=== PATIENT | female | born 1945 | race African-American/Black ===

== ENCOUNTER 2016-03-24 16:07 | Emergency (ER) | payer MEDICARE, BC ==
[~2016-03-24 16:07] MED LIST: /METO5TA PO; /QUIN20TA OR; ALTE2VL IV; AMLO10TA2 PO; AMLO5TAB OR; ASPI81TA83; ASPI81TA83 OR; ASPI81TA85 PO; AVEL1TAB PO; BACITAB3 PO; BYSTOLIC OR; CALC12502 OR; CALC1TAB30 PO; CALC600T10 PO; CALCI50TA PO; CARV12.5 OR; CARV12.5 PO; CARV25TA OR; CARV6.25 PO; CO Q-10 OR; CO Q1CAP PO; COENZYME Q 10; COLA100C2 OR; CORE12.5; CORE12.5 PO; DARV100T; DEMA20TA; DOCU100C PO; EPOG4000 IV; FLUC10TA PO; FOLI1TAB; FOLI1TAB OR; HAIR1CHW PO; HAIR1TAB5 PO; HEPA1010VL INJ; HUMA100I5 SC; HUMULIN 70/30; HYDR-4266 PO; HYDR25TA PO; INSUHUMDS SC; INSULIN 70/30 SC; INSULIN 70/30 SUBQ; INSULIN ASPART SC; IRON325T3 PO; ISOS30TA4 PO; LOSA100T36 PO; MAG400TA PO; METOPROLOL TARTRATE; MICO7CR PV; MIRA255PW PO; MULTIVIT; MULTIVIT OR; NATU400T PO; NEPH1CAP4 PO; OMEP20CA3 PO; OS-CAL; PERCOCET PO; POTA20TA PO; PRAV80TA2 PO; PRAVASTATIN OR; PRIL20CA; PRIL20CA OR; PROC IJ; ROZE8TAB9 PO; SENO8.6T9 PO; SPIR25TA2 OR; TRAM50TA2 PO; TRAMADOL; TYLE325T5 PO; VITA-130 PO; VITA10002 PO; VITA500C24 PO; VITA500T; VITA500T OR; VITA500T88 PO; VITMTA PO; ZOCO10TA; [UNRECOGNIZED DRUG - CODE]; [UNRECOGNIZED DRUG - CODE] OR; calcitrol PO; insulin aspart SC; novolog 70/30 SC
[2016-03-24 17:30] LABS: BASO % 0.2 % (0.0-1.0); EOS # 0.2 K/mm3 (0.0-0.50); EOS % 2.3 % (0.0-3.0); LARGE UNSTAINED CELL # 0.1 K/mm3 (0.0-0.4); LARGE UNSTAINED CELL % 1.9 % (0.0-4.0); LYMPH # 0.9 K/mm3 (1.5-4.5); LYMPH % 12.6 % (24.0-44.0); MEAN CORPUSCULAR HEMOGLOBIN 27.2 pg (27.0-33.0); MEAN CORPUSCULAR HGB CONC 30.1 g/dl (32.0-36.5); MEAN CORPUSCULAR VOLUME 90.3 fl (80.0-96.0); MONO # 0.3 K/mm3 (0.0-0.8); NEUTROPHILS # 5.5 K/mm3 (1.8-7.7); PLATELET COUNT, AUTOMATED 108 k/mm3 (150-450); RED CELL DISTRIBUTION WIDTH 18.2 % (11.5-14.5)
[2016-03-24 17:39] LABS: INR 0.9
[2016-03-24 17:56] LABS: ALBUMIN 3.5 GM/DL (3.2-5.2); ALBUMIN/GLOBULIN RATIO 0.92 (1.00-1.93); ALKALINE PHOSPHATASE 88 U/L (45-117); ALT/SGPT 21 U/L (12-78); AMYLASE 192 U/L (25-115); ANION GAP 8 MEQ/L (8-16); AST/SGOT 17 U/L (15-37); BILIRUBIN,DIRECT < 0.1 MG/DL (0.0-0.2); BILIRUBIN,TOTAL 0.2 MG/DL (0.2-1.0); BLOOD UREA NITROGEN 36 MG/DL (7-18); CALCIUM LEVEL 9.1 MG/DL (8.8-10.2); CARBON DIOXIDE LEVEL 32 MEQ/L (21-32); CHLORIDE LEVEL 99 MEQ/L (98-107); CREATININE FOR GFR 7.48 MG/DL (0.55-1.02); GLOMERULAR FILTRATION RATE 6.9 (>39); GLUCOSE, FASTING 193 MG/DL (83-110); POTASSIUM SERUM 4.8 MEQ/L (3.5-5.1); SODIUM LEVEL 139 MEQ/L (136-145); TOTAL PROTEIN 7.3 GM/DL (6.4-8.2)
--- NOTE | 2016-03-24 19:44 | EDDOCDS ---
Physician Documentation [facility] Name: Bree Acosta Age: 71 yrs Sex: Female : 1945 Arrival Date: 03/24/2016 Time: 16:07 Bed Family 1 Private MD: Ravindra Beth Disposition: 03/24/16 18:19 Discharged to Home/Self Care. Impression: Gastrointestinal hemorrhage, unspecified - rectal bleeding. - Condition is Stable. - Discharge Instructions: Gastrointestinal Bleeding, Gastrointestinal Bleeding, [id number]. - Medication Reconciliation, Local Pharmacy Hours form. - Follow up: Emergency Department; When: Tomorrow; Reason: Recheck today's complaints. - Problem is new. - Symptoms have improved. Historical: - Allergies: Crestor (muscle pain); Lipitor (muscle pain); Zocor (muscle pain); Lisinopril (itch); - Home Meds: 1. pravastatin 80 mg oral tab 1 tab nightly (Last dose: 03/23/2016) 2. Novolin 70/30 InnoLet 100 unit/mL (70-30) Sub-Q inpn 6 unit based on FSBS BID (Last dose: 03/24/2016 06:00) 3. calcium 600 mg nightly (Last dose: 03/23/2016) 4. Vitamin C 500 mg Oral tab nightly (Last dose: 03/23/2016) 5. multivitamin Oral cap 1 tablet nightly (Last dose: 03/23/2016) 6. aspirin 81 mg Oral tab 1 tab nightly (Last dose: 03/23/2016) 7. carvedilol 6.25 mg oral tab 1 tab 2 times per day (Last dose: 03/24/2016 09:00) 8. cyclobenzaprine 5 mg Oral tab 1 tab 3 times per day as needed (Last dose: Unknown) 9. tramadol 50 mg Oral tab 2 tabs every 6 hours (Last dose: 03/22/2016) 10. Protonix 40 mg Oral TbEC 1 tab nightly (Last dose: 03/23/2016) - PMHx: CAD; CHF; Diabetes - IDDM: controlled; Hypertension; Renal failure, on hemodialysis; [place]; Hiatal Hernia; gastric ulcer; - PSHx: CABG (June 2009); Hysterectomy; Dialysis Graft Construction, Arm; - Social history: Smoking status: Patient states former smoker of tobacco. No barriers to communication noted, The patient speaks fluent Latvian. - Family history: Not pertinent. - : The pt / caregiver states he / she is not on anticoagulants. Home medication list is obtained from the patient. - Exposure Risk Screening:: None identified. Vital Signs: 03/24 16:08 BP 165 / 83; Pulse 86; Resp 18; Temp 99.2(O); Pulse Ox 96% on R/A; Weight 68.49 kg / elp 150.99 lbs; Height 5 ft. 5 in. (165.10 cm); Pain 8/10; 17:22 BP 193 / 95 (auto/); jo3 17:22 Pulse Ox 99% ; jo3 17:52 BP 180 / 83 (auto/); jo3 17:52 Pulse Ox 97% ; jo3 18:07 BP 192 / 88 (auto/); jo3 18:07 Pulse 70 MON; jo3 18:22 BP 186 / 86 (auto/); jo3 18:22 Pulse 88 MON; jo3 18:37 Pulse 92 MON; jo3 18:37 BP 156 / 88 (auto/); Resp 16; Temp 98.9(O); Pulse Ox 97% on R/A; jo3 16:08 Body Mass Index 25.13 (68.49 kg, 165.10 cm) elp MDM: 16:16 Orthostatic VS ordered. sd1 16:16 Undress patient appropriately for examination ordered. sd1 16:16 Head Of Training And Development/Pulse Ox/q 30 min VS ordered. sd1 16:17 NOTHING BY MOUTH+DIET ordered. EDMS 16:18 PT/INR Ordered. EDMS 16:18 Amylase Ordered. EDMS 16:18 Basic Metabolic Profile Ordered. EDMS 16:18 CBC with Diff Ordered. EDMS 16:18 Lipase Ordered. EDMS 16:18 Liver Profile Ordered. EDMS 16:19 Type & Screen Ordered. EDMS 16:56 Misc. Nursing Order ordered. sd1 17:46 CBC with Diff Reviewed. sd1 17:46 PT/INR Reviewed. sd1 18:11 Amylase Reviewed. sd1 18:11 Basic Metabolic Profile Reviewed. sd1 18:11 Lipase Reviewed. sd1 18:11 Liver Profile Reviewed. sd1 18:11 Type & Screen Reviewed. sd1 18:12 Fluid Challenge ordered. sd1 18:39 Type & Screen Reviewed. sd1 19:11 Financial registration complete. ks16 19:13 [facility] Payment Agreement was scanned into [employer] and attached to record. [email or web address] Signatures: Dispatcher [employer] Juana Cerna MD MD sd1 Nolvia Ochoa RN RN Alexandra ReedRN RN prashant3 Natalee Chacon, Reg Reg ks16 The chart was reviewed and I authenticate all verbal orders and agree with the evaluation and treatment provided.Attachments: 19:13 [facility] Payment Agreement ks16 MTDD
--- NOTE | 2016-03-24 19:44 | EDDOCDS ---
Nurse's Notes [facility] Name: Bree Acosta Age: 71 yrs Sex: Female : 1945 Arrival Date: 03/24/2016 Time: 16:07 Bed Family 1 Private MD: Ravindra Beth Diagnosis: Gastrointestinal hemorrhage, unspecified-rectal bleeding Presentation: 03/24 16:14 Presenting complaint: Patient states: abdominal pain since yesterday, bloody stool with kpj clots x 1 this morning. Adult Sepsis Screening: The patient does not have new or worsening altered mentation. Patient's respiratory rate is less than 22. Systolic blood pressure is greater than 100. Patient has a qSOFA score of 0- Negative Sepsis Screen. Suicide/Homicide risk assessment- the patient denies having any suicidal and/or homicidal ideations and does not present with any other emotional, behavioral or mental health complaints. Status: Patient is not a surgical services manager or dependent. Transition of care: patient was received from a primary care office; [facility]. 16:14 Acuity: SHEBA Level 3 [facility] 16:14 Method Of Arrival: Walkin/Carried/Asstd [facility] Triage Assessment: 16:26 General: Appears in no apparent distress, Behavior is appropriate for age, pleasant. j Pain: Location: left upper quadrant and left lower quadrant Pain currently is 8 out of 10 on a pain scale. Neurological: Level of Consciousness is awake, alert, Oriented to person, place, time. Respiratory: Airway is patent Respiratory effort is even, unlabored. GI: Reports bloody stools lower abdominal pain, upper abdominal pain, nausea, Pain is 8 out of 10 on a pain scale. Derm: Skin is pink, warm & dry. Historical: - Allergies: Crestor (muscle pain); Lipitor (muscle pain); Zocor (muscle pain); Lisinopril (itch); - Home Meds: 1. pravastatin 80 mg oral tab 1 tab nightly (Last dose: 03/23/2016) 2. Novolin 70/30 InnoLet 100 unit/mL (70-30) Sub-Q inpn 6 unit based on FSBS BID (Last dose: 03/24/2016 06:00) 3. calcium 600 mg nightly (Last dose: 03/23/2016) 4. Vitamin C 500 mg Oral tab nightly (Last dose: 03/23/2016) 5. multivitamin Oral cap 1 tablet nightly (Last dose: 03/23/2016) 6. aspirin 81 mg Oral tab 1 tab nightly (Last dose: 03/23/2016) 7. carvedilol 6.25 mg oral tab 1 tab 2 times per day (Last dose: 03/24/2016 09:00) 8. cyclobenzaprine 5 mg Oral tab 1 tab 3 times per day as needed (Last dose: Unknown) 9. tramadol 50 mg Oral tab 2 tabs every 6 hours (Last dose: 03/22/2016) 10. Protonix 40 mg Oral TbEC 1 tab nightly (Last dose: 03/23/2016) - PMHx: CAD; CHF; Diabetes - IDDM: controlled; Hypertension; Renal failure, on hemodialysis; [place]; Hiatal Hernia; gastric ulcer; - PSHx: CABG (June 2009); Hysterectomy; Dialysis Graft Construction, Arm; - Social history: Smoking status: Patient states former smoker of tobacco. No barriers to communication noted, The patient speaks fluent Zambian. - Family history: Not pertinent. - : The pt / caregiver states he / she is not on anticoagulants. Home medication list is obtained from the patient. - Exposure Risk Screening:: None identified. Screenin:10 Fall risk: No risks identified. Assistance ADL's: requires no assistance with jo3 activities of daily living. Abuse/DV Screen: The patient / caregiver reports he/she is: not in a situation that causes fear, pain or injury. Nutritional screening: No deficits noted. Advance Directives: There is no active DNR order. home support is adequate. 19:39 Screening information is obtained from the patient. jo3 Assessment: 17:15 General: Appears in no apparent distress, comfortable, Behavior is appropriate for age, jo3 cooperative, pleasant. Neurological: Level of Consciousness is awake, alert, Oriented to person, place, time. Cardiovascular: Rhythm is sinus rhythm. Cardiovascular: dialysis fistula to left upper extremity. Respiratory: No deficits noted. Airway is patent Respiratory effort is even, unlabored. GI: Abdomen is non- distended Bowel sounds present X 4 quads. Abd is soft X 4 quads Abd is non tender X 4 quads Reports nausea, diffuse abdominal discomfort. and bloody stools x1 this morning. Derm: Skin is intact, Skin is dry, Skin is normal, Skin temperature is warm. 18:15 Reassessment: Patient appears in no apparent distress at this time. No significant jo3 changes noted at this time. Awaiting results for disposition. Aware of plan of care . 18:40 General: Appears in no apparent distress, comfortable, Behavior is appropriate for age, jo3 cooperative, pleasant. Neurological: Level of Consciousness is awake, alert, Oriented to person, place, time. Respiratory: No deficits noted. Airway is patent Respiratory effort is even, unlabored. Vital Signs: 16:08 BP 165 / 83; Pulse 86; Resp 18; Temp 99.2(O); Pulse Ox 96% on R/A; Weight 68.49 kg; elp Height 5 ft. 5 in. (165.10 cm); Pain 8/10; 17:22 BP 193 / 95 (auto/); jo3 17:22 Pulse Ox 99% ; jo3 17:52 BP 180 / 83 (auto/); jo3 17:52 Pulse Ox 97% ; jo3 18:07 BP 192 / 88 (auto/); jo3 18:07 Pulse 70 MON; jo3 18:22 BP 186 / 86 (auto/); jo3 18:22 Pulse 88 MON; jo3 18:37 Pulse 92 MON; jo3 18:37 BP 156 / 88 (auto/); Resp 16; Temp 98.9(O); Pulse Ox 97% on R/A; jo3 16:08 Body Mass Index 25.13 (68.49 kg, 165.10 cm) [facility] Vitals: 16:08 Log In Time: March 24, 2016 at 16:05. [facility] ED Course: 16:08 Patient visited by Amanda Pitts PCA. elp 16:08 Ravindra Beth is Private Physician. elp 16:08 Patient moved to Waiting elp 16:10 Patient visited by Amanda Pitts PCA. elp 16:10 Patient moved to Pre RCE elp 16:15 Triage Initiated [facility] 16:28 Patient moved to 6 [facility] 16:34 Juana Urias MD is Attending Physician. sd1 16:55 Patient visited by Juana Urias MD. sd1 17:15 Inserted saline lock: 20 gauge in right antecubital area. Labs drawn. (by ED staff). jo3 Sent per order to lab. 17:24 Patient visited by Arti Teran PCA. ct3 17:24 Accompanied by Family Member, Patient has correct armband on for positive ct3 identification. Placed in gown. Bed in low position. Call light in reach. Side rails up X2. monitoring manager on. Pulse ox on. NIBP on. 17:57 Patient visited by Alexandra Fiore RN. jo3 18:10 The patient / caregiver is instructed regarding the plan of care and ED course. jo3 18:13 Assisted Provider with Rectal exam. lf1 18:37 Discontinued IV lock intact, bleeding controlled, pressure dressing applied, No jo3 redness/swelling at site. 19:13 [facility] Payment Agreement was scanned into [employer] and attached to record. ks16 19:27 Patient moved to Family 1 ml3 Order Results: Lab Order: Type & Screen; [facility]' 03/24/16 17:18 Test: BLOOD TYPE; Value: O POS; Status: F Test: AB SCREEN (INDIRECT FABRIZIO)GEL; Value: NEGATIVE; Status: F Lab Order: PT/INR; [facility]' 03/24/16 17:18 Test: PROTHROMBIN TIME; Value: 12.3; Range: 12.3-14.5; Units: SECONDS; Status: F Test: INR; Value: 0.90; Status: F Test Note: ; THERAPUTIC HUMAN INR VALUES INDICATIONS NORMAL RANGES PROPHYLAXIS/TREATMENT OF: VENOUS THROMBOSIS 2.0-3.0 PULMONARY EMBOLISM 2.0-3.0 PREVENTION OF SYSTEMIC EMBOLISM FROM: TISSUE HEART VALVES 2.0-3.0 ACUTE MYOCARDIAL INFARCTION 2.0-3.0 VALVULAR HEART DISEASE 2.0-3.0 ATRIAL FIBRILLATION 2.0-3.0 MECHANICAL VALVES(HIGH RISK) 2.5-3.5 RECURRENT MYOCARDIAL INFARCTION 2.5-3.5 Lab Order: Amylase; SPEC' 03/24/16 17:18 Test: AMYLASE; Value: 192; Range: 25-115; Abnormal: Above high normal; Units: U/L; Status: F Lab Order: Basic Metabolic Profile; [facility]' 03/24/16 17:18 Test: GLUCOSE, FASTING; Value: 193; Range: 83-110; Abnormal: Above high normal; Units: MG/DL; Status: F Test: BLOOD UREA NITROGEN; Value: 36; Range: 7-18; Abnormal: Above high normal; Units: MG/DL; Status: F Test: CREATININE FOR GFR; Value: 7.48; Range: 0.55-1.02; Abnormal: Above high normal; Units: MG/DL; Status: F Test: GLOMERULAR FILTRATION RATE; Value: 6.9; Range: >39; Abnormal: Below low normal; Status: F Test: SODIUM LEVEL; Value: 139; Range: 136-145; Units: MEQ/L; Status: F Test: POTASSIUM SERUM; Value: 4.8; Range: 3.5-5.1; Units: MEQ/L; Status: F Test: CHLORIDE LEVEL; Value: 99; Range: 98-107; Units: MEQ/L; Status: F Test: CARBON DIOXIDE LEVEL; Value: 32; Range: 21-32; Units: MEQ/L; Status: F Test: ANION GAP; Value: 8; Range: 8-16; Units: MEQ/L; Status: F Test: CALCIUM LEVEL; Value: 9.1; Range: 8.8-10.2; Units: MG/DL; Status: F Test Note: ; Units are mL/min/1.73 m2 Chronic Kidney Disease Staging per NKF: Stage I & II GFR >=60 Normal to Mildly Decreased Stage III GFR 30-59 Moderately Decreased Stage IV GFR 15-29 Severely Decreased Stage V GFR <15 Very Little GFR Left ESRD GFR <15 on TECHNICAL TRAINING MANAGER Lab Order: CBC with Diff; SPEC'M 03/24/16 17:18 Test: WHITE BLOOD COUNT; Value: 7.0; Range: 4.0-10.0; Units: K/mm3; Status: F Test: RED BLOOD COUNT; Value: 4.31; Range: 4.00-5.40; Units: M/mm3; Status: F Test: HEMOGLOBIN; Value: 11.7; Range: 12.0-16.0; Abnormal: Below low normal; Units: g/dl; Status: F Test: HEMATOCRIT; Value: 38.9; Range: 36.0-47.0; Units: %; Status: F Test: MEAN CORPUSCULAR VOLUME; Value: 90.3; Range: 80.0-96.0; Units: fl; Status: F Test: MEAN CORPUSCULAR HEMOGLOBIN; Value: 27.2; Range: 27.0-33.0; Units: pg; Status: F Test: MEAN CORPUSCULAR HGB CONC; Value: 30.1; Range: 32.0-36.5; Abnormal: Below low normal; Units: g/dl; Status: F Test: RED CELL DISTRIBUTION WIDTH; Value: 18.2; Range: 11.5-14.5; Abnormal: Above high normal; Units: %; Status: F Test: PLATELET COUNT, AUTOMATED; Value: 108; Range: 150-450; Abnormal: Below low normal; Units: k/mm3; Status: F Test: NEUTROPHILS %; Value: 79.0; Range: 36.0-66.0; Abnormal: Above high normal; Units: %; Status: F Test: LYMPH %; Value: 12.6; Range: 24.0-44.0; Abnormal: Below low normal; Units: %; Status: F Test: MONO %; Value: 4.0; Range: 0.0-5.0; Units: %; Status: F Test: EOS %; Value: 2.3; Range: 0.0-3.0; Units: %; Status: F Test: BASO %; Value: 0.2; Range: 0.0-1.0; Units: %; Status: F Test: LARGE UNSTAINED CELL %; Value: 1.9; Range: 0.0-4.0; Units: %; Status: F Test: NEUTROPHILS #; Value: 5.5; Range: 1.8-7.7; Units: K/mm3; Status: F Test: LYMPH #; Value: 0.9; Range: 1.5-4.5; Abnormal: Below low normal; Units: K/mm3; Status: F Test: MONO #; Value: 0.3; Range: 0.0-0.8; Units: K/mm3; Status: F Test: EOS #; Value: 0.2; Range: 0.0-0.50; Units: K/mm3; Status: F Test: BASO #; Value: 0.0; Range: 0.0-0.2; Units: K/mm3; Status: F Test: LARGE UNSTAINED CELL #; Value: 0.1; Range: 0.0-0.4; Units: K/mm3; Status: F Lab Order: Lipase; SPEC'M 03/24/16 17:18 Test: LIPASE; Value: 875; Range: 73-393; Abnormal: Above high normal; Units: U/L; Status: F Lab Order: Liver Profile; SPEC'M 03/24/16 17:18 Test: AST/SGOT; Value: 17; Range: 15-37; Units: U/L; Status: F Test: ALT/SGPT; Value: 21; Range: 12-78; Units: U/L; Status: F Test: ALKALINE PHOSPHATASE; Value: 88; Range: 45-117; Units: U/L; Status: F Test: BILIRUBIN,TOTAL; Value: 0.2; Range: 0.2-1.0; Units: MG/DL; Status: F Test: BILIRUBIN,DIRECT; Value: < 0.1; Range: 0.0-0.2; Units: MG/DL; Status: F Test: TOTAL PROTEIN; Value: 7.3; Range: 6.4-8.2; Units: GM/DL; Status: F Test: ALBUMIN; Value: 3.5; Range: 3.2-5.2; Units: GM/DL; Status: F Test: ALBUMIN/GLOBULIN RATIO; Value: 0.92; Range: 1.00-1.93; Abnormal: Below low normal; Status: F Outcome: 18:19 Discharge ordered by Provider. sd1 18:40 Discharge Assessment: Patient awake, alert and oriented x 3. No cognitive and/or jo3 functional deficits noted. Patient verbalized understanding of disposition instructions. patient administered narcotics - no. The following High Risk Discharge criteria are identified: None. Discharged to home ambulatory, with family. Condition: stable. Discharge instructions given to patient, Instructed on discharge instructions, follow up and referral plans. Demonstrated understanding of instructions, Pt was receptive of discharge instructions/ teaching. No special radiology studies were completed. Property sent home with patient. 19:43 Patient left the ED. jo3 Signatures: Juana Urias MD MD sd1 Nolvia Ochoa, RN RN [facility] Francie Jones, Golf Range Attendant Unit ml3 Alexandra FioreRN RN jo3 Darby Wagner RN RN 1 Arti Teran, GASTROENTEROLOGY PHYSICIAN GASTROENTEROLOGY PHYSICIAN ct3 Amanda Pitts, GASTROENTEROLOGY PHYSICIAN GASTROENTEROLOGY PHYSICIAN elp Natalee Chacon, Reg Reg ks16 Corrections: (The following items were deleted from the chart) 16:16 16:14 Transition of care: patient was not received from another setting of care. kpj kpj MTDD
--- NOTE | 2016-03-26 20:44 | EDDOCDS ---
Physician Documentation [facility] Name: Bree Acosta Age: 71 yrs Sex: Female : 1945 Arrival Date: 03/24/2016 Time: 16:07 Bed Family 1 Private MD: Ravindra Beth Disposition: 03/24/16 18:19 Discharged to Home/Self Care. Impression: Gastrointestinal hemorrhage, unspecified - rectal bleeding. - Condition is Stable. - Discharge Instructions: Gastrointestinal Bleeding, Gastrointestinal Bleeding, [id number]. - Medication Reconciliation, Local Pharmacy Hours form. - Follow up: Emergency Department; When: Tomorrow; Reason: Recheck today's complaints. - Problem is new. - Symptoms have improved. Historical: - Allergies: Crestor (muscle pain); Lipitor (muscle pain); Zocor (muscle pain); Lisinopril (itch); - Home Meds: 1. pravastatin 80 mg oral tab 1 tab nightly (Last dose: 03/23/2016) 2. Novolin 70/30 InnoLet 100 unit/mL (70-30) Sub-Q inpn 6 unit based on FSBS BID (Last dose: 03/24/2016 06:00) 3. calcium 600 mg nightly (Last dose: 03/23/2016) 4. Vitamin C 500 mg Oral tab nightly (Last dose: 03/23/2016) 5. multivitamin Oral cap 1 tablet nightly (Last dose: 03/23/2016) 6. aspirin 81 mg Oral tab 1 tab nightly (Last dose: 03/23/2016) 7. carvedilol 6.25 mg oral tab 1 tab 2 times per day (Last dose: 03/24/2016 09:00) 8. cyclobenzaprine 5 mg Oral tab 1 tab 3 times per day as needed (Last dose: Unknown) 9. tramadol 50 mg Oral tab 2 tabs every 6 hours (Last dose: 03/22/2016) 10. Protonix 40 mg Oral TbEC 1 tab nightly (Last dose: 03/23/2016) - PMHx: CAD; CHF; Diabetes - IDDM: controlled; Hypertension; Renal failure, on hemodialysis; [place]; Hiatal Hernia; gastric ulcer; - PSHx: CABG (June 2009); Hysterectomy; Dialysis Graft Construction, Arm; - Social history: Smoking status: Patient states former smoker of tobacco. No barriers to communication noted, The patient speaks fluent Bangladeshi. - Family history: Not pertinent. - : The pt / caregiver states he / she is not on anticoagulants. Home medication list is obtained from the patient. - Exposure Risk Screening:: None identified. Vital Signs: 03/24 16:08 BP 165 / 83; Pulse 86; Resp 18; Temp 99.2(O); Pulse Ox 96% on R/A; Weight 68.49 kg / elp 150.99 lbs; Height 5 ft. 5 in. (165.10 cm); Pain 8/10; 17:22 BP 193 / 95 (auto/); jo3 17:22 Pulse Ox 99% ; jo3 17:52 BP 180 / 83 (auto/); jo3 17:52 Pulse Ox 97% ; jo3 18:07 BP 192 / 88 (auto/); jo3 18:07 Pulse 70 MON; jo3 18:22 BP 186 / 86 (auto/); jo3 18:22 Pulse 88 MON; jo3 18:37 Pulse 92 MON; jo3 18:37 BP 156 / 88 (auto/); Resp 16; Temp 98.9(O); Pulse Ox 97% on R/A; jo3 16:08 Body Mass Index 25.13 (68.49 kg, 165.10 cm) elp MDM: 16:16 Orthostatic VS ordered. sd1 16:16 Undress patient appropriately for examination ordered. sd1 16:16 Sand Polisher/Pulse Ox/q 30 min VS ordered. sd1 16:17 NOTHING BY MOUTH+DIET ordered. EDMS 16:18 PT/INR Ordered. EDMS 16:18 Amylase Ordered. EDMS 16:18 Basic Metabolic Profile Ordered. EDMS 16:18 CBC with Diff Ordered. EDMS 16:18 Lipase Ordered. EDMS 16:18 Liver Profile Ordered. EDMS 16:19 Type & Screen Ordered. EDMS 16:56 Misc. Nursing Order ordered. sd1 17:46 CBC with Diff Reviewed. sd1 17:46 PT/INR Reviewed. sd1 18:11 Amylase Reviewed. sd1 18:11 Basic Metabolic Profile Reviewed. sd1 18:11 Lipase Reviewed. sd1 18:11 Liver Profile Reviewed. sd1 18:11 Type & Screen Reviewed. sd1 18:12 Fluid Challenge ordered. sd1 18:39 Type & Screen Reviewed. sd1 19:11 Financial registration complete. ks 19:13 REPLACED BY [facility] Payment Agreement was scanned into [employer] and attached to record. 03/25 08:56 T-Sheet-- Draft Copy was scanned into [employer] and attached to record. gb Signatures: Dispatcher [employer] EDJuana Austin MD MD sd1 Nolvia Ochoa RN RN Noa Rodriguez, Reg Reg gb Alexandra Fiore RN RN jo3 Natalee Chacon, Reg Reg ks16 The chart was reviewed and I authenticate all verbal orders and agree with the evaluation and treatment provided.Attachments: 03/24 19:13 REPLACED BY [facility] Payment Agreement 03/25 08:56 T-Sheet-- Draft Copy gb Chart Complete MTDD
--- NOTE | 2016-03-26 20:44 | EDDOCDS ---
Nurse's Notes [facility] Name: Bree Acosta Age: 71 yrs Sex: Female : 1945 Arrival Date: 03/24/2016 Time: 16:07 Bed Family 1 Private MD: Ravindra Beth Diagnosis: Gastrointestinal hemorrhage, unspecified-rectal bleeding Presentation: 03/24 16:14 Presenting complaint: Patient states: abdominal pain since yesterday, bloody stool with kpj clots x 1 this morning. Adult Sepsis Screening: The patient does not have new or worsening altered mentation. Patient's respiratory rate is less than 22. Systolic blood pressure is greater than 100. Patient has a qSOFA score of 0- Negative Sepsis Screen. Suicide/Homicide risk assessment- the patient denies having any suicidal and/or homicidal ideations and does not present with any other emotional, behavioral or mental health complaints. 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 Transition of care: patient was received from a primary care office; [facility]. 16:14 Acuity: SHEBA Level 3 [facility] 16:14 Method Of Arrival: Walkin/Carried/Asstd [facility] Triage Assessment: 16:26 General: Appears in no apparent distress, Behavior is appropriate for age, pleasant. j Pain: Location: left upper quadrant and left lower quadrant Pain currently is 8 out of 10 on a pain scale. Neurological: Level of Consciousness is awake, alert, Oriented to person, place, time. Respiratory: Airway is patent Respiratory effort is even, unlabored. GI: Reports bloody stools lower abdominal pain, upper abdominal pain, nausea, Pain is 8 out of 10 on a pain scale. Derm: Skin is pink, warm & dry. Historical: - Allergies: Crestor (muscle pain); Lipitor (muscle pain); Zocor (muscle pain); Lisinopril (itch); - Home Meds: 1. pravastatin 80 mg oral tab 1 tab nightly (Last dose: 03/23/2016) 2. Novolin 70/30 InnoLet 100 unit/mL (70-30) Sub-Q inpn 6 unit based on FSBS BID (Last dose: 03/24/2016 06:00) 3. calcium 600 mg nightly (Last dose: 03/23/2016) 4. Vitamin C 500 mg Oral tab nightly (Last dose: 03/23/2016) 5. multivitamin Oral cap 1 tablet nightly (Last dose: 03/23/2016) 6. aspirin 81 mg Oral tab 1 tab nightly (Last dose: 03/23/2016) 7. carvedilol 6.25 mg oral tab 1 tab 2 times per day (Last dose: 03/24/2016 09:00) 8. cyclobenzaprine 5 mg Oral tab 1 tab 3 times per day as needed (Last dose: Unknown) 9. tramadol 50 mg Oral tab 2 tabs every 6 hours (Last dose: 03/22/2016) 10. Protonix 40 mg Oral TbEC 1 tab nightly (Last dose: 03/23/2016) - PMHx: CAD; CHF; Diabetes - IDDM: controlled; Hypertension; Renal failure, on hemodialysis; [place]; Hiatal Hernia; gastric ulcer; - PSHx: CABG (June 2009); Hysterectomy; Dialysis Graft Construction, Arm; - Social history: Smoking status: Patient states former smoker of tobacco. No barriers to communication noted, The patient speaks fluent Montserratian. - Family history: Not pertinent. - : The pt / caregiver states he / she is not on anticoagulants. Home medication list is obtained from the patient. - Exposure Risk Screening:: None identified. Screenin:10 Fall risk: No risks identified. Assistance ADL's: requires no assistance with jo3 activities of daily living. Abuse/DV Screen: The patient / caregiver reports he/she is: not in a situation that causes fear, pain or injury. Nutritional screening: No deficits noted. Advance Directives: There is no active DNR order. home support is adequate. 19:39 Screening information is obtained from the patient. jo3 Assessment: 17:15 General: Appears in no apparent distress, comfortable, Behavior is appropriate for age, jo3 cooperative, pleasant. Neurological: Level of Consciousness is awake, alert, Oriented to person, place, time. Cardiovascular: Rhythm is sinus rhythm. Cardiovascular: dialysis fistula to left upper extremity. Respiratory: No deficits noted. Airway is patent Respiratory effort is even, unlabored. GI: Abdomen is non- distended Bowel sounds present X 4 quads. Abd is soft X 4 quads Abd is non tender X 4 quads Reports nausea, diffuse abdominal discomfort. and bloody stools x1 this morning. Derm: Skin is intact, Skin is dry, Skin is normal, Skin temperature is warm. 18:15 Reassessment: Patient appears in no apparent distress at this time. No significant jo3 changes noted at this time. Awaiting results for disposition. Aware of plan of care . 18:40 General: Appears in no apparent distress, comfortable, Behavior is appropriate for age, jo3 cooperative, pleasant. Neurological: Level of Consciousness is awake, alert, Oriented to person, place, time. Respiratory: No deficits noted. Airway is patent Respiratory effort is even, unlabored. Vital Signs: 16:08 BP 165 / 83; Pulse 86; Resp 18; Temp 99.2(O); Pulse Ox 96% on R/A; Weight 68.49 kg; elp Height 5 ft. 5 in. (165.10 cm); Pain 8/10; 17:22 BP 193 / 95 (auto/); jo3 17:22 Pulse Ox 99% ; jo3 17:52 BP 180 / 83 (auto/); jo3 17:52 Pulse Ox 97% ; jo3 18:07 BP 192 / 88 (auto/); jo3 18:07 Pulse 70 MON; jo3 18:22 BP 186 / 86 (auto/); jo3 18:22 Pulse 88 MON; jo3 18:37 Pulse 92 MON; jo3 18:37 BP 156 / 88 (auto/); Resp 16; Temp 98.9(O); Pulse Ox 97% on R/A; jo3 16:08 Body Mass Index 25.13 (68.49 kg, 165.10 cm) [facility] Vitals: 16:08 Log In Time: March 24, 2016 at 16:05. [facility] ED Course: 16:08 Patient visited by Amanda Pitts PCA. elp 16:08 Ravindra Beth is Private Physician. elp 16:08 Patient moved to Waiting elp 16:10 Patient visited by Amanda Pitts PCA. elp 16:10 Patient moved to Pre RCE elp 16:15 Triage Initiated [facility] 16:28 Patient moved to 6 [facility] 16:34 Juana Urias MD is Attending Physician. sd1 16:55 Patient visited by Juana Urias MD. sd1 17:15 Inserted saline lock: 20 gauge in right antecubital area. Labs drawn. (by ED staff). jo3 Sent per order to lab. 17:24 Patient visited by Arti Teran PCA. ct3 17:24 Accompanied by Family Member, Patient has correct armband on for positive ct3 identification. Placed in gown. Bed in low position. Call light in reach. Side rails up X2. clinical research monitor on. Pulse ox on. NIBP on. 17:57 Patient visited by Alexandra Fiore RN. jo3 18:10 The patient / caregiver is instructed regarding the plan of care and ED course. jo3 18:13 Assisted Provider with Rectal exam. lf1 18:37 Discontinued IV lock intact, bleeding controlled, pressure dressing applied, No jo3 redness/swelling at site. 19:13 [facility] [place] Agreement was scanned into [employer] and attached to record. ks16 19:27 Patient moved to Family 1 ml3 03/25 08:56 T-Sheet-- Draft Copy was scanned into [employer] and attached to record. gb Order Results: Lab Order: Type & Screen; [facility]' 03/24/16 17:18 Test: BLOOD TYPE; Value: O POS; Status: F Test: AB SCREEN (INDIRECT FABRIZIO)GEL; Value: NEGATIVE; Status: F Lab Order: PT/INR; [facility]' 03/24/16 17:18 Test: PROTHROMBIN TIME; Value: 12.3; Range: 12.3-14.5; Units: SECONDS; Status: F Test: INR; Value: 0.90; Status: F Test Note: ; THERAPUTIC HUMAN INR VALUES INDICATIONS NORMAL RANGES PROPHYLAXIS/TREATMENT OF: VENOUS THROMBOSIS 2.0-3.0 PULMONARY EMBOLISM 2.0-3.0 PREVENTION OF SYSTEMIC EMBOLISM FROM: TISSUE HEART VALVES 2.0-3.0 ACUTE MYOCARDIAL INFARCTION 2.0-3.0 VALVULAR HEART DISEASE 2.0-3.0 ATRIAL FIBRILLATION 2.0-3.0 MECHANICAL VALVES(HIGH RISK) 2.5-3.5 RECURRENT MYOCARDIAL INFARCTION 2.5-3.5 Lab Order: Amylase; SPEC' 03/24/16 17:18 Test: AMYLASE; Value: 192; Range: 25-115; Abnormal: Above high normal; Units: U/L; Status: F Lab Order: Basic Metabolic Profile; SPEC' 03/24/16 17:18 Test: GLUCOSE, FASTING; Value: 193; Range: 83-110; Abnormal: Above high normal; Units: MG/DL; Status: F Test: BLOOD UREA NITROGEN; Value: 36; Range: 7-18; Abnormal: Above high normal; Units: MG/DL; Status: F Test: CREATININE FOR GFR; Value: 7.48; Range: 0.55-1.02; Abnormal: Above high normal; Units: MG/DL; Status: F Test: GLOMERULAR FILTRATION RATE; Value: 6.9; Range: >39; Abnormal: Below low normal; Status: F Test: SODIUM LEVEL; Value: 139; Range: 136-145; Units: MEQ/L; Status: F Test: POTASSIUM SERUM; Value: 4.8; Range: 3.5-5.1; Units: MEQ/L; Status: F Test: CHLORIDE LEVEL; Value: 99; Range: 98-107; Units: MEQ/L; Status: F Test: CARBON DIOXIDE LEVEL; Value: 32; Range: 21-32; Units: MEQ/L; Status: F Test: ANION GAP; Value: 8; Range: 8-16; Units: MEQ/L; Status: F Test: CALCIUM LEVEL; Value: 9.1; Range: 8.8-10.2; Units: MG/DL; Status: F Test Note: ; Units are mL/min/1.73 m2 Chronic Kidney Disease Staging per NKF: Stage I & II GFR >=60 Normal to Mildly Decreased Stage III GFR 30-59 Moderately Decreased Stage IV GFR 15-29 Severely Decreased Stage V GFR <15 Very Little GFR Left ESRD GFR <15 on TUBE COVERER Lab Order: CBC with Diff; SPEC'M 03/24/16 17:18 Test: WHITE BLOOD COUNT; Value: 7.0; Range: 4.0-10.0; Units: K/mm3; Status: F Test: RED BLOOD COUNT; Value: 4.31; Range: 4.00-5.40; Units: M/mm3; Status: F Test: HEMOGLOBIN; Value: 11.7; Range: 12.0-16.0; Abnormal: Below low normal; Units: g/dl; Status: F Test: HEMATOCRIT; Value: 38.9; Range: 36.0-47.0; Units: %; Status: F Test: MEAN CORPUSCULAR VOLUME; Value: 90.3; Range: 80.0-96.0; Units: fl; Status: F Test: MEAN CORPUSCULAR HEMOGLOBIN; Value: 27.2; Range: 27.0-33.0; Units: pg; Status: F Test: MEAN CORPUSCULAR HGB CONC; Value: 30.1; Range: 32.0-36.5; Abnormal: Below low normal; Units: g/dl; Status: F Test: RED CELL DISTRIBUTION WIDTH; Value: 18.2; Range: 11.5-14.5; Abnormal: Above high normal; Units: %; Status: F Test: PLATELET COUNT, AUTOMATED; Value: 108; Range: 150-450; Abnormal: Below low normal; Units: k/mm3; Status: F Test: NEUTROPHILS %; Value: 79.0; Range: 36.0-66.0; Abnormal: Above high normal; Units: %; Status: F Test: LYMPH %; Value: 12.6; Range: 24.0-44.0; Abnormal: Below low normal; Units: %; Status: F Test: MONO %; Value: 4.0; Range: 0.0-5.0; Units: %; Status: F Test: EOS %; Value: 2.3; Range: 0.0-3.0; Units: %; Status: F Test: BASO %; Value: 0.2; Range: 0.0-1.0; Units: %; Status: F Test: LARGE UNSTAINED CELL %; Value: 1.9; Range: 0.0-4.0; Units: %; Status: F Test: NEUTROPHILS #; Value: 5.5; Range: 1.8-7.7; Units: K/mm3; Status: F Test: LYMPH #; Value: 0.9; Range: 1.5-4.5; Abnormal: Below low normal; Units: K/mm3; Status: F Test: MONO #; Value: 0.3; Range: 0.0-0.8; Units: K/mm3; Status: F Test: EOS #; Value: 0.2; Range: 0.0-0.50; Units: K/mm3; Status: F Test: BASO #; Value: 0.0; Range: 0.0-0.2; Units: K/mm3; Status: F Test: LARGE UNSTAINED CELL #; Value: 0.1; Range: 0.0-0.4; Units: K/mm3; Status: F Lab Order: Lipase; SPEC'M 03/24/16 17:18 Test: LIPASE; Value: 875; Range: 73-393; Abnormal: Above high normal; Units: U/L; Status: F Lab Order: Liver Profile; SPEC'M 03/24/16 17:18 Test: AST/SGOT; Value: 17; Range: 15-37; Units: U/L; Status: F Test: ALT/SGPT; Value: 21; Range: 12-78; Units: U/L; Status: F Test: ALKALINE PHOSPHATASE; Value: 88; Range: 45-117; Units: U/L; Status: F Test: BILIRUBIN,TOTAL; Value: 0.2; Range: 0.2-1.0; Units: MG/DL; Status: F Test: BILIRUBIN,DIRECT; Value: < 0.1; Range: 0.0-0.2; Units: MG/DL; Status: F Test: TOTAL PROTEIN; Value: 7.3; Range: 6.4-8.2; Units: GM/DL; Status: F Test: ALBUMIN; Value: 3.5; Range: 3.2-5.2; Units: GM/DL; Status: F Test: ALBUMIN/GLOBULIN RATIO; Value: 0.92; Range: 1.00-1.93; Abnormal: Below low normal; Status: F Outcome: 03/24 18:19 Discharge ordered by Provider. sd1 18:40 Discharge Assessment: Patient awake, alert and oriented x 3. No cognitive and/or jo3 functional deficits noted. Patient verbalized understanding of disposition instructions. patient administered narcotics - no. The following High Risk Discharge criteria are identified: None. Discharged to home ambulatory, with family. Condition: stable. Discharge instructions given to patient, Instructed on discharge instructions, follow up and referral plans. Demonstrated understanding of instructions, Pt was receptive of discharge instructions/ teaching. No special radiology studies were completed. Property sent home with patient. 19:43 Patient left the ED. jo3 Signatures: Juana Urias MD MD sd1 Nolvia Ochoa RN RN Noa Rodriguez, Reg Reg gb Francie Jones, Meat Sales And Storage Manager Unit ml3 Alexandra Fiore,RN RN jo3 Darby WagnerRN RN lf1 Arti Teran, SENIOR ADMINISTRATIVE SERVICES OFFICER SENIOR ADMINISTRATIVE SERVICES OFFICER ct3 Amanda Pitts, SENIOR ADMINISTRATIVE SERVICES OFFICER SENIOR ADMINISTRATIVE SERVICES OFFICER elp Natalee Chacon, Reg Reg ks16 Corrections: (The following items were deleted from the chart) 16:16 16:14 Transition of care: patient was not received from another setting of care. kpj kpj Chart Complete MTDD
--- NOTE | 2016-03-26 20:44 | EDDOCDS ---
Physician Documentation [facility] Name: Bree Acosta Age: 71 yrs Sex: Female : 1945 Arrival Date: 03/24/2016 Time: 16:07 Bed Family 1 Private MD: Ravindra Beth Disposition: 03/24/16 18:19 Discharged to Home/Self Care. Impression: Gastrointestinal hemorrhage, unspecified - rectal bleeding. - Condition is Stable. - Discharge Instructions: Gastrointestinal Bleeding, Gastrointestinal Bleeding, [id number]. - Medication Reconciliation, Local Pharmacy Hours form. - Follow up: Emergency Department; When: Tomorrow; Reason: Recheck today's complaints. - Problem is new. - Symptoms have improved. Historical: - Allergies: Crestor (muscle pain); Lipitor (muscle pain); Zocor (muscle pain); Lisinopril (itch); - Home Meds: 1. pravastatin 80 mg oral tab 1 tab nightly (Last dose: 03/23/2016) 2. Novolin 70/30 InnoLet 100 unit/mL (70-30) Sub-Q inpn 6 unit based on FSBS BID (Last dose: 03/24/2016 06:00) 3. calcium 600 mg nightly (Last dose: 03/23/2016) 4. Vitamin C 500 mg Oral tab nightly (Last dose: 03/23/2016) 5. multivitamin Oral cap 1 tablet nightly (Last dose: 03/23/2016) 6. aspirin 81 mg Oral tab 1 tab nightly (Last dose: 03/23/2016) 7. carvedilol 6.25 mg oral tab 1 tab 2 times per day (Last dose: 03/24/2016 09:00) 8. cyclobenzaprine 5 mg Oral tab 1 tab 3 times per day as needed (Last dose: Unknown) 9. tramadol 50 mg Oral tab 2 tabs every 6 hours (Last dose: 03/22/2016) 10. Protonix 40 mg Oral TbEC 1 tab nightly (Last dose: 03/23/2016) - PMHx: CAD; CHF; Diabetes - IDDM: controlled; Hypertension; Renal failure, on hemodialysis; [place]; Hiatal Hernia; gastric ulcer; - PSHx: CABG (June 2009); Hysterectomy; Dialysis Graft Construction, Arm; - Social history: Smoking status: Patient states former smoker of tobacco. No barriers to communication noted, The patient speaks fluent Albanian. - Family history: Not pertinent. - : The pt / caregiver states he / she is not on anticoagulants. Home medication list is obtained from the patient. - Exposure Risk Screening:: None identified. Vital Signs: 03/24 16:08 BP 165 / 83; Pulse 86; Resp 18; Temp 99.2(O); Pulse Ox 96% on R/A; Weight 68.49 kg / elp 150.99 lbs; Height 5 ft. 5 in. (165.10 cm); Pain 8/10; 17:22 BP 193 / 95 (auto/); jo3 17:22 Pulse Ox 99% ; jo3 17:52 BP 180 / 83 (auto/); jo3 17:52 Pulse Ox 97% ; jo3 18:07 BP 192 / 88 (auto/); jo3 18:07 Pulse 70 MON; jo3 18:22 BP 186 / 86 (auto/); jo3 18:22 Pulse 88 MON; jo3 18:37 Pulse 92 MON; jo3 18:37 BP 156 / 88 (auto/); Resp 16; Temp 98.9(O); Pulse Ox 97% on R/A; jo3 16:08 Body Mass Index 25.13 (68.49 kg, 165.10 cm) elp MDM: 16:16 Orthostatic VS ordered. sd1 16:16 Undress patient appropriately for examination ordered. sd1 16:16 Piston Maker/Pulse Ox/q 30 min VS ordered. sd1 16:17 NOTHING BY MOUTH+DIET ordered. EDMS 16:18 PT/INR Ordered. EDMS 16:18 Amylase Ordered. EDMS 16:18 Basic Metabolic Profile Ordered. EDMS 16:18 CBC with Diff Ordered. EDMS 16:18 Lipase Ordered. EDMS 16:18 Liver Profile Ordered. EDMS 16:19 Type & Screen Ordered. EDMS 16:56 Misc. Nursing Order ordered. sd1 17:46 CBC with Diff Reviewed. sd1 17:46 PT/INR Reviewed. sd1 18:11 Amylase Reviewed. sd1 18:11 Basic Metabolic Profile Reviewed. sd1 18:11 Lipase Reviewed. sd1 18:11 Liver Profile Reviewed. sd1 18:11 Type & Screen Reviewed. sd1 18:12 Fluid Challenge ordered. sd1 18:39 Type & Screen Reviewed. sd1 19:11 Financial registration complete. ks 19:13 [facility] Payment Agreement was scanned into [employer] and attached to record. 03/25 08:56 T-Sheet-- Draft Copy was scanned into [employer] and attached to record. gb Signatures: Dispatcher [employer] EDJuana Austin MD MD sd1 Nolvia Ochoa RN RN Noa Rodriguez, Reg Reg gb Alexandra Fiore RN RN jo3 Natalee Chacon, Reg Reg ks16 The chart was reviewed and I authenticate all verbal orders and agree with the evaluation and treatment provided.Attachments: 03/24 19:13 [facility] Payment Agreement 03/25 08:56 T-Sheet-- Draft Copy gb Chart Complete MTDD
== END 2016-03-24 19:43 | disposition home or self-care (01) ==
LOC: M ED 16:07
DX: K62.5 Hemorrhage of anus and rectum (principal); I10 Essential (primary) hypertension; E11.29 Type 2 diabetes mellitus with other diabetic kidney complication; I25.10 Atherosclerotic heart disease of native coronary artery without angina pectoris; I50.9 Heart failure, unspecified; I25.2 Old myocardial infarction; N19 Unspecified kidney failure; Z99.2 Dependence on renal dialysis; Z87.19 Personal history of other diseases of the digestive system; K44.9 Diaphragmatic hernia without obstruction or gangrene; Z79.899 Other long term (current) drug therapy; Z79.82 Long term (current) use of aspirin; Z79.4 Long term (current) use of insulin; Z88.8 Allergy status to other drugs, medicaments and biological substances; Z95.1 Presence of aortocoronary bypass graft

== ENCOUNTER 2016-05-12 12:14 | Inpatient (IN) | payer MEDICARE, BC ==
[~2016-05-12] VITALS: Ht 165.1 cm; Wt 67.6 kg
[2016-05-12 13:30] LABS: BASO % 0.4 % (0.0-1.0); EOS # 0.1 K/mm3 (0.0-0.50); EOS % 2.1 % (0.0-3.0); LARGE UNSTAINED CELL # 0.1 K/mm3 (0.0-0.4); LARGE UNSTAINED CELL % 1.3 % (0.0-4.0); LYMPH # 0.8 K/mm3 (1.5-4.5); MEAN CORPUSCULAR HEMOGLOBIN 27.9 pg (27.0-33.0); MEAN CORPUSCULAR HGB CONC 28.8 g/dl (32.0-36.5); MEAN CORPUSCULAR VOLUME 96.9 fl (80.0-96.0); MONO # 0.2 K/mm3 (0.0-0.8); MONO % 4.3 % (0.0-5.0); NEUTROPHILS # 4.3 K/mm3 (1.8-7.7); PLATELET COUNT, AUTOMATED 152 k/mm3 (150-450); RED CELL DISTRIBUTION WIDTH 17.5 % (11.5-14.5); WHITE BLOOD COUNT 5.4 K/mm3 (4.0-10.0)
[2016-05-12 13:31] LABS: CALCIUM LEVEL 8.4 MG/DL (8.8-10.2); CREATININE FOR GFR 8.63 MG/DL (0.55-1.02); GLOMERULAR FILTRATION RATE 5.9 (>39); PHOSPHORUS LEVEL 3.8 MG/DL (2.5-4.9); POTASSIUM SERUM 5.1 MEQ/L (3.5-5.1)
--- NOTE | 2016-05-12 14:23 | REP ---
PORTABLE CHEST X-RAY: Single view. HISTORY: Dyspnea and cough. Comparison study is from January 09, 2016. FINDINGS: Moderate cardiomegaly is observed. The patient status post prior sternotomy. There is a metallic stent along the course of the brachiocephalic vein again noted. There is pleural opacity in the bases bilaterally consistent with bilateral pleural effusions. This is more prominent on the left than the right. Pulmonary vasculature is cephalized and congested. IMPRESSION: CHF pattern suspected bilateral effusions. Cardiomegaly and pulmonary vascular congestion. Signed by Quirino Moreno MD 05/12/2016 05:38 P
--- NOTE | 2016-05-12 14:28 | HPEPDOC ---
Medical History and Physical Date of Admission 05/12/16 History and Physical ATTENDING: Dr. Hernández PCP: [employer] Artist: Dr Daniel Rn Intensive Care Unit: Dr Goldman CC: SOB HPI: Ms Acosta is a 71 y.o female with past medical hx CAD s /p 6x bypass in 2009, DM2, HTN, ESRD, hemodialysis pt and combined S & D CHF w / EF 35%, who presents today for SOB that began today, w/ non productive cough. Pt states she missed dialysis yesterday related to bad weather. Pt admits since she didnt feel well today, she came to the ED. She denied chest pain or palpitations, wheeze, pre-syncope , denied fever, chills, night sweats, n/v or change in weight,abdominal pain, her appetitive has been good. Pt denies dysuria or hematuria but admits to chronically being constipated denies blood in stool. Denied blurry vision, h/a. Last admission to [facility] 01/08/16 [facility] for acute dyspnea secondary to fluid overload from end stage renal disease. In the ED her BP is elevated at 195/97, BNP is elevated to 3020. Dr Daniel has been contacted and is planning for HD today. The Hospitalist Service has been contacted to assist with medical management. PMHx: CAD s/p 6x bypass surgery HTN ESRD dialysis pt m.w.f DM2 D&S CHF w/ EF 35% PSHX: CABG x 6 2009 hysterectomy 71's SOCHX: Resides in: [facility] Marital Status: Kids: 6, twins 1 from SIDS and 1 related to sarcoidosis. 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 remarkable PE: GEN: 71yoF, appears stated age. Well-nourished, well developed. No acute distress. Alert and oriented x 3. Pleasant, interactive. HEENT: Normocephalic, atraumatic. Pupils are equal, round, and reactive to light. Extraocular movements are intact. No nystagmus appreciated. Sclera are nonicteric. Conjunctiva without injection. Nose midline. Nasal turbinates without bogginess. EACs both patent BL. TMs both visualized and collins with good cone of light, no bulging or erythema. No facial asymmetry. Moist mucous membranes. Dentition fair. Pharynx pink and moist, no cobblestoning. Neck supple , trachea midline. No lymphadenopathy or thyromegaly appreciated. CHEST: Regular rate and rhythm, +S1, +S2 LUNGS: Rales at bases bilaterally. No wheezes, or rhonchi. Breathing appears symmetric and easy. Patient is speaking in full sentences. No accessory muscle use. ABD: Round, soft, non-tender, non-distended. +Bowel sounds throughout. No rebound or guarding. No costovertebral angle tenderness. EXT: Pulses 2+ bilaterally dorsalis pedis and radial. No lower extremity edema appreciated. SKIN: [place], dry, warm. Capillary refill <2sec. No rashes. NEURO: Alert and oriented x 3. Cranial nerves III-XII are intact. No focal deficits appreciated. CXR: pending EKG: SR, occas ectopic complex, possible AWMI, possible IWMI, 79 bpm. A&P: Ms Acosta is a 71 y.o female with past medical hx CAD s/p 6x bypass in 2009, DM2, HTN, ESRD, hemodialysis pt and combined S & D CHF w/ EF 35%, who presents today for SOB that began today, w/ non productive cough. The patient will be admitted to M/S for observation to Dr. Hernández's service. ESRD/HD. Dr Daniel aware. Pt going for HD today. CAD/CABG. Coreg. HTN. Losartan. HLD. Statin. IDDM. CC diet. Humalog/SSI GERD. PPI. DVT prophylaxis. The patient Full code. Vital Signs 195/97 80 99.0 20 99% 2LNC Laboratory Data Labs 24H Laboratory Tests 2 05/12/16 12:57: Anion Gap 9, B-Type Natriuretic Peptide 3020H, White Blood Count 5.4, Red Blood Count 3.85L, Hemoglobin 10.7L, Hematocrit 37.3, Mean Corpuscular Volume 96.9H, Mean Corpuscular Hemoglobin 27.9, Mean Corpuscular Hemoglobin Concent 28.8L, Red Cell Distribution Width 17.5H, Platelet Count 152, Neutrophils (%) (Auto) 79.0H, Lymphocytes (%) (Auto) 13.0L, Monocytes (%) (Auto) 4.3, Eosinophils (%) ( Auto) 2.1, Basophils (%) (Auto) 0.4, Neutrophils # (Auto) 4.3, Lymphocytes # ( Auto) 0.8L, Monocytes # (Auto) 0.2, Eosinophils # (Auto) 0.1, Basophils # (Auto ) 0.0, Blood Urea Nitrogen 44H, Creatinine 8.63H, Sodium Level 143, Potassium Level 5.1, Chloride Level 104, Carbon Dioxide Level 30, Calcium Level 8.4L, Glomerular Filtration Rate 5.9L, Large Unclassified Cells # 0.1, Large Unclassified Cells % 1.3, Magnesium Level 2.0, Phosphorus Level 3.8 CBC/BMP Laboratory Tests 05/12/16 12:57 Calcium Level 8.4 L, Red Blood Count 3.85 L, Mean Corpuscular Volume 96.9 H, Mean Corpuscular Hemoglobin 27.9, Mean Corpuscular Hemoglobin Concent 28.8 L, Red Cell Distribution Width 17.5 H, Neutrophils (%) (Auto) 79.0 H, Lymphocytes ( %) (Auto) 13.0 L, Monocytes (%) (Auto) 4.3, Eosinophils (%) (Auto) 2.1, Basophils (%) (Auto) 0.4, Neutrophils # (Auto) 4.3, Lymphocytes # (Auto) 0.8 L, Monocytes # (Auto) 0.2, Eosinophils # (Auto) 0.1, Basophils # (Auto) 0.0 Home Medications Scheduled (Co Q-10) 100 Mg Cap 100 MG PO QHS (Calcium 500+D 500-200 mg-Unit) 1 Tab Tab 1 TAB PO QHS (Hair Skin and Nails Formu) 1 Tab Tab 1 TAB PO QHS Ascorbic Acid (Vitamin C) 500 Mg Tab 500 MG PO QHS Aspirin (Aspir-81) 81 Mg Tab 81 MG PO QHS Carvedilol (Coreg) 12.5 Mg Tab 12.5 MG PO BID Cyanocobalamin (Vitamin B-12) 1,000 Mcg Tab 1,000 MCG PO QHS Insulin Human Lispro (Humalog) 1 Units/0.01 Ml Inj 6 UNITS SC DAILY BEFORE BREAKFAST Insulin Human Lispro (Humalog) 1 Units/0.01 Ml Inj 12 UNITS SC QPM DINNER Losartan Potassium (Losartan Potassium) 100 Mg Tab 100 MG PO QHS Multivitamins *[facility] STOCKED* (Thera M Plus *[facility] STOCKED*) 1 Tab Tab 1 TAB PO QHS Omeprazole (Omeprazole) 40 Mg Cap 40 MG PO BID Pravastatin Sodium (Pravastatin Sodium) 80 Mg Tab 80 MG PO QHS Sucralfate (Carafate) 1 Gm Tab 1 GM PO DAILY Scheduled PRN Cyclobenzaprine HCl (Cyclobenzaprine HCl) 5 Mg Tab 5 MG PO PRN PRN PRN MUSCLE SPASMS Tramadol HCl (Tramadol HCl) 50 Mg Tab 100 MG PO PRN PRN PRN PAIN Allergies Coded Allergies: Atorvastatin (Verified Allergy, Unknown, 05/12/16) Mini Lemus May 12, 2016 14:28
[2016-05-12] MEDS ORDERED: HAIR1TAB5 PO (14:40)
[2016-05-12] MEDS ORDERED: ASPI81TA85 PO (14:41)
[2016-05-12] MEDS ORDERED: CARA1TAB2 PO (14:42)
[2016-05-12] MEDS ORDERED: CYCL5TA PO (14:42)
[2016-05-12] MEDS ORDERED: OMEP40CA2 PO (14:42)
[2016-05-12] MEDS ORDERED: TRAM50TA2 PO (14:42)
[2016-05-12] MEDS ORDERED: DEXTROSE 50% 50 ML SYRINGE IV PRN (15:00)
[2016-05-12] MEDS ORDERED: GLUCAGON FOR INJ 1 MG VIAL (J1610) SC PRN (15:00)
[2016-05-12] MEDS ORDERED: GLUCOSE 4 GM CHEW TABLET PO PRN (15:00)
[2016-05-12] MEDS: HumaLOG INSULIN (NovoLOG) PER UNIT SC SCH ×3 (17:30→21:00)
[2016-05-12 22:00] VITALS: BP 160/63
[2016-05-12] MEDS: CYANOCOBALAMIN 500 MCG TAB PO SCH (22:25)
[2016-05-12] MEDS: LOSARTAN 50 MG TAB PO SCH (22:26)
[2016-05-12] MEDS: MULTIVITAMINS/MINERALS THERAP 1 TAB PO SCH (22:26)
[2016-05-12] MEDS: OMEPRAZOLE 20 MG CAP PO SCH (22:27)
[2016-05-12] MEDS: diphenhydrAMINE 25 MG CAP PO SCH (22:27)
[2016-05-12] MEDS: ASPIRIN 81 MG ENTERIC TAB PO SCH (22:28)
[2016-05-12] MEDS: CARVedilol 12.5 MG TAB PO SCH (22:28)
[2016-05-12] MEDS: PRAVASTATIN 20 MG TAB PO SCH (22:30)
[2016-05-13] MEDS ORDERED: traMADol 50 MG TAB PO ONE (02:00)
[2016-05-13 06:00] VITALS: BP 169/75
[2016-05-13] MEDS: HumaLOG INSULIN (NovoLOG) PER UNIT SC SCH ×6 (07:30→20:58)
[2016-05-13] MEDS: OMEPRAZOLE 20 MG CAP PO SCH ×2 (07:49→20:55)
[2016-05-13] MEDS: CARVedilol 12.5 MG TAB PO SCH ×2 (07:50→20:55)
--- NOTE | 2016-05-13 08:45 | ECGEPIP ---
Stationary ECG Study [facility] - ED Test Date: 2016-05-12 Pat Name: RONNIE BRAN Department: Room: - Gender: F Watch Mechanic: CHRISTY : 1945 Requested By: Juana Urias Order Number: [id number] Reading MD: Juana Urias Measurements Intervals [place] Rate: 79 P: 37 UT: 140 QRS: -3 QRSD: 90 T: 98 QT: 403 QTc: 463 Interpretive Statements SINUS RHYTHM WITH OCCASIONAL ECTOPIC PREMATURE COMPLEXES POSSIBLE ANTERIOR MYOCARDIAL INFARCTION, OF INDETERMINATE AGE POSSIBLE INFERIOR MYOCARDIAL INFARCTION, PROBABLY OLD SIMILAR 01/07/16 Electronically Signed On 05-13-2016 8:45:10 EDT by Juana Urias
[2016-05-13 11:05] LABS: MEAN CORPUSCULAR HEMOGLOBIN 28.5 pg (27.0-33.0); MEAN CORPUSCULAR HGB CONC 29.9 g/dl (32.0-36.5); MEAN CORPUSCULAR VOLUME 95.5 fl (80.0-96.0); RED CELL DISTRIBUTION WIDTH 17.6 % (11.5-14.5); WHITE BLOOD COUNT 5.1 K/mm3 (4.0-10.0)
[2016-05-13 11:22] LABS: CALCIUM LEVEL 8.2 MG/DL (8.8-10.2); CREATININE FOR GFR 6.75 MG/DL (0.55-1.02); GLOMERULAR FILTRATION RATE 7.8 (>39); PHOSPHORUS LEVEL 3.5 MG/DL (2.5-4.9); POTASSIUM SERUM 4.9 MEQ/L (3.5-5.1)
[2016-05-13] MEDS ORDERED: LIDOCAINE 1% SDV 5 ML VIAL SQ ONE (12:00)
[2016-05-13] MEDS ORDERED: HEPARIN 1,000 UNITS/ML 10ML VIAL (FOR RADIOLOGY& DIALYSIS ONLY) IV ONE (12:00)
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
[2016-05-13 16:00] VITALS: BP 154/70
[2016-05-13] MEDS: MULTIVITAMINS/MINERALS THERAP 1 TAB PO SCH (20:54)
[2016-05-13] MEDS: ASPIRIN 81 MG ENTERIC TAB PO SCH (20:54)
[2016-05-13] MEDS: CYANOCOBALAMIN 500 MCG TAB PO SCH (20:55)
[2016-05-13] MEDS: diphenhydrAMINE 25 MG CAP PO SCH (20:55)
[2016-05-13] MEDS: LOSARTAN 50 MG TAB PO SCH (20:56)
[2016-05-13] MEDS: PRAVASTATIN 20 MG TAB PO SCH (20:56)
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
[2016-05-13 22:00] VITALS: BP 146/78
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
[2016-05-14 06:00] VITALS: BP 182/88
[2016-05-14] MEDS: CARVedilol 12.5 MG TAB PO SCH ×2 (06:42→21:04)
[2016-05-14] MEDS: OMEPRAZOLE 20 MG CAP PO SCH ×2 (06:43→21:04)
[2016-05-14 06:54] LABS: MEAN CORPUSCULAR HEMOGLOBIN 28.2 pg (27.0-33.0); MEAN CORPUSCULAR HGB CONC 29.7 g/dl (32.0-36.5); RED CELL DISTRIBUTION WIDTH 17.3 % (11.5-14.5); WHITE BLOOD COUNT 4.8 K/mm3 (4.0-10.0)
[2016-05-14 07:23] LABS: CALCIUM LEVEL 8.6 MG/DL (8.8-10.2); CREATININE FOR GFR 5.62 MG/DL (0.55-1.02); GLOMERULAR FILTRATION RATE 9.6 (>39); PHOSPHORUS LEVEL 3.1 MG/DL (2.5-4.9); POTASSIUM SERUM 4.1 MEQ/L (3.5-5.1)
[2016-05-14] MEDS: HumaLOG INSULIN (NovoLOG) PER UNIT SC SCH ×6 (07:30→21:00)
[2016-05-14] MEDS: amLODIPine 5 MG TAB PO SCH (10:57)
[2016-05-14] MEDS ORDERED: LIDOCAINE 1% SDV 5 ML VIAL SC ONE (11:30)
[2016-05-14] MEDS ORDERED: HEPARIN 1,000 UNITS/ML 10ML VIAL (FOR RADIOLOGY& DIALYSIS ONLY) IV ONE (11:30)
[2016-05-14 14:00] VITALS: BP 120/70
[2016-05-14 17:30] VITALS: BP 162/65
[2016-05-14] MEDS: MULTIVITAMINS/MINERALS THERAP 1 TAB PO SCH (21:04)
[2016-05-14] MEDS: diphenhydrAMINE 25 MG CAP PO SCH (21:04)
[2016-05-14] MEDS: ASPIRIN 81 MG ENTERIC TAB PO SCH (21:05)
[2016-05-14] MEDS: CYANOCOBALAMIN 500 MCG TAB PO SCH (21:05)
[2016-05-14] MEDS: PRAVASTATIN 20 MG TAB PO SCH (21:05)
[2016-05-14] MEDS: LOSARTAN 50 MG TAB PO SCH (21:06)
[2016-05-14] MEDS ORDERED: traMADol 50 MG TAB PO PRN (21:30)
[2016-05-14 22:00] VITALS: BP 139/63
[2016-05-15 06:00] VITALS: BP 164/72
[2016-05-15 06:38] LABS: ALBUMIN 3.2 GM/DL (3.2-5.2); CALCIUM LEVEL 8.3 MG/DL (8.8-10.2); CREATININE FOR GFR 7.22 MG/DL (0.55-1.02); GLOMERULAR FILTRATION RATE 7.2 (>39); PHOSPHORUS LEVEL 3.4 MG/DL (2.5-4.9); POTASSIUM SERUM 4.3 MEQ/L (3.5-5.1)
[2016-05-15 06:40] LABS: MEAN CORPUSCULAR HEMOGLOBIN 27.9 pg (27.0-33.0); MEAN CORPUSCULAR HGB CONC 29.3 g/dl (32.0-36.5); MEAN CORPUSCULAR VOLUME 95.1 fl (80.0-96.0); RED CELL DISTRIBUTION WIDTH 17.3 % (11.5-14.5); WHITE BLOOD COUNT 5.4 K/mm3 (4.0-10.0)
[2016-05-15 08:10] VITALS: BP 163/75
[2016-05-15] MEDS: amLODIPine 5 MG TAB PO SCH (08:10)
[2016-05-15] MEDS: CARVedilol 12.5 MG TAB PO SCH (08:11)
[2016-05-15] MEDS: HumaLOG INSULIN (NovoLOG) PER UNIT SC SCH ×3 (08:12→12:21)
[2016-05-15] MEDS: OMEPRAZOLE 20 MG CAP PO SCH (08:41)
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
--- NOTE | 2016-05-15 16:04 | IPN ---
DATE: 05/14/2016 SUBJECTIVE: Patient was seen and examined at the bedside today in the morning. She was dialyzed yesterday, she tolerated the hemodialysis and ultrafiltration well. She is sitting comfortably, not requiring oxygen, however she continues to complain of facial swelling and eye swelling as well. REVIEW OF SYSTEMS: Patient denies any fevers, chills, rigors, headache, nausea, vomiting, chest pain. She does report mild shortness of breath on walking around. She reports weakness and she reports facial edema and eye swelling and watering of the eyes. Rest of review of systems is negative. OBJECTIVE: VITAL SIGNS: Temperature 97 degrees Fahrenheit, blood pressure 182/88, pulse 72, respiratory rate 18, saturating at 94% on room air. INTAKE/OUTPUT: Urine output recorded is 400 mL yesterday, no urine output is recorded today. Patient got hemodialysis done yesterday, ultrafiltration was 2.5 liters. Weight in the bed scale is 67.8 kg today. PHYSICAL EXAMINATION: GENERAL: Patient is awake, alert, oriented times three, sitting in the bed, no apparent distress. HEAD and NECK EXAM: Extraocular muscles intact. Pupils equally round and reactive to light. Patient has periorbital puffiness and she has a puffy face as well. Mucous membranes are moist. Neck is supple, there is no jugular venous distention (JVD). CARDIOVASCULAR: S1, S2, regular rate. No murmur, rub, and gallop. RESPIRATORY: Mildly decreased breath sounds at the bases and inspiratory crackles at the bases. ABDOMEN: Soft, positive bowel sounds, nontender. No ascites. No organomegaly. EXTREMITIES: No clubbing or cyanosis. Pulses are 2+. No edema at the bilateral lower extremities. 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 Power is 5/5 in all extremities. SKIN: No rashes or ulcers. PSYCHIATRIC: Normal mood and affect. LABORATORY REVIEW: CBC showed WBC 4.8, hemoglobin 11.1, platelets 123. BMP showed sodium 141, potassium 4.1, chloride 103, bicarbonate 28, BUN 33, creatinine 5.6, calcium 8.6, albumin 3. CURRENT MEDICATIONS: Patient's medications were all reviewed by me. Significant change in the medications today is addition of amlodipine 5 mg by mouth daily because of her persistently elevated blood pressures. There is no other change in the medications today. ASSESSMENT: 71-year-old female with past medical history of end-stage renal disease on hemodialysis, admitted at this time because of shortness of breath and fluid overload after missing hemodialysis secondary to bad weather. PLAN: 1. Shortness of breath and fluid overload. Patient's shortness of breath is significantly improved as compared with yesterday. She was dialyzed [id number] for 2 days and total ultrafiltration with two sessions of hemodialysis is almost 5 liters. However, patient still has periorbital puffiness and facial edema which is usually what we clinically find in her when she is fluid overloaded, patient usually does not get lower extremity edema. I will do another session of ultrafiltration for 2 hours and try to do an ultrafiltration of 1.5 to 2 liters as tolerated by her blood pressure. 2. Uncontrolled hypertension. It was secondary to fluid overload, but patient's blood pressures are still in 180s. Patient was started on amlodipine 5 mg by mouth daily and she will get ultrafiltration and fluid removal will help with blood pressures as well. 3. End-stage renal disease on hemodialysis. Patient's regular hemodialysis days are Monday, Monday, Monday. Patient was dialyzed yesterday. Patient will only get ultrafiltration today. Next hemodialysis session will be on 05/16/2016. 4. Anemia in end-stage renal disease. Patient's hemoglobin is 11.1, which is adequate at this time. No need of Aranesp at this time. 5. Chronic systolic congestive heart failure and coronary artery disease. Volume status is being optimized with hemodialysis. Continue current dose of Coreg 12.5 mg by mouth twice a day and losartan 100 mg by mouth nightly. Patient was seen and examined this morning during work rounds and she was evaluated again during hemodialysis and ultrafiltration. She was tolerating the ultrafiltration well.
--- NOTE | 2016-05-16 04:06 | IPN ---
DATE: 05/15/2016 SUBJECTIVE: The patient was seen and examined at the bedside today in the morning. She got ultrafiltration done again yesterday and she tolerated the procedure well. Last 24 hour events were noted. The patient was hypoglycemic overnight. Her glucose level is better. The patient is feeling better now. REVIEW OF SYSTEMS: The patient denies any fevers, chills, rigors, headache, nausea, vomiting, chest pain, shortness of breath. The patient reported that she was nauseated when she had hypoglycemia, but symptoms are better now. She denies any pain in abdomen, constipation or diarrhea. The rest of the review of systems is negative. OBJECTIVE: VITAL SIGNS: Temperature is 98.9 degrees Fahrenheit, blood pressure is 164/72, pulse is 77, respiratory rate of 18, saturating 98% on room air. Intake and output: There is no urine output recorded. Ultrafiltration done yesterday was 1.5 liters. Weight on bed scale done today is 67.6 kg. PHYSICAL EXAMINATION: GENERAL: The patient is awake, alert, oriented times three, sitting in the bed in apparent distress. HEAD AND NECK EXAM: Extraocular muscles intact. Pupils equally round and reactive to light. Periorbital puffiness and edema is improved. Mucous membranes are moist. Neck is supple. Trachea is midline. No jugular venous distension (JVD). CARDIOVASCULAR: S1, S2. Regular rate. No murmur, rub and gallop. RESPIRATORY: Chest is clear to auscultation bilaterally. Bilateral equal air entry. No rales or rhonchi. ABDOMEN: Soft. Positive bowel sounds. Nontender. No ascites. No organomegaly. EXTREMITIES: No clubbing or cyanosis. No edema of the bilateral lower extremities. CENTRAL NERVOUS SYSTEM: No focal neurological deficit. Power is 5/5 in all extremities. PSYCHIATRIC: Normal mood and affect. SKIN: No rashes or ulcers. LABORATORY REVIEW: Complete blood count (CBC) showed a white blood count (WBC) of 5.5, hemoglobin is 11, platelets of 126. Basic metabolic panel (BMP) showed sodium 139, potassium 4.3, chloride 100, bicarbonate 28, BUN 46, creatine 7.2, calcium is 8.3. CURRENT MEDICATIONS: The patient's medications were all reviewed by me. There are no new medications today except the amlodipine that was started yesterday. ASSESSMENT: 71-year-old female with past medical history of end-stage renal disease on hemodialysis admitted this time because of fluid overload and shortness of breath after missing hemodialysis secondary to bad weather. PLAN: 1. Shortness of breath and fluid overload. The patient's swallowing status is well optimized. She was dialyzed back to back for three days. She is back to her dry weight. No urgent need of hemodialysis today. 2. Accelerated hypertension. The patient's blood pressures are within acceptable range now. There are in the 160s at this time. Amlodipine was just started yesterday. I would not escalate the antihypertensive regimen at this time. If needed as outpatient, we shall increase the amlodipine if she persistently remains hypertensive. 3. End-stage renal disease on hemodialysis. The patient's regular days are Monday, Monday, Monday. She will be dialyzed tomorrow as an outpatient according to her regular schedule. 4. Diabetes mellitus type 2. The patient was hypoglycemic overnight. However, the blood glucose level is 152 at this time. Continue the home dose of insulin sliding scale. 5. Anemia and end-stage renal disease. Hemoglobin is 11 at this time. The rest of the anemia management is as per outpatient anemia protocol. 6. Discharge planning. It is okay to discharge the patient from nephrology standpoint. Plan of care was discussed with the hospitalist team.
--- NOTE | 2016-05-16 06:41 | DSES ---
DATE OF ADMISSION: 05/12/2016 DATE OF DISCHARGE: 05/15/2016 SPECIALISTS INVOLVED IN CARE: 1. Dr. Daniel. 2. Dr. Kiran. No complications during her stay. PROCEDURES PERFORMED DURING STAY: Hemodialysis. DISCHARGE DIAGNOSES: 1. Fluid overload believed to be due to missing dialysis in the setting of poor weather. 2. Coronary artery disease status post bypass grafting. 3. Hypertension. 4. Hyperlipidemia. 5. Insulin-dependent diabetes. 6. Anemia of chronic disease. SUMMARY OF PRESENTATION: This is a 71-year-old who presented with elevated blood pressure, shortness of breath and fluid overload related to weather had three days of dialysis. Today, she is feeling well. She did have an episode of hyperglycemia, perhaps because we were controlling her diet, but is feeling better at this point and would like to go home. No complaints of pain, chest pain, shortness of breath. Temperature 98.9, pulse 77, respiratory rate 18, blood pressure 164/72, 98% in room air . Weight is 67.6 kg. She is awake, appropriately interactive, pleasantly conversant. Breathing is symmetrical and rested. Heart is distant sounding, normal S1, S2. Abdomen soft, hypoactive bowel sounds, nontender. White cell count 5.4, hemoglobin 11, platelets of 126. BUN 46, creatinine 7.22. DISCHARGE INSTRUCTIONS: Include the following 1. Followup with Dr. Daniel for dialysis tomorrow. 2. Diet and activity as tolerated. MEDICATIONS INCLUDE THE FOLLOWING: - vitamin C supplement - aspirin 81 mg by mouth daily - vitamin D and calcium supplement - Coreg 12.5 mg by mouth twice daily - Coenzyme Q12 supplement - vitamin B12 supplement - Flexeril 5 mg by mouth as needed for muscle spasm - home insulin as previously dosed - losartan 100 mg by mouth daily at bedtime - multivitamin tablet daily - omeprazole 40 mg twice daily - pravastatin 80 mg by mouth daily at bedtime - sucralfate one gram by mouth daily - tramadol 100 mg by mouth as needed for pain
== END 2016-05-15 14:14 | disposition home or self-care (01) | DRG 291 ==
LOC: M ED 13:17 → M ED INP 14:13 → OBSVTOIN 15:50 → M MS5PR 18:56 → M MSPAV 05-14 17:30
PROVIDERS: ADMIT Internal Medicine; ATTEND Internal Medicine
PROC: 5A1D60Z (ICD-10-PCS; principal; 2016-05-12)
DX: I13.2 Hypertensive heart and chronic kidney disease with heart failure and with stage 5 chronic kidney disease, or end stage renal disease (principal); N18.6 End stage renal disease; I50.43 Acute on chronic combined systolic (congestive) and diastolic (congestive) heart failure; N25.81 Secondary hyperparathyroidism of renal origin; I25.10 Atherosclerotic heart disease of native coronary artery without angina pectoris; E11.65 Type 2 diabetes mellitus with hyperglycemia; D63.8 Anemia in other chronic diseases classified elsewhere; Z95.1 Presence of aortocoronary bypass graft; Z99.2 Dependence on renal dialysis; Z90.710 Acquired absence of both cervix and uterus; Z87.891 Personal history of nicotine dependence; Z79.82 Long term (current) use of aspirin; Z79.4 Long term (current) use of insulin; Z79.899 Other long term (current) drug therapy; Z88.8 Allergy status to other drugs, medicaments and biological substances; Z91.15 Patient's noncompliance with renal dialysis

== ENCOUNTER 2016-06-13 22:24 | Emergency (ER) | payer MEDICARE, BC ==
[~2016-06-13] VITALS: Ht 165.1 cm; Wt 68.0 kg
[~2016-06-13 22:24] MED LIST changes: +CARA1TAB2 PO; +CYCL5TA PO; +OMEP40CA2 PO
[2016-06-13] MEDS ORDERED: LABETALOL HCL 100 MG/20 ML VIAL IV STA (23:01)
[2016-06-13 23:21] VITALS: BP 205/98
[2016-06-13 23:45] LABS: INR 0.98
[2016-06-14 01:00] VITALS: BP 178/82
== END 2016-06-14 01:04 | disposition home or self-care (01) ==
LOC: M ED 23:48
DX: T82.598A Other mechanical complication of other cardiac and vascular devices and implants, initial encounter (principal); X58.XXXA Exposure to other specified factors, initial encounter; Y92.89 Other specified places as the place of occurrence of the external cause; Y93.89 Activity, other specified; Y99.8 Other external cause status; I12.9 Hypertensive chronic kidney disease with stage 1 through stage 4 chronic kidney disease, or unspecified chronic kidney disease; N18.9 Chronic kidney disease, unspecified; Z99.2 Dependence on renal dialysis; Z79.4 Long term (current) use of insulin; Z79.899 Other long term (current) drug therapy

== ENCOUNTER 2016-06-18 21:34 | Emergency (ER) | payer MEDICARE, BC ==
[~2016-06-18] VITALS: Ht 165.1 cm; Wt 68.0 kg
[2016-06-18] MEDS ORDERED: NS 1,000 ML IV SCH (22:55)
[2016-06-18] MEDS ORDERED: NITROGLYCERIN 0.4 MG SUBL TABLET SL PRN (23:00)
[2016-06-18] MEDS ORDERED: ASPIRIN 81 MG CHEW TABLET PO ONE (23:00)
[2016-06-18 23:06] LABS: ADD MORPHOLOGY? YES; BASO % 0.6 % (0.0-1.0); EOS # 0.2 K/mm3 (0.0-0.50); EOS % 4.4 % (0.0-3.0); LARGE UNSTAINED CELL # 0.1 K/mm3 (0.0-0.4); LYMPH # 0.9 K/mm3 (1.5-4.5); MEAN CORPUSCULAR HGB CONC 28.7 g/dl (32.0-36.5); MEAN CORPUSCULAR VOLUME 94.1 fl (80.0-96.0); MONO # 0.3 K/mm3 (0.0-0.8); NEUTROPHILS # 3.2 K/mm3 (1.8-7.7); NEUTROPHILS % 69.1 % (36.0-66.0); PLATELET COUNT, AUTOMATED 115 k/mm3 (150-450); RED CELL DISTRIBUTION WIDTH 16.2 % (11.5-14.5); WHITE BLOOD COUNT 4.6 K/mm3 (4.0-10.0)
[2016-06-18 23:07] LABS: INR 0.99
[2016-06-18 23:10] VITALS: BP 193/83
[2016-06-18 23:17] LABS: ALBUMIN 3.5 GM/DL (3.2-5.2); ALBUMIN/GLOBULIN RATIO 1.06 (1.00-1.93); ALKALINE PHOSPHATASE 81 U/L (45-117); ALT/SGPT 13 U/L (12-78); ANION GAP 5 MEQ/L (8-16); AST/SGOT 12 U/L (15-37); BILIRUBIN,DIRECT < 0.1 MG/DL (0.0-0.2); BILIRUBIN,TOTAL 0.2 MG/DL (0.2-1.0); BLOOD UREA NITROGEN 39 MG/DL (7-18); CALCIUM LEVEL 8.2 MG/DL (8.8-10.2); CARBON DIOXIDE LEVEL 33 MEQ/L (21-32); CHLORIDE LEVEL 103 MEQ/L (98-107); GLOMERULAR FILTRATION RATE 5.9 (>39); GLUCOSE, FASTING 202 MG/DL (83-110); POTASSIUM SERUM 4.7 MEQ/L (3.5-5.1); SODIUM LEVEL 141 MEQ/L (136-145); TOTAL PROTEIN 6.8 GM/DL (6.4-8.2)
[2016-06-18 23:44] LABS: ANISOCYTOSIS 1+; HYPOCHROMASIA 1+
[2016-06-19 02:49] VITALS: BP 189/88
--- NOTE | 2016-06-19 07:28 | ECGEPIP ---
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
--- NOTE | 2016-06-19 07:29 | ECGEPIP ---
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
--- NOTE | 2016-06-19 08:44 | REP ---
PA and lateral chest: Comparisons are the PA and lateral chest of 01/09/2016 and portable chest of 05/12/2016. There is chronic cardiomegaly and sternotomy wires, unchanged. There is an endovascular stent in the superior mediastinum in the innominate vein, unchanged from the prior studies. There is increased radiodensity inferiorly in the lung limon bilaterally obscuring the hemidiaphragms suggesting lower lobe infiltrates or pleural effusions, or combination. There is chronic interstitial coarsening compatible with chronic lung disease. Impression: Bibasilar infiltrates/effusions. Chronic interstitial coarsening. Chronic cardiomegaly and sternotomy wires. Endovascular stent in the innominate vein. Signed by Bebeto Hoffman MD 06/19/2016 08:36 A
--- NOTE | 2016-06-19 18:31 | ED PDOC ---
Post-Departure Follow-Up dr giles and dr freed faxed formal report of cxr for fu malg Lenny Carrillo MD Jun 19, 2016 18:31
== END 2016-06-19 03:02 | disposition home or self-care (01) ==
LOC: M ED 22:21
DX: R07.9 Chest pain, unspecified (principal); R06.02 Shortness of breath; R94.31 Abnormal electrocardiogram [ECG] [EKG]; I12.9 Hypertensive chronic kidney disease with stage 1 through stage 4 chronic kidney disease, or unspecified chronic kidney disease; E11.22 Type 2 diabetes mellitus with diabetic chronic kidney disease; E78.5 Hyperlipidemia, unspecified; N18.9 Chronic kidney disease, unspecified; Z95.1 Presence of aortocoronary bypass graft; Z87.891 Personal history of nicotine dependence; Z82.49 Family history of ischemic heart disease and other diseases of the circulatory system; Z88.8 Allergy status to other drugs, medicaments and biological substances; Z79.899 Other long term (current) drug therapy; Z79.4 Long term (current) use of insulin; Z79.82 Long term (current) use of aspirin

== ENCOUNTER 2016-11-24 11:49 | Emergency (ER) | payer MEDICARE, BC ==
[~2016-11-24] VITALS: Ht 165.1 cm; Wt 69.5 kg
[~2016-11-24 11:49] MED LIST changes: -AVEL1TAB PO; +AVEL1TAB3 PO; +BACITAB PO; -BACITAB3 PO; -CALC600T10 PO; +CALC600T31 PO; -CARA1TAB2 PO; +CARA1TAB6 PO; +CO Q100C PO; -CO Q1CAP PO; -CYCL5TA PO; +CYCL5TAB PO; +HYDR-3910 PO; -HYDR-4266 PO; +ROZE8TAB16 PO; -ROZE8TAB9 PO; -VITA-130 PO; +VITA500T PO
[2016-11-24 13:17] LABS: BASO % 0.6 % (0.0-1.0); EOS # 0.1 10^3/uL (0.0-0.50); EOS % 2.2 % (0.0-3.0); IMMATURE GRANULOCYTE % 0.4 % (0-0); LYMPH # 0.8 10^3/uL (1.5-4.5); MEAN CORPUSCULAR HEMOGLOBIN 28.6 pg (27.0-33.0); MEAN CORPUSCULAR HGB CONC 29.8 g/dl (32.0-36.5); MEAN CORPUSCULAR VOLUME 96.1 fl (80.0-96.0); MONO # 0.5 10^3/uL (0.0-0.8); MONO % 9.5 % (0.0-5.0); NEUTROPHILS # 3.5 10^3/uL (1.8-7.7); NEUTROPHILS % 70.3 % (36.0-66.0); PLATELET COUNT, AUTOMATED 143 10^3/uL (150-450); RED CELL DISTRIBUTION WIDTH 16.9 % (11.5-14.5); WHITE BLOOD COUNT 4.9 10^3/uL (4.0-10.0)
--- NOTE | 2016-11-24 13:23 | REP ---
CHEST, TWO VIEWS: Two views of the chest are performed and compared to multiple prior exams dating back to 03/09/2015. There is mild cardiomegaly. There is a stable calcified granuloma in the right upper lobe. Bibasilar fibroatelectatic change is also stable. There is some tortuosity of the thoracic aorta. The mediastinal silhouette is unchanged. Multiple sternal wires and mediastinal clips are present. IMPRESSION: Stable chronic fibroatelectatic changes in the lung bases without evidence of acute pulmonary disease. Signed by Bebeto Tripp MD 11/24/2016 07:53 P
[2016-11-24 13:58] LABS: ALBUMIN 3.1 GM/DL (3.2-5.2); ALBUMIN/GLOBULIN RATIO 0.82 (1.00-1.93); ALKALINE PHOSPHATASE 75 U/L (45-117); ALT/SGPT 20 U/L (12-78); ANION GAP 7 MEQ/L (8-16); AST/SGOT 31 U/L (15-37); BILIRUBIN,DIRECT < 0.1 MG/DL (0.0-0.2); BILIRUBIN,TOTAL 0.4 MG/DL (0.2-1.0); BLOOD UREA NITROGEN 34 MG/DL (7-18); CALCIUM LEVEL 8.5 MG/DL (8.8-10.2); CARBON DIOXIDE LEVEL 32 MEQ/L (21-32); CHLORIDE LEVEL 100 MEQ/L (98-107); CREATININE FOR GFR 7.54 MG/DL (0.55-1.02); GLOMERULAR FILTRATION RATE 6.9 (>39); GLUCOSE, FASTING 229 MG/DL (83-110); SODIUM LEVEL 139 MEQ/L (136-145); TOTAL PROTEIN 6.9 GM/DL (6.4-8.2)
[2016-11-24 14:05] LABS: POTASSIUM SERUM 6.2 MEQ/L (3.5-5.1)
--- NOTE | 2016-11-24 17:17 | REP ---
CT ABDOMEN AND PELVIS WITHOUT CONTRAST: CT abdomen and pelvis performed without oral or IV contrast. Sagittal and coronal reconstruction images are performed. Comparison made with prior study of 05/07/2015. Visualized lung bases demonstrate heavy fibrotic changes which are stable with a round calcification in the right lung base and a stable nodule in the left lung base. The liver, spleen, adrenals, pancreas and kidneys are grossly unremarkable. No renal or ureteral calculus is seen. There is no hydroureteronephrosis. There are moderate atherosclerotic calcifications of the abdominal aorta without aneurysm. There is no adenopathy. There is no free air or free fluid. No bowel wall thickening is seen. There is a left ovarian cyst which has remained stable since prior CT examination measuring 2.6 cm in diameter. There is no other evidence of pelvic mass. Urinary bladder is mildly distended and grossly unremarkable. There is a small left inguinal hernia containing fat. IMPRESSION: Stable chronic lung changes. Old left ovarian cyst is stable, 2.6 cm in diameter. Left inguinal hernia contains fat and is also unchanged since prior study. No acute findings. No renal or ureteral calculus and no hydroureteronephrosis. Signed by Bebeto Tripp MD 11/24/2016 07:55 P
[2016-11-24] MEDS ORDERED: SOD POLYSTYRENE SULFONATE SUSP 15 GM/60 ML UD PO ONE (18:00)
[2016-11-24 18:28] VITALS: BP 160/72
--- NOTE | 2016-11-24 20:57 | ECGEPIP ---
Stationary ECG Study [facility] - ED Test Date: 2016-11-24 Pat Name: RONNIE BRAN Department: Room: - Gender: F Geriatric Psychiatrist: bina : 1945 Requested By: KWESI SALGADO Order Number: [id number] Reading MD: Juana Urias Measurements Intervals [place] Rate: 75 P: 22 PA: 147 QRS: -19 QRSD: 89 T: 96 QT: 435 QTc: 486 Interpretive Statements SINUS RHYTHM POSSIBLE ANTERIOR MYOCARDIAL INFARCTION, OF INDETERMINATE AGE INFERIOR MYOCARDIAL INFARCTION, OF INDETERMINATE AGE, CLINICAL CORRELATION SIMILAR 06/19/16 Electronically Signed On 11-24-2016 20:57:01 EDT by Juana Urias
--- NOTE | 2016-11-26 08:52 | ED PDOC ---
Post-Departure Follow-Up dr ledbetter faxed formal report of ct abd/p for fu Lenny Warren MD Nov 26, 2016 08:52
== END 2016-11-24 18:42 | disposition home or self-care (01) ==
LOC: M ED 11:49
DX: R10.9 Unspecified abdominal pain (principal); E87.5 Hyperkalemia; I50.9 Heart failure, unspecified; E11.9 Type 2 diabetes mellitus without complications; I11.0 Hypertensive heart disease with heart failure; N18.9 Chronic kidney disease, unspecified; E78.5 Hyperlipidemia, unspecified; Z79.4 Long term (current) use of insulin; Z79.899 Other long term (current) drug therapy; Z79.82 Long term (current) use of aspirin; Z88.8 Allergy status to other drugs, medicaments and biological substances; I25.2 Old myocardial infarction; Z95.1 Presence of aortocoronary bypass graft; Z87.09 Personal history of other diseases of the respiratory system; Z87.891 Personal history of nicotine dependence

== ENCOUNTER → 2017-04-11 | Outpatient (CLI) | payer MEDICARE, BC ==
[2017-04-11 20:14] LABS: CHOLESTEROL LEVEL 148 MG/DL (<200); CHOLESTEROL RISK RATIO 3.523 (<5); HDL CHOLESTEROL 42 MG/DL (>40); LDL CHOLESTEROL 57.6 MG/DL (<100); NON-HDL-C 106 MG/DL; TRIGLYCERIDES LEVEL 242 MG/DL (<150)
== END ==
LOC: M SMT 14:54
DX: E78.2 Mixed hyperlipidemia (principal); I25.10 Atherosclerotic heart disease of native coronary artery without angina pectoris
CPT/HCPCS: 84443

== ENCOUNTER → 2017-04-11 | Outpatient (CLI) | payer MEDICARE, BC ==
[2017-04-11 20:20] LABS: TROPONIN I 0.03 NG/ML (< 0.10)
== END ==
LOC: M SMT 14:48
DX: I25.10 Atherosclerotic heart disease of native coronary artery without angina pectoris (principal)

== ENCOUNTER → 2017-04-18 | Outpatient (CLI) | payer MEDICARE, BC ==
[~2017-04-18] MED LIST changes: -/METO5TA PO; -/QUIN20TA OR; -ALTE2VL IV; -AMLO10TA2 PO; -AMLO5TAB OR; -ASPI81TA83; -ASPI81TA83 OR; -ASPI81TA85 PO; -AVEL1TAB3 PO; -BACITAB PO; -BYSTOLIC OR; -CALC12502 OR; -CALC1TAB30 PO; -CALC600T31 PO; -CALCI50TA PO; -CARA1TAB6 PO; -CARV12.5 OR; -CARV12.5 PO; -CARV25TA OR; -CARV6.25 PO; -CO Q-10 OR; -CO Q100C PO; -COENZYME Q 10; -COLA100C2 OR; -CORE12.5; -CORE12.5 PO; -CYCL5TAB PO; -DARV100T; -DEMA20TA; -DOCU100C PO; -EPOG4000 IV; -FLUC10TA PO; -FOLI1TAB; -FOLI1TAB OR; +GASTROGRAFIN SOLUTION 30ML (Q9963) As Ordered; -HAIR1CHW PO; -HAIR1TAB5 PO; -HEPA1010VL INJ; -HUMA100I5 SC; -HUMULIN 70/30; -HYDR-3910 PO; -HYDR25TA PO; -INSUHUMDS SC; -INSULIN 70/30 SC; -INSULIN 70/30 SUBQ; -INSULIN ASPART SC; -IRON325T3 PO; -ISOS30TA4 PO; +ISOVUE-370 76% 100ML VIAL (Q9967) As Ordered; -LOSA100T36 PO; -MAG400TA PO; -METOPROLOL TARTRATE; -MICO7CR PV; -MIRA255PW PO; -MULTIVIT; -MULTIVIT OR; -NATU400T PO; -NEPH1CAP4 PO; -OMEP20CA3 PO; -OMEP40CA2 PO; -OS-CAL; -PERCOCET PO; -POTA20TA PO; -PRAV80TA2 PO; -PRAVASTATIN OR; -PRIL20CA; -PRIL20CA OR; -PROC IJ; -ROZE8TAB16 PO; -SENO8.6T9 PO; -SPIR25TA2 OR; -TRAM50TA2 PO; -TRAMADOL; -TYLE325T5 PO; -VITA10002 PO; -VITA500C24 PO; -VITA500T; -VITA500T OR; -VITA500T PO; -VITA500T88 PO; -VITMTA PO; -ZOCO10TA; -[UNRECOGNIZED DRUG - CODE]; -[UNRECOGNIZED DRUG - CODE] OR; -calcitrol PO; -insulin aspart SC; -novolog 70/30 SC
== END ==
LOC: M RAD 11:06
DX: J94.9 Pleural condition, unspecified (principal); M51.35 Other intervertebral disc degeneration, thoracolumbar region; Z90.710 Acquired absence of both cervix and uterus; R11.10 Vomiting, unspecified; R10.11 Right upper quadrant pain; N83.201 Unspecified ovarian cyst, right side
CPT/HCPCS: Q9963

== ENCOUNTER 2017-06-09 12:00 | Inpatient (IN) | payer MEDICARE, BC ==
[2017-06-08] MEDS: HumaLOG INSULIN (NovoLOG) PER UNIT SC (21:00)
[2017-06-09] MEDS: HumaLOG INSULIN (NovoLOG) PER UNIT SC ×4 (07:30→21:00)
[2017-06-09] MEDS: CLOPIDOGREL 75 MG TAB PO (09:00)
[2017-06-09] MEDS: HEPARIN SOD (PORCINE) 5000 UNITS/ML VIAL SC ×2 (09:00→21:52)
[2017-06-09] MEDS: LACTIC ACID 12% LOTION 225 GM BTL TOP (09:00)
[2017-06-09] MEDS: ASPIRIN 81 MG CHEW TABLET PO (09:00)
[~2017-06-09 12:00] MED LIST changes: +DEXTROSE 50% 50 ML SYRINGE IV; -GASTROGRAFIN SOLUTION 30ML (Q9963) As Ordered; +GLUCAGON FOR INJ 1 MG VIAL (J1610) SC; +GLUCOSE 4 GM CHEW TABLET PO; -ISOVUE-370 76% 100ML VIAL (Q9967) As Ordered
[2017-06-09] MEDS: ACETAMINOPHEN TAB 650MG DOSE (2X325MG) PO (16:54)
[2017-06-09] MEDS: LANTHANUM CARBONATE 500 MG CHEW TABLET PO (18:00)
[2017-06-09] MEDS ORDERED: (RENVELA) SEVELAMER **CARBONate** 800 MG TAB PO (18:00)
[2017-06-09] MEDS: PERCOCET 5MG/325MG TAB PO (19:49)
[2017-06-09 20:03] LABS: BEDSIDE GLUCOSE 225 MG/DL (83-110)
[2017-06-09] MEDS: PRAVASTATIN 20 MG TAB PO (21:52)
[2017-06-09] MEDS: SENOKOT S TAB PO (21:52)
[2017-06-09] MEDS: CARVedilol 6.25 MG TAB PO (21:53)
[2017-06-09] MEDS: RAMELTEON 8 MG TAB (ROZEREM) PO (23:41)
[2017-06-10 06:53] LABS: BEDSIDE GLUCOSE 136 MG/DL (83-110)
[2017-06-10 07:05] LABS: BASO % 0.7 % (0.0-1.0); EOS # 0.1 10^3/uL (0.0-0.50); EOS % 3.2 % (0.0-3.0); HEMATOCRIT 33.7 % (36.0-47.0); HEMOGLOBIN 9.9 g/dl (12.0-15.5); IMMATURE GRANULOCYTE % 0.2 % (0-3.0); LYMPH % 24.7 % (24.0-44.0); MEAN CORPUSCULAR HEMOGLOBIN 26.6 pg (27.0-33.0); MEAN CORPUSCULAR HGB CONC 29.4 g/dl (32.0-36.5); MEAN CORPUSCULAR VOLUME 90.6 fl (80.0-96.0); MONO # 0.5 10^3/uL (0.0-0.8); NEUTROPHILS # 2.4 10^3/uL (1.8-7.7); NEUTROPHILS % 59.2 % (36.0-66.0); PLATELET COUNT, AUTOMATED 115 10^3/uL (150-450); RED BLOOD COUNT 3.72 10^6/uL (4.00-5.40); RED CELL DISTRIBUTION WIDTH 17.1 % (11.5-14.5); WHITE BLOOD COUNT 4.1 10^3/uL (4.0-10.0)
[2017-06-10 07:25] LABS: ALBUMIN 3.1 GM/DL (3.2-5.2); ALBUMIN/GLOBULIN RATIO 0.89 (1.00-1.93); ALKALINE PHOSPHATASE 70 U/L (45-117); ALT/SGPT 16 U/L (12-78); ANION GAP 6 MEQ/L (8-16); AST/SGOT 16 U/L (7-37); BILIRUBIN,TOTAL 0.2 MG/DL (0.2-1.0); BLOOD UREA NITROGEN 28 MG/DL (7-18); CALCIUM LEVEL 8.6 MG/DL (8.8-10.2); CARBON DIOXIDE LEVEL 31 MEQ/L (21-32); CHLORIDE LEVEL 101 MEQ/L (98-107); CREATININE FOR GFR 7.11 MG/DL (0.55-1.30); GLOMERULAR FILTRATION RATE 7.3 (>39); GLUCOSE, FASTING 134 MG/DL (70-100); POTASSIUM SERUM 4.4 MEQ/L (3.5-5.1); SODIUM LEVEL 138 MEQ/L (136-145); TOTAL PROTEIN 6.6 GM/DL (6.4-8.2)
[2017-06-10] MEDS: LANTHANUM CARBONATE 500 MG CHEW TABLET PO ×3 (08:00→18:36)
[2017-06-10] MEDS: HumaLOG INSULIN (NovoLOG) PER UNIT SC ×4 (08:09→21:00)
[2017-06-10] MEDS: HEPARIN SOD (PORCINE) 5000 UNITS/ML VIAL SC ×2 (09:35→21:01)
[2017-06-10] MEDS: **hydrALAZINE HCL** 25 MG TAB PO ×2 (09:36→21:00)
[2017-06-10] MEDS: CLOPIDOGREL 75 MG TAB PO (09:36)
[2017-06-10] MEDS: CARVedilol 6.25 MG TAB PO ×2 (09:36→21:01)
[2017-06-10] MEDS: LEVEMIR (INSULIN DETEMIR) 1 UNITS/0.01ML SC (09:36)
[2017-06-10] MEDS: ASPIRIN 81 MG CHEW TABLET PO (09:36)
[2017-06-10] MEDS: SENOKOT S TAB PO ×2 (09:36→21:00)
[2017-06-10] MEDS: LACTIC ACID 12% LOTION 225 GM BTL TOP (09:37)
[2017-06-10 11:29] LABS: BEDSIDE GLUCOSE 172 MG/DL (83-110)
[2017-06-10 16:35] LABS: BEDSIDE GLUCOSE 130 MG/DL (83-110)
[2017-06-10 20:16] LABS: BEDSIDE GLUCOSE 250 MG/DL (83-110)
[2017-06-10] MEDS: RAMELTEON 8 MG TAB (ROZEREM) PO (21:00)
[2017-06-10] MEDS: PERCOCET 5MG/325MG TAB PO (21:01)
[2017-06-10] MEDS: PRAVASTATIN 20 MG TAB PO (21:01)
[2017-06-11] MEDS: ONDANSETRON 4 MG TAB (S0181) PO (00:52)
[2017-06-11 06:53] LABS: BEDSIDE GLUCOSE 134 MG/DL (83-110)
[2017-06-11] MEDS: LANTHANUM CARBONATE 500 MG CHEW TABLET PO ×3 (07:04→19:16)
[2017-06-11] MEDS: PERCOCET 5MG/325MG TAB PO ×2 (07:04→22:09)
[2017-06-11] MEDS: HumaLOG INSULIN (NovoLOG) PER UNIT SC ×4 (08:11→20:26)
[2017-06-11] MEDS: HEPARIN SOD (PORCINE) 5000 UNITS/ML VIAL SC ×2 (08:11→20:24)
[2017-06-11] MEDS: ASPIRIN 81 MG CHEW TABLET PO (08:12)
[2017-06-11] MEDS: CARVedilol 6.25 MG TAB PO ×2 (08:13→20:23)
[2017-06-11] MEDS: SENOKOT S TAB PO ×2 (08:13→20:23)
[2017-06-11] MEDS: LEVEMIR (INSULIN DETEMIR) 1 UNITS/0.01ML SC (08:13)
[2017-06-11] MEDS: CLOPIDOGREL 75 MG TAB PO (08:13)
[2017-06-11] MEDS: LACTIC ACID 12% LOTION 225 GM BTL TOP (08:15)
[2017-06-11] MEDS: **hydrALAZINE HCL** 25 MG TAB PO ×2 (08:15→20:23)
[2017-06-11 11:45] LABS: BEDSIDE GLUCOSE 147 MG/DL (83-110)
[2017-06-11 17:15] LABS: BEDSIDE GLUCOSE 112 MG/DL (83-110)
[2017-06-11] MEDS: RAMELTEON 8 MG TAB (ROZEREM) PO (20:23)
[2017-06-11] MEDS: PRAVASTATIN 20 MG TAB PO (20:23)
[2017-06-11 20:25] LABS: BEDSIDE GLUCOSE 107 MG/DL (83-110)
[2017-06-12] MEDS: PERCOCET 5MG/325MG TAB PO ×2 (06:27→21:58)
[2017-06-12 06:31] LABS: BEDSIDE GLUCOSE 125 MG/DL (83-110)
[2017-06-12] MEDS ORDERED: DARBEPOETIN 100 MCG/0.5 ML *DIALYSIS* SYRINGE (J0882) IV (08:00)
[2017-06-12] MEDS: LANTHANUM CARBONATE 500 MG CHEW TABLET PO ×4 (08:00→19:03)
[2017-06-12] MEDS: HEPARIN SOD (PORCINE) 5000 UNITS/ML VIAL SC ×2 (08:19→21:03)
[2017-06-12] MEDS: LEVEMIR (INSULIN DETEMIR) 1 UNITS/0.01ML SC (08:19)
[2017-06-12] MEDS: ASPIRIN 81 MG CHEW TABLET PO (08:20)
[2017-06-12] MEDS: CLOPIDOGREL 75 MG TAB PO (08:20)
[2017-06-12] MEDS: HumaLOG INSULIN (NovoLOG) PER UNIT SC ×4 (08:20→21:59)
[2017-06-12] MEDS: SENOKOT S TAB PO ×2 (08:20→21:02)
[2017-06-12] MEDS: CARVedilol 6.25 MG TAB PO ×2 (08:20→21:01)
[2017-06-12] MEDS: LACTIC ACID 12% LOTION 225 GM BTL TOP (08:22)
[2017-06-12] MEDS: HEPARIN 1,000 UNITS/ML 10ML VIAL (FOR RADIOLOGY& DIALYSIS ONLY) IV (10:15)
[2017-06-12] MEDS: MIRALAX *UNIT DOSE* 17GM PACKET PO (10:48)
[2017-06-12] MEDS: BISACODYL 5 MG TAB PO (10:48)
[2017-06-12] MEDS: SIMETHICONE 80 MG CHEW TAB PO (10:48)
[2017-06-12 11:51] LABS: BEDSIDE GLUCOSE 114 MG/DL (83-110)
[2017-06-12] MEDS ORDERED: MIRALAX *UNIT DOSE* 17GM PACKET PO (13:00)
[2017-06-12] MEDS: LACTULOSE 20 GM/30 ML SYRUP UD PO ×2 (14:13→21:03)
[2017-06-12] MEDS: PANTOPRAZOLE 20 MG TAB PO (14:13)
[2017-06-12 19:06] LABS: BEDSIDE GLUCOSE 133 MG/DL (83-110)
[2017-06-12] MEDS: PRAVASTATIN 20 MG TAB PO (21:02)
[2017-06-12] MEDS: RAMELTEON 8 MG TAB (ROZEREM) PO (21:02)
[2017-06-12 22:04] LABS: BEDSIDE GLUCOSE 241 MG/DL (83-110)
[2017-06-13] MEDS: PERCOCET 5MG/325MG TAB PO ×2 (05:07→22:06)
[2017-06-13 07:22] LABS: BEDSIDE GLUCOSE 152 MG/DL (83-110)
[2017-06-13] MEDS: **hydrALAZINE** 50 MG TAB PO ×2 (09:00→22:05)
[2017-06-13] MEDS: LACTIC ACID 12% LOTION 225 GM BTL TOP (09:00)
[2017-06-13] MEDS: LEVEMIR (INSULIN DETEMIR) 1 UNITS/0.01ML SC (09:00)
[2017-06-13] MEDS: HumaLOG INSULIN (NovoLOG) PER UNIT SC ×4 (09:06→20:08)
[2017-06-13] MEDS: SIMETHICONE 80 MG CHEW TAB PO (09:07)
[2017-06-13] MEDS: LANTHANUM CARBONATE 500 MG CHEW TABLET PO ×3 (09:07→18:39)
[2017-06-13] MEDS: ASPIRIN 81 MG CHEW TABLET PO (09:07)
[2017-06-13] MEDS: BISACODYL 5 MG TAB PO (09:07)
[2017-06-13] MEDS: PANTOPRAZOLE 20 MG TAB PO (09:07)
[2017-06-13] MEDS: MIRALAX *UNIT DOSE* 17GM PACKET PO (09:07)
[2017-06-13] MEDS: CLOPIDOGREL 75 MG TAB PO (09:07)
[2017-06-13] MEDS: CARVedilol 6.25 MG TAB PO ×2 (09:08→22:06)
[2017-06-13] MEDS: SENOKOT S TAB PO ×2 (09:08→22:05)
[2017-06-13] MEDS: LACTULOSE 20 GM/30 ML SYRUP UD PO ×2 (09:09→22:04)
[2017-06-13] MEDS: HEPARIN SOD (PORCINE) 5000 UNITS/ML VIAL SC (09:09)
[2017-06-13 11:34] LABS: BEDSIDE GLUCOSE 209 MG/DL (83-110)
[2017-06-13 16:46] LABS: BEDSIDE GLUCOSE 110 MG/DL (83-110)
[2017-06-13 20:18] LABS: BEDSIDE GLUCOSE 118 MG/DL (83-110)
[2017-06-13] MEDS: RAMELTEON 8 MG TAB (ROZEREM) PO (22:05)
[2017-06-13] MEDS: PRAVASTATIN 20 MG TAB PO (22:05)
[2017-06-14] MEDS: PERCOCET 5MG/325MG TAB PO (03:58)
[2017-06-14 06:08] LABS: BEDSIDE GLUCOSE 152 MG/DL (83-110)
[2017-06-14] MEDS: LANTHANUM CARBONATE 500 MG CHEW TABLET PO ×3 (08:43→18:04)
[2017-06-14] MEDS: BISACODYL 5 MG TAB PO (08:43)
[2017-06-14] MEDS: SIMETHICONE 80 MG CHEW TAB PO (08:43)
[2017-06-14] MEDS: ASPIRIN 81 MG CHEW TABLET PO (08:43)
[2017-06-14] MEDS: SENOKOT S TAB PO ×2 (08:43→20:55)
[2017-06-14] MEDS: PANTOPRAZOLE 20 MG TAB PO (08:43)
[2017-06-14] MEDS: CLOPIDOGREL 75 MG TAB PO (08:43)
[2017-06-14] MEDS: CARVedilol 6.25 MG TAB PO ×2 (08:44→20:55)
[2017-06-14] MEDS: MIRALAX *UNIT DOSE* 17GM PACKET PO (08:44)
[2017-06-14] MEDS: LEVEMIR (INSULIN DETEMIR) 1 UNITS/0.01ML SC (08:45)
[2017-06-14] MEDS: HumaLOG INSULIN (NovoLOG) PER UNIT SC ×4 (08:45→20:26)
[2017-06-14] MEDS: LACTULOSE 20 GM/30 ML SYRUP UD PO ×2 (08:45→20:54)
[2017-06-14] MEDS: LACTIC ACID 12% LOTION 225 GM BTL TOP (08:46)
[2017-06-14] MEDS: ONDANSETRON 4 MG TAB (S0181) PO (09:20)
[2017-06-14] MEDS ORDERED: FLEET ENEMA PR (09:30)
[2017-06-14] MEDS: FLEET ENEMA PR (09:30)
[2017-06-14] MEDS: HEPARIN 1,000 UNITS/ML 10ML VIAL (FOR RADIOLOGY& DIALYSIS ONLY) IV (10:30)
[2017-06-14] MEDS: LIDOCAINE 1% SDV 5 ML VIAL SQ (10:30)
[2017-06-14 11:36] LABS: BEDSIDE GLUCOSE 116 MG/DL (83-110)
[2017-06-14 14:44] LABS: HEMATOCRIT 32.5 % (36.0-47.0); HEMOGLOBIN 9.7 g/dl (12.0-15.5); MEAN CORPUSCULAR HEMOGLOBIN 26.9 pg (27.0-33.0); MEAN CORPUSCULAR HGB CONC 29.8 g/dl (32.0-36.5); PLATELET COUNT, AUTOMATED 148 10^3/uL (150-450); RED BLOOD COUNT 3.61 10^6/uL (4.00-5.40); RED CELL DISTRIBUTION WIDTH 17.2 % (11.5-14.5); WHITE BLOOD COUNT 5.1 10^3/uL (4.0-10.0)
[2017-06-14 14:58] LABS: ALBUMIN 3.3 GM/DL (3.2-5.2); ANION GAP 9 MEQ/L (8-16); BLOOD UREA NITROGEN 53 MG/DL (7-18); CALCIUM LEVEL 8.7 MG/DL (8.8-10.2); CARBON DIOXIDE LEVEL 27 MEQ/L (21-32); CHLORIDE LEVEL 102 MEQ/L (98-107); GLOMERULAR FILTRATION RATE 4.9 (>39); GLUCOSE, FASTING 95 MG/DL (70-100); PHOSPHORUS LEVEL 4.1 MG/DL (2.5-4.9); SODIUM LEVEL 138 MEQ/L (136-145)
[2017-06-14 15:11] LABS: POTASSIUM SERUM 5.7 MEQ/L (3.5-5.1)
[2017-06-14 18:10] LABS: BEDSIDE GLUCOSE 119 MG/DL (83-110)
[2017-06-14 20:32] LABS: BEDSIDE GLUCOSE 245 MG/DL (83-110)
[2017-06-14] MEDS: RAMELTEON 8 MG TAB (ROZEREM) PO (20:55)
[2017-06-14] MEDS: PRAVASTATIN 20 MG TAB PO (20:55)
[2017-06-14] MEDS: HEPARIN SOD (PORCINE) 5000 UNITS/ML VIAL SQ (20:55)
[2017-06-15 06:46] LABS: BEDSIDE GLUCOSE 155 MG/DL (83-110)
[2017-06-15] MEDS ORDERED: BISACODYL 5 MG TAB PO (09:00)
[2017-06-15] MEDS: LACTULOSE 20 GM/30 ML SYRUP UD PO ×2 (09:30→09:33)
[2017-06-15] MEDS: ASPIRIN 81 MG CHEW TABLET PO (09:31)
[2017-06-15] MEDS: HumaLOG INSULIN (NovoLOG) PER UNIT SC ×4 (09:31→21:00)
[2017-06-15] MEDS: LANTHANUM CARBONATE 500 MG CHEW TABLET PO ×3 (09:31→18:45)
[2017-06-15] MEDS: CLOPIDOGREL 75 MG TAB PO (09:31)
[2017-06-15] MEDS: CARVedilol 6.25 MG TAB PO ×2 (09:32→21:43)
[2017-06-15] MEDS: SIMETHICONE 80 MG CHEW TAB PO (09:32)
[2017-06-15] MEDS: **hydrALAZINE** 50 MG TAB PO ×2 (09:32→21:43)
[2017-06-15] MEDS: LEVEMIR (INSULIN DETEMIR) 1 UNITS/0.01ML SC (09:33)
[2017-06-15] MEDS: PANTOPRAZOLE 20 MG TAB PO (09:33)
[2017-06-15] MEDS: HEPARIN SOD (PORCINE) 5000 UNITS/ML VIAL SQ ×2 (09:33→21:43)
[2017-06-15] MEDS: BISACODYL 5 MG TAB PO (09:34)
[2017-06-15] MEDS: MIRALAX *UNIT DOSE* 17GM PACKET PO (09:34)
[2017-06-15] MEDS: SENOKOT S TAB PO (09:34)
[2017-06-15] MEDS: LACTIC ACID 12% LOTION 225 GM BTL TOP (09:36)
[2017-06-15] MEDS: LOPERAMIDE 2 MG CAP PO (11:44)
[2017-06-15 11:50] LABS: BEDSIDE GLUCOSE 194 MG/DL (83-110)
[2017-06-15] MEDS: PINK BISMUTH SUSP 524MG/30ML ORAL SYRINGE PO (13:03)
[2017-06-15 16:34] LABS: BEDSIDE GLUCOSE 122 MG/DL (83-110)
[2017-06-15 20:54] LABS: BEDSIDE GLUCOSE 163 MG/DL (83-110)
[2017-06-15] MEDS: PRAVASTATIN 20 MG TAB PO (21:42)
[2017-06-15] MEDS: RAMELTEON 8 MG TAB (ROZEREM) PO (21:43)
[2017-06-15] MEDS: PERCOCET 5MG/325MG TAB PO (23:32)
[2017-06-16 06:48] LABS: BEDSIDE GLUCOSE 121 MG/DL (83-110)
[2017-06-16] MEDS: LANTHANUM CARBONATE 500 MG CHEW TABLET PO ×3 (08:00→18:11)
[2017-06-16] MEDS: CARVedilol 6.25 MG TAB PO ×2 (08:50→21:11)
[2017-06-16] MEDS: PANTOPRAZOLE 20 MG TAB PO (08:50)
[2017-06-16] MEDS: ASPIRIN 81 MG CHEW TABLET PO (08:50)
[2017-06-16] MEDS: CLOPIDOGREL 75 MG TAB PO (08:50)
[2017-06-16] MEDS: SIMETHICONE 80 MG CHEW TAB PO (08:50)
[2017-06-16] MEDS: HEPARIN SOD (PORCINE) 5000 UNITS/ML VIAL SQ ×2 (08:50→21:09)
[2017-06-16] MEDS: LEVEMIR (INSULIN DETEMIR) 1 UNITS/0.01ML SC (08:51)
[2017-06-16] MEDS: HumaLOG INSULIN (NovoLOG) PER UNIT SC ×4 (08:51→21:00)
[2017-06-16] MEDS: LACTIC ACID 12% LOTION 225 GM BTL TOP (08:54)
[2017-06-16] MEDS: LIDOCAINE 1% SDV 5 ML VIAL SQ (10:45)
[2017-06-16] MEDS: HEPARIN 1,000 UNITS/ML 10ML VIAL (FOR RADIOLOGY& DIALYSIS ONLY) IV (10:45)
[2017-06-16 11:40] LABS: BEDSIDE GLUCOSE 156 MG/DL (83-110)
[2017-06-16 16:45] LABS: BEDSIDE GLUCOSE 84 MG/DL (83-110)
[2017-06-16] MEDS: PRAVASTATIN 20 MG TAB PO (21:09)
[2017-06-16] MEDS: RAMELTEON 8 MG TAB (ROZEREM) PO (21:10)
[2017-06-16 21:11] LABS: BEDSIDE GLUCOSE 237 MG/DL (83-110)
[2017-06-16] MEDS: PERCOCET 5MG/325MG TAB PO (21:14)
[2017-06-17 06:50] LABS: BEDSIDE GLUCOSE 142 MG/DL (83-110)
[2017-06-17] MEDS: LANTHANUM CARBONATE 500 MG CHEW TABLET PO ×2 (07:37→11:55)
[2017-06-17] MEDS: ASPIRIN 81 MG CHEW TABLET PO (08:19)
[2017-06-17] MEDS: HEPARIN SOD (PORCINE) 5000 UNITS/ML VIAL SQ (08:19)
[2017-06-17] MEDS: HumaLOG INSULIN (NovoLOG) PER UNIT SC ×2 (08:19→11:56)
[2017-06-17] MEDS: SIMETHICONE 80 MG CHEW TAB PO (08:20)
[2017-06-17] MEDS: LEVEMIR (INSULIN DETEMIR) 1 UNITS/0.01ML SC (08:20)
[2017-06-17] MEDS: **hydrALAZINE** 50 MG TAB PO (08:20)
[2017-06-17] MEDS: CARVedilol 6.25 MG TAB PO (08:20)
[2017-06-17] MEDS: CLOPIDOGREL 75 MG TAB PO (08:20)
[2017-06-17] MEDS: PANTOPRAZOLE 20 MG TAB PO (08:20)
[2017-06-17] MEDS: LACTIC ACID 12% LOTION 225 GM BTL TOP (08:22)
[2017-06-17 11:53] LABS: BEDSIDE GLUCOSE 169 MG/DL (83-110)
== END 2017-06-17 13:15 | disposition home or self-care (01) | DRG 56 ==
LOC: M PM&R 12:00
PROVIDERS: Physical Medicine & Rehabilitation
PROC: 5A1D70Z Performance of Urinary Filtration, Intermittent, Less than 6 Hours Per Day (ICD-10-PCS; principal; 2017-06-09)
DX: I69.332 Monoplegia of upper limb following cerebral infarction affecting left dominant side (principal); N18.6 End stage renal disease; I13.2 Hypertensive heart and chronic kidney disease with heart failure and with stage 5 chronic kidney disease, or end stage renal disease; I50.32 Chronic diastolic (congestive) heart failure; N25.81 Secondary hyperparathyroidism of renal origin; I69.328 Other speech and language deficits following cerebral infarction; E11.22 Type 2 diabetes mellitus with diabetic chronic kidney disease; I69.391 Dysphagia following cerebral infarction; I69.392 Facial weakness following cerebral infarction; I25.10 Atherosclerotic heart disease of native coronary artery without angina pectoris; R14.0 Abdominal distension (gaseous); D63.1 Anemia in chronic kidney disease; K59.00 Constipation, unspecified; M79.89 Other specified soft tissue disorders; E11.65 Type 2 diabetes mellitus with hyperglycemia; R19.7 Diarrhea, unspecified; R11.0 Nausea; E78.00 Pure hypercholesterolemia, unspecified; E11.42 Type 2 diabetes mellitus with diabetic polyneuropathy; Z99.2 Dependence on renal dialysis; Z79.82 Long term (current) use of aspirin; Z79.4 Long term (current) use of insulin; Z79.899 Other long term (current) drug therapy; Z95.1 Presence of aortocoronary bypass graft

== ENCOUNTER 2017-06-20 14:02 | Outpatient (RCR) | payer MEDICARE, BC | END 2017-06-26 | LOC: M PT 14:02 | DX: Z51.89 Encounter for other specified aftercare (principal); I63.9 Cerebral infarction, unspecified; G81.91 Hemiplegia, unspecified affecting right dominant side | CPT/HCPCS: 97162 ==

== ENCOUNTER → 2017-06-22 | Outpatient (CLI) | payer MEDICARE, BC ==
[~2017-06-22] MED LIST changes: -DEXTROSE 50% 50 ML SYRINGE IV; -GLUCAGON FOR INJ 1 MG VIAL (J1610) SC; -GLUCOSE 4 GM CHEW TABLET PO; +ISOVUE-300 61% 50ML VIAL (Q9967) As Ordered; +MIDAZOLAM INJ 2 MG/2 ML VIAL (J2250) As Ordered; +fentaNYL 100 MCG/2 ML INJECTION (J3010) As Ordered
== END | disposition home or self-care (01) ==
LOC: M IRPRO 07:54
DX: T82.858A Stenosis of other vascular prosthetic devices, implants and grafts, initial encounter (principal); I87.1 Compression of vein; N18.6 End stage renal disease; Z99.2 Dependence on renal dialysis
CPT/HCPCS: 36902

== ENCOUNTER 2018-02-21 14:37 | Inpatient (IN) | payer MEDICARE, BC ==
[~2018-02-21] VITALS: Ht 165.1 cm; Wt 72.3 kg
[~2018-02-21 14:37] MED LIST changes: +/METO5TA PO; +/QUIN20TA OR; +ALTE2VL IV; +AMLO10TA4 PO; +AMLO5TAB OR; +AMMO12CR4 TOP; +ASPI81TA83; +ASPI81TA83 OR; +ASPI81TA85 PO; +AVEL1TAB3 PO; +BACITAB PO; +BYSTOLIC OR; +CALC12502 OR; +CALC1TAB30 PO; +CALC600T31 PO; +CALCI50TA PO; +CARA1TAB6 PO; +CARV12.5 OR; +CARV12.5 PO; +CARV25TA OR; +CARV6.25 PO; +CHIL81CH2 PO; +CLOP75TA2 PO; +CO Q-10 OR; +CO Q100C PO; +COENZYME Q 10; +COLA100C2 OR; +CORE12.5; +CORE12.5 PO; +CYCL5TAB PO; +DARV100T; +DEMA20TA; +DOCU100C PO; +EPOG4000 IV; +FLUC10TA PO; +FOLI1TAB; +FOLI1TAB OR; +HAIR1CHW PO; +HAIR1TAB5 PO; +HEPA1010VL INJ; +HUMA100I5 SC; +HUMULIN 70/30; +HYDR-3910 PO; +HYDR25TA PO; +HYDR50TA PO; +INSUHUMDS SC; +INSULANT SC; +INSULIN 70/30 SC; +INSULIN 70/30 SUBQ; +INSULIN ASPART SC; +IRON325T3 PO; +ISOS30TA4 PO; -ISOVUE-300 61% 50ML VIAL (Q9967) As Ordered; +LANT500C PO; +LOSA-4 PO; +MAG400TA PO; +METOPROLOL TARTRATE; +MICO7CR PV; -MIDAZOLAM INJ 2 MG/2 ML VIAL (J2250) As Ordered; +MIRA255PW PO; +MIRA3350 PO; +MULTIVIT; +MULTIVIT OR; +NATU400T PO; +NEPH1CAP4 PO; +OMEP20CA3 PO; +OMEP40CA2 PO; +OS-CAL; +OXYC1TAB23 PO; +PANT20TA2 PO; +PERCOCET PO; +POTA20TA PO; +PRAV80TA2 PO; +PRAVASTATIN OR; +PRIL20CA; +PRIL20CA OR; +PROC IJ; +RENV2TAB PO; +ROZE8TAB16 PO; +SENN8.6C PO; +SENO8.6T9 PO; +SIME80TA PO; +SPIR25TA2 OR; +TRAM50TA2 PO; +TRAMADOL; +TYLE325T5 PO; +VITA10002 PO; +VITA500C24 PO; +VITA500T; +VITA500T OR; +VITA500T PO; +VITA500T88 PO; +VITMTA PO; +ZOCO10TA; +[UNRECOGNIZED DRUG - CODE]; +[UNRECOGNIZED DRUG - CODE] OR; +calcitrol PO; -fentaNYL 100 MCG/2 ML INJECTION (J3010) As Ordered; +insulin aspart SC; +novolog 70/30 SC
[2018-02-21] MEDS ORDERED: HYDR-3713 PO (15:33)
[2018-02-21] MEDS ORDERED: CYCL5TAB PO (15:33)
[2018-02-21] MEDS ORDERED: VITA500C24 PO (15:33)
[2018-02-21] MEDS ORDERED: COLA100C5 PO (15:33)
[2018-02-21] MEDS ORDERED: CO Q10CA PO (15:33)
[2018-02-21] MEDS ORDERED: AMLO5TAB4 PO (15:33)
[2018-02-21] MEDS ORDERED: MORPHINE 4 MG/ML 1ML VIAL/SYRINGE (J2270) IV ONE (17:15)
[2018-02-21 17:35] LABS: BASO % 0.4 % (0.0-1.0); EOS # 0.2 10^3/uL (0.0-0.50); EOS % 2.7 % (0.0-3.0); HEMATOCRIT 27.8 % (36.0-47.0); HEMOGLOBIN 8.4 g/dl (12.0-15.5); LYMPH # 0.9 10^3/uL (1.5-4.5); LYMPH % 12.8 % (24.0-44.0); MEAN CORPUSCULAR HEMOGLOBIN 27.2 pg (27.0-33.0); MEAN CORPUSCULAR HGB CONC 30.2 g/dl (32.0-36.5); MONO # 0.6 10^3/uL (0.0-0.8); MONO % 8.5 % (0.0-5.0); NEUTROPHILS # 5.3 10^3/uL (1.8-7.7); PLATELET COUNT, AUTOMATED 223 10^3/uL (150-450); RED BLOOD COUNT 3.09 10^6/uL (4.00-5.40)
[2018-02-21 17:49] LABS: PROTHROMBIN TIME 13.3 SECONDS (12.1-14.4)
[2018-02-21 17:50] LABS: PARTIAL THROMBOPLASTIN TIME 29.7 SECONDS (25.4-37.6)
[2018-02-21 17:58] LABS: ERYTHROCYTE SEDIMENTATION RATE > 140 mm/hr (0-30)
[2018-02-21 18:16] LABS: ALBUMIN 2.9 GM/DL (3.2-5.2); ALT/SGPT 14 U/L (12-78); BILIRUBIN,DIRECT < 0.1 MG/DL (0.0-0.2); BILIRUBIN,TOTAL 0.4 MG/DL (0.2-1.0); BLOOD UREA NITROGEN 64 MG/DL (7-18); C REACTIVE PROTEIN QUANTITATIV 2.08 MG/DL (0.00-0.30); CALCIUM LEVEL 8.8 MG/DL (8.8-10.2); CARBON DIOXIDE LEVEL 27 MEQ/L (21-32); CHLORIDE LEVEL 100 MEQ/L (98-107); GLOMERULAR FILTRATION RATE 4.2 (>39); GLUCOSE, FASTING 148 MG/DL (70-100); SODIUM LEVEL 136 MEQ/L (136-145); TOTAL PROTEIN 6.5 GM/DL (6.4-8.2)
[2018-02-21] MEDS ORDERED: VITMTA PO (18:46)
[2018-02-21] MEDS ORDERED: ROZE8TAB16 PO (18:46)
[2018-02-21] MEDS ORDERED: ASPE16CR TOP (18:46)
[2018-02-21] MEDS ORDERED: MIRA3350 PO (18:46)
[2018-02-21] MEDS ORDERED: ASPI1TAB15 PO (18:51)
[2018-02-21] MEDS ORDERED: CARV6.25 PO (18:51)
[2018-02-21] MEDS ORDERED: PLAV1TAB2 PO (18:51)
[2018-02-21] MEDS ORDERED: HUMA100I3 SC (18:51)
[2018-02-21] MEDS ORDERED: INSULANT SC (18:51)
[2018-02-21] MEDS ORDERED: COEN100C2 PO (18:51)
[2018-02-21] MEDS ORDERED: HYDR-3911 PO (18:53)
[2018-02-21] MEDS ORDERED: SOD POLYSTYRENE SULFONATE SUSP 15 GM/60 ML UD PO ONE (19:00)
[2018-02-21] MEDS ORDERED: hydrALAZINE INJ 20 MG/ML VIAL IV ONE (20:30)
[2018-02-21] MEDS ORDERED: MIRALAX *UNIT DOSE* 17GM PACKET PO PRN (20:45)
[2018-02-21] MEDS ORDERED: DOCUSATE SODIUM 100 MG CAP PO PRN (20:45)
[2018-02-21] MEDS ORDERED: CYCLOBENZAPRINE 5MG TABLET PO PRN (20:45)
[2018-02-21] MEDS: CARVedilol 6.25 MG TAB PO SCH (21:49)
[2018-02-21] MEDS: PRAVASTATIN 20 MG TAB PO SCH (21:49)
[2018-02-21 23:00] VITALS: BP 150/60
[2018-02-21] MEDS: NORCO, ANEXSIA 5/325MG TABLET (HYDROcodone/ACETAMINOPHEN) PO PRN (23:14)
[2018-02-22] MEDS: NORCO, ANEXSIA 5/325MG TABLET (HYDROcodone/ACETAMINOPHEN) PO PRN ×2 (03:19→21:28)
[2018-02-22 06:00] VITALS: BP 136/79
[2018-02-22 06:23] LABS: BASO % 0.2 % (0.0-1.0); EOS # 0.2 10^3/uL (0.0-0.50); EOS % 2.9 % (0.0-3.0); HEMATOCRIT 23.1 % (36.0-47.0); HEMOGLOBIN 7.2 g/dl (12.0-15.5); LYMPH # 0.8 10^3/uL (1.5-4.5); LYMPH % 13.6 % (24.0-44.0); MEAN CORPUSCULAR HEMOGLOBIN 27.8 pg (27.0-33.0); MEAN CORPUSCULAR HGB CONC 31.2 g/dl (32.0-36.5); MEAN CORPUSCULAR VOLUME 89.2 fl (80.0-96.0); MONO # 0.5 10^3/uL (0.0-0.8); MONO % 8.1 % (0.0-5.0); NEUTROPHILS # 4.4 10^3/uL (1.8-7.7); NEUTROPHILS % 74.9 % (36.0-66.0); PLATELET COUNT, AUTOMATED 207 10^3/uL (150-450); RED BLOOD COUNT 2.59 10^6/uL (4.00-5.40); WHITE BLOOD COUNT 5.9 10^3/uL (4.0-10.0)
[2018-02-22 06:58] LABS: CALCIUM LEVEL 8.3 MG/DL (8.8-10.2); CREATININE FOR GFR 12.4 MG/DL (0.55-1.30); GLOMERULAR FILTRATION RATE 3.8 (>39); POTASSIUM SERUM 4.7 MEQ/L (3.5-5.1)
[2018-02-22] MEDS: ASCORBIC ACID 500 MG TAB PO SCH (07:38)
[2018-02-22] MEDS: MULTIVITAMINS/MINERALS THERAP 1 TAB PO SCH (07:38)
[2018-02-22] MEDS: ASPIRIN 81 MG ENTERIC TAB PO SCH (07:38)
[2018-02-22] MEDS: CARVedilol 6.25 MG TAB PO SCH ×2 (07:38→21:29)
[2018-02-22] MEDS: CLOPIDOGREL 75 MG TAB PO SCH (07:39)
[2018-02-22] MEDS: CO-ENZYME Q10 50 MG CAP PO SCH (07:49)
[2018-02-22] MEDS: LEVEMIR (INSULIN DETEMIR) 1 UNITS/0.01ML SC SCH (07:49)
--- NOTE | 2018-02-22 07:49 | HPE ---
DATE OF ADMISSION: 02/21/2018 73-year-old female with a past medical history of hypertension, diabetes, chronic systolic heart failure, end-stage renal disease on hemodialysis Monday, Monday and Monday and coronary artery disease status post bypass surgery. Presents to the emergency room with difficulty in ambulation and low back pain. She just was discharged from [facility] after having a lumbar laminectomy. Her last dialysis was on Monday. She denies any chest pain or shortness of breath, and she has no evidence of uremic symptoms. Upon speaking with Dr. Kiran, he recommended the patient stay in house to receive hemodialysis first thing in the morning. So she will be admitted for this reason. PAST MEDICAL HISTORY: Hypertension. Diabetes. Chronic systolic heart failure. End-stage renal disease on hemodialysis Monday, Monday and Monday. Coronary artery disease status post bypass. Secondary hyperparathyroidism. Hyperlipidemia. Diabetic neuropathy. PAST SURGICAL HISTORY: Arteriovenous fistula placement in the left arm. ALLERGIES: ATORVASTATIN. FAMILY HISTORY: Negative for coronary disease. SOCIAL HISTORY: Patient denies alcohol or illicit drugs. MEDICATIONS: She takes at home are as follows: - acetaminophen/hydrocodone one tablet orally every 4 hours as needed - amlodipine 5 mg orally daily - ascorbic acid 500 mg orally daily - aspirin 81 mg orally daily - Coreg 6.25 mg orally daily - Plavix 75 mg orally daily - cyclobenzaprine 5 mg orally daily as needed - Colace 100 mg orally daily as needed - hydralazine 50 mg orally four times a day, Monday, Monday, and Monday, twice daily. - insulin glargine 13 units subcu daily - Lispro sliding scale - multivitamin one tablet orally daily - pravastatin 80 mg orally at bedtime - ramelteon 80 mg orally at bedtime as needed REVIEW OF SYSTEMS: Negative for all major systems except for what was mentioned in the history of present illness (HPI). VITALS: Blood pressure 172/81, heart rate 104 regular, respiratory rate 18, temperature 98.6, oxygen saturation 90% in room air. HEAD: Atraumatic, normocephalic. NECK: Supple without jugular venous distention (JVD). LUNGS: Clear to auscultation. HEART: S1, S2 audible. No murmurs appreciated. ABDOMEN: Soft. Positive bowel sounds. EXTREMITIES: +1 pedal edema bilaterally. Skin intact. Positive thrill in her left arm fistula. NEUROLOGIC: Patient awake, alert times three. LABS: WBC 7, hemoglobin 8.4, hematocrit 27.8, platelets 223,000. Sodium 136, potassium 6.0, chloride 100, CO2 27, anion gap 9, BUN 64, creatinine 11.6, lactic acid 1, fasting glucose 148. 12-lead EKG showed no peak T-waves. IMPRESSION: 1. End-stage renal disease. 2. Debility. PLAN: Patient is to be admitted to medical/surgical floor. We will have the patient get her hemodialysis in the morning. I will continue all of her preadmission medications. I will have physical therapy see her in the morning as well. Patient, at this time, has no uremic symptoms and is mildly overloaded, however, blood pressure is controlled with IV hydralazine. Will continue that as needed. Will continue her care in the medical/surgical floor.
[2018-02-22] MEDS: LACTIC ACID 12% LOTION 225 GM BTL TOP SCH (07:50)
--- NOTE | 2018-02-22 08:58 | IPNPDOC ---
Text Note Date of Service The patient was seen on 02/22/18. NOTE CC; Difficulty walking, back pain, missed dialysis on Monday Subjective: Patient was examined at bedside, she complained of lower extremity pain, and difficulty ambulating. She stated that her back pain was radiating from her lower back to bilateral feet. Patient is status post laminectomy performed at [place] by Dr. Giovani Forbes. Patient has a past medical histo ry of end-stage renal disease, with chronic dialysis on Monday, Monday and Monday. Patient missed dialysis on Monday. She was admitted for dialysis, nephrology consulted. She was tachycardic over night PE GENERAL APPEARANCE:Laying in bed, Complaining of bilateral leg pain SKIN: Warm, well perfused. Healing surgical scar on her lumbar, LUNGS: Clear to auscultation bilaterally. HEART: Normal S1, S2. No murmurs, no rubs, no gallops ABDOMEN: Soft. No masses. Bowel sounds are present. EXTREMITIES: Moves all extremities equally. No gross deformities. 3/5 strength in bilateral lower extremity PULSES: 2+ upper and lower extremity . NEURO: Sensation intact, Assessment A 73-year-old -[place] female with past medical history of hypertension, diabetes, chronic systolic and diastolic heart failure, end-stage renal disease on hemodialysis Monday, Monday, Monday, CAD, status post bypass, hypertension, hyperlipidemia, and diabetic neuropathy, presenting with difficulty ambulation following laminectomy earlier this week at [facility]. Patient also missed dialysis on Monday. End-stage renal disease --Dialysis scheduled for this morning --Nephrology consulted Hyperkalemia --Kayexalate --Pending dialysis today Tachycardia 2/2 to end stated renal disease, 2/2 anemia --Dialysis today -- 2 units of blood transfusion ordered --She denies any cardiac symptoms --Will continue to monitor Anemia, secondary to renal disease, perhaps secondary to recent surgery. --2 units of blood transfusion ordered --Will monitor H&H Difficulty ambulation, 2/2 to back pain, 2/2 to recent surgery --Physical therapy on board Diabetes --13 units of Levemir daily --Carbohydrate consistent diet --Sliding scale insulin Hypertension --Continue home meds Hyperlipidemia --Continue home meds CAD --Continue home meds VS,Fishbone, I+O VS, Fishbone, I+O Laboratory Tests 02/21/18 17:27 Red Blood Count 3.09 L, Mean Corpuscular Volume 90.0, Mean Corpuscular Hemoglobin 27.2, Mean Corpuscular Hemoglobin Concent 30.2 L, Red Cell Distribution Width 16.3 H, Neutrophils (%) (Auto) 75.0 H, Lymphocytes (%) (Auto) 12.8 L, Monocytes (%) (Auto) 8.5 H, Eosinophils (%) (Auto) 2.7, Basophils (%) (Auto) 0.4, Neutrophils # (Auto) 5.3, Lymphocytes # (Auto) 0.9 L, Monocytes # (Auto) 0.6, Eosinophils # (Auto) 0.2, Basophils # (Auto) 0.0 02/22/18 06:00 Red Blood Count 2.59 L, Mean Corpuscular Volume 89.2, Mean Corpuscular Hem oglobin 27.8, Mean Corpuscular Hemoglobin Concent 31.2 L, Red Cell Distribution Width 16.4 H, Neutrophils (%) (Auto) 74.9 H, Lymphocytes (%) (Auto) 13.6 L, Monocytes (%) (Auto) 8.1 H, Eosinophils (%) (Auto) 2.9, Basophils (%) (Auto) 0.2, Neutrophils # (Auto) 4.4, Lymphocytes # (Auto) 0.8 L, Monocytes # (Auto) 0.5, Eosinophils # (Auto) 0.2, Basophils # (Auto) 0.0, Calcium Level 8.3 L Vital Signs Date Time Temp Pulse Resp B/P (MAP) Pulse Ox O2 Delivery O2 Flow Rate FiO2 02/22/18 07:38 116 136/79 02/22/18 06:00 98.1 17 93 Room Air I&O- Last 24 Hours up to 6 AM 02/22/18 06:00 Intake Total 0 ml Output Total 0 ml Balance 0 ml GME ATTESTATION GME ATTESTATION My faculty preceptor for this patient encounter was physically present during the encounter and was fully available. All aspects of the patient interview, examination, medical decision making process, and medical care plan development were reviewed and approved by the faculty preceptor. The faculty preceptor is aware and concurs with the plan as stated in the body of this note and will attest to such by his/her cosignature. SHELL RAYMOND DO Feb 22, 2018 08:58
[2018-02-22] MEDS ORDERED: DEXTROSE 50% 50 ML SYRINGE IV PRN (09:00)
[2018-02-22] MEDS ORDERED: GLUCAGON FOR INJ 1 MG VIAL (J1610) SC PRN (09:00)
[2018-02-22] MEDS ORDERED: **hydrALAZINE** 50 MG TAB PO SCH (09:00)
[2018-02-22] MEDS ORDERED: amLODIPine 5 MG TAB PO SCH (09:00)
[2018-02-22] MEDS ORDERED: GLUCOSE 4 GM CHEW TABLET PO PRN (09:00)
[2018-02-22] MEDS ORDERED: DARBEPOETIN 100 MCG/0.5 ML *DIALYSIS* SYRINGE (J0882) IV SCH (09:15)
[2018-02-22 09:38] LABS: PERCENT SATURATION 13.7 % (13.2-45.0)
--- NOTE | 2018-02-22 13:10 | ECGEPIP ---
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
--- NOTE | 2018-02-22 13:44 | CR ---
DATE OF CONSULTATION: 02/22/2018 REQUESTING PHYSICIAN: Dr. Dion Ariza. REASON FOR CONSULTATION: Management of end-stage renal disease and arrangement of hemodialysis. CHIEF COMPLAINT: Patient presented to the emergency room yesterday because of weakness, inability to walk and missing hemodialysis. HISTORY OF PRESENT ILLNESS: Bree Acosta is a 73-year-old female with a past medical history of end-stage renal disease on hemodialysis every Monday, Monday, Monday. History of combined systolic and diastolic congestive heart failure, hypertension, recent history of cerebrovascular accident (CVA) and multiple other comorbidities. She had chronic back pain and she was recently admitted at [facility] for L3-4 lumbar laminectomy for chronic back pain and spinal stenosis. When she was admitted over there, postop course was complicated by metabolic encephalopathy and possible pneumonia. I looked at the labs. She was anemic over there as well and she required two units of packed red blood cells (PRBC) transfusion. However, patient was sent home and she reports that ever since she came home, she was feeling very weak. She was unable to walk. She had back pain. She missed her hemodialysis session yesterday. She presented to the emergency room yesterday. She was hyperkalemic with a potassium of 6. Patient was also found to be anemic with a hemoglobin of 8.4. She was admitted under the hospitalist service yesterday. Nephrology service was called for further help in the management of this patient's end-stage renal disease and arrangement of hemodialysis. I saw and evaluated the patient this morning during hemodialysis procedure. She was tolerating the hemodialysis procedure well. Her hemoglobin has further dropped to 7.2. She is getting PRBC transfusion with hemodialysis as well. PAST MEDICAL HISTORY: End-stage renal disease on hemodialysis every Monday, Monday, Monday. Chronic combined systolic and diastolic congestive heart failure with a left ventricle ejection fraction of around 35%. Hypertension. Diabetes mellitus type 2. Coronary artery disease status post coronary artery bypass graft (CABG). Hyperlipidemia. Cerebrovascular accident (CVA) with residual slurred speech. Diabetic neuropathy. Spinal stenosis and chronic back pain. PAST SURGICAL HISTORY: Status post left upper arm arteriovenous fistula creation. Status post coronary artery bypass grafting. Status post lumbar spinal laminectomy at L2, L3, L4 at [facility] a few days ago. ALLERGIES: Patient is allergic to ATORVASTATIN. FAMILY HISTORY: No significant family history of end-stage renal disease requiring hemodialysis. SOCIAL HISTORY: Patient lives at home. She denies any illicit drug abuse or alcohol abuse. She denies smoking. REVIEW OF SYSTEMS: CONSTITUTIONAL: Patient reports feeling weak and tired. EYES: She denies any blurry vision, double vision. ENT: She denies any dysphagia or odynophagia or ear discharge. CARDIOVASCULAR: She reports history of congestive heart failure but she denies any chest pain. RESPIRATORY: She reports mild shortness of breath. GASTROINTESTINAL: She denies any nausea, vomiting. GENITOURINARY: She reports oliguria but she denies any hematuria or dysuria. MUSCULOSKELETAL: She reports weakness of bilateral lower extremities and pain in the bilateral lower extremities that starts from back and radiates to the lower extremities. CENTRAL NERVOUS SYSTEM: She reports history of CVA with slurred speech. PSYCH: She denies any depression or anxiety. HEMATOLOGICAL/ONCOLOGIC: She denies any easy bleeding or bruising. She denies any melena but she does report anemia after surgery and requiring two units of PRBC transfusion at [facility] a few days ago. ENDOCRINE: She reports history of diabetes and secondary hyperparathyroidism. All other review of systems is negative. PHYSICAL EXAMINATION: GENERAL: Patient is awake, alert, oriented times three laying in bed getting hemodialysis done. VITAL SIGNS: Temperature 98.1 degrees Fahrenheit, blood pressure 136/79, pulse 116, respiratory rate 17 saturating 93% in room air. HEAD/NECK EXAM: Extraocular muscles intact. Facial puffiness, especially periorbital puffiness was noted. Mucous membranes are moist. Neck is supple. There is no jugular venous distention (JVD). CARDIOVASCULAR: S1, S2, tachycardia. No edema of the bilateral lower extremities. RESPIRATORY: Decreased breath sounds at the bases, otherwise, no active rales or rhonchi. ABDOMEN: Soft, positive bowel sounds. Mild tenderness in the abdomen, especially in the back on deep palpation. No organomegaly was noted. GENITOURINARY: Bladder was nonpalpable. No hernia noted. MUSCULOSKELETAL: No clubbing or stenosis. Pulses are 2+. She is able to move the lower extremities but she complains of pain in the lower back. STRAWHAT SIZER: Patient has dysarthria, otherwise she moves bilateral upper extremities. PSYCH: Normal mood and affect. LAB REVIEW: CBC showed WBC 5.9, hemoglobin 7.2, platelets 207, INR 1, BMP showed sodium 137, potassium 4.7, chloride 101, bicarbonate 25, BUN 74, creatinine 12.4, glucose 163. Iron 29, TIBC 211, transferrin saturation 13.7%, ferritin 1328, albumin 2.9. CURRENT INPATIENT MEDICATIONS: Patient's medication are all reviewed by me. She is taking [place] as needed every 4 hours. She was on amlodipine, which I have stopped now. Vitamin C 500 mg by mouth daily, aspirin 81 mg by mouth daily, which is on hold now. Plavix 75 mg by mouth daily, which has been held. Coreg 6.25 mg by mouth twice a day. CoQ10 100 mg daily. Flexeril 5 mg by mouth daily, as needed for muscle spasm. I started her on Aranesp 200 mcg IV with hemodialysis. She is on Colace 100 mg by mouth daily as needed for constipation. She is also on hydralazine 50 mg by mouth on nondialysis days. However, I have changed her regimen to 20 mg by mouth every 8 hours. She is on insulin 13 units insulin, Levemir 13 units subcu daily and insulin sliding scale. Morphine as needed, multivitamin one tablet daily, Protonix I have started her on 40 mg IV daily. Pravastatin 80 mg daily, ramelteon 8 mg by mouth nightly as needed sleep. She was given a dose of Kayexalate last night because of hyperkalemia. ASSESSMENT: 73-year-old female with history of end-stage renal disease on hemodialysis every Monday, Monday, Monday, chronic mild systolic and diastolic congestive heart failure admitted this time with weakness and inability to walk, hypokalemia, missed hemodialysis and worsening anemia. PLAN: 1. End-stage renal disease on hemodialysis: Patient missed her hemodialysis yesterday. She is being dialyzed today. I will try to remove at least 2.5 liters of fluid and she is being dialyzed with a 2K dialysis. 2. Hyperkalemia: It is secondary to missed dialysis. He will be given a dose of Kayexalate 30 gram by mouth overnight. Potassium level is nicely improved to 4.7. She is being dialyzed with a 2K bath. Potassium level is further expected to go. 3. Chronic combined systolic and diastolic congestive heart failure: Volume status is decompensated because of missed hemodialysis. Her left ventricular ejection fraction is about 35% on previous echo. She is not a candidate for amlodipine. Continue current dose of carvedilol. I have increased her hydralazine to 20 mg every 8 hours. If needed, she will started on a low dose of isosorbide. 4. Worsening anemia and end-stage renal disease: Patient is going to get 2 units of PRBC transfusion. I am going to hold her aspirin and Plavix. She has been started on Protonix 40 mg IV daily. Her iron level transferrin saturation is low. I am also giving her Venofer with hemodialysis. Patient will get a dose of Aranesp 200 mg IV with hemodialysis. 5. Diabetes mellitus type 2, insulin dependent: Continue current dose of insulin Levemir along with sliding scale. Glucose levels are within acceptable range. 6. Recent cerebrovascular accident (CVA) with dysarthria: Aspirin and Plavix is on hold because of worsening anemia. Continue pravastatin 18 mg by mouth daily. 7. Low back pain, inability to walk, weakness and recent surgery for spinal stenosis. Patient is going to get physical therapy. Continue current dose of pain medications. She is also on Flexeril for muscle spasms. The rest of the management is as per primary team. Thank you for involving me in the care of this patient. I shall be happy to follow the patient along with you tomorrow morning. JESSICAD
[2018-02-22 14:00] VITALS: BP 165/75
[2018-02-22] MEDS: PANTOPRAZOLE 40MG INJ (PROTONIX) (C9113) IV SCH (14:16)
[2018-02-22] MEDS: **hydrALAZINE** 10 MG TAB PO SCH ×2 (14:17→21:28)
[2018-02-22] MEDS: HumaLOG INSULIN (NovoLOG) PER UNIT SC SCH ×3 (14:18→21:00)
[2018-02-22] MEDS: PRAVASTATIN 20 MG TAB PO SCH (21:28)
[2018-02-22 22:00] VITALS: BP 162/72
[2018-02-23] MEDS: NORCO, ANEXSIA 5/325MG TABLET (HYDROcodone/ACETAMINOPHEN) PO PRN ×3 (01:53→22:21)
[2018-02-23] MEDS: **hydrALAZINE** 10 MG TAB PO SCH ×4 (05:52→22:20)
[2018-02-23 06:00] VITALS: BP 168/82
[2018-02-23 08:04] LABS: HEMATOCRIT 33.9 % (36.0-47.0); MEAN CORPUSCULAR HEMOGLOBIN 27.9 pg (27.0-33.0); MEAN CORPUSCULAR HGB CONC 31.6 g/dl (32.0-36.5); MEAN CORPUSCULAR VOLUME 88.5 fl (80.0-96.0); PLATELET COUNT, AUTOMATED 220 10^3/uL (150-450); RED BLOOD COUNT 3.83 10^6/uL (4.00-5.40); WHITE BLOOD COUNT 6.4 10^3/uL (4.0-10.0)
[2018-02-23 08:07] LABS: HEMOGLOBIN 10.7 g/dl (12.0-15.5)
[2018-02-23 08:29] LABS: CALCIUM LEVEL 8.4 MG/DL (8.8-10.2); CREATININE FOR GFR 8.12 MG/DL (0.55-1.30); GLOMERULAR FILTRATION RATE 6.3 (>39); POTASSIUM SERUM 4.1 MEQ/L (3.5-5.1)
[2018-02-23] MEDS: HumaLOG INSULIN (NovoLOG) PER UNIT SC SCH ×4 (08:29→21:00)
[2018-02-23] MEDS: MULTIVITAMINS/MINERALS THERAP 1 TAB PO SCH (08:31)
[2018-02-23] MEDS: LEVEMIR (INSULIN DETEMIR) 1 UNITS/0.01ML SC SCH (08:31)
[2018-02-23] MEDS: CARVedilol 6.25 MG TAB PO SCH ×2 (08:31→21:14)
[2018-02-23] MEDS: CO-ENZYME Q10 50 MG CAP PO SCH (08:37)
[2018-02-23] MEDS: LACTIC ACID 12% LOTION 225 GM BTL TOP SCH (08:46)
[2018-02-23] MEDS: PANTOPRAZOLE 40MG INJ (PROTONIX) (C9113) IV SCH (09:00)
[2018-02-23] MEDS: ASCORBIC ACID 500 MG TAB PO SCH (09:00)
--- NOTE | 2018-02-23 10:40 | IPNPDOC ---
Text Note Date of Service The patient was seen on 02/23/18. NOTE CC: Difficulty walking, back pain, missed dialysis on Monday Subjective:Patient is status post L3-4 lumbar laminectomy for chronic back pain and spinal stenosis performed at [place] by Dr. Giovani Forbes. Patient has a past medical history of end-stage renal disease, with chronic dialysis on Monday, Monday and Monday. Patient missed dialysis on Monday. She was admitted for dialysis, nephrology consulted. Patient was examined at bedside. She complained of leg pain, and acute back pain. She denied any chest pain, denied any nausea, denies any vomiting. Patient is status post dialysis from yesterday,. PE GENERAL APPEARANCE:Laying in bed, Complaining of bilateral leg pain SKIN: Warm, well perfused. Healing surgical scar on her lumbar, LUNGS: Clear to auscultation bilaterally. HEART: Normal S1, S2. No murmurs, no rubs, no gallops ABDOMEN: Soft. No masses. Bowel sounds are present. EXTREMITIES: Moves all extremities equally. No gross deformities. 3/5 strength in bilateral lower extremity PULSES: 2+ upper and lower extremity . NEURO: Sensation intact, Assessment A 73-year-old -Malian female with past medical history of hypertension, diabetes, chronic systolic and diastolic heart failure, end-stage renal disease on hemodialysis Monday, Monday, Monday, CAD, status post bypass, hypertension, hyperlipidemia, and diabetic neuropathy, presenting with difficulty ambulation following laminectomy earlier this week at [facility]. P atient also missed dialysis on Monday. End-stage renal disease --Nephrology consulted --s/p dialysis Chronic mild systolic and diastolic congestive heart failure --Left ventricular ejection fraction of 35 on prior echo. --Hold amlodipine --Continue carvedilol --Stared on isosorbide 30 mg BID Hyperkalemia -- Resolved with Dialysis Anemia, secondary to renal disease, perhaps secondary to recent surgery. --status post 2 units of blood effusion. Currently stable hemoglobin hemo-crit -- Will continue to monitor Difficulty ambulation, 2/2 to back pain, 2/2 to recent surgery --Physical therapy on board --Continue pain management Diabetes --13 units of Levemir daily --Carbohydrate consistent diet --Sliding scale insulin Hypertension --Hydralazine 20 mg every 8 hours Hyperlipidemia --Continue home meds CAD --Continue home meds VS,Fishbone, I+O VS, Fishbone, I+O Laboratory Tests 02/23/18 07:48 Red Blood Count 3.83 L, Mean Corpuscular Volume 88.5, Mean Corpuscular Hemoglobin 27.9, Mean Corpuscular Hemoglobin Concent 31.6 L, Red Cell Distribution Width 16.0 H, Calcium Level 8.4 L Vital Signs Date Time Temp Pulse Resp B/P (MAP) Pulse Ox O2 Delivery O2 Flow Rate FiO2 02/23/18 08:31 91 168/82 02/23/18 06:00 97.6 17 100 Room Air I&O- Last 24 Hours up to 6 AM 02/23/18 05:59 Intake Total 840 ml Output Total 2500 ml Balance -1660 ml GME ATTESTATION GME ATTESTATION My faculty preceptor for this patient encounter was physically present during the encounter and was fully available. All aspects of the patient interview, examination, medical decision making process, and medical care plan development were reviewed and approved by the faculty preceptor. The faculty preceptor is aware and concurs with the plan as stated in the body of this note and will attest to such by his/her cosignature. SHELL RAYMOND DO Feb 23, 2018 10:39
[2018-02-23] MEDS: PANTOPRAZOLE 40MG TAB (PROTONIX) PO SCH (11:38)
[2018-02-23] MEDS: ISOSORBIDE MONONITRATE 10MG TABLET PO SCH ×2 (11:39→17:57)
[2018-02-23] MEDS ORDERED: HEPARIN 1,000 UNITS/ML 10ML VIAL (FOR RADIOLOGY& DIALYSIS ONLY) IV ONE (13:30)
[2018-02-23 16:20] VITALS: BP 174/80
[2018-02-23] MEDS: PRAVASTATIN 20 MG TAB PO SCH (21:14)
[2018-02-23 22:00] VITALS: BP 144/78
[2018-02-23] MEDS: RAMELTEON 8 MG TAB (ROZEREM) PO PRN (22:20)
[2018-02-24 06:00] VITALS: BP 146/74
[2018-02-24] MEDS: **hydrALAZINE** 10 MG TAB PO SCH ×3 (06:04→20:59)
[2018-02-24] MEDS: NORCO, ANEXSIA 5/325MG TABLET (HYDROcodone/ACETAMINOPHEN) PO PRN ×3 (06:05→20:57)
[2018-02-24 06:12] LABS: HEMATOCRIT 34.5 % (36.0-47.0); HEMOGLOBIN 10.8 g/dl (12.0-15.5); MEAN CORPUSCULAR HEMOGLOBIN 28.3 pg (27.0-33.0); MEAN CORPUSCULAR HGB CONC 31.3 g/dl (32.0-36.5); MEAN CORPUSCULAR VOLUME 90.3 fl (80.0-96.0); PLATELET COUNT, AUTOMATED 238 10^3/uL (150-450); RED BLOOD COUNT 3.82 10^6/uL (4.00-5.40); WHITE BLOOD COUNT 6.6 10^3/uL (4.0-10.0)
[2018-02-24 06:34] LABS: CREATININE FOR GFR 6.6 MG/DL (0.55-1.30); POTASSIUM SERUM 4.3 MEQ/L (3.5-5.1)
[2018-02-24] MEDS ORDERED: IRON SUCROSE 100MG 5ML VIAL (J1756 PER 1MG) IV SCH (08:00)
[2018-02-24] MEDS: LEVEMIR (INSULIN DETEMIR) 1 UNITS/0.01ML SC SCH (08:27)
[2018-02-24] MEDS: HumaLOG INSULIN (NovoLOG) PER UNIT SC SCH ×4 (08:27→20:30)
[2018-02-24] MEDS: CARVedilol 6.25 MG TAB PO SCH ×2 (08:28→20:56)
[2018-02-24] MEDS: ASCORBIC ACID 500 MG TAB PO SCH (08:28)
[2018-02-24] MEDS: MULTIVITAMINS/MINERALS THERAP 1 TAB PO SCH (08:28)
[2018-02-24] MEDS: PANTOPRAZOLE 40MG TAB (PROTONIX) PO SCH (08:28)
[2018-02-24] MEDS: CO-ENZYME Q10 50 MG CAP PO SCH (08:28)
[2018-02-24] MEDS: ISOSORBIDE MONONITRATE 10MG TABLET PO SCH ×2 (08:29→18:35)
[2018-02-24] MEDS: LACTIC ACID 12% LOTION 225 GM BTL TOP SCH (09:00)
--- NOTE | 2018-02-24 09:14 | IPNPDOC ---
Text Note Date of Service The patient was seen on 02/24/18. NOTE CC: Difficulty walking, back pain, missed dialysis on Monday Subjective:Patient is status post L3-4 lumbar laminectomy for chronic back pain and spinal stenosis performed at [place] by Dr. Giovani Forbes. Patient has a past medical history of end-stage renal disease, with chronic dialysis on Monday, Monday and Monday. Patient missed dialysis on Monday. She was admitted for dialysis, nephrology consulted. Patient was examined at bedside. She complained of on going leg pain. She would like to be out of bed and be able to ambulate PE GENERAL APPEARANCE:Laying in bed, no acute distress SKIN: Warm, Healing surgical scar on her lumbar, no fever LUNGS: Clear to auscultation bilaterally. HEART: Normal S1, S2. No murmurs, no rubs, no gallops ABDOMEN: Soft. No masses. Bowel sounds are present. EXTREMITIES: Moves all extremities equally. No gross deformities. Able to extend bilateral knees, able to lift leg with minimal resistance PULSES: 2+ upper and lower extremity . Assessment A 73-year-old -Greenland[place] female with past medical history of hypertension, diabetes, chronic systolic and diastolic heart failure, end-stage renal disease on hemodialysis Monday, Monday, Monday, CAD, status post bypass, hypertension, hyperlipidemia, and diabetic neuropathy, presenting with difficulty ambulation following laminectomy earlier this week at [facility]. Patient also missed dialysis on Monday. End-stage renal disease --Nephrology consulted --s/p dialysis, resume regular dialysis Chronic mild systolic and diastolic congestive heart failure --Left ventricular ejection fraction of 35 on prior echo. --Hold amlodipine --Continue carvedilol --Stared on isosorbide 30 mg BID Hyperkalemia -- Resolved with Dialysis Anemia, secondary to renal disease, perhaps secondary to recent surgery. --status post 2 units of blood effusion. Currently stable hemoglobin and hemo- crit Difficulty ambulation, 2/2 to back pain, 2/2 to recent surgery --Physical therapy on board, they will evaluate the patient on monday the 02/26/18 --Continue pain management --Out of bed with assistance order has been placed. Diabetes --13 units of Levemir daily --Carbohydrate consistent diet --Sliding scale insulin Hypertension --Hydralazine 20 mg every 8 hours Hyperlipidemia --Continue home meds CAD --Continue home meds VS,Fishbone, I+O VS, Fishbone, I+O Laboratory Tests 02/24/18 05:52 Red Blood Count 3.82 L, Mean Corpuscular Volume 90.3, Mean Corpuscular Hemoglobin 28.3, Mean Corpuscular Hemoglobin Concent 31.3 L, Red Cell Distribution Width 16.4 H, Calcium Level 9.0 Vital Signs Date Time Temp Pulse Resp B/P (MAP) Pulse Ox O2 Delivery O2 Flow Rate FiO2 02/24/18 08:29 156/74 02/24/18 08:28 88 02/24/18 06:35 18 Room Air 02/24/18 06:00 97.8 99 I&O- Last 24 Hours up to 6 AM 02/24/18 06:00 Intake Total 880 ml Output Total 2000 ml Balance -1120 ml GME ATTESTATION GME ATTESTATION My faculty preceptor for this patient encounter was physically present during the encounter and was fully available. All aspects of the patient interview, examination, medical decision making process, and medical care plan development were reviewed and approved by the faculty preceptor. The faculty preceptor is aware and concurs with the plan as stated in the body of this note and will attest to such by his/her cosignature. SHELL RAYMOND DO Feb 24, 2018 09:14
[2018-02-24 13:21] VITALS: BP 158/71
--- NOTE | 2018-02-24 13:21 | IPN ---
DATE OF SERVICE: 02/23/2018 SUBJECTIVE: The patient was seen and examined at the bedside today morning. She was dialyzed yesterday. She tolerated the hemodialysis procedure well. She is still complaining of back pain and leg weakness. She does report that she did walk with the help of a walker with physical therapy, but she is still unable to go home because of severe pain in the back. Today is patient's regular day of dialysis and she agrees to have another session of hemodialysis today. OBJECTIVE: Vital signs: Temperature is 97.6 degrees Fahrenheit. Blood pressure is 168/82, pulse is 91, respiratory rate of 17, saturating 100% on room air. Intake and output: Urine output is not recorded. Ultrafiltration with hemodialysis was 2.5 liters yesterday. Weight in the bed scale is 73 kg. PHYSICAL EXAMINATION: GENERAL: The patient is awake, alert, oriented times three. Laying in bed. No apparent distress. HEAD AND NECK EXAM: Extraocular muscles intact. Pupils are equal, round and reactive to light. Periorbital puffiness was noted. Mucous membranes are moist. Neck is supple. There is no jugular venous distention (JVD). CARDIOVASCULAR: S1, S2. Regular rate. No edema of the bilateral lower extremities. RESPIRATORY: Chest is clear to auscultation bilaterally. Bilateral equal air entry. No rales or rhonchi. ABDOMEN: Soft. Positive bowel sounds. Nontender. No organomegaly. MUSCULOSKELETAL: No clubbing or cyanosis. Pulses are 2+. She has lower back pain. 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 Moves bilateral upper extremities. LAB REVIEW: CBC showed a WBC 6.4, hemoglobin 10.7, platelets at 220. BMP showed a sodium of 137, potassium 4.1, chloride 100, bicarbonate 28, BUN 39, creatinine is 8.1, calcium is 8.4. MICROBIOLOGY: Blood cultures are negative so far. CURRENT INPATIENT MEDICATIONS: The patient's medications were all reviewed by me. There is no change in the medications today as compared with yesterday. Her aspirin and Plavix is also on hold. ASSESSMENT AND PLAN: 1. End-stage renal disease on hemodialysis. Patient's regular dialysis days are Monday, Monday, and Monday. She was dialyzed yesterday because she missed her dialysis. She agreed to go get another session of dialysis to put her back on her Monday, Monday, Monday schedule. I would try to remove 2 more liters of fluid as tolerated by her blood pressure. 2. Chronic combined systolic and diastolic congestive heart failure. Volume status is still decompensated. She has a history of low ejection fraction of around 35%. I will remove more fluid today. Blood pressure was still high. She continues to be on Coreg and hydralazine. I have added isosorbide mononitrate 30 mg by mouth twice a day. 3. Anemia secondary to end stage renal disease. Patient got two units of packed red blood cells (PRBC) transfusion yesterday. She recently had surgery done as well. Aspirin and Plavix is on hold. Hemoglobin is optimal at this point. She is also going to get Venofer times five doses during hemodialysis. 4. Recent CVA with dysarthria. Aspirin and Plavix is on hold because of severe anemia when she came in. I would resume her antiplatelets tomorrow. 5. Hypertension with end-stage renal disease and hypertensive heart disease. Blood pressures are still elevated as mentioned above. She continues to be on Coreg and hydralazine. She was also started on isosorbide. If blood pressure remains elevated then hydralazine dose will be increased tomorrow morning.
[2018-02-24 14:00] VITALS: BP 165/74
[2018-02-24] MEDS: PRAVASTATIN 20 MG TAB PO SCH (20:55)
[2018-02-24] MEDS: RAMELTEON 8 MG TAB (ROZEREM) PO PRN (20:55)
[2018-02-24 22:00] VITALS: BP 161/72
[2018-02-25] MEDS: **hydrALAZINE HCL** 25 MG TAB PO SCH ×3 (05:44→22:06)
[2018-02-25 05:52] LABS: HEMATOCRIT 33.5 % (36.0-47.0); HEMOGLOBIN 10.4 g/dl (12.0-15.5); MEAN CORPUSCULAR HEMOGLOBIN 27.7 pg (27.0-33.0); MEAN CORPUSCULAR VOLUME 89.3 fl (80.0-96.0); PLATELET COUNT, AUTOMATED 249 10^3/uL (150-450); RED BLOOD COUNT 3.75 10^6/uL (4.00-5.40); WHITE BLOOD COUNT 8.3 10^3/uL (4.0-10.0)
[2018-02-25 06:00] VITALS: BP 173/84
[2018-02-25 06:28] LABS: CALCIUM LEVEL 8.7 MG/DL (8.8-10.2); CREATININE FOR GFR 9.09 MG/DL (0.55-1.30); GLOMERULAR FILTRATION RATE 5.5 (>39); POTASSIUM SERUM 4.4 MEQ/L (3.5-5.1)
[2018-02-25] MEDS: PANTOPRAZOLE 40MG TAB (PROTONIX) PO SCH (06:47)
[2018-02-25] MEDS: ASCORBIC ACID 500 MG TAB PO SCH (06:47)
[2018-02-25] MEDS: MULTIVITAMINS/MINERALS THERAP 1 TAB PO SCH (06:47)
[2018-02-25] MEDS: CO-ENZYME Q10 50 MG CAP PO SCH (06:48)
[2018-02-25] MEDS: ISOSORBIDE MONONITRATE 10MG TABLET PO SCH ×2 (06:48→16:18)
[2018-02-25] MEDS: CARVedilol 6.25 MG TAB PO SCH ×2 (06:49→20:05)
[2018-02-25] MEDS: NORCO, ANEXSIA 5/325MG TABLET (HYDROcodone/ACETAMINOPHEN) PO PRN ×3 (06:50→20:06)
[2018-02-25] MEDS: HumaLOG INSULIN (NovoLOG) PER UNIT SC SCH ×4 (07:30→20:05)
[2018-02-25] MEDS: LACTIC ACID 12% LOTION 225 GM BTL TOP SCH (08:02)
[2018-02-25] MEDS: LEVEMIR (INSULIN DETEMIR) 1 UNITS/0.01ML SC SCH (08:06)
--- NOTE | 2018-02-25 10:29 | IPNPDOC ---
Subjective Date Seen The patient was seen on 02/25/18. Subjective Chief Complaint/HPI Patient seen and examined at the bedside. Denies any acute complaints at this time. She reports that she is eager to work with physical therapy and get stronger. Objective Physical Examination General Exam: Positive: Alert, Cooperative, No Acute Distress ENT Exam: Positive: Atraumatic, Mucous membr. moist/pink Chest Exam: Positive: Clear to auscultation, Normal air movement Heart Exam: Positive: Rate Normal, Normal S1, Normal S2 Abdomen Exam: Positive: Soft; Negative: Tenderness Extremity Exam: Negative: Tenderness, Swelling Neuro Exam: Positive: Strength at 5/5 X4 ext, Normal Tone, Sensation Intact Psych Exam: Positive: Oriented x 3 Assessment /Plan Plan/VTE VTE Prophylaxis Ordered?: Yes Plan Difficulty ambulation, Debility 2/2 Recent Laminectomy Physical therapy on board Continue pain management as ordered PFS on board for likely need of Home w/ Services vs Rehab on discharge End-stage renal disease on HD Dialysis as per Nephro Chronic systolic and diastolic congestive heart failure Left ventricular ejection fraction of 35 on prior echo. Cont meds as ordered Volume optimization as per Nephro/HD Anemia, secondary to renal disease s/p 2 units of blood transfusion Hgb stable following transfusion Diabetes Cont Regimen as ordered Hypertension Cont regimen as ordered Hyperlipidemia Cont statin DVT Prophylaxis SCDs/TEDs Dispo--pending PT clearance vs possible placement for Rehab VS, I&O, 24H, Fishbone Vital Signs/I&O Vital Signs Date Time Temp Pulse Resp B/P (MAP) Pulse Ox O2 Delivery O2 Flow Rate FiO2 02/25/18 07:40 18 Room Air 02/25/18 06:49 84 173/78 02/25/18 06:00 98.8 100 I&O- Last 24 Hours up to 6 AM 02/25/18 06:00 Intake Total 1588 ml Output Total 0 ml Balance 1588 ml Laboratory Data 24H LABS Laboratory Tests 2 02/24/18 11:23: Bedside Glucose (Misc Panel) 154H 02/24/18 16:36: Bedside Glucose (Misc Panel) 83 02/24/18 19:40: Bedside Glucose (Misc Panel) 91 02/25/18 05:39: Nucleated Red Blood Cells % (auto) 0.0, Anion Gap 8, Glomerular Filtration Rate 5.5L, Blood Urea Nitrogen 39H, Creatinine 9.09*H, Sodium Level 134L, Potassium Level 4.4, Chloride Level 98, Carbon Dioxide Level 28, Calcium Level 8.7L CBC/BMP Laboratory Tests 02/25/18 05:39 Red Blood Count 3.75 L, Mean Corpuscular Volume 89.3, Mean Corpuscular Hemoglobin 27.7, Mean Corpuscular Hemoglobin Concent 31.0 L, Red Cell Distribution Width 16.5 H, Calcium Level 8.7 L Microbiology Microbiology 02/21/18 Blood Culture - Preliminary, Resulted No Growth after 72 hours. All specime... 02/21/18 Blood Culture - Preliminary, Resulted No Growth after 72 hours. All specime... SHERYL COOPER MD Feb 25, 2018 10:29
--- NOTE | 2018-02-25 12:11 | IPN ---
DATE: 02/24/2018 SUBJECTIVE: The patient was seen and examined at the bedside today morning. She is afebrile. Hemodynamically stable. She was dialyzed yesterday and 2 liters of fluid was removed. She denies any active complaints apart from weakness and inability to walk and back pain and lower extremity pain. OBJECTIVE: Vital signs: Temperature is 97.8 degrees Fahrenheit. Blood pressure is 165/74, pulse is 80, respiratory rate of 20, saturating 95% on room air. Intake and output: Urine output is not recorded. Ultrafiltration with hemodialysis was 2 liters. Weight in the bed scale was 73 kg yesterday. PHYSICAL EXAMINATION: GENERAL: The patient is awake, alert, oriented times three. Laying in bed. No apparent distress. HEAD AND NECK EXAM: Periorbital puffiness is improving. Mucous membranes are moist. Neck is supple. There is no jugular venous distention (JVD). CARDIOVASCULAR: S1, S2. Regular rate. No edema of the bilateral lower extremities. RESPIRATORY: Chest is clear to auscultation bilaterally. Bilateral equal air entry. No rales or rhonchi. ABDOMEN: Soft. Positive bowel sounds. Nontender. No organomegaly. MUSCULOSKELETAL: No clubbing or cyanosis. Pulses are 2+. Back pain and lower extremity pain was noted on movement. 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 LAB REVIEW: CBC showed a WBC 6.6, hemoglobin 10.8, platelets at 238. BMP showed a sodium of 138, potassium 4.3, chloride 99, bicarbonate 30, BUN 26, creatinine is 6.6, calcium is 9. MICROBIOLOGY: Blood cultures are negative so far. CURRENT INPATIENT MEDICATIONS: The patient's medications were all reviewed by me. There is no change in the medications today as compared with yesterday. ASSESSMENT AND PLAN: 1. End-stage renal disease on hemodialysis. Patient's regular dialysis days are Monday, Monday, and Monday. She was dialyzed yesterday. She will get her next hemodialysis session tomorrow because of the holiday schedule. 2. Chronic combined systolic and diastolic congestive heart failure. Volume status is better optimized now with back to back hemodialysis for 2 days. She will get more ultrafiltration done tomorrow. Continue current dose of Coreg, hydralazine and isosorbide. 3. Anemia secondary to end stage renal disease. Hemoglobin is optimized. Aspirin and Plavix are on hold. She got 2 units of packed red blood cell transfusion. The patient also got Aranesp and Venofer with hemodialysis. 4. Recent CVA with dysarthria. I am going to restart the aspirin tomorrow morning. Plavix will be restarted if her hemoglobin stays stable. 5. Hypertension with end-stage renal disease and hypertensive heart disease. Blood pressures are still elevated. Continue current dose of Coreg and Isosorbide. I am increasing the hydralazine dose to 25 mg every 8 hours.
[2018-02-25] MEDS ORDERED: HEPARIN 1,000 UNITS/ML 10ML VIAL (FOR RADIOLOGY& DIALYSIS ONLY) IV ONE (12:30)
[2018-02-25 13:03] VITALS: BP 158/73
[2018-02-25 14:00] VITALS: BP 143/67
[2018-02-25] MEDS: PRAVASTATIN 20 MG TAB PO SCH (20:05)
[2018-02-25 22:00] VITALS: BP 147/70
[2018-02-25] MEDS: RAMELTEON 8 MG TAB (ROZEREM) PO PRN (22:06)
[2018-02-26 05:58] LABS: HEMATOCRIT 34.7 % (36.0-47.0); HEMOGLOBIN 10.6 g/dl (12.0-15.5); MEAN CORPUSCULAR HGB CONC 30.5 g/dl (32.0-36.5); MEAN CORPUSCULAR VOLUME 91.8 fl (80.0-96.0); PLATELET COUNT, AUTOMATED 250 10^3/uL (150-450); RED BLOOD COUNT 3.78 10^6/uL (4.00-5.40); WHITE BLOOD COUNT 6.8 10^3/uL (4.0-10.0)
[2018-02-26 06:00] VITALS: BP 142/78
[2018-02-26] MEDS: **hydrALAZINE HCL** 25 MG TAB PO SCH ×2 (06:00→14:00)
[2018-02-26 06:24] LABS: CALCIUM LEVEL 8.9 MG/DL (8.8-10.2); CREATININE FOR GFR 7.07 MG/DL (0.55-1.30); GLOMERULAR FILTRATION RATE 7.4 (>39); POTASSIUM SERUM 4.1 MEQ/L (3.5-5.1)
[2018-02-26] MEDS: HumaLOG INSULIN (NovoLOG) PER UNIT SC SCH ×2 (07:30→12:33)
[2018-02-26] MEDS: MULTIVITAMINS/MINERALS THERAP 1 TAB PO SCH (08:39)
[2018-02-26] MEDS: PANTOPRAZOLE 40MG TAB (PROTONIX) PO SCH (08:39)
[2018-02-26] MEDS: ASCORBIC ACID 500 MG TAB PO SCH (08:40)
[2018-02-26] MEDS: ASPIRIN 81 MG ENTERIC TAB PO SCH (08:40)
[2018-02-26] MEDS: CARVedilol 6.25 MG TAB PO SCH (08:41)
[2018-02-26] MEDS: CO-ENZYME Q10 50 MG CAP PO SCH (08:41)
[2018-02-26] MEDS: CLOPIDOGREL 75 MG TAB PO SCH (08:42)
[2018-02-26] MEDS: LEVEMIR (INSULIN DETEMIR) 1 UNITS/0.01ML SC SCH (08:42)
[2018-02-26] MEDS: LACTIC ACID 12% LOTION 225 GM BTL TOP SCH (08:43)
[2018-02-26] MEDS: ISOSORBIDE MONONITRATE 10MG TABLET PO SCH (09:01)
[2018-02-26] MEDS: NORCO, ANEXSIA 5/325MG TABLET (HYDROcodone/ACETAMINOPHEN) PO PRN ×2 (09:11→14:01)
[2018-02-26 14:00] VITALS: BP_SYST 101; BP_SYST 130; BP_DIAS 68; BP_DIAS 80
--- NOTE | 2018-02-26 14:02 | DS.PDOC ---
Discharge Summary General Date of Admission Feb 22, 2018 at 13:28 Date of Discharge 02/26/18 Specialist/Consultants Involve Dr. Kiran, and Dr. Daniel of Nephrology Discharge Summary PROCEDURES PERFORMED DURING STAY: None. ADMITTING/DISCHARGE DIAGNOSES: Difficulty ambulation, Debility 2/2 Recent Lumbar Laminectomy End Stage renal disease on hemodialysis Chronic systolic and diastolic congestive heart failure Anemia of chronic disease Diabetes Hypertension Dyslipidemia COMPLICATIONS/CHIEF COMPLAINT: Debility,Esrd Needing Dialysis. HISTORY OF PRESENT ILLNESS: . 73-year-old female with past medical history of end-stage renal disease on hemodialysis, systolic and diastolic congestive heart failure, hypertension, diabetes, CAD, dyslipidemia, CVA, spinal stenosis with recent lumbar laminectomy presented to the ER with a chief complaint of increased debility since her bridgett mbar surgery. The patient stated that she missed her dialysis session because she had difficulty getting around. She denied any focal or acute complaints of numbness/tingling in the genital area, fecal/urinary incontinence, or any other signs of cauda equina. The patient denied any acute complaints of fevers, chills, chest pain, palpitations, abdominal pain, or any nausea/vomiting/diarrhea. During hospitalization, nephrology was consulted and dialyzed the patient. As for the patient's functional status, she did relatively well with physical therapy and did not display any acute neurological issues. At this time, physical therapy has recommended that the patient would benefit from acute reha bilitation. The patient will be discharged to acute rehabilitation unit for further functional optimization. I've advised the patient follow-up with primary care physician within 7 days, and with nephrology as indicated for dialysis. Lastly, the patient has been advised to return to the ER for any acute emergencies. DISCHARGE MEDICATIONS: Please see below. ALLERGIES: Please see below. PHYSICAL EXAMINATION ON DISCHARGE: VITAL SIGNS: Please see below. General Exam: Positive: Alert, Cooperative, No Acute Distress ENT Exam: Positive: Atraumatic, Mucous membr. moist/pink Chest Exam: Positive: Clear to auscultation, Normal air movement Heart Exam: Positive: Rate Normal, Normal S1, Normal S2 Abdomen Exam: Positive: Soft; Negative: Tenderness Extremity Exam: Negative: Tenderness, Swelling Neuro Exam: Positive: Strength at 5/5 X4 ext, Normal Tone, Sensation Intact Psych Exam: Positive: Oriented x 3 LABORATORY DATA: Please see below. PROGNOSIS: Fair ACTIVITY: As tolerated. DIET: Renal diet DISCHARGE PLAN: DISPOSITION: . ARU DISCHARGE INSTRUCTIONS: The patient will be discharged to acute rehabilitation unit for further functional optimization. I've advised the patient follow-up with primary care physician within 7 days, and with nephrology as indicated for dialysis. Lastly, the patient has been advised to return to the ER for any acute emergencies. DISCHARGE CONDITION: Stable. TIME SPENT ON DISCHARGE: Greater than 30 minutes. Vital Signs/I&Os Vital Signs Date Time Temp Pulse Resp B/P (MAP) Pulse Ox O2 Delivery O2 Flow Rate FiO2 02/26/18 09:45 18 Room Air 02/26/18 09:01 142/72 02/26/18 08:41 77 02/26/18 06:00 98.2 100 I&O- Last 24 Hours up to 6 AM 02/26/18 06:00 Intake Total 900 ml Output Total 2000 ml Balance -1100 ml Laboratory Data Labs 24H Laboratory Tests 2 02/25/18 18:21: Bedside Glucose (Misc Panel) 133H 02/25/18 20:01: Bedside Glucose (Misc Panel) 153H 02/26/18 05:39: Nucleated Red Blood Cells % (auto) 0.0, Anion Gap 8, Glomerular Filtration Rate 7.4L, Blood Urea Nitrogen 24H, Creatinine 7.07H, Sodium Level 135L, Potassium Level 4.1, Chloride Level 98, Carbon Dioxide Level 29, Calcium Level 8.9 02/26/18 11:49: Bedside Glucose (Misc Panel) 146H CBC/BMP Laboratory Tests 02/26/18 05:39 Red Blood Count 3.78 L, Mean Corpuscular Volume 91.8, Mean Corpuscular Hemoglobin 28.0, Mean Corpuscular Hemoglobin Concent 30.5 L, Red Cell Distribution Width 16.7 H, Calcium Level 8.9 FSBS Laboratory Tests Test 02/25/18 18:21 02/25/18 20:01 02/26/18 11:49 Range/Units Bedside Glucose (Misc Panel) 133 153 146 83-110 MG/DL Microbiology Microbiology 02/21/18 Blood Culture - Preliminary, Resulted No Growth after 72 hours. All specime... 02/21/18 Blood Culture - Preliminary, Resulted No Growth after 72 hours. All specime... Discharge Medications Scheduled Amlodipine Besylate (Amlodipine Besylate) 5 Mg Tab, 5 MG PO DAILY, (Reported) Ammonium Lactate (Ammonium Lactate) 12 % Cre, 1 DOSE TOP DAILY, (Reported) APPLY TO TRUNK AND EXTREMITIES Ascorbic Acid (Vitamin C) 500 Mg Cap, 500 MG PO DAILY, (Reported) Aspirin (Aspirin) 81 Mg Tab, 81 MG PO DAILY, (Reported) Carvedilol (Carvedilol) 6.25 Mg Tab, 6.25 MG PO BID, (Reported) Clopidogrel Bisulfate (Plavix) 75 Mg Tab, 75 MG PO DAILY, (Reported) Coenzyme Q10 (Coenzyme Q10) 100 Mg Cap, 100 MG PO DAILY, (Reported) Hydralazine HCl (Hydralazine HCl) 50 Mg Tab, 50 MG PO 4XWK, (Reported) MONDAY, MONDAY, MONDAY, MONDAY - BID (799, 1999) Insulin Glargine (Lantus) 1 Units/0.01 Ml Susp, 13 UNITS SC DAILY, (Reported) Insulin Human Lispro (Humalog) 100 Unit/Ml Inj, 1 DOSE SC AC, (Reported) PER SLIDING SCALE Lanthanum Carbonate (Lanthanum Carbonate) 500 Mg Chw, 500 MG PO WM, (Reported) Multivitamins *[facility] STOCK[facility]* (Thera M Plus *[facility]OCK[facility]*) 1 Tab Tab, 1 TAB PO DAILY, (Reported) Pravastatin Sodium (Pravastatin Sodium) 80 Mg Tab, 80 MG PO QHS, (Reported) Scheduled PRN (Aspercreme W/Lidocaine) 4 % Cre, 1 DOSE TOP TID PRN for PAIN, (Reported) APPLY TO BACK NEEDED Acetaminophen/Hydrocodone (Hydrocodone/Acetaminophen 5-325 mg) 1 Tab Tab, 1 TAB PO Q4H PRN for PAIN, (Reported) Cyclobenzaprine HCl (Cyclobenzaprine HCl) 5 Mg Tab, 5 MG PO DAILY PRN for MUSCLE SPASMS, (Reported) Docusate Sodium (Colace) 100 Mg Cap, 100 MG PO DAILY PRN for CONSTIPATION, (Reported) Polyethylene Glycol (Miralax) 1 Pow Pow, 17 GM PO DAILY PRN for CONSTIPATION, (Reported) Ramelteon (Rozerem) 8 Mg Tab, 8 MG PO QHS PRN for SLEEP, (Reported) Allergies Coded Allergies: Atorvastatin (Verified Allergy, Unknown, 06/06/17) ITCHING, LEG CRAMPS SHERYL COOPER MD Feb 26, 2018 14:02
--- NOTE | 2018-02-26 14:30 | IPN ---
DATE: 02/25/2018 SUBJECTIVE: The patient was seen and examined at the bedside today in the morning during hemodialysis procedure. She is tolerating the hemodialysis procedure well. She denies any active complaints apart from back pain and inability to walk without assistance. OBJECTIVE: VITAL SIGNS: Temperature is 98.2 degrees Fahrenheit, blood pressure 143/67, pulse is 82, respiratory rate of 18, saturating 96% on room air. INTAKE/OUTPUT: Urine output is not recorded. Weight on the bed scale is 73.2 kg. PHYSICAL EXAMINATION: GENERAL: The patient is awake, alert, oriented times three, laying in bed, in no apparent distress. HEAD AND NECK EXAM: Extraocular muscles intact. Pupils equally round and reactive to light. Mucous membranes are moist. Neck is supple. There is no jugular venous distention (JVD). CARDIOVASCULAR: S1, S2, regular rate. No edema of the bilateral lower extremities. RESPIRATORY: Chest is clear to auscultation bilaterally. Bilateral equal air entry. No rales or rhonchi. ABDOMEN: Abdomen is soft. Positive bowel sounds. Nontender. No organomegaly. MUSCULOSKELETAL: No clubbing or cyanosis. Pulses are 2+. CENTRAL NERVOUS SYSTEM: She has dysarthria from a previous CVA, otherwise moves upper extremities. She can move lower extremities as well but she reports pain in the back because of movements. LAB REVIEW: CBC showed a WBC of 8.3, hemoglobin 10.4, platelets are 249. BMP showed sodium 134, potassium 4.4, chloride 98, bicarbonate 28, BUN 39, creatinine is 9, calcium is 8.7. CURRENT INPATIENT MEDICATIONS: The patient's medications were all reviewed by me. Aspirin and Plavix continue to be on hold. Hydralazine dose was increased to 25 mg every 8 hours. No other change in the medications today as compared with yesterday. ASSESSMENT AND PLAN: 1. End-stage renal disease, on hemodialysis. Patient's regular dialysis days are Monday, Monday, Monday. She is being dialyzed today because of holiday schedule. Ultrafiltration goal will be two liters as tolerated by her blood pressure. 2. Chronic combined systolic and diastolic congestive heart failure. Volume status was decompensated when she arrived; she got back to back two days of dialysis. Ultrafiltration goal, as mentioned above, is two liters. Continue current dose of Coreg, hydralazine and isosorbide. 3. Hypertension with end-stage renal disease and hypertensive heart disease. Her blood pressures are still elevated. In addition to Coreg and isosorbide, I increased her hydralazine dose to 25 mg every 8 hours. Blood pressure is significantly better now. 4. Anemia secondary to end-stage renal disease. Hemoglobin is better optimized. She got two units of packed red blood cells (PRBC) transfusion. She is getting Venofer and Aranesp as well. I am going to restart her aspirin now. 5. Recent CVA and dysarthria. The patient recently got the surgery done as well. Aspirin and Plavix were on hold because of anemia. I am restarting the aspirin. Plavix continues to be on hold at this point.
== END 2018-02-26 14:47 | DRG 947 ==
LOC: M ED 14:37 → M ED INP 20:41 → M MSPAV 22:50 → OBSVTOIN 02-22 13:28
PROVIDERS: ADMIT Internal Medicine; ATTEND Internal Medicine
PROC: 30233N1 Transfusion of Nonautologous Red Blood Cells into Peripheral Vein, Percutaneous Approach (ICD-10-PCS; principal; 2018-02-22)
DX: G89.18 Other acute postprocedural pain (principal); N18.6 End stage renal disease; I13.2 Hypertensive heart and chronic kidney disease with heart failure and with stage 5 chronic kidney disease, or end stage renal disease; I50.42 Chronic combined systolic (congestive) and diastolic (congestive) heart failure; N25.81 Secondary hyperparathyroidism of renal origin; E11.22 Type 2 diabetes mellitus with diabetic chronic kidney disease; D63.1 Anemia in chronic kidney disease; R53.81 Other malaise; I25.10 Atherosclerotic heart disease of native coronary artery without angina pectoris; E87.5 Hyperkalemia; I69.322 Dysarthria following cerebral infarction; E11.40 Type 2 diabetes mellitus with diabetic neuropathy, unspecified; E78.5 Hyperlipidemia, unspecified; Z79.82 Long term (current) use of aspirin; Z99.2 Dependence on renal dialysis; Z79.02 Long term (current) use of antithrombotics/antiplatelets; Z79.899 Other long term (current) drug therapy; Z79.4 Long term (current) use of insulin; Z95.1 Presence of aortocoronary bypass graft

== ENCOUNTER 2018-05-11 05:31 | Inpatient (IN) | payer MEDICARE, BC ==
[~2018-05-11] VITALS: Ht 160 cm; Wt 60.1 kg
[~2018-05-11 05:31] MED LIST changes: -AMLO10TA4 PO; +AMLO10TA5 PO; +AMLO5TAB6 PO; +ASPE16CR TOP; +ASPI1TAB15 PO; +ASPI81TAEC PO; +CO Q10CA PO; +CO-E50CA PO; +COEN100C2 PO; +COLA100C5 PO; +DULO30CA PO; +FLOM0.4C39 PO; +HUMA100I3 SC; +HYDR-3713 PO; +HYDR-3911 PO; +ISOS10TAB PO; -LOSA-4 PO; +LOSA100T50 PO; +NORCOTAB PO; +PANT40TA3 PO; +PLAV1TAB2 PO; +PRAV1TAB39 PO; +SENN18TA PO
[2018-05-11] MEDS ORDERED: RENV2TAB PO (05:45)
[2018-05-11 06:41] LABS: BASO % 0.4 % (0.0-1.0); EOS # 0.1 10^3/uL (0.0-0.50); EOS % 2.3 % (0.0-3.0); HEMATOCRIT 31.8 % (36.0-47.0); HEMOGLOBIN 9.2 g/dl (12.0-15.5); LYMPH # 0.8 10^3/uL (1.5-4.5); LYMPH % 14.2 % (24.0-44.0); MEAN CORPUSCULAR HEMOGLOBIN 27.1 pg (27.0-33.0); MEAN CORPUSCULAR HGB CONC 28.9 g/dl (32.0-36.5); MEAN CORPUSCULAR VOLUME 93.5 fl (80.0-96.0); MONO # 0.4 10^3/uL (0.0-0.8); MONO % 7.9 % (0.0-5.0); NEUTROPHILS # 4.2 10^3/uL (1.8-7.7); NEUTROPHILS % 74.8 % (36.0-66.0); PLATELET COUNT, AUTOMATED 168 10^3/uL (150-450); WHITE BLOOD COUNT 5.6 10^3/uL (4.0-10.0)
[2018-05-11 07:07] LABS: INFLUENZA A AMPLIFICATION NEGATIVE (NEGATIVE); INFLUENZA B AMPLIFICATION NEGATIVE (NEGATIVE)
[2018-05-11 07:08] LABS: MB/CK RELATIVE INDEX 1.43 (< OR =4); TROPONIN I 0.03 NG/ML (< 0.10)
--- NOTE | 2018-05-11 08:22 | REP ---
CHEST PA AND LATERAL: 05/11/2018. Comparison: 11/24/2016, 06/18/2016, 01/09/2016. Clinical history: Dyspnea and cough. Findings: Sternotomy wires and clips from prior CABG noted. There is a vascular stent overlying the upper mediastinum in the expected course of the left brachiocephalic vein. Cardiomegaly with left atrial and ventricular enlargement. Bilateral effusions and basilar infiltrates with vascular congestion. Findings suggest pulmonary edema. Superimposed pneumonitis difficult to exclude. Bones unchanged. Impression: 1. Cardiomegaly with vascular redistribution, bilateral effusions and basilar consolidation, left greater than right. This suggests pulmonary edema but superimposed pneumonitis difficult to exclude. Clinical correlation. Electronically Signed by Marlon Marie MD 05/11/2018 06:21 P
[2018-05-11 08:40] LABS: ALBUMIN 3.3 GM/DL (3.2-5.2); ALT/SGPT 18 U/L (12-78); BILIRUBIN,DIRECT < 0.1 MG/DL (0.0-0.2); BILIRUBIN,TOTAL 0.3 MG/DL (0.2-1.0); BLOOD UREA NITROGEN 38 MG/DL (7-18); CALCIUM LEVEL 8.7 MG/DL (8.8-10.2); CARBON DIOXIDE LEVEL 31 MEQ/L (21-32); CHLORIDE LEVEL 101 MEQ/L (98-107); CREATININE FOR GFR 7.65 MG/DL (0.55-1.30); GLOMERULAR FILTRATION RATE 6.7 (>39); GLUCOSE, FASTING 171 MG/DL (70-100); NT-PRO BNP 15993 PG/ML (<125); POTASSIUM SERUM 4.8 MEQ/L (3.5-5.1); SODIUM LEVEL 138 MEQ/L (136-145)
[2018-05-11] MEDS ORDERED: NORC1TAB4 PO (10:38)
[2018-05-11] MEDS ORDERED: ASPI81CH32 PO (10:38)
[2018-05-11] MEDS ORDERED: CO Q100C10 PO (10:39)
[2018-05-11] MEDS ORDERED: CLOP75TA2 PO (10:39)
[2018-05-11] MEDS ORDERED: CARV6.25 PO (10:39)
[2018-05-11] MEDS ORDERED: CYCL5TAB PO (10:43)
[2018-05-11] MEDS ORDERED: ISOS1TAB12 PO (10:43)
[2018-05-11] MEDS ORDERED: HYDR-3910 PO (10:49)
[2018-05-11] MEDS ORDERED: NOVO70VL SC (10:49)
[2018-05-11] MEDS ORDERED: INSULADS INJ (10:49)
[2018-05-11] MEDS ORDERED: TRAM50TA2 PO (10:49)
[2018-05-11] MEDS ORDERED: DEXTROSE 50% 50 ML SYRINGE IV PRN (11:45)
[2018-05-11] MEDS ORDERED: GLUCAGON FOR INJ 1 MG VIAL (J1610) SC PRN (11:45)
[2018-05-11] MEDS ORDERED: traMADol 50 MG TAB PO PRN (11:45)
[2018-05-11] MEDS ORDERED: GLUCOSE 4 GM CHEW TABLET PO PRN (11:45)
[2018-05-11] MEDS ORDERED: ONDANSETRON 4MG/2ML VIAL (J2405) IV PRN (11:45)
[2018-05-11] MEDS ORDERED: MIRALAX *UNIT DOSE* 17GM PACKET PO PRN (11:45)
[2018-05-11] MEDS: SENOKOT S TAB PO SCH ×2 (12:03→20:46)
[2018-05-11] MEDS: CARVedilol 6.25 MG TAB PO SCH ×2 (12:04→20:46)
[2018-05-11 16:45] VITALS: BP 172/70
[2018-05-11] MEDS: ISOSORBIDE MONONITRATE 10MG TABLET PO SCH (17:49)
[2018-05-11 20:00] VITALS: BP 168/76
--- NOTE | 2018-05-11 20:31 | ECGEPIP ---
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
[2018-05-11] MEDS: MULTIVITAMINS/MINERALS THERAP 1 TAB PO SCH (20:45)
[2018-05-11] MEDS: ASCORBIC ACID 500 MG TAB PO SCH (20:46)
[2018-05-11] MEDS: CLOPIDOGREL 75 MG TAB PO SCH (20:46)
[2018-05-11] MEDS: HEPARIN SOD (PORCINE) 5000 UNITS/ML VIAL SC SCH (20:48)
[2018-05-11] MEDS: NovoLOG MIX 70/30 PER UNIT SC SCH (21:23)
--- NOTE | 2018-05-11 21:42 | CR ---
DATE OF CONSULTATION: 05/11/2018 REQUESTING PHYSICIAN: Dr. Danielle Chou CONSULTING PHYSICIAN: Dr. Kiran REASON FOR CONSULTATION: Management of end-stage renal disease and hemodialysis. CHIEF COMPLAINT: Progressive shortness of breath. HISTORY OF PRESENT ILLNESS: Bree Acosta is a 73-year-old female with past medical history of end-stage renal disease, on hemodialysis every Monday, Monday, Monday, history of combined systolic and diastolic congestive heart failure, multiple other comorbidities as mentioned below. She is well known to nephrology service for multiple previous hospitalizations and outpatient hemodialysis. She was dialyzed on Monday, but she was not feeling well. She reported that she was feeling progressive shortness of breath, weakness, lethargy. Despite dialysis she did not feel good on last Monday, so she presented to the emergency room. She was found to have elevated blood pressures. Systolic blood pressures were close to 200. She also got the imaging done, and chest x-ray showed pulmonary edema with bilateral pleural effusions. Patient was admitted to the hospitalist service today. Nephrology service was called for further help in the management of end-stage renal disease and volume management with hemodialysis. I saw and evaluated the patient today evening during hemodialysis. Urgent hemodialysis had already been arranged. She was getting the hemodialysis done, and she reported that she was feeling better. She denies any fevers or chills. She denies cough or phlegm. PAST MEDICAL HISTORY: 1. End-stage renal disease, on hemodialysis every Monday, Monday, Monday. 2. Combined systolic and diastolic congestive heart failure. Left ventricular ejection fraction around 35%. 3. Hypertension. 4. Cerebrovascular accident (CVA) with residual slurred speech. 5. Diabetes mellitus, type 2. 6. Coronary artery disease, status post coronary artery bypass grafting. 7. Hyperlipidemia. 8. Diabetic neuropathy. 9. Chronic back pain. 10. Spinal stenosis. PAST SURGICAL HISTORY: 1. Status post a left upper arm arteriovenous (AV) fistula creation. 2. Status post coronary artery bypass grafting. 3. Status post lumbar spinal laminectomy at [facility] in January 2018. ALLERGIES: Patient is allergic to PRAVASTATIN and ATORVASTATIN. FAMILY HISTORY: No significant family history of end-stage renal disease requiring hemodialysis. SOCIAL HISTORY: Patient lives at home. She denies any smoking, illicit drug abuse, or alcohol abuse. REVIEW OF SYSTEMS: CONSTITUTIONAL: Patient reports feeling weak and tired. EYES: She denies any blurry vision, double vision. ENT: She denies any dysphagia or odynophagia. She does report facial swelling. CARDIOVASCULAR: She denies any chest pain or palpitations. She does report shortness of breath, which is typical of her heart failure. RESPIRATORY: She does report progressive shortness of breath. GASTROINTESTINAL: She denies any nausea or vomiting. GENITOURINARY: She denies any dysuria or hematuria. MUSCULOSKELETAL: She reports muscle weakness; otherwise, she denies any muscle aches and pains. CENTRAL NERVOUS SYSTEM: She denies any seizures. PSYCHIATRIC: She denies any depression or anxiety. SKIN: She denies any rashes or ulcers. HEMATOLOGIC/ONCOLOGIC: She denies any easy bleeding or bruising. ENDOCRINE: She reports history of diabetes, secondary hyperparathyroidism. All other history of review of systems is negative. PHYSICAL EXAMINATION: GENERAL: Patient is awake, alert, oriented times three, lying in bed getting dialysis done. VITAL SIGNS: Temperature is 96.6 degrees Fahrenheit, blood pressure 172/70, pulse 77, respiratory rate of 18, saturating 100% on 2 liters. Her highest blood pressure before dialysis was 211/98. HEAD AND NECK: Extraocular muscles intact. Pupils equally round and reactive to light. There is mild facial edema noted. Neck is supple. Mildly elevated jugular venous distention (JVD). CARDIOVASCULAR: S1, S2, regular rate. No edema of the bilateral lower extremities. RESPIRATORY: Decreased breath sounds at the bases. Decreased vocal resonance bilaterally at the bases. ABDOMEN: Soft. Positive bowel sounds. Nontender. No organomegaly. MUSCULOSKELETAL: No clubbing or cyanosis. Pulses are 2+. CENTRAL NERVOUS SYSTEM: No focal neurological deficit. Power is 5/5 bilateral upper extremities. LABORATORY REVIEW: CBC showed a WBC 5.6, hemoglobin 9.2, platelets are 168. BMP showed sodium 138, potassium 4.8, chloride 101, bicarbonate 31, BUN 38, creatinine is 7.6. ProBNP is 15,9993. TSH is 4.05. Microbiology: There are no cultures available. IMAGING: A chest x-ray was done, which showed cardiomegaly with redistribution. Bilateral effusions and bibasilar consolidation. Left is greater than right. HOME MEDICATIONS: Include: - [place] as needed - vitamin C 500 mg by mouth daily - aspirin 81 mg daily - Coreg 6.25 mg by mouth twice a day - Plavix 75 mg daily - CoQ10 at 100 mg by mouth at bedtime - Flexeril 5 mg as needed - Colace 100 mg daily - hydralazine 25 mg by mouth twice a day - insulin Lantus 10 units daily - insulin myocardial infarction 70/30, 6 units at night - isosorbide mononitrate 10 mg by mouth twice a day - multivitamins - MiraLax 17 grams by mouth daily as needed - Renvela 1600 mg by mouth three times a day - tramadol as needed ASSESSMENT: A 73-year-old female with end-stage renal disease, on hemodialysis Monday, Monday, Monday, history of cerebrovascular accident (CVA), history of combined systolic and diastolic congestive heart failure, admitted at this time with shortness of breath secondary to fluid overload and bilateral pleural effusions. PLAN: 1. Acute hypoxemia secondary to fluid overload. Patient is in heart failure. She is clearly overloaded. I would try to remove at least 3 liters of fluid during dialysis today. If needed, patient will get another session of ultrafiltration tomorrow morning as well. 2. Acute decompensated combined systolic and diastolic congestion heart failure. Continue home dose of hydralazine, isosorbide, and carvedilol. As mentioned above, volume status is being optimized with dialysis. No need of diuretics at this time. 3. Hypertensive urgency. It is secondary to fluid overload. Volume management would also help improve the blood pressure. Continue home dose of Coreg, hydralazine, and isosorbide. 4.ESRD on HD: Pt being dialyzed according to her regular schedule today 5. Chronic kidney disease, mineral bone disease. Restart home dose of Renvela with meals. 6. Anemia and end-stage renal disease. Patient's hemoglobin is 9.2, which is suboptimal. She will be given a dose of Aranesp with next hemodialysis session. I would avoid giving Aranesp at this time because of elevated blood pressures. 7. Coronary artery disease, status post CABG. Continue current dose of aspirin and Plavix. Patient is allergic to statins. 8. Chronic back pain. Patient is currently on [place] as needed for back pain. Thank you for involving me in the care of this patient. I shall be happy to follow the patient along with you tomorrow morning. MTDD
[2018-05-11 23:59] VITALS: BP 170/64
[2018-05-12] MEDS: CYCLOBENZAPRINE 5MG TABLET PO PRN ×2 (01:14→20:38)
[2018-05-12] MEDS: NORCO, ANEXSIA 5/325MG TABLET (HYDROcodone/ACETAMINOPHEN) PO PRN ×3 (01:18→20:36)
[2018-05-12 04:00] VITALS: BP 173/77
[2018-05-12 05:58] LABS: BASO % 0.9 % (0.0-1.0); EOS # 0.1 10^3/uL (0.0-0.50); EOS % 2.6 % (0.0-3.0); HEMATOCRIT 31.2 % (36.0-47.0); HEMOGLOBIN 9.1 g/dl (12.0-15.5); MEAN CORPUSCULAR HEMOGLOBIN 26.8 pg (27.0-33.0); MEAN CORPUSCULAR HGB CONC 29.2 g/dl (32.0-36.5); MONO # 0.4 10^3/uL (0.0-0.8); MONO % 9.6 % (0.0-5.0); NEUTROPHILS % 65.5 % (36.0-66.0); PLATELET COUNT, AUTOMATED 137 10^3/uL (150-450); RED BLOOD COUNT 3.39 10^6/uL (4.00-5.40); WHITE BLOOD COUNT 4.6 10^3/uL (4.0-10.0)
[2018-05-12 06:20] LABS: CALCIUM LEVEL 8.4 MG/DL (8.8-10.2); CREATININE FOR GFR 6.07 MG/DL (0.55-1.30); GLOMERULAR FILTRATION RATE 8.8 (>39)
[2018-05-12 08:00] VITALS: BP 168/56
[2018-05-12] MEDS: HEPARIN SOD (PORCINE) 5000 UNITS/ML VIAL SC SCH ×2 (08:39→20:38)
[2018-05-12] MEDS: (RENVELA) SEVELAMER **CARBONate** 800 MG TAB PO SCH ×3 (08:39→18:49)
[2018-05-12] MEDS: LEVEMIR (INSULIN DETEMIR) 1 UNITS/0.01ML SC SCH (08:39)
[2018-05-12] MEDS: SENOKOT S TAB PO SCH ×2 (08:40→20:37)
[2018-05-12] MEDS: CARVedilol 6.25 MG TAB PO SCH ×2 (08:40→20:37)
[2018-05-12] MEDS: **hydrALAZINE HCL** 25 MG TAB PO SCH ×2 (08:40→20:35)
[2018-05-12] MEDS: ISOSORBIDE MONONITRATE 10MG TABLET PO SCH ×2 (09:11→15:00)
[2018-05-12 12:00] VITALS: BP 158/68
--- NOTE | 2018-05-12 16:52 | HPEPDOC ---
General Date of Admission May 11, 2018 at 11:32 Attending Physician: ERIKA LAWSON MD Chief Complaint The patient is a 73-year-old female admitted with a reason for visit of Esrd,Fluid Overload. Source: Patient, Old records Exam Limitations: No limitations History of Present Illness 73-year-old female with past medical history of end-stage renal disease on hemodialysis, systolic and diastolic congestive heart failure, hypertension, diabetes, CAD, dyslipidemia, 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 She was dialyzed on Monday, but she was not feeling well. She reported that she was feeling progressive shortness of breath, weakness, lethargy. Despite dialysis she did not feel good on last Monday, so she presented to the emergency room. She was found to have elevated blood pressures. Systolic blood pressures were close to 200. She also got the imaging done, and chest x-ray showed pulmonary edema with bilateral pleural effusions. All night she has been unable to lie down and has been sitting up. She was due for HD today at 11 am but she was having so much difficulty that she came to the ED at around 5 am to be evaluated. She was found to have fluid overload and chf exacerbation possibly flash pulmonary edema and admitted to the hospitalist service. Nephrology was called for setting up urgent HD. Home Medications Scheduled (Aspirin 81 Low Dose) 81 Mg Chw, 81 MG PO DAILY, (Reported) (Co Q 10) 100 Mg Cap, 100 MG PO QHS, (Reported) Ascorbic Acid (Vitamin C) 500 Mg Cap, 500 MG PO QHS, (Reported) Carvedilol (Carvedilol) 6.25 Mg Tab, 6.25 MG PO BID, (Reported) Clopidogrel Bisulfate (Clopidogrel) 75 Mg Tab, 75 MG PO QHS, (Reported) Hydralazine HCl (Hydralazine HCl) 25 Mg Tab, 25 MG PO BID, (Reported) Insulin Aspart Protamine/Aspar (Novolog Mix 70/30 (70-30) 100 Unit/ml) 1 Units/0.01 Ml Susp, 6 UNITS SC QPM, (Reported) PT TAKES PER SLIDING SCALE Insulin Glargine (Lantus) 100 Unit/Ml Inj, 10 UNIT INJ DAILY, (Reported) Isosorbide Mononitrate (Isosorbide Mononitrate) 10 Mg Tab, 10 MG PO BID, (Reported) Multivitamins *[facility] STOCKED* (Thera M Plus *[facility] STOCKED*) 1 Tab Tab, 1 TAB PO DAILY, (Reported) Sevelamer Carbonate (Renvela) 800 Mg Tab, 1,600 MG PO TID, (Reported) Scheduled PRN Acetaminophen/Hydrocodone (C[place]ar 5-325 mg) 1 Tab Tab, 1 TAB PO Q4H PRN for PAIN, (Reported) Cyclobenzaprine HCl (Cyclobenzaprine HCl) 5 Mg Tab, 5 MG PO Q6H PRN for MUSCLE SPASMS, (Reported) Docusate Sodium (Colace) 100 Mg Cap, 100 MG PO DAILY PRN for CONSTIPATION, (Reported) Polyethylene Glycol (Miralax) 1 Pow Pow, 17 GM PO DAILY PRN for CONSTIPATION, (Reported) Tramadol HCl (Tramadol HCl) 50 Mg Tab, 100 MG PO Q6H PRN for PAIN, (Reported) Allergies Coded Allergies: Pravastatin (Unverified Allergy, Unknown, 05/11/18) Rosuvastatin (Unverified Allergy, Unknown, 05/11/18) Statins (Unverified Allergy, Unknown, 05/11/18) Atorvastatin (Verified Adverse Reaction, Intermediate, ITCHING, LEG CRAMPS, 05/11/18) Past Medical History Medical History End-stage renal disease on hemodialysis every Monday, Monday, Monday. Chronic combined systolic and diastolic congestive heart failure with a left ventricle ejection fraction of around 35%. Hypertension. Diabetes mellitus type 2. Coronary artery disease status post coronary artery bypass graft (CABG). Hyperlipidemia. Cerebrovascular accident (CVA) with residual slurred speech. Diabetic neuropathy. Spinal stenosis and chronic back pain s/p surgery Surgical History Status post left upper arm arteriovenous fistula creation. Status post coronary artery bypass grafting. Status post lumbar spinal laminectomy at L2, L3, L4 at [facility] in Jan 2018 Review of Systems Constitutional: Denies: Chills, Fever, Night Sweats Skin: Denies: Rash, Lesions, Breakdown Pulmonary: Reports: Dyspnea Cardiovascular: Reports: Orthopnea; Denies: Chest Pain, Palpitations, Paroxysmal Noc. Dyspnea, Edema Gastrointestinal: Denies: Nausea, Vomiting, Abdominal Pain, Diarrhea Hematologic: Denies: Bruising, Bleeding Excessively Musculoskeletal: Reports: Back Pain Physical Examination General Exam: Positive: Alert, Cooperative, No Acute Distress Eye Exam: Positive: PERRLA, Conjunctiva & lids normal, EOMI, Other Eye Symptoms (periorbital swelling); Negative: Sclera icteric Neck Exam: Positive: Supple; Negative: JVD, thyromegaly Chest Exam: Positive: Rales (bilateral bases) Heart Exam: Positive: Rate Normal, Regular Rhythm, Normal S1, Normal S2; Negative: Murmurs, Rubs Telemetry: Positive: No significant arrhythmia Abdomen Exam: Positive: Normal bowel sounds, Soft; Negative: Tenderness, Hepatospenomegaly Extremity Exam: Positive: Normal pulses; Negative: Clubbing, Cyanosis, Edema Skin Exam: Positive: Nl turgor and temperature; Negative: Breakdown, Lesion Psych Exam: Positive: Mental status NL Vital Signs Vital Signs Date Time Temp Pulse Resp B/P (MAP) Pulse Ox O2 Delivery O2 Flow Rate FiO2 05/12/18 04:00 2.0 05/12/18 04:00 97.8 70 16 173/77 (109) 96 05/11/18 12:06 Nasal Cannula Laboratory Data Labs 24H Laboratory Tests 2 05/11/18 07:51: Total Creatine Kinase 98, Creatine Kinase MB 1.0, Creatine Kinase MB Relative Index 1.43, Troponin I 0.03 05/11/18 17:54: Bedside Glucose (Misc Panel) 114H 05/11/18 20:25: Bedside Glucose (Misc Panel) 214H 05/12/18 05:44: Immature Granulocyte % (Auto) 0.4, White Blood Count 4.6, Red Blood Count 3.39L, Hemoglobin 9.1L, Hematocrit 31.2L, Mean Corpuscular Volume 92.0, Mean Corpuscular Hemoglobin 26.8L, Mean Corpuscular Hemoglobin Concent 29.2L, Red Cell Distribution Width 17.5H, Platelet Count 137L, Neutrophils (%) (Auto) 65.5, Lymphocytes (%) (Auto) 21.0L, Monocytes (%) (Auto) 9.6H, Eosinophils (%) (Auto) 2.6, Basophils (%) (Auto) 0.9, Neutrophils # (Auto) 3.0, Lymphocytes # (Auto) 1.0L, Monocytes # (Auto) 0.4, Eosinophils # (Auto) 0.1, Basophils # (Auto) 0.0, Nucleated Red Blood Cells % (auto) 0.0, Anion Gap 6L, Glomerular Filtration Rate 8.8L, Blood Urea Nitrogen 25H, Creatinine 6.07H, Sodium Level 140, Potassium Level 4.0, Chloride Level 101, Carbon Dioxide Level 33H, Calcium Level 8.4L CBC/BMP Laboratory Tests 05/12/18 05:44 Red Blood Count 3.39 L, Mean Corpuscular Volume 92.0, Mean Corpuscular Hemoglobin 26.8 L, Mean Corpuscular Hemoglobin Concent 29.2 L, Red Cell Distribution Width 17.5 H, Neutrophils (%) (Auto) 65.5, Lymphocytes (%) (Auto) 21.0 L, Monocytes (%) (Auto) 9.6 H, Eosinophils (%) (Auto) 2.6, Basophils (%) (Auto) 0.9, Neutrophils # (Auto) 3.0, Lymphocytes # (Auto) 1.0 L, Monocytes # (Auto) 0.4, Eosinophils # (Auto) 0.1, Basophils # (Auto) 0.0, Calcium Level 8.4 L Assessment/Plan 73-year-old female with past medical history of end-stage renal disease on hemodialysis, systolic and diastolic congestive heart failure, hypertension, diabetes, CAD, dyslipidemia, 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 In the ED she was found to fluid overload with have pulmonary edema and bilateral pleural effusion and admitted to the hospitalist service for acute decompensated CHF. Acute hypoxemia secondary to fluid overload due to CHF exacerbation Acute decompensated combined systolic and diastolic congestion heart failure. volume status is being optimized with dialysis. No need of diuretics at this time. Hypertensive urgency due to fluid overload and CHF exacerbation Continue home dose of Coreg, hydralazine, and isosorbide. ESRD on HD for 3 years urgent HD arranged. management as per nephrology Anemia and end-stage renal disease. aranesp and iron as per nephrology Coronary artery disease, status post CABG. Continue current dose of aspirin, Plavix, imdur Patient is allergic to statins. Diabetes levemir and aspart/protamine Bilateral Bronchiectasis with b/l calcified granulomas noted since 2013 and stable. Chronic back pain with history of lumber laminectomy Patient is currently on [place] and tramadol will continue. DVT prophylaxis ordered. Plan / VTE VTE Prophylaxis Ordered?: Yes ERIKA LAWSON MD May 12, 2018 06:58
[2018-05-12 20:00] VITALS: BP 154/78
--- NOTE | 2018-05-12 20:16 | IPNPDOC ---
Subjective Date Seen The patient was seen on 05/12/18. Subjective Chief Complaint/HPI SOB Events since last encounter Complains of chest pain on the left infraaxillary area. SOB is better but still requiring oxygen. Objective Physical Examination General Exam: Positive: Alert, Cooperative, No Acute Distress Eye Exam: Positive: PERRLA, Conjunctiva & lids normal, EOMI, Other Eye Symptoms ENT Exam: Positive: Atraumatic, Mucous membr. moist/pink, Pharynx Normal Neck Exam: Positive: Supple Chest Exam: Positive: Rales (at both bases) Heart Exam: Positive: Rate Normal, Regular Rhythm, Normal S1, Normal S2 Telemetry: Positive: No significant arrhythmia Abdomen Exam: Positive: Normal bowel sounds, Soft Extremity Exam: Positive: Normal pulses Skin Exam: Positive: Nl turgor and temperature Psych Exam: Positive: Mental status NL Assessment /Plan Assessment 73-year-old female with past medical history of end-stage renal disease on hemodialysis, systolic and diastolic congestive heart failure, hypertension, diabetes, CAD, dyslipidemia, 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 In the ED she was found to fluid overload with have pulmonary edema and bilateral pleural effusion and admitted to the hospitalist service for acute decompensated CHF. Acute hypoxemia secondary to fluid overload due to CHF exacerbation Acute decompensated combined systolic and diastolic congestion heart failure. volume status is being optimized with dialysis. No need of diuretics at this time. Hypertensive urgency due to fluid overload and CHF exacerbation Continue home dose of Coreg, hydralazine, and isosorbide. ESRD on HD for 3 years urgent HD arranged. management as per nephrology Anemia and end-stage renal disease. aranesp and iron as per nephrology Coronary artery disease, status post CABG. Continue current dose of aspirin, Plavix, imdur Patient is allergic to statins. Diabetes levemir and aspart/protamine Bilateral Bronchiectasis with b/l calcified granulomas with mediastinal lymphadenopathy noted since [address] chest Chronic back pain with history of lumber laminectomy Patient is currently on [place] and tramadol will continue. DVT prophylaxis ordered. Plan/VTE VTE Prophylaxis Ordered?: Yes VS, I&O, 24H, Fishbone Vital Signs/I&O Vital Signs Date Time Temp Pulse Resp B/P (MAP) Pulse Ox O2 Delivery O2 Flow Rate FiO2 05/12/18 16:00 2.0 05/12/18 15:00 158/68 05/12/18 12:28 97.3 80 18 100 05/11/18 12:06 Nasal Cannula I&O- Last 24 Hours up to 6 AM 05/12/18 06:00 Intake Total 0 ml Output Total 2500 ml Balance -2500 ml Laboratory Data 24H LABS Laboratory Tests 2 05/11/18 20:25: Bedside Glucose (Misc Panel) 214H 05/12/18 05:44: Immature Granulocyte % (Auto) 0.4, White Blood Count 4.6, Red Blood Count 3.39L, Hemoglobin 9.1L, Hematocrit 31.2L, Mean Corpuscular Volume 92.0, Mean Corpusc ular Hemoglobin 26.8L, Mean Corpuscular Hemoglobin Concent 29.2L, Red Cell Distribution Width 17.5H, Platelet Count 137L, Neutrophils (%) (Auto) 65.5, Lymphocytes (%) (Auto) 21.0L, Monocytes (%) (Auto) 9.6H, Eosinophils (%) (Auto) 2.6, Basophils (%) (Auto) 0.9, Neutrophils # (Auto) 3.0, Lymphocytes # (Auto) 1.0L, Monocytes # (Auto) 0.4, Eosinophils # (Auto) 0.1, Basophils # (Auto) 0.0, Nucleated Red Blood Cells % (auto) 0.0, Anion Gap 6L, Glomerular Filtration Rate 8.8L, Blood Urea Nitrogen 25H, Creatinine 6.07H, Sodium Level 140, Potassium Level 4.0, Chloride Level 101, Carbon Dioxide Level 33H, Calcium Level 8.4L 05/12/18 17:51: Bedside Glucose (Misc Panel) 134H CBC/BMP Laboratory Tests 05/12/18 05:44 Red Blood Count 3.39 L, Mean Corpuscular Volume 92.0, Mean Corpuscular Hemoglobin 26.8 L, Mean Corpuscular Hemoglobin Concent 29.2 L, Red Cell Di stribution Width 17.5 H, Neutrophils (%) (Auto) 65.5, Lymphocytes (%) (Auto) 21.0 L, Monocytes (%) (Auto) 9.6 H, Eosinophils (%) (Auto) 2.6, Basophils (%) (Auto) 0.9, Neutrophils # (Auto) 3.0, Lymphocytes # (Auto) 1.0 L, Monocytes # (Auto) 0.4, Eosinophils # (Auto) 0.1, Basophils # (Auto) 0.0, Calcium Level 8.4 L ERIKA LAWSON MD May 12, 2018 20:16
[2018-05-12] MEDS: ASCORBIC ACID 500 MG TAB PO SCH (20:32)
[2018-05-12] MEDS: MULTIVITAMINS/MINERALS THERAP 1 TAB PO SCH (20:32)
[2018-05-12] MEDS: CLOPIDOGREL 75 MG TAB PO SCH (20:36)
[2018-05-12] MEDS: NovoLOG MIX 70/30 PER UNIT SC SCH (20:39)
[2018-05-12] MEDS ORDERED: DARBEPOETIN 100 MCG/0.5 ML *DIALYSIS* SYRINGE (J0882) IV SCH (22:15)
[2018-05-13 00:10] VITALS: BP 158/78
[2018-05-13] MEDS: NORCO, ANEXSIA 5/325MG TABLET (HYDROcodone/ACETAMINOPHEN) PO PRN ×3 (00:32→23:08)
[2018-05-13 00:39] VITALS: BP 158/78
[2018-05-13 05:58] LABS: BASO % 0.6 % (0.0-1.0); EOS # 0.2 10^3/uL (0.0-0.50); EOS % 3.3 % (0.0-3.0); HEMATOCRIT 33.3 % (36.0-47.0); HEMOGLOBIN 9.8 g/dl (12.0-15.5); LYMPH # 1.3 10^3/uL (1.5-4.5); LYMPH % 25.2 % (24.0-44.0); MEAN CORPUSCULAR HEMOGLOBIN 27.3 pg (27.0-33.0); MEAN CORPUSCULAR HGB CONC 29.4 g/dl (32.0-36.5); MEAN CORPUSCULAR VOLUME 92.8 fl (80.0-96.0); MONO # 0.6 10^3/uL (0.0-0.8); MONO % 12.2 % (0.0-5.0); NEUTROPHILS % 58.3 % (36.0-66.0); PLATELET COUNT, AUTOMATED 137 10^3/uL (150-450); RED BLOOD COUNT 3.59 10^6/uL (4.00-5.40); WHITE BLOOD COUNT 5.2 10^3/uL (4.0-10.0)
[2018-05-13 06:00] VITALS: BP 142/68
[2018-05-13 06:25] LABS: CALCIUM LEVEL 8.4 MG/DL (8.8-10.2); CREATININE FOR GFR 8.14 MG/DL (0.55-1.30); GLOMERULAR FILTRATION RATE 6.3 (>39); POTASSIUM SERUM 4.4 MEQ/L (3.5-5.1)
--- NOTE | 2018-05-13 08:29 | REP ---
CT of the chest without IV contrast: Comparison is 12/08/2015. There are bilateral small pleural effusions. Left pleural effusion is larger. Bilateral pleural effusion similar in size are present on the comparison study. There are bilateral lower lobe infiltrates. There are bilateral lower lobe infiltrates on the comparison study, similar in size. There is a 9 mm left lower lobe lung nodule on image 59, not significantly changed from the comparison study. There are three pleural-based lung nodules in the left upper lobe on image 31 measuring 4 mm, 7 mm and 9 mm cyst, not present previously. There is a 5 ml pleural-based lung nodule in the lingula on image 45, not present previously. There are calcified granulomas, unchanged. There are enlarged mediastinal paratracheal nodes, unchanged. The thoracic aorta is unremarkable. There is an endovascular stent in the innominate vein, unchanged. Cardiac size is enlarged. This is unchanged. There is no pericardial effusion. The upper abdomen are confluent mass like densities in the lori hepatis, nonspecific, bowel loops versus adenopathy. The The visualized portions of the adrenals are unremarkable. Impression: Bilateral pleural effusions and bilateral lobe infiltrates, unchanged. Lung nodules as described. Enlarged mediastinal paratracheal nodes, unchanged. Artifactual bowel loops in the lori hepatis versus c confluent masses/adenopathy. Electronically Signed by Bebeto Hoffman MD 05/13/2018 08:20 A
[2018-05-13] MEDS: HEPARIN SOD (PORCINE) 5000 UNITS/ML VIAL SC SCH ×2 (09:00→20:56)
[2018-05-13] MEDS: LEVEMIR (INSULIN DETEMIR) 1 UNITS/0.01ML SC SCH (09:00)
[2018-05-13] MEDS: SENOKOT S TAB PO SCH ×2 (09:09→20:55)
[2018-05-13] MEDS: ISOSORBIDE MONONITRATE 10MG TABLET PO SCH ×2 (09:10→15:20)
[2018-05-13] MEDS: CARVedilol 6.25 MG TAB PO SCH ×2 (09:10→20:58)
[2018-05-13] MEDS: **hydrALAZINE HCL** 25 MG TAB PO SCH ×2 (09:11→20:58)
[2018-05-13] MEDS: (RENVELA) SEVELAMER **CARBONate** 800 MG TAB PO SCH ×3 (09:11→17:19)
--- NOTE | 2018-05-13 13:59 | IPN ---
DATE OF SERVICE: 05/12/2018 SUBJECTIVE: The patient was seen and examined at the bedside today morning. The patient is afebrile, hemodynamically stable. She reports that her shortness of breath is significantly better today as compared with yesterday. She was dialyzed yesterday. Ultrafiltration was 2.5 liters. Further ultrafiltration was stopped because she started cramping. The patient still reports left-sided chest discomfort and is wondering if she would need another left-sided thoracentesis. OBJECTIVE: Vital signs: Temperature is 97.3 degrees Fahrenheit, blood pressure 158/68, pulse is 80, respiratory rate of 18, saturating 100% on 2 liters nasal cannula. Intake and output: Ultrafiltration with hemodialysis was 2.5 liters yesterday. Weight in the bed scale is 66.3 kg. PHYSICAL EXAMINATION: General: The patient is awake, alert, oriented times three, lying in bed, no apparent distress. Head and neck examination: Pupils equally round and reactive to light. Facial edema is getting better. Neck is supple. Mildly elevated jugular venous distention (JVD). Cardiovascular: S1, S2, regular rate. No edema of the bilateral lower extremities. Respiratory: Decreased breath sounds at the bases. Decreased vocal resonance on the bases. Left is worse than right. Abdomen: Is soft. Positive bowel sounds. Nontender. No organomegaly. Musculoskeletal: No clubbing or cyanosis. Pulses are 2+. Central nervous system ([employer] ADMINISTRATOR): No focal deficit. Power is 5/5 in all extremities. LABORATORY REVIEW: Complete blood count (CBC) showed WBC is 4.6, hemoglobin 9.1, platelets are 137. Basic metabolic profile (BMP) showed sodium 140, potassium is 4, chloride 101, bicarbonate 33, BUN 25, creatinine is 6. CURRENT INPATIENT MEDICATIONS: The patient's medications were all reviewed by me. There is no change in the medications today as compared with yesterday. ASSESSMENT AND PLAN: 1. End-stage renal disease, on hemodialysis. The patient was dialyzed according to her regular schedule yesterday. However, because of fluid overload, she will get another session of ultrafiltration. I will try to remove 2 more liters of fluid as tolerated by her blood pressure. 2. Acute decompensated combines systolic and diastolic congestive heart failure. The patient got 2.5 liters of fluid removed yesterday. As mentioned above, the patient will get 2 more liters of fluid removed today. Continue home dose of Coreg, isosorbide, and hydralazine. 3. Hypertension with end-stage renal disease. Elevated blood pressures were secondary to fluid overload. Blood pressure is improving after hemodialysis session. Continue the home dose of hydralazine, Coreg, and isosorbide. 4. Anemia in end-stage renal disease. The patient has been started on Aranesp with hemodialysis. The rest of the anemia management will be done as outpatient. 5. Bilateral pleural effusions. Left pleural effusion is worse than right. I will try to do another ultrafiltration (UF) and see if her effusion gets better. If it does not improve, then she might need a pleural tap.
[2018-05-13 14:00] VITALS: BP 130/78
--- NOTE | 2018-05-13 15:03 | IPNPDOC ---
Subjective Date Seen The patient was seen on 05/13/18. Subjective Chief Complaint/HPI SOB Events since last encounter Pateint had HD on monday and UF on monday. her breathing clinically is back to baseline. SHe does have some mild chronic cough and is still using oxygen. Does not want to go home today. Medically she is cleared to go home and keep her HD outpatient nirmal tomorrow. Dr Kiran has also explained that they have removed as much fluid as possible at this time. She is ok to go back to her outpatient HD schedule. Patient is adamant about not leaving today as she wont be able to call her transportation for her HD tomorrow morning. Apparently their offices are closed over the week end. Will try to discharge her tomorrow morning directly to her HD unit if she refuses to go today. will give her 24 hour discharge notice. Objective Physical Examination General Exam: Positive: Alert, Cooperative, No Acute Distress Eye Exam: Positive: PERRLA, Conjunctiva & lids normal, EOMI, Other Eye Symptoms ENT Exam: Positive: Atraumatic, Mucous membr. moist/pink, Pharynx Normal Neck Exam: Positive: Supple Chest Exam: Positive: Rales (at both bases) Heart Exam: Positive: Rate Normal, Regular Rhythm, Normal S1, Normal S2 Telemetry: Positive: No significant arrhythmia Abdomen Exam: Positive: Normal bowel sounds, Soft Extremity Exam: Positive: Normal pulses Skin Exam: Positive: Nl turgor and temperature Psych Exam: Positive: Mental status NL Assessment /Plan Assessment 73-year-old female with past medical history of end-stage renal disease on hemodialysis, systolic and diastolic congestive heart failure, hypertension, diabetes, CAD, dyslipidemia, 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 In the ED she was found to fluid overload with have pulmonary edema and bilateral pleural effusion and admitted to the hospitalist service for acute decompensated CHF. Acute hypoxemia secondary to fluid overload due to CHF exacerbation Acute decompensated combined systolic and diastolic congestion heart failure. volume status is being optimized with dialysis. No need of diuretics at this time. Hypertensive urgency due to fluid overload and CHF exacerbation Continue home dose of Coreg, hydralazine, and isosorbide. ESRD on HD for 3 years Due to diabetes and hypertension urgent HD arranged. management as per nephrology Anemia and end-stage renal disease. aranesp and iron as per nephrology Coronary artery disease, status post CABG. Continue current dose of aspirin, Plavix, imdur Patient is allergic to statins. Diabetes levemir and aspart/protamine Bilateral Bronchiectasis with b/l calcified granulomas with mediastinal lymphadenopathy and chronic fibrosis and infiltrates of the lower lobes left > right stable since 2015. No signs of acute pneumonia present. prior vasculitis and collagen vascular disease work up has been negative in 2006 noted since 2013 would suggest referral to pulmonary as an outpatient. May have Chronic back pain with history of lumber laminectomy in jan 2018 Patient is currently on [place] and tramadol will continue. DVT prophylaxis ordered. Plan/VTE VTE Prophylaxis Ordered?: Yes VS, I&O, 24H, Fishbone Vital Signs/I&O Vital Signs Date Time Temp Pulse Resp B/P (MAP) Pulse Ox O2 Delivery O2 Flow Rate FiO2 05/13/18 14:00 97.9 79 19 130/78 (95) 98 05/12/18 20:00 1.0 05/11/18 12:06 Nasal Cannula I&O- Last 24 Hours up to 6 AM 05/13/18 06:00 Intake Total 600 ml Output Total 2000 ml Balance -1400 ml Laboratory Data 24H LABS Laboratory Tests 2 05/12/18 17:51: Bedside Glucose (Misc Panel) 134H 05/12/18 20:29: Bedside Glucose (Misc Panel) 124H 05/13/18 05:25: Immature Granulocyte % (Auto) 0.4, White Blood Count 5.2, Red Blood Count 3.59L, Hemoglobin 9.8L, Hematocrit 33.3L, Mean Corpuscular Volume 92.8, Mean Corpuscular Hemoglobin 27.3, Mean Corpuscular Hemoglobin Concent 29.4L, Red Cell Distribution Width 17.2H, Platelet Count 137L, Neutrophils (%) (Auto) 58.3, Lymphocytes (%) (Auto) 25.2, Monocytes (%) (Auto) 12.2H, Eosinophils (%) (Auto) 3.3H, Basophils (%) (Auto) 0.6, Neutrophils # (Auto) 3.0, Lymphocytes # (Auto) 1.3L, Monocytes # (Auto) 0.6, Eosinophils # (Auto) 0.2, Basophils # (Auto) 0.0, Nucleated Red Blood Cells % (auto) 0.0, Anion Gap 6L, Glomerular Filtration Rate 6.3L, Blood Urea Nitrogen 42#H, Creatinine 8.14*H, Sodium Level 136, Potassium Level 4.4, Chloride Level 98, Carbon Dioxide Level 32, Calcium Level 8.4L 05/13/18 11:47: Bedside Glucose (Misc Panel) 189H CBC/BMP Laboratory Tests 05/13/18 05:25 Red Blood Count 3.59 L, Mean Corpuscular Volume 92.8, Mean Corpuscular He moglobin 27.3, Mean Corpuscular Hemoglobin Concent 29.4 L, Red Cell Distribution Width 17.2 H, Neutrophils (%) (Auto) 58.3, Lymphocytes (%) (Auto) 25.2, Monocytes (%) (Auto) 12.2 H, Eosinophils (%) (Auto) 3.3 H, Basophils (%) (Auto) 0.6, Neutrophils # (Auto) 3.0, Lymphocytes # (Auto) 1.3 L, Monocytes # (Auto) 0.6, Eosinophils # (Auto) 0.2, Basophils # (Auto) 0.0, Calcium Level 8.4 L ERIKA LAWSON MD May 13, 2018 15:03
--- NOTE | 2018-05-13 17:49 | IPN ---
DATE: 05/13/2018 SUBJECTIVE: Patient was seen and examined at the bedside today morning. She reports that she is feeling much better today as compared with yesterday. She got another session of ultrafiltration today, 2 liters of fluid was removed. OBJECTIVE: VITAL SIGNS: Temperature 97.9 degrees Fahrenheit, blood pressure 130/78, pulse 79, respiratory rate 19, saturating 98% on room air. Intake and output: Urine output is not recorded, ultrafiltration done yesterday had 2 liters of fluid removed. Weight in the bed scale is 60.1 kg. PHYSICAL EXAMINATION: GENERAL: Patient is awake, alert, oriented times three, sitting up in the bed, no apparent distress. HEAD and NECK EXAM: Extraocular muscles intact. Pupils equally round and reactive to light. Mucous membranes are moist. Neck is supple, there is no jugular venous distention (JVD). CARDIOVASCULAR: S1, S2, regular rate. No edema of bilateral lower extremities. RESPIRATORY: Decreased breath sounds at the bases with mild crepitations at the bases bilaterally. ABDOMEN: Soft, positive bowel sounds, nontender. No organomegaly. MUSCULOSKELETAL: No clubbing or cyanosis. Pulses are 2+. CENTRAL NERVOUS SYSTEM ([employer] OFFICER): No focal deficit. Power is 5/5 in all extremities. LABORATORY REVIEW: CBC showed WBC 5.2, hemoglobin 9.8, platelets 137. BMP showed sodium 136, potassium 4.4, chloride 98, bicarbonate 32, BUN 42, creatinine 8.1, calcium 8.4. IMAGING: A CT of the chest was done yesterday which showed bilateral pleural effusions and lower lobe infiltrates which were small effusions, left effusion was slightly larger than right. CURRENT INPATIENT MEDICATIONS: Patient's medications were all reviewed by me. There is no change in the medications today as compared with yesterday. ASSESSMENT AND PLAN: 1. End-stage renal disease on hemodialysis. Patient's regular dialysis days are Monday, Monday, Monday. She will be dialyzed tomorrow as outpatient according to her regular schedule. 2. Acute decompensated combined systolic and diastolic congestive heart failure. Volume status is better. She got [id number] total fluid removal of 4.5 kg in 2 days. Her dry weight will be set according to her outpatient weight after dialysis. 3. Bilateral pleural effusions. Pleural effusions are better. Left pleural effusion is slightly greater than right, however it does not need to be tapped at this point. 4. Hypertension with end-stage renal disease. Her blood pressure is significantly better. Continue home dose of anti-hypertensive medications. 5. Disposition. It is okay to discharge the patient from a nephrology standpoint. She will be followed up as outpatient.
[2018-05-13] MEDS: CLOPIDOGREL 75 MG TAB PO SCH (20:55)
[2018-05-13] MEDS: MULTIVITAMINS/MINERALS THERAP 1 TAB PO SCH (20:55)
[2018-05-13] MEDS: ASCORBIC ACID 500 MG TAB PO SCH (20:55)
[2018-05-13] MEDS: NovoLOG MIX 70/30 PER UNIT SC SCH (20:56)
[2018-05-13 22:00] VITALS: BP 139/60
[2018-05-13] MEDS: CYCLOBENZAPRINE 5MG TABLET PO PRN (23:07)
[2018-05-14 06:00] VITALS: BP 150/62
[2018-05-14 06:28] LABS: BASO # 0.1 10^3/uL (0.0-0.2); BASO % 0.9 % (0.0-1.0); EOS # 0.2 10^3/uL (0.0-0.50); EOS % 2.7 % (0.0-3.0); HEMATOCRIT 32.3 % (36.0-47.0); HEMOGLOBIN 9.7 g/dl (12.0-15.5); LYMPH # 1.2 10^3/uL (1.5-4.5); LYMPH % 21.7 % (24.0-44.0); MEAN CORPUSCULAR HEMOGLOBIN 27.3 pg (27.0-33.0); MONO # 0.6 10^3/uL (0.0-0.8); MONO % 11.2 % (0.0-5.0); NEUTROPHILS # 3.6 10^3/uL (1.8-7.7); NEUTROPHILS % 63.1 % (36.0-66.0); PLATELET COUNT, AUTOMATED 128 10^3/uL (150-450); RED BLOOD COUNT 3.55 10^6/uL (4.00-5.40); WHITE BLOOD COUNT 5.6 10^3/uL (4.0-10.0)
[2018-05-14 06:52] LABS: CALCIUM LEVEL 8.4 MG/DL (8.8-10.2); CREATININE FOR GFR 9.89 MG/DL (0.55-1.30); POTASSIUM SERUM 4.4 MEQ/L (3.5-5.1)
[2018-05-14 08:00] VITALS: BP 150/60
[2018-05-14] MEDS: (RENVELA) SEVELAMER **CARBONate** 800 MG TAB PO SCH (08:00)
[2018-05-14] MEDS: ISOSORBIDE MONONITRATE 10MG TABLET PO SCH (08:00)
[2018-05-14] MEDS: **hydrALAZINE HCL** 25 MG TAB PO SCH (08:28)
[2018-05-14] MEDS: CARVedilol 6.25 MG TAB PO SCH (08:28)
[2018-05-14] MEDS: HEPARIN SOD (PORCINE) 5000 UNITS/ML VIAL SC SCH (08:28)
[2018-05-14] MEDS: SENOKOT S TAB PO SCH (08:28)
[2018-05-14] MEDS: LEVEMIR (INSULIN DETEMIR) 1 UNITS/0.01ML SC SCH (09:00)
--- NOTE | 2018-05-14 11:16 | NOCOX ---
DATE OF PROCEDURE: 05/12/2018 Nocturnal oximetry was performed on room air. A total of 6 hours and 49 minutes of data was reviewed. Mean oxygen saturation for the study was 98% with a minimum recorded value of about 87%. The reports lists 54% that was clearly artifact. She spent 1.3% of the night with saturations less than or equal to 89% with the longest continuous time being 1 minute and 26 seconds. In reviewing the SpO2 wave form, there were 1-2% fluctuations that may be suggestive of sleep disordered breathing. IMPRESSION: 1. Acceptable room air nocturnal saturation. 2. 1-2% fluctuation in the SpO2 wave form that may suggest sleep disorder breathing. Clinical correlation will be necessary.
== END 2018-05-14 10:10 | disposition home or self-care (01) | DRG 291 ==
LOC: M ED 05:31 → M ED INP 11:32 → M PCU 16:42 → M MSPAV 05-13 00:06
PROVIDERS: ADMIT Internal Medicine Nephrology; ATTEND Internal Medicine Nephrology
PROC: 5A1D70Z Performance of Urinary Filtration, Intermittent, Less than 6 Hours Per Day (ICD-10-PCS; principal; 2018-05-11)
DX: I13.2 Hypertensive heart and chronic kidney disease with heart failure and with stage 5 chronic kidney disease, or end stage renal disease (principal); N18.6 End stage renal disease; I50.43 Acute on chronic combined systolic (congestive) and diastolic (congestive) heart failure; I69.351 Hemiplegia and hemiparesis following cerebral infarction affecting right dominant side; E11.22 Type 2 diabetes mellitus with diabetic chronic kidney disease; I25.10 Atherosclerotic heart disease of native coronary artery without angina pectoris; E78.5 Hyperlipidemia, unspecified; R09.02 Hypoxemia; I69.328 Other speech and language deficits following cerebral infarction; I16.0 Hypertensive urgency; E11.40 Type 2 diabetes mellitus with diabetic neuropathy, unspecified; D63.1 Anemia in chronic kidney disease; M48.061 Spinal stenosis, lumbar region without neurogenic claudication; J47.9 Bronchiectasis, uncomplicated; Z99.2 Dependence on renal dialysis; Z79.4 Long term (current) use of insulin; Z79.899 Other long term (current) drug therapy; Z88.8 Allergy status to other drugs, medicaments and biological substances; Z95.1 Presence of aortocoronary bypass graft; Z79.82 Long term (current) use of aspirin; Z79.02 Long term (current) use of antithrombotics/antiplatelets

== ENCOUNTER → 2018-05-31 | Outpatient (CLI) | payer MEDICARE, BC ==
[~2018-05-31] MED LIST changes: -/METO5TA PO; -/QUIN20TA OR; +ACCU1TAB2 OR; +AMLO-151 PO; -AMMO12CR4 TOP; +AMMO12CR7 TOP; +ASPI-286 PO; +ASPI81CH33 PO; +ATAC1TAB; +ATAC1TAB OR; +BUPIVACAINE HCL 0.5% 10 ML VIAL As Ordered ONE; -CHIL81CH2 PO; +CO Q100C10 PO; -DULO30CA PO; +DULO30CA9 PO; +HYDR-3715 PO; +HYDRO50TAB PO; +INSULADS INJ; +ISOS1TAB12 PO; +ISOVUE-300 61% 100ML VIAL (Q9967) As Ordered ONE; +LIDOCAINE 2% MDV 20 ML VIAL As Ordered ONE; +METO1TAB88 PO; +MIDAZOLAM INJ 2 MG/2 ML VIAL (J2250) As Ordered ONE; -MIRA255PW PO; +NORC1TAB7 PO; -NORCOTAB PO; +NOVO70VL SC; +POLY1POW4 PO; +PRAV80TA2; +SEVE800T3 PO; -[UNRECOGNIZED DRUG - CODE]; -[UNRECOGNIZED DRUG - CODE] OR; +fentaNYL 100 MCG/2 ML INJECTION (J3010) As Ordered ONE
--- NOTE | 2018-07-04 07:50 | REPIR ---
DATE OF PROCEDURE: 05/31/2018 PREOPERATIVE DIAGNOSIS: Dysfunctional left brachiocephalic arteriovenous fistula. POSTOPERATIVE DIAGNOSIS: Dysfunctional left brachiocephalic arteriovenous fistula. PROCEDURE: Left brachiocephalic arteriovenous fistulogram, left cephalic vein angioplasty with 8 x 200 mm balloon. SURGEON: Dr. Vy Dillard. ANESTHESIA: Local with sedation with 2 mg Versed, 100 mcg of fentanyl and 2 mL of 2% lidocaine mixed with 0.5% Marcaine. FLUORO TIME: 1.0 minute. CONTRAST: 3 mL. SEDATION TIME: From 10:57 a.m. to 11:18 a.m. for a total of 21 minutes. COMPLICATIONS: None. DRAINS: None. SPECIMEN: None. IMPLANTS: None. INDICATION: The patient is a 73-year-old female with left brachiocephalic arteriovenous fistula which is dysfunctional with pulsatility and excessive bleeding on decannulation. The patient will undergo a fistulogram, possible angioplasty stent and/or atherectomy. Risks, benefits, alternative options were discussed with the patient. DESCRIPTION OF PROCEDURE: The patient was taken to the angiography suite, placed supine on the angiography room table and the left upper extremity was prepped and draped in a standard surgical fashion. The arteriovenous fistula cannulated and a sheath eventually placed after which a fistulogram was performed showing stenosis in the cephalic vein. The cephalic vein with angioplasty with a 8 x 200 balloon. A retrograde brachial artery angiogram was performed showing no intervention required. A completion fistulogram was performed showing resolution of the stenosis after angioplasty with the 8 x 200 balloon. There was a good thrill palpable in the fistula. Catheters and wires were removed. The sheath was removed and #2-0 Prolene suture placed at the puncture site for hemostasis. Dressings were then applied. The patient tolerated the procedure well. All instrument, sponge and needle counts were correct at the end the case. There were no complications. Dr. Dillard was present for directed the entire case. The patient was transferred to the holding area and subsequent discharged in stable condition.
== END | disposition home or self-care (01) ==
LOC: M IRPRO 09:04
PROVIDERS: ATTEND Surgery Vascular Surgery
DX: T82.858A Stenosis of other vascular prosthetic devices, implants and grafts, initial encounter (principal)
CPT/HCPCS: 36215; 36902; 75710; C1725; C1769; C1894; J2250; J3010; Q9967

== ENCOUNTER → 2018-06-07 | Outpatient (CLI) | payer MEDICARE, BC ==
--- NOTE | 2018-07-04 08:04 | REPIR ---
DATE OF PROCEDURE: 06/07/2018 ATTENDING SURGEON: Dr. Vy Dillard INSTRUCTIONAL DESIGN TECHNOLOGIST: Niraj Ricardo and Sharifa De La Cruz PREOPERATIVE DIAGNOSES: 1. Left upper extremity swelling. 2. Dysfunctional left brachiocephalic arteriovenous fistula. 3. End-stage renal disease. POSTOPERATIVE DIAGNOSES: 1. Left upper extremity swelling. 2. Dysfunctional left brachiocephalic arteriovenous fistula. 3. End-stage renal disease. PROCEDURE: Left brachiocephalic arteriovenous fistulogram. Left cephalic vein angioplasty with 10 x 8 balloon. Left subclavian vein angioplasty with 10 x 8 balloon. Left innominate vein angioplasty with 10 x 8 balloon. INDICATION: The patient is a 73-year-old female who underwent angioplasty of her cephalic vein and her fistula, but has now developed swelling consistent with central venous obstruction. The patient will undergo a fistulogram with possible angioplasty, stent and/or atherectomy. Risks, benefits and alternative treatment options have been discussed with the patient. ANESTHESIA: Local with sedation with 1 mg Versed, 50 mcg of fentanyl and 2 mL of 2% lidocaine mixed with 0.5% Marcaine. SEDATION TIME: Was from 8:08 a.m. to 8:29 a.m. for a total of 21 minutes. FLUORO TIME: 1.4 minutes. CONTRAST: 11 mL of ISOVUE 300. HEPARIN: None. COMPLICATIONS: None. DRAINS: None. SPECIMENS: None. IMPLANTS: None. PROCEDURE: The patient was taken to the angiography suite, placed supine on the angiography room table and then prepped and draped in a standard surgical fashion. The fistula was cannulated and a fistulogram was performed showing stenosis essentially. The cephalic vein, subclavian vein, innominate vein were angioplastied with a 10 x 8 balloon and a completion fistulogram showed resolution of the stenosis with good flow through the fistula and into the central venous system. Catheters and wires were removed. The sheath was removed and a #2-0 Prolene suture was placed at the puncture site for hemostasis. Dressings were then applied. The patient tolerated procedure well. All instrument, sponge, and needle counts were correct at the end of case. There were no complications. Dr. Dillard was present for and directed the entire case. The patient was transferred to the holding area and subsequently discharged in stable condition. The fistula is stable for use for hemodialysis access.
== END | disposition home or self-care (01) ==
LOC: M IRPRO 06:47
PROVIDERS: ATTEND Surgery Vascular Surgery
DX: T82.858A Stenosis of other vascular prosthetic devices, implants and grafts, initial encounter (principal); N18.6 End stage renal disease
CPT/HCPCS: 36902; 36907; C1725; C1769; C1894; J2250; J3010; Q9967

== ENCOUNTER 2018-07-03 11:54 | Emergency (ER) | payer MEDICARE, BC ==
[~2018-07-03] VITALS: Ht 165.1 cm; Wt 66.5 kg
[~2018-07-03 11:54] MED LIST changes: -BUPIVACAINE HCL 0.5% 10 ML VIAL As Ordered ONE; -ISOVUE-300 61% 100ML VIAL (Q9967) As Ordered ONE; -LIDOCAINE 2% MDV 20 ML VIAL As Ordered ONE; -MIDAZOLAM INJ 2 MG/2 ML VIAL (J2250) As Ordered ONE; -SEVE800T3 PO; -fentaNYL 100 MCG/2 ML INJECTION (J3010) As Ordered ONE
[2018-07-03] MEDS ORDERED: SEVE800T3 PO (13:21)
[2018-07-03] MEDS ORDERED: NS 1,000 ML IV SCH (13:26)
[2018-07-03 14:10] LABS: BASO % 0.6 % (0.0-1.0); EOS # 0.1 10^3/uL (0.0-0.50); EOS % 1.9 % (0.0-3.0); HEMATOCRIT 42.3 % (36.0-47.0); HEMOGLOBIN 12.2 g/dl (12.0-15.5); LYMPH % 19.8 % (24.0-44.0); MEAN CORPUSCULAR HEMOGLOBIN 27.2 pg (27.0-33.0); MEAN CORPUSCULAR HGB CONC 28.8 g/dl (32.0-36.5); MEAN CORPUSCULAR VOLUME 94.2 fl (80.0-96.0); MONO # 0.4 10^3/uL (0.0-0.8); MONO % 9.2 % (0.0-5.0); NEUTROPHILS # 3.3 10^3/uL (1.8-7.7); NEUTROPHILS % 68.1 % (36.0-66.0); PLATELET COUNT, AUTOMATED 113 10^3/uL (150-450); RED BLOOD COUNT 4.49 10^6/uL (4.00-5.40); WHITE BLOOD COUNT 4.8 10^3/uL (4.0-10.0)
[2018-07-03] MEDS ORDERED: ISOVUE-370 76% 100ML VIAL (Q9967) As Ordered ONE (14:17)
[2018-07-03 14:42] LABS: ACETAMINOPHEN LEVEL < 2.0 UG/ML (10.0-30.0); ALBUMIN 3.8 GM/DL (3.2-5.2); ALT/SGPT 19 U/L (12-78); BILIRUBIN,DIRECT < 0.1 MG/DL (0.0-0.2); BILIRUBIN,TOTAL 0.3 MG/DL (0.2-1.0); BLOOD UREA NITROGEN 43 MG/DL (7-18); CALCIUM LEVEL 9.1 MG/DL (8.8-10.2); CARBON DIOXIDE LEVEL 32 MEQ/L (21-32); CHLORIDE LEVEL 101 MEQ/L (98-107); CPK CREATINE PHOSPHOKINASE 93 U/L (26-192); CREATININE FOR GFR 7.86 MG/DL (0.55-1.30); GLOMERULAR FILTRATION RATE 6.5 (>39); GLUCOSE, FASTING 178 MG/DL (70-100); MB/CK RELATIVE INDEX 2.47 (< OR =4); POTASSIUM SERUM 5.4 MEQ/L (3.5-5.1); SALICYLATE LEVEL < 1.7 MG/DL (5.0-30.0); SODIUM LEVEL 139 MEQ/L (136-145); TOTAL PROTEIN 7.1 GM/DL (6.4-8.2); TROPONIN I 0.04 NG/ML (< 0.10)
--- NOTE | 2018-07-03 14:47 | REP ---
TWO-VIEW CHEST: Two views of the chest are performed and compared to multiple prior studies dating back to 11/24/2016. There is chronic bibasilar fibroatelectasis which appears stable. There is mild cardiomegaly. There is no definite superimposed acute infiltrate. There is a calcified granuloma seen in the right upper lobe, which is stable. Mediastinal silhouette is unchanged. Multiple sternal wires and mediastinal clips are present. There are degenerative changes of the spine. IMPRESSION: Stable chronic changes. No definite superimposed acute process. Electronically Signed by Bebeto Tripp MD 07/04/2018 03:28 P
--- NOTE | 2018-07-03 15:17 | REP ---
CT lumbar spine with IV contrast: History: Rule out abscess. Comparison CT imaging is sn abdomen study from April 18, 2017. CT contrast dose: 100 ml of intravenous Isovue 370. CT findings: In the interval since the April 18, [address], the patient has undergone extensive laminectomy L3. L4 and partial laminectomy at L2 and at L5 . There is fairly extensive granulation tissue and fibrosis in the involved dorsal extra spinal soft tissues. I do not see an extra spinal or an epidural abscess. Advanced degenerative disc disease with vacuum phenomenon persists at L3-4 and L4-5. Posterior osteophytic ridging is seen at these two levels as before. No malalignment is seen. Axial images show evidence of central canal stenosis at L4-5 with removal of the left portion of the lamina. At L3-4, a more extensive laminectomy is visible. There is diffuse disc bulging. At L2-3, laminectomy is performed. No paravertebral abscess is seen. No bony destructive or erosive changes seen. There are reactive marrow sclerotic changes and subcortical cystic changes, but these are unchanged from the preoperative study at L3-4 and to a lesser extent L4-5. Impression: Extensive laminectomy L2 through L5. There is no evidence of paraspinal or intraspinal abscess. There is some persistent central canal stenosis evident at L4-5. Degenerative disc disease is seen most prominently at L3-4 and L4-5 unchanged from April 18, 2017. Electronically Signed by Quirino Moreno MD 07/03/2018 10:31 P
[2018-07-03 15:42] VITALS: BP 198/93
--- NOTE | 2018-07-03 19:43 | ECGEPIP ---
Stationary ECG Study [facility] - ED Test Date: 2018-07-03 Pat Name: RONNIE BRAN Department: Room: - Gender: F Cra Officer: ct : 1945 Requested By: NADINE SALGADO Order Number: [id number] Reading MD: Gallito Hernández Measurements Intervals [place] Rate: 85 P: 61 MS: 177 QRS: 1 QRSD: 89 T: 107 QT: 389 QTc: 465 Interpretive Statements SINUS RHYTHM POSSIBLE LEFT ATRIAL ENLARGEMENT POSSIBLE ANTERIOR MYOCARDIAL INFARCTION, OF INDETERMINATE AGE Nonspecific ST-T wave abnormalities Borderline QTc interval Similar to tracing done 05-11-18 but with shorter QTc interval Electronically Signed On 07-03-2018 19:43:09 EDT by Gallito Hernández
== END 2018-07-03 15:55 | disposition home or self-care (01) ==
LOC: M ED 11:54
DX: M54.9 Dorsalgia, unspecified (principal); E11.9 Type 2 diabetes mellitus without complications; I10 Essential (primary) hypertension; I51.9 Heart disease, unspecified; M51.36 Other intervertebral disc degeneration, lumbar region; Z79.82 Long term (current) use of aspirin; Z79.4 Long term (current) use of insulin; Z79.899 Other long term (current) drug therapy; Z88.8 Allergy status to other drugs, medicaments and biological substances
CPT/HCPCS: 36415; 71046; 72132; 80048; 80076; 82550; 82553; 84443; 84484; 85025; 93005; 93041; 94760; 99285; G0480; Q9967

== ENCOUNTER 2018-07-10 07:32 | Day surgery (SDC) | payer MEDICARE, BC ==
[~2018-07-10] VITALS: Ht 165.1 cm; Wt 65.3 kg
[~2018-07-10 07:32] MED LIST changes: +NS 1,000 ML IV ONE; +SEVE800T3 PO
[2018-07-10] MEDS ORDERED: LIDOCAINE 2% INJ 100 MG/5 ML SDV (FOR ANES.) As Ordered ONE (09:19)
[2018-07-10] MEDS ORDERED: PROPOFOL 200 MG/20 ML VIAL As Ordered ONE ×3 (09:19→09:56)
--- NOTE | 2018-07-10 09:42 | ROOR ---
Patient Name: Bree Acosta Procedure Date: 07/10/2018 9:24 AM Date of : 1945 Age: 73 Room: [facility] Gender: Female Note Status: Finalized Procedure: Upper Endoscopy + Biopsies Indications: Epigastric abdominal pain, Epigastric abdominal distress, Exclusion of peptic ulcer Providers: Ravindra Brady MD Referring MD: Ravindra LANCE MD Requesting Provider: Medicines: Monitored Anesthesia Care Complications: No immediate complications. Procedure: Pre-Anesthesia Assessment: - The heart rate, respiratory rate, oxygen saturations, blood pressure, adequacy of pulmonary ventilation, and response to care were monitored throughout the procedure. The Endoscope was introduced through the mouth, and advanced to the second part of duodenum. The upper GI endoscopy was accomplished without difficulty. The patient tolerated the procedure well. Findings: The Z-line was regular and was found 40 cm from the incisors. Localized mild inflammation characterized by congestion (edema), erosions, erythema and aphthous ulcerations was found in the gastric antrum. Biopsies were taken with a cold forceps for Helicobacter pylori testing. The exam of the duodenum was otherwise normal. Impression: - Z-line regular, 40 cm from the incisors. - Mucosal changes suspicious for gastritis. Biopsied. - The examination was otherwise normal. Recommendation: - Patient has a contact number available for emergencies. The signs and symptoms of potential delayed complications were discussed with the patient. Return to normal activities tomorrow. Written discharge instructions were provided to the patient. - Resume previous diet. - Discharge patient to home. - Continue present medications. - Await pathology results. - Telephone GI clinic for pathology results in 1 week. - Return to referring physician. - Check Portal Online for Path Results.([email or web address]) - The findings and recommendations were discussed with the patient's family. Ravindra Brady MD Ravindra Brady MD 07/10/2018 9:42:01 AM Electronically signed by Ravindra Brady MD Number of Addenda: 0 Note Initiated On: 07/10/2018 9:24 AM Estimated Blood Loss: Estimated blood loss: none.
--- NOTE | 2018-07-10 10:07 | ROOR ---
Patient Name: Bree Acosta Procedure Date: 07/10/2018 9:25 AM Date of : 1945 Age: 73 Room: [facility] Gender: Female Note Status: Finalized Procedure: Total Colonoscopy to Cecum + Cold Snare Polypectomy + Hemoclips Indications: Abnormal CT of the GI tract Providers: Ravindra Brady MD Referring MD: Ravindra ALNCE MD Requesting Provider: Medicines: Monitored Anesthesia Care Complications: No immediate complications. Procedure: Pre-Anesthesia Assessment: - The heart rate, respiratory rate, oxygen saturations, blood pressure, adequacy of pulmonary ventilation, and response to care were monitored throughout the procedure. The Colonoscope was introduced through the anus and advanced to the cecum, identified by appendiceal orifice and ileocecal valve. The colonoscopy was performed without difficulty. The patient tolerated the procedure well. The quality of the bowel preparation was excellent. Findings: The perianal and digital rectal examinations were normal. Non-bleeding internal hemorrhoids were found during retroflexion. The hemorrhoids were small and Grade I (internal hemorrhoids that do not prolapse). Multiple small and large-mouthed diverticula were found in the recto-sigmoid colon, sigmoid colon and descending colon. A large polyp was found in the cecum. The polyp was semi-pedunculated. The polyp was removed with a cold snare. Resection and retrieval were complete. To prevent bleeding after the polypectomy, one hemostatic clip was successfully placed (MR conditional). There was no bleeding at the end of the procedure. The exam was otherwise without abnormality on direct and retroflexion views. Impression: - Non-bleeding internal hemorrhoids. - Diverticulosis in the recto-sigmoid colon, in the sigmoid colon and in the descending colon. - One large polyp in the cecum, removed with a cold snare. Resected and retrieved. Clip (MR conditional) was placed. - The examination was otherwise normal on direct and retroflexion views. - The exam was otherwise normal to the cecum. Recommendation: - Patient has a contact number available for emergencies. The signs and symptoms of potential delayed complications were discussed with the patient. Return to normal activities tomorrow. Written discharge instructions were provided to the patient. - Resume previous diet. - Discharge patient to home. - Resume Plavix (clopidogrel) at prior dose today. - Await pathology results. - Telephone GI clinic for pathology results in 1 week. - Repeat colonoscopy for symptoms only. - The findings and recommendations were discussed with the patient's family. Ravindra Brady MD Ravindra Brady MD 07/10/2018 10:07:25 AM Electronically signed by Ravindra Brady MD Number of Addenda: 0 Note Initiated On: 07/10/2018 9:25 AM Estimated Blood Loss: Estimated blood loss: none.
[2018-07-10 10:25] VITALS: BP 194/92
== END 2018-07-10 10:39 | disposition home or self-care (01) ==
LOC: M OPP 07:32
PROVIDERS: ATTEND Internal Medicine Gastroenterology
DX: K64.0 First degree hemorrhoids (principal); D12.0 Benign neoplasm of cecum; K57.30 Diverticulosis of large intestine without perforation or abscess without bleeding; R93.3 Abnormal findings on diagnostic imaging of other parts of digestive tract; K31.89 Other diseases of stomach and duodenum; R10.13 Epigastric pain; Z87.891 Personal history of nicotine dependence; Z79.891 Long term (current) use of opiate analgesic; Z79.899 Other long term (current) drug therapy

== ENCOUNTER 2018-07-20 14:17 | Inpatient (IN) | payer MEDICARE, BC ==
[~2018-07-20] VITALS: Ht 165.1 cm; Wt 65.7 kg
[~2018-07-20 14:17] MED LIST changes: -NS 1,000 ML IV ONE; -PRAV80TA2
[2018-07-20] MEDS ORDERED: MORPHINE 2 MG/ML 1ML SYRINGE (J2270) IV PRN (14:45)
[2018-07-20] MEDS ORDERED: ONDANSETRON 4MG/2ML VIAL (J2405) IV ONE (14:45)
[2018-07-20] MEDS ORDERED: ISOVUE-370 76% 100ML VIAL (Q9967) As Ordered ONE (15:15)
[2018-07-20 16:28] LABS: BASO % 0.4 % (0.0-1.0); EOS # 0.1 10^3/uL (0.0-0.50); EOS % 1.8 % (0.0-3.0); HEMOGLOBIN 12.3 g/dl (12.0-15.5); LYMPH # 0.9 10^3/uL (1.5-4.5); LYMPH % 16.6 % (24.0-44.0); MEAN CORPUSCULAR HEMOGLOBIN 27.6 pg (27.0-33.0); MEAN CORPUSCULAR VOLUME 92.1 fl (80.0-96.0); MONO # 0.6 10^3/uL (0.0-0.8); MONO % 11.3 % (0.0-5.0); NEUTROPHILS # 3.8 10^3/uL (1.8-7.7); NEUTROPHILS % 69.5 % (36.0-66.0); PLATELET COUNT, AUTOMATED 118 10^3/uL (150-450); RED BLOOD COUNT 4.45 10^6/uL (4.00-5.40); WHITE BLOOD COUNT 5.5 10^3/uL (4.0-10.0)
--- NOTE | 2018-07-20 18:21 | REP ---
Clinical: Acute headache. Comparison: 06/06/2017 . Findings: Age-related atrophy and microvascular ischemic changes are appreciated. The ventricles and sulci are symmetric. Tripp-white differentiation is maintained. There is no evidence for acute intracranial hemorrhage, mass/mass effect, pathology or infarction. No extra-axial fluid collection. Calvarium is intact. Paranasal sinuses and mastoid air cells are clear. Impression: Age related atrophy and microvascular ischemic changes. No acute intracranial hemorrhage, infarction, or mass/mass effect. Electronically Signed by Joni Dumont MD 07/20/2018 06:12 P
--- NOTE | 2018-07-20 18:24 | REP ---
Clinical: Shortness of breath. Technique: Axial contrast enhanced images from the thoracic inlet to the upper abdomen with multiplanar re-formations using pulmonary embolus technique. 100 ml Isovue 370 intravenous contrast material administered without complication. Findings: Satisfactory enhancement of the pulmonary vasculature is achieved and no filling defects are identified to suggest pulmonary embolus. Moderate left and small right pleural effusions are appreciated along with prominent pulmonary vasculature, cephalization, and lower lobe opacities. Associated cardiomegaly is appreciated and findings likely represent elements of CHF/pulmonary edema. No pericardial effusion. Thoracic aorta demonstrates atherosclerotic changes without aneurysm or dissection. No obvious adenopathy. Musculoskeletal structures demonstrate degenerative changes and prior sternotomy. Impression: 1. No evidence for pulmonary embolus. 2. Findings described above most compatible with pulmonary edema. Differential diagnosis may include multifocal pneumonia with effusions. Electronically Signed by Joni Dumont MD 07/20/2018 06:15 P
--- NOTE | 2018-07-20 18:27 | REP ---
Clinical: Abdominal pain. Technique: Axial contrast enhanced images from the lung bases to the pubic symphysis using 100 ml Isovue 370 intravenous contrast material with coronal and sagittal re-formations. Findings: Lung bases demonstrate cardiomegaly with moderate left pleural effusion and bibasilar infiltrates suggesting pulmonary vascular congestion/edema with underlying chronic bronchiectasis and mild fibrosis. Liver, spleen, pancreas, gallbladder, and bilateral adrenal glands are normal. These demonstrate symmetric atrophy. The enteric system demonstrates moderate fluid-filled loops of small large bowel raising the possibility of mild enterocolitis. No obstruction. Pelvis demonstrates normal bladder and evidence for prior hysterectomy. No ascites. No free air. No adenopathy. Atherosclerotic changes to the aorta and vasculature noted without aneurysm. Musculoskeletal structures demonstrate osteopenia and degenerative changes. Impression: 1. Findings at the lung bases suggest pulmonary edema. 2. Fluid-filled loops of small large bowel raise the possibility of acute enterocolitis and should be correlated clinically. 3. No further acute abdominopelvic pathology appreciated. Electronically Signed by Joni Dumont MD 07/20/2018 06:19 P
[2018-07-20 19:20] LABS: INR 0.94; PROTHROMBIN TIME 12.7 SECONDS (12.1-14.4)
[2018-07-20 19:21] LABS: PARTIAL THROMBOPLASTIN TIME 38.8 SECONDS (25.4-37.6)
[2018-07-20 19:54] LABS: ALBUMIN 3.4 GM/DL (3.2-5.2); ALT/SGPT 35 U/L (12-78); AMYLASE 166 U/L (25-115); BILIRUBIN,DIRECT < 0.1 MG/DL (0.0-0.2); BILIRUBIN,TOTAL 0.3 MG/DL (0.2-1.0); BLOOD UREA NITROGEN 32 MG/DL (7-18); CALCIUM LEVEL 8.4 MG/DL (8.8-10.2); CARBON DIOXIDE LEVEL 30 MEQ/L (21-32); CHLORIDE LEVEL 99 MEQ/L (98-107); CPK CREATINE PHOSPHOKINASE 113 U/L (26-192); CREATININE FOR GFR 6.12 MG/DL (0.55-1.30); GLOMERULAR FILTRATION RATE 8.7 (>39); GLUCOSE, FASTING 137 MG/DL (70-100); LIPASE 522 U/L (73-393); MB/CK RELATIVE INDEX 2.39 (< OR =4); POTASSIUM SERUM 3.9 MEQ/L (3.5-5.1); SODIUM LEVEL 137 MEQ/L (136-145); TOTAL PROTEIN 7.1 GM/DL (6.4-8.2); TROPONIN I 0.05 NG/ML (< 0.10)
[2018-07-20] MEDS ORDERED: LIDO2.5C15 TOP (19:56)
[2018-07-20] MEDS ORDERED: BENGGEL2 TOP (19:56)
[2018-07-20] MEDS ORDERED: ASPI-164 PO (19:58)
[2018-07-20] MEDS ORDERED: **hydrALAZINE** 50 MG TAB PO ONE (20:30)
[2018-07-20] MEDS ORDERED: ONDANSETRON 4MG/2ML VIAL (J2405) IV PRN (20:30)
--- NOTE | 2018-07-20 20:59 | ECGEPIP ---
[facility] - ED Test Date: 2018-07-20 Pat Name: RONNIE BRAN Department: Room: - Gender: Female [employer]: : 1945 Requested By: LIO Mcclellan Order Number: [id number] Reading MD: Juana Urias Measurements Intervals [place] Rate: 87 P: 44 PA: 152 QRS: QRSD: 98 T: 107 QT: 385 QTc: 465 Interpretive Statements SINUS RHYTHM POSSIBLE LEFT ATRIAL ENLARGEMENT POSSIBLE ANTERIOR MYOCARDIAL INFARCTION, OF INDETERMINATE AGE INFERIOR MYOCARDIAL INFARCTION, PROBABLY OLD SIMILAR 07/03/18 Electronically Signed on 07-20-2018 20:59:27 EDT by Juana Urias
[2018-07-20] MEDS: HEPARIN SOD (PORCINE) 5000 UNITS/ML VIAL SC SCH (21:00)
[2018-07-20] MEDS ORDERED: CARVedilol 6.25 MG TAB PO SCH (21:00)
--- NOTE | 2018-07-20 21:08 | HPEPDOC ---
General Date of Admission 07/20/18 Date of Service: July 20, 2018 Chief Complaint The patient is a 73-year-old female admitted with a reason for visit of Blood Pressure Issue. 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 She first started having upper abdominal pain in the middle of the night which woke her up from sleep . She thought she had some indigestion took some peptobismol and went back to sleep. This morning at around 7:45 am she again started having abdominal pain which was crampy located in the periumbilical area then spread all over the abdomen along with nausea then started having diarrhea which was liquid black in color. She had diarrhea innumerable times in the morning then went for her HD where she continued to have abdominal pain and nausea and then had diarrhea so had to be taken off the machine after about 90 mons into treatment. She was instructed by the nurses in the HD unit to come to the ED for evaluation. In the ED she continues to have diarrhea 3 times continues to have abdominal pain and nausea. SHe also complains of headache and feeling weak. CT abdomen showed. Fluid-filled loops of small large bowel raise the possibility of acute enterocolitis. Home Medications Scheduled Aspirin (Aspirin EC) 81 Mg Tablet.dr, 81 MG PO QHS, (Reported) Carvedilol (Carvedilol) 6.25 Mg Tab, 6.25 MG PO QHS, (Reported) Clopidogrel Bisulfate (Clopidogrel) 75 Mg Tab, 75 MG PO QHS, (Reported) Hydralazine HCl (Hydralazine HCl) 25 Mg Tab, 25 MG PO QHS, (Reported) Multivitamins (Thera M Plus Tablet) 1 Tab Tab, 1 TAB PO QHS, (Reported) Pravastatin Sodium (Pravastatin Sodium) 80 Mg Tablet, 80 MG PO QHS, (Reported) Sevelamer Carbonate (Sevelamer Carbonate) 800 Mg Tablet, 1,600 MG PO BID, (Reported) Ubidecarenone/Vit E Acet (Co Q-10 100 mg Softgel) 100 Mg Cap, 100 MG PO QHS, (Reported) Scheduled PRN Cyclobenzaprine HCl (Cyclobenzaprine HCl) 5 Mg Tab, 5 MG PO Q6H PRN for MUSCLE SPASMS, (Reported) Docusate Sodium (Colace) 100 Mg Cap, 100 MG PO DAILY PRN for CONSTIPATION, (Reported) Insulin Glargine (Lantus) 100 Unit/Ml Inj, 10 UNIT INJ QHS PRN for HIGH BLOOD SUGAR, (Reported) Lidocaine/Prilocaine (Lidocaine-Prilocaine Cream) 2.5%/2.5% Cream..g., 1 DOSE TOP DAILY PRN for PAIN, (Reported) APPLIES TO [place] Menthol (Bengay) 5% Gel..gram., 1 APLCT TOP QHS PRN for PAIN, (Reported) Tramadol HCl (Tramadol HCl) 50 Mg Tab, 100 MG PO Q6H PRN for PAIN, (Reported) Allergies Coded Allergies: [id number] Reductase Inhibitor (Verified Allergy, Unknown, PAIN, 07/20/18) PT SAYS SHE CAN TAKE PRAVASTATIN Past Medical History Medical History Combined systolic and diastolic heart failure Ischemic cardiomyopathy Hypertension ESRD on HD Anemia of Chronic disease CAD s/p CABG Bilateral Bronchiectasis with b/l calcified granulomas with mediastinal lymphadenopathy and chronic fibrosis and infiltrates of the lower lobes left > right stable since 2013 Diabetes Chronic back pain Dyslipidemia H/o CVA with residual right hemiparesis and slurred speech Spinal stenosis with lumber laminectomy Sleep disordered breathing in nocturnal pulse oximetry Surgical History Status post left upper arm arteriovenous fistula creation. Status post coronary artery bypass grafting. Status post lumbar spinal laminectomy at L2, L3, L4 at [facility] in Jan 2018 Family History Mother: CHF Father: heart disease Siblings: None Children: 4 Alive, well, 1 due to SIDs, 1 due to sarcoidosis Social History * Smoker: Denies Alcohol: Denies Drugs: denies A-FIB/CHADSVASC A-FIB History Current/History of A-Fib/PAF?: No Review of Systems Constitutional: Reports: Weakness; Denies: Chills, Fever, Night Sweats Eyes: Denies: Pain, Vision change ENT: Reports: Head Aches; Denies: Ear Pain, Dysphagia Skin: Denies: Rash, Lesions, Breakdown Pulmonary: Denies: Dyspnea, Cough Cardiovascular: Reports: Lt Headedness; Denies: Chest Pain, Palpitations, Orthopnea, Paroxysmal Noc. Dyspnea Gastrointestinal: Reports: Nausea, Abdominal Pain, Diarrhea Hematologic: Denies: Bruising, Bleeding Excessively Musculoskeletal: Denies: Neck Pain, Back Pain, Joint Pain Psych: Reports: Mood Normal; Denies: Depression, Memory Issues Physical Examination General Exam: Positive: Alert, Cooperative, Mild Distress Eye Exam: Positive: PERRLA, Conjunctiva & lids normal, EOMI; Negative: Sclera icteric ENT Exam: Positive: Atraumatic, Mucous membr. moist/pink, Pharynx Normal Neck Exam: Positive: Supple; Negative: JVD, thyromegaly Chest Exam: Positive: Clear to auscultation, Normal air movement Heart Exam: Positive: Rate Normal, Regular Rhythm, Normal S1, Normal S2; Negative: Murmurs, Rubs Telemetry: Positive: No significant arrhythmia Abdomen Exam: Positive: BS Hyperactive, Soft, Tenderness (mostly in the center) Extremity Exam: Positive: Normal pulses; Negative: Clubbing, Cyanosis, Edema Skin Exam: Positive: Nl turgor and temperature; Negative: Breakdown, Lesion Vital Signs Vital Signs Date Time Temp Pulse Resp B/P (MAP) Pulse Ox O2 Delivery O2 Flow Rate FiO2 07/20/18 18:59 20 175/77 (109) 07/20/18 18:49 84 07/20/18 18:48 96 07/20/18 14:27 Room Air 07/20/18 14:18 97.8 Laboratory Data Labs 24H Laboratory Tests 2 07/20/18 16:17: Immature Granulocyte % (Auto) 0.4, White Blood Count 5.5, Red Blood Count 4.45, Hemoglobin 12.3, Hematocrit 41.0, Mean Corpuscular Volume 92.1, Mean Corpuscular Hemoglobin 27.6, Mean Corpuscular Hemoglobin Concent 30.0L, Red Cell Distribution Width 18.2H, Platelet Count 118L, Neutrophils (%) (Auto) 69.5H, Lymphocytes (%) (Auto) 16.6L, Monocytes (%) (Auto) 11.3H, Eosinophils (%) (Auto) 1.8, Basophils (%) (Auto) 0.4, Neutrophils # (Auto) 3.8, Lymphocytes # (Auto) 0.9L, Monocytes # (Auto) 0.6, Eosinophils # (Auto) 0.1, Basophils # (Auto) 0.0, Nucleated Red Blood Cells % (auto) 0.0 07/20/18 18:45: Prothrombin Time 12.7, Prothromb Time International Ratio 0.94, Activated Partial Thromboplast Time 38.8H CBC/BMP Laboratory Tests 07/20/18 16:17 Red Blood Count 4.45, Mean Corpuscular Volume 92.1, Mean Corpuscular Hemoglobin 27.6, Mean Corpuscular Hemoglobin Concent 30.0 L, Red Cell Distribution Width 18.2 H, Neutrophils (%) (Auto) 69.5 H, Lymphocytes (%) (Auto) 16.6 L, Monocytes (%) (Auto) 11.3 H, Eosinophils (%) (Auto) 1.8, Basophils (%) (Auto) 0.4, Neutrophils # (Auto) 3.8, Lymphocytes # (Auto) 0.9 L, Monocytes # (Auto) 0.6, Eosinophils # (Auto) 0.1, Basophils # (Auto) 0.0 Microbiology Microbiology 07/20/18 Blood Culture, Received Pending 07/20/18 Blood Culture, Received Pending Assessment/Plan 73-year-old female with past medical history of end-stage renal disease on hemodialysis Mon, Mon, Monday, systolic and diastolic congestive heart failure, hypertension, diabetes, CAD, dyslipidemia, 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 She first started having upper abdominal pain in the middle of the night which woke her up from sleep . She thought she had some indigestion took some peptobismol and went back to sleep. This morning at around 7:45 am she again started having abdominal pain which was crampy located in the periumbilical area then spread all over the abdomen along with nausea then started having diarrhea which was liquid black in color. She had diarrhea innumerable times in the morning then went for her HD where she continued to have abdominal pain and nausea and then had diarrhea so had to be taken off the machine after about 90 mons into treatment. She was instructed by the nurses in the HD unit to come to the ED for evaluation. In the ED she continues to have diarrhea 3 times continues to have abdominal pain and nausea. SHe also complains of headache and feeling weak. CT abdomen showed. Fluid-filled loops of small large bowel raise the possibility of acute enterocolitis. Enterocolitis most probably viral will give gentle hydration. GI panel zofran and pantoprazole Gastritis as seen in EGD 2 weeks ago will give pantoprazole and sucralfate. ESRD Nephrology contacted will dialyze tomorrow. Systolic and diastolic CHF clinically looks compensated. CT angio of chest with signs of mild fluid overload which may be chronic could not finish HD today. will have HD tomorrow. Now loosing fluid due to diarrhea. Hypertension with hypertensive urgency Bp now uncontrolled due to abdominal pain will continue home meds except coreg will give 1 extra dose of hydralazine tonight aong with clonidine and labetalol Diabetes sugars well controlled and patient does not have much appetite. She says wont be having dinner will hold insulin CAD continue ASA, Plavix, betablocker and statin. DVT prophylaxis ordered. Plan / VTE VTE Prophylaxis Ordered?: Yes ERIKA LAWSON MD July 20, 2018 19:34
[2018-07-20] MEDS ORDERED: cloNIDine 0.1 MG TAB PO ONE (22:00)
[2018-07-20] MEDS ORDERED: LABETALOL 100 MG TAB PO ONE (22:00)
[2018-07-20] MEDS: SUCRALFATE 1 GM TAB PO SCH (22:05)
[2018-07-20] MEDS: ASPIRIN 81 MG ENTERIC TAB PO SCH (22:05)
[2018-07-20] MEDS: CLOPIDOGREL 75 MG TAB PO SCH (22:06)
[2018-07-20 23:08] VITALS: BP 160/77
[2018-07-20] MEDS: PANTOPRAZOLE 40MG INJ (PROTONIX) (C9113) IV SCH (23:36)
[2018-07-20] MEDS: PRAVASTATIN 20 MG TAB PO SCH (23:36)
[2018-07-20] MEDS: MORPHINE 4 MG/ML 1ML VIAL/SYRINGE (J2270) IV PRN (23:46)
[2018-07-21 06:00] VITALS: BP 157/77
[2018-07-21] MEDS: PANTOPRAZOLE 40MG INJ (PROTONIX) (C9113) IV SCH (06:04)
[2018-07-21] MEDS: HEPARIN SOD (PORCINE) 5000 UNITS/ML VIAL SC SCH ×2 (06:05→21:00)
[2018-07-21] MEDS: SUCRALFATE 1 GM TAB PO SCH ×2 (06:05→21:43)
[2018-07-21 06:33] LABS: BASO % 0.8 % (0.0-1.0); EOS # 0.1 10^3/uL (0.0-0.50); EOS % 1.9 % (0.0-3.0); HEMATOCRIT 37.7 % (36.0-47.0); HEMOGLOBIN 11.1 g/dl (12.0-15.5); LYMPH # 1.1 10^3/uL (1.5-4.5); LYMPH % 20.9 % (24.0-44.0); MEAN CORPUSCULAR HGB CONC 29.4 g/dl (32.0-36.5); MEAN CORPUSCULAR VOLUME 91.7 fl (80.0-96.0); MONO # 0.4 10^3/uL (0.0-0.8); MONO % 8.6 % (0.0-5.0); NEUTROPHILS # 3.5 10^3/uL (1.8-7.7); NEUTROPHILS % 67.6 % (36.0-66.0); PLATELET COUNT, AUTOMATED 125 10^3/uL (150-450); RED BLOOD COUNT 4.11 10^6/uL (4.00-5.40); WHITE BLOOD COUNT 5.1 10^3/uL (4.0-10.0)
[2018-07-21 06:57] LABS: CALCIUM LEVEL 8.4 MG/DL (8.8-10.2); CREATININE FOR GFR 7.14 MG/DL (0.55-1.30); GLOMERULAR FILTRATION RATE 7.3 (>39); POTASSIUM SERUM 3.4 MEQ/L (3.5-5.1)
[2018-07-21] MEDS: HumaLOG INSULIN (NovoLOG) PER UNIT SC SCH ×4 (07:01→21:00)
[2018-07-21] MEDS: MORPHINE 4 MG/ML 1ML VIAL/SYRINGE (J2270) IV PRN (09:41)
--- NOTE | 2018-07-21 09:59 | IPNPDOC ---
Date Seen The patient was seen on 07/21/18. Progress Note SUBJECTIVE: 73-year-old female with past medical history of end-stage renal disease on hemodialysis Mon, Mon, Monday, systolic and diastolic congestive heart failure, hypertension, diabetes, CAD, dyslipidemia, CVA with residual right paresis , spinal stenosis with lumbar laminectomy in jan 2018 presents with sudden onset for abdominal pain with N/V/abdominal pain and diarrhea symptoms resolved since last night no events overnight OBJECTIVE PHYSICAL EXAMINATION: VITAL SIGNS: Please see below. GENERAL: AA Ox3, comfortable HEENT: atraumatic CARDIOVASCULAR: S1 S2 regular no murmur RESPIRATORY: clear no rales no wheezing ABDOMINAL: soft BS +, non tender EXTREMITIES: no edema NEUROLOGICAL: non focal PSYCHOLOGICAL: no acute psychosis 1. Acute abdominal pain CT showed possible Enterocolitis, likely viral GI panel negative her symptoms resolving and will continue to monitor 2. Gastritis, as seen in EGD 2 weeks ago will give pantoprazole and sucralfate. 3. ESRD, Nephrology contacted will dialyze tomorrow. 4. Systolic and diastolic CHF, ccompensated. 5. Hypertension, with hypertensive urgency, Her BP up to >200 yesterday now better control 6. DM T2, will continue insulin 7. CAD, continue ASA, Plavix, BB and statin 8. Plans to discharge home tomorrow if her symptoms resolves VS, I&O, 24H, Fishbone Vital Signs/I&O Vital Signs Date Time Temp Pulse Resp B/P (MAP) Pulse Ox O2 Delivery O2 Flow Rate FiO2 07/21/18 09:41 18 07/21/18 06:00 97.8 74 157/77 (103) 99 2.0 07/20/18 22:54 Room Air I&O- Last 24 Hours up to 6 AM 07/21/18 06:00 Intake Total 0 ml Output Total 0 ml Balance 0 ml Laboratory Data 24H LABS Laboratory Tests 2 07/20/18 16:17: Immature Granulocyte % (Auto) 0.4, White Blood Count 5.5, Red Blood Count 4.45, Hemoglobin 12.3, Hematocrit 41.0, Mean Corpuscular Volume 92.1, Mean Corpuscular Hemoglobin 27.6, Mean Corpuscular Hemoglobin Concent 30.0L, Red Cell Distribution Width 18.2H, Platelet Count 118L, Neutrophils (%) (Auto) 69.5H, Lymphocytes (%) (Auto) 16.6L, Monocytes (%) (Auto) 11.3H, Eosinophils (%) (Auto) 1.8, Basophils (%) (Auto) 0.4, Neutrophils # (Auto) 3.8, Lymphocytes # (Auto) 0.9L, Monocytes # (Auto) 0.6, Eosinophils # (Auto) 0.1, Basophils # (Auto) 0.0, Nucleated Red Blood Cells % (auto) 0.0 07/20/18 18:45: Prothrombin Time 12.7, Prothromb Time International Ratio 0.94, Activated Par tial Thromboplast Time 38.8H, Anion Gap 8, Glomerular Filtration Rate 8.7L, Lactic Acid Level 0.8, Calcium Level 8.4L, Aspartate Amino Transf (AST/SGOT) 34, Alanine Aminotransferase (ALT/SGPT) 35, Alkaline Phosphatase 103, Total Bilirubin 0.3, Direct Bilirubin < 0.1, Total Creatine Kinase 113, Creatine Kinase MB 3.0, Creatine Kinase MB Relative Index 2.39, Troponin I 0.05, Total Protein 7.1, Albumin 3.4, Albumin/Globulin Ratio 0.92L, Amylase Level 166H, Lipase 522H 07/21/18 05:48: Immature Granulocyte % (Auto) 0.2, White Blood Count 5.1, Red Blood Count 4.11, Hemoglobin 11.1L, Hematocrit 37.7, Mean Corpuscular Volume 91.7, Mean Corpuscular Hemoglobin 27.0, Mean Corpuscular Hemoglobin Concent 29.4L, Red Cell Distribution Width 18.3H, Platelet Count 125L, Neutrophils (%) (Auto) 67.6H, Lymphocytes (%) (Auto) 20.9L, Monocytes (%) (Auto) 8.6H, Eosinophils (%) (Auto) 1.9, Basophils (%) (Auto) 0.8, Neutrophils # (Auto) 3.5, Lymphocytes # (Auto) 1.1L, Monocytes # (Auto) 0.4, Eosinophils # (Auto) 0.1, Basophils # (Auto) 0.0, Nucleated Red Blood Cells % (auto) 0.0, Anion Gap 8, Glomerular Filtration Rate 7.3L, Calcium Level 8.4L, Blood Urea Nitrogen 35H, Creatinine 7.14H, Sodium Level 137, Potassium Level 3.4L, Chloride Level 97L, Carbon Dioxide Level 32 CBC/BMP Laboratory Tests 07/20/18 16:17 Red Blood Count 4.45, Mean Corpuscular Volume 92.1, Mean Corpuscular Hemoglobin 27.6, Mean Corpuscular Hemoglobin Concent 30.0 L, Red Cell Distribution Width 18.2 H, Neutrophils (%) (Auto) 69.5 H, Lymphocytes (%) (Auto) 16.6 L, Monocytes (%) (Auto) 11.3 H, Eosinophils (%) (Auto) 1.8, Basophils (%) (Auto) 0.4, Neutrophils # (Auto) 3.8, Lymphocytes # (Auto) 0.9 L, Monocytes # (Auto) 0.6, Eosinophils # (Auto) 0.1, Basophils # (Auto) 0.0 07/20/18 18:45 07/21/18 05:48 Red Blood Count 4.11, Mean Corpuscular Volume 91.7, Mean Corpuscular Hemoglobin 27.0, Mean Corpuscular Hemoglobin Concent 29.4 L, Red Cell Distribution Width 18 .3 H, Neutrophils (%) (Auto) 67.6 H, Lymphocytes (%) (Auto) 20.9 L, Monocytes (%) (Auto) 8.6 H, Eosinophils (%) (Auto) 1.9, Basophils (%) (Auto) 0.8, Neutrophils # (Auto) 3.5, Lymphocytes # (Auto) 1.1 L, Monocytes # (Auto) 0.4, Eosinophils # (Auto) 0.1, Basophils # (Auto) 0.0, Calcium Level 8.4 L Microbiology Microbiology 07/20/18 Blood Culture, Received Pending 07/20/18 Blood Culture, Received Pending 07/20/18 Gastrointestinal Tract Panel (PCR) - Final, Complete FORREST MUNGUIA MD July 21, 2018 09:59
[2018-07-21] MEDS ORDERED: traMADol 50 MG TAB PO PRN (10:00)
--- NOTE | 2018-07-21 13:44 | CR.PDOC ---
General Date of Consultation: July 21, 2018 Referring Provider: ERIKA LAWSON MD Primary Care Physician None Attending Physician: LIDIA KIRAN MD Consultation NEPHROLOGY CONSULT: REASON FOR CONSULTATION/CHIEF COMPLAINT: ESRD. HISTORY OF PRESENT ILLNESS: 73 yo F, well known to Nephrology service, with PMH significant for ESRD on HD on MWF schedule, and other PMH listed below, presented to [facility] ED after being sent there by the outpatient dialysis center on 07/20/18, after receiving about 90 minutes of dialysis due to developing abdominal pain, nausea, and diarrhea. She had to be taken off of dialysis, and sent to the ED by nurses. In the ED, still continued to have diarrhea, abdominal pain, nausea. She also c/o feeling weak and having a headache. About 1 night ago, she started having upper abdominal pain that arose her from sleep. Took some peptobismol thinking she was having indigestion. Later in the morning of 07/20, she began having cramping abdominal pain in periumbilical region which radiated to whole abdomen, began having nausea, and watery black colored diarrhea. Had multiple episodes of diarrhea in the morning of 07/20. Went to dialysis, and as mentioned above, was sent to the ED for the above symptoms. Today, she reports that her diarrhea stopped on its own at around 10:30 PM last night. She also had BPs >200 systolic yesterday and had Hypertensive Urgency that has now resolved. Reports she is coughing up phlegm. Denies any other acute complaints. Denies fevers, chills, chest pain, SOB, nausea, vomiting, abdominal pain today, diarrhea today. Nephrology service was consulted for hemodialysis management of patient's ESRD. ALLERGIES: Statin medications HOME MEDICATIONS: Aspirin 81 mg PO QHS Carvedilol 6.25 mg PO QHS Clopidogrel Bisulfate 75 mg PO QHS Cyclobenzaprine HCl 5 mg PO q6h PRN muscle spasms Docusate sodium 100 mg PO daily PRN constipation Hydralazine HCl 25 mg PO QHS Insulin Glargine 100 Unit/Ml Inj 10 units Inj QHS PRN high blood sugar Lidocaine/Prilocaine 2.5%/2.5% Cream 1 Dose topically daily PRN pain; applies to port area Menthol 5% Gel 1 Applications TOP QHS PRN pain Multivitamins 1 Tab PO QHS Pravastatin Sodium 80 mg PO QHS Sevelamer Carbonate 1600 mg PO BID Tramadol HCl 100 mg PO Q6H PRN pain Ubidecarenone/Vitamin E Acet 100 mg PO QHS PAST MEDICAL HISTORY: ESRD on HD MWF schedule Combined Systolic & Diastolic CHF, LVEF ~35%. HTN CVA with residual slurred speech. Type 2 DM CAD s/p CABG HLD Diabetic Neuropathy Chronic Back Pain Spinal Stenosis PAST SURGICAL HISTORY: S/p LUE AV Fistula Creation S/p CABG S/p Lumbar spinal laminectomy at [facility] in January 2018. FAMILY HISTORY: No significant family hx of ESRD requiring HD. SOCIAL HISTORY: Lives at home. Denies smoking. No illicit drug use. Denies EtOH abuse. REVIEW OF SYSTEMS: CONSTITUTIONAL: Denies fevers, chills, night sweats. HEENT: Denies headache. Admits to a cough productive of phlegm. CARDIOVASCULAR: Denies chest pain, palpitations. RESPIRATORY: Denies SOB. MUSCULOSKELETAL: Denies muscle aches. GENITOURINARY: Denies dysuria, hematuria. GASTROINTESTINAL: Denies any abdominal pain today. Denies nausea, vomiting, diarrhea today. SKIN: Denies skin rashes/lesions. NEUROLOGICAL: Denies headache, dizziness. PSYCHIATRIC: Denies anxious/depressed mood. ENDOCRINE: Denies fatigue, heat/cold intolerance. HEMATOLOGIC/LYMPHATIC: Denies easy bruising/bleeding anywhere. Denies any new lumps or bumps she has noticed. ALLERGIC/IMMUNOLOGIC: Denies any allergies. Denies runny, nose, sore throat. PHYSICAL EXAMINATION: VITAL SIGNS: T 97.8 P 74 RR 18 BP 157/77 Pulse Ox 99% on 2 liters via NC GENERAL APPEARANCE: AAO x 3, elderly female sitting on bed, speaking full sentences, in NAD. Cooperative and pleasant. HEENT: NCAT, mild facial edema noted. RESPIRATORY: Clear to auscultation bilaterally. CARDIOVASCULAR: Normal S1S2, RRR, no murmurs. ABDOMEN: Soft, normoactive bowel sounds, nontender, nondistended. EXTREMITIES: no clubbing, cyanosis, or edema of bilateral lower extremities. (+ )RUE AV fistula present. NEUROLOGICAL: No focal neurologic deficits appreciated on inspection. Appro priately mentating. PSYCHIATRIC: Normal mood and affect. No signs of depression/anxiety. LABORATORY DATA: CBC: WBC 5.1, Hgb 11.1, MCV 91.7, RDW 18.3, Platelets 125. Coagulation Factors: PT 12.7, INR 0.94, and APPT 38.8. BMP: Na 137, K 3.4, Cl 97, CO2 32, Anion Gap 8, BUN 35, Cr 7.14, GFR 7.3, glu cose 79, Ca 8.4. Amylase: 166 Lipase: 522 Albumin: 3.4 MICROBIOLOGY: Blood cx x 2 pending. GI Panel: (-) IMAGING: CT Head w/o contrast: Age related atrophy and microvascular ischemic changes. No acute intracranial hemorrhage, infarction, or mass/mass effect. CT Abdomen/Pelvis with IV Contrast: Findings at lung bases suggesting pulmonary edema. Fluid-filled loops of small large bowel with possible acute enterocolitis and should be correlated clinically. No further acute abdominopelvic pathology appreciated. CT Angio Chest: No evidence for PE. Findings most compatible with pulmonary edema. DDx may include multifocal pneumonia with effusions. ASSESSMENT/PLAN: -ESRD on HD MWF schedule: Patient going for dialysis today with aim for 2000 mL to be removed. Only received about 90 minutes of dialysis at outpatient center yesterday and did not complete tx. In addition, due to contrast load yesterday for imaging studies, needs dialysis today. Will see how she tolerates this. -CKD, mineral bone disease: usually on renvela. Will adjust regimen as necessary. 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 In the past, has been on aranesp with HD. Will adjust regimen as necessary. Due to recent HTN, would likely hold aranesp for now. -Acute abdominal pain: Resolving and symptoms resolving. Possibly viral enterocolitis, gastritis, etc. Continue supportive care as per primary team. Monitor for complete resolution of symptoms. Was begun on sucralfate and PPI by primary team for gastritis. -Systolic and Diastolic CHF: Compensated. Patient not showing signs of severe f luid overload as of yet. -HTN with Hypertensive Urgency: Likely secondary to fluid overload and not being able to be fully dialyzed yesterday. Will optimize volume management. Status- post labetolol, clonidine, hydralazine, and coreg doses yesterday. Continue hydralazine 25 mg QHS at this point and continue to monitor BP. Unclear as to why coreg was discontinued as patient usually receives this at home. Will plan to adjust regimen as necessary. -Type 2 IDDM: Serum glucose 79 this AM and FS of 106. Continue ISS. Management as per primary team. -CAD s/p CABG: Continue aspirin, plavix, and pravastatin. Unsure why allergy to statins is listed. Thank Your for this Nephrology Consult and involving us in the care of this patient. We will be happy to follow the patient along with you while she is here. Vital Signs/I&O Vital Signs Date Time Temp Pulse Resp B/P (MAP) Pulse Ox O2 Delivery O2 Flow Rate FiO2 07/21/18 09:56 16 07/21/18 06:00 97.8 74 157/77 (103) 99 2.0 07/20/18 22:54 Room Air I&O- Last 24 Hours up to 6 AM 07/21/18 06:00 Intake Total 0 ml Output Total 0 ml Balance 0 ml Laboratory Data Labs 24H Laboratory Tests 2 07/20/18 16:17: Immature Granulocyte % (Auto) 0.4, White Blood Count 5.5, Red Blood Count 4.45, Hemoglobin 12.3, Hematocrit 41.0, Mean Corpuscular Volume 92.1, Mean Corpuscular Hemoglobin 27.6, Mean Corpuscular Hemoglobin Concent 30.0L, Red Cell Distribution Width 18.2H, Platelet Count 118L, Neutrophils (%) (Auto) 69.5H, Lymphocytes (%) (Auto) 16.6L, Monocytes (%) (Auto) 11.3H, Eosinophils (%) (Auto) 1.8, Basophils (%) (Auto) 0.4, Neutrophils # (Auto) 3.8, Lymphocytes # (Auto) 0.9L, Monocytes # (Auto) 0.6, Eosinophils # (Auto) 0.1, Basophils # (Auto) 0.0, Nucleated Red Blood Cells % (auto) 0.0 07/20/18 18:45: Prothrombin Time 12.7, Prothromb Time International Ratio 0.94, Activated Partial Thromboplast Time 38.8H, Anion Gap 8, Glomerular Filtration Rate 8.7L, Lactic Acid Level 0.8, Calcium Level 8.4L, Aspartate Amino Transf (AST/SGOT) 34, Alanine Aminotransferase (ALT/SGPT) 35, Alkaline Phosphatase 103, Total Bilirubin 0.3, Direct Bilirubin < 0.1, Total Creatine Kinase 113, Creatine Kinase MB 3.0, Creatine Kinase MB Relative Index 2.39, Troponin I 0.05, Total Protein 7.1, Albumin 3.4, Albumin/Globulin Ratio 0.92L, Amylase Level 166H, Lipase 522H 07/21/18 05:48: Immature Granulocyte % (Auto) 0.2, White Blood Count 5.1, Red Blood Count 4.11, Hemoglobin 11.1L, Hematocrit 37.7, Mean Corpuscular Volume 91.7, Mean Corpuscular Hemoglobin 27.0, Mean Corpuscular Hemoglobin Concent 29.4L, Red Cell Distribution Width 18.3H, Platelet Count 125L, Neutrophils (%) (Auto) 67.6H, Lymphocytes (%) (Auto) 20.9L, Monocytes (%) (Auto) 8.6H, Eosinophils (%) (Auto) 1.9, Basophils (%) (Auto) 0.8, Neutrophils # (Auto) 3.5, Lymphocytes # (Auto) 1.1L, Monocytes # (Auto) 0.4, Eosinophils # (Auto) 0.1, Basophils # (Auto) 0.0, Nucleated Red Blood Cells % (auto) 0.0, Anion Gap 8, Glomerular Filtration Rate 7.3L, Calcium Level 8.4L, Blood Urea Nitrogen 35H, Creatinine 7.14H, Sodium Level 137, Potassium Level 3.4L, Chloride Level 97L, Carbon Dioxide Level 32 CBC/BMP Laboratory Tests 07/20/18 16:17 Red Blood Count 4.45, Mean Corpuscular Volume 92.1, Mean Corpuscular Hemoglobin 27.6, Mean Corpuscular Hemoglobin Concent 30.0 L, Red Cell Distribution Width 18.2 H, Neutrophils (%) (Auto) 69.5 H, Lymphocytes (%) (Auto) 16.6 L, Monocytes (%) (Auto) 11.3 H, Eosinophils (%) (Auto) 1.8, Basophils (%) (Auto) 0.4, Neutrophils # (Auto) 3.8, Lymphocytes # (Auto) 0.9 L, Monocytes # (Auto) 0.6, Eosinophils # (Auto) 0.1, Basophils # (Auto) 0.0 07/20/18 18:45 07/21/18 05:48 Red Blood Count 4.11, Mean Corpuscular Volume 91.7, Mean Corpuscular Hemoglobin 27.0, Mean Corpuscular Hemoglobin Concent 29.4 L, Red Cell Distribution Width 18.3 H, Neutrophils (%) (Auto) 67.6 H, Lymphocytes (%) (Auto) 20.9 L, Monocytes (%) (Auto) 8.6 H, Eosinophils (%) (Auto) 1.9, Basophils (%) (Auto) 0.8, Neutrophils # (Auto) 3.5, Lymphocytes # (Auto) 1.1 L, Monocytes # (Auto) 0.4, Eosinophils # (Auto) 0.1, Basophils # (Auto) 0.0, Calcium Level 8.4 L Microbiology Microbiology 07/20/18 Blood Culture, Received Pending 07/20/18 Blood Culture, Received Pending 07/20/18 Gastrointestinal Tract Panel (PCR) - Final, Complete Allergies Coded Allergies: [id number] Reductase Inhibitor (Verified Allergy, Unknown, PAIN, 07/20/18) PT SAYS SHE CAN TAKE PRAVASTATIN Home Medications Scheduled Aspirin (Aspirin EC) 81 Mg Tablet.dr, 81 MG PO QHS, (Reported) Carvedilol (Carvedilol) 6.25 Mg Tab, 6.25 MG PO QHS, (Reported) Clopidogrel Bisulfate (Clopidogrel) 75 Mg Tab, 75 MG PO QHS, (Reported) Hydralazine HCl (Hydralazine HCl) 25 Mg Tab, 25 MG PO QHS, (Reported) Multivitamins (Thera M Plus Tablet) 1 Tab Tab, 1 TAB PO QHS, (Reported) Pravastatin Sodium (Pravastatin Sodium) 80 Mg Tablet, 80 MG PO QHS, (Reported) Sevelamer Carbonate (Sevelamer Carbonate) 800 Mg Tablet, 1,600 MG PO BID, (R eported) Ubidecarenone/Vit E Acet (Co Q-10 100 mg Softgel) 100 Mg Cap, 100 MG PO QHS, (Reported) Scheduled PRN Cyclobenzaprine HCl (Cyclobenzaprine HCl) 5 Mg Tab, 5 MG PO Q6H PRN for MUSCLE SPASMS, (Reported) Docusate Sodium (Colace) 100 Mg Cap, 100 MG PO DAILY PRN for CONSTIPATION, (Reported) Insulin Glargine (Lantus) 100 Unit/Ml Inj, 10 UNIT INJ QHS PRN for HIGH BLOOD SUGAR, (Reported) Lidocaine/Prilocaine (Lidocaine-Prilocaine Cream) 2.5%/2.5% Cream..g., 1 DOSE TOP DAILY PRN for PAIN, (Reported) APPLIES TO PORT AREA Menthol (Bengay) 5% Gel..gram., 1 APLCT TOP QHS PRN for PAIN, (Reported) Tramadol HCl (Tramadol HCl) 50 Mg Tab, 100 MG PO Q6H PRN for PAIN, (Reported) GME ATTESTATION GME ATTESTATION My faculty preceptor for this patient encounter was Dr. Lidia Kiran, and was physically present during the encounter and was fully available. All aspects of the patient interview, examination, medical decision making process, and medical care plan development were reviewed and approved by the faculty precepto r. The faculty preceptor is aware and concurs with the plan as stated in the body of this note and will attest to such by his/her cosignature. ATTENDING NOTE Pt was seen and examined with the resident. A: ESRD on HD Accelerated HTN Acute on Chronic Combined systolic and Diastolic CHF Acute gastroenteritis Chronic non compliance with medications P: HD today with UF goal ~2L Restart home medication with twice a day dose of Coreg,Hydralazine and Isosorbide SHERYL RODRIGUEZ DO July 21, 2018 11:53 LIDIA KIRAN MD July 24, 2018 12:26
[2018-07-21] MEDS ORDERED: **hydrALAZINE HCL** 25 MG TAB PO SCH (21:00)
[2018-07-21] MEDS: MULTIVITAMINS/MINERALS THERAP 1 TAB PO SCH (21:42)
[2018-07-21] MEDS: PRAVASTATIN 20 MG TAB PO SCH (21:42)
[2018-07-21] MEDS: CLOPIDOGREL 75 MG TAB PO SCH (21:42)
[2018-07-21] MEDS: ASPIRIN 81 MG ENTERIC TAB PO SCH (21:43)
[2018-07-21] MEDS: CYCLOBENZAPRINE 5MG TABLET PO PRN (21:46)
[2018-07-21 22:00] VITALS: BP 139/88
[2018-07-22 06:00] VITALS: BP 145/65
[2018-07-22 06:41] LABS: BASO % 0.6 % (0.0-1.0); EOS # 0.1 10^3/uL (0.0-0.50); EOS % 1.7 % (0.0-3.0); HEMATOCRIT 35.2 % (36.0-47.0); HEMOGLOBIN 10.2 g/dl (12.0-15.5); LYMPH # 0.8 10^3/uL (1.5-4.5); MEAN CORPUSCULAR HEMOGLOBIN 26.6 pg (27.0-33.0); MEAN CORPUSCULAR VOLUME 91.7 fl (80.0-96.0); MONO # 0.7 10^3/uL (0.0-0.8); MONO % 9.4 % (0.0-5.0); NEUTROPHILS # 5.4 10^3/uL (1.8-7.7); PLATELET COUNT, AUTOMATED 124 10^3/uL (150-450); RED BLOOD COUNT 3.84 10^6/uL (4.00-5.40)
[2018-07-22 07:04] LABS: CALCIUM LEVEL 8.3 MG/DL (8.8-10.2); CREATININE FOR GFR 6.07 MG/DL (0.55-1.30); GLOMERULAR FILTRATION RATE 8.8 (>39); POTASSIUM SERUM 3.8 MEQ/L (3.5-5.1)
[2018-07-22] MEDS: SUCRALFATE 1 GM TAB PO SCH ×2 (08:03→20:30)
[2018-07-22] MEDS: PANTOPRAZOLE 40MG TAB (PROTONIX) PO SCH (08:03)
[2018-07-22] MEDS: HEPARIN SOD (PORCINE) 5000 UNITS/ML VIAL SC SCH ×2 (08:04→20:31)
[2018-07-22] MEDS: HumaLOG INSULIN (NovoLOG) PER UNIT SC SCH ×4 (08:04→21:00)
[2018-07-22] MEDS ORDERED: oxyCODONE 5MG TAB PO PRN (08:15)
--- NOTE | 2018-07-22 10:21 | REP ---
Clinical: Right upper quadrant pain. Technique: Real time collins scale ultrasound examination using curved array transducer. Findings: Liver is minimally enlarged measuring 19 cm craniocaudal length with mild fatty infiltration suggested. No focal hepatic lesion identified. The pancreas is normal in appearance and echogenicity. The gallbladder is without gallstones, wall thickening, or pericholecystic fluid and no biliary ductal dilatation is appreciated. Very subtle adenomyomatosis at the gallbladder fundus cannot be excluded. The right kidney appears mildly atrophic and measures 7.2 x 4.3 x 3.6 cm without hydronephrosis. No ascites. Impression: 1. Very subtle hepatomegaly and mild fatty infiltration to the liver. 2. Questionable early adenomyomatosis of the gallbladder which is likely insignificant. Electronically Signed by Joni Dumont MD 07/22/2018 10:12 A
--- NOTE | 2018-07-22 11:10 | IPNPDOC ---
Date Seen The patient was seen on 07/22/18. Progress Note SUBJECTIVE: 73-year-old female with past medical history of end-stage renal disease on hemodialysis Mon, Mon, Monday, systolic and diastolic congestive heart failure, hypertension, diabetes, CAD, dyslipidemia, CVA with residual right paresis , spinal stenosis with lumbar laminectomy in jan 2018 presents with sudden onset for abdominal pain with N/V/abdominal pain and diarrhea no diarrhea still c/o intermittent RUQ pain which is chronic per her no events overnight OBJECTIVE PHYSICAL EXAMINATION: VITAL SIGNS: Please see below. GENERAL: AA Ox3, comfortable HEENT: atraumatic CARDIOVASCULAR: S1 S2 regular no murmur RESPIRATORY: clear no rales no wheezing ABDOMINAL: soft BS +, +tenderness in RUQ but no rebound EXTREMITIES: no edema NEUROLOGICAL: non focal PSYCHOLOGICAL: no acute psychosis 1. Acute abdominal pain/RUQ pain CT showed possible Enterocolitis, likely viral GI panel negative Negative gallbladder doppler 2. Gastritis, as seen in EGD 2 weeks ago will continue pantoprazole and sucralfate. 3. Mildly elevated lipase/pancreatitis will treat supportively 4. ESRD, Nephrology consulted for HD 5. Systolic and diastolic CHF, compensated. 6. Hypertension, with hypertensive urgency Now control well 7. DM T2, will continue insulin 8. CAD, continue ASA, Plavix, BB and statin 9. Still has RUQ pain with negative gallbladder doppler Plans to discharge home tomorrow VS, I&O, 24H, Fishbone Vital Signs/I&O Vital Signs Date Time Temp Pulse Resp B/P (MAP) Pulse Ox O2 Delivery O2 Flow Rate FiO2 07/22/18 06:00 97.6 83 17 145/65 (91) 98 07/21/18 06:00 2.0 07/20/18 22:54 Room Air I&O- Last 24 Hours up to 6 AM0 07/22/18 06:00 Intake Total 680 ml Output Total 2000 ml Balance -1320 ml Laboratory Data 24H LABS Laboratory Tests 2 07/21/18 11:52: Bedside Glucose (Misc Panel) 106 07/21/18 17:08: Bedside Glucose (Misc Panel) 86 07/21/18 20:33: Bedside Glucose (Misc Panel) 231H 07/22/18 05:53: Immature Granulocyte % (Auto) 0.3, White Blood Count 7.0, Red Blood Count 3.84L, Hemoglobin 10.2L, Hematocrit 35.2L, Mean Corpuscular Volume 91.7, Mean Corpuscular Hemoglobin 26.6L, Mean Corpuscular Hemoglobin Concent 29.0L, Red Cell Distribution Width 18.5H, Platelet Count 124L, Neutrophils (%) (Auto) 77.0H, Lymphocytes (%) (Auto) 11.0L, Monocytes (%) (Auto) 9.4H, Eosinophils (%) (Auto) 1.7, Basophils (%) (Auto) 0.6, Neutrophils # (Auto) 5.4, Lymphocytes # (Auto) 0.8L, Monocytes # (Auto) 0.7, Eosinophils # (Auto) 0.1, Basophils # (Auto) 0.0, Nucleated Red Blood Cells % (auto) 0.0, Anion Gap 7L, Glomerular Filtration Rate 8.8L, Blood Urea Nitrogen 26H, Creatinine 6.07H, Sodium Level 139, Potassium Level 3.8, Chloride Level 101, Carbon Dioxide Level 31, Calcium Level 8.3L CBC/BMP Laboratory Tests 07/22/18 05:53 Red Blood Count 3.84 L, Mean Corpuscular Volume 91.7, Mean Corpuscular Hemoglobin 26.6 L, Mean Corpuscular Hemoglobin Concent 29.0 L, Red Cell Distribution Width 18.5 H, Neutrophils (%) (Auto) 77.0 H, Lymphocytes (%) (Auto) 11.0 L, Monocytes (%) (Auto) 9.4 H, Eosinophils (%) (Auto) 1.7, Basophils (%) (Auto) 0.6, Neutrophils # (Auto) 5.4, Lymphocytes # (Auto) 0.8 L, Monocytes # (Auto) 0.7, Eosinophils # (Auto) 0.1, Basophils # (Auto) 0.0, Calcium Level 8.3 L Microbiology Microbiology 07/20/18 Blood Culture - Preliminary, Resulted No growth after 24 hours . All specim... 07/20/18 Blood Culture - Preliminary, Resulted No growth after 24 hours . All specim... 07/20/18 Gastrointestinal Tract Panel (PCR) - Final, Complete FORREST MUNGUIA MD July 22, 2018 11:10
[2018-07-22 14:00] VITALS: BP 167/78
[2018-07-22] MEDS ORDERED: DARBEPOETIN 100 MCG/0.5 ML *DIALYSIS* SYRINGE (J0882) IV SCH (18:00)
[2018-07-22] MEDS: ISOSORBIDE MONONITRATE 10MG TABLET PO SCH (18:38)
[2018-07-22] MEDS: PRAVASTATIN 20 MG TAB PO SCH (20:27)
[2018-07-22] MEDS: ASPIRIN 81 MG ENTERIC TAB PO SCH (20:29)
[2018-07-22] MEDS: CARVedilol 6.25 MG TAB PO SCH (20:29)
[2018-07-22] MEDS: MULTIVITAMINS/MINERALS THERAP 1 TAB PO SCH (20:30)
[2018-07-22] MEDS: **hydrALAZINE HCL** 25 MG TAB PO SCH (20:30)
[2018-07-22] MEDS: CLOPIDOGREL 75 MG TAB PO SCH (20:30)
[2018-07-22 22:00] VITALS: BP 170/88
[2018-07-22] MEDS: CYCLOBENZAPRINE 5MG TABLET PO PRN (23:44)
--- NOTE | 2018-07-23 01:12 | IPN ---
DATE: 07/22/2018 SUBJECTIVE: The patient was seen and examined at the bedside today morning. She is afebrile, hemodynamically stable. She was dialyzed yesterday. She tolerated the hemodialysis procedure well. Two liters of fluid was removed. The patient reports that her abdominal pain is improving now. She got an ultrasound of the gallbladder done today morning to rule out acute cholecystitis. OBJECTIVE: VITAL SIGNS: Temperature is 97.6 degrees Fahrenheit, blood pressure 145/65, pulse is 83, respiratory rate of 17, saturating 98% on room air. INTAKE AND OUTPUT. There is no urine output recorded. Ultrafiltration with hemodialysis was 2 liters. Weight in the bed scale is 66.5 kg. PHYSICAL EXAMINATION: GENERAL: The patient is awake, alert, oriented x3, laying in bed in no apparent distress. HEAD AND NECK EXAM: Extraocular muscles are intact. Pupils equally round and reactive to light. Mucous membranes are moist. Neck is supple. There is no jugular venous distention (JVD). CARDIOVASCULAR SYSTEM: S1, S2 regular rate. No edema of the bilateral lower extremities. RESPIRATORY: Chest is clear to auscultation bilaterally. Bilateral equal air entry. No rales or rhonchi. ABDOMEN: Soft. Positive bowel sounds. Nontender. No organomegaly. MUSCULOSKELETAL: No clubbing or cyanosis. Pulses are 2+. CENTRAL NERVOUS SYSTEM (HISTOLOGICAL ILLUSTRATOR): No focal deficit. Power is 5/5 in all extremities. AV access: Right upper extremity arteriovenous (AV) fistula with positive thrill and bruit. LABORATORY REVIEW: Complete blood count (CBC) showed white blood cell of 7, hemoglobin 10.2, platelets are 124. Basic metabolic panel (BMP) showed sodium 139, potassium 3.8, chloride 101, bicarbonate 31, BUN 26, creatinine is 6, calcium 8.3. MICROBIOLOGY: Gastrointestinal (GI) panel and blood cultures are negative. IMAGING STUDIES: Ultrasound of the gallbladder did not show any acute cholecystitis today. CURRENT INPATIENT MEDICATIONS: The patient's medications were all reviewed by me. - tramadol was stopped. No other change in the medications today as compared with yesterday. ASSESSMENT/PLAN: 1. End-stage renal disease on hemodialysis. The patient was dialyzed yesterday because of intravenous (IV) contrast and incomplete dialysis on her regular schedule on Monday. She is optimized at this point. Next hemodialysis will be done tomorrow morning according to her regular schedule. 2. Anemia in end-stage renal disease. Hemoglobin is 10.2 which is optimal. The patient will be given a dose of Aranesp with hemodialysis tomorrow morning. 3. Hypertension with hypertensive heart disease in end-stage renal disease. Patient's blood pressure is not optimized. Her home medications are on hold. I am going to restart the patient on carvedilol and she also needs to be on hydralazine. Once a day hydralazine dose is not appropriate. I am going to adjust her medications. 4. Chronic combined systolic and diastolic congestive heart failure. Her volume status has been optimized with dialysis. I am going to restart carvedilol, adjust her dose of hydralazine and if she can tolerate I will start her on low dose of angiotensin receptor shante. 5. A recent cerebrovascular accident (CVA). Continue current dose of aspirin and Plavix. Continue home dose of pravastatin 80 mg at bedtime.
[2018-07-23 06:00] VITALS: BP 160/74
[2018-07-23] MEDS: HEPARIN SOD (PORCINE) 5000 UNITS/ML VIAL SC SCH (06:24)
[2018-07-23] MEDS: PANTOPRAZOLE 40MG TAB (PROTONIX) PO SCH (06:31)
[2018-07-23] MEDS: SUCRALFATE 1 GM TAB PO SCH (06:31)
[2018-07-23] MEDS: ISOSORBIDE MONONITRATE 10MG TABLET PO SCH (06:34)
[2018-07-23] MEDS: HumaLOG INSULIN (NovoLOG) PER UNIT SC SCH ×2 (07:47→11:15)
[2018-07-23 07:48] VITALS: BP 166/78
[2018-07-23] MEDS: CARVedilol 6.25 MG TAB PO SCH (07:48)
[2018-07-23] MEDS: **hydrALAZINE HCL** 25 MG TAB PO SCH (07:49)
[2018-07-23 07:53] LABS: BASO % 0.4 % (0.0-1.0); EOS # 0.1 10^3/uL (0.0-0.50); EOS % 1.8 % (0.0-3.0); HEMATOCRIT 35.9 % (36.0-47.0); HEMOGLOBIN 10.6 g/dl (12.0-15.5); LYMPH # 0.9 10^3/uL (1.5-4.5); LYMPH % 11.8 % (24.0-44.0); MEAN CORPUSCULAR HEMOGLOBIN 27.3 pg (27.0-33.0); MEAN CORPUSCULAR HGB CONC 29.5 g/dl (32.0-36.5); MEAN CORPUSCULAR VOLUME 92.5 fl (80.0-96.0); MONO # 0.7 10^3/uL (0.0-0.8); MONO % 8.9 % (0.0-5.0); NEUTROPHILS # 5.6 10^3/uL (1.8-7.7); NEUTROPHILS % 76.7 % (36.0-66.0); PLATELET COUNT, AUTOMATED 106 10^3/uL (150-450); RED BLOOD COUNT 3.88 10^6/uL (4.00-5.40); WHITE BLOOD COUNT 7.3 10^3/uL (4.0-10.0)
[2018-07-23 08:20] LABS: CALCIUM LEVEL 8.7 MG/DL (8.8-10.2); CREATININE FOR GFR 8.43 MG/DL (0.55-1.30); POTASSIUM SERUM 4.4 MEQ/L (3.5-5.1)
--- NOTE | 2018-07-23 11:01 | DS.PDOC ---
Discharge Summary General Date of Admission July 20, 2018 at 20:28 Date of Discharge July 23, 2018 Primary Care Physician: GERA JOHN MD @ Attending Physician: FORREST MUNGUIA MD Specialist/Consultants Involve: GERA JOHN MD @ Discharge Summary PROCEDURES PERFORMED DURING STAY: [None]. ADMITTING DIAGNOSES: 1. Acute gastroenteritis DISCHARGE DIAGNOSES: 1. gastroenteritis 2. Hypertensive emergency 3. ESRD on HD 4. DM T2 COMPLICATIONS/CHIEF COMPLAINT: Gastroenteritis And Colitis Viral. 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 She first started having upper abdominal pain in the middle of the night which woke her up from sleep . She thought she had some indigestion took some peptobismol and went back to sleep. This morning at around 7:45 am she again started having abdominal pain which was crampy located in the periumbilical area then spread all over the abdomen along with nausea th en started having diarrhea which was liquid black in color. She had diarrhea innumerable times in the morning then went for her HD where she continued to have abdominal pain and nausea and then had diarrhea so had to be taken off the machine after about 90 mons into treatment. She was instructed by the nurses in the HD unit to come to the ED for evaluation. In the ED she continues to have diarrhea 3 times continues to have abdominal pain and nausea. SHe also complains of headache and feeling weak. CT abdomen showed. Fluid-filled loops of small large bowel raise the possibility of acute enterocolitis. HOSPITAL COURSE: After admission, she was treated supportively including bowel rest, IVF, and pain control. She was consulted with senior paralegal and underwent for HD; her nausea vomiting and diarrhea resolved quickly. due to persistent RUQ pain and she had gallbladder US which did not show any evidence of cholecystitis. Now she is medically stable and will go home and she is scheduled for HD at 4:40 PM today for HD after discharging from hospital. DISCHARGE MEDICATIONS: Please see below. ALLERGIES: Please see below. PHYSICAL EXAMINATION ON DISCHARGE: VITAL SIGNS: Please see below. GENERAL: AA Ox3, comfortable HEENT: Atraumatic NECK: non JVD CARDIOVASCULAR EXAMINATION: s1s2 regular no murmur RESPIRATORY EXAMINATION: clear, no rales no wheezing ABDOMINAL EXAMINATION: soft BS positive, mild tenderness in RUQ, no rebound EXTREMITIES: no edema SKIN: no rash NEUROLOGICAL EXAMINATION: non focal PSYCHIATRIC EXAMINATION: normal mood LABORATORY DATA: Please see below. IMAGING: abdominal CT and gallbladder US PROGNOSIS: fair ACTIVITY: [As tolerated]. DIET: regular diet DISPOSITION: home ITEMS TO FOLLOWUP ON ON OUTPATIENT: 1. PCP in 1-2 weeks DISCHARGE CONDITION: [Stable]. TIME SPENT ON DISCHARGE: Greater than 35 minutes. Vital Signs/I&Os Vital Signs Date Time Temp Pulse Resp B/P (MAP) Pulse Ox O2 Delivery O2 Flow Rate FiO2 07/23/18 07:48 81 166/78 07/23/18 06:00 99.3 18 97 07/21/18 06:00 2.0 07/20/18 22:54 Room Air I&O- Last 24 Hours up to 6 AM 07/23/18 06:00 Intake Total 580 ml Output Total 2 ml Balance 578 ml Laboratory Data Labs 24H Laboratory Tests 2 07/22/18 11:43: Bedside Glucose (Misc Panel) 139H 07/22/18 17:09: Bedside Glucose (Misc Panel) 184H 07/22/18 20:58: Bedside Glucose (Misc Panel) 153H 07/23/18 06:34: Bedside Glucose (Misc Panel) 139H 07/23/18 07:30: Immature Granulocyte % (Auto) 0.4, White Blood Count 7.3, Red Blood Count 3.88L, Hemoglobin 10.6L, Hematocrit 35.9L, Mean Corpuscular Volume 92.5, Mean Corpuscular Hemoglobin 27.3, Mean Corpuscular Hemoglobin Concent 29.5L, Red Cell Distribution Width 18.7H, Platelet Count 106L, Neutrophils (%) (Auto) 76.7H, Lymphocytes (%) (Auto) 11.8L, Monocytes (%) (Auto) 8.9H, Eosinophils (%) (Auto) 1.8, Basophils (%) (Auto) 0.4, Neutrophils # (Auto) 5.6, Lymphocytes # (Auto) 0.9L, Monocytes # (Auto) 0.7, Eosinophils # (Auto) 0.1, Basophils # (Auto) 0.0, Nucleated Red Blood Cells % (auto) 0.0, Anion Gap 9, Glomerular Filtration Rate 6.0L, Blood Urea Nitrogen 41#H, Creatinine 8.43*H, Sodium Level 138, Potassium Level 4.4, Chloride Level 101, Carbon Dioxide Level 28, Calcium Level 8.7L CBC/BMP Laboratory Tests 07/23/18 07:30 Red Blood Count 3.88 L, Mean Corpuscular Volume 92.5, Mean Corpuscular Hemoglobin 27.3, Mean Corpuscular Hemoglobin Concent 29.5 L, Red Cell Distribution Width 18.7 H, Neutrophils (%) (Auto) 76.7 H, Lymphocytes (%) (Auto) 11.8 L, Monocytes (%) (Auto) 8.9 H, Eosinophils (%) (Auto) 1.8, Basophils (%) (Auto) 0.4, Neutrophils # (Auto) 5.6, Lymphocytes # (Auto) 0.9 L, Monocytes # (Auto) 0.7, Eosinophils # (Auto) 0.1, Basophils # (Auto) 0.0, Calcium Level 8.7 L FSBS Laboratory Tests Test 07/22/18 11:43 07/22/18 17:09 07/22/18 20:58 07/23/18 06:34 Range/Units Bedside Glucose (Misc Panel) 139 184 153 139 83-110 MG/DL Microbiology Microbiology 07/20/18 Blood Culture - Preliminary, Resulted No Growth after 48 hours. All Specime... 07/20/18 Blood Culture - Preliminary, Resulted No Growth after 48 hours. All Specime... 07/20/18 Gastrointestinal Tract Panel (PCR) - Final, Complete Discharge Medications Scheduled Aspirin (Aspirin EC) 81 Mg Tablet.dr, 81 MG PO QHS, (Reported) Carvedilol (Carvedilol) 6.25 Mg Tab, 6.25 MG PO QHS, (Reported) Clopidogrel Bisulfate (Clopidogrel) 75 Mg Tab, 75 MG PO QHS, (Reported) Hydralazine HCl (Hydralazine HCl) 25 Mg Tab, 25 MG PO QHS, (Reported) Multivitamins (Thera M Plus Tablet) 1 Tab Tab, 1 TAB PO QHS, (Reported) Pravastatin Sodium (Pravastatin Sodium) 80 Mg Tablet, 80 MG PO QHS, (Reported) Sevelamer Carbonate (Sevelamer Carbonate) 800 Mg Tablet, 1,600 MG PO BID, (Reported) Ubidecarenone/Vit E Acet (Co Q-10 100 mg Softgel) 100 Mg Cap, 100 MG PO QHS, (Reported) Scheduled PRN Cyclobenzaprine HCl (Cyclobenzaprine HCl) 5 Mg Tab, 5 MG PO Q6H PRN for MUSCLE SPASMS, (Reported) Docusate Sodium (Colace) 100 Mg Cap, 100 MG PO DAILY PRN for CONSTIPATION, (Reported) Insulin Glargine (Lantus) 100 Unit/Ml Inj, 10 UNIT INJ QHS PRN for HIGH BLOOD SUGAR, (Reported) Lidocaine/Prilocaine (Lidocaine-Prilocaine Cream) 2.5%/2.5% Cream..g., 1 DOSE TOP DAILY PRN for PAIN, (Reported) APPLIES TO PORT AREA Menthol (Bengay) 5% Gel..gram., 1 APLCT TOP QHS PRN for PAIN, (Reported) Tramadol HCl (Tramadol HCl) 50 Mg Tab, 100 MG PO Q6H PRN for PAIN, (Reported) Allergies Coded Allergies: Kbrgela-Xmu-Vln Reductase Inhibitor (Verified Allergy, Unknown, PAIN, 07/20/18) PT SAYS SHE CAN TAKE PRAVASTATIN FORREST MUNGUIA MD July 23, 2018 11:01
--- NOTE | 2018-07-23 16:36 | IPN ---
DATE: 07/23/2018 SUBJECTIVE: The patient was seen and examined at the bedside today morning. She is afebrile, hemodynamically stable. She reports her abdominal pain has improved today. She tolerated her breakfast today morning and today is the patient's regular day of dialysis. OBJECTIVE: VITAL SIGNS: Temperature is 99.3 degrees Fahrenheit, blood pressure 166/78, pulse is 81, respiratory of 18, saturating 97% on room air. INTAKE AND OUTPUT: The urine output recorded is 25 mL only. Weight in the bed scale is 65.7 kg. PHYSICAL EXAMINATION: GENERAL: The patient is awake, alert and oriented times three, laying in bed, in no apparent distress. HEAD AND NECK: Extraocular muscles intact. Pupils equally round and reactive to light. Mucous membranes are moist. Neck is supple. There is no jugular venous distention (JVD). CARDIOVASCULAR: S1, S2, regular rate. No edema of the bilateral lower extremities. RESPIRATORY: Chest is clear to auscultation bilaterally. Bilateral equal air entry. No rales or rhonchi. ABDOMEN: Soft. Positive bowel sounds. Nontender. No organomegaly. MUSCULOSKELETAL: No clubbing or cyanosis. Pulses are 2+. CENTRAL NERVOUS SYSTEM: No focal deficit. Power is 5/5 in all extremities. ARTERIOVENOUS ACCESS (AV): Right upper extremity AV fistula with thrill and bruit. LABORATORY REVIEW: CBC showed a WBC 7.3, hemoglobin 10.6, platelets are 106. BMP showed sodium 138, potassium 4.4, chloride 101, bicarbonate 28, BUN 41, creatinine is 8.4, calcium 8.7. IMAGING STUDIES: Gallbladder ultrasound was done yesterday which showed hepatomegaly and fatty infiltration of liver. No other acute pathology. CURRENT INPATIENT MEDICATIONS: The patient's medications were all reviewed by me. Her Coreg dose was changed to 6.25 mg by mouth twice a day. She was also started on hydralazine 25 mg by mouth twice a day and isosorbide 10 mg by mouth twice a day yesterday. ASSESSMENT AND PLAN: 1. End-stage renal disease, on hemodialysis. Today is the patient's regular day of dialysis. She is being discharged today. She will be dialyzed as outpatient today in the afternoon. I have talked to the dialysis center. She has dialysis spot at 4:40 p.m. 2. Hypertension with hypertensive heart disease and end-stage renal disease. The patient is noncompliant with the antihypertensive medications. She presented with blood pressures in 200s. I have adjusted her medications again, Coreg 6.25 mg by mouth twice a day, hydralazine 25 mg twice a day and isosorbide 10 mg by mouth twice a day. She needs to continue these medications on discharge. 3. Chronic combined systolic and diastolic congestive heart failure. The patient is noncompliant with fluid restriction and medications. Her volume status is optimal. Further optimization will be done with dialysis as outpatient. DISPOSITION: It is okay to discharge the patient from nephrology standpoint.
== END 2018-07-23 15:31 | disposition home or self-care (01) | DRG 391 ==
LOC: M ED 14:17 → M ED INP 20:28 → M MSPAV 23:08
PROVIDERS: ADMIT Internal Medicine Nephrology; ATTEND Hospitalist
PROC: 5A1D70Z Performance of Urinary Filtration, Intermittent, Less than 6 Hours Per Day (ICD-10-PCS; principal; 2018-07-21)
DX: A08.4 Viral intestinal infection, unspecified (principal); N18.6 End stage renal disease; I50.42 Chronic combined systolic (congestive) and diastolic (congestive) heart failure; I13.2 Hypertensive heart and chronic kidney disease with heart failure and with stage 5 chronic kidney disease, or end stage renal disease; I69.351 Hemiplegia and hemiparesis following cerebral infarction affecting right dominant side; E11.22 Type 2 diabetes mellitus with diabetic chronic kidney disease; I25.10 Atherosclerotic heart disease of native coronary artery without angina pectoris; E78.5 Hyperlipidemia, unspecified; I25.5 Ischemic cardiomyopathy; I69.328 Other speech and language deficits following cerebral infarction; Z66 Do not resuscitate; Z79.82 Long term (current) use of aspirin; Z79.899 Other long term (current) drug therapy; Z88.8 Allergy status to other drugs, medicaments and biological substances; Z99.2 Dependence on renal dialysis; Z95.1 Presence of aortocoronary bypass graft; I16.0 Hypertensive urgency; D63.1 Anemia in chronic kidney disease

== ENCOUNTER 2018-08-18 09:25 | Emergency (ER) | payer MEDICARE, BC ==
[~2018-08-18] VITALS: Ht 165.1 cm; Wt 65.3 kg
[~2018-08-18 09:25] MED LIST changes: +ASPI-164 PO; +BENGGEL2 TOP; +LIDO2.5C15 TOP
[2018-08-18 11:11] LABS: BASO % 0.5 % (0.0-1.0); EOS # 0.2 10^3/uL (0.0-0.50); EOS % 2.7 % (0.0-3.0); HEMATOCRIT 37.6 % (36.0-47.0); HEMOGLOBIN 11.1 g/dl (12.0-15.5); LYMPH # 0.9 10^3/uL (1.5-4.5); LYMPH % 16.9 % (24.0-44.0); MEAN CORPUSCULAR HEMOGLOBIN 27.3 pg (27.0-33.0); MEAN CORPUSCULAR HGB CONC 29.5 g/dl (32.0-36.5); MEAN CORPUSCULAR VOLUME 92.4 fl (80.0-96.0); MONO # 0.6 10^3/uL (0.0-0.8); MONO % 10.6 % (0.0-5.0); NEUTROPHILS # 3.8 10^3/uL (1.8-7.7); NEUTROPHILS % 68.9 % (36.0-66.0); PLATELET COUNT, AUTOMATED 155 10^3/uL (150-450); RED BLOOD COUNT 4.07 10^6/uL (4.00-5.40); WHITE BLOOD COUNT 5.5 10^3/uL (4.0-10.0)
[2018-08-18 12:38] VITALS: BP 140/78
== END 2018-08-18 12:40 | disposition home or self-care (01) ==
LOC: M ED 09:25
DX: T82.838A Hemorrhage due to vascular prosthetic devices, implants and grafts, initial encounter (principal); X58.XXXA Exposure to other specified factors, initial encounter; Y92.89 Other specified places as the place of occurrence of the external cause; N18.6 End stage renal disease; Z99.2 Dependence on renal dialysis

== ENCOUNTER → 2018-09-04 | Outpatient (CLI) | payer MEDICARE, BC ==
[~2018-09-04] MED LIST changes: +BUPIVACAINE HCL 0.5% 10 ML VIAL As Ordered ONE; +CYAN100049 PO; +ISOVUE-300 61% 50ML VIAL (Q9967) As Ordered ONE; +LIDOCAINE 2% MDV 20 ML VIAL As Ordered ONE; +MIDAZOLAM INJ 2 MG/2 ML VIAL (J2250) As Ordered ONE; +OMEP-221 PO; +OMEP20CA4 PO; +PROL60SO SC; +diphenhydrAMINE INJ 50MG/ML VIAL (J1200) As Ordered ONE; +fentaNYL 100 MCG/2 ML INJECTION (J3010) As Ordered ONE
[2018-09-04 14:46] VITALS: BP 168/77
--- NOTE | 2018-09-05 21:50 | REPIR ---
DATE OF PROCEDURE: 09/04/2018 ATTENDING SURGEON: Dr. Vy Dillard FOOT CUTTER: Mahogany Hardy and Sharifa De La Cruz PREPROCEDURE DIAGNOSES: End stage renal disease, dysfunctional left brachiocephalic arteriovenous fistula. POSTPROCEDURE DIAGNOSIS: End stage renal disease, dysfunctional left brachiocephalic arteriovenous fistula. PROCEDURE: Left brachiocephalic arteriovenous fistulogram, retrograde left brachial artery angiogram, left basilic vein angioplasty with 8 x 200 and 10 x 80 balloon, left axillary vein angioplasty with 8 x 200 and 10 x 80 balloon. INDICATION: The patient is a 73-year-old female with end stage renal disease who dialyzes through a left arm basilic vein transposition arteriovenous fistula. The patient has had difficulty with bleeding and pulsatility within the fistula. The patient will undergo a fistulogram with a possible angioplasty, stent and/or atherectomy. Risks, benefits and alternative treatment options were discussed with the patient. ANESTHESIA: Local with sedation. FLUORO TIME: 3.5 minutes. CONTRAST: 4 mL HEPARIN: None. COMPLICATIONS: None. DRAINS: None. SPECIMENS: None. IMPLANTS: None. PROCEDURE: The patient was taken to the angiography suite, placed supine on the angiography room table, and then prepped and draped in a standard surgical fashion. The left basilic vein transposition arteriovenous fistula was cannulated. Fistulogram showed multiple areas of stenosis that were angioplastied with the 8 x 200 and 10 x 80 balloon. A completion fistulogram showed resolution of the stenosis with excellent flow through the fistula. Sheath was removed and a 2-0 Prolene suture was placed at the puncture site for hemostasis. Dressings were then applied. The patient tolerated the procedure well. All instrument, sponge and needle counts were correct at the end of the case. There were no complications. Dr. Dillard was present for and directed the entire case. The patient was transferred to the holding area and subsequently discharged in stable condition.
== END ==
LOC: M IRPRO 11:56
PROVIDERS: ATTEND Surgery Vascular Surgery
DX: N18.6 End stage renal disease (principal); I13.2 Hypertensive heart and chronic kidney disease with heart failure and with stage 5 chronic kidney disease, or end stage renal disease; E11.22 Type 2 diabetes mellitus with diabetic chronic kidney disease; I50.32 Chronic diastolic (congestive) heart failure; I25.10 Atherosclerotic heart disease of native coronary artery without angina pectoris; E78.5 Hyperlipidemia, unspecified; M48.00 Spinal stenosis, site unspecified; D64.9 Anemia, unspecified; Z86.73 Personal history of transient ischemic attack (TIA), and cerebral infarction without residual deficits
CPT/HCPCS: 36902; C1725; C1769; C1894; J2250; J3010; Q9967

== ENCOUNTER 2018-09-09 12:29 | Inpatient (IN) | payer MEDICARE, BC ==
[~2018-09-09] VITALS: Ht 165.1 cm; Wt 66.8 kg
[~2018-09-09 12:29] MED LIST changes: -BUPIVACAINE HCL 0.5% 10 ML VIAL As Ordered ONE; -ISOVUE-300 61% 50ML VIAL (Q9967) As Ordered ONE; -LIDOCAINE 2% MDV 20 ML VIAL As Ordered ONE; -MIDAZOLAM INJ 2 MG/2 ML VIAL (J2250) As Ordered ONE; -OMEP-221 PO; -PROL60SO SC; -diphenhydrAMINE INJ 50MG/ML VIAL (J1200) As Ordered ONE; -fentaNYL 100 MCG/2 ML INJECTION (J3010) As Ordered ONE
[2018-09-09 13:04] LABS: BASO % 0.4 % (0.0-1.0); EOS # 0.1 10^3/uL (0.0-0.50); EOS % 2.2 % (0.0-3.0); HEMATOCRIT 38.9 % (36.0-47.0); HEMOGLOBIN 11.4 g/dl (12.0-15.5); LYMPH # 0.7 10^3/uL (1.5-4.5); LYMPH % 15.5 % (24.0-44.0); MEAN CORPUSCULAR HEMOGLOBIN 27.6 pg (27.0-33.0); MEAN CORPUSCULAR HGB CONC 29.3 g/dl (32.0-36.5); MEAN CORPUSCULAR VOLUME 94.2 fl (80.0-96.0); MONO # 0.4 10^3/uL (0.0-0.8); MONO % 9.7 % (0.0-5.0); NEUTROPHILS # 3.3 10^3/uL (1.8-7.7); NEUTROPHILS % 71.8 % (36.0-66.0); PLATELET COUNT, AUTOMATED 103 10^3/uL (150-450); RED BLOOD COUNT 4.13 10^6/uL (4.00-5.40); WHITE BLOOD COUNT 4.5 10^3/uL (4.0-10.0)
--- NOTE | 2018-09-09 13:07 | REP ---
Portable chest x-ray: Single view. History: Chest pain. Comparison chest x-ray is from July 03, 2018. Comparison chest CT study July 20, 2018. Findings: The patient is status post median sternotomy. There is a vascular stent in the brachiocephalic vein. Moderate cardiac enlargement is observed. There is slight blunting of the lateral pleural angles. Increased markings are seen in the lung bases bilaterally which may be atelectasis and/or infiltrate. Vascular congestion is seen. There is some fissural thickening in the minor fissure. There is a granulomatous nodule in the right perihilar region. Impression: Cardiomegaly with vascular congestion and slight blunting of the pleural angles. Increased lung markings in the bases may be subsegmental atelectasis and/or bibasilar infiltrate. Prior sternotomy. Brachiocephalic vein stent. Electronically Signed by Quirino Moreno MD 09/09/2018 02:36 P
[2018-09-09 13:40] LABS: ALBUMIN 3.8 GM/DL (3.2-5.2); ALT/SGPT 22 U/L (12-78); BILIRUBIN,DIRECT < 0.1 MG/DL (0.0-0.2); BILIRUBIN,TOTAL 0.3 MG/DL (0.2-1.0); BLOOD UREA NITROGEN 47 MG/DL (7-18); CALCIUM LEVEL 8.7 MG/DL (8.8-10.2); CARBON DIOXIDE LEVEL 28 MEQ/L (21-32); CHLORIDE LEVEL 100 MEQ/L (98-107); CK-MB VALUE MASS 3.5 NG/ML (<3.6); CPK CREATINE PHOSPHOKINASE 140 U/L (26-192); CREATININE FOR GFR 8.77 MG/DL (0.55-1.30); GLOMERULAR FILTRATION RATE 5.7 (>39); GLUCOSE, FASTING 155 MG/DL (70-100); LIPASE 937 U/L (73-393); POTASSIUM SERUM 5.5 MEQ/L (3.5-5.1); SODIUM LEVEL 139 MEQ/L (136-145); TOTAL PROTEIN 7.8 GM/DL (6.4-8.2); TROPONIN I 0.03 NG/ML (< 0.10)
[2018-09-09 13:57] LABS: AMYLASE 220 U/L (25-115)
[2018-09-09] MEDS ORDERED: OMEP-221 PO (15:02)
[2018-09-09] MEDS ORDERED: PROL60SO SC (15:02)
[2018-09-09] MEDS ORDERED: GLUCAGON FOR INJ 1 MG VIAL (J1610) SC PRN (16:15)
[2018-09-09] MEDS ORDERED: DOCUSATE SODIUM 100 MG CAP PO PRN (16:15)
[2018-09-09] MEDS ORDERED: DEXTROSE 50% 50 ML SYRINGE IV PRN (16:15)
[2018-09-09] MEDS ORDERED: GLUCOSE 4 GM CHEW TABLET PO PRN (16:15)
[2018-09-09] MEDS: **hydrALAZINE HCL** 25 MG TAB PO SCH (16:32)
[2018-09-09 17:26] VITALS: BP 188/83
[2018-09-09] MEDS ORDERED: KETOROLAC 30 MG/ML VIAL (J1885) IV ONE (18:15)
[2018-09-09] MEDS: HumaLOG INSULIN (NovoLOG) PER UNIT SC SCH ×2 (18:25→20:46)
[2018-09-09] MEDS: (RENVELA) SEVELAMER **CARBONate** 800 MG TAB PO SCH (18:25)
--- NOTE | 2018-09-09 18:26 | HPEPDOC ---
General Date of Admission Sep 09, 2018 at 16:05 Date of Service: Sep 09, 2018 Chief Complaint The patient is a 73-year-old female admitted with a reason for visit of Hypertensive Urgency Rt Upper Limb Pain. 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 The pain is sharp in nature located over the right shoulder blade, tip, the right side of neck and right shoulder. It radiated down the outer side of the arm. It is constant and certain positions of the arm make it worse. It was 8/10 in severity when she came t the hospital then improved a little. Work up in [facility] ED also showed that her lipase was elevated so there was concern for acute pancreatitis so the patient was admitted for evaluation of acute pancreatitis. Home Medications Scheduled Aspirin (Aspirin EC) 81 Mg Tablet.dr, 81 MG PO QHS, (Reported) Carvedilol (Carvedilol) 12.5 Mg Tablet, 12.5 MG PO BID Denosumab Injection (Prolia) 60 Mg/1 Ml Syringe, 60 MG SC EVERY SIX MONTHS, (Reported) HAD INJECTION IN JULY Hydralazine HCl (Hydralazine HCl) 50 Mg Tablet, 50 MG PO Q8H Insulin Glargine (Lantus) 100 Unit/Ml Inj, 1 DOSE INJ QHS, (Reported) USUALLY AROUND 10 UNITS - ADJUSTS BASED ON SUGAR Multivitamins (Thera M Plus Tablet) 1 Tab Tab, 1 TAB PO QHS, (Reported) Pravastatin Sodium (Pravastatin Sodium) 80 Mg Tablet, 80 MG PO QHS, (Reported) Sevelamer Carbonate (Sevelamer Carbonate) 800 Mg Tablet, 1,600 MG PO BIDWM, (Reported) Ubidecarenone/Vit E Acet (Co Q-10 100 mg Softgel) 100 Mg Cap, 100 MG PO QHS, (Reported) Scheduled PRN Cyclobenzaprine HCl (Cyclobenzaprine HCl) 5 Mg Tab, 5 MG PO Q6H PRN for MUSCLE SPASMS, (Reported) Docusate Sodium (Colace) 100 Mg Cap, 100 MG PO DAILY PRN for CONSTIPATION, (Reported) Lidocaine/Prilocaine (Lidocaine-Prilocaine Cream) 2.5%/2.5% Cream..g., 1 DOSE TOP DAILY PRN for PAIN, (Reported) APPLIES TO PORT AREA Menthol (Bengay) 5% Gel..gram., 1 APLCT TOP QHS PRN for PAIN, (Reported) Omeprazole (Omeprazole) 40 Mg Capsule.dr, 40 MG PO DAILY PRN for HEARTBURN, (Reported) Tramadol HCl (Tramadol HCl) 50 Mg Tab, 100 MG PO Q6H PRN for PAIN, (Reported) PT STATES SHE TOOK 100MG AT 03:00 AND 06:00 ON 09/09/18 Allergies Coded Allergies: Gcliply-Xin-Mjg Reductase Inhibitor (Verified Allergy, Unknown, PAIN, 07/20/18) PT SAYS SHE CAN TAKE PRAVASTATIN Past Medical History Medical History Combined systolic and diastolic heart failure Ischemic cardiomyopathy Hypertension ESRD on HD since Feb 2015 Anemia of Chronic disease CAD s/p CABG Bilateral Bronchiectasis with b/l calcified granulomas with mediastinal lymphadenopathy and chronic fibrosis and infiltrates of the lower lobes left > right stable since 2013 Diabetes Chronic back pain Dyslipidemia H/o CVA with residual right hemiparesis and slurred speech Spinal stenosis with lumber laminectomy Sleep disordered breathing in nocturnal pulse oximetry Surgical History Status post left upper arm arteriovenous fistula creation. Status post coronary artery bypass grafting. Status post lumbar spinal laminectomy at L2, L3, L4 at [facility] in Jan 2018 Fistulogram and dilatations of the AVF. Family History Mother: CHF Father: heart disease Siblings: None Children: 4 Alive, well, 1 due to SIDs, 1 due to sarcoidosis Social History * Smoker: Denies Alcohol: Denies Drugs: denies A-FIB/CHADSVASC A-FIB History Current/History of A-Fib/PAF?: No Review of Systems Constitutional: Denies: Chills, Fever, Night Sweats Eyes: Denies: Pain, Vision change ENT: Denies: Head Aches, Ear Pain, Dysphagia Skin: Denies: Rash, Lesions, Breakdown Pulmonary: Denies: Dyspnea, Cough Cardiovascular: Reports: Chest Pain (at the right back) Gastrointestinal: Reports: Nausea; Denies: Vomiting, Abdominal Pain, Diarrhea Hematologic: Denies: Bruising, Bleeding Excessively Musculoskeletal: Reports: Neck Pain, Shoulder Pain, Arm Pain Psych: Reports: Mood Normal; Denies: Depression, Memory Issues Physical Examination General Exam: Positive: Alert, Cooperative, No Acute Distress Eye Exam: Positive: PERRLA, Conjunctiva & lids normal, EOMI; Negative: Sclera icteric ENT Exam: Positive: Atraumatic, Mucous membr. moist/pink, Pharynx Normal Neck Exam: Positive: Supple; Negative: JVD, thyromegaly Chest Exam: Positive: Rales (and crackcles at the bases right > left), Dim inished (at the bases) Heart Exam: Positive: Rate Normal, Regular Rhythm, Normal S1, Normal S2; Negative: Tachycardic, Bradycardic, Irregular Rhythm, Gallops, Murmurs, Rubs Telemetry: Positive: No significant arrhythmia Abdomen Exam: Positive: Normal bowel sounds, Soft; Negative: Tenderness, Hepatospenomegaly Extremity Exam: Positive: Other (AVF on the left upper extremity. Has a spot on the upper part of the AVF with a scab on it which tends to get dislodged and bleed ); Negative: Clubbing, Cyanosis, Edema Skin Exam: Positive: Nl turgor and temperature; Negative: Breakdown, Lesion Psych Exam: Positive: Mental status NL, Memory Intact, Oriented x 3 Vital Signs Vital Signs Date Time Temp Pulse Resp B/P (MAP) Pulse Ox O2 Delivery O2 Flow Rate FiO2 09/09/18 17:00 86 164/91 (115) 98 Room Air 09/09/18 14:16 18 09/09/18 12:29 96.5 Laboratory Data Labs 24H Laboratory Tests 2 09/09/18 12:32: Immature Granulocyte % (Auto) 0.4, White Blood Count 4.5, Red Blood Count 4.13, Hemoglobin 11.4L, Hematocrit 38.9, Mean Corpuscular Volume 94.2, Mean Corpuscular Hemoglobin 27.6, Mean Corpuscular Hemoglobin Concent 29.3L, Red Cell Distribution Width 18.6H, Platelet Count 103L, Neutrophils (%) (Auto) 71.8H, Lymphocytes (%) (Auto) 15.5L, Monocytes (%) (Auto) 9.7H, Eosinophils (%) (Auto) 2.2, Basophils (%) (Auto) 0.4, Neutrophils # (Auto) 3.3, Lymphocytes # (Auto) 0.7L, Monocytes # (Auto) 0.4, Eosinophils # (Auto) 0.1, Basophils # (Auto) 0.0, Nucleated Red Blood Cells % (auto) 0.0, Anion Gap 11, Glomerular Filtration Rate 5.7L, Calcium Level 8.7L, Aspartate Amino Transf (AST/SGOT) 25, Alanine Aminotransferase (ALT/SGPT) 22, Alkaline Phosphatase 89, Total Bilirubin 0.3, Direct Bilirubin < 0.1, Total Creatine Kinase 140, Creatine Kinase MB 3.5, Creatine Kinase MB Relative Index 2.50, Troponin I 0.03, Total Protein 7.8, Albumin 3.8, Albumin/Globulin Ratio 0.95L, Amylase Level 220H, Lipase 937H CBC/BMP Laboratory Tests 09/09/18 12:32 Red Blood Count 4.13, Mean Corpuscular Volume 94.2, Mean Corpuscular Hemoglobin 27.6, Mean Corpuscular Hemoglobin Concent 29.3 L, Red Cell Distribution Width 18.6 H, Neutrophils (%) (Auto) 71.8 H, Lymphocytes (%) (Auto) 15.5 L, Monocytes (%) (Auto) 9.7 H, Eosinophils (%) (Auto) 2.2, Basophils (%) (Auto) 0.4, Neutrophils # (Auto) 3.3, Lymphocytes # (Auto) 0.7 L, Monocytes # (Auto) 0.4, Eosinophils # (Auto) 0.1, Basophils # (Auto) 0.0 Assessment/Plan 73-year-old female with past medical history of end-stage renal disease on hemodialysis Mon, Mon, Monday, systolic and diastolic congestive heart failure, hypertension, diabetes, CAD, dyslipidemia, 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 Work up in the ED showed that the pateint has elevated lipase and some epigastric tenderness so the pateint was admitted for concern for acute pancreatitis and work up for her right uppr back pain and right arm pain. Right shoulder blade pain and right arm pain possibly musculoskeletal vs radiculopathy CT angio of the chest in June did not show any thoracic aortic aneurysm will get CT cervical spine Elevated lipase Patient does not have any abdominal complaints except for some intermittent nausea. No abdominal pain, has good appetite CT abdomen and pelvis did not show any pancreatic inflammation I think this is due to her renal failure. She radha not have pancreatitis. ESRD with hyperphosphatemia continue [facility] contacted will dialyze tomorrow. Systolic and diastolic CHF due to ischemic cardiomyopathy clinically looks compensated. will continue to monitor. Hypertension with hypertensive urgency Bp now uncontrolled . It seems her Bp is uncontrolled at home too. It may be aggravated now due to pain. will increase hydralazine to tid and coreg to bid. Diabetes sugars well controlled will continue levemir and lispr as per sliding scale. CAD s/p CABG continue ASA, Plavix, betablocker and statin. Bilateral Bronchiectasis with b/l calcified granulomas with mediastinal lymphadenopathy and chronic fibrosis and infiltrates of the lower lobes left > right stable since 2013 No hypoxia. Hyperlipiemia continue statin Anemia of Chronic disease hh at goal management as per nephrology Chronic back pain Spinal stenosis with h/o lumber laminectomy H/o CVA with residual right hemiparesis and slurred speech Sleep disordered breathing in nocturnal pulse oximetry Plan / VTE VTE Prophylaxis Ordered?: Yes ERIKA LAWSON MD Sep 09, 2018 18:26
[2018-09-09 19:00] VITALS: BP 196/91
--- NOTE | 2018-09-09 19:29 | REPVR ---
EXAM: CT Cervical Spine Without Contrast EXAM DATE/TIME: 09/09/2018 6:20 PM CLINICAL HISTORY: 73 years old, female; Pain; Other: Back; Additional info: Back pain with radiculopathy to the right arm TECHNIQUE: Imaging protocol: Axial computed tomography images of the cervical spine without contrast. Coronal and sagittal reformatted images were created and reviewed. Radiation optimization: All CT scans at this facility use at least one of these dose optimization techniques: automated exposure control; mA and/or kV adjustment per patient size (includes targeted exams where dose is matched to clinical indication); or iterative reconstruction. COMPARISON: US Duplex,carotid (complete) 06/06/2017 8:09 PM FINDINGS: No traumatic segmental malalignment of cervical spine or craniocervical junction. Vertebral body height is maintained at all levels. No acute fracture. No destructive or blastic cervical spine osseous lesion. Disc height is decreased at C5-6 and to a lesser extent C6-7 with marginal endplate osteophytes and uncovertebral osteophytes. Mild osseous spinal canal narrowing C5-6 and C6-7 and mild osseous neural foraminal stenosis at these levels secondary to uncovertebral arthropathy.. Prevertebral soft tissues demonstrate no asymmetry. No concerning abnormality of the imaged lung apices. IMPRESSION: No acute fracture or traumatic subluxation of the cervical spine. Mild spinal canal and osseous foraminal stenosis C5-6 and C6-7 secondary to degenerative changes outlined above. Consider MRI if clinically warranted, since CT is not considered diagnostic for evaluating radiculopathy outside of acute trauma Electronically signed by: Alvin Logan On 09/09/2018 19:28:40 PM
--- NOTE | 2018-09-09 19:32 | REPVR ---
EXAM: CT Thoracic Spine Without Contrast EXAM DATE/TIME: 09/09/2018 6:20 PM CLINICAL HISTORY: 73 years old, female; Pain; Other: Back; Additional info: Back pain with radiculopathy to the right arm TECHNIQUE: Imaging protocol: Axial computed tomography images of the thoracic spine without intravenous contrast. Coronal and sagittal reformatted images were created and reviewed. Radiation optimization: All CT scans at this facility use at least one of these dose optimization techniques: automated exposure control; mA and/or kV adjustment per patient size (includes targeted exams where dose is matched to clinical indication); or iterative reconstruction. COMPARISON: No relevant prior studies available. FINDINGS: No segmental malalignment of the vertebral bodies. Vertebral body height is maintained. No fracture or destructive process. Multi-level, age-related thoracic degenerative disc disease is present. No osseous spinal canal narrowing or osseous neural foraminal compromise No paraspinous soft tissue mass or focal soft tissue edema. Bilateral dependent pleural effusions are present with adjacent atelectasis and cardiac enlargement. IMPRESSION: No fracture or other acute abnormality involving the thoracic spine. Multilevel mild degenerative disc disease without osseous spinal canal narrowing Electronically signed by: Alvin Logan On 09/09/2018 19:32:01 PM
[2018-09-09 20:00] VITALS: BP 195/86
[2018-09-09] MEDS: PRAVASTATIN 20 MG TAB PO SCH (20:45)
[2018-09-09] MEDS: CARVedilol 6.25 MG TAB PO SCH (20:45)
[2018-09-09] MEDS: ASPIRIN 81 MG ENTERIC TAB PO SCH (20:45)
[2018-09-09] MEDS: LEVEMIR (INSULIN DETEMIR) 1 UNITS/0.01ML SC SCH (20:46)
[2018-09-09 21:00] VITALS: BP 181/86
[2018-09-09 22:00] VITALS: BP 166/72
[2018-09-09] MEDS: RAMELTEON 8 MG TAB (ROZEREM) PO PRN (22:37)
[2018-09-09 23:00] VITALS: BP 158/68
[2018-09-10] VITALS (11 sets, daily range): BP systolic 141–189; BP diastolic 65–88
[2018-09-10] MEDS: **hydrALAZINE HCL** 25 MG TAB PO SCH ×3 (00:18→15:26)
[2018-09-10 05:08] LABS: BASO % 0.4 % (0.0-1.0); EOS # 0.2 10^3/uL (0.0-0.50); EOS % 3.4 % (0.0-3.0); HEMOGLOBIN 11.1 g/dl (12.0-15.5); LYMPH # 1.4 10^3/uL (1.5-4.5); LYMPH % 26.8 % (24.0-44.0); MEAN CORPUSCULAR HEMOGLOBIN 27.5 pg (27.0-33.0); MEAN CORPUSCULAR HGB CONC 29.2 g/dl (32.0-36.5); MEAN CORPUSCULAR VOLUME 94.1 fl (80.0-96.0); MONO # 0.5 10^3/uL (0.0-0.8); MONO % 9.5 % (0.0-5.0); NEUTROPHILS # 3.1 10^3/uL (1.8-7.7); NEUTROPHILS % 59.5 % (36.0-66.0); PLATELET COUNT, AUTOMATED 138 10^3/uL (150-450); RED BLOOD COUNT 4.04 10^6/uL (4.00-5.40); WHITE BLOOD COUNT 5.3 10^3/uL (4.0-10.0)
[2018-09-10 05:45] LABS: CALCIUM LEVEL 8.4 MG/DL (8.8-10.2); CREATININE FOR GFR 9.62 MG/DL (0.55-1.30); GLOMERULAR FILTRATION RATE 5.2 (>39); POTASSIUM SERUM 4.7 MEQ/L (3.5-5.1)
[2018-09-10] MEDS: HumaLOG INSULIN (NovoLOG) PER UNIT SC SCH ×4 (06:54→20:58)
[2018-09-10] MEDS: (RENVELA) SEVELAMER **CARBONate** 800 MG TAB PO SCH ×3 (06:55→18:21)
[2018-09-10] MEDS: CARVedilol 6.25 MG TAB PO SCH (06:55)
[2018-09-10] MEDS: OMEPRAZOLE 20 MG CAP PO SCH (06:56)
--- NOTE | 2018-09-10 07:59 | REP ---
CT CHEST WITHOUT CONTRAST: HISTORY: Shortness of breath. Comparison chest CT study July 20, 2018. The patient gives history of CVA and end-stage renal failure on dialysis. CT FINDINGS: There are multiple pulmonary nodules some of which are calcified granulomas and some of which are noncalcified. They are unchanged from the May 12, 2018 prior study. There are scattered advanced pulmonary fibrotic areas in the lower lobes bilaterally and in the right middle lobe. There is some bronchiectasis in the right middle lobe associated with this fibrosis. These findings are unchanged as well. There is a small left pleural effusion which was present previously and appears to be unchanged. An even smaller right pleural effusion is again noted. The heart is quite enlarged, no pericardial effusion. Advanced vascular calcification is observed. No new pulmonary infiltrate. The visualized upper abdominal structures are unremarkable. IMPRESSION: Small bilateral pleural effusions again noted left greater than right unchanged from the May 11, 2018 and July 20, 2018 prior studies. Scattered stable pulmonary nodules bilaterally. Vascular calcification prior sternotomy. Scattered areas of pulmonary fibrosis at the bases again noted. Electronically Signed by Quirino Moreno MD 09/10/2018 08:37 A
--- NOTE | 2018-09-10 08:00 | REP ---
CT abdomen and pelvis without IV or oral contrast: History: Abdomen pain. Comparison CT abdomen study July 20, 2018. Findings: Liver and spleen are normal in size and homogeneous in texture. No abnormalities noted in the gallbladder. No pancreatic mass or cyst is seen. Atrophic kidneys are seen without evidence of hydronephrosis or mass. No retroperitoneal mass or adenopathy is observed. There is moderate formed stool in the proximal and distal colon. Scattered right colonic diverticulosis is seen. No CT evidence of diverticulitis. No obstructive gastrointestinal lesion is seen. Extensive vascular calcification is noted. There are advanced degenerative disc changes at L3-4 and L4-5. The patient is status post laminectomy in the lumbar spine. No abdominal wall defect is seen. Impression: Moderate colonic stool. Scattered diverticulosis changes. No acute abdominal abnormality. Bilateral renal atrophy. Electronically Signed by Quirino Moreno MD 09/10/2018 08:37 A
--- NOTE | 2018-09-10 09:00 | IPNPDOC ---
Date Seen The patient was seen on 09/10/18. Progress Note SUBJECTIVE: Ms. Acosta, a 73-year-old female, was seen today at hemodialysis. She states that she is having nausea and a severe headache that she rated at a 8/10 and states that the pain is behind her eyes and also at the back of her head. She requested a pain pill. She states that the pain and nausea started approximately 1 hour previous while she was at dialysis. She states that she is having mild epigastric pain that is associated with the nausea. She states that she is still having some pain over the right shoulder blade, right neck and right upper extremity which is slightly improved from yesterday. She denies chest pain, shortness of breath, vomiting, change in bowel habits, fever, and chills. OBJECTIVE PHYSICAL EXAMINATION: VITAL SIGNS: Please see below. GENERAL: Patient is seen at hemodialysis laying in bed, mildly uncomfortable due to headache, AAOx3, speaking in full sentences, no acute distress HEENT: NC, AT, moist mucous membranes CARDIOVASCULAR: Regular rate and rhythm, Normal S1S2, no murmurs, rubs or gallops RESPIRATORY: Mild rales b/l at lung bases right > left, breath sounds diminished at lung bases ABDOMINAL: Normal bowel sounds in all quadrants, no tenderness to palpation, no rebound, rigidity or guarding, no masses or hepatosplenomegaly appreciated EXTREMITIES: AVF of left upper extremity, no clubbing, edema, or cyanosis PSYCHOLOGICAL: Appropriate affect LABORATORY DATA, IMAGING STUDIES, MICROBIOLOGY: Please see below. IMAGING: -Chest x-ray 09/09: Cardiomegaly with vascular congestion and slight blunting of the pleural angles. Increased lung markings in the bases may be subsegmental atelectasis and/or bibasilar infiltrate. Prior sternotomy. Brachiocephalic vein stent. -Chest CT 09/09: Small bilateral pleural effusions again noted left greater than right unchanged from the May 11, 2018 and July 20, 2018 prior studies. Scattered stable pulmonary nodules bilaterally. Vascular calcification prior sternotomy. Scattered areas of pulmonary fibrosis at the bases again noted. -Abdomen/Pelvis CT 09/09: Moderate colonic stool. Scattered diverticulosis changes. No acute abdominal abnormality. Bilateral renal atrophy. -Thoracic Spine CT 09/09: No fracture or other acute abnormality involving the thoracic spine. Multilevel mild degenerative disc disease without osseous spinal canal narrowing -Cervical Spine CT 09/09: No acute fracture or traumatic subluxation of the cervical spine. Mild spinal canal and osseous foraminal stenosis C5-6 and C6-7 secondary to degenerative changes outlined above. 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 Patient was found to have elevated lipase and epigastric tenderness and patient was admitted for concern for acute pancreatitis and workup of back and right shoulder pain. . PROBLEMS: 1. Right shoulder blade pain and right arm pain -possibly musculoskeletal vs radiculopathy -CT angio of the chest in June did not show any thoracic aortic aneurysm -Thoracic and Cervical CT results above -Cervical spine MRI and right shoulder MRI pending -Will work with PT and evaluate for shoulder strength 2. Headache and nausea -Pain control with Acetaminophen and Tramadol -Reglan for nausea -Unlikely to be infectious, afebrile, WBC count normal, no chills -Will monitor pain 3. Elevated lipase -Patient does not have any abdominal complaints except for some intermittent nausea and mild epigastric pain -CT abdomen and pelvis did not show any pancreatic inflammation -Likely secondary to renal failure 4. ESRD with hyperphosphatemia -Continue sevelemer -Nephrology contacted, hemodialysis today 5. Systolic and diastolic CHF -Due to ischemic cardiomyopathy -Clinically looks compensated. -Will continue to monitor. 6. Hypertension with hypertensive urgency -Blood pressure improved with HD, c/w blood pressure monitoring and adjust medications as needed -Increased hydralazine to tid and coreg to bid. 7. Diabetes -Well controlled -Will continue levemir and lispr as per sliding scale. 8. CAD s/p CABG -continue ASA, Plavix, beta shante and statin. 9. Bilateral Bronchiectasis with b/l calcified granulomas with mediastinal lymphadenopathy and chronic fibrosis and infiltrates of the lower lobes left > right stable since 2013 -No hypoxia, stable 10. Hyperlipiemia -Continue statin 11. Anemia of Chronic disease -hh at goal -management as per nephrology 12. Chronic back pain -Spinal stenosis with h/o lumber laminectomy 13. H/o CVA with residual right hemiparesis and slurred speech 14. Sleep disordered breathing in nocturnal pulse oximetry DISPOSITION: Patient had hemodialysis today and blood pressure is improved. Will c/w increased frequency of blood pressure medications and monitor. Patient endorses headache and nausea, c/w pain control and anti-emetic. MRI of cervical spine and right shoulder pending. Work with PT to evaluate shoulder strength. Attending Note I have personally seen and evaluated the patient this am. I agree with the finding and the plan of care as documented above with the following addendum/ amendment Patient continues to complain of intermittent right shoulder and right arm pain will get a MRI of the cervical spine and the shoulder. VS, I&O, 24H, Fishbone Vital Signs/I&O Vital Signs Date Time Temp Pulse Resp B/P (MAP) Pulse Ox O2 Delivery O2 Flow Rate FiO2 09/10/18 06:55 73 169/76 09/10/18 04:00 97.5 18 100 09/10/18 03:00 2.0 09/09/18 17:00 Room Air I&O- Last 24 Hours up to 6 AM 09/10/18 05:59 Intake Total 360 ml Balance 360 ml Laboratory Data 24H LABS Laboratory Tests 2 09/09/18 12:32: Immature Granulocyte % (Auto) 0.4, White Blood Count 4.5, Red Blood Count 4.13, Hemoglobin 11.4L, Hematocrit 38.9, Mean Corpuscular Volume 94.2, Mean Corpuscular Hemoglobin 27.6, Mean Corpuscular Hemoglobin Concent 29.3L, Red Cell Distribution Width 18.6H, Platelet Count 103L, Neutrophils (%) (Auto) 71.8H, Lymphocytes (%) (Auto) 15.5L, Monocytes (%) (Auto) 9.7H, Eosinophils (%) (Auto) 2.2, Basophils (%) (Auto) 0.4, Neutrophils # (Auto) 3.3, Lymphocytes # (Auto) 0.7L, Monocytes # (Auto) 0.4, Eosinophils # (Auto) 0.1, Basophils # (Auto) 0.0, Nucleated Red Blood Cells % (auto) 0.0, Anion Gap 11, Glomerular Filtration Rate 5.7L, Calcium Level 8.7L, Aspartate Amino Transf (AST/SGOT) 25, Alanine Aminotransferase (ALT/SGPT) 22, Alkaline Phosphatase 89, Total Bilirubin 0.3, Direct Bilirubin < 0.1, Total Creatine Kinase 140, Creatine Kinase MB 3.5, Creatine Kinase MB Relative Index 2.50, Troponin I 0.03, Total Protein 7.8, Albumin 3.8, Albumin/Globulin Ratio 0.95L, Amylase Level 220H, Lipase 937H 09/09/18 18:21: Bedside Glucose (Misc Panel) 144H 09/09/18 20:42: Bedside Glucose (Misc Panel) 165H 09/10/18 04:27: Immature Granulocyte % (Auto) 0.4, White Blood Count 5.3, Red Blood Count 4.04, Hemoglobin 11.1L, Hematocrit 38.0, Mean Corpuscular Volume 94.1, Mean Corpuscular Hemoglobin 27.5, Mean Corpuscular Hemoglobin Concent 29.2L, Red Cell Distribution Width 18.6H, Platelet Count 138L, Neutrophils (%) (Auto) 59.5, Lymphocytes (%) (Auto) 26.8, Monocytes (%) (Auto) 9.5H, Eosinophils (%) (Auto) 3.4H, Basophils (%) (Auto) 0.4, Neutrophils # (Auto) 3.1, Lymphocytes # (Auto) 1.4L, Monocytes # (Auto) 0.5, Eosinophils # (Auto) 0.2, Basophils # (Auto) 0.0, Nucleated Red Blood Cells % (auto) 0.0, Anion Gap 8, Glomerular Filtration Rate 5.2L, Calcium Level 8.4L, Blood Urea Nitrogen 63H, Creatinine 9.62*H, Sodium Le arik 137, Potassium Level 4.7, Chloride Level 100, Carbon Dioxide Level 29 09/10/18 06:49: Bedside Glucose (Misc Panel) 73L CBC/BMP Laboratory Tests 09/09/18 12:32 Red Blood Count 4.13, Mean Corpuscular Volume 94.2, Mean Corpuscular Hemoglobin 27.6, Mean Corpuscular Hemoglobin Concent 29.3 L, Red Cell Distribution Width 18.6 H, Neutrophils (%) (Auto) 71.8 H, Lymphocytes (%) (Auto) 15.5 L, Monocytes (%) (Auto) 9.7 H, Eosinophils (%) (Auto) 2.2, Basophils (%) (Auto) 0.4, Neutrophils # (Auto) 3.3, Lymphocytes # (Auto) 0.7 L, Monocytes # (Auto) 0.4, Eosinophils # (Auto) 0.1, Basophils # (Auto) 0.0 09/10/18 04:27 Red Blood Count 4.04, Mean Corpuscular Volume 94.1, Mean Corpuscular Hemoglobin 27.5, Mean Corpuscular Hemoglobin Concent 29.2 L, Red Cell Distribution Width 18.6 H, Neutrophils (%) (Auto) 59.5, Lymphocytes (%) (Auto) 26.8, Monocytes (%) (Auto) 9.5 H, Eosinophils (%) (Auto) 3.4 H, Basophils (%) (Auto) 0.4, Neutrophils # (Auto) 3.1, Lymphocytes # (Auto) 1.4 L, Monocytes # (Auto) 0.5, Eosinophils # (Auto) 0.2, Basophils # (Auto) 0.0, Calcium Level 8.4 L MARYANNE WARREN OMS-3 Sep 10, 2018 09:00 ERIKA LAWSON MD Sep 10, 2018 14:21
[2018-09-10] MEDS: SENOKOT S TAB PO SCH (10:31)
[2018-09-10] MEDS ORDERED: HEPARIN 1,000 UNITS/ML 10ML VIAL (FOR RADIOLOGY& DIALYSIS ONLY) IV ONE (12:15)
[2018-09-10] MEDS ORDERED: LIDOCAINE 1% SDV 5 ML VIAL SQ ONE (12:15)
[2018-09-10] MEDS ORDERED: ACETAMINOPHEN TAB 650MG DOSE (2X325MG) PO PRN (14:00)
[2018-09-10] MEDS ORDERED: METOCLOPRAMIDE INJ 10MG/2ML VIAL (J2765) IV ONE (14:00)
[2018-09-10] MEDS ORDERED: traMADol 50 MG TAB PO PRN (16:45)
[2018-09-10] MEDS ORDERED: METOCLOPRAMIDE INJ 10MG/2ML VIAL (J2765) IV PRN (17:30)
[2018-09-10] MEDS ORDERED: EXCEDRIN MIGRAINE TABLET PO PRN (17:30)
[2018-09-10] MEDS ORDERED: CARVedilol 3.125 MG TAB PO ONE (19:00)
--- NOTE | 2018-09-10 20:27 | ECGEPIP ---
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
[2018-09-10] MEDS: PRAVASTATIN 20 MG TAB PO SCH (20:57)
[2018-09-10] MEDS: ASPIRIN 81 MG ENTERIC TAB PO SCH (20:57)
[2018-09-10] MEDS: LEVEMIR (INSULIN DETEMIR) 1 UNITS/0.01ML SC SCH (20:58)
[2018-09-10] MEDS: RAMELTEON 8 MG TAB (ROZEREM) PO PRN (20:58)
--- NOTE | 2018-09-10 21:32 | CR ---
DATE OF CONSULTATION: 09/10/2018 REASON FOR CONSULTATION: End-stage renal disease on hemodialysis. CONSULTING PHYSICIAN: Dr. Carlton Daniel. HISTORY OF PRESENT ILLNESS: Mrs. Acosta is a 73-year-old female with a past medical history of end-stage renal disease on hemodialysis Monday, Monday and Monday, history of systolic and diastolic congestive heart failure, hypertension, diabetes, coronary artery disease, dyslipidemia, and a history of cerebrovascular accident with a right-sided hemiparesis. The patient was seen in the [facility] emergency department for a complaint of right upper back pain that radiated to the shoulder blades. At that time, the patient was found to have an elevated lipase and had subsequently received imaging, which did not demonstrate any significant findings. The patient was admitted with suspicion of pancreatitis although this has been found to be unlikely, due to patient's tolerating diet and not having any imaging or symptoms suggestive of pancreatitis. Today, the patient was seen and examined at bedside in hemodialysis. Patient states that she continues to have right shoulder pain which she rated as a 6-7/10. She states that it does radiate down her arm a little bit; however, it has improved since she has been here. She denies any abdominal pain. She states that she is tolerating a diet well. Patient states that she has been compliant with hemodialysis as an outpatient. Nephrology has been consulted for management of her hemodialysis while hospitalized ALLERGIES: Patient states she has an allergy to some STATINS, although she can take pravastatin. PAST MEDICAL HISTORY: 1. Combined systolic and diastolic congestive heart failure. 2. Hypertension. 3. End-stage renal disease on hemodialysis since February 2015. 4. Anemia of chronic disease. 5. Coronary artery disease status post coronary artery bypass graft (CABG). 6. Bilateral bronchiectasis with bilateral calcified granulomas and mediastinal lymphadenopathy. 7. Diabetes mellitus type 2. 8. Chronic back pain. 9. Dyslipidemia. 10. History of cerebrovascular accident with right-sided hemiparesis and slurred speech. 11. Status post lumbar laminectomy. 12. Ischemic cardiomyopathy. SURGICAL HISTORY: 1. Left upper arm atriovenous fistula. 2. Coronary artery bypass grafting. 3. Status post lumbar spinal laminectomy at L2, L3 and L4 at [facility] in January 2018. 4. Fistulagram with dilation of the arteriovenous fistula (AVF). FAMILY HISTORY: Mother is of congestive heart failure. Father is of heart disease as well. Patient has siblings. She has four children who are alive and well. SOCIAL HISTORY: Patient denies smoking. She denies alcohol use. She denies any illicit or intravenous (IV) drug use. INPATIENT MEDICATIONS: - acetaminophen 650 mg every 6 hours as needed for pain or fever - omeprazole 40 mg by mouth daily - Senokot-S two tablets by mouth daily - ramelteon 8 mg by mouth nightly as needed - pravastatin 80 mg by mouth nightly - carvedilol 6.25 mg by mouth twice a day - aspirin 81 mg by mouth nightly - insulin Detemir 10 units nightly - Renvela 1600 mg Monday, Monday - Colace 100 mg by mouth daily as needed - hydralazine 25 mg by mouth every 8 hours REVIEW OF SYSTEMS: CONSTITUTIONAL: Patient denies chills, fevers, night sweats, weight loss or weight gain. HEENT: Patient denies any headaches, vision changes, difficulty swallowing. SKIN: Patient denies any rash or lesions. PULMONARY: Patient denies any cough or shortness of breath. CARDIOVASCULAR: Patient reports chest pain, although chest pain is located on the right. GASTROINTESTINAL: Patient denies nausea, vomiting, diarrhea or constipation. HEMATOLOGIC: Patient denies any easy bruising or bleeding. MUSCULOSKELETAL: Patient reports neck pain, back pain, should pain located on the right radiating down the right side of her arm. PSYCHIATRIC: Patient denies any depression or anxiety. PHYSICAL EXAMINATION: VITAL SIGNS: Temperature is 97.8, pulse is 76, respiratory rate 19, blood pressure 150/78, pulse oximetry is 98% on room air. GENERAL EXAM: Patient is awake, alert and oriented. She is lying in bed in the hemodialysis room receiving dialysis. She appears not to be in distress. HEENT: Eyes are nonicteric. Trachea is midline. Mucous membranes are pink and moist. CARDIOVASCULAR: Regular rate and rhythm. Normal S1, S2. No clicks, rubs or murmurs. PULMONARY: Clear vesicular breath sounds bilaterally with mild crackles at the bases. ABDOMEN: Soft, nondistended, nontender to palpation. All four quadrants normal bowel sounds. EXTREMITIES: Patient has an arteriovenous fistula in the left upper extremity. No edema in bilateral lower extremities. PSYCHIATRIC: Mood and affect appear appropriate. LABORATORY DATA: White blood cell 5.3, hemoglobin 11.1, hematocrit 38, platelet count 138. Chemistry: Sodium 137, potassium 4.7, chloride 100, CO2 29, BUN 63, creatinine 9.62, fasting glucose 90, calcium 8.4. ASSESSMENT AND PLAN: 1. End-stage renal disease on hemodialysis Monday, Monday, Monday. Patient currently receives hemodialysis Monday, Monday, Monday. Will continue with her current dialysis schedule. She is receiving dialysis today. Patient has a history of hyperphosphatemia. Will continue her on sevelamer. 2. Elevated lipase. Patient presented with elevated lipase, which was originally thought to be pancreatitis. CT imaging did not demonstrate any pancreatic edema or signs suggestive of pancreatitis. Patient currently has an appetite and denies any abdominal pain. Her elevated lipase is likely secondary to end-stage renal disease. 3. Hypertensive urgency. Patient's blood pressure is currently under control. She is currently on hydralazine and Coreg. Recommend continuation. 4. Anemia. Patient has anemia likely secondary to her end-stage renal disease. Currently stable. Will continue to monitor. MTDD
[2018-09-10] MEDS: **hydrALAZINE** 50 MG TAB PO SCH (23:50)
--- NOTE | 2018-09-11 00:20 | REP ---
MRI CERVICAL SPINE WITHOUT CONTRAST: HISTORY: Right shoulder pain and paresthesias. Neck pain. Comparison CT study of the cervical spine is from 09/09/2018. TECHNIQUE: Sagittal and axial T1- and T2-weighted scans are acquired in the usual fashion with and without fat saturation. Sequences include spin echo, turbo spin echo, and STIR imaging sequences. MRI FINDINGS: There is straightening of the normal cervical lordosis. STIR images show no evidence to suggest ligament disruption or occult fracture. There is a cyst in the superior half of the T1 vertebral body posteriorly with well-defined margins 9 mm in diameter. This is associated with degenerative disc disease at the C7-T1 disc level. This is visualized on CT as well. There is a vacuum phenomenon in the C7-T1 disc. There are reactive marrow changes on either side of the C5-6 disc space as well. There is diffuse degenerative spondylosis. Craniocervical junction is unremarkable. Axial and sagittal images taken at the C2-3 disc level show left-sided uncovertebral spurring at C2-3 producing neural foraminal encroachment. At C3-4, there is also mild left-sided uncovertebral spurring. No focal disc protrusion is seen. At C4-5, there is mild facet hypertrophy bilaterally. There is a left posterior focal disc protrusion effacing the ventral subarachnoid space and subtly flattening the ventral margin of the cord. Diffuse bulging of the remainder of the disc margin is seen. There is mild central canal stenosis at the C4-5 level due to this as well as some ligamentum flavum hypertrophy. The midline AP dimension of the thecal sac at C4-5 is 7.5 mm. No abnormal cord signal is appreciated. There is mild bilateral uncovertebral spurring. At C5-6, there is diffuse posterior disc bulging and osteophytic ridging. Moderate bilateral uncovertebral spurring is present. There is bilateral neural foraminal encroachment. There is minimal central canal stenosis at C5-6. AP dimension of the thecal sac at this level in the midline is 8.1 mm. At C6-7, there is mild diffuse disc bulging. Mild bilateral uncovertebral spurring is seen. At the C7-T1 level, there is a 2 mm anterolisthesis and diffuse disc bulging is seen. No central canal stenosis is seen. IMPRESSION: Degenerative disc disease at each level from C4-5 through C7-T1. Multilevel uncovertebral spurring and neural foraminal narrowing. Mild central canal stenosis at C4-5 and C5-6. Electronically Signed by Quirino Moreno MD 09/11/2018 07:46 A
[2018-09-11 04:00] VITALS: BP 158/72
[2018-09-11 05:21] LABS: BASO % 0.5 % (0.0-1.0); EOS # 0.1 10^3/uL (0.0-0.50); EOS % 1.9 % (0.0-3.0); HEMATOCRIT 33.6 % (36.0-47.0); HEMOGLOBIN 10.1 g/dl (12.0-15.5); LYMPH % 15.7 % (24.0-44.0); MEAN CORPUSCULAR HEMOGLOBIN 26.9 pg (27.0-33.0); MEAN CORPUSCULAR HGB CONC 30.1 g/dl (32.0-36.5); MEAN CORPUSCULAR VOLUME 89.4 fl (80.0-96.0); MONO # 0.6 10^3/uL (0.0-0.8); NEUTROPHILS # 4.6 10^3/uL (1.8-7.7); NEUTROPHILS % 71.4 % (36.0-66.0); PLATELET COUNT, AUTOMATED 117 10^3/uL (150-450); RED BLOOD COUNT 3.76 10^6/uL (4.00-5.40); WHITE BLOOD COUNT 6.4 10^3/uL (4.0-10.0)
[2018-09-11 05:45] LABS: CALCIUM LEVEL 7.6 MG/DL (8.8-10.2); CREATININE FOR GFR 7.22 MG/DL (0.55-1.30); GLOMERULAR FILTRATION RATE 7.2 (>39); POTASSIUM SERUM 4.6 MEQ/L (3.5-5.1)
[2018-09-11] MEDS: HumaLOG INSULIN (NovoLOG) PER UNIT SC SCH (07:24)
[2018-09-11] MEDS: **hydrALAZINE** 50 MG TAB PO SCH (07:25)
[2018-09-11] MEDS: (RENVELA) SEVELAMER **CARBONate** 800 MG TAB PO SCH (07:25)
[2018-09-11 07:30] VITALS: BP 153/72
[2018-09-11] MEDS: SENOKOT S TAB PO SCH (08:40)
[2018-09-11] MEDS: OMEPRAZOLE 20 MG CAP PO SCH (08:40)
[2018-09-11 08:41] VITALS: BP 139/70
[2018-09-11] MEDS ORDERED: CARVedilol 12.5 MG TAB PO SCH (09:00)
[2018-09-11] MEDS ORDERED: CARVedilol 3.125 MG TAB PO SCH (09:00)
[2018-09-11] MEDS ORDERED: CARV12.5 PO (10:02)
[2018-09-11] MEDS ORDERED: HYDR50TA PO (10:26)
--- NOTE | 2018-09-11 12:35 | IPN ---
DATE: 09/11/2018 SUBJECTIVE: The patient was seen and examined today. She currently has no new complaints. The plan is for her to be discharged home with outpatient dialysis tomorrow. The patient has no new complaints and states that she is feeling well. She states that her right sided pain is still present; however, more tolerable. PHYSICAL EXAMINATION: VITAL SIGNS: Temperature is 98.6, pulse is 72, respiratory rate 18, blood pressure 150/72, pulse oximetry is 94% on room air. GENERAL EXAM: Patient is awake, alert and oriented. She is currently ambulating with a walker around the intensive care unit (ICU). She is conversive and does not appear to be in any acute distress. She has her friend with her. HEENT: Eyes are nonicteric. Trachea is midline. Mucous membranes are pink and moist. CARDIOVASCULAR: Regular rate and rhythm. Normal S1, S2. No clicks, rubs or murmurs. The patient has a left sided fistula. PULMONARY: Clear vesicular breath sounds bilaterally with mild crackles at the bases. No wheezes or rhonchi. ABDOMEN: Soft, nondistended, nontender to palpation in all four quadrants. Normal bowel sounds. EXTREMITIES: Patient has an arteriovenous fistula in the left upper extremity. No edema in bilateral lower extremities. PSYCHIATRIC: Mood and affect appear appropriate. LABORATORY DATA: White blood cell 6.4, hemoglobin 10.1, hematocrit 32.6, platelet count 117. Chemistry: Sodium 138, potassium 4.6, chloride 102, carbon dioxide 32, BUN 42, creatinine 7.2, fasting glucose 116, calcium 7.6. ASSESSMENT AND PLAN: 1. End-stage renal disease on hemodialysis Monday, Monday, Monday. Patient currently receives hemodialysis Monday, Monday, Monday. She received dialysis yesterday. The plan is for discharge today with outpatient followup in the dialysis center tomorrow. Patient has a history of hyperphosphatemia. She is continued on sevelamer on discharge. 2. Elevated lipase. Patient had an elevated lipase, which was originally thought to be pancreatitis by primary team. The patient's elevated lipase is felt to be related to end-stage renal disease. 3. Hypertensive urgency. Patient's blood pressure is currently under control. She will continue her outpatient antihypertensive. 4. Anemia. Patient has anemia likely secondary to her end-stage renal disease. She is stable. [facility]
--- NOTE | 2018-09-11 18:17 | DS.PDOC ---
Discharge Summary General Date of Admission Sep 09, 2018 at 16:05 Date of Discharge 09/11/18 Attending Physician: ERIKA LAWSON MD Specialist/Consultants Involve: CAROLINA JOHN DO Discharge Summary PROCEDURES PERFORMED DURING STAY: HD ADMITTING DIAGNOSES: 1. Hypertensive urgency 2. Right shoulder pain DISCHARGE DIAGNOSES: 1. Hypertensive urgency 2. Right shoulder pain-musculoskeletal and radiculopathic 3. Elevated Lipase-likely 2/2 ESRD Systolic and diastolic CHF Hypertension Diabetes Dyslipidemia CVA with residual right paresis and starts patient Spinal stenosis lumbar laminectomy 01/2018 Ischemic cardiomyopathy ESRD on HD since Feb 2015, MWF Anemia of Chronic disease CAD s/p CABG Bilateral Bronchiectasis with b/l calcified granulomas with mediastinal lymphadenopathy and chronic fibrosis and infiltrates of the lower lobes left > right stable since 2013 Chronic back pain H/o CVA with residual right hemiparesis and slurred speech Spinal stenosis with lumber laminectomy Sleep disordered breathing in nocturnal pulse oximetry COMPLICATIONS/CHIEF COMPLAINT: Hypertensive Urgency Rt Upper Limb Pain. HISTORY OF PRESENT ILLNESS: 73-year-old female presented to ER for right upper shoulder pain radiating to the back into the shoulder plates sister for the past 4 days. She described as sharp and radiating down the arm as well. Pain was constant, 8 out of 10 severity. Of note her lipase was elevated in 900s on admission, but no signs of pancreatitis on imaging and pt had no abd pain or discomfort. HOSPITAL COURSE: Pt was admitted, imaging did not reveal any thoracic aortic aneurysm. MRI of the C-spine revealed degenerative changes. Of note, her lipase was found to be elevated, however patient was asymptomatic and there are no signs of pancreatic inflammation on CT of abdomen. This was deemed 2/2 her renal failure. For her ESRD, nephrology continue dialysis inpatient. Of note patient was hypertensive on admission with sbp ~190, however asymptomatic. Blood pressure improved after dialysis and adjusting home meds and getting her right shoulder pain under control. She was scheduled for an MRI of the right shoulder as well, however she refused, stating "I can't be in there that long". She felt much improved and was requesting to leave. She is medically stable. Stable throughout her stay without complications. No fevers or chills or elevated white count. She was discharged home with instructions to follow-up outpatient with her regular doctors and return to ER for an emergency. MED CHANGES: On discharge, her carvedilol was increased to 12.5 MG twice a day, and hydralazine was increased to 50 g by mouth every 8 hours previously was on carvedilol 6.25 MG by mouth daily at bedtime and hydralazine 25 mg by mouth daily at bedtime. DISCHARGE MEDICATIONS: Please see below. ALLERGIES: Please see below. PHYSICAL EXAMINATION ON DISCHARGE: VITAL SIGNS: Please see below. GENERAL: NAD, A&Ox3 HEENT: nc, at, EOMI NECK: supple, no JVD CARDIOVASCULAR EXAMINATION: RRR, normal S1 S2 RESPIRATORY EXAMINATION: CTAB, no w/r/r ABDOMINAL EXAMINATION: soft, nt/nd, normoactive bowel sounds EXTREMITIES: 2+ pulses b/l, no cyanosis or edema. AVF left arm SKIN: no visible rash or lesions, warm, dry NEUROLOGICAL EXAMINATION: no focal deficits, able to move all extremities LABORATORY DATA: Please see below. IMAGING: * 09/09/2018 CXR: Cardiomegaly with vascular congestion and slight blunting of the pleural angles. Increased lung markings in the bases may be subsegmental atelectasis and/or bibasilar infiltrate. Prior sternotomy. Brachiocephalic vein stent. * 09/09/[address]: Small bilateral pleural effusions again noted left greater than right unchanged from the May 11, 2018 and July 20, 2018 prior studies. Scattered stable pulmonary nodules bilaterally. Vascular calcifica tion prior sternotomy. Scattered areas of pulmonary fibrosis at the bases again noted. * 09/09/2018 CT abdomen and pelvis: Moderate colonic stool. Scattered diverticulosis changes. No acute abdominal abnormality. Bilateral renal atrophy. * 09/09/2018 CT thoracic spine: No fracture or other acute abnormality involving the thoracic spine. Multilevel mild degenerative disc disease without osseous spinal canal narrowing * 09/09/2018 CT cervical spine: No acute fracture or traumatic subluxation of th e cervical spine. Mild spinal canal and osseous foraminal stenosis C5-6 and C6-7 secondary to degenerative changes outlined above. Consider MRI if clinically warranted, since CT is not considered diagnostic for evaluating radiculopathy outside of acute trauma * 09/10/2018 MRI C-spine: Degenerative disc disease at each level from C4-5 through C7-T1. Multilevel uncovertebral spurring and neural foraminal narrowing. Mild central canal stenosis at C4-5 and C5-6. PROGNOSIS: good ACTIVITY: As tolerated. DIET: consistent carb, 2g sodium DISPOSITION: home DISCHARGE INSTRUCTIONS: 1. Follow-up with PCP within a week 2. Return to ER for emergency 3. Continue regular HD DISCHARGE CONDITION: Stable. TIME SPENT ON DISCHARGE: 35 minutes. Vital Signs/I&Os Vital Signs Date Time Temp Pulse Resp B/P (MAP) Pulse Ox O2 Delivery O2 Flow Rate FiO2 09/11/18 08:41 84 139/70 09/11/18 07:30 98.6 18 94 09/11/18 04:00 2.0 09/09/18 17:00 Room Air I&O- Last 24 Hours up to 6 AM 09/11/18 06:00 Intake Total 1120 ml Output Total 2000 ml Balance -880 ml Laboratory Data Labs 24H Laboratory Tests 2 09/10/18 18:14: Bedside Glucose (Misc Panel) 135H 09/10/18 20:53: Bedside Glucose (Misc Panel) 167H 09/11/18 05:06: Immature Granulocyte % (Auto) 0.5, White Blood Count 6.4, Red Blood Count 3.76L, Hemoglobin 10.1L, Hematocrit 33.6L, Mean Corpuscular Volume 89.4, Mean Corpuscular Hemoglobin 26.9L, Mean Corpuscular Hemoglobin Concent 30.1L, Red Cell Distribution Width 18.4H, Platelet Count 117L, Neutrophils (%) (Auto) 71.4H, Lymphocytes (%) (Auto) 15.7L, Monocytes (%) (Auto) 10.0H, Eosinophils (%) (Auto) 1.9, Basophils (%) (Auto) 0.5, Neutrophils # (Auto) 4.6, Lymphocytes # (Auto) 1.0L, Monocytes # (Auto) 0.6, Eosinophils # (Auto) 0.1, Basophils # (Auto) 0.0, Nucleated Red Blood Cells % (auto) 0.0, Anion Gap 4L, Glomerular Filtration Rate 7.2L, Blood Urea Nitrogen 42H, Creatinine 7.22H, Sodium Level 138, Potassium Level 4.6, Chloride Level 102, Carbon Dioxide Level 32, Calcium Level 7.6L 09/11/18 07:19: Bedside Glucose (Misc Panel) 75L CBC/BMP Laboratory Tests 09/11/18 05:06 Red Blood Count 3.76 L, Mean Corpuscular Volume 89.4, Mean Corpuscular Hemoglobin 26.9 L, Mean Corpuscular Hemoglobin Concent 30.1 L, Red Cell Distribution Width 18.4 H, Neutrophils (%) (Auto) 71.4 H, Lymphocytes (%) (Auto) 15.7 L, Monocytes (%) (Auto) 10.0 H, Eosinophils (%) (Auto) 1.9, Basophils (%) (Auto) 0.5, Neutrophils # (Auto) 4.6, Lymphocytes # (Auto) 1.0 L, Monocytes # (Auto) 0.6, Eosinophils # (Auto) 0.1, Basophils # (Auto) 0.0, Calcium Level 7.6 L FSBS Laboratory Tests Test 09/10/18 18:14 09/10/18 20:53 09/11/18 07:19 Range/Units Bedside Glucose (Misc Panel) 135 167 75 83-110 MG/DL Discharge Medications Scheduled Aspirin (Aspirin EC) 81 Mg Tablet.dr, 81 MG PO QHS, (Reported) Carvedilol (Carvedilol) 12.5 Mg Tablet, 12.5 MG PO BID Denosumab Injection (Prolia) 60 Mg/1 Ml Syringe, 60 MG SC EVERY SIX MONTHS, (Reported) HAD INJECTION IN JULY Hydralazine HCl (Hydralazine HCl) 50 Mg Tablet, 50 MG PO Q8H Insulin Glargine (Lantus) 100 Unit/Ml Inj, 1 DOSE INJ QHS, (Reported) USUALLY AROUND 10 UNITS - ADJUSTS BASED ON SUGAR Multivitamins (Thera M Plus Tablet) 1 Tab Tab, 1 TAB PO QHS, (Reported) Pravastatin Sodium (Pravastatin Sodium) 80 Mg Tablet, 80 MG PO QHS, (Reported) Sevelamer Carbonate (Sevelamer Carbonate) 800 Mg Tablet, 1,600 MG PO BIDWM, (Reported) Ubidecarenone/Vit E Acet (Co Q-10 100 mg Softgel) 100 Mg Cap, 100 MG PO QHS, (Reported) Scheduled PRN Cyclobenzaprine HCl (Cyclobenzaprine HCl) 5 Mg Tab, 5 MG PO Q6H PRN for MUSCLE SPASMS, (Reported) Docusate Sodium (Colace) 100 Mg Cap, 100 MG PO DAILY PRN for CONSTIPATION, (Reported) Lidocaine/Prilocaine (Lidocaine-Prilocaine Cream) 2.5%/2.5% Cream..g., 1 DOSE TOP DAILY PRN for PAIN, (Reported) APPLIES TO [place] Menthol (Bengay) 5% Gel..gram., 1 APLCT TOP QHS PRN for PAIN, (Reported) Omeprazole (Omeprazole) 40 Mg Capsule.dr, 40 MG PO DAILY PRN for HEARTBURN, (Reported) Tramadol HCl (Tramadol HCl) 50 Mg Tab, 100 MG PO Q6H PRN for PAIN, (Reported) PT STATES SHE TOOK 100MG AT 03:00 AND 06:00 ON 09/09/18 Allergies Coded Allergies: [id number] Reductase Inhibitor (Verified Allergy, Unknown, PAIN, ) PT SAYS SHE CAN TAKE PRAVASTATIN GME ATTESTATION GME ATTESTATION My faculty preceptor for this patient encounter was physically present during the encounter and was fully available. All aspects of the patient interview, examination, medical decision making process, and medical care plan development were reviewed and approved by the faculty preceptor. The faculty preceptor is aware and concurs with the plan as stated in the body of this note and will attest to such by his/her cosignature. ATTENDING NOTE I saw and examined the patient. I agree with the finding and the plan of care as documented in the resident's note. I spent 35 mins in counselling the patient and coordinating the discharge. KIM IZAGUIRRE DO Sep 11, 2018 18:17 ERIKA LAWSON MD Sep 11, 2018 19:51
== END 2018-09-11 11:55 | disposition home or self-care (01) | DRG 73 ==
LOC: M ED 12:29 → M ED INP 16:05 → M ICU 17:19
PROVIDERS: ADMIT Internal Medicine Nephrology; ATTEND Internal Medicine Nephrology
PROC: 5A1D70Z Performance of Urinary Filtration, Intermittent, Less than 6 Hours Per Day (ICD-10-PCS; principal; 2018-09-10)
DX: M54.12 Radiculopathy, cervical region (principal); N18.6 End stage renal disease; I50.42 Chronic combined systolic (congestive) and diastolic (congestive) heart failure; I69.351 Hemiplegia and hemiparesis following cerebral infarction affecting right dominant side; I13.2 Hypertensive heart and chronic kidney disease with heart failure and with stage 5 chronic kidney disease, or end stage renal disease; M48.02 Spinal stenosis, cervical region; E11.22 Type 2 diabetes mellitus with diabetic chronic kidney disease; I25.10 Atherosclerotic heart disease of native coronary artery without angina pectoris; E78.5 Hyperlipidemia, unspecified; E83.39 Other disorders of phosphorus metabolism; M25.511 Pain in right shoulder; I69.328 Other speech and language deficits following cerebral infarction; I16.0 Hypertensive urgency; I25.5 Ischemic cardiomyopathy; D63.1 Anemia in chronic kidney disease; J84.10 Pulmonary fibrosis, unspecified; J47.9 Bronchiectasis, uncomplicated; M48.061 Spinal stenosis, lumbar region without neurogenic claudication; G47.9 Sleep disorder, unspecified; Z95.1 Presence of aortocoronary bypass graft; Z99.2 Dependence on renal dialysis; Z79.82 Long term (current) use of aspirin; Z79.4 Long term (current) use of insulin; Z79.899 Other long term (current) drug therapy; Z88.8 Allergy status to other drugs, medicaments and biological substances

== ENCOUNTER → 2018-11-08 | Outpatient (CLI) | payer MEDICARE, BC ==
[~2018-11-08] MED LIST changes: +BUPIVACAINE HCL 0.5% 10 ML VIAL As Ordered ONE; +HYDR1TAB33 PO; -HYDRO50TAB PO; +ISOVUE-300 61% 50ML VIAL (Q9967) As Ordered ONE; +LIDOCAINE 2% MDV 20 ML VIAL As Ordered ONE; +MIDAZOLAM INJ 2 MG/2 ML VIAL (J2250) As Ordered ONE; +OMEP-221 PO; +PROL60SO SC; +diphenhydrAMINE INJ 50MG/ML VIAL (J1200) As Ordered ONE; +fentaNYL 100 MCG/2 ML INJECTION (J3010) As Ordered ONE
[2018-11-08 14:15] VITALS: BP 192/89
--- NOTE | 2018-11-14 14:16 | ROOPDOC ---
[facility] Report Of Operation Report of Operation DATE OF PROCEDURE: 11/08/2018 PREOPERATIVE DIAGNOSIS: End-stage renal disease. Dysfunctional left basilic vein transposition autogenous arteriovenous fistula. Pain with cannulation, previous requirement for angioplasty due to recurrent stenosis. POSTOPERATIVE DIAGNOSIS: End-stage renal disease. Dysfunctional left basilic vein transposition autogenous arteriovenous fistula. With cannulation, previous requirement for angioplasty due to recurrent stenosis. PROCEDURE: Left basilic vein transposition arteriovenous fistulogram. Retrograde left brachial artery angiogram. Left basilic vein angioplasty with 10 mm x 80 mm balloon. Left axillary vein angioplasty with 10 mm x 80 mm balloon. SURGEON: Dr. Vy Dillard M.D. PHYSICAL METALLURGIST: Niraj Do INDICATION: Patient is a 73-year-old female with end-stage renal disease who dialyzes through a left basilic vein transposition arteriovenous fistula. Patient has had previous angioplasty of the basilic vein and axillary vein junction due to recurrent stenosis. Patient now presents with complaints of pain during cannulation especially in the upper arm. Patient will undergo a left basilic vein transposition arteriovenous fistulogram with possible angioplasty, stent and/or atherectomy. Procedure was described and explained to the patient in detail including drawing of pictures demonstrating the pertinent anatomy and description of the procedure. Risks, benefits and alternative treatment options were discussed with the patient. Benefits included but were not limited to improved functioning of the arteriovenous fistula and maintained patency. Alternative treatment options included but were not limited to no intervention. Risks included but were not limited to infection, bleeding, loss of arteriovenous access, steal syndrome, possible need for open surgical interve ntion, anesthetic complications, allergic reaction or complication from the prepping and draping materials, allergic reaction or complication from the contrast, pain, scarring of the skin, hematoma formation, bruising, possible need for transfusion of blood products, cerebrovascular accident, myocardial infarction, pulmonary embolus, deep venous thrombosis, loss of limb, loss of li fe, poor results and poor outcome. Risks of not performing the procedure included but were not limited to need to use the tunneled central venous catheter for hemodialysis and inability to use the fistula with possible loss of the fistula. Patient's questions were answered. Patient voices understanding of these risks, benefits and alternative treatment options. Patient voices acceptance of these risks associated with the procedure and consents to proceed with a fistulogram with possible angioplasty, atherectomy and/or stenting. There were no promises or guarantees made to the patient regarding the results and/or outcome of the procedure. ANESTHESIA: Local with sedation with 2 mg of Versed, 100 g of fentanyl and 2 mL of 2% lidocaine mixed with 0.5% Marcaine. SEDATION TIME: 12:19 PM to 12:46 PM for a total of 27 minutes. The sedation was administered by myself through the access in the arteriovenous fistula. The cardiopulmonary monitoring during sedation was performed by the registered nurse in the room who was attending the case. Administration of sedation and cardiopulmonary monitoring were performed under my direct supervision and direction. I was present for and directed the entire case. There were no sedation related complications. Patient was stable post sedation and returned to pre-sedation status. ESTIMATED BLOOD LOSS: 10 mL. IV FLUIDS: 120 mL. FLUORO TIME: 1.6 minutes CONTRAST: 4 mL. of Isovue 300 HEPARIN: None PROTAMINE: None COMPLICATIONS: None DRAINS: None. SPECIMENS: None. IMPLANTS: None PROCEDURE: Patient was taken to the angiography suite, placed supine on the angiography room table and then prepped and draped in a standard surgical fashion. A procedural time-out was conducted by myself and the team members involved in the procedure confirming the correct patient, procedure and laterality. The left basilic vein transposition arteriovenous fistula was then cannulated with a micro-puncture needle after anesthetizing the overlying skin and subcutaneous tissue with 2% lidocaine mixed with 0.5% Marcaine. A micropuncture wire was advanced through the micropuncture needle which was up- sized to a micropuncture sheath. A fistulogram was performed showing an approximate 80% stenosis at the junction of the basilic vein and axillary vein. A Alves wire was advanced through the micropuncture sheath, through the fistula and into the central venous system. The micropuncture sheath was removed and exchanged for a 6 Greek sheath over the Alves wire. The basilic vein was then underwent angioplasty with a 10 mm x 80 mm balloon. The axillary vein was then underwent angioplasty with a 10 mm x 80 mm balloon. A completion fistulogram was then performed showing resolution of the stenosis and improved size and flow through the fistula outflow tract. The retrograde brachial artery angiogram was performed during inflation of the balloon within the cephalic vein. This showed the remainder of the basilic vein to be widely patent to the arteriovenous anastomosis. There was no stenosis at the arteriovenous anastomosis. The sheath was removed and a 2-0 Prolene pursestring suture was placed at the puncture site for hemostasis. Dressings were then applied. Patient tolerated the procedure well. All instrument, sponge and needle counts were correct at the end of the case. There were no complications. Dr. Dillard was present for and directed the entire case. Patient was transferred to the recovery area and subsequently discharged home once the 2-0 Prolene pursestring suture was removed and good hemostasis noted. The findings and results of the procedure were discussed with the patient in detail in the postprocedure holding area with all of his questions being answered. RADIOLOGIC SUPERVISION AND INTERPRETATION: The fistulogram showed the basilic vein and axillary vein junction to have a 80 percent stenosis. The basilic vein and axillary vein underwent angioplasty with a 10 mm x 80 mm balloon with prolonged inflation time. The completion fistulogram showed resolution of the stenosis with excellent flow through the basilic vein and axillary vein. The retrograde brachial artery angiogram showed the remainder of the basilic vein from the puncture site to the anastomosis to be widely patent with no stenosis in the arteriovenous anastomosis and good flow proximal and distal to the arterial venous anastomosis within the brachial artery.. CONCLUSION:The fistula was pulsatile prior to the intervention had a strongly palpable thrill at the completion of the intervention. PLAN: Patient will require repeat fistulogram in 3-4 months pending functioning of the fistula. Paul Dillard MD Nov 09, 2018 07:30
== END ==
LOC: M IRPRO 11:05
PROVIDERS: ATTEND Surgery Vascular Surgery
DX: T82.898A Other specified complication of vascular prosthetic devices, implants and grafts, initial encounter (principal); N18.6 End stage renal disease; I13.2 Hypertensive heart and chronic kidney disease with heart failure and with stage 5 chronic kidney disease, or end stage renal disease; E11.22 Type 2 diabetes mellitus with diabetic chronic kidney disease; D63.1 Anemia in chronic kidney disease; I50.9 Heart failure, unspecified; I25.10 Atherosclerotic heart disease of native coronary artery without angina pectoris; M48.00 Spinal stenosis, site unspecified; E78.5 Hyperlipidemia, unspecified; Z86.73 Personal history of transient ischemic attack (TIA), and cerebral infarction without residual deficits
CPT/HCPCS: 36902; C1725; C1769; C1894; J2250; J3010; Q9967

== ENCOUNTER → 2018-11-16 | Outpatient (CLI) | payer MEDICARE, BC ==
[~2018-11-16] MED LIST changes: -BUPIVACAINE HCL 0.5% 10 ML VIAL As Ordered ONE; -ISOVUE-300 61% 50ML VIAL (Q9967) As Ordered ONE; -LIDOCAINE 2% MDV 20 ML VIAL As Ordered ONE; -MIDAZOLAM INJ 2 MG/2 ML VIAL (J2250) As Ordered ONE; -diphenhydrAMINE INJ 50MG/ML VIAL (J1200) As Ordered ONE; -fentaNYL 100 MCG/2 ML INJECTION (J3010) As Ordered ONE
--- NOTE | 2018-11-16 12:09 | REP ---
CHEST, TWO VIEWS: Two views of the chest is performed and compared to prior studies dating back to 07/03/2018. There is cardiomegaly again noted unchanged. Pulmonary venous hypertension is again noted. The mediastinal silhouette is unchanged. Multiple sternal wires and mediastinal clips are present. A stent overlies the aortic arch. Right upper lobe nodule is stable. Bibasilar fibrosis appear stable. No definite superimposed acute infiltrate is seen, however, subtle acute basilar infiltrate could easily be obscured by the extensive fibrosis. There are mild degenerative changes of the spine. IMPRESSION: Cardiomegaly with venous hypertension and chronic fibrosis. No definite superimposed acute abnormality. Electronically Signed by Bebeto Tripp MD 11/16/2018 06:45 P
== END ==
LOC: M SMT 10:58
PROVIDERS: ATTEND Nurse Practitioner Family
DX: I51.7 Cardiomegaly (principal); I87.309 Chronic venous hypertension (idiopathic) without complications of unspecified lower extremity

== ENCOUNTER → 2019-02-21 | Outpatient (CLI) | payer MEDICARE, BC ==
[~2019-02-21] MED LIST changes: +GABA-1171 PO; -INSULADS INJ; +INSULADS SC; +ISOVUE-300 61% 50ML VIAL (Q9967) As Ordered ONE; +LIDOCAINE 1% MDV 20ML VIAL As Ordered ONE; +MIDAZOLAM INJ 2 MG/2 ML VIAL (J2250) As Ordered ONE; +OMEP-172 PO; -OMEP20CA4 PO; -OMEP40CA2 PO; +OMEP40CA97 PO; +PATIENT COMMENTS; +fentaNYL 100 MCG/2 ML INJECTION (J3010) As Ordered ONE
--- NOTE | 2019-02-21 14:02 | ROOPDOC ---
[facility] Report Of Operation Report of Operation DATE OF PROCEDURE: 02/21/19 PREPROCEDURE DIAGNOSES: End-stage renal disease with poorly functioning left upper extremity brachial basilic AV fistula and left hand swelling. POSTPROCEDURE DIAGNOSES: Same. PROCEDURE: 1. Ultrasound-guided access left basilic vein fistula 2. Left upper extremity fistulogram and central venogram 3. Angioplasty left basilic vein and axillary vein with 9 x 80 [place] balloon and 8 x 20 cutting balloon 4. Angioplasty innominate vein with existing stent with 9 x 80 [place] balloon 5. Completion venogram SURGEON: Sakina Capone MD ANESTHESIA: Local anesthesia 3 mL lidocaine. Moderate intravenous conscious sedation was administered by Dr. Capone. The patient was independently monitored by a registered nurse assigned to the Department of radiology using automated blood pressure, EKG, and pulse oximetry. The detailed sedation record is permanently started in the hospital information system. The following is the brief sedation record: Start time 13:07, stop time 13:45, Versed 1 mg IV, fentanyl 50 g IV. INDICATION FOR PROCEDURE: Ms. Acosta is a very pleasant 74-year-old patient with end-stage renal disease currently dialyzing with the left upper extremity transposed brachial basilic AV fistula. Her fistula has become increasingly pulsatile, her hand has become more and more swollen, and she is having longer bleeding times with dialysis. Risks benefits and alternatives to a left upper extremity fistulogram and potential intervention were explained to the patient and she is agreeable to proceed. Informed consent was obtained. INTERPRETATION: 1. There is widely patent inflow through the AV anastomosis and of the basilic vein which is mildly aneurysmal but overall looks great with no flow limitations. There is a stenosis at the junction between the basilic vein and the axillary vein, proximally 75%. 2. The central veins including the axillary vein and subclavian vein proximally are widely patent. The innominate vein has existing stent and there is approximately 70-80% stenosis within the stent. 3. After angioplasty of the basilic vein and axillary vein with a 9 x 80 [place] balloon, there was still residual stenosis. However, after angioplasty with an 8 x 20 cutting balloon along the length of the area of stenosis for multiple inflations, there was widely patent flow. 4. After angioplasty of the innominate stent with a 9 x 80 [place] balloon, there was widely patent flow to the central system. REPORT OF OPERATION: The patient was brought to the angiographic suite in stable condition. Her left upper extremity was prepped and draped in a sterile fashion. A timeout was performed. Local anesthesia was administered to the skin and subcutaneous tissue over the basilic vein near the AV anastomosis and a microneedle was used to access the vein under ultrasound guidance. A wire was passed through this access and the needle was removed and a micro-sheath was placed. Glidewire was advanced through the sheath into the central system under fluoroscopic guidance. It took a moment to navigate the wire through the stenosis at the proximal basilic vein axillary vein junction, but we were able to navigated all the way back to the central system. We then exchanged sheath f or 6 Haitian sheath and flushed the sheath with saline. A fistulogram and central venogram were performed. Please see interpretation above. We then introduced a 9 x 80 [place] balloon and angioplastied for 2 three-minute inflations across the distal axillary vein proximal basilic vein. There was still residual stenosis, but before exchanging the balloon for cutting balloon, we then angioplastied again with a 9 x 80 [place] balloon across the innominate vein stent for three- minute inflations. Following this, there is widely patent inflow through the central system. We then exchanged the sheath over the wire for a 7 Haitian sheath and flushed the sheath with saline. We exchanged the wire through glide cath for IV 18 wire and introduced an 8 x 20 cutting balloon to the proximal basilic vein distal axillary vein and did several inflations across the area. Our initial inflation had a significant waist, but following that initial inflation, we did not know to waist on the balloon inflations after that. Completion venogram showed widely patent inflow through the area with less than 10% residual stenosis and no flow limitation. The pulsatility in the fistula was resolved and there was an excellent thrill. We removed the balloon and the wire carefully. Local anesthesia was administered around the sheath and a Prolene suture was placed in a [id number] pattern around the sheath and the sheath was removed. The suture was secured with Steri-Strips pressure was held for 5 minutes for good hemostasis and sterile dressings were applied. The patient tolerated the procedure and the sedation well and was returned to recovery in stable condition. ESTIMATED BLOOD LOSS: Approximately 3 mL. COMPLICATIONS: None. PLAN: Okay to use fistula for dialysis. Patient to return to clinic in 1-2 months to check fistula patency, or sooner if recurrent symptoms of stenosis are noted. SAKINA CAPONE MD Feb 21, 2019 14:02
[2019-02-21 16:15] VITALS: BP 144/96
== END ==
LOC: M IRPRO 12:10
PROVIDERS: ATTEND Surgery Vascular Surgery
DX: T82.898A Other specified complication of vascular prosthetic devices, implants and grafts, initial encounter (principal); N18.6 End stage renal disease; R22.32 Localized swelling, mass and lump, left upper limb; X58.XXXA Exposure to other specified factors, initial encounter; Y93.9 Activity, unspecified; Y92.9 Unspecified place or not applicable; Y99.9 Unspecified external cause status
CPT/HCPCS: 36902; 99152; 99153; C1725; C1769; C1887; C1894; J2250; J3010; Q9967

== ENCOUNTER 2019-02-22 15:21 | Inpatient (IN) | payer MEDICARE, BC ==
[~2019-02-22] VITALS: Ht 165.1 cm; Wt 64.6 kg
[~2019-02-22 15:21] MED LIST changes: -GABA-1171 PO; -ISOVUE-300 61% 50ML VIAL (Q9967) As Ordered ONE; -LIDOCAINE 1% MDV 20ML VIAL As Ordered ONE; -MIDAZOLAM INJ 2 MG/2 ML VIAL (J2250) As Ordered ONE; -PATIENT COMMENTS; -fentaNYL 100 MCG/2 ML INJECTION (J3010) As Ordered ONE
--- NOTE | 2019-02-22 18:52 | REP ---
Clinical: Cough and dyspnea. Comparison: 11/16/2018. Findings: Cardiomegaly with diffuse bilateral infiltrates and pleural effusions consistent with cardiomegaly and CHF/pulmonary edema. Prior sternotomy, CABG, and vascular stent at the left brachiocephalic vein. Impression: Cardiomegaly with CHF and pulmonary edema. Electronically Signed by Joni Dumont MD 02/22/2019 06:44 P
[2019-02-22 19:30] LABS: BASO % 0.4 % (0.0-1.0); EOS % 0.4 % (0.0-3.0); HEMATOCRIT 34.2 % (36.0-47.0); HEMOGLOBIN 10.1 g/dl (12.0-15.5); LYMPH # 0.6 10^3/uL (1.5-5.0); LYMPH % 9.1 % (24.0-44.0); MEAN CORPUSCULAR HEMOGLOBIN 26.1 pg (27.0-33.0); MEAN CORPUSCULAR HGB CONC 29.5 g/dl (32.0-36.5); MEAN CORPUSCULAR VOLUME 88.4 fl (80.0-96.0); MONO # 0.5 10^3/uL (0.0-0.8); MONO % 7.3 % (0.0-5.0); NEUTROPHILS # 5.8 10^3/uL (1.5-8.5); NEUTROPHILS % 82.4 % (36.0-66.0); PLATELET COUNT, AUTOMATED 108 10^3/uL (150-450); RED BLOOD COUNT 3.87 10^6/uL (4.00-5.40)
[2019-02-22 19:44] LABS: INR 1.31
[2019-02-22 20:16] LABS: ALBUMIN 3.2 GM/DL (3.2-5.2); BILIRUBIN,DIRECT 0.1 MG/DL (0.0-0.2); BILIRUBIN,TOTAL 0.4 MG/DL (0.2-1.0); CALCIUM LEVEL 8.9 MG/DL (8.8-10.2); CREATININE FOR GFR 8.17 MG/DL (0.55-1.30); GLOMERULAR FILTRATION RATE 6.2 (>39); MB/CK RELATIVE INDEX 1.23 (< OR =4); THYROID STIMULATING HORMONE 2.96 uIU/ML (0.358-3.740); THYROXINE (T4) 9.3 UG/DL (4.5-12.0); TOTAL PROTEIN 7.2 GM/DL (6.4-8.2); TROPONIN I 0.05 NG/ML (< 0.10)
[2019-02-22] MEDS ORDERED: IPRATROPIUM 0.5MG/ALBUTEROL 2.5MG INH SOL UD 3ML (DUONEB)(J7620) NEB ONE (21:00)
[2019-02-22 21:45] LABS: INFLUENZA A AMPLIFICATION NEGATIVE (NEGATIVE); INFLUENZA B AMPLIFICATION NEGATIVE (NEGATIVE)
[2019-02-22] MEDS ORDERED: CARV12.5 PO (22:55)
[2019-02-22] MEDS ORDERED: HYDR-3910 PO (22:55)
[2019-02-22] MEDS ORDERED: GABA-1171 PO (22:55)
[2019-02-22] MEDS ORDERED: PATIENT COMMENTS (23:00)
[2019-02-23] MEDS ORDERED: DEXTROSE 50% 50 ML SYRINGE IV PRN (00:15)
[2019-02-23] MEDS ORDERED: GLUCAGON FOR INJ 1 MG VIAL (J1610) SC PRN (00:15)
[2019-02-23] MEDS ORDERED: GLUCOSE 4 GM CHEW TABLET PO PRN (00:15)
[2019-02-23] MEDS ORDERED: EMLA CREAM 5GM (LIDOCAINE/PRILOCAINE) TOP PRN (00:15)
[2019-02-23 01:00] VITALS: BP 139/64
--- NOTE | 2019-02-23 01:22 | HPEPDOC ---
[facility] Medical History & Physical Date of Admission Feb 23, 2019 Date of Service: Feb 23, 2019 Attending Physician: OFE KEANE MD History and Physical CHIEF COMPLAINT: cough & CP HISTORY OF PRESENT ILLNESS: 74-year-old female with past medical history of end- stage renal disease on hemodialysis, hypertension, hyperlipidemia, diabetes, coronary artery disease and CABG, presents from dialysis center for shortness of breath, cough and pleuritic chest pain. Patient has been having these symptoms for the past few days, worsening so she decided to come to the hospital after her dialysis session. She reports that her symptoms started with a cough productive of clear sputum, followed by pleuritic chest pain caused by coughing. She denies any other associated symptoms, denies fever, lower extremity edema, nausea, vomiting, abdominal pain or diarrhea. 10 point review of system is negative except for above PAST MEDICAL HISTORY: 1. End-stage renal disease on hemodialysis. 2. Hypertension. 3. Hyperlipidemia. 4. Diabetes mellitus. 5. Coronary artery disease PAST SURGICAL HISTORY: 1. CABG. 2. Hysterectomy. SOCIAL HISTORY: Smokes one pack per day for 14 years, quit 26 years ago. Denies alcohol use. Denies drug use FAMILY HISTORY: No family history of cancer or heart disease ALLERGIES: Please see below. HOME MEDICATIONS: Please see below. PHYSICAL EXAMINATION: VITAL SIGNS: Please see below. GENERAL: No distress HEENT: Normocephalic, atraumatic, moist mucous membranes NECK: Supple CARDIOVASCULAR EXAMINATION: S1, S2, no murmurs RESPIRATORY EXAMINATION: Scattered rhonchi, diminished in the bases, no wheezing ABDOMINAL EXAMINATION: Soft, nontender, nondistended, positive bowel sounds EXTREMITIES: Left upper extremity AV fistula SKIN: No rash NEUROLOGICAL EXAMINATION: Alert and oriented 3, no focal deficits PSYCHIATRIC EXAMINATION: Calm and cooperative LABORATORY DATA: See below. IMAGING: Chest x-ray with significant vascular congestion and bilateral pleural effusions MICROBIOLOGY: Please see below. ASSESSMENT: 74-year-old female with past medical history of end-stage renal disease on hemodialysis, diabetes, hypertension, hyperlipidemia and coronary artery disease status post CABG, presents with cough and pleuritic chest pain. PLAN: 1. Fluid overload versus lower respiratory tract infection. Symptoms concerning for bacterial versus viral lower respiratory tract infection, chest x-ray showing pulmonary edema and bilateral pleural effusions. Patient reports compliance with hemodialysis, underwent hemanalysis earlier today, consult nephrology in the morning for further dialysis. Given patient's cough, fever in the ED and hemodialysis status will cover empirically with vancomycin and Merrem, pro-calcitonin and blood cultures pending. Respiratory viral panel ordered 2. Diabetes mellitus. Decrease Levemir to 10 units at bedtime, sliding sale insulin before meals and at bedtime. Will adjust insulin as needed based on patient's requirements. 3. Hypertension. Continue hydralazine and beta shante 4. Coronary artery disease. Status post CABG, stable, continue optimal medical management (aspirin, statin and beta shante) 5. End-stage renal disease. On hemodialysis Monday, was in Monday, consult nephrology in the morning for further hemodialysis, followed by Dr. Daniel. Continue Renvela with meals 6. Hyperlipidemia. Continue statin DVT prophylaxis: Heparin subcutaneous. GI prophylaxis: Not needed Vital Signs Vital Signs Date Time Temp Pulse Resp B/P (MAP) Pulse Ox O2 Delivery O2 Flow Rate FiO2 02/23/19 00:30 95 93 02/23/19 00:16 99.6 158/72 (100) 02/22/19 22:51 Room Air 02/22/19 15:55 17 Laboratory Data Labs 24H Laboratory Tests 2 02/22/19 19:18: Immature Granulocyte % (Auto) 0.4, Neutrophils (%) (Auto) 82.4H, Lymphocytes (%) (Auto) 9.1L, Monocytes (%) (Auto) 7.3H, Eosinophils (%) (Auto) 0.4, Basophils (%) (Auto) 0.4, Neutrophils # (Auto) 5.8, Lymphocytes # (Auto) 0.6L, Monocytes # (Auto) 0.5, Eosinophils # (Auto) 0.0, Basophils # (Auto) 0.0, Nucleated Red Blood Cells % (auto) 0.0, Prothrombin Time 16.0H, Prothromb Time International Ratio 1.31, Anion Gap 12, Glomerular Filtration Rate 6.2L, Lactic Acid Level 1.6, Calcium Level 8.9, Total Bilirubin 0.4, Direct Bilirubin 0.1, Aspartate Amino Transf (AST/SGOT) 53H, Alanine Aminotransferase (ALT/SGPT) 43, Alkaline Phosphatase 93, Total Creatine Kinase 162, Creatine Kinase MB 2.0, Creatine Kinase MB Relative Index 1.23, Troponin I 0.05, Total Protein 7.2, Albumin 3.2, Albumin/Globulin Ratio 0.80L, Thyroid Stimulating Hormone (TSH) 2.960, Thyroxine (T4) 9.3 02/22/19 21:09: Influenza Type A (RT-PCR) NEGATIVE, Influenza Type B (RT-PCR) NEGATIVE CBC/BMP Laboratory Tests 02/22/19 19:18 Microbiology Microbiology 02/22/19 Blood Culture, Received Pending 02/22/19 Blood Culture, Received Pending Home Medications Scheduled Aspirin (Aspirin EC) 81 Mg Tablet.dr, 81 MG PO QHS Carvedilol (Carvedilol) 12.5 Mg Tablet, 12.5 MG PO BID Denosumab Injection (Prolia) 60 Mg/1 Ml Syringe, 60 MG SC EVERY SIX MONTHS HAD INJECTION IN JULY Gabapentin (Gabapentin) 100 Mg Capsule, 100 MG PO BID Hydralazine HCl (Hydralazine HCl) 25 Mg Tablet, 25 MG PO Q8H Insulin Glargine (Lantus) 100 Unit/Ml Inj, 16 UNITS SC DAILY Multivitamins (Thera M Plus Tablet) 1 Tab Tab, 1 TAB PO QHS Pravastatin Sodium (Pravastatin Sodium) 80 Mg Tablet, 80 MG PO QHS Sevelamer Carbonate (Sevelamer Carbonate) 800 Mg Tablet, 1,600 MG PO BIDWM Tramadol HCl (Tramadol HCl) 50 Mg Tab, 100 MG PO TID Ubidecarenone/Vit E Acet (Co Q-10 100 mg Softgel) 100 Mg Cap, 100 MG PO QHS Scheduled PRN Docusate Sodium (Colace) 100 Mg Cap, 100 MG PO DAILY PRN for CONSTIPATION Lidocaine/Prilocaine (Lidocaine-Prilocaine Cream) 2.5%/2.5% Cream..g., 1 DOSE TOP DAILY PRN for PAIN APPLIES TO PORT AREA Menthol (Bengay) 5% Gel..gram., 1 APLCT TOP QHS PRN for PAIN Miscellaneous Medications [Patient Comments] PATIENT STATES SHE WAS UNCOMFORTABLE AND DIDN'T KNOW WHAT MEDICATIONS SHE TAKES OR WHAT SHE HAD TAKEN TODAY. Allergies Coded Allergies: [id number]-[id number] Reductase Inhibitor (Verified Allergy, Unknown, PAIN, 07/20/18) PT SAYS SHE CAN TAKE PRAVASTATIN A-FIB/CHADSVASC A-FIB History Current/History of A-Fib/PAF?: No OFE KEANE MD Feb 23, 2019 01:22
[2019-02-23] MEDS: HumaLOG INSULIN (NovoLOG) PER UNIT SC SCH ×5 (01:59→21:00)
[2019-02-23] MEDS ORDERED: VANCOMYCIN HCL 1,000 MG, VIAL MATE ADAPTER 1 EACH in D5W 250 ML IV ONE (02:00)
[2019-02-23] MEDS: MEROPENEM INJ 500 MG in IV 1 EA IV SCH (02:24)
[2019-02-23] MEDS: **hydrALAZINE HCL** 25 MG TAB PO SCH ×3 (05:22→21:12)
[2019-02-23] MEDS: HEPARIN SOD (PORCINE) 5000 UNITS/ML VIAL SC SCH ×2 (05:22→17:01)
[2019-02-23 06:00] VITALS: BP 160/70
[2019-02-23 06:21] LABS: HEMATOCRIT 32.3 % (36.0-47.0); HEMOGLOBIN 9.6 g/dl (12.0-15.5); MEAN CORPUSCULAR HEMOGLOBIN 26.6 pg (27.0-33.0); MEAN CORPUSCULAR HGB CONC 29.7 g/dl (32.0-36.5); MEAN CORPUSCULAR VOLUME 89.5 fl (80.0-96.0); PLATELET COUNT, AUTOMATED 104 10^3/uL (150-450); RED BLOOD COUNT 3.61 10^6/uL (4.00-5.40)
--- NOTE | 2019-02-23 06:32 | PHACANCOPD ---
PHARMACY VANCOMYCIN DOSING Pt Demographics Demographics Patient Age:74 , Weight:66.500 , Gender: female Adjusted Body Weight Date: 02/23/19, Adjusted Body Weight: Kg Events Past 24 Hours Events Past 24 Hours: YES: Dialysis Vancomycin Vancomycin indication: SEPSIS/PNEUMONIA Vancomycin Target Ranges: 15-20 mcg/ml Vancomycin Load Y/N: Yes Load Dose Date Time Vancomycin Load Dose: 1GM Date: 02/23 Time: 0300 Vancomycin Dose Date: 02/23/19. Current Vancomycin Dose: Intermittent Dosing?: Yes Labs Micro Microbiology 02/23/19 Respiratory Virus Panel (PCR) ([facility]) - Final, Complete 02/22/19 Blood Culture, Received Pending 02/22/19 Blood Culture, Received Pending Creatinine Clearance Date:02/23/19. Creatinine Clearance: [6.4. Assessment and Plan Maintaining Current Dose?: Yes Reason for dose change: No Dose Change Pharmacist Note Pharmacist Note Date: 02/23/19. Pharmacist note:74 YOF,ESRD 66", 66.5KG ,SCR=8.17, CRCL=6.4.Admitted after becoming ill after dialysis. on Meropenem 500mg Q24H, and Vancomycin per protocol. Vanco 1 gm in ED 02/23@0300 w/random scheduled for 02/24 AM.then will dose per HD protocol [facility] Feb 23, 2019 06:32
[2019-02-23 06:44] LABS: BILIRUBIN,TOTAL 0.7 MG/DL (0.2-1.0); CALCIUM LEVEL 8.8 MG/DL (8.8-10.2); CREATININE FOR GFR 9.43 MG/DL (0.55-1.30); GLOMERULAR FILTRATION RATE 5.3 (>39); MAGNESIUM LEVEL 2.5 MG/DL (1.8-2.4); POTASSIUM SERUM 4.9 MEQ/L (3.5-5.1); TOTAL PROTEIN 7.2 GM/DL (6.4-8.2)
[2019-02-23] MEDS: (RENVELA) SEVELAMER **CARBONate** 800 MG TAB PO SCH ×2 (07:56→17:00)
[2019-02-23] MEDS: CARVedilol 12.5 MG TAB PO SCH ×2 (07:57→21:12)
[2019-02-23] MEDS: GABAPENTIN 100 MG CAP PO SCH ×2 (07:57→21:10)
[2019-02-23] MEDS: traMADol 50 MG TAB PO SCH ×3 (07:58→21:00)
--- NOTE | 2019-02-23 12:30 | IPNPDOC ---
Date Seen The patient was seen on 02/23/19. Progress Note SUBJECTIVE: Patient is seen and examined at the bedside this morning. She reports she does not feel very well at all. She is having trouble breathing and is feeling achy all over. She reports that she herself had to ask to end dialysis early yesterday because she was not able to tolerate the total 3 L fluid removal.. She reports she has been feeling well recently, but this acutely worsened when she went to dialysis yesterday. She has no sick contacts at home, although possibly her may have brought a virus home from work. She reports a lot of pain with coughing and production of clear sputum. OBJECTIVE PHYSICAL EXAMINATION: VITAL SIGNS: Please see below. GENERAL APPEARANCE: Laying in bed, appears stated age, no acute distress, calm, cooperative HEENT: EOMI, PERRLA, neck is supple with no thyromegaly or lymphadenopathy RESPIRATORY: Fine crackles are appreciated in the bases bilaterally, otherwise no other adventitious breath sounds are appreciated CARDIOVASCULAR: no JVD, RRR,no murmurs/rubs/gallops ABDOMEN: Soft, nontender to palpation in all four quadrants, no masses/o rganomegaly EXTREMITIES: Left upper extremity AV fistula is intact, no other clubbing, cyanosis or edema NEUROLOGICAL: No obvious focal deficits PSYCHIATRIC: normal mood/affect Skin: No rashes or ulcers. LN: No significant cervical or inguinal lymphadenopathy LABORATORY DATA, IMAGING STUDIES, MICROBIOLOGY: Please see below. Echocardiogram: none DVT prophylaxis ordered?: [facility] ASSESSMENT AND PLAN: This is a 74-year-old female with end-stage renal disease on dialysis Monday, Monday, Monday, who presented from dialysis with shortness of breath and cough, found to have diffuse bilateral infiltrates and pleural effusions concerning for pulmonary edema from fluid overload. Per Nephrology, she will undergo additional dialysis today and tomorrow for further fluid removal. PROBLEMS: 1. Shortness of breath, cough likely 2/2 fluid overload vs respiratory infection: -Plan for HD today and tomorrow for fluid removal. Patient does appear hypervolemic on exam. -CXR demonstrates -Nephrology, Dr. Connor Daniel, consulted. Appreciate recommendations. -RVP negative -Blood cultures, Procalcitonin pending -Vancomycin and Meropenem for empiric antibiotic coverage -Jessica PRN 2. ESRD: -HD and fluid removal as tolerated. Will look for Nephrology recommendations. -Continue Renvela 3. DM2: -Levemir 10U SC QHS + SSI with hypoglycemic protocol 4. HTN: -Continue home Coreg, Hydralazine 5. CAD: -Continue ASA, Pravastatin, Beta shante 6. Chronic pain: -Continue Tramadol DVT ppx: SQH DISPOSITION: pending improvement in respiratory status VS, I&O, 24H, Fishbone Vital Signs/I&O Vital Signs Date Time Temp Pulse Resp B/P (MAP) Pulse Ox O2 Delivery O2 Flow Rate FiO2 02/23/19 09:00 1.0 02/23/19 07:58 18 02/23/19 07:57 88 141/63 02/23/19 06:00 98.9 100 Nasal Cannula Laboratory Data 24H LABS Laboratory Tests 2 02/22/19 19:18: Immature Granulocyte % (Auto) 0.4, Neutrophils (%) (Auto) 82.4H, Lymphocytes (%) (Auto) 9.1L, Monocytes (%) (Auto) 7.3H, Eosinophils (%) (Auto) 0.4, Basophils (%) (Auto) 0.4, Neutrophils # (Auto) 5.8, Lymphocytes # (Auto) 0.6L, Monocytes # (Auto) 0.5, Eosinophils # (Auto) 0.0, Basophils # (Auto) 0.0, Nucleated Red Bl ood Cells % (auto) 0.0, Prothrombin Time 16.0H, Prothromb Time International Ratio 1.31, Anion Gap 12, Glomerular Filtration Rate 6.2L, Lactic Acid Level 1.6, Calcium Level 8.9, Total Bilirubin 0.4, Direct Bilirubin 0.1, Aspartate Amino Transf (AST/SGOT) 53H, Alanine Aminotransferase (ALT/SGPT) 43, Alkaline Phosphatase 93, Total Creatine Kinase 162, Creatine Kinase MB 2.0, Creatine Kinase MB Relative Index 1.23, Troponin I 0.05, Total Protein 7.2, Albumin 3.2, Albumin/Globulin Ratio 0.80L, Thyroid Stimulating Hormone (TSH) 2.960, Thyroxine (T4) 9.3 02/22/19 21:09: Influenza Type A (RT-PCR) NEGATIVE, Influenza Type B (RT-PCR) NEGATIVE 02/23/19 01:58: Bedside Glucose (Misc Panel) 183H 02/23/19 02:23: Methicillin-Resist S.aureus DNA PCR NOT DETECTED 02/23/19 05:37: Nucleated Red Blood Cells % (auto) 0.0, Anion Gap 9, Glomerular Filtration Rate 5.3L, Calcium Level 8.8, Magnesium Level 2.5H, Total Bilirubin 0.7#, Aspartate Amino Transf (AST/SGOT) 59H, Alanine Aminotransferase (ALT/SGPT) 47, Alkaline Phosphatase 93, Total Protein 7.2, Albumin 3.0L, Albumin/Globulin Ratio 0.71L CBC/BMP Laboratory Tests 02/22/19 19:18 02/23/19 05:37 Microbiology Microbiology 02/23/19 Respiratory Virus Panel (PCR) ([facility]) - Final, Complete 02/22/19 Blood Culture, Received Pending 02/22/19 Blood Culture, Received Pending GME ATTESTATION GME ATTESTATION My faculty preceptor for this patient encounter was physically present during the encounter and was fully available. All aspects of the patient interview, examination, medical decision making process, and medical care plan development were reviewed and approved by the faculty preceptor. The faculty preceptor is aware and concurs with the plan as stated in the body of this note and will attest to such by his/her cosignature. ATTENDING NOTE I have personally evaluated and examined the patient. Discussed with resident/ student regarding plan of care and agree with the above assessment and plan. ERNESTO VIGIL MD Feb 23, 2019 12:30 EDMOND FRANCISCO MD Feb 23, 2019 13:58
[2019-02-23 14:00] VITALS: BP 141/64
--- NOTE | 2019-02-23 14:39 | REP ---
Clinical: Shortness of breath. Technique: Axial noncontrast images from the thoracic inlet to the upper abdomen with coronal and sagittal re-formations. Comparison: 09/09/2018. Findings: Cardiomegaly is appreciated with small to moderate pleural effusions (left greater than right) and scattered infiltrates along with moderate left lower lobe atelectasis. Findings are consistent with CHF/pulmonary edema. Few scattered bilateral calcified and noncalcified nodular densities are again noted and likely represent sequelae of prior granulomas disease. Atherosclerotic changes to the thoracic aorta and coronary arteries noted along with evidence for prior CABG/coronary stenting and brachiocephalic vein stent. Impression: Findings compatible with CHF/pulmonary edema. Stable pulmonary nodules. Electronically Signed by Joni Dumont MD 02/23/2019 02:31 P
[2019-02-23] MEDS: **VANCO AFTER HD** MISC XX SCH (16:00)
[2019-02-23] MEDS ORDERED: DARBEPOETIN 100 MCG/0.5 ML *DIALYSIS* SYRINGE (J0882) IV SCH (16:30)
--- NOTE | 2019-02-23 17:44 | CR ---
DATE OF CONSULTATION: 02/23/2019 REQUESTING PHYSICIAN: Dr. Miller. CONSULTING PHYSICIAN: Dr. Daniel. REASON FOR CONSULTATION: Management of end-stage renal disease on hemodialysis. CHIEF COMPLAINT: Generalized malaise and shortness of breath. HISTORY OF PRESENT ILLNESS: Bree Acosta is well known to me. She is a 74-year-old female with a past medical history of end-stage renal disease on hemodialysis on a Monday, Monday, Monday schedule, history of systolic and diastolic congestive heart failure, hypertension, type 2 diabetes mellitus, coronary artery disease, dyslipidemia, and history of cerebrovascular accident with right-sided hemiparesis, and other comorbid conditions mentioned below. In the outpatient hemodialysis unit, patient has recently been complaining of increasing the shortness of breath with exertion and orthopnea. She has had chest x-ray as an outpatient that showed pleural effusions, but patient has been resistant to increased fluid removal with hemodialysis and, at times, cuts her treatments short and leaves early. She was seen in the outpatient hemodialysis unit on Monday and was complaining of increasing dyspnea on exertion along with generalized malaise and weakness, and the patient was advised to come to the emergency room at the completion of her treatment. She terminated her treatment early and arrived to the emergency room (ER). Chest x-ray in the emergency room showed pulmonary edema and pleural effusions. Patient has also been complaining of cough with clear sputum. PAST MEDICAL HISTORY: 1. End-stage renal disease on hemodialysis since February 2015. 2. Combined systolic and diastolic congestive heart failure. 3. Hypertension. 4. Anemia of chronic kidney disease. 5. Coronary artery disease status post coronary artery bypass graft (CABG). 6. Bilateral bronchiectasis with bilateral calcified granulomas and mediastinal lymphadenopathy. 7. Diabetes mellitus type 2. 8. Chronic back pain. 9. Dyslipidemia. 10. History of cerebrovascular accident with right-sided hemiparesis and status post lumbar laminectomy. 11. Ischemic cardiomyopathy. 12. Anemia of chronic renal failure. 13. Secondary hyperparathyroidism of renal origin. SURGICAL HISTORY: 1. Left upper arm arteriovenous (AV) fistula. 2. Coronary artery bypass graft (CABG) status post lumbar spinal laminectomy at L2, L3 and L4 in January 2019.. 3. Fistulogram. FAMILY HISTORY: Mother of congestive heart failure. Father is of heart disease as well. SOCIAL HISTORY: She denies smoking, alcohol or drug use. REVIEW OF SYSTEMS: CONSTITUTIONAL: She reports generalized malaise, weakness and chills and subjective fevers. EYES: She denies visual changes or tearing. ENT: She denies difficulty swallowing or rhinorrhea. SKIN: She denies any new rashes or lesions. PULMONARY: She reports dyspnea on exertion and shortness of breath and orthopnea. CARDIAC: She has a history of congestive heart failure. She denies chest pain or palpitations. GASTROINTESTINAL: She denies nausea, vomiting, diarrhea. HEMATOLOGIC: She reports history of anemia of chronic kidney disease. She denies long-term anticoagulant use. MUSCULOSKELETAL: She denies any new arthralgias. She reports generalized fatigue and chronic back pain. PSYCHIATRIC: She denies depression or anxiety. ENDOCRINE: She has a history of insulin dependent diabetes and secondary hyperparathyroidism. NEUROLOGIC: She denies seizure or syncope. HOME MEDICATIONS: Reviewed and include: - aspirin 81 mg by mouth daily - Carvedilol 12.5 mg by mouth twice a day - Prolia every 6 months - Colace 100 mg by mouth daily as needed - gabapentin 100 mg by mouth twice a day - hydralazine 25 mg by mouth every 8 hours - Lantus insulin - multivitamin - pravastatin 80 mg by mouth at bedtime - Renvela 1600 mg with meals - tramadol 100 mg by mouth three times a day - CoQ10 ALLERGIES: STATINS. Temperature 98.9, pulse 83, respiratory rate 18, blood pressure 160/70, saturating 110% on room air. Intake is not fully recorded. Dialysis today removed 3 liters. GENERAL: Patient was seen in the hemodialysis unit receiving her treatment. Elderly female, comfortable, in no acute distress. Extraocular muscles are intact. Tongue is moist. Neck is supple. Jugular veins are mildly elevated. CARDIAC: Heart sounds are regular. S1-S2. There is no edema in the legs. LUNGS: Bibasilar diminished breath sounds. Occasional rhonchus. No wheeze. ABDOMEN: Soft and nontender. There are bowel sounds. EXTREMITIES: Show left upper extremity fistula, which is patent and in use. The legs have no clubbing, cyanosis or edema. NEUROLOGIC: She is oriented x3. No focal deficit. Interactive and conversational. PSYCHIATRIC: Appropriate mood and effect. SKIN: Normal temperature and turgor. LABORATORY DATA: White count 6.0, hemoglobin 9.6. Sodium 137, potassium 4.9, bicarbonate 30, magnesium 2.5. Chest x-ray shows congestive heart failure (CHF) pattern and pleural effusion, pulmonary edema. INPATIENT MEDICATIONS: Reviewed by myself: - meropenem 500 mg IV daily - vancomycin renally dosed - aspirin 81 mg by mouth at bedtime - Carvedilol 12.5 mg by mouth twice a day - gabapentin 100 mg by mouth twice a day - heparin 5000 units subcutaneous every 12 hours - hydralazine 25 mg by mouth every 8 hours - insulin - pravastatin 80 mg by mouth at bedtime - Renvela 1600 mg by mouth with meals - tramadol 100 mg by mouth three times a day. ASSESSMENT AND PLAN: 1. End-stage renal disease on hemodialysis. The patient is fluid overloaded. She has had a complaint of dyspnea on exertion in the outpatient setting and has had lung imaging as an outpatient that did show pleural effusions. However, she had been previously refusing further aggressive fluid removal with hemodialysis in the outpatient setting. She was dialyzed on Monday. She cut her treatment short. She was dialyzed again today with 3 kg of fluid removed and I would dialyze her again on Monday for further fluid removal and optimization of her volume status, and I am putting her on a 1200 mL fluid restriction. Her electrolytes are acceptable. Her fistula is in good use. 2. Combined systolic and diastolic congestive heart failure. The patient is volume overloaded. CT chest shows moderate pleural effusions and pulmonary edema. I am not sure if any of her effusions are loculated. She is also having generalized malaise. Fluid status is regulated via hemodialysis. Patient will be dialyzed 3 days in a row, Monday, Monday and Monday, with goal fluid removal of each treatment about 3 liters. Continue oral fluid restriction. In terms of her congestive heart failure, she is also on beta shante, aspirin and statin. 3. Anemia of chronic kidney disease. Hemoglobin is slightly suboptimal but stable at 9.6. Will start Aranesp with dialysis. 4. Hypertension. Blood pressures are systolic 140-160, and should improve with further aggressive dialysis and fluid removal. I am not making any changes to her home regimen. Thank you for involving me in the care of Ms. Acosta. I will be happy to follow her along with you.
[2019-02-23] MEDS ORDERED: VANCOMYCIN HCL 750 MG, VIAL MATE ADAPTER 1 EACH in D5W 250 ML IV SCH (18:00)
[2019-02-23] MEDS: MULTIVITAMINS/MINERALS THERAP 1 TAB PO SCH (21:10)
[2019-02-23] MEDS: ASPIRIN 81 MG ENTERIC TAB PO SCH (21:10)
[2019-02-23] MEDS: LEVEMIR (INSULIN DETEMIR) 1 UNITS/0.01ML SC SCH (21:17)
[2019-02-23] MEDS: PRAVASTATIN 20 MG TAB PO SCH (21:21)
[2019-02-23 22:00] VITALS: BP 140/63
[2019-02-24] MEDS: MEROPENEM INJ 500 MG in IV 1 EA IV SCH (01:47)
[2019-02-24] MEDS: **hydrALAZINE HCL** 25 MG TAB PO SCH ×3 (05:59→21:03)
[2019-02-24] MEDS: HEPARIN SOD (PORCINE) 5000 UNITS/ML VIAL SC SCH ×2 (05:59→17:03)
[2019-02-24 06:00] VITALS: BP 132/64
[2019-02-24 06:39] LABS: VANCOMYCIN RANDOM 17.5 UG/ML
[2019-02-24] MEDS: CARVedilol 12.5 MG TAB PO SCH ×2 (06:52→21:01)
[2019-02-24] MEDS: GABAPENTIN 100 MG CAP PO SCH ×2 (06:52→21:01)
[2019-02-24] MEDS: HumaLOG INSULIN (NovoLOG) PER UNIT SC SCH ×4 (07:11→21:00)
[2019-02-24] MEDS: (RENVELA) SEVELAMER **CARBONate** 800 MG TAB PO SCH ×2 (07:17→17:02)
[2019-02-24] MEDS: traMADol 50 MG TAB PO SCH ×3 (07:17→21:02)
[2019-02-24 08:54] LABS: HEMATOCRIT 33.5 % (36.0-47.0); HEMOGLOBIN 9.7 g/dl (12.0-15.5); MEAN CORPUSCULAR HEMOGLOBIN 26.5 pg (27.0-33.0); MEAN CORPUSCULAR VOLUME 91.5 fl (80.0-96.0); PLATELET COUNT, AUTOMATED 131 10^3/uL (150-450); RED BLOOD COUNT 3.66 10^6/uL (4.00-5.40); WHITE BLOOD COUNT 6.7 10^3/uL (4.0-10.0)
[2019-02-24 08:57] LABS: ALBUMIN 2.7 GM/DL (3.2-5.2); BILIRUBIN,TOTAL 0.4 MG/DL (0.2-1.0); CALCIUM LEVEL 8.6 MG/DL (8.8-10.2); CREATININE FOR GFR 6.65 MG/DL (0.55-1.30); GLOMERULAR FILTRATION RATE 7.9 (>39); POTASSIUM SERUM 4.5 MEQ/L (3.5-5.1); TOTAL PROTEIN 6.2 GM/DL (6.4-8.2)
--- NOTE | 2019-02-24 10:50 | IPNPDOC ---
Date Seen The patient was seen on 02/24/19. Progress Note SUBJECTIVE: Patient states that she still feels terrible but have improved from yesterday. She is getting dialysis again today with plans for further fluid removal. 5 beats of V tach x2 reported overnight. No chest pain or significant SOB this morning. OBJECTIVE PHYSICAL EXAMINATION: VITAL SIGNS: Please see below. General: Alert, generalized weakness Eyes: Normal sclera, EOMI HENT: Atraumatic Cardiovascular: Normal rate Pulmonary: Nonlabored breathing, no wheezing noted GI: Soft, nontender Skin: Warm and dry Neuro: CN grossly intact. No focal deficits. Strengths equal b/l. Psych: oriented x 3 LABORATORY DATA, IMAGING STUDIES, MICROBIOLOGY: Please see below. DVT prophylaxis ordered?: HSQ ASSESSMENT AND PLAN: 1. SOB - fluid overload noted on imaging with pleural effusion and likely 2/2 respiratory infection. - Reportedly has not been completing all her HD sessions and refuse aggressive fluid removal. - Nephrology following, has been getting HD 2 days in a row since admission. - Patient reports feeling better. - duonebs PRN. On empiric vanc and silvia. - Blood cultures negative to date. Will de-escalate Abx in the next 24 hours if continue to be negative and afebrile. 2. ESRD - c/w HD per nephro recommendations. - 1200 cc fluid restriction. 3. DM - c/w levemir with ISS ACHS. 4. HTN - c/w Coreg and hydralazine 5. CAD s/p CABG - c/w ASA, statin, BB. 6. hx CVA - R. sided hemiparesis. - c/w ASA and statin. 7. Combine systolic and diastolic HF - EF 35-40% with grade 1 diastolic dysfunction. - volume overloaded and removing fluid through HD. - c/w home meds. Dispo: home once clinically improves VS, I&O, 24H, Fishbone Vital Signs/I&O Vital Signs Date Time Temp Pulse Resp B/P (MAP) Pulse Ox O2 Delivery O2 Flow Rate FiO2 02/24/19 07:40 2.0 02/24/19 06:52 75 132/64 02/24/19 06:00 97.3 18 100 Room Air I&O- Last 24 Hours up to 6 AM 02/24/19 05:59 Intake Total 1030 ml Output Total 3000 ml Balance -1970 ml Laboratory Data 24H LABS Laboratory Tests 2 02/23/19 14:28: Bedside Glucose (Misc Panel) 50L 02/23/19 15:34: Bedside Glucose (Misc Panel) 95 02/23/19 16:38: Bedside Glucose (Misc Panel) 234H 02/23/19 19:54: Bedside Glucose (Misc Panel) 154H 02/24/19 05:53: Nucleated Red Blood Cells % (auto) 0.0 02/24/19 05:55: Anion Gap 10, Glomerular Filtration Rate 7.9L, Calcium Level 8.6L, Total Bilirubin 0.4, Aspartate Amino Transf (AST/SGOT) 42H, Alanine Aminotransferase (ALT/SGPT) 53, Alkaline Phosphatase 84, Total Protein 6.2L, Albumin 2.7L, Albumin/Globulin Ratio 0.77L, Random Vancomycin Level 17.5 02/24/19 07:10: Bedside Glucose (Misc Panel) 69L CBC/BMP Laboratory Tests 02/24/19 05:53 02/24/19 05:55 Microbiology Microbiology 02/23/19 Respiratory Virus Panel (PCR) ([facility]) - Final, Complete 02/22/19 Blood Culture - Preliminary, Resulted No growth after 24 hours . All specim... 02/22/19 Blood Culture - Preliminary, Resulted No growth after 24 hours . All specim... EDMOND FRANCISCO MD Feb 24, 2019 10:50
[2019-02-24] MEDS ORDERED: LIDOCAINE 1% SDV 5 ML VIAL SQ ONE (11:30)
[2019-02-24] MEDS ORDERED: HEPARIN 1,000 UNITS/ML 10ML VIAL (FOR RADIOLOGY& DIALYSIS ONLY) IV ONE (11:30)
[2019-02-24 14:00] VITALS: BP 114/49
[2019-02-24] MEDS: **VANCO AFTER HD** MISC XX SCH (14:26)
--- NOTE | 2019-02-24 15:15 | ECGEPIP ---
[facility] - ED Test Date: 2019-02-22 Pat Name: RONNIE BRAN Department: Room: [place] [address] Gender: Female Measurement Supervisor: : [id number] Requested By: LIO Mcclellan Order Number: [id number] Reading MD: Arden Ly Measurements Intervals [place] Rate: 90 P: 75 TX: 161 QRS: 8 QRSD: 114 T: 102 QT: 366 QTc: 450 Interpretive Statements SINUS RHYTHM POSSIBLE LEFT ATRIAL ENLARGEMENT POSSIBLE ANTERIOR MYOCARDIAL INFARCTION, OF INDETERMINATE AGE PRIOR INFERIOR INFARCT NSTTW ABNORMALITIES SIMILAR TO 09/09/18 Electronically Signed on 02-24-2019 15:14:43 EST by Arden Ly
--- NOTE | 2019-02-24 17:25 | IPN ---
DATE: SUBJECTIVE: Patient was seen and examined at the bedside today morning during hemodialysis procedure. She is tolerating the hemodialysis procedure well. She reports that swelling and shortness of breath is getting better. She was dialyzed yesterday as well and she tolerated 3 liters of fluid removal. She denies any fevers and chills. OBJECTIVE: VITAL SIGNS: Temperature is 98.8 degrees Fahrenheit, blood pressure 114/49, pulse is 85, respiratory rate of 16, saturating 99% on nasal cannula at 2 liters. INTAKE AND OUTPUT: Urine output is zero. Ultrafiltration with hemodialysis yesterday was 3 liters. Weight in the bed scale was 66.5 kg yesterday. PHYSICAL EXAMINATION: GENERAL: Patient is awake, alert, oriented x3, laying in bed getting hemodialysis done. HEAD AND NECK EXAM: Patient has mild facial puffiness. Pupils are equally round and reactive to light. Neck is supple. There is moderately elevated jugular venous distention (JVD). CARDIOVASCULAR: S1, S2. Regular rate. No edema of the bilateral lower extremities. RESPIRATORY: Chest is clear to auscultation bilaterally on the upper lung zones and there is that there are mild crepitations on deep inspiration at the bases. ABDOMEN: Soft. Positive bowel sounds. Nontender. No organomegaly. MUSCULOSKELETAL: No clubbing or cyanosis. Pulses are 2+. CENTRAL NERVOUS SYSTEM (MASTER TECHNICIAN): No focal deficit. Power is 5/5 in all extremities. LABORATORY REVIEW: Complete blood count (CBC) showed a WBC of 6.7 and hemoglobin 9.7, platelets 131. Basic metabolic panel (BMP) showed sodium 139, potassium 4.5, chloride 100, bicarbonate 29, BUN 29, creatinine is 6.6, calcium 8.6. Albumin is 2.7. IMAGING: CT chest was done yesterday. It showed congestive heart failure (CHF) and pulmonary edema and stable pulmonary nodules. CURRENT INPATIENT MEDICATIONS: Patient's medications were all reviewed by me. Vancomycin has been stopped now. She continues to be on intravenous (IV) meropenem. No other change in the medications today as compared with yesterday. ASSESSMENT AND PLAN: 1. End-stage renal disease. Patient is getting dialysis today according to her regular dialysis days, Monday, Monday, Monday. Because of the holidays, she is getting the dialysis done today. Volume status is improving. 2. Acute decompensated combined systolic and diastolic congestive heart failure. Patient has low ejection fraction on the previous echocardiograms. She was fluid overloaded. She got 3 liters fluid yesterday. Another 2.5 liters of fluid will be removed today, as the patient is noncompliant with fluid restriction and medications at home. 3. Hypertension with hypertensive heart disease in end-stage renal disease. Continue current dose of Coreg and hydralazine. The patient was on isosorbide in the past as well, but she is not taking it any more. 4. Anemia in end-stage renal disease. Hemoglobin level is stable and improving. Continue current dose of Aranesp. Rest of the anemia management will be done as outpatient. 5. Chronic kidney disease/mineral bone disease. Continue current dose of Renvela 1600 mg by mouth with meals. 6. Diabetes mellitus type 2 insulin dependent. Continue current dose of insulin Levemir 10 units subcutaneous daily.
[2019-02-24] MEDS: LEVEMIR (INSULIN DETEMIR) 1 UNITS/0.01ML SC SCH (21:00)
[2019-02-24] MEDS: PRAVASTATIN 20 MG TAB PO SCH (21:01)
[2019-02-24] MEDS: ASPIRIN 81 MG ENTERIC TAB PO SCH (21:02)
[2019-02-24] MEDS: MULTIVITAMINS/MINERALS THERAP 1 TAB PO SCH (21:03)
[2019-02-24 22:00] VITALS: BP 116/50
[2019-02-25] MEDS: MEROPENEM INJ 500 MG in IV 1 EA IV SCH (01:05)
[2019-02-25] MEDS: HEPARIN SOD (PORCINE) 5000 UNITS/ML VIAL SC SCH ×3 (05:59→17:28)
[2019-02-25] MEDS: **hydrALAZINE HCL** 25 MG TAB PO SCH ×3 (05:59→21:08)
[2019-02-25 06:00] VITALS: BP 119/65
[2019-02-25 06:19] LABS: HEMATOCRIT 38.3 % (36.0-47.0); HEMOGLOBIN 10.9 g/dl (12.0-15.5); MEAN CORPUSCULAR HEMOGLOBIN 26.3 pg (27.0-33.0); MEAN CORPUSCULAR HGB CONC 28.5 g/dl (32.0-36.5); MEAN CORPUSCULAR VOLUME 92.3 fl (80.0-96.0); PLATELET COUNT, AUTOMATED 164 10^3/uL (150-450); RED BLOOD COUNT 4.15 10^6/uL (4.00-5.40); WHITE BLOOD COUNT 7.3 10^3/uL (4.0-10.0)
[2019-02-25 06:47] LABS: ALBUMIN 2.7 GM/DL (3.2-5.2); BILIRUBIN,TOTAL 0.9 MG/DL (0.2-1.0); CALCIUM LEVEL 9.2 MG/DL (8.8-10.2); CREATININE FOR GFR 5.83 MG/DL (0.55-1.30); GLOMERULAR FILTRATION RATE 9.2 (>39); POTASSIUM SERUM 4.4 MEQ/L (3.5-5.1); TOTAL PROTEIN 7.2 GM/DL (6.4-8.2)
[2019-02-25] MEDS: traMADol 50 MG TAB PO SCH ×4 (09:00→21:08)
[2019-02-25] MEDS: GABAPENTIN 100 MG CAP PO SCH ×2 (09:50→21:07)
[2019-02-25] MEDS: (RENVELA) SEVELAMER **CARBONate** 800 MG TAB PO SCH ×2 (09:50→17:28)
[2019-02-25] MEDS: HumaLOG INSULIN (NovoLOG) PER UNIT SC SCH ×4 (09:51→20:32)
[2019-02-25] MEDS: CARVedilol 12.5 MG TAB PO SCH ×2 (09:53→21:09)
--- NOTE | 2019-02-25 11:15 | IPNPDOC ---
Date Seen The patient was seen on 02/25/19. Progress Note SUBJECTIVE: Patient is seen and examined at the bedside this morning. . She is feeling much better this morning after straight days of hemodialysis with fluid removal of almost 6 L. She is breathing better and feeling well overall. I discussed the need to continue her ultrafiltration hemodialysis schedule as per her normal (Monday, Monday, Monday) today, but she refuses as she just had dialysis for the past 2 days. She did not have any fevers overnight, although she is on 2 L of oxygen. No other issues or changes overnight. OBJECTIVE PHYSICAL EXAMINATION: VITAL SIGNS: Please see below. GENERAL APPEARANCE: Laying in bed, appears stated age, no acute distress, calm, cooperative HEENT: EOMI, PERRLA, neck is supple with no thyromegaly or lymphadenopathy RESPIRATORY: very fine crackles are appreciated in the bases bilaterally, otherwise no other adventitious breath sounds are appreciated CARDIOVASCULAR: no JVD, RRR,no murmurs/rubs/gallops ABDOMEN: Soft, nontender to palpation in all four quadrants, no masses/organomegaly EXTREMITIES: Left upper extremity AV fistula is intact, no other clubbing, cyanosis or edema NEUROLOGICAL: No obvious focal deficits PSYCHIATRIC: normal mood/affect Skin: No rashes or ulcers. LN: No significant cervical or inguinal lymphadenopathy LABORATORY DATA, IMAGING STUDIES, MICROBIOLOGY: Please see below. Echocardiogram: none DVT prophylaxis ordered?: [facility] ASSESSMENT AND PLAN: This is a 74-year-old female with end-stage renal disease on dialysis Monday, Monday, Monday, who presented from dialysis with shortness of breath and cough, found to have diffuse bilateral infiltrates and pleural effusions concerning for pulmonary edema from fluid overload. Per Nephrology, she will undergo additional dialysis today and tomorrow for further fluid removal. PROBLEMS: 1. Shortness of breath, cough likely 2/2 fluid overload vs respiratory infect ion: -Patient refuses HD today per her regular schedule given that she was diuresed for fluid removal twice over the weekend. She will likely get HD tomorrow. -Lung sounds are much improved from admission -Nephrology, Dr. Kiran, consulted. Appreciate recommendations. -RVP negative -Blood cultures negative thus far, Procalcitonin found to be 4.77 on admission -s/p Vancomycin and Meropenem for empiric antibiotic coverage; will transition to oral Azithromycin today for 4 days -Jessica PRN 2. ESRD: -HD and fluid removal as tolerated. Will look for Nephrology recommendations. -Continue Renvela 3. DM2: -Levemir 10U SC QHS + SSI with hypoglycemic protocol 4. HTN: -Continue home Coreg, Hydralazine 5. CAD: -Continue ASA, Pravastatin, Beta shante 6. Chronic pain: -Continue Tramadol DVT ppx: SQH DISPOSITION: plan for HD tomorrow followed by d/c home GME ATTESTATION My faculty preceptor for this patient encounter was physically present during the encounter and was fully available. All aspects of the patient interview, examination, medical decision making process, and medical care plan development were reviewed and approved by the faculty preceptor. The faculty preceptor is aware and concurs with the plan as stated in the body of this note and will attest to such by his/her cosignature. ATTENDING NOTE I have personally evaluated and examined the patient. Discussed with resident/student regarding plan of care and agree with the above assessment and plan. VS, I&O, 24H, Fishbone Vital Signs/I&O Vital Signs Date Time Temp Pulse Resp B/P (MAP) Pulse Ox O2 Delivery O2 Flow Rate FiO2 02/25/19 09:53 82 121/61 02/25/19 06:00 98.9 17 100 Nasal Cannula 2.0 I&O- Last 24 Hours up to 6 AM 02/25/19 06:00 Intake Total 420 ml Output Total 2300 ml Balance -1880 ml Laboratory Data 24H LABS Laboratory Tests 2 02/24/19 12:41: Bedside Glucose (Misc Panel) 120H 02/24/19 16:39: Bedside Glucose (Misc Panel) 278H 02/24/19 20:46: Bedside Glucose (Misc Panel) 114H 02/25/19 05:56: Nucleated Red Blood Cells % (auto) 0.0, Anion Gap 8, Glomerular Filtration Rate 9.2L, Calcium Level 9.2, Total Bilirubin 0.9#, Aspartate Amino Transf (AST/SGOT) 61H, Alanine Aminotransferase (ALT/SGPT) 72, Alkaline Phosphatase 79, Total Protein 7.2, Albumin 2.7L, Albumin/Globulin Ratio 0.60L CBC/BMP Laboratory Tests 02/25/19 05:56 Microbiology Microbiology 02/23/19 Respiratory Virus Panel (PCR) ([facility]) - Final, Complete 02/22/19 Blood Culture - Preliminary, Resulted No Growth after 48 hours. All Specime... 02/22/19 Blood Culture - Preliminary, Resulted No Growth after 48 hours. All Specime... ERNESTO VIGIL MD Feb 25, 2019 11:15 EDMOND FRANCISCO MD Feb 25, 2019 12:07
[2019-02-25] MEDS: AZITHROMYCIN 250 MG TAB PO SCH (11:18)
[2019-02-25] MEDS ORDERED: ACETAMINOPHEN TAB 650MG DOSE (2X325MG) PO PRN (11:45)
[2019-02-25] MEDS ORDERED: SENOKOT S TAB PO PRN (11:45)
--- NOTE | 2019-02-25 11:57 | IPN ---
DATE OF SERVICE: 02/25/2019 SUBJECTIVE: The patient was seen and examined at the bedside today morning. She is afebrile, hemodynamically stable. She was dialyzed yesterday. She tolerated the hemodialysis procedure well. 2.3 liters of fluid was removed and she reports that at the end of dialysis she had some abdominal cramps. Shortness of breath is improving now. OBJECTIVE: Vital signs: Temperature is 98.9 degree Fahrenheit, blood pressure 119/65, pulse is 84, respiratory rate of 17, saturating 100% on nasal cannula at 2 liters. Intake and output ultrafiltration with hemodialysis is 2.3 liters. Weight in the bed scale is not available. PHYSICAL EXAMINATION: General: The patient is awake, alert, oriented times three, laying in bed in no apparent distress. Head and neck exam: Extraocular muscles intact. Pupils equally round and reactive to light. Mucous membranes are moist. Neck is supple. There is no jugular venous distention (JVD). Cardiovascular: S1, S2, regular rate. No edema of the bilateral lower extremities. Respiratory: Mildly decreased breath sounds at the bases with mild respiratory crackles at the bases. Abdomen: Soft, positive bowel sounds. Nontender. No organomegaly. Musculoskeletal: No clubbing or cyanosis. Pulses are 2+. CARDING SUPERVISOR: No focal deficit. Power is 5/5 in all extremities. LAB REVIEW: CBC showed a WBC of 7.3, hemoglobin 10.9, platelets of 164. BMP showed sodium 135, potassium 4.4, chloride 97, bicarb 30, BUN 29, creatinine 5.8, calcium 9.2, albumin is 2.7. CURRENT INPATIENT MEDICATIONS: The patient's medications were all reviewed by me. There is no change in the medications today as compared with yesterday. IV vancomycin and meropenem have been stopped. ASSESSMENT AND PLAN: 1. End-stage renal disease. The patient's regular dialysis days are Monday, Monday, Monday. Because of the holidays, the patient was dialyzed yesterday. Next hemodialysis will be done tomorrow morning. 2. Acute decompensated combined systolic and diastolic congestive heart failure. The patient's volume status is significantly better. She will get another dialysis tomorrow with some fluid removal. Her shortness of breath is significantly better. 3. Hypertension with hypertensive heart disease and end-stage renal disease. Continue current dose of Coreg and hydralazine. 4. Anemia in end-stage renal disease, hemoglobin level is optimal. Rest of the anemia management will be done as outpatient. 5. Disposition. The patient will be dialyzed tomorrow morning again and hopefully she should be able to be discharged after dialysis tomorrow if she is feeling better.
[2019-02-25 14:00] VITALS: BP 118/48
[2019-02-25] MEDS: **VANCO AFTER HD** MISC XX SCH (17:27)
[2019-02-25] MEDS: DOCUSATE SODIUM 100 MG CAP PO PRN (17:28)
[2019-02-25 17:41] VITALS: BP 122/59
[2019-02-25 21:03] VITALS: BP 119/58
[2019-02-25] MEDS: MULTIVITAMINS/MINERALS THERAP 1 TAB PO SCH (21:07)
[2019-02-25] MEDS: ASPIRIN 81 MG ENTERIC TAB PO SCH (21:08)
[2019-02-25] MEDS: LEVEMIR (INSULIN DETEMIR) 1 UNITS/0.01ML SC SCH (21:09)
[2019-02-25] MEDS: PRAVASTATIN 20 MG TAB PO SCH (21:09)
[2019-02-26 06:00] VITALS: BP 118/59
[2019-02-26] MEDS: HEPARIN SOD (PORCINE) 5000 UNITS/ML VIAL SC SCH ×3 (06:00→18:00)
[2019-02-26] MEDS: **hydrALAZINE HCL** 25 MG TAB PO SCH ×3 (06:33→22:00)
[2019-02-26] MEDS: CARVedilol 12.5 MG TAB PO SCH ×2 (06:33→21:34)
[2019-02-26] MEDS: AZITHROMYCIN 250 MG TAB PO SCH (06:34)
[2019-02-26] MEDS: traMADol 50 MG TAB PO SCH ×3 (06:34→21:00)
[2019-02-26] MEDS: (RENVELA) SEVELAMER **CARBONate** 800 MG TAB PO SCH ×2 (06:35→18:00)
[2019-02-26 06:37] LABS: HEMATOCRIT 37.4 % (36.0-47.0); HEMOGLOBIN 10.9 g/dl (12.0-15.5); MEAN CORPUSCULAR HEMOGLOBIN 26.7 pg (27.0-33.0); MEAN CORPUSCULAR HGB CONC 29.1 g/dl (32.0-36.5); MEAN CORPUSCULAR VOLUME 91.7 fl (80.0-96.0); PLATELET COUNT, AUTOMATED 223 10^3/uL (150-450); RED BLOOD COUNT 4.08 10^6/uL (4.00-5.40); WHITE BLOOD COUNT 7.1 10^3/uL (4.0-10.0)
[2019-02-26 07:04] LABS: ALBUMIN 2.7 GM/DL (3.2-5.2); BILIRUBIN,TOTAL 0.3 MG/DL (0.2-1.0); CALCIUM LEVEL 9.3 MG/DL (8.8-10.2); CREATININE FOR GFR 8.12 MG/DL (0.55-1.30); GLOMERULAR FILTRATION RATE 6.3 (>39); POTASSIUM SERUM 5.1 MEQ/L (3.5-5.1); TOTAL PROTEIN 7.2 GM/DL (6.4-8.2)
[2019-02-26] MEDS: HumaLOG INSULIN (NovoLOG) PER UNIT SC SCH ×4 (07:30→21:35)
[2019-02-26] MEDS: GABAPENTIN 100 MG CAP PO SCH ×2 (09:00→21:35)
[2019-02-26] MEDS ORDERED: LIDOCAINE 1% SDV 5 ML VIAL SQ ONE (12:00)
[2019-02-26] MEDS ORDERED: HEPARIN 1,000 UNITS/ML 10ML VIAL (FOR RADIOLOGY& DIALYSIS ONLY) IV ONE (12:00)
--- NOTE | 2019-02-26 12:43 | IPNPDOC ---
Date Seen The patient was seen on 02/26/19. Progress Note SUBJECTIVE: Patient is seen and examined sitting at her sink in her bathroom. Yesterday, she reported to nursing that she was feeling lethargic and sleepy. also noted that she was not herself and was very tired throughout the day. She refused HD yesterday as per her usual schedule because she had gotten it 2 days in a row over the weekend. She no longer complains of the shortness of breath she had when she was admitted. Today. She reports she feels "shaky, tired, and unstable on [her] feet." When asked if she is ready for discharge home, she states "how could you send me home in this state?" OBJECTIVE PHYSICAL EXAMINATION: VITAL SIGNS: Please see below. GENERAL APPEARANCE: Laying in bed, appears stated age, no acute distress, calm, cooperative HEENT: EOMI, PERRLA, neck is supple with no thyromegaly or lymphadenopathy RESPIRATORY: very fine crackles are appreciated in the bases bilaterally, otherwise no other adventitious breath sounds are appreciated CARDIOVASCULAR: no JVD, RRR,no murmurs/rubs/gallops ABDOMEN: Soft, nontender to palpation in all four quadrants, no mas ses/organomegaly EXTREMITIES: Left upper extremity AV fistula is intact, no other clubbing, cyanosis or edema NEUROLOGICAL: No obvious focal deficits PSYCHIATRIC: normal mood/affect Skin: No rashes or ulcers. LN: No significant cervical or inguinal lymphadenopathy LABORATORY DATA, IMAGING STUDIES, MICROBIOLOGY: Please see below. Echocardiogram: none DVT prophylaxis ordered?: [facility] ASSESSMENT AND PLAN: This is a 74-year-old female with end-stage renal disease on dialysis Monday, Monday, Monday, who presented from dialysis with shortness of breath and cough, found to have diffuse bilateral infiltrates and pleural effusions concerning for pulmonary edema from fluid overload. PROBLEMS: 1. Shortness of breath, cough likely 2/2 fluid overload vs respiratory infection: -Patient will get HD today -Lung sounds are much improved from admission -Nephrology, Dr. Kiran, consulted. Appreciate recommendations. -RVP negative -Blood cultures negative thus far, Procalcitonin found to be 4.77 on admission -s/p Vancomycin and Meropenem, Azithromycin day 2 of 4 today -DuoNebs PRN 2. ESRD: -HD and fluid removal as tolerated. Will look for Nephrology recommendations. -Continue Renvela 3. DM2: -Levemir 10U SC QHS + SSI with hypoglycemic protocol 4. HTN: -Continue home Coreg, Hydralazine 5. CAD: -Continue ASA, Pravastatin, Beta shante 6. Chronic pain: -Continue Tramadol DVT ppx: SQH DISPOSITION: - plan for HD today, she will work with with PT if she fails to progress adequately she will be transitioned to [facility] - she has been advised today of the possibility VS, I&O, 24H, Fishbone Vital Signs/I&O Vital Signs Date Time Temp Pulse Resp B/P (MAP) Pulse Ox O2 Delivery O2 Flow Rate FiO2 02/26/19 06:34 18 02/26/19 06:33 118/59 02/26/19 06:33 72 02/26/19 06:00 97.7 93 Room Air 02/25/19 20:30 2.0 I&O- Last 24 Hours up to 6 AM 02/26/19 06:00 Intake Total 580 ml Balance 580 ml Laboratory Data 24H LABS Laboratory Tests 2 02/25/19 17:13: Bedside Glucose (Misc Panel) 130H 02/25/19 20:25: Bedside Glucose (Misc Panel) 157H 02/26/19 06:19: Nucleated Red Blood Cells % (auto) 0.0, Anion Gap 8, Glomerular Filtration Rate 6.3L, Calcium Level 9.3, Total Bilirubin 0.3#, Aspartate Amino Transf (AST/SGOT) 76H, Alanine Aminotransferase (ALT/SGPT) 102H, Alkaline Phosphatase 78, Total Protein 7.2, Albumin 2.7L, Albumin/Globulin Ratio 0.60L CBC/BMP Laboratory Tests 02/26/19 06:19 Microbiology Microbiology 02/23/19 Respiratory Virus Panel (PCR) ([facility]) - Final, Complete 02/22/19 Blood Culture - Preliminary, Resulted No Growth after 72 hours. All specime... 02/22/19 Blood Culture - Preliminary, Resulted No Growth after 72 hours. All specime... GME ATTESTATION GME ATTESTATION My faculty preceptor for this patient encounter was physically present during the encounter and was fully available. All aspects of the patient interview, ex amination, medical decision making process, and medical care plan development were reviewed and approved by the faculty preceptor. The faculty preceptor is aware and concurs with the plan as stated in the body of this note and will attest to such by his/her cosignature. ATTENDING NOTE I, Mya Sultana, have independently examined this patient and performed my own p hysical exam, as well as reviewed the documentation and edited where necessary. I have discussed in detail with the resident / student the findings and plan of treatment as documented by the resident / student and edited their note. I agree with their findings and treatment plan and have edited their documentation. I will continue to follow the patient during this hospital stay. ERNESTO VIGIL MD Feb 26, 2019 12:43 MYA SULTANA MD Feb 26, 2019 15:21
[2019-02-26 16:00] VITALS: BP 117/57
[2019-02-26 21:30] VITALS: BP 93/65
[2019-02-26] MEDS: MULTIVITAMINS/MINERALS THERAP 1 TAB PO SCH (21:34)
[2019-02-26] MEDS: ASPIRIN 81 MG ENTERIC TAB PO SCH (21:34)
[2019-02-26] MEDS: DOCUSATE SODIUM 100 MG CAP PO PRN (21:34)
[2019-02-26] MEDS: PRAVASTATIN 20 MG TAB PO SCH (21:35)
[2019-02-26] MEDS: LEVEMIR (INSULIN DETEMIR) 1 UNITS/0.01ML SC SCH (21:35)
[2019-02-26 22:00] VITALS: BP 93/65
[2019-02-27] MEDS: **hydrALAZINE HCL** 25 MG TAB PO SCH ×3 (05:53→22:00)
[2019-02-27 06:00] VITALS: BP 120/58
[2019-02-27] MEDS: HEPARIN SOD (PORCINE) 5000 UNITS/ML VIAL SC SCH ×2 (06:00→17:49)
[2019-02-27] MEDS: HumaLOG INSULIN (NovoLOG) PER UNIT SC SCH ×4 (07:30→21:00)
[2019-02-27] MEDS: (RENVELA) SEVELAMER **CARBONate** 800 MG TAB PO SCH ×2 (08:00→17:46)
[2019-02-27 08:44] LABS: HEMATOCRIT 40.1 % (36.0-47.0); HEMOGLOBIN 11.2 g/dl (12.0-15.5); MEAN CORPUSCULAR HEMOGLOBIN 25.9 pg (27.0-33.0); MEAN CORPUSCULAR HGB CONC 27.9 g/dl (32.0-36.5); MEAN CORPUSCULAR VOLUME 92.8 fl (80.0-96.0); PLATELET COUNT, AUTOMATED 197 10^3/uL (150-450); RED BLOOD COUNT 4.32 10^6/uL (4.00-5.40); WHITE BLOOD COUNT 6.9 10^3/uL (4.0-10.0)
[2019-02-27] MEDS: traMADol 50 MG TAB PO SCH ×3 (09:00→21:00)
[2019-02-27] MEDS: GABAPENTIN 100 MG CAP PO SCH ×2 (09:00→22:07)
[2019-02-27] MEDS: CARVedilol 12.5 MG TAB PO SCH ×2 (09:00→22:09)
[2019-02-27 09:06] LABS: ALBUMIN 2.9 GM/DL (3.2-5.2); BILIRUBIN,TOTAL 0.3 MG/DL (0.2-1.0); CREATININE FOR GFR 6.56 MG/DL (0.55-1.30); POTASSIUM SERUM 4.5 MEQ/L (3.5-5.1); TOTAL PROTEIN 6.9 GM/DL (6.4-8.2)
--- NOTE | 2019-02-27 10:43 | IPNPDOC ---
Date Seen The patient was seen on 02/27/19. Progress Note SUBJECTIVE: Patient is seen and examined at the bedside this morning. She appears to be doing much better than yesterday. Her is also at the bedside. She reports that she has no desires to go home today. She is agreeable to work with physical therapy. She did have some episodes of hypertension yesterday evening and her BP med was held. She is feeling less lethargic today. OBJECTIVE PHYSICAL EXAMINATION: VITAL SIGNS: Please see below. GENERAL APPEARANCE: Laying in bed, appears stated age, no acute distress, calm, cooperative HEENT: EOMI, PERRLA, neck is supple with no thyromegaly or lymphadenopathy RESPIRATORY: very fine crackles are appreciated in the bases bilaterally, otherw ise no other adventitious breath sounds are appreciated CARDIOVASCULAR: no JVD, RRR,no murmurs/rubs/gallops ABDOMEN: Soft, nontender to palpation in all four quadrants, no masses/organomegaly EXTREMITIES: Left upper extremity AV fistula is intact, no other clubbing, cyanosis or edema NEUROLOGICAL: No obvious focal deficits PSYCHIATRIC: normal mood/affect Skin: No rashes or ulcers. LN: No significant cervical or inguinal lymphadenopathy LABORATORY DATA, IMAGING STUDIES, MICROBIOLOGY: Please see below. Echocardiogram: none DVT prophylaxis ordered?: [facility] ASSESSMENT AND PLAN: This is a 74-year-old female with end-stage renal disease on dialysis Monday, Monday, Monday, who presented from dialysis with shortness of breath and cough, found to have diffuse bilateral infiltrates and pleural effusions concerning for pulmonary edema from fluid overload. PROBLEMS: 1. Shortness of breath, cough likely 2/2 fluid overload vs respiratory infection: -Next HD tomorrow -Lung sounds are much improved from admission -Nephrology, Dr. Kiran, consulted. Appreciate recommendations. -RVP negative -Blood cultures negative thus far, Procalcitonin found to be 4.77 on admission -s/p Vancomycin and Meropenem, Azithromycin day 3 of 4 today -DuoNebs PRN 2. ESRD: -HD and fluid removal as tolerated. Will look for Nephrology recommendations. -Continue Renvela 3. DM2: -Levemir 10U SC QHS + SSI with hypoglycemic protocol 4. HTN: -Continue home Coreg, Hydralazine 5. CAD: -Continue ASA, Pravastatin, Beta shante 6. Chronic pain: -Continue Tramadol 7. Bowel regimen: -Patient has not had BM and complains of constipation. Docusate/senna ordered. DVT ppx: SQH DISPOSITION: - Will work with PT today. Possible dc after PT clearance; ancipitate tomorrow. VS, I&O, 24H, Fishbone Vital Signs/I&O Vital Signs Date Time Temp Pulse Resp B/P (MAP) Pulse Ox O2 Delivery O2 Flow Rate FiO2 02/27/19 06:00 97.3 69 20 120/58 (78) 100 Room Air 02/25/19 20:30 2.0 I&O- Last 24 Hours up to 6 AM 02/27/19 06:00 Intake Total 600 ml Output Total 1500 ml Balance -900 ml Laboratory Data 24H LABS Laboratory Tests 2 02/26/19 17:01: Bedside Glucose (Misc Panel) 190H 02/26/19 20:24: Bedside Glucose (Misc Panel) 335H 02/27/19 08:19: Nucleated Red Blood Cells % (auto) 0.3H, Anion Gap 10, Glomerular Filtration Rate 8.0L, Calcium Level 9.0, Total Bilirubin 0.3, Aspartate Amino Transf (AST/SGOT) 57H, Alanine Aminotransferase (ALT/SGPT) 102H, Alkaline Phosphatase 85, Total Protein 6.9, Albumin 2.9L, Albumin/Globulin Ratio 0.73L CBC/BMP Laboratory Tests 02/27/19 08:19 Microbiology Microbiology 02/23/19 Respiratory Virus Panel (PCR) ([facility]) - Final, Complete 02/22/19 Blood Culture - Preliminary, Resulted No Growth after 72 hours. All specime... 02/22/19 Blood Culture - Preliminary, Resulted No Growth after 72 hours. All specime... GME ATTESTATION GME ATTESTATION My faculty preceptor for this patient encounter was physically present during the encounter and was fully available. All aspects of the patient interview, examination, medical decision making process, and medical care plan development were reviewed and approved by the faculty preceptor. The faculty preceptor is aware and concurs with the plan as stated in the body of this note and will attest to such by his/her cosignature. ATTENDING NOTE I, Mya Sultana, have independently examined this patient and performed my own physical exam, as well as reviewed the documentation and edited where necessary. I have discussed in detail with the resident / student the findings and plan of treatment as documented by the resident / student and edited their note. I agree with their findings and treatment plan and have edited their documentation. I will continue to follow the patient during this hospital stay. ERNESTO VIGIL MD Feb 27, 2019 10:43 MYA SULTANA MD Feb 27, 2019 14:16
[2019-02-27] MEDS: AZITHROMYCIN 250 MG TAB PO SCH (11:08)
[2019-02-27] MEDS: SENOKOT S TAB PO SCH ×2 (11:09→22:07)
[2019-02-27] MEDS: MIRALAX *UNIT DOSE* 17GM PACKET PO SCH (11:09)
[2019-02-27 14:00] VITALS: BP 115/53
[2019-02-27 14:54] VITALS: BP 116/54
--- NOTE | 2019-02-27 18:53 | IPN ---
DATE: 02/26/2019 SUBJECTIVE: The patient was seen and examined at the bedside today morning during hemodialysis procedure. She is tolerating the hemodialysis procedure well. She reports that she still having some cough, and she reports weakness, and she needs to work more with the physical therapy. The patient reports that she is not ready to go home as of yet. OBJECTIVE: Vital signs: Temperature is 97.7 degrees Fahrenheit, blood pressure 118/59, pulse is 72, respiratory of 60, saturating 93% on room air. Intake and output: There is no urine output recorded. Weight in the bed scale is 65.1 kg. PHYSICAL EXAMINATION: GENERAL: The patient is awake, alert, oriented times three, lying in bed in no apparent distress. HEAD AND NECK: Extraocular muscles intact. Pupils equally round and reactive to light. Mucous membranes are moist. Neck is supple. There is mildly elevated jugular venous distention (JVD). CARDIOVASCULAR: S1, S2, regular rate. No edema of the bilateral lower extremities. RESPIRATORY: Decreased breath sounds at the bases with inspiratory crackles at the bases on deep inspiration. ABDOMEN: Soft. Positive bowel sounds. Nontender. No organomegaly. MUSCULOSKELETAL: No clubbing or cyanosis. Pulses are 2+. CENTRAL NERVOUS SYSTEM: No focal deficit. Power is 5/5 in all extremities. LABORATORY REVIEW: CBC showed WBC 7.1, hemoglobin 10.9, platelets are 123. BMP showed sodium 134, potassium 5.1, chloride 97, bicarbonate 29, BUN 38, creatinine is 8.1, calcium is 9.3. Albumin is 2.7. CURRENT INPATIENT MEDICATIONS: The patient's medications were all reviewed by me. There is no change in the medications today as compared with yesterday. She continues to be on azithromycin by mouth. ASSESSMENT: 1. End-stage renal disease. The patient's regular dialysis days are Monday, Monday, Monday; however, because of the holiday tomorrow, Monday, patients are being dialyzed today. 2. Acute decompensated combined systolic and diastolic congestive heart failure. Patient got [id number] to dialysis and fluid removal on admission. She will also get further fluid removal, at least 2.5-3 liters, as tolerated by her blood pressure 3. Hypertension with hypertensive heart disease and end-stage renal disease. Continue current dose of Coreg and hydralazine. Fluid status is optimized with dialysis. 4. Persistent cough. The patient is on azithromycin at this time. I believe the cough is secondary to pulmonary edema and congestive heart failure. 5. Anemia and end-stage renal disease. Hemoglobin level is optimized at this time with hemoglobin of 10.9. Continue Aranesp 100 mcg with dialysis. 6. Diabetes mellitus, type 2, insulin dependent. Continue current dose of insulin Levemir 10 units subcutaneous at bedtime.
--- NOTE | 2019-02-27 18:57 | IPN ---
DATE: 02/27/2019 SUBJECTIVE: The patient was seen and examined at the bedside today morning. She is afebrile, hemodynamically stable. She was dialyzed yesterday because of her low blood pressures. Only 1.5 liters of fluid was removed. She reports that cough and shortness of breath are getting better. She otherwise reports weakness and she was unable to do physical therapy today. OBJECTIVE: Vital signs: Temperature is 97 degrees Fahrenheit, blood pressure 116/54, pulse is 78, respiratory of 18, saturating 94% on room air. Intake and output: There is no urine output recorded. Weight in the bed is 64.6 kg. PHYSICAL EXAMINATION: GENERAL: The patient is awake, alert, oriented times three, lying in bed in no apparent distress. HEAD AND NECK: Extraocular muscles intact. Pupils equally round and reactive to light. Mucous membranes are moist. Neck is supple. There is no jugular venous distention (JVD). CARDIOVASCULAR: S1, S2, regular rate. No edema of the bilateral lower extremities. RESPIRATORY: Chest is clear to auscultation bilaterally. Bilateral equal air entry. No rales or rhonchi. ABDOMEN: Soft. Positive bowel sounds. Nontender. No organomegaly. MUSCULOSKELETAL: No clubbing or cyanosis. Pulses are 2+. CENTRAL NERVOUS SYSTEM: No focal deficit. Power is 5/5 in all extremities. LABORATORY REVIEW: CBC showed WBC 6.9, hemoglobin 11.2, platelets of 197. BMP showed sodium 139, potassium 4.5, chloride 101, bicarbonate 28, BUN 36, creatinine is 6.5. Albumin is 2.9. CURRENT INPATIENT MEDICATIONS: The patient's medications were all reviewed by me. She continues to be on azithromycin. Last dose will be 03/02/2019. No other change in the medications today as compared with yesterday. ASSESSMENT AND PLAN: 1. End-stage renal disease. The patient was dialyzed yesterday. She tolerated only 1.5 liter of fluid removal. Next hemodialysis will be according to her Monday, Monday, Monday on Monday. 2. Acute decompensated combined systolic and diastolic congestive heart failure. The patient's volume status is significantly better. Continue the fluid restriction at 1200 mL for 24 hours. 3. Hypertension with hypertensive heart disease and end-stage renal disease. Continue Coreg and hydralazine with holding parameters. 4. Cough and shortness of breath. The patient is empirically being given azithromycin by the primary team. Cough is improving with improvement in the volume status.
[2019-02-27] MEDS ORDERED: LEVEMIR (INSULIN DETEMIR) 1 UNITS/0.01ML SC SCH (21:00)
[2019-02-27 22:00] VITALS: BP 114/46
[2019-02-27] MEDS: PRAVASTATIN 20 MG TAB PO SCH (22:07)
[2019-02-27] MEDS: MULTIVITAMINS/MINERALS THERAP 1 TAB PO SCH (22:08)
[2019-02-27] MEDS: ASPIRIN 81 MG ENTERIC TAB PO SCH (22:09)
[2019-02-28] MEDS: HEPARIN SOD (PORCINE) 5000 UNITS/ML VIAL SC SCH ×2 (05:57→17:35)
[2019-02-28] MEDS: **hydrALAZINE HCL** 25 MG TAB PO SCH ×2 (05:57→15:02)
[2019-02-28 06:00] VITALS: BP 139/64
[2019-02-28] MEDS: HumaLOG INSULIN (NovoLOG) PER UNIT SC SCH ×4 (07:30→17:30)
[2019-02-28] MEDS: (RENVELA) SEVELAMER **CARBONate** 800 MG TAB PO SCH ×2 (08:40→17:35)
[2019-02-28] MEDS: AZITHROMYCIN 250 MG TAB PO SCH (08:40)
[2019-02-28] MEDS: GABAPENTIN 100 MG CAP PO SCH (08:41)
[2019-02-28] MEDS: traMADol 50 MG TAB PO SCH (08:41)
[2019-02-28] MEDS: CARVedilol 12.5 MG TAB PO SCH (08:41)
[2019-02-28] MEDS: MIRALAX *UNIT DOSE* 17GM PACKET PO SCH (08:41)
[2019-02-28] MEDS: SENOKOT S TAB PO SCH (08:41)
--- NOTE | 2019-02-28 10:45 | IPNPDOC ---
Date Seen The patient was seen on 02/28/19. Progress Note SUBJECTIVE: Patient is seen and examined at the bedside this morning. She is getting ready to work with PT. She reports she feels somewhat better today but still has the "shaking" and "unsteadiness" she felt when she first came in this admission. She will have dialysis today. She is not having any shortness of breath, lightheadedness or dizziness. She is eating and drinking well with no nausea/vomiting or diarrhea. OBJECTIVE PHYSICAL EXAMINATION: VITAL SIGNS: Please see below. GENERAL APPEARANCE: Laying in bed, appears stated age, no acute distress, calm, cooperative HEENT: EOMI, PERRLA, neck is supple with no thyromegaly or lymphadenopathy RESPIRATORY: very fine crackles are appreciated in the bases bilaterally, otherwise no other adventitious breath sounds are appreciated CARDIOVASCULAR: no JVD, RRR,no murmurs/rubs/gallops ABDOMEN: Soft, nontender to palpation in all four quadrants, no masses/organomegaly EXTREMITIES: Left upper extremity AV fistula is intact, no other clubbing, cyanosis or edema NEUROLOGICAL: No obvious focal deficits PSYCHIATRIC: normal mood/affect Skin: No rashes or ulcers. LN: No significant cervical or inguinal lymphadenopathy LABORATORY DATA, IMAGING STUDIES, MICROBIOLOGY: Please see below. Echocardiogram: none DVT prophylaxis ordered?: [facility] ASSESSMENT AND PLAN: This is a 74-year-old female with end-stage renal disease on dialysis Monday, Monday, Monday, who presented from dialysis with shortness of breath and cough, found to have diffuse bilateral infiltrates and pleural effusions concerning for pulmonary edema from fluid overload. She is s/p almost 7L fluid removed via HD. PROBLEMS: 1. Shortness of breath, cough likely 2/2 fluid overload vs respiratory infection: -Next HD today -Lung sounds are much improved from admission -Nephrology, Dr. Kiran, consulted. Appreciate recommendations. -RVP negative -Blood cultures negative thus far, Procalcitonin found to be 4.77 on admission -s/p Vancomycin and Meropenem, Azithromycin day 4 of 4 today -DuoNebs PRN 2. ESRD: -HD and fluid removal as tolerated. Will look for Nephrology recommendations. -Continue Renvela 3. DM2: -Levemir switched to 5U BID, SSI and Hypoglycemic protocol in place 4. HTN: -Continue home Coreg -Hold parameters added for Hydralazine 5. CAD: -Continue ASA, Pravastatin, Beta shante 6. Chronic pain: -Continue Tramadol 7. Bowel regimen: -Patient has not had BM and complains of constipation. Docusate/senna ordered. DVT ppx: SQH DISPOSITION: - patient is not passing PT evaluation at this time. Will make ALC status and pursue rehabilitation if necessary. VS, I&O, 24H, Fishbone Vital Signs/I&O Vital Signs Date Time Temp Pulse Resp B/P (MAP) Pulse Ox O2 Delivery O2 Flow Rate FiO2 02/28/19 08:41 18 02/28/19 08:41 73 139/64 02/28/19 06:00 96.6 95 Room Air 02/25/19 20:30 2.0 I&O- Last 24 Hours up to 6 AM 02/28/19 06:00 Intake Total 540 ml Output Total 0 ml Balance 540 ml Laboratory Data 24H LABS Laboratory Tests 2 02/27/19 11:44: Bedside Glucose (Misc Panel) 305H 02/27/19 16:51: Bedside Glucose (Misc Panel) 172H 02/27/19 20:52: Bedside Glucose (Misc Panel) 190H 02/28/19 05:25: Bedside Glucose (Misc Panel) 66L 02/28/19 06:03: Bedside Glucose (Misc Panel) 120H Microbiology Microbiology 02/23/19 Respiratory Virus Panel (PCR) ([facility]) - Final, Complete 02/22/19 Blood Culture - Final, Complete NO GROWTH AFTER 5 DAYS 02/22/19 Blood Culture - Final, Complete NO GROWTH AFTER 5 DAYS GME ATTESTATION GME ATTESTATION My faculty preceptor for this patient encounter was physically present during the encounter and was fully available. All aspects of the patient interview, ex amination, medical decision making process, and medical care plan development were reviewed and approved by the faculty preceptor. The faculty preceptor is aware and concurs with the plan as stated in the body of this note and will attest to such by his/her cosignature. ATTENDING NOTE I, Mya Sultana, have independently examined this patient and performed my own physical exam, as well as reviewed the documentation and edited where necessary. I have discussed in detail with the resident / student the findings and plan of treatment as documented by the resident / student and edited their note. I agree with their findings and treatment plan and have edited their documentation. I will continue to follow the patient during this hospital stay. ERNESTO VIGIL MD Feb 28, 2019 10:45 MYA SULTANA MD Feb 28, 2019 18:39
--- NOTE | 2019-02-28 11:31 | IPN ---
DATE: 02/28/2019 SUBJECTIVE: The patient was seen and examined the bedside this morning. She reports that she is feeling weak and she reports tremors of the extremities at rest. She otherwise denies any shortness of breath or cough. She is afebrile and hemodynamically stable. OBJECTIVE: VITAL SIGNS: Temperature is 96.6 degrees Fahrenheit, blood pressure 139/664, pulse is 73, respiratory of 18, saturating 95% on room air. Intake and output: There is no urine output recorded. Weight on the bed scale is 64.6 kg. PHYSICAL EXAMINATION GENERAL: The patient is awake, alert, oriented times three, laying in bed in no apparent distress. HEAD AND NECK EXAM: The patient has mild periorbital puffiness. Neck is supple. There is no jugular venous distention (JVD). CARDIOVASCULAR: S1, S2, regular rate. No edema of the bilateral lower extremities. RESPIRATORY: Chest is clear to auscultation bilaterally. Bilateral equal air entry. No rales or rhonchi. ABDOMEN: Soft, positive bowel sounds, nontender. MUSCULOSKELETAL: No clubbing or cyanosis. Pulses are 2+. 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 Power is 5/5 in all extremities. AV access seen in the left upper arm AV fistula with positive thrill and bruit. LAB Review: The patient only had labs done yesterday. There are no new labs done this morning. CURRENT INPATIENT MEDICATIONS: The patient's medications were all reviewed by myself. Insulin Levemir dose has been changed to 5 units subcu twice a day. She is getting tramadol 100 mg by mouth three times a day. I am going to decreased the dose to 100 mg twice a day which is the maximum dose in renal failure. ASSESSMENT/PLAN: 1. End-stage renal disease on hemodialysis: The patient's regular dialysis days are Monday, Monday, Monday. She is not going to have dialysis done today. Next dialysis will be done tomorrow morning as per her regular schedule. 2. Chronic combined systolic and diastolic congestive heart failure. Volume status is optimal. Continue the fluid restriction. Weight is stable. 3. Hypertension with hypertensive heart disease and end-stage renal disease. Continue current dose of Coreg and hydralazine. 4. Tremors of the extremities: The patient is on very high dose of tramadol I have decreased the tramadol dose to 100 mg by mouth twice a day.
[2019-02-28 11:37] LABS: BASO # 0.1 10^3/uL (0.0-0.2); BASO % 0.7 % (0.0-1.0); EOS # 0.1 10^3/uL (0.0-0.5); EOS % 1.9 % (0.0-3.0); HEMATOCRIT 36.7 % (36.0-47.0); HEMOGLOBIN 10.4 g/dl (12.0-15.5); LYMPH # 0.9 10^3/uL (1.5-5.0); LYMPH % 12.5 % (24.0-44.0); MEAN CORPUSCULAR HEMOGLOBIN 26.1 pg (27.0-33.0); MEAN CORPUSCULAR HGB CONC 28.3 g/dl (32.0-36.5); MONO # 0.6 10^3/uL (0.0-0.8); MONO % 9.2 % (0.0-5.0); NEUTROPHILS # 5.2 10^3/uL (1.5-8.5); NEUTROPHILS % 74.7 % (36.0-66.0); PLATELET COUNT, AUTOMATED 221 10^3/uL (150-450); RED BLOOD COUNT 3.99 10^6/uL (4.00-5.40)
[2019-02-28 12:12] LABS: CALCIUM LEVEL 8.4 MG/DL (8.8-10.2); CREATININE FOR GFR 8.88 MG/DL (0.55-1.30); GLOMERULAR FILTRATION RATE 5.6 (>39); POTASSIUM SERUM 4.6 MEQ/L (3.5-5.1)
[2019-02-28] MEDS ORDERED: INSUDET SC (12:49)
[2019-02-28] MEDS ORDERED: TRAM50TA2 PO (12:49)
[2019-02-28] MEDS ORDERED: LIDOCAINE 1% SDV 5 ML VIAL SQ ONE (13:15)
[2019-02-28] MEDS ORDERED: HEPARIN 1,000 UNITS/ML 10ML VIAL (FOR RADIOLOGY& DIALYSIS ONLY) IV ONE (13:15)
[2019-02-28 14:00] VITALS: BP 122/60
[2019-02-28 15:02] VITALS: BP 135/60
[2019-02-28] MEDS ORDERED: LEVEMIR (INSULIN DETEMIR) 1 UNITS/0.01ML SC SCH (21:00)
[2019-02-28] MEDS ORDERED: traMADol 50 MG TAB PO SCH (21:00)
--- NOTE | 2019-03-01 13:24 | DS.PDOC ---
Discharge Summary General Date of Admission Feb 22, 2019 at 23:54 Date of Discharge 02/28/2019 Attending Physician: AMBROSIO SULTANA MD Specialist/Consultants Involve: LIDIA BUCHANAN MD Discharge Summary PROCEDURES PERFORMED DURING STAY: [None]. ADMITTING DIAGNOSES: 1. Fluid overload 2/2 HD noncompliance 2. End-stage renal disease on HD Monday, Monday, Monday DISCHARGE DIAGNOSES: 1. Acute exacerbation of combined systolic and diastolic congestive heart failure 2. Fluid overload secondary to noncompliance with HD COMPLICATIONS/CHIEF COMPLAINT: Cough,Dm2,Esrd,Essential Hypertension,Hx Of [place]. HISTORY OF PRESENT ILLNESS: 74-year-old female with past medical history of end- stage renal disease on hemodialysis, hypertension, hyperlipidemia, diabetes, coronary artery disease and CABG, presents from dialysis center for shortness of breath, cough and pleuritic chest pain. Patient has been having these symptoms for the past few days, worsening so she decided to come to the hospital after her dialysis session. She reports that her symptoms started with a cough productive of clear sputum, followed by pleuritic chest pain caused by coughing. She denies any other associated symptoms, denies fever, lower extremity edema, nausea, vomiting, abdominal pain or diarrhea. HOSPITAL COURSE: Patient was admitted with presumed diagnosis of acute exacerbation of congestive heart failure versus lower respiratory tract infection. She was found to have chest x-ray showing pulmonary edema and bilateral pleural effusions.. She was treated empirically for pneumonia with vancomycin and Merrem. She underwent 2 days of HD fluid removal and about 6-7L fluid was removed with symptomatic improvement of her shortness of breath. Her pro-calcitonin was found to be or 0.7 on admission and antibiotic treatment was the escalated to oral azithromycin as her white blood cell count decreased and she remained vitally stable. The patient reported feeling shaky, uneasy and unstable on her feet, so she underwent physical therapy evaluation, who reported that she was not safe for discharge and needed more therapy. She was accepted into the acute rehabilitation unit for improvement in stability. DISCHARGE MEDICATIONS: Please see below. ALLERGIES: Please see below. PHYSICAL EXAMINATION ON DISCHARGE: VITAL SIGNS: Please see below. GENERAL APPEARANCE: Laying in bed, appears stated age, no acute distress, calm, cooperative HEENT: EOMI, PERRLA, neck is supple with no thyromegaly or lymphadenopathy RESPIRATORY: very fine crackles are appreciated in the bases bilaterally, otherwise no other adventitious breath sounds are appreciated CARDIOVASCULAR: no JVD, RRR,no murmurs/rubs/gallops ABDOMEN: Soft, nontender to palpation in all four quadrants, no masses/organomegaly EXTREMITIES: Left upper extremity AV fistula is intact, no other clubbing, cyanosis or edema NEUROLOGICAL: No obvious focal deficits PSYCHIATRIC: normal mood/affect Skin: No rashes or ulcers. LN: No significant cervical or inguinal lymphadenopathy LABORATORY DATA: Please see below. IMAGING: CXR (02/22/19): Findings: Cardiomegaly with diffuse bilateral infiltrates and pleural effusions consistent with cardiomegaly and CHF/pulmonary edema. Prior sternotomy, CABG, and vascular stent at the left brachiocephalic vein. Impression: Cardiomegaly with CHF and pulmonary edema. CT CHEST (02/23/19): Findings: Cardiomegaly is appreciated with small to moderate pleural effusions (left greater than right) and scattered infiltrates along with moderate left lower lobe atelectasis. Findings are consistent with CHF/pulmonary edema. Few scattered bilateral calcified and noncalcified nodular densities are again noted and likely represent sequelae of prior granulomas disease. Atherosclerotic changes to the thoracic aorta and coronary arteries noted along with evidence for prior CABG/coronary stenting and brachiocephalic vein stent. Impression: Findings compatible with CHF/pulmonary edema. Stable pulmonary nodules. PROGNOSIS: Fair ACTIVITY: [As tolerated]. DIET: Renal diet DISCHARGE PLAN: Acute rehabilitation unit DISPOSITION: 62 D/T Rehab Facility. DISCHARGE INSTRUCTIONS: 1. Follow up with nephrology and continue hemodialysis as prescribed ITEMS TO FOLLOWUP ON ON OUTPATIENT: 1. None DISCHARGE CONDITION: [Stable]. TIME SPENT ON DISCHARGE: Greater than 30 minutes. Vital Signs/I&Os Vital Signs Date Time Temp Pulse Resp B/P (MAP) Pulse Ox O2 Delivery O2 Flow Rate FiO2 02/28/19 15:02 135/60 02/28/19 14:00 97.3 70 20 99 Room Air 02/25/19 20:30 2.0 I&O- Last 24 Hours up to 6 AM 03/01/19 05:59 Intake Total 660 ml Output Total 0 ml Balance 660 ml Laboratory Data Labs 24H Laboratory Tests 2 02/28/19 17:10: Bedside Glucose (Misc Panel) 89 02/28/19 20:55: Bedside Glucose (Misc Panel) 196H FSBS Laboratory Tests Test 02/28/19 17:10 02/28/19 20:55 Range/Units Bedside Glucose (Misc Panel) 89 196 83-110 MG/DL Microbiology Microbiology 02/23/19 Respiratory Virus Panel (PCR) ([facility]) - Final, Complete 02/22/19 Blood Culture - Final, Complete NO GROWTH AFTER 5 DAYS 02/22/19 Blood Culture - Final, Complete NO GROWTH AFTER 5 DAYS Discharge Medications Scheduled Aspirin (Aspirin EC) 81 Mg Tablet.dr, 81 MG PO QHS, (Reported) Carvedilol (Carvedilol) 12.5 Mg Tablet, 12.5 MG PO BID, (Reported) Denosumab Injection (Prolia) 60 Mg/1 Ml Syringe, 60 MG SC EVERY SIX MONTHS, (Reported) HAD INJECTION IN JULY Gabapentin (Gabapentin) 100 Mg Capsule, 100 MG PO BID, (Reported) Hydralazine HCl (Hydralazine HCl) 25 Mg Tablet, 25 MG PO Q8H, (Reported) Insulin Detemir (Levemir) 100 Unit/1 Ml Vial, 5 UNITS SC BID Multivitamins (Thera M Plus Tablet) 1 Tab Tab, 1 TAB PO QHS, (Reported) Pravastatin Sodium (Pravastatin Sodium) 80 Mg Tablet, 80 MG PO QHS, (Reported) Sevelamer Carbonate (Sevelamer Carbonate) 800 Mg Tablet, 1,600 MG PO BIDWM, (Reported) Tramadol HCl (Tramadol HCl) 50 Mg Tablet, 100 MG PO BID Ubidecarenone/Vit E Acet (Co Q-10 100 mg Softgel) 100 Mg Cap, 100 MG PO QHS, (Reported) Scheduled PRN Docusate Sodium (Colace) 100 Mg Cap, 100 MG PO DAILY PRN for CONSTIPATION, (Reported) Lidocaine/Prilocaine (Lidocaine-Prilocaine Cream) 2.5%/2.5% Cream..g., 1 DOSE TOP DAILY PRN for PAIN, (Reported) APPLIES TO PORT AREA Menthol (Bengay) 5% Gel..gram., 1 APLCT TOP QHS PRN for PAIN, (Reported) Allergies Coded Allergies: Inomxws-Khj-Tqb Reductase Inhibitor (Verified Allergy, Unknown, PAIN, 07/20/18) PT SAYS SHE CAN TAKE PRAVASTATIN GME ATTESTATION GME ATTESTATION My faculty preceptor for this patient encounter was physically present during the encounter and was fully available. All aspects of the patient interview, examination, medical decision making process, and medical care plan development were reviewed and approved by the faculty preceptor. The faculty preceptor is aware and concurs with the plan as stated in the body of this note and will attest to such by his/her cosignature. ERNESTO VIGIL MD Mar 01, 2019 11:55
== END 2019-02-28 18:20 | DRG 291 ==
LOC: M ED 15:21 → M ED INP 23:54 → M MSPAV 02-23 00:51
PROVIDERS: ADMIT Internal Medicine; ATTEND Internal Medicine
PROC: 5A1D70Z Performance of Urinary Filtration, Intermittent, Less than 6 Hours Per Day (ICD-10-PCS; principal; 2019-02-23)
DX: I13.2 Hypertensive heart and chronic kidney disease with heart failure and with stage 5 chronic kidney disease, or end stage renal disease (principal); I50.43 Acute on chronic combined systolic (congestive) and diastolic (congestive) heart failure; N18.6 End stage renal disease; J18.9 Pneumonia, unspecified organism; N25.81 Secondary hyperparathyroidism of renal origin; I69.351 Hemiplegia and hemiparesis following cerebral infarction affecting right dominant side; I25.5 Ischemic cardiomyopathy; E11.22 Type 2 diabetes mellitus with diabetic chronic kidney disease; E78.5 Hyperlipidemia, unspecified; E87.70 Fluid overload, unspecified; K59.00 Constipation, unspecified; R25.1 Tremor, unspecified; I25.10 Atherosclerotic heart disease of native coronary artery without angina pectoris; G89.29 Other chronic pain; D63.1 Anemia in chronic kidney disease; Z99.2 Dependence on renal dialysis; Z95.1 Presence of aortocoronary bypass graft; Z87.891 Personal history of nicotine dependence; Z79.82 Long term (current) use of aspirin; Z79.4 Long term (current) use of insulin; Z79.891 Long term (current) use of opiate analgesic; Z79.899 Other long term (current) drug therapy; Z91.15 Patient's noncompliance with renal dialysis; Z88.8 Allergy status to other drugs, medicaments and biological substances

== ENCOUNTER 2019-02-28 16:06 | Inpatient (IN) | payer MEDICARE, BC ==
[~2019-02-28] VITALS: Ht 165.1 cm; Wt 73.7 kg
[~2019-02-28 16:06] MED LIST changes: +GABA-1171 PO; +INSUDET SC; -OMEP-172 PO; +OMEP1CAP73 PO; +PATIENT COMMENTS
[2019-02-28] MEDS ORDERED: DEXTROSE 50% 50 ML SYRINGE IV PRN (16:45)
[2019-02-28] MEDS ORDERED: MOM 30ML SUSPENSION UDC PO PRN (16:45)
[2019-02-28] MEDS ORDERED: ACETAMINOPHEN TAB 650MG DOSE (2X325MG) PO PRN (16:45)
[2019-02-28] MEDS ORDERED: GLUCAGON FOR INJ 1 MG VIAL (J1610) SC PRN (16:45)
[2019-02-28] MEDS ORDERED: GLUCOSE 4 GM CHEW TABLET PO PRN (16:45)
[2019-02-28] MEDS ORDERED: HumaLOG INSULIN (NovoLOG) PER UNIT SC SCH (17:30)
[2019-02-28 18:30] VITALS: BP 133/78
[2019-02-28 20:00] VITALS: BP 162/71
[2019-02-28] MEDS: HumaLOG INSULIN (NovoLOG) PER UNIT SC SCH (21:00)
[2019-02-28] MEDS: HEPARIN SOD (PORCINE) 5000 UNITS/ML VIAL SC SCH (21:00)
[2019-02-28] MEDS ORDERED: GABAPENTIN 100 MG CAP PO SCH (21:00)
[2019-02-28] MEDS: ASPIRIN 81 MG ENTERIC TAB PO SCH (21:08)
[2019-02-28] MEDS: PRAVASTATIN 20 MG TAB PO SCH (21:08)
[2019-02-28] MEDS: MULTIVITAMINS/MINERALS THERAP 1 TAB PO SCH (21:08)
[2019-02-28] MEDS: LEVEMIR (INSULIN DETEMIR) 1 UNITS/0.01ML SC SCH (21:08)
[2019-02-28] MEDS: GABAPENTIN 100 MG CAP PO SCH (21:08)
[2019-02-28] MEDS: CARVedilol 12.5 MG TAB PO SCH (21:09)
[2019-02-28] MEDS: traMADol 50 MG TAB PO SCH (21:09)
[2019-02-28] MEDS: SENOKOT S TAB PO SCH (21:10)
[2019-02-28] MEDS: **hydrALAZINE HCL** 25 MG TAB PO SCH (21:10)
[2019-03-01] MEDS: **hydrALAZINE HCL** 25 MG TAB PO SCH ×3 (05:56→21:13)
[2019-03-01 06:00] VITALS: BP 162/74
[2019-03-01 06:54] LABS: BASO # 0.1 10^3/uL (0.0-0.2); BASO % 0.6 % (0.0-1.0); EOS # 0.2 10^3/uL (0.0-0.5); EOS % 2.6 % (0.0-3.0); HEMATOCRIT 33.3 % (36.0-47.0); HEMOGLOBIN 9.7 g/dl (12.0-15.5); LYMPH # 1.3 10^3/uL (1.5-5.0); LYMPH % 15.6 % (24.0-44.0); MEAN CORPUSCULAR HEMOGLOBIN 26.3 pg (27.0-33.0); MEAN CORPUSCULAR HGB CONC 29.1 g/dl (32.0-36.5); MEAN CORPUSCULAR VOLUME 90.2 fl (80.0-96.0); MONO # 0.8 10^3/uL (0.0-0.8); NEUTROPHILS % 70.9 % (36.0-66.0); PLATELET COUNT, AUTOMATED 223 10^3/uL (150-450); RED BLOOD COUNT 3.69 10^6/uL (4.00-5.40); WHITE BLOOD COUNT 8.4 10^3/uL (4.0-10.0)
[2019-03-01] MEDS: HumaLOG INSULIN (NovoLOG) PER UNIT SC SCH ×4 (07:30→21:00)
[2019-03-01 07:33] LABS: ALBUMIN 2.6 GM/DL (3.2-5.2); BILIRUBIN,TOTAL 0.4 MG/DL (0.2-1.0); CALCIUM LEVEL 8.9 MG/DL (8.8-10.2); CREATININE FOR GFR 10.2 MG/DL (0.55-1.30); GLOMERULAR FILTRATION RATE 4.8 (>39); POTASSIUM SERUM 4.9 MEQ/L (3.5-5.1); TOTAL PROTEIN 6.6 GM/DL (6.4-8.2)
[2019-03-01] MEDS: LEVEMIR (INSULIN DETEMIR) 1 UNITS/0.01ML SC SCH ×2 (08:42→21:12)
[2019-03-01] MEDS: HEPARIN SOD (PORCINE) 5000 UNITS/ML VIAL SC SCH ×2 (09:24→21:00)
[2019-03-01] MEDS: SENOKOT S TAB PO SCH ×2 (09:25→21:13)
[2019-03-01] MEDS: PANTOPRAZOLE 40MG TAB (PROTONIX) PO SCH (09:26)
[2019-03-01] MEDS: (RENVELA) SEVELAMER **CARBONate** 800 MG TAB PO SCH ×2 (09:26→17:10)
[2019-03-01] MEDS: CARVedilol 12.5 MG TAB PO SCH ×2 (09:26→21:13)
[2019-03-01] MEDS: traMADol 50 MG TAB PO SCH ×2 (09:26→21:00)
--- NOTE | 2019-03-01 11:21 | IPN ---
DATE: 03/01/2019 SUBJECTIVE: The patient was seen and examined at the bedside this morning. She was transferred to rehab unit yesterday because of inability to work with physical therapy. Today is the patient's regular day of dialysis. Apart from weakness, she does not complain of any chest pain, shortness of breath or cough. OBJECTIVE: Vital signs: Temperature is 98 degrees Fahrenheit, blood pressure 162/74, pulse 74, respiratory of 20, saturating 98% on room air. Intake and output. There is no urine output recorded today. Weight on the bed scale is 70.2. PHYSICAL EXAMINATION: General: The patient is awake, alert, oriented times three, laying in bed in no apparent distress. Head and neck exam: Extraocular muscles intact. Pupils equally round and reactive to light. The patient has some periorbital puffiness. Neck is supple. There is no jugular venous distention (JVD). Cardiovascular: S1, S2 regular rate. No edema of the bilateral lower extremities. Respiratory: Chest is clear to auscultation bilaterally. Bilateral equal air entry. No rales or rhonchi. Abdomen: Soft, positive bowel sounds. Nontender. No organomegaly. Musculoskeletal: No clubbing or cyanosis. Pulses are 2+. 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 Power is 5/5 in all extremities. LABORATORY REVIEW: CBC showed WBC 8.4, hemoglobin 9.7, platelets of 223. BMP showed sodium 136, potassium 4.9, chloride 99, bicarbonate 26, BUN 74, creatinine is 10.2. CURRENT INPATIENT MEDICATIONS: The patient's medications were all reviewed by myself and there is no change in the medications today as compared with yesterday. ASSESSMENT/PLAN: 1. End-stage renal disease. The patient's regular days of dialysis on Monday, Monday, Monday. Today is her regular day of dialysis. I will try to remove at least 2 liters of fluid during dialysis today in the afternoon. 2. Chronic combined systolic and diastolic congestive heart failure. The patient's volume is being optimized with dialysis. Continue fluid restriction at 1200 mL a day. 3. Hypertension with end-stage renal disease and hypertensive heart disease. Continue current dose of Coreg and hydralazine. 4. Anemia in end-stage renal disease. I am going to restart the patient on Aranesp with dialysis. 5. Chronic kidney disease and mineral bone disease. Continue current dose of Renvela with meals.
[2019-03-01] MEDS ORDERED: DARBEPOETIN 100 MCG/0.5 ML *DIALYSIS* SYRINGE (J0882) IV SCH (12:00)
[2019-03-01] MEDS ORDERED: LIDOCAINE 1% SDV 5 ML VIAL SQ ONE (12:00)
[2019-03-01] MEDS ORDERED: HEPARIN 1,000 UNITS/ML 10ML VIAL (FOR RADIOLOGY& DIALYSIS ONLY) IV ONE (12:00)
--- NOTE | 2019-03-01 13:32 | HPEPDOC ---
Regulatory Administrator Note DATE OF ADMISSION: 02-28-19 DATE OF SERVICE: 03-01-19 TIME OF ADMISSION: Please refer to physician's admission order. SOURCE OF ADMISSION INFORMATION: [facility] record and patient CHIEF COMPLAINT: CHF with PNA in setting of ESRD HISTORY OF PRESENT ILLNESS: 74F pmh ESRD on HD, HTN, HLD, DM, CAD s/p CABG with systolic-diastolic CHF, hx of CVA with right sided weakness, spinal stenosis s/p lumbar laminectomy, anemia of chronic disease, who presented to [facility] ED on 02-23-19 complaining of shortness of breath, cough, and chest pain. CT chest showed, small to moderate pleural effusions (left greater than right) and scattered infiltrates along with mo derate left lower lobe atelectasis She was started on empiric antibiotics for concern for pneumonia and evaluated by renal for her fluid overloaded status. She was placed on a 1200cc fluid restriction and continued on dialysis. She was evaluated by therapy and required assistance with mobility and ADLs and deemed medically appropriate for discharge to ARU 02-28-19. REVIEW OF SYSTEMS: The following is a completed review of systems and has been reviewed. Review of systems otherwise unremarkable. PAIN: Patient self reports no pain EYES: No recent vision changes EARS, NOSE, & THROAT: No throat pain, or dysphagia, or rhinorrhea CARDIOVASCULAR: Denies chest pain or palpitations PULMONARY: Denies shortness of breath GASTROINTESTINAL: +constipation GENITOURINARY:denies dysuria MUSCULOSKELETAL: bilat LE weakness NEUROLOGICAL: +bilat LE tremor, residual right sided weakness HEMATOLOGICAL: anemia SKIN: denies rash PSYCHIATRIC: Unremarkable All other review of systems found to be negative. PAST MEDICAL HISTORY: as per HPI PAST SURGICAL HISTORY: Hysterectomy, CABG ALLERGIES: Please see below. MEDICATIONS: Please see below. FAMILY HISTORY: cardiac SOCIAL HISTORY: Ex-smoker, no etoh or illicit drugs DIET: low sodium, consistent carb, 1200cc fluid restrict PHYSICAL EXAMINATION: VITAL SIGNS: Please see below. GENERAL: Pleasant and cooperative. No acute distress. HEENT: PERRL. Extraocular movements intact. Clear conjunctiva CARDIOVASCULAR: Regular rate and rhythm. No murmurs, rubs, or gallops LUNGS: Clear to auscultation bilaterally. No wheezes. No rhonchi ABDOMEN: Soft, nontender, nondistended. Positive bowel sounds. Normal active bowel sounds NEUROLOGICAL: Alert and oriented times three. Cranial nerves II through XII grossly intact. Sensation grossly intact. +right pronator drift EXTREMITIES: 5-\5 strength bilateral upper extremities with mild right pronator drift 4\5 strength right lower extremity. 4/5 strength in left lower extremity. SKIN: +fistula LABORATORY DATA: Please see below. IMAGING:Imaging documentation personally reviewed by record FUNCTIONAL STATUS: Premorbid: Modified Independent with all activities of daily life as well as mobility with RW On Admission: Contact guard assistance for bathing, upper body dressing, bed chair and wheel chair transfers, toilet transfers, ambulation. GOALS: Modified Independent for bathing, upper body dressing, bed chair and wheelchair transfers, toilet transfers, ambulation community distances, fall recovery, medical optimization ASSESSMENT:74-year-old F with past medical history of ESRD with CHF who presents status post CHF exacerbation with PNA PLAN: 1. Rehab- PT/OT strengthen, stretch, maintain ROM all 4 limbs, fall recovery, advance gait and ADL 2. Neuro: hx of stroke with mild residual right sided weakness, hx of spinal stenosis s/p laminectomy in 2018 with persistent LE weakness -c/u ASA and statin for secondary stroke prevention 3. Cardiac: hx of diastolic and systolic CHF s/p recent exacerbation, c/u fluid restrict 1200cc, daily weights, and dialysis- medicine consulted to assist in management -HTN- c/u hydralazine -HLD- c/u statin -CAD- c/u ASA and Coreg 4. resp: s/p course of antibiotics for presumed pneumonia, encourage incentive spirometry, monitor for infection -[place] 5. Renal: ESRD on HD , renal consulted -[facility] 6. Endo: hx of DM c/u levemir and ISS, adjust prn 7. Pain: gabapentin renally dosed at 100mg daily, c/u tramadol at lower dose 50mg BID to avoid daytime somnolence 8. DVT ppx: heparni and teds 9. GI ppx: protonix 10. Dispo: TBD POST ADMISSION PHYSICIAN EVALUATION: Medical and functional status: Description of medical status, medical assessment: As above. Rehabilitation diagnosis and current and prior cold morbid medical conditions as above. Risk of complications and plans to mitigate them as above. Description of functional status current status is as above. Prior status as above. Status compared to preadmission: There are no clinically significant differences between the patient's current status and the information described on the preadmission screening document. Treatment plan anticipated: Treatment plan is as described above. Required disciplines including physical therapy, occupational therapy, others as noted above. Intensity of services: 3 hours a day, 6 days a week. Special considerations: There are no specific special or safety considerations that would likely preclude immediate implementation of an intensive rehabilitation program or subsequently influence the plan of care. ATTESTATION: Considering all the information above, it is my best judgment that this patient requires intensive rehabilitation therapy as described above and an inpatient hospital environment due to the complexity of nursing, medical, and rehabilitation needs required by the patient. Furthermore, this patient can reasonably be expected to participate in an benefit from an inpatient rehabilitation stay with an interdisciplinary team approach to the delivery of rehabilitation care under the direction and supervision of rehabilitation physician. PROGNOSIS: good ESTIMATED LENGTH OF STAY:10-14 days. PROJECTED DISCHARGE DESTINATION: Home with family support and any durable medical equipment required to increase functional safety and mobility. TIME SPENT COUNSELING AND COORDINATING INITIAL CARE: Greater than 70 minutes. Vital Signs Vital Sign - Last 24 Hours 02/28/19 02/28/19 02/28/19 02/28/19 18:30 20:00 20:00 21:09 Temp 97.8 96.6 96.6 Pulse 70 82 82 82 Resp 20 20 20 B/P (MAP) 133/78 (96) 162/71 (101) 162/71 (101) 162/71 Pulse Ox 97 93 93 O2 Delivery Room Air Room Air Room Air 02/28/19 03/01/19 03/01/19 03/01/19 21:09 05:56 06:00 09:26 Temp 98.0 Pulse 74 74 Resp 20 20 B/P (MAP) 162/74 162/74 (103) 162/74 Pulse Ox 98 O2 Delivery Room Air 03/01/19 09:26 Resp 16 Laboratory Data CBC/BMP Laboratory Tests 03/01/19 06:33 Labs 24H Laboratory Tests 2 03/01/19 06:33: Immature Granulocyte % (Auto) 1.3, Neutrophils (%) (Auto) 70.9H, Lymphocytes (%) (Auto) 15.6L, Monocytes (%) (Auto) 9.0H, Eosinophils (%) (Auto) 2.6, Basophils (%) (Auto) 0.6, Neutrophils # (Auto) 6.0, Lymphocytes # (Auto) 1.3L, Monocytes # (Auto) 0.8, Eosinophils # (Auto) 0.2, Basophils # (Auto) 0.1, Nucleated Red Blood Cells % (auto) 0.0, Anion Gap 11, Glomerular Filtration Rate 4.8L, Calcium Level 8.9, Total Bilirubin 0.4, Aspartate Amino Transf (AST/SGOT) 24, Alanine Aminotransferase (ALT/SGPT) 46, Alkaline Phosphatase 73, Total Protein 6.6, Albumin 2.6L, Albumin/Globulin Ratio 0.65L 03/01/19 11:30: Bedside Glucose (Misc Panel) 123H FSBS Laboratory Tests Test 03/01/19 11:30 Range/Units Bedside Glucose (Misc Panel) 123 83-110 MG/DL Home Medications Scheduled Aspirin (Aspirin EC) 81 Mg Tablet.dr, 81 MG PO QHS, (Reported) Carvedilol (Carvedilol) 12.5 Mg Tablet, 12.5 MG PO BID, (Reported) Denosumab Injection (Prolia) 60 Mg/1 Ml Syringe, 60 MG SC EVERY SIX MONTHS, (Reported) HAD INJECTION IN JULY Gabapentin (Gabapentin) 100 Mg Capsule, 100 MG PO BID, (Reported) Hydralazine HCl (Hydralazine HCl) 25 Mg Tablet, 25 MG PO Q8H, (Reported) Insulin Detemir (Levemir) 100 Unit/1 Ml Vial, 5 UNITS SC BID Multivitamins (Thera M Plus Tablet) 1 Tab Tab, 1 TAB PO QHS, (Reported) Pravastatin Sodium (Pravastatin Sodium) 80 Mg Tablet, 80 MG PO QHS, (Reported) Sevelamer Carbonate (Sevelamer Carbonate) 800 Mg Tablet, 1,600 MG PO BIDWM, (Reported) Tramadol HCl (Tramadol HCl) 50 Mg Tablet, 100 MG PO BID Ubidecarenone/Vit E Acet (Co Q-10 100 mg Softgel) 100 Mg Cap, 100 MG PO QHS, (Reported) Scheduled PRN Docusate Sodium (Colace) 100 Mg Cap, 100 MG PO DAILY PRN for CONSTIPATION, (Reported) Lidocaine/Prilocaine (Lidocaine-Prilocaine Cream) 2.5%/2.5% Cream..g., 1 DOSE TOP DAILY PRN for PAIN, (Reported) APPLIES TO [place] Menthol (Bengay) 5% Gel..gram., 1 APLCT TOP QHS PRN for PAIN, (Reported) Allergies Coded Allergies: Shyrrdz-Byx-Lgk Reductase Inhibitor (Verified Allergy, Unknown, PAIN, 07/20/18) PT SAYS SHE CAN TAKE PRAVASTATIN A-FIB/CHADSVASC A-FIB History Current/History of A-Fib/PAF?: No GURMEET SOLORZANO MD Mar 01, 2019 13:32
--- NOTE | 2019-03-01 16:13 | IPNPDOC ---
Text Note Date of Service The patient was seen on 03/01/19. NOTE Subjective: Patient was seen and examined while at HD. Patient reports that she's experiencing some abdominal discomfort. She denies any nausea, vomiting, chest pain, shortness of breath or palpitations. She denies any diarrhea, but notes some constipation. Objective: Vitals (See below) General: Lying in bed, no acute distress, comfortable, AAOx3 HEENT: NC, AT CVS: RRR, +S1S2 Lungs: Fair air entry b/l, -w/r/r Abdomen: Soft, ND, NT Extremities: - Edema, - Calf tenderness Assessment and plan: 74-year-old female with end-stage renal disease on dialysis Monday, Monday, Monday, who presented from dialysis with shortness of breath and cough, found to have diffuse bilateral infiltrates and pleural effusions concerning for pulmonary edema from fluid overload. She is s/p almost 7L fluid removed via HD. Deconditioning - c/w PT and OT at the direction of ARU s/p Shortness of breath & cough - likely 2/2 fluid overload, less likely 2/2 respiratory infection - Has received hemodialysis and resolution of her fluid overload - s/p Broad spectrum antibiotics (Vancomycin, Zosyn) and Azithromycin ESRD on HD - Received HD (MWF) - Nephrology on consult IDDM2 - c/w ISS and Levemir HTN - c/w Carvedilol, Hydralazine CAD - c/w ASA, Pravastatin, Beta shante Neuropathy - c/w Gabapentin at an adjusted dose Chronic pain - c/w Tramadol PRN Constipation - c/w bowel regimen as ordered GI prophylaxis - c/w Protonix DVT prophylaxis - c/w Heparin Disposition: - c/w PT and OT at the direction of ARU VS,Fishbone, I+O VS, Fishbone, I+O Laboratory Tests 03/01/19 06:33 Vital Signs Date Time Temp Pulse Resp B/P (MAP) Pulse Ox O2 Delivery O2 Flow Rate FiO2 03/01/19 09:26 16 03/01/19 09:26 74 162/74 03/01/19 06:00 98.0 98 Room Air I&O- Last 24 Hours up to 6 AM 03/01/19 06:00 Intake Total 450 ml Output Total 251 ml Balance 199 ml AMBROSIO SULTANA MD Mar 01, 2019 16:13
[2019-03-01 17:37] VITALS: BP 171/70
[2019-03-01] MEDS: IPRATROPIUM 0.5MG/ALBUTEROL 2.5MG INH SOL UD 3ML (DUONEB)(J7620) NEB SCH ×2 (17:37→20:00)
[2019-03-01 20:00] VITALS: BP 153/70
[2019-03-01] MEDS: ASPIRIN 81 MG ENTERIC TAB PO SCH (21:13)
[2019-03-01] MEDS: GABAPENTIN 100 MG CAP PO SCH (21:13)
[2019-03-01] MEDS: MULTIVITAMINS/MINERALS THERAP 1 TAB PO SCH (21:13)
[2019-03-01] MEDS: PRAVASTATIN 20 MG TAB PO SCH (21:13)
[2019-03-02 06:00] VITALS: BP 166/72
[2019-03-02] MEDS: **hydrALAZINE HCL** 25 MG TAB PO SCH ×3 (06:18→21:49)
[2019-03-02] MEDS: IPRATROPIUM 0.5MG/ALBUTEROL 2.5MG INH SOL UD 3ML (DUONEB)(J7620) NEB SCH ×3 (08:00→20:00)
[2019-03-02] MEDS: HumaLOG INSULIN (NovoLOG) PER UNIT SC SCH ×4 (08:38→20:39)
[2019-03-02] MEDS: LEVEMIR (INSULIN DETEMIR) 1 UNITS/0.01ML SC SCH ×2 (08:39→20:54)
[2019-03-02] MEDS: traMADol 50 MG TAB PO SCH ×2 (08:39→20:56)
[2019-03-02] MEDS: HEPARIN SOD (PORCINE) 5000 UNITS/ML VIAL SC SCH ×2 (08:39→20:54)
[2019-03-02] MEDS: SENOKOT S TAB PO SCH ×2 (08:40→20:55)
[2019-03-02] MEDS: PANTOPRAZOLE 40MG TAB (PROTONIX) PO SCH (08:40)
[2019-03-02] MEDS: CARVedilol 12.5 MG TAB PO SCH ×2 (08:41→20:56)
[2019-03-02] MEDS: (RENVELA) SEVELAMER **CARBONate** 800 MG TAB PO SCH ×2 (08:41→17:43)
[2019-03-02 14:00] VITALS: BP 144/69
[2019-03-02] MEDS: PRAVASTATIN 20 MG TAB PO SCH (20:55)
[2019-03-02] MEDS: ASPIRIN 81 MG ENTERIC TAB PO SCH (20:55)
[2019-03-02] MEDS: GABAPENTIN 100 MG CAP PO SCH (20:56)
[2019-03-02] MEDS: MULTIVITAMINS/MINERALS THERAP 1 TAB PO SCH (20:56)
[2019-03-03] MEDS: **hydrALAZINE HCL** 25 MG TAB PO SCH ×3 (05:49→21:24)
[2019-03-03 06:00] VITALS: BP 169/78
[2019-03-03] MEDS: LEVEMIR (INSULIN DETEMIR) 1 UNITS/0.01ML SC SCH ×2 (07:47→21:24)
[2019-03-03] MEDS: HumaLOG INSULIN (NovoLOG) PER UNIT SC SCH ×4 (07:48→21:00)
[2019-03-03] MEDS: HEPARIN SOD (PORCINE) 5000 UNITS/ML VIAL SC SCH ×2 (07:51→21:00)
[2019-03-03] MEDS: (RENVELA) SEVELAMER **CARBONate** 800 MG TAB PO SCH ×2 (07:51→17:14)
[2019-03-03] MEDS: traMADol 50 MG TAB PO SCH ×2 (07:52→21:00)
[2019-03-03] MEDS: CARVedilol 12.5 MG TAB PO SCH ×2 (07:52→21:22)
[2019-03-03] MEDS: PANTOPRAZOLE 40MG TAB (PROTONIX) PO SCH ×2 (07:52→07:55)
[2019-03-03] MEDS: SENOKOT S TAB PO SCH ×2 (07:52→21:00)
[2019-03-03] MEDS: IPRATROPIUM 0.5MG/ALBUTEROL 2.5MG INH SOL UD 3ML (DUONEB)(J7620) NEB SCH ×3 (08:00→20:14)
[2019-03-03 14:00] VITALS: BP 161/72
[2019-03-03 20:00] VITALS: BP 175/80
[2019-03-03] MEDS: ASPIRIN 81 MG ENTERIC TAB PO SCH (21:22)
[2019-03-03] MEDS: GABAPENTIN 100 MG CAP PO SCH (21:22)
[2019-03-03] MEDS: MULTIVITAMINS/MINERALS THERAP 1 TAB PO SCH (21:22)
[2019-03-03] MEDS: PRAVASTATIN 20 MG TAB PO SCH (21:23)
[2019-03-04] MEDS: **hydrALAZINE HCL** 25 MG TAB PO SCH ×3 (05:54→21:42)
[2019-03-04 05:59] VITALS: BP 174/80
[2019-03-04] MEDS: IPRATROPIUM 0.5MG/ALBUTEROL 2.5MG INH SOL UD 3ML (DUONEB)(J7620) NEB SCH ×3 (08:00→20:00)
[2019-03-04] MEDS: HumaLOG INSULIN (NovoLOG) PER UNIT SC SCH ×4 (08:57→21:00)
[2019-03-04] MEDS: PANTOPRAZOLE 40MG TAB (PROTONIX) PO SCH (08:58)
[2019-03-04] MEDS: LEVEMIR (INSULIN DETEMIR) 1 UNITS/0.01ML SC SCH ×2 (08:58→21:38)
[2019-03-04] MEDS: HEPARIN SOD (PORCINE) 5000 UNITS/ML VIAL SC SCH ×2 (08:58→21:40)
[2019-03-04] MEDS: (RENVELA) SEVELAMER **CARBONate** 800 MG TAB PO SCH ×2 (08:58→17:36)
[2019-03-04] MEDS: SENOKOT S TAB PO SCH ×2 (08:58→21:41)
[2019-03-04] MEDS: CARVedilol 12.5 MG TAB PO SCH ×2 (08:59→21:42)
[2019-03-04] MEDS: traMADol 50 MG TAB PO SCH ×2 (08:59→21:00)
[2019-03-04 09:10] LABS: HEMATOCRIT 36.2 % (36.0-47.0); HEMOGLOBIN 10.4 g/dl (12.0-15.5); MEAN CORPUSCULAR HEMOGLOBIN 26.5 pg (27.0-33.0); MEAN CORPUSCULAR HGB CONC 28.7 g/dl (32.0-36.5); MEAN CORPUSCULAR VOLUME 92.1 fl (80.0-96.0); PLATELET COUNT, AUTOMATED 217 10^3/uL (150-450); RED BLOOD COUNT 3.93 10^6/uL (4.00-5.40); WHITE BLOOD COUNT 7.1 10^3/uL (4.0-10.0)
[2019-03-04 10:04] LABS: GLOMERULAR FILTRATION RATE 4.9 (>39); POTASSIUM SERUM 5.1 MEQ/L (3.5-5.1)
--- NOTE | 2019-03-04 12:39 | IPNPDOC ---
Text Note Date of Service The patient was seen on 03/04/19. NOTE Subjective: Patient was seen and examined while using her wheel chair in the hallway. . She denies any nausea, vomiting, chest pain, shortness breath, palpitations, constipation or diarrhea. Was that she has been working with physical therapy; and has been progressing well. Objective: Vitals (See below) General: Lying in bed, no acute distress, comfortable, AAOx3 HEENT: NC, AT CVS: +S1S2 Lungs: Fair air entry b/l, auscultation is free of rhonchi, rales or wheezing Abdomen: Soft, remains nondistended without tenderness Extremities: No evidence of edema, - Calf tenderness Assessment and plan: 74-year-old female with end-stage renal disease on dialysis Monday, Monday, Monday, who presented from dialysis with shortness of breath and cough, found to have diffuse bilateral infiltrates and pleural effusions concerning for pulmonary edema from fluid overload. Deconditioning - c/w PT and OT at the direction of ARU; has been progressing s/p Shortness of breath & cough - likely 2/2 fluid overload, less likely 2/2 respiratory infection - Has received hemodialysis and resolution of her fluid overload - s/p Broad spectrum antibiotics (Vancomycin, Zosyn) and Azithromycin ESRD on HD - Received HD ([facility]) - Nephrology on consult IDDM2 - c/w ISS and Levemir HTN - c/w Carvedilol, Hydralazine CAD - c/w ASA, Pravastatin, Beta shante Neuropathy - c/w Gabapentin at an adjusted dose Chronic pain - c/w Tramadol PRN Constipation - c/w bowel regimen as ordered GI prophylaxis - c/w Protonix DVT prophylaxis - c/w Heparin Disposition: - c/w PT and OT at the direction of ARU VS,Fishbone, I+O VS, Fishbone, I+O Laboratory Tests 03/04/19 08:51 Vital Signs Date Time Temp Pulse Resp B/P (MAP) Pulse Ox O2 Delivery O2 Flow Rate FiO2 03/04/19 08:59 18 Room Air 03/04/19 08:59 82 174/80 03/04/19 05:59 96.9 94 I&O- Last 24 Hours up to 6 AM 03/04/19 05:59 Intake Total 1350 ml Balance 1350 ml AMBROSIO SULTANA MD Mar 04, 2019 12:39
[2019-03-04] MEDS: ANALGESIC BALM CRM 120 GM TOP SCH ×2 (16:00→21:38)
--- NOTE | 2019-03-04 16:00 | IPNPDOC ---
PM&R Progress Note DATE OF SERVICE: Mar 04, 2019 Clinical Services Specialist Progress Note Subjective: Patient reporting she feels her legs are getting stronger, but that her shoulders are sore and her legs. REVIEW OF SYSTEMS: The following is a completed review of systems and has been reviewed. Review of systems otherwise unremarkable. PAIN: Patient self reports no pain EYES: No recent vision changes EARS, NOSE, & THROAT: No throat pain, or dysphagia, or rhinorrhea CARDIOVASCULAR: Denies chest pain or palpitations PULMONARY: Denies shortness of breath GASTROINTESTINAL: +constipation GENITOURINARY:denies dysuria MUSCULOSKELETAL: bilat LE weakness NEUROLOGICAL: +bilat LE tremor, residual right sided weakness HEMATOLOGICAL: anemia SKIN: denies rash PSYCHIATRIC: Unremarkable All other review of systems found to be negative. PHYSICAL EXAMINATION: VITAL SIGNS: Please see below. GENERAL: Pleasant and cooperative. No acute distress. HEENT: PERRL. Extraocular movements intact. Clear conjunctiva CARDIOVASCULAR: Regular rate and rhythm. No murmurs, rubs, or gallops LUNGS: Clear to auscultation bilaterally. No wheezes. No rhonchi ABDOMEN: Soft, nontender, nondistended. Positive bowel sounds. Normal active bowel sounds NEUROLOGICAL: Alert and oriented times three. Cranial nerves II through XII grossly intact. Sensation grossly intact. +right pronator drift EXTREMITIES: 5-\5 strength bilateral upper extremities with mild right pronator drift 4\5 strength right lower extremity. 4/5 strength in left lower extremity. SKIN: +fistula ASSESSMENT:74-year-old F with past medical history of ESRD with CHF who presents status post CHF exacerbation with PNA PLAN: 1. Rehab- PT/OT strengthen, stretch, maintain ROM all 4 limbs, fall recovery, advance gait and ADL-ambulating with RW 2. Neuro: hx of stroke with mild residual right sided weakness, hx of spinal stenosis s/p laminectomy in 2018 with persistent LE weakness -c/u ASA and statin for secondary stroke prevention 3. Cardiac: hx of diastolic and systolic CHF s/p recent exacerbation, c/u fluid restrict 1200cc, daily weights, and dialysis- medicine consulted to assist in management -HTN- c/u hydralazine -HLD- c/u statin -CAD- c/u ASA and Coreg 4. resp: s/p course of antibiotics for presumed pneumonia, encourage incentive spirometry, monitor for infection -Duonebs 5. Renal: ESRD on HD --, renal consulted -[facility] 6. Endo: hx of DM c/u levemir and ISS, adjust prn 7. Pain: gabapentin renally dosed at 100mg daily, c/u tramadol at lower dose 50mg BID to avoid daytime somnolence -will trial menthol salicylate rub for bilat shoulders and legs 8. DVT ppx: heparin and teds 9. GI ppx: protonix 10. Dispo: TBD Allergies Coded Allergies: Rzypdyo-Mik-Ewc Reductase Inhibitor (Verified Allergy, Unknown, PAIN, 07/20/18) PT SAYS SHE CAN TAKE PRAVASTATIN Vital Signs Vital Signs Date Time Temp Pulse Resp B/P (MAP) Pulse Ox O2 Delivery O2 Flow Rate FiO2 03/04/19 08:59 18 Room Air 03/04/19 08:59 82 174/80 03/04/19 05:59 96.9 94 Laboratory Data CBC/BMP Laboratory Tests 03/04/19 08:51 Labs 24H Laboratory Tests 2 03/03/19 16:35: Bedside Glucose (Misc Panel) 201H 03/03/19 19:42: Bedside Glucose (Misc Panel) 222H 03/04/19 08:37: Bedside Glucose (Misc Panel) 154H 03/04/19 08:51: Nucleated Red Blood Cells % (auto) 0.3H, Anion Gap 12, Glomerular Filtration Rate 4.9L, Calcium Level 9.0 03/04/19 11:59: Bedside Glucose (Misc Panel) 144H Current Medications Current Medications Current Medications Medications (Trade) Dose Ordered Sig/Jessica Route PRN Reason Start Time Stop Time Status Last Admin Dose Admin Acetaminophen (Tylenol Tab) 650 mg Q4HP PRN PO MILD PAIN (PS 1-4) 02/28/19 16:45 Albuterol/ Ipratropium (Duoneb (Ipr 0.5mg/Alb 2.5mg)) 3 ml RTID NEB 03/01/19 14:00 Aspirin (Ecotrin) 81 mg QHS PO 02/28/19 21:00 03/03/19 21:22 Carvedilol (COReg) 12.5 mg BID PO 02/28/19 21:00 03/04/19 08:59 Darbepoetin Issac (Aranesp (Dialysis Use)) 100 mcg HD IV 03/01/19 12:00 Dextrose (Dextrose 50%) 25 ml ASDIRECTED PRN IV SEE LABEL COMMENTS 02/28/19 16:45 Gabapentin (Neurontin) 100 mg BID PO 02/28/19 21:00 02/28/19 20:15 DC Gabapentin (Neurontin) 100 mg QHS PO 02/28/19 21:00 03/03/19 21:22 Glucagon (Glucagon) 1 mg ASDIRECTED PRN SC SEE LABEL COMMENTS 02/28/19 16:45 Glucose (Glucose) 16 GM ASDIRECTED PRN PO SEE LABEL COMMENTS 02/28/19 16:45 Heparin Sodium (Porcine) (Heparin) 5,000 units Q12H SC 02/28/19 21:00 03/04/19 08:58 Hydralazine HCl (Apresoline) 25 mg Q8H PO 02/28/19 22:00 03/04/19 05:54 Insulin Detemir (Levemir Insulin) 5 units BID SC 02/28/19 21:00 03/04/19 08:58 Insulin Human Lispro (HumaLOG INSULIN) SEE PROTOCOL TABLE AC SC 02/28/19 17:30 02/28/19 19:48 DC Insulin Human Lispro (HumaLOG INSULIN) SEE PROTOCOL TABLE AC SC 03/01/19 07:30 03/04/19 12:23 Insulin Human Lispro (HumaLOG INSULIN) SEE PROTOCOL TABLE QHS SC 02/28/19 21:00 Magnesium Hydroxide (Milk Of Magnesia) 30 ml DAILYPRN PRN PO CONSTIPATION 02/28/19 16:45 Multivitamins (Theragram-M) 1 tab QHS PO 02/28/19 21:00 03/03/19 21:22 Pantoprazole Sodium (Protonix) 40 mg DAILY PO 03/01/19 09:00 03/04/19 08:58 Pravastatin Sodium (Pravachol) 80 mg QHS PO 02/28/19 21:00 03/03/19 21:23 Senna/Docusate Sodium (Senokot S) 2 tab BID PO 02/28/19 21:00 03/04/19 08:58 Sevelamer Carbonate (Renvela) 1,600 mg BIDWM PO 03/01/19 08:00 03/04/19 08:58 Tramadol HCl (Ultram) 50 mg BID PO 02/28/19 21:00 03/04/19 08:59 GURMEET SOLORZANO MD Mar 04, 2019 16:00
[2019-03-04 17:23] VITALS: BP 164/78
[2019-03-04 20:00] VITALS: BP 175/80
[2019-03-04] MEDS: GABAPENTIN 100 MG CAP PO SCH (21:41)
[2019-03-04] MEDS: ASPIRIN 81 MG ENTERIC TAB PO SCH (21:41)
[2019-03-04] MEDS: PRAVASTATIN 20 MG TAB PO SCH (21:42)
[2019-03-04] MEDS: MULTIVITAMINS/MINERALS THERAP 1 TAB PO SCH (21:42)
[2019-03-05] MEDS: **hydrALAZINE HCL** 25 MG TAB PO SCH ×3 (05:53→20:24)
[2019-03-05 06:00] VITALS: BP 146/66
[2019-03-05] MEDS: IPRATROPIUM 0.5MG/ALBUTEROL 2.5MG INH SOL UD 3ML (DUONEB)(J7620) NEB SCH ×3 (08:00→20:00)
[2019-03-05] MEDS: ANALGESIC BALM CRM 120 GM TOP SCH ×3 (09:00→20:25)
[2019-03-05] MEDS: SENOKOT S TAB PO SCH ×2 (09:14→20:24)
[2019-03-05] MEDS: HEPARIN SOD (PORCINE) 5000 UNITS/ML VIAL SC SCH ×2 (09:14→20:22)
[2019-03-05] MEDS: PANTOPRAZOLE 40MG TAB (PROTONIX) PO SCH (09:14)
[2019-03-05] MEDS: CARVedilol 12.5 MG TAB PO SCH ×2 (09:15→20:24)
[2019-03-05] MEDS: (RENVELA) SEVELAMER **CARBONate** 800 MG TAB PO SCH ×2 (09:15→17:16)
[2019-03-05] MEDS: traMADol 50 MG TAB PO SCH ×2 (09:16→20:23)
[2019-03-05] MEDS: HumaLOG INSULIN (NovoLOG) PER UNIT SC SCH ×4 (09:17→20:25)
[2019-03-05] MEDS: LEVEMIR (INSULIN DETEMIR) 1 UNITS/0.01ML SC SCH ×2 (09:17→20:22)
[2019-03-05] MEDS: amLODIPine 5 MG TAB PO SCH ×2 (09:18→20:23)
--- NOTE | 2019-03-05 09:22 | IPNPDOC ---
PM&R Progress Note DATE OF SERVICE: Mar 05, 2019 Furniture Fabricator Progress Note Subjective: Patient reporting the muscle rub helps a little and that she feel stronger overall. REVIEW OF SYSTEMS: The following is a completed review of systems and has been reviewed. Review of systems otherwise unremarkable. PAIN: Patient self reports no pain EYES: No recent vision changes EARS, NOSE, & THROAT: No throat pain, or dysphagia, or rhinorrhea CARDIOVASCULAR: Denies chest pain or palpitations PULMONARY: Denies shortness of breath GASTROINTESTINAL: +constipation GENITOURINARY:denies dysuria MUSCULOSKELETAL: bilat LE weakness NEUROLOGICAL: +bilat LE tremor, residual right sided weakness HEMATOLOGICAL: anemia SKIN: denies rash PSYCHIATRIC: Unremarkable All other review of systems found to be negative. PHYSICAL EXAMINATION: VITAL SIGNS: Please see below. GENERAL: Pleasant and cooperative. No acute distress. HEENT: PERRL. Extraocular movements intact. Clear conjunctiva CARDIOVASCULAR: Regular rate and rhythm. No murmurs, rubs, or gallops LUNGS: Clear to auscultation bilaterally. No wheezes. No rhonchi ABDOMEN: Soft, nontender, nondistended. Positive bowel sounds. Normal active bowel sounds NEUROLOGICAL: Alert and oriented times three. Cranial nerves II through XII grossly intact. Sensation grossly intact. +right pronator drift EXTREMITIES: 5-\5 strength bilateral upper extremities with mild right pronator drift 4\5 strength right lower extremity. 4/5 strength in left lower extremity. SKIN: +fistula ASSESSMENT:74-year-old F with past medical history of ESRD with CHF who presents status post CHF exacerbation with PNA PLAN: 1. Rehab- PT/OT strengthen, stretch, maintain ROM all 4 limbs, fall recovery, advance gait and ADL-ambulating with RW 2. Neuro: hx of stroke with mild residual right sided weakness, hx of spinal stenosis s/p laminectomy in 2018 with persistent LE weakness -c/u ASA and statin for secondary stroke prevention 3. Cardiac: hx of diastolic and systolic CHF s/p recent exacerbation, c/u fluid restrict 1200cc, daily weights, and dialysis- medicine consulted to assist in management -HTN- c/u hydralazine -HLD- c/u statin -CAD- c/u ASA and Coreg 4. resp: s/p course of antibiotics for presumed pneumonia, encourage incentive spirometry, monitor for infection -[place] 5. Renal: ESRD on HD M-W-F, renal consulted -[facility] 6. Endo: hx of DM c/u levemir and ISS, adjust prn 7. Pain: gabapentin renally dosed at 100mg daily, c/u tramadol at lower dose 50mg BID to avoid daytime somnolence -c/u menthol salicylate rub for bilat shoulders and legs 8. DVT ppx: heparin and teds 9. GI ppx: protonix 10. Dispo: TBD Allergies Coded Allergies: Wjqfdli-Baa-Mel Reductase Inhibitor (Verified Allergy, Unknown, PAIN, 07/20/18) PT SAYS SHE CAN TAKE PRAVASTATIN Vital Signs Vital Signs Date Time Temp Pulse Resp B/P (MAP) Pulse Ox O2 Delivery O2 Flow Rate FiO2 03/05/19 09:18 74 146/66 03/05/19 09:16 20 Room Air 03/05/19 06:00 96.7 98 Laboratory Data Labs 24H Laboratory Tests 2 03/04/19 11:59: Bedside Glucose (Misc Panel) 144H 03/04/19 17:17: Bedside Glucose (Misc Panel) 84 03/04/19 20:15: Bedside Glucose (Misc Panel) 186H 03/05/19 07:32: Bedside Glucose (Misc Panel) 137H Current Medications Current Medications Current Medications Medications (Trade) Dose Ordered Sig/Jessica Route PRN Reason Start Time Stop Time Status Last Admin Dose Admin Acetaminophen (Tylenol Tab) 650 mg Q4HP PRN PO MILD PAIN (PS 1-4) 02/28/19 16:45 Albuterol/ Ipratropium (Duoneb (Ipr 0.5mg/Alb 2.5mg)) 3 ml RTID NEB 03/01/19 14:00 Amlodipine Besylate (Norvasc) 5 mg BID PO 03/05/19 09:00 03/05/19 09:18 Aspirin (Ecotrin) 81 mg QHS PO 02/28/19 21:00 03/04/19 21:41 Carvedilol (COReg) 12.5 mg BID PO 02/28/19 21:00 03/05/19 09:15 Darbepoetin Issac (Aranesp (Dialysis Use)) 100 mcg HD IV 03/01/19 12:00 Dextrose (Dextrose 50%) 25 ml ASDIRECTED PRN IV SEE LABEL COMMENTS 02/28/19 16:45 Gabapentin (Neurontin) 100 mg BID PO 02/28/19 21:00 02/28/19 20:15 DC Gabapentin (Neurontin) 100 mg QHS PO 02/28/19 21:00 03/04/19 21:41 Glucagon (Glucagon) 1 mg ASDIRECTED PRN SC SEE LABEL COMMENTS 02/28/19 16:45 Glucose (Glucose) 16 GM ASDIRECTED PRN PO SEE LABEL COMMENTS 02/28/19 16:45 Heparin Sodium (Porcine) (Heparin) 5,000 units Q12H SC 02/28/19 21:00 03/05/19 09:14 Hydralazine HCl (Apresoline) 25 mg Q8H PO 02/28/19 22:00 03/05/19 05:53 Insulin Detemir (Levemir Insulin) 5 units BID SC 02/28/19 21:00 03/05/19 09:17 Insulin Human Lispro (HumaLOG INSULIN) SEE PROTOCOL TABLE AC SC 02/28/19 17:30 02/28/19 19:48 DC Insulin Human Lispro (HumaLOG INSULIN) SEE PROTOCOL TABLE AC SC 03/01/19 07:30 03/05/19 09:17 Insulin Human Lispro (HumaLOG INSULIN) SEE PROTOCOL TABLE QHS SC 02/28/19 21:00 Magnesium Hydroxide (Milk Of Magnesia) 30 ml DAILYPRN PRN PO CONSTIPATION 02/28/19 16:45 Menthol/Methyl Salicylate (Bengay Cream) apply to bilateral shou... TID TOP 03/04/19 16:00 03/04/19 21:38 Multivitamins (Theragram-M) 1 tab QHS PO 02/28/19 21:00 03/04/19 21:42 Pantoprazole Sodium (Protonix) 40 mg DAILY PO 03/01/19 09:00 03/05/19 09:14 Pravastatin Sodium (Pravachol) 80 mg QHS PO 02/28/19 21:00 03/04/19 21:42 Senna/Docusate Sodium (Senokot S) 2 tab BID PO 02/28/19 21:00 03/05/19 09:14 Sevelamer Carbonate (Renvela) 1,600 mg BIDWM PO 03/01/19 08:00 03/05/19 09:15 Tramadol HCl (Ultram) 50 mg BID PO 02/28/19 21:00 03/05/19 09:16 GURMEET SOLORZANO MD Mar 05, 2019 09:22
--- NOTE | 2019-03-05 13:47 | IPN ---
DATE: 03/04/2019 Bree is seen and examined this morning at the bedside in the rehabilitation unit and later in the evening as well. She denies any shortness of breath or dyspnea with exertion. She is dialyzed this evening with 2 liters of fluid removed. Vital Signs: Temperature 96.7, pulse 74, respiratory rate 18, blood pressure 164/78, saturating 96% in room air. Intake yesterday was 1350, dialysis today removed 2 liters. Weight on the bed scale today was 73 kg. General: Patient is seen lying in bed awake, alert, oriented, comfortable in no distress. Extraocular muscles are intact. Pupils are round and reactive to light. Heart sounds are regular. S1, S2. No edema in the legs. No facial puffiness. Lungs are clear to auscultation. No crackles, rales or rhonchus. Abdomen is soft and nontender. There are bowel sounds. Neurologic: She is oriented times three. No focal deficit. Interactive and conversational. Extremities: Negative for clubbing or cyanosis or edema. The left upper extremity fistula is patent with thrill and bruit. Skin: Normal temperature and turgor. LABS: White count hemoglobin 10.4. Sodium 133, potassium 5.1, calcium 9.0. INPATIENT MEDICATIONS: Reviewed by myself and no changes compared to yesterday. PROBLEMS: 1. End-stage renal disease on hemodialysis on Monday, Monday and Monday schedule. Patient is dialyzed today with 2 liters of fluid removed, which she tolerated well. We will continue to keep a close eye on her volume status given recent admission for decompensated heart failure. She is compliant with fluid restriction. 2. Chronic combined systolic and diastolic congestive heart failure. Management of her volume status is principally by dialysis. Continue fluid restriction and we removed 2 liters of fluid with dialysis today. 3. Hypertension with hypertensive heart disease: She is on carvedilol and hydralazine. Her blood pressures have been elevated today. If there is no improvement with fluid removal then her antihypertensives will be adjusted tomorrow. 4. Anemia on end-stage renal disease: Hemoglobin is 10.4, which is optimal. Continue current dose of Aranesp. 5. Renal osteodystrophy: Continue Renvela.
[2019-03-05 14:00] VITALS: BP 142/65
--- NOTE | 2019-03-05 14:55 | IPN ---
DATE: 03/05/2019 Patient was seen and examined at the bedside. Chart has been reviewed. She complains of some shortness of breath when she ambulates, especially after working with physical therapy about 10-15 feet. Denies any paroxysmal nocturnal dyspnea (PND) orthopnea. Patient has had blood pressure of 180 for systolic but denies any chest pain, pressure, tightness, dizziness, lightheadedness. No headaches or changes in vision. Temperature 96.7, pulse 74, respiratory rate 18, blood pressure 146/66 to 184/78, 98% in room air. Generally, patient is awake, alert, oriented to person, place and time answering questions appropriately. No conversational dyspnea. Able to speak in full sentences. No jugular venous distention (JVD), thyromegaly or cervical lymphadenopathy. Lungs are clear to auscultation. No wheezing rales or rhonchi. Air entry is equal bilaterally. AP diameter is normal. Heart: S1, S2. Normal sinus rhythm. Abdomen is obese, soft, nontender, nondistended. Positive bowel sounds times four quadrants. No abdominal bruits. No hepatosplenomegaly. No rebound or guarding. Extremities: Trace edema bilateral lower extremities. LABORATORY DATA: 03/04/2019: White count 7.1, hemoglobin 10, hematocrit 36, platelet count 217. Sodium 132, potassium 5.1, chloride 96, bicarbonate 25, BUN 71, creatinine, glucose 216. IMAGING STUDIES: 02/23/[address]: Congestive heart failure (CHF), pulmonary edema, stable pulmonary nodules. ASSESSMENT/PLAN: This is a 74-year-old female with a history of end-stage renal disease on maintenance hemodialysis on Monday, Monday and Monday, chronic systolic and diastolic heart failure, hypertensive heart disease, anemia due to end-stage renal disease, chronic kidney disease, mineral bone disease, admitted due to shortness of breath and cough. Found to have congestive heart failure exacerbation on admission. The patient was initially diuresed with resolution of fluid overload and respiratory distress. She was initially treated with broad-spectrum antibiotics, vancomycin, Zosyn and erythromycin for presumed pneumonia, which she completed. No diarrhea during hospital stay. Patient is currently in acute rehabilitation for physical therapy services. Active issues are as follows: 1. End-stage renal disease on maintenance dialysis Monday, Monday, Monday managed by nephrology on consult. 2. Deconditioning: Currently in acute rehabilitation managed by Dr. Marita James. 3. Type 2 diabetes: On Levemir insulin 5 units twice a day, sliding scale, consistent carbohydrate diet. 4. Hypertension on Coreg: Appears to be in control with episodes of systolic pressure of 180 on hydralazine 25 every 8 hours. 5. Dyslipidemia: On Pravachol 80 nightly. 6. Chronic neuropathy on Neurontin nightly. Deep venous thrombosis (DVT) prophylaxis on heparin subcu 5000 units every 12 hours. MTDD
[2019-03-05 20:00] VITALS: BP 184/86
[2019-03-05] MEDS: MULTIVITAMINS/MINERALS THERAP 1 TAB PO SCH (20:22)
[2019-03-05] MEDS: ASPIRIN 81 MG ENTERIC TAB PO SCH (20:23)
[2019-03-05] MEDS: PRAVASTATIN 20 MG TAB PO SCH (20:25)
[2019-03-05] MEDS: GABAPENTIN 100 MG CAP PO SCH (20:25)
[2019-03-06] MEDS: **hydrALAZINE HCL** 25 MG TAB PO SCH ×3 (05:15→21:48)
[2019-03-06 06:00] VITALS: BP 152/66
[2019-03-06 06:48] LABS: HEMATOCRIT 32.3 % (36.0-47.0); HEMOGLOBIN 9.6 g/dl (12.0-15.5); MEAN CORPUSCULAR HEMOGLOBIN 26.9 pg (27.0-33.0); MEAN CORPUSCULAR HGB CONC 29.7 g/dl (32.0-36.5); MEAN CORPUSCULAR VOLUME 90.5 fl (80.0-96.0); PLATELET COUNT, AUTOMATED 206 10^3/uL (150-450); RED BLOOD COUNT 3.57 10^6/uL (4.00-5.40); WHITE BLOOD COUNT 5.9 10^3/uL (4.0-10.0)
[2019-03-06 07:15] LABS: CALCIUM LEVEL 8.6 MG/DL (8.8-10.2); CREATININE FOR GFR 7.54 MG/DL (0.55-1.30); GLOMERULAR FILTRATION RATE 6.8 (>39); POTASSIUM SERUM 5.1 MEQ/L (3.5-5.1)
[2019-03-06] MEDS: IPRATROPIUM 0.5MG/ALBUTEROL 2.5MG INH SOL UD 3ML (DUONEB)(J7620) NEB SCH ×3 (08:00→20:00)
[2019-03-06] MEDS: HumaLOG INSULIN (NovoLOG) PER UNIT SC SCH ×4 (08:28→20:42)
[2019-03-06] MEDS: SENOKOT S TAB PO SCH ×2 (08:28→20:34)
[2019-03-06] MEDS: PANTOPRAZOLE 40MG TAB (PROTONIX) PO SCH (08:28)
[2019-03-06] MEDS: LEVEMIR (INSULIN DETEMIR) 1 UNITS/0.01ML SC SCH ×2 (08:28→20:39)
[2019-03-06] MEDS: (RENVELA) SEVELAMER **CARBONate** 800 MG TAB PO SCH ×2 (08:28→20:38)
[2019-03-06] MEDS: CARVedilol 12.5 MG TAB PO SCH ×2 (08:29→20:37)
[2019-03-06] MEDS: amLODIPine 5 MG TAB PO SCH (08:29)
[2019-03-06] MEDS: traMADol 50 MG TAB PO SCH (08:30)
[2019-03-06] MEDS: HEPARIN SOD (PORCINE) 5000 UNITS/ML VIAL SC SCH ×2 (08:30→20:42)
[2019-03-06] MEDS: ANALGESIC BALM CRM 120 GM TOP SCH ×3 (08:30→20:43)
[2019-03-06] MEDS ORDERED: HEPARIN 1,000 UNITS/ML 10ML VIAL (FOR RADIOLOGY& DIALYSIS ONLY) IV ONE ×2 (11:00→11:15)
[2019-03-06] MEDS ORDERED: LIDOCAINE 1% SDV 5 ML VIAL SQ ONE (11:00)
--- NOTE | 2019-03-06 12:21 | IPNPDOC ---
PM&R Progress Note DATE OF SERVICE: Mar 06, 2019 Rn Prior Authorization Progress Note Subjective: Patient reporting she does not want to continue taking tramadol for her pain and is open to an alternative medication. REVIEW OF SYSTEMS: The following is a completed review of systems and has been reviewed. Review of systems otherwise unremarkable. PAIN: Patient self reports no pain EYES: No recent vision changes EARS, NOSE, & THROAT: No throat pain, or dysphagia, or rhinorrhea CARDIOVASCULAR: Denies chest pain or palpitations PULMONARY: Denies shortness of breath GASTROINTESTINAL: +constipation GENITOURINARY:denies dysuria MUSCULOSKELETAL: bilat LE weakness NEUROLOGICAL: +bilat LE tremor, residual right sided weakness HEMATOLOGICAL: anemia SKIN: denies rash PSYCHIATRIC: Unremarkable All other review of systems found to be negative. PHYSICAL EXAMINATION: VITAL SIGNS: Please see below. GENERAL: Pleasant and cooperative. No acute distress. HEENT: PERRL. Extraocular movements intact. Clear conjunctiva CARDIOVASCULAR: Regular rate and rhythm. No murmurs, rubs, or gallops LUNGS: Clear to auscultation bilaterally. No wheezes. No rhonchi ABDOMEN: Soft, nontender, nondistended. Positive bowel sounds. Normal active bowel sounds NEUROLOGICAL: Alert and oriented times three. Cranial nerves II through XII grossly intact. Sensation grossly intact. +right pronator drift EXTREMITIES: 5-\5 strength bilateral upper extremities with mild right pronator drift 4\5 strength right lower extremity. 4/5 strength in left lower extremity. SKIN: +fistula ASSESSMENT:74-year-old F with past medical history of ESRD with CHF who presents status post CHF exacerbation with PNA PLAN: 1. Rehab- PT/OT strengthen, stretch, maintain ROM all 4 limbs, fall recovery, advance gait and ADL-ambulating with RW 2. Neuro: hx of stroke with mild residual right sided weakness, hx of spinal stenosis s/p laminectomy in 2018 with persistent LE weakness -c/u ASA and statin for secondary stroke prevention 3. Cardiac: hx of diastolic and systolic CHF s/p recent exacerbation, c/u fluid restrict 1200cc, daily weights, and dialysis- medicine consulted to assist in management -HTN- c/u hydralazine -HLD- c/u statin -CAD- c/u ASA and Coreg 4. resp: s/p course of antibiotics for presumed pneumonia, encourage incentive spirometry, monitor for infection -Duonebs 5. Renal: ESRD on HD -W-, renal consulted -[facility] 6. Endo: hx of DM c/u levemir and ISS, adjust prn 7. Pain: gabapentin renally dosed at 100mg daily, will start Effexor 37.5 BID for pain -c/u menthol salicylate rub for bilat shoulders and legs 8. DVT ppx: heparin and teds 9. GI ppx: protonix 10. Dispo: 03-12-19 to home Allergies Coded Allergies: Svjbhiv-Ayi-Wft Reductase Inhibitor (Verified Allergy, Unknown, PAIN, 07/20/18) PT SAYS SHE CAN TAKE PRAVASTATIN Vital Signs Vital Signs Date Time Temp Pulse Resp B/P (MAP) Pulse Ox O2 Delivery O2 Flow Rate FiO2 03/06/19 08:30 18 Room Air 03/06/19 08:29 78 152/66 03/06/19 06:00 99.6 100 Laboratory Data CBC/BMP Laboratory Tests 03/06/19 06:32 Labs 24H Laboratory Tests 2 03/05/19 16:26: Bedside Glucose (Misc Panel) 149H 03/05/19 19:46: Bedside Glucose (Misc Panel) 146H 03/06/19 05:58: Bedside Glucose (Misc Panel) 135H 03/06/19 06:32: Nucleated Red Blood Cells % (auto) 0.0, Anion Gap 10, Glomerular Filtration Rate 6.8L, Calcium Level 8.6L 03/06/19 12:06: Bedside Glucose (Misc Panel) 132H Current Medications Current Medications Current Medications Medications (Trade) Dose Ordered Sig/Jessica Route PRN Reason Start Time Stop Time Status Last Admin Dose Admin Acetaminophen (Tylenol Tab) 650 mg Q4HP PRN PO MILD PAIN (PS 1-4) 02/28/19 16:45 Albuterol/ Ipratropium (Duoneb (Ipr 0.5mg/Alb 2.5mg)) 3 ml RTID NEB 03/01/19 14:00 Amlodipine Besylate (Norvasc) 5 mg BID PO 03/05/19 09:00 03/06/19 08:29 Aspirin (Ecotrin) 81 mg QHS PO 02/28/19 21:00 03/05/19 20:23 Carvedilol (COReg) 12.5 mg BID PO 02/28/19 21:00 03/06/19 08:29 Darbepoetin Issac (Aranesp (Dialysis Use)) 100 mcg HD IV 03/01/19 12:00 Dextrose (Dextrose 50%) 25 ml ASDIRECTED PRN IV SEE LABEL COMMENTS 02/28/19 16:45 Gabapentin (Neurontin) 100 mg BID PO 02/28/19 21:00 02/28/19 20:15 DC Gabapentin (Neurontin) 100 mg QHS PO 02/28/19 21:00 03/05/19 20:25 Glucagon (Glucagon) 1 mg ASDIRECTED PRN SC SEE LABEL COMMENTS 02/28/19 16:45 Glucose (Glucose) 16 GM ASDIRECTED PRN PO SEE LABEL COMMENTS 02/28/19 16:45 Heparin Sodium (Porcine) (Heparin) 5,000 units Q12H SC 02/28/19 21:00 03/06/19 08:30 Hydralazine HCl (Apresoline) 25 mg Q8H PO 02/28/19 22:00 03/06/19 05:15 Insulin Detemir (Levemir Insulin) 5 units BID SC 02/28/19 21:00 03/06/19 08:28 Insulin Human Lispro (HumaLOG INSULIN) SEE PROTOCOL TABLE AC SC 02/28/19 17:30 02/28/19 19:48 DC Insulin Human Lispro (HumaLOG INSULIN) SEE PROTOCOL TABLE AC SC 03/01/19 07:30 03/06/19 08:28 Insulin Human Lispro (HumaLOG INSULIN) SEE PROTOCOL TABLE QHS SC 02/28/19 21:00 Magnesium Hydroxide (Milk Of Magnesia) 30 ml DAILYPRN PRN PO CONSTIPATION 02/28/19 16:45 Menthol/Methyl Salicylate (Bengay Cream) apply to bilateral shou... TID TOP 03/04/19 16:00 03/04/19 21:38 Multivitamins (Theragram-M) 1 tab QHS PO 02/28/19 21:00 03/05/19 20:22 Pantoprazole Sodium (Protonix) 40 mg DAILY PO 03/01/19 09:00 03/06/19 08:28 Pravastatin Sodium (Pravachol) 80 mg QHS PO 02/28/19 21:00 03/05/19 20:25 Senna/Docusate Sodium (Senokot S) 2 tab BID PO 02/28/19 21:00 03/06/19 08:28 Sevelamer Carbonate (Renvela) 1,600 mg BIDWM PO 03/01/19 08:00 03/06/19 08:28 Tramadol HCl (Ultram) 50 mg BID PO 02/28/19 21:00 03/06/19 08:30 GURMEET SOLORZANO MD Mar 06, 2019 12:21
[2019-03-06 14:00] VITALS: BP 163/78
--- NOTE | 2019-03-06 14:04 | IPN ---
DATE OF SERVICE: 03/06/2019 Bree is seen and examined this afternoon in the hemodialysis unit receiving her maintenance treatment. She offers no complaints. Blood sugars remain well controlled. She denies dyspnea with exertion. She was started on amlodipine recently. Temperature 99.6, pulse 78, respiratory rate 18, blood pressure 152/66, saturating 100% on room air. Intake yesterday was 1 liter. Goal dialysis removal today will be 2 liters. Weight in the bed scale today is 73.7 kg. General: The patient is seen in the hemodialysis unit receiving her treatment awake, alert, oriented, comfortable, in no acute distress, smiling. Extraocular muscles are intact. Pupils are round and reactive to light. Clear conjunctiva. Heart sounds are regular. S1, S2. No edema in the legs nor dependent area. Lungs were clear to auscultation bilaterally. No crackle, rale or rhonchus. Abdomen is soft and nontender. There are bowel sounds. Extremities: Show fistula in the left upper arm, which is presently in use. Lower extremities are negative for clubbing, cyanosis or edema. Neurologic: She is oriented times three. No focal deficit. Interactive and conversational. Skin: Normal temperature and turgor. LABS: White count 5.9, hemoglobin 9.6, platelet 206. Sodium 131, potassium 5.1. INPATIENT MEDICATIONS: Reviewed by myself. Noted that her amlodipine was switched to 10 mg at bedtime. Remainder OF medications are unchanged as compared to yesterday. PROBLEMS: 1. End-stage renal disease. On hemodialysis on Monday, Monday, Monday schedule. She is dialyzed today with goal fluid removal of 2 liters. Her electrolytes and volume status are acceptable. She was started on amlodipine on this admission and we will keep a close eye on blood pressure during the hemodialysis treatment to make sure there is no persistent hypotension of hemodialysis with fluid removal. Continue current fluid restriction. 2. Chronic combined systolic and diastolic congestive heart failure. Volume status is regulated via hemodialysis. She is reasonably compensated. Continue fluid restriction, and we remove 2 liters of fluid with each treatment. 3. Hypertension with hypertensive heart disease. Her blood pressures were elevated. She was on Carvedilol and hydralazine. I see amlodipine 10 mg has been added at bedtime. Her blood pressure control has improved. We will just need to keep an eye and make sure that she does not have any worsening hypotension of hemodialysis. 4. Anemia of end-stage renal disease. Hemoglobin is less than 10. She is continued on Aranesp. 5. Renal osteodystrophy. Continue Renvela.
[2019-03-06] MEDS: GABAPENTIN 100 MG CAP PO SCH (20:33)
[2019-03-06] MEDS: MULTIVITAMINS/MINERALS THERAP 1 TAB PO SCH (20:34)
[2019-03-06] MEDS: ASPIRIN 81 MG ENTERIC TAB PO SCH (20:37)
[2019-03-06] MEDS: VENLAFAXINE 37.5 MG TAB PO SCH (20:38)
[2019-03-06] MEDS: PRAVASTATIN 20 MG TAB PO SCH (20:39)
[2019-03-06 20:40] VITALS: BP 182/78
[2019-03-06] MEDS ORDERED: amLODIPine 10 MG TAB PO SCH (21:00)
[2019-03-06 21:49] VITALS: BP_SYST 170; BP_DIAS 70; BP_DIAS 78
[2019-03-06 23:00] VITALS: BP 158/80
[2019-03-07] MEDS: traZODone 25MG PER 1/2 TABLET PO PRN (01:37)
[2019-03-07] MEDS: **hydrALAZINE HCL** 25 MG TAB PO SCH ×3 (05:50→20:24)
[2019-03-07 06:00] VITALS: BP 123/60
[2019-03-07] MEDS: IPRATROPIUM 0.5MG/ALBUTEROL 2.5MG INH SOL UD 3ML (DUONEB)(J7620) NEB SCH ×3 (08:00→18:27)
[2019-03-07] MEDS: PANTOPRAZOLE 40MG TAB (PROTONIX) PO SCH (08:38)
[2019-03-07] MEDS: SENOKOT S TAB PO SCH ×2 (08:39→20:24)
[2019-03-07] MEDS: LEVEMIR (INSULIN DETEMIR) 1 UNITS/0.01ML SC SCH ×2 (08:39→20:23)
[2019-03-07] MEDS: (RENVELA) SEVELAMER **CARBONate** 800 MG TAB PO SCH ×2 (08:39→17:35)
[2019-03-07] MEDS: CARVedilol 12.5 MG TAB PO SCH ×2 (08:39→20:25)
[2019-03-07] MEDS: HumaLOG INSULIN (NovoLOG) PER UNIT SC SCH ×4 (08:40→20:26)
[2019-03-07] MEDS: VENLAFAXINE 37.5 MG TAB PO SCH ×2 (08:40→20:25)
[2019-03-07] MEDS: HEPARIN SOD (PORCINE) 5000 UNITS/ML VIAL SC SCH ×2 (08:45→20:23)
[2019-03-07] MEDS: ANALGESIC BALM CRM 120 GM TOP SCH ×3 (08:45→20:26)
[2019-03-07 14:00] VITALS: BP 148/70
--- NOTE | 2019-03-07 16:28 | IPNPDOC ---
PM&R Progress Note DATE OF SERVICE: Mar 07, 2019 [employer] Progress Note Subjective: Patient reporting she didn't even notice having any pain today since starting Effexor and is pleased to be feeling better. REVIEW OF SYSTEMS: The following is a completed review of systems and has been reviewed. Review of systems otherwise unremarkable. PAIN: Patient self reports no pain EYES: No recent vision changes EARS, NOSE, & THROAT: No throat pain, or dysphagia, or rhinorrhea CARDIOVASCULAR: Denies chest pain or palpitations PULMONARY: Denies shortness of breath GASTROINTESTINAL: +constipation GENITOURINARY:denies dysuria MUSCULOSKELETAL: bilat LE weakness NEUROLOGICAL: +bilat LE tremor, residual right sided weakness HEMATOLOGICAL: anemia SKIN: denies rash PSYCHIATRIC: Unremarkable All other review of systems found to be negative. PHYSICAL EXAMINATION: VITAL SIGNS: Please see below. GENERAL: Pleasant and cooperative. No acute distress. HEENT: PERRL. Extraocular movements intact. Clear conjunctiva CARDIOVASCULAR: Regular rate and rhythm. No murmurs, rubs, or gallops LUNGS: Clear to auscultation bilaterally. No wheezes. No rhonchi ABDOMEN: Soft, nontender, nondistended. Positive bowel sounds. Normal active anai wel sounds NEUROLOGICAL: Alert and oriented times three. Cranial nerves II through XII grossly intact. Sensation grossly intact. +right pronator drift EXTREMITIES: 5-\5 strength bilateral upper extremities with mild right pronator drift 4\5 strength right lower extremity. 4/5 strength in left lower extremity. SKIN: +fistula ASSESSMENT:74-year-old F with past medical history of ESRD with CHF who presents status post CHF exacerbation with PNA PLAN: 1. Rehab- PT/OT strengthen, stretch, maintain ROM all 4 limbs, fall recovery, advance gait and ADL-ambulating with RW 2. Neuro: hx of stroke with mild residual right sided weakness, hx of spinal stenosis s/p laminectomy in 2018 with persistent LE weakness -c/u ASA and statin for secondary stroke prevention 3. Cardiac: hx of diastolic and systolic CHF s/p recent exacerbation, c/u fluid restrict 1200cc, daily weights, and dialysis- medicine consulted to assist in management -HTN- c/u hydralazine -HLD- c/u statin -CAD- c/u ASA and Coreg 4. resp: s/p course of antibiotics for presumed pneumonia, encourage incentive spirometry, monitor for infection -[place] 5. Renal: ESRD on HD -W-, renal consulted -[facility] 6. Endo: hx of DM c/u levemir and ISS, adjust prn 7. Pain: gabapentin renally dosed at 100mg daily,c/u Effexor 37.5 BID for pain -c/u menthol salicylate rub for bilat shoulders and legs 8. DVT ppx: heparin and teds 9. GI ppx: protonix 10. Dispo: 03-12-19 to home Allergies Coded Allergies: [id number]-Omi Reductase Inhibitor (Verified Allergy, Unknown, PAIN, 07/20/18) PT SAYS SHE CAN TAKE PRAVASTATIN Vital Signs Vital Signs Date Time Temp Pulse Resp B/P (MAP) Pulse Ox O2 Delivery O2 Flow Rate FiO2 03/07/19 14:54 148/70 03/07/19 14:00 98.5 81 18 99 Room Air 03/07/19 06:00 1.0 Laboratory Data Labs 24H Laboratory Tests 2 03/06/19 20:27: Bedside Glucose (Misc Panel) 91 03/07/19 07:45: Bedside Glucose (Misc Panel) 201H 03/07/19 12:10: Bedside Glucose (Misc Panel) 90 Current Medications Current Medications Current Medications Medications (Trade) Dose Ordered Sig/Jessica Route PRN Reason Start Time Stop Time Status Last Admin Dose Admin Acetaminophen (Tylenol Tab) 650 mg Q4HP PRN PO MILD PAIN (PS 1-4) 02/28/19 16:45 Albuterol/ Ipratropium (Duoneb (Ipr 0.5mg/Alb 2.5mg)) 3 ml RTID NEB 03/01/19 14:00 Amlodipine Besylate (Norvasc) 5 mg BID PO 03/05/19 09:00 03/06/19 12:30 DC 03/06/19 08:29 Amlodipine Besylate (Norvasc) 5 mg QHS PO 03/07/19 21:00 Amlodipine Besylate (Norvasc) 10 mg QHS PO 03/06/19 21:00 03/07/19 09:52 DC 03/06/19 20:37 Aspirin (Ecotrin) 81 mg QHS PO 02/28/19 21:00 03/06/19 20:37 Carvedilol (COReg) 12.5 mg BID PO 02/28/19 21:00 03/07/19 08:39 Darbepoetin Issac (Aranesp (Dialysis Use)) 100 mcg HD IV 03/01/19 12:00 Dextrose (Dextrose 50%) 25 ml ASDIRECTED PRN IV SEE LABEL COMMENTS 02/28/19 16:45 Gabapentin (Neurontin) 100 mg BID PO 02/28/19 21:00 02/28/19 20:15 DC Gabapentin (Neurontin) 100 mg QHS PO 02/28/19 21:00 03/06/19 20:33 Glucagon (Glucagon) 1 mg ASDIRECTED PRN SC SEE LABEL COMMENTS 02/28/19 16:45 Glucose (Glucose) 16 GM ASDIRECTED PRN PO SEE LABEL COMMENTS 02/28/19 16:45 Heparin Sodium (Porcine) (Heparin) 5,000 units Q12H SC 02/28/19 21:00 03/06/19 08:30 Hydralazine HCl (Apresoline) 25 mg Q8H PO 02/28/19 22:00 03/07/19 14:54 Insulin Detemir (Levemir Insulin) 5 units BID SC 02/28/19 21:00 03/07/19 08:39 Insulin Human Lispro (HumaLOG INSULIN) SEE PROTOCOL TABLE AC SC 02/28/19 17:30 02/28/19 19:48 DC Insulin Human Lispro (HumaLOG INSULIN) SEE PROTOCOL TABLE AC SC 03/01/19 07:30 03/07/19 08:40 Insulin Human Lispro (HumaLOG INSULIN) SEE PROTOCOL TABLE QHS SC 02/28/19 21:00 Magnesium Hydroxide (Milk Of Magnesia) 30 ml DAILYPRN PRN PO CONSTIPATION 02/28/19 16:45 Menthol/Methyl Salicylate (Bengay Cream) apply to bilateral shou... TID TOP 03/04/19 16:00 03/07/19 14:57 Multivitamins (Theragram-M) 1 tab QHS PO 02/28/19 21:00 03/06/19 20:34 Pantoprazole Sodium (Protonix) 40 mg DAILY PO 03/01/19 09:00 03/07/19 08:38 Pravastatin Sodium (Pravachol) 80 mg QHS PO 02/28/19 21:00 03/06/19 20:39 Senna/Docusate Sodium (Senokot S) 2 tab BID PO 02/28/19 21:00 03/07/19 08:39 Sevelamer Carbonate (Renvela) 1,600 mg BIDWM PO 03/01/19 08:00 03/07/19 08:39 Tramadol HCl (Ultram) 50 mg BID PO 02/28/19 21:00 03/06/19 17:23 DC 03/06/19 08:30 Trazodone HCl (Desyrel) 25 mg QHSP PRN PO INSOMNIA 03/06/19 17:30 03/07/19 01:37 Venlafaxine HCl (Effexor) 37.5 mg BID PO 03/06/19 21:00 03/07/19 08:40 GURMEET SOLORZANO MD Mar 07, 2019 16:28
[2019-03-07 20:00] VITALS: BP 171/74
[2019-03-07] MEDS: GABAPENTIN 100 MG CAP PO SCH (20:24)
[2019-03-07] MEDS: amLODIPine 5 MG TAB PO SCH (20:24)
[2019-03-07] MEDS: ASPIRIN 81 MG ENTERIC TAB PO SCH (20:24)
[2019-03-07] MEDS: MULTIVITAMINS/MINERALS THERAP 1 TAB PO SCH (20:25)
[2019-03-07] MEDS: PRAVASTATIN 20 MG TAB PO SCH (20:25)
[2019-03-08 05:57] VITALS: BP 156/70
[2019-03-08] MEDS: **hydrALAZINE HCL** 25 MG TAB PO SCH ×3 (06:17→20:30)
[2019-03-08 06:48] LABS: HEMATOCRIT 33.3 % (36.0-47.0); HEMOGLOBIN 9.4 g/dl (12.0-15.5); MEAN CORPUSCULAR HGB CONC 28.2 g/dl (32.0-36.5); MEAN CORPUSCULAR VOLUME 92.2 fl (80.0-96.0); PLATELET COUNT, AUTOMATED 197 10^3/uL (150-450); RED BLOOD COUNT 3.61 10^6/uL (4.00-5.40); WHITE BLOOD COUNT 5.5 10^3/uL (4.0-10.0)
[2019-03-08 07:18] LABS: CALCIUM LEVEL 8.5 MG/DL (8.8-10.2); CREATININE FOR GFR 7.46 MG/DL (0.55-1.30); GLOMERULAR FILTRATION RATE 6.9 (>39); POTASSIUM SERUM 5.4 MEQ/L (3.5-5.1)
[2019-03-08] MEDS: IPRATROPIUM 0.5MG/ALBUTEROL 2.5MG INH SOL UD 3ML (DUONEB)(J7620) NEB SCH ×3 (07:19→18:15)
[2019-03-08] MEDS: HEPARIN SOD (PORCINE) 5000 UNITS/ML VIAL SC SCH ×2 (09:00→20:28)
[2019-03-08] MEDS: (RENVELA) SEVELAMER **CARBONate** 800 MG TAB PO SCH ×2 (09:24→18:26)
[2019-03-08] MEDS: PANTOPRAZOLE 40MG TAB (PROTONIX) PO SCH (09:24)
[2019-03-08] MEDS: VENLAFAXINE 37.5 MG TAB PO SCH (09:24)
[2019-03-08] MEDS: SENOKOT S TAB PO SCH ×2 (09:24→20:29)
[2019-03-08] MEDS: HumaLOG INSULIN (NovoLOG) PER UNIT SC SCH ×4 (09:26→20:31)
[2019-03-08] MEDS: ANALGESIC BALM CRM 120 GM TOP SCH ×3 (09:27→20:31)
[2019-03-08] MEDS: LEVEMIR (INSULIN DETEMIR) 1 UNITS/0.01ML SC SCH ×2 (09:27→20:29)
[2019-03-08] MEDS: CARVedilol 12.5 MG TAB PO SCH ×2 (09:28→20:29)
[2019-03-08] MEDS ORDERED: PATIROMER SORBITEX CALCIUM 8.4 GM POWDER PACKET (VELTASSA) PO ONE (11:00)
[2019-03-08 14:00] VITALS: BP 157/71
[2019-03-08] MEDS ORDERED: HEPARIN 1,000 UNITS/ML 10ML VIAL (FOR RADIOLOGY& DIALYSIS ONLY) IV ONE (14:30)
[2019-03-08] MEDS ORDERED: LIDOCAINE 1% SDV 5 ML VIAL SQ ONE (14:30)
--- NOTE | 2019-03-08 16:19 | IPNPDOC ---
PM&R Progress Note DATE OF SERVICE: Mar 08, 2019 [employer] Progress Note Subjective: Patient reporting she feels well overall and is ready to go home next week. REVIEW OF SYSTEMS: The following is a completed review of systems and has been reviewed. Review of systems otherwise unremarkable. PAIN: Patient self reports no pain EYES: No recent vision changes EARS, NOSE, & THROAT: No throat pain, or dysphagia, or rhinorrhea CARDIOVASCULAR: Denies chest pain or palpitations PULMONARY: Denies shortness of breath GASTROINTESTINAL: +constipation GENITOURINARY:denies dysuria MUSCULOSKELETAL: bilat LE weakness NEUROLOGICAL: +bilat LE tremor, residual right sided weakness HEMATOLOGICAL: anemia SKIN: denies rash PSYCHIATRIC: Unremarkable All other review of systems found to be negative. PHYSICAL EXAMINATION: VITAL SIGNS: Please see below. GENERAL: Pleasant and cooperative. No acute distress. HEENT: PERRL. Extraocular movements intact. Clear conjunctiva CARDIOVASCULAR: Regular rate and rhythm. No murmurs, rubs, or gallops LUNGS: Clear to auscultation bilaterally. No wheezes. No rhonchi ABDOMEN: Soft, nontender, nondistended. Positive bowel sounds. Normal active bowel sounds NEUROLOGICAL: Alert and oriented times three. Cranial nerves II through XII grossly intact. Sensation grossly intact. +right pronator drift EXTREMITIES: 5-\5 strength bilateral upper extremities with mild right pronator drift 4\5 strength right lower extremity. 4/5 strength in left lower extremity. SKIN: +fistula ASSESSMENT:74-year-old F with past medical history of ESRD with CHF who presents status post CHF exacerbation with PNA PLAN: 1. Rehab- PT/OT strengthen, stretch, maintain ROM all 4 limbs, fall recovery, advance gait and ADL-ambulating with RW 2. Neuro: hx of stroke with mild residual right sided weakness, hx of spinal stenosis s/p laminectomy in 2018 with persistent LE weakness -c/u ASA and statin for secondary stroke prevention 3. Cardiac: hx of diastolic and systolic CHF s/p recent exacerbation, c/u fluid restrict 1200cc, daily weights, and dialysis- medicine consulted to assist in management -HTN- c/u hydralazine -HLD- c/u statin -CAD- c/u ASA and Coreg 4. resp: s/p course of antibiotics for presumed pneumonia, encourage incentive spirometry, monitor for infection -[place] 5. Renal: [facility] HD [facility] 6. Endo: hx of DM c/u levemir and ISS, adjust prn 7. Pain: gabapentin renally dosed at 100mg daily, c/u Effexor -c/u menthol salicylate rub for bilat shoulders and legs 8. DVT ppx: heparin and teds 9. GI ppx: protonix 10. Dispo: 03-12-19 to home Allergies Coded Allergies: Vzlklae-Ivg-Kbb Reductase Inhibitor (Verified Allergy, Unknown, PAIN, 07/20) PT SAYS SHE CAN TAKE PRAVASTATIN Vital Signs Vital Signs Date Time Temp Pulse Resp B/P (MAP) Pulse Ox O2 Delivery O2 Flow Rate FiO2 03/08/19 14:00 97.1 75 20 157/71 (99) 99 Room Air 03/07/19 06:00 1.0 Laboratory Data CBC/BMP Laboratory Tests 03/08/19 06:33 Labs 24H Laboratory Tests 2 03/07/19 16:47: Bedside Glucose (Misc Panel) 221H 03/07/19 20:07: Bedside Glucose (Misc Panel) 189H 03/08/19 06:23: Bedside Glucose (Misc Panel) 123H 03/08/19 06:33: Nucleated Red Blood Cells % (auto) 0.0, Anion Gap 8, Glomerular Filtration Rate 6.9L, Calcium Level 8.5L 03/08/19 11:27: Bedside Glucose (Misc Panel) 159H Current Medications Current Medications Current Medications Medications (Trade) Dose Ordered Sig/Jessica Route PRN Reason Start Time Stop Time Status Last Admin Dose Admin Acetaminophen (Tylenol Tab) 650 mg Q4HP PRN PO MILD PAIN (PS 1-4) 02/28/19 16:45 Albuterol/ Ipratropium (Duoneb (Ipr 0.5mg/Alb 2.5mg)) 3 ml RTID NEB 03/01/19 14:00 Amlodipine Besylate (Norvasc) 5 mg BID PO 03/05/19 09:00 03/06/19 12:30 DC 03/06/19 08:29 Amlodipine Besylate (Norvasc) 5 mg QHS PO 03/07/19 21:00 03/07/19 20:24 Amlodipine Besylate (Norvasc) 10 mg QHS PO 03/06/19 21:00 03/07/19 09:52 DC 03/06/19 20:37 Aspirin (Ecotrin) 81 mg QHS PO 02/28/19 21:00 03/07/19 20:24 Carvedilol (COReg) 12.5 mg BID PO 02/28/19 21:00 03/08/19 09:28 Darbepoetin Issac (Aranesp (Dialysis Use)) 100 mcg HD IV 03/01/19 12:00 Dextrose (Dextrose 50%) 25 ml ASDIRECTED PRN IV SEE LABEL COMMENTS 02/28/19 16:45 Gabapentin (Neurontin) 100 mg BID PO 02/28/19 21:00 02/28/19 20:15 DC Gabapentin (Neurontin) 100 mg QHS PO 02/28/19 21:00 03/07/19 20:24 Glucagon (Glucagon) 1 mg ASDIRECTED PRN SC SEE LABEL COMMENTS 02/28/19 16:45 Glucose (Glucose) 16 GM ASDIRECTED PRN PO SEE LABEL COMMENTS 02/28/19 16:45 Heparin Sodium (Porcine) (Heparin) 5,000 units Q12H SC 02/28/19 21:00 03/07/19 20:23 Hydralazine HCl (Apresoline) 25 mg Q8H PO 02/28/19 22:00 03/08/19 13:57 Insulin Detemir (Levemir Insulin) 5 units BID SC 02/28/19 21:00 03/08/19 09:27 Insulin Human Lispro (HumaLOG INSULIN) SEE PROTOCOL TABLE AC SC 02/28/19 17:30 02/28/19 19:48 DC Insulin Human Lispro (HumaLOG INSULIN) SEE PROTOCOL TABLE AC SC 03/01/19 07:30 03/08/19 12:02 Insulin Human Lispro (HumaLOG INSULIN) SEE PROTOCOL TABLE QHS SC 02/28/19 21:00 Magnesium Hydroxide (Milk Of Magnesia) 30 ml DAILYPRN PRN PO CONSTIPATION 02/28/19 16:45 Menthol/Methyl Salicylate (Bengay Cream) apply to bilateral shou... TID TOP 03/04/19 16:00 03/08/19 09:27 Multivitamins (Theragram-M) 1 tab QHS PO 02/28/19 21:00 03/07/19 20:25 Pantoprazole Sodium (Protonix) 40 mg DAILY PO 03/01/19 09:00 03/08/19 09:24 Pravastatin Sodium (Pravachol) 80 mg QHS PO 02/28/19 21:00 03/07/19 20:25 Senna/Docusate Sodium (Senokot S) 2 tab BID PO 02/28/19 21:00 03/08/19 09:24 Sevelamer Carbonate (Renvela) 1,600 mg BIDWM PO 03/01/19 08:00 03/08/19 09:24 Tramadol HCl (Ultram) 50 mg BID PO 02/28/19 21:00 03/06/19 17:23 DC 03/06/19 08:30 Trazodone HCl (Desyrel) 25 mg QHSP PRN PO INSOMNIA 03/06/19 17:30 03/07/19 01:37 Venlafaxine HCl (Effexor) 18.75 mg TID PO 03/10/19 14:00 Venlafaxine HCl (Effexor) 37.5 mg BID PO 03/06/19 21:00 03/08/19 15:08 DC 03/08/19 09:24 GURMEET SOLORZANO MD Mar 08, 2019 16:19
--- NOTE | 2019-03-08 18:01 | IPN ---
DATE: 03/08/2019 The patient complains of insomnia, requesting medication in the evening, currently on trazodone 25 at bedtime for insomnia as well as pain in bilateral elbows and legs on Bengay, doing well with physical therapy despite hypertension. Denies any headaches, changes in vision, chest pain, pressure or tightness, shortness of breath, or dyspnea on exertion. VITAL SIGNS: Temperature 97.9, pulse 79, respiratory rate 18, blood pressure 127/90, 100% on room air. Awake, alert and oriented, answering questions appropriately. No jugular venous distention (JVD). No thyromegaly. Moist mucous membranes. Lungs are diminished but clear to auscultation. No wheezing or rales. HEART: S1, S2. No murmurs, rubs or gallops. ABDOMEN: Soft, nontender, nondistended. EXTREMITIES: No cyanosis or clubbing. LABORATORY DATA: White count 5.5, hemoglobin 9.4, hematocrit 33, platelet count 197. Sodium 135, potassium 5.4, chloride 98, bicarbonate 29, BUN 41, creatinine 0.46, glucose 119. ASSESSMENT AND PLAN: This is a 74-year-old -[place] female with end- stage renal disease on maintenance dialysis Monday, Monday and Monday, congestive heart failure (CHF), chronic systolic and diastolic failure, hypertensive heart disease, anemia due to renal disease, admitted for shortness of breath and cough, treated for CHF exacerbation, was diuresed with resolution of fluid overload and respiratory distress. She also underwent treatment for possible pneumonia with vancomycin, Zosyn, erythromycin. No diarrhea during the hospital stay. She has been subsequently discharged to acute rehabilitation, awaiting clearance for discharge home. CURRENT ISSUES: 1. Insomnia. Currently on trazodone as needed. 2. Musculoskeletal pain, on as-needed Tylenol. 3. Deconditioning. Managed by physical medicine and rehabilitation, Dr. James. 4. Type 2 diabetes, on Levemir insulin, sliding scale, consistent-carbohydrate diet. Appears to be controlled. 5. Hypertension, on Coreg, hydralazine, Norvasc. 6. Dyslipidemia, on Pravachol. 7. Chronic neuropathy, on Neurontin. 8. Deep vein thrombosis (DVT) prophylaxis with heparin. MTDD
--- NOTE | 2019-03-08 19:29 | IPN ---
DATE: 03/08/2019 SUBJECTIVE: Bree is seen and examined this evening in the hemodialysis unit receiving her treatment. She reports rehabilitation is going well and she offers no complaints. Denies dyspnea on exertion. VITAL SIGNS: Temperature 97.1, pulse 75, respiratory rate 20, blood pressure 157/71, saturating 99% on room air. Intake yesterday was 745, dialysis today removed two liters. Weight in the bed scale today was 72.9 kg. GENERAL: The patient is seen awake, alert, oriented, interactive, conversational, receiving her maintenance treatment. LABORATORY DATA: Sodium 135, potassium 5.2, glucose 119, hemoglobin 9.4. INPATIENT MEDICATIONS: Reviewed by myself. Noted that the venlafaxine dose was adjusted and amlodipine 5 mg by mouth at bedtime was started. Remainder of medications are unchanged as compared to prior. PROBLEMS: 1. End-stage renal disease, on hemodialysis on Monday, Monday, Monday schedule. The patient is dialyzed today. There is mild hyperkalemia that will improve with dialysis. Her volume status is acceptable. We are removing two liters of fluid today. She continues on fluid restriction. 2. Chronic combined systolic and diastolic congestive heart failure. Volume status is regulated via hemodialysis. She is reasonably compensated. Removing 2 liters of fluid today with treatment and continue her oral fluid restriction. 4. Hypertension with hypertensive heart disease. She is on hydralazine and Carvedilol and I see that her amlodipine was reduced to 5 mg by mouth at bedtime. There has not been any significant hypotension of hemodialysis. 5. Anemia of end-stage renal disease. Hemoglobin is suboptimal at 9.4 and she continues on Aranesp.
[2019-03-08 20:00] VITALS: BP 132/70
[2019-03-08] MEDS: amLODIPine 5 MG TAB PO SCH (20:29)
[2019-03-08] MEDS: GABAPENTIN 100 MG CAP PO SCH (20:29)
[2019-03-08] MEDS: MULTIVITAMINS/MINERALS THERAP 1 TAB PO SCH (20:29)
[2019-03-08] MEDS: PRAVASTATIN 20 MG TAB PO SCH (20:29)
[2019-03-08] MEDS: ASPIRIN 81 MG ENTERIC TAB PO SCH (20:30)
[2019-03-08] MEDS: traZODone 25MG PER 1/2 TABLET PO PRN (20:37)
[2019-03-09] MEDS: **hydrALAZINE HCL** 25 MG TAB PO SCH ×3 (05:54→21:00)
[2019-03-09 06:00] VITALS: BP 170/76
[2019-03-09] MEDS: HumaLOG INSULIN (NovoLOG) PER UNIT SC SCH ×4 (07:24→20:48)
[2019-03-09] MEDS: IPRATROPIUM 0.5MG/ALBUTEROL 2.5MG INH SOL UD 3ML (DUONEB)(J7620) NEB SCH ×3 (07:27→20:00)
[2019-03-09] MEDS: LEVEMIR (INSULIN DETEMIR) 1 UNITS/0.01ML SC SCH ×2 (08:19→20:49)
[2019-03-09] MEDS: CARVedilol 12.5 MG TAB PO SCH ×2 (08:19→20:46)
[2019-03-09] MEDS: SENOKOT S TAB PO SCH ×2 (08:19→20:46)
[2019-03-09] MEDS: PANTOPRAZOLE 40MG TAB (PROTONIX) PO SCH (08:19)
[2019-03-09] MEDS: (RENVELA) SEVELAMER **CARBONate** 800 MG TAB PO SCH ×2 (08:19→16:53)
[2019-03-09] MEDS: HEPARIN SOD (PORCINE) 5000 UNITS/ML VIAL SC SCH ×3 (08:19→20:53)
[2019-03-09] MEDS: ANALGESIC BALM CRM 120 GM TOP SCH ×3 (08:20→20:50)
[2019-03-09 08:59] LABS: CALCIUM LEVEL 8.4 MG/DL (8.8-10.2); CREATININE FOR GFR 5.24 MG/DL (0.55-1.30); GLOMERULAR FILTRATION RATE 10.4 (>39); POTASSIUM SERUM 5.1 MEQ/L (3.5-5.1)
[2019-03-09 14:00] VITALS: BP 153/69
--- NOTE | 2019-03-09 19:10 | IPN ---
DATE: 03/09/2019 Ms. Acosta is seen this morning on her bedside. She is feeling better and reports that her dyspnea has improved. She denies any nausea or vomiting. She is getting acute rehab due to generalized weakness and deconditioning. PHYSICAL EXAMINATION: Temperature 97.8 degrees Fahrenheit, heart at 80 per minute and respiratory rate 18 per minute. Blood pressure 170/76 mmHg and oxygen saturation 96% on room air. Head is atraumatic. Neck is supple and jugular venous distension (JVD) not abnormally elevated. There is no oral thrush or ulcers. Heart sounds are regular and lungs with diminished breath sounds at bases. Abdomen: Soft and nontender. Bowel sounds are normal. Extremities: Without any cyanosis or clubbing. Left arm AV fistula is patent. Neurologically, she is awake, alert and oriented x3. Today's labs show sodium level 136, potassium 5.1, BUN 28 and creatinine 5.24. Calcium level 8.4. PROBLEMS: 1. End-stage renal disease. The patient has been dialyzed frequently and her last dialysis was yesterday. Next dialysis will be scheduled for Monday. 2. Hyperkalemia. She did have mild hyperkalemia yesterday and still her potassium is borderline today. We will recheck her electrolytes and consider to treat with SPS if needed. Will be dialyzed on Monday with low potassium bath. No urgent intervention is indicated. 3. Congestive heart failure/pleural effusions and hypervolemia. Her volume status has improved significantly with frequent dialysis. No urgent indication for dialysis today and will try to remove about 2.5 liters of fluid with next dialysis on Monday. 4. Anemia. Her anemia has been stable and does not need urgent intervention. 5. Type 2 diabetes. Her diabetes is also reasonably well-controlled and she will continue with current management.
[2019-03-09 20:05] VITALS: BP 166/76
[2019-03-09] MEDS: traZODone 25MG PER 1/2 TABLET PO PRN (20:44)
[2019-03-09] MEDS: PRAVASTATIN 20 MG TAB PO SCH (20:46)
[2019-03-09] MEDS: ASPIRIN 81 MG ENTERIC TAB PO SCH (20:46)
[2019-03-09] MEDS: MULTIVITAMINS/MINERALS THERAP 1 TAB PO SCH (20:47)
[2019-03-09] MEDS: amLODIPine 5 MG TAB PO SCH (20:47)
[2019-03-09] MEDS: GABAPENTIN 100 MG CAP PO SCH (20:48)
[2019-03-09 20:56] VITALS: BP 158/88
[2019-03-10] MEDS: **hydrALAZINE HCL** 25 MG TAB PO SCH ×3 (05:05→20:50)
[2019-03-10 06:44] LABS: HEMATOCRIT 34.5 % (36.0-47.0); MEAN CORPUSCULAR HEMOGLOBIN 26.5 pg (27.0-33.0); MEAN CORPUSCULAR VOLUME 91.5 fl (80.0-96.0); PLATELET COUNT, AUTOMATED 206 10^3/uL (150-450); RED BLOOD COUNT 3.77 10^6/uL (4.00-5.40); WHITE BLOOD COUNT 6.2 10^3/uL (4.0-10.0)
[2019-03-10 07:06] LABS: CALCIUM LEVEL 8.5 MG/DL (8.8-10.2); CREATININE FOR GFR 6.98 MG/DL (0.55-1.30); GLOMERULAR FILTRATION RATE 7.4 (>39); POTASSIUM SERUM 5.1 MEQ/L (3.5-5.1)
[2019-03-10] MEDS: IPRATROPIUM 0.5MG/ALBUTEROL 2.5MG INH SOL UD 3ML (DUONEB)(J7620) NEB SCH ×3 (07:25→20:00)
[2019-03-10] MEDS: HumaLOG INSULIN (NovoLOG) PER UNIT SC SCH ×4 (07:30→20:53)
[2019-03-10] MEDS: (RENVELA) SEVELAMER **CARBONate** 800 MG TAB PO SCH ×2 (08:50→17:23)
[2019-03-10] MEDS: PANTOPRAZOLE 40MG TAB (PROTONIX) PO SCH (08:50)
[2019-03-10] MEDS: LEVEMIR (INSULIN DETEMIR) 1 UNITS/0.01ML SC SCH ×2 (08:50→20:53)
[2019-03-10] MEDS: HEPARIN SOD (PORCINE) 5000 UNITS/ML VIAL SC SCH ×2 (08:51→20:49)
[2019-03-10] MEDS: CARVedilol 12.5 MG TAB PO SCH ×2 (08:51→20:52)
[2019-03-10] MEDS: ANALGESIC BALM CRM 120 GM TOP SCH ×3 (08:52→20:53)
[2019-03-10] MEDS: SENOKOT S TAB PO SCH ×2 (08:52→20:51)
[2019-03-10 14:00] VITALS: BP 155/82
[2019-03-10] MEDS: VENLAFAXINE 37.5 MG TAB PO SCH ×3 (14:32→20:51)
[2019-03-10 20:15] VITALS: BP 170/87
[2019-03-10] MEDS: MULTIVITAMINS/MINERALS THERAP 1 TAB PO SCH (20:49)
[2019-03-10] MEDS: ASPIRIN 81 MG ENTERIC TAB PO SCH (20:50)
[2019-03-10] MEDS: amLODIPine 5 MG TAB PO SCH (20:51)
[2019-03-10] MEDS: GABAPENTIN 100 MG CAP PO SCH (20:52)
[2019-03-10] MEDS: PRAVASTATIN 20 MG TAB PO SCH (20:52)
[2019-03-10] MEDS: traZODone 25MG PER 1/2 TABLET PO PRN (20:52)
[2019-03-11] MEDS: **hydrALAZINE HCL** 25 MG TAB PO SCH ×3 (05:34→21:23)
[2019-03-11 05:36] VITALS: BP 150/50
[2019-03-11] MEDS: HumaLOG INSULIN (NovoLOG) PER UNIT SC SCH ×4 (07:30→21:00)
[2019-03-11] MEDS: SENOKOT S TAB PO SCH ×2 (07:48→21:00)
[2019-03-11] MEDS: (RENVELA) SEVELAMER **CARBONate** 800 MG TAB PO SCH ×2 (07:48→17:24)
[2019-03-11] MEDS: VENLAFAXINE 37.5 MG TAB PO SCH ×3 (07:49→21:22)
[2019-03-11] MEDS: CARVedilol 12.5 MG TAB PO SCH ×2 (07:49→21:23)
[2019-03-11] MEDS: PANTOPRAZOLE 40MG TAB (PROTONIX) PO SCH (07:49)
[2019-03-11] MEDS: HEPARIN SOD (PORCINE) 5000 UNITS/ML VIAL SC SCH ×2 (07:50→21:00)
[2019-03-11] MEDS: LEVEMIR (INSULIN DETEMIR) 1 UNITS/0.01ML SC SCH ×2 (07:51→21:24)
[2019-03-11] MEDS: ANALGESIC BALM CRM 120 GM TOP SCH ×3 (07:52→21:28)
[2019-03-11] MEDS: IPRATROPIUM 0.5MG/ALBUTEROL 2.5MG INH SOL UD 3ML (DUONEB)(J7620) NEB SCH ×3 (08:00→20:00)
[2019-03-11] MEDS ORDERED: CARV12.5 PO (10:04)
[2019-03-11] MEDS ORDERED: AMLO5TAB6 PO (10:04)
[2019-03-11] MEDS ORDERED: GABA-1171 PO (10:04)
[2019-03-11] MEDS ORDERED: INSUDET SC (10:04)
[2019-03-11] MEDS ORDERED: ASPI-164 PO (10:04)
[2019-03-11] MEDS ORDERED: HYDR-3910 PO (10:04)
[2019-03-11] MEDS ORDERED: PRAV80TA2 PO (10:04)
[2019-03-11] MEDS ORDERED: VENL37TA PO (10:04)
[2019-03-11] MEDS ORDERED: HEPARIN 1,000 UNITS/ML 10ML VIAL (FOR RADIOLOGY& DIALYSIS ONLY) IV ONE ×2 (10:30)
[2019-03-11] MEDS ORDERED: LIDOCAINE 1% SDV 5 ML VIAL SQ ONE (10:30)
--- NOTE | 2019-03-11 11:34 | IPNPDOC ---
PM&R Progress Note DATE OF SERVICE: Mar 11, 2019 Backup Administrator Progress Note Subjective: Patient reporting she is feeling better and has been doing well with her room privileges. REVIEW OF SYSTEMS: The following is a completed review of systems and has been reviewed. Review of systems otherwise unremarkable. PAIN: Patient self reports no pain EYES: No recent vision changes EARS, NOSE, & THROAT: No throat pain, or dysphagia, or rhinorrhea CARDIOVASCULAR: Denies chest pain or palpitations PULMONARY: Denies shortness of breath GASTROINTESTINAL: +constipation (improving) GENITOURINARY:denies dysuria MUSCULOSKELETAL: bilat LE weakness NEUROLOGICAL: +bilat LE tremor, residual right sided weakness HEMATOLOGICAL: anemia SKIN: denies rash PSYCHIATRIC: Unremarkable All other review of systems found to be negative. PHYSICAL EXAMINATION: VITAL SIGNS: Please see below. GENERAL: Pleasant and cooperative. No acute distress. HEENT: PERRL. Extraocular movements intact. Clear conjunctiva CARDIOVASCULAR: Regular rate and rhythm. No murmurs, rubs, or gallops LUNGS: Clear to auscultation bilaterally. No wheezes. No rhonchi ABDOMEN: Soft, nontender, nondistended. Positive bowel sounds. Normal active bowel sounds NEUROLOGICAL: Alert and oriented times three. Cranial nerves II through XII grossly intact. Sensation grossly intact. +right pronator drift EXTREMITIES: 5-\5 strength bilateral upper extremities with mild right pronator drift 4\5 strength right lower extremity. 4/5 strength in left lower extremity. SKIN: +fistula ASSESSMENT:74-year-old F with past medical history of ESRD with CHF who presents status post CHF exacerbation with PNA PLAN: 1. Rehab- PT/OT strengthen, stretch, maintain ROM all 4 limbs, fall recovery, advance gait and ADL-ambulating with RW 2. Neuro: hx of stroke with mild residual right sided weakness, hx of spinal stenosis s/p laminectomy in 2018 with persistent LE weakness -c/u ASA and statin for secondary stroke prevention 3. Cardiac: hx of diastolic and systolic CHF s/p recent exacerbation, c/u fluid restrict 1200cc, daily weights, and dialysis- medicine consulted to assist in management -HTN- c/u hydralazine -HLD- c/u statin -CAD- c/u ASA and Coreg 4. resp: s/p course of antibiotics for presumed pneumonia, encourage incentive spirometry, monitor for infection -[place] 5. Renal: [facility] HD , [facility] 6. Endo: hx of DM c/u levemir and ISS, adjust prn 7. Pain: gabapentin renally dosed at 100mg daily, c/u Effexor -c/u menthol salicylate rub for bilat shoulders and legs 8. DVT ppx: heparin and teds 9. GI ppx: protonix 10. Dispo: 03-12-19 to home, progressing towards goals Allergies Coded Allergies: Ggpmjvn-Cva-Qat Reductase Inhibitor (Verified Allergy, Unknown, PAIN, 07/20/18) PT SAYS SHE CAN TAKE PRAVASTATIN Vital Signs Vital Signs Date Time Temp Pulse Resp B/P (MAP) Pulse Ox O2 Delivery O2 Flow Rate FiO2 03/11/19 05:36 98.2 78 16 150/50 (83) 98 Room Air 03/07/19 06:00 1.0 Laboratory Data Labs 24H Laboratory Tests 2 03/10/19 11:43: Bedside Glucose (Misc Panel) 117H 03/10/19 16:45: Bedside Glucose (Misc Panel) 140H 03/10/19 20:12: Bedside Glucose (Misc Panel) 163H 03/11/19 05:24: Bedside Glucose (Misc Panel) 98 Current Medications Current Medications Current Medications Medications (Trade) Dose Ordered Sig/Jessica Route PRN Reason Start Time Stop Time Status Last Admin Dose Admin Acetaminophen (Tylenol Tab) 650 mg Q4HP PRN PO MILD PAIN (PS 1-4) 02/28/19 16:45 Albuterol/ Ipratropium (Duoneb (Ipr 0.5mg/Alb 2.5mg)) 3 ml RTID NEB 03/01/19 14:00 Amlodipine Besylate (Norvasc) 5 mg BID PO 03/05/19 09:00 03/06/19 12:30 DC 03/06/19 08:29 Amlodipine Besylate (Norvasc) 5 mg QHS PO 03/07/19 21:00 03/10/19 20:51 Amlodipine Besylate (Norvasc) 10 mg QHS PO 03/06/19 21:00 03/07/19 09:52 DC 03/06/19 20:37 Aspirin (Ecotrin) 81 mg QHS PO 02/28/19 21:00 03/10/19 20:50 Carvedilol (COReg) 12.5 mg BID PO 02/28/19 21:00 03/11/19 07:49 Darbepoetin Issac (Aranesp (Dialysis Use)) 100 mcg HD IV 03/01/19 12:00 Dextrose (Dextrose 50%) 25 ml ASDIRECTED PRN IV SEE LABEL COMMENTS 02/28/19 16:45 Gabapentin (Neurontin) 100 mg BID PO 02/28/19 21:00 02/28/19 20:15 DC Gabapentin (Neurontin) 100 mg QHS PO 02/28/19 21:00 03/10/19 20:52 Glucagon (Glucagon) 1 mg ASDIRECTED PRN SC SEE LABEL COMMENTS 02/28/19 16:45 Glucose (Glucose) 16 GM ASDIRECTED PRN PO SEE LABEL COMMENTS 02/28/19 16:45 Heparin Sodium (Porcine) (Heparin) 5,000 units Q12H SC 02/28/19 21:00 03/11/19 07:50 Hydralazine HCl (Apresoline) 25 mg Q8H PO 02/28/19 22:00 03/11/19 05:34 Insulin Detemir (Levemir Insulin) 5 units BID SC 02/28/19 21:00 03/10/19 20:53 Insulin Human Lispro (HumaLOG INSULIN) SEE PROTOCOL TABLE AC SC 02/28/19 17:30 02/28/19 19:48 DC Insulin Human Lispro (HumaLOG INSULIN) SEE PROTOCOL TABLE AC SC 03/01/19 07:30 03/10/19 17:22 Insulin Human Lispro (HumaLOG INSULIN) SEE PROTOCOL TABLE QHS SC 02/28/19 21:00 Magnesium Hydroxide (Milk Of Magnesia) 30 ml DAILYPRN PRN PO CONSTIPATION 02/28/19 16:45 Menthol/Methyl Salicylate (Bengay Cream) apply to bilateral shou... TID TOP 03/04/19 16:00 03/11/19 07:52 Multivitamins (Theragram-M) 1 tab QHS PO 02/28/19 21:00 03/10/19 20:49 Pantoprazole Sodium (Protonix) 40 mg DAILY PO 03/01/19 09:00 03/11/19 07:49 Pravastatin Sodium (Pravachol) 80 mg QHS PO 02/28/19 21:00 03/10/19 20:52 Senna/Docusate Sodium (Senokot S) 2 tab BID PO 02/28/19 21:00 03/11/19 07:48 Sevelamer Carbonate (Renvela) 1,600 mg BIDWM PO 03/01/19 08:00 03/11/19 07:48 Tramadol HCl (Ultram) 50 mg BID PO 02/28/19 21:00 03/06/19 17:23 DC 03/06/19 08:30 Trazodone HCl (Desyrel) 25 mg QHSP PRN PO INSOMNIA 03/06/19 17:30 03/10/19 20:52 Venlafaxine HCl (Effexor) 18.75 mg TID PO 03/10/19 14:00 03/11/19 07:49 Venlafaxine HCl (Effexor) 37.5 mg BID PO 03/06/19 21:00 03/08/19 15:08 DC 03/08/19 09:24 GURMEET SOLORZANO MD Mar 11, 2019 11:34
[2019-03-11 17:16] VITALS: BP 174/81
--- NOTE | 2019-03-11 19:48 | IPN ---
DATE: 03/11/2019 Mrs. Acosta is seen this morning on her bedside. She reports not feeling well today and woke up about 03:00 a.m. with abdominal pain and nausea. She denies any vomiting or diarrhea. She has no fever or chills. She denies any dyspnea or chest pain. PHYSICAL EXAMINATION: Temperature 98.2 degrees Fahrenheit, heart rate 78 per minute and respiratory rate 16 per minute. Blood pressure 150/50 mmHg and oxygen saturation 98% on room air. Head is atraumatic. Neck is supple and jugular venous distention (JVD) is not abnormally elevated. Heart sounds are regular. Lungs sound clear to auscultation. Abdomen is soft and nontender and bowel sounds are normal. No palpable organomegaly. Extremities have no cyanosis or clubbing. Left arm arteriovenous (AV) fistula is patent. Neurologically, she is awake, alert and without a focal deficit. LABORATORY DATA: Her laboratories from 03/10/2019 are reviewed. WBC count was 6.2, hemoglobin 10.0, hematocrit 34.5. Sodium was 138, potassium 5.1, BUN 36 and creatinine 6.98. This morning, her blood sugar was 98. PROBLEMS: 1. End-stage renal disease. The patient is regularly dialyzed on Monday, Monday and Monday schedule. She is scheduled for dialysis this afternoon. 2. Congestive heart failure. Volume status has been reasonably well-compensated. We will try to remove about three liters of fluid with dialysis today as tolerated. 3. Hyperkalemia. Her potassium level was borderline yesterday and she will be dialyzed with 2.0 mEq potassium bath. 4. Abdominal pain and nausea. Etiology remains uncertain. Her abdomen feels benign on clinical examination. I feel that she should be treated symptomatically for nausea and see how she does. 5. Hypertension. Blood pressure seems very well-controlled on current antihypertensive medications and no changes are being made.
[2019-03-11 20:00] VITALS: BP 174/87
[2019-03-11] MEDS: PRAVASTATIN 20 MG TAB PO SCH (21:21)
[2019-03-11] MEDS: traZODone 25MG PER 1/2 TABLET PO PRN (21:21)
[2019-03-11] MEDS: MULTIVITAMINS/MINERALS THERAP 1 TAB PO SCH (21:23)
[2019-03-11] MEDS: GABAPENTIN 100 MG CAP PO SCH (21:23)
[2019-03-11] MEDS: ASPIRIN 81 MG ENTERIC TAB PO SCH (21:23)
[2019-03-11] MEDS: amLODIPine 5 MG TAB PO SCH (21:23)
[2019-03-12 06:00] VITALS: BP 144/68
[2019-03-12] MEDS: **hydrALAZINE HCL** 25 MG TAB PO SCH (06:06)
[2019-03-12] MEDS: HumaLOG INSULIN (NovoLOG) PER UNIT SC SCH (07:30)
[2019-03-12] MEDS: IPRATROPIUM 0.5MG/ALBUTEROL 2.5MG INH SOL UD 3ML (DUONEB)(J7620) NEB SCH (08:00)
[2019-03-12] MEDS: HEPARIN SOD (PORCINE) 5000 UNITS/ML VIAL SC SCH (08:21)
[2019-03-12] MEDS: SENOKOT S TAB PO SCH (08:21)
[2019-03-12 08:22] VITALS: BP 144/88
[2019-03-12] MEDS: CARVedilol 12.5 MG TAB PO SCH (08:22)
[2019-03-12] MEDS: (RENVELA) SEVELAMER **CARBONate** 800 MG TAB PO SCH (08:22)
[2019-03-12] MEDS: PANTOPRAZOLE 40MG TAB (PROTONIX) PO SCH (08:22)
[2019-03-12] MEDS: VENLAFAXINE 37.5 MG TAB PO SCH (08:23)
[2019-03-12] MEDS: LEVEMIR (INSULIN DETEMIR) 1 UNITS/0.01ML SC SCH (08:23)
[2019-03-12] MEDS: ANALGESIC BALM CRM 120 GM TOP SCH (08:27)
--- NOTE | 2019-03-12 15:29 | PMRDS ---
DATE OF ADMISSION: 02/28/2019 DATE OF DISCHARGE: 03/12/2019 CHIEF COMPLAINT/DISCHARGE DIAGNOSIS: Congestive heart failure (CHF) with pneumonia in setting of end-stage renal disease and spinal stenosis. HISTORY OF PRESENT ILLNESS: 74-year-old female with past medical history of end-stage renal disease, hypertension, hyperlipidemia, diabetes, CAD status post coronary artery bypass graft (CABG) with systolic-diastolic CHF, history of CVA with right-sided weakness, spinal stenosis status post lumbar laminectomy, anemia of chronic disease who presented to the emergency department (ED) on 02/23/2019 complaining of shortness of breath, cough and chest pain. CT chest showed "small to moderate pleural effusions left greater than right and scattered infiltrates along with moderate left lower lobe atelectasis." She was started on empiric antibiotics for concern for pneumonia and evaluated by renal for her fluid overloaded status. She was placed on a 1200 mL fluid restriction and continued on dialysis. She was evaluated by therapy and required assistance in mobility and activities of daily living (ADL) and deemed medically appropriate for discharge to acute rehabilitation unit (ARU) on 02/28/2019. PAST MEDICAL HISTORY: As per history of present illness (HPI). HOSPITAL COURSE: The patient was admitted and enrolled in a comprehensive physical therapy (PT)/occupational therapy (OT) program. She received 24-hour nursing supervision and weekly team meetings were held to discuss her progress. During her hospital course, the patient's tramadol was tapered and eventually discontinued and her gabapentin dosing was changed to 100 mg once a day. She was started on Effexor with adequate pain relief. She finished a course of antibiotics for presumed pneumonia and had no respiratory concerns during hospital course. She participated well in therapy, made progressive gains and was deemed medically and functionally stable to return home. DISCHARGE MEDICATIONS: As per instructions. FUNCTIONAL HISTORY: On discharge, the patient was modified independent for functional transfers and ambulation able to ambulate 233 feet with a rolling walker, and in occupational therapy she was modified independent for toileting, grooming, eating and dressing. Thank you for this referral.
== END 2019-03-12 11:55 | disposition home health service (06) | DRG 291 ==
LOC: M PM&R 18:20
PROVIDERS: ADMIT Physical Medicine & Rehabilitation; ATTEND Physical Medicine & Rehabilitation
PROC: 5A1D70Z Performance of Urinary Filtration, Intermittent, Less than 6 Hours Per Day (ICD-10-PCS; principal; 2019-03-01)
DX: I13.2 Hypertensive heart and chronic kidney disease with heart failure and with stage 5 chronic kidney disease, or end stage renal disease (principal); N18.6 End stage renal disease; I50.42 Chronic combined systolic (congestive) and diastolic (congestive) heart failure; I69.351 Hemiplegia and hemiparesis following cerebral infarction affecting right dominant side; E78.5 Hyperlipidemia, unspecified; E11.22 Type 2 diabetes mellitus with diabetic chronic kidney disease; I25.10 Atherosclerotic heart disease of native coronary artery without angina pectoris; G89.29 Other chronic pain; M48.061 Spinal stenosis, lumbar region without neurogenic claudication; R26.89 Other abnormalities of gait and mobility; E11.40 Type 2 diabetes mellitus with diabetic neuropathy, unspecified; G47.00 Insomnia, unspecified; D63.1 Anemia in chronic kidney disease; E87.5 Hyperkalemia; K59.00 Constipation, unspecified; R25.1 Tremor, unspecified; Z99.2 Dependence on renal dialysis; Z95.1 Presence of aortocoronary bypass graft; Z87.891 Personal history of nicotine dependence; Z79.82 Long term (current) use of aspirin; Z79.891 Long term (current) use of opiate analgesic; Z79.899 Other long term (current) drug therapy; Z88.8 Allergy status to other drugs, medicaments and biological substances

== ENCOUNTER → 2019-05-21 | Outpatient (CLI) | payer MEDICARE, BC ==
[~2019-05-21] MED LIST changes: -AMLO-151 PO; +AMLO-180 PO; +ISOVUE-300 61% 50ML VIAL (Q9967) As Ordered ONE; +LIDOCAINE 1% MDV 20ML VIAL As Ordered ONE; +MIDAZOLAM INJ 2 MG/2 ML VIAL (J2250) As Ordered ONE; +VENL37TA PO; +fentaNYL 100 MCG/2 ML INJECTION (J3010) As Ordered ONE
--- NOTE | 2019-05-21 11:48 | ROOPDOC ---
[facility] Report Of Operation Report of Operation DATE OF PROCEDURE: 05/21/19 PREPROCEDURE DIAGNOSES: End-stage renal disease poorly functioning left upper extremity AV access POSTPROCEDURE DIAGNOSES: Same PROCEDURE: 1. Ultrasound-guided access left upper extremity brachial basilic AV access status post transposition 2. Left upper extremity fistulogram and central venogram 3. Angioplasty subclavian vein and innominate stent with 9 x 80 Flintstone balloon 4. Angioplasty proximal basilic vein and axillary vein with 9 x 80 Flintstone balloon 5. Completion venogram SURGEON: Sakina Capone MD ANESTHESIA: Local anesthesia with 2 mL lidocaine. Moderate intravenous conscious sedation was administered by Dr. Capone. The patient was independently monitored by registered nurse assigned in the department of radiology using automated blood pressure, EKG, and pulse oximetry. The detailed sedation record is permanently stored in the hospital information system. The following is a brief sedation record: Start time 11:15, stop time 11:43, Versed 0.5 mg IV, fentanyl 25 g IV. CONTRAST: 25 mL Isovue-300 INDICATION FOR PROCEDURE: This is a very pleasant 74-year-old patient with poorly functioning left upper extremity brachial basilic AV fistula. At her last fistulogram in January, she had a bit of stenosis at the proximal aspect of the basilic vein transposition, as well as stenosis in the subclavian and innominate stent. Risks benefits and alternatives to a fistulogram potential intervention were explained to the patient she is agreeable to proceed. Informed consent was obtained. INTERPRETATION: 1. The patient has widely patent inflow through the fistula and the vein is somewhat irregular through the upper arm but widely patent. There is an 85% stenosis where the transposed basilic vein returns to its normal anatomic position and leads into the axillary vein, and also a 60% stenosis in the subclavian vein at the thoracic outlet, and a 40% stenosis within the innominate stent. 2. After angioplasty of the basilic vein in the distal axillary vein, there is widely patent flow with less than 30% residual stenosis. This stenosis appears to be more anatomical then actual vein stenosis. No extravasation postangioplasty. 3. After angioplasty of the subclavian vein and innominate stent, there is widely patent inflow through the central system with less than 20% residual stenosis. No extravasation noted post angioplasty. REPORT OF OPERATION: The patient was brought to the angiographic suite in stable condition and her left upper extremity was prepped and draped in sterile fashion. A timeout was performed. Local anesthesia was administered to the skin and subcutaneous tissue over the basilic vein near the AV anastomosis. Ultrasound was used to examine the inflow to the fistula which is widely patent. We accessed the basilic vein near the AV anastomosis under ultrasound guidance and a wire was passed through this access under fluoroscopic guidance. A 4 Divehi sheath was placed over the wire and flushed with saline. A fistulogram and central venogram were performed. Please see interpretation above. A Glidewire was advanced under fluoroscopic guidance into the central system. A 9 x 80 Flintstone balloon was used to angioplasty across the proximal basilic vein into the axillary vein for three-minute inflations. Following this, there is marked improvement in flow. We then used the same balloon and advanced it across the subclavian vein for three-minute inflations, and across the innominate stent for three-minute inflations. Following this there is widely patent inflow through the proximal vessels and examined significant improvement in thrill in the fistula. The pulsatility had resolved. We still noted a little bit of stenosis where the basilic vein rejoined its normal anatomic route status post transposition, and a second angioplasty for 3 minutes with a 9 x 80 balloon was performed. Following this, there was less than 30% residual stenosis and no extravasation. There was an excellent thrill and the patient had an easily palpable radial pulse and good perfusion to the hand. Additional local anesthesia was administered around sheath and a Prolene suture was placed in a [id number] pattern in the sheath was removed. Pressure was held for 5 minutes for good hemostasis and sterile dressings were applied. The patient was taken to recovery in stable condition. She tolerated the procedure and the sedation well. ESTIMATED BLOOD LOSS: Approximately 2 mL. COMPLICATIONS: None. PLAN: We will see the patient back on an as-needed basis for additional intervention if she develops new symptoms of proximal stenosis, with increased pulsatility and poor flows. It is okay to use the fistula for dialysis, and it is okay to resume home medications and diet. We appreciate the opportunity to participate in the care of this patient. SAKINA CAPONE MD May 21, 2019 11:48
[2019-05-21 12:30] VITALS: BP 188/94
== END ==
LOC: M IRPRO 09:43
PROVIDERS: ATTEND Surgery Vascular Surgery
DX: T82.590A Other mechanical complication of surgically created arteriovenous fistula, initial encounter (principal); N18.6 End stage renal disease; E78.00 Pure hypercholesterolemia, unspecified; E11.22 Type 2 diabetes mellitus with diabetic chronic kidney disease; I12.0 Hypertensive chronic kidney disease with stage 5 chronic kidney disease or end stage renal disease; E03.9 Hypothyroidism, unspecified; X58.XXXA Exposure to other specified factors, initial encounter; Z79.82 Long term (current) use of aspirin; Z79.899 Other long term (current) drug therapy; Z88.8 Allergy status to other drugs, medicaments and biological substances; Z99.2 Dependence on renal dialysis
CPT/HCPCS: 36902; 36907; 99152; 99153; C1725; C1769; C1894; J1644; J2250; J3010; Q9967

== ENCOUNTER → 2019-05-28 | Outpatient (CLI) | payer MEDICARE, BC ==
[~2019-05-28] MED LIST changes: -ISOVUE-300 61% 50ML VIAL (Q9967) As Ordered ONE; +LABE100T36 PO; +LANTINJ4 SQ; -LIDOCAINE 1% MDV 20ML VIAL As Ordered ONE; -MIDAZOLAM INJ 2 MG/2 ML VIAL (J2250) As Ordered ONE; +PEG1POW PO; +VITA-243 PO; -VITA500T PO; -fentaNYL 100 MCG/2 ML INJECTION (J3010) As Ordered ONE
--- NOTE | 2019-05-28 14:24 | REP ---
CHEST, TWO VIEWS: Two views of the chest are performed and compared to multiple prior exams dating back to 07/03/2018. There is cardiomegaly again noted. Diffuse increased interstitial markings and pulmonary venous hypertension are unchanged. Bibasilar alveolar opacities are unchanged. Mediastinal silhouette is unchanged. Sternal views and mediastinal clips are again noted. There is a stent overlying the superior mediastinum unchanged. IMPRESSION: Cardiomegaly and chronic interstitial and alveolar opacities unchanged dating back to 07/03/2018. Electronically Signed by Bebeto Tripp MD 05/28/2019 06:20 P
== END ==
LOC: M LRY 13:21
PROVIDERS: ATTEND Nurse Practitioner Family
DX: R09.89 Other specified symptoms and signs involving the circulatory and respiratory systems (principal); R73.01 Impaired fasting glucose; E78.00 Pure hypercholesterolemia, unspecified
CPT/HCPCS: 71046; 80053; 80061; 83036; 85025; G0463

== ENCOUNTER → 2019-05-28 | Outpatient (REF) | payer MEDICARE, BC ==
[2019-05-28 16:21] LABS: BASO % 0.6 % (0.0-1.0); EOS # 0.1 10^3/uL (0.0-0.5); EOS % 3.4 % (0.0-3.0); HEMATOCRIT 37.9 % (36.0-47.0); HEMOGLOBIN 10.9 g/dl (12.0-15.5); LYMPH # 0.9 10^3/uL (1.5-5.0); LYMPH % 26.6 % (24.0-44.0); MEAN CORPUSCULAR HEMOGLOBIN 25.8 pg (27.0-33.0); MEAN CORPUSCULAR HGB CONC 28.8 g/dl (32.0-36.5); MEAN CORPUSCULAR VOLUME 89.8 fl (80.0-96.0); MONO # 0.4 10^3/uL (0.0-0.8); MONO % 12.6 % (0.0-5.0); NEUTROPHILS % 56.5 % (36.0-66.0); PLATELET COUNT, AUTOMATED 138 10^3/uL (150-450); RED BLOOD COUNT 4.22 10^6/uL (4.00-5.40); WHITE BLOOD COUNT 3.5 10^3/uL (4.0-10.0)
[2019-05-28 16:25] LABS: ALBUMIN 3.6 GM/DL (3.2-5.2); BILIRUBIN,DIRECT 0.1 MG/DL (0.0-0.2); BILIRUBIN,TOTAL 0.5 MG/DL (0.2-1.0); TOTAL PROTEIN 7.4 GM/DL (6.4-8.2)
[2019-05-28 16:26] LABS: ALBUMIN 3.6 GM/DL (3.2-5.2); BILIRUBIN,TOTAL 0.5 MG/DL (0.2-1.0); CALCIUM LEVEL 8.9 MG/DL (8.8-10.2); CHOLESTEROL RISK RATIO 5.675 (<5); CREATININE FOR GFR 7.76 MG/DL (0.55-1.30); GLOMERULAR FILTRATION RATE 6.6 (>39); POTASSIUM SERUM 3.7 MEQ/L (3.5-5.1); TOTAL PROTEIN 7.2 GM/DL (6.4-8.2)
[2019-05-28 17:43] LABS: HEMOGLOBIN A1c 8.9 %
== END ==
LOC: M SFHCLERA 13:17
PROVIDERS: ATTEND Nurse Practitioner Family
DX: E11.9 Type 2 diabetes mellitus without complications (principal); R09.89 Other specified symptoms and signs involving the circulatory and respiratory systems; E78.5 Hyperlipidemia, unspecified
CPT/HCPCS: 80053; 80061; 80076; 83036; 85025; G0463

== ENCOUNTER 2019-06-29 11:35 | Emergency (ER) | payer MEDICARE, BC ==
[~2019-06-29] VITALS: Ht 165.1 cm; Wt 69.0 kg
[~2019-06-29 11:35] MED LIST changes: -LABE100T36 PO; -LANTINJ4 SQ; -PEG1POW PO
[2019-06-29 12:25] LABS: BASO % 0.9 % (0.0-1.0); EOS # 0.1 10^3/uL (0.0-0.5); HEMATOCRIT 42.8 % (36.0-47.0); HEMOGLOBIN 12.3 g/dl (12.0-15.5); LYMPH # 0.7 10^3/uL (1.5-5.0); LYMPH % 16.3 % (24.0-44.0); MEAN CORPUSCULAR HEMOGLOBIN 25.9 pg (27.0-33.0); MEAN CORPUSCULAR HGB CONC 28.7 g/dl (32.0-36.5); MEAN CORPUSCULAR VOLUME 90.1 fl (80.0-96.0); MONO # 0.4 10^3/uL (0.0-0.8); MONO % 9.8 % (0.0-5.0); NEUTROPHILS # 3.1 10^3/uL (1.5-8.5); NEUTROPHILS % 70.3 % (36.0-66.0); PLATELET COUNT, AUTOMATED 122 10^3/uL (150-450); RED BLOOD COUNT 4.75 10^6/uL (4.00-5.40); WHITE BLOOD COUNT 4.5 10^3/uL (4.0-10.0)
[2019-06-29 12:35] LABS: INR 1.04; PARTIAL THROMBOPLASTIN TIME 28.6 SECONDS (25.0-38.4); PROTHROMBIN TIME 13.3 SECONDS (11.8-14.0)
--- NOTE | 2019-06-29 12:46 | REP ---
Clinical: Dizziness. Comparison: 07/20/2018 . Findings: Age-related atrophy and microvascular ischemic changes are appreciated. The ventricles and sulci are symmetric. Tripp-white differentiation is maintained. There is no evidence for acute intracranial hemorrhage, mass/mass effect, pathology or infarction. No extra-axial fluid collection. Calvarium is intact. Paranasal sinuses and mastoid air cells are clear. Impression: Age related atrophy and microvascular ischemic changes. No acute intracranial hemorrhage, infarction, or mass/mass effect. Electronically Signed by Joni Dumont MD 06/29/2019 12:36 P
--- NOTE | 2019-06-29 12:52 | REP ---
Clinical: Right lower quadrant pain. Technique: Axial noncontrast images from the lung bases to the pubic symphysis with coronal and sagittal re-formations. Findings: Lung bases demonstrate chronic emphysematous disease with scattered fibrosis and scarring as well as bibasilar atelectasis (left greater than right) and moderate left pleural effusion. Cardiomegaly. Liver, spleen, pancreas, gallbladder, bilateral adrenal glands are normal. The kidneys demonstrate chronic atrophic change without acute perinephric stranding, hydronephrosis or nephroureterolithiasis. The enteric system demonstrates diffuse diverticulosis without acute diverticulitis and no evidence for bowel obstruction or obvious acute inflammatory process. Normal terminal ileum and appendix are identified in the right lower quadrant. Pelvis demonstrates normal bladder and evidence for prior hysterectomy. No pelvic fluid or ascites. No free air. No adenopathy. Atherosclerotic changes to the aorta without aneurysm. Musculoskeletal structures demonstrate osteopenia and degenerative changes. Impression: 1. Bibasilar atelectasis (left greater than right) and moderate left pleural effusion. 2. No obvious acute abdominopelvic pathology appreciated. 3. Diverticulosis. 4. Chronic changes to the bilateral kidneys without perinephric stranding nephrolithiasis or hydronephrosis. Electronically Signed by Joni Dumont MD 06/29/2019 12:44 P
--- NOTE | 2019-06-29 12:53 | REP ---
Clinical: Chest pain. Comparison: 05/28/2019. Findings: Mediastinum and cardiac silhouette are stable with evidence of prior sternotomy, CABG, and vascular stent noted. Diffuse reticulonodular interstitial infiltrates along with bibasilar opacities/atelectasis and pleural effusion(s) are suggested. Underlying chronic interstitial changes including emphysematous disease and scattered calcified granuloma similar to prior examination. Impression: Cardiomegaly and chronic interstitial changes. Superimposed bibasilar atelectasis and pleural effusion. Electronically Signed by Joni Dumont MD 06/29/2019 12:46 P
[2019-06-29 12:54] LABS: ALBUMIN 3.4 GM/DL (3.2-5.2); ALT/SGPT 15 U/L (12-78); BILIRUBIN,DIRECT < 0.1 MG/DL (0.0-0.2); BILIRUBIN,TOTAL 0.4 MG/DL (0.2-1.0); CK-MB VALUE MASS 2.2 NG/ML (<3.6); CPK CREATINE PHOSPHOKINASE 104 U/L (26-192); LIPASE 286 U/L (73-393); MB/CK RELATIVE INDEX 2.12 (< OR =4); NT-PRO BNP 16808 PG/ML (<125); TOTAL PROTEIN 7.2 GM/DL (6.4-8.2); TROPONIN I 0.02 NG/ML (< 0.10)
[2019-06-29] MEDS ORDERED: LANTINJ4 SQ (13:15)
[2019-06-29] MEDS ORDERED: LABETALOL 100MG/20ML VIAL IV STA ×2 (14:13→15:24)
[2019-06-29] MEDS ORDERED: ACETAMINOPHEN TAB 650MG DOSE (2X325MG) PO ONE (14:15)
[2019-06-29 15:27] VITALS: BP 190/90
[2019-06-29] MEDS ORDERED: LABE100T36 PO (16:39)
[2019-06-29 16:58] VITALS: BP 169/70
--- NOTE | 2019-06-29 19:32 | ECGEPIP ---
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
[2019-06-29] MEDS ORDERED: TRAM50TA2 PO (22:57)
[2019-06-30] MEDS ORDERED: PRAV80TA2 PO (01:22)
[2019-06-30] MEDS ORDERED: LIDO2.5C15 TOP (01:22)
[2019-06-30] MEDS ORDERED: HYDR-3910 PO (01:22)
[2019-06-30] MEDS ORDERED: AMLO5TAB6 PO (01:22)
[2019-06-30] MEDS ORDERED: GABA-1171 PO (01:22)
[2019-06-30] MEDS ORDERED: ASPI81CH33 PO (01:22)
[2019-06-30] MEDS ORDERED: LABE100T36 PO (01:22)
== END 2019-06-29 16:59 | disposition home or self-care (01) ==
LOC: M ED 11:35
DX: R07.9 Chest pain, unspecified (principal); R94.31 Abnormal electrocardiogram [ECG] [EKG]; I51.7 Cardiomegaly; J98.11 Atelectasis; R10.9 Unspecified abdominal pain; J90 Pleural effusion, not elsewhere classified; R51 Headache; K57.30 Diverticulosis of large intestine without perforation or abscess without bleeding; E11.9 Type 2 diabetes mellitus without complications; K21.9 Gastro-esophageal reflux disease without esophagitis; N18.6 End stage renal disease; Z79.899 Other long term (current) drug therapy

== ENCOUNTER 2019-06-29 22:40 | Inpatient (IN) | payer MEDICARE, BC ==
[~2019-06-29] VITALS: Ht 165.1 cm; Wt 71.8 kg
[2019-06-29] MEDS: HumaLOG INSULIN (NovoLOG) PER UNIT SC SCH (03:16)
[~2019-06-29 22:40] MED LIST changes: +LABE100T36 PO; +LANTINJ4 SQ; +amLODIPine 10 MG TAB PO SCH; +amLODIPine 5 MG TAB PO SCH
[2019-06-29] MEDS ORDERED: TRAM50TA2 PO (22:57)
[2019-06-29] MEDS ORDERED: LABETALOL 100 MG TAB PO ONE (23:30)
[2019-06-30] VITALS (8 sets, daily range): BP systolic 160–180; BP diastolic 66–94
[2019-06-30] MEDS ORDERED: LABETALOL 100MG/20ML VIAL IV STA (00:58)
--- NOTE | 2019-06-30 01:09 | IPNPDOC ---
Text Note Date of Service The patient was seen on 06/30/19. NOTE Time of service 115AM is a 74 yr old w a hx of Chronic HTN, ESRD, DM A1C 8.9%, CAD/CABG and Dyslipidemia who initially presented to the hospital yesterday evening bc her SBP was in the 200s; at the time she denied having any symptoms. was consulted; he recommended that she discontinue her Coreg and start taking Labetalol 100mg BID. After being given IV labetalol and being sent home with a script for PO labetalol, she returned w c/o of severe sharp frontal headache and dizziness. She denies missing dialysis, chest pain, weakness, back pain, falling or dropping any objects. Her physical exam is unremarkable except for mild conjunctival injection. She will be admitted for management of HTN Urgency. 1. HTN Urgency Her main symptoms are CUENCA and dizziness. CT showed microvascular ischemic changes. The EKG showed NRS w a rate of 76, ST elevation in III & V2 w ST segment depression in V4 to V6 along w LVH. Plan: telemetry / f/u serial Trops EKGs / resume amlodipine, hydralazine and labetalol / will give one dose of PO lasix tonight / if she continues to have a CUENCA and feel dizzy the day time team may consider ordering MRI of the brain / will ask the day time team to call to discuss the optimal regimen prior to dc /acetaminophen for CUENCA 2. ESRD TTS - Nephro consult if she is not discharged tomorrow 3. IDDM - insulin w hypoglycemia protocol / f/u accuchecks 4. Coronary artery disease/CABG - ASA Rest per 's H&P VS,Fishbone, I+O VS, [place], I+O Vital Signs Date Time Temp Pulse Resp B/P (MAP) Pulse Ox O2 Delivery O2 Flow Rate FiO2 06/30/19 00:44 194/90 (124) 06/30/19 00:08 86 18 98 Room Air 06/29/19 22:41 97.5 DAXA GANN MD June 30, 2019 01:09
[2019-06-30] MEDS ORDERED: AMLO5TAB6 PO (01:22)
[2019-06-30] MEDS ORDERED: PRAV80TA2 PO (01:22)
[2019-06-30] MEDS ORDERED: LABE100T36 PO (01:22)
[2019-06-30] MEDS ORDERED: LIDO2.5C15 TOP (01:22)
[2019-06-30] MEDS ORDERED: GABA-1171 PO (01:22)
[2019-06-30] MEDS ORDERED: ASPI81CH33 PO (01:22)
[2019-06-30] MEDS ORDERED: HYDR-3910 PO (01:22)
[2019-06-30] MEDS ORDERED: GLUCOSE 4GM CHEW TABLET PO PRN (01:30)
[2019-06-30] MEDS ORDERED: traMADol 50 MG TAB PO PRN (01:30)
[2019-06-30] MEDS ORDERED: GLUCAGON INJ 1MG VIAL SC PRN (01:30)
[2019-06-30] MEDS ORDERED: DEXTROSE 50% 50 ML SYRINGE IV PRN (01:30)
[2019-06-30] MEDS ORDERED: LABETALOL 100MG/20ML VIAL IV SCH (01:30)
[2019-06-30] MEDS ORDERED: DOCUSATE SODIUM 100 MG CAP PO PRN (01:30)
[2019-06-30 01:57] LABS: BASO % 0.6 % (0.0-1.0); EOS # 0.1 10^3/uL (0.0-0.5); EOS % 2.3 % (0.0-3.0); HEMATOCRIT 39.9 % (36.0-47.0); HEMOGLOBIN 11.5 g/dl (12.0-15.5); LYMPH # 1.1 10^3/uL (1.5-5.0); LYMPH % 21.4 % (24.0-44.0); MEAN CORPUSCULAR HEMOGLOBIN 25.8 pg (27.0-33.0); MEAN CORPUSCULAR HGB CONC 28.8 g/dl (32.0-36.5); MEAN CORPUSCULAR VOLUME 89.5 fl (80.0-96.0); MONO # 0.5 10^3/uL (0.0-0.8); MONO % 9.4 % (0.0-5.0); NEUTROPHILS # 3.4 10^3/uL (1.5-8.5); NEUTROPHILS % 65.9 % (36.0-66.0); PLATELET COUNT, AUTOMATED 142 10^3/uL (150-450); RED BLOOD COUNT 4.46 10^6/uL (4.00-5.40); WHITE BLOOD COUNT 5.1 10^3/uL (4.0-10.0)
[2019-06-30 02:19] LABS: ERYTHROCYTE SEDIMENTATION RATE 28 mm/hr (0-30)
[2019-06-30 02:29] LABS: ALBUMIN 3.3 GM/DL (3.2-5.2); ALT/SGPT 12 U/L (12-78); BILIRUBIN,TOTAL 0.3 MG/DL (0.2-1.0); BLOOD UREA NITROGEN 41 MG/DL (7-18); C REACTIVE PROTEIN QUANTITATIV < 0.30 MG/DL (0.00-0.30); CALCIUM LEVEL 8.7 MG/DL (8.8-10.2); CARBON DIOXIDE LEVEL 32 MEQ/L (21-32); CHLORIDE LEVEL 100 MEQ/L (98-107); CK-MB VALUE MASS 3.2 NG/ML (<3.6); CPK CREATINE PHOSPHOKINASE 84 U/L (26-192); CREATININE FOR GFR 7.37 MG/DL (0.55-1.30); GLUCOSE, FASTING 73 MG/DL (70-100); MAGNESIUM LEVEL 2.2 MG/DL (1.8-2.4); MB/CK RELATIVE INDEX 3.81 (< OR =4); SODIUM LEVEL 138 MEQ/L (136-145); TOTAL PROTEIN 6.6 GM/DL (6.4-8.2); TROPONIN I 0.04 NG/ML (< 0.10)
--- NOTE | 2019-06-30 03:06 | HPEPDOC ---
General Date of Admission June 30, 2019 at 01:08 Date of Service: June 30, 2019 Attending Physician: DAXA GANN MD Chief Complaint The patient is a 74-year-old female admitted with a reason for visit of Hypertensive Urgency. History of Present Illness HPI: This is a 74-year-old female with extensive past medical history as noted below, including hypertension, presenting for frontal headache and generalized weakness. She initially had presented yesterday 06/28 for the same complaint, found to be hypertensive 200s/100s improved with total of 30 MG IV labetalol. On discharge from the ER, she was instructed to stop taking her Carvedilol and inst ead start on po labetalol 100 mg every 12 hours, continue amlodipine and hydralazine, and follow-up with Dr. Goldman in office. She picked up her meds yesterday evening, but did not take them, and within hours of arriving home, she began re-experiencing her headache and weakness and found home BP to be 202/78, urging her to return to the ER. She will now be admitted for continued hypertensive urgency. She has no other complaints and denies all other symptoms, including chest pain, shortness of breath, edema, lightheadedness, palpitations. She denies any new exposures or any other changes in meds. In the ER on this admission, her BP again is 190s/90s. She received 100 mg by mouth labetalol and 20 mg IV labetalol and will be admitted for further BP management. 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 Smoked 1 PPD for 14 years Denies alcohol or illicit substances Lives at home with ROS: Constitutional: Denies fever, chills, night sweats, weight loss HEENT: Denies dysphagia, auditory or visual disturbances, tinnitus. Admits to frontal headache Skin: Denies any rashes or lesions Pulmonary: Denies dyspnea, cough, wheezing Cardiac: Denies chest pain, palpitations, orthopnea, PND, edema, lightheadedness GI: Denies nausea, vomiting, abdominal pain, diarrhea, constipation, melena, hematochezia MSK: Denies new pains or weakness Neurologic: Denies new numbness/tingling. 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 Healed CABG scar. No edema Respiratory: Mild bibasilar crackles, otherwise clear, good air exchange Abdomen: soft, NT, ND, normoactive bowel sounds Extremity: 2+ radial and dorsalis pedis pulses, no edema or calf tenderness. AVF left arm Skin: warm, dry, no visible rash Msk: strength intact throughout, normal tone Neuro: normal speech, no focal deficits or facial droop Psych: Normal mood and affect LABORATORY DATA, MICROBIOLOGY: Please see below. ASSESSMENT AND PLAN: This is a 74-year-old female with extensive PMH with uncontrolled hypertension now presenting for hypertensive urgency with complaint of headache without any other deficits or complaints. Headache likely 2/2 Hypertensive urgency BP 190s/90s on admission. S/P 100 MG by mouth labetalol & 20 MG IV labetalol in ER with minimal improvement Goal to gradually reduce BP, MAP decrease of 25-30% on the next several hours Resume home BP meds per new regimen from 06/28: po labetalol, hydralazine, am lodipine Will increase amlodipine dose from 5 MG to 10 MG Monitor on telemetry and trend cardiac markers Neuro checks in place For the remainder of her chronic medical conditions, they are stable and patients home meds are resumed with hold parameters where applicable. Consult nephrology if patient ist still in hospital by Monday due to her regular hemodialysis schedule Monday. DVT prophylaxis: heparin sc CODE STATUS: Discussed in depth with patient on admission. Requesting DNR/DNI. If unable to make decisions, she would like her to. DISPOSITION: admit to hospital on tele for bp control. Consult Nephro for continued HD MWF. Home Medications Scheduled Amlodipine Besylate (Amlodipine Besylate) 5 Mg Tablet, 5 MG PO QHS, (Reported) Aspirin (Aspirin) 81 Mg Tab.chew, 81 MG PO QHS, (Reported) Denosumab Injection (Prolia) 60 Mg/1 Ml Syringe, 60 MG SC EVERY SIX MONTHS, (Reported) HAD INJECTION IN JANUARY DUE IN JULY Hydralazine HCl (Hydralazine HCl) 25 Mg Tablet, 25 MG PO TID, (Reported) HOLD IF SYSTOLIC PRESSURE IS <110 Insulin Glargine,Hum.rec.anlog (Lantus Solostar) 100 Unit/1 Ml Insuln.pen, 19 UNITS SQ BID, (Reported) Labetalol HCl (Labetalol HCl) 100 Mg Tablet, 100 MG PO BID, (Reported) Lidocaine/Prilocaine (Lidocaine-Prilocaine Cream) 2.5%/2.5% Cream..g., 1 DOSE TOP 3XW, (Reported) APPLY 1 HOUR BEFORE DIALYSIS Pravastatin Sodium (Pravastatin Sodium) 80 Mg Tablet, 80 MG PO QHS, (Reported) Sevelamer Carbonate (Sevelamer Carbonate) 800 Mg Tablet, 1,600 MG PO BIDWM, (Reported) Scheduled PRN Gabapentin (Gabapentin) 100 Mg Capsule, 100 MG PO QHS PRN for PAIN, (Reported) Tramadol HCl (Tramadol HCl) 50 Mg Tablet, 100 MG PO BID PRN for PAIN, (Reported) Allergies Coded Allergies: Ohpipfv-Vds-Oat Reductase Inhibitor (Verified Allergy, Unknown, PAIN, 07/20/18) PT SAYS SHE CAN TAKE PRAVASTATIN A-FIB/CHADSVASC A-FIB History Current/History of A-Fib/PAF?: No Vital Signs Vital Signs Date Time Temp Pulse Resp B/P (MAP) Pulse Ox O2 Delivery O2 Flow Rate FiO2 06/30/19 00:58 194/90 06/30/19 00:08 86 18 98 Room Air 06/29/19 22:41 97.5 Laboratory Data Labs 24H Laboratory Tests 2 06/30/19 01:49: Immature Granulocyte % (Auto) 0.4, Neutrophils (%) (Auto) 65.9, Lymphocytes (%) (Auto) 21.4L, Monocytes (%) (Auto) 9.4H, Eosinophils (%) (Auto) 2.3, Basophils (%) (Auto) 0.6, Neutrophils # (Auto) 3.4, Lymphocytes # (Auto) 1.1L, Monocytes # (Auto) 0.5, Eosinophils # (Auto) 0.1, Basophils # (Auto) 0.0, Nucleated Red Blood Cells % (auto) 0.0, Erythrocyte Sedimentation Rate 28, Anion Gap 6L, Glomerular Filtration Rate 7.0L, Lactic Acid Level 0.8, Calcium Level 8.7L, Phosphorus Level 4.0, Magnesium Level 2.2, Total Bilirubin 0.3, Aspartate Amino Transf (AST/SGOT) 13, Alanine Aminotransferase (ALT/SGPT) 12, Alkaline Phosphatase 69, Total Creatine Kinase 84, Creatine Kinase MB 3.2, Creatine Kinase MB Relative Index 3.81, Troponin I 0.04#, C-Reactive Protein, Quantitative < 0.30, Total Protein 6.6, Albumin 3.3, Albumin/Globulin Ratio 1.00 CBC/BMP Laboratory Tests 06/30/19 01:49 Plan / VTE VTE Prophylaxis Ordered?: Yes GME ATTESTATION GME ATTESTATION My faculty preceptor for this patient encounter was physically present during the encounter and was fully available. All aspects of the patient interview, examination, medical decision making process, and medical care plan development were reviewed and approved by the faculty preceptor. The faculty preceptor is aware and concurs with the plan as stated in the body of this note and will at test to such by his/her cosignature. ATTENDING NOTE I reviewed the H&P and agree with the findings pls see my addendum for additional details. KIM IZAGUIRRE DO June 30, 2019 03:06 DAXA GANN MD July 01, 2019 00:52
[2019-06-30] MEDS: PRAVASTATIN 20 MG TAB PO SCH ×2 (03:57→20:07)
[2019-06-30] MEDS: ASPIRIN 81 MG CHEW TABLET PO SCH ×2 (03:57→20:07)
[2019-06-30] MEDS: RAMELTEON 8 MG TAB (ROZEREM) PO PRN (03:58)
[2019-06-30] MEDS ORDERED: PILL CUTTER 1 EACH XX PRN (04:00)
[2019-06-30] MEDS: HEPARIN SOD (PORCINE) 5000UNITS/ML VIAL (J1644 PER 1000UNITS) SQ SCH ×3 (04:02→21:06)
[2019-06-30] MEDS: HumaLOG INSULIN (NovoLOG) PER UNIT SC SCH ×4 (07:30→20:01)
[2019-06-30] MEDS: LEVEMIR (INSULIN DETEMIR) 1 UNITS/0.01ML SQ SCH ×2 (09:00→20:07)
[2019-06-30] MEDS ORDERED: **hydrALAZINE HCL** 25 MG TAB PO SCH (09:00)
[2019-06-30] MEDS: FUROSEMIDE 20 MG TAB PO SCH (09:00)
[2019-06-30] MEDS: (RENVELA) SEVELAMER **CARBONate** 800 MG TAB PO SCH ×2 (09:07→17:44)
[2019-06-30] MEDS: LABETALOL 100 MG TAB PO SCH ×2 (09:07→20:08)
--- NOTE | 2019-06-30 12:32 | IPNPDOC ---
Text Note Date of Service The patient was seen on 06/30/19. NOTE Subjective: -Doing well this AM, no complaints, no chest pain, palpitations, SOB. No headache this morning Objective: General exam: A&Ox3, NAD, sleeping, awake on voice HEENT: NCAT, EOMI, moist mucous membranes, mild injection bilaterally, no tearing or discharge Neck: Supple Cardiac: RRR, normal S1 & S2, no murmurs. Respiratory: Trace bibasilar crackles, otherwise clear, no wheezing or rhonchi Abdomen: soft, NT, ND, normoactive bowel sounds Extremity: WWP, no LE edema, AVF at left arm with palpable thrill Skin: No rashes or lesions Msk: strength intact throughout, normal tone Neuro: CN2-2 intact, no dysarthria, moving all extremities with ful strength throughout Psych: AOx3 LABORATORY: Reviewed. Trop negative x 2 ASSESSMENT AND PLAN: 74-year-old W with Chronic HTN, ESRD, DM A1C 8.9%, CAD/CABG and Dyslipidemia who presented with an headache and found to be in hypertensive urgency without evidence of 1. HTN Urgency with associated headache: headache as resolved this AM and BP improved -CT head showed microvascular ischemic changes. -EKG showed NRS with concern for dynamic anterior ST depressions that were not apparent this AM, trop was negative, no chest pain, will monitor on Resume home amlodipine 10, labetalol 100 BID and increase hydral 25 TID to 50 TID for persistent hypertension. -Acetaminophen PRN for CUENCA 2. ESRD TTS - Nephro consult if she is not discharged by Monday 3. IDDM - insulin w hypoglycemia protocol / f/u accuchecks 4. Coronary artery disease/CABG - ASA DVT prophylaxis: heparin sc CODE STATUS: DNR/DNI. If unable to make decisions, she would like her to. DISPOSITION: PCU VS,Fishbone, I+O VS, Fishbone, I+O Laboratory Tests 06/30/19 01:49 Vital Signs Date Time Temp Pulse Resp B/P (MAP) Pulse Ox O2 Delivery O2 Flow Rate FiO2 06/30/19 09:07 66 175/70 06/30/19 08:00 96.5 18 99 Room Air I&O- Last 24 Hours up to 6 AM 06/30/19 06:00 Intake Total 0 ml Output Total 0 ml Balance 0 ml HODA GUERRERO MD June 30, 2019 12:32
[2019-06-30] MEDS ORDERED: **hydrALAZINE HCL** 25 MG TAB PO ONE (12:45)
--- NOTE | 2019-06-30 15:17 | ECGEPIP ---
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
--- NOTE | 2019-06-30 15:19 | ECGEPIP ---
[facility] Test Date: 2019-06-30 Pat Name: RONNIE BRAN Department: Room: [place] [address] Gender: Female Bonderizer: : [id number] Requested By: DAXA GANN Order Number: [id number] Reading MD: Yuriy Olivares Measurements Intervals [place] Rate: 72 P: 47 [place]: 184 QRS: 20 QRSD: 111 T: 93 QT: 431 QTc: 473 Interpretive Statements Normal sinus rhythm Low QRS complex voltage in the limb leads Inferior wall DC, age indeterminate Anterior DC, age indeterminate Nonspecific T wave abnormality Compared to prior tracing of earlier this date, R wave in V6 is restored Electronically Signed on 06-30-2019 15:19:05 EDT by Yuriy Olivares
[2019-06-30] MEDS: **hydrALAZINE** 50 MG TAB PO SCH ×2 (16:35→20:07)
[2019-06-30] MEDS: amLODIPine 10 MG TAB PO SCH (20:07)
[2019-06-30] MEDS: GABAPENTIN 100 MG CAP PO PRN (21:06)
[2019-07-01] VITALS: BP 172/76
[2019-07-01] MEDS: RAMELTEON 8 MG TAB (ROZEREM) PO PRN ×2 (00:21→21:02)
[2019-07-01 02:16] LABS: BASO % 0.8 % (0.0-1.0); EOS # 0.2 10^3/uL (0.0-0.5); EOS % 2.9 % (0.0-3.0); HEMATOCRIT 36.7 % (36.0-47.0); HEMOGLOBIN 10.8 g/dl (12.0-15.5); LYMPH % 18.8 % (24.0-44.0); MEAN CORPUSCULAR HGB CONC 29.4 g/dl (32.0-36.5); MEAN CORPUSCULAR VOLUME 88.4 fl (80.0-96.0); MONO # 0.4 10^3/uL (0.0-0.8); MONO % 7.5 % (0.0-5.0); NEUTROPHILS # 3.6 10^3/uL (1.5-8.5); NEUTROPHILS % 69.6 % (36.0-66.0); PLATELET COUNT, AUTOMATED 147 10^3/uL (150-450); RED BLOOD COUNT 4.15 10^6/uL (4.00-5.40); WHITE BLOOD COUNT 5.2 10^3/uL (4.0-10.0)
[2019-07-01 02:40] LABS: CALCIUM LEVEL 8.3 MG/DL (8.8-10.2); CREATININE FOR GFR 8.92 MG/DL (0.55-1.30); GLOMERULAR FILTRATION RATE 5.6 (>39); POTASSIUM SERUM 4.4 MEQ/L (3.5-5.1)
[2019-07-01 04:00] VITALS: BP 142/70
[2019-07-01] MEDS: HEPARIN SOD (PORCINE) 5000UNITS/ML VIAL (J1644 PER 1000UNITS) SQ SCH ×3 (05:01→21:01)
[2019-07-01] MEDS: HumaLOG INSULIN (NovoLOG) PER UNIT SC SCH ×4 (07:30→20:02)
[2019-07-01 08:00] VITALS: BP 158/82
[2019-07-01] MEDS: EMLA CREAM 5GM (LIDOCAINE/PRILOCAINE) TOP SCH (08:24)
[2019-07-01] MEDS: LEVEMIR (INSULIN DETEMIR) 1 UNITS/0.01ML SQ SCH ×2 (08:25→21:02)
[2019-07-01] MEDS: (RENVELA) SEVELAMER **CARBONate** 800 MG TAB PO SCH ×2 (08:26→17:26)
[2019-07-01] MEDS: LABETALOL 100 MG TAB PO SCH ×2 (08:27→21:03)
[2019-07-01] MEDS: FUROSEMIDE 20 MG TAB PO SCH (08:28)
[2019-07-01] MEDS: **hydrALAZINE** 50 MG TAB PO SCH ×3 (08:28→21:02)
[2019-07-01] MEDS: ACETAMINOPHEN TAB 650MG DOSE (2X325MG) PO PRN (09:59)
[2019-07-01 13:15] VITALS: BP 179/81
[2019-07-01 16:00] VITALS: BP 148/66
[2019-07-01 20:00] VITALS: BP 138/60
[2019-07-01] MEDS: ASPIRIN 81 MG CHEW TABLET PO SCH (21:02)
[2019-07-01] MEDS: GABAPENTIN 100 MG CAP PO PRN (21:02)
[2019-07-01] MEDS: PRAVASTATIN 20 MG TAB PO SCH (21:02)
[2019-07-01] MEDS: amLODIPine 10 MG TAB PO SCH (21:03)
--- NOTE | 2019-07-01 21:40 | IPN ---
DATE: 07/01/2019 Bree was seen while she was getting her dialysis session while rounding for the hospitalist. She was admitted with hypertensive urgency and headache. She has a history of end-stage renal disease, on chronic dialysis. Her headache was better yesterday but seems to have recurred today. No neck stiffness, visual disturbance. No focal neurologic deficits associated with this. Blood pressure has improved. PHYSICAL EXAMINATION: Blood pressure was currently 128/70 during dialysis, heart rate in the 80s. GENERAL APPEARANCE: Alert, conversant. LUNGS: Clear. HEART: Regular rate and rhythm. ABDOMEN: Soft, nontender. No peripheral edema. No focal neurologic deficits. LABORATORY DATA: CBC unremarkable. Electrolytes unremarkable. Potassium 4.4. Troponins were flat. IMPRESSION: 1. Hypertensive urgency. Blood pressure is improved with enforced compliance of her antihypertensives and dialysis. 2. Headache. Etiology is unknown. Could be related to the blood pressure, but blood pressure has improved now. If still present tomorrow, could consider neurology consultation. 3. Diabetes. Continue sliding-scale insulin with coverage. 4. Hyperlipidemia. Continue pravastatin 80 mg at bedtime. 5. Hypoglycemia. Blood sugar was in the 70s this morning. I am going to reduce the dose of her basal insulin from 15 to 10 mg of Levemir twice daily while on an enforced diabetic diet to avoid further potential hypoglycemia. Depending on her headache, she may be stable for discharge tomorrow.
[2019-07-02] VITALS: BP 148/82
[2019-07-02 04:00] VITALS: BP 161/71
[2019-07-02] MEDS: HEPARIN SOD (PORCINE) 5000UNITS/ML VIAL (J1644 PER 1000UNITS) SQ SCH ×4 (05:21→21:40)
[2019-07-02 05:47] LABS: HEMATOCRIT 37.8 % (36.0-47.0); HEMOGLOBIN 10.9 g/dl (12.0-15.5); MEAN CORPUSCULAR HGB CONC 28.8 g/dl (32.0-36.5); PLATELET COUNT, AUTOMATED 145 10^3/uL (150-450); WHITE BLOOD COUNT 5.1 10^3/uL (4.0-10.0)
[2019-07-02 06:16] LABS: ALBUMIN 2.9 GM/DL (3.2-5.2); CALCIUM LEVEL 8.4 MG/DL (8.8-10.2); CREATININE FOR GFR 6.59 MG/DL (0.55-1.30); PHOSPHORUS LEVEL 3.4 MG/DL (2.5-4.9); POTASSIUM SERUM 4.3 MEQ/L (3.5-5.1)
[2019-07-02 08:00] VITALS: BP 146/62
[2019-07-02] MEDS: LEVEMIR (INSULIN DETEMIR) 1 UNITS/0.01ML SQ SCH ×2 (08:15→21:36)
[2019-07-02] MEDS: HumaLOG INSULIN (NovoLOG) PER UNIT SC SCH ×4 (08:16→21:00)
[2019-07-02] MEDS: (RENVELA) SEVELAMER **CARBONate** 800 MG TAB PO SCH ×2 (08:16→18:07)
[2019-07-02] MEDS: LABETALOL 100 MG TAB PO SCH ×2 (08:17→21:37)
[2019-07-02] MEDS: **hydrALAZINE** 50 MG TAB PO SCH ×3 (08:17→21:37)
--- NOTE | 2019-07-02 11:42 | IPNPDOC ---
Date Seen The patient was seen on 07/02/19. 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 Symptoms improved, denies any headache today. She does report lower extremity weakness and request for PT. She has not had a bowel movement since , 5 days ago. OBJECTIVE PHYSICAL EXAMINATION: VITAL SIGNS: Please see below. GENERAL: Pleasant, -Israeli female in No distress HEENT: Normocephalic, atraumatic, moist mucous membranes NECK: Supple CARDIOVASCULAR EXAMINATION: S1, S2 RESPIRATORY EXAMINATION: CTAB ABDOMINAL EXAMINATION: Soft, nontender, nondistended, positive bowel sounds EXTREMITIES: trace edema SKIN: No rash NEUROLOGICAL EXAMINATION: Alert PSYCHIATRIC EXAMINATION: Calm and cooperative, appropriate affect LABORATORY DATA, IMAGING STUDIES, MICROBIOLOGY: Please see below. ASSESSMENT AND PLAN: Pt is a 74-year-old female with past medical history of ESRD with HD M, W, F, anemia of chronic disease, systolic and diastolic CHF, HTN, CAD status post CABG, history of CVA with residual right hemiparesis and slurred speech, IDDM 2, HLD, spinal stenosis status post lumbar laminectomy, JENNIFER and nocturnal pulse oximetry, presenting with frontal headache, generalized weak ness and found to be in hypertensive urgency. PROBLEMS: 1. Hypertensive urgency: Controlled on Amlodipine 10 mg daily at bedtime, hydralazine 50 mg by mouth 3 times a day, labetalol 100 mg by mouth twice a day, creatinine improved from 8.9-6.59. 2. ESRD on HD [facility], plan for HD tomorrow 07/03/2019. Plan for discharge after HD 3. Deconditioning secondary to above, PT eval with recommendations for home PT #Anemia of chronic disease likely secondary to ESRD and likely JENNIFER: Continue home meds #IDDM. 2: Continue insulin sliding scale and insulin in-house, resume home medications. At discharge #HLD: Continue home meds #Chronic pain and dairy to spinal stenosis status post lumbar laminectomy, continue home tramadol 100 mg twice a day when necessary and gabapentin 100 mg daily at bedtime when necessary #Hx of CVA: cont home ASA DISPOSITION: DC home 07/03/2019, will need follow-up with PCP, cardiology, and nephrology in 1 week. 32 minutes are spent in care coordination. VS, I&O, 24H, Fishbone Vital Signs/I&O Vital Signs Date Time Temp Pulse Resp B/P (MAP) Pulse Ox O2 Delivery O2 Flow Rate FiO2 07/02/19 08:00 97.5 72 16 146/62 (90) 99 Room Air I&O- Last 24 Hours up to 6 AM 07/02/19 05:59 Intake Total 450 ml Output Total 2125 ml Balance -1675 ml Laboratory Data 24H LABS Laboratory Tests 2 07/01/19 13:10: Bedside Glucose (Misc Panel) 52L 07/01/19 13:12: Bedside Glucose (Misc Panel) 49L 07/01/19 14:05: Bedside Glucose (Misc Panel) 121H 07/01/19 16:58: Bedside Glucose (Misc Panel) 142H 07/01/19 19:44: Bedside Glucose (Misc Panel) 140H 07/02/19 05:10: Nucleated Red Blood Cells % (auto) 0.4H, Anion Gap 7L, Glomerular Filtration Rate 8.0L, Calcium Level 8.4L, Phosphorus Level 3.4, Albumin 2.9L 07/02/19 11:15: Bedside Glucose (Misc Panel) 99 CBC/BMP Laboratory Tests 07/02/19 05:10 PURNIMA BREWER MD July 02, 2019 11:42
[2019-07-02 12:00] VITALS: BP 138/60
[2019-07-02] MEDS: MIRALAX *UNIT DOSE* 17GM PACKET PO SCH (12:01)
[2019-07-02 15:22] VITALS: BP 142/78
[2019-07-02] MEDS: ASPIRIN 81 MG CHEW TABLET PO SCH (21:36)
[2019-07-02] MEDS: RAMELTEON 8 MG TAB (ROZEREM) PO PRN (21:36)
[2019-07-02] MEDS: PRAVASTATIN 20 MG TAB PO SCH (21:36)
[2019-07-02] MEDS: amLODIPine 10 MG TAB PO SCH (21:37)
[2019-07-02 22:00] VITALS: BP 164/77
--- NOTE | 2019-07-03 01:53 | CR ---
DATE OF CONSULTATION: 07/01/2019 REQUESTING PHYSICIAN: Dr. Katia Joseph CONSULTING PHYSICIAN: Dr. Kiran REASON FOR CONSULTATION: Management of end-stage renal disease and hemodialysis. CHIEF COMPLAINT: Patient presented to the hospital on 06/30/2019 because of uncontrolled hypertension. HISTORY OF PRESENT ILLNESS: Bree Acosta is a 74-year-old female with past medical history of end-stage renal disease, on hemodialysis every Monday, Monday, Monday, chronic combined systolic and diastolic congestive heart failure, chronically noncompliant with medications, well known to nephrology service from outpatient dialysis and from multiple previous hospitalizations. Patient presented to the emergency room 2 days ago because of headache and generalized weakness. Systolic blood pressures were in 200s and diastolic in 100s. Patient was admitted to the hospital under the hospitalist service. She was started on intravenous (IV) labetalol. Nephrology service was called for further help in the management of this patient with history of end-stage renal disease. I arranged the hemodialysis early in the morning. Patient was getting hemodialysis in the morning when I saw her at the bedside. Patient reports that she is feeling better. PAST MEDICAL HISTORY: 1. End-stage renal disease, on hemodialysis every Monday, Monday, Monday. 2. History of hypertension. 3. Chronic combined systolic and diastolic congestive heart failure. 4. Diabetes mellitus type 2, insulin dependent. 5. Hyperlipidemia. 6. History of spinal stenosis. 7. Anemia on end-stage renal disease. 8. History of coronary artery disease requiring coronary artery bypass grafting. 9. Bilateral bronchiectasis with calcified granulomas. 10. History of CVA with residual right hemiparesis and slurred speech. PAST SURGICAL HISTORY: 1. Status post hysterectomy. 2. Status post coronary artery bypass grafting. 3. Status post lumbar laminectomy. 4. Status post left upper arm arteriovenous (AV) fistula. ALLERGIES: She is allergic to STATINS. FAMILY HISTORY: Positive family history of end-stage renal disease in mother. SOCIAL HISTORY: Patient is an ex-smoker. She denies any illicit drug abuse or alcohol abuse, and she lives at home. REVIEW OF SYSTEMS: CONSTITUTIONAL: She denies any fevers or chills. EYES: She denies any blurry vision, double vision. EAR, NOSE, AND THROAT (ENT): She denies any dysphagia, odynophagia, ear discharge. CARDIOVASCULAR: She reported palpitations, and she was admitted with high blood pressure. RESPIRATORY: She denies any shortness of breath or cough. GASTROINTESTINAL (GI): She denies any nausea or vomiting. GENITOURINARY: She denies any dysuria or hematuria. MUSCULOSKELETAL: She denies any muscle aches and pains. She does report weakness. SKIN: She denies any rashes or ulcers. CENTRAL NERVOUS SYSTEM (SHAKER OUT): She denies any seizures, but she did report numbness and headache when she came. HEMATOLOGIC/ONCOLOGIC: She denies any easy bleeding or bruising. ENDOCRINE: She reports history of her diabetes mellitus type 2. All other review of systems is negative. PHYSICAL EXAMINATION: GENERAL: Patient is awake, alert, oriented times three, lying in bed, getting hemodialysis done. VITAL SIGNS: Temperature is 97.1 degrees Fahrenheit, blood pressure 179/81, pulse is 70, respiratory rate of 18, saturating 95% on room air. HEAD AND NECK EXAM: Extraocular muscles intact. Patient has slight facial edema and periorbital edema. Mucous membranes are moist. Neck is supple. There is mild elevation of jugular venous distention (JVD). CARDIOVASCULAR: S1, S2, regular rate. No edema of the bilateral lower extremities. RESPIRATORY: Chest is clear to auscultation bilaterally. Bilateral equal air entry. No rales or rhonchi. ABDOMEN: Soft. Positive bowel sounds. Nontender. No organomegaly. MUSCULOSKELETAL: No clubbing or cyanosis. Pulses are 2+. CENTRAL NERVOUS SYSTEM: No focal deficit. Power is 5/5 in all extremities. LAB REVIEW: CBC showed WBC 5.2, hemoglobin 10.8, platelets of 147. BMP showed sodium of 135, potassium 4.4, chloride 198, bicarbonate 28, BUN 54, creatinine is 8.9, calcium 8.3, magnesium is 2.1. CURRENT INPATIENT MEDICATIONS: Patient's medications were all reviewed by myself. She is on: - Tylenol as needed - amlodipine 10 mg daily - aspirin 81 mg nightly - Lasix 10 mg by mouth daily - gabapentin 100 mg by mouth nightly - heparin subcutaneous - hydralazine 50 mg by mouth three times a day - insulin Levemir 10 units subcutaneous twice a day - labetalol 100 mg by mouth twice a day - pravastatin 80 mg nightly - Rozerem 8 mg nightly as needed for insomnia - Renvela 1600 mg by mouth with meals - tramadol 100 mg twice a day as needed for pain ASSESSMENT: 74-year-old female with history of end-stage renal disease, on hemodialysis, diabetes mellitus type 2, hypertension, chronic combined systolic and diastolic congestive heart failure, admitted at this time with hypertensive urgency. PLAN: 1. End-stage renal disease. Patient is being dialyzed. Ultrafiltration goal will be 2.5 liters as tolerated by her blood pressure. Electrolytes are within the acceptable range. 2. Hypertensive urgency. Patient is noncompliant with her medications as outpatient. So many times whenever she is admitted, her antihypertensive regimen is adjusted. She does well inpatient, but when she goes home, her blood pressure gets uncontrolled and she does not take her medications. 3. Chronic combined systolic and diastolic congestive heart failure. It is very difficult to assess the volume status of this patient. She only gets facial edema. She does not take her medications at home. Lasix 10 mg by mouth daily in renal failure is not really useful. I am going to stop the diuretic at this time. Continue current dose of labetalol and hydralazine. Volume status is being optimized with dialysis. 4. Anemia and end-stage renal disease. Hemoglobin is 10.8. No need of Aranesp at this time. 5. Diabetes mellitus type 2. Continue current dose of insulin Levemir and sliding scale. 6. Coronary artery disease status post coronary artery bypass grafting. Continue current dose of pravastatin 80 mg daily. Continue the beta-shante. Thank you for involving me in the care of this patient. I shall be happy to follow the patient along with you tomorrow morning.
[2019-07-03 06:00] VITALS: BP 152/76
[2019-07-03] MEDS: HEPARIN SOD (PORCINE) 5000UNITS/ML VIAL (J1644 PER 1000UNITS) SQ SCH ×3 (06:35→21:19)
[2019-07-03] MEDS: **hydrALAZINE** 50 MG TAB PO SCH ×3 (06:36→21:18)
[2019-07-03] MEDS: LABETALOL 100 MG TAB PO SCH ×2 (06:36→21:17)
[2019-07-03 06:54] LABS: HEMATOCRIT 36.5 % (36.0-47.0); HEMOGLOBIN 10.6 g/dl (12.0-15.5); MEAN CORPUSCULAR HEMOGLOBIN 25.7 pg (27.0-33.0); MEAN CORPUSCULAR VOLUME 88.4 fl (80.0-96.0); PLATELET COUNT, AUTOMATED 151 10^3/uL (150-450); RED BLOOD COUNT 4.13 10^6/uL (4.00-5.40); WHITE BLOOD COUNT 4.8 10^3/uL (4.0-10.0)
[2019-07-03] MEDS: EMLA CREAM 5GM (LIDOCAINE/PRILOCAINE) TOP SCH (07:11)
[2019-07-03 07:17] LABS: CALCIUM LEVEL 8.4 MG/DL (8.8-10.2); CREATININE FOR GFR 8.3 MG/DL (0.55-1.30); GLOMERULAR FILTRATION RATE 6.1 (>39)
[2019-07-03] MEDS: (RENVELA) SEVELAMER **CARBONate** 800 MG TAB PO SCH ×2 (07:40→18:42)
[2019-07-03] MEDS: HumaLOG INSULIN (NovoLOG) PER UNIT SC SCH ×4 (07:59→21:00)
[2019-07-03] MEDS: MIRALAX *UNIT DOSE* 17GM PACKET PO SCH (08:08)
[2019-07-03] MEDS: LEVEMIR (INSULIN DETEMIR) 1 UNITS/0.01ML SQ SCH ×2 (08:08→21:19)
--- NOTE | 2019-07-03 12:09 | IPN ---
DATE: 07/02/2019 SUBJECTIVE: The patient was seen and examined at the bedside this morning. She was dialyzed yesterday. She tolerated the hemodialysis procedure well. 2 liter of fluid was removed. Blood pressure is better controlled now. The patient reports that she has weakness of the leg, otherwise she is feeling better. OBJECTIVE: Vital signs: Temperature is 97.5 degrees Fahrenheit, blood pressure 146/62, pulse is 72, respiratory of 16, saturating 99% on room air. Intake and output: There is no urine output recorded. Ultrafiltration with hemodialysis was 2 liters. Weight in the bed scale is 71. PHYSICAL EXAMINATION: General: The patient is awake, alert, oriented times three, sitting up in the sofa no apparent distress. Head and neck exam: Extraocular muscles intact. The patient has periorbital edema. Mucous membranes are moist. Neck is supple. There is no jugular venous distention (JVD). Cardiovascular: S1, S2 regular rate. No edema of the bilateral lower extremities. Respiratory: Chest is clear to auscultation bilaterally. Bilateral equal air entry. No rales or rhonchi. Abdomen: Soft, positive bowel sounds. Nontender. No organomegaly. Musculoskeletal: No clubbing or cyanosis. She has left upper arm AV fistula with thrill and bruit. 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 Power is 5/5 in all extremities. LAB REVIEW: CBC showed WBC 5.1, hemoglobin 10.9, platelets of 145. BMP showed sodium 138, potassium 4.3, chloride 99, bicarb 32, BUN 33, creatinine is 6.5, calcium 8.4, phosphorus is 3.4, albumin 2.9. CURRENT INPATIENT MEDICATIONS: The patient's medications were all reviewed by myself. She continues to be on amlodipine 10 mg daily, hydralazine 50 mg by mouth three times a day and labetalol 100 mg by mouth twice a day. No other significant change in the medications today as compared with yesterday. ASSESSMENT/PLAN: 1. End-stage renal disease on hemodialysis: The patient was dialyzed yesterday according to Monday, Monday, Monday schedule. Volume status is optimal. 2. Hypertension with end-stage renal disease and hypertensive heart disease. The patient is noncompliant with medications as outpatient. She is currently on amlodipine, hydralazine and labetalol. Blood pressure is very nicely controlled. 3. 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 The patient was dialyzed yesterday. Two liters of fluid was removed. Volume status is better optimized. 4. Anemia in end-stage renal disease, hemoglobin is 10.9 which is optimal. 5. Chronic kidney disease mineral bone disease: Continue current dose of Renvela 1600 mg by mouth with meals. Phosphorus level is optimal. 6. Diabetes mellitus type 2 insulin dependent. She is currently on Levemir. Glucose levels are well-controlled.
--- NOTE | 2019-07-03 13:47 | IPNPDOC ---
Date Seen The patient was seen on 07/03/19. 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 Symptoms improved, denies any headache today. She has not had a bowel movement since , 6 days ago, added MiraLAX yesterday, will add senna today, also reports that her HD, plan to stay in the hospital today and plan for DC tomorrow. She does report lower extremity weakness, PT eval, no rehab at this time. OBJECTIVE PHYSICAL EXAMINATION: VITAL SIGNS: Please see below. GENERAL: Pleasant, -[place] female in No distress HEENT: Normocephalic, atraumatic, moist mucous membranes NECK: Supple CARDIOVASCULAR EXAMINATION: S1, S2 RESPIRATORY EXAMINATION: CTAB ABDOMINAL EXAMINATION: Soft, nontender, nondistended, positive bowel sounds EXTREMITIES: trace edema SKIN: No rash NEUROLOGICAL EXAMINATION: Alert PSYCHIATRIC EXAMINATION: Calm and cooperative, appropriate affect LABORATORY DATA, IMAGING STUDIES, MICROBIOLOGY: Please see below. 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 PROBLEMS: 1. Hypertensive urgency: Controlled on Amlodipine 10 mg daily at bedtime, hydralazine 50 mg by mouth 3 times a day, labetalol 100 mg by mouth twice a day, creatinine improved from 8.9-6.59. 2. ESRD on HD MW, plan for HD tomorrow 07/03/2019. Plan for discharge after HD 3. Deconditioning secondary to above, PT eval with recommendations for home PT #Anemia of chronic disease likely secondary to ESRD and likely JENNIFER: Continue home meds #IDDM. 2: Continue insulin sliding scale and insulin in-house, resume home medications. At discharge #HLD: Continue home meds #Chronic pain and dairy to spinal stenosis status post lumbar laminectomy, continue home tramadol 100 mg twice a day when necessary and gabapentin 100 mg daily at bedtime when necessary #Hx of CVA: cont home ASA #Constipation, currently on MiraLAX, added senna today DISPOSITION: DC home 07/04/2019, will need follow-up with PCP, cardiology, and nephrology in 1 week. VS, I&O, 24H, Fishbone Vital Signs/I&O Vital Signs Date Time Temp Pulse Resp B/P (MAP) Pulse Ox O2 Delivery O2 Flow Rate FiO2 07/03/19 06:36 70 152/76 07/03/19 06:00 98.2 18 100 Room Air I&O- Last 24 Hours up to 6 AM 07/03/19 06:00 Intake Total 900 ml Output Total 0 ml Balance 900 ml Laboratory Data 24H LABS Laboratory Tests 2 07/02/19 16:25: Bedside Glucose (Misc Panel) 128H 07/02/19 21:17: Bedside Glucose (Misc Panel) 201H 07/03/19 06:13: Nucleated Red Blood Cells % (auto) 0.0, Anion Gap 8, Glomerular Filtration Rate 6.1L, Calcium Level 8.4L, Phosphorus Level 5.0#H, Albumin 3.0L 07/03/19 12:57: Bedside Glucose (Misc Panel) 56L 07/03/19 13:31: Bedside Glucose (Misc Panel) 65L CBC/BMP Laboratory Tests 07/03/19 06:13 PURNIMA BREWER MD July 03, 2019 13:47
[2019-07-03 14:00] VITALS: BP 153/77
[2019-07-03] MEDS: SENNA 8.6 MG TAB (SENOKOT) PO SCH ×2 (15:35→21:00)
[2019-07-03] MEDS: PRAVASTATIN 20 MG TAB PO SCH (21:17)
[2019-07-03] MEDS: amLODIPine 10 MG TAB PO SCH (21:18)
[2019-07-03] MEDS: ASPIRIN 81 MG CHEW TABLET PO SCH (21:18)
[2019-07-03 22:00] VITALS: BP 159/79
[2019-07-04] MEDS: HEPARIN SOD (PORCINE) 5000UNITS/ML VIAL (J1644 PER 1000UNITS) SQ SCH (05:44)
[2019-07-04] MEDS: ACETAMINOPHEN TAB 650MG DOSE (2X325MG) PO PRN (05:44)
[2019-07-04 06:00] VITALS: BP 151/74
[2019-07-04 06:27] LABS: HEMATOCRIT 38.7 % (36.0-47.0); HEMOGLOBIN 11.2 g/dl (12.0-15.5); MEAN CORPUSCULAR HEMOGLOBIN 25.6 pg (27.0-33.0); MEAN CORPUSCULAR HGB CONC 28.9 g/dl (32.0-36.5); MEAN CORPUSCULAR VOLUME 88.4 fl (80.0-96.0); PLATELET COUNT, AUTOMATED 153 10^3/uL (150-450); RED BLOOD COUNT 4.38 10^6/uL (4.00-5.40); WHITE BLOOD COUNT 4.7 10^3/uL (4.0-10.0)
[2019-07-04 06:51] LABS: CALCIUM LEVEL 8.4 MG/DL (8.8-10.2); CREATININE FOR GFR 5.91 MG/DL (0.55-1.30); PHOSPHORUS LEVEL 4.6 MG/DL (2.5-4.9); POTASSIUM SERUM 4.9 MEQ/L (3.5-5.1)
--- NOTE | 2019-07-04 07:01 | IPN ---
DATE OF SERVICE: 07/03/2019 SUBJECTIVE: The patient was seen and examined at the bedside today morning during hemodialysis. The patient is tolerating the hemodialysis procedure well. Blood pressures are better controlled. She still reports weakness in the lower extremities. OBJECTIVE: Vital Signs: Temperature is 98.2 degrees Fahrenheit, blood pressure 153/77, pulse is 70, respiratory rate of 18, saturating 100% on room air. Intake and Output: There is no urine output recorded. Weight in the bed scale was 71.8 kg yesterday. PHYSICAL EXAMINATION: General: The patient is awake, alert, oriented x3, laying in bed, getting hemodialysis done. Head and Neck Exam: Extraocular muscles intact. Pupils equally round and reactive to light. Mucous membranes are moist. Neck is supple. There is no jugular venous distention (JVD). Cardiovascular: S1, S2, regular rate. No edema of the bilateral lower extremities. Respiratory: Chest is clear to auscultation bilaterally. Bilateral equal air entry. No rales or rhonchi. Abdomen: Soft. Positive bowel sounds. Nontender. No organomegaly. Musculoskeletal: No clubbing or cyanosis. Pulses are 2+. DIRECTOR INFORMATION: No focal deficit. Power is 5/5 in all extremities. LAB REVIEW: CBC showed a WBC of 4.8, hemoglobin of 10.6 and platelets of 151. BMP showed sodium 137, potassium 5, chloride 100, bicarb 29, BUN 48, creatinine is 8.3, phosphorus 5, and albumin is 3. CURRENT INPATIENT MEDICATIONS: The patient's medications were all reviewed by me. There is no significant change in the medications today as compared with yesterday. ASSESSMENT/PLAN: 1. End-stage renal disease. The patient is dialysis dependent. He is being dialyzed according to regular Monday, Monday, Monday schedule today. Ultrafiltration goal will be 2 liters as tolerated by blood pressure. 2. Hypertension with hypertensive heart disease in end-stage renal disease. Continue current dose of hydralazine, amlodipine and labetalol. Blood pressure is well controlled. 3. 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 Volume status is better, 2 liters of fluid will be removed. Blood pressures are well controlled. 4. Anemia in end-stage renal disease. Anemia will be managed as per outpatient regimen. Hemoglobin is within the acceptable range.
[2019-07-04] MEDS: HumaLOG INSULIN (NovoLOG) PER UNIT SC SCH (07:30)
[2019-07-04] MEDS: (RENVELA) SEVELAMER **CARBONate** 800 MG TAB PO SCH (08:37)
[2019-07-04] MEDS: MIRALAX *UNIT DOSE* 17GM PACKET PO SCH (08:38)
[2019-07-04] MEDS: SENNA 8.6 MG TAB (SENOKOT) PO SCH (08:38)
[2019-07-04] MEDS: LEVEMIR (INSULIN DETEMIR) 1 UNITS/0.01ML SQ SCH (08:38)
[2019-07-04 08:40] VITALS: BP 153/74
[2019-07-04] MEDS: **hydrALAZINE** 50 MG TAB PO SCH (08:40)
[2019-07-04] MEDS: LABETALOL 100 MG TAB PO SCH (08:41)
[2019-07-04] MEDS ORDERED: HYDR50TA PO (09:04)
[2019-07-04] MEDS ORDERED: AMLO10TA5 PO (09:04)
[2019-07-04] MEDS ORDERED: SENN18TA PO (09:04)
[2019-07-04] MEDS ORDERED: PEG1POW PO (09:04)
--- NOTE | 2019-07-04 09:07 | DS.PDOC ---
Discharge Summary General Date of Admission June 30, 2019 at 01:08 Date of Discharge 07/04/19 Discharge Summary PROCEDURES PERFORMED DURING STAY: none, HD ADMITTING DIAGNOSES: 1. HTN urgency DISCHARGE DIAGNOSES: 1. HTN urgency COMPLICATIONS/CHIEF COMPLAINT: Hypertensive Urgency. 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 Pt's anti-HTN meds were increased and sx improved. She will be dc on Amlodipine 10mg QD, Labetalol 100mg BID, Hydralazine 50mg TID. Follow-up with PCP (to be established), cardiology, and nephrology in 1 week. She had HD during hospitalization. Pt c/o LE pain and weakness, PT evaluated pt with PT exercises at home. DISCHARGE MEDICATIONS: Please see below. ALLERGIES: Please see below. PHYSICAL EXAMINATION ON DISCHARGE: VITAL SIGNS: Please see below. GENERAL: Pleasant, -Italian female in No distress HEENT: Normocephalic, atraumatic, moist mucous membranes NECK: Supple CARDIOVASCULAR EXAMINATION: S1, S2 RESPIRATORY EXAMINATION: CTAB ABDOMINAL EXAMINATION: Soft, nontender, nondistended, positive bowel sounds EXTREMITIES: trace edema SKIN: No rash NEUROLOGICAL EXAMINATION: Alert PSYCHIATRIC EXAMINATION: Calm and cooperative, appropriate affect LABORATORY DATA: Please see below. IMAGING: see below PROGNOSIS: good ACTIVITY: As tolerated. DIET: cardiac DISCHARGE PLAN: dc home with outpt f/u DISCHARGE CONDITION: Stable. TIME SPENT ON DISCHARGE: 32 minutes were spent on dc planning Vital Signs/I&Os Vital Signs Date Time Temp Pulse Resp B/P (MAP) Pulse Ox O2 Delivery O2 Flow Rate FiO2 07/04/19 08:41 81 07/04/19 08:40 153/74 07/04/19 06:00 98.8 17 95 Room Air 07/03/19 21:00 2.0 I&O- Last 24 Hours up to 6 AM 07/04/19 06:00 Intake Total 870 ml Output Total 2200 ml Balance -1330 ml Laboratory Data Labs 24H Laboratory Tests 2 07/03/19 12:57: Bedside Glucose (Misc Panel) 56L 07/03/19 13:31: Bedside Glucose (Misc Panel) 65L 07/03/19 16:34: Bedside Glucose (Misc Panel) 123H 07/03/19 20:55: Bedside Glucose (Misc Panel) 137H 07/04/19 06:03: Nucleated Red Blood Cells % (auto) 0.0, Anion Gap 8, Glomerular Filtration Rate 9.0L, Calcium Level 8.4L, Phosphorus Level 4.6, Albumin 3.0L CBC/BMP Laboratory Tests 07/04/19 06:03 FSBS Laboratory Tests Test 07/03/19 12:57 07/03/19 13:31 07/03/19 16:34 07/03/19 20:55 Range/Units Bedside Glucose (Misc Panel) 56 65 123 137 83-110 MG/DL Discharge Medications Scheduled Amlodipine Besylate (Amlodipine Besylate) 10 Mg Tablet, 10 MG PO QHS Aspirin (Aspirin) 81 Mg Tab.chew, 81 MG PO QHS, (Reported) Denosumab Injection (Prolia) 60 Mg/1 Ml Syringe, 60 MG SC EVERY SIX MONTHS, (Reported) HAD INJECTION IN JANUARY DUE IN JULY Hydralazine HCl (Hydralazine HCl) 50 Mg Tablet, 50 MG PO TID Insulin Glargine,Hum.rec.anlog (Lantus Solostar) 100 Unit/1 Ml Insuln.pen, 19 UNITS SQ BID, (Reported) Labetalol HCl (Labetalol HCl) 100 Mg Tablet, 100 MG PO BID, (Reported) Lidocaine/Prilocaine (Lidocaine-Prilocaine Cream) 2.5%/2.5% Cream..g., 1 DOSE TOP 3XW, (Reported) APPLY 1 HOUR BEFORE DIALYSIS Polyethylene Glycol 3350 (Polyethylene Glycol 3350) 17 Gm Powd.pack, 1 PKT PO DAILY Pravastatin Sodium (Pravastatin Sodium) 80 Mg Tablet, 80 MG PO QHS, (Reported) Sevelamer Carbonate (Sevelamer Carbonate) 800 Mg Tablet, 1,600 MG PO BIDWM, (Reported) Scheduled PRN Gabapentin (Gabapentin) 100 Mg Capsule, 100 MG PO QHS PRN for PAIN, (Reported) Senna (Senna Lax) 8.6 Mg Tablet, 2 TAB PO BID PRN for BOWEL CARE/CONSTIPATION Tramadol HCl (Tramadol HCl) 50 Mg Tablet, 100 MG PO BID PRN for PAIN, (Reported) Allergies Coded Allergies: [id number]-[id number] Reductase Inhibitor (Verified Allergy, Unknown, PAIN, 07/20/18) PT SAYS SHE CAN TAKE PRAVASTATIN PURNIMA BREWER MD July 04, 2019 08:57
== END 2019-07-04 11:24 | disposition home or self-care (01) | DRG 304 ==
LOC: M ED 22:40 → M ED INP 06-30 01:08 → ENRESERV 06-30 01:56 → M PCU 06-30 03:31 → M MSPAV 07-02 15:19
PROVIDERS: ADMIT Internal Medicine; ATTEND Family Medicine
PROC: 5A1D70Z Performance of Urinary Filtration, Intermittent, Less than 6 Hours Per Day (ICD-10-PCS; principal; 2019-07-01)
DX: I16.0 Hypertensive urgency (principal); N18.6 End stage renal disease; I50.43 Acute on chronic combined systolic (congestive) and diastolic (congestive) heart failure; I69.351 Hemiplegia and hemiparesis following cerebral infarction affecting right dominant side; I25.5 Ischemic cardiomyopathy; D63.1 Anemia in chronic kidney disease; I13.2 Hypertensive heart and chronic kidney disease with heart failure and with stage 5 chronic kidney disease, or end stage renal disease; E11.22 Type 2 diabetes mellitus with diabetic chronic kidney disease; E78.5 Hyperlipidemia, unspecified; Z66 Do not resuscitate; J84.10 Pulmonary fibrosis, unspecified; J47.9 Bronchiectasis, uncomplicated; I69.328 Other speech and language deficits following cerebral infarction; R47.81 Slurred speech; E11.649 Type 2 diabetes mellitus with hypoglycemia without coma; R53.1 Weakness; K59.00 Constipation, unspecified; G47.33 Obstructive sleep apnea (adult) (pediatric); Z99.2 Dependence on renal dialysis; Z95.1 Presence of aortocoronary bypass graft; Z87.891 Personal history of nicotine dependence; Z79.82 Long term (current) use of aspirin; Z79.4 Long term (current) use of insulin; Z79.899 Other long term (current) drug therapy; Z88.8 Allergy status to other drugs, medicaments and biological substances; Z91.14 Patient's other noncompliance with medication regimen

== ENCOUNTER → 2019-10-18 | Outpatient (CLI) | payer MEDICARE, BC ==
[~2019-10-18] MED LIST changes: -AMLO10TA5 PO; +AMLO1TAB24 PO; +AMLO1TAB25 PO; -AMLO5TAB6 PO; +ASPI-546 PO; -ASPI1TAB15 PO; -ASPI81TA85 PO; +ASPI81TA86 PO; +ISOVUE-300 61% 50ML VIAL As Ordered ONE; +LIDOCAINE 1% MDV 20ML VIAL As Ordered ONE; +MIDAZOLAM INJ 2MG/2ML VIAL (J2250 PER 1MG) As Ordered ONE; -PANT20TA2 PO; +PANT20TA6 PO; +PANT40TA29 PO; -PANT40TA3 PO; +PEG1POW PO; -amLODIPine 10 MG TAB PO SCH; -amLODIPine 5 MG TAB PO SCH; +fentaNYL 100 MCG/2 ML INJECTION (J3010) As Ordered ONE
[2019-10-18 17:26] VITALS: BP 170/79
--- NOTE | 2019-10-18 17:51 | ROOPDOC ---
[facility] Report Of Operation Report of Operation DATE OF PROCEDURE: 10/18/19 PREPROCEDURE DIAGNOSES: End-stage renal disease with increased swelling left upper extremity and increased bleeding from AV fistula after dialysis. POSTPROCEDURE DIAGNOSES: Same PROCEDURE: 1. Ultrasound-guided access left brachiobasilic AV fistula 2. Left upper extremity fistulogram and central venogram 3. Angioplasty left basilic vein into axillary vein with 8 x 20 cutting balloon and 9 x 80 [place] balloon 4. Angioplasty left subclavian vein and innominate vein stent with 9 x 80 [place] balloon 5. Completion venogram SURGEON: Sakina Capone MD ANESTHESIA: Local anesthesia 3 mL lidocaine. Moderate intravenous conscious sedation was administered by Dr. Capone. The patient was independently monitored by a registered nurse assigned to the Department of radiology using automated blood pressure, EKG, and pulse oximetry. The detailed sedation record is permanently stored in the hospital information system. The following is a brief sedation record: Start time 16:14, stop time 16:51, Versed 1 mg IV, fentanyl 50 g IV. CONTRAST: 21 mL Isovue-300 INDICATION FOR PROCEDURE: Ms. Acosta is a very pleasant 74-year-old patient with end-stage renal disease currently dialyzing with a left brachiobasilic AV fistula and she has experienced increased bleeding times after dialysis and increased swelling in her left upper extremity that has become increasingly uncomfortable. Risks benefits and alternatives to fistulogram potential intervention were explained to the patient and she is agreeable to proceed. Informed consent was obtained. INTERPRETATION: 1. Ultrasound was used to examine the AV anastomosis and it was found to be widely patent. 2. The basilic vein over the bicep is widely patent with no areas of stenosis. However, there is an 80% stenosis where the basilic vein resumes its normal anatomical course leading into the axillary vein. The axillary vein is widely patent, but the subclavian vein has a 90% stenosis at the thoracic outlet. There is also about 30-40% stenosis within the innominate vein stent placed by another provider. 3. After angioplasty of the basilic vein and the axillary vein with a 9 x 80 [place] balloon, unfortunately there is still significant residual stenosis of about 40%. However, after angioplasty with an 8 x 20 cutting balloon, there was no significant residual stenosis and there is widely patent inflow through the basilic vein into the axillary vein. No extravasation was noted. 4. After angioplasty of the subclavian vein through the thoracic outlet the first time, there was still 30% residual stenosis, but a second three-minute angioplasty provided widely patent inflow through the subclavian vein. There is also widely patent inflow through the innominate vein after angioplasty through the stent and beyond. There was rapid in-line flow back to the central system. No extravasation was noted. REPORT OF OPERATION: The patient was brought to the angiographic suite in stable condition. Her left upper extremity was prepped and draped in a sterile fashion. A timeout was performed. Local anesthesia was administered to the skin and subcutaneous tissue over the left basilic vein near the AV anastomosis. Ultrasound was used to examine the AV anastomosis and found to be widely patent. We then used ultrasound to access the basilic vein with a microneedle and a wire was passed through this access and the needle was removed. A 4 Polish sheath was placed and flushed with saline. A fistulogram and central venogram were performed. Please see interpretation above. Next, a Glidewire was advanced carefully through the areas of stenosis into the central system under fluoroscopic guidance. The sheath was exchanged for some Polish sheath and flushed with saline. A 9 x 80 [place] balloon was advanced across the innominate artery and a three-minute inflations was performed. Good inflow through the artery was noted with minimal residual stenosis. No extravasation was noted. We then angioplasty multiple times across the subclavian artery due to significant stenosis at thoracic outlet. After multiple angioplasties, there is no significant residual stenosis in widely patent inflow through this to the central system with no extravasation. The balloon was then retracted into the axillary vein performed, but the stenosis was resistant to angioplasty. There was still significant multiple angioplasties. We therefore exchanged the wire for an O1 8 wire and then removed the balloon and exchanged for an 8 x 20 cutting balloon. We use the cutting balloon along the proximal basilic vein and the distal axillary vein and following this, there was widely patent flow with no significant residual stenosis and no extravasation noted. There was an excellent thrill and the fistula at the end of the case. Local anesthesia was administered around the sheath and a [id number] Prolene suture was secured upon removal of the sheath. Good hemostasis was noted. Sterile dressings were applied and the patient was taken to recovery in stable condition. She tolerated the procedure and the sedation well. ESTIMATED BLOOD LOSS: Approximately 2 mL. COMPLICATIONS: None. PLAN: It is okay to use the fistula for dialysis tomorrow. It is okay to remove the dressings tomorrow. We will monitor the patient here for 30 minutes and then she will be discharged home if she is stable with no bleeding or bruising. We will plan to see her back in a few months for another fistulogram if her swelling and increased bleeding times occur again. Unfortunately, the areas where she has stenosis are often recurrent, we will monitor her for signs that she is becoming stenotic again. The patient was extensively counseled and all questions were answered. We appreciate the opportunity to participate in the care of this patient. SAKINA CAPONE MD Oct 18, 2019 17:51
== END ==
LOC: M IRPRO 15:22
PROVIDERS: ATTEND Surgery Vascular Surgery
DX: T82.590A Other mechanical complication of surgically created arteriovenous fistula, initial encounter (principal); N18.6 End stage renal disease; X58.XXXA Exposure to other specified factors, initial encounter
CPT/HCPCS: 36902; 36907; 99152; 99153; C1725; C1769; C1894; J1644; J2250; J3010; Q9967

== ENCOUNTER → 2019-10-22 | Outpatient (CLI) | payer MEDICARE, BC ==
[~2019-10-22] MED LIST changes: -ISOVUE-300 61% 50ML VIAL As Ordered ONE; -LIDOCAINE 1% MDV 20ML VIAL As Ordered ONE; -MIDAZOLAM INJ 2MG/2ML VIAL (J2250 PER 1MG) As Ordered ONE; -fentaNYL 100 MCG/2 ML INJECTION (J3010) As Ordered ONE
[2019-10-22 11:05] LABS: BASO % 0.4 % (0.0-1.0); EOS # 0.1 10^3/uL (0.0-0.5); EOS % 1.9 % (0.0-3.0); HEMATOCRIT 36.8 % (36.0-47.0); HEMOGLOBIN 11.2 g/dl (12.0-15.5); LYMPH # 0.6 10^3/uL (1.5-5.0); LYMPH % 11.7 % (24.0-44.0); MEAN CORPUSCULAR HEMOGLOBIN 27.3 pg (27.0-33.0); MEAN CORPUSCULAR HGB CONC 30.4 g/dl (32.0-36.5); MEAN CORPUSCULAR VOLUME 89.8 fl (80.0-96.0); MONO # 0.5 10^3/uL (0.0-0.8); MONO % 9.8 % (0.0-5.0); NEUTROPHILS % 75.8 % (36.0-66.0); PLATELET COUNT, AUTOMATED 121 10^3/uL (150-450); WHITE BLOOD COUNT 5.2 10^3/uL (4.0-10.0)
[2019-10-22 11:28] LABS: ALBUMIN 3.4 GM/DL (3.2-5.2); BILIRUBIN,TOTAL 0.4 MG/DL (0.2-1.0); CALCIUM LEVEL 8.2 MG/DL (8.8-10.2); CHOLESTEROL RISK RATIO 3.875 (<5); CREATININE FOR GFR 7.83 MG/DL (0.55-1.30); GLOMERULAR FILTRATION RATE 6.5 (>39); TOTAL PROTEIN 7.3 GM/DL (6.4-8.2)
== END ==
LOC: M LAB 09:44
PROVIDERS: ATTEND Internal Medicine
DX: E11.9 Type 2 diabetes mellitus without complications (principal)

== ENCOUNTER → 2020-01-21 | Outpatient (CLI) | payer MEDICARE, BC ==
[~2020-01-21] MED LIST changes: +CALC600T60 PO; +COEN100T PO; +HYDR12.55 PO; +ISOVUE-300 61% 50ML VIAL As Ordered ONE; +LIDOCAINE 1% MDV 20ML VIAL As Ordered ONE; +MIDAZOLAM INJ 2MG/2ML VIAL (J2250 PER 1MG) As Ordered ONE; +NORV5TAB PO; +PRAV40TA2 PO; +fentaNYL 100 MCG/2 ML INJECTION (J3010) As Ordered ONE
[2020-01-21 14:37] VITALS: BP 166/79
--- NOTE | 2020-01-21 15:28 | ROOPDOC ---
[facility] Report Of Operation Report of Operation DATE OF PROCEDURE: 01/21/20 PREPROCEDURE DIAGNOSES: Renal failure with increased swelling left upper extremity and increased bleeding times with dialysis POSTPROCEDURE DIAGNOSES: Same PROCEDURE: 1. Ultrasound-guided access left basilic vein 2. Left upper extremity fistulogram and central venogram 3. Angioplasty left proximal basilic vein and left subclavian vein at the thoracic outlet with 8 x 20 cutting balloon and 10 x 40 [place] balloon 4. Completion venograms SURGEON: Sakina Capone MD ANESTHESIA: Local anesthesia 10 mL lidocaine. Moderate intravenous conscious sedation was administered by Dr. Capone. The patient was independently monitored by registered nurse sign of the department of radiology using automated blood pressure, EKG, and pulse oximetry. The detailed sedation record is permanently stored in the hospital information system. The following is a brief sedation record: Start time 12:59, stop time 13:27, Versed 1.5 mg IV, fentanyl 75 g IV. INDICATION FOR PROCEDURE: This is a very pleasant 75-year-old patient with end- stage renal disease currently dialyzing with a left brachial basilic AV fistula. She's had increased bleeding times with dialysis, and increased swelling in her left upper extremity. Risks benefits and alternatives to a left upper x-ray fistulogram potential intervention were explained to the patient she is agreeable to proceed. Informed consent was obtained. INTERPRETATION: 1. Ultrasound was used to examine the AV anastomosis and it was noted to be widely patent. 2. Fistulogram of left upper extremity revealed the basilic vein to be widely patent over the biceps but proximally 80% stenotic where returns to its normal anatomic lie in the upper arm, no stenosis in the axillary outflow, 80% stenosis in the subclavian vein at the thoracic outlet but widely patent distal to this and widely patent stent in the innominate vein with good flow back to the heart. 3. After angioplasty of the proximal basilic vein, there is still some residual stenosis and a repeat angioplasty with a 10 x 40 [place] balloon was performed. Following this there was widely patent inflow through the area with less than 20% residual stenosis. No extravasation noted. 4. After angioplasty of the subclavian vein on the left at the thoracic outlet for three-minute inflations, there is widely patent flow with less than 20% residual stenosis. No extravasation noted. REPORT OF OPERATION: The patient was brought to the angiographic suite in stable condition. Her left upper extremity was prepped and draped in a sterile fashion. A timeout was performed. Local anesthesia was administered to skin and subcutaneous tissue over the basilic vein near the AV anastomosis. Ultrasound was used to examine the AV anastomosis and it was noted to be widely patent with no stenosis. Ultrasound was then used to gain access to the basilic vein with a microneedle and a wire was passed through this access under fluoroscopic guidance. A 4 [place] sheath was placed and flushed with saline. A fistulogram and central venogram were performed. Please see interpretation above. We then advanced a Glidewire through the access and exchange the sheath percent [place] sheath and flushed the sheath was saline. Sedation was administered without complication. The wire was exchanged for 018 wire and an 8 x 20 cutting balloon was used to angioplasty the proximal left basilic vein and the left subclavian vein multiple times across areas of heavy stenosis. Quick venograms confirm there was no extravasation after this initial angioplasty. We then exchange the balloon over the wire for a 10 x 40 [place] balloon and three-minute inflations across both areas were performed. Following this there was still some residual stenosis at the proximal basilic vein, but no significant residual stenosis at the subclavian vein at the thoracic outlet. We then did a second three-minute angioplasty across the basilic vein proximally, and following this there was less than 20% residual stenosis in both areas with a marked improvement in thrill, no pulsatility left in the fistula, and rapid flow back to the heart. We placed a [id number] Prolene stitch at the sheath exit site removed the sheath. Pressure was held and sterile dressings were applied. The patient was then taken to recovery in stable condition. She tolerated the procedure and the sedation well. ESTIMATED BLOOD LOSS: Approximately 3 mL. COMPLICATIONS: None. PLAN: It is okay to use the fistula for dialysis. Elevate the arm to continue to help remove swelling, although improving the central outflow should help as well. Okay to resume home diet medications. We appreciate the opportunity to participate in the care of this patient. SAKINA CAPONE MD Jan 21, 2020 15:28
== END ==
LOC: M IRPRO 11:38
PROVIDERS: ATTEND Surgery Vascular Surgery
DX: T82.590A Other mechanical complication of surgically created arteriovenous fistula, initial encounter (principal); N18.6 End stage renal disease; X58.XXXA Exposure to other specified factors, initial encounter
CPT/HCPCS: 36902; 36907; 99152; 99153; C1725; C1769; C1894; J1644; J2250; J3010; Q9967

== ENCOUNTER → 2020-01-28 | Outpatient (CLI) | payer MEDICARE, BC ==
[~2020-01-28] MED LIST changes: +hydrALAZINE 20MG/ML 1ML VIAL (J0360 PER 20MG) As Ordered ONE
--- NOTE | 2020-01-28 10:07 | ROOPDOC ---
[facility] Report Of Operation Report of Operation DATE OF PROCEDURE: 01/28/20 PREPROCEDURE DIAGNOSES: Atherosclerosis of the [place] arteries with claudication POSTPROCEDURE DIAGNOSES: Same PROCEDURE: 1. Ultrasound-guided access left common femoral artery 2. Aortoiliofemoral arteriogram 3. Selection right common femoral and superficial femoral artery with right lower extremity runoff 4. Selection distal right posterior tibial artery with arteriogram 5. Selection right plantar artery with arteriogram 6. Selection right peroneal artery with arteriogram 7. Cross chronic total occlusion left posterior tibial artery and plantar artery and angioplasty with a 3 x 220 Naveed balloon and a 2 x 100 Naveed balloon 8. Attempt to cross chronic total occlusion distal right peroneal artery, aborted 9. Angioplasty proximal right peroneal artery with 3 x 2 20 Naveed balloon 10. Angioplasty proximal right anterior tibial artery with 3 x 2 20 Naveed balloon 11. Angioplasty right popliteal artery with 4 x 200 [place] balloon and 5 x 200 [place] balloon 12. Completion arteriograms 13. Mynx closure left common femoral artery SURGEON: Sakina Capone MD ANESTHESIA: Local anesthesia 8 mL lidocaine. Moderate intravenous conscious sedation was supervised by Dr. Capone. The patient was independently monitored by registered nurse assigned to the Department of radiology using automated blood pressure, EKG, and pulse oximetry. The details sedation record is permanently stored in the hospital information system. The following is a brief sedation record: Start time 08:03, stop time 09:44, Versed 2 mg IV, fentanyl 75 g IV, heparin 4500 units IV. CONTRAST: 51 mL Isovue-300 INDICATION FOR PROCEDURE: This very pleasant 75-year-old patient with known atherosclerosis of the [place] arteries and a history of claudication that has progressively gotten worse, right leg greater than left, who has had interventions on her lower extremities in the past by another provider. She presents today for an arteriogram and potential intervention on the right lower extremity. Risks benefits and alternatives were explained to the patient is a greeable to proceed. Informed consent was obtained. INTERPRETATION: 1. The distal aorta and iliac segments are heavily calcified and ectatic, but no focal flow-limiting stenoses as noted. Overall the bilateral common iliac arteries, hypogastric's, and external iliac arteries have good inflow through to the femoral systems bilaterally. 2. The right common femoral artery his calcified but patent with good runoff into the profunda in the proximal SFA. The mid distal SFA is heavily calcified with some areas of 20-30% stenosis, but these are focal and do not appear to be flow-limiting at this time. 3. The right popliteal artery is heavily calcified with several areas of focal stenosis ranging from 40-90%. This is throughout the proximal mid and distal. The areas of high stenosis or in the proximal and distal popliteal. 4. The anterior tibial artery is the main runoff to the right foot with good flow through the dorsal pedis artery. There are 2 areas of focal stenosis in the proximal anterior tibial artery of 50 and 70%. Other than that, the vessels calcified but widely patent. The tibioperoneal trunk is nearly occluded throughout its length, with minimal proximal posterior tibial and peroneal artery flow noted. No significant distal reconstitution is noted although there is a little retrograde flow in the distal peroneal artery from the distal anterior tibial artery collaterals. 5. After angioplasty of the popliteal artery with a 4 x 100 [place] balloon, there was still significant stenoses noted and weeks change the balloon for 5 x 200 [place] balloon in order to try and give better patency. Following this, after three-minute inflations, we had a much improved flow through the popliteal artery, minimal dissection at the areas of heaviest stenosis that did not appear flow-limiting, no extravasation or embolization noted. 6. After crossing the posterior tibial artery and plantar artery and angioplasty for three-minute inflations along the length of the vessels and repeated angioplasties, we did have antegrade flow through the posterior tibial artery all the way to the foot, but it is a bit sluggish compared to the anterior tibial artery. There is significant microcirculation occlusion along the posterior tibial artery and medial plantar distribution. 7. After attempts to cross through the chronic total occlusion in the mid peroneal artery to get distally, we had a small amount of extravasation in the mid calf. I did not feel it was safe to continue to try to cross year, so we angioplasty the proximal vessels to improve flow through the collaterals at the proximal peroneal artery, and held pressure on the cath for 4 minutes and following this no extravasation was noted and improve flow through the proximal peroneal artery was noted. 8. After angioplasty of the proximal anterior tibial artery, there is widely patent flow with less than 20% residual stenosis, no dissection no extravasation. Final three-vessel imaging showed good flow through the proximal tibials, sluggish flow to the foot through the posterior tibial artery and plantar artery, and rapid flow through the anterior tibial artery and dorsal pedis artery which also collateralizes to the distal peroneal artery and the rest of the foot. REPORT OF OPERATION: Patient was brought to the angiographic suite in stable c ondition. Her bilateral groins were prepped and draped in sterile fashion. A timeout was performed. Sedation was administered without complication. Local anesthesia was administered to the skin and subcutaneous tissue over the left groin. A microneedle was used to access left common femoral artery under ultrasound guidance. A wire was passed to this access needle was removed. A 4 F rench sheath was placed and flushed with saline. A Glidewire and flushing catheter were advanced into the distal aorta under fluoroscopic guidance. Aortoiliofemoral arteriograms were performed. Please see interpretation above. We then utilized a Glidewire and flushing catheter to go up and over the bifurcation and selective right common femoral artery and superficial femoral artery. Right lower extremity runoff was performed. Please see to interpretation above. We then navigated the Glidewire to the distal superficial femoral artery and exchange the sheath for 6 x 45 cm destination sheath and flushed sheath with saline. We then navigated the wire carefully through the popliteal artery near occlusions and angioplastied first with a 4 x 200 [place] balloon for three- minute inflations. Following this I felt there was still rate limiting stenoses, mild dissections that would be better treated with a slightly larger balloon, so exchange the balloon for 5 x 200 [place] balloon another three-minute inflations was performed. After this, there was widely patent flow with dissections of the areas of heaviest stenosis that were very mild and not flow-limiting. I did not feel a stent was warranted at this time. We then exchanged wire for an O18 Glidewire advantage and a [place] catheter and uses to carefully cross through the occlusion the posterior tibial artery. This took a bit of time. Eventually we were able to get the wire to the ankle safely, and quit contrast injection confirmed we were in the true lumen. We noted little pedal outflow at that time. We then passed a 3 x 220 [place] balloon, but could only pass it through the proximal vessel. An angioplasty in this area was performed and then we were able to advance the balloon another few centimeters. We continued with inflation and deflation to advance the balloon all the way to the ankle. Eventually three- minute inflations were performed along the length of the vessel. We still do not have great outflow into the foot and we eventually were able to cross safely into the plantar arch and we angioplasty with a 2 x 100 Naveed balloon. After multiple three-minute inflations, we still noted severe microvascular disease in the plantars distribution, but there was definitely improved antegrade flow through the posterior tibial artery. We then attempted to cross the total occlusion and the peroneal artery in a similar fashion. Unfortunately, I did not feel the wire was passing in the true lumen, as it seemed to want to select small collaterals at the area of heaviest occlusion. A quit contrast injection confirmed that we were outside of the true lumen of the vessel and a small amount of extravasation was noted. Unfortunately, I do not feel I could safely cross due to the heavy calcified plaque at this occlusion, and I did not want to create further extravasation, so we angioplastied the proximal aspect of the vessel with pressure on the cath simultaneously. After three-minute inflations there was still small amount of extravasation we repeated this procedure. After that, there is widely patent flow proximal and the vessel, with good outflow through the collaterals, but no extravasation noted. Next, we navigated the wire with the help of a glide cath into the proximal anterior tibial artery and a 3 x 220 Naveed balloon was used angioplasty the proximal aspect of the vessel for three-minute inflations. Following this, there is widely patent flow through the anterior tibial artery all the way to the distal foot, with good retrograde flow into the peroneal from collaterals at the ankle. There is also good antegrade flow through the posterior tibial artery although it is somewhat more sluggish than the anterior tibial artery. This is not unexpected as pedal circulation is better in the distribution of the dorsal pedis artery and more chronically occluded along the medial foot. This concluded the procedure. We exchanged the sheath for short 6 Tajik sheath over a Glidewire and applied a Mynx closure device under fluoroscopic guidance. Good hemostasis was noted. Pressure was held for 10 minutes and sterile dressings were applied. The patient was taken to recovery in stable condition. She tolerated the sedation in the procedure well. ESTIMATED BLOOD LOSS: Approximately 4 mL. COMPLICATIONS: None. PLAN: We will see the patient back in 1 week to check her groin access site in her perfusion. It's okay to resume home diet medications. No strenuous exercise or lifting greater than 5 pounds for 72 hours. We appreciate the opportunity to participate in the care of this patient. SAKINA CAPONE MD Jan 28, 2020 10:07
[2020-01-28 13:40] VITALS: BP 160/76
== END ==
LOC: M IRPRO 06:18
PROVIDERS: ATTEND Surgery Vascular Surgery
DX: I70.211 Atherosclerosis of native arteries of extremities with intermittent claudication, right leg (principal); I70.92 Chronic total occlusion of artery of the extremities; I13.2 Hypertensive heart and chronic kidney disease with heart failure and with stage 5 chronic kidney disease, or end stage renal disease; E03.9 Hypothyroidism, unspecified; E11.22 Type 2 diabetes mellitus with diabetic chronic kidney disease; E78.00 Pure hypercholesterolemia, unspecified; F90.9 Attention-deficit hyperactivity disorder, unspecified type; I25.10 Atherosclerotic heart disease of native coronary artery without angina pectoris; I50.9 Heart failure, unspecified; Z79.82 Long term (current) use of aspirin; Z87.891 Personal history of nicotine dependence; Z88.8 Allergy status to other drugs, medicaments and biological substances; Z99.2 Dependence on renal dialysis
CPT/HCPCS: 37224; 37228; 37232; 75710; 99152; 99153; C1725; C1729; C1760; C1769; C1887; C1894; J1644; J2250; J3010; Q9967

== ENCOUNTER 2020-02-26 11:23 | Emergency (ER) | payer MEDICARE, BC ==
[~2020-02-26] VITALS: Ht 165.1 cm; Wt 66.8 kg
[~2020-02-26 11:23] MED LIST changes: -ISOVUE-300 61% 50ML VIAL As Ordered ONE; +LANTINJ4 SC; -LANTINJ4 SQ; -LIDOCAINE 1% MDV 20ML VIAL As Ordered ONE; -MIDAZOLAM INJ 2MG/2ML VIAL (J2250 PER 1MG) As Ordered ONE; -fentaNYL 100 MCG/2 ML INJECTION (J3010) As Ordered ONE; -hydrALAZINE 20MG/ML 1ML VIAL (J0360 PER 20MG) As Ordered ONE
--- NOTE | 2020-02-26 12:09 | REP ---
INDICATION: fall/head injury COMPARISON: 02/10/2020 TECHNIQUE: Axial noncontrast images from the skull base to the thoracic inlet with coronal reformations. This CT examination was performed using the following dose reduction techniques: Automated exposure control, adjustment of mA and/or kv according to the patient's size, and use of iterative reconstruction technique. FINDINGS: Age-related atrophy and microvascular ischemic changes are appreciated. The ventricles and sulci are symmetric. Tripp-white differentiation is maintained. There is no evidence for acute intracranial hemorrhage, mass/mass effect, pathology or infarction. No extra-axial fluid collection. Calvarium is intact. Paranasal sinuses and mastoid air cells are clear. IMPRESSION: Age related atrophy and microvascular ischemic changes. No acute intracranial hemorrhage, infarction, or mass/mass effect. <Electronically signed by Joni Dumont > 02/26/20 [id number]
[2020-02-26] MEDS ORDERED: LABETALOL 100MG/20ML VIAL IV STA ×2 (12:17→13:45)
--- NOTE | 2020-02-26 12:46 | REP ---
INDICATION: fall. COMPARISON: Comparison study February 10, 2020.. TECHNIQUE: Helical scanning is acquired and overlapping 2 mm high resolution axial images were generated and reviewed at bone and soft tissue window settings. Coronal and sagittal multiplanar re-formations images are generated. FINDINGS: There is slight straightening of the normal cervical lordosis. Fairly advanced degenerative spondylosis changes are noted with degenerative disc changes most pronounced at C5-6 C6-7 and C7-T1. There is a degenerative 3 mm anterior subluxation of C7 on T1 and unchanged from the prior study. There is cystic change in the superior aspect of the T1 vertebral body and to a lesser extent at the inferior aspect of C7. Posterior osteophytic ridging is observed at C5-6 as before. No fracture or collapse is seen. Pleural fluid is visible in the apex of the left chest consistent with small to moderate left pleural effusion. IMPRESSION: No fracture seen. Advanced degenerative spondylosis changes again noted including a stable degenerative C7-T1 3 mm spondylolisthesis. Small to moderate left pleural effusion noted at the apex of the left lung. No acute traumatic abnormality noted.. <Electronically signed by Bridger Moreno > 02/26/20 [id number]
--- NOTE | 2020-02-26 12:51 | REP ---
INDICATION: fall COMPARISON: None. TECHNIQUE: AP and lateral views of the right tibia/fibula. FINDINGS: Age-related osteopenia and degenerative changes are noted. No obvious acute fracture or dislocation. Peripheral vascular disease identified. No subcutaneous emphysema. IMPRESSION: Degenerative changes.. No acute fracture or dislocation. <Electronically signed by Joni Dumont > 02/26/20 [id number]
--- NOTE | 2020-02-26 12:59 | REP ---
INDICATION: fall COMPARISON: None. TECHNIQUE: Internal rotation, external rotation, and Y view. FINDINGS: Age-related osteopenia and degenerative changes are appreciated including cortical irregularity at the acromioclavicular joint. The subacromial space is normal. No periarticular calcifications are identified. No acute fracture or dislocation. IMPRESSION: Age-related changes. No acute fracture or dislocation. <Electronically signed by Joni Dumont > 02/26/20 [id number]
--- NOTE | 2020-02-26 13:00 | REP ---
INDICATION: fall COMPARISON: None. TECHNIQUE: AP, lateral views of the right forearm FINDINGS: Generalized age-related changes are appreciated. No acute fracture or dislocation identified. No subcutaneous emphysema or foreign body. IMPRESSION: . No acute fracture or dislocation. <Electronically signed by Joni Dumont > 02/26/20 [id number]
[2020-02-26 13:18] LABS: BASO % 0.2 % (0.0-1.0); EOS # 0.1 10^3/uL (0.0-0.5); EOS % 2.9 % (0.0-3.0); HEMATOCRIT 35.9 % (36.0-47.0); HEMOGLOBIN 10.2 g/dl (12.0-15.5); LYMPH # 0.6 10^3/uL (1.5-5.0); LYMPH % 15.1 % (24.0-44.0); MEAN CORPUSCULAR HEMOGLOBIN 25.5 pg (27.0-33.0); MEAN CORPUSCULAR HGB CONC 28.4 g/dl (32.0-36.5); MEAN CORPUSCULAR VOLUME 89.8 fl (80.0-96.0); MONO # 0.4 10^3/uL (0.0-0.8); NEUTROPHILS # 2.9 10^3/uL (1.5-8.5); NEUTROPHILS % 71.6 % (36.0-66.0); PLATELET COUNT, AUTOMATED 106 10^3/uL (150-450); WHITE BLOOD COUNT 4.1 10^3/uL (4.0-10.0)
[2020-02-26 13:51] LABS: ALBUMIN 3.3 GM/DL (3.2-5.2); BILIRUBIN,DIRECT 0.1 MG/DL (0.0-0.2); BILIRUBIN,TOTAL 0.5 MG/DL (0.2-1.0); CALCIUM LEVEL 8.8 MG/DL (8.8-10.2); CK-MB VALUE MASS 1.8 NG/ML (<3.6); CREATININE FOR GFR 7.39 MG/DL (0.55-1.30); MB/CK RELATIVE INDEX 1.64 (< OR =4); POTASSIUM SERUM 4.3 MEQ/L (3.5-5.1); TOTAL PROTEIN 6.7 GM/DL (6.4-8.2); TROPONIN I 0.03 NG/ML (< 0.10)
[2020-02-26 14:04] VITALS: BP 201/93
[2020-02-26 15:31] VITALS: BP 149/87
--- NOTE | 2020-02-27 07:00 | ED PDOC ---
Post-Departure Follow-Up radiology rpeort faxed to Juana Yang MD Feb 27, 2020 07:00
--- NOTE | 2020-02-27 13:30 | ECGEPIP ---
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
== END 2020-02-26 16:06 | disposition home or self-care (01) ==
LOC: M ED 11:23
DX: I10 Essential (primary) hypertension (principal); T14.8XXA Other injury of unspecified body region, initial encounter; W18.39XA Other fall on same level, initial encounter; Y92.018 Other place in single-family (private) house as the place of occurrence of the external cause; E11.9 Type 2 diabetes mellitus without complications; Z79.899 Other long term (current) drug therapy; Z79.82 Long term (current) use of aspirin; Z79.4 Long term (current) use of insulin; Z88.8 Allergy status to other drugs, medicaments and biological substances; Z87.891 Personal history of nicotine dependence

== ENCOUNTER 2020-03-02 16:03 | Inpatient (IN) | payer MEDICARE, BC ==
[~2020-03-02] VITALS: Ht 165.1 cm; Wt 67.0 kg
--- NOTE | 2020-03-02 16:58 | REP ---
INDICATION: CVA. COMPARISON: Comparison chest x-ray June 29, 2019. TECHNIQUE: The. FINDINGS: Patient is status post prior median sternotomy. Cardiomegaly is observed unchanged. There is a vascular stent graft in the position and orientation of the brachiocephalic vein. These findings are unchanged. There is blunting of the left lateral pleural angle and some pleural thickening is seen along the left lateral chest wall consistent with small left effusion. A small amount of right effusion is suspected as well. Increased lung markings are present at the bases bilaterally, bibasilar infiltrate versus pulmonary edema changes. Some vascular congestion is present as well.. IMPRESSION: CHF pattern with small effusions and bibasilar opacities. Infiltrate versus pulmonary edema. Prior median sternotomy and mediastinal vascular grafting.. <Electronically signed by Bridger Moreno > 03/02/20 [id number]
[2020-03-02 17:18] LABS: BASO % 0.7 % (0.0-1.0); EOS # 0.1 10^3/uL (0.0-0.5); HEMATOCRIT 35.6 % (36.0-47.0); HEMOGLOBIN 10.3 g/dl (12.0-15.5); LYMPH # 0.8 10^3/uL (1.5-5.0); MEAN CORPUSCULAR HEMOGLOBIN 25.5 pg (27.0-33.0); MEAN CORPUSCULAR HGB CONC 28.9 g/dl (32.0-36.5); MEAN CORPUSCULAR VOLUME 88.1 fl (80.0-96.0); MONO # 0.3 10^3/uL (0.0-0.8); MONO % 4.8 % (0.0-5.0); NEUTROPHILS # 4.6 10^3/uL (1.5-8.5); PLATELET COUNT, AUTOMATED 125 10^3/uL (150-450); RED BLOOD COUNT 4.04 10^6/uL (4.00-5.40); WHITE BLOOD COUNT 5.8 10^3/uL (4.0-10.0)
[2020-03-02 17:35] LABS: INR 1.11; PROTHROMBIN TIME 14.5 SECONDS (12.5-14.3)
[2020-03-02 17:36] LABS: PARTIAL THROMBOPLASTIN TIME 46.3 SECONDS (24.2-38.5)
--- NOTE | 2020-03-02 18:01 | REPVR ---
PROCEDURE INFORMATION: Exam: CT Head Without Contrast Exam date and time: 03/02/2020 4:19 PM Age: 75 years old Clinical indication: Other: Weakness TECHNIQUE: Imaging protocol: Computed tomography of the head without contrast. Radiation optimization: All CT scans at this facility use at least one of these dose optimization techniques: automated exposure control; mA and/or kV adjustment per patient size (includes targeted exams where dose is matched to clinical indication); or iterative reconstruction. COMPARISON: CT Head without contrast 02/26/2020 11:55 AM FINDINGS: Brain: There is mild age related parenchymal volume loss. Mild white matter changes are demonstrated in the white matter consistent with age related small vessel ischemic changes. Cerebral ventricles: The degree of ventricular dilatation is normal for age and/or degree of atrophy present. Bones/joints: Unremarkable. No acute fracture. Paranasal sinuses: Visualized sinuses are unremarkable. No fluid levels. Mastoid air cells: Visualized mastoid air cells are well aerated. Vasculature: Atherosclerotic calcifications are demonstrated in the intracranial carotid arteries bilaterally as well as in the vertebral basilar system. Soft tissues: Unremarkable. IMPRESSION: 1. There is mild age related parenchymal volume loss. Mild white matter changes are demonstrated in the white matter consistent with age related small vessel ischemic changes. 2. The degree of ventricular dilatation is normal for age and/or degree of atrophy present. 3. No acute intracranial abnormality. No interval change. Electronically signed by: Jhonatan Sanchez On 03/02/2020 18:01:39 PM
[2020-03-02 18:12] LABS: ACETAMINOPHEN LEVEL < 2.0 UG/ML (10.0-30.0); ALBUMIN 3.7 GM/DL (3.2-5.2); ALT/SGPT 31 U/L (12-78); BILIRUBIN,DIRECT 0.2 MG/DL (0.0-0.2); BILIRUBIN,TOTAL 0.6 MG/DL (0.2-1.0); CK-MB VALUE MASS 2.5 NG/ML (<3.6); CPK CREATINE PHOSPHOKINASE 244 U/L (26-192); ETHYL ALCOHOL (ETHANOL) < 0.003 % (0.000-0.010); MB/CK RELATIVE INDEX 1.02 (< OR =4); SALICYLATE LEVEL < 1.7 MG/DL (5.0-30.0); TOTAL PROTEIN 7.8 GM/DL (6.4-8.2); TROPONIN I 0.04 NG/ML (< 0.10)
[2020-03-02] MEDS ORDERED: hydrALAZINE 20MG/ML 1ML VIAL (J0360 PER 20MG) IV ONE (19:45)
[2020-03-02] MEDS ORDERED: ACETAMINOPHEN TAB 650MG DOSE (2X325MG) PO PRN (21:45)
[2020-03-02] MEDS ORDERED: MAALOX 30 ML SUSP *UDC PO PRN (21:45)
[2020-03-02] MEDS ORDERED: MOM 30ML SUSPENSION UDC PO PRN (21:45)
[2020-03-02] MEDS ORDERED: AMLO1TAB25 PO (21:47)
[2020-03-02] MEDS ORDERED: CARV12.5 PO (21:47)
--- NOTE | 2020-03-02 22:00 | HPEPDOC ---
General Date of Admission Mar 02, 2020 at 21:11 Date of Service: Mar 02, 2020 Attending Physician: LEOLA RICKETTS MD Chief Complaint The patient is a 75-year-old female admitted with a reason for visit of Alterd Mental Status/Hypertensive Emergency. History of Present Illness History of present illness: 75 year old female patient was brought to the ED from dialysis unit as she was confused and hypertensive. The ED her initial blood pressure was 2 33/100 mmHg. When I went to see her she wasn't able to answer any of the questions as she is confused/altered and was not conversant. Her Mr. Doyle was given a call to obtain more history. He reports was confused since couple of weeks and was getting worse gradually, she was confused and loses her chain of thought while talking. He reported she was having blank stare episodes and when I asked what is going on she would respond saying nothing. He also reports she having multiple falls and about 2 days ago s he did hit her head when she fell. He denied she having any nausea, vomiting, fever. She did complain at home on and off headaches, body pains. 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 Denied alcohol or illicit drug use Lives at home with . REVIEW OF SYSTEMS: Could not obtain as patient was not conversant. PHYSICAL EXAMINATION: Limited physical exam as patient was not following commands and nonconversant. General: Patient is awake, laying in bed , no apparent distress. Eyes: Conjunctiva yellow, pupils are pinpoint, Fundus: not visualized. Cardiovascular: S1, S2, normal rhythm, no murmur. Respiratory: Patient was not taking deep breaths. Could hear breath sounds in the upper lobes, couldn't appreciate much as patient was uncooperative. Abdomen: Soft, bowel sounds positive, nontender on palpation. Extremities: No clubbing or cyanosis. No edema, no tenderness. She has a dialysis fistula in her left arm. 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 Could not do complete neuro exam as patient was not following commands. Motor: patient moves all extremities. Imaging: CT head without contrast on 03/02/2020: Reported as 1. There is mild age related parenchymal volume loss. Mild white matter changes are demonstrated in the white matter consistent with age related small vessel ischemic changes. 2. The degree of ventricular dilatation is normal for age and/or degree of atrophy present. 3. No acute intracranial abnormality. No interval change Chest x-ray on 03/02/2020: Reported as CHF pattern with small effusions and bibasilar opacities. Infiltrate versus pulmonary edema. Prior median sternotomy and mediastinal vascular grafting. Impression: 75-year-old female patient who was brought in from the dialysis after she was found confused and high blood pressure. In the ED her blood pressure was 233/100 mmHg. He has an extensive past medical history in the medical records. She was nonconversant and couldn't obtain any of the history from her. Hospitalist team was contacted for further management. She was given 1 dose of IV hydralazine to control her blood pressure which brought it down to 160s systolic, 90s diastolic. - Her med rec was not confirmed so at this point we are only giving home hypertensive medications but could not confirm whether she is taking them or not. was contacted by pharmacy and could not confirm the Med rec.Tomorrow morning hospital pharmacy will contact her pharmacy to see what medications she was taking confirm the med record. Plan: Hypertensive urgency: - Her highest blood pressure recorded in the ED was 268/ 138 mmHg came down to 1 68 /100 after a dose of IV hydralazine. - Start her on amlodipine 10 mg daily, hydralazine 50 mg 3 times a day, carvedilol 12.5 twice a day. The hold parameters <160 systolic. - Keep her on 2 g sodium diet. - Monitor her on telemetry. - Given her altered mental status will get an MRI brain to rule out ischemic stroke. CHF exacerbation: - Chest x-ray showing CHF pattern and small pleural effusion. - Will monitor her overnight. - Last echo on record was on 06/07/2017, reported LVEF of 35-40%. Left Ventricular diastolic dysfunction grade 1. - Exam her tomorrow and if needed will start her on Lasix. End stage renal disease on dialysis: - Patient is a dialysis patient with end-stage renal disease on Monday schedule of dialysis . - Will place a nephro consult for dialysis. DVT prophylaxis: - Heparin subcutaneous. As med rec is not complete Will try to get her complete Med rec tomorrow by contacting her pharmacy and later resume her home medication as required. Patient is full code, as per the next of kin. Home Medications Scheduled Amlodipine Besylate (Amlodipine Besylate) 10 Mg Tablet, 10 MG PO DAILY, (Reported) Aspirin (Aspirin) 81 Mg Tab.chew, 81 MG PO QHS, (Reported) Calcium Carbonate (Calcium) 600 Mg Tablet, 1 TAB PO DAILY, (Reported) Carvedilol (Carvedilol) 12.5 Mg Tablet, 12.5 MG PO BID, (Reported) Denosumab Injection (Prolia) 60 Mg/1 Ml Syringe, 60 MG SC EVERY SIX MONTHS, (Reported) HAD INJECTION IN JANUARY DUE IN JULY Hydralazine HCl (Hydralazine HCl) 50 Mg Tablet, 50 MG PO TID, (Reported) Hydrochlorothiazide (Hydrochlorothiazide) 12.5 Mg Tablet, 1 TAB PO BID, (Reported) Insulin Glargine,Hum.rec.anlog (Lantus Solostar) 100 Unit/1 Ml Insuln.pen, 19 UNITS SQ DAILY, (Reported) Pravastatin Sodium (Pravastatin Sodium) 40 Mg Tablet, 40 MG PO QPM, (Reported) Sevelamer Carbonate (Sevelamer Carbonate) 800 Mg Tablet, 800 MG PO BIDWM, (Reported) Ubidecarenone (Coenzyme Q10) 100 Mg Tablet, 1 TAB PO DAILY, (Reported) Allergies Coded Allergies: Huzvbsx-Xif-Eve Reductase Inhibitor (Verified Allergy, Unknown, PAIN, 07/20/18) PT SAYS SHE CAN TAKE PRAVASTATIN A-FIB/CHADSVASC A-FIB History Current/History of A-Fib/PAF?: No Vital Signs Vital Signs Date Time Temp Pulse Resp B/P (MAP) Pulse Ox O2 Delivery O2 Flow Rate FiO2 03/02/20 20:45 100 21 177/77 (110) 99 Nasal Cannula 2.0 03/02/20 17:07 98.0 Laboratory Data Labs 24H Laboratory Tests 2 03/02/20 17:02: POC Glucose (Misc Panel) 99, POC Sodium (Misc Panel) 138, POC Potassium (Misc Panel) 3.9, POC Chloride (Misc Panel) 96L, POC Total CO2 (Misc Panel) 34.0H, POC Blood Urea Nitrogen (Misc Panel 22, POC Ionized Calcium (Misc Panel) 4.5, POC Creatinine (Misc Panel) 6.3H, POC Hematocrit (Misc Panel) 37.0L 03/02/20 17:06: Immature Granulocyte % (Auto) 0.5, Neutrophils (%) (Auto) 80.0H, Lymphocytes (%) (Auto) 13.0L, Monocytes (%) (Auto) 4.8, Eosinophils (%) (Auto) 1.0, Basophils (%) (Auto) 0.7, Neutrophils # (Auto) 4.6, Lymphocytes # (Auto) 0.8L, Monocytes # (Auto) 0.3, Eosinophils # (Auto) 0.1, Basophils # (Auto) 0.0, Nucleated Red Bloo d Cells % (auto) 0.0, Prothrombin Time 14.5H, Prothromb Time International Ratio 1.11, Activated Partial Thromboplast Time 46.3H, Total Bilirubin 0.6, Direct Bilirubin 0.2, Aspartate Amino Transf (AST/SGOT) 28, Alanine Aminotransferase (ALT/SGPT) 31, Alkaline Phosphatase 77, Total Creatine Kinase 244H, Creatine Kinase MB 2.5, Creatine Kinase MB Relative Index 1.02, Troponin I 0.04, Total Protein 7.8, Albumin 3.7, Albumin/Globulin Ratio 0.9L, Thyroid Stimulating Hormone (TSH) 2.470, Salicylates Level < 1.7L, Acetaminophen Level < 2.0L, Ethyl Alcohol Level < 0.003 03/02/20 17:07: WR-Ing-R-Type Natriuretic Peptide 97577D, Coronavirus (COVID-19)(PCR) NEGATIVE 03/02/20 18:56: Lactic Acid Level 1.0, Ammonia 14 03/02/20 20:12: Bedside Glucose (Misc Panel) 86 CBC/BMP Laboratory Tests 03/02/20 17:06 Microbiology Microbiology 03/02/20 Blood Culture, Received Pending 03/02/20 Blood Culture, Received Pending Plan / VTE VTE Prophylaxis Ordered?: Yes Tatiana Rebolledo MD Mar 02, 2020 22:00
[2020-03-02] MEDS: **hydrALAZINE** 50 MG TAB PO SCH (22:21)
[2020-03-02] MEDS: ASPIRIN 81 MG ENTERIC TAB PO SCH (22:21)
[2020-03-02] MEDS: DOCUSATE SODIUM 100MG CAPSULE PO SCH (22:22)
[2020-03-02] MEDS: CARVedilol 12.5 MG TAB PO SCH (22:22)
[2020-03-02] MEDS: HEPARIN SOD (PORCINE) 5000UNITS/ML 1ML VIAL/SYRINGE SC SCH (22:26)
--- NOTE | 2020-03-03 06:26 | ECGEPIP ---
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
[2020-03-03] MEDS: HEPARIN SOD (PORCINE) 5000UNITS/ML 1ML VIAL/SYRINGE SC SCH ×4 (06:27→21:23)
[2020-03-03 07:40] LABS: HEMATOCRIT 32.3 % (36.0-47.0); HEMOGLOBIN 9.4 g/dl (12.0-15.5); MEAN CORPUSCULAR HEMOGLOBIN 25.7 pg (27.0-33.0); MEAN CORPUSCULAR HGB CONC 29.1 g/dl (32.0-36.5); MEAN CORPUSCULAR VOLUME 88.3 fl (80.0-96.0); PLATELET COUNT, AUTOMATED 118 10^3/uL (150-450); RED BLOOD COUNT 3.66 10^6/uL (4.00-5.40); WHITE BLOOD COUNT 7.2 10^3/uL (4.0-10.0)
[2020-03-03 07:57] LABS: CALCIUM LEVEL 8.5 MG/DL (8.8-10.2); CREATININE FOR GFR 8.02 MG/DL (0.55-1.30); GLOMERULAR FILTRATION RATE 6.3 (>39); MAGNESIUM LEVEL 2.2 MG/DL (1.8-2.4); POTASSIUM SERUM 4.5 MEQ/L (3.5-5.1)
[2020-03-03] MEDS ORDERED: DOCU100C16 PO (08:20)
[2020-03-03] MEDS ORDERED: VITMTA PO (08:26)
[2020-03-03] MEDS ORDERED: MIRC30SO INJ (08:26)
[2020-03-03] MEDS ORDERED: CYAN100049 PO (08:26)
[2020-03-03] MEDS ORDERED: HEPA100I26 IV (08:26)
[2020-03-03] MEDS ORDERED: LIDO2.5C15 TOP (08:26)
[2020-03-03] MEDS ORDERED: CALC1CAP31 PO (08:26)
[2020-03-03] MEDS ORDERED: PRAV80TA2 PO (08:35)
[2020-03-03] MEDS ORDERED: MED REC COMMENT (08:35)
[2020-03-03] MEDS ORDERED: FUROSEMIDE 10MG PER 1/2 TABLET PO SCH (09:00)
[2020-03-03] MEDS: CYANOCOBALAMIN 500 MCG TAB PO SCH (09:11)
[2020-03-03] MEDS: CARVedilol 12.5 MG TAB PO SCH ×2 (09:12→21:21)
[2020-03-03] MEDS: DOCUSATE SODIUM 100MG CAPSULE PO SCH ×2 (09:13→21:21)
[2020-03-03] MEDS: amLODIPine 10 MG TAB PO SCH (09:13)
[2020-03-03] MEDS: FOLIC ACID 1 MG TAB PO SCH (09:13)
[2020-03-03] MEDS: **hydrALAZINE** 50 MG TAB PO SCH ×3 (09:13→21:21)
[2020-03-03] MEDS ORDERED: LIDOCAINE 1% MDV 20ML VIAL As Ordered ONE (12:22)
--- NOTE | 2020-03-03 13:34 | IPNPDOC ---
Text Note Date of Service The patient was seen on 03/03/20. NOTE Subjective: Patient seen and examined at bedside. No acute overnight events reported. Patient has no new medical complaints this morning, she again expresses concern regarding memory loss. Objective: General: NAD, sitting on commode on arrival HEENT: NC/AT Lungs: CTA B/L Heart: +S1S2, RRR Abd: soft, NT, +BS Ext: no edema A/P: 75 F brought in from the dialysis after she was found confused with hypertensive emergency. In the ED her blood pressure was 233/100 mmHg, with extensive PMHx including CHF (systolic and diastolic), HTN, IDDM, DLP, ESRD/HD, CAD/CABG, CVA, AOCD, bilateral bronchiectasis with calcified granulomas/mediastinal lymphadenopathy/chronic fibrosis. #Hypertensive Emergency: - Her highest blood pressure recorded in the ED was 268/ 138 mmHg came down to 1 68 /100 after a dose of IV hydralazine. - Start her on amlodipine 10 mg daily, hydralazine 50 mg 3 times a day, carvedilol 12.5 twice a day. The hold parameters <160 systolic. - telemetry. - MRI pending #CHF exacerbation: - Chest x-ray showing CHF pattern and small pleural effusion. - Last echo on record was on 06/07/2017, reported LVEF of 35-40%. Left Ventricular diastolic dysfunction grade 1. - consider repeat echo #ESRD/HD - Patient is a dialysis patient with end-stage renal disease on Monday schedule of dialysis . - follow as per nephrology #IDDM #CAD #CVA #anemia #DVT prophylaxis: - Heparin subcutaneous. VS,Fishbone, I+O VS, Fishbone, I+O Laboratory Tests 03/02/20 17:06 03/03/20 06:58 Vital Signs Date Time Temp Pulse Resp B/P (MAP) Pulse Ox O2 Delivery O2 Flow Rate FiO2 03/03/20 12:35 99.1 75 18 161/65 (97) 96 Room Air 03/02/20 23:30 2.0 PARUL PANTOJA MD Mar 03, 2020 13:34
--- NOTE | 2020-03-03 14:03 | CR ---
NEPHROLOGY CONSULTATION DATE: 03/03/2020 REQUESTING PHYSICIAN: CONSULTING PHYSICIAN: Dr. Daniel REASON FOR CONSULTATION: Management of end-stage renal disease, on hemodialysis. HISTORY OF PRESENT ILLNESS: Bree Acosta is well known to me. She is a 75-year-old female with a past medical history of end-stage renal disease, on hemodialysis on a Monday, Monday, Monday schedule with a left arm AV fistula, systolic and diastolic congestive heart failure, hypertension, insulin dependent diabetes mellitus, dyslipidemia, ischemic cardiomyopathy, coronary artery disease, status post CABG and other comorbid conditions mentioned below. Yesterday the patient had her hemodialysis treatment in the Outpatient Hemodialysis Unit and was noted to be confused and altered during the treatment. She was not answering simple questions appropriately and was hypertensive and was sent to the Emergency Room at the completion of her treatment for further evaluation. In the Emergency Room she was found to be significantly hypertensive with blood pressure of 233/100 and she was given Hydralazine and went for a CT head which showed no acute changes. I saw the patient in the Emergency Room and she recognized me and greeted me by name and was able to answer most questions appropriately, however was unable to name the president and thought the year was 2009 and continued to get her dates and days mixed up and was anxious about her confusion. She denies any fevers, chills, nausea, vomiting or diarrhea. Please see further review of systems. PAST MEDICAL HISTORY: The patient's past medical history is significant for: 1. End-stage renal disease on hemodialysis Monday, Monday, Monday schedule compliant patient. 2. Systolic and diastolic congestive heart failure. 3. Hypertension. 4. Type 2 diabetes mellitus. 5. Dyslipidemia. 6. Anemia of chronic renal failure. 7. Secondary hyperparathyroidism of renal origin. 8. Spinal stenosis - status post lumbar laminectomy. 9. Ischemic cardiomyopathy. 10. Coronary artery disease - status post CABG. 11. Calcified granulomas of the lungs. 12. Bronchiectasis. 13. Chronic back pain. 14. History of CVA with residual right sided weakness. PAST SURGICAL HISTORY: The patient's past surgical history is significant for: 1. AV fistula. 2. Hysterectomy. 3. CABG. 4. Lumbar laminectomy. ALLERGIES: Statins. FAMILY HISTORY: The patient's family history is positive for end-stage renal disease in her mother. SOCIAL HISTORY: She is an ex-smoker. Denies illicit drug use or alcohol use and lives at home. REVIEW OF SYSTEMS: The patient's review of systems was limited secondary to the patient's mentation, however: Constitutional: Denies fevers, chills. Eyes: Denies blurry vision or double vision. ENT: Denies dysphagia or odynophagia. Cardiovascular: Reports no chest pain. She was admitted with very high blood pressure. Denies leg edema. Respiratory: Denies shortness of breath or cough. Gastrointestinal: Denies nausea or vomiting. Genitourinary: Denies dysuria. Musculoskeletal: Reports spinal stenosis. Denies acute myalgias or arthralgias. Denies any new focal weakness. Skin: Denies rashes or ulcers. Neurologic: Has been having headaches. Denies seizures. Hematologic: Reports chronic anemia. Denies chcf anticoagulant use. Endocrine: Has history of diabetes mellitus type 2 and secondary hyperparathyroidism. The remainder of the review of systems is negative or as per HPI. HOME MEDICATIONS: The patient's home medications were reviewed and include: 1. Amlodipine 10 mg daily. 2. Aspirin 81 mg p.o. q. h.s. 3. Calcitriol 0.75 mcg with dialysis. 4. Tums one tab three times daily. 5. Carvedilol 12.5 mg p.o. twice daily. 6. Vitamin B-12 1,000 mcg p.o. daily. 7. Prolia 60 mg subcutaneously every 6 months. 8. Docusate 100 mg p.o. q. p.m. 9. Hydralazine 50 mg p.o. three times a day. 10. Insulin. 11. Mircera with dialysis. 12. Multivitamin one tab p.o. daily. 13. Renvela 800 mg p.o. twice daily with meals. 14. Coenzyme Q-10 100 mg p.o. daily. PHYSICAL EXAMINATION: VITAL SIGNS: Temperature 99.1, pulse 83, respiratory rate 18, blood pressure 166/76, saturating 94-97% on room air. GENERAL APPEARANCE: The patient was seen in the Emergency Room sitting in a chair, awake, alert, oriented to person and to place, able to tell me her full name, date of and that she was in [facility], but could not tell me the year, thinks it is 2009. Was oriented to season. HEENT: The extraocular muscles are intact. Makes eye contact. NECK: Supple. Jugular veins are not elevated. HEART: Regular. S1, S2. Peripheral pulses are palpable. LUNGS: Bibasilar crackle. No tachypnea, no accessory muscle use, comfortable on room air. ABDOMEN: Soft and nontender. There are bowel sounds. EXTREMITIES: Negative for clubbing or cyanosis. There is a fistula in the left arm which is patent with thrill and bruit. NEUROLOGIC: She was awake and alert, recognized me. Was cooperative with the physical exam, answered simple questions but was not oriented to the year and was occasionally confused. Was able to show me three fingers and move each extremity when instructed to. LABORATORY DATA: Sodium 138, potassium 4.5, bicarbonate 29, BUN 32, calcium 8.5, magnesium 2.2, BNP 57,000. Hemoglobin 9.4. Blood cultures pending x2. IMAGING DATA: CT head with no acute finding. Chest x-ray showed congestive heart failure pattern with small effusion and bibasilar opacities. INPATIENT MEDICATIONS: 1. Tylenol p.r.n. 2. Mylanta p.r.n. 3. Amlodipine 10 mg p.o. daily. 4. Aspirin 81 mg p.o. q. h.s. 5. Carvedilol 12.5 mg p.o. twice daily. 6. Vitamin B-12 1,000 mcg p.o. daily. 7. Docusate 100 mg p.o. twice daily. 8. Folic Acid one mg p.o. daily. 9. Heparin 5,000 units subcutaneously q. 8 hourly. 10. Hydralazine 50 mg p.o. 3 times daily. PROBLEMS: 1. End-stage renal disease, on hemodialysis on a Monday, Monday, Monday schedule. Her confusion is not secondary to any sort of uremic encephalopathy. Her blood urea nitrogen is less than 50. She is well dialyzed. Her next hemodialysis treatment will be on Monday morning. She is in mild fluid overload with chest x-ray showing small bilateral pleural effusions and congestive heart failure pattern, but she is saturating well on room air. 2. Hypertensive urgency associated with confusion the patient's blood pressure has improved since she came in. Systolic is now 140's to 160's, and she is back on Amlodipine, Hydralazine and Carvedilol. 3. Altered mental status Her mentation seems to have improved since she came to the Emergency Room. I found her to be awake, alert, conversational and cooperative with physical exam. She recognized me, greeted me by name and was able to answer most questions appropriately, however was not oriented to the year nor was she able to state the president's name. CT head showed no acute findings. Her ammonia level is normal. Her blood urea nitrogen is less than 50. MRI is pending. 4. Decompensated combined congestive heart failure - BNP is elevated at 57,000. Chest x-ray shows congestive heart failure pattern and small pleural effusions, but she is not in any sort of extremist. She is respiring well on room air. She will be dialyzed tomorrow morning, and her blood pressure will improve with further fluid removal. Thank you for involving me in the care of Miss Giron. I will be happy to follow her along with you.
[2020-03-03 14:44] VITALS: BP 188/83
[2020-03-03] MEDS ORDERED: SODIUM CHLORIDE 0.9% INJ 10 ML SYR IV PRN (14:45)
[2020-03-03 16:00] VITALS: BP 140/60
--- NOTE | 2020-03-03 16:08 | REP ---
PROCEDURE NAME: MIDLINE INSERTION W/ SITERITE CLINICAL INFORMATION: MIDLINE CATH, POOR VENOUS ACCESS. COMPARISON: None. PROCEDURE DESCRIPTION: The procedure was performed by EDER Anaya, under the direct supervision of Dr. Tripp. The risks and benefits of the procedure were explained to the patient and an informed consent was obtained both verbally and written. Directly prior to the start of the procedure a formal time-out was completed in the procedure room. The right lateral brachial vein was localized using ultrasound guidance. The skin was prepped and draped in sterile fashion. One mL of 1% lidocaine 10 mg/mL was used as a local anesthetic. Using ultrasound guidance the vein was cannulated, and a 0.018 guidewire was inserted. The needle was removed and a 5.5 [place]er dilator and peel-away sheath was inserted over the guidewire. A 5.5 [place] dual lumen catheter was cut to a length of 15 cm. The dilator was removed and the catheter was inserted over the guidewire. The peel-away sheath was removed and the catheter was flushed with heparinized saline as per hospital protocol. The catheter was affixed to the skin and a sterile dressing was applied. The patient tolerated the procedure well and there were no immediate complications. CONCLUSION: Mid line insertion into the right lateral brachial vein. <Electronically signed by Ramona Capone > 03/03/20 [id number] <Electronically signed by Bebeto Tripp > 03/03/20 [id number]
[2020-03-03] MEDS: SODIUM CHLORIDE 0.9% INJ 10 ML SYR IV SCH (18:01)
[2020-03-03 20:00] VITALS: BP 143/67
[2020-03-03] MEDS: ASPIRIN 81 MG ENTERIC TAB PO SCH (21:20)
[2020-03-04] VITALS (7 sets, daily range): BP systolic 119–160; BP diastolic 58–79
[2020-03-04] MEDS: DOCUSATE SODIUM 100MG CAPSULE PO SCH ×2 (05:54→21:53)
[2020-03-04] MEDS: FOLIC ACID 1 MG TAB PO SCH (05:57)
[2020-03-04] MEDS: CYANOCOBALAMIN 500 MCG TAB PO SCH (05:57)
[2020-03-04] MEDS: CARVedilol 12.5 MG TAB PO SCH ×2 (05:58→21:53)
[2020-03-04] MEDS: **hydrALAZINE** 50 MG TAB PO SCH ×3 (05:58→21:53)
[2020-03-04] MEDS: amLODIPine 10 MG TAB PO SCH (05:58)
[2020-03-04] MEDS: HEPARIN SOD (PORCINE) 5000UNITS/ML 1ML VIAL/SYRINGE SC SCH ×4 (05:59→21:52)
[2020-03-04] MEDS: SODIUM CHLORIDE 0.9% INJ 10 ML SYR IV SCH ×2 (05:59→18:11)
[2020-03-04 08:23] LABS: BASO % 0.7 % (0.0-1.0); EOS # 0.2 10^3/uL (0.0-0.5); EOS % 3.4 % (0.0-3.0); HEMATOCRIT 31.7 % (36.0-47.0); HEMOGLOBIN 9.4 g/dl (12.0-15.5); LYMPH # 0.8 10^3/uL (1.5-5.0); MEAN CORPUSCULAR HEMOGLOBIN 26.2 pg (27.0-33.0); MEAN CORPUSCULAR HGB CONC 29.7 g/dl (32.0-36.5); MEAN CORPUSCULAR VOLUME 88.3 fl (80.0-96.0); MONO # 0.4 10^3/uL (0.0-0.8); MONO % 8.2 % (0.0-5.0); NEUTROPHILS # 3.1 10^3/uL (1.5-8.5); NEUTROPHILS % 69.2 % (36.0-66.0); PLATELET COUNT, AUTOMATED 117 10^3/uL (150-450); RED BLOOD COUNT 3.59 10^6/uL (4.00-5.40); WHITE BLOOD COUNT 4.4 10^3/uL (4.0-10.0)
[2020-03-04] MEDS ORDERED: SODIUM CHLORIDE 0.9% 1000ML IV PRN (08:30)
[2020-03-04] MEDS ORDERED: LIDOCAINE 1% SDV 5ML VIAL SC PRN (08:30)
[2020-03-04 09:10] LABS: ALBUMIN 3.2 GM/DL (3.2-5.2); BILIRUBIN,TOTAL 0.5 MG/DL (0.2-1.0); CALCIUM LEVEL 8.8 MG/DL (8.8-10.2); CREATININE FOR GFR 9.74 MG/DL (0.55-1.30); GLOMERULAR FILTRATION RATE 5.1 (>39); POTASSIUM SERUM 4.7 MEQ/L (3.5-5.1); TOTAL PROTEIN 6.6 GM/DL (6.4-8.2)
--- NOTE | 2020-03-04 10:16 | IPNPDOC ---
Text Note Date of Service The patient was seen on 03/04/20. NOTE Subjective: Patient seen and examined at bedside. No acute overnight events reported. Patient has no new medical complaints this morning. She provides details regarding her memory loss, which involves phone numbers of her friends and families, otherwise she has no other memory deficits. Objective: General: NAD, sitting comfortably at edge of bed HEENT: NC/AT Lungs: CTA B/L Heart: +S1S2, RRR Abd: soft, NT, +BS Ext: no edema A/P: 75 F brought in from the dialysis after she was found confused with hypertensive emergency. In the ED her blood pressure was 233/100 mmHg, with extensive PMHx including CHF (systolic and diastolic), HTN, IDDM, DLP, ESRD/HD, CAD/CABG, CVA, AOCD, bilateral bronchiectasis with calcified granulomas/mediastinal lymphadenopathy/chronic fibrosis. #Hypertensive Emergency: - resolved - continue home meds #CHF exacerbation: - Chest x-ray showing CHF pattern and small pleural effusion. - Last echo on record was on 06/07/2017, reported LVEF of 35-40%. Left Ventricular diastolic dysfunction grade 1. - compensated #ESRD/HD - Patient is a dialysis patient with end-stage renal disease on Monday schedule of dialysis . - follow as per nephrology #IDDM #CAD #CVA #anemia #DVT prophylaxis: - Heparin subcutaneous. Dispo: transfer to med/surg, PT eval, anticipate discharge in 24 hours VS,Fishbone, I+O VS, Fishbone, I+O Laboratory Tests 03/04/20 07:50 Vital Signs Date Time Temp Pulse Resp B/P (MAP) Pulse Ox O2 Delivery O2 Flow Rate FiO2 03/04/20 07:31 97.7 68 18 136/64 (88) 96 Room Air 03/02/20 23:30 2.0 I&O- Last 24 Hours up to 6 AM 03/04/20 05:59 Intake Total 120 ml Output Total 0 ml Balance 120 ml PARUL PANTOJA MD Mar 04, 2020 10:16
[2020-03-04] MEDS ORDERED: DARBEPOETIN 100 MCG/0.5 ML *DIALYSIS* SYRINGE (J0882) IV SCH (10:30)
--- NOTE | 2020-03-04 15:55 | REP ---
INDICATION: Patient has altered metal status and HTN urgency.. COMPARISON: Comparison brain MRI study is from June 07, 2017. Comparison CT study March 02, 2020.. TECHNIQUE: Axial and sagittal imaging planes are utilized for T1 and T2-weighted scans. Sequences include spin-echo, fast spin echo, FLAIR, and diffusion weighted sequences. FINDINGS: No bony calvarial lesion is seen. Craniocervical junction and upper cervical cord are normal in appearance. There is no MR evidence of significant paranasal sinus disease. No intraorbital abnormality is seen. There is generalized volume loss again noted with concordant ventricular enlargement. Mild small vessel atherosclerotic changes are again seen. Diffusion-weighted scans show no evidence of restricted diffusion today to suggest acute ischemia. There is no evidence of intracranial hemorrhage. No mass, extra-axial fluid collection, or midline shift is observed. IMPRESSION: Small-vessel changes and generalized volume loss again noted. No acute intracranial abnormality.. <Electronically signed by Bridger Moreno > 03/04/20 [id number]
[2020-03-04] MEDS: ASPIRIN 81 MG ENTERIC TAB PO SCH (21:52)
[2020-03-05 02:00] VITALS: BP 146/60
[2020-03-05] MEDS: SODIUM CHLORIDE 0.9% INJ 10 ML SYR IV SCH ×2 (05:56→18:00)
[2020-03-05] MEDS: HEPARIN SOD (PORCINE) 5000UNITS/ML 1ML VIAL/SYRINGE SC SCH ×4 (05:57→21:39)
[2020-03-05 06:00] VITALS: BP 139/58
[2020-03-05 07:07] LABS: HEMATOCRIT 31.9 % (36.0-47.0); HEMOGLOBIN 9.3 g/dl (12.0-15.5); MEAN CORPUSCULAR HGB CONC 29.2 g/dl (32.0-36.5); MEAN CORPUSCULAR VOLUME 89.1 fl (80.0-96.0); PLATELET COUNT, AUTOMATED 129 10^3/uL (150-450); RED BLOOD COUNT 3.58 10^6/uL (4.00-5.40); WHITE BLOOD COUNT 5.8 10^3/uL (4.0-10.0)
[2020-03-05 07:34] LABS: CALCIUM LEVEL 8.3 MG/DL (8.8-10.2); CREATININE FOR GFR 6.65 MG/DL (0.55-1.30); GLOMERULAR FILTRATION RATE 7.9 (>39); POTASSIUM SERUM 4.7 MEQ/L (3.5-5.1)
[2020-03-05] MEDS: CARVedilol 12.5 MG TAB PO SCH ×2 (09:38→21:29)
[2020-03-05] MEDS: FOLIC ACID 1 MG TAB PO SCH (09:38)
[2020-03-05] MEDS: DOCUSATE SODIUM 100MG CAPSULE PO SCH ×2 (09:38→21:30)
[2020-03-05] MEDS: **hydrALAZINE** 50 MG TAB PO SCH ×3 (09:38→21:30)
[2020-03-05] MEDS: CYANOCOBALAMIN 500 MCG TAB PO SCH (09:39)
[2020-03-05] MEDS: amLODIPine 10 MG TAB PO SCH (09:39)
[2020-03-05 10:00] VITALS: BP 142/68
--- NOTE | 2020-03-05 12:55 | IPN ---
PROGRESS NOTE DATE: 03/05/2020 SUBJECTIVE: Bree is seen and examined this morning at the bedside. She denies any shortness of breath or nausea, vomiting or diarrhea. She has been up and ambulating and has no new medical complaints. PHYSICAL EXAMINATION: VITAL SIGNS: Temperature is 98.4, pulse is 78, respiratory rate 18, blood pressure is 142/68, saturating 99% on room air. INTAKE AND OUTPUT: Intake yesterday was 810, dialysis yesterday removed 2 liters. Weight on the bed scale today is not recorded. GENERAL: Patient is seen sitting on the edge of the bed, legs dangling. Elderly female in no apparent distress. HEENT: Extraocular muscles are intact. Tongue is moist. NECK: Supple. Jugular veins are not elevated. HEART: Heart sounds are regular. S1 and S2. EXTREMITIES: Peripheral pulses are palpable. LUNGS: Bibasilar crackles. No tachypnea. No accessory muscle use. Comfortable on room air. ABDOMEN: Soft and nontender. There are bowel sounds. EXTREMITIES: Negative for clubbing or cyanosis. There is a fistula in the left arm which is patent with thrill and bruit. NEUROLOGIC: She is awake, alert and oriented x3, interactive and appears to be at baseline mentation. LABORATORY DATA: White count is 5.8, hemoglobin is 9.3, platelets are 129,000. Sodium is 137, potassium is 4.7, glucose 151. MRI of the brain done yesterday showed no acute abnormalities. INPATIENT MEDICATIONS: Reviewed by myself. She was resumed on Aranesp with hemodialysis. The remainder of medications are unchanged as compared to yesterday. PROBLEMS: 1. Endstage renal disease on hemodialysis on Monday, Monday and Monday schedule. The patient was dialyzed yesterday with 2 liters of fluid removed. Her next dialysis will be on March 06 as per her maintenance schedule. Her electrolytes and volume status are acceptable. Continue current dialysis prescription. 2. Anemia related to chronic kidney disease. She is resumed on Aranesp with hemodialysis. 3. Hypertension, status post hypertensive emergency and hypertensive encephalopathy. Blood pressures are much better, systolic is 120s to 140s. She continues on her home regimen of amlodipine, Carvedilol, Hydralazine. 4. Diastolic congestive heart failure. The patient had some mild bibasilar crackles and the last chest x-ray showed small effusions and bibasilar opacities. We will try to remove 3 liters tomorrow as tolerated by hemodynamics and she continues on an oral fluid restriction.
--- NOTE | 2020-03-05 13:02 | IPNPDOC ---
Text Note Date of Service The patient was seen on 03/05/20. NOTE Subjective: Patient seen and examined at bedside. No acute overnight events reported. Patient has no new medical complaints this morning. She is concerned about her ability to ambulate. Objective: General: NAD, sitting comfortably at edge of bed HEENT: NC/AT Lungs: CTA B/L Heart: +S1S2, RRR Abd: soft, NT, +BS Ext: no edema A/P: 75 F brought in from the dialysis after she was found confused with hypertensive emergency. In the ED her blood pressure was 233/100 mmHg, with extensive PMHx including CHF (systolic and diastolic), HTN, IDDM, DLP, ESRD/HD, CAD/CABG, CVA, AOCD, bilateral bronchiectasis with calcified granulomas/mediastinal lymphadenopathy/chronic fibrosis. #Hypertensive Emergency with hypertensive encephalopathy - resolved - continue home meds #CHF exacerbation: - Chest x-ray showing CHF pattern and small pleural effusion. - Last echo on record was on 06/07/2017, reported LVEF of 35-40%. Left Ventricular diastolic dysfunction grade 1. - grossly compensated - anticipating further fluid removal with HD tomorrow (Monday) #ESRD/HD - Patient is a dialysis patient with end-stage renal disease on Monday schedule of dialysis . - follow as per nephrology #IDDM #CAD #CVA #anemia #DVT prophylaxis: - Heparin subcutaneous. Dispo: pending clinical improvement, further PT; anticipate d/c in 24-48 hours VS,Fishbone, I+O VS, Fishbone, I+O Laboratory Tests 03/05/20 06:52 Vital Signs Date Time Temp Pulse Resp B/P (MAP) Pulse Ox O2 Delivery O2 Flow Rate FiO2 03/05/20 10:00 98.4 78 18 142/68 (92) 99 Room Air 03/02/20 23:30 2.0 I&O- Last 24 Hours up to 6 AM 03/05/20 06:00 Intake Total 910 ml Output Total 2000 ml Balance -1090 ml PARUL PANTOJA MD Mar 05, 2020 13:02
[2020-03-05 14:00] VITALS: BP 134/50
--- NOTE | 2020-03-05 14:18 | IPN ---
NEPHROLOGY PROGRESS NOTE DATE: 03/04/2020 SUBJECTIVE: Bree was seen and examined this morning at the bedside in the Hemodialysis Unit receiving her treatment. I found her to be oriented x3 and she denied any complaints and specifically no headaches, no shortness of breath, no chest pain, no nausea, no vomiting or diarrhea. Her dialysis has been uneventful. VITAL SIGNS: Temperature 98.3, pulse 88, respiratory rate 18, blood pressure 119/73, saturating 98% on room air. Dialysis today removed 2 liters. PHYSICAL EXAMINATION: GENERAL APPEARANCE: The patient is seen awake, alert, oriented x3 in the Dialysis Unit receiving her dialysis treatment. HEENT: The extraocular muscles are intact. Tongue is moist. NECK: Supple. Jugular veins are not elevated. HEART: Regular. S1, S2. There is no leg edema. LUNGS: Clear to auscultation bilaterally. No crackles or rales. ABDOMEN: Soft and nontender, positive bowel sounds. EXTREMITIES: Negative for clubbing, cyanosis, or edema. The fistula in the left arm is patent and in use. NEUROLOGICAL: She was cooperative with physical exam. She was conversational. She was oriented to year, person, place, situation, recognized me and answered all questions appropriately and appeared to be at her baseline mentation. LABORATORY STUDIES: White count 4.4, hemoglobin 9.4, platelet count 117. Sodium 139, potassium 4.7, bicarbonate 28, BUN 53. Blood cultures no growth for 48 hours x2 sets. Problems: 1)ESRD on MWF dialysis schedule. She was dialyzed today with 2 L of fluid removed. Her electrolytes and volume status is improving. Continue current dialysis prescription. 2. Anemia related to chronic kidney disease. She is resumed on Aranesp with hemodialysis. 3. Hypertension, status post hypertensive emergency and hypertensive encephalopathy. Blood pressures are much better, systolic is 120s to 140s. She continues on her home regimen of amlodipine, Carvedilol, Hydralazine. 4. Diastolic congestive heart failure. The patient had some mild bibasilar crackles and the last chest x-ray showed small effusions and bibasilar opacities. We will try to remove 3 liters on her next HD treatment 03/06/20 as tolerated by hemodynamics and she continues on an oral fluid restriction. MTDD
[2020-03-05 18:00] VITALS: BP 136/62
[2020-03-05 20:43] VITALS: BP 137/51
[2020-03-05] MEDS: ASPIRIN 81 MG ENTERIC TAB PO SCH (21:29)
[2020-03-06 01:59] VITALS: BP 153/51
[2020-03-06 05:37] VITALS: BP 132/62
[2020-03-06] MEDS: amLODIPine 10 MG TAB PO SCH (05:49)
[2020-03-06 05:50] VITALS: BP 132/62
[2020-03-06] MEDS: CARVedilol 12.5 MG TAB PO SCH (05:50)
[2020-03-06] MEDS: CYANOCOBALAMIN 500 MCG TAB PO SCH (05:50)
[2020-03-06] MEDS: FOLIC ACID 1 MG TAB PO SCH (05:50)
[2020-03-06] MEDS: **hydrALAZINE** 50 MG TAB PO SCH (05:50)
[2020-03-06] MEDS: SODIUM CHLORIDE 0.9% INJ 10 ML SYR IV SCH (05:51)
[2020-03-06] MEDS: DOCUSATE SODIUM 100MG CAPSULE PO SCH (05:51)
[2020-03-06] MEDS: HEPARIN SOD (PORCINE) 5000UNITS/ML 1ML VIAL/SYRINGE SC SCH ×2 (05:55→13:37)
[2020-03-06 07:44] LABS: HEMATOCRIT 33.5 % (36.0-47.0); HEMOGLOBIN 9.7 g/dl (12.0-15.5); MEAN CORPUSCULAR HEMOGLOBIN 25.9 pg (27.0-33.0); MEAN CORPUSCULAR VOLUME 89.6 fl (80.0-96.0); PLATELET COUNT, AUTOMATED 145 10^3/uL (150-450); RED BLOOD COUNT 3.74 10^6/uL (4.00-5.40)
[2020-03-06 08:28] LABS: CALCIUM LEVEL 8.4 MG/DL (8.8-10.2); CREATININE FOR GFR 8.36 MG/DL (0.55-1.30); POTASSIUM SERUM 4.4 MEQ/L (3.5-5.1)
[2020-03-06] MEDS ORDERED: LIDOCAINE 1% SDV 5ML VIAL SC PRN (10:00)
[2020-03-06] MEDS ORDERED: SODIUM CHLORIDE 0.9% 1000ML IV PRN (10:00)
[2020-03-06] MEDS ORDERED: (RENVELA) SEVELAMER **CARBONate** 800 MG TAB PO SCH (12:30)
--- NOTE | 2020-03-06 13:13 | IPN ---
INPATIENT PROGRESS NOTE DATE: 03/06/20 SUBJECTIVE: Bree is seen and examined this morning in the hemodialysis unit receiving her treatment and denies any shortness of breath. Has been working with physical therapy. She has had some hypotension of hemodialysis and her goal fluid removal was decreased from 3 liters down to 2 liters. PHYSICAL EXAMINATION: Temperature 96.6, pulse 77, respiratory rate 20, blood pressure 132/62, saturating 97% on room air. Intake yesterday was 1 liter. Weight on the bed scale today is 67 kg. General: Patient is seen awake, alert, oriented in the hemodialysis unit receiving her treatment. HEENT: Extraocular muscles are intact. Tongue is moist. Nasal cannula is in place. Neck: Jugular veins are not elevated. Heart: Sounds are regular S1 and S2. Lungs: Diminished breath sounds at the bases otherwise clear without wheeze. Abdomen: Soft and nontender, positive bowel sounds. Extremities: Negative for cyanosis, clubbing or edema. The fistula in the left arm is patent and in use. Neurologic: She was cooperative with physical exam and oriented and interactive, at baseline mentation. Skin: Normal temperature and turgor. LABORATORY DATA: Laboratory studies today show white count 5, hemoglobin 9.7, platelets 145. Sodium 138, potassium 4.4. INPATIENT MEDICATIONS: Reviewed by myself and I cut her amlodipine down to 5 mg. PROBLEMS/PLAN: 1. End-stage renal disease: On hemodialysis on a Monday, Monday, Monday schedule. Patient had hypotension of hemodialysis today. Blood pressure was down in to the 80s. We had to cut back on our goal fluid removal. I am cutting down on her anti-hypertensive medications. Her electrolytes are acceptable. 2. Hypertension complicated by hypotension of hemodialysis: Patient is on carvedilol and hydralazine. I reduced the dose of amlodipine down to 5 mg. 3. Status post hypertensive emergency and status post hypertensive encephalopathy: Mentation is at baseline. Blood pressures are well controlled in fact maybe a little too tightly controlled as she had hypotension of hemodialysis and her calcium channel shante dose is slightly reduced. 4. Diastolic congestive heart failure: The patient has small pleural effusions and we were hopeful to remove 3 liters of fluid with her treatment today, but due to fall in systolic blood pressure her goal fluid removal was decreased and her amlodipine dose was subsequently cut back. 5. Anemia related to chronic kidney disease: Hemoglobin is below goal and she continues on Aranesp with dialysis.
--- NOTE | 2020-03-06 13:26 | DS.PDOC ---
Discharge Summary General Date of Admission Mar 02, 2020 at 21:11 Date of Discharge 03/06/20 Discharge Summary PROCEDURES PERFORMED DURING STAY: [None]. 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 HISTORY OF PRESENT ILLNESS: 75 year old female patient was brought to the ED from dialysis unit as she was confused and hypertensive. Her called to obtain more history. He reports was confused since couple of weeks and was getting worse gradually, she was confused and loses her chain of thought while talking. He reported she was having blank stare episodes and when I asked what is going on she would respond saying nothing. He also reports she having multiple falls and about 2 days ago she did hit her head when she fell. He denied she having any nausea, vomiting, fever. She did complain at home on and off headaches, body pains. HOSPITAL COURSE: Patient was admitted for further evaluation and treatment. Her mentation returned to her baseline. She stated her memory issues were specifically regar ding phone numbers. She had no other medical complaints. Hospital stay was otherwise unremarkable DISCHARGE MEDICATIONS: Please see below. ALLERGIES: Please see below. PHYSICAL EXAMINATION ON DISCHARGE: VITAL SIGNS: Please see below. General: NAD, sitting comfortably at edge of bed HEENT: NC/AT Lungs: CTA B/L Heart: +S1S2, RRR Abd: soft, NT, +BS Ext: no edema LABORATORY DATA: Please see below. ACTIVITY: [As tolerated]. DISPOSITION: Discharge home with services DISCHARGE INSTRUCTIONS: 1. PCP in 3-5 days 2. Nephrology as scheduled DISCHARGE CONDITION: [Stable]. TIME SPENT ON DISCHARGE: 35 minutes. Vital Signs/I&Os Vital Signs Date Time Temp Pulse Resp B/P (MAP) Pulse Ox O2 Delivery O2 Flow Rate FiO2 1/8/21 05:50 132/62 03/06/20 05:50 77 03/06/20 05:37 96.6 20 97 Room Air 03/02/20 23:30 2.0 I&O- Last 24 Hours up to 6 AM 03/06/20 06:00 Intake Total 1320 ml Balance 1320 ml Laboratory Data Labs 24H Laboratory Tests 2 03/05/20 16:52: Bedside Glucose (Misc Panel) 178H 03/05/20 20:46: Bedside Glucose (Misc Panel) 272H 03/06/20 05:42: Bedside Glucose (Misc Panel) 128H 03/06/20 07:20: Nucleated Red Blood Cells % (auto) 0.0, Anion Gap 8, Glomerular Filtration Rate 6.0L, Calcium Level 8.4L CBC/BMP Laboratory Tests 03/06/20 07:20 FSBS Laboratory Tests Test 03/05/20 16:52 03/05/20 20:46 03/06/20 05:42 Range/Units Bedside Glucose (Misc Panel) 178 272 128 83-110 MG/DL Microbiology Microbiology 03/02/20 Blood Culture - Preliminary, Resulted No Growth after 72 hours. All specime... 03/02/20 Blood Culture - Preliminary, Resulted No Growth after 72 hours. All specime... Discharge Medications Scheduled Amlodipine Besylate (Amlodipine Besylate) 10 Mg Tablet, 10 MG PO DAILY, (Reported) Aspirin (Aspirin) 81 Mg Tab.chew, 81 MG PO QHS, (Reported) Calcitriol (Calcitriol) 0.25 Mcg Capsule, 0.75 MCG PO HD, (Reported) MON/MON/MON Calcium Carbonate (Calcium) 600 Mg Tablet, 600 MG PO TID, (Reported) Carvedilol (Carvedilol) 12.5 Mg Tablet, 12.5 MG PO BID, (Reported) Cyanocobalamin (Vitamin B-12) (Vitamin B-12) 1,000 Mcg Tablet, 1,000 MCG PO DAILY, (Reported) Denosumab Injection (Prolia) 60 Mg/1 Ml Syringe, 60 MG SC ASDIRECTED, (Reported) EVERY SIX MONTHS Docusate Sodium (Docusate Sodium) 100 Mg Capsule, 100 MG PO QPM, (Reported) Heparin Sodium,Porcine/Pf (Heparin 1,000 Unit/10 (100/ml)) 1,000 Unit/10 Ml Syringe, 1,000 UNIT IV HD, (Reported) MON/MON/MON Hydralazine HCl (Hydralazine HCl) 50 Mg Tablet, 50 MG PO TID, (Reported) Insulin Glargine,Hum.rec.anlog (Lantus Solostar) 100 Unit/1 Ml Insuln.pen, 1 DOSE SC DAILY, (Reported) UNABLE TO VERIFY DOSE WITH PT, LAST FILLED 05/28/19 WITH [facility] Methoxy Peg-Epoetin Beta (Mircera) 30 Mcg/0.3 Ml Syringe, 60 MCG INJ Q2WK, (Reported) Multivitamins (Thera M Plus Tablet) 1 Each Tablet, 1 TAB PO DAILY, (Reported) Pravastatin Sodium (Pravastatin Sodium) 80 Mg Tablet, 80 MG PO QHS, (Reported) LAST FILLED 07/11/19 Sevelamer Carbonate (Sevelamer Carbonate) 800 Mg Tablet, 800 MG PO BIDWM, (Reported) Ubidecarenone (Coenzyme Q10) 100 Mg Tablet, 100 MG PO DAILY, (Reported) Scheduled PRN Lidocaine/Prilocaine (Lidocaine-Prilocaine Cream) 2.5%/2.5% Cream..g., 1 APLCT TOP ASDIRECTED PRN for DIALYSIS, (Reported) Miscellaneous Medications [Med Rec Comment] , (Reported) OBTAINED MED LIST FROM DIALYSIS AND PHARMACY Allergies Coded Allergies: Zhbnrep-Iub-Cpu Reductase Inhibitor (Verified Allergy, Unknown, PAIN, 07/20/18) PT SAYS SHE CAN TAKE PRAVASTATIN PARUL PANTOJA MD Mar 06, 2020 13:26
[2020-03-07] MEDS ORDERED: amLODIPine 10 MG TAB PO SCH (09:00)
== END 2020-03-06 15:40 | disposition home health service (06) | DRG 77 ==
LOC: M ED 16:03 → M ED INP 21:11 → ENRESERV 03-03 12:22 → M PCU 03-03 14:06 → M MS5PR 03-04 15:10
PROVIDERS: ADMIT Family Medicine; ATTEND Internal Medicine
PROC: 05H933Z Insertion of Infusion Device into Right Brachial Vein, Percutaneous Approach (ICD-10-PCS; 2020-03-03)
PROC: 5A1D70Z Performance of Urinary Filtration, Intermittent, Less than 6 Hours Per Day (ICD-10-PCS; principal; 2020-03-05)
DX: I67.4 Hypertensive encephalopathy (principal); N18.6 End stage renal disease; I50.43 Acute on chronic combined systolic (congestive) and diastolic (congestive) heart failure; I69.351 Hemiplegia and hemiparesis following cerebral infarction affecting right dominant side; N25.81 Secondary hyperparathyroidism of renal origin; I16.1 Hypertensive emergency; I13.2 Hypertensive heart and chronic kidney disease with heart failure and with stage 5 chronic kidney disease, or end stage renal disease; E11.22 Type 2 diabetes mellitus with diabetic chronic kidney disease; D63.1 Anemia in chronic kidney disease; I69.328 Other speech and language deficits following cerebral infarction; E78.5 Hyperlipidemia, unspecified; I25.5 Ischemic cardiomyopathy; I95.3 Hypotension of hemodialysis; G47.8 Other sleep disorders; I25.10 Atherosclerotic heart disease of native coronary artery without angina pectoris; J84.10 Pulmonary fibrosis, unspecified; J47.9 Bronchiectasis, uncomplicated; Z95.1 Presence of aortocoronary bypass graft; Z87.891 Personal history of nicotine dependence; Z99.2 Dependence on renal dialysis; Z79.82 Long term (current) use of aspirin; Z79.4 Long term (current) use of insulin; Z79.899 Other long term (current) drug therapy; Z88.8 Allergy status to other drugs, medicaments and biological substances; Z20.822 Contact with and (suspected) exposure to COVID-19

== ENCOUNTER → 2020-03-24 | Outpatient (CLI) | payer MEDICARE, BC ==
[~2020-03-24] MED LIST changes: +ASPI-161 PO; +AUGM875T28 PO; +CALC1CAP31 PO; +COZA1TAB PO; +DOCU100C16 PO; +HEPA100I26 IV; +ISOS1TAB35 PO; -ISOS30TA4 PO; +MED REC COMMENT; +MIRC30SO INJ; +SIME80CH5 PO; -SIME80TA PO
--- NOTE | 2020-04-09 12:53 | REP ---
INDICATION: LEG WEAKNESS, S/P RT LEG ANGIOGRAM. Repeat dictation. The study is acquired on 24 March 2020 and is presented to me for repeat dictation on 09 April 2020. COMPARISON: None. TECHNIQUE: Bilateral lower extremity arterial Doppler ultrasound. FINDINGS: The patient declined ankle brachial index procedure. 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 Extensively calcified vessels are seen bilaterally. The posterior tibial arteries are occluded bilaterally. Monophasic waveforms are noted in the proximal posterior tibial artery on the left. Biphasic waveforms are noted in the arterial tree otherwise. There is a 2-1 velocity ratio stenosis in the left distal superficial femoral artery. 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 Bilaterally occluded distal posterior tibial arteries. Mild stenosis in the distal SFA/pop region on the left. <Electronically signed by Bridger Moreno > 04/09/20 1247
== END ==
LOC: M RAD 11:01
PROVIDERS: ATTEND Physician Assistant
DX: I70.213 Atherosclerosis of native arteries of extremities with intermittent claudication, bilateral legs (principal); R53.1 Weakness

== ENCOUNTER 2020-03-30 19:06 | Inpatient (IN) | payer MEDICARE, BC ==
[~2020-03-30] VITALS: Ht 165.1 cm; Wt 64.6 kg
[~2020-03-30 19:06] MED LIST changes: -ASPI-161 PO; -AUGM875T28 PO; -COZA1TAB PO
--- OUTSIDE RECORDS SUMMARY | 2020-03-30 19:20 | CCD ---
Author Author [facility] Organization [facility] Address Unknown Phone Unavailable Care Team Providers Care Lidar Technician Name Role Phone Sunil Ngo Unavailable PROBLEMS Type Condition ICD9-CM Code [id number] Code Onset Dates Condition S tatus SNOMED Code Notes Problem Diabetes mellitus due to und erlying condition with unspecified complications E08.8 Active 7979198 Problem Type 2 diabetes mellitus wit hout complication, unspecified whether shelter insulin use E11.9 Active 150796683 Problem Hypertension, unspecified type I10 Active 3 4615606 Problem Hyperlipidemia, unspecified hyperlipidemia type E7 8.5 Active [id number] ALLERGIES No Known Allergies ENCOUNTERS from 1945 to 2020-03-10 Encounter Location Date Provider Diagnosis [facility] [address] [place] [address], Sunil Ngo IMMUNIZATIONS No Information SOCIAL HISTORY Sex Assigned At : Social History Observation Description Sex Assigned At Unknown Language: Question Answer Notes Languages spoken: Syriac REASON FOR REFERRAL No Information VITAL SIGNS No information MEDICATIONS Medication SIG (Take, Route, Frequency, Duration) Notes Start Da te End Date Status Mometasone Furoate 0.1 % 1 application Externally Once a day Active Ropinirole HCl 0.25 MG 1 tablet 1 to 3 hours before bedtime Oral ly Once a day Active Lancets Ultra Thin - as directed subcutaneously Daily for 30 Day s May, Active Pravastatin Sodium 80 MG 1 tablet Orally Once a day for 30 day(s ) Apr, Active Prolia 60mg injection every 6 months Active Carvedilol 12.5 MG 1 tablet with food Orally Twice a day for 30 day(s ) Active HydrALAZINE HCl 25 MG 1 tablet with food Orally Th ree times a daySBP less than 110 for 30 day(s) Apr, Active Aspir-81 1 tab orally before bedtime Active Aspirin 81 MG 1 tablet Orally Once a day for 30 day(s) Apr, Active Gabapentin 100 MG 1 capsule Orally before bedtime Active AmLODIPine Besylate 5 MG 1 tablet Orally Once a day for 30 day(s ) Apr, Active Venlafaxine HCl 37.5 MG one half Orally three times daily Active AmLODIPine Besylate 5 MG 1 tablet Orally before bedtime Active HydrALAZINE HCl 25 MG 1 tablet with food Orally Three times a day for 30 day(s) Active Lantus SoloStar 100 UNIT/ML 16 units Subcutaneous Daily for 30 D ays Apr, Active Tramadol HCl 50 MG 1 tablet as needed Orally three times daily Active Carvedilol 12.5 MG 1 tablet with food Orally Twice a day for 30 day(s) Apr, Active Pravastatin Sodium 80 MG 1 tablet Orally before bedtime for 90 days Active Gabapentin 100 MG 1 capsule Orally Once a day for 30 day(s) Apr, Active Lantus SoloStar 100 UNIT/ML as directed Subcutaneous Active PROCEDURES No Information RESULTS No Results REASON FOR VISIT Send letter MEDICAL (GENERAL) HISTORY Type Description Date Medical History Stroke 01/2019 Medical History Heart Attack 2009 Medical History Diabetes Goals Section No Information Health Concerns No Information MEDICAL EQUIPMENT No Information MENTAL STATUS No Information FUNCTIONAL STATUS No Information ASSESSMENTS No Information PLAN OF TREATMENT Medication Medication Name Sig Start Date Stop Date Aspirin 81 MG 1 tablet Orally Once a day for 30 day(s) Apr, Pravastatin Sodium 80 MG 1 tablet Orally before bedtime for 90 d ays Lantus SoloStar 100 UNIT/ML 16 units Subcutaneous Daily for 30 Days Apr, Gabapentin 100 MG 1 capsule Orally Once a day for 30 day(s) 2019 Carvedilol 12.5 MG 1 tablet with food Orally Twice a day fo r 30 day(s) Apr, AmLODIPine Besylate 5 MG 1 tablet Orally Once a day for 30 day(s ) Apr, Pravastatin Sodium 80 MG 1 tablet Orally Once a day for 30 day(s ) Apr, HydrALAZINE HCl 25 MG 1 tablet with food Orally Th ree times a daySBP less than 110 for 30 day(s) Apr, Lancets Ultra Thin - as directed subcutaneously Daily for 30 Day s May, Insurance Providers Payer Name Payer Address Payer Phone Insured Name Patient Relati onship to Insured Coverage Start Date Coverage End Date BCBS INGRID [employer] O [id number] [facility] [place] [id number] RONNIE BRAN
--- OUTSIDE RECORDS SUMMARY | 2020-03-30 19:20 | CCD ---
Author Author [facility] Organization [facility] Address Unknown Phone Unavailable Care Team Providers Care Manager Primary Care Name Role Phone Elias Beth MD Unavailable Unavailable Elias Beth MD Unavailable Unavailable Elias Beth MD Unavailable Unavailable Elias Beth MD Unavailable Unavailable Elias Beth MD Unavailable Unavailable Elias Beth MD Unavailable Unavailable Elias Beth MD Unavailable Unavailable Elias Beth MD Unavailable Unavailable Elias Beth MD Unavailable Unavailable Elias Beth MD Unavailable Unavailable Elias Beth MD Unavailable Unavailable Elias Beth MD Unavailable Unavailable Elias Beth MD Unavailable Unavailable Elias Beth MD Unavailable Unavailable Elias Beth MD Unavailable Unavailable Elias Beth MD Unavailable Unavailable Elias Beth MD Unavailable Unavailable Elias Beth MD Unavailable Unavailable Elias Beth MD Unavailable Unavailable Elias Beth MD Unavailable Unavailable Elias Beth MD Unavailable Unavailable lEias Beth MD Unavailable Unavailable Elias Beth MD Unavailable Unavailable Elias Beth MD Unavailable Unavailable Elias Beth MD Unavailable Unavailable Elias Beth MD Unavailable Unavailable Elias Beth MD Unavailable Unavailable KiritElias MD Unavailable Unavailable KiritElias MD Unavailable Unavailable KiritElias MD Unavailable Unavailable KiritElias MD Unavailable Unavailable KiritElias MD Unavailable Unavailable KiritElias MD Unavailable Unavailable KiritElias calvert MD Unavailable Unavailable KiritElias calvert MD Unavailable Unavailable IkritElias MD Unavailable Unavailable KiritElias MD Unavailable Unavailable KiritElias MD Unavailable Unavailable KiritElias MD Unavailable Unavailable KiritElias calvert MD Unavailable Unavailable KiritElias calvert MD Unavailable Unavailable KiritElias MD Unavailable Unavailable KiritElias MD Unavailable Unavailable KiritElias MD Unavailable Unavailable KiritElias MD Unavailable Unavailable KiritElias calvert MD Unavailable Unavailable KiritElias glover MD Unavailable Unavailable KiritElias calvert MD Unavailable Unavailable KiritElias calvert MD Unavailable Unavailable KiritElias calvert MD Unavailable Unavailable KiritElias calvert MD Unavailable Unavailable KiritElias glover MD Unavailable Unavailable KiritElias glover MD Unavailable Unavailable KiritElias glover MD Unavailable Unavailable Cederstrand, Cynthia Olivarez MD Unavailable Unavailable Cederstrand, Cynthia Olivarez MD Unavailable Unavailable Cederstrand, Cynthia Olivarez MD Unavailable Unavailable Cederstrand, Cynthia Olivarez MD Unavailable Unavailable Cederstrand, Cynthia Olivarez MD Unavailable Unavailable Cederstrand, Cynthia Olivarez MD Unavailable Unavailable CederstrandCynthia MD Unavailable Unavailable Cederstrand, Cynthia Olivarez MD Unavailable Unavailable CederstrandCynthia MD Unavailable Unavailable CederstrandCynthia MD Unavailable Unavailable CederstrandCynthia MD Unavailable Unavailable CederstrandCynthia MD Unavailable Unavailable Cederstrand, Cynthia Olivarez MD Unavailable Unavailable CederstrandCynthia MD Unavailable Unavailable CederstrandCynthia MD Unavailable Unavailable Fons, M Ju PET CARETAKER Unavailable Unavailable Fons, M Ju PET CARETAKER Unavailable Unavailable Fons, M Ju PET CARETAKER Unavailable Unavailable Fons, M Ju PET CARETAKER Unavailable Unavailable Fons, M Ju PET CARETAKER Unavailable Unavailable Fons, M Ju PET CARETAKER Unavailable Unavailable Fons, M Ju PET CARETAKER Unavailable Unavailable Fons, M Ju PET CARETAKER Unavailable Unavailable Fons, M Ju PET CARETAKER Unavailable Unavailable Fons, M Ju PET CARETAKER Unavailable Unavailable Fons, M Ju PET CARETAKER Unavailable Unavailable Fons, M Ju PET CARETAKER Unavailable Unavailable Fons, M Ju PET CARETAKER Unavailable Unavailable Fons, M Ju PET CARETAKER Unavailable Unavailable Fons, M Ju PET CARETAKER Unavailable Unavailable Fons, M Ju PET CARETAKER Unavailable Unavailable Fons, M Ju PET CARETAKER Unavailable Unavailable Fons, M Ju PET CARETAKER Unavailable Unavailable Fons, M Ju PET CARETAKER Unavailable Unavailable Fons, M Ju PET CARETAKER Unavailable Unavailable Fons, M Ju PET CARETAKER Unavailable Unavailable Fons, M Ju PET CARETAKER Unavailable Unavailable Fons, M Ju PET CARETAKER Unavailable Unavailable Fons, M Ju PET CARETAKER Unavailable Unavailable Fons, M Ju PET CARETAKER Unavailable Unavailable Fons, M Ju PET CARETAKER Unavailable Unavailable Fons, M Ju PET CARETAKER Unavailable Unavailable Fons, M Ju PET CARETAKER Unavailable Unavailable Fons, M Ju PET CARETAKER Unavailable Unavailable Fons, M Ju PET CARETAKER Unavailable Unavailable Fons, M Ju PET CARETAKER Unavailable Unavailable Fons, M Ju PET CARETAKER Unavailable Unavailable Fons, M Ju PET CARETAKER Unavailable Unavailable Fons, M Ju PET CARETAKER Unavailable Unavailable Fons, M Ju PET CARETAKER Unavailable Unavailable Fons, M Ju PET CARETAKER Unavailable Unavailable Fons, M Ju PET CARETAKER Unavailable Unavailable Fons, M Ju PET CARETAKER Unavailable Unavailable Fons, M Ju PET CARETAKER Unavailable Unavailable Fons, M Ju PET CARETAKER Unavailable Unavailable Fons, M Ju PET CARETAKER Unavailable Unavailable Fons, M Ju PET CARETAKER Unavailable Unavailable Fons, M Ju PET CARETAKER Unavailable Unavailable Fons, M Ju PET CARETAKER Unavailable Unavailable Fons, M Ju PET CARETAKER Unavailable Unavailable Fons, M Ju PET CARETAKER Unavailable Unavailable Fons, M Ju PET CARETAKER Unavailable Unavailable Fons, M Ju PET CARETAKER Unavailable Unavailable Fons, M Ju PET CARETAKER Unavailable Unavailable Fons, M Ju PET CARETAKER Unavailable Unavailable Fons, M Ju PET CARETAKER Unavailable Unavailable Fons, M Ju PET CARETAKER Unavailable Unavailable Fons, M Ju PET CARETAKER Unavailable Unavailable Fons, M Ju PET CARETAKER Unavailable Unavailable Ashia Goldman MD Unavailable Unavailable Ashia Goldman MD Unavailable Unavailable Ashia Goldman MD Unavailable Unavailable Ashia Goldman MD Unavailable Unavailable Ashia Goldman MD Unavailable Unavailable Ashia Goldman MD Unavailable Unavailable Ashia Goldman MD Unavailable Unavailable Ashia Goldman MD Unavailable Unavailable Ashia Goldman MD Unavailable Unavailable Ashia Goldman MD Unavailable Unavailable Ashia Goldman MD Unavailable Unavailable Ashia Goldman MD Unavailable Unavailable Ashia Goldman MD Unavailable Unavailable Ashia Goldman MD Unavailable Unavailable Ashia Goldman MD Unavailable Unavailable Ashia Goldman MD Unavailable Unavailable Ashia Goldman MD Unavailable Unavailable Ashia Goldman MD Unavailable Unavailable Ashia Goldman MD Unavailable Unavailable Ashia Goldman MD Unavailable Unavailable Ashia Goldman MD Unavailable Unavailable Ashia Goldman MD Unavailable Unavailable Ashia Goldman MD Unavailable Unavailable Ashia Goldman MD Unavailable Unavailable Ashia Goldman MD Unavailable Unavailable Ashia Goldman MD Unavailable Unavailable Ashia Goldman MD Unavailable Unavailable Ashia Goldman MD Unavailable Unavailable Ashia Goldman MD Unavailable Unavailable Ashia Goldman MD Unavailable Unavailable Ashia Goldman MD Unavailable Unavailable Ashia Goldman MD Unavailable Unavailable Ashia Goldman MD Unavailable Unavailable Ashia Goldman MD Unavailable Unavailable Ashia Goldman MD Unavailable Unavailable Ashia Goldman MD Unavailable Unavailable Ashia Goldman MD Unavailable Unavailable Ashia Goldman MD Unavailable Unavailable Ashia Goldman MD Unavailable Unavailable Ashia Goldman MD Unavailable Unavailable Ashia Goldman MD Unavailable Unavailable Ashia Goldman MD Unavailable Unavailable Ashia Goldman MD Unavailable Unavailable Ashia Goldman MD Unavailable Unavailable Ashia Goldman MD Unavailable Unavailable Ashia Goldman MD Unavailable Unavailable Ashia Goldman MD Unavailable Unavailable Ashia Goldman MD Unavailable Unavailable Ashia Goldman MD Unavailable Unavailable Ashia Goldman MD Unavailable Unavailable Ashia Goldman MD Unavailable Unavailable Ashia Goldman MD Unavailable Unavailable Ashia Goldman MD Unavailable Unavailable Ashia Goldman MD Unavailable Unavailable Ashia Goldman MD Unavailable Unavailable Ashia Goldman MD Unavailable Unavailable Ashia Goldman MD Unavailable Unavailable Ashia Goldman MD Unavailable Unavailable REASON, L EDWARD DO Unavailable Unavailable REASON, L EDWARD DO Unavailable Unavailable REASON, L EDWARD DO Unavailable Unavailable REASON, L EDWARD DO Unavailable Unavailable REASON, L EDWARD DO Unavailable Unavailable REASON, L EDWARD DO Unavailable Unavailable REASON, L EDWARD DO Unavailable Unavailable REASON, L EDWARD DO Unavailable Unavailable REASON, L EDWARD DO Unavailable Unavailable REASON, L EDWARD DO Unavailable Unavailable REASON, L EDWARD DO Unavailable Unavailable REASON, L EDWARD DO Unavailable Unavailable REASON, L EDWARD DO Unavailable Unavailable REASON, L EDWARD DO Unavailable Unavailable REASON, L EDWARD DO Unavailable Unavailable REASON, L EDWARD DO Unavailable Unavailable REASON, L EDWARD DO Unavailable Unavailable REASON, L EDWARD DO Unavailable Unavailable REASON, L EDWARD DO Unavailable Unavailable REASON, L EDWARD DO Unavailable Unavailable REASON, L EDWARD DO Unavailable Unavailable REASON, L EDWARD DO Unavailable Unavailable REASON, L EDWARD DO Unavailable Unavailable REASON, L EDWARD DO Unavailable Unavailable REASON, L EDWARD DO Unavailable Unavailable REASON, L EDWARD DO Unavailable Unavailable REASON, L EDWARD DO Unavailable Unavailable REASON, L EDWARD DO Unavailable Unavailable REASON, L EDWARD DO Unavailable Unavailable REASON, L EDWARD DO Unavailable Unavailable REASON, L EDWARD DO Unavailable Unavailable REASON, L EDWARD DO Unavailable Unavailable REASON, L EDWARD DO Unavailable Unavailable REASON, L EDWARD DO Unavailable Unavailable REASON, L EDWARD DO Unavailable Unavailable REASON, L EDWARD DO Unavailable Unavailable REASON, L EDWARD DO Unavailable Unavailable REASON, L EDWARD DO Unavailable Unavailable REASON, L EDWARD DO Unavailable Unavailable REASON, L EDWARD DO Unavailable Unavailable REASON, L EDWARD DO Unavailable Unavailable REASON, L EDWARD DO Unavailable Unavailable REASON, L EDWARD DO Unavailable Unavailable REASON, L EDWARD DO Unavailable Unavailable REASON, L EDWARD DO Unavailable Unavailable REASON, L EDWARD DO Unavailable Unavailable REASON, L EDWARD DO Unavailable Unavailable REASON, L EDWARD DO Unavailable Unavailable REASON, L EDWARD DO Unavailable Unavailable REASON, L EDWARD DO Unavailable Unavailable REASON, L EDWARD DO Unavailable Unavailable REASON, L EDWARD DO Unavailable Unavailable REASON, L EDWARD DO Unavailable Unavailable REASON, L EDWARD DO Unavailable Unavailable REASON, L EDWARD DO Unavailable Unavailable REASON, L EDWARD DO Unavailable Unavailable REASON, L EDWARD DO Unavailable Unavailable REASON, L EDWARD DO Unavailable Unavailable REASON, L EDWARD DO Unavailable Unavailable REASON, L EDWARD DO Unavailable Unavailable REASON, L EDWARD DO Unavailable Unavailable REASON, L EDWARD DO Unavailable Unavailable REASON, L EDWARD DO Unavailable Unavailable REASON, L EDWARD DO Unavailable Unavailable Cougler, S Klever RN NEUROLOGY Unavailable Unavailable Cougler, S Klever RN NEUROLOGY Unavailable Unavailable Cougler, S Klever RN NEUROLOGY Unavailable Unavailable Cougler, S Klever RN NEUROLOGY Unavailable Unavailable Cougler, S Klever RN NEUROLOGY Unavailable Unavailable Cougler, S Klever RN NEUROLOGY Unavailable Unavailable Cougler, S Kleevr RN NEUROLOGY Unavailable Unavailable Cougler, S Klever RN NEUROLOGY Unavailable Unavailable Cougler, S Klever RN NEUROLOGY Unavailable Unavailable Cougler, S Klever RN NEUROLOGY Unavailable Unavailable Cougler, S Klever RN NEUROLOGY Unavailable Unavailable Cougler, S Klever RN NEUROLOGY Unavailable Unavailable Cougler, S Klever RN NEUROLOGY Unavailable Unavailable Cougler, S Klever RN NEUROLOGY Unavailable Unavailable Cougler, S Klever RN NEUROLOGY Unavailable Unavailable Cougler, S Klever RN NEUROLOGY Unavailable Unavailable Cougler, S Klever RN NEUROLOGY Unavailable Unavailable Cougler, S Klever RN NEUROLOGY Unavailable Unavailable Cougler, S Klever RN NEUROLOGY Unavailable Unavailable Cougler, S Klever RN NEUROLOGY Unavailable Unavailable Cougler, S Klever RN NEUROLOGY Unavailable Unavailable Cougler, S Klever RN NEUROLOGY Unavailable Unavailable Cougler, S Klever RN NEUROLOGY Unavailable Unavailable Cougler, S Klever RN NEUROLOGY Unavailable Unavailable Cougler, S Klever RN NEUROLOGY Unavailable Unavailable Cougler, S Klever RN NEUROLOGY Unavailable Unavailable Cougler, S Klever RN NEUROLOGY Unavailable Unavailable Cougler, S Klever RN NEUROLOGY Unavailable Unavailable Cougler, S Klever RN NEUROLOGY Unavailable Unavailable Cougler, S Klever RN NEUROLOGY Unavailable Unavailable Cougler, S Klever RN NEUROLOGY Unavailable Unavailable Cougler, S Klever RN NEUROLOGY Unavailable Unavailable Cougler, S Klever RN NEUROLOGY Unavailable Unavailable Cougler, S Klever RN NEUROLOGY Unavailable Unavailable Cougler, S Klever RN NEUROLOGY Unavailable Unavailable Cougler, S Klever RN NEUROLOGY Unavailable Unavailable Cougler, S Klever RN NEUROLOGY Unavailable Unavailable Cougler, S Klever RN NEUROLOGY Unavailable Unavailable Cougler, S Klever RN NEUROLOGY Unavailable Unavailable Helga Humphrey Unavailable Helga Humphrey Unavailable Helga Humphrey Unavailable Helga Humphrey Unavailable Helga Humphrey Unavailable + HumphreyHelga PA Unavailable + Humphrey, Helga Rogers PA Unavailable + Lemus, L Mini RPA Unavailable Unavailable Lemus, L Mini RPA Unavailable Unavailable Lemus, L Mini RPA Unavailable Unavailable Lemus, L Mini RPA Unavailable Unavailable Lemus, L Mini RPA Unavailable Unavailable Lemus, L Mini RPA Unavailable Unavailable Lemus, L Mini RPA Unavailable Unavailable Lemus, L Mini RPA Unavailable Unavailable Lemus, L Mini RPA Unavailable Unavailable Lemus, L Mini RPA Unavailable Unavailable Lemus, L Mini RPA Unavailable Unavailable Lemus, L Mini RPA Unavailable Unavailable Lemus, L Mini RPA Unavailable Unavailable Lemus, L Mini RPA Unavailable Unavailable Lemus, L Mini RPA Unavailable Unavailable Lemus, L Mini RPA Unavailable Unavailable Lemus, L Mini RPA Unavailable Unavailable Lemus, L Mini RPA Unavailable Unavailable Lemus, L Mini RPA Unavailable Unavailable Lemus, L Mini RPA Unavailable Unavailable Lemus, L Mini RPA Unavailable Unavailable Lemus, L Mini RPA Unavailable Unavailable Lemus, L Mini RPA Unavailable Unavailable Lemus, L Mini RPA Unavailable Unavailable Lemus, L Mini RPA Unavailable Unavailable Lemus, L Mini RPA Unavailable Unavailable Lemus, L Mini RPA Unavailable Unavailable Lemus, L Mini RPA Unavailable Unavailable Lemus, L Mini RPA Unavailable Unavailable Lemus, L Mini RPA Unavailable Unavailable Lemus, L Mini RPA Unavailable Unavailable Lemus, L Mini RPA Unavailable Unavailable COOK, B CASEY RN NEUROLOGY Unavailable Unavailable COOK, B CASEY RN NEUROLOGY Unavailable Unavailable COOK, B CASEY RN NEUROLOGY Unavailable Unavailable COOK, B CASEY RN NEUROLOGY Unavailable Unavailable COOK, B CASEY RN NEUROLOGY Unavailable Unavailable COOK, B CASEY RN NEUROLOGY Unavailable Unavailable COOK, B CASEY RN NEUROLOGY Unavailable Unavailable COOK, B CASEY RN NEUROLOGY Unavailable Unavailable COOK, B CASEY RN NEUROLOGY Unavailable Unavailable COOK, B CASEY RN NEUROLOGY Unavailable Unavailable COOK, B CASEY RN NEUROLOGY Unavailable Unavailable COOK, B CASEY RN NEUROLOGY Unavailable Unavailable COOK, B CASEY RN NEUROLOGY Unavailable Unavailable COOK, B CASEY RN NEUROLOGY Unavailable Unavailable COOK, B CASEY RN NEUROLOGY Unavailable Unavailable COOK, B CASEY RN NEUROLOGY Unavailable Unavailable COOK, B CASEY RN NEUROLOGY Unavailable Unavailable COOK, B CASEY RN NEUROLOGY Unavailable Unavailable COOK, B CASEY RN NEUROLOGY Unavailable Unavailable COOK, B CASEY RN NEUROLOGY Unavailable Unavailable COOK, B CASEY RN NEUROLOGY Unavailable Unavailable COOK, B CASEY RN NEUROLOGY Unavailable Unavailable COOK, B CASEY RN NEUROLOGY Unavailable Unavailable COOK, B CASEY RN NEUROLOGY Unavailable Unavailable COOK, B CASEY RN NEUROLOGY Unavailable Unavailable COOK, B CASEY RN NEUROLOGY Unavailable Unavailable COOK, B CASEY RN NEUROLOGY Unavailable Unavailable COOK, B CASEY RN NEUROLOGY Unavailable Unavailable COOK, B CASEY RN NEUROLOGY Unavailable Unavailable COOK, B CASEY RN NEUROLOGY Unavailable Unavailable COOK, B CASEY RN NEUROLOGY Unavailable Unavailable COOK, B CASEY RN NEUROLOGY Unavailable Unavailable COOK, B CASEY RN NEUROLOGY Unavailable Unavailable COOK, B CASEY RN NEUROLOGY Unavailable Unavailable COOK, B CASEY RN NEUROLOGY Unavailable Unavailable COOK, B CASEY RN NEUROLOGY Unavailable Unavailable COOK, B CASEY RN NEUROLOGY Unavailable Unavailable COOK, B CASEY RN NEUROLOGY Unavailable Unavailable COOK, B CASEY RN NEUROLOGY Unavailable Unavailable COOK, B CASEY RN NEUROLOGY Unavailable Unavailable COOK, B CASEY RN NEUROLOGY Unavailable Unavailable COOK, B CASEY RN NEUROLOGY Unavailable Unavailable COOK, B CASEY RN NEUROLOGY Unavailable Unavailable COOK, B CASEY RN NEUROLOGY Unavailable Unavailable COOK, B CASEY RN NEUROLOGY Unavailable Unavailable COOK, B CASEY RN NEUROLOGY Unavailable Unavailable COOK, B CASEY RN NEUROLOGY Unavailable Unavailable COOK, B CASEY RN NEUROLOGY Unavailable Unavailable COOK, B CASEY RN NEUROLOGY Unavailable Unavailable COOK, B CASEY RN NEUROLOGY Unavailable Unavailable COOK, B CASEY RN NEUROLOGY Unavailable Unavailable COOK, B CASEY RN NEUROLOGY Unavailable Unavailable COOK, B CASEY RN NEUROLOGY Unavailable Unavailable COOK, B CASEY RN NEUROLOGY Unavailable Unavailable COOK, B CASEY RN NEUROLOGY Unavailable Unavailable COOK, B CASEY RN NEUROLOGY Unavailable Unavailable COOK, B CASEY RN NEUROLOGY Unavailable Unavailable COOK, B CASEY RN NEUROLOGY Unavailable Unavailable COOK, B CASEY RN NEUROLOGY Unavailable Unavailable COOK, B CASEY RN NEUROLOGY Unavailable Unavailable COOK, B CASEY RN NEUROLOGY Unavailable Unavailable COOK, B CASEY RN NEUROLOGY Unavailable Unavailable COOK, B CASEY RN NEUROLOGY Unavailable Unavailable COOK, B CASEY RN NEUROLOGY Unavailable Unavailable Gordon, V RENEE PA-C Unavailable Unavailable Gordon, V RENEE PA-C Unavailable Unavailable Lee Ann, V RENEE PA-C Unavailable Unavailable Gordon, V RENEE PA-C Unavailable Unavailable Lee Ann, V RENEE PA-C Unavailable Unavailable Gordon, V RENEE PA-C Unavailable Unavailable Lee Ann, V RENEE PA-C Unavailable Unavailable Re-disclosure Warning The records that you are about to access may contain information from federally-assisted alcohol or drug abuse programs. If such information is present, then the following federally mandated warning applies: This information has been disclosed to you from records protected by federal confidentiality rules (42 CFR part 2). The federal rules prohibit you from making any further disclosure of this information unless further disclosure is expressly permitted by the written consent of the person to whom it pertains or as otherwise permitted by 42 CFR part 2. A general authorization for the release of medical or other information is NOT sufficient for this purpose. The Federal rules restrict any use of the information to criminally investigate or prosecute any alcohol or drug abuse patient.The records that you are about to access may contain highly sensitive health information, the redisclosure of which is protected by Article 27-F of the [facility] Public Health law. If you continue you may have access to information: Regarding HIV / AIDS; Provided by facilities licensed or operated by the [facility] Office of Mental Health; or Provided by the [facility] Office for People With Developmental Disabilities. If such information is present, then the following [facility] mandated warning applies: This information has been disclosed to you from confidential records which are protected by state law. State law prohibits you from making any further disclosure of this information without the specific written consent of the person to whom it pertains, or as otherwise permitted by law. Any unauthorized further disclosure in violation of state law may result in a fine or intermediate sentence or both. A general authorization for the release of medical or other information is NOT sufficient authorization for further disc losure. Allergies and Adverse Reactions Type Description Substance Reaction Status Data Source(s ) Drug Class NO KNOWN ALLERGIES NO KNOWN ALLERGIES [facility] Drug allergy Drug allergy No Known Allergies [facility] Family History Family Member Name Family Member Gender Family Member Status Date o f Status Description Data Source(s) Unknown Unknown Problem [facility] ([facility]) Unknown Female Problem [facility] Unknown Female Problem [facility] Unknown Female Problem [facility] Unknown Female Problem [facility] ([facility]) Unknown Female Problem [facility] ([facility]) Encounters Encounter Providers Location Date Indications Data Source(s ) Emergency Attender: Rogers CONDON ED-ED 021 02:56:00 PM EST - 03/22/2020 05:45:00 PM EST DIFFICULTY BREATHING DIARRHEA [facility] DIFFICULTY BREATHING DIARRHEA Patient discharged. Outpatient Attender: RENEE ALANIS-SJP.ROGER 12:00:00 AM EST - 03/17/2020 10:22:30 AM EST [facility] Unknown [address] [address] 03/09/2020 12:00:00 AM EST eCW1 ([facility]) Outpatient Attender: Mini Lemus RPA Abdifatah/[place]/Hardy/R eindl 01/14/2020 10:15:00 AM EST [facility] ([facility]) Outpatient Attender: CASEY GARCIA NP Physical Therapy 12/05/2019 1 1:45:00 AM EDT MEDENT ([facility]) Outpatient Attender: MOE CHAMPION DO ED-IMAGH 11/27 12:29:00 PM EDT - 11/28/2019 12:30:00 PM EDT PVD [facility] PVD Patient discharged. Outpatient Attender: Mini Lemus RPA Abdifatah/[place]/Hardy/R eindl 10/17/2019 10:30:00 AM EDT [facility] ([facility] [place] [address] [address] 09/03/2019 12:00:00 AM EDT eCW1 ([facility]) Outpatient Attender: Ashia ALANIS-SJP.ROGER 06/27 12:00:00 AM EDT - 07/16/2019 03:42:47 PM EDT [facility] [place] [address] [facility] [address] 07/08/2019 12:00:00 AM EDT eCW1 ([facility]) Outpatient Attender: Ju ALANIS-SJPVanitaROGER 0 12:00:00 AM EDT - 06/25/2019 11:02:29 AM EDT [facility] [place] [address] [facility] [address] 06/17/2019 12:00:00 AM EDT eCW1 ([facility]) Outpatient 06/15/2019 07:04:00 AM EDT [facility] [place] [address] [facility] [address] 05/29/2019 12:00:00 AM EDT eCW1 ([facility]) [facility] [address] [place] [address] 05/28/2019 12:00:00 AM EDT eCW1 (Formerly [facility]) Outpatient Attender: CASEY GARCIA NP Physical Therapy 05/07/2019 0 1:00:00 PM EDT MEDENT ([facility]) Outpatient Attender: Mini Gardiner/Shy/Hardy/R eindl 05/07/2019 11:00:00 AM EDT MEDENT ([facility]) Emergency Attender: Klever Vizcaino NP ED-ED 01:50:00 PM EST - 04/27/2019 02:52:00 PM EST [facility] FELL Patient discharged. Outpatient 03/07/2019 03:28:00 PM EST [facility] Outpatient Attender: Ashia Goldman MD SJP.[email or web address]-[email or web address].ROGER 01/27 12:00:00 AM EST - 02/14/2019 02:30:19 PM EST [facility] Outpatient Attender: Juanis Gardiner/Shy/Hardy/ Reindl 02/11/2019 02:30:00 PM EST [facility] ([place] [facility], ) Outpatient Attender: Ravindra Beth MD [facility] 11:22:00 AM EST - 01/31/2019 11:23:00 AM [facility] Patient discharged. Medications Medication Brand Name Start Date Product Form Dose Route Admi nistrative Instructions Pharmacy Instructions Status Indications Reaction Description Data Source(s) Amlodipine 5 MG Oral Tablet amLODIPine (NORVASC) 5 MG tablet amLODIPine (NORVASC) 5 MG tablet 03/10/2020 12:00:00 AM EST aborted 10mg daily [facility] sodium chloride 0.9 % SOLN 500 mL with h eparin (porcine) 1000 UNIT/ML SOLN 1,000 Units 10/16/2019 12:00:00 AM EDT active 3 (three) times a week [facility] Calcium Carbonate-Vit D-Min (CALCIUM 600+D3 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) 600-800 MG-UNIT TABS [id number] 09/18/2019 12:00:00 AM EDT 1 {tbl} Oral activ e Take 1 tablet by mouth [facility] Hydralazine Hydrochloride 50 MG Oral Tab let hydrALAZINE (APRESOLINE) 50 MG tablet hydrALAZINE (APRESOLINE) 50 MG tablet 07/04/2019 12:00:00 AM EDT 50 mg Oral active Take 50 mg by mouth 3 (three) times a day [facility] Amlodipine 10 MG Oral Tablet amLODIPine (NORVASC) 10 M G tablet amLODIPine (NORVASC) 10 MG tablet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 Date Data Source Comprehensive Metabolic Profile (CMP) 05/28/2019 12:00:00 AM EDT eCW1 ([facility]) Name Value Range Interpretation Code Description Data Liv rce(s) Supporting Document(s) 174 70-100 GLUCOSE, FASTING eCW1 (Critical access hospital) 32 7-18 BLOOD UREA NITROGEN eCW1 ([facility]) 137 136-145 SODIUM LEVEL eCW1 ([facility]) 7.76 0.55-1.30 CREATININE FOR GFR eCW1 ([facility]) 6.6 >39 GLOMERULAR FILTRATION RATE eCW 1 ([facility]) 8.9 8.8-10.2 CALCIUM LEVEL eCW1 ([facility]) 96 98-107 CHLORIDE LEVEL eCW1 ([facility]) 3.7 3.5-5.1 POTASSIUM SERUM eCW1 ([facility]) 36 21-32 CARBON DIOXIDE LEVEL eCW1 ([facility]) 64 45-117 ALKALINE PHOSPHATASE eCW1 ([facility]) 17 7-37 AST/SGOT eCW1 ([facility]) 18 12-78 ALT/SGPT eCW1 ([facility]) 3.6 3.2-5.2 ALBUMIN eCW1 ([facility]) 7.2 6.4-8.2 TOTAL PROTEIN eCW1 ([facility]) 0.5 0.2-1.0 BILIRUBIN,TOTAL eCW1 ([facility]) 1.00 1.00-1.93 ALBUMIN/GLOBULIN RATIO eCW1 ([facility]) ID Date Data Source CBC with Differential 05/28/2019 12:00:00 AM EDT eCW1 ([facility]) Name Value Range Interpretation Code Description Data Liv rce(s) Supporting Document(s) 4.22 4.00-5.40 RED BLOOD COUNT eCW1 ([facility]) 3.5 4.0-10.0 WHITE BLOOD COUNT eCW1 ([facility]) 89.8 80.0-96.0 MEAN CORPUSCULAR VOLUME e CW1 ([facility]) 37.9 36.0-47.0 HEMATOCRIT eCW1 (Critical access hospital) 10.9 12.0-15.5 HEMOGLOBIN eCW1 (Critical access hospital) 25.8 27.0-33.0 MEAN CORPUSCULAR HEMOGLOB IN eCW1 ([facility]) 28.8 32.0-36.5 MEAN CORPUSCULAR HGB CONC eCW1 ([facility]) 20.6 11.5-14.5 RED CELL DISTRIBUTION WID TH eCW1 ([facility]) 26.6 24.0-44.0 LYMPH % eCW1 ([facility]) 138 150-450 PLATELET COUNT, AUTOMATED eCW1 ([facility]) 12.6 0.0-5.0 MONO % eCW1 ([facility]) 56.5 36.0-66.0 NEUTROPHILS % eCW1 ([facility]) 2.0 1.5-8.5 NEUTROPHILS # eCW1 ([facility]) 3.4 0.0-3.0 EOS % eCW1 ([facility]) 0.6 0.0-1.0 BASO % eCW1 ([facility]) 0.4 0.0-0.8 MONO # eCW1 ([facility]) 0.9 1.5-5.0 LYMPH # eCW1 ([facility]) 0.0 0.0-0.2 BASO # eCW1 ([facility]) 0.1 0.0-0.5 EOS # eCW1 ([facility]) ID Date Data Source [id number] 05/21/2019 10:17:00 AM EDT [facility] Name Value Range Interpretation Code Description Data Liv rce(s) Supporting Document(s) Glucose [Mass/volume] in Capillary blood by Glucometer 116 mg/dL 83-110 Above high normal MEDENT ([facility]) ID Date Data Source [id number] 05/07/2019 01:02:00 PM EDT MEDENT ([facility]) Name Value Range Interpretation Code Description Data Liv rce(s) Supporting Document(s) Hemoglobin A1c/Hemoglobin.total in Blood 7.8 MEDENT ([facility]) Glucose [Mass/volume] in Serum or Plasma 370 MEDENT ([facility]) ID Date Data Source [id number] 04/29/2019 08:03:00 AM [facility] Imaging Services Department Imaging Report [address] [place] [address] %(RAD)RES..mtdd.print.filter("line") Name: RONNIE BRAN : 1945 Age/Sex: 74F Ordering Provider: Klever Vizcaino NP Med Rec #: [id number] Reg Status: [facility] Room #: Date of Service: 04/27/19 Report Number: [id number] cc:PCP None Send Report To: [id number] CT/CT Orbits No Contrast Reason for exam: s/p fall - c/o facial pain FINDINGS: The orbits are unremarkable. There is no evidence of bony fracture. Sinuses are unremarkable. The mastoid air cells are unremarkable. IMPRESSION: No evidence of orbital fracture. While performing the above CT exam, the following dose reduction techniques wereused: *Automated exposure control *Adjustment of the mA and/or kV according to patient size *Use of iterative reconstruction technique CT Dose in mGy: Contrast Agent: Amount in ml: Method of Administration: REPORT SIGNATURE ON FILE Reported By: Brendan Wade MD <Electronically signed by Brendan Wade MD> 04/29/19 1415 Dictation Date/Time: 04/27/19 1437 Transcribed Date/Time: 04/29/19 0803 Transcr iptionist: YULIYA Name Value Range Interpretation Code Description Data Liv rce(s) Supporting Document(s) ID Date Data Source [id number] 04/29/2019 07:54:00 AM [facility] Imaging Services Department Imaging Report [address], [place] [address] %(RAD)RES..mtdd.print.filter("line") Name: RONNIE BRAN : 1945 Age/Sex: 74F Ordering Provider: Klever Vizcaino NP Med Rec #: [id number] Reg Status: [facility] Room #: Date of Service: 04/27/19 Report Number: [id number] cc:PCP None Send Report To: [id number] CT/CT Head No Contrast Reason for exam: S/P fall FINDINGS: COMPARISON: Prior study 02/08/15 The ventricular system is normal. No evidence for parenchymal loss is noted. No evidence for masses or mass effect are identified. No evidence for subdural, epidural, or subarachnoid hemorrhage is noted. The bones and soft tissues also appear normal. IMPRESSION: UNREMARKABLE CT SCAN OF THE HEAD WITHOUT INTRAVENOUS CONTRAST. While performing the above CT exam, the following dose reduction techniques wereused: *Automated exposure control *Adjustment of the mA and/or kV according to patient size *Use of iterative reconstruction technique CT Dose in mGy: Contrast Agent: Amount in ml: Method of Administration: REPORT SIGNATURE ON FILE Reported By: Brendan Wade MD <Electronically signed by Brendan Wade MD> 04/29/19 1415 Dictation Date/Time: 04/27/19 1437 Transcribed Date/Time: 04/29/19 0754 [employer] Center Supervisor: YULIYA Name Value Range Interpretation Code Description Data Liv rce(s) Supporting Document(s) Procedure Social History Code Duration Value Status Description Data Source(s ) Alcohol intake 03/17/2020 12:00:00 AM EST No completed [facility] Cigarette pack-years 03/17/2020 12:00:00 AM EST UNK completed [facility] Cigarettes smoked current (pack per day) - Reported 03/17/19 21 12:00:00 AM EST UNK completed [facility] Smoking 03/17/2020 12:00:00 AM EST Former smoker completed Former smoker [facility] Smoking 02/04/2020 12:00:00 AM EST Patient is a former smoker completed Patient is a former smoker KEIRA ([facility], ) Smoking 12/05/2019 12:00:00 AM EDT Patient is a former smoker completed Patient is a former smoker MEDENT ([facility]) Vital Signs ID Date Data Source UNK Name Value Range Interpretation Code Description Data Source(s) Oxygen saturation in Arterial blood by Pulse oximetry 93 % 93 % [facility] Body mass index (BMI) [Ratio] 24.30 kg/m2 24.30 kg/m2 [facility] Body weight 66.225 kg 66.225 kg [facility] Body height 165.1 cm 165.1 cm [facility] Heart rate 70 /min 70 /min [facility] Diastolic blood pressure 70 mm[Hg] 70 mm[Hg] [facility] Systolic blood pressure 140 mm[Hg] 140 mm[Hg] [facility] Body surface area Derived from formula 1.76 m2 1.76 m2 [facility] Body weight 68.494 kg 68.494 kg [facility] [place] body weight 125 [lb_av] 125 [lb_av] MEDEN T ([facility], ) Body mass index (BMI) [Ratio] 25.1 kg/m2 25.1 k g/m2 [facility] ([facility]) Body weight 151.00 [lb_av] 151.00 [lb_av] MEDEN T ([facility]) Body height 65 [in_i] 65 [in_i] [facility] ([facility]) 5'5" Diastolic blood pressure 60 mm[Hg] 60 mm[Hg] [facility] ([facility]) Systolic blood pressure 120 mm[Hg] 120 mm[Hg] [facility] Body surface area Derived from formula 1.75 m2 1.75 m2 [facility] ([facility]) Body weight 68.040 kg 68.040 kg [facility] ([facility]) [place] body weight 125 [lb_av] 125 [lb_av] [facility] T ([facility]) Body mass index (BMI) [Ratio] 25.0 kg/m2 25.0 k g/m2 [facility] ([facility]) Body weight 150.00 [lb_av] 150.00 [lb_av] [facility] T ([facility]) Body height 65 [in_i] 65 [in_i] [facility] ([facility]) 5'5" Diastolic blood pressure 68 mm[Hg] 68 mm[Hg] [facility] ([facility]) Systolic blood pressure 138 mm[Hg] 138 mm[Hg] [facility] ([facility]) Oxygen saturation in Arterial blood by Pulse oximetry 9 % 9 % [facility] ([facility]) Body mass index (BMI) [Ratio] 26.2 kg/m2 26.2 k g/m2 [facility] ([facility]) Body weight 157.38 [lb_av] 157.38 [lb_av] MED[facility] T ([facility]) Body height 65 [in_i] 65 [in_i] [facility] ([facility]) 5'5" Heart rate 74 /min 74 /min [facility] ([facility]) Diastolic blood pressure 72 mm[Hg] 72 mm[Hg] [facility] ([facility]) Systolic blood pressure 126 mm[Hg] 126 mm[Hg] EDENT ([facility]) Body mass index (BMI) [Ratio] 24.6 kg/m2 24.6 k g/m2 [facility] ([facility]) Body weight 148.00 [lb_av] 148.00 [lb_av] MEDEN T ([facility]) Body height 65 [in_i] 65 [in_i] [facility] ([facility]) 5'5" Heart rate 76 /min 76 /min [facility] Diastolic blood pressure 74 mm[Hg] 74 mm[Hg] [facility] ([facility]) Systolic blood pressure 139 mm[Hg] 139 mm[Hg] M EDENT ([facility]) Body weight 67.133 kg 67.133 kg [facility]) [place] body weight 125 [lb_av] 125 [lb_av] MED[facility] T ([facility]) Diastolic blood pressure 74 mm[Hg] 74 mm[Hg] eCW1 ([facility]) Systolic blood pressure 190 mm[Hg] 190 mm[Hg] e CW1 ([facility]) Body temperature 97.9 [degF] 97.9 [degF] eCW1 ( [facility]) Respiratory rate 18 /min 18 /min eCW1 ([facility]) Heart rate 84 /min 84 /min eCW1 ([facility]) Body mass index (BMI) [Ratio] 25.12 kg/m2 25.12 kg/m2 eCW1 ([facility]) Body height 65 [in_us] 65 [in_us] eCW1 ([facility]) Body weight Measured 151 [lb_av] 151 [lb_av] eC W1 ([facility]) Oxygen saturation in Arterial blood by Pulse oximetry 90 % 90 % [facility] ([facility]) Body mass index (BMI) [Ratio] 25.1 kg/m2 25.1 k g/m2 [facility] ([facility]) Body weight 151.12 [lb_av] 151.12 [lb_av] MEDEN T ([facility]) Body height 65 [in_i] 65 [in_i] [facility] ([facility]) 5'5" Heart rate 59 /min 59 /min [facility] Diastolic blood pressure 76 mm[Hg] 76 mm[Hg] [facility] ([facility]) Systolic blood pressure 118 mm[Hg] 118 mm[Hg] M EDENT ([facility]) Body weight 68.040 kg 68.040 kg [facility] ([facility]) Body mass index (BMI) [Ratio] 25.0 kg/m2 25.0 k g/m2 [facility] ([facility]) Body weight 150.00 [lb_av] 150.00 [lb_av] MEDEN T ([facility]) Body height 65 [in_i] 65 [in_i] [facility] ([facility]) 5'5" Diastolic blood pressure 96 mm[Hg] 96 mm[Hg] [facility] ([facility]) Systolic blood pressure 156 mm[Hg] 156 mm[Hg] [facility] ([facility]) ID Date Data Source [id number] 03/23/2020 10:17:00 AM EST [facility] spital Name Value Range Interpretation Code Description Data Source(s) Weight Measurement Method 8 8 [facility] 2320 [facility]20 [facility] Source 7 7 [facility] Temperature 97.5 97.5 [facility] spital Respiratory Effort 1 1 [facility] Respiratory Rate 17 17 [facility] Pulse Assessment Method 4 4 G [facility] Pulse Rate 72 72 [facility] pital Height 65 65 [facility] Blood Pressure 174/96 174/96 [facility] Weight Measurement Method 8 8 [facility] Weight 2320 2320 [facility] pital Temperature Source 7 7 [facility] Temperature 97.5 97.5 [facility] sp[facility] Respiratory Effort 1 1 [facility] Respiratory Rate 17 17 [facility] Pulse Assessment Method 4 4 G [facility] Pulse Rate 80 80 [facility] pital Height 65 65 [facility] Blood Pressure 174/96 174/96 [facility] Weight Measurement Method 8 8 [facility] Weight 2320 2320 [facility] pital Temperature Source 7 7 [facility] Temperature 97.5 97.5 [facility] spital Respiratory Effort 1 1 [facility] Respiratory Rate 17 17 [facility] Pulse Assessment Method 4 4 G [facility] Pulse Rate 80 80 [facility] pital Height 65 65 [facility] Blood Pressure 174/96 174/96 [facility] ID Date Data Source [id number] 05/31/2019 12:48:00 PM EDT [facility] Name Value Range Interpretation Code Description Data Source(s) Weight Measurement Method 8 8 [facility] Weight 2416 2416 [facility] pital Temperature Source 7 7 [facility] Temperature 97.9 97.9 [facility] spital Respiratory Effort 1 1 [facility] Respiratory Rate 16 16 [facility] Pulse Assessment Method 4 4 G [facility] Pulse Rate 82 82 [facility] pital Height 65 65 [facility] 155/84 155/84 [facility] Weight Measurement Method 8 8 [facility] Weight 2416 2416 [facility] pital Temperature Source 7 7 [facility] Temperature 98 98 [facility] spital Respiratory Effort 1 1 [facility] Respiratory Rate 18 18 [facility] Pulse Assessment Method 4 4 G [facility] Pulse Rate 83 83 [facility] pital Height 65 65 [facility] Pressure 163/99 163/99 [facility] Patient Treatment Plan of Care Planned Activity Planned Date Details Description Data Source (s) Amlodipine 5 MG Oral Tablet 03/10/2020 12:00:00 AM EST [facility] sodium chloride 0.9 % SOLN 500 mL with h eparin (porcine) 1000 UNIT/ML SOLN 1,000 Units 10/16/2019 12:00:00 AM EDT [facility] Calcium Carbonate-Vit D-Min (CALCIUM 600+D3 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) 600-800 MG-UNIT TABS 09/18/2019 12:00:00 AM EDT [facility] Hydralazine Hydrochloride 50 MG Oral Tablet 07/04/2019 12:00:00 AM EDT [facility] Amlodipine 10 MG Oral Tablet 07/04/2019 12:00:00 AM EDT [facility] Labetalol hydrochloride 100 MG Oral Tablet 06/29/2019 12:00:00 AM E DT [facility] Pravastatin Sodium 80 MG Oral Tablet 06/20/2019 12:00:00 AM EDT [facility] sevelamer carbonate 800 MG Oral Tablet 06/18/2019 12:00:00 AM EDT [facility] Lidocaine 25 MG/ML / Prilocaine 25 MG/ML Topical Cream 06/11/2019 12:00:00 AM EDT [facility] Lancets Ultra Thin - 05/29/2019 12:00:00 AM EDT eCW1 ([facility]) Lancets Ultra Thin - 05/29/2019 12:00:00 AM EDT eCW1 ([facility]) gabapentin 100 MG Oral Capsule 05/28/2019 12:00:00 AM EDT [facility] 3 ML Insulin Glargine 100 UNT/ML Pen Injector [Lantus] 05/28/2019 12:00:00 AM EDT [facility] gabapentin 100 MG Oral Capsule 05/28/2019 12:00:00 AM EDT eCW1 ([facility]) carvedilol 12.5 MG Oral Tablet 05/28/2019 12:00:00 AM EDT eCW1 ([facility]) 3 ML Insulin Glargine 100 UNT/ML Pen Injector [Lantus] 05/28/2019 12:00:00 AM EDT eCW1 ([facility]) Amlodipine 5 MG Oral Tablet 05/28/2019 12:00:00 AM EDT eCW1 ([facility]) Aspirin 81 MG Chewable Tablet 05/28/2019 12:00:00 AM EDT eCW1 ([facility]) Hydralazine Hydrochloride 25 MG Oral Tablet 05/28/2019 12:00:00 AM EDT eCW1 ([facility]) Pravastatin Sodium 80 MG Oral Tablet 05/28/2019 12:00:00 AM EDT eCW1 ([facility]) Pravastatin Sodium 80 MG Oral Tablet 05/28/2019 12:00:00 AM EDT eCW1 ([facility]) carvedilol 12.5 MG Oral Tablet 05/28/2019 12:00:00 AM EDT eCW1 ([facility]) 3 ML Insulin Glargine 100 UNT/ML Pen Injector [Lantus] 05/28/2019 12:00:00 AM EDT eCW1 ([facility]) Amlodipine 5 MG Oral Tablet 05/28/2019 12:00:00 AM EDT eCW1 ([facility]) Aspirin 81 MG Chewable Tablet 05/28/2019 12:00:00 AM EDT eCW1 ([facility]) gabapentin 100 MG Oral Capsule 05/28/2019 12:00:00 AM EDT eCW1 ([facility]) Hydralazine Hydrochloride 25 MG Oral Tablet 05/28/2019 12:00:00 AM EDT eCW1 ([facility]) Aspirin 81 MG Oral Tablet [facility] POLYETHYLENE GLYCOL 3350 142 MG/ML Oral Solution [facility] Tetrahydrozoline hydrochloride 0.5 MG/ML Ophthalmic Solution [facility] 1 ML heparin sodium, porcine 1000 UNT/ML Injection [facility] Naphazoline-Pheniramine (VISINE-A OP) [facility]
--- OUTSIDE RECORDS SUMMARY | 2020-03-30 20:12 | CCD ---
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 [id number] Type 2 diabetes rosemarie itus without complication, unspecified whether half-way insulin use Problem 05/29/2019 12:00:00 AM EDT eCW 1 ([facility]) E78.5 [id number] Hyperlipidemia, unspecified hyperlipidemi a type Problem 05/28/2019 12:00:00 AM EDT eCW1 ([facility]) I10 [id number] Hypertension, unspecified type Problem 05/27 12:00:00 AM EDT eCW1 ([facility]) E08.8 4817625 Diabetes mellitus du e to underlying condition with unspecified complications Problem 05/28/2019 12:00:00 AM EDT eCW1 ([facility]) E78.5 [id number] Hyperlipidemia, unspecified hyperlipidemi a type Problem 05/28/2019 12:00:00 AM EDT eCW1 ([facility]) I10 12516600 Hypertension, unspecified type Problem 05/27 12:00:00 AM EDT eCW1 ([facility]) E08.8 1777654 Diabetes mellitus du e to underlying condition with unspecified complications Problem 05/28/2019 12:00:00 AM EDT eCW1 ([facility]) I25.10 Coronary artery disease Coronary artery disease 919045 02/14/2019 12:00:00 AM [facility] E11.9 Diabetes mellitus Diabetes mellitus [id number] 02/14/2019 12:00:00 AM [facility] I10 Essential hypertension Essential hypertension 52121601 02/14/2019 12:00:00 AM [facility] E78.00 Hypercholesterolemia Hypercholesterolemia 44226287 02/14/2019 12:00:00 AM [facility] I25.5 Ischemic cardiomyopathy Ischemic cardiomyopathy Diagno sis 03/17/2020 09:08:40 AM [facility] I73.89 Other specified peripheral vascular dise ases OTHER SPECIFIED PERIPHERAL VASCULAR DISEASES Diagnosis 11/28/2019 12:29:00 PM EDT Meri rush E78.00 Pure hypercholesterolemia, unspecified P ure hypercholesterolemia, unspecified Diagnosis 07/16/2019 02:37:19 PM EDT [facility] Z99.2 Dependence on renal dialysis Dependence on renal dialy sis Diagnosis 07/16/2019 02:37:19 PM EDT [facility] N18.6 End stage renal disease End stage renal disease Diagno sis 07/16/2019 02:37:19 PM EDT [facility] I10 Essential (primary) hypertension Essential (primary) h ypertension Diagnosis 07/16/2019 02:37:19 PM EDT [facility] 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 Atherosclerosis of coronary artery bypas Diagnosis 07/16/2019 02:37:19 PM EDT [facility] Z95.1 Presence of aortocoronary bypass graft P resence of aortocoronary bypass graft Diagnosis 07/16/2019 02:37:19 PM EDT [facility] Y92.[address] in single- family (private) house as the place of occurrence of the external cause UNSP PLACE IN SINGLE-FAMILY (PRIVATE) HO USE PLACE Diagnosis 04/27/2019 01:50:[address] [facility] spital W01.0XXA Fall on same level from slip ping, tripping and stumbling without subsequent striking against object, initial encounter FALL SAME LEV FROM SLIP/TRIP W/O STRIKE AGAINST OBJECT, INIT Diagnosis 04/27/2019 01:50:0 0 PM [facility] Z95.0 Presence of cardiac pacemaker 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 Diagnosis 04/27/2019 01:50:00 PM [facility] Z95.1 Presence of aortocoronary bypass graft P RESENCE OF AORTOCORONARY BYPASS GRAFT Diagnosis 04/27/2019 01:50:[address] [facility] spital Z86.73 Personal history of transien t ischemic attack (TIA), and cerebral infarction without residual deficits PRSNL HX OF TIA (TIA), AND CEREB INFRC W /O RESID DEFICITS Diagnosis 04/27/2019 01:50:00 PM [facility] spital I25.2 Old myocardial infarction OLD MYOCARDIAL INFARCTION Di agnosis 04/27/2019 01:50:00 PM [facility] Z99.2 Dependence on renal dialysis DEPENDENCE ON RENAL DIALY SIS Diagnosis 04/27/2019 01:50:00 PM [facility] M81.8 Other osteoporosis without current patho logical fracture OTHER OSTEOPOROSIS WITHOUT CURRENT PATHOLOGICAL FRACTURE Diagnosis 01:50:00 PM [facility] N18.5 Chronic kidney disease, stage 5 CHRONIC KIDNEY DISEASE , STAGE 5 Diagnosis 04/27/2019 01:50:00 PM [facility] I12.0 Hypertensive chronic kidney disease with stage 5 chronic kidney disease or end stage renal disease HYP CHR KIDNEY DISEASE W STAGE 5 CHR KID CATA DISEASE OR ESRD Diagnosis 04/27/2019 01:50:00 PM [facility] sevental G44.319 Acute post-traumatic headache, not intra ctable ACUTE POST-TRAUMATIC HEADACHE, NOT INTRACTABLE Diagnosis 04/27/2019 01:50:00 PM [facility] S00.83XA Contusion of other part of head, initial encounter CONTUSION OF OTHER PART OF HEAD, INITIAL ENCOUNTER Diagnosis 04/27/2019 01:50:00 PM [facility] 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 of 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 Diagnosis 02/14/2019 01:18:25 PM [facility] E11.59 Type 2 diabetes mellitus with other circ ulatory complications Type 2 diabetes mellitus with other circ Diagnosis 02/14/2019 01:18:25 PM [facility] I63.9 Cerebral infarction, unspecified Cerebral infarc tion, unspecified Diagnosis 02/14/2019 01:18:25 PM [facility] Surgeries/Procedures Procedure Description Date Indications Data Source(s) ECG ROUTINE ECG W/LEAST 12 LDS W/I&R POCT AMB EKG Routine 03/17/2020 12:45 PM EST Ischemic cardiomyopathy EF 35% 03/17/2020 05:45:00 PM EST Is chemic cardiomyopathy EF 35% [facility] Ischemic cardiomyopathy EF 35% [facility] W/ Transluminal Balloon Angioplasty, Periph eral 10/18/2019 12:00:00 AM EDT [facility] ([facility] Translum Balloon Angio Central Dial Segment Through Dialys C ircui 10/18/2019 12:00:00 AM EDT [facility] ([facility]) Moderate Sedation Services; Same Phys Intl 15 Mins; PT >= 5 Years 10/18/2019 12:00:00 AM EDT [facility] ([facility]) Dialysis Circuit W/ Transluminal Balloon Angioplasty, Perip era 05/21/2019 12:00:00 AM EDT [facility] ([facility]) Translum Balloon Angio Central Dial Segment Through Dialys C ircui 05/21/2019 12:00:00 AM EDT [facility] ([facility]) Moderate Sedation Services; Same Phys Intl 15 Mins; PT >= 5 Years 05/21/2019 12:00:00 AM EDT [facility] ([facility]) CT ORBIT SELLA/POST FOSSA/EAR W/O CONTRAST MATRL CT ORBIT/EA R/FOSSA W/O DYE 04/27/2019 12:00:00 AM [facility] CT HEAD/BRAIN W/O CONTRAST MATERIAL CT HEAD/BRAIN W/O DYE 12:00:00 AM [facility] EMERGENCY DEPARTMENT VISIT HIGH/URGENT SEVERITY EMERGENCY DE PT VISIT 04/27/2019 12:00:00 AM [facility] Dialysis Circuit W/ Transluminal Balloon Angioplasty, Perip eral 02/21/2019 12:00:00 AM EST [facility] ([facility]) Moderate Sedation Services; Same Phys Intl 15 Mins; PT >= 5 Years 02/21/2019 12:00:00 AM EST [facility] ([facility]) Results ID Date Data Source [id number] 03/22/2020 04:40:00 PM EST [facility] Name Value Range Interpretation Code Description Data Liv rce(s) Supporting Document(s) Respiratory specimen severe acute respir atory syndrome coronavirus 2 (SARS-CoV-2) RNA Not Detected [facility] This lab was ordered by Meri crowell and reported by . ID Date Data Source [id number] 03/22/2020 04:31:00 PM EST [facility] Imaging Services Department Imaging Report [address], [place] [address] %(RAD)RES..mtdd.print.filter("line") Name: RONNIE BRAN : 1945 Age/Sex: 75F Ordering Provider: TAURUS Meade Med Rec #: [id number] Reg Status: COUNT INCLUDES THE [facility] Room #: Date of Service: 03/22/20 Report Number: [id number] cc:Moe Alvarez Reason, DO Send Report To: [id number] CT/CT Abdomen & Pelvis No Contras Reason [...] Date/Time: 03/22/20 1556 Transcribed Date/Time: 03/22/20 1631 Anesthesiology Physician: WAYNE Name Value Range Interpretation Code Description Data Liv rce(s) Supporting Document(s) ID Date Data Source [id number] 03/22/2020 04:37:00 PM [facility] Imaging Services Department Imaging Report [address], [place] [address] %(RAD)RES..mtdd.print.filter("line") Name: RONNIE BRAN : 1945 Age/Sex: 75F Ordering Provider: TAURUS Meade Med Rec #: [id number] Reg Status: COUNT INCLUDES THE [facility] Room #: Date of Service: 03/22/20 Report Number: [id number] cc:Moe Champion, DO; TAURUS Meade Send Report To: [id number] XRP/XR Chest Xray Portable Reason for exam: [...] Date/Time: 03/22/20 1620 Transcribed Date/Time: 03/22/20 1637 Anesthesiology Physician: WAYNE Name Value Range Interpretation Code Description Data Liv rce(s) Supporting Document(s) ID Date Data Source [id number] 03/02/2020 05:07:00 PM EST [facility] Name Value Range Interpretation Code Description Data Liv rce(s) Supporting Document(s) SARS coronavirus 2 RNA [Presence] in Res piratory specimen by ZANE with probe detection [facility] This lab was ordered by [facility] a nd reported by [facility]. ID Date Data Source [id number] 01/28/2020 12:17:00 PM EST [facility] ([facility]) Name Value Range Interpretation Code Description Data Liv rce(s) Supporting Document(s) Glucose [Mass/volume] in Capillary blood by Glucometer 132 mg/dL 83-110 Above high normal [facility] ([facility]) ID Date Data Source [id number] 01/28/2020 08:14:00 AM EST [facility] ([facility]) Name Value Range Interpretation Code Description Data Liv rce(s) Supporting Document(s) Glucose [Mass/volume] in Capillary blood by Glucometer 155 mg/dL 83-110 Above high normal [facility] ([facility]) ID Date Data Source [id number] 01/21/2020 01:04:00 PM EST [facility] ([facility]) Name Value Range Interpretation Code Description Data Liv rce(s) Supporting Document(s) Glucose [Mass/volume] in Capillary blood by Glucometer 172 mg/dL 83-110 Above high normal [facility] ([facility]) ID Date Data Source [id number] 12/05/2019 12:03:00 PM EDT [facility] ([facility]) Name Value Range Interpretation Code Description Data Liv rce(s) Supporting Document(s) Hemoglobin A1c/Hemoglobin.total in Blood Laboratory test result [facility] ([facility]) Glucose [Mass/volume] in Serum or Plasma 382 [facility] ([facility]) ID Date Data Source [id number] 11/29/2019 06:27:00 AM EDT [facility] Imaging Services Department Imaging Report [address] [place] [id number] %(RAD)RES..mtdd.print.filter("line") Name: RONNIE BRAN: 1945 Age/Sex: 74F Ordering Provider: Moe Champion DO Med Rec #: [id number] Reg Status: DEP REF Room #: Date of Service: 11/28/19 Report Number: [id number] cc:Moe Alvarez Reason DO Send Report To: [id number] US/US Dup Lower Ext Artery Bilat Reason [...] Higgins MD> 11/29/19 1051 Dictation Date/Time: 11/28/19 1280 Transcribed Date/Time: 11/29/19 2002 Anesthesiology Physician: VINCENZO Name Value Range Interpretation Code Description Data Liv rce(s) Supporting Document(s) ID Date Data Source LIVER PROFILE 05/28/2019 12:00:00 AM EDT eCW1 ([facility]) Name Value Range Interpretation Code Description Data Liv rce(s) Supporting Document(s) 15 7-37 AST/SGOT eCW1 ([facility]) 17 12-78 ALT/SGPT eCW1 ([facility]) 0.1 0.0-0.2 BILIRUBIN,DIRECT eCW1 ([facility]) 66 45-117 ALKALINE PHOSPHATASE eCW1 ([facility]) 7.4 6.4-8.2 TOTAL PROTEIN eCW1 ([facility]) 0.5 0.2-1.0 BILIRUBIN,TOTAL eCW1 ([facility]) 3.6 3.2-5.2 ALBUMIN eCW1 ([facility]) 0.95 1.00-1.93 ALBUMIN/GLOBULIN RATIO eCW1 ([facility]) ID Date Data Source LIPID PANEL (CARDIAC RISK) 05/28/2019 12:00:00 AM EDT eCW1 ( [facility]) Name Value Range Interpretation Code Description Data Liv rce(s) Supporting Document(s) Triglyceride [Mass/volume] in Serum or Plasma by calculation 227 <150 TRIGLYCERIDES LEVEL eCW1 ([facility]) Cholesterol [Moles/volume] in Serum or Plasma 227 <200 CHOLESTEROL LEVEL eCW1 ([facility]) 187 NON-HDL-C eCW1 ([facility]) Cholesterol in HDL [Moles/volume] in Serum or Plasma 40 >40 HDL CHOLESTEROL eCW1 ([facility]) Cholesterol in LDL [Mass/volume] in Serum or Plasma by calculation 142 <100 LDL CHOLESTEROL eCW1 ([facility]) 5.675 <5 CHOLESTEROL RISK RATIO eCW1 ([facility]) ID Date Data Source [id number] 05/28/2019 12:00:00 AM EDT eCW1 ([facility]) Name Value Range Interpretation Code Description Data Liv rce(s) Supporting Document(s) Hemoglobin A1c/Hemoglobin.total in Blood 8.9 HEMOGLOBIN A1c eCW1 ([facility]) ID Date Data Source Comprehensive Metabolic Profile (CMP) 05/28/2019 12:00:00 AM EDT eCW1 ([facility]) Name Value Range Interpretation Code Description Data Liv rce(s) Supporting Document(s) 174 70-100 GLUCOSE, FASTING eCW1 ([facility]) 32 7-18 BLOOD UREA NITROGEN eCW1 ([facility]) 137 136-145 SODIUM LEVEL eCW1 ([facility]) 7.76 0.55-1.30 CREATININE FOR GFR eCW1 ([facility]) 6.6 >39 GLOMERULAR FILTRATION RATE eCW 1 ([facility]) 8.9 8.8-10.2 CALCIUM LEVEL eCW1 ([facility]) 96 98-107 CHLORIDE LEVEL eCW1 ([facility]) 3.7 3.5-5.1 POTASSIUM SERUM eCW1 ([facility]) 36 21-32 CARBON DIOXIDE LEVEL eCW1 ([facility]) 64 45-117 ALKALINE PHOSPHATASE eCW1 ([facility]) 17 7-37 AST/SGOT eCW1 ([facility]) 18 12-78 ALT/SGPT eCW1 ([facility]) 3.6 3.2-5.2 ALBUMIN eCW1 ([facility]) 7.2 6.4-8.2 TOTAL PROTEIN eCW1 ([facility]) 0.5 0.2-1.0 BILIRUBIN,TOTAL eCW1 ([facility]) 1.00 1.00-1.93 ALBUMIN/GLOBULIN RATIO eCW1 ([facility]) ID Date Data Source CBC with Differential 05/28/2019 12:00:00 AM EDT eCW1 ([facility]) Name Value Range Interpretation Code Description Data Liv rce(s) Supporting Document(s) 4.22 4.00-5.40 RED BLOOD COUNT eCW1 ([facility]) 3.5 4.0-10.0 WHITE BLOOD COUNT eCW1 ([facility]) 89.8 80.0-96.0 MEAN CORPUSCULAR VOLUME e CW1 ([facility]) 37.9 36.0-47.0 HEMATOCRIT eCW1 ([facility]) 10.9 12.0-15.5 HEMOGLOBIN eCW1 ([facility]) 25.8 27.0-33.0 MEAN CORPUSCULAR HEMOGLOB IN eCW1 ([facility]) 28.8 32.0-36.5 MEAN CORPUSCULAR HGB CONC eCW1 ([facility]) 20.6 11.5-14.5 RED CELL DISTRIBUTION WID TH eCW1 ([facility]) 26.6 24.0-44.0 LYMPH % eCW1 ([facility]) 138 150-450 PLATELET COUNT, AUTOMATED eCW1 ([facility]) 12.6 0.0-5.0 MONO % eCW1 ([facility]) 56.5 36.0-66.0 NEUTROPHILS % eCW1 ([facility]) 2.0 1.5-8.5 NEUTROPHILS # eCW1 ([facility]) 3.4 0.0-3.0 EOS % eCW1 ([facility]) 0.6 0.0-1.0 BASO % eCW1 ([facility]) 0.4 0.0-0.8 MONO # eCW1 ([facility]) 0.9 1.5-5.0 LYMPH # eCW1 ([facility]) 0.0 0.0-0.2 BASO # eCW1 ([facility]) 0.1 0.0-0.5 EOS # eCW1 ([facility]) ID Date Data Source [id number] 05/21/2019 10:17:00 AM EDT [facility] Name Value Range Interpretation Code Description Data Liv rce(s) Supporting Document(s) Glucose [Mass/volume] in Capillary blood by Glucometer 116 mg/dL 83-110 Above high normal [facility] ([facility]) ID Date Data Source [id number] 05/07/2019 01:02:00 PM EDT [facility] ([facility]) Name Value Range Interpretation Code Description Data Liv rce(s) Supporting Document(s) Hemoglobin A1c/Hemoglobin.total in Blood 7.8 [facility] ([facility]) Glucose [Mass/volume] in Serum or Plasma 370 [facility]ENT ([facility]) ID Date Data Source [id number] 04/29/2019 08:03:00 AM [facility] Imaging Services Department Imaging Report [address] [place] [address] %(RAD)RES..mtdd.print.filter("line") Name: RONNIE BRAN : 1945 Age/Sex: 74F Ordering Provider: Klever Vizcaino NP Med Rec #: [id number] Reg Status: COUNT INCLUDES THE [facility] Room #: Date of Service: 04/27/19 Report Number: [id number] cc:PCP None Send Report To: [id number] CT/CT Orbits No Contrast Reason for exam: [...] rce(s) Supporting Document(s) ID Date Data Source [id number] 04/29/2019 07:54:00 AM [facility] Imaging Services Department Imaging Report [address], [place] [address] %(RAD)RES..mtdd.print.filter("line") Name: RONNIE BRAN : 1945 Age/Sex: 74F Ordering Provider: Klever Vizcaino NP Med Rec #: [id number] Reg Status: COUNT INCLUDES THE [facility] Room #: Date of Service: 04/27/19 Report Number: [id number] cc:PCP None Send Report To: [id number] CT/CT Head No Contrast Reason for exam: [...] Date/Time: 04/27/19 1437 Transcribed Date/Time: 04/29/19 0754 Anesthesiology Physician: YULIYA Name Value Range Interpretation Code Description Data Liv rce(s) Supporting Document(s) Procedure Social History Code Duration Value Status Description Data Source(s ) Alcohol intake 03/17/2020 12:00:00 AM EST No completed [facility] Cigarette pack-years 03/17/2020 12:00:00 AM EST UNK completed [facility] Cigarettes smoked current (pack per day) - Reported 03/17/19 21 12:00:00 AM EST UNK completed [facility] Smoking 03/17/2020 12:00:00 AM EST Former smoker completed Former smoker [facility] Smoking 02/04/2020 12:00:00 AM EST Patient is a former smoker completed Patient is a former smoker KEIRA ([facility], ) Smoking 12/05/2019 12:00:00 AM EDT Patient is a former smoker completed Patient is a former smoker [facility] ([facility]) Vital Signs ID Date Data Source UNK Name Value Range Interpretation Code Description Data Source(s) Oxygen saturation in Arterial blood by Pulse oximetry 93 % 93 % [facility] Body mass index (BMI) [Ratio] 24.30 kg/m2 24.30 kg/m2 [facility] Body weight 66.225 kg 66.225 kg [facility] Body height 165.1 cm 165.1 cm [facility] Heart rate 70 /min 70 /min [facility] Diastolic blood pressure 70 mm[Hg] 70 mm[Hg] [facility] Systolic blood pressure 140 mm[Hg] 140 mm[Hg] S [facility] Body surface area Derived from formula 1.76 m2 1.76 m2 [facility] Body weight 68.494 kg 68.494 kg [facility] ([facility], ) [place] body weight 125 [lb_av] 125 [lb_av] MEDEN T ([facility], ) Body mass index (BMI) [Ratio] 25.1 kg/m2 25.1 k g/m2 [facility] ([facility]) Body weight 151.00 [lb_av] 151.00 [lb_av] MED[facility] T ([facility]) Body height 65 [in_i] 65 [in_i] [facility] ([facility]) 5'5" Diastolic blood pressure 60 mm[Hg] 60 mm[Hg] [facility] ([facility]) Systolic blood pressure 120 mm[Hg] 120 mm[Hg] [facility] Body surface area Derived from formula 1.75 m2 1.75 m2 [facility] ([facility]) Body weight 68.040 kg 68.040 kg [facility] ([facility]) [place] body weight 125 [lb_av] 125 [lb_av] MED[facility] T ([facility]) Body mass index (BMI) [Ratio] 25.0 kg/m2 25.0 k g/m2 [facility] ([facility]) Body weight 150.00 [lb_av] 150.00 [lb_av] [facility] T ([facility]) Body height 65 [in_i] 65 [in_i] [facility] ([facility]) 5'5" Diastolic blood pressure 68 mm[Hg] 68 mm[Hg] [facility] ([facility]) Systolic blood pressure 138 mm[Hg] 138 mm[Hg] [facility] ([facility]) Oxygen saturation in Arterial blood by Pulse oximetry 9 % 9 % [facility] ([facility]) Body mass index (BMI) [Ratio] 26.2 kg/m2 26.2 k g/m2 [facility] ([facility]) Body weight 157.38 [lb_av] 157.38 [lb_av] [facility] T ([facility]) Body height 65 [in_i] 65 [in_i] [facility] ([facility]) 5'5" Heart rate 74 /min 74 /min [facility] ([facility]) Diastolic blood pressure 72 mm[Hg] 72 mm[Hg] [facility] ([facility]) Systolic blood pressure 126 mm[Hg] 126 mm[Hg] [facility] ([facility]) Body mass index (BMI) [Ratio] 24.6 kg/m2 24.6 k g/m2 [facility] ([facility]) Body weight 148.00 [lb_av] 148.00 [lb_av] MED[facility] T ([facility]) Body height 65 [in_i] 65 [in_i] [facility] ([facility]) 5'5" Heart rate 76 /min 76 /min [facility] Diastolic blood pressure 74 mm[Hg] 74 mm[Hg] [facility] ([facility]) Systolic blood pressure 139 mm[Hg] 139 mm[Hg] M EDENT ([facility]) Body weight 67.133 kg 67.133 kg [facility]) [place] body weight 125 [lb_av] 125 [lb_av] MEDEN T ([facility]) Diastolic blood pressure 74 mm[Hg] 74 mm[Hg] eCW1 ([facility]) Systolic blood pressure 190 mm[Hg] 190 mm[Hg] e CW1 ([facility]) Body temperature 97.9 [degF] 97.9 [degF] eCW1 ( [facility]) Respiratory rate 18 /min 18 /min eCW1 ([facility]) Heart rate 84 /min 84 /min eCW1 ([facility]) Body mass index (BMI) [Ratio] 25.12 kg/m2 25.12 kg/m2 eCW1 ([facility]) Body height 65 [in_us] 65 [in_us] eCW1 ([facility]) Body weight Measured 151 [lb_av] 151 [lb_av] eC W1 ([facility]) Oxygen saturation in Arterial blood by Pulse oximetry 90 % 90 % MEDENT ([facility]) Body mass index (BMI) [Ratio] 25.1 kg/m2 25.1 k g/m2 MEDENT ([facility]) Body weight 151.12 [lb_av] 151.12 [lb_av] MEDEN T ([facility]) Body height 65 [in_i] 65 [in_i] MEDENT ([facility]) 5'5" Heart rate 59 /min 59 /min [facility] Diastolic blood pressure 76 mm[Hg] 76 mm[Hg] MEDENT ([facility]) Systolic blood pressure 118 mm[Hg] 118 mm[Hg] M EDENT ([facility]) Body weight 68.040 kg 68.040 kg [facility] ([facility]) Body mass index (BMI) [Ratio] 25.0 kg/m2 25.0 k g/m2 [facility] ([facility]) Body weight 150.00 [lb_av] 150.00 [lb_av] MEDEN T ([facility]) Body height 65 [in_i] 65 [in_i] [facility] ([facility]) 5'5" Diastolic blood pressure 96 mm[Hg] 96 mm[Hg] [facility] ([facility]) Systolic blood pressure 156 mm[Hg] 156 mm[Hg] [facility] ([facility]) ID Date Data Source [id number] 03/23/2020 10:17:[address] [facility] spital Name Value Range Interpretation Code Description Data Source(s) Weight Measurement Method 8 8 [facility] 2320 [facility]20 [facility] Source 7 7 [facility] Temperature [address] [facility] spital Respiratory Effort 1 1 [facility] Respiratory Rate 17 17 [facility] Pulse Assessment Method 4 4 [facility] Pulse Rate 72 72 [facility] pital Height 65 65 [facility] Pressure 174/96 174/96 [facility] Weight Measurement Method 8 8 [facility] Weight 2320 2320 [facility] pital Temperature Source 7 7 [facility] Temperature [address] [facility] spital Respiratory Effort 1 1 [facility] Respiratory Rate 17 17 [facility] Pulse Assessment Method 4 4 [facility] Pulse Rate 80 80 [facility] pital Height 65 65 [facility] Blood Pressure 174/96 174/96 [facility] Weight Measurement Method 8 8 [facility] Weight 2320 2320 [facility] pital Temperature Source 7 7 [facility] Temperature [address] [facility] spital Respiratory Effort 1 1 [facility] Respiratory Rate 17 17 [facility] Pulse Assessment Method 4 4 [facility] Pulse Rate 80 80 [facility] pital Height 65 65 [facility] Blood Pressure 174/96 174/96 [facility] ID Date Data Source [id number] 05/31/2019 12:48:[address] [facility] spital Name Value Range Interpretation Code Description Data Source(s) Weight Measurement Method 8 8 [facility] Weight 2416 2416 [facility] pital Temperature Source 7 7 [facility] Temperature [address] [facility] spital Respiratory Effort 1 1 [facility] Respiratory Rate 16 16 [facility] Pulse Assessment Method 4 4 [facility] Pulse Rate 82 82 [facility] pital Height 65 65 [facility] Blood Pressure 155/84 155/84 [facility] Weight Measurement Method 8 8 [facility] Weight 2416 2416 [facility] pital Temperature Source 7 7 [facility] Temperature [address] [facility] spital Respiratory Effort 1 1 [facility] Respiratory Rate 18 18 [facility] Pulse Assessment Method 4 4 [facility] Pulse Rate 83 83 [facility] pital Height 65 65 [facility] Blood Pressure 163/99 163/99 [facility] Patient Treatment Plan of Care Planned Activity Planned Date Details Description Data Source (s) Amlodipine 5 MG Oral Tablet 03/10/2020 12:00:00 AM EST [facility] sodium chloride 0.9 % SOLN 500 mL with h eparin (porcine) 1000 UNIT/ML SOLN 1,000 Units 10/16/2019 12:00:[address] [facility] Calcium Carbonate-Vit D-Min (CALCIUM 600+D3 PLUS TREE EXPERT ALS) 600-800 MG-UNIT TABS 09/18/2019 12:00:00 AM EDT [facility] Hydralazine Hydrochloride 50 MG Oral Tablet 07/04/2019 12:00:00 AM EDT [facility] Amlodipine 10 MG Oral Tablet 07/04/2019 12:00:00 AM EDT [facility] Labetalol hydrochloride 100 MG Oral Tablet 06/29/2019 12:00:00 AM E DT [facility] Pravastatin Sodium 80 MG Oral Tablet 06/20/2019 12:00:00 AM EDT [facility] sevelamer carbonate 800 MG Oral Tablet 06/18/2019 12:00:00 AM EDT [facility] Lidocaine 25 MG/ML / Prilocaine 25 MG/ML Topical Cream 06/11/2019 12:00:00 AM EDT [facility] Lancets Ultra Thin - 05/29/2019 12:00:00 AM EDT eCW1 ([facility]) Lancets Ultra Thin - 05/29/2019 12:00:00 AM EDT eCW1 ([facility]) gabapentin 100 MG Oral Capsule 05/28/2019 12:00:00 AM EDT [facility] 3 ML Insulin Glargine 100 UNT/ML Pen Injector [Lantus] 05/28/2019 12:00:00 AM EDT [facility] gabapentin 100 MG Oral Capsule 05/28/2019 12:00:00 AM EDT eCW1 ([facility]) carvedilol 12.5 MG Oral Tablet 05/28/2019 12:00:00 AM EDT eCW1 ([facility]) 3 ML Insulin Glargine 100 UNT/ML Pen Injector [Lantus] 05/28/2019 12:00:00 AM EDT eCW1 ([facility]) Amlodipine 5 MG Oral Tablet 05/28/2019 12:00:00 AM EDT eCW1 ([facility]) Aspirin 81 MG Chewable Tablet 05/28/2019 12:00:00 AM EDT eCW1 ([facility]) Hydralazine Hydrochloride 25 MG Oral Tablet 05/28/2019 12:00:00 AM EDT eCW1 ([facility]) Pravastatin Sodium 80 MG Oral Tablet 05/28/2019 12:00:00 AM EDT eCW1 ([facility]) Pravastatin Sodium 80 MG Oral Tablet 05/28/2019 12:00:00 AM EDT eCW1 ([facility]) carvedilol 12.5 MG Oral Tablet 05/28/2019 12:00:00 AM EDT eCW1 ([facility]) 3 ML Insulin Glargine 100 UNT/ML Pen Injector [Lantus] 05/28/2019 12:00:00 AM EDT eCW1 ([facility]) Amlodipine 5 MG Oral Tablet 05/28/2019 12:00:00 AM EDT eCW1 ([facility]) Aspirin 81 MG Chewable Tablet 05/28/2019 12:00:00 AM EDT eCW1 ([facility]) gabapentin 100 MG Oral Capsule 05/28/2019 12:00:00 AM EDT eCW1 ([facility]) Hydralazine Hydrochloride 25 MG Oral Tablet 05/28/2019 12:00:00 AM EDT eCW1 ([facility]) Aspirin 81 MG Oral Tablet [facility] POLYETHYLENE GLYCOL 3350 142 MG/ML Oral Solution [facility] Tetrahydrozoline hydrochloride 0.5 MG/ML Ophthalmic Solution [facility] 1 ML heparin sodium, porcine 1000 UNT/ML Injection [facility] Naphazoline-Pheniramine (VISINE-A OP) [facility]
[2020-03-30 20:29] LABS: BASO % 0.4 % (0.0-1.0); EOS # 0.1 10^3/uL (0.0-0.5); EOS % 1.7 % (0.0-3.0); HEMATOCRIT 34.1 % (36.0-47.0); HEMOGLOBIN 9.8 g/dl (12.0-15.5); LYMPH # 0.7 10^3/uL (1.5-5.0); LYMPH % 12.4 % (24.0-44.0); MEAN CORPUSCULAR HEMOGLOBIN 25.5 pg (27.0-33.0); MEAN CORPUSCULAR HGB CONC 28.7 g/dl (32.0-36.5); MEAN CORPUSCULAR VOLUME 88.8 fl (80.0-96.0); MONO # 0.4 10^3/uL (0.0-0.8); MONO % 8.4 % (0.0-5.0); NEUTROPHILS % 76.5 % (36.0-66.0); PLATELET COUNT, AUTOMATED 133 10^3/uL (150-450); RED BLOOD COUNT 3.84 10^6/uL (4.00-5.40); WHITE BLOOD COUNT 5.3 10^3/uL (4.0-10.0)
[2020-03-30 20:55] LABS: ALBUMIN 3.2 GM/DL (3.2-5.2); BILIRUBIN,DIRECT 0.2 MG/DL (0.0-0.2); BILIRUBIN,TOTAL 0.3 MG/DL (0.2-1.0); CALCIUM LEVEL 9.8 MG/DL (8.8-10.2); GLOMERULAR FILTRATION RATE 8.8 (>39); MAGNESIUM LEVEL 2.2 MG/DL (1.8-2.4); MB/CK RELATIVE INDEX 1.35 (< OR =4); POTASSIUM SERUM 4.5 MEQ/L (3.5-5.1); TROPONIN I 0.04 NG/ML (< 0.10)
[2020-03-30 20:55] LABS: RSV AMPLIFICATION NEGATIVE (NEGATIVE)
[2020-03-30] MEDS: CO-ENZYME Q10 50 MG CAP PO SCH (21:00)
--- NOTE | 2020-03-30 21:20 | ECGEPIP ---
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
--- NOTE | 2020-03-30 21:44 | REPVR ---
PROCEDURE INFORMATION: Exam: CT Head Without Contrast Exam date and time: 03/30/2020 9:34 PM Age: 75 years old Clinical indication: Injury or trauma; Fall; Blunt trauma (contusions or hematomas); Additional info: Fall, weakness TECHNIQUE: Imaging protocol: Computed tomography of the head without contrast. Radiation optimization: All CT scans at this facility use at least one of these dose optimization techniques: automated exposure control; mA and/or kV adjustment per patient size (includes targeted exams where dose is matched to clinical indication); or iterative reconstruction. COMPARISON: CT Head without contrast 03/02/2020 5:10 PM FINDINGS: Brain: There is moderate age related parenchymal volume loss. White matter changes are demonstrated in the subcortical, centrum semiovale and periventricular white matter consistent with chronic age related small vessel ischemic changes. Bilateral basal ganglia calcifications. Diffuse cerebellar atrophy. Cerebral ventricles: No ventriculomegaly. Bones/joints: Unremarkable. No acute fracture. Paranasal sinuses: Visualized sinuses are unremarkable. No fluid levels. Mastoid air cells: Visualized mastoid air cells are well aerated. Vasculature: Atherosclerotic calcifications are demonstrated in the intracranial carotid arteries bilaterally as well as in the vertebral basilar system. Soft tissues: Unremarkable. IMPRESSION: 1. There is moderate age related parenchymal volume loss. White matter changes are demonstrated in the subcortical, centrum semiovale and periventricular white matter consistent with chronic age related small vessel ischemic changes. 2. Diffuse cerebellar atrophy. 3. No acute intracranial findings. Electronically signed by: Jhonatan Sanchez On 03/30/2020 21:43:55 PM
--- NOTE | 2020-03-30 22:07 | REPVR ---
PROCEDURE INFORMATION: Exam: XR Chest, 1 View Exam date and time: 03/30/2020 9:59 PM Age: 75 years old Clinical indication: Other: Weakness TECHNIQUE: Imaging protocol: XR of the chest Views: 1 view. COMPARISON: [place] PORTABLE CHEST X-RAY 03/02/2020 4:36 PM FINDINGS: Lungs: Bibasilar infiltrates improved in comparison to the prior study of 03/02/2020. Pleural spaces: Unremarkable. No pleural effusion. No pneumothorax. Heart/Mediastinum: Unremarkable. No cardiomegaly. Vasculature: Vascular graft demonstrated which appears to be position in the brachiocephalic vein. Bones/joints: Status post sternotomy. Status post sternotomy. Osteoporosis. IMPRESSION: 1. Bibasilar infiltrates improved in comparison to the prior study of 03/02/2020. 2. Vascular graft demonstrated which appears to be position in the brachiocephalic vein. Electronically signed by: Jhonatan Sanchez On 03/30/2020 22:06:45 PM
--- NOTE | 2020-03-30 22:57 | HPEPDOC ---
[facility] Medical History & Physical Date of Admission Mar 30, 2020 Date of Service: Mar 30, 2020 Other Provider Edward Reason Attending Physician: DAXA GNAN MD History and Physical TIME OF SERVICE: 11 PM CHIEF COMPLAINT: Falls HISTORY OF PRESENT ILLNESS: This 75-year-old female is well-known to our service. She was last admitted on March 02 for management of hypertensive emergency with encephalopathy and acute CHF. Today she presented with complaints of falling several times over the last 2 weeks. Yesterday, prior to dialysis. She had a fall. And after dialysis, she had difficulties getting up out of the chair, which is uncharacteristic for her. Therefore, she was sent to the hospital for evaluation. She also added that she has been having problems remembering everything has been having "a tickle in my chest". She denied having slurred speech or dropping any objects. REVIEW OF SYSTEMS: 12 point review of systems negative except as listed in HPI PMH/PSH: CAD s/p CABG / Ischemic cardiomyopathy / Chronic HFrEF 34% with HFpEF CVA with right sided weakness / small vessel ischemic disease HTN IDDM2 Dyslipidemia Spinal stenosis s/p lumbar laminectomy / Lumbar spinal laminectomy at L2, L3, L4 ESRD on HD since Feb 2015, MWF via eft upper arm arteriovenous fistula Anemia of Chronic disease Bilateral Bronchiectasis with b/l calcified granulomas with mediastinal lymphadenopathy and chronic fibrosis and infiltrates of the lower lobes left > right stable since 2013 Sleep disordered breathing Debility uses a rolling walker/ BLE weakness Hysterectomy Fistulogram and dilatations of the AVF Family Hx: CAD & ESRD in mother Social Hx: Quit tobacco 26 years ago. Smoked 1 PPD for 14 years Denies alcohol or illicit substances Lives at home with ALLERGIES: Please see below. HOME MEDICATIONS: Please see below. PHYSICAL EXAMINATION: Vital Signs Date Time Temp Pulse Resp B/P (MAP) Pulse Ox O2 Delivery O2 Flow Rate FiO2 03/30/20 19:07 98.6 85 16 177/77 (110) 96 03/30/20 19:35 Room Air 98 03/31/20 00:01 2.5 GEN: well-nourished / well developed/ NAD INTEGUMENT: not flushed/ keloid scar at mid chest HEENT: EOMI/mucus membranes moist and pink CVS: RRR/NMRG/ radial pulses intact / no lower extremity edema / patent thrill at left AV fistula LUNGS: able to speak full sentences without stopping to take a breath / no coughing / lungs are clear to auscultation bilaterally on room air ABDOMEN: Contour (flat,) / soft & not tender with palpation MSK/EXTREMITIES: NCAT NEURO: CN 2-12 are grossly intact / speech is not dysarthric / strength is 5/5 at upper extremities PSYCH: alert and oriented to person place and time/ able to understand and follow all commands LABORATORY DATA: 03/30/20 19:55 03/30/20 19:55: Immature Granulocyte % (Auto) 0.6, Neutrophils (%) (Auto) 76.5H, Lymphocytes (%) (Auto) 12.4L, Monocytes (%) (Auto) 8.4H, Eosinophils (%) (Auto) 1.7, Basophils (%) (Auto) 0.4, Neutrophils # (Auto) 4.0, Lymphocytes # (Auto) 0.7L, Monocytes # (Auto) 0.4, Eosinophils # (Auto) 0.1, Basophils # (Auto) 0.0, Nucleated Red Blood Cells % (auto) 0.0, Anion Gap 4L, Glomerular Filtration Rate 8.8L, Calcium Level 9.8, Magnesium Level 2.2, Total Bilirubin 0.3, Direct Bilirubin 0.2, Aspartate Amino Transf (AST/SGOT) 16, Alanine Aminotransferase (ALT/SGPT) 14, Alkaline Phosphatase 64, Total Creatine Kinase 148, Creatine Kinase MB 2.0, Creatine Kinase MB Relative Index 1.35, Troponin I 0.04, Total Protein 7.0, Albumin 3.2, Albumin/Globulin Ratio 0.8L, Lipase 143 03/30/20 19:56: Coronavirus (COVID-19)(PCR) NEGATIVE, Influenza Type A (RT-PCR) NEGATIVE, In fluenza Type B (RT-PCR) NEGATIVE, Respiratory Syncytial Virus (PCR) NEGATIVE IMAGING: CT head "IMPRESSION: 1. There is moderate age related parenchymal volume loss. White matter changes are demonstrated in the subcortical, centrum semiovale and periventricular white matter consistent with chronic age related small vessel ischemic changes. 2. Diffuse cerebellar atrophy. 3. No acute intracranial findings. " Chest xray "IMPRESSION: 1. Bibasilar infiltrates improved in comparison to the prior study of 03/02/2020. 2. Vascular graft demonstrated which appears to be position in the brachiocephalic vein. " MICROBIOLOGY: Please see below. ASSESSMENT: Ms. Acosta is a 75-year-old with a history of half breath, HFpEF, CVA, HTN, IDDM, dyslipidemia, ESRD, anemia of chronic disease, CABG, sleep-disordered breathing, and debility who came in for evaluation of frequent falls that may be due to deconditioning or an ischemic event. PLAN: 1. Falls Possiby 2/2 weakness vs CVA Plan: admit to medical floor / telemetry / check orthostats / f/u carotid US and MRI / PT eval 2. Chest pain or palpitations ? patient reported having "a tickle in my chest" ? Plan: telemetry / f/u serial trops 3. hx of CVA with right sided weakness /small vessel ischemic disease Plan: Aspirin, Pravastatin 3. CAD s/p CABG / Ischemic cardiomyopathy / Chronic HFrEF 34% with HFpEF Plan: Aspirin, Pravastatin 4. HTN Plan: Amlodipine, Carvedilol, Hydralazine 5. IDDM2 a1c 9.0% in Sep Plan: diabetic diet / f/u accuchecks / hypoglycemia protocol / sliding scale insulin / f/u A1C 6. Anemia of Chronic disease Plan: f/u iron panel and stool occult / soluble transferrin receptor (sTfR) which is a more sensitive indicator for iron deficiency, it will be high if the patient really has iron deficiency 7. Thrombocytopenia Hep B and C neg Plan; f/u w PCP for additional work-up 8. ESRD on HD since Feb 2015, MWF via eft upper arm arteriovenous fistula Plan:Sevelamer / will ask day time team to place a Nephro consult 9. Osteoporosis / Renal Mineral bone disease Plan: Denosumab on an out pt basis 10.Dyslipidemia Plan: Pravastatin 11. Debility uses a rolling walker/ BLE weakness / Spinal stenosis s/p lumbar laminectomy Plan: rolling walker DVT PROPHYLAXIS: heparin DISPOSITION: home after more than 2 midnight's stay Home Medications Scheduled Amlodipine Besylate (Amlodipine Besylate) 5 Mg Tablet, 5 MG PO DAILY Amoxicillin/Potassium Clav (Augmentin 875-125 Tablet) 1 Each Tablet, 875 MG PO BID STARTED 03/22/20 Aspirin (Aspirin EC) 81 Mg Tablet.dr, 81 MG PO QHS Calcium Carbonate (Calcium) 600 Mg Tablet, 600 MG PO DAILY Carvedilol (Carvedilol) 12.5 Mg Tablet, 12.5 MG PO BID Denosumab Injection (Prolia) 60 Mg/1 Ml Syringe, 60 MG SC ASDIRECTED EVERY SIX MONTHS; SUPPOSED TO TAKE IN JANUARY BUT UNABLE. LAST DOSE WAS JULY 2019. Hydralazine HCl (Hydralazine HCl) 50 Mg Tablet, 50 MG PO TID Lidocaine/Prilocaine (Lidocaine-Prilocaine Cream) 2.5%/2.5% Cream..g., 1 APLCT TOP 3XW MONDAY, MONDAY AND MONDAY PRIOR TO DIALYSIS Multivitamins (Thera M Plus Tablet) 1 Each Tablet, 1 TAB PO DAILY Pravastatin Sodium (Pravastatin Sodium) 80 Mg Tablet, 80 MG PO QHS Sevelamer Carbonate (Sevelamer Carbonate) 800 Mg Tablet, 800 MG PO PC Ubidecarenone (Coenzyme Q10) 100 Mg Tablet, 100 MG PO QHS Scheduled PRN Docusate Sodium (Docusate Sodium) 100 Mg Capsule, 100 MG PO DAILY PRN for CONSTIPATION Allergies Coded Allergies: Cpkxvju-Rid-Ijn Reductase Inhibitor (Verified Allergy, Unknown, PAIN, 07/20/18) PT SAYS SHE CAN TAKE PRAVASTATIN A-FIB/CHADSVASC A-FIB History Current/History of A-Fib/PAF?: No Current PO Anticoag Therapy: No DAXA GANN MD Mar 30, 2020 22:57
[2020-03-30] MEDS ORDERED: MOM 30ML SUSPENSION UDC PO PRN (23:00)
[2020-03-30] MEDS ORDERED: GLUCAGON INJ 1MG VIAL SC PRN (23:00)
[2020-03-30] MEDS ORDERED: DEXTROSE 50% 50 ML SYRINGE IV PRN (23:00)
[2020-03-30] MEDS ORDERED: GLUCOSE 4GM CHEW TABLET PO PRN (23:00)
[2020-03-30] MEDS ORDERED: MAALOX 30 ML SUSP *UDC PO PRN (23:00)
[2020-03-30] MEDS ORDERED: AUGM875T28 PO (23:08)
[2020-03-30] MEDS ORDERED: ASPI-161 PO (23:08)
[2020-03-30] MEDS ORDERED: AMLO1TAB24 PO (23:08)
[2020-03-30] MEDS: HumaLOG INSULIN (NovoLOG) PER UNIT SC SCH (23:29)
--- OUTSIDE RECORDS SUMMARY | 2020-03-31 00:15 | CCD ---
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 hypercholesterolemia, unspecified Diagnosis 07/16/2019 02:37:19 PM EDT [facility] Z99.2 Dependence on renal dialysis Dependence on renal dialy sis Diagnosis 07/16/2019 02:37:19 PM EDT [facility] N18.6 End stage renal disease End stage renal disease Diagno sis 07/16/2019 02:37:19 PM EDT [facility] I10 Essential (primary) hypertension Essential (primary) h ypertension Diagnosis 07/16/2019 02:37:19 PM EDT [facility] 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 Atherosclerosis of coronary artery bypas Diagnosis 07/16/2019 02:37:19 PM EDT [facility] Z95.1 Presence of aortocoronary bypass graft P resence of aortocoronary bypass graft Diagnosis 07/16/2019 02:37:19 PM EDT [facility] Y92.[address] in single- family (private) house as the place of occurrence of the external cause UNSP PLACE IN SINGLE-FAMILY (PRIVATE) HO USE PLACE Diagnosis 04/27/2019 01:50:00 PM EST [facility] spital W01.0XXA Fall on same level from slip ping, tripping and stumbling without subsequent striking against object, initial encounter FALL SAME LEV FROM SLIP/TRIP W/O STRIKE AGAINST OBJECT, INIT Diagnosis 04/27/2019 01:50:0 0 PM [facility] Z95.0 Presence of cardiac pacemaker 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 Diagnosis 04/27/2019 01:50:00 PM [facility] Z95.1 Presence of aortocoronary bypass graft P RESENCE OF AORTOCORONARY BYPASS GRAFT Diagnosis 04/27/2019 01:50:00 PM EST [facility] spital Z86.73 Personal history of transien t ischemic attack (TIA), and cerebral infarction without residual deficits PRSNL HX OF TIA (TIA), AND CEREB INFRC W /O RESID DEFICITS Diagnosis 04/27/2019 01:50:00 PM [facility] spital I25.2 Old myocardial infarction OLD MYOCARDIAL INFARCTION Di agnosis 04/27/2019 01:50:00 PM [facility] Z99.2 Dependence on renal dialysis DEPENDENCE ON RENAL DIALY SIS Diagnosis 04/27/2019 01:50:00 PM [facility] M81.8 Other osteoporosis without current patho logical fracture OTHER OSTEOPOROSIS WITHOUT CURRENT PATHOLOGICAL FRACTURE Diagnosis 01:50:00 PM [facility] N18.5 Chronic kidney disease, stage 5 CHRONIC KIDNEY DISEASE , STAGE 5 Diagnosis 04/27/2019 01:50:00 PM [facility] I12.0 Hypertensive chronic kidney disease with stage 5 chronic kidney disease or end stage renal disease HYP CHR KIDNEY DISEASE W STAGE 5 CHR KID CATA DISEASE OR ESRD Diagnosis 04/27/2019 01:50:00 PM [facility] spital G44.319 Acute post-traumatic headache, not intra ctable ACUTE POST-TRAUMATIC HEADACHE, NOT INTRACTABLE Diagnosis 04/27/2019 01:50:00 PM [facility] S00.83XA Contusion of other part of head, initial encounter CONTUSION OF OTHER PART OF HEAD, INITIAL ENCOUNTER Diagnosis 04/27/2019 01:50:00 PM [facility] Z79.4 CHCF (current) use of insulin CHCF (cu rrent) use of insulin Diagnosis 02/14/2019 01:18:25 PM [facility] E11.59 Type 2 diabetes mellitus with other circ ulatory complications Type 2 diabetes mellitus with other circ Diagnosis 02/14/2019 01:18:25 PM [facility] I63.9 Cerebral infarction, unspecified Cerebral infarc tion, unspecified Diagnosis 02/14/2019 01:18:25 PM [facility] Surgeries/Procedures Procedure Description Date Indications Data Source(s) ECG ROUTINE ECG W/LEAST 12 LDS W/I&R POCT AMB EKG Routine 03/17/2020 12:45 PM EST Ischemic cardiomyopathy EF 35% 03/17/2020 05:45:00 PM EST Is chemic cardiomyopathy EF 35% [facility] Ischemic cardiomyopathy EF 35% [facility]ialysis [facility] W/ Transluminal Balloon Angioplasty, Periph eral 10/18/2019 12:00:00 AM EDT [facility] ([facility] Translum Balloon Angio Central Dial Segment Through Dialys C ircui 10/18/2019 12:00:00 AM EDT [facility] ([facility]) Moderate Sedation Services; Same Phys Intl 15 Mins; PT >= 5 Years 10/18/2019 12:00:00 AM EDT [facility] ([facility]) Dialysis Circuit W/ Transluminal Balloon Angioplasty, Perip eral 05/21/2019 12:00:00 AM EDT MED[facility] ([facility]) Translum Balloon Angio Central Dial Segment Through Dialys C ircui 05/21/2019 12:00:00 AM EDT [facility] ([facility]) Moderate Sedation Services; Same Phys Intl 15 Mins; PT >= 5 Years 05/21/2019 12:00:00 AM EDT [facility] ([facility]) CT ORBIT SELLA/POST FOSSA/EAR W/O CONTRAST MATRL CT ORBIT/EA R/FOSSA W/O DYE 04/27/2019 12:00:00 AM [facility] CT HEAD/BRAIN W/O CONTRAST MATERIAL CT HEAD/BRAIN W/O DYE 12:00:00 AM [facility] EMERGENCY DEPARTMENT VISIT HIGH/URGENT SEVERITY EMERGENCY DE PT VISIT 04/27/2019 12:00:00 AM [facility] Dialysis Circuit W/ Transluminal Balloon Angioplasty, Perip eral 02/21/2019 12:00:00 AM EST [facility] ([facility] Moderate Sedation Services; Same Phys Intl 15 Mins; PT >= 5 Years 02/21/2019 12:00:00 AM EST [facility] ([facility]) Results ID Date Data Source [id number] 03/22/2020 04:40:00 PM EST [facility] Name Value Range Interpretation Code Description Data Liv rce(s) Supporting Document(s) Respiratory specimen severe acute respir atory syndrome coronavirus 2 (SARS-CoV-2) RNA Not Detected [facility] This lab was ordered by Meri crowell and reported by . ID Date Data Source [id number] 03/22/2020 04:31:00 PM EST [facility] Department Imaging Report [address], [place] [address] %(RAD)RES..mtdd.print.filter("line") Name: RONNIE BRAN : 1945 Age/Sex: 75F Ordering Provider: TAURUS Meade Med Rec #: [id number] Reg Status: [facility] Room #: Date of Service: 03/22/20 Report Number: [id number] cc:Moe Alvarez Reason, DO Send Report To: [id number] CT/CT Abdomen & Pelvis No Contras Reason [...] Date/Time: 03/22/20 1556 Transcribed Date/Time: 03/22/20 1631 Abstract Manager: WAYNE Name Value Range Interpretation Code Description Data Liv rce(s) Supporting Document(s) ID Date Data Source [id number] 03/22/2020 04:37:00 PM [facility] Imaging Services Department Imaging Report [address] [place] [address] %(RAD)RES..mtdd.print.filter("line") Name: RONNIE BRAN : 1945 Age/Sex: 75F Ordering Provider: TAURUS Meade Med Rec #: [id number] Reg Status: [facility] Room #: Date of Service: 03/22/20 Report Number: [id number] cc:Moe Champion, DO; TAURUS Meade Send Report To: [id number] XRP/XR Chest Xray Portable Reason for exam: [...] Date/Time: 03/22/20 1620 Transcribed Date/Time: 03/22/20 1637 Abstract Manager: WAYNE Name Value Range Interpretation Code Description Data Liv rce(s) Supporting Document(s) ID Date Data Source [id number] 03/02/2020 05:07:00 PM EST [facility] Name Value Range Interpretation Code Description Data Liv rce(s) Supporting Document(s) SARS coronavirus 2 RNA [Presence] in Res piratory specimen by ZANE with probe detection [facility] This lab was ordered by [facility] a nd reported by [facility]. ID Date Data Source [id number] 01/28/2020 12:17:00 PM EST MEDENT ([facility], ) Name Value Range Interpretation Code Description Data Liv rce(s) Supporting Document(s) Glucose [Mass/volume] in Capillary blood by Glucometer 132 mg/dL 83-110 Above high normal MED[facility] ([facility]) ID Date Data Source [id number] 01/28/2020 08:14:00 AM EST [facility] ([facility]) Name Value Range Interpretation Code Description Data Liv rce(s) Supporting Document(s) Glucose [Mass/volume] in Capillary blood by Glucometer 155 mg/dL 83-110 Above high normal [facility] ([facility]) ID Date Data Source [id number] 01/21/2020 01:04:00 PM EST [facility] ([facility]) Name Value Range Interpretation Code Description Data Liv rce(s) Supporting Document(s) Glucose [Mass/volume] in Capillary blood by Glucometer 172 mg/dL 83-110 Above high normal [facility] ([facility]) ID Date Data Source [id number] 12/05/2019 12:03:00 PM EDT [facility] ([facility]) Name Value Range Interpretation Code Description Data Liv rce(s) Supporting Document(s) Hemoglobin A1c/Hemoglobin.total in Blood Laboratory test result [facility] ([facility]) Glucose [Mass/volume] in Serum or Plasma 382 [facility] ([facility]) ID Date Data Source [id number] 11/29/2019 06:27:00 AM EDT [facility] Imaging Services Department Imaging Report [address] [place] [address] %(RAD)RES..mtdd.print.filter("line") Name: RONNIE BRAN : 1945 Age/Sex: 74F Ordering Provider: Moe Champion DO Med Rec #: [id number] Reg Status: DEP REF Room #: Date of Service: 11/28/19 Report Number: [id number] cc:Moe Champion DO Send Report To: [id number] US/US Dup Lower Ext Artery Bilat Reason [...] Higgins MD> 11/29/19 1051 Dictation Date/Time: 11/28/19 6879 Transcribed Date/Time: 11/29/19 1146 Abstract Manager: VINCENZO Name Value Range Interpretation Code Description Data Liv rce(s) Supporting Document(s) ID Date Data Source LIVER PROFILE 05/28/2019 12:00:00 AM EDT eCW1 ([facility]) Name Value Range Interpretation Code Description Data Liv rce(s) Supporting Document(s) 15 7-37 AST/SGOT eCW1 ([facility]) 17 12-78 ALT/SGPT eCW1 ([facility]) 0.1 0.0-0.2 BILIRUBIN,DIRECT eCW1 ([facility]) 66 45-117 ALKALINE PHOSPHATASE eCW1 ([facility]) 7.4 6.4-8.2 TOTAL PROTEIN eCW1 ([facility]) 0.5 0.2-1.0 BILIRUBIN,TOTAL eCW1 ([facility]) 3.6 3.2-5.2 ALBUMIN eCW1 ([facility]) 0.95 1.00-1.93 ALBUMIN/GLOBULIN RATIO eCW1 ([facility]) ID Date Data Source LIPID PANEL (CARDIAC RISK) 05/28/2019 12:00:00 AM EDT eCW1 ( [facility]) Name Value Range Interpretation Code Description Data Liv rce(s) Supporting Document(s) Triglyceride [Mass/volume] in Serum or Plasma by calculation 227 <150 TRIGLYCERIDES LEVEL eCW1 ([facility]) Cholesterol [Moles/volume] in Serum or Plasma 227 <200 CHOLESTEROL LEVEL eCW1 ([facility]) 187 NON-HDL-C eCW1 ([facility]) Cholesterol in HDL [Moles/volume] in Serum or Plasma 40 >40 HDL CHOLESTEROL eCW1 ([facility]) Cholesterol in LDL [Mass/volume] in Serum or Plasma by calculation 142 <100 LDL CHOLESTEROL eCW1 ([facility]) 5.675 <5 CHOLESTEROL RISK RATIO eCW1 ([facility]) ID Date Data Source [id number] 05/28/2019 12:00:00 AM EDT eCW1 ([facility]) Name Value Range Interpretation Code Description Data Liv rce(s) Supporting Document(s) Hemoglobin A1c/Hemoglobin.total in Blood 8.9 HEMOGLOBIN A1c eCW1 ([facility]) ID Date Data Source Comprehensive Metabolic Profile (CMP) 05/28/2019 12:00:00 AM EDT eCW1 ([facility]) Name Value Range Interpretation Code Description Data Liv rce(s) Supporting Document(s) 174 70-100 GLUCOSE, FASTING eCW1 ([facility]) 32 7-18 BLOOD UREA NITROGEN eCW1 ([facility]) 137 136-145 SODIUM LEVEL eCW1 ([facility]) 7.76 0.55-1.30 CREATININE FOR GFR eCW1 ([facility]) 6.6 >39 GLOMERULAR FILTRATION RATE eCW 1 ([facility]) 8.9 8.8-10.2 CALCIUM LEVEL eCW1 ([facility]) 96 98-107 CHLORIDE LEVEL eCW1 ([facility]) 3.7 3.5-5.1 POTASSIUM SERUM eCW1 ([facility]) 36 21-32 CARBON DIOXIDE LEVEL eCW1 ([facility]) 64 45-117 ALKALINE PHOSPHATASE eCW1 ([facility]) 17 7-37 AST/SGOT eCW1 ([facility]) 18 12-78 ALT/SGPT eCW1 ([facility]) 3.6 3.2-5.2 ALBUMIN eCW1 ([facility]) 7.2 6.4-8.2 TOTAL PROTEIN eCW1 ([facility]) 0.5 0.2-1.0 BILIRUBIN,TOTAL eCW1 ([facility]) 1.00 1.00-1.93 ALBUMIN/GLOBULIN RATIO eCW1 ([facility]) ID Date Data Source CBC with Differential 05/28/2019 12:00:00 AM EDT eCW1 ([facility]) Name Value Range Interpretation Code Description Data Liv rce(s) Supporting Document(s) 4.22 4.00-5.40 RED BLOOD COUNT eCW1 ([facility]) 3.5 4.0-10.0 WHITE BLOOD COUNT eCW1 ([facility]) 89.8 80.0-96.0 MEAN CORPUSCULAR VOLUME e CW1 ([facility]) 37.9 36.0-47.0 HEMATOCRIT eCW1 ([facility]) 10.9 12.0-15.5 HEMOGLOBIN eCW1 ([facility]) 25.8 27.0-33.0 MEAN CORPUSCULAR HEMOGLOB IN eCW1 ([facility]) 28.8 32.0-36.5 MEAN CORPUSCULAR HGB CONC eCW1 ([facility]) 20.6 11.5-14.5 RED CELL DISTRIBUTION WID TH eCW1 ([facility]) 26.6 24.0-44.0 LYMPH % eCW1 ([facility]) 138 150-450 PLATELET COUNT, AUTOMATED eCW1 ([facility]) 12.6 0.0-5.0 MONO % eCW1 ([facility]) 56.5 36.0-66.0 NEUTROPHILS % eCW1 ([facility]) 2.0 1.5-8.5 NEUTROPHILS # eCW1 ([facility]) 3.4 0.0-3.0 EOS % eCW1 ([facility]) 0.6 0.0-1.0 BASO % eCW1 ([facility]) 0.4 0.0-0.8 MONO # eCW1 ([facility]) 0.9 1.5-5.0 LYMPH # eCW1 ([facility]) 0.0 0.0-0.2 BASO # eCW1 ([facility]) 0.1 0.0-0.5 EOS # eCW1 ([facility]) ID Date Data Source [id number] 05/21/2019 10:17:00 AM EDT [facility] Name Value Range Interpretation Code Description Data Liv rce(s) Supporting Document(s) Glucose [Mass/volume] in Capillary blood by Glucometer 116 mg/dL 83-110 Above high normal MEDENT ([facility]) ID Date Data Source [id number] 05/07/2019 01:02:00 PM EDT MEDENT ([facility]) Name Value Range Interpretation Code Description Data Liv rce(s) Supporting Document(s) Hemoglobin A1c/Hemoglobin.total in Blood 7.8 [facility] ([facility]) Glucose [Mass/volume] in Serum or Plasma 370 [facility]ENT ([facility]) ID Date Data Source [id number] 04/29/2019 08:03:00 AM [facility] Imaging Services Department Imaging Report [address] [place] [address] %(RAD)RES..mtdd.print.filter("line") Name: RONNIE BRAN : 1945 Age/Sex: 74F Ordering Provider: Klever Vizcaino NP Med Rec #: [id number] Reg Status: [facility] Room #: Date of Service: 04/27/19 Report Number: [id number] cc:PCP None Send Report To: [id number] CT/CT Orbits No Contrast Reason for exam: [...] rce(s) Supporting Document(s) ID Date Data Source [id number] 04/29/2019 07:54:00 AM [facility] Imaging Services Department Imaging Report [address] [place] [address] %(RAD)RES..mtdd.print.filter("line") Name: RONNIE BRAN : 1945 Age/Sex: 74F Ordering Provider: Klever Vizcaino NP Med Rec #: [id number] Reg Status: [facility] Room #: Date of Service: 04/27/19 Report Number: [id number] cc:PCP None Send Report To: [id number] CT/CT Head No Contrast Reason for exam: [...] Date/Time: 04/27/19 1437 Transcribed Date/Time: 04/29/19 0754 Abstract Manager: YULIYA Name Value Range Interpretation Code Description Data Liv rce(s) Supporting Document(s) Procedure Social History Code Duration Value Status Description Data Source(s ) Alcohol intake 03/17/2020 12:00:00 AM EST No completed [facility] Cigarette pack-years 03/17/2020 12:00:00 AM EST UNK completed [facility] Cigarettes smoked current (pack per day) - Reported 03/17/19 21 12:00:00 AM EST UNK completed [facility] Smoking 03/17/2020 12:00:00 AM EST Former smoker completed Former smoker [facility] Smoking 02/04/2020 12:00:00 AM EST Patient is a former smoker completed Patient is a former smoker KEIRA ([facility], ) Smoking 12/05/2019 12:00:00 AM EDT Patient is a former smoker completed Patient is a former smoker MEDENT ([facility]) Vital Signs ID Date Data Source UNK Name Value Range Interpretation Code Description Data Source(s) Oxygen saturation in Arterial blood by Pulse oximetry 93 % 93 % [facility] Body mass index (BMI) [Ratio] 24.30 kg/m2 24.30 kg/m2 [facility] Body weight 66.225 kg 66.225 kg [facility] Body height 165.1 cm 165.1 cm [facility] Heart rate 70 /min 70 /min [facility] Diastolic blood pressure 70 mm[Hg] 70 mm[Hg] [facility] Systolic blood pressure 140 mm[Hg] 140 mm[Hg] [facility] Body surface area Derived from formula 1.76 m2 1.76 m2 [facility] ([facility] ) Body weight 68.494 kg 68.494 kg [facility] ([facility] ) [place] body weight 125 [lb_av] 125 [lb_av] MEDEN T ([facility], ) Body mass index (BMI) [Ratio] 25.1 kg/m2 25.1 k g/m2 [facility] ([facility]) Body weight 151.00 [lb_av] 151.00 [lb_av] MEDEN T ([facility]) Body height 65 [in_i] 65 [in_i] [facility] ([facility]) 5'5" Diastolic blood pressure 60 mm[Hg] 60 mm[Hg] [facility] ([facility]) Systolic blood pressure 120 mm[Hg] 120 mm[Hg] [facility] ([facility]) Body surface area Derived from formula 1.75 m2 1.75 m2 [facility] ([facility]) Body weight 68.040 kg 68.040 kg [facility] ([facility]) [place] body weight 125 [lb_av] 125 [lb_av] MEDEN T ([facility]) Body mass index (BMI) [Ratio] 25.0 kg/m2 25.0 k g/m2 [facility] ([facility]) Body weight 150.00 [lb_av] 150.00 [lb_av] MED[facility] T ([facility]) Body height 65 [in_i] 65 [in_i] [facility] ([facility]) 5'5" Diastolic blood pressure 68 mm[Hg] 68 mm[Hg] [facility] ([facility]) Systolic blood pressure 138 mm[Hg] 138 mm[Hg] [facility] ([facility]) Oxygen saturation in Arterial blood by Pulse oximetry 9 % 9 % [facility] ([facility]) Body mass index (BMI) [Ratio] 26.2 kg/m2 26.2 k g/m2 [facility] ([facility]) Body weight 157.38 [lb_av] 157.38 [lb_av] MED[facility] T ([facility]) Body height 65 [in_i] 65 [in_i] [facility] ([facility]) 5'5" Heart rate 74 /min 74 /min [facility] ([facility]) Diastolic blood pressure 72 mm[Hg] 72 mm[Hg] [facility] ([facility]) Systolic blood pressure 126 mm[Hg] 126 mm[Hg] [facility] Body mass index (BMI) [Ratio] 24.6 kg/m2 24.6 k g/m2 [facility] ([facility] ) Body weight 148.00 [lb_av] 148.00 [lb_av] MEDEN T ([facility]) Body height 65 [in_i] 65 [in_i] [facility] ([facility]) 5'5" Heart rate 76 /min 76 /[facility] Diastolic blood pressure 74 mm[Hg] 74 mm[Hg] [facility] ([facility]) Systolic blood pressure 139 mm[Hg] 139 mm[Hg] M EDENT ([facility] ) Body weight 67.133 kg 67.133 kg [facility] ([facility]) [place] body weight 125 [lb_av] 125 [lb_av] MEDEN T ([facility]) Diastolic blood pressure 74 mm[Hg] 74 mm[Hg] eCW1 ([facility]) Systolic blood pressure 190 mm[Hg] 190 mm[Hg] e CW1 ([facility]) Body temperature 97.9 [degF] 97.9 [degF] eCW1 ( [facility]) Respiratory rate 18 /min 18 /min eCW1 ([facility]) Heart rate 84 /min 84 /min eCW1 ([facility]) Body mass index (BMI) [Ratio] 25.12 kg/m2 25.12 kg/m2 eCW1 ([facility]) Body height 65 [in_us] 65 [in_us] eCW1 ([facility]) Body weight Measured 151 [lb_av] 151 [lb_av] eC W1 ([facility]) Oxygen saturation in Arterial blood by Pulse oximetry 90 % 90 % [facility] ([facility]) Body mass index (BMI) [Ratio] 25.1 kg/m2 25.1 k g/m2 [facility] ([facility] Body weight 151.12 [lb_av] 151.12 [lb_av] MEDEN T ([facility]) Body height 65 [in_i] 65 [in_i] [facility] ([facility]) 5'5" Heart rate 59 /min 59 /min [facility] Diastolic blood pressure 76 mm[Hg] 76 mm[Hg] [facility] ([facility]) Systolic blood pressure 118 mm[Hg] 118 mm[Hg] M EDENT ([facility]) Body weight 68.040 kg 68.040 kg [facility] ([facility]) Body mass index (BMI) [Ratio] 25.0 kg/m2 25.0 k g/m2 [facility] ([facility]) Body weight 150.00 [lb_av] 150.00 [lb_av] MEDEN T ([facility]) Body height 65 [in_i] 65 [in_i] [facility] ([facility]) 5'5" Diastolic blood pressure 96 mm[Hg] 96 mm[Hg] [facility] ([facility]) Systolic blood pressure 156 mm[Hg] 156 mm[Hg] [facility] ([facility]) ID Date Data Source [id number] 03/23/2020 10:17:00 AM EST [facility]ital Name Value Range Interpretation Code Description Data Source(s) Weight Measurement Method 8 8 [facility] 2320 [facility]20 [facility] 7 7 [facility] Hospital Temperature 97.5 97.5 [facility] spital Respiratory Effort 1 1 [facility] Respiratory Rate 17 17 [facility] Pulse Assessment Method 4 4 [facility] Pulse Rate 72 72 [facility] pital Height 65 65 [facility] pital Blood Pressure 174/96 174/96 [facility] Weight Measurement Method 8 8 [facility] Weight 2320 2320 [facility] pital Temperature Source 7 7 [facility] Temperature 97.5 97.5 [facility] spital Respiratory Effort 1 1 [facility] Respiratory Rate 17 17 [facility] Pulse Assessment Method 4 4 [facility] Pulse Rate 80 80 [facility] pital Height 65 65 [facility] pital Blood Pressure 174/96 174/96 [facility] Weight Measurement Method 8 8 [facility] Weight 2320 2320 [facility] pital Temperature Source 7 7 [facility] Temperature 97.5 97.5 [facility] spital Respiratory Effort 1 1 [facility] Respiratory Rate 17 17 [facility] Pulse Assessment Method 4 4 [facility] Pulse Rate 80 80 [facility] pital Height 65 65 [facility] Blood Pressure 174/96 174/96 [facility] ID Date Data Source [id number] 05/31/2019 12:48:00 PM EDT [facility] spital Name Value Range Interpretation Code Description Data Source(s) Weight Measurement Method 8 8 [facility] Weight 2416 2416 [facility] pital Temperature Source 7 7 [facility] Temperature 97.9 97.9 [facility] spital Respiratory Effort 1 1 [facility] Respiratory Rate 16 16 [facility] Pulse Assessment Method 4 4 [facility] Pulse Rate 82 82 [facility] pital Height 65 65 [facility] Blood Pressure 155/84 155/84 [facility] Weight Measurement Method 8 8 [facility] Weight 2416 2416 [facility] pital Temperature Source 7 7 [facility] Temperature 98 98 [facility] spital Respiratory Effort 1 1 [facility] Respiratory Rate 18 18 [facility] Pulse Assessment Method 4 4 [facility] Pulse Rate 83 83 [facility] pital Height 65 65 [facility] Blood Pressure 163/99 163/99 [facility] Patient Treatment Plan of Care Planned Activity Planned Date Details Description Data Source (s) Amlodipine 5 MG Oral Tablet 03/10/2020 12:00:00 AM EST [facility] sodium chloride 0.9 % SOLN 500 mL with h eparin (porcine) 1000 UNIT/ML SOLN 1,000 Units 10/16/2019 12:00:00 AM EDT [facility] Calcium Carbonate-Vit D-Min (CALCIUM 600+D3 PLUS TRANSACTION ADVISORY SERVICES MANAGER ALS) 600-800 MG-UNIT TABS 09/18/2019 12:00:00 AM EDT [facility] Hydralazine Hydrochloride 50 MG Oral Tablet 07/04/2019 12:00:00 AM EDT [facility] Amlodipine 10 MG Oral Tablet 07/04/2019 12:00:00 AM EDT [facility] Labetalol hydrochloride 100 MG Oral Tablet 06/29/2019 12:00:00 AM E DT [facility] Pravastatin Sodium 80 MG Oral Tablet 06/20/2019 12:00:00 AM EDT [facility] sevelamer carbonate 800 MG Oral Tablet 06/18/2019 12:00:00 AM EDT [facility] Lidocaine 25 MG/ML / Prilocaine 25 MG/ML Topical Cream 06/11/2019 12:00:00 AM EDT [facility] Lancets Ultra Thin - 05/29/2019 12:00:00 AM EDT eCW1 ([facility]) Lancets Ultra Thin - 05/29/2019 12:00:00 AM EDT eCW1 ([facility]) gabapentin 100 MG Oral Capsule 05/28/2019 12:00:00 AM EDT [facility] 3 ML Insulin Glargine 100 UNT/ML Pen Injector [Lantus] 05/28/2019 12:00:00 AM EDT [facility] gabapentin 100 MG Oral Capsule 05/28/2019 12:00:00 AM EDT eCW1 ([facility]) carvedilol 12.5 MG Oral Tablet 05/28/2019 12:00:00 AM EDT eCW1 ([facility]) 3 ML Insulin Glargine 100 UNT/ML Pen Injector [Lantus] 05/28/2019 12:00:00 AM EDT eCW1 ([facility]) Amlodipine 5 MG Oral Tablet 05/28/2019 12:00:00 AM EDT eCW1 ([facility]) Aspirin 81 MG Chewable Tablet 05/28/2019 12:00:00 AM EDT eCW1 ([facility]) Hydralazine Hydrochloride 25 MG Oral Tablet 05/28/2019 12:00:00 AM EDT eCW1 ([facility]) Pravastatin Sodium 80 MG Oral Tablet 05/28/2019 12:00:00 AM EDT eCW1 ([facility]) Pravastatin Sodium 80 MG Oral Tablet 05/28/2019 12:00:00 AM EDT eCW1 ([facility]) carvedilol 12.5 MG Oral Tablet 05/28/2019 12:00:00 AM EDT eCW1 ([facility]) 3 ML Insulin Glargine 100 UNT/ML Pen Injector [Lantus] 05/28/2019 12:00:00 AM EDT eCW1 ([facility]) Amlodipine 5 MG Oral Tablet 05/28/2019 12:00:00 AM EDT eCW1 ([facility]) Aspirin 81 MG Chewable Tablet 05/28/2019 12:00:00 AM EDT eCW1 ([facility]) gabapentin 100 MG Oral Capsule 05/28/2019 12:00:00 AM EDT eCW1 ([facility]) Hydralazine Hydrochloride 25 MG Oral Tablet 05/28/2019 12:00:00 AM EDT eCW1 ([facility]) Aspirin 81 MG Oral Tablet [facility] POLYETHYLENE GLYCOL 3350 142 MG/ML Oral Solution [facility] Tetrahydrozoline hydrochloride 0.5 MG/ML Ophthalmic Solution [facility] 1 ML heparin sodium, porcine 1000 UNT/ML Injection [facility] Naphazoline-Pheniramine (VISINE-A OP) [facility]
[2020-03-31] MEDS: **hydrALAZINE** 50 MG TAB PO SCH ×4 (00:58→21:53)
[2020-03-31] MEDS: AUGMENTIN 875 MG TAB PO SCH ×2 (00:59→08:33)
[2020-03-31] MEDS: PRAVASTATIN 20 MG TAB PO SCH ×2 (00:59→21:52)
[2020-03-31] MEDS: ASPIRIN 81 MG ENTERIC TAB PO SCH ×2 (01:00→21:52)
[2020-03-31 02:44] VITALS: BP 156/66
[2020-03-31] MEDS: HEPARIN SOD (PORCINE) 5000UNITS/ML 1ML VIAL/SYRINGE SC SCH ×3 (05:17→21:54)
[2020-03-31] MEDS: ACETAMINOPHEN TAB 650MG DOSE (2X325MG) PO PRN (05:17)
[2020-03-31 07:41] LABS: CALCIUM LEVEL 9.4 MG/DL (8.8-10.2); CREATININE FOR GFR 6.91 MG/DL (0.55-1.30); GLOMERULAR FILTRATION RATE 7.5 (>39); POTASSIUM SERUM 5.1 MEQ/L (3.5-5.1); TROPONIN I 0.03 NG/ML (< 0.10)
[2020-03-31] MEDS: (RENVELA) SEVELAMER **CARBONate** 800 MG TAB PO SCH ×3 (08:33→16:57)
[2020-03-31] MEDS: CALCIUM CARBONATE 500 MG CHEW U/D PO SCH (08:33)
[2020-03-31] MEDS: HumaLOG INSULIN (NovoLOG) PER UNIT SC SCH ×4 (08:34→21:00)
[2020-03-31] MEDS: CARVedilol 12.5 MG TAB PO SCH ×2 (08:37→21:53)
[2020-03-31] MEDS: amLODIPine 5 MG TAB PO SCH (08:37)
[2020-03-31] MEDS ORDERED: DARBEPOETIN 200MCG/0.4ML *DIALYSIS* SYRINGE (J0882 PER 1MCG) IV SCH (10:00)
[2020-03-31 10:21] LABS: HEMATOCRIT 32.5 % (36.0-47.0); HEMOGLOBIN 9.1 g/dl (12.0-15.5); MEAN CORPUSCULAR VOLUME 89.3 fl (80.0-96.0); PLATELET COUNT, AUTOMATED 130 10^3/uL (150-450); RED BLOOD COUNT 3.64 10^6/uL (4.00-5.40); WHITE BLOOD COUNT 5.3 10^3/uL (4.0-10.0)
[2020-03-31 11:06] LABS: HEMOGLOBIN A1c 6.8 %
--- NOTE | 2020-03-31 11:06 | IPNPDOC ---
Text Note Date of Service The patient was seen on 03/31/20. NOTE Subjective: Patient seen and examined at bedside. No acute overnight events reported. Patient has no new medical complaints this morning. She is concerned regarding her home medications. Objective: Patient refused physical examination. A/P: 75F with PMHx including HFpEF, CVA, HTN, IDDM, dyslipidemia, ESRD, anemia of chronic disease, CAD/CABG, sleep-disordered breathing, and debility who came in for evaluation of frequent falls. #Falls - Possiby 2/2 weakness vs CVA - telemetry - check orthostats / f/u carotid US and MRI / PT eval - echocardiogram #Chest pain or palpitations ? - patient reported having "a tickle in my chest" ? - telemetry - trops negative thus far #hx of CVA with right sided weakness /small vessel ischemic disease - Aspirin, Pravastatin #CAD s/p CABG / Ischemic cardiomyopathy / Chronic HFrEF 34% with HFpEF -Aspirin, Pravastatin #HTN - continue home Amlodipine, Carvedilol, Hydralazine # IDDM2 a1c 9.0% in Sep Plan: diabetic diet / f/u accuchecks / hypoglycemia protocol / sliding scale insulin / f/u A1C #Anemia of Chronic disease Plan: f/u iron panel and stool occult / soluble transferrin receptor (sTfR) which is a more sensitive indicator for iron deficiency, it will be high if the patient really has iron deficiency #Thrombocytopenia Hep B and C neg Plan; f/u w PCP for additional work-up #ESRD on HD since Feb 2015, MWF via eft upper arm arteriovenous fistula Plan:Sevelamer / nephro c/s #Osteoporosis / Renal Mineral bone disease Plan: Denosumab on an out pt basis #Dyslipidemia - Pravastatin #Debility uses a rolling walker/ BLE weakness / Spinal stenosis s/p lumbar laminectomy DVT PROPHYLAXIS: heparin SC DISPOSITION: pending clinical improvement Abdiel ALEXANDER, I+O VSAbdiel, I+O Laboratory Tests 03/30/20 19:55 03/31/20 06:41 03/31/20 10:00 Vital Signs Date Time Temp Pulse Resp B/P (MAP) Pulse Ox O2 Delivery O2 Flow Rate FiO2 03/31/20 08:37 168/73 03/31/20 08:37 80 03/31/20 02:44 97.1 18 95 Room Air 03/31/20 01:16 2.5 03/30/20 19:35 98 I&O- Last 24 Hours up to 6 AM 03/31/20 05:59 Intake Total 0 ml Output Total 0 ml Balance 0 ml PARUL PANTOJA MD Mar 31, 2020 11:06
[2020-03-31 11:07] LABS: TROPONIN I 0.03 NG/ML (< 0.10)
[2020-03-31 11:20] VITALS: BP_SYST 135; BP_SYST 161; BP_SYST 165; BP_DIAS 62; BP_DIAS 74; BP_DIAS 77
--- NOTE | 2020-03-31 11:35 | REPVR ---
PROCEDURE INFORMATION: Exam: MR Head Without Contrast Exam date and time: 03/31/2020 11:14 AM Age: 75 years old Clinical indication: Altered mental status/memory loss; Confusion or disorientation; Additional info: Frequent falls R/O vertibrobasillar insufficiency TECHNIQUE: Imaging protocol: MR of the head without contrast. COMPARISON: MRI-Brain without Contrast 03/04/2020 3:08 PM FINDINGS: Brain: No restricted diffusion is seen to suggest acute infarction. There is no acute intracranial hemorrhage, cerebral edema, or midline shift. Age-related cerebral and cerebellar substance loss is present. Scattered increased T2 and FLAIR signal within the periventricular and subcortical white matter is present. Increased T2 signal is also noted in the kush. This is nonspecific but likely related to advanced chronic microangiopathic ischemic changes. Cerebral ventricles: Mild ex vacuo dilation of the lateral and third ventricles is noted. There is moderate ex vacuo dilation of the 4th ventricle. Bones/joints: Unremarkable. Paranasal sinuses: Normal as visualized. No acute sinusitis. Mastoid air cells: Trace fluid is noted in the left mastoid air cells. Orbital cavity: Unremarkable. Soft tissues: Unremarkable. IMPRESSION: 1. No acute intracranial abnormality. 2. Chronic findings as discussed above. Electronically signed by: Raza Oshea On 03/31/2020 11:35:24 AM
[2020-03-31 12:09] LABS: FOLATE 10.6 NG/ML (>5.4)
[2020-03-31 13:31] LABS: MAGNESIUM LEVEL 2.4 MG/DL (1.8-2.4)
[2020-03-31 13:34] VITALS: BP 164/73
--- NOTE | 2020-03-31 20:50 | REPVR ---
PROCEDURE INFORMATION: Exam: US Duplex Bilateral Extracranial Arteries Exam date and time: 03/31/2020 8:19 PM Age: 75 years old Clinical indication: Dizziness and walking, difficulty; Additional info: Frequent falls R/O carotid stenosis TECHNIQUE: Imaging protocol: Real-time Duplex ultrasound scan of the bilateral carotid and vertebral arteries combining collins scale, color Doppler and spectral waveform analysis. Bilateral exam. COMPARISON: US Duplex,carotid (complete) 06/06/2017 8:09 PM FINDINGS: Right common carotid artery: Mild atherosclerosis.. No occlusion or stenosis. Waveforms are normal. Right internal carotid artery: Moderate to severe atherosclerotic narrowing. No significant velocity elevation. Waveforms are monophasic. Right ICA/CCA ratio: Within normal limits. 0.9. Right external carotid artery: No stenosis in the origin. Right vertebral artery: Unremarkable. Antegrade flow. Left common carotid artery: Mild atherosclerosis.. No occlusion or stenosis. Waveforms are normal. Left internal carotid artery: [id number] atherosclerotic calcification. No significant elevation of velocities. No occlusion or high-grade stenosis. Waveforms are normal. Left ICA/CCA ratio: Within normal limits. 0.5. Left external carotid artery: No stenosis in the origin. Left vertebral artery: Unremarkable. Antegrade flow. IMPRESSION: 1. Bilateral atherosclerotic calcification in the proximal internal carotid arteries, marked to severe on the right and [id number] on the left. No significant elevated velocities suggest a critical stenosis (? Mild stenosis disease), however further evaluation with CT or MRA suggested. 2. Antegrade flow both vertebral arteries. REFERENCES: SRU CRITERIA. The degree of internal carotid artery stenosis is based on criteria defined by the Society of Radiologists in Ultrasound (SRU). Normal is no stenosis. Mild is less than 50% stenosis. Moderate is 50-69% stenosis. Severe is greater than 69% stenosis to near occlusion. Near occlusion is a markedly narrowed lumen. Total occlusion is no detectable patent lumen. Electronically signed by: Jhonatan Sanchez On 03/31/2020 20:50:32 PM
[2020-03-31] MEDS: AUGMENTIN 500 MG TAB PO SCH (21:52)
[2020-03-31] MEDS: CO-ENZYME Q10 50 MG CAP PO SCH (21:52)
[2020-03-31 22:00] VITALS: BP 170/78
[2020-03-31] MEDS ORDERED: RAMELTEON 8 MG TAB (ROZEREM) PO ONE (22:30)
[2020-03-31 23:30] VITALS: BP 138/50
--- NOTE | 2020-03-31 23:42 | CR ---
NEPHROLOGY CONSULTATION DATE: 03/30/2020 REQUESTING PHYSICIAN: Dr. Sunil Villareal CONSULTING PHYSICIAN: Dr. Shamika Kiran REASON FOR CONSULTATION: Management of end-stage renal disease, on hemodialysis. CHIEF COMPLAINT: The patient presented to the hospital yesterday because of weakness and falls. HISTORY OF PRESENT ILLNESS: Bree Acosta is a 75-year-old female with a past medical history of end-stage renal disease, on hemodialysis q. Monday, Monday, Monday, history of CVA in the past, hypertension, ischemic cardiomyopathy with systolic congestive heart failure, multiple other comorbidities as mentioned below. She was at the dialysis center yesterday where she told the staff that she had fallen and she had been falling multiple times at home as well. Dialysis was done as an outpatient yesterday without Heparin and after that the patient was advised to come to the Emergency Room. She came to the E.R. yesterday for further evaluation. A CAT scan of the head was done yesterday which ruled out any evidence of bleeding. She was admitted under the Hospitalist Service and Nephrology Service was called for further help in the management of this patient with end-stage renal disease. I saw and evaluated the patient today morning at the bedside. She was getting ready to do her physical therapy when I saw her in the morning. She denied any acute complaints at this time apart from feeling weak and multiple falls. PAST MEDICAL HISTORY: The patient's past medical history is significant for: 1. End-stage renal disease, on hemodialysis q. Monday, Monday, Monday. 2. Ischemic cardiomyopathy. 3. Coronary artery disease, status post CABG, left ventricular ejection fraction of around 35%. 4. CVA with right sided weakness in the past. 5. Hypertension. 6. Diabetes mellitus type 2, insulin dependent. 7. Hyperlipidemia. 8. Spinal stenosis. 9. Anemia of end-stage renal disease. 10. Bronchiectasis. 11. Bilateral lower extremity weakness and she uses a walker. PAST SURGICAL HISTORY: The patient's past surgical history is significant for: 1. Status post coronary artery bypass grafting. 2. Status post lumbar laminectomy. 3. Status post AV fistula creation. 4. Status post hysterectomy. 5. History of fistulogram in the past. ALLERGIES: She is allergic to statins. FAMILY HISTORY: No significant family history of strokes or seizures. There is a positive history of coronary artery disease and end-stage renal disease in mother. SOCIAL HISTORY: She is an ex-smoker. She quit about 26 years ago. She denies any illicit drug abuse or alcohol abuse. She lives at home with her . REVIEW OF SYSTEMS: Constitutional: She reports feeling weak and tired. She denies any fevers or chills. Eyes: She denies any blurry vision, double vision. ENT: She denies any dysuria or odynophagia. Cardiovascular: She reports congestive heart failure but she denies any palpitations. Respiratory: She denies any shortness of breath. GI: She denies any nausea or vomiting. Genitourinary: She reports diffuse urine output. Musculoskeletal: She reports muscle weakness and falls. Skin: She denies any rashes or ulcers. Hematological/Oncological: She denies any easy bleeding or bruising. Psych: She denies any depression or anxiety. GAMING PIT BOSS: She reports lower extremity weakness. She denies any seizures. She does report a history of strokes. All other review of systems is negative. PHYSICAL EXAMINATION: GENERAL APPEARANCE: The patient is awake, alert, oriented x3, sitting up in the bed in no apparent distress. VITAL SIGNS: Temperature is 97 degrees Fahrenheit, blood pressure 164/73, pulse is 77, respiratory rate 18, saturating 100% on room air. HEAD AND NECK: Extraocular muscles intact. Pupils are equally round and reactive to light. Mucous membranes are moist. Neck is supple. There is no jugular venous distention. CARDIOVASCULAR: S1, S2, regular rate. EXTREMITIES: Trace edema of the bilateral lower extremities. RESPIRATORY: Chest is clear to auscultation bilaterally. Bilaterally currently no rales or rhonchi. ABDOMEN: Soft, positive bowel sounds, nontender, no organomegaly. . MUSCULOSKELETAL: No clubbing, no cyanosis. No edema of the extremities. GAMING PIT BOSS: No focal deficits. Power is 5/5 in all extremities. LABORATORY REVIEW: CBC showed a WBC of 5.3, hemoglobin 9.1, platelet count of 130. BMP showed sodium of 137, potassium 5.1, chloride 102, bicarbonate 28, BUN 32, creatinine is 6.9, A1c is 6.8. IMAGING DATA: A CAT scan of the head was done which showed no acute pathology. MRI of the brain was also done today. It showed no acute intracranial abnormality. CURRENT INPATIENT MEDICATIONS: The patient's medications were all reviewed by myself. She is on Tylenol, Mylanta, Amlodipine 5 mg p.o. daily, Augmentin 875 mg p.o. twice daily which I decreased the dose because of renal failure to 500 mg p.o. twice daily, Aspirin 81 mg daily, Tums 500 mg p.o. daily, Coreg 12.5 mg p.o. twice daily, Coenzyme-Q 10. Aranesp I started at 200 mcg daily. She is on Colace 100 mg p.o. twice daily, Heparin subcutaneously q. 8, Hydralazine 50 mg p.o. three times daily, Insulin Lispro sliding scale, Milk of Magnesia, Pravastatin 80 mg q. h.s. and Renvela 800 mg p.o. with meals. ASSESSMENT AND PLAN: 1. End-stage renal disease - The patient is dialysis dependent. The next hemodialysis will be done tomorrow morning as per her regular schedule. 2. Hypertension with a history of congestive heart failure - continue current dose of Amlodipine, Coreg and Hydralazine. Blood pressures are within the acceptable range. 3. Chronic kidney disease, mineral bone disease - continue current dose of Renvela with meals. 4. Anemia and end-stage renal disease - The patient will be given a dose of Aranesp with dialysis tomorrow. 5. History of CVA in the past - continue Aspirin 81 mg p.o. daily. Continue Pravastatin. Continue Co-Q 10 to prevent myalgias. 6. Ischemic cardiomyopathy volume status is optimized with dialysis. The patient is currently not on any diuretics. Antihypertensive management is as mentioned above. Thank you for involving me in the care of this patient. I shall be happy to follow the patient along with you tomorrow morning.
[2020-04-01 06:00] VITALS: BP 140/55
[2020-04-01] MEDS: HEPARIN SOD (PORCINE) 5000UNITS/ML 1ML VIAL/SYRINGE SC SCH ×3 (06:00→21:03)
[2020-04-01] MEDS: CALCIUM CARBONATE 500 MG CHEW U/D PO SCH (06:20)
[2020-04-01] MEDS: amLODIPine 5 MG TAB PO SCH (06:21)
[2020-04-01] MEDS: **hydrALAZINE** 50 MG TAB PO SCH ×3 (06:21→21:02)
[2020-04-01] MEDS: CARVedilol 12.5 MG TAB PO SCH ×2 (06:22→21:03)
[2020-04-01] MEDS: AUGMENTIN 500 MG TAB PO SCH ×2 (06:22→21:00)
[2020-04-01 06:40] LABS: HEMATOCRIT 30.1 % (36.0-47.0); HEMOGLOBIN 8.8 g/dl (12.0-15.5); MEAN CORPUSCULAR HEMOGLOBIN 25.7 pg (27.0-33.0); MEAN CORPUSCULAR HGB CONC 29.2 g/dl (32.0-36.5); MEAN CORPUSCULAR VOLUME 87.8 fl (80.0-96.0); PLATELET COUNT, AUTOMATED 132 10^3/uL (150-450); RED BLOOD COUNT 3.43 10^6/uL (4.00-5.40); WHITE BLOOD COUNT 5.3 10^3/uL (4.0-10.0)
[2020-04-01] MEDS ORDERED: LIDOCAINE 1% SDV 5ML VIAL SC PRN (06:45)
[2020-04-01] MEDS ORDERED: SODIUM CHLORIDE 0.9% 1000ML IV PRN (06:45)
[2020-04-01 07:04] LABS: CALCIUM LEVEL 9.4 MG/DL (8.8-10.2); CREATININE FOR GFR 8.5 MG/DL (0.55-1.30); GLOMERULAR FILTRATION RATE 5.9 (>39); POTASSIUM SERUM 4.7 MEQ/L (3.5-5.1)
[2020-04-01] MEDS: HumaLOG INSULIN (NovoLOG) PER UNIT SC SCH ×4 (07:30→21:00)
[2020-04-01] MEDS: EMLA CREAM 5GM TUBE (LIDOCAINE/PRILOCAINE) TOP SCH (07:52)
[2020-04-01] MEDS: (RENVELA) SEVELAMER **CARBONate** 800 MG TAB PO SCH ×3 (07:52→18:36)
[2020-04-01] MEDS: ACETAMINOPHEN TAB 650MG DOSE (2X325MG) PO PRN (10:38)
--- NOTE | 2020-04-01 13:06 | ECHO ---
DATE OF PROCEDURE: 03/31/2020 Age: 75 Gender: Female Height: 165 cm Weight: 63 kg REFERRING PHYSICIAN: Dr. Kiran. INDICATION: Congestive heart failure. MEASUREMENTS: LA 4.0 cm RV 1.2 cm LV 4.1 cm LVPW 1.3 cm Aorta 3.0 cm IVC 1.3 cm Left atrial volume index 35 Mitral E wave velocity 118 Mitral A wave 107 E prime septal 3.8 E prime lateral 4.2 FINDINGS: This study is of good technical quality. There is underlying sinus rhythm. Left ventricle is of normal size. Mild left ventricular hypertrophy is noted. There is segmental wall motion abnormality involving the distal inferior wall, apex, distal septum, and distal anterior wall. These segments are essentially akinetic. Remaining LV segments have preserved contractility. I estimate overall ejection fraction approximately 40%. Right ventricle is normal size and systolic function. Left atrium is at least borderline enlarged. The right atrium appears normal. Aortic valve is tricuspid. It is sclerotic, but has preserved mobility. Mitral, tricuspid, and pulmonic valves appear normal. No pericardial effusion is noted. Inferior vena cava is of normal size and appropriately collapses with inspiration indicative of normal central venous pressure. The aortic root is normal. Aortic arch was not visualized. The visualized segment of the abdominal aorta appears normal. Doppler interrogation of the aortic valve reveals no stenosis and trace insufficiency. There is also trace mitral and tricuspid insufficiency. Calculated pulmonary artery pressure is in the mid to high 30s corresponding to mild pulmonary hypertension. Mitral inflow pattern and tissue Doppler imaging of the mitral annulus revealed grade 2 diastolic dysfunction. CONCLUSIONS: 1. Study is of good technical quality, underlying sinus rhythm. 2. Normal LV size with mild left ventricular hypertrophy, segmental wall abnormality involving the mid and distal LAD territory and overall estimated LVEF approximately 40%. Grade 2 diastolic dysfunction. 3. Aortic sclerosis with no stenosis and trace insufficiency. 4. Trace mitral and tricuspid insufficiency. 5. Normal central venous pressure and likely mild pulmonary hypertension. MTDD
--- NOTE | 2020-04-01 13:09 | IPN ---
PROGRESS NOTE DATE: 04/01/2020 SUBJECTIVE: The patient was seen and examined at the bedside today morning during hemodialysis procedure. She is tolerating the hemodialysis procedure. She does report a headache today. Blood pressures are within the acceptable range. OBJECTIVE: VITAL SIGNS: Temperature is 96.7 degrees Fahrenheit, blood pressure 140/55, pulse is 72, respiratory rate is 16, saturating 100% on nasal cannula at 2 liters. INTAKE AND OUTPUT: Urine output is not recorded. Weight on the bed scale is 65.1 kg. PHYSICAL EXAMINATION: HEAD AND NECK: Extraocular muscles intact. Pupils equally round and reactive to light. She has mild facial edema. NECK: Supple. There is no JVD. CARDIOVASCULAR: S1 and S2, regular rate. No edema on the bilateral lower extremities. RESPIRATORY: Chest is clear to auscultation bilaterally, bilateral equal air entry. No rales or rhonchi. ABDOMEN: Soft, positive bowel sounds, nontender. No organomegaly. MUSCULOSKELETAL: No clubbing or cyanosis. Pulses are 2+. TONGUE AND GROOVE MACHINE SETTER: No focal deficit. Power is 5/5 in all extremities. LABORATORY DATA: CBC showed a WBC of 5.3, hemoglobin 8.8, platelets of 132,000. BMP showed a sodium of 136, potassium 4.7, chloride 99, bicarbonate 31, BUN 52, creatinine is 8.5. Calcium is 9.4. CURRENT INPATIENT MEDICATIONS: The patient's medications were all reviewed by myself. There is no significant change in the medications today as compared with yesterday. ASSESSMENT AND PLAN: 1. Endstage renal disease on hemodialysis. Patient is being dialyzed according to a regular schedule. Ultrafiltration goal is around 1.5 to 2 liters as tolerated by his blood pressure. 2. Hypertension. Continue current dose of amlodipine and Coreg, and Hydralazine. 3. Chronic systolic congestive heart failure. Volume status is optimized with dialysis. Continue current antihypertensive regimen as mentioned above. 4. Anemia and endstage renal disease. Continue current dose of Aranesp with dialysis. 5. Weakness and falls. Patient is getting Physical Therapy. She has a history of CVA in the past as well.
[2020-04-01 14:23] VITALS: BP 130/90
--- NOTE | 2020-04-01 17:07 | REPVR ---
PROCEDURE INFORMATION: Exam: MR Angiography Neck Without Contrast Exam date and time: 04/01/2020 3:09 PM Age: 75 years old Clinical indication: Abnormal findings; Abnormal carotid US; Additional info: Further eval for stenosis as per carotid US TECHNIQUE: Imaging protocol: Magnetic resonance angiography of the neck without contrast. COMPARISON: 1. MRA CAROTID WITHOUT CONTRAST 06/07/2017 12:44 PM 2. US Duplex,carotid (complete) 03/31/2020 8:02:08 PM FINDINGS: Right common carotid artery: No stenosis. No dissection or occlusion. Right internal carotid artery: No stenosis of the extracranial segment. No dissection or occlusion. Right external carotid artery: No stenosis. No dissection or occlusion of the origin. Right vertebral artery: There is possible mild/moderate stenosis involving the proximal right vertebral artery. Left common carotid artery: No stenosis. No dissection or occlusion. Left internal carotid artery: No stenosis of the extracranial segment. No dissection or occlusion. Left external carotid artery: No stenosis. No dissection or occlusion of the origin. Left vertebral artery: No stenosis. No dissection or occlusion. Lungs: A left pleural effusion is present. IMPRESSION: 1. No carotid stenosis 2. Possible mild/moderate stenosis of the proximal right vertebral artery 3. Left pleural effusion REFERENCES: NASCET CRITERIA. The degree of internal carotid artery stenosis is based on NASCET criteria. Normal is no stenosis. Mild is less than 50% stenosis. Moderate is 50-69% stenosis. Severe is 70% to 99% stenosis. Total occlusion is no detectable patent lumen. Electronically signed by: Raza Oshea On 04/01/2020 17:08:01 PM
[2020-04-01] MEDS: CO-ENZYME Q10 50 MG CAP PO SCH (21:01)
[2020-04-01] MEDS: PRAVASTATIN 20 MG TAB PO SCH (21:01)
[2020-04-01] MEDS: ASPIRIN 81 MG ENTERIC TAB PO SCH (21:02)
[2020-04-01 22:00] VITALS: BP 136/60
[2020-04-02] MEDS ORDERED: RAMELTEON 8 MG TAB (ROZEREM) PO ONE
[2020-04-02] MEDS: HEPARIN SOD (PORCINE) 5000UNITS/ML 1ML VIAL/SYRINGE SC SCH ×3 (05:59→21:46)
[2020-04-02] MEDS: ACETAMINOPHEN TAB 650MG DOSE (2X325MG) PO PRN ×4 (05:59→21:46)
[2020-04-02 06:00] VITALS: BP 134/62
[2020-04-02 06:28] LABS: HEMOGLOBIN 9.3 g/dl (12.0-15.5); MEAN CORPUSCULAR HEMOGLOBIN 25.8 pg (27.0-33.0); MEAN CORPUSCULAR HGB CONC 29.1 g/dl (32.0-36.5); MEAN CORPUSCULAR VOLUME 88.9 fl (80.0-96.0); PLATELET COUNT, AUTOMATED 136 10^3/uL (150-450); WHITE BLOOD COUNT 5.3 10^3/uL (4.0-10.0)
[2020-04-02 06:43] LABS: CALCIUM LEVEL 9.3 MG/DL (8.8-10.2); CREATININE FOR GFR 5.68 MG/DL (0.55-1.30); GLOMERULAR FILTRATION RATE 9.4 (>39); POTASSIUM SERUM 4.5 MEQ/L (3.5-5.1)
[2020-04-02] MEDS: CALCIUM CARBONATE 500 MG CHEW U/D PO SCH (08:32)
[2020-04-02] MEDS: AUGMENTIN 500 MG TAB PO SCH (08:33)
[2020-04-02] MEDS: CARVedilol 12.5 MG TAB PO SCH ×2 (08:33→21:45)
[2020-04-02] MEDS: amLODIPine 5 MG TAB PO SCH (08:33)
[2020-04-02] MEDS: **hydrALAZINE** 50 MG TAB PO SCH (08:33)
[2020-04-02] MEDS: (RENVELA) SEVELAMER **CARBONate** 800 MG TAB PO SCH ×3 (08:33→16:57)
[2020-04-02 08:35] VITALS: BP 156/60
[2020-04-02] MEDS: HumaLOG INSULIN (NovoLOG) PER UNIT SC SCH ×4 (08:35→21:00)
[2020-04-02 10:15] VITALS: BP 98/42
--- NOTE | 2020-04-02 11:39 | IPNPDOC ---
Text Note Date of Service The patient was seen on 04/01/20. NOTE Subjective: Patient seen and examined at bedside. No acute overnight events reported. Patient has no new medical complaints this morning. Objective: General: NAD, lying comfortably in bed HEENT: NC/AT Lungs: CTA B/L Heart: +S1S2, RRR Abd: soft, NT, +BS Ext: no edema A/P: 75F with PMHx including HFpEF, CVA, HTN, IDDM, dyslipidemia, ESRD, anemia of chronic disease, CAD/CABG, sleep-disordered breathing, and debility who came in for evaluation of frequent falls. #Falls - Possiby 2/2 weakness vs CVA - workup unrevealing - continue with PT/OT #Chest pain or palpitations ? - workup up unrevealing #hx of CVA with right sided weakness /small vessel ischemic disease - Aspirin, Pravastatin #CAD s/p CABG / Ischemic cardiomyopathy / Chronic HFrEF 34% with HFpEF -Aspirin, Pravastatin #HTN - continue home Amlodipine, Carvedilol, Hydralazine # IDDM2 - stable #Anemia of Chronic disease - aranesp with HD #Thrombocytopenia - no bleeding #ESRD/HD - MWF via eft upper arm arteriovenous fistula #Osteoporosis / Renal Mineral bone disease Plan: Denosumab on an out pt basis #Dyslipidemia - Pravastatin #Debility uses a rolling walker/ BLE weakness / Spinal stenosis s/p lumbar laminectomy - as above, pending further PT DVT PROPHYLAXIS: heparin SC DISPOSITION: pending further eval by PT for safe discharge home VS,Fishbone, I+O VS, Fishbone, I+O Laboratory Tests 04/02/20 05:51 Vital Signs Date Time Temp Pulse Resp B/P (MAP) Pulse Ox O2 Delivery O2 Flow Rate FiO2 04/02/20 10:15 82 98/42 (60) 04/02/20 06:00 97.6 16 100 Nasal Cannula 2.0 03/30/20 19:35 98 I&O- Last 24 Hours up to 6 AM 04/02/20 06:00 Intake Total 730 ml Output Total 1620 ml Balance -890 ml PARUL PANTOJA MD Apr 02, 2020 11:39
--- NOTE | 2020-04-02 11:41 | IPNPDOC ---
Text Note Date of Service The patient was seen on 04/02/20. NOTE Subjective: Patient seen and examined at bedside. No acute overnight events reported. Patient has no new medical complaints this morning. Objective: General: NAD, lying comfortably in bed HEENT: NC/AT Lungs: CTA B/L Heart: +S1S2, RRR Abd: soft, NT, +BS Ext: no edema A/P: 75F with PMHx including HFpEF, CVA, HTN, IDDM, dyslipidemia, ESRD, anemia of chronic disease, CAD/CABG, sleep-disordered breathing, and debility who came in for evaluation of frequent falls. #Falls - Possiby 2/2 weakness vs CVA - workup unrevealing - continue with PT/OT #Chest pain or palpitations ? - workup up unrevealing #hx of CVA with right sided weakness /small vessel ischemic disease - Aspirin, Pravastatin - no acute pathology #CAD s/p CABG #CHF - compensated - echo shows systolic and diastolic dysfunction #HTN - this morning she developed symptomatic hypotension after receiving her home medications - medications have been adjusted - coreg 12.5 BID, hydralazine 25 TID, losartan 25 daily # IDDM2 - stable #Anemia of Chronic disease - aranesp with HD #Thrombocytopenia - no bleeding #ESRD/HD - MWF via eft upper arm arteriovenous fistula #Osteoporosis / Renal Mineral bone disease Plan: Denosumab on an out pt basis #Dyslipidemia - Pravastatin #Debility uses a rolling walker/ BLE weakness / Spinal stenosis s/p lumbar laminectomy - as above, pending further PT DVT PROPHYLAXIS: heparin SC DISPOSITION: pending further eval by PT for safe discharge home VS,Abdiel, I+O VS, Abdiel, I+O Laboratory Tests 04/02/20 05:51 Vital Signs Date Time Temp Pulse Resp B/P (MAP) Pulse Ox O2 Delivery O2 Flow Rate FiO2 04/02/20 10:15 82 98/42 (60) 04/02/20 06:00 97.6 16 100 Nasal Cannula 2.0 03/30/20 19:35 98 I&O- Last 24 Hours up to 6 AM 04/02/20 06:00 Intake Total 730 ml Output Total 1620 ml Balance -890 ml PARUL PANTOJA MD Apr 02, 2020 11:41
--- NOTE | 2020-04-02 13:00 | IPNPDOC ---
Subjective Date Seen The patient was seen on 04/02/20. Subjective Chief Complaint/HPI Pt complains of feeling dizzy and weak. Nursing staff states that pt's BP was 156/60 prior to receiving hydralazine, Coreg, and amlodipine. One hour after receiving these medications, pt's BP dropped to 98/42. Since then, she feels dizzy when she gets up, so is in bed. She is tolerating oral intake well and nursing staff denies any overnight events. General: Denies: ROS Unobtainable, Chills, Night Sweats, Fatigue, Malaise, Normal Appetite, Other Symptoms Constitutional: Reports: Weakness (with slight dizziness started this morning) Pulmonary: Denies: Dyspnea, Cough, Pleuritic Chest Pain, Other Symptoms Cardiovascular: Denies: Chest Pain, Palpitations, Orthopnea, Paroxysmal Noc. Dyspnea, Edema, Lt Headedness, Other Symptoms Objective Physical Examination General Exam: Positive: Alert, Cooperative, No Acute Distress Chest Exam: Positive: Clear to auscultation, Normal air movement; Negative: Rales, Rhonchi, Wheezing Heart Exam: Positive: Rate Normal, Regular Rhythm, Normal S1, Normal S2 Abdomen Exam: Positive: Normal bowel sounds, Soft; Negative: Tenderness Extremity Exam: Negative: Edema Assessment /Plan Assessment # ESRD HD-dependent: Patient is being dialyzed according to a regular schedule: MWF. Ultrafiltration goal is around 1.5 to 2 liters as tolerated by his blood pressure. # Hypertension: Pt was slightly hypotensive in the AM one hour after receiving her regular anti-hypertensive regimen. Stop amlodipine, continue Coreg, decreased Hydralazine, and added Losartan. # Chronic systolic congestive heart failure: Volume status is optimized with dialysis. Continue current antihypertensive regimen as mentioned above. # Anemia of chronic disease: Continue current dose of Aranesp with dialysis. # Weakness and falls: Continue Physical Therapy. She has a history of CVA in the past as well. Plan/VTE VTE Prophylaxis Ordered?: Yes (Pt is on Heparin.) GME ATTESTATION My faculty preceptor for this patient encounter was physically present during the encounter and was fully available. All aspects of the patient interview, examination, medical decision making process, and medical care plan development were reviewed and approved by the faculty preceptor. The faculty preceptor is aware and concurs with the plan as stated in the body of this note and will attest to such by his/her cosignature. VS, I&O, 24H, Fishbone Vital Signs/I&O Vital Signs Date Time Temp Pulse Resp B/P (MAP) Pulse Ox O2 Delivery O2 Flow Rate FiO2 04/02/20 10:15 82 98/42 (60) 04/02/20 06:00 97.6 16 100 Nasal Cannula 2.0 03/30/20 19:35 98 I&O- Last 24 Hours up to 6 AM 04/02/20 06:00 Intake Total 730 ml Output Total 1620 ml Balance -890 ml Laboratory Data 24H LABS Laboratory Tests 2 04/01/20 20:59: Bedside Glucose (Misc Panel) 177H 04/02/20 05:51: Nucleated Red Blood Cells % (auto) 0.4H, Anion Gap 6L, Glomerular Filtration Rate 9.4L, Calcium Level 9.3 04/02/20 11:39: Bedside Glucose (Misc Panel) 146H CBC/BMP Laboratory Tests 04/02/20 05:51 Attending Note Attending Note ESRD on HD chronic Combined Systolic and diastolic CHF HTN Anemia in ESRD Weakness and falls. HS as per schedule. UF ~2.5Kg. Non compliance with antihypertensive as outpatient. She takes Coreg only. cont PT. OK to DC home when she is cleared by PT. Hiren Kiran DO Apr 02, 2020 13:00 LIDIA KIRAN MD Apr 07, 2020 13:39
[2020-04-02] MEDS: **hydrALAZINE HCL** 25 MG TAB PO SCH ×2 (13:56→21:00)
[2020-04-02 14:00] VITALS: BP 104/52
[2020-04-02] MEDS: ASPIRIN 81 MG ENTERIC TAB PO SCH (21:45)
[2020-04-02] MEDS: PRAVASTATIN 20 MG TAB PO SCH (21:46)
[2020-04-02] MEDS: CO-ENZYME Q10 50 MG CAP PO SCH (21:55)
[2020-04-02 22:00] VITALS: BP 126/68
[2020-04-03] MEDS: ACETAMINOPHEN TAB 650MG DOSE (2X325MG) PO PRN ×2 (03:04→21:28)
[2020-04-03] MEDS: RAMELTEON 8 MG TAB (ROZEREM) PO PRN ×2 (03:04→21:26)
[2020-04-03 06:00] VITALS: BP 158/62
[2020-04-03] MEDS: EMLA CREAM 5GM TUBE (LIDOCAINE/PRILOCAINE) TOP SCH (06:00)
[2020-04-03] MEDS: (RENVELA) SEVELAMER **CARBONate** 800 MG TAB PO SCH ×3 (06:15→17:52)
[2020-04-03] MEDS: ASPIRIN 81 MG ENTERIC TAB PO SCH (06:15)
[2020-04-03] MEDS: DOCUSATE SODIUM 100MG CAPSULE PO PRN (06:15)
[2020-04-03] MEDS: CALCIUM CARBONATE 500 MG CHEW U/D PO SCH (06:15)
[2020-04-03] MEDS: CARVedilol 12.5 MG TAB PO SCH ×2 (06:18→21:25)
[2020-04-03] MEDS: HEPARIN SOD (PORCINE) 5000UNITS/ML 1ML VIAL/SYRINGE SC SCH ×4 (06:19→21:31)
[2020-04-03 07:01] LABS: HEMATOCRIT 33.1 % (36.0-47.0); HEMOGLOBIN 9.6 g/dl (12.0-15.5); MEAN CORPUSCULAR HEMOGLOBIN 25.8 pg (27.0-33.0); PLATELET COUNT, AUTOMATED 145 10^3/uL (150-450); RED BLOOD COUNT 3.72 10^6/uL (4.00-5.40); WHITE BLOOD COUNT 5.9 10^3/uL (4.0-10.0)
[2020-04-03 07:27] LABS: CALCIUM LEVEL 9.6 MG/DL (8.8-10.2); CREATININE FOR GFR 7.52 MG/DL (0.55-1.30); GLOMERULAR FILTRATION RATE 6.8 (>39); POTASSIUM SERUM 4.7 MEQ/L (3.5-5.1)
[2020-04-03] MEDS ORDERED: LIDOCAINE 1% SDV 5ML VIAL SC PRN (07:30)
[2020-04-03] MEDS ORDERED: SODIUM CHLORIDE 0.9% 1000ML IV PRN (07:30)
[2020-04-03] MEDS: **hydrALAZINE HCL** 25 MG TAB PO SCH (07:34)
[2020-04-03] MEDS: HumaLOG INSULIN (NovoLOG) PER UNIT SC SCH ×4 (07:41→21:00)
[2020-04-03] MEDS ORDERED: COZA1TAB PO (08:19)
[2020-04-03] MEDS ORDERED: HYDR25TA PO (08:19)
[2020-04-03] MEDS ORDERED: LOSARTAN 25 MG TAB PO SCH (09:00)
[2020-04-03 14:00] VITALS: BP 145/80
--- NOTE | 2020-04-03 18:28 | IPN ---
NEPHROLOGY PROGRESS NOTE DATE: 04/03/2020 SUBJECTIVE: Patient was seen and examined at the bedside today morning. She is afebrile and hemodynamically stable today. She was cleared by physical therapy, however, the patient refused to leave and she reports that she is having generalized body aches and pains. OBJECTIVE: VITAL SIGNS: Temperature 96.5 degrees Fahrenheit, blood pressure 145/80, pulse 79, respiratory rate 20, saturating 93% on room air. INTAKE AND OUTPUT: Urine output recorded as 300 mL. Weight in the bed scale is 65.4 kg. PHYSICAL EXAMINATION: GENERAL: Patient is awake, alert and oriented x3, lying in bed in no apparent distress. HEAD/NECK: Extraocular muscles intact. Pupils equally round and reactive to light. Mucous membranes are moist. Neck is supple. There is no JVD. CARDIOVASCULAR: S1, S2, regular rate. No edema of the bilateral lower extremities. RESPIRATORY: Chest is clear to auscultation bilaterally. Bilateral equal air entry. No rales or rhonchi. ABDOMEN: Soft, positive bowel sounds, nontender. No organomegaly. MUSCULOSKELETAL: No clubbing or cyanosis. Pulses are 2+. RESISTOR COATER: No focal deficit. Power is 5/5 in all extremities. LABORATORY REVIEW: CBC showed WBC 5.9, hemoglobin 9.6, platelets 145,000. BMP showed sodium 135, potassium 4.7, chloride 97, bicarb 29, BUN 47, creatinine 7.5. CURRENT INPATIENT MEDICATIONS: Patient's medications were all reviewed by myself. Her Losartan was held today because of low blood pressures and Hydralazine was stopped because it has not been administered since yesterday. No other significant change in the medications. ASSESSMENT AND PLAN: 1. End-stage renal disease: Today is patient's regular day of dialysis, however, she refused to leave and because of busy inpatient schedule, she will be dialyzed tomorrow morning. Ultrafiltration goal will be around 2 liters as tolerated by his blood pressure. 2. Hypertension: Patient is noncompliant with her medications as an outpatient. Her Amlodipine has been stopped. Hydralazine has been stopped. She could not even get Losartan because of low blood pressures. Continue Coreg only at this time. 3. Chronic systolic congestive heart failure: Volume status is optimized with dialysis. She is noncompliant with the medications as an outpatient. Angiotensin receptor shante has been stopped. 4. Anemia and end-stage renal disease: She is getting Aranesp with dialysis over here. The rest of the anemia management will be done as an outpatient as per outpatient protocol. DISPOSITION: Patient is optimized to be discharged from nephrology standpoint whenever she agrees to leave the hospital. If she stays in the hospital by tomorrow, she will be dialyzed.
[2020-04-03] MEDS: PRAVASTATIN 20 MG TAB PO SCH (21:25)
[2020-04-03] MEDS: CO-ENZYME Q10 50 MG CAP PO SCH (21:25)
[2020-04-03 22:00] VITALS: BP 160/78
[2020-04-04 06:00] VITALS: BP 169/78
[2020-04-04] MEDS: HEPARIN SOD (PORCINE) 5000UNITS/ML 1ML VIAL/SYRINGE SC SCH ×3 (06:00→21:33)
[2020-04-04] MEDS: DOCUSATE SODIUM 100MG CAPSULE PO PRN (06:32)
[2020-04-04] MEDS: CARVedilol 12.5 MG TAB PO SCH ×2 (06:32→21:33)
[2020-04-04] MEDS: CALCIUM CARBONATE 500 MG CHEW U/D PO SCH (06:32)
[2020-04-04 06:35] LABS: HEMATOCRIT 30.2 % (36.0-47.0); HEMOGLOBIN 8.7 g/dl (12.0-15.5); MEAN CORPUSCULAR HEMOGLOBIN 25.7 pg (27.0-33.0); MEAN CORPUSCULAR HGB CONC 28.8 g/dl (32.0-36.5); MEAN CORPUSCULAR VOLUME 89.3 fl (80.0-96.0); PLATELET COUNT, AUTOMATED 137 10^3/uL (150-450); RED BLOOD COUNT 3.38 10^6/uL (4.00-5.40); WHITE BLOOD COUNT 5.4 10^3/uL (4.0-10.0)
[2020-04-04 07:00] LABS: CALCIUM LEVEL 9.2 MG/DL (8.8-10.2); CREATININE FOR GFR 9.04 MG/DL (0.55-1.30); GLOMERULAR FILTRATION RATE 5.5 (>39); POTASSIUM SERUM 4.9 MEQ/L (3.5-5.1)
--- NOTE | 2020-04-04 07:00 | IPNPDOC ---
Text Note Date of Service The patient was seen on 04/03/20. NOTE Subjective: Patient seen and examined at bedside. No acute overnight events reported. Patient has no new medical complaints this morning. Objective: General: NAD, lying comfortably in bed HEENT: NC/AT Lungs: CTA B/L Heart: +S1S2, RRR Abd: soft, NT, +BS Ext: no edema A/P: 75F with PMHx including HFpEF, CVA, HTN, IDDM, dyslipidemia, ESRD, anemia of chronic disease, CAD/CABG, sleep-disordered breathing, and debility who came in for evaluation of frequent falls. #Falls - Possiby 2/2 weakness vs CVA - workup unrevealing - continue with PT/OT #Chest pain or palpitations ? - workup up unrevealing #hx of CVA with right sided weakness /small vessel ischemic disease - Aspirin, Pravastatin - no acute pathology #CAD s/p CABG #CHF - compensated - echo shows systolic and diastolic dysfunction #HTN - still titrating her meds - difficult given her non-compliance with taking medications and dietary indiscretion as an outpatient # IDDM2 - stable #Anemia of Chronic disease - aranesp with HD #Thrombocytopenia - no bleeding #ESRD/HD - MWF via eft upper arm arteriovenous fistula - HD on hold for today - to resume tomorrow #Osteoporosis / Renal Mineral bone disease Plan: Denosumab on an out pt basis #Dyslipidemia - Pravastatin #Debility uses a rolling walker/ BLE weakness / Spinal stenosis s/p lumbar laminectomy - as above, pending further PT DVT PROPHYLAXIS: heparin SC DISPOSITION: was cleared for discharge, however patient refused to leave today, anticipating discharge and HD tomorrow VS,[place], I+O VS, Fishbone, I+O Laboratory Tests 04/04/20 06:11 Vital Signs Date Time Temp Pulse Resp B/P (MAP) Pulse Ox O2 Delivery O2 Flow Rate FiO2 04/04/20 06:32 79 169/78 04/03/20 22:00 98.3 17 100 Nasal Cannula 2.0 03/30/20 19:35 98 I&O- Last 24 Hours up to 6 AM 04/04/20 06:00 Intake Total 1260 ml Output Total 300 ml Balance 960 ml PARUL PANTOJA MD Apr 04, 2020 07:00
[2020-04-04] MEDS: (RENVELA) SEVELAMER **CARBONate** 800 MG TAB PO SCH ×3 (08:00→18:16)
[2020-04-04] MEDS: HumaLOG INSULIN (NovoLOG) PER UNIT SC SCH ×4 (08:00→21:00)
[2020-04-04] MEDS ORDERED: EMLA CREAM 5GM TUBE (LIDOCAINE/PRILOCAINE) TOP ONE (08:00)
[2020-04-04 14:00] VITALS: BP 166/77
--- NOTE | 2020-04-04 19:40 | IPN ---
PROGRESS NOTE DATE: 04/04/2020 SUBJECTIVE: Patient was seen and examined at the bedside today morning during hemodialysis procedure. She is tolerating the hemodialysis procedure well. She denies any active complaints at this time apart from generalized weakness and body aches. OBJECTIVE: VITAL SIGNS: Temperature 98.5 degrees Fahrenheit, blood pressure 169/78, pulse 79, respiratory rate 19, saturating 100% on nasal cannula at 2 liters. INTAKE AND OUTPUT: Urine output recorded from yesterday is 300 mL. Weight in the bed scale is 63.5 kg. PHYSICAL EXAMINATION: GENERAL: Patient is awake, alert and oriented x3, lying in bed in no apparent distress. HEAD/NECK: Extraocular muscles intact. Pupils equally round and reactive to light. Mucous membranes are moist. Neck is supple. There is no JVD. CARDIOVASCULAR: S1, S2, regular rate. No edema of the bilateral lower extremities. RESPIRATORY: Chest is clear to auscultation bilaterally. Bilateral equal air entry. No rales or rhonchi. ABDOMEN: Soft, positive bowel sounds, nontender. No organomegaly. MUSCULOSKELETAL: No clubbing or cyanosis. Pulses are 2+. ELECTRONEURODIAGNOSTIC TECHNICIAN: No focal deficit. Power is 5/5 in all extremities. LABORATORY REVIEW: CBC showed WBC 5.4, hemoglobin 8.7, platelets 137,000. BMP showed sodium 133, potassium 4.9, chloride 98, bicarb 27, BUN 63, creatinine 9. CURRENT INPATIENT MEDICATIONS: Patient's medications were all reviewed by myself. No other significant change in the medications today as compared with yesterday. ASSESSMENT AND PLAN: 1. End-stage renal disease: Patient is being dialyzed today. Ultrafiltration goal will be 2 liters as tolerated by her blood pressure. 2. Hypertension: Continue current dose of Coreg. Amlodipine and Hydralazine were stopped because they were not being given because of holding perimeters. 3. Chronic systolic congestive heart failure: Patient is noncompliant with her medications as an outpatient. Volume is managed with dialysis. Continue current dose of Coreg only. 4. Chronic kidney disease/mineral bone disease: Continue current dose of Renvela. 5. Anemia and end-stage renal disease: Continue Aranesp with dialysis.
[2020-04-04] MEDS: PRAVASTATIN 20 MG TAB PO SCH (21:32)
[2020-04-04] MEDS: RAMELTEON 8 MG TAB (ROZEREM) PO PRN (21:33)
[2020-04-04] MEDS: CO-ENZYME Q10 50 MG CAP PO SCH (21:33)
[2020-04-04] MEDS: ACETAMINOPHEN TAB 650MG DOSE (2X325MG) PO PRN (21:34)
[2020-04-04] MEDS: ASPIRIN 81 MG ENTERIC TAB PO SCH (21:36)
[2020-04-04 22:00] VITALS: BP 158/64
[2020-04-04] MEDS ORDERED: traMADol 50 MG TAB PO ONE (23:15)
[2020-04-05 06:00] VITALS: BP 125/71
[2020-04-05] MEDS: HEPARIN SOD (PORCINE) 5000UNITS/ML 1ML VIAL/SYRINGE SC SCH ×3 (06:00→21:22)
[2020-04-05 06:54] LABS: HEMATOCRIT 31.4 % (36.0-47.0); HEMOGLOBIN 9.1 g/dl (12.0-15.5); MEAN CORPUSCULAR HEMOGLOBIN 25.9 pg (27.0-33.0); MEAN CORPUSCULAR VOLUME 89.5 fl (80.0-96.0); PLATELET COUNT, AUTOMATED 139 10^3/uL (150-450); RED BLOOD COUNT 3.51 10^6/uL (4.00-5.40); WHITE BLOOD COUNT 5.3 10^3/uL (4.0-10.0)
[2020-04-05 07:15] LABS: CALCIUM LEVEL 8.9 MG/DL (8.8-10.2); CREATININE FOR GFR 6.19 MG/DL (0.55-1.30); GLOMERULAR FILTRATION RATE 8.5 (>39); POTASSIUM SERUM 4.7 MEQ/L (3.5-5.1)
[2020-04-05] MEDS: HumaLOG INSULIN (NovoLOG) PER UNIT SC SCH ×4 (07:30→21:00)
[2020-04-05] MEDS: (RENVELA) SEVELAMER **CARBONate** 800 MG TAB PO SCH ×3 (08:07→18:30)
[2020-04-05] MEDS: CALCIUM CARBONATE 500 MG CHEW U/D PO SCH (08:07)
[2020-04-05] MEDS: DOCUSATE SODIUM 100MG CAPSULE PO PRN (08:07)
[2020-04-05] MEDS: CARVedilol 12.5 MG TAB PO SCH ×2 (08:11→21:37)
[2020-04-05 10:15] VITALS: BP 141/73
--- NOTE | 2020-04-05 10:49 | IPNPDOC ---
Text Note Date of Service The patient was seen on 04/04/20. NOTE Subjective: Patient seen and examined at bedside. No acute overnight events reported. Patient has no new medical complaints this morning. Objective: General: NAD, lying comfortably in bed HEENT: NC/AT Lungs: CTA B/L Heart: +S1S2, RRR Abd: soft, NT, +BS Ext: no edema A/P: 75F with PMHx including HFpEF, CVA, HTN, IDDM, dyslipidemia, ESRD, anemia of chronic disease, CAD/CABG, sleep-disordered breathing, and debility who came in for evaluation of frequent falls. #Falls - Possiby 2/2 weakness vs CVA - workup unrevealing #Chest pain or palpitations ? - workup up unrevealing #hx of CVA with right sided weakness /small vessel ischemic disease - Aspirin, Pravastatin - no acute pathology #CAD s/p CABG #CHF - compensated - echo shows systolic and diastolic dysfunction #HTN - still titrating her meds - difficult given her non-compliance with taking medications and dietary indiscretion as an outpatient # IDDM2 - stable #Anemia of Chronic disease - aranesp with HD #Thrombocytopenia - no bleeding #ESRD/HD - MWF via eft upper arm arteriovenous fistula - HD on hold for today - to resume tomorrow #Osteoporosis / Renal Mineral bone disease Plan: Denosumab on an out pt basis #Dyslipidemia - Pravastatin #Debility uses a rolling walker/ BLE weakness / Spinal stenosis s/p lumbar laminectomy - home/services DVT PROPHYLAXIS: heparin SC DISPOSITION: was cleared for discharge, however patient refused to leave today; discussed at length her issues with discharge ADDENDUM: Later in day there was an apparent fall. Workup including CT heat, xray hip unrevealing. VS,Fishbone, I+O VS, Fishbone, I+O Laboratory Tests 04/05/20 06:03 04/05/20 06:04 Vital Signs Date Time Temp Pulse Resp B/P (MAP) Pulse Ox O2 Delivery O2 Flow Rate FiO2 04/05/20 09:00 2.0 04/05/20 08:11 82 146/82 04/05/20 06:00 97.3 18 100 Room Air 03/30/20 19:35 98 I&O- Last 24 Hours up to 6 AM 04/05/20 06:00 Intake Total 870 ml Output Total 2250 ml Balance -1380 ml PARUL PANTOJA MD Apr 05, 2020 10:49
--- NOTE | 2020-04-05 11:49 | REP ---
INDICATION: post fall. COMPARISON: 03/30/2020. TECHNIQUE: CT BRAIN PERFORMED IN THE AXIAL PLANE. CORONAL RECONSTRUCTION IMAGES ARE PERFORMED. FINDINGS: Moderate diffuse atrophy is again noted as well as chronic periventricular small vessel ischemic changes in the white matter. There is no midline shift or mass effect. Small basal ganglia calcifications are noted. There is no acute intracranial hemorrhage or extra-axial fluid collection. No skull fracture is seen. There are vascular calcifications in the carotid siphons. The visualized mastoid air cells and paranasal sinuses are clear. IMPRESSION: No acute intracranial hemorrhage, midline shift or mass effect. No skull fracture. Stable chronic findings. <Electronically signed by Bebeto Tripp > 04/05/20 [id number]
[2020-04-05] MEDS ORDERED: LIDOCAINE 1% SDV 5ML VIAL SC PRN (12:45)
[2020-04-05 14:00] VITALS: BP 153/74
--- NOTE | 2020-04-05 14:35 | REP ---
INDICATION: fall. COMPARISON: 01/02/2015. TECHNIQUE: Two views right hip. FINDINGS: There is no evidence of acute fracture, dislocation or intrinsic bone disease. Minor arthritic changes are seen at the hip joint, with minor joint space narrowing and subchondral sclerosis. Vascular calcifications are seen in the soft tissues. There is a metallic clip in the proximal medial thigh soft tissues below the right ischial tuberosity. IMPRESSION: Minor degenerative changes of the hip joint without evidence of acute fracture or dislocation. <Electronically signed by Bebeto Tripp > 04/05/20 [id number]
[2020-04-05] MEDS: CO-ENZYME Q10 50 MG CAP PO SCH (21:36)
[2020-04-05] MEDS: ACETAMINOPHEN TAB 650MG DOSE (2X325MG) PO PRN (21:37)
[2020-04-05] MEDS: ASPIRIN 81 MG ENTERIC TAB PO SCH (21:37)
[2020-04-05] MEDS: PRAVASTATIN 20 MG TAB PO SCH (21:37)
[2020-04-05] MEDS: RAMELTEON 8 MG TAB (ROZEREM) PO PRN (21:37)
[2020-04-05 22:00] VITALS: BP 160/89
--- NOTE | 2020-04-05 23:32 | IPN ---
NEPHROLOGY PROGRESS NOTE DATE: 04/05/2020 SUBJECTIVE: Patient was seen and examined at the bedside today morning. She is afebrile and hemodynamically stable. She was dialyzed yesterday. She tolerated the hemodialysis procedure well, however, she reports that she fell in the rest room and she is complaining of pain in the right hip today, but otherwise she was able to walk. OBJECTIVE: VITAL SIGNS: Temperature 98.4 degrees Fahrenheit, blood pressure 153/74, pulse 79, respiratory rate 18, saturating 96% on room air. INTAKE AND OUTPUT: Urine output recorded as 350 mL. Ultrafiltration with hemodialysis was 2 liters. Weight in the bed scale is 64.4 kg. PHYSICAL EXAMINATION: GENERAL: Patient is awake, alert and oriented x3, lying in bed in no apparent distress. HEAD/NECK: Extraocular muscles intact. Pupils equally round and reactive to light. Mucous membranes are moist. Neck is supple. There is no JVD. CARDIOVASCULAR: S1, S2, regular rate. No edema of the bilateral lower extremities. RESPIRATORY: Chest is clear to auscultation bilaterally. Bilateral equal air entry. No rales or rhonchi. ABDOMEN: Soft, positive bowel sounds, nontender. No organomegaly. MUSCULOSKELETAL: No clubbing or cyanosis. Pulses are 2+. IMMUNOLOGY SPECIALIST: No focal deficit. Power is 5/5 in all extremities. LABORATORY REVIEW: CBC showed WBC 5.3, hemoglobin 9.1, platelets 139,000. BMP showed sodium 136, potassium 4.7, chloride 98, bicarb 30, BUN 39, creatinine 6.1. IMAGING STUDIES: A CAT scan of the head was done because of recent fall, which showed no acute intracranial hemorrhage or skull fracture. An x-ray of the right hip was also done, which showed minor degenerative changes of the hip joint without evidence of acute fracture or dislocation. CURRENT INPATIENT MEDICATIONS: Patient's medications were all reviewed by myself. There is no significant change in the medications today as compared with yesterday. ASSESSMENT AND PLAN: 1. End-stage renal disease: Patient's regular dialysis days are Monday, Monday and Monday, however, she was dialyzed off schedule because of her discharge being cancelled because of her generalized body aches and pains. I will try to put her back on her Monday, Monday, Monday schedule tomorrow. 2. Hypertension: Continue current dose of Coreg. Amlodipine and Hydralazine have been stopped. Blood pressures are optimal. 3. Chronic systolic congestive heart failure: Patient is not on any diuretics. Volume is optimized with dialysis. 4. Chronic kidney disease/mineral bone disease: Continue Renvela. 5. Anemia and end-stage renal disease: Hemoglobin level is optimal and improving. Continue current dose of Renvela and also current dose of Aranesp with dialysis.
[2020-04-06] MEDS: ACETAMINOPHEN TAB 650MG DOSE (2X325MG) PO PRN (01:39)
[2020-04-06] MEDS: HEPARIN SOD (PORCINE) 5000UNITS/ML 1ML VIAL/SYRINGE SC SCH ×3 (05:08→21:18)
[2020-04-06 06:00] VITALS: BP 162/77
[2020-04-06] MEDS: EMLA CREAM 5GM TUBE (LIDOCAINE/PRILOCAINE) TOP SCH (06:00)
[2020-04-06] MEDS: CALCIUM CARBONATE 500 MG CHEW U/D PO SCH (06:18)
[2020-04-06] MEDS: CARVedilol 12.5 MG TAB PO SCH ×2 (06:18→21:17)
[2020-04-06] MEDS: (RENVELA) SEVELAMER **CARBONate** 800 MG TAB PO SCH ×3 (06:18→18:22)
[2020-04-06] MEDS: HumaLOG INSULIN (NovoLOG) PER UNIT SC SCH ×4 (07:57→21:00)
[2020-04-06 12:25] VITALS: BP 156/74
[2020-04-06 14:00] VITALS: BP 157/79
[2020-04-06 14:25] LABS: CALCIUM LEVEL 8.7 MG/DL (8.8-10.2); CREATININE FOR GFR 3.73 MG/DL (0.55-1.30); GLOMERULAR FILTRATION RATE 15.3 (>39); POTASSIUM SERUM 3.9 MEQ/L (3.5-5.1)
[2020-04-06] MEDS: ASPIRIN 81 MG ENTERIC TAB PO SCH (21:17)
[2020-04-06] MEDS: RAMELTEON 8 MG TAB (ROZEREM) PO PRN (21:17)
[2020-04-06] MEDS: PRAVASTATIN 20 MG TAB PO SCH (21:17)
[2020-04-06] MEDS: CO-ENZYME Q10 50 MG CAP PO SCH (21:17)
--- NOTE | 2020-04-06 23:37 | IPN ---
PROGRESS NOTE DATE: 04/06/2020 SUBJECTIVE: Bree is seen and examined this morning in the hemodialysis unit, was receiving her treatment. She is tolerating dialysis without any issues and she denies any new complaints. Specifically no shortness of breath. No chest pain, no nausea, vomiting, diarrhea. PHYSICAL EXAMINATION: Temperature 96.5, pulse 81, respiratory rate 17, blood pressure 157/79, saturating 95% on room air. Intake yesterday was 715. Dialysis today removed 2 liters. Weight in the bed scale today is 64.7 kg. General: The patient is seen receiving her dialysis treatment. Awake, alert, oriented x3, interactive, in no apparent distress. Extraocular muscles are intact. Pupils are round and reactive to light. Tongue is moist. Neck is supple. Jugular veins are not elevated. Heart sounds are regular, S1, S2. Lungs are clear to auscultation bilaterally. No crackles or rales. She seems comfortable on room air. Abdomen is soft and nontender. There are bowel sounds. Extremities are negative for clubbing, cyanosis or edema. There is a fistula in the left arm, which is in use. Neurologic: She is oriented times 3, interactive and at baseline mentation. LABORATORY DATA: Today's laboratory study shows sodium 132, potassium 3.9, bicarbonate 23, hemoglobin 9.1, platelets 139. Hip x-ray done yesterday showed mild degenerative changes of the right hip joint without acute fracture or dislocation. INPATIENT MEDICATIONS: Reviewed by myself and no changes over the past 48 hours. PROBLEMS: 1. End-stage renal disease on hemodialysis on a Monday, Monday, Monday schedule. The patient is dialyzed today with 2 liters of fluid removed. She is tolerating her treatments without any issues. Her electrolytes and volume status are acceptable. Her fistula is in good use. Continue current prescription. 2. Anemia related to end-stage renal failure. She continues on Aranesp with dialysis Hemoglobin is suboptimal, but stable at 9.1. 3. Hypertension. Blood pressures are acceptably controlled and she continues on carvedilol. 4. Chronic systolic congestive heart failure, volume status is regulated by dialysis, 2 liters of fluid are removed today. She continues on moderate oral fluid restriction and volume status is well compensated.
[2020-04-07] MEDS: HEPARIN SOD (PORCINE) 5000UNITS/ML 1ML VIAL/SYRINGE SC SCH ×2 (05:21→12:28)
[2020-04-07 06:00] VITALS: BP 156/76
[2020-04-07] MEDS: HumaLOG INSULIN (NovoLOG) PER UNIT SC SCH ×2 (07:16→12:00)
[2020-04-07] MEDS: (RENVELA) SEVELAMER **CARBONate** 800 MG TAB PO SCH ×2 (10:19→12:28)
[2020-04-07] MEDS: CALCIUM CARBONATE 500 MG CHEW U/D PO SCH (10:19)
[2020-04-07 10:25] VITALS: BP 152/73
[2020-04-07] MEDS: CARVedilol 12.5 MG TAB PO SCH (10:25)
[2020-04-07 11:21] LABS: HEMATOCRIT 33.1 % (36.0-47.0); HEMOGLOBIN 9.6 g/dl (12.0-15.5); MEAN CORPUSCULAR HEMOGLOBIN 26.2 pg (27.0-33.0); MEAN CORPUSCULAR VOLUME 90.2 fl (80.0-96.0); PLATELET COUNT, AUTOMATED 151 10^3/uL (150-450); RED BLOOD COUNT 3.67 10^6/uL (4.00-5.40); WHITE BLOOD COUNT 4.5 10^3/uL (4.0-10.0)
[2020-04-07 11:43] LABS: CALCIUM LEVEL 9.4 MG/DL (8.8-10.2); CREATININE FOR GFR 6.25 MG/DL (0.55-1.30); GLOMERULAR FILTRATION RATE 8.4 (>39); POTASSIUM SERUM 4.6 MEQ/L (3.5-5.1)
--- NOTE | 2020-04-07 14:39 | DS.PDOC ---
Discharge Summary General Date of Admission Mar 30, 2020 at 22:52 Date of Discharge 04/07/20 Discharge Summary PROCEDURES PERFORMED DURING STAY: [None]. DISCHARGE DIAGNOSES: Falls due to gait instability from old stroke and spinal stenosis. Generalized debility and muscle weakness. Thrombocytopenia SECONDARY DIAGNOSIS: ESRD on HD since Feb 2015 CAD s/p CABG Combined systolic and diastolic heart failure with EF of 35%. Ischemic cardiomyopathy Hypertension Anemia of Chronic disease Bilateral Bronchiectasis with b/l calcified granulomas with mediastinal lymphadenopathy and chronic fibrosis and infiltrates of the lower lobes left > right stable since 2013 Diabetes Chronic back pain Dyslipidemia H/o CVA with residual right hemiparesis and slurred speech Spinal stenosis with lumber laminectomy Sleep disordered breathing in nocturnal pulse oximetry Status post lumbar spinal laminectomy at L2, L3, L4 at [facility] in Jan 2018 COMPLICATIONS/CHIEF COMPLAINT: Weakness. HOSPITAL COURSE: 75F with PMHx including HFpEF, CVA, HTN, IDDM, dyslipidemia, ESRD, anemia of chronic disease, CAD/CABG, sleep-disordered breathing, and debility who came in for evaluation of frequent falls. Falls 2/2 weakness and generalized debility and gait instability due to old right CVA with residual paresis workup unrevealing hx of CVA with right sided weakness /small vessel ischemic disease Aspirin, Pravastatin - no acute pathology CAD s/p CABG/CHF compensated echo shows systolic and diastolic dysfunction HTN BP soft during hospitalization. stopped hydralazine and reduced dose of losartan continued coreg IDDM2 stable Anemia of Chronic disease aranesp with HD Thrombocytopenia no bleeding ESRD/HD MWF via left upper arm arteriovenous fistula Osteoporosis / Renal Mineral bone disease Denosumab on an out pt basis Dyslipidemia Pravastatin Debility uses a rolling walker/ BLE weakness / Spinal stenosis s/p lumbar laminectomy home/services DISCHARGE MEDICATIONS: Please see below. ALLERGIES: Please see below. PHYSICAL EXAMINATION ON DISCHARGE: VITAL SIGNS: Please see below. General: NAD, lying comfortably in bed HEENT: NC/AT Lungs: CTA B/L Heart: +S1S2, RRR, no rub or murmur or gallop Abd: soft, NT, +BS Ext: no edema LABORATORY DATA: Please see below. ACTIVITY: [As tolerated]. DIET: Carb consistent DISPOSITION: 01 Home, Self-Care. DISCHARGE INSTRUCTIONS: Follow up at HD as per outpatient schedule PMD in 1 week DISCHARGE CONDITION: [Stable]. TIME SPENT ON DISCHARGE: 35 minutes. Vital Signs/I&Os Vital Signs Date Time Temp Pulse Resp B/P (MAP) Pulse Ox O2 Delivery O2 Flow Rate FiO2 04/07/20 10:25 85 152/73 04/07/20 09:00 2.0 04/07/20 06:00 97.2 18 99 Room Air I&O- Last 24 Hours up to 6 AM 04/07/20 06:00 Intake Total 640 ml Output Total 2050 ml Balance -1410 ml Laboratory Data Labs 24H Laboratory Tests 2 04/06/20 16:35: Bedside Glucose (Misc Panel) 113H 04/06/20 20:49: Bedside Glucose (Misc Panel) 155H 04/07/20 06:33: Bedside Glucose (Misc Panel) 112H 04/07/20 11:04: Nucleated Red Blood Cells % (auto) 0.0, Anion Gap 10, Glomerular Filtration Rate 8.4L, Calcium Level 9.4 04/07/20 11:28: Bedside Glucose (Misc Panel) 220H CBC/BMP Laboratory Tests 04/07/20 11:04 FSBS Laboratory Tests Test 04/06/20 16:35 04/06/20 20:49 04/07/20 06:33 04/07/20 11:28 Range/Units Bedside Glucose (Misc Panel) 113 155 112 220 83-110 MG/DL Discharge Medications Scheduled Aspirin (Aspirin EC) 81 Mg Tablet.dr, 81 MG PO QHS, (Reported) Calcium Carbonate (Calcium) 600 Mg Tablet, 600 MG PO DAILY, (Reported) Carvedilol (Carvedilol) 12.5 Mg Tablet, 12.5 MG PO BID, (Reported) Denosumab Injection (Prolia) 60 Mg/1 Ml Syringe, 60 MG SC ASDIRECTED, (Reported) EVERY SIX MONTHS; SUPPOSED TO TAKE IN JANUARY BUT UNABLE. LAST DOSE WAS JULY 2019. Lidocaine/Prilocaine (Lidocaine-Prilocaine Cream) 2.5%/2.5% Cream..g., 1 APLCT TOP 3XW, (Reported) MONDAY, MONDAY AND MONDAY PRIOR TO DIALYSIS Multivitamins (Thera M Plus Tablet) 1 Each Tablet, 1 TAB PO DAILY, (Reported) Pravastatin Sodium (Pravastatin Sodium) 80 Mg Tablet, 80 MG PO QHS, (Reported) Sevelamer Carbonate (Sevelamer Carbonate) 800 Mg Tablet, 800 MG PO PC, (Reported) Ubidecarenone (Coenzyme Q10) 100 Mg Tablet, 100 MG PO QHS, (Reported) Scheduled PRN Docusate Sodium (Docusate Sodium) 100 Mg Capsule, 100 MG PO DAILY PRN for CONSTIPATION, (Reported) Allergies Coded Allergies: Omccavn-Gxs-Aun Reductase Inhibitor (Verified Allergy, Unknown, PAIN, 07/20/18) PT SAYS SHE CAN TAKE PRAVASTATIN ERIKA LAWSON MD Apr 07, 2020 14:39
== END 2020-04-07 13:29 | disposition home health service (06) | DRG 91 ==
LOC: M ED 19:06 → M ED INP 22:52 → M MSPAV 03-31 02:54
PROVIDERS: ADMIT Internal Medicine; ATTEND Internal Medicine Nephrology
PROC: 5A1D70Z Performance of Urinary Filtration, Intermittent, Less than 6 Hours Per Day (ICD-10-PCS; principal; 2020-04-01)
DX: R29.6 Repeated falls (principal); N18.6 End stage renal disease; I50.22 Chronic systolic (congestive) heart failure; I69.351 Hemiplegia and hemiparesis following cerebral infarction affecting right dominant side; I13.2 Hypertensive heart and chronic kidney disease with heart failure and with stage 5 chronic kidney disease, or end stage renal disease; I25.10 Atherosclerotic heart disease of native coronary artery without angina pectoris; I25.5 Ischemic cardiomyopathy; E11.22 Type 2 diabetes mellitus with diabetic chronic kidney disease; E78.5 Hyperlipidemia, unspecified; M48.061 Spinal stenosis, lumbar region without neurogenic claudication; M81.0 Age-related osteoporosis without current pathological fracture; D63.1 Anemia in chronic kidney disease; J47.9 Bronchiectasis, uncomplicated; M62.81 Muscle weakness (generalized); J84.10 Pulmonary fibrosis, unspecified; D69.6 Thrombocytopenia, unspecified; R53.81 Other malaise; Z87.891 Personal history of nicotine dependence; Z20.822 Contact with and (suspected) exposure to COVID-19; Z95.1 Presence of aortocoronary bypass graft; Z79.82 Long term (current) use of aspirin; Z79.899 Other long term (current) drug therapy; Z88.8 Allergy status to other drugs, medicaments and biological substances; Z99.2 Dependence on renal dialysis; Z91.14 Patient's other noncompliance with medication regimen

== ENCOUNTER 2020-04-19 11:28 | Inpatient (IN) | payer MEDICARE, BC ==
[~2020-04-19] VITALS: Ht 165.1 cm; Wt 61.5 kg
[~2020-04-19 11:28] MED LIST changes: +ASPI-161 PO; +AUGM875T28 PO; +COZA1TAB PO
--- OUTSIDE RECORDS SUMMARY | 2020-04-19 11:36 | CCD ---
Author Author [facility] Organization [facility] Address Unknown Phone Unavailable Care Team Providers Care Planner Chief Name Role Phone Fons, M Ju SILK BRUSHER Unavailable Unavailable Fons, M Ju SILK BRUSHER Unavailable Unavailable Fons, M Ju SILK BRUSHER Unavailable Unavailable Fons, M Ju SILK BRUSHER Unavailable Unavailable Fons, M Ju SILK BRUSHER Unavailable Unavailable Fons, M Ju SILK BRUSHER Unavailable Unavailable Fons, M Ju SILK BRUSHER Unavailable Unavailable Fons, M Ju SILK BRUSHER Unavailable Unavailable Fons, M Ju SILK BRUSHER Unavailable Unavailable Fons, M Ju SILK BRUSHER Unavailable Unavailable Fons, M Ju SILK BRUSHER Unavailable Unavailable Fons, M Ju SILK BRUSHER Unavailable Unavailable Fons, M Ju SILK BRUSHER Unavailable Unavailable Fons, M Ju SILK BRUSHER Unavailable Unavailable Fons, M Ju SILK BRUSHER Unavailable Unavailable Fons, M Ju SILK BRUSHER Unavailable Unavailable Fons, M Ju SILK BRUSHER Unavailable Unavailable Fons, M Ju SILK BRUSHER Unavailable Unavailable Fons, M Ju SILK BRUSHER Unavailable Unavailable Fons, M Ju SILK BRUSHER Unavailable Unavailable Fons, M Ju SILK BRUSHER Unavailable Unavailable Fons, M Ju SILK BRUSHER Unavailable Unavailable Fons, M Ju SILK BRUSHER Unavailable Unavailable Fons, M Ju SILK BRUSHER Unavailable Unavailable Fons, M Ju SILK BRUSHER Unavailable Unavailable Fons, M Ju SILK BRUSHER Unavailable Unavailable Fons, M Ju SILK BRUSHER Unavailable Unavailable Fons, M Ju SILK BRUSHER Unavailable Unavailable Fons, M Ju SILK BRUSHER Unavailable Unavailable Fons, M Ju SILK BRUSHER Unavailable Unavailable Fons, M Ju SILK BRUSHER Unavailable Unavailable Fons, M Ju SILK BRUSHER Unavailable Unavailable Fons, M Ju SILK BRUSHER Unavailable Unavailable Fons, M Ju SILK BRUSHER Unavailable Unavailable Fons, M Ju SILK BRUSHER Unavailable Unavailable Fons, M Ju SILK BRUSHER Unavailable Unavailable Fons, M Ju SILK BRUSHER Unavailable Unavailable Fons, M Ju SILK BRUSHER Unavailable Unavailable Fons, M Ju SILK BRUSHER Unavailable Unavailable Fons, M Ju SILK BRUSHER Unavailable Unavailable Fons, M Ju SILK BRUSHER Unavailable Unavailable Fons, M Ju SILK BRUSHER Unavailable Unavailable Fons, M Ju SILK BRUSHER Unavailable Unavailable Fons, M Ju SILK BRUSHER Unavailable Unavailable Fons, M Ju SILK BRUSHER Unavailable Unavailable Fons, M Ju SILK BRUSHER Unavailable Unavailable Fons, M Ju SILK BRUSHER Unavailable Unavailable Fons, M Ju SILK BRUSHER Unavailable Unavailable Fons, M Ju SILK BRUSHER Unavailable Unavailable Fons, M Ju SILK BRUSHER Unavailable Unavailable Fons, M Ju SILK BRUSHER Unavailable Unavailable Fons, M Ju SILK BRUSHER Unavailable Unavailable Fons, M Ju SILK BRUSHER Unavailable Unavailable Fons, M Ju SILK BRUSHER Unavailable Unavailable Fons, M Ju SILK BRUSHER Unavailable Unavailable Ashia Goldman MD Unavailable Unavailable [...] Unavailable Ashia Goldman MD Unavailable Unavailable Ashia Godlman MD Unavailable Unavailable Ashia Goldman MD Unavailable [...] Unavailable Unavailable Ashia Goldman MD Unavailable Unavailable SleUte richardstech Unavailable Unavailable SleAshia richards MD Unavailable Unavailable Ute Goldmantech Unavailable Unavailable SleAshia richards MD Unavailable Unavailable SleAshia richards MD Unavailable Unavailable SleAshia richards MD Unavailable Unavailable SleAshia richards MD Unavailable Unavailable SleAshia richards MD Unavailable Unavailable Ashia Goldman MD Unavailable Unavailable Ashia Goldman MD Unavailable Unavailable SleAshia richards MD Unavailable Unavailable SleAshia richards MD Unavailable Unavailable SleUte richardstech Unavailable Unavailable HakaJakejtech Unavailable Unavailable HakaUtetech Unavailable Unavailable Ute Goldmantech Unavailable Unavailable Ashia Goldman MD Unavailable Unavailable Ute Goldmantech Unavailable Unavailable Ashia Goldman MD Unavailable Unavailable [...] EDWARD DO Unavailable Unavailable Cougler, S Klever DEPENDENCY PROGRAM DIRECTOR Unavailable Unavailable Cougler, S Klever DEPENDENCY PROGRAM DIRECTOR Unavailable Unavailable Cougler, S Klever DEPENDENCY PROGRAM DIRECTOR Unavailable Unavailable Cougler, S Klever DEPENDENCY PROGRAM DIRECTOR Unavailable Unavailable Cougler, S Klever DEPENDENCY PROGRAM DIRECTOR Unavailable Unavailable Cougler, S Klever DEPENDENCY PROGRAM DIRECTOR Unavailable Unavailable Cougler, S Klever DEPENDENCY PROGRAM DIRECTOR Unavailable Unavailable Cougler, S Klever DEPENDENCY PROGRAM DIRECTOR Unavailable Unavailable Cougler, S Klever DEPENDENCY PROGRAM DIRECTOR Unavailable Unavailable Cougler, S Klever DEPENDENCY PROGRAM DIRECTOR Unavailable Unavailable Cougler, S Klever DEPENDENCY PROGRAM DIRECTOR Unavailable Unavailable Cougler, S Klever DEPENDENCY PROGRAM DIRECTOR Unavailable Unavailable Cougler, S Klever DEPENDENCY PROGRAM DIRECTOR Unavailable Unavailable Cougler, S Klever DEPENDENCY PROGRAM DIRECTOR Unavailable Unavailable Cougler, S Klever DEPENDENCY PROGRAM DIRECTOR Unavailable Unavailable Cougler, S Klever DEPENDENCY PROGRAM DIRECTOR Unavailable Unavailable Cougler, S Klever DEPENDENCY PROGRAM DIRECTOR Unavailable Unavailable Cougler, S Klever DEPENDENCY PROGRAM DIRECTOR Unavailable Unavailable Cougler, S Klever DEPENDENCY PROGRAM DIRECTOR Unavailable Unavailable Cougler, S Klever DEPENDENCY PROGRAM DIRECTOR Unavailable Unavailable Cougler, S Klever DEPENDENCY PROGRAM DIRECTOR Unavailable Unavailable Cougler, S Klever DEPENDENCY PROGRAM DIRECTOR Unavailable Unavailable Cougler, S Klever DEPENDENCY PROGRAM DIRECTOR Unavailable Unavailable Cougler, S Klever DEPENDENCY PROGRAM DIRECTOR Unavailable Unavailable Cougler, S Klever DEPENDENCY PROGRAM DIRECTOR Unavailable Unavailable Cougler, S Klever DEPENDENCY PROGRAM DIRECTOR Unavailable Unavailable Cougler, S Klever DEPENDENCY PROGRAM DIRECTOR Unavailable Unavailable Cougler, S Klever DEPENDENCY PROGRAM DIRECTOR Unavailable Unavailable Cougler, S Klever DEPENDENCY PROGRAM DIRECTOR Unavailable Unavailable Cougler, S Klever DEPENDENCY PROGRAM DIRECTOR Unavailable Unavailable Cougler, S Klever DEPENDENCY PROGRAM DIRECTOR Unavailable Unavailable Cougler, S Klever DEPENDENCY PROGRAM DIRECTOR Unavailable Unavailable Cougler, S Klever DEPENDENCY PROGRAM DIRECTOR Unavailable Unavailable Cougler, S Klever DEPENDENCY PROGRAM DIRECTOR Unavailable Unavailable Cougler, S Klever DEPENDENCY PROGRAM DIRECTOR Unavailable Unavailable Cougler, S Klever DEPENDENCY PROGRAM DIRECTOR Unavailable Unavailable Cougler, S Klever DEPENDENCY PROGRAM DIRECTOR Unavailable Unavailable Cougler, S Klever DEPENDENCY PROGRAM DIRECTOR Unavailable Unavailable Cougler, S Klever DEPENDENCY PROGRAM DIRECTOR Unavailable Unavailable Cougler, S Klever DEPENDENCY PROGRAM DIRECTOR Unavailable Unavailable Humphrey, R Rogers PA Unavailable Unavailable Humphrey, R Rogers PA Unavailable Humphrey, R Rogers PA Unavailable Humphrey, R Rogers PA Unavailable Humphrey, R Rogers PA Unavailable Humphrey, R Rogers PA Unavailable Humphrey R Rogers PA Unavailable Humphrey, R Rogers PA Unavailable Humphrey, R Rogers PA Unavailable Lemus, L Mini RPA Unavailable Unavailable [...] Mini RPA Unavailable Unavailable COOK, B CASEY DEPENDENCY PROGRAM DIRECTOR Unavailable Unavailable COOK, B CASEY DEPENDENCY PROGRAM DIRECTOR Unavailable Unavailable COOK, B CASEY DEPENDENCY PROGRAM DIRECTOR Unavailable Unavailable COOK, B CASEY DEPENDENCY PROGRAM DIRECTOR Unavailable Unavailable COOK, B CASEY DEPENDENCY PROGRAM DIRECTOR Unavailable Unavailable COOK, B CASEY DEPENDENCY PROGRAM DIRECTOR Unavailable Unavailable COOK, B CASEY DEPENDENCY PROGRAM DIRECTOR Unavailable Unavailable COOK, B CASEY DEPENDENCY PROGRAM DIRECTOR Unavailable Unavailable COOK, B CASEY DEPENDENCY PROGRAM DIRECTOR Unavailable Unavailable COOK, B CASEY DEPENDENCY PROGRAM DIRECTOR Unavailable Unavailable COOK, B CASEY DEPENDENCY PROGRAM DIRECTOR Unavailable Unavailable COOK, B CASEY DEPENDENCY PROGRAM DIRECTOR Unavailable Unavailable COOK, B CASEY DEPENDENCY PROGRAM DIRECTOR Unavailable Unavailable COOK, B CASEY DEPENDENCY PROGRAM DIRECTOR Unavailable Unavailable COOK, B CASEY DEPENDENCY PROGRAM DIRECTOR Unavailable Unavailable COOK, B CASEY DEPENDENCY PROGRAM DIRECTOR Unavailable Unavailable COOK, B CASEY DEPENDENCY PROGRAM DIRECTOR Unavailable Unavailable COOK, B CASEY DEPENDENCY PROGRAM DIRECTOR Unavailable Unavailable COOK, B CASEY DEPENDENCY PROGRAM DIRECTOR Unavailable Unavailable COOK, B CASEY DEPENDENCY PROGRAM DIRECTOR Unavailable Unavailable COOK, B CASEY DEPENDENCY PROGRAM DIRECTOR Unavailable Unavailable COOK, B CASEY DEPENDENCY PROGRAM DIRECTOR Unavailable Unavailable COOK, B CASEY DEPENDENCY PROGRAM DIRECTOR Unavailable Unavailable COOK, B CASEY DEPENDENCY PROGRAM DIRECTOR Unavailable Unavailable COOK, B CASEY DEPENDENCY PROGRAM DIRECTOR Unavailable Unavailable COOK, B CASEY DEPENDENCY PROGRAM DIRECTOR Unavailable Unavailable COOK, B CASEY DEPENDENCY PROGRAM DIRECTOR Unavailable Unavailable COOK, B CASEY DEPENDENCY PROGRAM DIRECTOR Unavailable Unavailable COOK, B CASEY DEPENDENCY PROGRAM DIRECTOR Unavailable Unavailable COOK, B CASEY DEPENDENCY PROGRAM DIRECTOR Unavailable Unavailable COOK, B CASEY DEPENDENCY PROGRAM DIRECTOR Unavailable Unavailable COOK, B CASEY DEPENDENCY PROGRAM DIRECTOR Unavailable Unavailable COOK, B CASEY DEPENDENCY PROGRAM DIRECTOR Unavailable Unavailable COOK, B CASEY DEPENDENCY PROGRAM DIRECTOR Unavailable Unavailable COOK, B CASEY DEPENDENCY PROGRAM DIRECTOR Unavailable Unavailable COOK, B CASEY DEPENDENCY PROGRAM DIRECTOR Unavailable Unavailable COOK, B CASEY DEPENDENCY PROGRAM DIRECTOR Unavailable Unavailable COOK, B CASEY DEPENDENCY PROGRAM DIRECTOR Unavailable Unavailable COOK, B CASEY DEPENDENCY PROGRAM DIRECTOR Unavailable Unavailable COOK, B CASEY DEPENDENCY PROGRAM DIRECTOR Unavailable Unavailable COOK, B CASEY DEPENDENCY PROGRAM DIRECTOR Unavailable Unavailable COOK, B CASEY DEPENDENCY PROGRAM DIRECTOR Unavailable Unavailable COOK, B CASEY DEPENDENCY PROGRAM DIRECTOR Unavailable Unavailable COOK, B CASEY DEPENDENCY PROGRAM DIRECTOR Unavailable Unavailable COOK, B CASEY DEPENDENCY PROGRAM DIRECTOR Unavailable Unavailable COOK, B CASEY DEPENDENCY PROGRAM DIRECTOR Unavailable Unavailable COOK, B CASEY DEPENDENCY PROGRAM DIRECTOR Unavailable Unavailable COOK, B CASEY DEPENDENCY PROGRAM DIRECTOR Unavailable Unavailable COOK, B CASEY DEPENDENCY PROGRAM DIRECTOR Unavailable Unavailable COOK, B CASEY DEPENDENCY PROGRAM DIRECTOR Unavailable Unavailable COOK, B CASEY DEPENDENCY PROGRAM DIRECTOR Unavailable Unavailable COOK, B CASEY DEPENDENCY PROGRAM DIRECTOR Unavailable Unavailable COOK, B CASEY DEPENDENCY PROGRAM DIRECTOR Unavailable Unavailable COOK, B CASEY DEPENDENCY PROGRAM DIRECTOR Unavailable Unavailable COOK, B CASEY DEPENDENCY PROGRAM DIRECTOR Unavailable Unavailable COOK, B CASEY DEPENDENCY PROGRAM DIRECTOR Unavailable Unavailable COOK, B CASEY DEPENDENCY PROGRAM DIRECTOR Unavailable Unavailable COOK, B CASEY DEPENDENCY PROGRAM DIRECTOR Unavailable Unavailable COOK, B CASEY DEPENDENCY PROGRAM DIRECTOR Unavailable Unavailable COOK, B CASEY DEPENDENCY PROGRAM DIRECTOR Unavailable Unavailable COOK, B CASEY DEPENDENCY PROGRAM DIRECTOR Unavailable Unavailable COOK, B CASEY DEPENDENCY PROGRAM DIRECTOR Unavailable Unavailable COOK, B CASEY DEPENDENCY PROGRAM DIRECTOR Unavailable Unavailable COOK, B CASEY DEPENDENCY PROGRAM DIRECTOR Unavailable Unavailable Grand, V RENEE PA-C Unavailable Unavailable Lee Ann, V RENEE PA-C Unavailable Unavailable Lee Ann, V RENEE PA-C Unavailable Unavailable Grand, V RENEE PA-C Unavailable Unavailable Grand, V RENEE PA-C Unavailable Unavailable Lee Ann, V RENEE PA-C Unavailable Unavailable Grand, V RENEE PA-C Unavailable Unavailable Re-disclosure Warning [...] is protected by Article 27-F of the [place] Public Health law. If you continue you may have access to information: Regarding HIV / AIDS; Provided by facilities licensed or operated by the [facility] of Mental Health; or Provided by the [facility] for People With Developmental Disabilities. If such information is present, then the following [facility] mandated warning applies: This information has [...] law may result in a fine or care home sentence or both. A general authorization for the release of medical or other information is NOT sufficient authorization for further disc losure. Allergies and Adverse Reactions Type Description Substance Reaction Status Data Source(s ) Drug Class NO KNOWN ALLERGIES NO KNOWN ALLERGIES [facility] Drug allergy Drug allergy No Known Allergies [facility] Family History Family Member Name Family Member Gender Family Member Status Date o f Status Description Data Source(s) Unknown Unknown Problem MEDENT ([facility]) Unknown Female Problem MEDENT ([facility] ) Unknown Female Problem MEDENT ([facility] ) Unknown Female Problem MEDENT ([facility] ) Unknown Female Problem MED[facility] ([facility] ) Unknown Female Problem MEDENT ([facility] ) Encounters Encounter Providers Location Date Indications Data Source(s ) Emergency Attender: Rogers ASHttender: Rogers CONDON ED-ED 03/22/2020 02:56:00 PM EST - 03/22/2020 05:45:00 PM EST DIFFICULTY BREATHING DIARRHEA [facility] DIFFICULTY BREATHING DIARRHEA Patient discharged. Outpatient Attender: RENEE MUSA.ROGER-SJPVanitaROGER 12:00:00 AM EST - 03/17/2020 10:22:30 AM EST [facility] Unknown [address] [facility] [facility] [address] 03/09/2020 12:00:00 AM EST eCW1 ([facility]) Outpatient Attender: Mini Gardiner/Shy/Hardy/Helga menendez 01/14/2020 10:15:00 AM EST MEDENT ([facility]) Outpatient Attender: CASEY GARCIA NP Physical Therapy 12/05/2019 1 1:45:00 AM EDT MEDENT ([facility]) Outpatient Attender: MOE CHAMPION DO ED-IMAGH 11/27 12:29:00 PM EDT - 11/28/2019 12:30:00 PM EDT PVD [facility] PVD Patient discharged. Outpatient Attender: Mini Gardiner/Shy/Hardy/Helga menendez 10/17/2019 10:30:00 AM EDT MEDENT ([facility]) [address], [facility] [address] 09/03/2019 12:00:00 AM EDT eCW1 ([facility]) Outpatient Attender: Ashia LAFLEURROGER-SJP.ROGER 06/27 12:00:00 AM EDT - 07/16/2019 03:42:47 PM EDT [address], [facility] [address] 07/08/2019 12:00:00 AM EDT eCW1 ([facility]) Outpatient Attender: Ju ALANIS-SJP.ROGER 0 12:00:00 AM EDT - 06/25/2019 11:02:29 AM EDT [address], [facility] [address] 06/17/2019 12:00:00 AM EDT eCW1 ([facility]) Outpatient 06/15/2019 07:04:00 AM EDT [facility] [address] [place] [address] 05/29/2019 12:00:00 AM EDT eCW1 ([facility]) [facility] [address] [address] 05/28/2019 12:00:00 AM EDT eCW1 ([facility]) Outpatient Attender: CASEY GARCIA NP Physical Therapy 05/07/2019 0 1:00:00 PM EDT MEDENT ([facility]) Outpatient Attender: Mini Gardiner/Shy/Hardy/Helga eiazael 05/07/2019 11:00:00 AM EDT MEDENT ([facility]) Emergency Attender: Klever Vizcaino DEPENDENCY PROGRAM DIRECTOR ED-ED 01:50:00 PM EST - 04/27/2019 02:52:00 PM EST [facility] FELL Patient discharged. Outpatient 03/07/2019 03:28:00 PM EST [facility] Medications Medication Brand Name Start Date Product Form Dose Route Admi nistrative Instructions Pharmacy Instructions Status Indications Reaction Description Data Source(s) Amlodipine 5 MG Oral Tablet amLODIPine (NORVASC) 5 MG tablet amLODIPine (NORVASC) 5 MG tablet 03/10/2020 12:00:00 AM EST aborted 10mg daily [facility] sodium chloride 0.9 % SOLN 500 mL with h eparin (porcine) 1000 UNIT/ML SOLN 1,000 Units 10/16/2019 12:00:00 AM EDT active 3 (three) times a week [facility] Calcium Carbonate-Vit D-Min (CALCIUM 600+D3 PLUS ENGINE TEST CELL TECHNICIAN ALS) 600-800 MG-UNIT TABS [id number] 09/18/2019 12:00:00 AM EDT 1 {tbl} Oral activ e Take 1 tablet by mouth [facility] Hydralazine Hydrochloride 50 MG Oral Tab let hydrALAZINE (APRESOLINE) 50 MG tablet hydrALAZINE (APRESOLINE) 50 MG tablet 07/04/2019 12:00:00 AM EDT 50 mg Oral active Take 50 mg by mouth 3 (three) times a day [facility] Amlodipine 10 MG Oral Tablet amLODIPine (NORVASC) 10 M G tablet amLODIPine (NORVASC) 10 MG tablet 07/04/2019 12:00:00 AM EDT 10 mg Oral active Take 10 mg by mouth [facility] Labetalol hydrochloride 100 MG Oral Tablet labetalol ( NORMODYNE) 100 MG tablet labetalol (NORMODYNE) 100 MG tablet 06/29/2019 12:00:00 AM EDT aborted TAKE 1 TABLET BY MOUTH TWICE ANGELA LY (STOP CARVEDILOL) [facility] Pravastatin Sodium 80 MG Oral Tablet pravastatin (PRAV ACHOL) 80 MG tablet pravastatin (PRAVACHOL) 80 MG tablet 06/20/2019 12:00:00 AM EDT 1 { tbl} Oral active Take 1 tablet by mouth da alexander [facility] sevelamer carbonate 800 MG Oral Tablet sevelamer (RENV ANN-MARIE) 800 MG tablet sevelamer (RENVELA) 800 MG tablet 06/18/2019 12:00:00 AM EDT 1 {tbl} Oral active Take 1 tablet by mouth 3 (three) times a day [facility] Lidocaine 25 MG/ML / Prilocaine 25 MG/ML Topical Cream lidocaine-prilocaine (EMLA) cream lidocaine-prilocaine (EMLA) cream 06/11/2019 12:00:00 AM EDT active APPLY SMALL YEE UNT TO ACCESS SITE (AVF) 1 HOUR BEFORE DIALYSIS. COVER WITH OCCLUSIVE DRESSING (SARAN WRAP) [facility] Lancets Ultra Thin - Lancets Ultra Thin - 05/29/2019 12:00:00 AM EDT active as directed eCW1 ([facility]) Lancets Ultra Thin - Lancets Ultra Thin - 05/29/2019 12:00:00 AM EDT active Lancets Ultra Thin - eCW1 ([facility]) Hydralazine Hydrochloride 25 MG Oral Tablet HydrALAZIN E HCl 25 MG HydrALAZINE HCl 25 MG 05/28/2019 12:00:00 AM EDT active 1 tablet with food eCW1 ([facility]) carvedilol 12.5 MG Oral Tablet Carvedilol 12.5 MG Carvedilol 12.5 MG 05/28/2019 12:00:00 AM EDT active 1 tablet with food eCW1 ([facility]) 3 ML Insulin Glargine 100 UNT/ML Pen Inj ольга [Lantus] Lantus SoloStar 100 UNIT/ML Lantus SoloStar 100 UNIT/ML 05/28/2019 12:00:00 AM EDT active Lantus SoloStar 100 UNIT/ML eCW1 ([facility]) Hydralazine Hydrochloride 25 MG Oral Tablet HydrALAZIN E HCl 25 MG HydrALAZINE HCl 25 MG 05/28/2019 12:00:00 AM EDT 1.0 {tablet_with_food} active HydrALAZINE HCl 25 MG eCW1 ([facility]) Aspirin 81 MG Chewable Tablet Aspirin 81 MG 05/28/2019 12:00:00 AM EDT 1.0 {tablet} active Aspirin 81 MG eCW1 ([facility]) Pravastatin Sodium 80 MG Oral Tablet Pravastatin Sodium 80 M G 05/28/2019 12:00:00 AM EDT active 1 tablet eCW1 ([facility]) gabapentin 100 MG Oral Capsule Gabapentin 100 MG Gabapentin 100 MG 05/28/2019 12:00:00 AM EDT 1.0 {capsule} active G abapentin 100 MG eCW1 ([facility]) gabapentin 100 MG Oral Capsule Gabapentin 100 MG Gabapentin 100 MG 05/28/2019 12:00:00 AM EDT active 1 capsul e eCW1 ([facility]) Pravastatin Sodium 80 MG Oral Tablet Pravastatin Sodium 80 M G 05/28/2019 12:00:00 AM EDT 1.0 {tablet} active Pr avastatin Sodium 80 MG eCW1 ([facility]) Aspirin 81 MG Chewable Tablet Aspirin 81 MG 05/28/2019 12:00:00 AM EDT active 1 tablet eCW1 ([facility]) Amlodipine 5 MG Oral Tablet AmLODIPine Besylate 5 MG AmLODIP ine Besylate 5 MG 05/28/2019 12:00:00 AM EDT 1.0 {tablet} active AmLODIPine Besylate 5 MG eCW1 ([facility]) Amlodipine 5 MG Oral Tablet AmLODIPine Besylate 5 MG AmLODIP ine Besylate 5 MG 05/28/2019 12:00:00 AM EDT active 1 tablet eCW1 ([facility]) 3 ML Insulin Glargine 100 UNT/ML Pen Inj ольга [Lantus] Lantus SoloStar 100 UNIT/ML Lantus SoloStar 100 UNIT/ML 05/28/2019 12:00:00 AM EDT active 16 units eCW1 ([facility]) gabapentin 100 MG Oral Capsule gabapentin (NEURONTIN) 100 MG capsule gabapentin (NEURONTIN) 100 MG capsule 05/28/2019 12:00:00 AM EDT 100 mg Oral active Take 100 mg by mouth RT ONCE DAILY NE EDED [facility] carvedilol 12.5 MG Oral Tablet Carvedilol 12.5 MG Carvedilol 12.5 MG 05/28/2019 12:00:00 AM EDT 1.0 {tablet_with_food} active Carvedilol 12.5 MG eCW1 ([facility]) 3 ML Insulin Glargine 100 UNT/ML Pen Inj ольга [Lantus] LANTUS SOLOSTAR 100 UNIT/ML SOPN LANTUS SOLOSTAR 100 UNIT/ML SOPN 05/28/2019 12:00:00 AM EDT 19 U active 19 Units 2 (two) price es a day [facility] 3 ML Insulin Lispro 100 UNT/ML Pen Injector [Humalog] Humalo g Kwikpen 05/07/2019 12:00:00 AM EDT active MEDENT ([facility]) Aspirin 81 MG Oral Tablet Aspirin Buf,CoJgkd-ToCgyk-Ac O, 81 MG TABS Aspirin Buf,AcRvdc-WtDnma-GlX, 81 MG TABS 81 mg Oral abor jm Take 81 mg by mouth [facility] 1 ML heparin sodium, porcine 1000 UNT/ML Injection Heparin Sodium, Porcine, (HEPARIN, PORCINE,) 1000 UNIT/ML injection Heparin Sodium, Porcine, (HEPARIN, PORCINE,) 1000 UNIT/ML injection 1000 U/h Intravenous aborted Infuse 1,000 Units/hr into a venous catheter 3 (three) times a week at dialysis [facility] POLYETHYLENE GLYCOL 3350 142 MG/ML Oral Solution polyethylene glycol (GLYCOLAX) 17 g packet polyethylene glycol (GLYCOLAX) 17 g packet 17 g O ral aborted Take 17 g by mouth as needed [facility] Naphazoline-Pheniramine (VISINE-A OP) 1 [drp] Ophthalmic aborted Apply 1 drop to eye daily as needed (allergies) [facility] Tetrahydrozoline hydrochloride 0.5 MG/ML Ophthalmic Solution tetrahydrozoline 0.05 % ophthalmic solution tetrahydrozoline 0.05 % ophthalmic solution Ophthalmic aborted Apply to eye as nee ded [facility] Insurance Providers Payer name Policy type / Coverage type Policy ID Covered green party ID Covered green party's relationship to martinez Policy [place] Plan Information MEDICARE [id number] SP [id number] [place]/[id number] SP [id number] [place] [id number] S [id number] MEDICARE [id number] S [id number] MEDICARE C [id number] S [id number] [employer] BCBS B [id number] S [id number] EXCELLUS BCBS [id number] MEDICARE [id number] MEDICARE [id number] Velia [id number] EXCELLUS BCBS [id number] Velia VYY [id number] EXCELLUS C [id number] Self [id number] MEDICARE A [id number] Self [id number] A OTHER B TRANSPLANT Self TRANSPLAN T [place] P[place]/307 [id number] SP [id number] MEDICARE [id number] SP [id number] EXCELLUS BCBS B [id number] S [id number] [place] [place] MEDICARE ADVANTAGE [id number] S [id number] [place] PPO 302/[id number] SP [id number] [place]PO 302/307 [id number] SP [id number] [employer] [place] [id number] S [id number] [place] [place] MEDICARE ADVANTAGE [id number] S [id number] MEDICARE [id number] SP [id number] A MEDICARE [id number] SP [id number] MEDICARE [id number] SP [id number] BS [employer] [place] Medigap Part B [id number] Self [id number] [place] Primary [id number] Self [id number] [place] PPO [id number] SP [id number] MEDICARE [id number] SP [id number] A BS [employer] Medigap Part B [id number] Self [id number] BS [employer] Medigap Part B [id number] Self [id number] [place] [id number] Self [id number] Blue Shield MCR [employer]vant[employer] Medigap Part B [id number] Self [id number] MEDICARE C [id number] S [id number] A NGS CORESOURCE O [id number] S [id number] Medicare C [id number] SELF [id number] Blue Cross Blue Shield P [id number] SELF [id number] DME Jurisdiction A [facility] C [id number] SELF [id number] MEDICARE [id number] Velia [id number] A EXCELLUS BCBS PI PI MEDICARE PI PI Medicare C [id number] SELF [id number] A EXCELLUS BCBS MEDICARE [id number] Velia [id number] BS [place] Medigap Part B [id number] Self [id number] BS [place] Medigap Part B [id number] Self [id number] [place] Primary [id number] Self [id number] Blue Cross Blue Shield P [id number] SELF [id number] BCBS [place] PPO 302/307 [id number] SP [id number] BS [place] Medigap Part B [id number] Self [id number] BS [place] Medigap Part B [id number] Self [id number] [place] Primary [id number] Self [id number] [place] (SECONDARY) [id number] Medicare Part B [facility] [id number] 0 [id number] BS [place] Medigap Part B [id number] Self [id number] BS [place] Medigap Part B [id number] Self [id number] [place] Primary [id number] Self [id number] Medicare Blue Ppo Commercial [id number] Self [id number] Excellus BCBS Medigap Part B [id number] Self [id number] Medicare [facility] Medicare Primary [id number] Self [id number] BS [place] Medigap Part B Self Medicare [facility] Medicare Primary Self BS [place] Medigap Part B Self Blue Shield MCR Advantage Medigap Part B [id number] Self 302/802 AARP U [id number] Self [id number] EXCELLUS MEDICARE BLUE PPO G [id number] Self [id number] Medicare Blue Ppo Commercial Self BCBS EMPIRE [place] DIV UNAVAILABLE UNAVAILABLE SELF PAY UNAVAILABLE SP UNAVAILA BLE MEDICARE BLUE PPO 306 [id number] SP [id number] PROGRESSIVE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 Number: [id number] cc:PCP None Send Report To: [id number] CT/CT Orbits No Contrast Reason for exam: [...] rce(s) Supporting Document(s) ID Date Data Source [id number] 04/29/2019 07:54:00 AM [facility] Imaging Services Department Imaging Report [address] [place], [place] [address] %(RAD)RES..mtdd.print.filter("line") Name: RONNIE BRAN : 1945 Age/Sex: 74F Ordering Provider: Klever Vizcaino NP Med Rec #: [id number] Reg Status: [facility] Room #: Date of Service: 04/27/19 Report Number: [id number] cc:PCP None Send Report To: [id number] CT/CT Head No Contrast Reason for exam: [...] Dictation Date/Time: 04/27/19 1437 Transcribed Date/Time: 04/29/19 0751 Plug Making Operator: [email or web address] Name Value Range Interpretation Code Description Data Liv rce(s) Supporting Document(s) Procedure Social History Code Duration Value Status Description Data Source(s ) Alcohol intake 03/17/2020 12:00:00 AM EST No completed [facility] Cigarette pack-years 03/17/2020 12:00:00 AM EST UNK completed [facility] Cigarettes smoked current (pack per day) - Reported 03/17/19 21 12:00:00 AM EST UNK completed [facility] Smoking 03/17/2020 12:00:00 AM EST Former smoker completed Former smoker [facility] Smoking 02/04/2020 12:00:00 AM EST Patient is a former smoker completed Patient is a former smoker [facility] ([facility]) Smoking 12/05/2019 12:00:00 AM EDT Patient is a former smoker completed Patient is a former smoker [facility] ([facility]) Vital Signs ID Date Data Source UNK Name Value Range Interpretation Code Description Data Source(s) Oxygen saturation in Arterial blood by Pulse oximetry 93 % 93 % [facility] Body mass index (BMI) [Ratio] 24.30 kg/m2 24.30 kg/m2 [facility] Body weight 66.225 kg 66.225 kg [facility] Body height 165.1 cm 165.1 cm [facility] Heart rate 70 /min 70 /min [facility] Diastolic blood pressure 70 mm[Hg] 70 mm[Hg] [facility] Systolic blood pressure 140 mm[Hg] 140 mm[Hg] [facility] Body surface area Derived from formula 1.76 m2 1.76 m2 [facility] ([facility], ) Body weight 68.494 kg 68.494 kg [facility] ([facility], ) [place] body weight 125 [lb_av] 125 [lb_av] [facility] T ([facility]) Body mass index (BMI) [Ratio] 25.1 kg/m2 25.1 k g/m2 [facility] ([facility], ) Body weight 151.00 [lb_av] 151.00 [lb_av] [facility] T ([facility], ) Body height 65 [in_i] 65 [in_i] [facility] ([facility]) 5'5" Diastolic blood pressure 60 mm[Hg] 60 mm[Hg] [facility] ([facility]) Systolic blood pressure 120 mm[Hg] 120 mm[Hg] [facility] ([facility]) Body surface area Derived from formula 1.75 m2 1.75 m2 [facility] ([facility], ) Body weight 68.040 kg 68.040 kg [facility] ([facility]) [place] body weight 125 [lb_av] 125 [lb_av] [facility] T ([facility], ) Body mass index (BMI) [Ratio] 25.0 kg/m2 25.0 k g/m2 [facility] ([facility]) Body weight 150.00 [lb_av] 150.00 [lb_av] [facility] T ([facility], ) Body height 65 [in_i] 65 [in_i] [facility] ([facility]) 5'5" Diastolic blood pressure 68 mm[Hg] 68 mm[Hg] [facility] ([facility]) Systolic blood pressure 138 mm[Hg] 138 mm[Hg] [facility] ([facility]) Oxygen saturation in Arterial blood by Pulse oximetry 9 % 9 % [facility] ([facility]) Body mass index (BMI) [Ratio] 26.2 kg/m2 26.2 k g/m2 [facility] ([facility]) Body weight 157.38 [lb_av] 157.38 [lb_av] [facility] T ([facility] ) Body height 65 [in_i] 65 [in_i] [facility] ([facility] ) 5'5" Heart rate 74 /min 74 /min [facility] ([facility] ) Diastolic blood pressure 72 mm[Hg] 72 mm[Hg] [facility] ([facility] ) Systolic blood pressure 126 mm[Hg] 126 mm[Hg] M [facility] ([facility] ) Body mass index (BMI) [Ratio] 24.6 kg/m2 24.6 k g/m2 [facility] ([facility], ) Body weight 148.00 [lb_av] 148.00 [lb_av] [facility] T ([facility], ) Body height 65 [in_i] 65 [in_i] [facility] ([facility], ) 5'5" Heart rate 76 /min 76 /min [facility] ([facility], ) Diastolic blood pressure 74 mm[Hg] 74 mm[Hg] [facility] ([facility], ) Systolic blood pressure 139 mm[Hg] 139 mm[Hg] M [facility]ENT ([facility], ) Body weight 67.133 kg 67.133 kg [facility] ([facility], ) [place] body weight 125 [lb_av] 125 [lb_av] [facility] T ([facility], ) Diastolic blood pressure 74 mm[Hg] 74 mm[Hg] eCW1 ([facility]) Systolic blood pressure 190 mm[Hg] 190 mm[Hg] e CW1 ([facility]) Body temperature 97.9 [degF] 97.9 [degF] eCW1 ( [facility]) Respiratory rate 18 /min 18 /min eCW1 ([facility]) Heart rate 84 /min 84 /min eCW1 ([facility]) Body mass index (BMI) [Ratio] 25.12 kg/m2 25.12 kg/m2 W1 ([facility]) Body height 65 [in_us] 65 [in_us] eCW1 ([facility]) Body weight Measured 151 [lb_av] 151 [lb_av] eC W1 ([facility]) Oxygen saturation in Arterial blood by Pulse oximetry 90 % 90 % [facility] ([facility]) Body mass index (BMI) [Ratio] 25.1 kg/m2 25.1 k g/m2 [facility] ([facility]) Body weight 151.12 [lb_av] 151.12 [lb_av] [facility] T ([facility]) Body height 65 [in_i] 65 [in_i] [facility] ([facility]) 5'5" Heart rate 59 /min 59 /min [facility] ([facility]) Diastolic blood pressure 76 mm[Hg] 76 mm[Hg] [facility] ([facility]) Systolic blood pressure 118 mm[Hg] 118 mm[Hg] M [facility] ([facility]) ID Date Data Source [id number] 03/22/2020 05:14:00 PM EST [facility] Name Value Range Interpretation Code Description Data Source(s) Weight Measurement Method 8 8 [facility] Weight [address] [facility] pital Temperature Source 7 7 [facility] Temperature 97.5 97.5 [facility] spital Respiratory Effort 1 1 [facility] Respiratory Rate 17 17 [facility] Pulse Assessment Method 4 4 G [facility] Pulse Rate [address] [facility] Height 65 65 [facility] Blood Pressure 174/96 174/96 [facility] Weight Measurement Method 8 8 [facility] Weight [address] [facility] p[facility] Temperature Source 7 7 [facility] Temperature 97.5 97.5 [facility] spital Respiratory Effort 1 1 [facility] Respiratory Rate 17 17 [facility] Pulse Assessment Method 4 4 G [facility] Pulse Rate [address] [facility] Height 65 65 [facility] Blood Pressure 174/96 174/96 [facility] Weight Measurement Method 8 8 [facility] Weight [address] [facility] p[facility] Temperature Source 7 7 [facility] Temperature 97.5 97.5 [facility] spital Respiratory Effort 1 1 [facility] Respiratory Rate 17 17 [facility] Pulse Assessment Method 4 4 G [facility] Pulse Rate [address] [facility] Height 65 65 [facility] Blood Pressure 174/96 174/96 [facility] ID Date Data Source [id number] 05/31/2019 12:48:00 PM EDT [facility] Name Value Range Interpretation Code Description Data Source(s) Weight Measurement Method 8 8 [facility] Weight [address] [facility] pital Temperature Source 7 7 [facility] Temperature 97.9 97.9 [facility] spital Respiratory Effort 1 1 [facility] Respiratory Rate 16 16 [facility] Pulse Assessment Method 4 4 G [facility] Pulse Rate [address] [facility] p[facility] Height 65 65 [facility] Blood Pressure 155/84 155/84 [facility] Weight Measurement Method 8 8 [facility] Weight [address] [facility] pital Temperature Source 7 7 [facility] Temperature 98 98 [facility] spital Respiratory Effort 1 1 [facility] Respiratory Rate 18 18 [facility] Pulse Assessment Method 4 4 G [facility] Pulse Rate [address] [facility] Height 65 65 [facility] Blood Pressure 163/99 163/99 [facility] Patient Treatment Plan of Care Planned Activity Planned Date Details Description Data Source (s) Amlodipine 5 MG Oral Tablet 03/10/2020 12:00:00 AM EST [facility] sodium chloride 0.9 % SOLN 500 mL with h eparin (porcine) 1000 UNIT/ML SOLN 1,000 Units 10/16/2019 12:00:[address] 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) 600-800 MG-UNIT TABS 09/18/2019 12:00:00 AM EDT [facility] Hydralazine Hydrochloride 50 MG Oral Tablet 07/04/2019 12:00:00 AM EDT [facility] Amlodipine 10 MG Oral Tablet 07/04/2019 12:00:00 AM EDT [facility] Labetalol hydrochloride 100 MG Oral Tablet 06/29/2019 12:00:00 AM E DT [facility] Pravastatin Sodium 80 MG Oral Tablet 06/20/2019 12:00:00 AM EDT [facility] sevelamer carbonate 800 MG Oral Tablet 06/18/2019 12:00:00 AM EDT [facility] Lidocaine 25 MG/ML / Prilocaine 25 MG/ML Topical Cream 06/11/2019 12:00:00 AM EDT [facility] Lancets Ultra Thin - 05/29/2019 12:00:00 AM EDT eCW1 ([facility]) Lancets Ultra Thin - 05/29/2019 12:00:00 AM EDT eCW1 ([facility]) gabapentin 100 MG Oral Capsule 05/28/2019 12:00:00 AM EDT [facility] 3 ML Insulin Glargine 100 UNT/ML Pen Injector [Lantus] 05/28/2019 12:00:00 AM EDT [facility] gabapentin 100 MG Oral Capsule 05/28/2019 12:00:00 AM EDT eCW1 ([facility]) carvedilol 12.5 MG Oral Tablet 05/28/2019 12:00:00 AM EDT eCW1 ([facility]) 3 ML Insulin Glargine 100 UNT/ML Pen Injector [Lantus] 05/28/2019 12:00:00 AM EDT eCW1 ([facility]) Amlodipine 5 MG Oral Tablet 05/28/2019 12:00:00 AM EDT eCW1 ([facility]) Aspirin 81 MG Chewable Tablet 05/28/2019 12:00:00 AM EDT eCW1 ([facility]) Hydralazine Hydrochloride 25 MG Oral Tablet 05/28/2019 12:00:00 AM EDT eCW1 ([facility]) Pravastatin Sodium 80 MG Oral Tablet 05/28/2019 12:00:00 AM EDT eCW1 ([facility]) Pravastatin Sodium 80 MG Oral Tablet 05/28/2019 12:00:00 AM EDT eCW1 ([facility]) carvedilol 12.5 MG Oral Tablet 05/28/2019 12:00:00 AM EDT eCW1 ([facility]) 3 ML Insulin Glargine 100 UNT/ML Pen Injector [Lantus] 05/28/2019 12:00:00 AM EDT eCW1 ([facility]) Amlodipine 5 MG Oral Tablet 05/28/2019 12:00:00 AM EDT eCW1 ([facility]) Aspirin 81 MG Chewable Tablet 05/28/2019 12:00:00 AM EDT eCW1 ([facility]) gabapentin 100 MG Oral Capsule 05/28/2019 12:00:00 AM EDT eCW1 ([facility]) Hydralazine Hydrochloride 25 MG Oral Tablet 05/28/2019 12:00:00 AM EDT eCW1 ([facility]) Aspirin 81 MG Oral Tablet [facility] POLYETHYLENE GLYCOL 3350 142 MG/ML Oral Solution [facility] Tetrahydrozoline hydrochloride 0.5 MG/ML Ophthalmic Solution [facility] 1 ML heparin sodium, porcine 1000 UNT/ML Injection [facility] Naphazoline-Pheniramine (VISINE-A OP) [facility]
[2020-04-19] MEDS ORDERED: CALC600T86 PO (11:55)
[2020-04-19] MEDS ORDERED: METAL LOCK LOOP XX ONE (12:26)
[2020-04-19 12:44] LABS: BASO % 0.7 % (0.0-1.0); EOS # 0.1 10^3/uL (0.0-0.5); EOS % 2.9 % (0.0-3.0); HEMATOCRIT 35.8 % (36.0-47.0); HEMOGLOBIN 10.1 g/dl (12.0-15.5); LYMPH # 0.6 10^3/uL (1.5-5.0); LYMPH % 13.8 % (24.0-44.0); MEAN CORPUSCULAR HEMOGLOBIN 25.6 pg (27.0-33.0); MEAN CORPUSCULAR HGB CONC 28.2 g/dl (32.0-36.5); MEAN CORPUSCULAR VOLUME 90.9 fl (80.0-96.0); MONO # 0.3 10^3/uL (0.0-0.8); MONO % 6.4 % (2.0-8.0); NEUTROPHILS # 3.2 10^3/uL (1.5-8.5); PLATELET COUNT, AUTOMATED 127 10^3/uL (150-450); RED BLOOD COUNT 3.94 10^6/uL (4.00-5.40); WHITE BLOOD COUNT 4.2 10^3/uL (4.0-10.0)
[2020-04-19 13:06] LABS: ALBUMIN 3.4 GM/DL (3.2-5.2); BILIRUBIN,DIRECT 0.1 MG/DL (0.0-0.2); BILIRUBIN,TOTAL 0.4 MG/DL (0.2-1.0); CALCIUM LEVEL 9.7 MG/DL (8.8-10.2); CK-MB VALUE MASS 2.1 NG/ML (<3.6); CREATININE FOR GFR 7.84 MG/DL (0.55-1.30); GLOMERULAR FILTRATION RATE 6.5 (>39); POTASSIUM SERUM 4.5 MEQ/L (3.5-5.1); TOTAL PROTEIN 7.2 GM/DL (6.4-8.2); TROPONIN I 0.03 NG/ML (< 0.10)
--- NOTE | 2020-04-19 13:57 | REP ---
INDICATION: DYSPNEA/COUGH. COMPARISON: 03/30/2020. TECHNIQUE: AP seated chest. FINDINGS: There are bibasilar infiltrates again seen and worse since the study of 3 weeks ago. Left base effusion and small right effusion noted. Sternotomy wires, mediastinal clips and a wall stent in the left brachiocephalic vein noted. Left ventricular configuration of the heart. There is some vascular congestion with vascular redistribution I suspect some interstitial edema. Bones unchanged. IMPRESSION: Bibasilar infiltrates left greater than right with effusions left greater than right. There is cardiomegaly, vascular redistribution and patchy interstitial infiltrates perihilar regions left greater than right. Findings suggest some vascular congestion with infiltrates and/or alveolar edema. Sternotomy wires and mediastinal clips with a left brachiocephalic vein stent again seen. <Electronically signed by Marlon Marie > 04/19/20 6840
--- OUTSIDE RECORDS SUMMARY | 2020-04-19 14:24 | CCD ---
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 [facility] I73.89 Other specified peripheral vascular dise ases OTHER SPECIFIED PERIPHERAL VASCULAR DISEASES Diagnosis 11/28/2019 12:29:00 PM EDT [facility] E78.00 Pure hypercholesterolemia, unspecified P ure hypercholesterolemia, unspecified Diagnosis 07/16/2019 02:37:19 PM EDT [facility] Z99.2 Dependence on renal dialysis Dependence on renal dialy sis Diagnosis 07/16/2019 02:37:19 PM EDT [facility] N18.6 End stage renal disease End stage renal disease Diagno sis 07/16/2019 02:37:19 PM EDT [facility] I10 Essential (primary) hypertension Essential (primary) h ypertension Diagnosis 07/16/2019 02:37:19 PM EDT [facility] 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 Atherosclerosis of coronary artery bypas Diagnosis 07/16/2019 02:37:19 PM EDT [facility] Z95.1 Presence of aortocoronary bypass graft P resence of aortocoronary bypass graft Diagnosis 07/16/2019 02:37:19 PM EDT [facility] Y92.[address] in single- family (private) house as the place of occurrence of the external cause UNSP PLACE IN SINGLE-FAMILY (PRIVATE) HO USE PLACE Diagnosis 04/27/2019 01:50:00 PM [facility] W01.0XXA Fall on same level from slip ping, tripping and stumbling without subsequent striking against object, initial encounter FALL SAME LEV FROM SLIP/TRIP W/O STRIKE AGAINST OBJECT, INIT Diagnosis 04/27/2019 01:50:0 0 PM [facility] Z95.0 Presence of cardiac pacemaker 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 Diagnosis 04/27/2019 01:50:00 PM [facility] Z95.1 Presence of aortocoronary bypass graft P RESENCE OF AORTOCORONARY BYPASS GRAFT Diagnosis 04/27/2019 01:50:00 PM EST [facility] spital Z86.73 Personal history of transien t ischemic attack (TIA), and cerebral infarction without residual deficits PRSNL HX OF TIA (TIA), AND CEREB INFRC W /O RESID DEFICITS Diagnosis 04/27/2019 01:50:00 PM [facility] I25.2 Old myocardial infarction OLD MYOCARDIAL INFARCTION Di agnosis 04/27/2019 01:50:00 PM [facility] Z99.2 Dependence on renal dialysis DEPENDENCE ON RENAL DIALY SIS Diagnosis 04/27/2019 01:50:00 PM [facility] M81.8 Other osteoporosis without current patho logical fracture OTHER OSTEOPOROSIS WITHOUT CURRENT PATHOLOGICAL FRACTURE Diagnosis 01:50:00 PM [facility] N18.5 Chronic kidney disease, stage 5 CHRONIC KIDNEY DISEASE , STAGE 5 Diagnosis 04/27/2019 01:50:00 PM [facility] I12.0 Hypertensive chronic kidney disease with stage 5 chronic kidney disease or end stage renal disease HYP CHR KIDNEY DISEASE W STAGE 5 CHR KID CATA DISEASE OR ESRD Diagnosis 04/27/2019 01:50:00 PM [facility] G44.319 Acute post-traumatic headache, not intra ctable ACUTE POST-TRAUMATIC HEADACHE, NOT INTRACTABLE Diagnosis 04/27/2019 01:50:00 PM [facility] S00.83XA Contusion of other part of head, initial encounter CONTUSION OF OTHER PART OF HEAD, INITIAL ENCOUNTER Diagnosis 04/27/2019 01:50:00 PM [facility] Surgeries/Procedures Procedure Description Date Indications Data Source(s) ECG ROUTINE ECG W/LEAST 12 LDS W/I&R POCT AMB EKG Routine 03/17/2020 12:45 PM EST Ischemic cardiomyopathy EF 35% 03/17/2020 05:45:00 PM EST Is chemic cardiomyopathy EF 35% [facility] Ischemic cardiomyopathy EF 35% [facility]ialysis [facility] W/ Transluminal Balloon Angioplasty, Periph eral 10/18/2019 12:00:00 AM EDT [facility] ([facility]) Translum Balloon Angio Central Dial Segment Through Dialys C ircui 10/18/2019 12:00:00 AM EDT [facility] ([facility]) Moderate Sedation Services; Same Phys Intl 15 Mins; PT >= 5 Years 10/18/2019 12:00:00 AM EDT [facility] ([facility] Dialysis Circuit W/ Transluminal Balloon Angioplasty, Periph eral 05/21/2019 12:00:00 AM EDT [facility] ([facility]) Translum Balloon Angio Central Dial Segment Through Dialys C ircui 05/21/2019 12:00:00 AM EDT [facility] ([facility]) Moderate Sedation Services; Same Phys Intl 15 Mins; PT >= 5 Years 05/21/2019 12:00:00 AM EDT [facility] ([facility]) CT ORBIT SELLA/POST FOSSA/EAR W/O CONTRAST MATRL CT ORBIT/EA R/FOSSA W/O DYE 04/27/2019 12:00:00 AM [facility] CT HEAD/BRAIN W/O CONTRAST MATERIAL CT HEAD/BRAIN W/O DYE 12:00:00 AM [facility] EMERGENCY DEPARTMENT VISIT HIGH/URGENT SEVERITY EMERGENCY DE PT VISIT 04/27/2019 12:00:00 AM [facility] Dialysis Circuit W/ Transluminal Balloon Angioplasty, Periph eral 02/21/2019 12:00:00 AM EST [facility] ([facility]) Moderate Sedation Services; Same Phys Intl 15 Mins; PT >= 5 Years 02/21/2019 12:00:00 AM EST [facility] ([facility]) Results ID Date Data Source [id number] 03/30/2020 07:56:00 PM EST [facility] Name Value Range Interpretation Code Description Data Liv rce(s) Supporting Document(s) SARS coronavirus 2 RNA [Presence] in Res piratory specimen by ZANE with probe detection NEGATIVE [facility] This lab was ordered by [facility] a nd reported by [facility]. ID Date Data Source [id number] 03/22/2020 04:40:00 PM EST [facility] Name Value Range Interpretation Code Description Data Liv rce(s) Supporting Document(s) Respiratory specimen severe acute respir atory syndrome coronavirus 2 (SARS-CoV-2) RNA Not Detected [facility] This lab was ordered by [facility] and reported by . ID Date Data Source [id number] 03/22/2020 05:14:00 PM EST [facility] Name Value Range Interpretation Code Description Data [facility](s) Supporting Document(s) White Blood Count 3.5-10.5 Normal (applies to non-numeri c results) [facility] Red Blood Count 3.90-5.00 Normal (applies to non-numeric results) [facility] Hemoglobin 12.0-15.5 Below low normal [facility] Hematocrit 34.9-44.5 Below low normal [facility] Mean Corpuscular Volume 81.2-95.1 Normal (applies to non- numeric results) [facility] Mean Corpuscular Hgb 25.6-32.2 Normal (applies to non-num aleksandar results) [facility] Mean Corpuscular Hgb Conc 32.0-36.0 Below low normal [facility] Red Cell Distribution Width 11.9-15.5 Above high normal [facility] Platelet Count 254 x10 3/uL 150-450 Normal (applies to non-numeric results) [facility] Mean Platelet Volume 9.4-12.4 Normal (applies to non-num aleksandar results) [facility] Neutrophils% (Auto) 31.0-71.0 Above high normal [facility] Lymphocytes% (Auto) 20.0-55.0 Below low normal [facility] Monocytes% (Auto) 4.0-12.0 Normal (applies to non-numeri c results) [facility] Eosinophils% (Auto) 1.0-8.0 Normal (applies to non-nume veronica results) [facility] Basophils% (Auto) 0.0-2.0 Normal (applies to non-numeri c results) [facility] Immature Granulocytes% (Auto) 0.0-2.0 Normal (nirmal lies to non-numeric results) [facility] Neutrophils# (Auto) 1.50-6.20 Normal (applies to non-nume veronica results) [facility] Lymphocytes# (Auto) 1.20-4.00 Below low normal [facility] Monocytes# (Auto) 0.00-0.90 Normal (applies to non-numeri c results) [facility] Eosinophils# (Auto) 0.00-0.50 Normal (applies to non-nume veronica results) [facility] Basophils# (Auto) 0.00-0.20 Normal (applies to non-numeri c results) [facility] Immature Granulocytes# (Auto) 0.00-7.00 No rmal (applies to non-numeric results) [facility] Slide Reviewed By Normal (applies to non-numeri c results) [facility] Slide has been reviewed and findings con firmed by a technologist/motorcycle technician. ID Date Data Source [id number] 03/22/2020 05:08:00 PM [facility] Name Value Range Interpretation Code Description Data Liv rce(s) Supporting Document(s) B-Type Natriuretic Peptide BNP <125 Above high normal [facility] Results of this test should always be us ed in conjunction with the patients medical history, clinical presentation, and other findings. ID Date Data Source [id number] 03/22/2020 04:56:00 PM [facility] Name Value Range Interpretation Code Description Data Liv rce(s) Supporting Document(s) PT 9.2-11.7 Normal (applies to non-numeric results) [facility] INR Normal (applies to non-numeric results) [facility] The use of INR is restricted to patients on stable oral anticoagulant. Therapeutic Range: 2.0 - 3.0 High Risk Range: 2.5 - 3.5 ID Date Data Source [id number] 03/22/2020 04:56:00 PM [facility] Name Value Range Interpretation Code Description Data Liv rce(s) Supporting Document(s) PTT 23.8-37.9 Below low normal [facility] spital ID Date Data Source [id number] 03/22/2020 04:56:00 PM [facility] Name Value Range Interpretation Code Description Data Liv rce(s) Supporting Document(s) Troponin I 0.000-0.056 Normal (applies to non-numeric resu lts) [facility] ID Date Data Source [id number] 03/22/2020 04:56:00 PM EST [facility] Name Value Range Interpretation Code Description Data Liv rce(s) Supporting Document(s) Sodium 140 mmol/L 136-145 Normal (applies to non-numeric resul ts) [facility] Potassium 3.5-5.1 Normal (applies to non-numeric resul ts) [facility] Chloride 100 mmol/L 98-107 Normal (applies to non-numeric resul ts) [facility] Carbon Dioxide CO2 21-32 Above high normal [facility] Anion Gap 5.0-16.0 Normal (applies to non-numeric resul ts) [facility] BUN 35 mg/dL 7-18 Above high normal [facility]sp[facility] Creatinine,Serum 0.7-1.2 Above high normal [facility] GFR 6 mL/min >60 Below low normal [facility] spital Glucose Level 135 mg/dL 60-99 Above high normal [facility] Reference range is only applicable when patient is fasting Note the following drug interference: Sulfasalazine Sulfapyridine Can see falsely depressed Can see falsely elevated result with up to 17% results with up to 11% decrease in measurement increase in measurement Recommend patients be collected for this test prior to administration of either drug. Calcium 8.5-10.1 Normal (applies to non-numeric resul ts) [facility] Bilirubin,Total 0.1-1.9 Normal (applies to non-numeric results) [facility] SGOT(AST) 15 U/L 15-37 Normal (applies to non-numeric resul ts) [facility] Note the following drug interference: Sulfasalazine Sulfapyridine Can see falsely depressed Can see falsely elevated result with up to 10% results with up to 10% decrease in measurement increase in measurement Recommend patients be collected for this test prior to administration of either drug. SGPT(ALT) 26 U/L 12-78 Normal (applies to non-numeric resul ts) [facility] Note the following drug interference: Sulfasalazine Sulfapyridine Can see falsely depressed Can see falsely elevated result with up to 29% results with up to 10% decrease in measurement increase in measurement Recommend patients be collected for this test prior to administration of either drug. Alkaline Phosphatase 85 U/L 38-126 Normal (applies to non-num aleksandar results) [facility] can increase Alkaline Phosp le vels up to 2 times the normal adult value. Normal values for children and adolescents are 2 to 3 times the normal adult value. Total Protein 6.0-8.2 Normal (applies to non-numeric re sults) [facility] Albumin Level 3.4-5.0 Normal (applies to non-numeric re sults) [facility] ID Date Data Source [id number] 03/22/2020 04:56:00 PM [facility] Name Value Range Interpretation Code Description Data Liv rce(s) Supporting Document(s) Amylase 99 U/L 25-115 Normal (applies to non-numeric resul ts) [facility] ID Date Data Source [id number] 03/22/2020 04:56:00 PM [facility] Name Value Range Interpretation Code Description Data Liv rce(s) Supporting Document(s) Lipase 298 U/L 73-393 Normal (applies to non-numeric resul ts) [facility] ID Date Data Source [id number] 03/22/2020 04:31:00 PM [facility] Imaging Services Department Imaging Report [address] [place], [place] [address] %(RAD)RES..mtdd.print.filter("line") Name: RONNIE BRAN : 1945 Age/Sex: 75F Ordering Provider: TAURUS Meade Med Rec #: [id number] Reg Status: [facility] ER Room #: Date of Service: 03/22/20 Report Number: [id number] cc:Niloli GriffinVanita Reason, DO Send Report To: [id number] CT/CT Abdomen & Pelvis No Contras Reason [...] Date/Time: 03/22/20 1556 Transcribed Date/Time: 03/22/20 1631 Freight Dispatcher: WAYNE Name Value Range Interpretation Code Description Data Liv rce(s) Supporting Document(s) ID Date Data Source [id number] 03/22/2020 04:37:00 PM [facility] Imaging Services Department Imaging Report [address] [place] [id number] %(RAD)RES..mtdd.print.filter("line") Name: RONNIE BRAN : 1945 Age/Sex: 75F Ordering Provider: TAURUS Meade Med Rec #: [id number] Reg Status: DEP ER Room #: Date of Service: 03/22/20 Report Number: [id number] cc:Moe Alvarez Reason, DO; TAURUS Meade Send Report To: [id number] XRP/XR Chest Xray Portable Reason for exam: [...] Date/Time: 03/22/20 1620 Transcribed Date/Time: 03/22/20 1637 Freight Dispatcher: WAYNE Name Value Range Interpretation Code Description Data Liv rce(s) Supporting Document(s) ID Date Data Source [id number] 03/22/2020 04:39:00 PM EST [facility] First test? UNKNOWNEmployed in healthca re? NOSymptomatic per CDC? YESHospitalized? NOICU? NOResident in congregated care? ex longterm, ARC NO? NO Name Value Range Interpretation Code Description Data Liv rce(s) Supporting Document(s) RP Internal Control Passed Normal (applies to non-nume veronica results) [facility] Adenovirus None Detect Normal (applies to non-numeric resu lts) [facility] Coronavirus 229E None Detect Normal (applies to non-numeri c results) [facility] Coronavirus HKU1 None Detect Normal (applies to non-numeri c results) [facility] Coronavirus NL63 None Detect Normal (applies to non-numeri c results) [facility] Coronavirus OC43 None Detect Normal (applies to non-numeri c results) [facility] SARS-CoV-2 Not Detect Normal (applies to non-numeric resul ts) [facility] Negative results do not preclude SARS-Co V-2 infection and should not be used as the sole basis for treatment or other patient management decisions. Negative results must be combined with clinical observations, patient history, and epidemiological information. Testing was performed using the [employer] real-time nested multiplexed PCR Respiratory Panel 2.1 [...] Detect Normal (applies to non-n umeric results) [facility] Rhino/Enterovirus None Detect Normal (applies to non-numer ic results) [facility] Influenza A None Detect Normal (applies to non-numeric res ults) [facility] Influenza B None Detect Normal (applies to non-numeric res ults) [facility] Parainfluenza Virus 1 None Detect Normal (applies to non-n umeric results) [facility] Parainfluenza Virus 2 None Detect Normal (applies to non-n umeric results) [facility] Parainfluenza Virus 3 None Detect Normal (applies to non-n umeric results) [facility] Parainfluenza Virus 4 None Detect Normal (applies to non-n umeric results) [facility] Respiratory Syncytial Virus None Detect Norm al (applies to non-numeric results) [facility] Bordetella Parapertussis None Detect Normal (applies to non-numeric results) [facility] Bordetella Pertussis None Detect Normal (applies to non-nu meric results) [facility] Chlamydia Pneumoniae None Detect Normal (applies to non-nu meric results) [facility] Mycoplasma Pneumoniae None Detect Normal (applies to non-n umeric results) [facility] Methodology: Multiplexed PCR Refer ence Range: None detected ID Date Data Source [id number] 03/02/2020 05:07:00 PM EST [facility] Name Value Range Interpretation Code Description Data Liv rce(s) Supporting Document(s) SARS coronavirus 2 RNA [Presence] in Res piratory specimen by ZANE with probe detection [facility] This lab was ordered by [facility] a nd reported by [facility]. ID Date Data Source [id number] 01/28/2020 12:17:00 PM EST [facility] ([facility]) Name Value Range Interpretation Code Description Data Liv rce(s) Supporting Document(s) Glucose [Mass/volume] in Capillary blood by Glucometer 132 mg/dL 83-110 Above high normal [facility] ID Date Data Source [id number] 01/28/2020 08:14:00 AM EST [facility] ([facility]) Name Value Range Interpretation Code Description Data Liv rce(s) Supporting Document(s) Glucose [Mass/volume] in Capillary blood by Glucometer 155 mg/dL 83-110 Above high normal [facility] ([facility]) ID Date Data Source [id number] 01/21/2020 01:04:00 PM EST [facility] ([facility]) Name Value Range Interpretation Code Description Data Liv rce(s) Supporting Document(s) Glucose [Mass/volume] in Capillary blood by Glucometer 172 mg/dL 83-110 Above high normal [facility] ([facility]) ID Date Data Source [id number] 12/05/2019 12:03:00 PM EDT [facility] ([facility]) Name Value Range Interpretation Code Description Data Liv rce(s) Supporting Document(s) Hemoglobin A1c/Hemoglobin.total in Blood Laboratory test result [facility] ([facility]) Glucose [Mass/volume] in Serum or Plasma 382 [facility] ([facility]) ID Date Data Source [id number] 11/29/2019 06:27:00 AM EDT [facility] Imaging Services Department Imaging Report [address] [place], [place] [address] %(RAD)RES..mtdd.print.filter("line") Name: RONNIE BRAN : 1945 Age/Sex: 74F Ordering Provider: Moe Champion DO Med Rec #: [id number] Reg Status: DEP REF Room #: Date of Service: 11/28/19 Report Number: [id number] cc:Moe Alvarez Reason, DO Send Report To: [id number] US/US Dup Lower Ext Artery Bilat Reason [...] Dictation Date/Time: 11/28/19 1736 Transcribed Date/Time: 11/29/19 0629 Freight Dispatcher: VINCENZO Name Value Range Interpretation Code Description Data Liv rce(s) Supporting Document(s) ID Date Data Source LIVER PROFILE 05/28/2019 12:00:00 AM EDT eCW1 ([facility]) Name Value Range Interpretation Code Description Data Liv rce(s) Supporting Document(s) 15 7-37 AST/SGOT eCW1 (On license of [facility]) 17 12-78 ALT/SGPT eCW1 (On license of [facility]) 0.1 0.0-0.2 BILIRUBIN,DIRECT eCW1 ([facility]) 66 45-117 ALKALINE PHOSPHATASE eCW1 ([facility]) 7.4 6.4-8.2 TOTAL PROTEIN eCW1 ([facility]) 0.5 0.2-1.0 BILIRUBIN,TOTAL eCW1 ([facility]) 3.6 3.2-5.2 ALBUMIN eCW1 (On license of [facility]) 0.95 1.00-1.93 ALBUMIN/GLOBULIN RATIO eCW1 ([facility]) ID Date Data Source LIPID PANEL (CARDIAC RISK) 05/28/2019 12:00:00 AM EDT eCW1 ( [facility]) Name Value Range Interpretation Code Description Data Liv rce(s) Supporting Document(s) Triglyceride [Mass/volume] in Serum or Plasma by calculation 227 <150 TRIGLYCERIDES LEVEL eCW1 ([facility]) Cholesterol [Moles/volume] in Serum or Plasma 227 <200 CHOLESTEROL LEVEL eCW1 ([facility]) 187 NON-HDL-C eCW1 (On [facility] of [facility]) Cholesterol in HDL [Moles/volume] in Serum or Plasma 40 >40 HDL CHOLESTEROL eCW1 ([facility]) Cholesterol in LDL [Mass/volume] in Serum or Plasma by calculation 142 <100 LDL CHOLESTEROL eCW1 ([facility]) 5.675 <5 CHOLESTEROL RISK RATIO eCW1 ([facility]) ID Date Data Source [id number] 05/28/2019 12:00:00 AM EDT eCW1 ([facility]) Name Value Range Interpretation Code Description Data Liv rce(s) Supporting Document(s) Hemoglobin A1c/Hemoglobin.total in Blood 8.9 HEMOGLOBIN A1c eCW1 ([facility]) ID Date Data Source Comprehensive Metabolic Profile (CMP) 05/28/2019 12:00:00 AM EDT eCW1 ([facility]) Name Value Range Interpretation Code Description Data Liv rce(s) Supporting Document(s) 174 70-100 GLUCOSE, FASTING eCW1 ([facility]) 32 7-18 BLOOD UREA NITROGEN eCW1 ([facility]) 137 136-145 SODIUM LEVEL eCW1 ([facility]) 7.76 0.55-1.30 CREATININE FOR GFR eCW1 ([facility]) 6.6 >39 GLOMERULAR FILTRATION RATE eCW 1 ([facility]) 8.9 8.8-10.2 CALCIUM LEVEL eCW1 ([facility]) 96 98-107 CHLORIDE LEVEL eCW1 ([facility]) 3.7 3.5-5.1 POTASSIUM SERUM eCW1 ([facility]) 36 21-32 CARBON DIOXIDE LEVEL eCW1 ([facility]) 64 45-117 ALKALINE PHOSPHATASE eCW1 ([facility]) 17 7-37 AST/SGOT eCW1 (On [facility] of [facility]) 18 12-78 ALT/SGPT eCW1 (On [facility] of [facility]) 3.6 3.2-5.2 ALBUMIN eCW1 (On license of [facility]) 7.2 6.4-8.2 TOTAL PROTEIN eCW1 ([facility]) 0.5 0.2-1.0 BILIRUBIN,TOTAL eCW1 ([facility]) 1.00 1.00-1.93 ALBUMIN/GLOBULIN RATIO eCW1 ([facility]) ID Date Data Source CBC with Differential 05/28/2019 12:00:00 AM EDT eCW1 ([facility]) Name Value Range Interpretation Code Description Data Liv rce(s) Supporting Document(s) 4.22 4.00-5.40 RED BLOOD COUNT eCW1 ([facility]) 3.5 4.0-10.0 WHITE BLOOD COUNT eCW1 ([facility]) 89.8 80.0-96.0 MEAN CORPUSCULAR VOLUME e CW1 ([facility]) 37.9 36.0-47.0 HEMATOCRIT eCW1 ([facility]) 10.9 12.0-15.5 HEMOGLOBIN eCW1 ([facility]) 25.8 27.0-33.0 MEAN CORPUSCULAR HEMOGLOB IN eCW1 (Formerly [facility]) 28.8 32.0-36.5 MEAN CORPUSCULAR HGB CONC eCW1 (Formerly [facility]) 20.6 11.5-14.5 RED CELL DISTRIBUTION WID TH eCW1 (Formerly [facility]) 26.6 24.0-44.0 LYMPH % eCW1 (On license of [facility]) 138 150-450 PLATELET COUNT, AUTOMATED eCW1 (Formerly [facility]) 12.6 0.0-5.0 MONO % eCW1 (On license of [facility]) 56.5 36.0-66.0 NEUTROPHILS % eCW1 ([facility]ly [facility]) 2.0 1.5-8.5 NEUTROPHILS # eCW1 ([facility]ly [facility]) 3.4 0.0-3.0 EOS % eCW1 (On license of [facility]) 0.6 0.0-1.0 BASO % eCW1 (On license of [facility]) 0.4 0.0-0.8 MONO # eCW1 (On license of [facility]) 0.9 1.5-5.0 LYMPH # eCW1 (On license of [facility]) 0.0 0.0-0.2 BASO # eCW1 (On license of [facility]) 0.1 0.0-0.5 EOS # eCW1 (On license of [facility]) ID Date Data Source [id number] 05/21/2019 10:17:00 AM EDT MEDENT ([facility], ) Name Value Range Interpretation Code Description Data Liv rce(s) Supporting Document(s) Glucose [Mass/volume] in Capillary blood by Glucometer 116 mg/dL 83-110 Above high normal [facility] ) ID Date Data Source [id number] 05/07/2019 01:02:00 PM EDT MEDENT ([facility]) Name Value Range Interpretation Code Description Data Liv rce(s) Supporting Document(s) Hemoglobin A1c/Hemoglobin.total in Blood 7.8 MEDENT ([facility]) Glucose [Mass/volume] in Serum or Plasma 370 MEDENT ([facility]) ID Date Data Source [id number] 04/29/2019 08:03:00 AM [facility] Imaging Services Department Imaging Report [address] [place] [address] %(RAD)RES..mtdd.print.filter("line") Name: RONNIE BRAN : 1945 Age/Sex: 74F Ordering Provider: Klever Vizcaino NP Med Rec #: [id number] Reg Status: [facility] Room #: Date of Service: 04/27/19 Report Number: [id number] cc:PCP None Send Report To: [id number] CT/CT Orbits No Contrast Reason for exam: [...] rce(s) Supporting Document(s) ID Date Data Source [id number] 04/29/2019 07:54:00 AM [facility] Imaging Services Department Imaging Report [address] [place], [place] [address] %(RAD)RES..mtdd.print.filter("line") Name: RONNIE BRAN : 1945 Age/Sex: 74F Ordering Provider: Klever Vizcaino NP Med Rec #: [id number] Reg Status: [facility] Room #: Date of Service: 04/27/19 Report Number: [id number] cc:PCP None Send Report To: [id number] CT/CT Head No Contrast Reason for exam: [...] Dictation Date/Time: 04/27/19 1437 Transcribed Date/Time: 04/29/19 0758 Freight Dispatcher: [email or web address] Name Value Range Interpretation Code Description Data Liv rce(s) Supporting Document(s) Procedure Social History Code Duration Value Status Description Data Source(s ) Alcohol intake 03/17/2020 12:00:00 AM EST No completed [facility] Cigarette pack-years 03/17/2020 12:00:00 AM EST UNK completed [facility] Cigarettes smoked current (pack per day) - Reported 03/17/19 21 12:00:00 AM EST UNK completed [facility] Smoking 03/17/2020 12:00:00 AM EST Former smoker completed Former smoker [facility] Smoking 02/04/2020 12:00:00 AM EST Patient is a former smoker completed Patient is a former smoker MEDENT ([facility]) Smoking 12/05/2019 12:00:00 AM EDT Patient is a former smoker completed Patient is a former smoker MEDENT ([facility]) Vital Signs ID Date Data Source UNK Name Value Range Interpretation Code Description Data Source(s) Oxygen saturation in Arterial blood by Pulse oximetry 93 % 93 % [facility] Body mass index (BMI) [Ratio] 24.30 kg/m2 24.30 kg/m2 [facility] Body weight 66.225 kg 66.225 kg [facility] Body height 165.1 cm 165.1 cm [facility] Heart rate 70 /min 70 /min [facility] Diastolic blood pressure 70 mm[Hg] 70 mm[Hg] [facility] Systolic blood pressure 140 mm[Hg] 140 mm[Hg] [facility] Body surface area Derived from formula 1.76 m2 1.76 m2 MEDENT ([facility], ) Body weight 68.494 kg 68.494 kg MEDENT ([facility] ) [place] body weight 125 [lb_av] 125 [lb_av] MEDEN T ([facility]) Body mass index (BMI) [Ratio] 25.1 kg/m2 25.1 k g/m2 MEDENT ([facility], ) Body weight 151.00 [lb_av] 151.00 [lb_av] MEDEN T ([facility], ) Body height 65 [in_i] 65 [in_i] MEDENT ([facility]) 5'5" Diastolic blood pressure 60 mm[Hg] 60 mm[Hg] [facility] ([facility]) Systolic blood pressure 120 mm[Hg] 120 mm[Hg] [facility] ([facility]) Body surface area Derived from formula 1.75 m2 1.75 m2 MEDENT ([facility], ) Body weight 68.040 kg 68.040 kg MEDENT ([facility]) [place] body weight 125 [lb_av] 125 [lb_av] MEDEN T ([facility], ) Body mass index (BMI) [Ratio] 25.0 kg/m2 25.0 k g/m2 [facility] ([facility]) Body weight 150.00 [lb_av] 150.00 [lb_av] MEDEN T ([facility], ) Body height 65 [in_i] 65 [in_i] MEDENT ([facility]) 5'5" Diastolic blood pressure 68 mm[Hg] 68 mm[Hg] [facility] ([facility]) Systolic blood pressure 138 mm[Hg] 138 mm[Hg] [facility] ([facility]) Oxygen saturation in Arterial blood by Pulse oximetry 9 % 9 % [facility] ([facility]) Body mass index (BMI) [Ratio] 26.2 kg/m2 26.2 k g/m2 MEDENT ([facility]) Body weight 157.38 [lb_av] 157.38 [lb_av] MEDEN T ([facility] ) Body height 65 [in_i] 65 [in_i] MEDENT ([facility] ) 5'5" Heart rate 74 /min 74 /min MEDENT ([facility] ) Diastolic blood pressure 72 mm[Hg] 72 mm[Hg] MEDENT ([facility] ) Systolic blood pressure 126 mm[Hg] 126 mm[Hg] M EDENT ([facility] ) Body mass index (BMI) [Ratio] 24.6 kg/m2 24.6 k g/m2 MEDENT ([facility], ) Body weight 148.00 [lb_av] 148.00 [lb_av] MEDEN T ([facility], ) Body height 65 [in_i] 65 [in_i] MEDENT ([facility], ) 5'5" Heart rate 76 /min 76 /min MEDENT ([facility], ) Diastolic blood pressure 74 mm[Hg] 74 mm[Hg] MEDENT ([facility], ) Systolic blood pressure 139 mm[Hg] 139 mm[Hg] M EDENT ([facility], ) Body weight 67.133 kg 67.133 kg MEDENT ([facility], ) [place] body weight 125 [lb_av] 125 [lb_av] MEDEN T ([facility], ) Diastolic blood pressure 74 mm[Hg] 74 mm[Hg] eCW1 ([facility]) Systolic blood pressure 190 mm[Hg] 190 mm[Hg] e CW1 ([facility]) Body temperature 97.9 [degF] 97.9 [degF] eCW1 ( [facility]) Respiratory rate 18 /min 18 /min eCW1 ([facility]) Heart rate 84 /min 84 /min eCW1 ([facility]) Body mass index (BMI) [Ratio] 25.12 kg/m2 25.12 kg/m2 W1 ([facility]) Body height 65 [in_us] 65 [in_us] eCW1 ([facility]) Body weight Measured 151 [lb_av] 151 [lb_av] eC W1 ([facility]) Oxygen saturation in Arterial blood by Pulse oximetry 90 % 90 % MEDENT ([facility]) Body mass index (BMI) [Ratio] 25.1 kg/m2 25.1 k g/m2 MEDENT ([facility]) Body weight 151.12 [lb_av] 151.12 [lb_av] MEDEN T ([facility]) Body height 65 [in_i] 65 [in_i] MEDENT ([facility]) 5'5" Heart rate 59 /min 59 /min MEDENT ([facility]) Diastolic blood pressure 76 mm[Hg] 76 mm[Hg] MEDENT ([facility]) Systolic blood pressure 118 mm[Hg] 118 mm[Hg] M EDENT ([facility]) ID Date Data Source [id number] 03/22/2020 05:14:00 PM EST [facility] Name Value Range Interpretation Code Description Data Source(s) Weight Measurement Method 8 8 [facility] Weight 2320 2320 [facility] pital Temperature Source 7 7 [facility] Temperature 97.5 97.5 [facility] spital Respiratory Effort 1 1 [facility] Respiratory Rate 17 17 [facility] Pulse Assessment Method 4 4 G [facility] Pulse Rate 72 72 [facility] pital Height 65 65 [facility] 174/96 174/96 [facility] Weight Measurement Method 8 8 [facility] Weight 2320 2320 [facility] pital Temperature Source 7 7 [facility] Temperature 97.5 97.5 [facility] spital Respiratory Effort 1 1 [facility] Respiratory Rate 17 17 [facility] Pulse Assessment Method 4 4 G [facility] Pulse Rate 80 80 [facility] pital Height 65 65 [facility] 174/96 174/96 [facility] Weight Measurement Method 8 8 [facility] Weight 2320 2320 [facility] pital Temperature Source 7 7 [facility] Temperature 97.5 97.5 [facility] spital Respiratory Effort 1 1 [facility] Respiratory Rate 17 17 [facility] Pulse Assessment Method 4 4 G [facility] Pulse Rate 80 80 [facility] pital Height 65 65 [facility] Pressure 174/96 174/96 [facility] ID Date Data Source [id number] 05/31/2019 12:48:00 PM EDT [facility] spital Name Value Range Interpretation Code Description Data Source(s) Weight Measurement Method 8 8 [facility] Weight 2416 2416 [facility] pital Temperature Source 7 7 [facility] Temperature 97.9 97.9 [facility] spital Respiratory Effort 1 1 [facility] Respiratory Rate 16 16 [facility] Pulse Assessment Method 4 4 G [facility] Pulse Rate 82 82 [facility] pital Height 65 65 [facility] 155/84 155/84 [facility] Weight Measurement Method 8 8 [facility] Weight 2416 2416 [facility] pital Temperature Source 7 7 [facility] Temperature 98 98 [facility] spital Respiratory Effort 1 1 [facility] Respiratory Rate 18 18 [facility] Pulse Assessment Method 4 4 G [facility] Pulse Rate 83 83 [facility] pital Height 65 65 [facility] 163/99 163/99 [facility] Patient Treatment Plan of Care Planned Activity Planned Date Details Description Data Source (s) Amlodipine 5 MG Oral Tablet 03/10/2020 12:00:00 AM EST [facility] sodium chloride 0.9 % SOLN 500 mL with h eparin (porcine) 1000 UNIT/ML SOLN 1,000 Units 10/16/2019 12:00:00 AM EDT [facility] Calcium Carbonate-Vit D-Min (CALCIUM 600+D3 PLUS RN STAFFING ALS) 600-800 MG-UNIT TABS 09/18/2019 12:00:00 AM EDT [facility] Hydralazine Hydrochloride 50 MG Oral Tablet 07/04/2019 12:00:00 AM EDT [facility] Amlodipine 10 MG Oral Tablet 07/04/2019 12:00:00 AM EDT [facility] Labetalol hydrochloride 100 MG Oral Tablet 06/29/2019 12:00:00 AM E DT [facility] Pravastatin Sodium 80 MG Oral Tablet 06/20/2019 12:00:00 AM EDT [facility] sevelamer carbonate 800 MG Oral Tablet 06/18/2019 12:00:00 AM EDT [facility] Lidocaine 25 MG/ML / Prilocaine 25 MG/ML Topical Cream 06/11/2019 12:00:00 AM EDT [facility] Lancets Ultra Thin - 05/29/2019 12:00:00 AM EDT eCW1 ([facility]) Lancets Ultra Thin - 05/29/2019 12:00:00 AM EDT eCW1 ([facility]) gabapentin 100 MG Oral Capsule 05/28/2019 12:00:00 AM EDT [facility] 3 ML Insulin Glargine 100 UNT/ML Pen Injector [Lantus] 05/28/2019 12:00:00 AM EDT [facility] gabapentin 100 MG Oral Capsule 05/28/2019 12:00:00 AM EDT eCW1 ([facility]) carvedilol 12.5 MG Oral Tablet 05/28/2019 12:00:00 AM EDT eCW1 ([facility]) 3 ML Insulin Glargine 100 UNT/ML Pen Injector [Lantus] 05/28/2019 12:00:00 AM EDT eCW1 (On license of [facility]) Amlodipine 5 MG Oral Tablet 05/28/2019 12:00:00 AM EDT eCW1 ([facility]) Aspirin 81 MG Chewable Tablet 05/28/2019 12:00:00 AM EDT eCW1 ([facility]) Hydralazine Hydrochloride 25 MG Oral Tablet 05/28/2019 12:00:00 AM EDT eCW1 ([facility]) Pravastatin Sodium 80 MG Oral Tablet 05/28/2019 12:00:00 AM EDT eCW1 ([facility]) Pravastatin Sodium 80 MG Oral Tablet 05/28/2019 12:00:00 AM EDT eCW1 ([facility]) carvedilol 12.5 MG Oral Tablet 05/28/2019 12:00:00 AM EDT eCW1 ([facility]) 3 ML Insulin Glargine 100 UNT/ML Pen Injector [Lantus] 05/28/2019 12:00:00 AM EDT eCW1 (On license of [facility]) Amlodipine 5 MG Oral Tablet 05/28/2019 12:00:00 AM EDT eCW1 ([facility]) Aspirin 81 MG Chewable Tablet 05/28/2019 12:00:00 AM EDT eCW1 ([facility]) gabapentin 100 MG Oral Capsule 05/28/2019 12:00:00 AM EDT eCW1 ([facility]) Hydralazine Hydrochloride 25 MG Oral Tablet 05/28/2019 12:00:00 AM EDT eCW1 ([facility]) Aspirin 81 MG Oral Tablet [facility] POLYETHYLENE GLYCOL 3350 142 MG/ML Oral Solution [facility] Tetrahydrozoline hydrochloride 0.5 MG/ML Ophthalmic Solution [facility] 1 ML heparin sodium, porcine 1000 UNT/ML Injection [facility] Naphazoline-Pheniramine (VISINE-A OP) [facility]
--- NOTE | 2020-04-19 14:55 | REP ---
INDICATION: SOB. COMPARISON: Portable chest 04/19/2020, CT 02/23/2019. TECHNIQUE: Noncontrast chest CT with coronal and sagittal reconstructions. FINDINGS: Hyperinflation again seen. There are again noted to be calcified and noncalcified pulmonary nodules with some progressive calcification of some of the nodules. There are a few new patchy ill-defined ground-glass nodules upper lung zones. Small left and tiny right pleural effusion again seen, both decreased in size somewhat from the prior study. Consolidative opacities in the left lower lobe, the right lower lobe peripherally and in the right middle lobe laterally with underlying fibrosis and ground-glass/interstitial infiltrates also present. There is less confluent infiltrate with air bronchograms in the right base than on the previous study. There is no pneumothorax. Heart is enlarged with left atrial and ventricular enlargement. There is no pericardial thickening or effusion. The aorta has a few calcifications in the arch without aneurysm. There are vascular calcifications in coronary arteries. No pathologic sized mediastinal nodes in the prevascular space, AP window or subcarinal region. Some right paratracheal adenopathy is seen up to 13 mm in short axis. This is unchanged from the previous study by my direct measurement. There is no axillary or supraclavicular mass. Bone windows show the sternum, manubrium, thoracic spine and lower cervical spine unchanged with the degenerative disc changes at several levels stable. Sternotomy wires are again seen along with a left brachiocephalic vein stent. Mediastinal clips noted and the visualized ribs intact. That portion of clavicles, scapula and humeral head seen unremarkable Upper abdomen without acute finding. There is renal atrophy bilaterally vascular calcifications of the aorta and proximal renal arteries noted IMPRESSION: 1. Cardiomegaly with left atrial and ventricular enlargement, some vascular redistribution and bilateral pleural effusions left greater than right, slightly smaller than on the 2019 study confluent right lower lobe opacities with underlying fibrosis and less confluent opacities in the periphery of the right lower lobe and right middle lobe compared to prior. All this suggests cardiomegaly with some pulmonary edema. There is slightly less pleural effusion on the previous study. 2. Calcified and noncalcified pulmonary nodules with some progression of calcification of nodules seen. Some mediastinal nodes seen and stable. 3. Prior sternotomy with mediastinal clips and a left brachiocephalic stent noted. No other new or significant finding. <Electronically signed by Marlon Marie > 04/19/20 [id number]
--- NOTE | 2020-04-19 14:58 | ECGEPIP ---
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
[2020-04-19] MEDS ORDERED: hydrALAZINE 20MG/ML 1ML VIAL (J0360 PER 20MG) IV ONE (16:00)
--- NOTE | 2020-04-19 16:29 | HPEPDOC ---
[facility] Medical History & Physical Date of Admission Apr 19, 2020 Date of Service: Apr 19, 2020 History and Physical CHIEF COMPLAINT: shortness of breath HISTORY OF PRESENT ILLNESS: 75 yo F with a hx of CAD (s/p CABG, ischemic cardiomyopathy), Chronic HFrEF (last echo 03/2020 EF 40%), CVA with residual R sided weakness, HTN, ESRD on HD Since Feb 2015 (MWF, L upper arm AV fistula), and medication non compliance. . She presented to the ED with shortness of breath for the past 2 days. He last received hemodialysis on 04/17/20, 1.6 L of fluid were removed and she was back at her dry weight. Patient reports developing shortness of breath that evening, which has continued until arrival to the ER. Patient patient also reports midsternal/pleuritic chest pain related to breathing. Worse on palpation. Pain is nonradiating to the left arm and the left jaw. Patient denies palpitations, subjective fevers, chills, cough, nausea, vomiting or diarrhea. The ED, patient found to be hypertensive, systolic blood pressures into the30s. She is mildly hypoxic to 88% but rebounded with nasal cannula. CT chest showed bilateral pleural effusion, L greater than R with findings of fluid overload. CXR showed bibasilar infiltrates L greater than R with effusions. Labs reviewed. Na 142. K 4.5. BUN 46. Cr 7.84. Trop 0.03. PAST MEDICAL HISTORY: CAD s/p CABG / Ischemic cardiomyopathy / Chronic HFrEF 34% with HFpEF CVA with right sided weakness / small vessel ischemic disease HTN IDDM2 Dyslipidemia Spinal stenosis s/p lumbar laminectomy / Lumbar spinal laminectomy at L2, L3, L4 ESRD on HD since Feb 2015, MWF via eft upper arm arteriovenous fistula Anemia of Chronic disease Bilateral Bronchiectasis with b/l calcified granulomas with mediastinal lymphadenopathy and chronic fibrosis and infiltrates of the lower lobes left > right stable since 2013 Sleep disordered breathing Debility uses a rolling walker/ BLE weakness Hysterectomy Fistulogram and dilatations of the AVF SOCIAL HISTORY: Quit tobacco 26 years ago. Smoked 1 PPD for 14 years Denies alcohol or illicit substances Lives at home with FAMILY HISTORY: CAD & ESRD in mother ALLERGIES: Please see below. REVIEW OF SYSTEMS: 10 point review of systems performed, relevant findings noted in HPI HOME MEDICATIONS: Please see below. PHYSICAL EXAMINATION: VITAL SIGNS: please see below General: NAD, comfortable HEENT: PERRLA, EOMI, sclerae clear Neck: supple, normal ROM, no JVD Respiratory: poor inspiratory effort, reduced breath sounds on L, no wheeze, no rales, no crackles. Mid sternotomy scar on chest CVS: RRR, normal S1, S2, no murmurs Abdo: soft, no masses, no hepatosplenomegaly, BS+, no rebound tenderness Extremities: no edema, pulses 2+ MSK: no joint deformities, normal ROM Neuro: no focal neuro deficits, moving all 4 extremities, CN2-12 intact. Strength 5/5 in all 4 extremities. No nystagmus. Psych: calm, cooperative, AAO x 3 LABORATORY DATA: See below. IMAGING: CT chest wo contrast (04/19/20) 1. Cardiomegaly with left atrial and ventricular enlargement, some vascular redistribution and bilateral pleural effusions left greater than right, slightly smaller than on the 2019 study confluent right lower lobe opacities with under lying fibrosis and less confluent opacities in the periphery of the right lower lobe and right middle lobe compared to prior. All this suggests cardiomegaly with some pulmonary edema. There is slightly less pleural effusion on the previous study. 2. Calcified and noncalcified pulmonary nodules with some progression of calcification of nodules seen. Some mediastinal nodes seen and stable. 3. Prior sternotomy with mediastinal clips and a left brachiocephalic stent noted. No other new or significant finding. CXR (04/19/20): Bibasilar infiltrates left greater than right with effusions left greater than right. There is cardiomegaly, vascular redistribution and patchy interstitial infiltrates perihilar regions left greater than right. Findings suggest some vascular congestion with infiltrates and/or alveolar edema. Sternotomy wires and mediastinal clips with a left brachiocephalic vein stent again seen. MICROBIOLOGY: Please see below. ASSESSMENT: 75 yo F with a hx of CAD (s/p CABG, ischemic cardiomyopathy), Chronic HFrEF (last echo 03/2020 EF 40%), CVA with residual R sided weakness, HTN, ESRD on HD Since Feb 2015 (MWF, L upper arm AV fistula), and medication non compliance. Admitted to hospitalist service for management of fluid overload with hemodialysis. Nephrology consult placed. Will majo to PCU for possible need for IV antihypertensives. . PLAN: SOB likely 2/2 fluid overload 2/2 esrd - chest imaging shows pleural effusions - nephrology consulted for HD, planned for 04/20/20 - continuous pulse ox Lung infiltrates L > R - imaging reviewed above - no lekocytosis, no fever - will check procal - infiltrates likely related to fluid overload/pleural effusions ESRD on HD MWF - d/w Dr. Kiran, plan for HD on 04/20/20 - will dialyze sooner if develops worsening hypoxia, or if BP does not diminish by 25% with IV hydralazine - nephro consult placed HTN - SBP 230 on arrival - gave IV hydralazine in ER - expected to reduce with HD CAD s/p CABG - c/w ASA and pravastatin Chest pain - appears pleuritic - Trop 0.03 on arrival - EKG without ischemic changes - will cycle trop, EKGs Ischemic cardiomyopathy/Chronic HFrEF 40% EF - c/w home meds IDDM2 - ISS, FSBS AC and HS - A1c - hypoglycemic precautions AOCD - recent fecal occult blood - 03/31 ESRD - [place]anesp per [place]ro [place] - PT and OT eval - hx of prior CVA, R sided residual weakness DVT ppx: SCDs. TEDs. Heparin 5000 units q8h. Diet: renal Code status: full codeAAM Vital Signs Vital Signs Date Time Temp Pulse Resp B/P (MAP) Pulse Ox O2 Delivery O2 Flow Rate FiO2 04/19/20 15:52 233/99 04/19/20 15:50 95 Nasal Cannula 2.0 04/19/20 15:49 91 04/19/20 15:19 20 04/19/20 11:29 97.3 Laboratory Data Labs 24H Laboratory Tests 2 04/19/20 12:01: Immature Granulocyte % (Auto) 0.2, Neutrophils (%) (Auto) 76.0H, Lymphocytes (%) (Auto) 13.8L, Monocytes (%) (Auto) 6.4, Eosinophils (%) (Auto) 2.9, Basophils (%) (Auto) 0.7, Neutrophils # (Auto) 3.2, Lymphocytes # (Auto) 0.6L, Monocytes # (Auto) 0.3, Eosinophils # (Auto) 0.1, Basophils # (Auto) 0.0, Nucleated Red Blood Cells % (auto) 0.0, Anion Gap 9, Glomerular Filtration Rate 6.5L, Calcium Level 9.7, Total Bilirubin 0.4, Direct Bilirubin 0.1, Aspartate Amino Transf (AST/SGOT) 13, Alanine Aminotransferase (ALT/SGPT) 21, Alkaline Phosphatase 74, Total Creatine Kinase 70, Creatine Kinase MB 2.1, Creatine Kinase MB Relative Index 3.00, Troponin I 0.03, Total Protein 7.2, Albumin 3.4, Albumin/Globulin Ratio 0.9L CBC/BMP Laboratory Tests 04/19/20 12:01 Microbiology Microbiology 04/19/20 Respiratory Virus Panel (PCR) ([facility]) - Final, Complete Home Medications Scheduled Aspirin (Aspirin EC) 81 Mg Tablet.dr, 81 MG PO QHS Calcium Carbonate (Calcium Carbonate) 600 Mg Tablet, 600 MG PO QHS Carvedilol (Carvedilol) 12.5 Mg Tablet, 12.5 MG PO BID Denosumab Injection (Prolia) 60 Mg/1 Ml Syringe, 60 MG SC ASDIRECTED EVERY SIX MONTHS; SUPPOSED TO TAKE IN JANUARY BUT UNABLE. LAST DOSE WAS JULY 2019. Lidocaine/Prilocaine (Lidocaine-Prilocaine Cream) 2.5%/2.5% Cream..g., 1 APLCT TOP 3XW MONDAY, MONDAY AND MONDAY PRIOR TO DIALYSIS Multivitamins (Thera M Plus Tablet) 1 Each Tablet, 1 TAB PO QHS Pravastatin Sodium (Pravastatin Sodium) 80 Mg Tablet, 80 MG PO QHS Sevelamer Carbonate (Sevelamer Carbonate) 800 Mg Tablet, 800 MG PO BIDWM Ubidecarenone (Coenzyme Q10) 100 Mg Tablet, 100 MG PO QHS Scheduled PRN Docusate Sodium (Docusate Sodium) 100 Mg Capsule, 100 MG PO DAILY PRN for CONSTIPATION Allergies Coded Allergies: [id number]-Eek Reductase Inhibitor (Verified Allergy, Unknown, PAIN, 07/20/18) PT SAYS SHE CAN TAKE PRAVASTATIN LISA YU MD Apr 19, 2020 16:28
[2020-04-19] MEDS ORDERED: MAALOX 30 ML SUSP *UDC PO PRN (16:30)
[2020-04-19] MEDS ORDERED: GLUCAGON INJ 1MG VIAL SC PRN (16:30)
[2020-04-19] MEDS ORDERED: DEXTROSE 50% 50 ML SYRINGE IV PRN (16:30)
[2020-04-19] MEDS ORDERED: hydrALAZINE 20MG/ML 1ML VIAL (J0360 PER 20MG) IV PRN (16:30)
[2020-04-19] MEDS ORDERED: MOM 30ML SUSPENSION UDC PO PRN (16:30)
[2020-04-19] MEDS ORDERED: GLUCOSE 4GM CHEW TABLET PO PRN (16:30)
--- OUTSIDE RECORDS SUMMARY | 2020-04-19 16:35 | CCD ---
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 PPO 306 [id number] SP [id number] SP [id number] [place] -CLINIC [id number] Bshmo ZFC,Yot,Yoy,ZFH,ZFP Health Maintenance Organization (HMO) Self SELF PAY 2 UNAVAILABLE 1 UNAVAILA BLE MEDICARE 4 [id number] 1 [id number] A MEDICARE 11 [id number] EXC PLANS 1 [id number] [facility] C1 [id number] ZF [id number] [place] -O/P [id number] 1 8 [id number] MEDICARE [id number] A Problems, Conditions, and Diagnoses Code Display Name Description Problem Type Effective Dates Data Source(s) E11.9 [id number] Type 2 diabetes rosemarie itus without complication, 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 Problem 05/29/2019 12:00:00 AM EDT eCW 1 ([facility]) E11.9 [id number] Type 2 diabetes rosemarie itus without complication, unspecified whether prison insulin use Problem 05/29/2019 12:00:00 AM EDT eCW 1 ([facility]) E78.5 [id number] Hyperlipidemia, unspecified hyperlipidemi a type Problem 05/28/2019 12:00:00 AM EDT eCW1 ([facility]) I10 [id number] Hypertension, unspecified type Problem 05/27 12:00:00 AM EDT eCW1 ([facility]) E08.8 [id number] Diabetes mellitus du e to underlying condition with unspecified complications Problem 05/28/2019 12:00:00 AM EDT eCW1 ([facility]) E78.5 [id number] Hyperlipidemia, unspecified hyperlipidemi a type Problem 05/28/2019 12:00:00 AM EDT eCW1 ([facility]) I10 [id number] Hypertension, unspecified type Problem 05/27 12:00:00 AM EDT eCW1 ([facility]) E08.8 [id number] Diabetes mellitus du e to underlying condition with unspecified complications Problem 05/28/2019 12:00:00 AM EDT eCW1 ([facility]) I25.5 Ischemic cardiomyopathy Ischemic cardiomyopathy Diagno sis 03/17/2020 09:08:40 AM EST [facility] I73.89 Other specified peripheral vascular dise ases OTHER SPECIFIED PERIPHERAL VASCULAR DISEASES Diagnosis 11/28/2019 12:29:00 PM EDT [facility] E78.00 Pure hypercholesterolemia, unspecified P ure hypercholesterolemia, unspecified Diagnosis 07/16/2019 02:37:19 PM EDT [facility] Z99.2 Dependence on renal dialysis Dependence on renal dialy sis Diagnosis 07/16/2019 02:37:19 PM EDT [facility] N18.6 End stage renal disease End stage renal disease Diagno sis 07/16/2019 02:37:19 PM EDT [facility] I10 Essential (primary) hypertension Essential (primary) h ypertension Diagnosis 07/16/2019 02:37:19 PM EDT [facility] 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 Atherosclerosis of coronary artery bypas Diagnosis 07/16/2019 02:37:19 PM EDT [facility] Z95.1 Presence of aortocoronary bypass graft P resence of aortocoronary bypass graft Diagnosis 07/16/2019 02:37:19 PM EDT [facility] Y92.[address] in single- family (private) house as the place of occurrence of the external cause UNSP PLACE IN SINGLE-FAMILY (PRIVATE) HO USE PLACE Diagnosis 04/27/2019 01:50:00 PM EST [facility] W01.0XXA Fall on same level from slip ping, tripping and stumbling without subsequent striking against object, initial encounter FALL SAME LEV FROM SLIP/TRIP W/O STRIKE AGAINST OBJECT, INIT Diagnosis 04/27/2019 01:50:0 0 PM [facility] Z95.0 Presence of cardiac pacemaker 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 Diagnosis 04/27/2019 01:50:00 PM [facility] Z95.1 Presence of aortocoronary bypass graft P RESENCE OF AORTOCORONARY BYPASS GRAFT Diagnosis 04/27/2019 01:50:00 PM EST [facility] spital Z86.73 Personal history of transien t ischemic attack (TIA), and cerebral infarction without residual deficits PRSNL HX OF TIA (TIA), AND CEREB INFRC W /O RESID DEFICITS Diagnosis 04/27/2019 01:50:00 PM [facility] I25.2 Old myocardial infarction OLD MYOCARDIAL INFARCTION Di agnosis 04/27/2019 01:50:00 PM [facility] Z99.2 Dependence on renal dialysis DEPENDENCE ON RENAL DIALY SIS Diagnosis 04/27/2019 01:50:00 PM [facility] M81.8 Other osteoporosis without current patho logical fracture OTHER OSTEOPOROSIS WITHOUT CURRENT PATHOLOGICAL FRACTURE Diagnosis 01:50:00 PM [facility] N18.5 Chronic kidney disease, stage 5 CHRONIC KIDNEY DISEASE , STAGE 5 Diagnosis 04/27/2019 01:50:00 PM [facility] I12.0 Hypertensive chronic kidney disease with stage 5 chronic kidney disease or end stage renal disease HYP CHR KIDNEY DISEASE W STAGE 5 CHR KID CATA DISEASE OR ESRD Diagnosis 04/27/2019 01:50:00 PM [facility] G44.319 Acute post-traumatic headache, not intra ctable ACUTE POST-TRAUMATIC HEADACHE, NOT INTRACTABLE Diagnosis 04/27/2019 01:50:00 PM [facility] S00.83XA Contusion of other part of head, initial encounter CONTUSION OF OTHER PART OF HEAD, INITIAL ENCOUNTER Diagnosis 04/27/2019 01:50:00 PM [facility] Surgeries/Procedures Procedure Description Date Indications Data Source(s) ECG ROUTINE ECG W/LEAST 12 LDS W/I&R POCT AMB EKG Routine 03/17/2020 12:45 PM EST Ischemic cardiomyopathy EF 35% 03/17/2020 05:45:00 PM EST Is chemic cardiomyopathy EF 35% [facility] Ischemic cardiomyopathy EF 35% [facility] W/ Transluminal Balloon Angioplasty, Periph eral 10/18/2019 12:00:00 AM EDT [facility] ([facility]) Translum Balloon Angio Central Dial Segment Through Dialys C ircui 10/18/2019 12:00:00 AM EDT [facility] ([facility]) Moderate Sedation Services; Same Phys Intl 15 Mins; PT >= 5 Years 10/18/2019 12:00:00 AM EDT [facility] ([facility]) Dialysis Circuit W/ Transluminal Balloon Angioplasty, Periph eral 05/21/2019 12:00:00 AM EDT [facility] ([facility]) Translum Balloon Angio Central Dial Segment Through Dialys C ircui 05/21/2019 12:00:00 AM EDT [facility] ([facility]) Moderate Sedation Services; Same Phys Intl 15 Mins; PT >= 5 Years 05/21/2019 12:00:00 AM EDT [facility] ([facility]) CT ORBIT SELLA/POST FOSSA/EAR W/O CONTRAST MATRL CT ORBIT/EA R/FOSSA W/O DYE 04/27/2019 12:00:00 AM [facility] CT HEAD/BRAIN W/O CONTRAST MATERIAL CT HEAD/BRAIN W/O DYE 12:00:00 AM [facility] EMERGENCY DEPARTMENT VISIT HIGH/URGENT SEVERITY EMERGENCY DE PT VISIT 04/27/2019 12:00:00 AM [facility] Dialysis Circuit W/ Transluminal Balloon Angioplasty, Periph eral 02/21/2019 12:00:00 AM EST [facility] ([facility]) Moderate Sedation Services; Same Phys Intl 15 Mins; PT >= 5 Years 02/21/2019 12:00:00 AM EST [facility] ([facility]) Results ID Date Data Source [id number] 03/30/2020 07:56:00 PM EST [facility] Name Value Range Interpretation Code Description Data Liv rce(s) Supporting Document(s) SARS coronavirus 2 RNA [Presence] in Res piratory specimen by ZANE with probe detection NEGATIVE [facility] This lab was ordered by [facility] a nd reported by [facility]. ID Date Data Source [id number] 03/22/2020 04:40:00 PM EST [facility] Name Value Range Interpretation Code Description Data Liv rce(s) Supporting Document(s) Respiratory specimen severe acute respir atory syndrome coronavirus 2 (SARS-CoV-2) RNA Not Detected [facility] This lab was ordered by [facility] and reported by . ID Date Data Source [id number] 03/22/2020 05:14:00 PM EST [facility] Name Value Range Interpretation Code Description Data [facility](s) Supporting Document(s) White Blood Count 3.5-10.5 Normal (applies to non-numeri c results) [facility] Red Blood Count 3.90-5.00 Normal (applies to non-numeric results) [facility] Hemoglobin 12.0-15.5 Below low normal [facility] ospital Hematocrit 34.9-44.5 Below low normal [facility] Mean Corpuscular Volume 81.2-95.1 Normal (applies to non- numeric results) [facility] Mean Corpuscular Hgb 25.6-32.2 Normal (applies to non-num aleksandar results) [facility] Mean Corpuscular Hgb Conc 32.0-36.0 Below low normal [facility] Red Cell Distribution Width 11.9-15.5 Above high normal [facility] Platelet Count 254 x10 3/uL 150-450 Normal (applies to non-numeric results) [facility] Mean Platelet Volume 9.4-12.4 Normal (applies to non-num aleksandar results) [facility] Neutrophils% (Auto) 31.0-71.0 Above high normal [facility] Lymphocytes% (Auto) 20.0-55.0 Below low normal [facility] Monocytes% (Auto) 4.0-12.0 Normal (applies to non-numeri c results) [facility] Eosinophils% (Auto) 1.0-8.0 Normal (applies to non-nume veronica results) [facility] Basophils% (Auto) 0.0-2.0 Normal (applies to non-numeri c results) [facility] Immature Granulocytes% (Auto) 0.0-2.0 Normal (nirmal lies to non-numeric results) [facility] Neutrophils# (Auto) 1.50-6.20 Normal (applies to non-nume veronica results) [facility] Lymphocytes# (Auto) 1.20-4.00 Below low normal [facility] Monocytes# (Auto) 0.00-0.90 Normal (applies to non-numeri c results) [facility] Eosinophils# (Auto) 0.00-0.50 Normal (applies to non-nume veronica results) [facility] Basophils# (Auto) 0.00-0.20 Normal (applies to non-numeri c results) [facility] Immature Granulocytes# (Auto) 0.00-7.00 No rmal (applies to non-numeric results) [facility] Slide Reviewed By Normal (applies to non-numeri c results) [facility] Slide has been reviewed and findings con firmed by a technologist/alternative energy technician. ID Date Data Source [id number] 03/22/2020 05:08:00 PM [facility] Name Value Range Interpretation Code Description Data Liv rce(s) Supporting Document(s) B-Type Natriuretic Peptide BNP <125 Above high normal [facility] Results of this test should always be us ed in conjunction with the patients medical history, clinical presentation, and other findings. ID Date Data Source [id number] 03/22/2020 04:56:00 PM [facility] Name Value Range Interpretation Code Description Data Liv rce(s) Supporting Document(s) PT 9.2-11.7 Normal (applies to non-numeric results) [facility] INR Normal (applies to non-numeric results) [facility] The use of INR is restricted to patients on stable oral anticoagulant. Therapeutic Range: 2.0 - 3.0 High Risk Range: 2.5 - 3.5 ID Date Data Source [id number] 03/22/2020 04:56:00 PM [facility] Name Value Range Interpretation Code Description Data Liv rce(s) Supporting Document(s) PTT 23.8-37.9 Below low normal [facility] spital ID Date Data Source [id number] 03/22/2020 04:56:00 PM [facility] Name Value Range Interpretation Code Description Data Liv rce(s) Supporting Document(s) Troponin I 0.000-0.056 Normal (applies to non-numeric resu lts) [facility] ID Date Data Source [id number] 03/22/2020 04:56:00 PM EST [facility] Name Value Range Interpretation Code Description Data Liv rce(s) Supporting Document(s) Sodium 140 mmol/L 136-145 Normal (applies to non-numeric resul ts) [facility] Potassium 3.5-5.1 Normal (applies to non-numeric resul ts) [facility] Chloride 100 mmol/L 98-107 Normal (applies to non-numeric resul ts) [facility] Carbon Dioxide CO2 21-32 Above high normal [facility] Anion Gap 5.0-16.0 Normal (applies to non-numeric resul ts) [facility] BUN 35 mg/dL 7-18 Above high normal [facility] ospital Creatinine,Serum 0.7-1.2 Above high normal [facility] GFR 6 mL/min >60 Below low normal [facility] spital Glucose Level 135 mg/dL 60-99 Above high normal [facility] Reference range is only applicable when patient is fasting Note the following drug interference: Sulfasalazine Sulfapyridine Can see falsely depressed Can see falsely elevated result with up to 17% results with up to 11% decrease in measurement increase in measurement Recommend patients be collected for this test prior to administration of either drug. Calcium 8.5-10.1 Normal (applies to non-numeric resul ts) [facility] Bilirubin,Total 0.1-1.9 Normal (applies to non-numeric results) [facility] SGOT(AST) 15 U/L 15-37 Normal (applies to non-numeric resul ts) [facility] Note the following drug interference: Sulfasalazine Sulfapyridine Can see falsely depressed Can see falsely elevated result with up to 10% results with up to 10% decrease in measurement increase in measurement Recommend patients be collected for this test prior to administration of either drug. SGPT(ALT) 26 U/L 12-78 Normal (applies to non-numeric resul ts) [facility] Note the following drug interference: Sulfasalazine Sulfapyridine Can see falsely depressed Can see falsely elevated result with up to 29% results with up to 10% decrease in measurement increase in measurement Recommend patients be collected for this test prior to administration of either drug. Alkaline Phosphatase 85 U/L 38-126 Normal (applies to non-num aleksandar results) [facility] can increase Alkaline Phosp le vels up to 2 times the normal adult value. Normal values for children and adolescents are 2 to 3 times the normal adult value. Total Protein 6.0-8.2 Normal (applies to non-numeric re sults) [facility] Albumin Level 3.4-5.0 Normal (applies to non-numeric re sults) [facility] ID Date Data Source [id number] 03/22/2020 04:56:00 PM [facility] Name Value Range Interpretation Code Description Data Liv rce(s) Supporting Document(s) Amylase 99 U/L 25-115 Normal (applies to non-numeric resul ts) [facility] ID Date Data Source [id number] 03/22/2020 04:56:00 PM [facility] Name Value Range Interpretation Code Description Data Liv rce(s) Supporting Document(s) Lipase 298 U/L 73-393 Normal (applies to non-numeric resul ts) [facility] ID Date Data Source [id number] 03/22/2020 04:31:00 PM [facility] Imaging Services Department Imaging Report [address], [place] [address] %(RAD)RES..mtdd.print.filter("line") Name: RONNIE BRAN : 1945 Age/Sex: 75F Ordering Provider: TAURUS Meade Med Rec #: [id number] Reg Status: [facility] ER Room #: Date of Service: 03/22/20 Report Number: [id number] cc:Niloli GriffinVanita Reason, DO Send Report To: [id number] CT/CT Abdomen & Pelvis No Contras Reason [...] Date/Time: 03/22/20 1556 Transcribed Date/Time: 03/22/20 1631 Regulator Mechanic: WAYNE Name Value Range Interpretation Code Description Data Liv rce(s) Supporting Document(s) ID Date Data Source [id number] 03/22/2020 04:37:00 PM [facility] Imaging Services Department Imaging Report [address] [place] [id number] %(RAD)RES..mtdd.print.filter("line") Name: RONNIE BRAN : 1945 Age/Sex: 75F Ordering Provider: TAURUS Meade Med Rec #: [id number] Reg Status: DEP ER Room #: Date of Service: 03/22/20 Report Number: [id number] cc:Moe Alvarez Reason, DO; TAURUS Meade Send Report To: [id number] XRP/XR Chest Xray Portable Reason for exam: [...] Date/Time: 03/22/20 1620 Transcribed Date/Time: 03/22/20 1637 Regulator Mechanic: WAYNE Name Value Range Interpretation Code Description Data Liv rce(s) Supporting Document(s) ID Date Data Source [id number] 03/22/2020 04:39:00 PM EST [facility] First test? UNKNOWNEmployed in healthca re? NOSymptomatic per CDC? YESHospitalized? NOICU? 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 NO Name Value Range Interpretation Code Description Data Liv rce(s) Supporting Document(s) RP Internal Control Passed Normal (applies to non-nume veronica results) [facility] Adenovirus None Detect Normal (applies to non-numeric resu lts) [facility] Coronavirus 229E None Detect Normal (applies to non-numeri c results) [facility] Coronavirus HKU1 None Detect Normal (applies to non-numeri c results) [facility] Coronavirus NL63 None Detect Normal (applies to non-numeri c results) [facility] Coronavirus OC43 None Detect Normal (applies to non-numeri c results) [facility] SARS-CoV-2 Not Detect Normal (applies to non-numeric resul ts) [facility] Negative results do not preclude SARS-Co V-2 infection and should not be used as the sole basis for treatment or other patient management decisions. Negative results must be combined with clinical observations, patient history, and epidemiological information. Testing was performed using the olook real-time nested multiplexed PCR Respiratory Panel 2.1 [...] Detect Normal (applies to non-n umeric results) [facility] Rhino/Enterovirus None Detect Normal (applies to non-numer ic results) [facility] Influenza A None Detect Normal (applies to non-numeric res ults) [facility] Influenza B None Detect Normal (applies to non-numeric res ults) [facility] Parainfluenza Virus 1 None Detect Normal (applies to non-n umeric results) [facility] Parainfluenza Virus 2 None Detect Normal (applies to non-n umeric results) [facility] Parainfluenza Virus 3 None Detect Normal (applies to non-n umeric results) [facility] Parainfluenza Virus 4 None Detect Normal (applies to non-n umeric results) [facility] Respiratory Syncytial Virus None Detect Norm al (applies to non-numeric results) [facility] Bordetella Parapertussis None Detect Normal (applies to non-numeric results) [facility] Bordetella Pertussis None Detect Normal (applies to non-nu meric results) [facility] Chlamydia Pneumoniae None Detect Normal (applies to non-nu meric results) [facility] Mycoplasma Pneumoniae None Detect Normal (applies to non-n umeric results) [facility] Methodology: Multiplexed PCR Refer ence Range: None detected ID Date Data Source [id number] 03/02/2020 05:07:00 PM EST [facility] Name Value Range Interpretation Code Description Data Liv rce(s) Supporting Document(s) SARS coronavirus 2 RNA [Presence] in Res piratory specimen by ZANE with probe detection [facility] This lab was ordered by [facility] a nd reported by [facility]. ID Date Data Source [id number] 01/28/2020 12:17:00 PM EST [facility] ([facility]) Name Value Range Interpretation Code Description Data Liv rce(s) Supporting Document(s) Glucose [Mass/volume] in Capillary blood by Glucometer 132 mg/dL 83-110 Above high normal [facility] ID Date Data Source [id number] 01/28/2020 08:14:00 AM EST [facility] ([facility]) Name Value Range Interpretation Code Description Data Liv rce(s) Supporting Document(s) Glucose [Mass/volume] in Capillary blood by Glucometer 155 mg/dL 83-110 Above high normal [facility] ([facility]) ID Date Data Source [id number] 01/21/2020 01:04:00 PM EST [facility] ([facility]) Name Value Range Interpretation Code Description Data Liv rce(s) Supporting Document(s) Glucose [Mass/volume] in Capillary blood by Glucometer 172 mg/dL 83-110 Above high normal [facility] ([facility]) ID Date Data Source [id number] 12/05/2019 12:03:00 PM EDT [facility] ([facility]) Name Value Range Interpretation Code Description Data Liv rce(s) Supporting Document(s) Hemoglobin A1c/Hemoglobin.total in Blood Laboratory test result [facility] Glucose [Mass/volume] in Serum or Plasma 382 [facility] ([facility]) ID Date Data Source [id number] 11/29/2019 06:27:00 AM EDT [facility] Imaging Services Department Imaging Report [address], [place] [address] %(RAD)RES..mtdd.print.filter("line") Name: RONNIE BRAN : 1945 Age/Sex: 74F Ordering Provider: Moe Champion DO Med Rec #: [id number] Reg Status: DEP REF Room #: Date of Service: 11/28/19 Report Number: [id number] cc:Moe Alvarez Reason, DO Send Report To: [id number] US/US Dup Lower Ext Artery Bilat Reason [...] Dictation Date/Time: 11/28/19 1736 Transcribed Date/Time: 11/29/19 0650 Regulator Mechanic: VINCENZO Name Value Range Interpretation Code Description Data Liv rce(s) Supporting Document(s) ID Date Data Source LIVER PROFILE 05/28/2019 12:00:00 AM EDT eCW1 ([facility]) Name Value Range Interpretation Code Description Data Liv rce(s) Supporting Document(s) 15 7-37 AST/SGOT eCW1 ([facility]) 17 12-78 ALT/SGPT eCW1 ([facility]) 0.1 0.0-0.2 BILIRUBIN,DIRECT eCW1 ([facility]) 66 45-117 ALKALINE PHOSPHATASE eCW1 ([facility]) 7.4 6.4-8.2 TOTAL PROTEIN eCW1 ([facility]) 0.5 0.2-1.0 BILIRUBIN,TOTAL eCW1 ([facility]) 3.6 3.2-5.2 ALBUMIN eCW1 ([facility]) 0.95 1.00-1.93 ALBUMIN/GLOBULIN RATIO eCW1 ([facility]) ID Date Data Source LIPID PANEL (CARDIAC RISK) 05/28/2019 12:00:00 AM EDT eCW1 ( [facility]) Name Value Range Interpretation Code Description Data Liv rce(s) Supporting Document(s) Triglyceride [Mass/volume] in Serum or Plasma by calculation 227 <150 TRIGLYCERIDES LEVEL eCW1 ([facility]) Cholesterol [Moles/volume] in Serum or Plasma 227 <200 CHOLESTEROL LEVEL eCW1 ([facility]) 187 NON-HDL-C eCW1 ([facility]) Cholesterol in HDL [Moles/volume] in Serum or Plasma 40 >40 HDL CHOLESTEROL eCW1 ([facility]) Cholesterol in LDL [Mass/volume] in Serum or Plasma by calculation 142 <100 LDL CHOLESTEROL eCW1 ([facility]) 5.675 <5 CHOLESTEROL RISK RATIO eCW1 ([facility]) ID Date Data Source [id number] 05/28/2019 12:00:00 AM EDT eCW1 ([facility]) Name Value Range Interpretation Code Description Data Liv rce(s) Supporting Document(s) Hemoglobin A1c/Hemoglobin.total in Blood 8.9 HEMOGLOBIN A1c eCW1 ([facility]) ID Date Data Source Comprehensive Metabolic Profile (CMP) 05/28/2019 12:00:00 AM EDT eCW1 ([facility]) Name Value Range Interpretation Code Description Data Liv rce(s) Supporting Document(s) 174 70-100 GLUCOSE, FASTING eCW1 ([facility]) 32 7-18 BLOOD UREA NITROGEN eCW1 ([facility]) 137 136-145 SODIUM LEVEL eCW1 ([facility]) 7.76 0.55-1.30 CREATININE FOR GFR eCW1 ([facility]) 6.6 >39 GLOMERULAR FILTRATION RATE eCW 1 ([facility]) 8.9 8.8-10.2 CALCIUM LEVEL eCW1 ([facility]) 96 98-107 CHLORIDE LEVEL eCW1 ([facility]) 3.7 3.5-5.1 POTASSIUM SERUM eCW1 ([facility]) 36 21-32 CARBON DIOXIDE LEVEL eCW1 ([facility]) 64 45-117 ALKALINE PHOSPHATASE eCW1 ([facility]) 17 7-37 AST/SGOT eCW1 ([facility]) 18 12-78 ALT/SGPT eCW1 ([facility]) 3.6 3.2-5.2 ALBUMIN eCW1 ([facility]) 7.2 6.4-8.2 TOTAL PROTEIN eCW1 ([facility]) 0.5 0.2-1.0 BILIRUBIN,TOTAL eCW1 ([facility]) 1.00 1.00-1.93 ALBUMIN/GLOBULIN RATIO eCW1 ([facility]) ID Date Data Source CBC with Differential 05/28/2019 12:00:00 AM EDT eCW1 ([facility]) Name Value Range Interpretation Code Description Data Liv rce(s) Supporting Document(s) 4.22 4.00-5.40 RED BLOOD COUNT eCW1 ([facility]) 3.5 4.0-10.0 WHITE BLOOD COUNT eCW1 ([facility]) 89.8 80.0-96.0 MEAN CORPUSCULAR VOLUME e CW1 ([facility]) 37.9 36.0-47.0 HEMATOCRIT eCW1 ([facility]) 10.9 12.0-15.5 HEMOGLOBIN eCW1 ([facility]) 25.8 27.0-33.0 MEAN CORPUSCULAR HEMOGLOB IN eCW1 ([facility]) 28.8 32.0-36.5 MEAN CORPUSCULAR HGB CONC eCW1 ([facility]) 20.6 11.5-14.5 RED CELL DISTRIBUTION WID TH eCW1 ([facility]) 26.6 24.0-44.0 LYMPH % eCW1 ([facility]) 138 150-450 PLATELET COUNT, AUTOMATED eCW1 ([facility]) 12.6 0.0-5.0 MONO % eCW1 ([facility]) 56.5 36.0-66.0 NEUTROPHILS % eCW1 ([facility]) 2.0 1.5-8.5 NEUTROPHILS # eCW1 ([facility]) 3.4 0.0-3.0 EOS % eCW1 ([facility]) 0.6 0.0-1.0 BASO % eCW1 ([facility]) 0.4 0.0-0.8 MONO # eCW1 ([facility]) 0.9 1.5-5.0 LYMPH # eCW1 ([facility]) 0.0 0.0-0.2 BASO # eCW1 ([facility]) 0.1 0.0-0.5 EOS # eCW1 ([facility]) ID Date Data Source [id number] 05/21/2019 10:17:00 AM EDT MEDENT ([facility] ) Name Value Range Interpretation Code Description Data Liv rce(s) Supporting Document(s) Glucose [Mass/volume] in Capillary blood by Glucometer 116 mg/dL 83-110 Above high normal [facility] ) ID Date Data Source [id number] 05/07/2019 01:02:00 PM EDT MEDENT ([facility]) Name Value Range Interpretation Code Description Data Liv rce(s) Supporting Document(s) Hemoglobin A1c/Hemoglobin.total in Blood 7.8 MEDENT ([facility]) Glucose [Mass/volume] in Serum or Plasma 370 MEDENT ([facility]) ID Date Data Source [id number] 04/29/2019 08:03:00 AM [facility] Imaging Services Department Imaging Report [address] [place] [address] %(RAD)RES..mtdd.print.filter("line") Name: RONNIE BRAN : 1945 Age/Sex: 74F Ordering Provider: Klever Vizcaino NP Med Rec #: [id number] Reg Status: [facility] Room #: Date of Service: 04/27/19 Report Number: [id number] cc:PCP None Send Report To: [id number] CT/CT Orbits No Contrast Reason for exam: [...] rce(s) Supporting Document(s) ID Date Data Source [id number] 04/29/2019 07:54:00 AM [facility] Imaging Services Department Imaging Report [address], [place] [address] %(RAD)RES..mtdd.print.filter("line") Name: RONNIE BRAN : 1945 Age/Sex: 74F Ordering Provider: Klever Vizcaino NP Med Rec #: [id number] Reg Status: [facility] Room #: Date of Service: 04/27/19 Report Number: [id number] cc:PCP None Send Report To: [id number] CT/CT Head No Contrast Reason for exam: [...] Dictation Date/Time: 04/27/19 1437 Transcribed Date/Time: 04/29/19 0757 Regulator Mechanic: [id number] Name Value Range Interpretation Code Description Data Liv rce(s) Supporting Document(s) Procedure Social History Code Duration Value Status Description Data Source(s ) Alcohol intake 03/17/2020 12:00:00 AM EST No completed [facility] Cigarette pack-years 03/17/2020 12:00:00 AM EST UNK completed [facility] Cigarettes smoked current (pack per day) - Reported 03/17/19 21 12:00:00 AM EST UNK completed [facility] Smoking 03/17/2020 12:00:00 AM EST Former smoker completed Former smoker [facility] Smoking 02/04/2020 12:00:00 AM EST Patient is a former smoker completed Patient is a former smoker [facility] ([facility]) Smoking 12/05/2019 12:00:00 AM EDT Patient is a former smoker completed Patient is a former smoker [facility] ([facility]) Vital Signs ID Date Data Source UNK Name Value Range Interpretation Code Description Data Source(s) Oxygen saturation in Arterial blood by Pulse oximetry 93 % 93 % [facility] Body mass index (BMI) [Ratio] 24.30 kg/m2 24.30 kg/m2 [facility] Body weight 66.225 kg 66.225 kg [facility] Body height 165.1 cm 165.1 cm [facility] Heart rate 70 /min 70 /min [facility] Diastolic blood pressure 70 mm[Hg] 70 mm[Hg] [facility] Systolic blood pressure 140 mm[Hg] 140 mm[Hg] [facility] Body surface area Derived from formula 1.76 m2 1.76 m2 MEDENT ([facility], ) Body weight 68.494 kg 68.494 kg MEDENT ([facility] ) [place] body weight 125 [lb_av] 125 [lb_av] MEDEN T ([facility]) Body mass index (BMI) [Ratio] 25.1 kg/m2 25.1 k g/m2 MED[facility] ([facility], ) Body weight 151.00 [lb_av] 151.00 [lb_av] MEDEN T ([facility], ) Body height 65 [in_i] 65 [in_i] MEDENT ([facility]) 5'5" Diastolic blood pressure 60 mm[Hg] 60 mm[Hg] [facility] ([facility]) Systolic blood pressure 120 mm[Hg] 120 mm[Hg] [facility] ([facility]) Body surface area Derived from formula 1.75 m2 1.75 m2 MEDENT ([facility], ) Body weight 68.040 kg 68.040 kg MEDENT ([facility]) [place] body weight 125 [lb_av] 125 [lb_av] MEDEN T ([facility], ) Body mass index (BMI) [Ratio] 25.0 kg/m2 25.0 k g/m2 [facility] ([facility]) Body weight 150.00 [lb_av] 150.00 [lb_av] MEDEN T ([facility], ) Body height 65 [in_i] 65 [in_i] MEDENT ([facility]) 5'5" Diastolic blood pressure 68 mm[Hg] 68 mm[Hg] [facility] ([facility]) Systolic blood pressure 138 mm[Hg] 138 mm[Hg] [facility] ([facility]) Oxygen saturation in Arterial blood by Pulse oximetry 9 % 9 % [facility] ([facility]) Body mass index (BMI) [Ratio] 26.2 kg/m2 26.2 k g/m2 MED[facility] ([facility]) Body weight 157.38 [lb_av] 157.38 [lb_av] MEDEN T ([facility] ) Body height 65 [in_i] 65 [in_i] MEDENT ([facility] ) 5'5" Heart rate 74 /min 74 /min MED[facility] ([facility] ) Diastolic blood pressure 72 mm[Hg] 72 mm[Hg] [facility] ([facility] ) Systolic blood pressure 126 mm[Hg] 126 mm[Hg] M EDENT ([facility] ) Body mass index (BMI) [Ratio] 24.6 kg/m2 24.6 k g/m2 MEDENT ([facility], ) Body weight 148.00 [lb_av] 148.00 [lb_av] MEDEN T ([facility], ) Body height 65 [in_i] 65 [in_i] MEDENT ([facility] ) 5'5" Heart rate 76 /min 76 /min MEDENT ([facility], ) Diastolic blood pressure 74 mm[Hg] 74 mm[Hg] [facility] ([facility], ) Systolic blood pressure 139 mm[Hg] 139 mm[Hg] M EDENT ([facility], ) Body weight 67.133 kg 67.133 kg MED[facility] ([facility] ) [place] body weight 125 [lb_av] 125 [lb_av] MEDEN T ([facility], ) Diastolic blood pressure 74 mm[Hg] 74 mm[Hg] eCW1 ([facility]) Systolic blood pressure 190 mm[Hg] 190 mm[Hg] e CW1 ([facility]) Body temperature 97.9 [degF] 97.9 [degF] eCW1 ( [facility]) Respiratory rate 18 /min 18 /min eCW1 ([facility]) Heart rate 84 /min 84 /min eCW1 ([facility]) Body mass index (BMI) [Ratio] 25.12 kg/m2 25.12 kg/m2 W1 ([facility]) Body height 65 [in_us] 65 [in_us] eCW1 ([facility]) Body weight Measured 151 [lb_av] 151 [lb_av] eC W1 ([facility]) Oxygen saturation in Arterial blood by Pulse oximetry 90 % 90 % MEDENT ([facility]) Body mass index (BMI) [Ratio] 25.1 kg/m2 25.1 k g/m2 MED[facility] ([facility]) Body weight 151.12 [lb_av] 151.12 [lb_av] MEDEN T ([facility]) Body height 65 [in_i] 65 [in_i] MED[facility] ([facility]) 5'5" Heart rate 59 /min 59 /min MED[facility] ([facility]) Diastolic blood pressure 76 mm[Hg] 76 mm[Hg] [facility] ([facility]) Systolic blood pressure 118 mm[Hg] 118 mm[Hg] M EDENT ([facility]) ID Date Data Source [id number] 03/22/2020 05:14:00 PM EST [facility] Name Value Range Interpretation Code Description Data Source(s) Weight Measurement Method 8 8 [facility] Weight [address] [facility] pital Temperature Source 7 7 [facility] Temperature 97.5 97.5 [facility] spital Respiratory Effort 1 1 [facility] Respiratory Rate 17 17 [facility] Pulse Assessment Method 4 4 [facility] Pulse Rate [address] [facility] Height 65 65 [facility] Pressure 174/96 174/96 [facility] Weight Measurement Method 8 8 [facility] Weight [address] [facility] pital Temperature Source 7 7 [facility] Temperature 97.5 97.5 [facility] spital Respiratory Effort 1 1 [facility] Respiratory Rate 17 17 [facility] Pulse Assessment Method 4 4 G [facility] Pulse Rate [address] [facility] Height 65 65 [facility] Pressure 174/96 174/96 [facility] Weight Measurement Method 8 8 [facility] Weight [address] [facility] pital Temperature Source 7 7 [facility] Temperature 97.5 97.5 [facility] spital Respiratory Effort 1 1 [facility] Respiratory Rate 17 17 [facility] Pulse Assessment Method 4 4 G [facility] Pulse Rate [address] [facility] pital Height 65 65 [facility] Blood Pressure 174/96 174/96 [facility] ID Date Data Source [id number] 05/31/2019 12:48:00 PM EDT [facility] spital Name Value Range Interpretation Code Description Data Source(s) Weight Measurement Method 8 8 [facility] Weight [address] [facility] pital Temperature Source 7 7 [facility] Temperature 97.9 97.9 [facility] spital Respiratory Effort 1 1 [facility] Respiratory Rate 16 16 [facility] Pulse Assessment Method 4 4 G [facility] Pulse Rate [address] [facility] pital Height 65 65 [facility] Blood Pressure 155/84 155/84 [facility] Weight Measurement Method 8 8 [facility] Weight [address] [facility] pital Temperature Source 7 7 [facility] Temperature 98 98 [facility] spital Respiratory Effort 1 1 [facility] Respiratory Rate 18 18 [facility] Pulse Assessment Method 4 4 G [facility] Pulse Rate [address] [facility] pital Height 65 65 [facility] Blood Pressure 163/99 163/99 [facility] Patient Treatment Plan of Care Planned Activity Planned Date Details Description Data Source (s) Amlodipine 5 MG Oral Tablet 03/10/2020 12:00:00 AM EST [facility] sodium chloride 0.9 % SOLN 500 mL with h eparin (porcine) 1000 UNIT/ML SOLN 1,000 Units 10/16/2019 12:00:00 AM EDT [facility] Calcium Carbonate-Vit D-Min (CALCIUM 600+D3 PLUS NUCLEAR LOGGING ENGINEER ALS) 600-800 MG-UNIT TABS 09/18/2019 12:00:00 AM EDT [facility] Hydralazine Hydrochloride 50 MG Oral Tablet 07/04/2019 12:00:00 AM EDT [facility] Amlodipine 10 MG Oral Tablet 07/04/2019 12:00:00 AM EDT [facility] Labetalol hydrochloride 100 MG Oral Tablet 06/29/2019 12:00:00 AM E DT [facility] Pravastatin Sodium 80 MG Oral Tablet 06/20/2019 12:00:00 AM EDT [facility] sevelamer carbonate 800 MG Oral Tablet 06/18/2019 12:00:00 AM EDT [facility] Lidocaine 25 MG/ML / Prilocaine 25 MG/ML Topical Cream 06/11/2019 12:00:00 AM EDT [facility] Lancets Ultra Thin - 05/29/2019 12:00:00 AM EDT eCW1 ([facility]) Lancets Ultra Thin - 05/29/2019 12:00:00 AM EDT eCW1 ([facility]) gabapentin 100 MG Oral Capsule 05/28/2019 12:00:00 AM EDT [facility] 3 ML Insulin Glargine 100 UNT/ML Pen Injector [Lantus] 05/28/2019 12:00:00 AM EDT [facility] gabapentin 100 MG Oral Capsule 05/28/2019 12:00:00 AM EDT eCW1 ([facility]) carvedilol 12.5 MG Oral Tablet 05/28/2019 12:00:00 AM EDT eCW1 ([facility]) 3 ML Insulin Glargine 100 UNT/ML Pen Injector [Lantus] 05/28/2019 12:00:00 AM EDT eCW1 ([facility]) Amlodipine 5 MG Oral Tablet 05/28/2019 12:00:00 AM EDT eCW1 ([facility]) Aspirin 81 MG Chewable Tablet 05/28/2019 12:00:00 AM EDT eCW1 ([facility]) Hydralazine Hydrochloride 25 MG Oral Tablet 05/28/2019 12:00:00 AM EDT eCW1 ([facility]) Pravastatin Sodium 80 MG Oral Tablet 05/28/2019 12:00:00 AM EDT eCW1 ([facility]) Pravastatin Sodium 80 MG Oral Tablet 05/28/2019 12:00:00 AM EDT eCW1 ([facility]) carvedilol 12.5 MG Oral Tablet 05/28/2019 12:00:00 AM EDT eCW1 ([facility]) 3 ML Insulin Glargine 100 UNT/ML Pen Injector [Lantus] 05/28/2019 12:00:00 AM EDT eCW1 ([facility]) Amlodipine 5 MG Oral Tablet 05/28/2019 12:00:00 AM EDT eCW1 ([facility]) Aspirin 81 MG Chewable Tablet 05/28/2019 12:00:00 AM EDT eCW1 ([facility]) gabapentin 100 MG Oral Capsule 05/28/2019 12:00:00 AM EDT eCW1 ([facility]) Hydralazine Hydrochloride 25 MG Oral Tablet 05/28/2019 12:00:00 AM EDT eCW1 ([facility]) Aspirin 81 MG Oral Tablet [facility] POLYETHYLENE GLYCOL 3350 142 MG/ML Oral Solution [facility] Tetrahydrozoline hydrochloride 0.5 MG/ML Ophthalmic Solution [facility] 1 ML heparin sodium, porcine 1000 UNT/ML Injection [facility] Naphazoline-Pheniramine (VISINE-A OP) [facility]
[2020-04-19 18:00] VITALS: BP 138/86
[2020-04-19] MEDS: HumaLOG INSULIN (NovoLOG) PER UNIT SC SCH ×2 (18:25→21:00)
[2020-04-19] MEDS: ACETAMINOPHEN TAB 650MG DOSE (2X325MG) PO PRN (18:25)
[2020-04-19] MEDS: (RENVELA) SEVELAMER **CARBONate** 800 MG TAB PO SCH (18:25)
[2020-04-19] MEDS ORDERED: SLF 3 ML SYR IV PRN (18:30)
[2020-04-19 18:31] VITALS: BP 170/90
[2020-04-19 20:00] VITALS: BP 172/80
[2020-04-19] MEDS: CALCIUM CARBONATE 500 MG CHEW U/D PO SCH (21:25)
[2020-04-19] MEDS: DOCUSATE SODIUM 100MG CAPSULE PO SCH (21:25)
[2020-04-19] MEDS: ASPIRIN 81 MG ENTERIC TAB PO SCH (21:25)
[2020-04-19] MEDS: CARVedilol 12.5 MG TAB PO SCH (21:25)
[2020-04-19] MEDS: CO-ENZYME Q10 50 MG CAP PO SCH (21:26)
[2020-04-19] MEDS: PRAVASTATIN 20 MG TAB PO SCH (21:26)
[2020-04-19] MEDS: SLF 3 ML SYR IV SCH (21:27)
[2020-04-19] MEDS: HEPARIN SOD (PORCINE) 5000UNITS/ML 1ML VIAL/SYRINGE SC SCH (21:28)
[2020-04-20] VITALS (8 sets, daily range): BP systolic 164–200; BP diastolic 77–98
[2020-04-20] MEDS: ACETAMINOPHEN TAB 650MG DOSE (2X325MG) PO PRN ×3 (00:04→21:00)
[2020-04-20] MEDS: HEPARIN SOD (PORCINE) 5000UNITS/ML 1ML VIAL/SYRINGE SC SCH ×4 (05:57→21:06)
[2020-04-20] MEDS: SLF 3 ML SYR IV SCH ×3 (05:58→21:07)
[2020-04-20 06:16] LABS: BASO % 0.8 % (0.0-1.0); EOS # 0.2 10^3/uL (0.0-0.5); EOS % 2.9 % (0.0-3.0); HEMATOCRIT 34.8 % (36.0-47.0); LYMPH # 0.8 10^3/uL (1.5-5.0); LYMPH % 15.5 % (24.0-44.0); MEAN CORPUSCULAR HEMOGLOBIN 25.6 pg (27.0-33.0); MEAN CORPUSCULAR HGB CONC 28.7 g/dl (32.0-36.5); MEAN CORPUSCULAR VOLUME 89.2 fl (80.0-96.0); MONO # 0.4 10^3/uL (0.0-0.8); MONO % 7.6 % (2.0-8.0); NEUTROPHILS # 3.7 10^3/uL (1.5-8.5); NEUTROPHILS % 72.8 % (36.0-66.0); WHITE BLOOD COUNT 5.1 10^3/uL (4.0-10.0)
[2020-04-20 06:40] LABS: ALBUMIN 3.6 GM/DL (3.2-5.2); BILIRUBIN,TOTAL 0.5 MG/DL (0.2-1.0); CALCIUM LEVEL 9.9 MG/DL (8.8-10.2); CREATININE FOR GFR 8.96 MG/DL (0.55-1.30); GLOMERULAR FILTRATION RATE 5.6 (>39); MAGNESIUM LEVEL 2.5 MG/DL (1.8-2.4); TOTAL PROTEIN 7.4 GM/DL (6.4-8.2)
[2020-04-20 06:55] LABS: PLATELET COUNT, AUTOMATED 127 10^3/uL (150-450)
[2020-04-20] MEDS ORDERED: LIDOCAINE 1% SDV 5ML VIAL SC PRN (07:00)
[2020-04-20] MEDS: HumaLOG INSULIN (NovoLOG) PER UNIT SC SCH ×4 (07:30→21:00)
[2020-04-20] MEDS: (RENVELA) SEVELAMER **CARBONate** 800 MG TAB PO SCH ×2 (07:49→18:29)
[2020-04-20] MEDS ORDERED: GABAPENTIN 100 MG CAP PO SCH (09:00)
--- NOTE | 2020-04-20 11:18 | IPNPDOC ---
Text Note Date of Service The patient was seen on 04/20/20. NOTE Subjective: Patient stated that she has generalized weakness associated with nausea. Denied fever or chills Objective: GENERAL APPEARANCE: NAD HEENT: no scleral icterus, no JVD, EOMI CARDIOVASCULAR: S1S2 LUNGS: Diminished lung sounds bilaterally ABDOMEN: soft & not tender w palpitation MUSCULOSKELETAL: no cyanosis, no swelling INTEGUMENT: no generalized pallor NEUROLOGICAL: cranial nerve function from 2-12 intact intact, follows commands, speech not dysarthric Assessment and plan 75 yo F with a hx of CAD (s/p CABG, ischemic cardiomyopathy), Chronic HFrEF (last echo 03/2020 EF 40%), CVA with residual R sided weakness, HTN, ESRD on HD Since Feb 2015 (MWF, L upper arm AV fistula), and medication non compliance. Admitted to hospitalist service for management of fluid overload with hemodialysis. Nephrology consult placed. Acute diastolic CHF Secondary to volume overload Volume management by dialysis Dialysis today Dyspnea Secondary to volume overload Dialysis Appreciate/agree with preanalytics team lead consult End-stage renal diseases Continue dialysis Nephrology team follows her Hypertension/hypertensive emergency Dialysis Hydralazine IV when necessary Generalized weakness/history of fall hx of prior CVA, R sided residual weakness PT/OT CAD s/p CABG Continue home cardioprotective medications Chest pain Cardiac workup negative Resolved Diabetes type 2 Insulin Sliding Scale Diabetes diet Chronic anemia Secondary to anemia of chronic diseases Patient on the Aranesp VS,Fishbone, I+O VS, Fishbone, I+O Laboratory Tests 04/19/20 12:01 04/20/20 05:37 Vital Signs Date Time Temp Pulse Resp B/P (MAP) Pulse Ox O2 Delivery O2 Flow Rate FiO2 04/20/20 08:00 97.8 76 18 200/98 (132) 95 Nasal Cannula 3.0 l I&O- Last 24 Hours up to 6 AM 04/20/20 06:00 Intake Total 150 ml Balance 150 ml COLTEN DE LA O DO Apr 20, 2020 11:18
[2020-04-20] MEDS: EMLA CREAM 5GM TUBE (LIDOCAINE/PRILOCAINE) TOP SCH (12:00)
[2020-04-20] MEDS: CARVedilol 12.5 MG TAB PO SCH ×2 (12:54→20:59)
--- NOTE | 2020-04-20 13:15 | CR ---
CONSULTATION DATE: 04/20/2020 REFERRING PHYSICIAN: LISA YU MD REASON FOR CONSULTATION: Management of endstage renal disease, hemodialysis and fluid overload. CHIEF COMPLAINT: The patient presented to the hospital yesterday with progressive shortness of breath. HISTORY OF PRESENT ILLNESS: Bree Acosta is a 75-year-old female with a past medical history of coronary artery disease, ischemic cardiomyopathy, heart failure, endstage renal disease on hemodialysis q. Monday, Monday and Monday. The last time she was dialyzed as per her regular schedule and about 1.9 liters of fluid was removed. However, she presented to the hospital Emergency Room over the weekend with progressive shortness of breath. She was also found to be hypertensive with systolic blood pressures in the 190s to 200s. She was admitted under the Hospitalist service last night for decompensated congestive heart failure. Nephrology Service was called for further help in the management of this patient. Patient was seen and examined by myself in the morning during hemodialysis. I have already arranged her hemodialysis to be done early in the morning today. Her blood pressures are getting better now on dialysis and fluid removal. PAST MEDICAL HISTORY: Past medical history of endstage renal disease on hemodialysis q. Monday, Monday and Monday. History of coronary artery disease status post CABG. She has ischemic cardiomyopathy, chronic heart failure with reduced ejection fraction, LVEF is around 35%. She has a history of CVA with right sided weakness, diabetes mellitus Type 2 insulin dependent, hypertension, hyperlipidemia, history of spinal stenosis, anemia and endstage renal disease, bilateral bronchiectasis, bilateral lower extremity weakness, she uses a walker, chronic noncompliance with medications at home. PAST SURGICAL HISTORY: Status post AV fistula placement. History of lumbar laminectomy in the past, status post coronary artery bypass grafting. ALLERGIES: She is allergic to statins. FAMILY HISTORY: No significant family history of cancers. There is a positive history of endstage renal disease in mother. SOCIAL HISTORY: She denies any smoking, illicit drug abuse or alcohol abuse. REVIEW OF SYSTEMS: Constitutional: She denies any fevers or chills. Eyes: She denies any blurry vision or double vision. ENT: She denies any dysphagia or odynophagia. Cardiovascular: She reports progressive shortness of breath. Respiratory: She denies any cough or phlegm but she does report shortness of breath. GI: She denies any nausea or vomiting. Genitourinary: She denies any dysuria or hematuria. She does report bilateral lower extremity weakness. MUSCULOSKELETAL PHYSIOTHERAPIST: She denies any strokes or seizures. Skin: She denies any rashes or ulcers. Hematologic/Oncologic: She denies any easy bleeding or bruising. All other review of systems are negative. PHYSICAL EXAMINATION: GENERAL: Patient is alert and oriented x3, laying in bed, getting hemodialysis done. VITAL SIGNS: Temperature is 97.6 degrees Fahrenheit, blood pressure is 178/86. Pulse is 80, respiratory rate of 18, saturating 94% on nasal cannula at 3 liters. HEAD AND NECK: Extraocular muscles intact. Pupils equally round and reactive to light. Mucous membranes are moist. NECK: Supple. Moderately elevated JVD. CARDIOVASCULAR: S1 and S2. Regular rate. No edema of the bilateral lower extremities. RESPIRATORY: Mildly decreased breath sounds at the bases with inspiratory crackles. ABDOMEN: Soft, positive bowel sounds. Nontender. No organomegaly. MUSCULOSKELETAL: No clubbing or cyanosis. Pulses are 2+. MUSCULOSKELETAL PHYSIOTHERAPIST: No focal deficit. Power is 5/5 in all extremities. LABORATORY DATA: CBC showed a WBC of 5.1, hemoglobin is 10, platelets are 127,000. BMP showed a sodium of 138, potassium is 5, chloride is 100, bicarbonate 28, BUN 62, creatinine is 8.9. Magnesium is 2.5, albumin is 3.6. Microbiology: COVID-19 is negative. IMAGING: A CT chest was done yesterday which showed cardiomegaly with left atrial and ventricular enlargement. There were bilateral pleural effusions, left is greater than right. CURRENT INPATIENT MEDICATIONS: 1. Tylenol p.r.n. 2. Mylanta p.r.n. 3. Aspirin 81 mg daily. 4. Tums 500 mg daily. 5. Coreg 12.5 mg p.o. twice a day. 6. Co-Q 10, 100 mg q.h.s. 7. Colace 100 mg p.o. twice a day. 8. Gabapentin 100 mg p.o. daily. 9. Hydralazine 10 mg IV x1 dose was given. 10.She is on insulin Lispro sliding scale. 11.Milk of Magnesia 30 ml p.r.n. constipation. 12.Pravastatin 80 mg q.h.s. 13.Renvela 800 mg p.o. twice a day with meals. ASSESSMENT AND PLAN: 1. Endstage renal disease. Patient's regular dialysis days are Monday, Monday and Monday. Today, she is being dialyzed according to a regular schedule, ultrafiltration goal would be at least 3 liters as tolerated by her blood pressure. 2. 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 Patient is noncompliant with fluid restriction and blood pressure medications at home. Three liters of fluid is being removed today. Further optimization of fluid status will be done tomorrow morning, if needed she will get an ultrafiltration done. 3. Hypertension. Patient does not take her blood pressure medications at home. Continue Coreg at this time, she is getting hydralazine p.r.n. She has been started on hydralazine, JOSH inhibitors and even Entresto in the past but she does not take it. 4. Chronic kidney disease mineral bone disease, continue current dose of Tums and Renvela. 5. Anemia and endstage renal disease, hemoglobin level is 10 which is optimal. If hemoglobin drops further, she will be started on Aranesp with dialysis. 6. History of stroke and coronary artery disease status post CABG. Continue current dose of aspirin and statins. Thank you for involving me in the care of this patient. I shall be happy to follow the patient along with you tomorrow morning.
[2020-04-20] MEDS: DOCUSATE SODIUM 100MG CAPSULE PO SCH ×2 (14:41→20:59)
[2020-04-20] MEDS ORDERED: hydrALAZINE 20MG/ML 1ML VIAL (J0360 PER 20MG) IV PRN (15:00)
[2020-04-20] MEDS: PRAVASTATIN 20 MG TAB PO SCH (20:59)
[2020-04-20] MEDS: CO-ENZYME Q10 50 MG CAP PO SCH (21:00)
[2020-04-20] MEDS: CALCIUM CARBONATE 500 MG CHEW U/D PO SCH (21:00)
[2020-04-20] MEDS: ASPIRIN 81 MG ENTERIC TAB PO SCH (21:00)
[2020-04-21] VITALS: BP 117/79
[2020-04-21 04:00] VITALS: BP 122/84
[2020-04-21 05:25] LABS: BASO % 0.7 % (0.0-1.0); EOS # 0.2 10^3/uL (0.0-0.5); EOS % 3.6 % (0.0-3.0); HEMATOCRIT 35.6 % (36.0-47.0); HEMOGLOBIN 10.6 g/dl (12.0-15.5); LYMPH % 23.1 % (24.0-44.0); MEAN CORPUSCULAR HEMOGLOBIN 26.2 pg (27.0-33.0); MEAN CORPUSCULAR HGB CONC 29.8 g/dl (32.0-36.5); MEAN CORPUSCULAR VOLUME 88.1 fl (80.0-96.0); MONO # 0.4 10^3/uL (0.0-0.8); MONO % 10.1 % (2.0-8.0); NEUTROPHILS # 2.6 10^3/uL (1.5-8.5); NEUTROPHILS % 62.3 % (36.0-66.0); PLATELET COUNT, AUTOMATED 136 10^3/uL (150-450); RED BLOOD COUNT 4.04 10^6/uL (4.00-5.40); WHITE BLOOD COUNT 4.2 10^3/uL (4.0-10.0)
[2020-04-21 05:52] LABS: ALBUMIN 3.3 GM/DL (3.2-5.2); BILIRUBIN,TOTAL 0.4 MG/DL (0.2-1.0); CALCIUM LEVEL 9.3 MG/DL (8.8-10.2); CREATININE FOR GFR 5.46 MG/DL (0.55-1.30); GLOMERULAR FILTRATION RATE 9.9 (>39); MAGNESIUM LEVEL 2.2 MG/DL (1.8-2.4); TOTAL PROTEIN 7.3 GM/DL (6.4-8.2)
[2020-04-21] MEDS: HEPARIN SOD (PORCINE) 5000UNITS/ML 1ML VIAL/SYRINGE SC SCH ×4 (06:00→22:00)
[2020-04-21] MEDS: SLF 3 ML SYR IV SCH ×3 (06:49→21:16)
[2020-04-21] MEDS: HumaLOG INSULIN (NovoLOG) PER UNIT SC SCH ×4 (07:30→19:56)
[2020-04-21 08:00] VITALS: BP 120/58
[2020-04-21] MEDS: (RENVELA) SEVELAMER **CARBONate** 800 MG TAB PO SCH ×2 (08:47→17:40)
[2020-04-21] MEDS: CARVedilol 12.5 MG TAB PO SCH ×2 (08:48→21:15)
[2020-04-21] MEDS: DOCUSATE SODIUM 100MG CAPSULE PO SCH ×2 (08:48→21:15)
--- NOTE | 2020-04-21 11:50 | REP ---
INDICATION: AMS, confusion. COMPARISON: Comparison head CT study April 05, 2020.. TECHNIQUE: Helical scanning is acquired. 5 mm axial images were reformatted. Coronal MPR images were generated. FINDINGS: Bone window settings demonstrate an intact bony calvarium. There is no evidence of skull fracture or incidental bony calvarial lesion. The visualized paranasal sinuses appear clear. No intraorbital abnormality is seen. On soft tissue window setting images; the lateral, third, and fourth ventricles are normal in size and position. Tripp-white differentiation pattern is normal above and below the tentorium. There are is no evidence of intracranial hemorrhage. No mass, edema, infarction, or midline shift is seen. No extra-axial fluid collection is appreciated. There is heavy vascular calcification again noted at the skull base. Generalized volume loss and small vessel atherosclerotic changes are again noted. Physiologic calcification of the basal ganglia is noted. Findings are unchanged from April 05, 2020. IMPRESSION: Generalized volume loss and small vessel changes. No acute intracranial abnormality.. <Electronically signed by Bridger Moreno > 04/21/20 [id number]
[2020-04-21 12:00] VITALS: BP 105/73
--- NOTE | 2020-04-21 13:12 | IPN ---
PROGRESS NOTE DATE: 04/21/2020 SUBJECTIVE: Patient was seen and examined at the bedside today morning. She is afebrile, hemodynamically stable. Now blood pressures are better controlled. She was dialyzed yesterday. There was 2.5 liters of fluid removed. OBJECTIVE: Vital signs: Temperature is 96.7 degrees Fahrenheit, blood pressure 120/58, pulse is 75, respiratory rate of 19, saturating 100% on room air. Intake and output: There is no urine output recorded. Ultrafiltration with hemodialysis was 2.5 liters. Weight in the bed scale is 61.5 kg. PHYSICAL EXAMINATION: GENERAL: Patient is awake, alert, oriented times three, sitting up in the sofa in no apparent distress. HEAD AND NECK: Extraocular muscles are intact. Pupils equally round and reactive to light. Mucous membranes are moist. Neck is supple. There is no jugular venous distention (JVD). CARDIOVASCULAR: S1, S2, regular rate. No edema of the bilateral lower extremities. RESPIRATORY: Mildly decreased breath sounds at the bases were noted. No active rales or rhonchi. ABDOMEN: Soft. Positive bowel sounds. Nontender. No organomegaly. MUSCULOSKELETAL: No clubbing or cyanosis. Pulses are 2+. CENTRAL NERVOUS SYSTEM: No focal deficit. Power is 5/5 in all extremities. LABORATORY REVIEW: CBC showed a WBC 4.2, hemoglobin 10.6, platelets are 136. BMP showed sodium 136, potassium 4, chloride 100, bicarbonate 30, BUN 37, creatinine is 5.4. Albumin is 3.3. IMAGING: A CT scan of the head was done today, which showed generalized volume loss and small-vessel changes. No acute intracranial abnormality. CURRENT INPATIENT MEDICATIONS: Patient's medications were all reviewed by myself. She continues to be on Coreg 12.5 mg by mouth twice a day. Gabapentin has been stopped. No other significant change in the medications today as compared with yesterday. ASSESSMENT AND PLAN: 1. End-stage renal disease. Patient was dialyzed yesterday according to her schedule. Next hemodialysis will be tomorrow morning. 2. 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 Patient has bilateral pleural effusions. Her left is worse than right. She has systolic heart failure, noncompliant with medications. She was dialyzed yesterday. I offered another session of ultrafiltration today, but she refused. Next dialysis to be done tomorrow morning. 3. Hypertension. Blood pressure is better controlled. Continue current dose of Coreg. If blood pressure stays high, then hydralazine will be started. She is noncompliant with medications as outpatient. 4. Confusion and weakness. Her gabapentin has been stopped. CT scan is negative. 5. Anemia and end-stage renal disease. Hemoglobin level is 10.6, which is optimal.
--- NOTE | 2020-04-21 16:25 | REP ---
INDICATION: Left arm pain COMPARISON: None. TECHNIQUE: Real time compression and duplex Doppler evaluation of the Left upper extremity deep venous system is performed. FINDINGS: The Left subclavian, jugular, axillary, brachial, basilic and cephalic veins are fully compressible where accessible with transducer pressure, and demonstrate no intraluminal thrombus and normal venous waveforms. There is no evidence of deep venous thrombosis. IMPRESSION: No evidence of deep venous thrombosis of the Left upper extremity deep vein system. There is a patent AV fistula in the left upper arm. <Electronically signed by Bebeto Tripp > 04/21/20 [id number]
[2020-04-21 16:33] VITALS: BP 160/86
--- NOTE | 2020-04-21 20:02 | IPNPDOC ---
Subjective Date Seen The patient was seen on 04/21/20. Subjective Chief Complaint/HPI Mrs. Acosta is a 75 year old female with ESRD on dialysis MWF and combined systolic and diastolic heart failure who presented for shortness of breath 2/2 medical non-compliance. This morning shows a little bit more confused, but otherwise denied any dyspnea or chest pain. Did order a CT head which was negative. This afternoon she is complaining of left arm pain and because of the pain she had trouble moving the hand. Left radial pulse strong and bruit was intact. She is able to move the fingers but was hesitant to squeeze strong due to pain. Ordered for left upper extremity, which is negative. Objective Physical Examination General Exam: Positive: Cooperative Eye Exam: Positive: EOMI; Negative: Sclera icteric ENT Exam: Positive: Atraumatic Neck Exam: Positive: Supple Chest Exam: Positive: Diminished Heart Exam: Positive: Rate Normal, Regular Rhythm Abdomen Exam: Positive: Normal bowel sounds, Soft; Negative: Tenderness Neuro Exam: Positive: Cranial Nerves 3-12 NL Psych Exam: Negative: Mental status NL Assessment /Plan Assessment Mrs. Acosta is a 75 year old female with ESRD on dialysis MWF and combined systolic and diastolic heart failure who presented for shortness of breath 2/2 medical non-compliance. Fluid status has been normalized. Planning for dialysis tomorrow. If patient feels better tomorrow and does better with physical therapy, can start considering discharge home. Plan/VTE VTE Prophylaxis Ordered?: Yes Plan 1. Acute combined systolic and diastolic CHF Secondary to fluid overloaded status Patient's fluid status corrected through dialysis Plan for dialysis tomorrow 2 L fluid restriction 2. Confusion/altered mental status This morning she felt a little more confused than normal CT head is normal Patient cannot produce urine for UA Supportive care Hold gabapentin 3. End-stage renal disease on dialysis M, W, F Nephrology following and recommendations appreciated Dialysis tomorrow Continue Renvela 4. Generalized weakness/history of fall Physical therapy working with patient 5. CAD status post CABG Continue aspirin, pravastatin, Coreg 6. Diabetes mellitus type 2 Continue sliding scale insulin 7. DVT prophylaxis Heparin Disposition: Altered mental status possibly secondary to gabapentin. If mental status improves and she does well with physical therapy tomorrow, possible discharge after dialysis VS, I&O, 24H, [facility] Vital Signs/I&O Vital Signs Date Time Temp Pulse Resp B/P (MAP) Pulse Ox O2 Delivery O2 Flow Rate FiO2 04/21/20 16:33 98.8 80 16 160/86 (110) 100 Room Air 04/20/20 08:00 3.0 I&O- Last 24 Hours up to 6 AM 04/21/20 06:00 Intake Total 270 ml Output Total 2500 ml Balance -2230 ml Laboratory Data 24H LABS Laboratory Tests 2 04/20/20 20:07: Bedside Glucose (Misc Panel) 102 04/21/20 05:03: Immature Granulocyte % (Auto) 0.2, Neutrophils (%) (Auto) 62.3, Lymphocytes (%) (Auto) 23.1L, Monocytes (%) (Auto) 10.1H, Eosinophils (%) (Auto) 3.6H, Basophils (%) (Auto) 0.7, Neutrophils # (Auto) 2.6, Lymphocytes # (Auto) 1.0L, Monocytes # (Auto) 0.4, Eosinophils # (Auto) 0.2, Basophils # (Auto) 0.0, Nucleated Red Blood Cells % (auto) 0.0, Anion Gap 6L, Glomerular Filtration Rate 9.9L, Calcium Level 9.3, Magnesium Level 2.2, Total Bilirubin 0.4, Aspartate Amino Transf (AST/SGOT) 7, Alanine Aminotransferase (ALT/SGPT) 16, Alkaline Phosphatase 63, Total Protein 7.3, Albumin 3.3, Albumin/Globulin Ratio 0.8L 04/21/20 11:59: Bedside Glucose (Misc Panel) 261H 04/21/20 17:27: Bedside Glucose (Misc Panel) 79L CBC/BMP Laboratory Tests 04/21/20 05:03 Microbiology Microbiology 04/19/20 Respiratory Virus Panel (PCR) ([facility]) - Final, Complete HADLEY HUANG DO Apr 21, 2020 20:02
[2020-04-21] MEDS: ASPIRIN 81 MG ENTERIC TAB PO SCH (21:15)
[2020-04-21] MEDS: PRAVASTATIN 20 MG TAB PO SCH (21:15)
[2020-04-21] MEDS: CALCIUM CARBONATE 500 MG CHEW U/D PO SCH (21:15)
[2020-04-21] MEDS: CO-ENZYME Q10 50 MG CAP PO SCH (21:16)
[2020-04-21 22:00] VITALS: BP 157/91
[2020-04-22] MEDS: HEPARIN SOD (PORCINE) 5000UNITS/ML 1ML VIAL/SYRINGE SC SCH ×4 (05:51→21:12)
[2020-04-22] MEDS: DOCUSATE SODIUM 100MG CAPSULE PO SCH ×2 (05:58→21:07)
[2020-04-22] MEDS: SLF 3 ML SYR IV SCH ×3 (05:59→21:09)
[2020-04-22] MEDS: CARVedilol 12.5 MG TAB PO SCH ×2 (05:59→21:08)
[2020-04-22 06:00] VITALS: BP 142/66
[2020-04-22] MEDS: HumaLOG INSULIN (NovoLOG) PER UNIT SC SCH ×4 (07:30→21:00)
[2020-04-22] MEDS ORDERED: SODIUM CHLORIDE 0.9% 1000ML IV PRN (07:45)
[2020-04-22] MEDS ORDERED: LIDOCAINE 1% SDV 5ML VIAL SC PRN (07:45)
[2020-04-22] MEDS: (RENVELA) SEVELAMER **CARBONate** 800 MG TAB PO SCH ×2 (08:00→17:15)
[2020-04-22] MEDS: EMLA CREAM 5GM TUBE (LIDOCAINE/PRILOCAINE) TOP SCH (09:25)
[2020-04-22 10:07] LABS: BASO % 0.7 % (0.0-1.0); EOS # 0.2 10^3/uL (0.0-0.5); EOS % 3.9 % (0.0-3.0); HEMATOCRIT 33.8 % (36.0-47.0); HEMOGLOBIN 9.9 g/dl (12.0-15.5); LYMPH # 0.8 10^3/uL (1.5-5.0); LYMPH % 18.5 % (24.0-44.0); MEAN CORPUSCULAR HEMOGLOBIN 25.6 pg (27.0-33.0); MEAN CORPUSCULAR HGB CONC 29.3 g/dl (32.0-36.5); MEAN CORPUSCULAR VOLUME 87.3 fl (80.0-96.0); MONO # 0.5 10^3/uL (0.0-0.8); MONO % 10.4 % (2.0-8.0); NEUTROPHILS # 2.9 10^3/uL (1.5-8.5); NEUTROPHILS % 66.3 % (36.0-66.0); PLATELET COUNT, AUTOMATED 134 10^3/uL (150-450); RED BLOOD COUNT 3.87 10^6/uL (4.00-5.40); WHITE BLOOD COUNT 4.3 10^3/uL (4.0-10.0)
[2020-04-22 10:40] LABS: BILIRUBIN,TOTAL 0.3 MG/DL (0.2-1.0); CALCIUM LEVEL 9.3 MG/DL (8.8-10.2); CREATININE FOR GFR 8.44 MG/DL (0.55-1.30); MAGNESIUM LEVEL 2.3 MG/DL (1.8-2.4); POTASSIUM SERUM 4.6 MEQ/L (3.5-5.1); TOTAL PROTEIN 6.4 GM/DL (6.4-8.2)
[2020-04-22] MEDS ORDERED: DARBEPOETIN 100 MCG/0.5 ML *DIALYSIS* SYRINGE (J0882) IV SCH (11:20)
--- NOTE | 2020-04-22 11:53 | IPN ---
NEPHROLOGY PROGRESS NOTE DATE: 04/22/2020 SUBJECTIVE: Patient was seen and examined at the bedside today morning. She is afebrile, hemodynamically stable. Today is patient's regular day of dialysis. She was getting ready to do her physical therapy when I saw her in the morning. Her blood pressures are better controlled now. OBJECTIVE: VITAL SIGNS: Temperature 97.5 degrees Fahrenheit, blood pressure 142/66, pulse 80, respiratory rate 17, saturating 97% on room air. INTAKE AND OUTPUT: Urine output is not recorded. Weight in the bed scale was 61.5 kg yesterday. PHYSICAL EXAMINATION: GENERAL: Patient is awake, alert, oriented x3, lying in bed in no apparent distress. HEAD AND NECK: Extraocular muscles intact. Pupils equally round and reactive to light. Mucous membranes are moist. Neck is supple. There is no JVD. CARDIOVASCULAR: S1, S2, regular rate. No edema of the bilateral lower extremities. RESPIRATORY: Chest is clear to auscultation bilaterally. Bilateral equal air entry. No rales or rhonchi. ABDOMEN: Soft, positive bowel sounds, nontender. No organomegaly. MUSCULOSKELETAL: No clubbing or cyanosis. Pulses are 2+. AV ACCESS: She has a left upper arm AV fistula with thrill and bruit. CONSTRUCTION STONEMASON: No focal deficit. Power is 5/5 in all extremities. LABORATORY REVIEW: CBC showed WBC 4.3, hemoglobin 9.9, platelets 134,000. BMP showed sodium 135, potassium 4.6, chloride 97, bicarb 27, BUN 58, creatinine 8.4. CURRENT INPATIENT MEDICATIONS: Patient's medications were all reviewed by myself. There is no significant change in medications today as compared with yesterday. ASSESSMENT AND PLAN: 1. End-stage renal disease: Patient will be dialyzed today and I will try to remove at least 2.5 to 3 kg of fluid as tolerated by her blood pressure. 2. Acute on chronic decompensated combined systolic and diastolic congestive heart failure: Patient will get fluid removal as mentioned above. 3. Hypertension with hypertensive heart disease: Continue current dose of Coreg. Patient is noncompliant with all the other medications as outpatient. Blood pressures are better controlled with optimization of fluid status. 4. Anemia and end-stage renal disease: Start Aranesp with dialysis. Now hemoglobin is below 10.
[2020-04-22 14:00] VITALS: BP 125/60
--- NOTE | 2020-04-22 19:07 | IPNPDOC ---
Subjective Date Seen The patient was seen on 04/22/20. Subjective Chief Complaint/HPI Mrs. Acosta is a 75 year old female with ESRD on dialysis MWF and combined systolic and diastolic heart failure who presented for shortness of breath 2/2 medical non-compliance. This morning, she wasn't confused. Denied any chest pain or dyspnea. Plan for patient to go to [facility] early tomorrow morning Objective Physical Examination General Exam: Positive: Cooperative Eye Exam: Positive: EOMI; Negative: Sclera icteric ENT Exam: Positive: Atraumatic Neck Exam: Positive: Supple Chest Exam: Positive: Diminished Heart Exam: Positive: Rate Normal, Regular Rhythm Abdomen Exam: Positive: Normal bowel sounds, Soft; Negative: Tenderness Neuro Exam: Positive: Cranial Nerves 3-12 NL Psych Exam: Positive: Mental status NL Assessment /Plan Assessment Mrs. Acosta is a 75 year old female with ESRD on dialysis MWF and combined systolic and diastolic heart failure who presented for shortness of breath 2/2 medical non-compliance. Patient had dialysis today. Plan to go to [facility] tomorrow Plan/VTE VTE Prophylaxis Ordered?: Yes Plan 1. Acute combined systolic and diastolic CHF Secondary to fluid overloaded status Patient's fluid status corrected through dialysis Patient had dialysis today 2 L fluid restriction 2. Confusion/altered mental status Resolved 3. End-stage renal disease on dialysis M, W, F Nephrology following and recommendations appreciated Dialysis today Continue Renvela 4. Generalized weakness/history of fall Physical therapy working with patient 5. CAD status post CABG Continue aspirin, pravastatin, Coreg 6. Diabetes mellitus type 2 Continue sliding scale insulin 7. DVT prophylaxis Heparin Disposition: Plan to go to [facility] tomorrow VS, I&O, 24H, [facility] Vital Signs/I&O Vital Signs Date Time Temp Pulse Resp B/P (MAP) Pulse Ox O2 Delivery O2 Flow Rate FiO2 04/22/20 14:00 97.0 74 16 125/60 (81) 95 Room Air 04/20/20 08:00 3.0 I&O- Last 24 Hours up to 6 AM 04/22/20 06:00 Intake Total 680 ml Balance 680 ml Laboratory Data 24H LABS Laboratory Tests 2 04/21/20 19:51: Bedside Glucose (Misc Panel) 140H 04/22/20 06:20: Bedside Glucose (Misc Panel) 105 04/22/20 09:45: Immature Granulocyte % (Auto) 0.2, Neutrophils (%) (Auto) 66.3H, Lymphocytes (%) (Auto) 18.5L, Monocytes (%) (Auto) 10.4H, Eosinophils (%) (Auto) 3.9H, Basophils (%) (Auto) 0.7, Neutrophils # (Auto) 2.9, Lymphocytes # (Auto) 0.8L, Monocytes # (Auto) 0.5, Eosinophils # (Auto) 0.2, Basophils # (Auto) 0.0, Nucleated Red Blood Cells % (auto) 0.0, Anion Gap 11, Glomerular Filtration Rate 6.0L, Calcium Level 9.3, Magnesium Level 2.3, Total Bilirubin 0.3, Aspartate Amino Transf (AST/SGOT) 11, Alanine Aminotransferase (ALT/SGPT) 12, Alkaline Phosphatase 56, Total Protein 6.4, Albumin 3.0L, Albumin/Globulin Ratio 0.9L 04/22/20 13:59: Bedside Glucose (Misc Panel) 116H 04/22/20 14:13: Coronavirus (COVID-19)(PCR) NEGATIVE 04/22/20 16:47: Bedside Glucose (Misc Panel) 161H CBC/BMP Laboratory Tests 04/22/20 09:45 Microbiology Microbiology 04/19/20 Respiratory Virus Panel (PCR) ([facility]) - Final, Complete HADLEY HUANG DO Apr 22, 2020 19:07
[2020-04-22] MEDS: ASPIRIN 81 MG ENTERIC TAB PO SCH (21:07)
[2020-04-22] MEDS: CALCIUM CARBONATE 500 MG CHEW U/D PO SCH (21:08)
[2020-04-22] MEDS: PRAVASTATIN 20 MG TAB PO SCH (21:08)
[2020-04-22 22:00] VITALS: BP 155/80
[2020-04-22] MEDS ORDERED: ACET1TAB55 PO (22:23)
[2020-04-22] MEDS ORDERED: INSUHUMDS SC ×2 (22:23)
[2020-04-23] MEDS: HEPARIN SOD (PORCINE) 5000UNITS/ML 1ML VIAL/SYRINGE SC SCH (05:26)
[2020-04-23] MEDS: SLF 3 ML SYR IV SCH (05:26)
[2020-04-23 06:00] VITALS: BP 157/61
[2020-04-23 07:40] LABS: BASO % 0.6 % (0.0-1.0); EOS # 0.1 10^3/uL (0.0-0.5); EOS % 2.2 % (0.0-3.0); HEMATOCRIT 37.9 % (36.0-47.0); LYMPH # 1.2 10^3/uL (1.5-5.0); LYMPH % 21.2 % (24.0-44.0); MEAN CORPUSCULAR HEMOGLOBIN 25.6 pg (27.0-33.0); MEAN CORPUSCULAR VOLUME 88.1 fl (80.0-96.0); MONO # 0.7 10^3/uL (0.0-0.8); NEUTROPHILS # 3.5 10^3/uL (1.5-8.5); NEUTROPHILS % 63.6 % (36.0-66.0); PLATELET COUNT, AUTOMATED 139 10^3/uL (150-450); WHITE BLOOD COUNT 5.4 10^3/uL (4.0-10.0)
[2020-04-23] MEDS: (RENVELA) SEVELAMER **CARBONate** 800 MG TAB PO SCH ×2 (08:00→08:39)
[2020-04-23 08:05] LABS: ALBUMIN 3.2 GM/DL (3.2-5.2); BILIRUBIN,TOTAL 0.3 MG/DL (0.2-1.0); CALCIUM LEVEL 9.5 MG/DL (8.8-10.2); CREATININE FOR GFR 6.28 MG/DL (0.55-1.30); GLOMERULAR FILTRATION RATE 8.4 (>39); MAGNESIUM LEVEL 2.2 MG/DL (1.8-2.4); POTASSIUM SERUM 4.4 MEQ/L (3.5-5.1); TOTAL PROTEIN 7.4 GM/DL (6.4-8.2)
[2020-04-23] MEDS: HumaLOG INSULIN (NovoLOG) PER UNIT SC SCH (08:34)
[2020-04-23 08:35] VITALS: BP 156/63
[2020-04-23] MEDS: CARVedilol 12.5 MG TAB PO SCH (08:35)
[2020-04-23] MEDS: DOCUSATE SODIUM 100MG CAPSULE PO SCH (08:35)
--- NOTE | 2020-04-23 09:20 | DS.PDOC ---
Discharge Summary General Date of Admission Apr 19, 2020 at 16:19 Date of Discharge Apr 23, 2020 Discharge Summary PROCEDURES PERFORMED DURING STAY: None ADMITTING DIAGNOSES: 1. SOB 2/2 fluid overload in the setting of ESRD 2. ESRD on dialysis MWF 3. HTN 4. CAD s/p CABG 5. IDDM2 DISCHARGE DIAGNOSES: 1. Acute combined systolic and diastolic CHF 2. ESRD on dialysis MWF 3. HTN 4. Generalized weakness/history of fall 5. CAD status post CABG 6. Diabetes mellitus type 2 COMPLICATIONS/CHIEF COMPLAINT: ESRD/Pleural Effusion. HISTORY OF PRESENT ILLNESS: Mrs. Acosta is a 75 year old female with ESRD on dialysis MWF, CVA with residual right sided weakness, and HTN who presents dyspnea for 2 days. She went to her scheduled hemodialysis on 04/17/2020. That evening, she developed dyspnea. Dyspnea was persistent. In addition, she had midsternal and pleuritic chest pain. Pain worse with palpation. In the ED, She was found to be hypoxic at 88% and CT chest demonstrated bilateral pleural effusion with left greater than right. HOSPITAL COURSE: Nephrology was consulted. Patient was dialyzed and did well. She did complain of left hand cramping pain on 04/21. Left AV fistula still produced bruit. Left radial pulse was strong. Vascular US of left upper extremity negative for DVT. Most likely musculoskeletal. Patient worked with PT/OT and they recommended skilled rehab. This morning, patient denies any chest pain, dyspnea, or abdominal pain. Patient will be discharged to [facility]. DISCHARGE MEDICATIONS: Please see below. ALLERGIES: Please see below. PHYSICAL EXAMINATION ON DISCHARGE: VITAL SIGNS: Please see below. GENERAL: Comfortable, in no apparent distress HEENT: Head normocephalic, atraumatic NECK: Supple CARDIOVASCULAR EXAMINATION: Regular rate and rhythm RESPIRATORY EXAMINATION: Lungs clear to auscultation bilaterally ABDOMINAL EXAMINATION: Soft, non-tender, normal bowel sounds EXTREMITIES: No pitting edema bilaterally SKIN: Warm and dry NEUROLOGICAL EXAMINATION: CN 3-12 grossly intact PSYCHIATRIC EXAMINATION: Normal mood and affect LABORATORY DATA: Please see below. IMAGING: CT chest 04/19/2020 1. Cardiomegaly with left atrial and ventricular enlargement, some vascular redistribution and bilateral pleural effusions left greater than right, slightly smaller than on the 2019 study confluent right lower lobe opacities with underlying fibrosis and less confluent opacities in the periphery of the right lower lobe and right middle lobe compared to prior. All this suggests cardiomegaly with some pulmonary edema. There is slightly less pleural effusion on the previous study. 2. Calcified and noncalcified pulmonary nodules with some progression of calcification of nodules seen. Some mediastinal nodes seen and stable. 3. Prior sternotomy with mediastinal clips and a left brachiocephalic stent noted. No other new or significant finding. Left upper extremity US No evidence of deep venous thrombosis of the Left upper extremity deep vein system. There is a patent AV fistula in the left upper arm. PROGNOSIS: Good ACTIVITY: As tolerated. DIET: Renal DISCHARGE PLAN: [facility] DISPOSITION: [facility]. DISCHARGE INSTRUCTIONS: 1. Follow up with PCP within 1 week of discharge DISCHARGE CONDITION: Stable. Total time spent on discharge planning, discharge summary, and medication reconciliation: 40 minutes Vital Signs/I&Os Vital Signs Date Time Temp Pulse Resp B/P (MAP) Pulse Ox O2 Delivery O2 Flow Rate FiO2 04/22/20 21:08 92 155/80 04/22/20 14:00 97.0 16 95 Room Air 04/20/20 08:00 3.0 I&O- Last 24 Hours up to 6 AM 04/22/20 06:00 Intake Total 680 ml Balance 680 ml Laboratory Data Labs 24H Laboratory Tests 2 04/22/20 06:20: Bedside Glucose (Misc Panel) 105 04/22/20 09:45: Immature Granulocyte % (Auto) 0.2, Neutrophils (%) (Auto) 66.3H, Lymphocytes (%) (Auto) 18.5L, Monocytes (%) (Auto) 10.4H, Eosinophils (%) (Auto) 3.9H, Basophils (%) (Auto) 0.7, Neutrophils # (Auto) 2.9, Lymphocytes # (Auto) 0.8L, Monocytes # (Auto) 0.5, Eosinophils # (Auto) 0.2, Basophils # (Auto) 0.0, Nucleated Red Blood Cells % (auto) 0.0, Anion Gap 11, Glomerular Filtration Rate 6.0L, Calcium Level 9.3, Magnesium Level 2.3, Total Bilirubin 0.3, Aspartate Amino Transf (AST/SGOT) 11, Alanine Aminotransferase (ALT/SGPT) 12, Alkaline Phosphatase 56, Total Protein 6.4, Albumin 3.0L, Albumin/Globulin Ratio 0.9L 04/22/20 13:59: Bedside Glucose (Misc Panel) 116H 04/22/20 14:13: Coronavirus (COVID-19)(PCR) NEGATIVE 04/22/20 16:47: Bedside Glucose (Misc Panel) 161H 04/22/20 20:35: Bedside Glucose (Misc Panel) 214H CBC/BMP Laboratory Tests 04/22/20 09:45 FSBS Laboratory Tests Test 04/22/20 06:20 04/22/20 13:59 04/22/20 16:47 04/22/20 20:35 Range/Units Bedside Glucose (Misc Panel) 105 116 161 214 83-110 MG/DL Microbiology Microbiology 04/19/20 Respiratory Virus Panel (PCR) ([facility]) - Final, Complete Discharge Medications Scheduled Aspirin (Aspirin EC) 81 Mg Tablet.dr, 81 MG PO QHS, (Reported) Calcium Carbonate (Calcium Carbonate) 600 Mg Tablet, 600 MG PO QHS, (Reported) Carvedilol (Carvedilol) 12.5 Mg Tablet, 12.5 MG PO BID, (Reported) Denosumab Injection (Prolia) 60 Mg/1 Ml Syringe, 60 MG SC ASDIRECTED, (Reported) EVERY SIX MONTHS; SUPPOSED TO TAKE IN JANUARY BUT UNABLE. LAST DOSE WAS JULY 2019. Insulin Human Lispro (Humalog) 100 Unit/1 Ml Vial, 0 UNITS SC AC Insulin Human Lispro (Humalog) 100 Unit/1 Ml Vial, 0 UNITS SC QHS Lidocaine/Prilocaine (Lidocaine-Prilocaine Cream) 2.5%/2.5% Cream..g., 1 APLCT TOP 3XW, (Reported) MONDAY, MONDAY AND MONDAY PRIOR TO DIALYSIS Multivitamins (Thera M Plus Tablet) 1 Each Tablet, 1 TAB PO QHS, (Reported) Pravastatin Sodium (Pravastatin Sodium) 80 Mg Tablet, 80 MG PO QHS, (Reported) Sevelamer Carbonate (Sevelamer Carbonate) 800 Mg Tablet, 800 MG PO BIDWM, (Reported) Ubidecarenone (Coenzyme Q10) 100 Mg Tablet, 100 MG PO QHS, (Reported) Scheduled PRN Acetaminophen (Acetaminophen) 325 Mg Tablet, 650 MG PO Q4H PRN for PAIN OR FEVER Docusate Sodium (Docusate Sodium) 100 Mg Capsule, 100 MG PO DAILY PRN for CONSTIPATION, (Reported) Allergies Coded Allergies: [id number] Reductase Inhibitor (Verified Allergy, Unknown, PAIN, 07/20/18) PT SAYS SHE CAN TAKE PRAVASTATIN HADLEY HUANG DO Apr 22, 2020 22:18
--- NOTE | 2020-04-23 12:09 | IPN ---
PROGRESS NOTE DATE: 04/23/2020 SUBJECTIVE: The patient was seen and examined at the bedside today morning. She is afebrile and hemodynamically stable. She was dialyzed yesterday. She tolerated the hemodialysis procedure well. She reports that she is going to be discharged to [facility] today. OBJECTIVE: VITAL SIGNS: Temperature 97.7 degrees Fahrenheit, blood pressure 157/61, pulse 75, respiratory rate 16, saturating 97% on room air. INTAKE AND OUTPUT: Urine output is not recorded. Ultrafiltration with hemodialysis was 2 liters yesterday. GENERAL: The patient is awake, alert, and oriented x3. Sitting up on the sofa, in no apparent distress. HEAD/NECK: Extraocular movements intact. Pupils equally round and reactive to light. Mucous membranes are moist. Neck is supple. There is no JVD. CARDIOVASCULAR: S1, S2. Regular rate. No edema of the bilateral lower extremities. RESPIRATORY: Chest is clear to auscultation bilaterally. Bilateral equal air entry. No rales or rhonchi. ABDOMEN: Soft with positive bowel sounds, nontender, and no organomegaly. MUSCULOSKELETAL: No clubbing or cyanosis. Pulses are 2+. PIPE FITTER MARINE: No focal deficit. Power is 5/5 in all extremities. LABORATORY REVIEW: CBC showed WBC of 5.4, hemoglobin 11, platelets 139,000. BMP showed sodium 136, potassium 4.4, chloride 98, bicarb 30, BUN 33, creatinine 6.2. CURRENT INPATIENT MEDICATIONS: The patient's medications were all reviewed by myself. There is no significant change in the medications today. ASSESSMENT/PLAN: 1. End-stage renal disease. The patient was dialyzed yesterday. She tolerated the hemodialysis procedure well. Next hemodialysis will be done as an outpatient. 2. 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 The patient's volume status is better. Advised fluid restriction. She is currently not on diuretics. Volume is managed with dialysis. 3. Hypertension with hypertensive heart disease. Continue current dose of Coreg. The patient is noncompliant with all the other medications for her blood pressure. 4. Anemia and end-stage renal disease. Hemoglobin will be managed as an outpatient as per [facility] protocol now.
== END 2020-04-23 11:10 | DRG 291 ==
LOC: M ED 11:28 → M ED INP 16:19 → M PCU 17:59 → M MSPAV 04-21 16:21
PROVIDERS: ADMIT Family Medicine; ATTEND Internal Medicine
PROC: 5A1D70Z Performance of Urinary Filtration, Intermittent, Less than 6 Hours Per Day (ICD-10-PCS; principal; 2020-04-20)
DX: I13.2 Hypertensive heart and chronic kidney disease with heart failure and with stage 5 chronic kidney disease, or end stage renal disease (principal); N18.6 End stage renal disease; I50.43 Acute on chronic combined systolic (congestive) and diastolic (congestive) heart failure; I69.351 Hemiplegia and hemiparesis following cerebral infarction affecting right dominant side; I16.1 Hypertensive emergency; I25.5 Ischemic cardiomyopathy; I25.10 Atherosclerotic heart disease of native coronary artery without angina pectoris; R53.81 Other malaise; E11.22 Type 2 diabetes mellitus with diabetic chronic kidney disease; E78.5 Hyperlipidemia, unspecified; D63.1 Anemia in chronic kidney disease; J84.10 Pulmonary fibrosis, unspecified; J47.9 Bronchiectasis, uncomplicated; R25.2 Cramp and spasm; R07.81 Pleurodynia; R41.0 Disorientation, unspecified; Z95.1 Presence of aortocoronary bypass graft; Z87.891 Personal history of nicotine dependence; Z79.82 Long term (current) use of aspirin; Z91.14 Patient's other noncompliance with medication regimen; Z99.2 Dependence on renal dialysis; Z79.899 Other long term (current) drug therapy; Z88.8 Allergy status to other drugs, medicaments and biological substances; Z20.822 Contact with and (suspected) exposure to COVID-19

== ENCOUNTER 2020-04-27 15:34 | Emergency (ER) | payer MEDICARE, BC ==
[~2020-04-27] VITALS: Ht 165.1 cm; Wt 70.0 kg
[~2020-04-27 15:34] MED LIST changes: +ACET1TAB55 PO; +ASPI-569 PO; -ASPI81TAEC PO; +CALC600T86 PO; -LABE100T36 PO; +LABE100T5 PO; -PEG1POW PO; +POLY17PO18 PO
--- NOTE | 2020-04-27 17:32 | REP ---
INDICATION: Altered Mental Status COMPARISON: 04/19/2020 TECHNIQUE: Portable AP view of the chest FINDINGS: Stable cardiomegaly. Lung limon demonstrate chronic interstitial changes with superimposed bilateral airspace disease primarily involving the lower lung zones and relatively improved as compared with prior examination. IMPRESSION: Continued bilateral airspace disease improved from prior examination. <Electronically signed by Joni Dumont > 04/27/20 [id number]
--- NOTE | 2020-04-27 18:00 | REPVR ---
PROCEDURE INFORMATION: Exam: CT Head Without Contrast Exam date and time: 04/27/2020 5:09 PM Age: 75 years old Clinical indication: Altered mental status/memory loss TECHNIQUE: Imaging protocol: Computed tomography of the head without contrast. Radiation optimization: All CT scans at this facility use at least one of these dose optimization techniques: automated exposure control; mA and/or kV adjustment per patient size (includes targeted exams where dose is matched to clinical indication); or iterative reconstruction. COMPARISON: CT Head without contrast 04/21/2020 11:22 AM FINDINGS: Brain: No intracranial mass, focal mass effect or midline shift. No acute intracranial hemorrhage. Mild decreased attenuation in periventricular/centrum semiovale white matter. No focal effacement of cortical sulci to indicate acute cortical infarct. Prominent ventricles and CSF spaces suggest parenchymal volume loss. Bones/joints: No calvarial fracture or destructive process. Paranasal sinuses: Visualized paranasal sinuses are unremarkable. Mastoid air cells: Mastoid air cells are normally aerated. Orbital cavity: Visualized globes and orbits are unremarkable. Soft tissues: No focal extracranial soft tissue swelling. IMPRESSION: 1. No acute intracranial abnormality. 2. Atrophy and chronic microangiopathic change in supratentorial white matter. Electronically signed by: Alvin Logan On 04/27/2020 18:01:06 PM
--- NOTE | 2020-04-27 19:44 | ECGEPIP ---
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
[2020-04-27 20:40] LABS: BASO % 0.5 % (0.0-1.0); EOS # 0.1 10^3/uL (0.0-0.5); EOS % 2.5 % (0.0-3.0); HEMATOCRIT 39.5 % (36.0-47.0); HEMOGLOBIN 11.3 g/dl (12.0-15.5); LYMPH # 0.7 10^3/uL (1.5-5.0); LYMPH % 16.5 % (24.0-44.0); MEAN CORPUSCULAR HEMOGLOBIN 25.6 pg (27.0-33.0); MEAN CORPUSCULAR HGB CONC 28.6 g/dl (32.0-36.5); MEAN CORPUSCULAR VOLUME 89.4 fl (80.0-96.0); MONO # 0.3 10^3/uL (0.0-0.8); MONO % 7.4 % (2.0-8.0); NEUTROPHILS # 2.9 10^3/uL (1.5-8.5); NEUTROPHILS % 72.8 % (36.0-66.0); PLATELET COUNT, AUTOMATED 224 10^3/uL (150-450); RED BLOOD COUNT 4.42 10^6/uL (4.00-5.40); WHITE BLOOD COUNT 3.9 10^3/uL (4.0-10.0)
[2020-04-27 21:19] LABS: ALBUMIN 3.7 GM/DL (3.2-5.2); BILIRUBIN,DIRECT 0.1 MG/DL (0.0-0.2); BILIRUBIN,TOTAL 0.4 MG/DL (0.2-1.0); CALCIUM LEVEL 9.4 MG/DL (8.8-10.2); CK-MB VALUE MASS 3.3 NG/ML (<3.6); CREATININE FOR GFR 5.15 MG/DL (0.55-1.30); GLOMERULAR FILTRATION RATE 10.5 (>39); MB/CK RELATIVE INDEX 5.08 (< OR =4); POTASSIUM SERUM 4.2 MEQ/L (3.5-5.1); THYROID STIMULATING HORMONE 3.66 uIU/ML (0.358-3.740); TOTAL PROTEIN 7.8 GM/DL (6.4-8.2); TROPONIN I 0.04 NG/ML (< 0.10)
[2020-04-27 23:00] VITALS: BP 160/70
== END 2020-04-28 01:36 | disposition home or self-care (01) ==
LOC: M ED 15:34
DX: R41.82 Altered mental status, unspecified (principal); Y84.1 Kidney dialysis as the cause of abnormal reaction of the patient, or of later complication, without mention of misadventure at the time of the procedure; I11.9 Hypertensive heart disease without heart failure; E10.9 Type 1 diabetes mellitus without complications; Z79.82 Long term (current) use of aspirin; Z79.899 Other long term (current) drug therapy; Z88.8 Allergy status to other drugs, medicaments and biological substances; Z99.2 Dependence on renal dialysis

== ENCOUNTER 2020-05-11 15:58 | Inpatient (IN) | payer MEDICARE, BC ==
[~2020-05-11] VITALS: Ht 165.1 cm; Wt 62.8 kg
[2020-05-11] MEDS: **hydrALAZINE** 50 MG TAB PO SCH (00:30)
[2020-05-11] MEDS: CARVedilol 12.5 MG TAB PO SCH (00:30)
--- NOTE | 2020-05-11 17:09 | REP ---
INDICATION: ams. COMPARISON: Portable chest dated 04/27/[address] dated 04/19/2020 TECHNIQUE: Portable AP chest with the patient sitting. FINDINGS: There are diffuse bilateral interstitial and alveolar infiltrates there appear to have worsened, particularly in the lung bases. The left costophrenic angle is effaced suggesting a left pleural effusion. There are sternotomy wires, unchanged. Cardiac size is enlarged, unchanged. There is an endovascular stent across the upper mediastinum, unchanged, likely within the innominate vein. IMPRESSION: Worsening bilateral infiltrates and probable left pleural effusion Cardiomegaly. Innominate vein endovascular stent. <Electronically signed by Bebeto Hoffman > 05/11/20 [id number]
[2020-05-11 17:43] LABS: BASO % 0.9 % (0.0-1.0); EOS # 0.1 10^3/uL (0.0-0.5); EOS % 2.5 % (0.0-3.0); HEMATOCRIT 41.4 % (36.0-47.0); HEMOGLOBIN 12.4 g/dl (12.0-15.5); LYMPH # 0.9 10^3/uL (1.5-5.0); LYMPH % 19.4 % (24.0-44.0); MEAN CORPUSCULAR HEMOGLOBIN 25.9 pg (27.0-33.0); MEAN CORPUSCULAR VOLUME 86.6 fl (80.0-96.0); MONO # 0.2 10^3/uL (0.0-0.8); NEUTROPHILS # 3.2 10^3/uL (1.5-8.5); PLATELET COUNT, AUTOMATED 147 10^3/uL (150-450); RED BLOOD COUNT 4.78 10^6/uL (4.00-5.40); WHITE BLOOD COUNT 4.4 10^3/uL (4.0-10.0)
[2020-05-11 18:16] LABS: ACETAMINOPHEN LEVEL < 2.0 UG/ML (10.0-30.0); ALBUMIN 4.3 GM/DL (3.2-5.2); ALT/SGPT 31 U/L (12-78); BILIRUBIN,DIRECT 0.2 MG/DL (0.0-0.2); BILIRUBIN,TOTAL 0.6 MG/DL (0.2-1.0); BLOOD UREA NITROGEN 22 MG/DL (7-18); CALCIUM LEVEL 9.6 MG/DL (8.8-10.2); CARBON DIOXIDE LEVEL 33 MEQ/L (21-32); CHLORIDE LEVEL 97 MEQ/L (98-107); CREATININE FOR GFR 4.24 MG/DL (0.55-1.30); ETHYL ALCOHOL (ETHANOL) < 0.003 % (0.000-0.010); GLOMERULAR FILTRATION RATE 13.2 (>39); GLUCOSE, FASTING 103 MG/DL (70-100); POTASSIUM SERUM 3.8 MEQ/L (3.5-5.1); SALICYLATE LEVEL < 1.7 MG/DL (5.0-30.0); SODIUM LEVEL 137 MEQ/L (136-145); TOTAL PROTEIN 9.2 GM/DL (6.4-8.2)
[2020-05-11 18:18] LABS: OSMOLALITY SERUM 291 MOSM/KG (280-301)
[2020-05-11] MEDS ORDERED: METAL LOCK LOOP XX ONE (18:18)
[2020-05-11 18:27] LABS: RSV AMPLIFICATION NEGATIVE (NEGATIVE)
[2020-05-11] MEDS ORDERED: AMLO1TAB24 PO (18:30)
[2020-05-11] MEDS ORDERED: HYDR-3911 PO (18:30)
[2020-05-11] MEDS ORDERED: INSUHUMDS SC (19:01)
--- NOTE | 2020-05-11 20:26 | REPVR ---
PROCEDURE INFORMATION: Exam: CT Chest Without Contrast; Diagnostic Exam date and time: 05/11/2020 7:52 PM Age: 75 years old Clinical indication: Chest pain; Additional info: Chf vs pn TECHNIQUE: Imaging protocol: Diagnostic computed tomography of the chest without contrast. 3D rendering (Not supervised by radiologist): MIP and/or 3D reconstructed images were created by the technologist. Radiation optimization: All CT scans at this facility use at least one of these dose optimization techniques: automated exposure control; mA and/or kV adjustment per patient size (includes targeted exams where dose is matched to clinical indication); or iterative reconstruction. COMPARISON: CT Chest without contrast 04/19/2020 2:14 PM FINDINGS: Lungs: Calcified granulomas right upper lobe, lingular lobe, and both lower lobes. Bilateral pulmonary parenchymal infiltrates most pronounced at the lung bases. Findings consistent with multifocal pneumonitis versus atypical CHF. Pleural spaces: Small bilateral pleural effusions, left greater than right. Heart: Cardiomegaly. There is severe atherosclerotic calcification of the coronary arteries. Status post CABG. Aorta: Unremarkable. No aortic aneurysm. Veins: Stent demonstrated in the innominate vein. Lymph nodes: Multiple mediastinal lymph nodes likely postinflammatory/infectious. Bones/joints: Unremarkable. No acute fracture. Soft tissues: Unremarkable. IMPRESSION: 1. Small bilateral pleural effusions, left greater than right. 2. Cardiomegaly. 3. Bilateral pulmonary parenchymal infiltrates most pronounced at the lung bases. Findings consistent with multifocal pneumonitis versus atypical CHF. 4. Multiple mediastinal lymph nodes likely postinflammatory/infectious. 5. Findings consistent with remote intrathoracic granulomatous infection. Electronically signed by: Jhonatan Sanchez On 05/11/2020 20:25:57 PM
[2020-05-11] MEDS ORDERED: FLUID PLACE HOLDER IV ONE (20:50)
[2020-05-11] MEDS ORDERED: VANCOMYCIN HCL IV ONE (20:50)
[2020-05-11] MEDS ORDERED: VANCOMYCIN HCL 1,000 MG, VIAL MATE ADAPTER 1 EACH in NS 250 ML IV ONE (21:00)
[2020-05-11] MEDS: CEFEPIME HCL 1 GM in D5W MINI-BAG PLUS 50 ML IV ONE (21:49)
[2020-05-11] MEDS ORDERED: DENOSUMAB 60MG/1ML SYRINGE (PROLIA) (J0897 PER 1MG) SC SCH (21:50)
[2020-05-11 22:04] LABS: FREE T4 1.24 NG/DL (0.76-1.46)
[2020-05-11] MEDS ORDERED: MAALOX 30 ML SUSP *UDC PO PRN (22:15)
[2020-05-11] MEDS ORDERED: MOM 30ML SUSPENSION UDC PO PRN (22:15)
[2020-05-11] MEDS ORDERED: ACETAMINOPHEN TAB 650MG DOSE (2X325MG) PO PRN (22:15)
--- NOTE | 2020-05-11 22:18 | ECGEPIP ---
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
--- NOTE | 2020-05-11 22:28 | HPEPDOC ---
[facility] Medical History & Physical Date of Admission May 11, 2020 Date of Service: May 11, 2020 History and Physical CHIEF COMPLAINT: Altered mentation HISTORY OF PRESENT ILLNESS: 75-year-old female with an extensive medical history including CAD s/p CABG, ESRD on HD MWF, IDDM, CVA, patient presents to the emergency department for altered mental status. Patient is confused and unable to give me a good history. She reported that patient arrived at the dialysis center confused she received her dialysis and half liter was removed she later went home and continued to be confused and EMS was called. Patient arrives she's able to answer questions however clearly she continues to be confused she doesn't recall that she was at dialysis today but she does know her date of she is unsure which hospital she is up but she does know she is in the hospital. Patient denies any chest pain or shortness of breath she denies abdominal pain or leg swelling. She denies any nausea or vomiting. She denies a cough or productive sputum. On chest x-ray patient was found to have a worsening bilateral infiltrate and will be adm itted for further medical workup and management. 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 speech Hypertension IDDM2 Dyslipidemia Spinal stenosis s/p lumbar laminectomy at L2, L3, L4 ESRD on HD since Feb 2015, MWF via left upper arm arteriovenous fistula Anemia of Chronic disease Bilateral Bronchiectasis with b/l calcified granulomas with mediastinal lymphadenopathy and chronic fibrosis and infiltrates of the lower lobes left > right stable since 2013 Chronic back pain Sleep disordered breathing Debility uses a rolling walker/ BLE weakness Hysterectomy CABG Lumbar laminectomy 01/2008 Fistulogram and dilatations of the AVF SOCIAL HISTORY: Denies alcohol use Quit tobacco 26 years ago. Smoked 1 PPD for 14 years Denies illicit drug use Lives at home with her FAMILY HISTORY: Mother has history of CAD and ESRD ALLERGIES: Please see below. REVIEW OF SYSTEMS: 10 point review of systems complete all negative otherwise stated in HPI HOME MEDICATIONS: Please see below. PHYSICAL EXAMINATION: Constitutional: Awake in no apparent distress but is confused and falling asleep during questioning ENT: PERRLA. Mucosa is moist Respiratory: Lungs diminished breath sounds bilaterally. No respiratory distress. No use of accessory muscles. On oxygen by nasal cannula. No wheezing or crackles appreciated. Cardiovascular: RRR S1 and S2 are normal no JVD Gastrointestinal: Abdomen is soft, non distended, non tender, BS present. Musculoskeletal: No lower extremity edema Neurologic: No focal neurological deficit despite history of right hemiparesis. Mental Status: A&O x2, oriented to person, time but not place. Skin: Warm, dry LABORATORY DATA: See below. IMAGING: See chart MICROBIOLOGY: Please see below. ASSESSMENT/PLAN 75-year-old female extensive medical history including ESRD on hemodialysis with reports of altered mentation prior to dialysis which continued once patient went home who was brought to the hospital by EMS and found to be altered with a worsened bilateral infiltrate. Patient admitted for further workup and medical management. # Altered mentation: Etiology unclear at this time she is clearly confused doesnt recall going to dialysis today. Could be from an underlying infectious process is also question of drug abuse urine toxicology screen is pending. # Pneumonia: Worsening bilateral infiltrates at bases on CXR. CT suggestive of airspace disease including pneumonitis versus atypical CHF. No clinical signs of CHF on exam. Consider pulmonology consultation. She has no leukocytosis but with these x-ray findings I will continue cefepime and vancomycin which was started in the ED. Follow-up blood cultures. # ESRD on HD MWF since 2016: Management per nephrology. D/w Dr. Kiran, consulted. # Weakness, Debility uses a rolling walker, / Spinal stenosis s/p lumbar laminectomy: Uses rolling walker, might need PT and OT eval. Hx of prior CVA, R sided residual weakness # HTN: Continue home medications Amlodipine, Carvedilol, Hydralazine. Expected to improve with hemodialysis. SBP 180 in ED. # Chronic HFrEF 34% and with HFpEF: Not in exacerbation. Continue home medications. Fu PCP. # CAD s/p CABG: c/w ASA and pravastatin # hx CVA: c/w ASA and pravastatin # Ischemic cardiomyopathy/Chronic HFrEF 40% EF: c/w home meds # DM: ISS. Frequent Accu-Cheks. Hypoglycemic precautions. 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 # DVT prophylaxis: Heparin A Yousef Hospitalist Vital Signs Vital Signs Date Time Temp Pulse Resp B/P (MAP) Pulse Ox O2 Delivery O2 Flow Rate FiO2 05/11/20 22:21 97.2 05/11/20 22:15 80 20 100 Nasal Cannula 2.0 05/11/20 21:55 201/95 (130) Laboratory Data Labs 24H Laboratory Tests 2 05/11/20 16:31: Immature Granulocyte % (Auto) 0.2, Neutrophils (%) (Auto) 72.0H, Lymphocytes (%) (Auto) 19.4L, Monocytes (%) (Auto) 5.0, Eosinophils (%) (Auto) 2.5, Basophils (%) (Auto) 0.9, Neutrophils # (Auto) 3.2, Lymphocytes # (Auto) 0.9L, Monocytes # (Auto) 0.2, Eosinophils # (Auto) 0.1, Basophils # (Auto) 0.0, Nucleated Red Blood Cells % (auto) 0.0, Anion Gap 7L, Glomerular Filtration Rate 13.2L, Osmolality 291, Lactic Acid Level 1.1, Calcium Level 9.6, Total Bilirubin 0.6, Direct Bilirubin 0.2, Aspartate Amino Transf (AST/SGOT) 22, Alanine Aminotransferase (ALT/SGPT) 31, Alkaline Phosphatase 92, Ammonia < 10, Total Protein 9.2H, Albumin 4.3, Albumin/Globulin Ratio 0.9L, Thyroid Stimulating Hormone (TSH) 4.350H, Free Thyroxine 1.24, Salicylates Level < 1.7L, Acetaminophen Level < 2.0L, Ethyl Alcohol Level < 0.003 05/11/20 16:46: Coronavirus (COVID-19)(PCR) NEGATIVE, Influenza Type A (RT-PCR) NEGATIVE, Influenza Type B (RT-PCR) NEGATIVE, Respiratory Syncytial Virus (PCR) NEGATIVE 05/11/20 17:28: POC Troponin I (Misc) 0.02 CBC/BMP Laboratory Tests 05/11/20 16:31 Home Medications Scheduled Amlodipine Besylate (Amlodipine Besylate) 5 Mg Tablet, 5 MG PO QHS Aspirin (Aspirin EC) 81 Mg Tablet.dr, 81 MG PO QHS Calcium Carbonate (Calcium Carbonate) 600 Mg Tablet, 600 MG PO QHS Carvedilol (Carvedilol) 12.5 Mg Tablet, 12.5 MG PO BID Denosumab Injection (Prolia) 60 Mg/1 Ml Syringe, 60 MG SC ASDIRECTED EVERY SIX MONTHS; SUPPOSED TO TAKE IN JANUARY BUT UNABLE. LAST DOSE WAS JULY 2019. Hydralazine HCl (Hydralazine HCl) 50 Mg Tablet, 50 MG PO TID Insulin Human Lispro (Humalog) 100 Unit/1 Ml Vial, 1 DOSE SC ACHS PER SLIDING SCALE Lidocaine/Prilocaine (Lidocaine-Prilocaine Cream) 2.5%/2.5% Cream..g., 1 APLCT TOP 3XW MONDAY, MONDAY AND MONDAY PRIOR TO DIALYSIS Multivitamins (Thera M Plus Tablet) 1 Each Tablet, 1 TAB PO QHS Pravastatin Sodium (Pravastatin Sodium) 80 Mg Tablet, 80 MG PO QHS Sevelamer Carbonate (Sevelamer Carbonate) 800 Mg Tablet, 800 MG PO BIDWM Ubidecarenone (Coenzyme Q10) 100 Mg Tablet, 100 MG PO QHS Scheduled PRN Docusate Sodium (Docusate Sodium) 100 Mg Capsule, 100 MG PO DAILY PRN for CON STIPATION Allergies Coded Allergies: Hmuoxkg-Rea-Uzw Reductase Inhibitor (Verified Allergy, Unknown, PAIN, 07/20/18) PT SAYS SHE CAN TAKE PRAVASTATIN YOUSEF,LEOLA Rizzo MD May 11, 2020 22:28
[2020-05-11] MEDS ORDERED: CEFEPIME HCL 2 GM in D5W 50 ML IV SCH (22:30)
[2020-05-11] MEDS ORDERED: FLUID PLACE HOLDER IV SCH (22:30)
[2020-05-11] MEDS ORDERED: VANCOMYCIN HCL IV SCH (22:30)
[2020-05-11 23:54] LABS: APPEARANCE, URINE CLEAR (CLEAR); BACTERIA, URINE AUTO NEGATIVE (NEGATIVE); BILIRUBIN, URINE AUTO NEGATIVE (NEGATIVE); BLOOD, URINE BLOOD NEGATIVE (NEGATIVE); COLOR, URINE YELLOW (YELLOW); GLUCOSE, URINE (UA) AUTO 1+ mg/dL (NEGATIVE); KETONE, URINE AUTO NEGATIVE (NEGATIVE); LEUKOCYTE ESTERASE, URINE AUTO NEGATIVE (NEGATIVE); NITRITE, URINE AUTO NEGATIVE (NEGATIVE); PROTEIN, URINE AUTO 3+ mg/dL (NEGATIVE); RBC, URINE AUTO 1 /HPF (0-3); SPECIFIC GRAVITY URINE AUTO 1.007 (1.002-1.035); SQUAMOUS EPITHELIAL CELL UR AU 1 /HPF (0-6); UROBILINOGEN, URINE AUTO 0.2 mg/dL (0.0-2.0); WBC, URINE AUTO 0 /HPF (0-3)
[2020-05-12] VITALS (7 sets, daily range): BP systolic 162–196; BP diastolic 70–98
[2020-05-12 00:16] LABS: AMPHETAMINES LEVEL URINE NEGATIVE (NEGATIVE); BARBITURATES URINE NEGATIVE (NEGATIVE); BENZODIAZEPINES URINE NEGATIVE (NEGATIVE); CANNABINOIDS URINE NEGATIVE (NEGATIVE); COCAINE METABOLITE URINE NEGATIVE (NEGATIVE); METHADONE URINE NEGATIVE (NEGATIVE); OPIATES URINE NEGATIVE (NEGATIVE); PHENCYCLIDINE URINE NEGATIVE (NEGATIVE)
[2020-05-12] MEDS: HEPARIN SOD (PORCINE) 5000UNITS/ML 1ML VIAL/SYRINGE SC SCH ×6 (00:34→20:54)
[2020-05-12] MEDS ORDERED: hydrALAZINE 20MG/ML 1ML VIAL (J0360 PER 20MG) IV PRN (00:45)
[2020-05-12] MEDS: CEFEPIME HCL 1 GM in D5W MINI-BAG PLUS 50 ML IV ONE (01:35)
[2020-05-12] MEDS ORDERED: DEXTROSE 50% 50 ML SYRINGE IV PRN (01:50)
[2020-05-12] MEDS ORDERED: GLUCOSE 4GM CHEW TABLET PO PRN (01:50)
[2020-05-12] MEDS ORDERED: GLUCAGON INJ 1MG VIAL SC PRN (01:50)
[2020-05-12] MEDS: amLODIPine 5 MG TAB PO SCH ×2 (04:02→20:46)
[2020-05-12] MEDS: ASPIRIN 81MG ENTERIC TABLET PO SCH ×2 (04:03→20:45)
[2020-05-12] MEDS ORDERED: VANCOMYCIN HCL 1,000 MG, VIAL MATE ADAPTER 1 EACH in NS 250 ML IV SCH (06:00)
[2020-05-12] MEDS ORDERED: LIDOCAINE 1% SDV 5ML VIAL SC PRN (07:50)
[2020-05-12] MEDS: DOCUSATE SODIUM 100MG CAPSULE PO SCH ×2 (09:33→20:45)
[2020-05-12] MEDS: (RENVELA) SEVELAMER **CARBONate** 800 MG TAB PO SCH ×2 (09:33→17:59)
[2020-05-12] MEDS: **hydrALAZINE** 50 MG TAB PO SCH ×3 (09:34→20:46)
[2020-05-12] MEDS: CARVedilol 12.5 MG TAB PO SCH ×2 (09:35→20:46)
[2020-05-12] MEDS: HumaLOG INSULIN (NovoLOG) PER UNIT SC SCH ×2 (09:37→11:45)
[2020-05-12 13:47] LABS: HEMATOCRIT 33.7 % (36.0-47.0); HEMOGLOBIN 10.2 g/dl (12.0-15.5); MEAN CORPUSCULAR HEMOGLOBIN 26.1 pg (27.0-33.0); MEAN CORPUSCULAR HGB CONC 30.3 g/dl (32.0-36.5); MEAN CORPUSCULAR VOLUME 86.2 fl (80.0-96.0); PLATELET COUNT, AUTOMATED 142 10^3/uL (150-450); RED BLOOD COUNT 3.91 10^6/uL (4.00-5.40); WHITE BLOOD COUNT 6.4 10^3/uL (4.0-10.0)
[2020-05-12 14:17] LABS: ALBUMIN 3.3 GM/DL (3.2-5.2); BILIRUBIN,TOTAL 0.4 MG/DL (0.2-1.0); CALCIUM LEVEL 9.9 MG/DL (8.8-10.2); CREATININE FOR GFR 6.39 MG/DL (0.55-1.30); GLOMERULAR FILTRATION RATE 8.2 (>39); MAGNESIUM LEVEL 2.3 MG/DL (1.8-2.4); POTASSIUM SERUM 4.1 MEQ/L (3.5-5.1); TOTAL PROTEIN 6.8 GM/DL (6.4-8.2)
[2020-05-12] MEDS ORDERED: VANCOMYCIN HCL 750 MG, VIAL MATE ADAPTER 1 EACH in NS 250 ML IV SCH (14:40)
[2020-05-12] MEDS ORDERED: **VANCO AFTER HD** MISC XX SCH (16:00)
--- NOTE | 2020-05-12 19:31 | IPNPDOC ---
Subjective Date Seen The patient was seen on 05/12/20. Subjective Chief Complaint/HPI Patient was awake and alert this morning. She recognized me from previous visits and greeted me by my name. She was having some problems with focussing and answering questions during Minimental scale. She initially said that she was at [facility] , then said [facility] at [facility]. She could not get the name of the hospital correct though got [facility] correct. She could not remember much of yesterday. Knows that she goes to HD at 11:30 on Monday and monday. Denied any specific complaints. Expressed anxiety that she may having dementia. Objective Physical Examination General Exam: Positive: Alert, Cooperative, No Acute Distress Eye Exam: Positive: PERRLA, EOMI, Other Eye Symptoms (eye lids and periorbital puffiness.); Negative: Sclera icteric ENT Exam: Positive: Atraumatic, Mucous membr. moist/pink, Pharynx Normal Neck Exam: Positive: Supple, JVD; Negative: thyromegaly Chest Exam: Positive: Normal air movement, Other (bilateral basal crackles) Heart Exam: Positive: Rate Normal, Regular Rhythm, Normal S1, Normal S2; Negative: Murmurs, Rubs Abdomen Exam: Positive: Normal bowel sounds, Soft; Negative: Tenderness, Hepatospenomegaly Female Exam: Negative: Lesions, Discharge, Odor, Tenderness Extremity Exam: Negative: Clubbing, Cyanosis, Edema Assessment /Plan Assessment 75-year-old female extensive medical history including ESRD on hemodialysis, HTN, cad, systolic and diastolic CHF,DM, was at [facility] for rehab for the past 2 weeks. She went to her HD center from [place] and after about 1 hour of HD she was noted to be confused and disoriented so sent to the ED for altered mental status. This is her 4th admission for AMS when she became confused at HD unit. As per she has been having memory issues at home for the past several months when she would forget her medications, beginning to do something then forget what she was doing, loose tract on conversations and start talking about something else, having difficulty in focusing and often staring into space during conversations most noticeable during the past [address] chest showed some possible infiltrates in both the lower chest. She was admitted for AMS and possible pneumonia AMS Acute metabolic encephalopathy vs dementia with delirium. Patient does not have any infection, No Uremia, TSH ok. Utox negative, normal ammonia, no hypoglycemia. She did have some hypertensive urgency when she came in so could be metabolic encephalopathy from Hypertensive urgency MRI brain in mar 2020 showed advanced chronic microangiopathic ischemic changes. I believe she has early dementia with episodes of delirium In minimental scale she scored 17/30. she could not subtract 7 from 100, she failed in sort term recall of 3 things, could not copy diagram, could not write a sentence. Also she was getting the name of the hospital wrong once told me she [facility], corrected it to [facility] but still the wrong name. Surprisingly she recognized me by name. (I have seen her several times in several prior admissions.) Will redo it tomorrow after HD and better BP control. Pneumonia ruled out She has Bilateral Bronchiectasis with b/l calcified granulomas with mediastinal lymphadenopathy and chronic fibrosis and infiltrates of both the lower lobes left > right stable since 2013 now infiltrates look work due to CHF exacerbation. will stop antibiotics. Acute on chronic Systolic and diastolic CHF/Ischemic cardiomyopathy Last EF of 40% with grade 2 diastolic dysfunction in mar 2020 CT chest with bilateral infiltrates suggestive if fluid overload HD today. ESRD on HD since feb 2015 continue HD as per nephrology. It seems patient has been loosing weight. Likely needs adjustment of dry weight. Anemia of chronic disease hh at goal. Weakness/ Debility / Spinal stenosis s/p lumbar laminectomy at L2, L3, L4 at [facility] in Jan 2018 patient is currently at [facility] for the past 3 weeks will be dced to rehab. HTN with hypertensive urgency on admission Continue home medications Amlodipine, Carvedilol, Hydralazine CAD s/p CABG c/w ASA and pravastatin hx CVA with right sided weakness. c/w ASA and pravastatin H/o DM Sugars well controlled without medications or insulin. last A1c was 6.8. will likely not need any medications. Sleep disordered breathing in nocturnal pulse oximetry Chronic thrombocytopenia. stable form 2019. Plan/VTE VTE Prophylaxis Ordered?: Yes VS, I&O, 24H, Fishbone Vital Signs/I&O Vital Signs Date Time Temp Pulse Resp B/P (MAP) Pulse Ox O2 Delivery O2 Flow Rate FiO2 05/12/20 17:59 174/73 05/12/20 17:35 96.7 75 21 95 Room Air 05/12/20 08:00 2.0 I&O- Last 24 Hours up to 6 AM 05/12/20 07:00 Intake Total 340 ml Balance 340 ml Laboratory Data 24H LABS Laboratory Tests 2 05/11/20 23:41: Urine Color YELLOW, Urine Appearance CLEAR, Urine pH 8.0, Urine Specific [place] 1.007, Urine Protein 3+H, Urine Glucose (Auto)(UA) 1+H, Urine Ketones (Auto) NEG ATIVE, Urine Blood NEGATIVE, Urine Nitrite NEGATIVE, Urine Bilirubin NEGATIVE, Urine Urobilinogen 0.2, Urine Leukocyte Esterase (Auto) NEGATIVE, Urine WBC (Auto) 0, Urine RBC (Auto) 1, Urine Hyaline Casts (Auto) 0, Urine Bacteria (Auto) NEGATIVE, Urine Squamous Epithelial Cells 1, Urine Sperm (Auto) 05/12/20 00:20: Methicillin-Resist S.aureus DNA PCR NOT DETECTED 05/12/20 01:26: Procalcitonin 0.33 05/12/20 06:38: Bedside Glucose (Misc Panel) 147H 05/12/20 11:33: Bedside Glucose (Misc Panel) 81L 05/12/20 13:30: Nucleated Red Blood Cells % (auto) 0.0, Anion Gap 7L, Glomerular Filtration Rate 8.2L, Calcium Level 9.9, Magnesium Level 2.3, Total Bilirubin 0.4, Aspartate Amino Transf (AST/SGOT) 17, Alanine Aminotransferase (ALT/SGPT) 21, Alkaline Phosphatase 70, Total Protein 6.8#, Albumin 3.3#, Albumin/Globulin Ratio 0.9L, Random Vancomycin Level 19.8 CBC/BMP Laboratory Tests 05/12/20 13:30 Microbiology Microbiology 05/12/20 Blood Culture, Received Pending 05/12/20 Blood Culture, Received Pending ERIKA LAWSON MD May 12, 2020 19:31
[2020-05-12] MEDS ORDERED: PRAVASTATIN 20 MG TAB PO SCH (21:00)
[2020-05-12] MEDS ORDERED: HumaLOG INSULIN (NovoLOG) PER UNIT SC SCH (21:00)
[2020-05-12] MEDS ORDERED: CEFEPIME HCL 1 GM in D5W MINI-BAG PLUS 50 ML IV SCH (21:00)
[2020-05-13] VITALS: BP 167/70
--- NOTE | 2020-05-13 01:44 | CR ---
"INPATIENT CONSULTATION DATE: 05/12/2020 REQUESTING PHYSICIAN: Jon Shook M.D. REASON FOR CONSULTATION: Management of end-stage renal disease and hemodialysis. CHIEF COMPLAINT: Patient was sent to the Emergency Room from dialysis center because of confusion and altered mentation. HISTORY OF PRESENT ILLNESS: Bree Acosta is a 75-year-old female with past medical history of end-stage renal disease and hemodialysis every Monday, Monday, Monday, history of ischemic cardiomyopathy, chronic systolic and diastolic congestive heart failure, history of CVA with residual right-sided hemiparesis, multiple other comorbidities as mentioned below. She came in for dialysis yesterday. She was confused and obtunded. She was dialyzed according to her regular schedule and half a liter of fluid was removed, however after dialysis, she was sent to the Emergency Room for further evaluation. In the Emergency Room, the patient was found to have elevated blood pressures. She got the chest imaging done, which showed bilateral infiltrates suspicious for fluid versus pneumonia. Patient was admitted under the hospitalist service. Nephrology service was called for further help in the management of this patient. I saw and evaluated the patient today morning at the bedside. She was able to provide me with some of the history. Most of the history was obtained from the patient's chart. PAST MEDICAL HISTORY: End-stage renal disease on hemodialysis every Monday, Monday, Monday, coronary artery disease; status post CABG, ischemic cardiomyopathy, history of chronic systolic and diastolic congestive heart failure, LV ejection fraction around 40% on latest echo, history of CVA with residual right-sided hemiparesis and slurred speech, hypertension, diabetes mellitus type 2 insulin dependent, hyperlipidemia, |spinal stenosis; status post lumbar laminectomy, anemia and end-stage renal disease, bronchiectasis and calcified granulomas on imaging with mediastinal lymphadenopathy, chronic back pain, disability and she uses walker. PAST SURGICAL HISTORY: Status post hysterectomy, status post CABG, status post lumbar laminectomy in January 2008, fistulogram and dilatation of the AV fistulas in the past. ALLERGIES: She is allergic to statins. FAMILY HISTORY: No significant family history of cancers. Mother had coronary artery disease and end-stage renal disease. SOCIAL HISTORY: Patient lives at home. Recently she was transferred to rehab after admission to the hospital. She is an ex-smoker. She denies any illicit drug abuse. REVIEW OF SYSTEMS: Constitutional: She denies any fevers or chills. She was unable to provide any reliable review of systems at this time because she is obtunded. PHYSICAL EXAMINATION: VITAL SIGNS: Temperature 97.2 degrees Fahrenheit, blood pressure 196/84, pulse 82, respiratory rate 20, saturating 96% on room air. HEAD AND NECK: Extraocular muscles intact. Pupils equally round and reactive to light. Mucous membranes are moist. Neck is supple. Mildly elevated JVD. CARDIOVASCULAR: S1, S2, regular rate. No edema of the bilateral lower extremities. RESPIRATORY: Mildly decreased breath sounds at the bases with mild inspiratory crackles. ABDOMEN: Soft, positive bowel sounds, nontender, no organomegaly. MUSCULOSKELETAL: No clubbing or cyanosis. Pulses are 2+. 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 Otherwise, she follows commands and moves extremities. LABORATORY REVIEW: CBC showed WBC 6.4, hemoglobin 10.2, platelets 142,000. Urinalysis showed 3+ protein, negative nitrates. BMP showed sodium 138, potassium 4.1, chloride 100, bicarb 31, BUN 40, creatinine 6.3. Procalcitonin 0.33. TSH 4.3. Toxicology is negative. IMAGING: A CT chest was done yesterday, which showed small bilateral pleural effusions; left greater than right, cardiomegaly, bilateral pulmonary parenchymal infiltrate more pronounced in the lung bases. Finding consistent with multifocal pneumonitis versus atypical CHF. CURRENT INPATIENT MEDICATIONS: Patient's medications were all reviewed by myself. She was started on I.V. Vancomycin and Cefepime, which has been stopped now. She is on Amlodipine 5 mg p.o. daily, aspirin 81 mg daily, Coreg 12.5 mg p.o. twice a day, Colace 100 mg p.o. twice a day, Heparin subcutaneously, Hydralazine 50 mg p.o. three times a day, Milk of Magnesia p.r.n., Renvela 800 mg p.o. b.i.d. ASSESSMENT AND PLAN: 1. End-stage renal disease: Patient was dialyzed yesterday, but clinically she looks volume overloaded. She will be dialyzed again and we should try to remove at least 3 liters of fluid as tolerated by her blood pressure. 2. Anemia and end-stage renal disease: Hemoglobin level is 10.2. She will be started on Aranesp with dialysis on next session. 3. Hypertension with hypertensive heart disease: Continue Amlodipine and Coreg with Hydralazine. Patient is noncompliant with medications as an outpatient. 4. Chronic kidney disease/mineral bone disease: Continue current dose of Renvela 800 mg p.o. with meals. 5. Diabetes mellitus type 2 insulin dependent: Patient was on insulin sliding scale, which has been held because of hypoglycemia. 6. Coronary artery disease status post CABG: Continue current dose of aspirin. Statin is being held because of statin allergy being listed in her history. 7. Chronic combined systolic and diastolic congestive heart failure: Patient is clinically volume overloaded. Ultrafiltration being done with dialysis and at least 3 liters of fluid will be removed. Thank you for involving me in the care of this patient. I shall be happy to follow the patient along with you tomorrow morning."
[2020-05-13 04:00] VITALS: BP 130/80
[2020-05-13 06:34] LABS: VANCOMYCIN RANDOM 24.7 UG/ML
[2020-05-13 07:12] LABS: HEMOGLOBIN A1c 6.4 %
[2020-05-13 08:00] VITALS: BP 156/70
[2020-05-13] MEDS: (RENVELA) SEVELAMER **CARBONate** 800 MG TAB PO SCH ×2 (08:00→17:35)
[2020-05-13 08:40] LABS: CALCIUM LEVEL 9.6 MG/DL (8.8-10.2); CREATININE FOR GFR 4.35 MG/DL (0.55-1.30); GLOMERULAR FILTRATION RATE 12.8 (>39)
[2020-05-13] MEDS: HEPARIN SOD (PORCINE) 5000UNITS/ML 1ML VIAL/SYRINGE SC SCH ×2 (08:50→20:48)
[2020-05-13] MEDS: CARVedilol 12.5 MG TAB PO SCH ×3 (09:00→20:43)
[2020-05-13] MEDS: **hydrALAZINE** 50 MG TAB PO SCH ×4 (09:00→20:42)
[2020-05-13] MEDS: DOCUSATE SODIUM 100MG CAPSULE PO SCH ×3 (09:00→20:42)
--- NOTE | 2020-05-13 12:58 | IPNPDOC ---
Subjective Date Seen The patient was seen on 05/13/20. Subjective Chief Complaint/HPI This am patient refused to talk. She was awake with eyes open but would not make eye contact or talk. She had HD yesterday with removal of 3 L of fluid. Objective Physical Examination General Exam: Positive: Alert, Cooperative, No Acute Distress Eye Exam: Positive: PERRLA, EOMI, Other Eye Symptoms (eye lids and periorbital puffiness.); Negative: Sclera icteric ENT Exam: Positive: Atraumatic, Mucous membr. moist/pink, Pharynx Normal Neck Exam: Positive: Supple, JVD; Negative: thyromegaly Chest Exam: Positive: Normal air movement, Other (bilateral basal crackles) Heart Exam: Positive: Rate Normal, Regular Rhythm, Normal S1, Normal S2; Negative: Murmurs, Rubs Abdomen Exam: Positive: Normal bowel sounds, Soft; Negative: Tenderness, Hepatospenomegaly Female Exam: Negative: Lesions, Discharge, Odor, Tenderness Extremity Exam: Negative: Clubbing, Cyanosis, Edema Assessment /Plan Assessment 75-year-old female extensive medical history including ESRD on hemodialysis, HTN , cad, systolic and diastolic CHF,DM, was at [facility] for rehab for the past 2 weeks. She went to her HD center from [facility] and after about 1 hour of HD she was noted to be confused and disoriented so sent to the ED for altered mental status. This is her 4th admission for AMS when she became confused at HD unit. As per she has been having memory issues at home for the past several months when she would forget her medications, beginning to do something then forget what she was doing, loose tract on conversations and start talking about something else, having difficulty in focusing and often staring into space during conversations most noticeable during the past [address] chest showed some possible infiltrates in both the lower chest. She was admitted for AMS and possible pneumonia Possible Acute metabolic encephalopathy on the background of dementia vs Delirium with dementia. Patient does not have any infection, No Uremia, TSH ok. Utox negative, normal ammonia, no hypoglycemia. She did have some hypertensive urgency when she came in so could be metabolic encephalopathy from Hypertensive urgency MRI brain in mar 2020 showed advanced chronic microangiopathic ischemic changes. I believe she has early dementia with episodes of delirium In minimental scale she scored 17/30. she could not subtract 7 from 100, she failed in sort term recall of 3 things, could not copy diagram, could not write a sentence. Also she was getting the name of the hospital wrong once told me she was in [facility] in [facility], corrected it to [facility] but still the wrong name. Surprisingly she recognized me by name. (I have seen her several times in several prior admissions.) today she did not talk to me. referral to Neurology as outpatient. Delirium with dementia vs depression from chronic medical issues and dementia often she stares into space not talking not answering questions would not take meds, would not follow command. then after 1 to 2 hours will snap out of it and talk and take her meds. Pneumonia ruled out She has Bilateral Bronchiectasis with b/l calcified granulomas with mediastinal lymphadenopathy and chronic fibrosis and infiltrates of both the lower lobes left > right stable since 2013 now infiltrates look work due to CHF exacerbation. stopped antibiotics. Acute on chronic Systolic and diastolic CHF/Ischemic cardiomyopathy Last EF of 40% with grade 2 diastolic dysfunction in mar 2020 CT chest with bilateral infiltrates suggestive if fluid overload fluid management by HD. ESRD on HD since feb 2015 continue HD as per nephrology. It seems patient has been loosing weight from poor oral intake. Likely needs adjustment of dry weight. Anemia of chronic disease hh at goal. Weakness/ Debility / Spinal stenosis s/p lumbar laminectomy at L2, L3, L4 at [facility] in Jan 2018 patient is currently at [facility] for the past 3 weeks will be dced to rehab. HTN with hypertensive urgency on admission Continue home medications Amlodipine, Carvedilol, Hydralazine CAD s/p CABG c/w ASA and pravastatin hx CVA with right sided weakness. c/w ASA and pravastatin H/o DM Sugars well controlled without medications or insulin. last A1c was 6.4. does not need any medications at this time. diet controlled. Sleep disordered breathing in nocturnal pulse oximetry Chronic thrombocytopenia. stable form 2019. Plan/VTE VTE Prophylaxis Ordered?: Yes VS, I&O, 24H, Fishbone Vital Signs/I&O Vital Signs Date Time Temp Pulse Resp B/P (MAP) Pulse Ox O2 Delivery O2 Flow Rate FiO2 05/13/20 09:28 156/70 05/13/20 09:28 79 05/13/20 08:00 97.6 17 100 Room Air 05/12/20 08:00 2.0 I&O- Last 24 Hours up to 6 AM 05/13/20 06:00 Intake Total 635 ml Output Total 3000 ml Balance -2365 ml Laboratory Data 24H LABS Laboratory Tests 2 05/12/20 13:30: Nucleated Red Blood Cells % (auto) 0.0, Anion Gap 7L, Glomerular Filtration Rate 8.2L, Calcium Level 9.9, Magnesium Level 2.3, Total Bilirubin 0.4, Aspartate Amino Transf (AST/SGOT) 17, Alanine Aminotransferase (ALT/SGPT) 21, Alkaline Phosphatase 70, Total Protein 6.8#, Albumin 3.3#, Albumin/Globulin Ratio 0.9L, Random Vancomycin Level 19.8 05/12/20 18:36: Bedside Glucose (Misc Panel) 108 05/13/20 05:23: Anion Gap 9, Glomerular Filtration Rate 12.8L, Calcium Level 9.6, Random Vancomycin Level 24.7, Estimated Mean Plasma Glucose 137H, Hemoglobin A1c 6.4, Phosphorus Level 4.0 05/13/20 08:42: Bedside Glucose (Misc Panel) 104 CBC/BMP Laboratory Tests 05/12/20 13:30 05/13/20 05:23 Microbiology Microbiology 05/12/20 Blood Culture - Preliminary, Resulted No growth after 24 hours . All specim... 05/12/20 Blood Culture - Preliminary, Resulted No growth after 24 hours . All specim... ERIKA LAWSON MD May 13, 2020 12:58
[2020-05-13 16:00] VITALS: BP 143/64
[2020-05-13 20:00] VITALS: BP 173/68
[2020-05-13] MEDS: ASPIRIN 81MG ENTERIC TABLET PO SCH (20:41)
[2020-05-13 20:43] VITALS: BP 173/68
[2020-05-13] MEDS: amLODIPine 5 MG TAB PO SCH (20:43)
[2020-05-13] MEDS ORDERED: CEFEPIME HCL 1 GM in D5W MINI-BAG PLUS 50 ML IV ONE (23:00)
--- NOTE | 2020-05-14 01:47 | IPN ---
NEPHROLOGY PROGRESS NOTE DATE: 05/13/2020 SUBJECTIVE: Patient was seen and examined at the bedside today morning. Patient was trying to eat her breakfast. She is slightly confused. Today is her regular day of dialysis, however, she was already dialyzed yesterday and 3 liter of fluid was removed. OBJECTIVE: VITAL SIGNS: Temperature 98.4 degrees Fahrenheit, blood pressure 173/68, pulse 80, respiratory rate 19, saturating 99% on room air. INTAKE AND OUTPUT: There is no urine output recorded. Ultrafiltration with hemodialysis was 3 liters. Weight in the bed scale is 62.8 kg. PHYSICAL EXAMINATION: GENERAL: Patient is awake, alert, oriented x2, lying in bed in no apparent distress. HEAD AND NECK: Extraocular muscles intact. Pupils equally round and reactive to light. Mucous membranes are moist. Neck is supple. There is no JVD. CARDIOVASCULAR: S1, S2, regular rate. No edema of the bilateral lower extremities. RESPIRATORY: Mildly decreased breath sounds at the bases. Otherwise, no active rales or rhonchi. ABDOMEN: Soft, positive bowel sounds, nontender. No organomegaly. MUSCULOSKELETAL: No clubbing or cyanosis. Pulses are 2+. 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 Power is 5/5 in all extremities. LABORATORY REVIEW: CBC showed WBC 6.4, hemoglobin 10.2, platelets 142,000. BMP showed sodium 137, potassium 4, chloride 99, bicarb 29, BUN 22, creatinine 4.3. MICROBIOLOGY: Blood cultures are negative so far. CURRENT INPATIENT MEDICATIONS: Patient's medications were all reviewed by myself. I ordered one dose of I.V. antibiotics for pneumonitis on the imaging. No other significant change in the medications today. ASSESSMENT AND PLAN: 1. End-stage renal disease: Today is patient's regular day of dialysis, however, she will be dialyzed tomorrow morning because she was already dialyzed yesterday. 2. Pneumonitis on the CT chest and altered mental status: Patient will be given a dose of I.V. antibiotics. Blood cultures are negative so far. 3. Hypertension with hypertensive heart disease: Continue Amlodipine, Coreg and Hydralazine. Blood pressure will get further improved after ultrafiltration. 4. Coronary artery disease; status post CABG: Continue aspirin. Statin is being held. 5. Chronic combined systolic and diastolic congestive heart failure: 3 liters of fluid was removed yesterday, further fluid removal will be done tomorrow morning.
[2020-05-14 06:00] VITALS: BP 124/54
[2020-05-14] MEDS ORDERED: LIDOCAINE 1% SDV 5ML VIAL SC PRN (06:00)
[2020-05-14] MEDS: (RENVELA) SEVELAMER **CARBONate** 800 MG TAB PO SCH ×2 (08:00→08:05)
[2020-05-14] MEDS: CARVedilol 12.5 MG TAB PO SCH ×2 (08:05→08:09)
[2020-05-14] MEDS: HEPARIN SOD (PORCINE) 5000UNITS/ML 1ML VIAL/SYRINGE SC SCH ×2 (08:06→08:10)
[2020-05-14] MEDS: **hydrALAZINE** 50 MG TAB PO SCH ×3 (08:06→16:00)
[2020-05-14] MEDS: DOCUSATE SODIUM 100MG CAPSULE PO SCH ×2 (08:06→08:09)
--- NOTE | 2020-05-14 12:31 | DS.PDOC ---
Discharge Summary General Date of Admission May 11, 2020 at 22:12 Date of Discharge 05/14/20 Discharge Summary PROCEDURES PERFORMED DURING STAY: [None]. DISCHARGE DIAGNOSES: Acute delirium on the background of Dementia. Acute metabolic encephalopathy due to CHF exacerbation on the back ground of Dementia. Vascular Dementia Depression Acute on chronic Systolic and diastolic CHF/Ischemic cardiomyopathy Hypertensive urgency. SECONDARY DIAGNOSIS: ESRD Hypertension Diabetes now diet controlled. Bilateral Bronchiectasis with b/l calcified granulomas with mediastinal lymphadenopathy and chronic fibrosis and infiltrates of both the lower lobes left > right stable since 2013 Anemia of chronic disease Weakness/ Debility / Spinal stenosis s/p lumbar laminectomy at L2, L3, L4 at [facility] in Jan 2018 H/O CVA with right sided weakness CAD s/p CABG Chronic thrombocytopenia sleep disordered breathing. COMPLICATIONS/CHIEF COMPLAINT: Dialysis Complication,Esrd,Pleural Effusion,Pneumo. HOSPITAL COURSE: 75-year-old female extensive medical history including ESRD on hemodialysis, HTN, cad, systolic and diastolic CHF,DM, was at [facility] for rehab for the past 2 weeks. She went to her HD center from [place] and after about 1 hour of HD she was noted to be confused and disoriented so sent to the ED for altered mental status. This is her 4th admission for AMS when she became confused at HD unit. As per she has been having memory issues at home for the past several months when she would forget her medications, beginning to do something then forget what she was doing, loose tract on conversations and start talking about something else, having difficulty in focusing and often staring into space during conversations most noticeable during the past [address] chest showed some possible infiltrates in both the lower chest. She was admitted for AMS and possible pneumonia Possible Acute metabolic encephalopathy on the background of dementia vs Delirium with dementia. Patient does not have any infection, No Uremia, TSH ok. Utox negative, normal ammonia, no hypoglycemia. She did have some hypertensive urgency when she came in so could be metabolic encephalopathy from Hypertensive urgency MRI brain in mar 2020 showed advanced chronic microangiopathic ischemic changes. I believe she has early dementia with episodes of delirium In minimental scale she scored 17/30. she could not subtract 7 from 100, she failed in short term recall of 3 things, could not copy diagram, could not write a sentence. Also she was getting the name of the hospital wrong once told me she was in [facility], corrected it to [facility] but still the wrong name. Surprisingly she recognized me by name. (I have seen her several times in several prior admissions.) referral to Neurology as outpatient. Delirium with dementia vs depression from chronic medical issues with dementia often she stares into space not talking not answering questions would not take meds, would not follow command. then after 1 to 2 hours will snap out of it and talk and take her meds. Pneumonia ruled out She has Bilateral Bronchiectasis with b/l calcified granulomas with mediastinal lymphadenopathy and chronic fibrosis and infiltrates of both the lower lobes left > right stable since 2013 now infiltrates look work due to CHF exacerbation. stopped antibiotics. Acute on chronic Systolic and diastolic CHF/Ischemic cardiomyopathy Last EF of 40% with grade 2 diastolic dysfunction in mar 2020 CT chest with bilateral infiltrates suggestive if fluid overload fluid management by HD. ESRD on HD since feb 2015 continue HD as per nephrology. It seems patient has been loosing weight from poor oral intake. Likely needs adjustment of dry weight. Anemia of chronic disease hh at goal. Weakness/ Debility / Spinal stenosis s/p lumbar laminectomy at L2, L3, L4 at [facility] in Jan 2018 patient is currently at [facility] for the past 3 weeks will be dced to rehab. HTN with hypertensive urgency on admission Continue home medications Amlodipine, Carvedilol, Hydralazine CAD s/p CABG c/w ASA and pravastatin hx CVA with right sided weakness. c/w ASA and pravastatin H/o DM Sugars well controlled without medications or insulin. last A1c was 6.4. does not need any medications at this time. diet controlled. Sleep disordered breathing in nocturnal pulse oximetry Chronic thrombocytopenia. stable form 2019. DISCHARGE MEDICATIONS: Please see below. ALLERGIES: Please see below. PHYSICAL EXAMINATION ON DISCHARGE: VITAL SIGNS: Please see below. General Exam: Positive: Alert, Cooperative, No Acute Distress Eye Exam: Positive: PERRLA, EOMI, Other Eye Symptoms (eye lids and periorbital puffiness.); Negative: Sclera icteric ENT Exam: Positive: Atraumatic, Mucous membr. moist/pink, Pharynx Normal Neck Exam: Positive: Supple, JVD; Negative: thyromegaly Chest Exam: Positive: Normal air movement, Other (bilateral basal crackles) Heart Exam: Positive: Rate Normal, Regular Rhythm, Normal S1, Normal S2; Negative: Murmurs, Rubs Abdomen Exam: Positive: Normal bowel sounds, Soft; Negative: Tenderness, Hepatosplenomegaly Female Exam: Negative: Lesions, Discharge, Odor, Tenderness Extremity Exam: Negative: Clubbing, Cyanosis, Edema LABORATORY DATA: Please see below. IMAGING: Lungs: Calcified granulomas right upper lobe, lingular lobe, and both lower lobes. Bilateral pulmonary parenchymal infiltrates most pronounced at the lung bases. Findings consistent with multifocal pneumonitis versus atypical CHF. Pleural spaces: Small bilateral pleural effusions, left greater than right. Heart: Cardiomegaly. There is severe atherosclerotic calcification of the coronary arteries. Status post CABG. Aorta: Unremarkable. No aortic aneurysm. Veins: Stent demonstrated in the innominate vein. Lymph nodes: Multiple mediastinal lymph nodes likely postinflammatory/infectious. Bones/joints: Unremarkable. No acute fracture. Soft tissues: Unremarkable. IMPRESSION: 1. Small bilateral pleural effusions, left greater than right. 2. Cardiomegaly. 3. Bilateral pulmonary parenchymal infiltrates most pronounced at the lung bases. Findings consistent with multifocal pneumonitis versus atypical CHF. 4. Multiple mediastinal lymph nodes likely postinflammatory/infectious. 5. Findings consistent with remote intrathoracic granulomatous infection. ACTIVITY: [As tolerated]. DIET: Carb consistent DISCHARGE PLAN: [facility] DISPOSITION: . DISCHARGE INSTRUCTIONS: Referral to Neurology in 2 to 3 weeks Follow up with MD in [place]. DISCHARGE CONDITION: [Stable]. TIME SPENT ON DISCHARGE: 35 minutes. Vital Signs/I&Os Vital Signs Date Time Temp Pulse Resp B/P (MAP) Pulse Ox O2 Delivery O2 Flow Rate FiO2 05/14/20 06:00 97.2 80 17 124/54 (77) 99 Room Air 05/12/20 08:00 2.0 I&O- Last 24 Hours up to 6 AM 05/14/20 06:00 Intake Total 160 ml Output Total 0 ml Balance 160 ml Laboratory Data Labs 24H Laboratory Tests 2 05/13/20 16:09: Bedside Glucose (Misc Panel) 151H FSBS Laboratory Tests Test 05/13/20 16:09 Range/Units Bedside Glucose (Misc Panel) 151 83-110 MG/DL Microbiology Microbiology 05/12/20 Blood Culture - Preliminary, Resulted No Growth after 48 hours. All Specime... 05/12/20 Blood Culture - Preliminary, Resulted No Growth after 48 hours. All Specime... Discharge Medications Scheduled Amlodipine Besylate (Amlodipine Besylate) 5 Mg Tablet, 5 MG PO QHS, (Reported) Aspirin (Aspirin EC) 81 Mg Tablet.dr, 81 MG PO QHS, (Reported) Calcium Carbonate (Calcium Carbonate) 600 Mg Tablet, 600 MG PO QHS, (Reported) Carvedilol (Carvedilol) 12.5 Mg Tablet, 12.5 MG PO BID, (Reported) Denosumab Injection (Prolia) 60 Mg/1 Ml Syringe, 60 MG SC ASDIRECTED, (Reported) EVERY SIX MONTHS; SUPPOSED TO TAKE IN JANUARY BUT UNABLE. LAST DOSE WAS JULY 2019. Hydralazine HCl (Hydralazine HCl) 50 Mg Tablet, 50 MG PO TID, (Reported) Lidocaine/Prilocaine (Lidocaine-Prilocaine Cream) 2.5%/2.5% Cream..g., 1 APLCT TOP 3XW, (Reported) MONDAY, MONDAY AND MONDAY PRIOR TO DIALYSIS Multivitamins (Thera M Plus Tablet) 1 Each Tablet, 1 TAB PO QHS, (Reported) Pravastatin Sodium (Pravastatin Sodium) 80 Mg Tablet, 80 MG PO QHS, (Reported) Sevelamer Carbonate (Sevelamer Carbonate) 800 Mg Tablet, 800 MG PO BIDWM, (Reported) Ubidecarenone (Coenzyme Q10) 100 Mg Tablet, 100 MG PO QHS, (Reported) Scheduled PRN Docusate Sodium (Docusate Sodium) 100 Mg Capsule, 100 MG PO DAILY PRN for CONSTIPATION, (Reported) Allergies Coded Allergies: [id number] Reductase Inhibitor (Verified Adverse Reaction, Unknown, PAIN, 05/11/20) PT SAYS SHE CAN TAKE PRAVASTATIN ERIKA LAWSON MD May 14, 2020 12:31
[2020-05-14 14:00] VITALS: BP 129/54
--- NOTE | 2020-05-15 09:12 | IPN ---
PROGRESS NOTE DATE: 05/14/2020 SUBJECTIVE: Patient was seen and examined at the bedside today morning during hemodialysis procedure. She is tolerating the hemodialysis procedure well. She denies any active complaints at this time. OBJECTIVE: Vital signs: Temperature is 97.4 degrees Fahrenheit, blood pressure 129/54, pulse is 78, respiratory rate of 18, saturating 99% on room air. Intake and output: Urine output is not recorded. Weight in the bed scale was 62.8 kg yesterday. PHYSICAL EXAMINATION: GENERAL: Patient is awake, alert, oriented times two , lying in bed getting hemodialysis done. HEAD AND NECK: Extraocular muscles are intact. Pupils equally round and reactive to light. Mucous membranes are moist. Neck is supple. There is no jugular venous distention (JVD). CARDIOVASCULAR: S1, S2, regular rate. No edema of the bilateral lower extremities. RESPIRATORY: Mildly decreased breath sounds at the bases with mild inspiratory crackles. Otherwise, no active rales or rhonchi. ABDOMEN: Soft. Positive bowel sounds. Nontender. No organomegaly. MUSCULOSKELETAL: No clubbing or cyanosis. Pulses are 2+. CENTRAL NERVOUS SYSTEM: No focal deficit. Power is 5/5 in all extremities. LABORATORY REVIEW: CBC is from yesterday with a hemoglobin of 10.2. BMP was also done yesterday with a potassium of 4. CURRENT INPATIENT MEDICATIONS: Patient's medications were all reviewed by myself. No significant change in medications today as compared with yesterday. ASSESSMENT AND PLAN: 1. End-stage renal disease. Patient's regular dialysis days are Monday, Monday, Monday; however, in the hospital she is being dialyzed according to Monday, , Monday schedule. Today she is being dialyzed. Ultrafiltration goal is around 2 kg as tolerated by her blood pressure. 2. Pneumonitis on CT chest. Most likely it related to fluid. Patient was given an empiric dose of intravenous (IV) cefepime. Chest x-ray to be done after dialysis. 3. Hypertension with hypertensive heart disease. Continue Coreg, hydralazine, and amlodipine. 4. Chronic combined systolic and diastolic congestive heart failure. Volume status is better optimized now. ____ will be changed at dialysis center.
[2020-05-15 14:09] LABS: CHLAMYDIA PNEUMONIAE IgM <1:10 (Neg:<1:10); MYCOPLASMA PNEUMONIAE IgG 261 U/mL (0-99); MYCOPLASMA PNEUMONIAE IgM <770 U/mL (0-769)
== END 2020-05-14 17:05 | DRG 291 ==
LOC: M ED 15:58 → EDBD 15:58 → M ED INP 22:12 → ENRESERV 22:52 → M PCU 23:57 → M MS5PR 05-13 22:30
PROVIDERS: ADMIT Family Medicine; ATTEND Internal Medicine Nephrology
PROC: 5A1D70Z Performance of Urinary Filtration, Intermittent, Less than 6 Hours Per Day (ICD-10-PCS; principal; 2020-05-12)
DX: I13.2 Hypertensive heart and chronic kidney disease with heart failure and with stage 5 chronic kidney disease, or end stage renal disease (principal); N18.6 End stage renal disease; I50.43 Acute on chronic combined systolic (congestive) and diastolic (congestive) heart failure; G93.41 Metabolic encephalopathy; I69.351 Hemiplegia and hemiparesis following cerebral infarction affecting right dominant side; I25.10 Atherosclerotic heart disease of native coronary artery without angina pectoris; E11.22 Type 2 diabetes mellitus with diabetic chronic kidney disease; I25.5 Ischemic cardiomyopathy; I69.328 Other speech and language deficits following cerebral infarction; E78.5 Hyperlipidemia, unspecified; D63.1 Anemia in chronic kidney disease; M81.0 Age-related osteoporosis without current pathological fracture; R53.81 Other malaise; F01.50 Vascular dementia, unspecified severity, without behavioral disturbance, psychotic disturbance, mood disturbance, and anxiety; I16.0 Hypertensive urgency; D69.6 Thrombocytopenia, unspecified; Z99.2 Dependence on renal dialysis; Z20.822 Contact with and (suspected) exposure to COVID-19; Z87.891 Personal history of nicotine dependence; Z79.82 Long term (current) use of aspirin; Z79.4 Long term (current) use of insulin; Z79.899 Other long term (current) drug therapy; Z88.8 Allergy status to other drugs, medicaments and biological substances; Z95.1 Presence of aortocoronary bypass graft

== ENCOUNTER 2020-05-15 12:15 | Emergency (ER) | payer MEDICARE, BC ==
[2020-05-15 13:58] LABS: BASO % 0.5 % (0.0-1.0); EOS % 0.5 % (0.0-3.0); HEMOGLOBIN 11.7 g/dl (12.0-15.5); LYMPH # 0.9 10^3/uL (1.5-5.0); LYMPH % 14.9 % (24.0-44.0); MEAN CORPUSCULAR HEMOGLOBIN 25.9 pg (27.0-33.0); MEAN CORPUSCULAR HGB CONC 29.3 g/dl (32.0-36.5); MEAN CORPUSCULAR VOLUME 88.5 fl (80.0-96.0); MONO # 0.7 10^3/uL (0.0-0.8); MONO % 12.4 % (2.0-8.0); NEUTROPHILS # 4.3 10^3/uL (1.5-8.5); NEUTROPHILS % 71.4 % (36.0-66.0); PLATELET COUNT, AUTOMATED 146 10^3/uL (150-450); RED BLOOD COUNT 4.52 10^6/uL (4.00-5.40)
[2020-05-15 14:33] LABS: ALBUMIN 3.6 GM/DL (3.2-5.2); BILIRUBIN,DIRECT 0.1 MG/DL (0.0-0.2); BILIRUBIN,TOTAL 0.3 MG/DL (0.2-1.0); CREATININE FOR GFR 6.94 MG/DL (0.55-1.30); GLOMERULAR FILTRATION RATE 7.5 (>39); POTASSIUM SERUM 4.6 MEQ/L (3.5-5.1); THYROID STIMULATING HORMONE 1.88 uIU/ML (0.358-3.740); TOTAL PROTEIN 7.6 GM/DL (6.4-8.2)
[2020-05-15 15:47] VITALS: BP 156/74
--- NOTE | 2020-05-17 08:03 | ECGEPIP ---
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
== END 2020-05-15 16:15 | disposition home or self-care (01) ==
LOC: M ED 12:15 → EDBD 12:15 → M ED 16:15
DX: F03.90 Unspecified dementia, unspecified severity, without behavioral disturbance, psychotic disturbance, mood disturbance, and anxiety (principal); I10 Essential (primary) hypertension; K21.9 Gastro-esophageal reflux disease without esophagitis; E11.9 Type 2 diabetes mellitus without complications; N28.9 Disorder of kidney and ureter, unspecified; Z86.73 Personal history of transient ischemic attack (TIA), and cerebral infarction without residual deficits; Z95.1 Presence of aortocoronary bypass graft; Z88.8 Allergy status to other drugs, medicaments and biological substances; Z79.899 Other long term (current) drug therapy; Z79.82 Long term (current) use of aspirin

== ENCOUNTER → 2020-07-28 | Outpatient (CLI) | payer MEDICARE, BC ==
[~2020-07-28] MED LIST changes: +ISOVUE-300 61% 50ML VIAL As Ordered ONE; +LIDO1CRE42 TOP; -LIDO2.5C15 TOP; +LIDOCAINE 1% MDV 20ML VIAL As Ordered ONE; +MIDAZOLAM INJ 2MG/2ML VIAL (J2250 PER 1MG) As Ordered ONE; +fentaNYL 100 MCG/2 ML INJECTION (J3010) As Ordered ONE
--- NOTE | 2020-07-28 16:02 | ROOPDOC ---
[facility] Report Of Operation Report of Operation DATE OF PROCEDURE: 07/28/20 PREPROCEDURE DIAGNOSES: End-stage renal disease with poor function left upper extremity brachial basilic AV fistula POSTPROCEDURE DIAGNOSES: Same PROCEDURE: 1. Ultrasound-guided access left basilic vein 2. Left upper extremity fistulogram and central venogram 3. Angioplasty left basilic vein, axillary vein, subclavian vein with 8 x 20 cutting balloon and 9 x 80 [place] balloon 4. Completion venograms left upper extremity SURGEON: Sakina Capone MD ANESTHESIA: Lidocaine 2 mL local anesthesia. Moderate intravenous conscious sedation was administered by Dr. Capone. The patient was independently monitored by registered nurse assigned to the Department of radiology using automated blood pressure, EKG, and pulse oximetry. The details sedation record is permanently stored in the hospital information system. The following is a brief sedation record: Start time 15:16, stop time 15:43, Versed 1 mg IV, fentanyl 50 g IV. CONTRAST: 20 mL Isovue-300 INDICATION FOR PROCEDURE: This is a very pleasant 75-year-old patient with end-s tage renal disease currently having increased venous pressures and increased bleeding times after dialysis with her left brachial basilic AV fistula. Risks benefits and alternatives to a fistulogram potential intervention were explained to the patient. She is agreeable to proceed. Informed consent was obtained. INTERPRETATION: 1. The AV anastomosis for the left brachial basilic fistula is widely patent on ultrasound, please see images. 2. The left basilic vein is widely patent over the biceps in the transposed area, but has a 70% stenosis where returns to its normal anatomic lie deeper in the arm. The axillary vein is widely patent but there appears to be mild narrowing at a large valve near the axilla. The left subclavian vein stent is patent, but there is a focal 60% stenosis proximal to the stent. The central veins are widely patent. 3. After angioplasty of the left basilic vein, axillary vein, and subclavian vein with 8 x 20 cutting balloon, there is still some mild residual stenosis in each of the 3 areas of focal stenosis. No extravasation noted. After repeat angioplasty for 2 minute inflations with a 9 x 80 [place] balloon, there is widely patent inflow all the way through the fistula to the central system without obstruction. No significant residual stenosis noted. No extravasation noted. REPORT OF OPERATION: The patient was brought to the angiographic suite in stable condition. Her left upper extremity was prepped and draped in a sterile fashion. A timeout was performed. Local anesthesia was a director of land to the skin and subcutaneous tissue over the basilic vein near the AV anastomosis. Ultrasound was used to examine the AV anastomosis with color-flow Doppler and it was found to be widely patent, please see images. We then used ultrasound to gain access to the basilic vein near the AV anastomosis with a microneedle, and a wire was passed through this access and a 4 English sheath was placed and flushed with saline. Sedation was administered without complication. We then performed a fistulogram and central venogram, please see interpretation above. A Glidewire was advanced into the central system under fluoroscopic guidance in the sheath was exchanged for 7 [place] sheath and flushed with saline. We then exchange the wire for a 01 damage and over this we advanced an 8 x 20 cutting balloon and serial inflations the balloon were performed in the basilic vein proximally, the mid axillary vein, and the subclavian vein at Dre's canal distal to the stents on the left. We then exchange the balloon over the wire for 9 x 80 [place] balloon and 2 minute inflations were performed along the length from the proximal basilic vein to the mid stents in the subclavian vein. Following this, there is widely patent inflow back to the central system. There is no longer any pulsatility in the fistula and there is an excellent thrill. We then placed a [id number] Prolene suture at the sheath exit site removed the sheath was securing the suture. Good hemostasis was noted sterile dressings were applied. The patient was then taken to recovery in stable condition. She tolerated the procedure and the sedation well. ESTIMATED BLOOD LOSS: Approximately 5 mL. COMPLICATIONS: none. PLAN: Okay to use AV fistula for dialysis. Okay to resume home diet and medications. We appreciate the opportunity to participate in the care this patient. SAKINA CAPONE MD Jul 28, 2020 16:02
[2020-07-28 16:25] VITALS: BP 189/87
== END ==
LOC: M IRPRO 12:37
PROVIDERS: ATTEND Surgery Vascular Surgery
DX: T82.598A Other mechanical complication of other cardiac and vascular devices and implants, initial encounter (principal); N18.6 End stage renal disease; E03.9 Hypothyroidism, unspecified; E11.22 Type 2 diabetes mellitus with diabetic chronic kidney disease; E78.00 Pure hypercholesterolemia, unspecified; F90.9 Attention-deficit hyperactivity disorder, unspecified type; I13.2 Hypertensive heart and chronic kidney disease with heart failure and with stage 5 chronic kidney disease, or end stage renal disease; I50.9 Heart failure, unspecified; X58.XXXA Exposure to other specified factors, initial encounter; Z79.82 Long term (current) use of aspirin; Z79.899 Other long term (current) drug therapy; Z88.8 Allergy status to other drugs, medicaments and biological substances; Z99.2 Dependence on renal dialysis
CPT/HCPCS: 36902; 36907; 99152; 99153; C1725; C1729; C1769; C1894; J1644; J2250; J3010; Q9967

== ENCOUNTER 2020-10-05 15:40 | Inpatient (IN) | payer MEDICARE, BC ==
[~2020-10-05] VITALS: Ht 165.1 cm; Wt 63.6 kg
[~2020-10-05 15:40] MED LIST changes: +EQ M2CRE2 PV; -ISOVUE-300 61% 50ML VIAL As Ordered ONE; -LIDOCAINE 1% MDV 20ML VIAL As Ordered ONE; -MICO7CR PV; -MIDAZOLAM INJ 2MG/2ML VIAL (J2250 PER 1MG) As Ordered ONE; +OMEP40CA4 PO; -OMEP40CA97 PO; -fentaNYL 100 MCG/2 ML INJECTION (J3010) As Ordered ONE
[2020-10-05 17:22] LABS: BASO % 0.4 % (0.0-1.0); EOS # 0.1 10^3/uL (0.0-0.5); EOS % 2.6 % (0.0-3.0); HEMATOCRIT 33.2 % (36.0-47.0); HEMOGLOBIN 10.4 g/dl (12.0-15.5); LYMPH # 0.9 10^3/uL (1.5-5.0); LYMPH % 17.5 % (24.0-44.0); MEAN CORPUSCULAR HEMOGLOBIN 28.6 pg (27.0-33.0); MEAN CORPUSCULAR HGB CONC 31.3 g/dl (32.0-36.5); MEAN CORPUSCULAR VOLUME 91.2 fl (80.0-96.0); MONO # 0.5 10^3/uL (0.0-0.8); MONO % 8.4 % (2.0-8.0); NEUTROPHILS # 3.8 10^3/uL (1.5-8.5); NEUTROPHILS % 70.7 % (36.0-66.0); PLATELET COUNT, AUTOMATED 122 10^3/uL (150-450); RED BLOOD COUNT 3.64 10^6/uL (4.00-5.40); WHITE BLOOD COUNT 5.4 10^3/uL (4.0-10.0)
[2020-10-05 17:45] LABS: ALBUMIN 3.5 GM/DL (3.2-5.2); ALT/SGPT 19 U/L (12-78); BILIRUBIN,TOTAL 0.3 MG/DL (0.2-1.0); BLOOD UREA NITROGEN 22 MG/DL (7-18); CALCIUM LEVEL 8.9 MG/DL (8.8-10.2); CARBON DIOXIDE LEVEL 34 MEQ/L (21-32); CHLORIDE LEVEL 99 MEQ/L (98-107); CK-MB VALUE MASS 1.8 NG/ML (<3.6); CPK CREATINE PHOSPHOKINASE 85 U/L (26-192); CREATININE FOR GFR 4.92 MG/DL (0.55-1.30); GLOMERULAR FILTRATION RATE 11.1 (>39); GLUCOSE, FASTING 158 MG/DL (70-100); MB/CK RELATIVE INDEX 2.12 (< OR =4); NT-PRO BNP 19644 PG/ML (<125); POTASSIUM SERUM 3.6 MEQ/L (3.5-5.1); SODIUM LEVEL 136 MEQ/L (136-145); TOTAL PROTEIN 7.5 GM/DL (6.4-8.2); TROPONIN I < 0.02 NG/ML (< 0.10)
--- NOTE | 2020-10-05 19:20 | REP ---
INDICATION: SOB. COMPARISON: Comparison chest x-ray May 11, 2020.. TECHNIQUE: Sitting AP portable chest x-ray. FINDINGS: EKG monitoring electrodes are seen. There is a vascular stent obliquely oriented in the mediastinum. Median sternotomy wires are seen. Moderate cardiac enlargement is observed unchanged. There is slight thickening of the pleura in the left base. Vascular congestion is seen. There is a noncalcified nodular density projecting in the right upper perihilar region measuring 10 mm in diameter. This is a calcified granuloma visible on CT study May 11, 2020. There is hazy opacity at both bases suggesting small bilateral effusions. IMPRESSION: CHF pattern with suspect small bilateral effusions, cardiomegaly and vascular congestion. Right upper lobe granuloma. Prior sternotomy. <Electronically signed by Bridger Moreno > 10/05/201915
--- NOTE | 2020-10-05 19:25 | ECGEPIP ---
[facility] - ED Test Date: 2020-10-05 Pat Name: RONNIE BRAN Department: Room: - Gender: Female Design Checker: : 1945 Requested By: RIVAS Lew Order Number: [id number] Reading MD: Juana Urias Measurements Intervals [place] Rate: 82 P: 61 RI: 184 QRS: -24 QRSD: 100 T: 103 QT: 420 QTc: 490 Interpretive Statements Normal sinus rhythm Minimal voltage criteria for LVH, may be normal variant ( [place] product ) Anterior infarct , age undetermined inferior infarct, age indeterminate similar 05/15/20 Electronically Signed on 10-05-2020 19:25:47 EDT by Juana Urias
[2020-10-05] MEDS ORDERED: RENV2TAB PO (20:32)
[2020-10-05] MEDS ORDERED: HYDR-3910 PO (20:32)
[2020-10-05] MEDS ORDERED: OYST500T92 PO (20:32)
[2020-10-05] MEDS ORDERED: HOME MED LIST COMPLETE! XX SCH (20:35)
[2020-10-05 21:58] LABS: CK-MB VALUE MASS 1.3 NG/ML (<3.6); CPK CREATINE PHOSPHOKINASE 81 U/L (26-192); TROPONIN I < 0.02 NG/ML (< 0.10)
--- NOTE | 2020-10-05 22:06 | HPEPDOC ---
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 History of worsening shortness of breath and tightness across her chest, as well as orthopnea and paroxysmal nocturnal dyspnea. Patient found to have an elevated BNP of 19,600 in the ER. Chest x-ray consistent with fluid overload. Dr. mishra was consulted from the ER. Plan for additional session of dialysis in the morning. Bone marrow negative. Patient be admitted to the hospitalist service for the management of acute congestive heart failure exacerbation. 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 Smoked 1 PPD for 14 years Denies illicit drug use Lives at home with her ALLERGIES: Please see below. REVIEW OF SYSTEMS: 10 point review of systems was conducted, relevant findings are noted in HPI. HOME MEDICATIONS: Please see below. PHYSICAL EXAMINATION: VITAL SIGNS: please see below General: NAD, comfortable HEENT: PERRLA, EOMI, sclerae clear Neck: supple, normal ROM, no JVD Respiratory: lungs CTAB, no wheeze, no rales, no crackles CVS: RRR, normal S1, S2, no murmurs Abdo: soft, no masses, no hepatosplenomegaly, BS+, no rebound tenderness Extremities: no edema, pulses 2+ MSK: no joint deformities, normal ROM Neuro: no focal neuro deficits, moving all 4 extremities, CN2-12 intact. Strength 5/5 in all 4 extremities. No nystagmus. Psych: calm, cooperative, AAO x 3 LABORATORY DATA: See below. IMAGING: CXR (10/05/20): CHF pattern with suspect small bilateral effusions, cardiomegaly and vascular congestion. Right upper lobe granuloma. Prior sternotomy. MICROBIOLOGY: Please see below. 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 History of worsening shortness of breath and tightness across her chest, as well as orthopnea and paroxysmal nocturnal dyspnea. Patient found to have an elevated BNP of 19,600 in the ER. Chest x-ray consistent with fluid overload. Dr. mishra was consulted from the ER. Plan for additional session of dialysis in the morning. Bone marrow negative. Patient be admitted to the hospitalist service for the management of acute congestive heart failure exacerbation. PLAN: #Shortness of breath/orthopnea 2/2 diastolic CHF exacerbation: BNP 46858. Diffuse basal crackles. CXR showing bilateral pleural effusion and vascular congestion. Last Echo 04/05/20, LVEF 40%, G2DD. Plan for additional session of HD in am. Dr. Kiran consulted. Fluid restrict to 1800 cc/day. # ESRD on HD MWF since 2016: Management per nephrology. D/w Dr. Kiran, consulted. # Weakness, Debility uses a rolling walker, / Spinal stenosis s/p lumbar laminectomy: prior CVA, R sided residual weakness. PT/OT ordered. # HTN: BP well controlled in ER. Continue home regimen of Amlodipine, Carved ilol, Hydralazine. . # CAD s/p CABG: c/w ASA and pravastatin # hx CVA: c/w ASA and pravastatin # Ischemic cardiomyopathy/Chronic HFrEF 35-40% EF: c/w home meds # DM: ISS. Frequent Accu-Cheks. Hypoglycemic precautions. # AOCD 2/2 ESRD # Osteoporosis: Receives prolia injections # DVT prophylaxis: Heparin Dispo: admission expect to last > 2 midnights CODE STATUS: patient verbalized wishes for DNR/DNI status. Vital Signs Vital Signs Date Time Temp Pulse Resp B/P (MAP) Pulse Ox O2 Delivery O2 Flow Rate FiO2 10/05/20 19:31 150/74 (99) 10/05/20 19:30 87 10/05/20 19:15 98 10/05/20 17:55 18 10/05/20 15:41 97.9 Room Air Laboratory Data Labs 24H Laboratory Tests 2 10/05/20 16:20: Immature Granulocyte % (Auto) 0.4, Neutrophils (%) (Auto) 70.7H, Lymphocytes (%) (Auto) 17.5L, Monocytes (%) (Auto) 8.4H, Eosinophils (%) (Auto) 2.6, Basophils (%) (Auto) 0.4, Neutrophils # (Auto) 3.8, Lymphocytes # (Auto) 0.9L, Monocytes # (Auto) 0.5, Eosinophils # (Auto) 0.1, Basophils # (Auto) 0.0, Nucleated Red Blood Cells % (auto) 0.4H, Anion Gap 3L, Glomerular Filtration Rate 11.1L, Calcium Level 8.9, Total Bilirubin 0.3, Aspartate Amino Transf (AST/SGOT) 22, Alanine Aminotransferase (ALT/SGPT) 19, Alkaline Phosphatase 77, Total Creatine Kinase 85, Creatine Kinase MB 1.8, Creatine Kinase MB Relative Index 2.12, Troponin I < 0.02, GU-Tgr-[id number]-Type Natriuretic Peptide 36019N, Total Protein 7.5, Albumin 3.5, Albumin/Globulin Ratio 0.9L 10/05/20 21:01: Total Creatine Kinase 81, Creatine Kinase MB 1.3, Creatine Kinase MB Relative Index 1.60, Troponin I < 0.02 CBC/BMP Laboratory Tests 10/05/20 16:20 Microbiology Microbiology 10/05/20 Respiratory Virus Panel (PCR) ([facility]) - Final, Complete Home Medications Scheduled Amlodipine Besylate (Amlodipine Besylate) 5 Mg Tablet, 5 MG PO QHS Aspirin (Aspirin EC) 81 Mg Tablet.dr, 81 MG PO QHS Calcium Carbonate/Vitamin D3 (Calcium 500-Vit D3 200 Tablet) 1 Each Tablet, 1 TAB PO QHS Carvedilol (Carvedilol) 12.5 Mg Tablet, 12.5 MG PO BID Denosumab Injection (Prolia) 60 Mg/1 Ml Syringe, 60 MG SC ASDIRECTED EVERY SIX MONTHS Hydralazine HCl (Hydralazine HCl) 25 Mg Tablet, 25 MG PO TID Lidocaine/Prilocaine (Lidocaine-Prilocaine Cream) 2.5%/2.5% Cream..g., 1 APLCT TOP 3XW MONDAY, MONDAY AND MONDAY PRIOR TO DIALYSIS Multivitamins (Thera M Plus Tablet) 1 Each Tablet, 1 TAB PO QHS Pravastatin Sodium (Pravastatin Sodium) 80 Mg Tablet, 80 MG PO QHS Sevelamer Carbonate (Sevelamer Carbonate) 800 Mg Tablet, 800 MG PO PC Ubidecarenone (Coenzyme Q10) 100 Mg Tablet, 100 MG PO QHS Scheduled PRN Sevelamer Carbonate (Renvela) 800 Mg Tablet, 800 MG PO ASDIRECTED PRN for AFTER SNACKS Allergies Coded Allergies: [id number] Reductase Inhibitor (Verified Adverse Reaction, Unknown, PAIN, 10/05/20) PT SAYS SHE CAN TAKE PRAVASTATIN LISA YU MD Oct 05, 2020 22:06
[2020-10-05] MEDS ORDERED: (RENVELA) SEVELAMER **CARBONate** 800 MG TAB PO PRN (22:10)
[2020-10-05] MEDS ORDERED: MOM 30ML SUSPENSION UDC PO PRN (22:10)
[2020-10-05] MEDS ORDERED: MAALOX 30 ML SUSP *UDC PO PRN (22:10)
[2020-10-06 01:10] VITALS: BP 175/86
[2020-10-06] MEDS ORDERED: DEXTROSE 50% 50 ML SYRINGE IV PRN (02:15)
[2020-10-06] MEDS ORDERED: GLUCAGON INJ 1MG VIAL SC PRN (02:15)
[2020-10-06] MEDS ORDERED: GLUCOSE 4GM CHEW TABLET PO PRN (02:15)
[2020-10-06] MEDS: **hydrALAZINE HCL** 25 MG TAB PO SCH ×4 (02:44→21:57)
[2020-10-06] MEDS: CO-ENZYME Q10 50 MG CAP PO SCH ×2 (02:44→21:57)
[2020-10-06] MEDS: ASPIRIN 81MG ENTERIC TABLET PO SCH ×2 (02:45→21:57)
[2020-10-06] MEDS: amLODIPine 5 MG TAB PO SCH ×2 (02:45→21:57)
[2020-10-06] MEDS: CARVedilol 12.5 MG TAB PO SCH ×3 (02:45→21:57)
[2020-10-06] MEDS: CALCIUM/VITAMIN D 500 MG TAB PO SCH ×2 (02:45→21:57)
[2020-10-06] MEDS: DOCUSATE SODIUM 100MG CAPSULE PO SCH ×3 (02:45→21:57)
[2020-10-06] MEDS: MULTIVITAMINS/MINERALS THERAP 1 TAB PO SCH ×2 (02:46→21:58)
[2020-10-06] MEDS: ACETAMINOPHEN TAB 650MG DOSE (2X325MG) PO PRN ×2 (02:46→21:59)
[2020-10-06] MEDS: PRAVASTATIN 20 MG TAB PO SCH ×2 (02:46→21:57)
[2020-10-06 05:37] VITALS: BP 141/61
[2020-10-06] MEDS: HEPARIN SOD (PORCINE) 5000UNITS/ML 1ML VIAL/SYRINGE SC SCH ×3 (05:37→21:58)
[2020-10-06] MEDS ORDERED: LIDOCAINE 1% SDV 5ML VIAL SC PRN (06:00)
[2020-10-06 06:36] LABS: BASO % 0.4 % (0.0-1.0); EOS # 0.2 10^3/uL (0.0-0.5); EOS % 2.9 % (0.0-3.0); HEMATOCRIT 31.7 % (36.0-47.0); HEMOGLOBIN 9.6 g/dl (12.0-15.5); LYMPH # 0.9 10^3/uL (1.5-5.0); LYMPH % 18.3 % (24.0-44.0); MEAN CORPUSCULAR HEMOGLOBIN 27.9 pg (27.0-33.0); MEAN CORPUSCULAR HGB CONC 30.3 g/dl (32.0-36.5); MEAN CORPUSCULAR VOLUME 92.2 fl (80.0-96.0); MONO # 0.6 10^3/uL (0.0-0.8); NEUTROPHILS # 3.4 10^3/uL (1.5-8.5); PLATELET COUNT, AUTOMATED 111 10^3/uL (150-450); RED BLOOD COUNT 3.44 10^6/uL (4.00-5.40); WHITE BLOOD COUNT 5.1 10^3/uL (4.0-10.0)
[2020-10-06 07:07] LABS: ALBUMIN 3.2 GM/DL (3.2-5.2); ALT/SGPT 13 U/L (12-78); BILIRUBIN,TOTAL 0.3 MG/DL (0.2-1.0); BLOOD UREA NITROGEN 35 MG/DL (7-18); CARBON DIOXIDE LEVEL 32 MEQ/L (21-32); CHLORIDE LEVEL 100 MEQ/L (98-107); CREATININE FOR GFR 6.43 MG/DL (0.55-1.30); GLOMERULAR FILTRATION RATE 8.2 (>39); GLUCOSE, FASTING 138 MG/DL (70-100); MAGNESIUM LEVEL 2.5 MG/DL (1.8-2.4); POTASSIUM SERUM 4.2 MEQ/L (3.5-5.1); SODIUM LEVEL 138 MEQ/L (136-145); TOTAL PROTEIN 6.8 GM/DL (6.4-8.2); TROPONIN I < 0.02 NG/ML (< 0.10)
[2020-10-06] MEDS ORDERED: DARBEPOETIN 100 MCG/0.5 ML *DIALYSIS* SYRINGE (J0882) IV SCH (08:35)
[2020-10-06] MEDS: (RENVELA) SEVELAMER **CARBONate** 800 MG TAB PO SCH ×3 (09:33→18:19)
[2020-10-06] MEDS: HumaLOG INSULIN (NovoLOG) PER UNIT SC SCH ×4 (09:34→21:00)
[2020-10-06 14:00] VITALS: BP 149/67
--- NOTE | 2020-10-06 14:14 | CR ---
NEPHROLOGY CONSULTATION DATE: 10/06/2020 REQUESTING PHYSICIAN: Melvina Solo M.D. REASON FOR CONSULTATION: Management of end-stage renal disease and fluid overload. CHIEF COMPLAINT: Patient presented to the hospital yesterday with progressive shortness of breath. HISTORY OF PRESENT ILLNESS: Bree Acosta is a 75-year-old female with past medical history of end-stage renal disease on hemodialysis every Monday, Monday and Monday, coronary artery disease status post coronary artery bypass graft (CABG), chronic combined systolic and diastolic congestive heart failure, multiple other medical comorbidities, as mentioned below. She was dialyzed yesterday. She tolerated the hemodialysis procedure well. However, despite that, she was complaining of weakness, progressive shortness of breath and tightness around the chest, along with orthopnea. She was evaluated in the emergency room. She had elevated BNP levels. Chest x-ray showed fluid overload and pulmonary edema. She was admitted under the hospitalist service. Nephrology service was called for further help in this patient's volume status. I saw and evaluated the patient today morning at the bedside. She was sitting up in the sofa. I arranged an extra session of hemodialysis to be done today. She will be called soon for dialysis procedure. PAST MEDICAL HISTORY: 1. End-stage renal disease on hemodialysis every Monday, Monday, Monday. 2. Coronary artery disease status post coronary artery bypass graft (CABG). 3. Ischemic cardiomyopathy. 4. Chronic combined systolic and diastolic congestive heart failure. Left ventricular ejection fraction (LVEF) on the latest echocardiogram is around 40% and grade 2 diastolic dysfunction. 5. History of cerebrovascular accident (CVA) with right hemiparesis and slurred speech. 6. Hypertension. 7. Diabetes mellitus type 2, insulin dependent. 8. Hyperlipidemia. 9. History of spinal stenosis. 10. Bilateral bronchiectasis with calcified granulomonas. PAST SURGICAL HISTORY: 1. Status post coronary artery bypass grafting. 2. Status post hysterectomy. 3. History of lumbar laminectomy in 2007. 4. Fistulogram and dilatation of the left arm arteriovenous (AV) fistula. ALLERGIES: She is allergic to STATINS. FAMILY HISTORY: No significant family history of end-stage renal disease requiring hemodialysis. SOCIAL HISTORY: Patient lives at home. She denies any illicit drug abuse or alcohol abuse. She is an ex-smoker. She quit about 26 years ago. REVIEW OF SYSTEMS: CONSTITUTIONAL: She reports feeling more and more weak and lethargic. EYES: She denies any blurry vision or double vision. EARS, NOSE AND THROAT (ENT): She denies any dysphagia or odynophagia. CARDIOVASCULAR: She reports chest tightness. RESPIRATORY: She reports progressive shortness of breath and orthopnea. GASTROINTESTINAL (GI): She denies any nausea or vomiting. GENITOURINARY: She reports decreased urine output because of renal failure. MUSCULOSKELETAL: She reports muscle weakness. SKIN: She denies any rashes or ulcers. HEMATOLOGICAL/ONCOLOGICAL: She denies any easy bleeding or bruising. CENTRAL NERVIOUS SYSTEM (SERVICE DOG TRAINER): Denies any strokes or seizures. All other review of systems is negative. PHYSICAL EXAMINATION: GENERAL: Patient is awake, alert, oriented times three, sitting up in the sofa. VITAL SIGNS: Temperature 97.8 degrees Fahrenheit, blood pressure 141/61, pulse 73, respiratory rate 17, saturating 100% on nasal cannula at 2 liters. HEAD AND NECK EXAM: Extraocular muscles intact. Patient has facial puffiness, especially around the eyes. Neck is supple. There is no significant jugular venous distention (JVD). CARDIOVASCULAR: S1, S2. Regular rate. No edema of the bilateral lower extremities. RESPIRATORY: Decreased breath sounds bilaterally at the bases with inspiratory crackles bilaterally in the lungs from the bases up to the mid lung zones. ABDOMEN: Soft. Positive bowel sounds. Nontender. No organomegaly MUSCULOSKELETAL: No clubbing or cyanosis. Pulses are 2+. CENTRAL NERVOUS SYSTEM (SERVICE DOG TRAINER): No focal deficits. Power is 5/5 in all extremities. LABORATORY REVIEW: CBC showed WBC 5.1, hemoglobin 9.6, platelets 111. BMP showed sodium 138, potassium 4.2, chloride 100, bicarbonate 32, BUN 35, creatinine 6.4. Total bilirubin 0.3, albumin 3.2. IMAGING: A chest x-ray was done yesterday which showed congestive heart failure (CHF) pattern with small bilateral pleural effusions, cardiomegaly and vascular congestion, a right upper lobe granuloma. CURRENT INPATIENT MEDICATIONS: Patient's medications include: - Tylenol as needed - Mylanta as needed - amlodipine 5 mg by mouth daily - aspirin 81 mg by mouth daily - vitamin D with calcium 500 mg by mouth daily - Coreg 12.5 mg by mouth twice a day - CoQ10 - Aranesp which was started by myself 100 mcg with dialysis - Colace 100 mg by mouth twice a day - heparin subcutaneous - hydralazine 25 mg by mouth three times a day - EMLA cream before dialysis - Milk of Magnesia - multivitamin - pravastatin 80 mg at bedtime - Renvela 800 mg by mouth with meals ASSESSMENT AND PLAN: 1. Acute decompensated combined systolic and diastolic congestive heart failure. Patient is noncompliant with fluid restriction and with medications as outpatient. She will be getting an extra session of hemodialysis and fluid removal today. No use of diuretics since patient is anuric. 2. End-stage renal disease on hemodialysis. Patient's regular dialysis days are Monday, Monday and Monday. She was dialyzed yesterday. An extra session of dialysis will be done today. 3. Hypertension. Blood pressure is controlled with Coreg and hydralazine with amlodipine. Multiple times we have tried adding and angiotensin converting enzyme (JOSH) inhibitor and Entresto, but patient is noncompliant, as she stops taking her medication. 4. Coronary artery disease status post coronary artery bypass graft (CABG). Continue aspirin, pravastatin and Coreg at this time. 5. Anemia in end-stage renal disease. Hemoglobin level is suboptimal. She has been started on Aranesp with dialysis. 6. Chronic kidney disease/mineral bone disease. Continue current dose of Renvela with meals. Thank you for involving me in the care of this patient. I shall be happy to follow the patient along with you tomorrow morning.
--- NOTE | 2020-10-06 15:00 | IPNPDOC ---
Text Note Date of Service The patient was seen on 10/06/20. NOTE SUBJECTIVE: -No acute complaints this morning OBJECTIVE: VITAL SIGNS: please see below General: NAD, comfortable HEENT: PERRLA, EOMI, sclerae clear Neck: supple, normal ROM, no JVD Respiratory: Scattered crackles, otherwise no wheezing CVS: RRR, normal S1, S2, no murmurs Abdo: soft, normoactive bowel sounds, soft, NTND Extremities: no edema, WWP MSK: no joint deformities, normal ROM Neuro: no focal neuro deficits, moving all 4 extremities, CN3-12 intact. Strength 5/5 in all 4 extremities. Psych: calm, cooperative, AAO x 3 LABORATORY DATA: Reviewed IMAGING: CXR (10/05/20): CHF pattern with suspect small bilateral effusions, cardiomegaly and vascular congestion. Right upper lobe granuloma. Prior sternotomy. MICROBIOLOGY: Please see below. 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 PLAN: #HFrEF exacerbation: BNP 50243. Diffuse basal crackles. CXR showing bilateral pleural effusion and vascular congestion. Last Echo 04/05/20, LVEF 40%, G2DD. -Plan for HD this AM per Dr. Kiran. -Fluid restrict to 1800 cc/day. -strict I/Os -daily weights -2g sodium, renal diet # ESRD on HD MWF since 2016: -Management per nephrology. -D/w Dr. Kiran, consulted. # Weakness, Debility uses a rolling walke with a history of Spinal stenosis s/p lumbar laminectomy: prior CVA, R sided residual weakness. -PT/OT ordered. # HTN: BP well controlled. -Continue home regimen of Amlodipine, Carvedilol, Hydralazine. # CAD s/p CABG: -c/w ASA and pravastatin # hx CVA: -c/w ASA and pravastatin # DM: -ISS AC/HS. -FSBG AC/HS -Hypoglycemic protocol # AOCD 2/2 ESRD -management per nephrology # Osteoporosis: -Receives prolia injections # DVT prophylaxis: -Heparin Dispo: admission expect to last > 2 midnights VS,Fishbone, I+O VS, Fishbone, I+O Laboratory Tests 10/05/20 16:20 10/06/20 05:29 Vital Signs Date Time Temp Pulse Resp B/P (MAP) Pulse Ox O2 Delivery O2 Flow Rate FiO2 10/06/20 05:37 97.8 73 17 141/61 (87) 100 Nasal Cannula 2.0 HODA GUERRERO MD Oct 06, 2020 08:29
[2020-10-06 19:30] VITALS: BP 146/70
[2020-10-07] MEDS ORDERED: EMLA CREAM 5GM TUBE (LIDOCAINE/PRILOCAINE) TOP SCH (05:00)
[2020-10-07 06:00] VITALS: BP 154/73
[2020-10-07] MEDS: HEPARIN SOD (PORCINE) 5000UNITS/ML 1ML VIAL/SYRINGE SC SCH (06:00)
[2020-10-07] MEDS: **hydrALAZINE HCL** 25 MG TAB PO SCH ×3 (06:18→21:53)
[2020-10-07] MEDS: ACETAMINOPHEN TAB 650MG DOSE (2X325MG) PO PRN ×3 (06:19→18:42)
[2020-10-07] MEDS: CARVedilol 12.5 MG TAB PO SCH ×2 (06:19→21:53)
[2020-10-07] MEDS: DOCUSATE SODIUM 100MG CAPSULE PO SCH ×2 (06:19→21:53)
[2020-10-07] MEDS: (RENVELA) SEVELAMER **CARBONate** 800 MG TAB PO SCH ×3 (07:40→18:38)
[2020-10-07] MEDS: HumaLOG INSULIN (NovoLOG) PER UNIT SC SCH ×4 (07:41→21:00)
[2020-10-07] MEDS ORDERED: LIDOCAINE 1% SDV 5ML VIAL SC PRN (08:15)
[2020-10-07 08:45] LABS: BASO % 0.6 % (0.0-1.0); EOS # 0.1 10^3/uL (0.0-0.5); HEMATOCRIT 31.6 % (36.0-47.0); HEMOGLOBIN 9.4 g/dl (12.0-15.5); LYMPH # 0.8 10^3/uL (1.5-5.0); LYMPH % 16.3 % (24.0-44.0); MEAN CORPUSCULAR HEMOGLOBIN 28.3 pg (27.0-33.0); MEAN CORPUSCULAR HGB CONC 29.7 g/dl (32.0-36.5); MEAN CORPUSCULAR VOLUME 95.2 fl (80.0-96.0); MONO # 0.4 10^3/uL (0.0-0.8); MONO % 8.6 % (2.0-8.0); NEUTROPHILS # 3.3 10^3/uL (1.5-8.5); NEUTROPHILS % 70.9 % (36.0-66.0); RED BLOOD COUNT 3.32 10^6/uL (4.00-5.40); WHITE BLOOD COUNT 4.7 10^3/uL (4.0-10.0)
[2020-10-07 09:12] LABS: ALBUMIN 2.8 GM/DL (3.2-5.2); BILIRUBIN,TOTAL 0.3 MG/DL (0.2-1.0); CALCIUM LEVEL 9.1 MG/DL (8.8-10.2); CREATININE FOR GFR 6.36 MG/DL (0.55-1.30); GLOMERULAR FILTRATION RATE 8.3 (>39); MAGNESIUM LEVEL 2.3 MG/DL (1.8-2.4); POTASSIUM SERUM 4.7 MEQ/L (3.5-5.1); TOTAL PROTEIN 6.7 GM/DL (6.4-8.2)
[2020-10-07 09:35] LABS: PLATELET COUNT, AUTOMATED 86 10^3/uL (150-450)
--- NOTE | 2020-10-07 11:33 | IPNPDOC ---
Text Note Date of Service The patient was seen on 10/07/20. NOTE SUBJECTIVE: -No acute complaints this morning OBJECTIVE: VITAL SIGNS: please see below General: NAD, comfortable HEENT: PERRLA, EOMI, sclerae clear Neck: supple, normal ROM, no JVD Respiratory: Diminished with bibasilar crackles heard in posterior lung limon, otherwise no wheezing CVS: RRR, normal S1, S2, no murmurs Abdo: soft, normoactive bowel sounds, soft, NTND Extremities: no edema, WWP MSK: no joint deformities, normal ROM Neuro: no focal neuro deficits, moving all 4 extremities, CN3-12 intact. Strength 5/5 in all 4 extremities. Psych: calm, cooperative, AAO x 3 LABORATORY DATA: Reviewed IMAGING: CXR (10/05/20): CHF pattern with suspect small bilateral effusions, cardiomegaly and vascular congestion. Right upper lobe granuloma. Prior sternotomy. MICROBIOLOGY: Please see below. 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 PLAN: #HFrEF exacerbation: BNP 99270. Diffuse basal crackles. CXR showing bilateral pleural effusion and vascular congestion. Last Echo 04/05/20, LVEF 40%, G2DD. -HD per nephrology -Fluid restrict to 1800 cc/day. -strict I/Os -daily weights -2g sodium, renal diet # ESRD on HD MWF since 2016: -Management per nephrology. -D/w Dr. Kiran, consulted. # Weakness, Debility uses a rolling walke with a history of Spinal stenosis s/p lumbar laminectomy: prior CVA, R sided residual weakness. -PT/OT ordered. # HTN: BP well controlled. -Continue home regimen of Amlodipine, Carvedilol, Hydralazine. # CAD s/p CABG: -c/w ASA and pravastatin # hx CVA: -c/w ASA and pravastatin # DM: -ISS AC/HS. 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
[2020-10-07 14:00] VITALS: BP 149/57
--- NOTE | 2020-10-07 18:22 | IPN ---
PROGRESS NOTE DATE: 10/07/2020 SUBJECTIVE: The patient was seen and examined at the bedside today morning in the dialysis unit during hemodialysis. Yesterday, his events were also noted. Patient was dropping her blood pressure during hemodialysis and we were not able to remove much fluid. Today, is the patient's regular day of dialysis and even today's dialysis is very challenging. Her blood pressure is constantly dropping. She is complaining of generalized body aches and pains and we had to stop her dialysis after 2 1/2 hours. OBJECTIVE: VITAL SIGNS: Temperature is 97.5 degrees Fahrenheit, blood pressure is 149/57, pulse is 76, respiratory rate is 16, saturating 94% on room air. INTAKE AND OUTPUT: Ultrafiltration with hemodialysis was 575 ml yesterday. Weight on the bed scale is not available. GENERAL: Patient is awake, alert and oriented x3, laying in bed getting hemodialysis done. HEAD AND NECK: Extraocular muscles are intact. Pupils equally round and reactive to light. Mucous membranes are moist. Neck is supple. There is no JVD. CARDIOVASCULAR: S1 and S2, regular rate. No edema of the bilateral lower extremities. RESPIRATORY: Chest is clear to auscultation bilaterally, bilateral equal air entry. No rales or rhonchi. ABDOMEN: Soft, positive bowel sounds, nontender, no organomegaly. MUSCULOSKELETAL: No clubbing or cyanosis, pulses are 2+. 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 Power is 5/5 in all extremities. LABORATORY DATA: CBC showed a WBC of 4.7, hemoglobin 9.4, platelets are 86,000. BMP showed a sodium of 138, potassium 4.7, chloride 103, bicarbonate 28, BUN 34, creatinine is 6.3. CURRENT INPATIENT MEDICATIONS: The patient's medications were all reviewed by myself. There is no significant change in the medications today. ASSESSMENT: 1. Endstage renal disease. Patient is being dialyzed according to her regular schedule. Even though the chest x-ray showed signs of fluid overload, however we were not able to remove much fluid from her. Next dialysis will be according to her regular schedule, the day after tomorrow. 2. Chronic combined systolic and diastolic congestive heart failure. As mentioned above, we were not able to remove much fluid during dialysis. Continue salt and water restriction. 3. Hypertension, blood pressure is controlled with current dose of amlodipine, Coreg and hydralazine with withholding parameters. 4. Chronic kidney disease mineral bone disease, continue current dose of Renvela with meals. 5. Disposition: Patient is optimized from a nephrology standpoint to be discharged home if she is cleared by Physical Therapy.
--- NOTE | 2020-10-07 18:41 | REP ---
INDICATION: Shortness of breath, h/o CHF,ESRD. COMPARISON: Comparison chest x-ray October 05, 2020. TECHNIQUE: Two views.. FINDINGS: EKG monitoring electrodes overlie the chest. Median sternotomy wires are noted. There is a vascular graft in the superior mediastinum as before. Cardiomegaly is observed unchanged. Pulmonary vasculature is slightly cephalized. Interstitial markings are prominent in the bases bilaterally. No new infiltrate is seen. IMPRESSION: No new infiltrate. Cardiomegaly. Bibasilar interstitial prominence. Mild vascular congestion.. <Electronically signed by Bridger Moreno > 10/07/20 [id number]
[2020-10-07] MEDS: amLODIPine 5 MG TAB PO SCH (21:53)
[2020-10-07] MEDS: PRAVASTATIN 20 MG TAB PO SCH (21:53)
[2020-10-07] MEDS: CO-ENZYME Q10 50 MG CAP PO SCH (21:53)
[2020-10-07] MEDS: CALCIUM/VITAMIN D 500 MG TAB PO SCH (21:53)
[2020-10-07] MEDS: MULTIVITAMINS/MINERALS THERAP 1 TAB PO SCH (21:53)
[2020-10-07] MEDS: ASPIRIN 81MG ENTERIC TABLET PO SCH (21:53)
[2020-10-07] MEDS: ANALGESIC BALM CRM 3OZ TOP SCH (21:54)
[2020-10-07 22:00] VITALS: BP 138/55
[2020-10-08] MEDS: ACETAMINOPHEN TAB 650MG DOSE (2X325MG) PO PRN ×2 (00:20→09:46)
[2020-10-08 06:00] VITALS: BP 160/74
[2020-10-08 06:37] LABS: BASO % 0.7 % (0.0-1.0); EOS # 0.2 10^3/uL (0.0-0.5); EOS % 2.7 % (0.0-3.0); HEMATOCRIT 30.7 % (36.0-47.0); HEMOGLOBIN 9.1 g/dl (12.0-15.5); LYMPH # 1.2 10^3/uL (1.5-5.0); LYMPH % 20.9 % (24.0-44.0); MEAN CORPUSCULAR HEMOGLOBIN 27.9 pg (27.0-33.0); MEAN CORPUSCULAR HGB CONC 29.6 g/dl (32.0-36.5); MEAN CORPUSCULAR VOLUME 94.2 fl (80.0-96.0); MONO # 0.6 10^3/uL (0.0-0.8); MONO % 11.4 % (2.0-8.0); NEUTROPHILS # 3.5 10^3/uL (1.5-8.5); NEUTROPHILS % 63.6 % (36.0-66.0); PLATELET COUNT, AUTOMATED 126 10^3/uL (150-450); RED BLOOD COUNT 3.26 10^6/uL (4.00-5.40); WHITE BLOOD COUNT 5.5 10^3/uL (4.0-10.0)
[2020-10-08 06:57] LABS: BILIRUBIN,TOTAL 0.2 MG/DL (0.2-1.0); CALCIUM LEVEL 8.9 MG/DL (8.8-10.2); CREATININE FOR GFR 5.17 MG/DL (0.55-1.30); GLOMERULAR FILTRATION RATE 10.5 (>39); MAGNESIUM LEVEL 2.1 MG/DL (1.8-2.4); POTASSIUM SERUM 4.1 MEQ/L (3.5-5.1); TOTAL PROTEIN 6.2 GM/DL (6.4-8.2)
[2020-10-08 09:44] VITALS: BP 144/59
[2020-10-08] MEDS: DOCUSATE SODIUM 100MG CAPSULE PO SCH (09:44)
[2020-10-08] MEDS: CARVedilol 12.5 MG TAB PO SCH (09:44)
[2020-10-08] MEDS: HumaLOG INSULIN (NovoLOG) PER UNIT SC SCH ×2 (09:44→13:33)
[2020-10-08] MEDS: ANALGESIC BALM CRM 3OZ TOP SCH (09:45)
[2020-10-08] MEDS: **hydrALAZINE HCL** 25 MG TAB PO SCH (09:45)
[2020-10-08] MEDS: (RENVELA) SEVELAMER **CARBONate** 800 MG TAB PO SCH ×2 (09:45→13:33)
--- NOTE | 2020-10-08 11:57 | IPNPDOC ---
Text Note Date of Service The patient was seen on 10/08/20. NOTE SUBJECTIVE: -Anna is now euvolemic after a few sessions of daily HD. Her SOB has resolved. -This morning she is complaining of legs feeling like her feet have pins in them and painful with generalized leg weakness that she had difficulty with PT/OT and is afraid of falling. -She also had a transient episode of chest pain/pressure across her chest that resolved by the time she was having an assessment OBJECTIVE: VITAL SIGNS: please see below General: NAD, comfortable HEENT: PERRLA, EOMI, sclerae clear Neck: supple, normal ROM, no JVD Respiratory: Diminished with bibasilar crackles heard in posterior lung limon, otherwise no wheezing CVS: RRR, normal S1, S2, no murmurs Abdo: soft, normoactive bowel sounds, soft, NTND Extremities: no edema, WWP MSK: no joint deformities, normal ROM Neuro: no focal neuro deficits, moving all 4 extremities, CN3-12 intact. Strength 5/5 in all 4 extremities but with diminished sensation in her feet Psych: calm, cooperative, AAO x 3 LABORATORY DATA: Reviewed IMAGING: CXR (10/05/20): CHF pattern with suspect small bilateral effusions, cardiomegaly and vascular congestion. Right upper lobe granuloma. Prior sternotomy. MICROBIOLOGY: Please see below. 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 PLAN: #HFrEF exacerbation: BNP 39129. Diffuse basal crackles. CXR showing bilateral pleural effusion and vascular congestion. Last Echo 04/05/20, LVEF 40%, G2DD. -HD per nephrology -Fluid restrict to 1800 cc/day. -strict I/Os -daily weights -2g sodium, renal diet # ESRD on HD MWF since 2016: -Management per nephrology. -D/w Dr. Kiran, consulted. # Weakness, Debility uses a rolling walke with a history of Spinal stenosis s/p lumbar laminectomy: prior CVA, R sided residual weakness. -PT/OT ordered. -ARU screen # HTN: BP well controlled. -Continue home regimen of Amlodipine, Carvedilol, Hydralazine. # CAD s/p CABG: -c/w ASA and pravastatin # hx CVA: -c/w ASA and pravastatin # DM: c/b neuropathy -ISS AC/HS. 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
--- NOTE | 2020-10-08 12:18 | DS.PDOC ---
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 HOSPITAL COURSE: She was found to have an elevated BNP of 19,600 in the ER. Chest was x-ray consi stent with fluid overload and nephrology was consulted and internal medicine admitted her for additional dialysis sessions. She was admitted to medicine for acute congestive heart failure exacerbation and underwent daily HD until 10/07 with resolution of her symptoms. Her course was c/b complaints of pins and needles in feet, with lower extremities weakness and had difficulty ambulating with PT/OT. She was started on nightly gabapentin for the parasthesias c/w peripheral neuropathy and ARU was consulted for evaluation. She was deemed appropriate for ARU admission and is now being discharged to the ARU for PT/OT per PM&R before final discharge home. DISCHARGE MEDICATIONS: Please see below. ALLERGIES: Please see below. PHYSICAL EXAMINATION ON DISCHARGE: VITAL SIGNS: please see below General: NAD, comfortable HEENT: PERRLA, EOMI, sclerae clear Neck: supple, normal ROM, no JVD Respiratory: Diminished with bibasilar crackles heard in posterior lung limon, otherwise no wheezing CVS: RRR, normal S1, S2, no murmurs Abdo: soft, normoactive bowel sounds, soft, NTND Extremities: no edema, WWP MSK: no joint deformities, normal ROM Neuro: no focal neuro deficits, moving all 4 extremities, CN3-12 intact. Strength 5/5 in all 4 extremities but with diminished sensation in her feet Psych: calm, cooperative, AAO x 3 LABORATORY DATA: Please see below. IMAGING: CXR (10/05/20): CHF pattern with suspect small bilateral effusions, cardiomegaly and vascular congestion. Right upper lobe granuloma. Prior sternotomy. CXR 10/07/20): No new infiltrate. Cardiomegaly. Bibasilar interstitial prominence. Mild vascular congestion.. PROGNOSIS: Good ACTIVITY: As tolerated DIET: Renal diet, consistent carb DISCHARGE PLAN: ARU for rehab before home discharge DISPOSITION: ARU DISCHARGE INSTRUCTIONS: ARU for rehab before home discharge ITEMS TO FOLLOWUP ON ON OUTPATIENT: neuropathy ESRD CHF DISCHARGE CONDITION: Stable TIME SPENT ON DISCHARGE: 40 minutes. Vital Signs/I&Os Vital Signs Date Time Temp Pulse Resp B/P (MAP) Pulse Ox O2 Delivery O2 Flow Rate FiO2 10/08/20 09:44 82 144/59 10/08/20 06:00 96.8 18 98 Nasal Cannula 2.0 I&O- Last 24 Hours up to 6 AM 10/08/20 06:00 Intake Total 805 ml Output Total 200 ml Balance 605 ml Laboratory Data Labs 24H Laboratory Tests 2 10/07/20 12:29: Bedside Glucose (Misc Panel) 154H 10/07/20 16:56: Bedside Glucose (Misc Panel) 278H 10/07/20 19:54: Bedside Glucose (Misc Panel) 248H 10/08/20 05:34: Immature Granulocyte % (Auto) 0.7, Neutrophils (%) (Auto) 63.6, Lymphocytes (%) (Auto) 20.9L, Monocytes (%) (Auto) 11.4H, Eosinophils (%) (Auto) 2.7, Basophils (%) (Auto) 0.7, Neutrophils # (Auto) 3.5, Lymphocytes # (Auto) 1.2L, Monocytes # (Auto) 0.6, Eosinophils # (Auto) 0.2, Basophils # (Auto) 0.0, Nucleated Red Blood Cells % (auto) 0.5H, Anion Gap 6L, Glomerular Filtration Rate 10.5L, Calcium Level 8.9, Magnesium Level 2.1, Total Bilirubin 0.2, Aspartate Amino Transf (AST/SGOT) 14, Alanine Aminotransferase (ALT/SGPT) 14, Alkaline Phosphatase 73, Total Protein 6.2L, Albumin 3.0L, Albumin/Globulin Ratio 0.9L 10/08/20 11:35: Bedside Glucose (Misc Panel) 259H CBC/BMP Laboratory Tests 10/08/20 05:34 FSBS Laboratory Tests Test 10/07/20 12:29 10/07/20 16:56 10/07/20 19:54 10/08/20 11:35 Range/Units Bedside Glucose (Misc Panel) 154 278 248 259 83-110 MG/DL Microbiology Microbiology 10/05/20 Respiratory Virus Panel (PCR) ([facility]) - Final, Complete Discharge Medications Scheduled Amlodipine Besylate (Amlodipine Besylate) 5 Mg Tablet, 5 MG PO QHS, (Reported) Aspirin (Aspirin EC) 81 Mg Tablet.dr, 81 MG PO QHS, (Reported) Calcium Carbonate/Vitamin D3 (Calcium 500-Vit D3 200 Tablet) 1 Each Tablet, 1 TAB PO QHS, (Reported) Carvedilol (Carvedilol) 12.5 Mg Tablet, 12.5 MG PO BID, (Reported) Denosumab Injection (Prolia) 60 Mg/1 Ml Syringe, 60 MG SC ASDIRECTED, (Reported) EVERY SIX MONTHS Hydralazine HCl (Hydralazine HCl) 25 Mg Tablet, 25 MG PO TID, (Reported) Lidocaine/Prilocaine (Lidocaine-Prilocaine Cream) 2.5%/2.5% Cream..g., 1 APLCT TOP 3XW, (Reported) MONDAY, MONDAY AND MONDAY PRIOR TO DIALYSIS Multivitamins (Thera M Plus Tablet) 1 Each Tablet, 1 TAB PO QHS, (Reported) Pravastatin Sodium (Pravastatin Sodium) 80 Mg Tablet, 80 MG PO QHS, (Reported) Sevelamer Carbonate (Sevelamer Carbonate) 800 Mg Tablet, 800 MG PO PC, (Reported) Ubidecarenone (Coenzyme Q10) 100 Mg Tablet, 100 MG PO QHS, (Reported) Scheduled PRN Sevelamer Carbonate (Renvela) 800 Mg Tablet, 800 MG PO ASDIRECTED PRN for AFTER SNACKS, (Reported) Allergies Coded Allergies: Htywimv-Esi-Gpp Reductase Inhibitor (Verified Adverse Reaction, Unknown, PAIN, 10/05/20) PT SAYS SHE CAN TAKE PRAVASTATIN HODA GUERRERO MD Oct 08, 2020 12:15
[2020-10-08] MEDS ORDERED: GABA-1171 PO (12:20)
--- NOTE | 2020-10-08 13:11 | IPN ---
PROGRESS NOTE DATE: 10/08/2020 SUBJECTIVE: Patient was seen and examined at the bedside today morning. She was sitting in the sofa. She denies any active complaint at this time. She was dialyzed yesterday. She was getting cramps during dialysis. We were not able to remove much fluid. We actually had to stop her dialysis after 2-1/2 hours. She denies any shortness of breath. Her only complaint is weakness, and she is requesting more physical therapy. OBJECTIVE: Vital signs: Temperature is 96.8 degrees Fahrenheit, blood pressure 144/59, pulse is 82, respiratory rate of 18, saturating 98% on nasal cannula at 2 liters. Intake and output: Urine output is not recorded. Ultrafiltration with hemodialysis was 200 mL yesterday. Weight in the bed scale is not available. PHYSICAL EXAMINATION: GENERAL: Patient is awake, alert, oriented times three, sitting up in the sofa in no apparent distress. HEAD AND NECK: Extraocular muscles are intact. Pupils equally round and reactive to light. Mucous membranes are moist. Neck is supple. There is no jugular venous distention (JVD). CARDIOVASCULAR: S1, S2, regular rate. No edema of the bilateral lower extremities. RESPIRATORY: Chest is clear to auscultation bilaterally. Bilateral equal air entry. No rales or rhonchi. ABDOMEN: Soft, obese. Positive bowel sounds. Nontender. No organomegaly. MUSCULOSKELETAL: No clubbing or cyanosis. Pulses are 2+. CENTRAL NERVOUS SYSTEM: No focal deficit. Power is 5/5 in all extremities. LABORATORY REVIEW: CBC showed a WBC of 5.5, hemoglobin 9.1, platelets 126. BMP showed sodium 139, potassium 4.1, chloride 101, bicarbonate 32, BUN 23, creatinine 5.1. CURRENT INPATIENT MEDICATIONS: Patient's medications were all reviewed by myself. No significant change in the medications today as compared with yesterday. ASSESSMENT AND PLAN: 1. End-stage renal disease. Patient was dialyzed yesterday. Volume status is optimal now. Next hemodialysis will be done tomorrow morning. 2. Chronic combined systolic and diastolic congestive heart failure. We were not able to remove much fluid during dialysis yesterday. I repeated the x-ray after dialysis, and it does not have any evidence of pulmonary edema. 3. Hypertension. Continue current dose of Coreg, amlodipine, and hydralazine. 4. Chronic kidney disease, mineral bone disease. Continue Renvela. DISPOSITION Patient is optimized from a nephrology standpoint to be discharged; however, she is requesting physical therapy, and medical team has requested acute rehabilitation unit (ARU) admission screening.
--- NOTE | 2020-10-08 13:49 | ECGEPIP ---
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 Could not rule out prior a anterior/inferior wall myocardial infarction No change from 10/05/20 Electronically Signed on 10-08-2020 13:49:25 EDT by Paul Hernandez
[2020-10-08 14:00] VITALS: BP 84/47
[2020-10-08] MEDS ORDERED: GABAPENTIN 100 MG CAP PO SCH ×2 (21:00)
== END 2020-10-08 14:54 | DRG 291 ==
LOC: M ED 15:40 → M ED INP 22:07 → ENRESERVDT 22:37 → ENRESERVTM 22:37 → M MSPAV 10-06 01:09
PROVIDERS: ADMIT Family Medicine; ATTEND Internal Medicine
PROC: 5A1D70Z Performance of Urinary Filtration, Intermittent, Less than 6 Hours Per Day (ICD-10-PCS; principal; 2020-10-05)
DX: I13.2 Hypertensive heart and chronic kidney disease with heart failure and with stage 5 chronic kidney disease, or end stage renal disease (principal); N18.6 End stage renal disease; I50.43 Acute on chronic combined systolic (congestive) and diastolic (congestive) heart failure; I69.351 Hemiplegia and hemiparesis following cerebral infarction affecting right dominant side; I25.10 Atherosclerotic heart disease of native coronary artery without angina pectoris; Z95.5 Presence of coronary angioplasty implant and graft; E11.22 Type 2 diabetes mellitus with diabetic chronic kidney disease; M48.061 Spinal stenosis, lumbar region without neurogenic claudication; Z99.2 Dependence on renal dialysis; I25.5 Ischemic cardiomyopathy; I69.328 Other speech and language deficits following cerebral infarction; E78.5 Hyperlipidemia, unspecified; D63.1 Anemia in chronic kidney disease; Z87.891 Personal history of nicotine dependence; Z20.822 Contact with and (suspected) exposure to COVID-19; Z79.899 Other long term (current) drug therapy; Z79.82 Long term (current) use of aspirin; Z79.4 Long term (current) use of insulin; Z88.8 Allergy status to other drugs, medicaments and biological substances; M81.0 Age-related osteoporosis without current pathological fracture; Z66 Do not resuscitate; Z91.19 Patient's noncompliance with other medical treatment and regimen; R07.89 Other chest pain; E11.42 Type 2 diabetes mellitus with diabetic polyneuropathy

== ENCOUNTER 2020-10-08 12:49 | Inpatient (IN) | payer MEDICARE, BC ==
[~2020-10-08] VITALS: Ht 165.1 cm; Wt 68.6 kg
[~2020-10-08 12:49] MED LIST changes: +OYST500T92 PO
[2020-10-08] MEDS ORDERED: (RENVELA) SEVELAMER **CARBONate** 800 MG TAB PO SCH (14:20)
[2020-10-08] MEDS ORDERED: DEXTROSE 50% 50 ML SYRINGE IV PRN (14:20)
[2020-10-08] MEDS ORDERED: GLUCOSE 4GM CHEW TABLET PO PRN (14:20)
[2020-10-08] MEDS ORDERED: GLUCAGON INJ 1MG VIAL SC PRN (14:20)
[2020-10-08] MEDS ORDERED: MAALOX 30 ML SUSP *UDC PO PRN (14:20)
[2020-10-08 14:55] VITALS: BP 144/64
--- NOTE | 2020-10-08 14:58 | HPEPDOC ---
Television Anchor Note DATE OF ADMISSION: 10-08-20 DATE OF SERVICE: 10-09-20 TIME OF ADMISSION: Please refer to physician's admission order. SOURCE OF ADMISSION INFORMATION: patient and [facility] records CHIEF COMPLAINT: weakness in setting of CHF exacerbation HISTORY OF PRESENT ILLNESS: 75F pmh ESRD on HD, CAD s/p CABG, DM with peripheral polyneuropathy, chronic systolic and diastolic CHF, CVA with right sided paresis, HTN, spinal stenosis, HLD, anemia of chronic disease, bilateral bronchiectasis who developed worsening shortness of breath and weakness and presented to [facility] ED on 10-05-20 where she was diagnosed with CHF exacerbation. Chest XRay revealed, CHF pattern with suspect small bilateral effusions, cardiomegaly and vascular congestion and her BNP was elevated to 19,600. She was place don a fluid restriction, diuresed in dialysis, however had low blood pressures sop it was difficult to remove a lot of fluid. She required supplemental oxygen and had persistent weakness in therapy with mobility and ADL impairments and deemed medically appropriate for discharge to ARU on 10-08-20. REVIEW OF SYSTEMS: The following is a completed review of systems and has been reviewed. Review of systems otherwise unremarkable. PAIN: Patient self reports no pain EYES: No recent vision changes EARS, NOSE, & THROAT: No throat pain, or dysphagia, or rhinorrhea CARDIOVASCULAR: Denies chest pain or palpitations PULMONARY: Denies shortness of breath GASTROINTESTINAL: Denies constipation/diarrhea GENITOURINARY: oliguric MUSCULOSKELETAL: generalized weakness NEUROLOGICAL:+peripheral polyneuropathy HEMATOLOGICAL: +anemic SKIN: denies rash PSYCHIATRIC: Unremarkable All other review of systems found to be negative. PAST MEDICAL HISTORY: as per HPI PAST SURGICAL HISTORY: AVF, lumbar laminectomy 2008 ALLERGIES: Please see below. MEDICATIONS: Please see below. SOCIAL HISTORY: Former smoker, no etoh/illicit drugs DIET: low sodium, consistent carb PHYSICAL EXAMINATION: VITAL SIGNS: Please see below. GENERAL: Pleasant and cooperative. No acute distress. HEENT: PERRL. Extraocular movements intact. Clear conjunctiva CARDIOVASCULAR: Regular rate and rhythm. No murmurs, rubs, or gallops LUNGS: Clear to auscultation bilaterally. No wheezes. No rhonchi ABDOMEN: Soft, nontender, nondistended. Positive bowel sounds. Normal active bowel sounds NEUROLOGICAL: Alert and oriented times three. Cranial nerves II through XII grossly intact. Sensation diminished to light touch in bilateral stocking patter EXTREMITIES: 5-\5 strength bilateral upper extremities. 4+\5 strength right lower extremity. 5/5 strength in left lower extremity. LABORATORY DATA: Please see below. IMAGING:Imaging documentation personally reviewed by record FUNCTIONAL STATUS: Premorbid: Mod-Independent with all activities of daily life as well as mobility On Admission: Min assist for bed mobility, functional transfers, ambulation, dressing, toileting GOALS: Mod-I for bed mobility, functional transfers, ambulation, dressing, toileting, bathing ASSESSMENT:75-year-old F with past medical history of ESRD on HD, hx of previous stroke with right sided weakness who presents status post worsening weakness in setting of CHF exacerbation PLAN: 1. Rehab- PT/OT advance mobility and ADLs, strengthen/stretch/maintain ROM all 4 limbs 2. Neuro- patient with diabetic peripheral polyneuropathy which is contributing to her overall gait and mobility impairments -hx of stroke with right sided weakness cont secondary stroke management 3. Cardiac- Hx of chronic systolic-diastolic CHF with recent exacerbation- fluid restrict, daily weights, fluid managed primarily by renal docs and dialysis -HTN- cont BP meds -CAD s/p CABG cont asa and coreg -HLD- cont statin -medicine consulted to assist in overall management 4. Resp- on home 02 with hx of bronchiectasis, patient requesting inhaler treatments, will start combivent -monitor for infection 5. Renal- ESRD on HD, renal consulted -cont sevelamer for phosphate management 6. Endo- hx of diabetes with peripheral polyneuropathy- cont insulin and c onsistent carb diet 7. Pain- tylenol prn, bengay 8. Dispot- TBD POST ADMISSION PHYSICIAN EVALUATION: Medical and functional status: Description of medical status, medical assessment: As above. Rehabilitation diagnosis and current and prior cold morbid medical conditions as above. Risk of complications and plans to mitigate them as above. Description of functional status current status is as above. Prior status as above. Status compared to preadmission: There are no clinically significant differences between the patient's current status and the information described on the preadmission screening document. Treatment plan anticipated: Treatment plan is as described above. Required dis ciplines including physical therapy, occupational therapy, others as noted above. Intensity of services: 3 hours a day, 6 days a week. Special considerations: There are no specific special or safety considerations that would likely preclude immediate implementation of an intensive rehabilitation program or subsequently influence the plan of care. ATTESTATION: Considering all the information above, it is my best judgment that this patient requires intensive rehabilitation therapy as described above and an inpatient hospital environment due to the complexity of nursing, medical, and rehabilitation needs required by the patient. Furthermore, this patient can reasonably be expected to participate in an benefit from an inpatient rehabilitation stay with an interdisciplinary team approach to the delivery of rehabilitation care under the direction and supervision of rehabilitation physician PROGNOSIS: Excellent ESTIMATED LENGTH OF STAY:10-14 days. PROJECTED DISCHARGE DESTINATION: Home with family support and any durable medical equipment required to increase functional safety and mobility TIME SPENT COUNSELING AND COORDINATING INITIAL CARE: Greater than 70 minutes. Vital Signs Vital Signs Date Time Temp Pulse Resp B/P (MAP) Pulse Ox O2 Delivery O2 Flow Rate FiO2 10/08/20 14:55 97.6 86 18 144/64 (90) 97 Room Air Home Medications Scheduled Amlodipine Besylate (Amlodipine Besylate) 5 Mg Tablet, 5 MG PO QHS, (Reported) Aspirin (Aspirin EC) 81 Mg Tablet.dr, 81 MG PO QHS, (Reported) Calcium Carbonate/Vitamin D3 (Calcium 500-Vit D3 200 Tablet) 1 Each Tablet, 1 TAB PO QHS, (Reported) Carvedilol (Carvedilol) 12.5 Mg Tablet, 12.5 MG PO BID, (Reported) Denosumab Injection (Prolia) 60 Mg/1 Ml Syringe, 60 MG SC ASDIRECTED, (Reported) EVERY SIX MONTHS Gabapentin (Gabapentin) 100 Mg Capsule, 100 MG PO QHS Hydralazine HCl (Hydralazine HCl) 25 Mg Tablet, 25 MG PO TID, (Reported) Lidocaine/Prilocaine (Lidocaine-Prilocaine Cream) 2.5%/2.5% Cream..g., 1 APLCT TOP 3XW, (Reported) MONDAY, MONDAY AND MONDAY PRIOR TO DIALYSIS Multivitamins (Thera M Plus Tablet) 1 Each Tablet, 1 TAB PO QHS, (Reported) Pravastatin Sodium (Pravastatin Sodium) 80 Mg Tablet, 80 MG PO QHS, (Reported) Sevelamer Carbonate (Sevelamer Carbonate) 800 Mg Tablet, 800 MG PO PC, (Reported) Ubidecarenone (Coenzyme Q10) 100 Mg Tablet, 100 MG PO QHS, (Reported) Scheduled PRN Sevelamer Carbonate (Renvela) 800 Mg Tablet, 800 MG PO ASDIRECTED PRN for AFTER SNACKS, (Reported) Allergies Coded Allergies: Bgeiioj-Ici-Esn Reductase Inhibitor (Verified Adverse Reaction, Unknown, PAIN, 10/05/20) PT SAYS SHE CAN TAKE PRAVASTATIN A-FIB/CHADSVASC A-FIB History Current/History of A-Fib/PAF?: No Current PO Anticoag Therapy: No GURMEET SOLORZANO MD Oct 08, 2020 14:58
[2020-10-08] MEDS ORDERED: HOME MED LIST COMPLETE! XX SCH (15:10)
[2020-10-08] MEDS: **hydrALAZINE HCL** 25 MG TAB PO SCH ×2 (15:44→20:11)
[2020-10-08] MEDS: HumaLOG INSULIN (NovoLOG) PER UNIT SC SCH ×2 (17:13→21:00)
[2020-10-08] MEDS: (RENVELA) SEVELAMER **CARBONate** 800 MG TAB PO SCH (17:13)
[2020-10-08] MEDS: CO-ENZYME Q10 50 MG CAP PO SCH (20:10)
[2020-10-08] MEDS: PRAVASTATIN 20 MG TAB PO SCH (20:11)
[2020-10-08] MEDS: ASPIRIN 81MG ENTERIC TABLET PO SCH (20:11)
[2020-10-08] MEDS: MULTIVITAMINS/MINERALS THERAP 1 TAB PO SCH (20:11)
[2020-10-08] MEDS: amLODIPine 5 MG TAB PO SCH (20:12)
[2020-10-08] MEDS: CALCIUM/VITAMIN D 500 MG TAB PO SCH (20:12)
[2020-10-08] MEDS: CARVedilol 12.5 MG TAB PO SCH (20:12)
[2020-10-08] MEDS: SENNA 8.6 MG TAB (SENOKOT) PO SCH (20:12)
[2020-10-08] MEDS: DOCUSATE SODIUM 100MG CAPSULE PO SCH (20:12)
[2020-10-08] MEDS: ANALGESIC BALM CRM 3OZ TOP SCH (20:12)
[2020-10-08 21:31] VITALS: BP 168/64
[2020-10-08] MEDS ORDERED: PERCOCET 5MG/325MG TAB PO ONE (21:50)
[2020-10-08 22:00] VITALS: BP 172/74
[2020-10-09 06:00] VITALS: BP 150/69
[2020-10-09 06:53] LABS: BASO % 0.3 % (0.0-1.0); EOS # 0.1 10^3/uL (0.0-0.5); EOS % 2.2 % (0.0-3.0); HEMATOCRIT 29.2 % (36.0-47.0); HEMOGLOBIN 8.9 g/dl (12.0-15.5); LYMPH % 15.9 % (24.0-44.0); MEAN CORPUSCULAR HEMOGLOBIN 28.9 pg (27.0-33.0); MEAN CORPUSCULAR HGB CONC 30.5 g/dl (32.0-36.5); MEAN CORPUSCULAR VOLUME 94.8 fl (80.0-96.0); MONO # 0.6 10^3/uL (0.0-0.8); MONO % 10.7 % (2.0-8.0); NEUTROPHILS # 4.2 10^3/uL (1.5-8.5); NEUTROPHILS % 69.9 % (36.0-66.0); PLATELET COUNT, AUTOMATED 127 10^3/uL (150-450); RED BLOOD COUNT 3.08 10^6/uL (4.00-5.40)
[2020-10-09 07:26] LABS: ALBUMIN 2.8 GM/DL (3.2-5.2); BILIRUBIN,TOTAL 0.2 MG/DL (0.2-1.0); CALCIUM LEVEL 8.6 MG/DL (8.8-10.2); CREATININE FOR GFR 7.48 MG/DL (0.55-1.30); GLOMERULAR FILTRATION RATE 6.9 (>39); POTASSIUM SERUM 4.7 MEQ/L (3.5-5.1)
[2020-10-09] MEDS: HumaLOG INSULIN (NovoLOG) PER UNIT SC SCH ×4 (08:08→21:58)
[2020-10-09] MEDS: (RENVELA) SEVELAMER **CARBONate** 800 MG TAB PO SCH ×3 (08:08→17:27)
[2020-10-09] MEDS: PANTOPRAZOLE 40MG TAB (PROTONIX) PO SCH (08:09)
[2020-10-09] MEDS: **hydrALAZINE HCL** 25 MG TAB PO SCH ×3 (08:12→20:32)
[2020-10-09] MEDS: DOCUSATE SODIUM 100MG CAPSULE PO SCH ×2 (08:12→20:32)
[2020-10-09] MEDS: ANALGESIC BALM CRM 3OZ TOP SCH ×2 (08:13→20:36)
[2020-10-09] MEDS ORDERED: LIDOCAINE 1% SDV 5ML VIAL SC PRN (08:20)
[2020-10-09] MEDS: EMLA CREAM 5GM TUBE (LIDOCAINE/PRILOCAINE) TOP SCH (12:04)
[2020-10-09] MEDS: IRON SUCROSE 100MG 5ML VIAL (J1756 PER 1MG) IV SCH (13:35)
[2020-10-09 14:00] VITALS: BP 161/68
[2020-10-09] MEDS: COMBIVENT RESPIMAT 100-20MCG INHALER 4GM INH SCH ×2 (15:36→19:41)
[2020-10-09] MEDS: LORATADINE 10 MG TAB PO SCH (16:39)
--- NOTE | 2020-10-09 17:21 | IPNPDOC ---
Text Note Date of Service The patient was seen on 10/09/20. NOTE SUBJECTIVE: -I discharged Ms. Acosta to the ARU yesterday from inpatient medicine after an admission for a CHF exacerbation that improved after daily HD sessions and reaching clinical euvolemia. She unfortunately had weakness and difficulty ambulating with complaints c/w peripheral neuropathy. This morning she is doing well, weak but motivated and working well with PT/OT. OBJECTIVE: VITAL SIGNS: please see below General: NAD, comfortable HEENT: PERRLA, EOMI, sclerae clear Neck: supple, normal ROM, no JVD Respiratory: Diminished with bibasilar crackles heard in posterior lung limon, otherwise no wheezing CVS: RRR, normal S1, S2, no murmurs Abdo: soft, normoactive bowel sounds, soft, NTND Extremities: no edema, WWP MSK: no joint deformities, normal ROM Neuro: no focal neuro deficits, moving all 4 extremities, CN3-12 intact. 5/5 strength in all 4 extremities Psych: calm, cooperative, AAO x 3 LABORATORY DATA: Reviewed IMAGING: CXR (10/05/20): CHF pattern with suspect small bilateral effusions, cardiomegaly and vascular congestion. Right upper lobe granuloma. Prior sternotomy. MICROBIOLOGY: Please see below. ASSESSMENT: 75-year-old W with coronary artery disease status post CABG, chronic heart failure with reduced ejection fraction, CVA with residual right hemiparesis and slurred speech, type 2 diabetes, hypertension, spinal stenosis, ESRD on dialysis MWF who presented with worsening shortness of breath and tightness across her chest, as well as orthopnea and paroxysmal nocturnal dyspnea and found to have an elevated BNP of 19,600 in the ER and chest x-ray consistent with fluid overload and admitted to [facility] for management of acute congestive heart failure exacerbation. PLAN: #HFrEF exacerbation: Last Echo 04/05/20, LVEF 40%. Now clinically euvolemic -HD per nephrology -Fluid restrict to 1800 cc/day. -strict I/Os -daily weights -2g sodium, renal diet # ESRD on HD MWF since 2016: -Management per nephrology. # Weakness, Debility uses a rolling walke with a history of Spinal stenosis s/p lumbar laminectomy: prior CVA, R sided residual weakness. -PT/OT ordered. -ARU screen # HTN: BP well controlled. -Continue home regimen of Amlodipine, Carvedilol, Hydralazine. # CAD s/p CABG: -c/w ASA and pravastatin # hx CVA: -c/w ASA and pravastatin # DM: c/b neuropathy -ISS AC/HS. 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
[2020-10-09 20:00] VITALS: BP 150/70
[2020-10-09] MEDS: MULTIVITAMINS/MINERALS THERAP 1 TAB PO SCH (20:32)
[2020-10-09] MEDS: SENNA 8.6 MG TAB (SENOKOT) PO SCH (20:32)
[2020-10-09] MEDS: amLODIPine 5 MG TAB PO SCH (20:32)
[2020-10-09] MEDS: CO-ENZYME Q10 50 MG CAP PO SCH (20:33)
[2020-10-09] MEDS: ASPIRIN 81MG ENTERIC TABLET PO SCH (20:33)
[2020-10-09] MEDS: CALCIUM/VITAMIN D 500 MG TAB PO SCH (20:33)
[2020-10-09] MEDS: CARVedilol 12.5 MG TAB PO SCH (20:33)
[2020-10-09] MEDS: PRAVASTATIN 20 MG TAB PO SCH (20:33)
[2020-10-09] MEDS: LEVEMIR (INSULIN DETEMIR) 1 UNITS/0.01ML SC SCH (22:41)
--- NOTE | 2020-10-10 00:08 | IPN ---
NEPHROLOGY PROGRESS NOTE DATE: 10/09/2020 SUBJECTIVE: Patient was seen and examined today morning in the rehab unit. She was getting ready to do her physical therapy when I saw her. She denies any active complaints apart from muscle weakness. Today is patient's regular day of dialysis. OBJECTIVE: VITAL SIGNS: Temperature 97.2 degrees Fahrenheit, blood pressure 150/70, pulse 91, respiratory rate 18, saturating 97% on room air. INTAKE/OUTPUT: Urine output is not recorded. Weight in the bed scale is 69.6 kg. PHYSICAL EXAMINATION: GENERAL: Patient is awake, alert and oriented x3, sitting up in the wheelchair in no apparent distress. HEAD/NECK: Extraocular muscles intact. Pupils equally round and reactive to light. Mucous membranes are moist. Neck is supple. There is no JVD. CVS: S1, S2, regular rate. No edema of the bilateral lower extremities. RESPIRATORY: Mildly decreased breath sounds at the bases with inspiratory crackles. ABDOMEN: Soft, positive bowel sounds, nontender. No organomegaly. MUSCULOSKELETAL: No clubbing or cyanosis. LOOP PULLER: No focal deficit at this time. LABORATORY REVIEW: CBC showed WBC 6, hemoglobin 8.9, platelets 127,000. BMP showed sodium 139, potassium 4.7, chloride 104, bicarb 29, BUN 49, creatinine 7.48. CURRENT INPATIENT MEDICATIONS: Patient's medications were all reviewed by myself. I have restarted the patient on Aranesp with dialysis 100 mcg and I have also ordered Venofer 100 mg times three doses. ASSESSMENT AND PLAN: 1. End-stage renal disease: Patient will be dialyzed today and ultrafiltration goal will be around 1.5 to 2 kg as tolerated by her blood pressure. 2. Chronic systolic congestive heart failure: Continue current antihypertensive regimen. Volume status is optimized with dialysis. 3. Hypertension: Continue Amlodipine, Coreg and Hydralazine with holding parameters. 4. Chronic kidney disease/mineral bone disease: Continue current dose of Renvela.
[2020-10-10] MEDS: ACETAMINOPHEN TAB 650MG DOSE (2X325MG) PO PRN (05:37)
[2020-10-10 06:00] VITALS: BP 160/78
[2020-10-10] MEDS: PANTOPRAZOLE 40MG TAB (PROTONIX) PO SCH (08:21)
[2020-10-10] MEDS: DOCUSATE SODIUM 100MG CAPSULE PO SCH ×2 (08:21→21:18)
[2020-10-10] MEDS: LORATADINE 10 MG TAB PO SCH (08:21)
[2020-10-10] MEDS: **hydrALAZINE HCL** 25 MG TAB PO SCH ×3 (08:21→21:19)
[2020-10-10] MEDS: HumaLOG INSULIN (NovoLOG) PER UNIT SC SCH ×4 (08:21→21:00)
[2020-10-10] MEDS: (RENVELA) SEVELAMER **CARBONate** 800 MG TAB PO SCH ×3 (08:21→16:58)
[2020-10-10] MEDS: ANALGESIC BALM CRM 3OZ TOP SCH ×2 (08:22→21:21)
[2020-10-10] MEDS: COMBIVENT RESPIMAT 100-20MCG INHALER 4GM INH SCH ×3 (08:59→20:23)
[2020-10-10 14:00] VITALS: BP 159/72
[2020-10-10 20:00] VITALS: BP 146/68
[2020-10-10] MEDS: CO-ENZYME Q10 50 MG CAP PO SCH (21:18)
[2020-10-10] MEDS: MULTIVITAMINS/MINERALS THERAP 1 TAB PO SCH (21:18)
[2020-10-10] MEDS: SENNA 8.6 MG TAB (SENOKOT) PO SCH (21:18)
[2020-10-10] MEDS: CALCIUM/VITAMIN D 500 MG TAB PO SCH (21:18)
[2020-10-10] MEDS: ASPIRIN 81MG ENTERIC TABLET PO SCH (21:18)
[2020-10-10] MEDS: PRAVASTATIN 20 MG TAB PO SCH (21:18)
[2020-10-10] MEDS: CARVedilol 12.5 MG TAB PO SCH (21:19)
[2020-10-10] MEDS: amLODIPine 5 MG TAB PO SCH (21:19)
[2020-10-10] MEDS: LEVEMIR (INSULIN DETEMIR) 1 UNITS/0.01ML SC SCH (21:21)
[2020-10-11 06:00] VITALS: BP 140/80
[2020-10-11] MEDS: (RENVELA) SEVELAMER **CARBONate** 800 MG TAB PO SCH ×3 (08:10→16:54)
[2020-10-11] MEDS: DOCUSATE SODIUM 100MG CAPSULE PO SCH ×2 (08:10→20:46)
[2020-10-11] MEDS: LORATADINE 10 MG TAB PO SCH (08:10)
[2020-10-11] MEDS: **hydrALAZINE HCL** 25 MG TAB PO SCH ×3 (08:11→20:46)
[2020-10-11] MEDS: PANTOPRAZOLE 40MG TAB (PROTONIX) PO SCH (08:11)
[2020-10-11] MEDS: HumaLOG INSULIN (NovoLOG) PER UNIT SC SCH ×4 (08:11→20:47)
[2020-10-11] MEDS: ANALGESIC BALM CRM 3OZ TOP SCH ×2 (08:11→20:53)
[2020-10-11] MEDS: COMBIVENT RESPIMAT 100-20MCG INHALER 4GM INH SCH ×3 (08:33→19:26)
[2020-10-11] MEDS: ACETAMINOPHEN TAB 650MG DOSE (2X325MG) PO PRN ×3 (09:06→22:56)
[2020-10-11 14:00] VITALS: BP 160/78
[2020-10-11 20:00] VITALS: BP 160/82
[2020-10-11] MEDS: amLODIPine 5 MG TAB PO SCH (20:45)
[2020-10-11] MEDS: LEVEMIR (INSULIN DETEMIR) 1 UNITS/0.01ML SC SCH (20:45)
[2020-10-11] MEDS: PRAVASTATIN 20 MG TAB PO SCH (20:46)
[2020-10-11] MEDS: CALCIUM/VITAMIN D 500 MG TAB PO SCH (20:46)
[2020-10-11] MEDS: CO-ENZYME Q10 50 MG CAP PO SCH (20:46)
[2020-10-11] MEDS: SENNA 8.6 MG TAB (SENOKOT) PO SCH (20:46)
[2020-10-11] MEDS: MULTIVITAMINS/MINERALS THERAP 1 TAB PO SCH (20:46)
[2020-10-11] MEDS: ASPIRIN 81MG ENTERIC TABLET PO SCH (20:46)
[2020-10-11] MEDS: CARVedilol 12.5 MG TAB PO SCH (20:46)
[2020-10-12] MEDS: ACETAMINOPHEN TAB 650MG DOSE (2X325MG) PO PRN (05:40)
[2020-10-12 06:00] VITALS: BP 168/78
[2020-10-12] MEDS ORDERED: LIDOCAINE 1% SDV 5ML VIAL SC PRN (06:00)
[2020-10-12] MEDS: COMBIVENT RESPIMAT 100-20MCG INHALER 4GM INH SCH ×3 (07:10→19:27)
[2020-10-12 08:01] LABS: BASO % 0.5 % (0.0-1.0); EOS # 0.2 10^3/uL (0.0-0.5); EOS % 2.8 % (0.0-3.0); HEMATOCRIT 30.5 % (36.0-47.0); HEMOGLOBIN 9.3 g/dl (12.0-15.5); LYMPH # 0.9 10^3/uL (1.5-5.0); LYMPH % 15.3 % (24.0-44.0); MEAN CORPUSCULAR HEMOGLOBIN 28.4 pg (27.0-33.0); MEAN CORPUSCULAR HGB CONC 30.5 g/dl (32.0-36.5); MEAN CORPUSCULAR VOLUME 93.3 fl (80.0-96.0); MONO # 0.7 10^3/uL (0.0-0.8); MONO % 10.7 % (2.0-8.0); NEUTROPHILS # 4.3 10^3/uL (1.5-8.5); NEUTROPHILS % 70.2 % (36.0-66.0); PLATELET COUNT, AUTOMATED 117 10^3/uL (150-450); RED BLOOD COUNT 3.27 10^6/uL (4.00-5.40); WHITE BLOOD COUNT 6.1 10^3/uL (4.0-10.0)
[2020-10-12 08:24] LABS: CALCIUM LEVEL 9.2 MG/DL (8.8-10.2); CREATININE FOR GFR 9.04 MG/DL (0.55-1.30); GLOMERULAR FILTRATION RATE 5.5 (>39); POTASSIUM SERUM 5.3 MEQ/L (3.5-5.1)
[2020-10-12] MEDS: PANTOPRAZOLE 40MG TAB (PROTONIX) PO SCH (09:02)
[2020-10-12] MEDS: DOCUSATE SODIUM 100MG CAPSULE PO SCH ×2 (09:02→20:37)
[2020-10-12] MEDS: HumaLOG INSULIN (NovoLOG) PER UNIT SC SCH ×4 (09:02→20:38)
[2020-10-12] MEDS: (RENVELA) SEVELAMER **CARBONate** 800 MG TAB PO SCH ×3 (09:02→17:18)
[2020-10-12] MEDS: LORATADINE 10 MG TAB PO SCH (09:03)
[2020-10-12] MEDS: **hydrALAZINE HCL** 25 MG TAB PO SCH ×3 (09:07→20:36)
[2020-10-12] MEDS: EMLA CREAM 5GM TUBE (LIDOCAINE/PRILOCAINE) TOP SCH (09:11)
[2020-10-12] MEDS: ANALGESIC BALM CRM 3OZ TOP SCH ×2 (09:12→20:37)
[2020-10-12] MEDS: ONDANSETRON 4 MG ORAL DISINTEGRATING TAB PO PRN (10:49)
[2020-10-12] MEDS: DARBEPOETIN 100 MCG/0.5 ML *DIALYSIS* SYRINGE (J0882) IV SCH (13:11)
[2020-10-12] MEDS: IRON SUCROSE 100MG 5ML VIAL (J1756 PER 1MG) IV SCH (14:13)
[2020-10-12 16:37] VITALS: BP 130/74
[2020-10-12 20:00] VITALS: BP 150/78
[2020-10-12] MEDS: CALCIUM/VITAMIN D 500 MG TAB PO SCH (20:35)
[2020-10-12] MEDS: ASPIRIN 81MG ENTERIC TABLET PO SCH (20:35)
[2020-10-12] MEDS: CARVedilol 12.5 MG TAB PO SCH (20:35)
[2020-10-12] MEDS: MULTIVITAMINS/MINERALS THERAP 1 TAB PO SCH (20:36)
[2020-10-12] MEDS: CO-ENZYME Q10 50 MG CAP PO SCH (20:36)
[2020-10-12] MEDS: PRAVASTATIN 20 MG TAB PO SCH (20:36)
[2020-10-12] MEDS: amLODIPine 5 MG TAB PO SCH (20:36)
[2020-10-12] MEDS: SENNA 8.6 MG TAB (SENOKOT) PO SCH (20:37)
[2020-10-12] MEDS: LEVEMIR (INSULIN DETEMIR) 1 UNITS/0.01ML SC SCH (20:37)
--- NOTE | 2020-10-12 21:14 | IPN ---
PROGRESS NOTE DATE: 10/12/2020 SUBJECTIVE: Bree is seen and examined this afternoon in the hemodialysis unit receiving her treatment. She reports rehabilitation has been uneventful. She states she has an anticipated discharge date for October 15, 1.5 liters was removed with dialysis today. Patient denies any shortness of breath. PHYSICAL EXAMINATION: VITAL SIGNS: Temperature 97.4, pulse 81, respiratory rate 18, blood pressure 130/74, saturating 95% on room air. INTAKE/OUTPUT: Intake yesterday was 1.1 liter. Dialysis removed 1.5 liters. GENERAL: Patient seen awake, alert, oriented, receiving her treatment, in no distress. HEENT: Extraocular muscles are intact. Tongue is moist. Neck is supple. Jugular veins are not elevated. HEART: Heart sounds are regular, S1, S2. There is no leg edema. RESPIRATORY: Show symmetric breath sounds without any rhonchus or wheeze. There is no accessory muscle use. ABDOMEN: Soft and nontender. EXTREMITIES: Negative for edema. There is a fistula in the left arm, which is presently in use. NEUROLOGIC: She is oriented x3, at baseline mentation. LABORATORY DATA: White count 6.1, hemoglobin 9.3, platelets 117,000. Sodium 133, potassium 5.3, BUN 70, creatinine 9.0. INPATIENT MEDICATIONS: Reviewed by myself and no changes are noted over the past couple of days with the exception that she was started on Zofran. PROBLEMS: 1. End-stage renal disease on hemodialysis on Monday, Monday, Monday schedule: Patient was dialyzed today 1.5 liters were removed. Her electrolytes and volume status are acceptable. Her fistula is in good use. Next dialysis treatment will be on Monday. 2. Chronic systolic congestive heart failure: Volume status is optimized via hemodialysis. She is on room air at the time of my visit. She also continues on the usual aspirin, statin and beta-shante therapy. 3. Anemia of chronic renal failure: Hemoglobin is suboptimal, most recent CBC shows hemoglobin 9.3. She continues on Aranesp with dialysis along with Venofer as well. 4. Hypertension: Blood pressures are well controlled on her current regimen and I made no changes. l
[2020-10-13 06:00] VITALS: BP 156/67
[2020-10-13] MEDS: COMBIVENT RESPIMAT 100-20MCG INHALER 4GM INH SCH ×3 (07:09→20:34)
[2020-10-13] MEDS: HumaLOG INSULIN (NovoLOG) PER UNIT SC SCH ×4 (07:24→21:00)
[2020-10-13] MEDS: (RENVELA) SEVELAMER **CARBONate** 800 MG TAB PO SCH ×3 (07:24→17:26)
[2020-10-13] MEDS: LORATADINE 10 MG TAB PO SCH (07:25)
[2020-10-13] MEDS: DOCUSATE SODIUM 100MG CAPSULE PO SCH ×2 (07:25→21:14)
[2020-10-13] MEDS: PANTOPRAZOLE 40MG TAB (PROTONIX) PO SCH (07:25)
[2020-10-13] MEDS: **hydrALAZINE HCL** 25 MG TAB PO SCH ×3 (07:27→21:15)
[2020-10-13] MEDS: ANALGESIC BALM CRM 3OZ TOP SCH ×2 (07:27→21:16)
--- NOTE | 2020-10-13 10:35 | IPNPDOC ---
PM&R Progress Note DATE OF SERVICE: Oct 13, 2020 [employer] Progress Note Subjective: Patient reporting she is moving worse today in therapy because she feels sore and would like to take her hydrocodone which she takes at home. She is also requesting a sleeping pill. REVIEW OF SYSTEMS: The following is a completed review of systems and has been reviewed. Review of systems otherwise unremarkable. PAIN: Patient self reports no pain EYES: No recent vision changes EARS, NOSE, & THROAT: No throat pain, or dysphagia, or rhinorrhea CARDIOVASCULAR: Denies chest pain or palpitations PULMONARY: Denies shortness of breath GASTROINTESTINAL: Denies constipation/diarrhea GENITOURINARY: oliguric MUSCULOSKELETAL: generalized weakness NEUROLOGICAL:+peripheral polyneuropathy HEMATOLOGICAL: +anemic SKIN: denies rash PSYCHIATRIC: Unremarkable All other review of systems found to be negative. PHYSICAL EXAMINATION: VITAL SIGNS: Please see below. GENERAL: Pleasant and cooperative. No acute distress. HEENT: PERRL. Extraocular movements intact. Clear conjunctiva CARDIOVASCULAR: Regular rate and rhythm. No murmurs, rubs, or gallops LUNGS: Clear to auscultation bilaterally. No wheezes. No rhonchi ABDOMEN: Soft, nontender, nondistended. Positive bowel sounds. Normal active bowel sounds NEUROLOGICAL: Alert and oriented times three. Cranial nerves II through XII grossly intact. Sensation diminished to light touch in bilateral stocking patter EXTREMITIES: 5-\5 strength bilateral upper extremities. 4+\5 strength right lower extremity. 5/5 strength in left lower extremity. ASSESSMENT:75-year-old F with past medical history of ESRD on HD, hx of previous stroke with right sided weakness who presents status post worsening weakness in setting of CHF exacerbation PLAN: 1. Rehab- PT/OT advance mobility and ADLs, strengthen/stretch/maintain ROM all 4 limbs, ambulating with RW 2. Neuro- patient with diabetic peripheral polyneuropathy which is contributing to her overall gait and mobility impairments -hx of stroke with right sided weakness cont secondary stroke management 3. Cardiac- Hx of chronic systolic-diastolic CHF with recent exacerbation- fluid restrict, daily weights, fluid managed primarily by renal docs and dialysis -HTN- cont BP meds -CAD s/p CABG cont asa and coreg -HLD- cont statin -medicine consulted to assist in overall management 4. Resp- on home 02 with hx of bronchiectasis, patient requesting inhaler treatments, will start combivent -monitor for infection 5. Renal- ESRD on HD, renal consulted -cont sevelamer for phosphate management 6. Endo- hx of diabetes with peripheral polyneuropathy- cont insulin and consistent carb diet 7. Pain- tylenol prn, norco prn, and bengay 8. Psych- trazodone for insomnia 9. Dispot- TBD Allergies Coded Allergies: Cnjmurq-Ekj-Jff Reductase Inhibitor (Verified Adverse Reaction, Unknown, PAIN, 10/05/20) PT SAYS SHE CAN TAKE PRAVASTATIN Vital Signs Vital Signs Date Time Temp Pulse Resp B/P (MAP) Pulse Ox O2 Delivery O2 Flow Rate FiO2 10/13/20 07:27 138/64 10/13/20 06:00 97.7 84 16 100 Room Air 10/12/20 20:00 4.0 Laboratory Data Labs 24H Laboratory Tests 2 10/12/20 11:47: Bedside Glucose (Misc Panel) 176H 10/12/20 16:53: Bedside Glucose (Misc Panel) 110 10/12/20 19:31: Bedside Glucose (Misc Panel) 140H 10/13/20 05:36: Bedside Glucose (Misc Panel) 126H Current Medications Current Medications Current Medications Medications (Trade) Dose Ordered Sig/Jessica Route PRN Reason Start Time Stop Time Status Last Admin Dose Admin Acetaminophen (Tylenol Tab) 650 mg Q4HP PRN PO fever/MILD PAIN (PS 1-4) 10/08/20 14:20 10/12/20 05:40 Al Hydrox/Mg Hydrox/Simethicone (Mylanta) 30 ml Q4HP PRN PO DYSPEPSIA 10/08/20 14:20 Albuterol/ Ipratropium (Combivent Respimat 100-20mcg) 1 puff RTID INH 10/09/20 14:00 10/12/20 19:27 Amlodipine Besylate (Norvasc) 5 mg QHS PO 10/08/20 21:00 10/12/20 20:36 Aspirin (Ecotrin) 81 mg QHS PO 10/08/20 21:00 10/12/20 20:35 Calcium/Vitamin D (Oscal D) 500 mg QHS PO 10/08/20 21:00 10/12/20 20:35 Carvedilol (COReg) 12.5 mg QHS PO 10/08/20 21:00 10/12/20 20:35 Coenzyme Q10 (Coenzyme Q10) 100 mg QHS PO 10/08/20 21:00 11/07/20 20:59 10/12/20 20:36 Darbepoetin Issac (Aranesp (Dialysis Use)) 100 mcg HD IV 10/09/20 10:00 10/12/20 13:11 Dextrose (Dextrose 50%) 25 ml ASDIRECTED PRN IV SEE LABEL COMMENTS 10/08/20 14:20 Docusate Sodium (Colace) 100 mg BID PO 10/08/20 21:00 10/13/20 07:25 Glucagon (Glucagon) 1 mg ASDIRECTED PRN SC SEE LABEL COMMENTS 10/08/20 14:20 Glucose (Glucose) 16 GM ASDIRECTED PRN PO SEE LABEL COMMENTS 10/08/20 14:20 Heparin Sodium (Heparin) Please refer to ... ASDIRECTED XX 10/09/20 08:20 10/10/20 08:19 DC Heparin Sodium (Heparin) Please refer to ... ASDIRECTED XX 10/12/20 06:00 10/13/20 05:59 DC Home Med (Home Med List Complete!) ASDIRECTED XX 10/08/20 15:10 10/08/20 15:09 DC Hydralazine HCl (Apresoline) 25 mg TID PO 10/08/20 16:00 10/13/20 07:27 Insulin Detemir (Levemir Insulin) 5 units DAILY@2100 SC 10/09/20 21:00 10/12/20 20:37 Insulin Human Lispro (HumaLOG INSULIN) SEE PROTOCOL TABLE AC SC 10/08/20 17:30 10/13/20 07:24 Insulin Human Lispro (HumaLOG INSULIN) SEE PROTOCOL TABLE QHS SC 10/08/20 21:00 10/09/20 21:58 Iron (Venofer) 100 mg HD IV 10/09/20 10:00 10/12/20 14:13 Lidocaine HCl (Lidocaine 1% Sdv) 0.5 ml ASDIRECTED PRN SC SEE LABEL COMMENTS 10/09/20 08:20 10/10/20 08:19 DC Lidocaine HCl (Lidocaine 1% Sdv) 0.5 ml ASDIRECTED PRN SC SEE LABEL COMMENTS 10/12/20 06:00 10/12/20 08:44 DC Lidocaine/ Prilocaine (Emla) prior to dialysis Mon/W... HD TOP 10/08/20 14:20 10/12/20 09:11 Loratadine (Claritin) 10 mg DAILY PO 10/09/20 09:00 10/13/20 07:25 Menthol/Methyl Salicylate (Bengay Cream) 1 dose BID TOP 10/08/20 21:00 10/13/20 07:27 Multivitamins (Theragram-M) 1 tab QHS PO 10/08/20 21:00 10/12/20 20:36 Ondansetron HCl (Zofran Odt) 4 mg Q4HP PRN PO NAUSEA OR VOMITING 10/12/20 10:20 10/12/20 10:49 Pantoprazole Sodium (Protonix) 40 mg DAILY PO 10/09/20 09:00 10/13/20 07:25 Pravastatin Sodium (Pravachol) 80 mg QHS PO 10/08/20 21:00 10/12/20 20:36 Senna (Senokot) 1 tab QHS PO 10/08/20 21:00 10/12/20 20:37 Sevelamer Carbonate (Renvela) 800 mg ASDIRECTED PO 10/08/20 14:20 Sevelamer Carbonate (Renvela) 800 mg WM PO 10/08/20 18:00 10/13/20 07:24 GURMEET SOLORZANO MD Oct 13, 2020 10:35
[2020-10-13 14:00] VITALS: BP 182/82
[2020-10-13] MEDS: NORCO, ANEXSIA 5/325MG TABLET (HYDROcodone/ACETAMINOPHEN) PO PRN (16:44)
[2020-10-13] MEDS: ONDANSETRON 4 MG ORAL DISINTEGRATING TAB PO PRN (18:48)
[2020-10-13 20:00] VITALS: BP 158/76
[2020-10-13] MEDS: ASPIRIN 81MG ENTERIC TABLET PO SCH (21:14)
[2020-10-13] MEDS: MULTIVITAMINS/MINERALS THERAP 1 TAB PO SCH (21:14)
[2020-10-13] MEDS: SENNA 8.6 MG TAB (SENOKOT) PO SCH (21:14)
[2020-10-13] MEDS: CO-ENZYME Q10 50 MG CAP PO SCH (21:14)
[2020-10-13] MEDS: CALCIUM/VITAMIN D 500 MG TAB PO SCH (21:14)
[2020-10-13] MEDS: CARVedilol 12.5 MG TAB PO SCH (21:14)
[2020-10-13] MEDS: traZODone 25MG PER 1/2 TABLET PO SCH (21:15)
[2020-10-13] MEDS: amLODIPine 5 MG TAB PO SCH (21:15)
[2020-10-13] MEDS: PRAVASTATIN 20 MG TAB PO SCH (21:15)
[2020-10-14 06:00] VITALS: BP 140/60
[2020-10-14] MEDS: PANTOPRAZOLE 40MG TAB (PROTONIX) PO SCH (07:11)
[2020-10-14] MEDS: HumaLOG INSULIN (NovoLOG) PER UNIT SC SCH ×4 (07:11→21:00)
[2020-10-14] MEDS: DOCUSATE SODIUM 100MG CAPSULE PO SCH ×2 (07:11→20:44)
[2020-10-14] MEDS: LORATADINE 10 MG TAB PO SCH (07:11)
[2020-10-14] MEDS: (RENVELA) SEVELAMER **CARBONate** 800 MG TAB PO SCH ×3 (07:11→17:28)
[2020-10-14] MEDS: **hydrALAZINE HCL** 25 MG TAB PO SCH ×3 (07:12→20:43)
[2020-10-14] MEDS: ANALGESIC BALM CRM 3OZ TOP SCH ×2 (07:13→20:45)
[2020-10-14] MEDS: COMBIVENT RESPIMAT 100-20MCG INHALER 4GM INH SCH ×3 (07:15→20:36)
[2020-10-14 07:58] LABS: BASO % 0.5 % (0.0-1.0); EOS # 0.1 10^3/uL (0.0-0.5); EOS % 2.3 % (0.0-3.0); HEMATOCRIT 30.4 % (36.0-47.0); LYMPH % 16.6 % (24.0-44.0); MEAN CORPUSCULAR HEMOGLOBIN 28.2 pg (27.0-33.0); MEAN CORPUSCULAR HGB CONC 29.6 g/dl (32.0-36.5); MEAN CORPUSCULAR VOLUME 95.3 fl (80.0-96.0); MONO # 0.5 10^3/uL (0.0-0.8); MONO % 8.9 % (2.0-8.0); NEUTROPHILS # 4.3 10^3/uL (1.5-8.5); NEUTROPHILS % 71.2 % (36.0-66.0); PLATELET COUNT, AUTOMATED 111 10^3/uL (150-450); RED BLOOD COUNT 3.19 10^6/uL (4.00-5.40)
[2020-10-14 08:35] LABS: CREATININE FOR GFR 8.39 MG/DL (0.55-1.30); POTASSIUM SERUM 6.3 MEQ/L (3.5-5.1)
[2020-10-14] MEDS ORDERED: SODIUM CHLORIDE 0.9% 1000ML IV PRN (10:05)
[2020-10-14] MEDS ORDERED: LIDOCAINE 1% SDV 5ML VIAL SC PRN (10:05)
[2020-10-14] MEDS: IRON SUCROSE 100MG 5ML VIAL (J1756 PER 1MG) IV SCH (13:46)
[2020-10-14 17:19] VITALS: BP 148/78
[2020-10-14 20:00] VITALS: BP 138/68
[2020-10-14] MEDS: amLODIPine 5 MG TAB PO SCH (20:44)
[2020-10-14] MEDS: traZODone 25MG PER 1/2 TABLET PO SCH (20:44)
[2020-10-14] MEDS: SENNA 8.6 MG TAB (SENOKOT) PO SCH (20:44)
[2020-10-14] MEDS: CO-ENZYME Q10 50 MG CAP PO SCH (20:44)
[2020-10-14] MEDS: CALCIUM/VITAMIN D 500 MG TAB PO SCH (20:44)
[2020-10-14] MEDS: ASPIRIN 81MG ENTERIC TABLET PO SCH (20:44)
[2020-10-14] MEDS: MULTIVITAMINS/MINERALS THERAP 1 TAB PO SCH (20:44)
[2020-10-14] MEDS: CARVedilol 12.5 MG TAB PO SCH (20:44)
[2020-10-14] MEDS: PRAVASTATIN 20 MG TAB PO SCH (20:45)
[2020-10-15] MEDS: NORCO, ANEXSIA 5/325MG TABLET (HYDROcodone/ACETAMINOPHEN) PO PRN ×3 (04:05→23:10)
[2020-10-15 06:00] VITALS: BP 144/66
[2020-10-15] MEDS: **hydrALAZINE HCL** 25 MG TAB PO SCH ×3 (07:17→20:16)
[2020-10-15] MEDS: HumaLOG INSULIN (NovoLOG) PER UNIT SC SCH ×4 (07:17→20:17)
[2020-10-15] MEDS: LORATADINE 10 MG TAB PO SCH (07:17)
[2020-10-15] MEDS: (RENVELA) SEVELAMER **CARBONate** 800 MG TAB PO SCH ×3 (07:17→17:01)
[2020-10-15] MEDS: PANTOPRAZOLE 40MG TAB (PROTONIX) PO SCH (07:18)
[2020-10-15] MEDS: ANALGESIC BALM CRM 3OZ TOP SCH ×2 (07:18→20:18)
[2020-10-15] MEDS: DOCUSATE SODIUM 100MG CAPSULE PO SCH ×2 (07:18→20:15)
[2020-10-15] MEDS: COMBIVENT RESPIMAT 100-20MCG INHALER 4GM INH SCH ×3 (07:31→20:00)
--- NOTE | 2020-10-15 09:28 | IPNPDOC ---
PM&R Progress Note DATE OF SERVICE: Oct 14, 2020 Sales Representative Door To Door Progress Note Subjective: Patient reporting she slept better with the trazodone and that her pain is better controlled. She thinks she will need until Monday to get home. REVIEW OF SYSTEMS: The following is a completed review of systems and has been reviewed. Review of systems otherwise unremarkable. PAIN: Patient self reports no pain EYES: No recent vision changes EARS, NOSE, & THROAT: No throat pain, or dysphagia, or rhinorrhea CARDIOVASCULAR: Denies chest pain or palpitations PULMONARY: Denies shortness of breath GASTROINTESTINAL: Denies constipation/diarrhea GENITOURINARY: oliguric MUSCULOSKELETAL: generalized weakness NEUROLOGICAL:+peripheral polyneuropathy HEMATOLOGICAL: +anemic SKIN: denies rash PSYCHIATRIC: Unremarkable All other review of systems found to be negative. PHYSICAL EXAMINATION: VITAL SIGNS: Please see below. GENERAL: Pleasant and cooperative. No acute distress. HEENT: PERRL. Extraocular movements intact. Clear conjunctiva CARDIOVASCULAR: Regular rate and rhythm. No murmurs, rubs, or gallops LUNGS: Clear to auscultation bilaterally. No wheezes. No rhonchi ABDOMEN: Soft, nontender, nondistended. Positive bowel sounds. Normal active bowel sounds NEUROLOGICAL: Alert and oriented times three. Cranial nerves II through XII grossly intact. Sensation diminished to light touch in bilateral stocking patter EXTREMITIES: 5-\5 strength bilateral upper extremities. 4+\5 strength right lower extremity. 5/5 strength in left lower extremity. ASSESSMENT:75-year-old F with past medical history of ESRD on HD, hx of previous stroke with right sided weakness who presents status post worsening weakness in setting of CHF exacerbation PLAN: 1. Rehab- PT/OT advance mobility and ADLs, strengthen/stretch/maintain ROM all 4 limbs, ambulating with RW 2. Neuro- patient with diabetic peripheral polyneuropathy which is contributing to her overall gait and mobility impairments -hx of stroke with right sided weakness cont secondary stroke management 3. Cardiac- Hx of chronic systolic-diastolic CHF with recent exacerbation- fluid restrict, daily weights, fluid managed primarily by renal docs and dialysis -HTN- cont BP meds -CAD s/p CABG cont asa and coreg -HLD- cont statin -medicine consulted to assist in overall management 4. Resp- on home 02 with hx of bronchiectasis, patient requesting inhaler treatments, cont combivent -monitor for infection 5. Renal- ESRD on HD, renal consulted -cont sevelamer for phosphate management 6. Endo- hx of diabetes with peripheral polyneuropathy- cont insulin and c onsistent carb diet 7. Pain- tylenol prn, norco prn, and bengay 8. Psych- trazodone for insomnia 9. Dispot- 10-20-20 to home, progressing towards goals Allergies Coded Allergies: Notonxl-Utb-Ice Reductase Inhibitor (Verified Adverse Reaction, Unknown, PAIN, 10/05/20) PT SAYS SHE CAN TAKE PRAVASTATIN Vital Signs Vital Signs Date Time Temp Pulse Resp B/P (MAP) Pulse Ox O2 Delivery O2 Flow Rate FiO2 10/15/20 07:17 144/66 10/15/20 06:00 97.0 83 19 90 Room Air 10/14/20 20:00 2.0 Laboratory Data Labs 24H Laboratory Tests 2 10/14/20 12:03: Bedside Glucose (Misc Panel) 192H 10/14/20 16:50: Bedside Glucose (Misc Panel) 102 10/14/20 21:23: Bedside Glucose (Misc Panel) 184H 10/15/20 05:50: Bedside Glucose (Misc Panel) 148H Current Medications Current Medications Current Medications Medications (Trade) Dose Ordered Sig/Jessica Route PRN Reason Start Time Stop Time Status Last Admin Dose Admin Acetaminophen (Tylenol Tab) 650 mg Q4HP PRN PO fever/MILD PAIN (PS 1-4) 10/08/20 14:20 10/12/20 05:40 Acetaminophen/ Hydrocodone Bitart ([place], Anexsia 5/325) 1 tab Q6HP PRN PO MODERATE PAIN (PS 5-7) 10/13/20 14:45 10/15/20 04:05 Al Hydrox/Mg Hydrox/Simethicone (Mylanta) 30 ml Q4HP PRN PO DYSPEPSIA 10/08/20 14:20 Albuterol/ Ipratropium (Combivent Respimat 100-20mcg) 1 puff RTID INH 10/09/20 14:00 10/14/20 20:36 Amlodipine Besylate (Norvasc) 5 mg QHS PO 10/08/20 21:00 10/14/20 20:44 Aspirin (Ecotrin) 81 mg QHS PO 10/08/20 21:00 10/14/20 20:44 Calcium/Vitamin D (Oscal D) 500 mg QHS PO 10/08/20 21:00 10/14/20 20:44 Carvedilol (COReg) 12.5 mg QHS PO 10/08/20 21:00 10/14/20 20:44 Coenzyme Q10 (Coenzyme Q10) 100 mg QHS PO 10/08/20 21:00 11/07/20 20:59 10/14/20 20:44 Darbepoetin Issac (Aranesp (Dialysis Use)) 100 mcg HD IV 10/09/20 10:00 10/12/20 13:11 Dextrose (Dextrose 50%) 25 ml ASDIRECTED PRN IV SEE LABEL COMMENTS 10/08/20 14:20 Docusate Sodium (Colace) 100 mg BID PO 10/08/20 21:00 10/15/20 07:18 Glucagon (Glucagon) 1 mg ASDIRECTED PRN SC SEE LABEL COMMENTS 10/08/20 14:20 Glucose (Glucose) 16 GM ASDIRECTED PRN PO SEE LABEL COMMENTS 10/08/20 14:20 Heparin Sodium (Heparin) Please refer to ... ASDIRECTED XX 10/09/20 08:20 10/10/20 08:19 DC Heparin Sodium (Heparin) Please refer to ... ASDIRECTED XX 10/12/20 06:00 10/13/20 05:59 DC Heparin Sodium (Heparin) Please refer to ... ASDIRECTED XX 10/14/20 10:05 10/15/20 10:04 Heparin Sodium (Heparin) dose as per volume indica... ASDIRECTED PRN IV SEE LABEL COMMENTS 10/14/20 10:05 10/15/20 10:04 Home Med (Home Med List Complete!) ASDIRECTED XX 10/08/20 15:10 10/08/20 15:09 DC Hydralazine HCl (Apresoline) 25 mg TID PO 10/08/20 16:00 10/15/20 07:17 Insulin Detemir (Levemir Insulin) 5 units DAILY@2100 SC 10/09/20 21:00 10/13/20 10:31 DC 10/12/20 20:37 Insulin Human Lispro (HumaLOG INSULIN) SEE PROTOCOL TABLE AC SC 10/08/20 17:30 10/14/20 12:36 Insulin Human Lispro (HumaLOG INSULIN) SEE PROTOCOL TABLE QHS SC 10/08/20 21:00 10/09/20 21:58 Iron (Venofer) 100 mg HD IV 10/09/20 10:00 10/14/20 17:31 DC 10/14/20 13:46 Lidocaine HCl (Lidocaine 1% Sdv) 0.5 ml ASDIRECTED PRN SC SEE LABEL COMMENTS 10/09/20 08:20 10/10/20 08:19 DC Lidocaine HCl (Lidocaine 1% Sdv) 0.5 ml ASDIRECTED PRN SC SEE LABEL COMMENTS 10/12/20 06:00 10/12/20 08:44 DC Lidocaine HCl (Lidocaine 1% Sdv) 0.5 ml ASDIRECTED PRN SC SEE LABEL COMMENTS 10/14/20 10:05 10/15/20 10:04 Lidocaine/ Prilocaine (Emla) prior to dialysis Mon/W... HD TOP 10/08/20 14:20 10/12/20 09:11 Loratadine (Claritin) 10 mg DAILY PO 10/09/20 09:00 10/15/20 07:17 Menthol/Methyl Salicylate (Bengay Cream) 1 dose BID TOP 10/08/20 21:00 10/15/20 07:18 Multivitamins (Theragram-M) 1 tab QHS PO 10/08/20 21:00 10/14/20 20:44 Ondansetron HCl (Zofran Odt) 4 mg Q4HP PRN PO NAUSEA OR VOMITING 10/12/20 10:20 10/13/20 18:48 Pantoprazole Sodium (Protonix) 40 mg DAILY PO 10/09/20 09:00 10/15/20 07:18 Polyethylene Glycol (Miralax) 1 pkt DAILYPRN PRN PO CONSTIPATION 10/13/20 20:20 Pravastatin Sodium (Pravachol) 80 mg QHS PO 10/08/20 21:00 10/14/20 20:45 Senna (Senokot) 1 tab QHS PO 10/08/20 21:00 10/14/20 20:44 Sevelamer Carbonate (Renvela) 800 mg ASDIRECTED PO 10/08/20 14:20 Sevelamer Carbonate (Renvela) 800 mg WM PO 10/08/20 18:00 10/15/20 07:17 Sodium Chloride (Nacl 0.9%) 200 ml ASDIRECTED PRN IV SEE LABEL COMMENTS 10/14/20 10:05 10/15/20 10:04 Trazodone HCl (Desyrel) 25 mg QHS PO 10/13/20 21:00 10/14/20 20:44 GURMEET SOLORZANO MD Oct 15, 2020 09:28
--- NOTE | 2020-10-15 09:28 | IPNPDOC ---
PM&R Progress Note DATE OF SERVICE: Oct 15, 2020 Veneer Jointer Helper Progress Note Subjective: Patient states her pain is well controlled and she signed the MOLS form to be DNR/DNI. REVIEW OF SYSTEMS: The following is a completed review of systems and has been reviewed. Review of systems otherwise unremarkable. PAIN: Patient self reports no pain EYES: No recent vision changes EARS, NOSE, & THROAT: No throat pain, or dysphagia, or rhinorrhea CARDIOVASCULAR: Denies chest pain or palpitations PULMONARY: Denies shortness of breath GASTROINTESTINAL: Denies constipation/diarrhea GENITOURINARY: oliguric MUSCULOSKELETAL: generalized weakness NEUROLOGICAL:+peripheral polyneuropathy HEMATOLOGICAL: +anemic SKIN: denies rash PSYCHIATRIC: Unremarkable All other review of systems found to be negative. PHYSICAL EXAMINATION: VITAL SIGNS: Please see below. GENERAL: Pleasant and cooperative. No acute distress. HEENT: PERRL. Extraocular movements intact. Clear conjunctiva CARDIOVASCULAR: Regular rate and rhythm. No murmurs, rubs, or gallops LUNGS: Clear to auscultation bilaterally. No wheezes. No rhonchi ABDOMEN: Soft, nontender, nondistended. Positive bowel sounds. Normal active bowel sounds NEUROLOGICAL: Alert and oriented times three. Cranial nerves II through XII grossly intact. Sensation diminished to light touch in bilateral stocking patter EXTREMITIES: 5-\5 strength bilateral upper extremities. 4+\5 strength right lower extremity. 5/5 strength in left lower extremity. ASSESSMENT:75-year-old F with past medical history of ESRD on HD, hx of previous stroke with right sided weakness who presents status post worsening weakness in setting of CHF exacerbation PLAN: 1. Rehab- PT/OT advance mobility and ADLs, strengthen/stretch/maintain ROM all 4 limbs, ambulating with RW 2. Neuro- patient with diabetic peripheral polyneuropathy which is contributing to her overall gait and mobility impairments -hx of stroke with right sided weakness cont secondary stroke management 3. Cardiac- Hx of chronic systolic-diastolic CHF with recent exacerbation- fluid restrict, daily weights, fluid managed primarily by renal docs and dialysis -HTN- cont BP meds -CAD s/p CABG cont asa and coreg -HLD- cont statin -medicine consulted to assist in overall management 4. Resp- on home with hx of bronchiectasis, patient requesting inhaler treatments, cont combivent -monitor for infection 5. Renal- ESRD on HD, renal consulted -cont sevelamer for phosphate management 6. Endo- hx of diabetes with peripheral polyneuropathy- cont insulin and consistent carb diet 7. Pain- tylenol prn, norco prn, and bengay 8. Psych- trazodone for insomnia 9. Dispot- 10-20-20 to home, progressing towards goals Allergies Coded Allergies: Zmiswoy-Ngq-Cpx Reductase Inhibitor (Verified Adverse Reaction, Unknown, PAIN, 10/05/20) PT SAYS SHE CAN TAKE PRAVASTATIN Vital Signs Vital Signs Date Time Temp Pulse Resp B/P (MAP) Pulse Ox O2 Delivery O2 Flow Rate FiO2 10/15/20 07:17 144/66 10/15/20 06:00 97.0 83 19 90 Room Air 10/14/20 20:00 2.0 Laboratory Data Labs 24H Laboratory Tests 2 10/14/20 12:03: Bedside Glucose (Misc Panel) 192H 10/14/20 16:50: Bedside Glucose (Misc Panel) 102 10/14/20 21:23: Bedside Glucose (Misc Panel) 184H 10/15/20 05:50: Bedside Glucose (Misc Panel) 148H Current Medications Current Medications Current Medications Medications (Trade) Dose Ordered Sig/Jessica Route PRN Reason Start Time Stop Time Status Last Admin Dose Admin Acetaminophen (Tylenol Tab) 650 mg Q4HP PRN PO fever/MILD PAIN (PS 1-4) 10/08/20 14:20 10/12/20 05:40 Acetaminophen/ Hydrocodone Bitart ([place], Anexsia 5/325) 1 tab Q6HP PRN PO MODERATE PAIN (PS 5-7) 10/13/20 14:45 10/15/20 04:05 Al Hydrox/Mg Hydrox/Simethicone (Mylanta) 30 ml Q4HP PRN PO DYSPEPSIA 10/08/20 14:20 Albuterol/ Ipratropium (Combivent Respimat 100-20mcg) 1 puff RTID INH 10/09/20 14:00 10/14/20 20:36 Amlodipine Besylate (Norvasc) 5 mg QHS PO 10/08/20 21:00 10/14/20 20:44 Aspirin (Ecotrin) 81 mg QHS PO 10/08/20 21:00 10/14/20 20:44 Calcium/Vitamin D (Oscal D) 500 mg QHS PO 10/08/20 21:00 10/14/20 20:44 Carvedilol (COReg) 12.5 mg QHS PO 10/08/20 21:00 10/14/20 20:44 Coenzyme Q10 (Coenzyme Q10) 100 mg QHS PO 10/08/20 21:00 11/07/20 20:59 10/14/20 20:44 Darbepoetin Issac (Aranesp (Dialysis Use)) 100 mcg HD IV 10/09/20 10:00 10/12/20 13:11 Dextrose (Dextrose 50%) 25 ml ASDIRECTED PRN IV SEE LABEL COMMENTS 10/08/20 14:20 Docusate Sodium (Colace) 100 mg BID PO 10/08/20 21:00 10/15/20 07:18 Glucagon (Glucagon) 1 mg ASDIRECTED PRN SC SEE LABEL COMMENTS 10/08/20 14:20 Glucose (Glucose) 16 GM ASDIRECTED PRN PO SEE LABEL COMMENTS 10/08/20 14:20 Heparin Sodium (Heparin) Please refer to ... ASDIRECTED XX 10/09/20 08:20 10/10/20 08:19 DC Heparin Sodium (Heparin) Please refer to ... ASDIRECTED XX 10/12/20 06:00 10/13/20 05:59 DC Heparin Sodium (Heparin) Please refer to ... ASDIRECTED XX 10/14/20 10:05 10/15/20 10:04 Heparin Sodium (Heparin) dose as per volume indica... ASDIRECTED PRN IV SEE LABEL COMMENTS 10/14/20 10:05 10/15/20 10:04 Home Med (Home Med List Complete!) ASDIRECTED XX 10/08/20 15:10 10/08/20 15:09 DC Hydralazine HCl (Apresoline) 25 mg TID PO 10/08/20 16:00 10/15/20 07:17 Insulin Detemir (Levemir Insulin) 5 units DAILY@2100 SC 10/09/20 21:00 10/13/20 10:31 DC 10/12/20 20:37 Insulin Human Lispro (HumaLOG INSULIN) SEE PROTOCOL TABLE AC SC 10/08/20 17:30 10/14/20 12:36 Insulin Human Lispro (HumaLOG INSULIN) SEE PROTOCOL TABLE QHS SC 10/08/20 21:00 10/09/20 21:58 Iron (Venofer) 100 mg HD IV 10/09/20 10:00 10/14/20 17:31 DC 10/14/20 13:46 Lidocaine HCl (Lidocaine 1% Sdv) 0.5 ml ASDIRECTED PRN SC SEE LABEL COMMENTS 10/09/20 08:20 10/10/20 08:19 DC Lidocaine HCl (Lidocaine 1% Sdv) 0.5 ml ASDIRECTED PRN SC SEE LABEL COMMENTS 10/12/20 06:00 10/12/20 08:44 DC Lidocaine HCl (Lidocaine 1% Sdv) 0.5 ml ASDIRECTED PRN SC SEE LABEL COMMENTS 10/14/20 10:05 10/15/20 10:04 Lidocaine/ Prilocaine (Emla) prior to dialysis Mon/W... HD TOP 10/08/20 14:20 10/12/20 09:11 Loratadine (Claritin) 10 mg DAILY PO 10/09/20 09:00 10/15/20 07:17 Menthol/Methyl Salicylate (Bengay Cream) 1 dose BID TOP 10/08/20 21:00 10/15/20 07:18 Multivitamins (Theragram-M) 1 tab QHS PO 10/08/20 21:00 10/14/20 20:44 Ondansetron HCl (Zofran Odt) 4 mg Q4HP PRN PO NAUSEA OR VOMITING 10/12/20 10:20 10/13/20 18:48 Pantoprazole Sodium (Protonix) 40 mg DAILY PO 10/09/20 09:00 10/15/20 07:18 Polyethylene Glycol (Miralax) 1 pkt DAILYPRN PRN PO CONSTIPATION 10/13/20 20:20 Pravastatin Sodium (Pravachol) 80 mg QHS PO 10/08/20 21:00 10/14/20 20:45 Senna (Senokot) 1 tab QHS PO 10/08/20 21:00 10/14/20 20:44 Sevelamer Carbonate (Renvela) 800 mg ASDIRECTED PO 10/08/20 14:20 Sevelamer Carbonate (Renvela) 800 mg WM PO 10/08/20 18:00 10/15/20 07:17 Sodium Chloride (Nacl 0.9%) 200 ml ASDIRECTED PRN IV SEE LABEL COMMENTS 10/14/20 10:05 10/15/20 10:04 Trazodone HCl (Desyrel) 25 mg QHS PO 10/13/20 21:00 10/14/20 20:44 GURMEET SOLORZANO MD Oct 15, 2020 09:28
[2020-10-15 14:00] VITALS: BP 160/74
[2020-10-15 20:00] VITALS: BP 168/78
[2020-10-15] MEDS: MIRALAX *UNIT DOSE* 17GM PACKET PO PRN (20:15)
[2020-10-15] MEDS: MULTIVITAMINS/MINERALS THERAP 1 TAB PO SCH (20:15)
[2020-10-15] MEDS: PRAVASTATIN 20 MG TAB PO SCH (20:15)
[2020-10-15] MEDS: CALCIUM/VITAMIN D 500 MG TAB PO SCH (20:15)
[2020-10-15] MEDS: ASPIRIN 81MG ENTERIC TABLET PO SCH (20:15)
[2020-10-15] MEDS: SENNA 8.6 MG TAB (SENOKOT) PO SCH (20:16)
[2020-10-15] MEDS: traZODone 25MG PER 1/2 TABLET PO SCH (20:16)
[2020-10-15] MEDS: CARVedilol 12.5 MG TAB PO SCH (20:17)
[2020-10-15] MEDS: CO-ENZYME Q10 50 MG CAP PO SCH (20:17)
[2020-10-15] MEDS: amLODIPine 5 MG TAB PO SCH (20:17)
[2020-10-16 06:00] VITALS: BP 146/68
[2020-10-16] MEDS: (RENVELA) SEVELAMER **CARBONate** 800 MG TAB PO SCH ×3 (08:00→18:47)
[2020-10-16] MEDS: COMBIVENT RESPIMAT 100-20MCG INHALER 4GM INH SCH ×2 (08:00→19:21)
[2020-10-16] MEDS: LORATADINE 10 MG TAB PO SCH (08:00)
[2020-10-16] MEDS: DOCUSATE SODIUM 100MG CAPSULE PO SCH ×2 (08:01→22:30)
[2020-10-16] MEDS: **hydrALAZINE HCL** 25 MG TAB PO SCH ×3 (08:01→22:35)
[2020-10-16] MEDS: PANTOPRAZOLE 40MG TAB (PROTONIX) PO SCH (08:01)
[2020-10-16] MEDS: HumaLOG INSULIN (NovoLOG) PER UNIT SC SCH ×4 (08:02→21:00)
[2020-10-16 11:40] LABS: BASO # 0.1 10^3/uL (0.0-0.2); BASO % 0.8 % (0.0-1.0); EOS # 0.1 10^3/uL (0.0-0.5); EOS % 1.7 % (0.0-3.0); HEMATOCRIT 30.5 % (36.0-47.0); HEMOGLOBIN 9.2 g/dl (12.0-15.5); LYMPH # 0.7 10^3/uL (1.5-5.0); LYMPH % 12.2 % (24.0-44.0); MEAN CORPUSCULAR HGB CONC 30.2 g/dl (32.0-36.5); MONO # 0.5 10^3/uL (0.0-0.8); MONO % 8.4 % (2.0-8.0); NEUTROPHILS # 4.6 10^3/uL (1.5-8.5); NEUTROPHILS % 76.7 % (36.0-66.0); PLATELET COUNT, AUTOMATED 132 10^3/uL (150-450); RED BLOOD COUNT 3.28 10^6/uL (4.00-5.40); WHITE BLOOD COUNT 6.1 10^3/uL (4.0-10.0)
--- NOTE | 2020-10-16 11:42 | IPNPDOC ---
PM&R Progress Note DATE OF SERVICE: Oct 16, 2020 Security Strategist Progress Note Subjective: Patient stating she feels constipated and would like a suppository. REVIEW OF SYSTEMS: The following is a completed review of systems and has been reviewed. Review of systems otherwise unremarkable. PAIN: Patient self reports no pain EYES: No recent vision changes EARS, NOSE, & THROAT: No throat pain, or dysphagia, or rhinorrhea CARDIOVASCULAR: Denies chest pain or palpitations PULMONARY: Denies shortness of breath GASTROINTESTINAL: + constipation GENITOURINARY: oliguric MUSCULOSKELETAL: generalized weakness NEUROLOGICAL:+peripheral polyneuropathy HEMATOLOGICAL: +anemic SKIN: denies rash PSYCHIATRIC: Unremarkable All other review of systems found to be negative. PHYSICAL EXAMINATION: VITAL SIGNS: Please see below. GENERAL: Pleasant and cooperative. No acute distress. HEENT: PERRL. Extraocular movements intact. Clear conjunctiva CARDIOVASCULAR: Regular rate and rhythm. No murmurs, rubs, or gallops LUNGS: Clear to auscultation bilaterally. No wheezes. No rhonchi ABDOMEN: Soft, nontender, nondistended. Positive bowel sounds. Normal active bowel sounds NEUROLOGICAL: Alert and oriented times three. Cranial nerves II through XII grossly intact. Sensation diminished to light touch in bilateral stocking patter EXTREMITIES: 5-\5 strength bilateral upper extremities. 4+\5 strength right lower extremity. 5/5 strength in left lower extremity. ASSESSMENT:75-year-old F with past medical history of ESRD on HD, hx of previous stroke with right sided weakness who presents status post worsening weakness in setting of CHF exacerbation PLAN: 1. Rehab- PT/OT advance mobility and ADLs, strengthen/stretch/maintain ROM all 4 limbs, ambulating with RW 2. Neuro- patient with diabetic peripheral polyneuropathy which is contributing to her overall gait and mobility impairments -hx of stroke with right sided weakness cont secondary stroke management 3. Cardiac- Hx of chronic systolic-diastolic CHF with recent exacerbation- fluid restrict, daily weights, fluid managed primarily by renal docs and dialysis -HTN- cont BP meds -CAD s/p CABG cont asa and coreg -HLD- cont statin -medicine consulted to assist in overall management 4. Resp- on home 02 with hx of bronchiectasis, patient requesting inhaler treatments, cont combivent -monitor for infection 5. Renal- ESRD on HD, renal consulted -cont sevelamer for phosphate management 6. Endo- hx of diabetes with peripheral polyneuropathy- cont insulin and cons istent carb diet 7. Pain- tylenol prn, norco prn, and bengay 8. Psych- trazodone for insomnia 9. Dispot- 10-20-20 to home, progressing towards goals Allergies Coded Allergies: [id number]-Bdm Reductase Inhibitor (Verified Adverse Reaction, Unknown, PAIN, 10/05/20) PT SAYS SHE CAN TAKE PRAVASTATIN Vital Signs Vital Signs Date Time Temp Pulse Resp B/P (MAP) Pulse Ox O2 Delivery O2 Flow Rate FiO2 10/16/20 08:01 146/68 10/16/20 06:00 96.7 80 18 100 Room Air 10/15/20 19:40 2.0 Laboratory Data CBC/BMP Laboratory Tests 10/16/20 10:48 Labs 24H Laboratory Tests 2 10/15/20 16:33: Bedside Glucose (Misc Panel) 148H 10/15/20 20:00: Bedside Glucose (Misc Panel) 173H 10/16/20 05:35: Bedside Glucose (Misc Panel) 155H 10/16/20 10:48: Immature Granulocyte % (Auto) 0.2, Neutrophils (%) (Auto) 76.7H, Lymphocytes (%) (Auto) 12.2L, Monocytes (%) (Auto) 8.4H, Eosinophils (%) (Auto) 1.7, Basophils (%) (Auto) 0.8, Neutrophils # (Auto) 4.6, Lymphocytes # (Auto) 0.7L, Monocytes # (Auto) 0.5, Eosinophils # (Auto) 0.1, Basophils # (Auto) 0.1, Nucleated Red Blood Cells % (auto) 0.0 Current Medications Current Medications Current Medications Medications (Trade) Dose Ordered Sig/Jessica Route PRN Reason Start Time Stop Time Status Last Admin Dose Admin Acetaminophen (Tylenol Tab) 650 mg Q4HP PRN PO fever/MILD PAIN (PS 1-4) 10/08/20 14:20 10/12/20 05:40 Acetaminophen/ Hydrocodone Bitart ([place], Anexsia 5/325) 1 tab Q6HP PRN PO MODERATE PAIN (PS 5-7) 10/13/20 14:45 10/15/20 23:10 Al Hydrox/Mg Hydrox/Simethicone (Mylanta) 30 ml Q4HP PRN PO DYSPEPSIA 10/08/20 14:20 Albuterol/ Ipratropium (Combivent Respimat 100-20mcg) 1 puff RTID INH 10/09/20 14:00 10/14/20 20:36 Amlodipine Besylate (Norvasc) 5 mg QHS PO 10/08/20 21:00 10/15/20 20:17 Aspirin (Ecotrin) 81 mg QHS PO 10/08/20 21:00 10/15/20 20:15 Calcium/Vitamin D (Oscal D) 500 mg QHS PO 10/08/20 21:00 10/15/20 20:15 Carvedilol (COReg) 12.5 mg QHS PO 10/08/20 21:00 10/15/20 20:17 Coenzyme Q10 (Coenzyme Q10) 100 mg QHS PO 10/08/20 21:00 11/07/20 20:59 10/15/20 20:17 Darbepoetin Issac (Aranesp (Dialysis Use)) 100 mcg HD IV 10/09/20 10:00 10/12/20 13:11 Dextrose (Dextrose 50%) 25 ml ASDIRECTED PRN IV SEE LABEL COMMENTS 10/08/20 14:20 Docusate Sodium (Colace) 100 mg BID PO 10/08/20 21:00 10/16/20 08:01 Glucagon (Glucagon) 1 mg ASDIRECTED PRN SC SEE LABEL COMMENTS 10/08/20 14:20 Glucose (Glucose) 16 GM ASDIRECTED PRN PO SEE LABEL COMMENTS 10/08/20 14:20 Heparin Sodium (Heparin) Please refer to ... ASDIRECTED XX 10/09/20 08:20 10/10/20 08:19 DC Heparin Sodium (Heparin) Please refer to ... ASDIRECTED XX 10/12/20 06:00 10/13/20 05:59 DC Heparin Sodium (Heparin) Please refer to ... ASDIRECTED XX 10/14/20 10:05 10/15/20 10:04 DC Heparin Sodium (Heparin) dose as per volume indica... ASDIRECTED PRN IV SEE LABEL COMMENTS 10/14/20 10:05 10/15/20 10:04 DC Home Med (Home Med List Complete!) ASDIRECTED XX 10/08/20 15:10 8/12/21 15:09 DC Hydralazine HCl (Apresoline) 25 mg TID PO 10/08/20 16:00 10/16/20 08:01 Insulin Detemir (Levemir Insulin) 5 units DAILY@2100 SC 10/09/20 21:00 10/13/20 10:31 DC 10/12/20 20:37 Insulin Human Lispro (HumaLOG INSULIN) SEE PROTOCOL TABLE AC SC 10/08/20 17:30 10/16/20 08:02 Insulin Human Lispro (HumaLOG INSULIN) SEE PROTOCOL TABLE QHS SC 10/08/20 21:00 10/09/20 21:58 Iron (Venofer) 100 mg HD IV 10/09/20 10:00 10/14/20 17:31 DC 10/14/20 13:46 Lidocaine HCl (Lidocaine 1% Sdv) 0.5 ml ASDIRECTED PRN SC SEE LABEL COMMENTS 10/09/20 08:20 10/10/20 08:19 DC Lidocaine HCl (Lidocaine 1% Sdv) 0.5 ml ASDIRECTED PRN SC SEE LABEL COMMENTS 10/12/20 06:00 10/12/20 08:44 DC Lidocaine HCl (Lidocaine 1% Sdv) 0.5 ml ASDIRECTED PRN SC SEE LABEL COMMENTS 10/14/20 10:05 10/15/20 10:04 DC Lidocaine/ Prilocaine (Emla) prior to dialysis Mon/W... HD TOP 10/08/20 14:20 10/12/20 09:11 Loratadine (Claritin) 10 mg DAILY PO 10/09/20 09:00 10/16/20 08:00 Menthol/Methyl Salicylate (Bengay Cream) 1 dose BID TOP 10/08/20 21:00 10/15/20 20:18 Multivitamins (Theragram-M) 1 tab QHS PO 10/08/20 21:00 10/15/20 20:15 Ondansetron HCl (Zofran Odt) 4 mg Q4HP PRN PO NAUSEA OR VOMITING 10/12/20 10:20 10/13/20 18:48 Pantoprazole Sodium (Protonix) 40 mg DAILY PO 10/09/20 09:00 10/16/20 08:01 Polyethylene Glycol (Miralax) 1 pkt DAILYPRN PRN PO CONSTIPATION 10/13/20 20:20 10/15/20 20:15 Pravastatin Sodium (Pravachol) 80 mg QHS PO 10/08/20 21:00 10/15/20 20:15 Senna (Senokot) 1 tab QHS PO 10/08/20 21:00 10/15/20 20:16 Sevelamer Carbonate (Renvela) 800 mg ASDIRECTED PO 10/08/20 14:20 Sevelamer Carbonate (Renvela) 800 mg WM PO 10/08/20 18:00 10/16/20 08:00 Sodium Chloride (Nacl 0.9%) 200 ml ASDIRECTED PRN IV SEE LABEL COMMENTS 10/14/20 10:05 10/15/20 10:04 DC Trazodone HCl (Desyrel) 25 mg QHS PO 10/13/20 21:00 10/15/20 20:16 GURMEET SOLORZANO MD Oct 16, 2020 11:42
[2020-10-16] MEDS ORDERED: BISACODYL 10 MG SUPP PR ONE (11:45)
[2020-10-16 12:02] LABS: CALCIUM LEVEL 8.8 MG/DL (8.8-10.2); CREATININE FOR GFR 8.12 MG/DL (0.55-1.30); GLOMERULAR FILTRATION RATE 6.2 (>39); POTASSIUM SERUM 5.9 MEQ/L (3.5-5.1)
[2020-10-16] MEDS: ANALGESIC BALM CRM 3OZ TOP SCH ×2 (12:23→22:32)
[2020-10-16] MEDS ORDERED: LIDOCAINE 1% SDV 5ML VIAL SC PRN (13:10)
[2020-10-16] MEDS ORDERED: SODIUM CHLORIDE 0.9% 1000ML IV PRN (13:10)
--- NOTE | 2020-10-16 13:39 | IPN ---
PROGRESS NOTE DATE: 10/16/2020 SUBJECTIVE: Bree is seen and examined this afternoon in the hemodialysis unit recommended her treatment. Dialysis has been uneventful. She only complains of constipation, otherwise has no complaints. OBJECTIVE: VITAL SIGNS: Temperature is 96.7, pulse is 80, respiratory rate is 18, blood pressure is 146/68, saturating 100% on room air. INTAKE AND OUTPUT: Intake yesterday was 780, goal dialysis removal today is 1.5 liters. GENERAL: Patient is seen in the hemodialysis unit receiving her treatment, awake, alert and oriented and in no distress. HEENT: Extraocular muscles are intact. Tongue is moist. NECK: Supple. Jugular veins are not elevated. HEART: Heart sounds are regular, S1 and S2. There is no peripheral edema. LUNGS: Lungs are clear to auscultation bilaterally. No crackle or rale. ABDOMEN: Soft and nontender. EXTREMITIES: No edema or cyanosis. There is mildly diminished strength in the right lower extremity. There is a fistula in the left arm that was patent and in use. NEUROLOGIC: She is oriented x3, interactive and conversational. PSYCHIATRIC: Appropriate mood and affect. LABORATORY DATA: Laboratory studies today show a hemoglobin of 9.2, platelets are 132,000, sodium is 131, potassium is 5.9, BUN 50, creatinine 8.1. INPATIENT MEDICATIONS: Reviewed by myself. I note she was ordered for a suppository and Miralax p.r.n. The remainder of the medications are all unchanged over the past couple of days. PROBLEMS: 1. Endstage renal disease on hemodialysis on a Monday, Monday and Monday schedule. Patient is being dialyzed today. She is hyperkalemic. She is on a 2 gram potassium restricted diet. We lowered the potassium and the dialysis back today and I did increase her treatment time by an additional 15 minutes. Her fistula is in good use. Goal fluid removal today is 1.5 liters to 2 liters as tolerated by hemodynamics. 2. Hyperkalemia, continue with low potassium diet. The potassium concentration in her dialysis bath was lowered and her treatment time was slightly extended as well. 3. Hypertension, blood pressures are suitable and no changes being made to the current regimen of amlodipine, Carvedilol and hydralazine. 4. Anemia of chronic renal failure, hemoglobin is not at goal. She is receiving Aranesp for dialysis for a goal hemoglobin of 10 to 11.
[2020-10-16 17:52] VITALS: BP 145/66
[2020-10-16 21:30] VITALS: BP 164/71
[2020-10-16] MEDS: CO-ENZYME Q10 50 MG CAP PO SCH (22:24)
[2020-10-16] MEDS: ASPIRIN 81MG ENTERIC TABLET PO SCH (22:24)
[2020-10-16] MEDS: CALCIUM/VITAMIN D 500 MG TAB PO SCH (22:25)
[2020-10-16] MEDS: PRAVASTATIN 20 MG TAB PO SCH (22:30)
[2020-10-16] MEDS: traZODone 25MG PER 1/2 TABLET PO SCH (22:31)
[2020-10-16] MEDS: SENNA 8.6 MG TAB (SENOKOT) PO SCH (22:31)
[2020-10-16] MEDS: MULTIVITAMINS/MINERALS THERAP 1 TAB PO SCH (22:31)
[2020-10-16] MEDS: amLODIPine 5 MG TAB PO SCH (22:34)
[2020-10-16] MEDS: CARVedilol 12.5 MG TAB PO SCH (22:35)
[2020-10-17] MEDS: ACETAMINOPHEN TAB 650MG DOSE (2X325MG) PO PRN ×2 (05:21→16:48)
[2020-10-17 06:09] VITALS: BP 156/72
[2020-10-17] MEDS: COMBIVENT RESPIMAT 100-20MCG INHALER 4GM INH SCH ×3 (07:03→20:00)
[2020-10-17] MEDS: (RENVELA) SEVELAMER **CARBONate** 800 MG TAB PO SCH ×3 (07:50→20:35)
[2020-10-17] MEDS: DOCUSATE SODIUM 100MG CAPSULE PO SCH ×2 (07:50→20:37)
[2020-10-17] MEDS: LORATADINE 10 MG TAB PO SCH (07:50)
[2020-10-17] MEDS: PANTOPRAZOLE 40MG TAB (PROTONIX) PO SCH (07:50)
[2020-10-17] MEDS: HumaLOG INSULIN (NovoLOG) PER UNIT SC SCH ×4 (07:50→22:00)
[2020-10-17] MEDS: **hydrALAZINE HCL** 25 MG TAB PO SCH ×3 (07:51→20:37)
[2020-10-17] MEDS: ANALGESIC BALM CRM 3OZ TOP SCH ×2 (07:51→20:38)
--- NOTE | 2020-10-17 13:31 | IPN ---
PROGRESS NOTE DATE: 10/17/2020 SUBJECTIVE: Ms. Acosta is seen this morning on her bedside. She is feeling better and reports that she has been able to walk short distances with the help of a walker. She denies any dyspnea, chest pain, nausea or vomiting. She was dialyzed yesterday, which she tolerated well. PHYSICAL EXAMINATION: VITALS: Temperature 98 degrees Fahrenheit, heart rate 85 per minute, respiratory rate 18 per minute, blood pressure 150/69 mmHg, oxygen saturation 94% on room air. HEENT: Head is atraumatic. Neck is supple and JVD not abnormally elevated. LUNGS: Sound clear to auscultation. HEART: Sounds are irregular in rhythm. ABDOMEN: Soft and nontender. Bowel sounds are normal. EXTREMITIES: Without any cyanosis or clubbing. NEUROLOGIC: She is at her baseline mentation. LABORATORY STUDIES: Yesterday's labs showed hemoglobin 9.2 and hematocrit 30.5. Sodium 131 and potassium 5.9. BUN 50 and creatinine 8.12. PROBLEMS: 1. End-stage renal disease: Patient was dialyzed yesterday and will be scheduled for next dialysis on Monday. Her volume status is well compensated. 2. Hyperkalemia: She has recurrent hyperkalemia related to probably dietary noncompliance. Patient was dialyzed with low potassium bath. Her electrolytes will be checked again on Monday prior to dialysis. 3. Hyponatremia: She has mild chronic hyponatremia; this is likely to improve with dialysis. Electrolytes will be checked again on Monday prior to next dialysis. 4. Anemia: She has been receiving Aranesp and received her last dose just yesterday. Anemia is stable at this point. 5. Hypertension: Blood pressure seems to be reasonably well controlled on current antihypertensive medications and no changes are needed.
[2020-10-17 14:00] VITALS: BP 159/74
[2020-10-17 19:59] VITALS: BP 164/70
[2020-10-17] MEDS: PRAVASTATIN 20 MG TAB PO SCH (20:36)
[2020-10-17] MEDS: ASPIRIN 81MG ENTERIC TABLET PO SCH (20:36)
[2020-10-17] MEDS: SENNA 8.6 MG TAB (SENOKOT) PO SCH (20:36)
[2020-10-17] MEDS: CO-ENZYME Q10 50 MG CAP PO SCH (20:36)
[2020-10-17] MEDS: CARVedilol 12.5 MG TAB PO SCH (20:36)
[2020-10-17] MEDS: traZODone 25MG PER 1/2 TABLET PO SCH (20:36)
[2020-10-17] MEDS: MULTIVITAMINS/MINERALS THERAP 1 TAB PO SCH (20:37)
[2020-10-17] MEDS: CALCIUM/VITAMIN D 500 MG TAB PO SCH (20:37)
[2020-10-17] MEDS: amLODIPine 5 MG TAB PO SCH (20:37)
[2020-10-17] MEDS: MIRALAX *UNIT DOSE* 17GM PACKET PO PRN (20:44)
[2020-10-18] MEDS: ACETAMINOPHEN TAB 650MG DOSE (2X325MG) PO PRN ×2 (00:03→12:28)
[2020-10-18 06:00] VITALS: BP 158/64
[2020-10-18] MEDS: HumaLOG INSULIN (NovoLOG) PER UNIT SC SCH ×4 (07:30→21:00)
[2020-10-18] MEDS: COMBIVENT RESPIMAT 100-20MCG INHALER 4GM INH SCH ×2 (07:51→14:08)
[2020-10-18] MEDS: MIRALAX *UNIT DOSE* 17GM PACKET PO PRN (08:44)
[2020-10-18] MEDS: (RENVELA) SEVELAMER **CARBONate** 800 MG TAB PO SCH ×3 (08:44→18:42)
[2020-10-18] MEDS: DOCUSATE SODIUM 100MG CAPSULE PO SCH ×2 (08:44→21:48)
[2020-10-18] MEDS: PANTOPRAZOLE 40MG TAB (PROTONIX) PO SCH (08:44)
[2020-10-18] MEDS: LORATADINE 10 MG TAB PO SCH (08:44)
[2020-10-18] MEDS: ANALGESIC BALM CRM 3OZ TOP SCH ×2 (08:45→21:00)
[2020-10-18] MEDS: **hydrALAZINE HCL** 25 MG TAB PO SCH ×3 (08:45→21:50)
[2020-10-18 14:00] VITALS: BP 168/81
[2020-10-18] MEDS ORDERED: BISACODYL 10 MG SUPP PR PRN (14:45)
[2020-10-18] MEDS ORDERED: FLEET ENEMA PR PRN (14:45)
[2020-10-18] MEDS ORDERED: MAGNESIUM CITRATE 300 ML BTL PO PRN (14:45)
[2020-10-18] MEDS ORDERED: MOM 30ML SUSPENSION UDC PO PRN (14:45)
[2020-10-18] MEDS: ASPIRIN 81MG ENTERIC TABLET PO SCH (21:48)
[2020-10-18] MEDS: CO-ENZYME Q10 50 MG CAP PO SCH (21:48)
[2020-10-18] MEDS: MULTIVITAMINS/MINERALS THERAP 1 TAB PO SCH (21:48)
[2020-10-18] MEDS: traZODone 25MG PER 1/2 TABLET PO SCH (21:48)
[2020-10-18] MEDS: PRAVASTATIN 20 MG TAB PO SCH (21:48)
[2020-10-18] MEDS: amLODIPine 5 MG TAB PO SCH (21:49)
[2020-10-18] MEDS: SENNA 8.6 MG TAB (SENOKOT) PO SCH (21:49)
[2020-10-18] MEDS: CALCIUM/VITAMIN D 500 MG TAB PO SCH (21:49)
[2020-10-18] MEDS: CARVedilol 12.5 MG TAB PO SCH (21:49)
[2020-10-18 22:00] VITALS: BP 144/68
[2020-10-19] MEDS: ACETAMINOPHEN TAB 650MG DOSE (2X325MG) PO PRN ×3 (02:50→22:37)
[2020-10-19 06:00] VITALS: BP 138/58
[2020-10-19] MEDS: COMBIVENT RESPIMAT 100-20MCG INHALER 4GM INH SCH ×3 (08:00→20:00)
[2020-10-19] MEDS: ANALGESIC BALM CRM 3OZ TOP SCH ×2 (09:00→21:21)
[2020-10-19] MEDS: HumaLOG INSULIN (NovoLOG) PER UNIT SC SCH ×4 (09:09→21:00)
[2020-10-19] MEDS: LORATADINE 10 MG TAB PO SCH (09:10)
[2020-10-19] MEDS: (RENVELA) SEVELAMER **CARBONate** 800 MG TAB PO SCH ×3 (09:10→17:18)
[2020-10-19] MEDS: PANTOPRAZOLE 40MG TAB (PROTONIX) PO SCH (09:10)
[2020-10-19] MEDS: DOCUSATE SODIUM 100MG CAPSULE PO SCH ×2 (09:10→21:19)
[2020-10-19] MEDS: **hydrALAZINE HCL** 25 MG TAB PO SCH ×3 (09:14→21:20)
[2020-10-19 09:36] LABS: BASO % 0.7 % (0.0-1.0); EOS # 0.1 10^3/uL (0.0-0.5); EOS % 2.6 % (0.0-3.0); LYMPH # 0.6 10^3/uL (1.5-5.0); LYMPH % 12.4 % (24.0-44.0); MEAN CORPUSCULAR HEMOGLOBIN 28.2 pg (27.0-33.0); MEAN CORPUSCULAR VOLUME 90.9 fl (80.0-96.0); MONO # 0.3 10^3/uL (0.0-0.8); MONO % 7.2 % (2.0-8.0); NEUTROPHILS # 3.5 10^3/uL (1.5-8.5); NEUTROPHILS % 76.9 % (36.0-66.0); PLATELET COUNT, AUTOMATED 171 10^3/uL (150-450); RED BLOOD COUNT 3.19 10^6/uL (4.00-5.40); WHITE BLOOD COUNT 4.6 10^3/uL (4.0-10.0)
--- NOTE | 2020-10-19 09:57 | IPNPDOC ---
PM&R Progress Note DATE OF SERVICE: Oct 19, 2020 Rn Otolaryngology Progress Note Subjective: Patient seen in dialysis stating she feels erady to go home and she does not want to take the hydrocodone any longer. REVIEW OF SYSTEMS: The following is a completed review of systems and has been reviewed. Review of systems otherwise unremarkable. PAIN: Patient self reports no pain EYES: No recent vision changes EARS, NOSE, & THROAT: No throat pain, or dysphagia, or rhinorrhea CARDIOVASCULAR: Denies chest pain or palpitations PULMONARY: Denies shortness of breath GASTROINTESTINAL: + constipation (improved) GENITOURINARY: oliguric MUSCULOSKELETAL: generalized weakness NEUROLOGICAL:+peripheral polyneuropathy HEMATOLOGICAL: +anemic SKIN: denies rash PSYCHIATRIC: Unremarkable All other review of systems found to be negative. PHYSICAL EXAMINATION: VITAL SIGNS: Please see below. GENERAL: Pleasant and cooperative. No acute distress. HEENT: PERRL. Extraocular movements intact. Clear conjunctiva CARDIOVASCULAR: Regular rate and rhythm. No murmurs, rubs, or gallops LUNGS: Clear to auscultation bilaterally. No wheezes. No rhonchi ABDOMEN: Soft, nontender, nondistended. Positive bowel sounds. Normal active bowel sounds NEUROLOGICAL: Alert and oriented times three. Cranial nerves II through XII grossly intact. Sensation diminished to light touch in bilateral stocking pattern EXTREMITIES: 5-\5 strength bilateral upper extremities. 4+\5 strength right lower extremity. 5/5 strength in left lower extremity. ASSESSMENT:75-year-old F with past medical history of ESRD on HD, hx of previous stroke with right sided weakness who presents status post worsening weakness in setting of CHF exacerbation PLAN: 1. Rehab- PT/OT advance mobility and ADLs, strengthen/stretch/maintain ROM all 4 limbs, ambulating with RW 2. Neuro- patient with diabetic peripheral polyneuropathy which is contributing to her overall gait and mobility impairments -hx of stroke with right sided weakness cont secondary stroke management 3. Cardiac- Hx of chronic systolic-diastolic CHF with recent exacerbation- fluid restrict, daily weights, fluid managed primarily by renal docs and dialysis -HTN- cont BP meds -CAD s/p CABG cont asa and coreg -HLD- cont statin -medicine consulted to assist in overall management 4. Resp- on home with hx of bronchiectasis, patient requesting inhaler treatments, cont combivent -monitor for infection 5. Renal- ESRD on HD, renal consulted -cont sevelamer for phosphate management 6. Endo- hx of diabetes with peripheral polyneuropathy- cont insulin and consistent carb diet 7. Pain- tylenol prn, norco prn, and bengay 8. Psych- trazodone for insomnia 9. Dispot- 10-20-20 to home, progressing towards goals Allergies Coded Allergies: Onnysdg-Non-Qkr Reductase Inhibitor (Verified Adverse Reaction, Unknown, PAIN, 10/05/20) PT SAYS SHE CAN TAKE PRAVASTATIN Vital Signs Vital Signs Date Time Temp Pulse Resp B/P (MAP) Pulse Ox O2 Delivery O2 Flow Rate FiO2 10/19/20 09:14 138/63 10/19/20 06:00 98.0 78 18 96 Nasal Cannula 2.0 Laboratory Data CBC/BMP Laboratory Tests 10/19/20 09:23 Labs 24H Laboratory Tests 2 10/18/20 11:41: Bedside Glucose (Misc Panel) 194H 10/18/20 16:26: Bedside Glucose (Misc Panel) 86 10/18/20 20:42: Bedside Glucose (Misc Panel) 131H 10/19/20 07:13: Bedside Glucose (Misc Panel) 129H 10/19/20 09:23: Immature Granulocyte % (Auto) 0.2, Neutrophils (%) (Auto) 76.9H, Lymphocytes (%) (Auto) 12.4L, Monocytes (%) (Auto) 7.2, Eosinophils (%) (Auto) 2.6, Basophils (%) (Auto) 0.7, Neutrophils # (Auto) 3.5, Lymphocytes # (Auto) 0.6L, Monocytes # (Auto) 0.3, Eosinophils # (Auto) 0.1, Basophils # (Auto) 0.0, Nucleated Red Blood Cells % (auto) 0.0 Current Medications Current Medications Current Medications Medications (Trade) Dose Ordered Sig/Jessica Route PRN Reason Start Time Stop Time Status Last Admin Dose Admin Acetaminophen (Tylenol Tab) 650 mg Q4HP PRN PO fever/MILD PAIN (PS 1-4) 10/08/20 14:20 10/19/20 09:13 Acetaminophen/ Hydrocodone Bitart ([place], Anexsia 5/325) 1 tab Q6HP PRN PO MODERATE PAIN (PS 5-7) 10/13/20 14:45 10/15/20 23:10 Al Hydrox/Mg Hydrox/Simethicone (Mylanta) 30 ml Q4HP PRN PO DYSPEPSIA 10/08/20 14:20 Albuterol/ Ipratropium (Combivent Respimat 100-20mcg) 1 puff RTID INH 10/09/20 14:00 10/18/20 14:08 Amlodipine Besylate (Norvasc) 5 mg QHS PO 10/08/20 21:00 10/18/20 21:49 Aspirin (Ecotrin) 81 mg QHS PO 10/08/20 21:00 10/18/20 21:48 Bisacodyl (Dulcolax Suppository) 10 mg DAILYPRN PRN [place] CONSTIPATION 10/18/20 14:45 10/18/20 18:42 Calcium/Vitamin D (Oscal D) 500 mg QHS PO 10/08/20 21:00 10/18/20 21:49 Carvedilol (COReg) 12.5 mg QHS PO 10/08/20 21:00 10/18/20 21:49 Coenzyme Q10 (Coenzyme Q10) 100 mg QHS PO 10/08/20 21:00 11/07/20 20:59 10/18/20 21:48 Darbepoetin Issac (Aranesp (Dialysis Use)) 100 mcg HD IV 10/09/20 10:00 10/12/20 13:11 Dextrose (Dextrose 50%) 25 ml ASDIRECTED PRN IV SEE LABEL COMMENTS 10/08/20 14:20 Docusate Sodium (Colace) 100 mg BID PO 10/08/20 21:00 10/19/20 09:10 Glucagon (Glucagon) 1 mg ASDIRECTED PRN SC SEE LABEL COMMENTS 10/08/20 14:20 Glucose (Glucose) 16 GM ASDIRECTED PRN PO SEE LABEL COMMENTS 10/08/20 14:20 Heparin Sodium (Heparin) Please refer to ... ASDIRECTED XX 10/09/20 08:20 10/10/20 08:19 DC Heparin Sodium (Heparin) Please refer to ... ASDIRECTED XX 10/12/20 06:00 10/13/20 05:59 DC Heparin Sodium (Heparin) Please refer to ... ASDIRECTED XX 10/14/20 10:05 10/15/20 10:04 DC Heparin Sodium (Heparin) Please refer to ... ASDIRECTED XX 10/16/20 13:10 10/17/20 13:09 DC Heparin Sodium (Heparin) dose as per volume indica... ASDIRECTED PRN IV SEE LABEL COMMENTS 10/14/20 10:05 10/15/20 10:04 DC Heparin Sodium (Heparin) dose as per volume indica... ASDIRECTED PRN IV SEE LABEL COMMENTS 10/16/20 13:10 10/17/20 13:09 DC Home Med (Home Med List Complete!) ASDIRECTED XX 10/08/20 15:10 10/08/20 15:09 DC Hydralazine HCl (Apresoline) 25 mg TID PO 10/08/20 16:00 10/19/20 09:14 Insulin Detemir (Levemir Insulin) 5 units DAILY@2100 SC 10/09/20 21:00 10/13/20 10:31 DC 10/12/20 20:37 Insulin Human Lispro (HumaLOG INSULIN) SEE PROTOCOL TABLE AC SC 10/08/20 17:30 10/19/20 09:09 Insulin Human Lispro (HumaLOG INSULIN) SEE PROTOCOL TABLE QHS SC 10/08/20 21:00 10/09/20 21:58 Iron (Venofer) 100 mg HD IV 10/09/20 10:00 10/14/20 17:31 DC 10/14/20 13:46 Lidocaine HCl (Lidocaine 1% Sdv) 0.5 ml ASDIRECTED PRN SC SEE LABEL COMMENTS 10/09/20 08:20 10/10/20 08:19 DC Lidocaine HCl (Lidocaine 1% Sdv) 0.5 ml ASDIRECTED PRN SC SEE LABEL COMMENTS 10/12/20 06:00 10/12/20 08:44 DC Lidocaine HCl (Lidocaine 1% Sdv) 0.5 ml ASDIRECTED PRN SC SEE LABEL COMMENTS 10/14/20 10:05 10/15/20 10:04 DC Lidocaine HCl (Lidocaine 1% Sdv) 0.5 ml ASDIRECTED PRN SC SEE LABEL COMMENTS 10/16/20 13:10 10/17/20 13:09 DC Lidocaine/ Prilocaine (Emla) prior to dialysis Mon/W... HD TOP 10/08/20 14:20 10/12/20 09:11 Loratadine (Claritin) 10 mg DAILY PO 10/09/20 09:00 10/19/20 09:10 Magnesium Hydroxide (Milk Of Magnesia) 30 ml DAILYPRN PRN PO CONSTIPATION 10/18/20 14:45 Magnesium Citrate (Citrate Of Magnesia) 150 ml DAILYPRN PRN PO CONSTIPATION 10/18/20 14:45 10/18/20 15:14 Menthol/Methyl Salicylate (Bengay Cream) 1 dose BID TOP 10/08/20 21:00 10/17/20 20:38 Multivitamins (Theragram-M) 1 tab QHS PO 10/08/20 21:00 10/18/20 21:48 Ondansetron HCl (Zofran Odt) 4 mg Q4HP PRN PO NAUSEA OR VOMITING 10/12/20 10:20 10/13/20 18:48 Pantoprazole Sodium (Protonix) 40 mg DAILY PO 10/09/20 09:00 10/19/20 09:10 Polyethylene Glycol (Miralax) 1 pkt DAILYPRN PRN PO CONSTIPATION 10/13/20 20:20 10/18/20 08:44 Pravastatin Sodium (Pravachol) 80 mg QHS PO 10/08/20 21:00 10/18/20 21:48 Senna (Senokot) 1 tab QHS PO 10/08/20 21:00 10/18/20 21:49 Sevelamer Carbonate (Renvela) 800 mg ASDIRECTED PO 10/08/20 14:20 Sevelamer Carbonate (Renvela) 800 mg WM PO 10/08/20 18:00 10/19/20 09:10 Sodium Biphosphate/ Sodium Phosphate (Fleet Enema) 1 ea DAILYPRN PRN [place] CONSTIPATION 10/18/20 14:45 Sodium Chloride (Nacl 0.9%) 200 ml ASDIRECTED PRN IV SEE LABEL COMMENTS 10/14/20 10:05 10/15/20 10:04 DC Sodium Chloride (Nacl 0.9%) 200 ml ASDIRECTED PRN IV SEE LABEL COMMENTS 10/16/20 13:10 10/17/20 13:09 DC Trazodone HCl (Desyrel) 25 mg QHS PO 10/13/20 21:00 10/18/20 21:48 GURMEET SOLORZANO MD Oct 19, 2020 09:57
[2020-10-19] MEDS ORDERED: LIDOCAINE 1% SDV 5ML VIAL SQ ONE (10:00)
[2020-10-19 10:15] LABS: CALCIUM LEVEL 8.7 MG/DL (8.8-10.2); CREATININE FOR GFR 9.26 MG/DL (0.55-1.30); GLOMERULAR FILTRATION RATE 5.4 (>39); POTASSIUM SERUM 4.6 MEQ/L (3.5-5.1)
[2020-10-19] MEDS: EMLA CREAM 5GM TUBE (LIDOCAINE/PRILOCAINE) TOP SCH (11:48)
[2020-10-19] MEDS: DARBEPOETIN 100 MCG/0.5 ML *DIALYSIS* SYRINGE (J0882) IV SCH (12:45)
[2020-10-19 14:00] VITALS: BP 167/82
--- NOTE | 2020-10-19 15:01 | IPN ---
PROGRESS NOTE DATE: 10/19/2020 SUBJECTIVE: Ms. Acosta is seen this morning on her bedside. She is currently doing her rehab. She denies any nausea, vomiting, dyspnea or chest pain. PHYSICAL EXAMINATION: Temperature 98 degrees Fahrenheit, heart rate 78 per minute and respiratory rate 18 per minute. Blood pressure 138/63 mmHg and oxygen saturation 96% currently on room air. Head: Atraumatic. Neck: Supple and without JVD or thyroid enlargement. Heart: Sounds are regular. Lungs: Clear to auscultation. Abdomen: Soft and nontender and bowel sounds are normal. Extremities: Without any cyanosis or clubbing. Left arm AV fistula is patent. Neurologically: She is awake and without any focal deficit. LABORATORY DATA: Today's labs show: WBC count 4.6, hemoglobin 9, hematocrit 29. Sodium 140, potassium 4.6, CO2 23, BUN 52, creatinine 9.26, glucose 236, calcium 8.7. PROBLEMS/PLAN: 1. End-stage renal disease: Patient is due for dialysis and will be dialyzed this afternoon. 2. Hyponatremia: She has chronic hyponatremia which is slightly worse. Likely to improve with dialysis today. Patient should follow a fluid restriction of 1500 mL per day. 3. Hyperkalemia: Her potassium level has corrected and today she will be dialyzed with a 2 mEq potassium bath. 4. Hypertension: Blood pressure seems very well controlled on current anti-hypertensive medications and no changes are being made. 5. Anemia: Her anemia has been stable and she remains on a weekly dose of Aranesp 100 mcg with dialysis. 6. Weakness and deconditioning: Patient is making some progress with acute rehab. She wants to go home now. 7. Diabetes: Her blood sugars are reasonably well controlled.
[2020-10-19 20:00] VITALS: BP 168/74
[2020-10-19] MEDS: traZODone 25MG PER 1/2 TABLET PO SCH (21:18)
[2020-10-19] MEDS: ASPIRIN 81MG ENTERIC TABLET PO SCH (21:19)
[2020-10-19] MEDS: CALCIUM/VITAMIN D 500 MG TAB PO SCH (21:19)
[2020-10-19] MEDS: CO-ENZYME Q10 50 MG CAP PO SCH (21:19)
[2020-10-19] MEDS: SENNA 8.6 MG TAB (SENOKOT) PO SCH (21:19)
[2020-10-19] MEDS: MULTIVITAMINS/MINERALS THERAP 1 TAB PO SCH (21:19)
[2020-10-19] MEDS: PRAVASTATIN 20 MG TAB PO SCH (21:19)
[2020-10-19] MEDS: amLODIPine 5 MG TAB PO SCH (21:20)
[2020-10-19] MEDS: CARVedilol 12.5 MG TAB PO SCH (21:20)
[2020-10-20] MEDS: ACETAMINOPHEN TAB 650MG DOSE (2X325MG) PO PRN (03:08)
[2020-10-20] MEDS: NORCO, ANEXSIA 5/325MG TABLET (HYDROcodone/ACETAMINOPHEN) PO PRN (05:51)
[2020-10-20 06:00] VITALS: BP 142/54
[2020-10-20] MEDS: HumaLOG INSULIN (NovoLOG) PER UNIT SC SCH ×2 (07:30→12:42)
[2020-10-20] MEDS: COMBIVENT RESPIMAT 100-20MCG INHALER 4GM INH SCH (08:00)
[2020-10-20 08:53] VITALS: BP 142/54
[2020-10-20] MEDS: LORATADINE 10 MG TAB PO SCH (08:53)
[2020-10-20] MEDS: **hydrALAZINE HCL** 25 MG TAB PO SCH (08:53)
[2020-10-20] MEDS: PANTOPRAZOLE 40MG TAB (PROTONIX) PO SCH (08:53)
[2020-10-20] MEDS: DOCUSATE SODIUM 100MG CAPSULE PO SCH (08:53)
[2020-10-20] MEDS: (RENVELA) SEVELAMER **CARBONate** 800 MG TAB PO SCH ×2 (08:53→12:41)
[2020-10-20] MEDS: ANALGESIC BALM CRM 3OZ TOP SCH (08:55)
[2020-10-20] MEDS ORDERED: ASPI-551 PO (09:10)
[2020-10-20] MEDS ORDERED: VITMTA PO (09:10)
[2020-10-20] MEDS ORDERED: HYDR25TA PO (09:10)
[2020-10-20] MEDS ORDERED: RENV2TAB PO (09:10)
[2020-10-20] MEDS ORDERED: PANT40TA29 PO (09:10)
[2020-10-20] MEDS ORDERED: COEN50CA PO (09:10)
[2020-10-20] MEDS ORDERED: PRAV80TA2 PO (09:10)
[2020-10-20] MEDS ORDERED: CLAR10TA7 PO (09:10)
[2020-10-20] MEDS ORDERED: CARV12.5 PO (09:10)
[2020-10-20] MEDS ORDERED: AMLO1TAB24 PO (09:10)
[2020-10-20] MEDS ORDERED: TRAZ-252 PO (09:10)
--- NOTE | 2020-10-20 09:31 | PMRDS ---
NAME: RONNIE BRAN [facility] WT ID#: [id number] JOB: [id number] NATHALIA: 10/08/2020 ACCT: [id number] DOCTOR: GURMEET SOLORZANO MD PMR DISCHARGE SUMMARY DATE OF ADMISSION: 10/08/2020 DATE OF DISCHARGE: 10/20/2020 CHIEF COMPLAINT/DISCHARGE DIAGNOSIS: Weakness in the setting of CHF exacerbation and peripheral polyneuropathy. HISTORY OF PRESENT ILLNESS: This is a 75-year-old female with a past medical history of endstage renal disease on dialysis, CAD status post CABG, diabetes with peripheral polyneuropathy, chronic systolic and diastolic congestive heart failure, CVA with right sided weakness, hypertension, spinal stenosis, hyperlipidemia, anemia of chronic disease, bilateral bronchiectasis who developed worsening shortness of breath and weakness and presented to [facility] ED on 10/05/2020 where she was diagnosed with a CHF exacerbation. Chest x-ray revealed "CHF pattern with suspect small bilateral effusions, cardiomegaly and vascular congestion" and her BNP was elevated to 19,600. She was placed on a fluid restriction, diuresed and dialysis, however had low blood pressures so it was difficult to remove a lot of fluid. She required supplemental oxygen and had persistent weakness in therapy with mobility and ADL impairments and deemed medically appropriate for discharge to ARU on 10/08/2020. PAST MEDICAL HISTORY: As per HPI. HOSPITAL COURSE: Patient was admitted and enrolled in a comprehensive PT/OT program. She received 24 hour nursing supervision and weekly team meetings were held to discuss her progress. She was maintained on a fluid restriction with daily weights in addition to ongoing dialysis for her management of chronic systolic diastolic CHF. She had elevated blood pressures for which she was started on Hydralazine in addition to her beta shante. She was maintained on aspirin for CABG/CAD management. Patient requested breathing treatments with her bronchiectasis and was started on Combivent. Her diabetes was controlled with insulin sliding scale and a consistent carb diet. She made steady gains in therapy and was deemed medically and functionally stable to return home on 10/20/2020. DISCHARGE MEDICATIONS: As per instructions. FUNCTIONAL HISTORY: On discharge, the patient was modified independent for ambulation and functional transfers in addition to ADLs. Thank you for this referral.
--- NOTE | 2020-10-20 11:54 | IPNPDOC ---
Text Note Date of Service The patient was seen on 10/20/20. NOTE Patient seen and examined. No overnight events. For possible discharge today. Physical exam General: NAD, comfortable HEENT: PERRLA, EOMI, sclerae clear Neck: supple, normal ROM, no JVD Respiratory: Diminished with bibasilar crackles heard in posterior lung limon, otherwise no wheezing CVS: RRR, normal S1, S2, no murmurs Abdo: soft, normoactive bowel sounds, soft, NTND Extremities: no edema, WWP MSK: no joint deformities, normal ROM Neuro: no focal neuro deficits, moving all 4 extremities, CN3-12 intact. 5/5 s trength in all 4 extremities Psych: calm, cooperative, AAO x 3 ASSESSMENT: 75-year-old W with coronary artery disease status post CABG, chronic heart failure with reduced ejection fraction, CVA with residual right hemiparesis and slurred speech, type 2 diabetes, hypertension, spinal stenosis, ESRD on dialysis MWF who presented with worsening shortness of breath and tightness across her chest, as well as orthopnea and paroxysmal nocturnal dyspnea and found to have an elevated BNP of 19,600 in the ER and chest x-ray consistent with fluid overload and admitted to [facility] for management of acute congestive heart failure exacerbation. PLAN: #HFrEF exacerbation: Last Echo 04/05/20, LVEF 40%. Now clinically euvolemic -HD per nephrology -Fluid restrict to 1800 cc/day. -strict I/Os -daily weights -2g sodium, renal diet # ESRD on HD MWF since 2016: -Management per nephrology. # Weakness, Debility uses a rolling walke with a history of Spinal stenosis s/p lumbar laminectomy: prior CVA, R sided residual weakness. -PT/OT/and rehabilitation was done. Possible discharge home with home PT # HTN: BP well controlled. -Continue home regimen of Amlodipine, Carvedilol, Hydralazine. 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
[2020-10-20] MEDS ORDERED: COMBAER6 INH (12:51)
== END 2020-10-20 14:25 | disposition home health service (06) | DRG 56 ==
LOC: M PM&R 14:55
PROVIDERS: ADMIT Physical Medicine & Rehabilitation; ATTEND Physical Medicine & Rehabilitation
PROC: 5A1D70Z Performance of Urinary Filtration, Intermittent, Less than 6 Hours Per Day (ICD-10-PCS; principal; 2020-10-09)
DX: I69.351 Hemiplegia and hemiparesis following cerebral infarction affecting right dominant side (principal); N18.6 End stage renal disease; I50.42 Chronic combined systolic (congestive) and diastolic (congestive) heart failure; I13.2 Hypertensive heart and chronic kidney disease with heart failure and with stage 5 chronic kidney disease, or end stage renal disease; E87.1 Hypo-osmolality and hyponatremia; R53.1 Weakness; I25.10 Atherosclerotic heart disease of native coronary artery without angina pectoris; E11.42 Type 2 diabetes mellitus with diabetic polyneuropathy; E11.22 Type 2 diabetes mellitus with diabetic chronic kidney disease; E78.5 Hyperlipidemia, unspecified; M81.0 Age-related osteoporosis without current pathological fracture; E87.5 Hyperkalemia; D63.1 Anemia in chronic kidney disease; J47.9 Bronchiectasis, uncomplicated; Z66 Do not resuscitate; Z74.1 Need for assistance with personal care; Z74.09 Other reduced mobility; Z79.82 Long term (current) use of aspirin; Z99.2 Dependence on renal dialysis; Z95.1 Presence of aortocoronary bypass graft; Z79.899 Other long term (current) drug therapy; Z88.8 Allergy status to other drugs, medicaments and biological substances

== ENCOUNTER 2020-12-10 08:21 | Inpatient (IN) | payer BC, MEDICARE ==
[~2020-12-10] VITALS: Ht 165.1 cm; Wt 68.5 kg
[~2020-12-10 08:21] MED LIST changes: +ASPI-551 PO; +CLAR10TA7 PO; +COEN50CA PO; +COMBAER6 INH; +TRAZ-252 PO
--- OUTSIDE RECORDS SUMMARY | 2020-12-10 08:30 | CCD | Continuity of Care Document ---
Author Author Bree ELDER M.D. Organization Unknown Address [address] [place] [address] Phone [phone] Care Team Providers Care Mailer Name Role Phone Moe Glez D.O. AUTM [phone] Problems Description No Information Available Social History Type Date Description Comments Sex Unknown Allergies, Adverse Reactions, Alerts Description No Information Available Medications Active Medications SIG Qnty Indications Ordering Provide r Date Plavix 75mg Tablets 1 by mouth every day 30tabs Karin Elder M.D. 09/22/2020 Immunizations Description No Information Available Vital Signs Description No Information Available Results Description No Information Available Procedures Date Code Description Status 09/22/2020 68703 Phone Evaluation/Management Phys ician 11-20 Mins Completed 08/13/2020 33067 EEG Recording Awake & Asleep Com pleted 08/13/2020 16266 EEG Recording Awake & Asleep Com pleted 07/30/2020 94404 MRI Brain W/O Contrast Completed 07/30/2020 42448 MRI Brain W/O Contrast Completed 07/30/2020 78944 Magnetic Resonance Angiography N avtar W/O Contrast Materials Completed 07/30/2020 49464 Magnetic Resonance Angiography N avtar W/O Contrast Materials Completed 07/30/2020 12903 Magnetic Resonance Angiogtaphy H ead W/O Contrast Material(S) Completed 07/30/2020 17967 Magnetic Resonance Angiogtaphy H ead W/O Contrast Material(S) Completed 06/23/2020 22174 Office/Outpatient New Moderate M DM 45-59 Minutes Completed Medical Devices Description No Information Available Encounters Type Date Location Provider Dx Diagnosis Office Visit 09/22/2020 9:00a Main office - [place] Elder M.D. R55 Syncope and collapse I67.89 Other cerebrovascular diseas e G43.809 Other migraine, not intracta ble, without status migrainosus I70.223 [place] arteries of ex trm w rest pain, bilateral legs Office Visit 06/23/2020 1:00p Main office - [facility] [place] Elder M.D. I67.89 Other cerebrovascular disease E11.40 Type 2 diabetes mellitus wit h diabetic neuropathy, unsp R25.8 Other abnormal involuntary m ovements R41.3 Other amnesia R41.82 Altered mental status, unspe cified Assessments Date Code Description Provider 09/22/2020 R55 Syncope and collapse Karin webb M.D. 09/22/2020 I67.89 Other cerebrovascular disease Dillon tania Elder M.D. 09/22/2020 G43.809 Other migraine, not intractable, without status migrainosus Karin Elder M.D. 09/22/2020 I70.223 Atherosclerosis of n ative arteries of extremities with rest pain, bilateral legs Karin Elder M.D. 08/13/2020 R41.82 Altered mental status, unspecifi ed Karin Elder M.D. 08/13/2020 R41.82 Altered mental status, unspecifi ed EEG 07/30/2020 I63.9 Cerebral infarction, unspecified Shayne Elder M.D. 07/30/2020 I63.9 Cerebral infarction, unspecified MRI 07/30/2020 R41.82 Altered mental status, unspecifi ed Shayne Elder M.D. 07/30/2020 R41.82 Altered mental status, unspecifi ed MRI 06/23/2020 I67.89 Other cerebrovascular disease Dillon tania Elder M.D. 06/23/2020 E11.40 Type 2 diabetes rosemarie itus with diabetic neuropathy, unspecified Karin Elder M.D. 06/23/2020 R25.8 Other abnormal involuntary movem ents Karin Elder M.D. 06/23/2020 R41.3 Other amnesia Anthony Álvarez 06/23/2020 R41.82 Altered mental status, unspecifi ed Karin Elder M.D. Plan of Treatment No Information Available Functional Status Description No Information Available Mental Status Description No Information Available Referrals Description No Information Available
--- OUTSIDE RECORDS SUMMARY | 2020-12-10 08:30 | CCD | Continuity of Care Document ---
Author Author Bree ELDER M.D. Organization Unknown Address [address] [place] [address] Phone [phone] Care Team Providers Care [employer] Supervisor Name Role Phone Moe Glez D.O. AUTM [phone] Problems Description No Information Available Social History Type Date Description Comments Sex Unknown Allergies, Adverse Reactions, Alerts Description No Information Available Medications Description No Information Available Immunizations Description No Information Available Vital Signs Description No Information Available Results Description No Information Available Procedures Date Code Description Status 08/13/2020 43417 EEG Recording Awake & Asleep Com pleted 08/13/2020 12099 EEG Recording Awake & Asleep Com pleted 07/30/2020 01907 MRI Brain W/O Contrast Completed 07/30/2020 60058 MRI Brain W/O Contrast Completed 07/30/2020 82771 Magnetic Resonance Angiography N avtar W/O Contrast Materials Completed 07/30/2020 98164 Magnetic Resonance Angiography N avtar W/O Contrast Materials Completed 07/30/2020 79270 Magnetic Resonance Angiogtaphy H ead W/O Contrast Material(S) Completed 07/30/2020 88443 Magnetic Resonance Angiogtaphy H ead W/O Contrast Material(S) Completed 06/23/2020 19576 Office/Outpatient New Moderate M DM 45-59 Minutes Completed Medical Devices Description No Information Available Encounters Type Date Location Provider Dx Diagnosis Office Visit 06/23/2020 1:00p Main office - [place] Karin Elder M.D. I67.89 Other cerebrovascular disease E11.40 Type 2 diabetes mellitus wit h diabetic neuropathy, unsp R25.8 Other abnormal involuntary m ovements R41.3 Other amnesia R41.82 Altered mental status, unspe cified Assessments Date Code Description Provider 08/13/2020 R41.82 Altered mental status, unspecifi ed [...]
--- OUTSIDE RECORDS SUMMARY | 2020-12-10 08:30 | CCD ---
Author Author [facility] Organization [facility] Address Unknown Phone Unavailable Care Team Providers Care Supervisor Coin Machine Name Role Phone Rigo Jodi Unavailable PROBLEMS Type Condition ICD9-CM Code MQJ03-UO Code Onset Dates Condition S tatus W/U Status Risk SNOMED Code Notes Problem Hypertension, unspecified type I10 Active confir med 47746762 Problem Diabetes mellitus due to und erlying condition with unspecified complications E08.8 Active confirmed 7572964 Problem Type 2 diabetes mellitus wit hout complication, unspecified whether buttermaker helper insulin use E11.9 Active confirmed 899461241 Problem End stage renal disease N18.6 Active confirmed 491966796 Problem Hyperlipidemia, unspecified hyperlipidemia type E7 8.5 Active confirmed 43290831 Problem Age-related osteoporosis without current pathological fracture M81.0 Active confirmed 90674182 Problem Coronary artery disease invo lving [place] heart without angina pectoris, unspecified vessel or lesion type I25.10 Active confirmed 29312824 Problem Chronic combined systolic and diastolic congesti ve heart failure I50.42 Active confirmed 320030841325333 Problem Essential hypertension I10 Active confirmed 08565635 Problem Dependence on renal dialysis Z99.2 Active confirme d 119311697 ALLERGIES Allergen (clinical drug ingredient) Drug/Non Drug Allergy do cumented on EMR Reaction Allergy Type Onset Date Status Hydroxymethylglutaryl-CoA Reductase Inhibitors Statins Rash Drug Allergy Active ENCOUNTERS from 1945 to 2020-11-06 Encounter Location Date Provider Diagnosis [facility] [address] [facility] [phone] [place] [address] Sep, Jodi Sierra Type 2 diabetes mellitus wit hout complication, unspecified whether buttermaker helper insulin use E11.9 ; Essential hypertension I10 ; Chronic combined systolic and diastolic congestive heart failure I50.42 ; Co ronary artery disease involving [place] heart without angina pectoris, unspecified vessel or lesion type I25.10 ; Age-related osteoporosis without current pathological fracture M81.0 ; History of CVA (cerebrovascular accident) Z86.73 ; End stage renal disease N18.6 ; Dependence on renal dialysis Z99.2 and Spinal stenosis of lumbar region, unspecified whether neurogenic claudication present M48.061 IMMUNIZATIONS No Information SOCIAL HISTORY Tobacco Use: Social History Observation Description Date Details (start date - stop date) Former Smoker Sex Assigned At : Social History Observation Description Sex Assigned At Unknown Education: Question Answer Notes Level of Education: High School Audit Question Answer Notes Total Score: 0 Interpretation: Alcohol Education Language: Question Answer Notes Languages spoken: Mozambican Scientologist: Question Answer Notes Scientologist SDA Domestic Violence: Question Answer Notes Status: Sexual Hx: Question Answer Notes Had sex in the last 12 months (vaginal, oral, or anal)? No Have you ever had an STD? No Drug and Alcohol Question Answer Notes Total Score: 0 Interpretation: No problems reported Alcohol Screening: Question Answer Notes Did you have a drink containing alcohol in the past year? No Points 0 Interpretation Negative Tobacco Use: Question Answer Notes Are you a: former smoker Quit 1983 REASON FOR REFERRAL from 1945 to 2020-11-06 Reason 75yo female, previously foll owed for DM2, discharged due to missed appointments, however she has been admitted at [facility], pls consider resuming care Diagnosis 1 Type 2 diabetes mellitus wit hout complication, unspecified whether residential insulin use (E11.9) Referral Organization [facility] [place] Referring Provider First Name Jodi Referring Provider Last Name Rigo Referring Provider Specialty Family Medicine Referred Provider Anel Pak Referred Provider Specialty Endocrinology Referral Priority Routine General Notes Toya Allen 10/27/2020 4:4 7:33 PM > Heather Sutton 10/30/2020 9:45:11 AM > Anel Pak's office called and stated the patient can not be seen at their office. Patient was discharged for too many missed appointments. VITAL SIGNS Weight 144.8 lbs Sep, Weight-kg 65.68 kg Sep, Height 65 in Sep, BMI 24.09 kg/m2 Sep, Heart Rate 83 /min Sep, Respiratory Rate 17 /min Sep, Temperature 96.3 degrees Fahrenheit Sep, Oximetry UNABLE Sep, Blood pressure systolic 158 mm Hg Sep, Blood pressure diastolic 70 mm Hg Sep, MEDICATIONS Medication SIG (Take, Route, Frequency, Duration) Notes Start Da te End Date Status hydrALAZINE HCl 25 MG 1 tablet with food Orally Three times a da y Apr, Active rOPINIRole HCl 0.25 MG 1 tablet 1 to 3 hours before bedtime Oral ly Once a day Not-Taking Senokot 8.6 MG 1-2 tablets at bedtime as needed Orally Once a day Active Mometasone Furoate 0.1 % 1 application Externally Once a day Not-Taking Aspir-81 1 tab orally before bedtime Active amLODIPine Besylate 5 MG 1 tablet Orally before bedtime Active Lantus SoloStar 100 UNIT/ML 16 units Subcutaneous Daily for 30 D ays Apr, Not-Taking Lantus SoloStar 100 UNIT/ML as directed Subcutaneous Not-Taking Gabapentin 100 MG 1 capsule Orally before bedtime Not-Taking Carvedilol 12.5 MG 1 tablet with food Orally before bedtime Apr, Active Combivent Respimat 20-100 mcg/act 1 puff Inhalation Four times daily Active Pantoprazole Sodium 40 MG 1 tablet Orally Once a day for 30 day(s) Active amLODIPine Besylate 5 MG 1 tablet Orally Once a day for 30 day(s ) Apr, Unknown Zofran 4 MG 1 tablet Orally prn (nausea or vomiting) Active Gabapentin 100 MG 1 capsule Orally Once a day for 30 day(s) Apr, Not-Taking Venlafaxine HCl 37.5 MG one half Orally three times daily Not-Taking Loratadine 10 MG 1 tablet Orally Once a day for 30 day(s) Active Pravastatin Sodium 80 MG 1 tablet Orally Once a day for 30 day(s ) Apr, Active traMADol HCl 50 MG 1 tablet as needed Orally three times daily Not-Taking Prolia 60mg injection every 6 months Active Aspirin 81 MG 1 tablet Orally Once a day for 30 day(s) Apr, Not-Taking Renvela 800 MG 1 tablet with meals Orally as directed Active Lancets Ultra Thin - as directed subcutaneously Daily for 30 Day s May, Active Levemir Flex Touch 100 UNIT/ML 5 units Subcutaneous before bedtime Active HumaLOG KwikPen 100 UNIT/ML as directed Subcutaneous per SS Active Pravastatin Sodium 80 MG 1 tablet Orally before bedtime for 90 days Not-Taking Oscal 500/200 D-3 Active Co Enzyme Q-10 Active PROCEDURES No Information RESULTS No Results REASON FOR VISIT TO [facility] MEDICAL (GENERAL) HISTORY Type Description Date Medical History Stroke 01/2019 Medical History Heart Attack 2010 Medical History Diabetes Medical History ESRD on HD Medical History Osteoporosis Medical History HTN Medical History CHF Medical History Spinal Stenosis Surgical History Heart Bypass 2012 Surgical History Hysterectomy 2016 Surgical History Lumbar Laminectomy ? Hospitalization History [facility] "couldn't breathe" 09/2020 Goals Section No Information Health Concerns No Information MEDICAL EQUIPMENT No Information MENTAL STATUS No Information FUNCTIONAL STATUS No Information ASSESSMENTS Encounter Date Diagnosis Assessment Notes Treatment Notes Treatm ent Clinical Notes Sep, Type 2 diabetes mellitus wit hout complication, unspecified whether residential insulin use (ICD-10 - E11.9) Referral back to endocrinology to re-establish care. Plan hemoglobin a1c and microalbumin as appears due. Encouraged her to check FBG, especially as she is using insulin. Sep, Essential hypertension (ICD-10 - I10) managed by cardiology, continue as directed Sep, Chronic combined systolic an d diastolic congestive heart failure (ICD-10 - I50.42) managed by cardiology, continue as directed Sep, Coronary artery disease invo lving [place] heart without angina pectoris, unspecified vessel or lesion type (ICD-10 - I25.10) managed by cardiology, continue as directed Sep, Age-related osteoporosis wit hout current pathological fracture (ICD-10 - M81.0) previously managed by endocrinology, receives prolia inj, referal placed to re- establish care Sep, History of CVA (cerebrovascular accident) (ICD-1 0 - Z86.73) On statin, continue at this time, was scheduled to receive PT w/ [facility] upon recent discaharge, pt declines services at this time Sep, End stage renal disease (ICD-10 - N18.6) managed by nephrology, continue as directed Sep, Dependence on renal dialysis (ICD-10 - Z99.2) see notes above Sep, Spinal stenosis of lumbar re [place], unspecified whether neurogenic claudication present (ICD-10 - M48.061) uses rolling walker, see notes above regarding PT, s/p lumbar laminectomy, no further tx indicated PLAN OF TREATMENT Treatment Notes Assessment Notes Clinical Notes Type 2 diabetes mellitus without complic ation, unspecified whether buttermaker helper insulin use Referral back to endocrinolo gy to re-establish care. Plan hemoglobin a1c and microalbumin as appears due. Encouraged her to check FBG, especially as she is using insulin. Essential hypertension managed by cardio logy, continue as directed Chronic combined systolic and diastolic congestive heart nancy lure managed by cardiology, continue as directed Coronary artery disease involving [place] heart without angina pectoris, unspecified vessel or lesion type managed by cardiolog y, continue as directed Age-related osteoporosis without current pathological fractu re previously managed by endocrinology, receives prolia inj, referal placed to re-establish care History of CVA (cerebrovascular accident) On statin, continue at this time, was scheduled to receive PT w/ [facility] upon recent discaharge, pt declines services at this time End stage renal disease managed by nephariela gallagher, continue as directed Dependence on renal dialysis see notes a abdifatah Spinal stenosis of lumbar region, unspec ified whether neurogenic claudication present uses rolling walker, see not es above regarding PT, s/p lumbar laminectomy, no further tx indicated Future Test Test Name Order Date HEMOGLOBIN A1c 20201027 MICROALBUMIN RANDOM 20201027 Referrals Referral Date Details 75yo female, previously foll owed for DM2, discharged due to missed appointments, however she has been admitted at [facility], pls consider resuming care, Anel Pak Next Appt Details 6 Months Reason: Provider Name:Jodi Sierra, 10:00:00 AM, [address] [facility], , [place], [address], Insurance Providers Payer Name Payer Address Payer Phone Insured Name Patient Relati onship to Insured Coverage Start Date Coverage End Date BISHOP ALMARAZ PPO [phone] [facility] [place] [address] RONNIE BRAN MEDICARE Part A and B [facility] [address] [place] [address] [phone] RONNIE BRAN
--- OUTSIDE RECORDS SUMMARY | 2020-12-10 08:30 | CCD | Continuity of Care Document ---
Author Author Ronnie WILLIAMSON MD Organization Unknown Address [address], [address] [place] [address] Phone [phone] Care Team Providers Care Spearer Name Role Phone Julio Daniel M.D. AUTM [phone] AUTM Unavailable Seun Jerome M.D. AUTM [phone] Problems Active Problems Provider Date Essential hypertension Osei Anna M.D. Onset: 2 Pure hypercholesterolemia Osei Anna M.D. Onset: 2011 Type II diabetes mellitus uncontrolled Osei Anna M.D. Onset: 12/01/2011 Hypothyroidism Osei Anna M.D. Onset: 12/01/2011 End stage renal failure on dialysis Osei Anna M.D. Ons et: 01/11/2012 End-stage renal disease Osei Anna M.D. 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 Social History Type Date Description Comments Sex Unknown ETOH Use Denies alcohol use Tobacco Use Start: Unknown End: Unknown Patient is a former smoker quit 1993 Recreational Drug Use Denies Drug Use Smoking Status Reviewed: 08/18/20 Patient is a former smoker qu it 1993 Exercise Type/Frequency Exercises rarely Allergies and adverse reactions Active Allergies Criticality Reaction | Severity Comments Date Zocor Unable to assess criticality 04/17/2007 Lipitor Unable to assess criticality 04/17/2007 Crestor Unable to assess criticality 04/17/2007 Inactive Allergies NKDA Unable to assess criticality 12/01/2011 Medications Active Medications SIG Qnty Indications Ordering Provide r Date Aspirin 81mg Tablets DR 1 po qd Unknown Calcium 600mg Tablets 1 po qd Unknown Coq10 Capsules 1 PO Daily Unknown Lantus 100Unit/ML Solution 19 Units every night at bedtime Unknown Pravastatin Sodium 40mg Tablets 1 qd Unknown Carvedilol 12.5mg Tablets Take 1 Tablet By Mouth Twice Daily Unknown Sevelamer Carbonate 800mg Tablets Take 1 Tablet By Mouth Twice A Day With Meals Unknown Immunizations Description No Information Available Vital Signs Date Vital Result Comment 12/07/2020 4:05pm BP Systolic 166 mmHg BP Diastolic 81 mmHg Heart Rate 81 /min Body Temperature 98.4 F Height 65 inches 5'5" [place] Body Weight 125 lb 08/18/2020 1:32pm BP Systolic 130 mmHg BP Diastolic 68 mmHg Height 65 inches 5'5" Weight 144.00 lb BMI (Body Mass Index) 24.0 kg/m2 [place] Body Weight 125 lb Weight 65.318 kg BSA (Body Surface Area) 1.72 m2 Results Description No Information Available Procedures Date Code Description Status 12/07/2020 31059 Office/Outpatient Established Mo d MDM 30-39 Min Completed 08/18/2020 30851 Office/Outpatient Established Lo w MDM 20-29 Min Completed 07/28/2020 65377 Hospital Consult Initial Level 2 Completed 07/28/2020 81665 Translum Balloon Ang io Central Dial Segment Through Dialys Circui Completed 07/28/2020 87030 Dialysis Circuit W/ Transluminal Balloon Angioplasty, Peripheral Completed 07/09/2020 14334 Office/Outpatient Established Lo w MDM 20-29 Min Completed Medical Devices Description No Information Available Encounters Type Date Location Provider Dx Diagnosis Office Visit 12/07/2020 4:15p Located Within [facility] Rat na Carissa Williamson MD N18.6 End stage renal disease Z99.2 Dependence on renal dialysis 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, init I70.293 Oth athscl [place] arteries o f extremities, bilateral legs Office Visit 08/18/2020 1:15p Located Within [facility] TAURUS Espinoza N18.6 End stage renal disease Z99.2 Dependence on renal dialysis I70.213 Athscl [place] arteries of ex trm w intrmt lawanda, bi legs Office Visit 07/28/2020 3:30p Located Within [facility] Juanis gaming MD T82.598A [facility] compl of cardiac and vascular devic es and implnt, init N18.6 End stage renal disease Office Visit 07/09/2020 9:15a [facility] TAURUS Espinoza N18.6 End stage renal disease Z99.2 Dependence on renal dialysis M79.89 Other specified soft tissue disorders Assessments Date Code Description Provider 12/07/2020 N18.6 End stage renal disease Alma Williamson MD 12/07/2020 Z99.2 Dependence on renal dialysis Victor M Williamson MD 12/07/2020 T82.858A Stenosis of other va scular prosthetic devices, implants and grafts, initial encounter Alma Williamson MD 12/07/2020 I70.293 Other atherosclerosi s of [place] arteries of extremities, bilateral legs Alma Williamson MD 08/18/2020 N18.6 End stage renal disease TAURUS Cleaning 08/18/2020 Z99.2 Dependence on renal dialysis TAURUS Marina 08/18/2020 I70.213 Atherosclerosis of n ative arteries of extremities with intermittent claudication, bilateral legs TAURUS Salazar 07/28/2020 T82.598A Other mechanical com plication of other cardiac and vascular devices and implants, initial encounter Juanis Capone MD 07/28/2020 N18.6 End stage renal disease Juanis apodaca MD 07/09/2020 N18.6 End stage renal disease TAURUS Cleaning 07/09/2020 Z99.2 Dependence on renal dialysis TAURUS [place] 07/09/2020 M79.89 Other specified soft tissue diso rders TAURUS Salazar Plan of Treatment Future Appointment(s):* 12/31/2020 10:00 am - Alma Williamson MD at [facility] 12/07/2020 - Alma Williamson MD* N18.6 End stage renal disease* Comments:* She is on hemodialysis, through the left arm AV fistula, which is currently functioning well. She had a balloon angioplasty in 08/17, for left arm swelling, associated with basilic vein, axillary vein and subclavian vein stenosis.She was asymptomatic for 2 months after the procedure, after which her symptoms recurred. However she has no problem with the fistula, during dialysis.Plan:Suggest left arm dialysis access ultrasound and ultrasound of the central veins, to plan intervention as required. Follow-up after ultrasoundSuggest left arm elevation to improve swelling and pain.She knows to seek immediate vascular consultation, if she develops any problems with the fistula, during the dialysis * Z99.2 Dependence on renal dialysis* Comments:* See #1 * T82.858A Stenosis of other vascular prosthetic devices, implants and grafts, initial encounter* Comments:* See #1 * I70.293 Other atherosclerosis of [place] arteries of extremities, bilateral legs* Comments:* History of right lower extremity arteriogram, with tibial artery intervention. She does not ambulate much to have claudication. She denies ischemic rest pain of the legs. She has no ulcers or wounds of the legs of the feet.She denied follow-up lower extremity arterial ultrasound, and lower extremity exam.Continue aspirin and statin Functional Status Description No Information Available Mental Status Description No Information Available Referrals Refer to Reason for Referral Status Appt Date Seun Jerome M.D. DEAR DOCTORS: PLEASE EVALUA TE AND TREAT RONNIE BRAN FOR SWELLING OF LEFT ARM FISTUA. I HAVE ATTACHED OUR LAST NOTE AND PAST TESTING FOR YOUR REVIEW. PATIENT IS ASKING TO BE SEEN IMMEDIATELY. THANK YOU IN ADVANCE FOR SEEING HER. SINCERELY, ALMA WILLIAMSON M.D. Scheduled 12/30/2020 [facility] [address], [address] [place] [address] [phone] Juanis Capone MD SWOLLEN ARM Scheduled 07/09/[address] [place] [address], [address] [place] [address] [phone]
--- OUTSIDE RECORDS SUMMARY | 2020-12-10 08:30 | CCD | Continuity of Care Document ---
Author Author Ronnie WILLIAMSON MD Organization Unknown Address [address] [facility], [address] [place] [address] Phone [phone] Care Team Providers Care Oiler And Greaser Name Role Phone Julio Daniel M.D. AUTM [phone] AUTM Unavailable Seun Jerome M.D. AUTM [phone] Problems Active Problems Provider Date Essential hypertension [...] Temperature 98.4 F Height 65 inches 5'5" [place] Body Weight 125 lb 08/18/2020 1:32pm BP Systolic 130 mmHg BP Diastolic 68 mmHg Height 65 inches 5'5" Weight 144.00 lb BMI (Body Mass Index) 24.0 kg/m2 [place] Body Weight 125 lb Weight 65.318 kg BSA (Body Surface Area) 1.72 m2 Results Description No Information Available Procedures Date Code Description Status 12/07/2020 93300 Office/Outpatient Established Mo d MDM 30-39 Min Completed 08/18/2020 76962 Office/Outpatient Established Lo w MDM 20-29 Min Completed 07/28/2020 78356 Hospital Consult Initial Level 2 Completed 07/28/2020 74443 Translum Balloon Ang io Central Dial Segment Through Dialys Circui Completed 07/28/2020 32410 Dialysis Circuit W/ Transluminal Balloon Angioplasty, Peripheral Completed 07/09/2020 14881 Office/Outpatient Established Lo w MDM 20-29 Min Completed Medical Devices Description No Information Available Encounters Type Date Location Provider Dx Diagnosis Office Visit 12/07/2020 4:15p [facility] Rat na Carissa Williamson MD N18.6 End stage renal disease Z99.2 Dependence on renal dialysis 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, init I70.293 Oth athscl [place] arteries o f extremities, bilateral legs Office Visit 08/18/2020 1:15p [facility] TAURUS Epsinoza N18.6 End stage renal disease Z99.2 Dependence on renal dialysis I70.213 Athscl [place] arteries of ex trm w intrmt lawanda, bi legs Office Visit 07/28/2020 3:30p [facility] Juanis gaming MD T82.598A [facility] compl of cardiac and vascular devic es and implnt, init N18.6 End stage renal disease Office Visit 07/09/2020 9:15a [facility] TAURUS Espinoza N18.6 End stage [...] MD 12/07/2020 I70.293 Other atherosclerosi s of [place] arteries of extremities, bilateral legs Alma Williamson [...] 10:00 am - Alma Williamson MD at [facility] 12/07/2020 - Alma Williamson MD* [...] See #1 * I70.293 Other atherosclerosis of [place] arteries of extremities, bilateral legs* Comments:* History [...] WILLIAMSON M.D. Scheduled 12/30/2020 [facility] [address], [address] [place] [address] [phone] Juanis Capone MD SWOLLEN ARM Scheduled 07/09/[address] [place] [address], [address] [place] [address] [phone]
--- OUTSIDE RECORDS SUMMARY | 2020-12-10 08:30 | CCD | Continuity of Care Document ---
Author Author Ronnie WILLIAMSON MD Organization Unknown Address [address] [facility] [facility] [address] [facility], [address] [place] [address] Phone [phone] Care Team Providers Care Charcoal Unloader Name Role Phone Julio Daniel M.D. AUTM [phone] AUTM Unavailable Seun Jerome M.D. AUTM [phone] Problems Active Problems Provider Date Essential hypertension [...] Temperature 98.4 F Height 65 inches 5'5" [place] Body Weight 125 lb 08/18/2020 1:32pm BP Systolic 130 mmHg BP Diastolic 68 mmHg Height 65 inches 5'5" Weight 144.00 lb BMI (Body Mass Index) 24.0 kg/m2 [place] Body Weight 125 lb Weight 65.318 kg BSA (Body Surface Area) 1.72 m2 Results Description No Information Available Procedures Date Code Description Status 12/07/2020 28860 Office/Outpatient Established Mo d MDM 30-39 Min Completed 08/18/2020 61963 Office/Outpatient Established Lo w MDM 20-29 Min Completed 07/28/2020 42358 Hospital Consult Initial Level 2 Completed 07/28/2020 76041 Translum Balloon Ang io Central Dial Segment Through Dialys Circui Completed 07/28/2020 53837 Dialysis Circuit W/ Transluminal Balloon Angioplasty, Peripheral Completed 07/09/2020 76378 Office/Outpatient Established Lo w MDM 20-29 Min Completed Medical Devices Description No Information Available Encounters Type Date Location Provider Dx Diagnosis Office Visit 12/07/2020 4:15p [facility] Rat na Carissa Williamson MD N18.6 End stage renal disease Z99.2 Dependence on renal dialysis 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, init I70.293 Oth athscl [place] arteries o f extremities, bilateral legs Office Visit 08/18/2020 1:15p [facility] TAURUS Espinoza N18.6 End stage renal disease Z99.2 Dependence on renal dialysis I70.213 Athscl [place] arteries of ex trm w intrmt lawanda, bi legs Office Visit 07/28/2020 3:30p [facility] Juanis gaming MD T82.598A [facility] compl of cardiac and vascular devic es and implnt, init N18.6 End stage renal disease Office Visit 07/09/2020 9:15a [facility] TAURUS Espinoza N18.6 End stage [...] MD 12/07/2020 I70.293 Other atherosclerosi s of [place] arteries of extremities, bilateral legs Alma Williamson [...] 10:00 am - Alma Williamson MD at [facility] 12/07/2020 - Alma Williamson MD* [...] See #1 * I70.293 Other atherosclerosis of [place] arteries of extremities, bilateral legs* Comments:* History [...] WILLIAMSON M.D. Scheduled 12/30/2020 [facility] [address], [address] [place] [address] [phone] Juanis Capone MD SWOLLEN ARM Scheduled 07/09/[address] [place] [address], [address] [place] [address] [phone]
--- OUTSIDE RECORDS SUMMARY | 2020-12-10 08:30 | CCD | Continuity of Care Document ---
Author Author Ronnie WILLIAMSON MD Organization Unknown Address [address], [address] [place] [address] Phone [phone] Care Team Providers Care Track Repairer Name Role Phone Julio Daniel M.D. AUTM [phone] AUTM Unavailable Seun Jerome M.D. AUTM [phone] Problems Active Problems Provider Date Essential hypertension [...] Temperature 98.4 F Height 65 inches 5'5" [place] Body Weight 125 lb 08/18/2020 1:32pm BP Systolic 130 mmHg BP Diastolic 68 mmHg Height 65 inches 5'5" Weight 144.00 lb BMI (Body Mass Index) 24.0 kg/m2 [place] Body Weight 125 lb Weight 65.318 kg BSA (Body Surface Area) 1.72 m2 Results Description No Information Available Procedures Date Code Description Status 12/07/2020 36329 Office/Outpatient Established Mo d MDM 30-39 Min Completed 08/18/2020 82235 Office/Outpatient Established Lo w MDM 20-29 Min Completed 07/28/2020 94031 Hospital Consult Initial Level 2 Completed 07/28/2020 32932 Translum Balloon Ang io Central Dial Segment Through Dialys Circui Completed 07/28/2020 33595 Dialysis Circuit W/ Transluminal Balloon Angioplasty, Peripheral Completed 07/09/2020 07976 Office/Outpatient Established Lo w MDM 20-29 Min Completed Medical Devices Description No Information Available Encounters Type Date Location Provider Dx Diagnosis Office Visit 12/07/2020 4:15p [facility] Rat na Carissa Williamson MD N18.6 End stage renal disease Z99.2 Dependence on renal dialysis 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, 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.] MD 12/07/2020 I70.293 Other atherosclerosi s of [place] arteries of extremities, bilateral legs Alma Williamson [...] 10:00 am - Alma Williamson MD at [facility] 12/07/2020 - Alma Williamson MD* [...] See #1 * 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 Scheduled 12/30/2020 [facility] [address], [address] [place] [address] [phone] Juanis Capone MD SWOLLEN ARM Scheduled 07/09/[address] [place] [address], [address] [place] [address] [phone]
--- OUTSIDE RECORDS SUMMARY | 2020-12-10 08:31 | CCD ---
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 AWAKE&ASLEEP 08/13/2020 12: 00:00 AM EDT [facility] ([facility], ) ELECTROENCEPHALOGRAM W/REC AWAKE&ASLEEP 08/13/2020 12: 00:00 AM EDT [facility] ([facility], ) POCT AMB EKG <td>POCT AMB EKG</td><td>Rou valerie</td><td>08/11/2020 2:42 PM EDT</td><td> 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</td><td> </td> 08/11/2020 02:42:00 PM EDT Coronary artery disease involving tavera ry bypass graft of aniak heart without angina pectoris [facility] Coronary artery disease involving tavera ry bypass graft of aniak heart without angina pectoris Magnetic Resonance Angiogtaphy Head W/O Contrast Material(S) 07/30/2020 12:00:00 AM EDT [facility] ([facility], ) Magnetic Resonance Angiogtaphy Head W/O Contrast Material(S) 07/30/2020 12:00:00 AM EDT [facility] ([facility], ) Magnetic Resonance Angiography Neck W/O Contrast Materials 07/30/2020 12:00:00 AM EDT [facility] ([facility], ) Magnetic Resonance Angiography Neck W/O Contrast Materials 07/30/2020 12:00:00 AM EDT [facility] ([facility], ) MRI BRAIN BRAIN STEM W/O CONTRAST MATERIAL 07/30/2020 12:00:00 AM EDT [facility] ([facility], ) MRI BRAIN BRAIN STEM W/O CONTRAST MATERIAL 07/30/2020 12:00:00 AM EDT [facility] ([facility], ) Dialysis Circuit W/ Transluminal Balloon Angioplasty, Periph eral 07/28/2020 12:00:00 AM EDT [facility] Translum Balloon Angio Central Dial Segment Through Dialys C ircui 07/28/2020 12:00:00 AM EDT [facility] ([facility] INITL INPATIENT CONSULT NEW/ESTAB PT 40 MIN 07/28/2020 12:00[facility] [place] [place] [facility], ) OFFICE OUTPATIENT VISIT 15 MINUTES 07/09/2020 12:00:00 AM [facility] ([facility], ) THER PX 1/> AREAS EA 15 MIN GAIT TRAINJ W/STAIR GAIT TRAININ G THERAPY 07/07/2020 12:00:00 AM [facility] THER PX 1/> AREAS EACH 15 MIN NEUROMUSC REEDUCAJ NEUROMUSCUL AR REEDUCATION 07/02/2020 12:00:00 AM [facility] THERAPEUTIC PX 1/> AREAS EACH 15 MIN EXERCISES THERAPEUTIC E XERCISES 07/02/2020 12:00:00 AM [facility] OFFICE OUTPATIENT NEW 45 MINUTES 06/23/2020 12:00:00 A M [facility] ([facility], ) [id number] PT EVAL LOW COMPLEX 20 MIN 06/02/2020 12:00:00 AM [facility] BLOOD COUNT COMPLETE AUTO&AUTO DIFRNTL WBC COUNT <td>C BC AND DIFFERENTIAL</td><td>Routine</td><td>05/26/2020</td><td></td><td> </td> 05/26/2020 12:00:00 AM [facility] HEMOGLOBIN GLYCOSYLATED A1C <td>HEMOGLOBIN A1C</td><td>Routine</td><td>05/26/2020</td><td></td><td> </td> 05/26/2020 12:00:00 AM [facility] HEPATIC FUNCTION PANEL <td>HEPATIC FUNCTION PANEL</td><td>Routine</td><td>05/26/2020</td><td></td><td> </td> 05/26/2020 12:00:00 AM [facility] LIPID PANEL <td>LIPID PANEL</td><td>Rout ine</td><td>05/26/2020</td><td></td><td> </td> 05/26/2020 12:00:00 AM EDT [facility] BASIC METABOLIC PANEL CALCIUM TOTAL <td>BASIC METABOLI C PANEL</td><td>Routine</td><td>05/26/2020</td><td></td><td> </td> 05/26/2020 12:00:00 AM EDT [facility] BASIC METABOLIC PANEL CALCIUM TOTAL <td>BASIC METABOLI C PANEL</td><td>Routine</td><td>05/12/2020</td><td></td><td> </td> 05/12/2020 12:00:00 AM EDT [facility] TROPONIN QUANTITATIVE <td>TROPONIN I</td><td>Routine</td><td>05/11/2020</td><td></td><td> </td> 05/11/2020 12:00:00 AM EDT [facility] THYROID STIMULATING HORMONE TSH <td>TSH</td><td>Routine</td><td>05/11/2020</td><td></td><td> </td> 05/11/2020 12:00:00 AM EDT [facility] BASIC METABOLIC PANEL CALCIUM TOTAL <td>BASIC METABOLI C PANEL</td><td>Routine</td><td>05/11/2020</td><td></td><td> </td> 05/11/2020 12:00:00 AM EDT [facility] ECG ROUTINE ECG W/LEAST 12 LDS W/I&R <td>POCT AMB EKG</td><td>Routine</td><td>03/17/2020 12:45 PM EST</td><td> Ischemic cardiomyopathy EF 35%</td><td> </td> 03/17/2020 05:45:00 PM EST Ischemic cardiomyopathy EF 35% [facility] Ischemic cardiomyopathy EF 35% Revascularization,Endovascular,Transluminal Angioplasty 01/28/2020 12:00:00 AM EST [facility] ([facility] ) REVSC OPN/PRQ TIB/RICH W/ANGIOPLASTY UNI 01/28/2020 12 :00:00 AM EST [facility] ([facility], ) REVSC OPN/PRQ TIB/RICH W/ANGIOPLASTY UNI EA VSL 2019 12:00:00 AM EST [facility] ([facility], ) Moderate Sedation Services; Same Phys Intl 15 Mins; PT >= 5 Years 01/28/2020 12:00:00 AM EST [facility] ([facility] ) Dialysis Circuit W/ Transluminal Balloon Angioplasty, Periph eral 01/21/2020 12:00:00 AM EST [facility] ([facility] ) Translum Balloon Angio Central Dial Segment Through Dialys C ircui 01/21/2020 12:00:00 AM EST [facility] ([facility] ) Moderate Sedation Services; Same Phys Intl 15 Mins; PT >= 5 Years 01/21/2020 12:00:00 AM EST [facility] ([facility] ) Dialysis Circuit W/ Transluminal Balloon Angioplasty, Periph eral 10/18/2019 12:00:00 AM EDT [facility] ([facility] ) Translum Balloon Angio Central Dial Segment Through Dialys C ircui 10/18/2019 12:00:00 AM EDT [facility] ([facility] ) Moderate Sedation Services; Same Phys Intl 15 Mins; PT >= 5 Years 10/18/2019 12:00:00 AM EDT [facility] ([facility] ) Results ID Date Data Source [id number] 11/18/2020 05:31:00 PM EDT [facility] Imaging Services Department Imaging Report [address], [place] [address] Name: RONNIE ACOSTA : 1945 Age/Sex: 75F Ordering Provider: Moe Champion DO Med Rec #: [id number] Date of Service: 11/17/20 Report Number: [id number] cc: Moe Champion DO Send Report To: [id number] MAMMOSCR/Screening Digital Mammo CAD Reason for Exam: SCREENING Patient States Last CBE: over 1 year Is this a follow up exam: Follow up to: Patient's Gauri Model Lifetime risk of developing breast cancer: 4% Examination is compared to 11/20/18 and 11/14/17. FINDINGS: Craniocaudad and oblique views of the breasts were obtained. The breasts are composed of scattered fibroglandular densities. There is no dominant mass, suspicious clustered calcification, nor architectural distortion. IMPRESSION: NO MAMMOGRAPHIC EVIDENCE OF MALIGNANCY. YEARLY SCREENING RECOMMENDED. This mammogram was performed digitally and interpreted with the aid of ICAD, an FDA-approved, computer-aided detection system. OVERALL FINAL ASSESSMENT OF BREAST COMPOSITION: BIRADS CLASSIFICATION: B DESCRIPTION: There are scattered areas of fibroglandular density. OVERALL FINAL ASSESSMENT OF FINDINGS: BIRADS CLASSIFICATION: 2 DESCRIPTION: BENIGN. REPORT SIGNATURE ON FILE 11/19/20 1212 Reported By: Ray Pardo MD <Electronically signed by Kiana Pardo MD>11/19/201211 Dictation Date/Time: 11/17/201751 Transcribed Date/Time: 11/18/201730 Metal Template Maker: VINCENZO Name Value Range Interpretation Code Description Data Liv rce(s) Supporting Document(s) ID Date Data Source [id number] 10/05/2020 04:32:00 PM EDT [facility] Name Value Range Interpretation Code Description Data Liv rce(s) Supporting Document(s) SARS-CoV-2 (COVID 19) NEGATIVE - SARS-CoV-2 (COVID19) [facility] This lab was ordered by [facility] a nd reported by [facility]. ID Date Data Source [id number] 06/05/2020 05:18:00 AM EDT [facility] Imaging Services Department Imaging Report [address], [place] [address] %(RAD)RES..mtdd.print.filter("line") Name: RONNIE ACOSTA : 1945 Age/Sex: 75F Ordering Provider: TAURUS Richardson Med Rec #: [id number] Reg Status: [facility] Room #: Date of Service: 06/04/20 Report Number: [id number] cc:Moe Alvarez Reason, DO Send Report To: [id number] XRP/XR Ribs Rt w PA Chest Reason for exam: Fell 5 days ago FINDINGS: No displaced rib fracture. No rib lesion. Mild basilar atelectasis. No effusion. No pneumothorax. Patient is status post sternotomy. IMPRESSION: Negative right rib series. No fracture. Mild basilar atelectasis. Time portable performed: Fluoroscopy time in seconds: Number of Exposures: Contrast Agent in ml: Method of Administration: REPORT SIGNATURE ON FILE Reported By: Roger Temple DO <Electronically signed by Roger Temple DO> 06/08/20 1036 Dictation Date/Time: 06/04/20 1349 Transcribed Date/Time: 06/05/20 0518 Metal Template Maker: VINCENZO Name Value Range Interpretation Code Description Data Liv rce(s) Supporting Document(s) ID Date Data Source [id number] 05/26/2020 09:07:00 PM EDT [facility] Value Range Interpretation Code Description Data Liv rce(s) Supporting Document(s) FESAT Iron result 28 ug/dL 37-170 [facility] Test Performed By: [facility] [address] [place] [address] Director: Yassine Wade MD FESAT TIBC result 179 ug/dL 265-497 [facility] Test Performed By: [facility] [address] [place] [address] Director: Yassine Wade MD FESAT %Iron Saturation result 12.0-55.0 No rmal (applies to non-numeric results) [facility] Test Performed By: [facility] [address] [place] [address] Director: Yassine Wade MD ID Date Data Source [id number] 05/26/2020 09:07:00 PM [facility] Value Range Interpretation Code Description Data Liv rce(s) Supporting Document(s) Ferritin result 1588 ng/mL 11.1-264.0 [facility] Test Performed By: [facility] [address] [place] [address] Director: Yassine Wade MD ID Date Data Source [id number] 05/26/2020 09:07:00 PM [facility] Value Range Interpretation Code Description Data Liv rce(s) Supporting Document(s) CPK result 82 U/L 26-192 Normal (applies to non-numeric resul ts) [facility] Test Performed By: [facility] [address] [place] [address] Director: Yassine Wade MD ID Date Data Source [id number] 05/26/2020 09:07:00 PM T [facility] Name Value Range Interpretation Code Description Data Liv rce(s) Supporting Document(s) Vitamin B12 result 774 pg/mL 193-986 Normal (applies to non-numer ic results) [facility] Test Performed By: [facility] [address] [place] [address] Director: Yassine Wade MD ID Date Data Source [id number] 05/26/2020 09:07:00 PM EDT [facility] Name Value Range Interpretation Code Description Data Liv rce(s) Supporting Document(s) Folate result 2.76-20.0 Normal (applies to non-numeric re sults) [facility] Test Performed By: [facility] [address] [place] [address] Director: Yassine Wade MD ID Date Data Source [id number] 05/26/2020 03:36:00 PM T [facility] Value Range Interpretation Code Description Data Liv rce(s) Supporting Document(s) Vitamin D, Total 30.0-100.0 Normal (applies to non-numeric results) [facility] ID Date Data Source [id number] 05/26/2020 03:14:00 PM EDT [facility] Name Value Range Interpretation Code Description Data Liv rce(s) Supporting Document(s) White Blood Count 3.5-10.5 Normal (applies to non-numeri c results) [facility] Red Blood Count 3.90-5.00 Normal (applies to non-numeric results) [facility] Hemoglobin 12.0-15.5 Below low normal [facility] Hematocrit 34.9-44.5 Normal (applies to non-numeric resul ts) [facility] Mean Corpuscular Volume 81.2-95.1 Normal (applies to non- numeric results) [facility] Mean Corpuscular Hgb 25.6-32.2 Normal (applies to non-num aleksandar results) [facility] Mean Corpuscular Hgb Conc 32.0-36.0 Below low normal [facility] Red Cell Distribution Width 11.9-15.5 Above high normal [facility] Platelet Count 137 x10 3/uL 150-450 Below low normal [facility] Mean Platelet Volume 9.4-12.4 Normal (applies to non-num aleksandar results) [facility] Neutrophils% (Auto) 31.0-71.0 Above high normal [facility] Lymphocytes% (Auto) 20.0-55.0 Below low normal [facility] Monocytes% (Auto) 4.0-12.0 Normal (applies to non-numeri c results) [facility] Eosinophils% (Auto) 1.0-8.0 Normal (applies to non-nume veronica results) [facility] Basophils% (Auto) 0.0-2.0 Normal (applies to non-numeri c results) [facility] Immature Granulocytes% (Auto) 0.0-2.0 Normal (nirmal lies to non-numeric results) [facility] Neutrophils# (Auto) 1.50-6.20 Normal (applies to non-nume veronica results) [facility] Lymphocytes# (Auto) 1.20-4.00 Below low normal [facility] Monocytes# (Auto) 0.00-0.90 Normal (applies to non-numeri c results) [facility] Eosinophils# (Auto) 0.00-0.50 Normal (applies to non-nume veronica results) [facility] Basophils# (Auto) 0.00-0.20 Normal (applies to non-numeri c results) [facility] Immature Granulocytes# (Auto) 0.00-7.00 No rmal (applies to non-numeric results) [facility] Slide Reviewed By Normal (applies to non-numeri c results) [facility] Slide has been reviewed and findings con firmed by a technologist/survey cad technician. ID Date Data Source [id number] 05/26/2020 03:09:00 PM EDT [facility] Name Value Range Interpretation Code Description Data Liv rce(s) Supporting Document(s) Sodium 144 mmol/L 136-145 Normal (applies to non-numeric resul ts) [facility] Potassium 3.5-5.1 Normal (applies to non-numeric resul ts) [facility] Chloride 103 mmol/L 98-107 Normal (applies to non-numeric resul ts) [facility] Carbon Dioxide CO2 21-32 Normal (applies to non-numer ic results) [facility] Anion Gap 5.0-16.0 Normal (applies to non-numeric resul ts) [facility] BUN 41 mg/dL 7-18 Above high normal [facility] Creatinine,Serum 0.7-1.2 Above high normal [facility] GFR 7 mL/min >60 Below low normal [facility] Glucose Level 169 mg/dL 60-99 Above high normal [facility] [...] 8.5-10.1 Normal (applies to non-numeric resul ts) [facility] Bilirubin,Total 0.1-1.9 Normal (applies to non-numeric results) [facility] SGOT(AST) 12 U/L 15-37 Below low normal [facility] Note the following drug interference: Sulfasalazine Sulfapyridine Can see falsely depressed Can see falsely elevated result with up to 10% results with up to 10% decrease in measurement increase in measurement Recommend patients be collected for this test prior to administration of either drug. SGPT(ALT) 19 U/L 12-78 Normal (applies to non-numeric resul ts) [facility] Note the following drug interference: Sulfasalazine Sulfapyridine Can see falsely depressed Can see falsely elevated result with up to 29% results with up to 10% decrease in measurement increase in measurement Recommend patients be collected for this test prior to administration of either drug. Alkaline Phosphatase 64 U/L 38-126 Normal (applies to non-num aleksandar results) [facility] can increase Alkaline Phosp le vels up to 2 times the normal adult value. Normal values for children and adolescents are 2 to 3 times the normal adult value. Total Protein 6.0-8.2 Normal (applies to non-numeric re sults) [facility] Albumin Level 3.4-5.0 Normal (applies to non-numeric re sults) [facility] ID Date Data Source [id number] 05/26/2020 03:09:00 PM EDT [facility] Name Value Range Interpretation Code Description Data Liv rce(s) Supporting Document(s) Triglycerides 188 mg/dL <150 Above high normal [facility] Cholesterol 161 mg/dL 100-200 Normal (applies to non-numeric resu lts) [facility] LDL Cholesterol Calculated 66 0-130 Normal (applies to n on-numeric results) [facility] HDL Cholesterol 57 mg/dL 40-60 Normal (applies to non-numeric results) [facility] Cholesterol/HDL Ratio 3.6-6.[address] [facility] ID Date Data Source [id number] 05/26/2020 02:58:00 PM EDT [facility] Name Value Range Interpretation Code Description Data Liv rce(s) Supporting Document(s) Hemoglobin A1c Above high normal [facility] Reference Range Normal: < 5.7% Pr ediabetes: 5.7-6.4% Diabetes: > 6.5% Estimated Avg Glucose 151 mg/dL 126-240 Normal (applies to non-numeric results) [facility] ID Date Data Source [id number] 05/26/2020 05:35:00 PM EDT [facility] Name Value Range Interpretation Code Description Data Liv rce(s) Supporting Document(s) Iron FE Level 28 ug/dL 37-170 Below low normal [facility] Test Performed By: [facility] [address] [place] [address] Director: Yassine Wade MD Total Iron Binding Capacity 179 ug/dL 265-497 Below low normal [facility] Test Performed By: [facility] [address] [place] [address] Director: Yassine Wade MD %Iron Saturation 12.0-55.0 Normal (applies to non-numeric results) [facility] Test Performed By: [facility] [address] [place] [address] Director: Yassine Wade MD ID Date Data Source [id number] 05/26/2020 05:35:00 PM EDT [facility] Value Range Interpretation Code Description Data Liv rce(s) Supporting Document(s) CPK 82 U/L 26-192 Normal (applies to non-numeric resul ts) [facility] Test Performed By: [facility] [address] [place] [address] Director: Yassine Wade MD ID Date Data Source [id number] 05/26/2020 05:35:00 PM EDT [facility] Value Range Interpretation Code Description Data Liv rce(s) Supporting Document(s) Ferritin 1588 ng/mL 11.1-264.0 Above high normal [facility] Test Performed By: [facility] [address] [place] [address] Director: Yassine Wade MD ID Date Data Source [id number] 05/26/2020 05:35:00 PM EDT [facility] Value Range Interpretation Code Description Data Liv rce(s) Supporting Document(s) Folate 2.76-20.0 Normal (applies to non-numeric resul ts) [facility] Test Performed By: [facility] [address] [place] [address] Director: Yassine Wade MD ID Date Data Source [id number] 05/26/2020 05:35:00 PM EDT [facility] Value Range Interpretation Code Description Data Liv rce(s) Supporting Document(s) Vitamin B12 774 pg/mL 193-986 Normal (applies to non-numeric resu lts) [facility] Test Performed By: [facility] [address] [place] [address] Director: Yassine Wade MD ID Date Data Source [id number] 05/11/2020 04:46:00 PM EDT [facility] Name Value Range Interpretation Code Description Data Liv rce(s) Supporting Document(s) SARS coronavirus 2 RNA [Presence] in Res piratory specimen by ZANE with probe detection NEGATIVE [facility] This lab was ordered by [facility] a nd reported by [facility]. ID Date Data Source [id number] 04/27/2020 08:03:00 PM EST [facility] Name Value Range Interpretation Code Description Data Liv rce(s) Supporting Document(s) SARS-CoV-2 (COVID 19) NEGATIVE - SARS-CoV-2 (COVID19) [facility] This lab was ordered by [facility] a nd reported by [facility]. ID Date Data Source [id number] 04/22/2020 02:13:00 PM EST [facility] Name Value Range Interpretation Code Description Data Liv rce(s) Supporting Document(s) SARS coronavirus 2 RNA [Presence] in Res piratory specimen by ZANE with probe detection NEGATIVE [facility] This lab was ordered by [facility] a nd reported by [facility]. ID Date Data Source [id number] 04/19/2020 01:35:00 PM EST [facility] Name Value Range Interpretation Code Description Data Liv rce(s) Supporting Document(s) SARS-CoV-2 (COVID 19) NEGATIVE - SARS-CoV-2 (COVID19) [facility] This lab was ordered by [facility] a nd reported by [facility]. ID Date Data Source [id number] 03/30/2020 07:56:00 PM EST [facility] Name Value Range Interpretation Code Description Data Liv rce(s) Supporting Document(s) SARS coronavirus 2 RNA [Presence] in Res piratory specimen by ZANE with probe detection NEGATIVE [facility] This lab was ordered by [facility] a nd reported by [facility]. ID Date Data Source [id number] 03/22/2020 04:40:00 PM EST [facility] Name Value Range Interpretation Code Description Data Liv rce(s) Supporting Document(s) Respiratory specimen severe acute respir atory syndrome coronavirus 2 (SARS-CoV-2) RNA Not Detected [facility] and reported by . ID Date Data Source [id number] 03/22/2020 05:14:00 PM EST [facility] Name Value Range Interpretation Code Description Data Liv rce(s) Supporting Document(s) White Blood Count 3.5-10.5 Normal (applies to non-numeri c results) [facility] Red Blood Count 3.90-5.00 Normal (applies to non-numeric results) [facility] Hemoglobin 12.0-15.5 Below low normal [facility] ospital Hematocrit 34.9-44.5 Below low normal [facility] Mean Corpuscular Volume 81.2-95.1 Normal (applies to non- numeric results) [facility] Mean Corpuscular Hgb 25.6-32.2 Normal (applies to non-num aleksandar results) [facility] Mean Corpuscular Hgb Conc 32.0-36.0 Below low normal [facility] Red Cell Distribution Width 11.9-15.5 Above high normal [facility] Platelet Count 254 x10 3/uL 150-450 Normal (applies to non-numeric results) [facility] Mean Platelet Volume 9.4-12.4 Normal (applies to non-num aleksandar results) [facility] Neutrophils% (Auto) 31.0-71.0 Above high normal [facility] Lymphocytes% (Auto) 20.0-55.0 Below low normal [facility] Monocytes% (Auto) 4.0-12.0 Normal (applies to non-numeri c results) [facility] Eosinophils% (Auto) 1.0-8.0 Normal (applies to non-nume veronica results) [facility] Basophils% (Auto) 0.0-2.0 Normal (applies to non-numeri c results) [facility] Immature Granulocytes% (Auto) 0.0-2.0 Normal (nirmal lies to non-numeric results) [facility] Neutrophils# (Auto) 1.50-6.20 Normal (applies to non-nume veronica results) [facility] Lymphocytes# (Auto) 1.20-4.00 Below low normal [facility] Monocytes# (Auto) 0.00-0.90 Normal (applies to non-numeri c results) [facility] Eosinophils# (Auto) 0.00-0.50 Normal (applies to non-nume veronica results) [facility] Basophils# (Auto) 0.00-0.20 Normal (applies to non-numeri c results) [facility] Immature Granulocytes# (Auto) 0.00-7.00 No rmal (applies to non-numeric results) [facility] Slide Reviewed By Normal (applies to non-numeri c results) [facility] Slide has been reviewed and findings con firmed by a technologist/survey cad technician. ID Date Data Source [id number] 03/22/2020 05:08:00 PM [facility] Name Value Range Interpretation Code Description Data Liv rce(s) Supporting Document(s) B-Type Natriuretic Peptide BNP <125 Above high normal [facility] Results of this test should always be us ed in conjunction with the patients medical history, clinical presentation, and other findings. ID Date Data Source [id number] 03/22/2020 04:56:00 PM [facility] Name Value Range Interpretation Code Description Data Liv rce(s) Supporting Document(s) PT 9.2-11.7 Normal (applies to non-numeric results) [facility] INR Normal (applies to non-numeric results) [facility] The use of INR is restricted to patients on stable oral anticoagulant. Therapeutic Range: 2.0 - 3.0 High Risk Range: 2.5 - 3.5 ID Date Data Source [id number] 03/22/2020 04:56:00 PM [facility] Name Value Range Interpretation Code Description Data Liv rce(s) Supporting Document(s) PTT 23.8-37.9 Below low normal [facility] spital ID Date Data Source [id number] 03/22/2020 04:56:00 PM [facility] Name Value Range Interpretation Code Description Data Liv rce(s) Supporting Document(s) Troponin I 0.000-0.056 Normal (applies to non-numeric resu lts) [facility] ID Date Data Source [id number] 03/22/2020 04:56:00 PM EST [facility] Name Value Range Interpretation Code Description Data Liv rce(s) Supporting Document(s) Sodium 140 mmol/L 136-145 Normal (applies to non-numeric resul ts) [facility] Potassium 3.5-5.1 Normal (applies to non-numeric resul ts) [facility] Chloride 100 mmol/L 98-107 Normal (applies to non-numeric resul ts) [facility] Carbon Dioxide CO2 21-32 Above high normal [facility] Anion Gap 5.0-16.0 Normal (applies to non-numeric resul ts) [facility] BUN 35 mg/dL 7-18 Above high normal [facility] ospital Creatinine,Serum 0.7-1.2 Above high normal [facility] GFR 6 mL/min >60 Below low normal [facility] spital Glucose Level 135 mg/dL 60-99 [...] 8.5-10.1 Normal (applies to non-numeric resul ts) [facility] Bilirubin,Total 0.1-1.9 Normal (applies to non-numeric results) [facility] SGOT(AST) 15 U/L 15-37 Normal (applies to non-numeric resul ts) [facility] Note the following drug interference: Sulfasalazine Sulfapyridine Can see falsely depressed Can see falsely elevated result with up to 10% results with up to 10% decrease in measurement increase in measurement Recommend patients be collected for this test prior to administration of either drug. SGPT(ALT) 26 U/L 12-78 Normal (applies to non-numeric resul ts) [facility] Note the following drug interference: Sulfasalazine Sulfapyridine Can see falsely depressed Can see falsely elevated result with up to 29% results with up to 10% decrease in measurement increase in measurement Recommend patients be collected for this test prior to administration of either drug. Alkaline Phosphatase 85 U/L 38-126 Normal (applies to non-num aleksandar results) [facility] can increase Alkaline Phosp le vels up to 2 times the normal adult value. Normal values for children and adolescents are 2 to 3 times the normal adult value. Total Protein 6.0-8.2 Normal (applies to non-numeric re sults) [facility] Albumin Level 3.4-5.0 Normal (applies to non-numeric re sults) [facility] ID Date Data Source [id number] 03/22/2020 04:56:00 PM [facility] Name Value Range Interpretation Code Description Data Liv rce(s) Supporting Document(s) Amylase 99 U/L 25-115 Normal (applies to non-numeric resul ts) [facility] ID Date Data Source [id number] 03/22/2020 04:56:00 PM [facility] Name Value Range Interpretation Code Description Data Liv rce(s) Supporting Document(s) Lipase 298 U/L 73-393 Normal (applies to non-numeric resul ts) [facility] ID Date Data Source [id number] 03/22/2020 04:31:00 PM [facility] Imaging Services Department Imaging Report [address] [address] %(RAD)RES..mtdd.print.filter("line") Name: RONNIE ACOSTA : 1945 Age/Sex: 75F Ordering Provider: TAURUS Meade Med Rec #: [id number] Reg Status: DEP ER Room #: Date of Service: 03/22/20 Report Number: [id number] cc:Moe Alvarez Reason, DO Send Report To: [id number] CT/CT Abdomen & Pelvis No Contras Reason [...] Date/Time: 03/22/20 1556 Transcribed Date/Time: 03/22/20 1631 Metal Template Maker: WAYNE Name Value Range Interpretation Code Description Data Liv rce(s) Supporting Document(s) ID Date Data Source [id number] 03/22/2020 04:37:00 PM [facility] Imaging Services Department Imaging Report [address] [place], [place] [address] %(RAD)RES..mtdd.print.filter("line") Name: RONNIE ACOSTA : 1945 Age/Sex: 75F Ordering Provider: TAURUS Meade Med Rec #: [id number] Reg Status: [facility] Room #: Date of Service: 03/22/20 Report Number: [id number] cc:Moe Alvarez Reason, DO; TAURUS Meade Send Report To: [id number] XRP/XR Chest Xray Portable Reason for exam: [...] Date/Time: 03/22/20 1620 Transcribed Date/Time: 03/22/20 1637 Metal Template Maker: WAYNE Name Value Range Interpretation Code Description Data Liv rce(s) Supporting Document(s) ID Date Data Source [id number] 03/22/2020 04:39:00 PM [facility] First test? [facility]? NOSymptomatic per CDC? YESHospitalized? NOICU? NOResident in congregated care? ex group home, [facility] NO? NO Name Value Range Interpretation Code Description Data Liv rce(s) Supporting Document(s) RP Internal Control Passed Normal (applies to non-nume veronica results) [facility] Adenovirus None Detect Normal (applies to non-numeric resu lts) [facility] Coronavirus 229E None Detect Normal (applies to non-numeri c results) [facility] Coronavirus HKU1 None Detect Normal (applies to non-numeri c results) [facility] Coronavirus NL63 None Detect Normal (applies to non-numeri c results) [facility] Coronavirus OC43 None Detect Normal (applies to non-numeri c results) [facility] SARS-CoV-2 Not Detect Normal (applies to non-numeric resul ts) [facility] Negative results do not preclude SARS-Co V-2 infection and should not be used as the sole basis for treatment or other patient management decisions. Negative results must be combined with clinical observations, patient history, and epidemiological information. Testing was performed using the [employer] real-time nested multiplexed PCR Respiratory Panel 2.1 [...] Detect Normal (applies to non-n umeric results) [facility] Rhino/Enterovirus None Detect Normal (applies to non-numer ic results) [facility] Influenza A None Detect Normal (applies to non-numeric res ults) [facility] Influenza B None Detect Normal (applies to non-numeric res ults) [facility] Parainfluenza Virus 1 None Detect Normal (applies to non-n umeric results) [facility] Parainfluenza Virus 2 None Detect Normal (applies to non-n umeric results) [facility] Parainfluenza Virus 3 None Detect Normal (applies to non-n umeric results) [facility] Parainfluenza Virus 4 None Detect Normal (applies to non-n umeric results) [facility] Respiratory Syncytial Virus None Detect Norm al (applies to non-numeric results) [facility] Bordetella Parapertussis None Detect Normal (applies to non-numeric results) [facility] Bordetella Pertussis None Detect Normal (applies to non-nu meric results) [facility] Chlamydia Pneumoniae None Detect Normal (applies to non-nu meric results) [facility] Mycoplasma Pneumoniae None Detect Normal (applies to non-n umeric results) [facility] Methodology: Multiplexed PCR Refer ence Range: None detected ID Date Data Source [id number] 03/02/2020 05:07:00 PM [facility] Name Value Range Interpretation Code Description Data Liv rce(s) Supporting Document(s) SARS coronavirus 2 RNA [Presence] in Res piratory specimen by ZANE with probe detection [facility] This lab was ordered by [facility] a nd reported by [facility]. ID Date Data Source [id number] 01/28/2020 12:17:00 PM EST [facility] ([facility] ) Name Value Range Interpretation Code Description Data Liv rce(s) Supporting Document(s) Glucose [Mass/volume] in Capillary blood by Glucometer 132 mg/dL 83-110 Above high normal [facility] ([facility]) ID Date Data Source [id number] 01/28/2020 08:14:00 AM EST [facility] ([facility]) Name Value Range Interpretation Code Description Data Liv rce(s) Supporting Document(s) Glucose [Mass/volume] in Capillary blood by Glucometer 155 mg/dL 83-110 Above high normal [facility] ([facility]) ID Date Data Source [id number] 01/21/2020 01:04:00 PM EST [facility] ([facility]) Name Value Range Interpretation Code Description Data Liv rce(s) Supporting Document(s) Glucose [Mass/volume] in Capillary blood by Glucometer 172 mg/dL 83-110 Above high normal [facility] ([facility]) ID Date Data Source [id number] 12/05/2019 12:03:00 PM EDT [facility] ([facility]) Name Value Range Interpretation Code Description Data Liv rce(s) Supporting Document(s) Hemoglobin A1c/Hemoglobin.total in Blood Laboratory test result [facility] ([facility]) Glucose [Mass/volume] in Serum or Plasma 382 [facility] ([facility]) ID Date Data Source [id number] 11/29/2019 06:27:00 AM EDT [facility] Imaging Services Department Imaging Report [address] [place] [id number] %(RAD)RES..mtdd.print.filter("line") Name: RONNIE ACOSTA : 1945 Age/Sex: 74F Ordering Provider: Moe Champion DO Med Rec #: [id number] Reg Status: DEP REF Room #: Date of Service: 11/28/19 Report Number: [id number] cc:Moe Champion DO Send Report To: [id number] US/US Dup Lower Ext Artery Bilat Reason [...] Higgins MD> 11/29/19 1051 Dictation Date/Time: 11/28/19 2546 Transcribed Date/Time: 11/29/19 0651 Metal Template Maker: VINCENZO Name Value Range Interpretation Code Description Data Liv rce(s) Supporting Document(s) Procedure Social History Code Duration Value Status Description Data Source(s ) Alcohol intake 11/03/2020 12:00:00 AM EDT Current non-d may of alcohol (finding) completed Current non-drinker of alcohol (finding) [facility] Smoking 10/27/2020 12:00:00 AM EDT Former Smoker completed Former Smoker eCW1 ([facility]) Smoking 08/18/2020 12:00:00 AM EDT Patient is a former smoker completed Patient is a former smoker KEIRA ([facility]) Alcohol intake 08/11/2020 12:00:00 AM EDT Current non-d may of alcohol (finding) completed Current non-drinker of alcohol (finding) [facility] Alcohol intake 03/17/2020 12:00:00 AM EST No completed [facility] Cigarette pack-years 03/17/2020 12:00:00 AM EST UNK completed [facility] Cigarettes smoked current (pack per day) - Reported 03/17/19 12:00:00 AM EST UNK completed [facility] Smoking 03/17/2020 12:00:00 AM EST Former smoker completed Former smoker [facility] Smoking 12/05/2019 12:00:00 AM EDT Patient is a former smoker completed Patient is a former smoker [facility] ([facility]) Vital Signs ID Date Data Source UNK Name Value Range Interpretation Code Description Data Source(s) Heart rate 81 /min 81 /min [facility] ([facility], ) Systolic blood pressure 166 mm[Hg] 166 mm[Hg] M EDENT ([facility], ) Diastolic blood pressure 81 mm[Hg] 81 mm[Hg] [facility] ([facility], ) Body temperature 98.4 [degF] 98.4 [degF] [facility] ([facility], ) Body height 65 [in_i] 65 [in_i] [facility] ([facility], ) 5'5" [place] body weight 125 [lb_av] 125 [lb_av] MEDEN T ([facility], ) Systolic blood pressure 158 mm[Hg] 158 mm[Hg] [facility] Diastolic blood pressure 58 mm[Hg] 58 mm[Hg] [facility] Heart rate 64 /min 64 /min [facility] Respiratory rate 8 /min 8 /min [facility] Body height 165.1 cm 165.1 cm [facility] Body weight 64.864 kg 64.864 kg [facility] Body mass index (BMI) [Ratio] 23.80 kg/m2 23.80 kg/m2 [facility] Oxygen saturation in Arterial blood by Pulse oximetry 94 % 94 % [facility] Body weight 144.8 [lb_av] 144.8 [lb_av] eCW1 ([facility]) Body weight 65.68 kg 65.68 kg W1 ([facility]) Body height 65 [in_i] 65 [in_i] eCW1 ([facility]) Body mass index (BMI) [Ratio] 24.09 kg/m2 24.09 kg/m2 [facility] ([facility]) Heart rate 83 /min 83 /min eCW1 ([facility]) Respiratory rate 17 /min 17 /min eCW1 ([facility]) Body temperature 96.3 [degF] 96.3 [degF] eCW1 ( [facility]) Systolic blood pressure 158 mm[Hg] 158 mm[Hg] e CW1 ([facility]) Diastolic blood pressure 70 mm[Hg] 70 mm[Hg] eCW1 ([facility]) [place] body weight 125 [lb_av] 125 [lb_av] MEDEN T ([facility]) Body weight 144.00 [lb_av] 144.00 [lb_av] MED[facility] T ([facility]) Body mass index (BMI) [Ratio] 24.0 kg/m2 24.0 k g/m2 [facility] ([facility]) Systolic blood pressure 130 mm[Hg] 130 mm[Hg] M EDENT ([facility]) Diastolic blood pressure 68 mm[Hg] 68 mm[Hg] [facility] ([facility]) Body height 65 [in_i] 65 [in_i] [facility] ([facility]) 5'5" Body weight 65.318 kg 65.318 kg [facility] ([facility]) Body surface area Derived from formula 1.72 m2 1.72 m2 [facility] ([facility]) Body height 65 [in_i] 65 [in_i] [facility] ([facility]) 5'5" Body weight 144.00 [lb_av] 144.00 [lb_av] MEDEN T ([facility]) Body mass index (BMI) [Ratio] 24.0 kg/m2 24.0 k g/m2 [facility] ([facility]) [place] body weight 125 [lb_av] 125 [lb_av] MED[facility] T ([facility]) Body weight 65.318 kg 65.318 kg [facility] ([facility]) Body surface area Derived from formula 1.72 m2 1.72 m2 [facility] ([facility]) Systolic blood pressure 168 mm[Hg] 168 mm[Hg] [facility] Diastolic blood pressure 88 mm[Hg] 88 mm[Hg] [facility] Heart rate 85 /min 85 /min [facility] Body height 165.1 cm 165.1 cm [facility] Body weight 64.411 kg 64.411 kg [facility] Body mass index (BMI) [Ratio] 23.63 kg/m2 23.63 kg/m2 [facility] Systolic blood pressure 120 mm[Hg] 120 mm[Hg] M EDENT ([facility], ) Body height 65 [in_i] 65 [in_i] [facility] ([facility], ) 5'5" Body surface area Derived from formula 1.69 m2 1.69 m2 [facility] ([facility], ) Diastolic blood pressure 60 mm[Hg] 60 mm[Hg] [facility] Body weight 137.25 [lb_av] 137.25 [lb_av] MEDEN T ([facility], ) Body mass index (BMI) [Ratio] 22.8 kg/m2 22.8 k g/m2 [facility] ([facility], ) [place] body weight 125 [lb_av] 125 [lb_av] MEDEN T ([facility], ) Body weight 62.257 kg 62.257 kg [facility] ([facility], ) Systolic blood pressure 140 mm[Hg] 140 mm[Hg] [facility] Diastolic blood pressure 70 mm[Hg] 70 mm[Hg] [facility] Heart rate 70 /min 70 /min [facility] Body height 165.1 cm 165.1 cm [facility] Body weight 66.225 kg 66.225 kg [facility] Body mass index (BMI) [Ratio] 24.30 kg/m2 24.30 kg/m2 [facility] Oxygen saturation in Arterial blood by Pulse oximetry 93 % 93 % [facility] [place] body weight 125 [lb_av] 125 [lb_av] MEDEN T ([facility], ) Diastolic blood pressure 60 mm[Hg] 60 mm[Hg] [facility] Body height 65 [in_i] 65 [in_i] [facility] ([facility], ) 5'5" Body weight 151.00 [lb_av] 151.00 [lb_av] MEDEN T ([facility]) Body mass index (BMI) [Ratio] 25.1 kg/m2 25.1 k g/m2 [facility] ([facility]) Body weight 68.494 kg 68.494 kg [facility] ([facility]) Body surface area Derived from formula 1.76 m2 1.76 m2 [facility] ([facility]) Systolic blood pressure 120 mm[Hg] 120 mm[Hg] M EDENT ([facility]) Systolic blood pressure 138 mm[Hg] 138 mm[Hg] [facility]) Diastolic blood pressure 68 mm[Hg] 68 mm[Hg] [facility] ([facility]) Body height 65 [in_i] 65 [in_i] [facility] ([facility]) 5'5" Body weight 150.00 [lb_av] 150.00 [lb_av] MED[facility] T ([facility]) Body mass index (BMI) [Ratio] 25.0 kg/m2 25.0 k g/m2 [facility] ([facility]) [place] body weight 125 [lb_av] 125 [lb_av] MED[facility] T ([facility]) Body weight 68.040 kg 68.040 kg [facility] ([facility]) Body surface area Derived from formula 1.75 m2 1.75 m2 [facility] ([facility]) Body weight 157.38 [lb_av] 157.38 [lb_av] MEDEN T ([facility]) Body mass index (BMI) [Ratio] 26.2 kg/m2 26.2 k g/m2 [facility] ([facility]) Oxygen saturation in Arterial blood by Pulse oximetry 9 % 9 % [facility] ([facility]) Body height 65 [in_i] 65 [in_i] [facility] ([facility]) 5'5" Systolic blood pressure 126 mm[Hg] 126 mm[Hg] M EDENT ([facility]) Diastolic blood pressure 72 mm[Hg] 72 mm[Hg] [facility] ([facility]) Heart rate 74 /min 74 /min [facility] Systolic blood pressure 139 mm[Hg] 139 mm[Hg] M [facility]ENT ([facility]) Diastolic blood pressure 74 mm[Hg] 74 mm[Hg] [facility] ([facility]) Heart rate 76 /min 76 /min [facility] ([facility]) Body height 65 [in_i] 65 [in_i] [facility] 5'5" Body weight 148.00 [lb_av] 148.00 [lb_av] MED[facility] T ([facility]) Body mass index (BMI) [Ratio] 24.6 kg/m2 24.6 k g/m2 [facility] ([facility]) [place] body weight 125 [lb_av] 125 [lb_av] [facility] Body weight 67.133 kg 67.133 kg [facility] ([facility]) ID Date Data Source [id number] 06/04/2020 02:39:00 PM EDT [facility] Name Value Range Interpretation Code Description Data Source(s) Weight Measurement Method 8 8 [facility] Weight 4938.354 4938.354 [facility] Temperature Source 1 1 [facility] Temperature 98.2 98.2 [facility] spital Respiratory Effort 14 14 [facility] Respiratory Rate 16 16 [facility] Pulse Assessment Method 4 4 G [facility] 65 [facility] Blood Pressure 168/75 168/75 [facility] ID Date Data Source [id number] 03/22/2020 05:14:00 PM EST [facility] spital Name Value Range Interpretation Code Description Data Source(s) Weight Measurement Method 8 8 [facility] Weight 2320 2320 [facility] pital Temperature Source 7 7 [facility] Temperature 97.5 97.5 [facility] spital Respiratory Effort 1 1 [facility] Respiratory Rate 17 17 [facility] Pulse Assessment Method 4 4 G [facility] Pulse Rate 72 72 [facility] pital Height 65 65 [facility] pital Blood Pressure 174/96 174/96 [facility] Weight Measurement Method 8 8 [facility] Weight 2320 2320 [facility] pital Temperature Source 7 7 [facility] Temperature 97.5 97.5 [facility] spital Respiratory Effort 1 1 [facility] Respiratory Rate 17 17 [facility] Pulse Assessment Method 4 4 G [facility] Pulse Rate 80 80 [facility] pital Height 65 65 [facility] Blood Pressure 174/96 174/96 [facility] Weight Measurement Method 8 8 [facility] Weight 2320 2320 [facility] pital Temperature Source 7 7 [facility] Temperature 97.5 97.5 [facility] spital Respiratory Effort 1 1 [facility] Respiratory Rate 17 17 [facility] Pulse Assessment Method 4 4 G [facility] Pulse Rate 80 80 [facility] pital Height 65 65 [facility] Blood Pressure 174/96 174/96 [facility] Patient Treatment Plan of Care Planned Activity Planned Date Details Description Data Source (s) Methoxy PEG-Epoetin Beta (MIRCERA IJ) 07/31/2020 12:00:00 AM EDT [facility] VITAMIN D, CHOLECALCIFEROL, PO 07/20/2020 12:00:00 AM EDT [facility] Amlodipine 5 MG Oral Tablet 03/10/2020 12:00:00 AM EST [facility] sodium chloride 0.9 % SOLN 500 mL with h eparin (porcine) 1000 UNIT/ML SOLN 1,000 Units 10/16/2019 12:00:00 AM EDT [facility] Calcium Carbonate-Vit D-Min (CALCIUM 600+D3 PLUS [employer] ALS) 600-800 MG-UNIT TABS 09/18/2019 12:00:00 AM EDT [facility] Labetalol hydrochloride 100 MG Oral Tablet 06/29/2019 12:00:00 AM E DT [facility] gabapentin 100 MG Oral Capsule 05/28/2019 12:00:00 AM EDT [facility] sodium chloride 0.9 % SOLN 50 mL with insulin regular 100 UNIT/ML SOLN [address] [facility] sennosides, [facility] 8.6 MG Oral Capsule [facility] tramadol hydrochloride 50 MG Oral Tablet [facility] MENTHOL-METHYL SALICYLATE EX [facility] Aspirin 81 MG Oral Tablet [facility] POLYETHYLENE GLYCOL 3350 142 MG/ML Oral Solution [facility] Tetrahydrozoline hydrochloride 0.5 MG/ML Ophthalmic Solution [facility] 1 ML heparin sodium, porcine 1000 UNT/ML Injection [facility] Naphazoline-Pheniramine (VISINE-A OP) [facility]
--- NOTE | 2020-12-10 09:19 | REP ---
INDICATION: Abdominal Pain COMPARISON: 10/07/2020 TECHNIQUE: PA and lateral. FINDINGS: Mediastinum and cardiac silhouette are stable again demonstrating prior sternotomy, CABG and vascular stent along with cardiomegaly. Perihilar and lower lobe opacities (left greater than right) with associated pleural effusions are noted along with increased vascular markings. No pneumothorax. IMPRESSION: Differential diagnosis includes multifocal pneumonia and/or CHF. <Electronically signed by Joni Dumont > 12/10/20 [id number]
--- OUTSIDE RECORDS SUMMARY | 2020-12-10 11:26 | CCD ---
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 PANEL</td><td>Routine</td><td>05/12/2020</td><td></td><td> </td> 05/12/2020 12:00:00 AM EDT [facility] TROPONIN QUANTITATIVE <td>TROPONIN I</td><td>Routine</td><td>05/11/2020</td><td></td><td> </td> 05/11/2020 12:00:00 AM EDT [facility] THYROID STIMULATING HORMONE TSH <td>TSH</td><td>Routine</td><td>05/11/2020</td><td></td><td> </td> 05/11/2020 12:00:00 AM EDT [facility] BASIC METABOLIC PANEL CALCIUM TOTAL <td>BASIC METABOLI C PANEL</td><td>Routine</td><td>05/11/2020</td><td></td><td> </td> 05/11/2020 12:00:00 AM EDT [facility] ECG ROUTINE ECG W/LEAST 12 LDS W/I&R <td>POCT AMB EKG</td><td>Routine</td><td>03/17/2020 12:45 PM EST</td><td> Ischemic cardiomyopathy EF 35%</td><td> </td> 03/17/2020 05:45:00 PM EST Ischemic cardiomyopathy EF 35% [facility] Ischemic cardiomyopathy EF 35% Revascularization,Endovascular,Transluminal Angioplasty 01/28/2020 12:00:00 AM EST [facility] ([facility] ) REVSC OPN/PRQ TIB/RICH W/ANGIOPLASTY UNI 01/28/2020 12 :00:00 AM EST [facility] ([facility] ) REVSC OPN/PRQ TIB/RICH W/ANGIOPLASTY UNI EA VSL 2019 12:00:00 AM EST [facility] ([facility], ) Moderate Sedation Services; Same Phys Intl 15 Mins; PT >= 5 Years 01/28/2020 12:00:00 AM EST [facility] ([facility] ) Dialysis Circuit W/ Transluminal Balloon Angioplasty, Periph eral 01/21/2020 12:00:00 AM EST [facility] ([facility] ) Translum Balloon Angio Central Dial Segment Through Dialys C ircui 01/21/2020 12:00:00 AM EST [facility] ([facility] ) Moderate Sedation Services; Same Phys Intl 15 Mins; PT >= 5 Years 01/21/2020 12:00:00 AM EST [facility] ([facility] ) Dialysis Circuit W/ Transluminal Balloon Angioplasty, Periph eral 10/18/2019 12:00:00 AM EDT [facility] ([facility] ) Translum Balloon Angio Central Dial Segment Through Dialys C ircui 10/18/2019 12:00:00 AM EDT [facility] ([facility] ) Moderate Sedation Services; Same Phys Intl 15 Mins; PT >= 5 Years 10/18/2019 12:00:00 AM EDT [facility] ([facility], ) Results ID Date Data Source [id number] 11/18/2020 05:31:00 PM EDT [facility] Department Imaging Report [address], [place] [address] Name: RONNIE ACOSTA : 1945 Age/Sex: 75F Ordering Provider: Moe Champion DO Med Rec #: [id number] Date of Service: 11/17/20 Report Number: [id number] cc: Moe Champion DO Send Report To: [id number] MAMMOSCR/Screening Digital Mammo CAD Reason for Exam: [...] MD>11/19/201211 Dictation Date/Time: 11/17/201751 Transcribed Date/Time: 11/18/201730 Aemt: [facility] Name Value Range Interpretation Code Description Data Liv rce(s) Supporting Document(s) ID Date Data Source [id number] 10/05/2020 04:32:00 PM EDT [facility] Name Value Range Interpretation Code Description Data Liv rce(s) Supporting Document(s) SARS-CoV-2 (COVID 19) NEGATIVE - SARS-CoV-2 (COVID19) [facility] This lab was ordered by [facility] a nd reported by [facility]. ID Date Data Source [id number] 06/05/2020 05:18:00 AM EDT [facility] Imaging Services Department Imaging Report [address], [place] [address] %(RAD)RES..mtdd.print.filter("line") Name: RONNIE ACOSTA : 1945 Age/Sex: 75F Ordering Provider: TAURUS Richardson Med Rec #: [id number] Reg Status: [facility] Room #: Date of Service: 06/04/20 Report Number: [id number] cc:Moe Alvarez Reason, DO Send Report To: [id number] XRP/XR Ribs Rt w PA Chest Reason [...] Date/Time: 06/04/20 1349 Transcribed Date/Time: 06/05/20 0518 Aemt: [facility] Name Value Range Interpretation Code Description Data Liv rce(s) Supporting Document(s) ID Date Data Source [id number] 05/26/2020 09:07:00 PM EDT [facility] Value Range Interpretation Code Description Data Liv rce(s) Supporting Document(s) FESAT Iron result 28 ug/dL 37-170 [facility] Test Performed By: [facility] [address] [place] [address] Director: Yassine Wade MD FESAT TIBC result 179 ug/dL 265-497 [facility] Test Performed By: [facility] [address] [place] [address] Director: Yassine Wade MD FESAT %Iron Saturation result 12.0-55.0 No rmal (applies to non-numeric results) [facility] Test Performed By: [facility] [address] [place] [address] Director: Yassine Wade MD ID Date Data Source [id number] 05/26/2020 09:07:00 PM [facility] Value Range Interpretation Code Description Data Liv rce(s) Supporting Document(s) Ferritin result 1588 ng/mL 11.1-264.0 [facility] Test Performed By: [facility] [address] [place] [address] Director: Yassine Wade MD ID Date Data Source [id number] 05/26/2020 09:07:00 PM [facility] Value Range Interpretation Code Description Data Liv rce(s) Supporting Document(s) CPK result 82 U/L 26-192 Normal (applies to non-numeric resul ts) [facility] Test Performed By: [facility] [address] [place] [address] Director: Yassine Wade MD ID Date Data Source [id number] 05/26/2020 09:07:00 PM T [facility] Name Value Range Interpretation Code Description Data Liv rce(s) Supporting Document(s) Vitamin B12 result 774 pg/mL 193-986 Normal (applies to non-numer ic results) [facility] Test Performed By: [facility] [address] [place] [address] Director: Yassine Wade MD ID Date Data Source [id number] 05/26/2020 09:07:00 PM EDT [facility] Name Value Range Interpretation Code Description Data Liv rce(s) Supporting Document(s) Folate result 2.76-20.0 Normal (applies to non-numeric re sults) [facility] Test Performed By: [facility] [address] [place] [address] Director: Yassine Wade MD ID Date Data Source [id number] 05/26/2020 03:36:00 PM T [facility] Value Range Interpretation Code Description Data Liv rce(s) Supporting Document(s) Vitamin D, Total 30.0-100.0 Normal (applies to non-numeric results) [facility] ID Date Data Source [id number] 05/26/2020 03:14:00 PM EDT [facility] Name Value Range Interpretation Code Description Data Liv rce(s) Supporting Document(s) White Blood Count 3.5-10.5 Normal (applies to non-numeri c results) [facility] Red Blood Count 3.90-5.00 Normal (applies to non-numeric results) [facility] Hemoglobin 12.0-15.5 Below low normal [facility] Hematocrit 34.9-44.5 Normal (applies to non-numeric resul ts) [facility] Mean Corpuscular Volume 81.2-95.1 Normal (applies to non- numeric results) [facility] Mean Corpuscular Hgb 25.6-32.2 Normal (applies to non-num aleksandar results) [facility] Mean Corpuscular Hgb Conc 32.0-36.0 Below low normal [facility] Red Cell Distribution Width 11.9-15.5 Above high normal [facility] Platelet Count 137 x10 3/uL 150-450 Below low normal [facility] Mean Platelet Volume 9.4-12.4 Normal (applies to non-num aleksandar results) [facility] Neutrophils% (Auto) 31.0-71.0 Above high normal [facility] Lymphocytes% (Auto) 20.0-55.0 Below low normal [facility] Monocytes% (Auto) 4.0-12.0 Normal (applies to non-numeri c results) [facility] Eosinophils% (Auto) 1.0-8.0 Normal (applies to non-nume veronica results) [facility] Basophils% (Auto) 0.0-2.0 Normal (applies to non-numeri c results) [facility] Immature Granulocytes% (Auto) 0.0-2.0 Normal (nirmal lies to non-numeric results) [facility] Neutrophils# (Auto) 1.50-6.20 Normal (applies to non-nume veronica results) [facility] Lymphocytes# (Auto) 1.20-4.00 Below low normal [facility] Monocytes# (Auto) 0.00-0.90 Normal (applies to non-numeri c results) [facility] Eosinophils# (Auto) 0.00-0.50 Normal (applies to non-nume veronica results) [facility] Basophils# (Auto) 0.00-0.20 Normal (applies to non-numeri c results) [facility] Immature Granulocytes# (Auto) 0.00-7.00 No rmal (applies to non-numeric results) [facility] Slide Reviewed By Normal (applies to non-numeri c results) [facility] Slide has been reviewed and findings con firmed by a technologist/electronic security technician. ID Date Data Source [id number] 05/26/2020 03:09:00 PM EDT [facility] Name Value Range Interpretation Code Description Data Liv rce(s) Supporting Document(s) Sodium 144 mmol/L 136-145 Normal (applies to non-numeric resul ts) [facility] Potassium 3.5-5.1 Normal (applies to non-numeric resul ts) [facility] Chloride 103 mmol/L 98-107 Normal (applies to non-numeric resul ts) [facility] Carbon Dioxide CO2 21-32 Normal (applies to non-numer ic results) [facility] Anion Gap 5.0-16.0 Normal (applies to non-numeric resul ts) [facility] BUN 41 mg/dL 7-18 Above high normal [facility] Creatinine,Serum 0.7-1.2 Above high normal [facility] GFR 7 mL/min >60 Below low normal [facility] Glucose Level 169 mg/dL 60-99 Above high normal [facility] Reference range is only applicable when patient is fasting Note the following drug interference: Sulfasalazine Sulfapyridine Can see falsely depressed Can see falsely elevated result with up to 17% results with up to 11% decrease in measurement increase in measurement Recommend patients be collected for this test prior to administration of either drug. Calcium 8.5-10.1 Normal (applies to non-numeric resul ts) [facility] Bilirubin,Total 0.1-1.9 Normal (applies to non-numeric results) [facility] SGOT(AST) 12 U/L 15-37 Below low normal [facility] Note the following drug interference: Sulfasalazine Sulfapyridine Can see falsely depressed Can see falsely elevated result with up to 10% results with up to 10% decrease in measurement increase in measurement Recommend patients be collected for this test prior to administration of either drug. SGPT(ALT) 19 U/L 12-78 Normal (applies to non-numeric resul ts) [facility] Note the following drug interference: Sulfasalazine Sulfapyridine Can see falsely depressed Can see falsely elevated result with up to 29% results with up to 10% decrease in measurement increase in measurement Recommend patients be collected for this test prior to administration of either drug. Alkaline Phosphatase 64 U/L 38-126 Normal (applies to non-num aleksandar results) [facility] can increase Alkaline Phosp le vels up to 2 times the normal adult value. Normal values for children and adolescents are 2 to 3 times the normal adult value. Total Protein 6.0-8.2 Normal (applies to non-numeric re sults) [facility] Albumin Level 3.4-5.0 Normal (applies to non-numeric re sults) [facility] ID Date Data Source [id number] 05/26/2020 03:09:00 PM EDT [facility] Name Value Range Interpretation Code Description Data Liv rce(s) Supporting Document(s) Triglycerides 188 mg/dL <150 Above high normal [facility] Cholesterol 161 mg/dL 100-200 Normal (applies to non-numeric resu lts) [facility] LDL Cholesterol Calculated 66 0-130 Normal (applies to n on-numeric results) [facility] HDL Cholesterol 57 mg/dL 40-60 Normal (applies to non-numeric results) [facility] Cholesterol/HDL Ratio 3.6-6.7 Below low normal [facility] ID Date Data Source [id number] 05/26/2020 02:58:00 PM EDT [facility] Name Value Range Interpretation Code Description Data Liv rce(s) Supporting Document(s) Hemoglobin A1c Above high normal [facility] Reference Range Normal: < 5.7% Pr ediabetes: 5.7-6.4% Diabetes: > 6.5% Estimated Avg Glucose 151 mg/dL 126-240 Normal (applies to non-numeric results) [facility] ID Date Data Source [id number] 05/26/2020 05:35:00 PM EDT [facility] Name Value Range Interpretation Code Description Data Liv rce(s) Supporting Document(s) Iron FE Level 28 ug/dL 37-[address] [facility] Test Performed By: [facility] [address] [place] [address] Director: Yassine Wade MD Total Iron Binding Capacity 179 ug/dL 265-497 Below low normal [facility] Test Performed By: [facility] [address] [place] [address] Director: Yassine Wade MD %Iron Saturation 12.0-55.0 Normal (applies to non-numeric results) [facility] Test Performed By: [facility] [address] [place] [address] Director: Yassine Wade MD ID Date Data Source [id number] 05/26/2020 05:35:00 PM EDT [facility] Value Range Interpretation Code Description Data Liv rce(s) Supporting Document(s) CPK 82 U/L 26-192 Normal (applies to non-numeric resul ts) [facility] Test Performed By: [facility] [address] [place] [address] Director: Yassine Wade MD ID Date Data Source [id number] 05/26/2020 05:35:00 PM EDT [facility] Value Range Interpretation Code Description Data Liv rce(s) Supporting Document(s) Ferritin 1588 ng/mL 11.1-264.0 Above high normal [facility] Test Performed By: [facility] [address] [place] [address] Director: Yassine Wade MD ID Date Data Source [id number] 05/26/2020 05:35:00 PM EDT [facility] Value Range Interpretation Code Description Data Liv rce(s) Supporting Document(s) Folate 2.76-20.0 Normal (applies to non-numeric resul ts) [facility] Test Performed By: [facility] [address] [place] [address] Director: Yassine Wade MD ID Date Data Source [id number] 05/26/2020 05:35:00 PM EDT [facility] Value Range Interpretation Code Description Data Liv rce(s) Supporting Document(s) Vitamin B12 774 pg/mL 193-986 Normal (applies to non-numeric resu lts) [facility] Test Performed By: [facility] [address] [place] [address] Director: Yassine Wade MD ID Date Data Source [id number] 05/11/2020 04:46:00 PM EDT [facility] Name Value Range Interpretation Code Description Data Liv rce(s) Supporting Document(s) SARS coronavirus 2 RNA [Presence] in Res piratory specimen by ZANE with probe detection NEGATIVE [facility] This lab was ordered by [facility] a nd reported by [facility]. ID Date Data Source [id number] 04/27/2020 08:03:00 PM EST [facility] Name Value Range Interpretation Code Description Data Liv rce(s) Supporting Document(s) SARS-CoV-2 (COVID 19) NEGATIVE - SARS-CoV-2 (COVID19) [facility] This lab was ordered by [facility] a nd reported by [facility]. ID Date Data Source [id number] 04/22/2020 02:13:00 PM EST [facility] Name Value Range Interpretation Code Description Data Liv rce(s) Supporting Document(s) SARS coronavirus 2 RNA [Presence] in Res piratory specimen by ZANE with probe detection NEGATIVE [facility] This lab was ordered by [facility] a nd reported by [facility]. ID Date Data Source [id number] 04/19/2020 01:35:00 PM EST [facility] Name Value Range Interpretation Code Description Data Liv rce(s) Supporting Document(s) SARS-CoV-2 (COVID 19) NEGATIVE - SARS-CoV-2 (COVID19) [facility] This lab was ordered by [facility] a nd reported by [facility]. ID Date Data Source [id number] 03/30/2020 07:56:00 PM EST [facility] Name Value Range Interpretation Code Description Data Liv rce(s) Supporting Document(s) SARS coronavirus 2 RNA [Presence] in Res piratory specimen by ZANE with probe detection NEGATIVE [facility] This lab was ordered by [facility] a nd reported by [facility]. ID Date Data Source [id number] 03/22/2020 04:40:00 PM EST [facility] Name Value Range Interpretation Code Description Data Liv rce(s) Supporting Document(s) Respiratory specimen severe acute respir atory syndrome coronavirus 2 (SARS-CoV-2) RNA Not Detected [facility] and reported by . ID Date Data Source [id number] 03/22/2020 05:14:00 PM EST [facility] Name Value Range Interpretation Code Description Data Liv rce(s) Supporting Document(s) White Blood Count 3.5-10.5 Normal (applies to non-numeri c results) [facility] Red Blood Count 3.90-5.00 Normal (applies to non-numeric results) [facility] Hemoglobin 12.0-15.5 Below low normal [facility] Hematocrit 34.9-44.5 Below low normal [facility] Mean Corpuscular Volume 81.2-95.1 Normal (applies to non- numeric results) [facility] Mean Corpuscular Hgb 25.6-32.2 Normal (applies to non-num aleksandar results) [facility] Mean Corpuscular Hgb Conc 32.0-36.0 Below low normal [facility] Red Cell Distribution Width 11.9-15.5 Above high normal [facility] Platelet Count 254 x10 3/uL 150-450 Normal (applies to non-numeric results) [facility] Mean Platelet Volume 9.4-12.4 Normal (applies to non-num aleksandar results) [facility] Neutrophils% (Auto) 31.0-71.0 Above high normal [facility] Lymphocytes% (Auto) 20.0-55.0 Below low normal [facility] Monocytes% (Auto) 4.0-12.0 Normal (applies to non-numeri c results) [facility] Eosinophils% (Auto) 1.0-8.0 Normal (applies to non-nume veronica results) [facility] Basophils% (Auto) 0.0-2.0 Normal (applies to non-numeri c results) [facility] Immature Granulocytes% (Auto) 0.0-2.0 Normal (nirmal lies to non-numeric results) [facility] Neutrophils# (Auto) 1.50-6.20 Normal (applies to non-nume veronica results) [facility] Lymphocytes# (Auto) 1.20-4.00 Below low normal [facility] Monocytes# (Auto) 0.00-0.90 Normal (applies to non-numeri c results) [facility] Eosinophils# (Auto) 0.00-0.50 Normal (applies to non-nume veronica results) [facility] Basophils# (Auto) 0.00-0.20 Normal (applies to non-numeri c results) [facility] Immature Granulocytes# (Auto) 0.00-7.00 No rmal (applies to non-numeric results) [facility] Slide Reviewed By Normal (applies to non-numeri c results) [facility] Slide has been reviewed and findings con firmed by a technologist/electronic security technician. ID Date Data Source [id number] 03/22/2020 05:08:00 PM [facility] Name Value Range Interpretation Code Description Data Liv rce(s) Supporting Document(s) B-Type Natriuretic Peptide BNP <125 Above high normal [facility] Results of this test should always be us ed in conjunction with the patients medical history, clinical presentation, and other findings. ID Date Data Source [id number] 03/22/2020 04:56:00 PM [facility] Name Value Range Interpretation Code Description Data Liv rce(s) Supporting Document(s) PT 9.2-11.7 Normal (applies to non-numeric results) [facility] INR Normal (applies to non-numeric results) [facility] The use of INR is restricted to patients on stable oral anticoagulant. Therapeutic Range: 2.0 - 3.0 High Risk Range: 2.5 - 3.5 ID Date Data Source [id number] 03/22/2020 04:56:00 PM [facility] Name Value Range Interpretation Code Description Data Liv rce(s) Supporting Document(s) PTT 23.8-37.[address] [facility] ID Date Data Source [id number] 03/22/2020 04:56:00 PM [facility] Name Value Range Interpretation Code Description Data Liv rce(s) Supporting Document(s) Troponin I 0.000-0.056 Normal (applies to non-numeric resu lts) [facility] ID Date Data Source [id number] 03/22/2020 04:56:00 PM EST [facility] Name Value Range Interpretation Code Description Data Liv rce(s) Supporting Document(s) Sodium 140 mmol/L 136-145 Normal (applies to non-numeric resul ts) [facility] Potassium 3.5-5.1 Normal (applies to non-numeric resul ts) [facility] Chloride 100 mmol/L 98-107 Normal (applies to non-numeric resul ts) [facility] Carbon Dioxide CO2 21-32 Above high normal [facility] Anion Gap 5.0-16.0 Normal (applies to non-numeric resul ts) [facility] BUN 35 mg/dL 7-18 Above high normal [facility] Creatinine,Serum 0.7-1.2 Above high normal [facility] GFR 6 mL/min >[address] [facility] Glucose Level 135 mg/dL 60-99 Above high normal [facility] Reference range is only applicable when patient is fasting Note the following drug interference: Sulfasalazine Sulfapyridine Can see falsely depressed Can see falsely elevated result with up to 17% results with up to 11% decrease in measurement increase in measurement Recommend patients be collected for this test prior to administration of either drug. Calcium 8.5-10.1 Normal (applies to non-numeric resul ts) [facility] Bilirubin,Total 0.1-1.9 Normal (applies to non-numeric results) [facility] SGOT(AST) 15 U/L 15-37 Normal (applies to non-numeric resul ts) [facility] Note the following drug interference: Sulfasalazine Sulfapyridine Can see falsely depressed Can see falsely elevated result with up to 10% results with up to 10% decrease in measurement increase in measurement Recommend patients be collected for this test prior to administration of either drug. SGPT(ALT) 26 U/L 12-78 Normal (applies to non-numeric resul ts) [facility] Note the following drug interference: Sulfasalazine Sulfapyridine Can see falsely depressed Can see falsely elevated result with up to 29% results with up to 10% decrease in measurement increase in measurement Recommend patients be collected for this test prior to administration of either drug. Alkaline Phosphatase 85 U/L 38-126 Normal (applies to non-num aleksandar results) [facility] can increase Alkaline Phosp le vels up to 2 times the normal adult value. Normal values for children and adolescents are 2 to 3 times the normal adult value. Total Protein 6.0-8.2 Normal (applies to non-numeric re sults) [facility] Albumin Level 3.4-5.0 Normal (applies to non-numeric re sults) [facility] ID Date Data Source [id number] 03/22/2020 04:56:00 PM [facility] Name Value Range Interpretation Code Description Data Liv rce(s) Supporting Document(s) Amylase 99 U/L 25-115 Normal (applies to non-numeric resul ts) [facility] ID Date Data Source [id number] 03/22/2020 04:56:00 PM [facility] Name Value Range Interpretation Code Description Data Liv rce(s) Supporting Document(s) Lipase 298 U/L 73-393 Normal (applies to non-numeric resul ts) [facility] ID Date Data Source [id number] 03/22/2020 04:31:00 PM [facility] Imaging Services Department Imaging Report [address] [address] %(RAD)RES..mtdd.print.filter("line") Name: RONNIE ACOSTA : 1945 Age/Sex: 75F Ordering Provider: TAURUS Meade Med Rec #: [id number] Reg Status: DEP ER Room #: Date of Service: 03/22/20 Report Number: [id number] cc:Moe Alvarez Reason, DO Send Report To: [id number] CT/CT Abdomen & Pelvis No Contras Reason [...] Date/Time: 03/22/20 1556 Transcribed Date/Time: 03/22/20 1631 Aemt: WAYNE Name Value Range Interpretation Code Description Data Liv rce(s) Supporting Document(s) ID Date Data Source [id number] 03/22/2020 04:37:00 PM [facility] Imaging [facility] Department Imaging Report [address], [place] [address] %(RAD)RES..mtdd.print.filter("line") Name: RONNIE ACOSTA : 1945 Age/Sex: 75F Ordering Provider: TAURUS Meade Med Rec #: [id number] Reg Status: [facility] Room #: Date of Service: 03/22/20 Report Number: [id number] cc:Meo Alvarez Reason, DO; TAURUS Meade Send Report To: [id number] XRP/XR Chest Xray Portable Reason for exam: [...] Date/Time: 03/22/20 1620 Transcribed Date/Time: 03/22/20 1637 Aemt: WAYNE Name Value Range Interpretation Code Description Data Liv rce(s) Supporting Document(s) ID Date Data Source [id number] 03/22/2020 04:39:00 PM [facility] First test? [facility]? NOSymptomatic per CDC? YESHospitalized? NOICU? NOResident in congregated care? ex halfway, [facility] NO? NO Name Value Range Interpretation Code Description Data Liv rce(s) Supporting Document(s) RP Internal Control Passed Normal (applies to non-nume veronica results) [facility] Adenovirus None Detect Normal (applies to non-numeric resu lts) [facility] Coronavirus 229E None Detect Normal (applies to non-numeri c results) [facility] Coronavirus HKU1 None Detect Normal (applies to non-numeri c results) [facility] Coronavirus NL63 None Detect Normal (applies to non-numeri c results) [facility] Coronavirus OC43 None Detect Normal (applies to non-numeri c results) [facility] SARS-CoV-2 Not Detect Normal (applies to non-numeric resul ts) [facility] Negative results do not preclude SARS-Co V-2 infection and should not be used as the sole basis for treatment or other patient management decisions. Negative results must be combined with clinical observations, patient history, and epidemiological information. Testing was performed using the [employer] real-time nested multiplexed PCR Respiratory Panel 2.1 [...] Detect Normal (applies to non-n umeric results) [facility] Rhino/Enterovirus None Detect Normal (applies to non-numer ic results) [facility] Influenza A None Detect Normal (applies to non-numeric res ults) [facility] Influenza B None Detect Normal (applies to non-numeric res ults) [facility] Parainfluenza Virus 1 None Detect Normal (applies to non-n umeric results) [facility] Parainfluenza Virus 2 None Detect Normal (applies to non-n umeric results) [facility] Parainfluenza Virus 3 None Detect Normal (applies to non-n umeric results) [facility] Parainfluenza Virus 4 None Detect Normal (applies to non-n umeric results) [facility] Respiratory Syncytial Virus None Detect Norm al (applies to non-numeric results) [facility] Bordetella Parapertussis None Detect Normal (applies to non-numeric results) [facility] Bordetella Pertussis None Detect Normal (applies to non-nu meric results) [facility] Chlamydia Pneumoniae None Detect Normal (applies to non-nu meric results) [facility] Mycoplasma Pneumoniae None Detect Normal (applies to non-n umeric results) [facility] Methodology: Multiplexed PCR Refer ence Range: None detected ID Date Data Source [id number] 03/02/2020 05:07:00 PM [facility] Name Value Range Interpretation Code Description Data Liv rce(s) Supporting Document(s) SARS coronavirus 2 RNA [Presence] in Res piratory specimen by ZANE with probe detection [facility] This lab was ordered by [facility] a nd reported by [facility]. ID Date Data Source [id number] 01/28/2020 12:17:00 PM EST [facility] Name Value Range Interpretation Code Description Data Liv rce(s) Supporting Document(s) Glucose [Mass/volume] in Capillary blood by Glucometer 132 mg/dL 83-110 Above high normal [facility] ([facility]) ID Date Data Source [id number] 01/28/2020 08:14:00 AM EST [facility] ([facility]) Name Value Range Interpretation Code Description Data Liv rce(s) Supporting Document(s) Glucose [Mass/volume] in Capillary blood by Glucometer 155 mg/dL 83-110 Above high normal [facility] ([facility]) ID Date Data Source [id number] 01/21/2020 01:04:00 PM EST [facility] ([facility]) Name Value Range Interpretation Code Description Data Liv rce(s) Supporting Document(s) Glucose [Mass/volume] in Capillary blood by Glucometer 172 mg/dL 83-110 Above high normal [facility] ([facility]) ID Date Data Source [id number] 12/05/2019 12:03:00 PM EDT [facility] ([facility]) Name Value Range Interpretation Code Description Data Liv rce(s) Supporting Document(s) Hemoglobin A1c/Hemoglobin.total in Blood Laboratory test result [facility] Glucose [Mass/volume] in Serum or Plasma 382 [facility] ID Date Data Source [id number] 11/29/2019 06:27:00 AM EDT [facility] Imaging Services Department Imaging Report [address] [place] [id number] %(RAD)RES..mtdd.print.filter("line") Name: RONNIE ACOSTA : 1945 Age/Sex: 74F Ordering Provider: Moe Champion DO Med Rec #: [id number] Reg Status: DEP REF Room #: Date of Service: 11/28/19 Report Number: [id number] cc:Moe Champion DO Send Report To: [id number] US/US Dup Lower Ext Artery Bilat Reason [...] Higgins MD> 11/29/19 1051 Dictation Date/Time: 11/28/19 9546 Transcribed Date/Time: 11/29/19 0614 Aemt: VINCENZO Name Value Range Interpretation Code Description Data Liv rce(s) Supporting Document(s) Procedure Social History Code Duration Value Status Description Data Source(s ) Alcohol intake 11/03/2020 12:00:00 AM EDT Current non-d may of alcohol (finding) completed Current non-drinker of alcohol (finding) [facility] Smoking 10/27/2020 12:00:00 AM EDT Former Smoker completed Former Smoker eCW1 ([facility]) Smoking 08/18/2020 12:00:00 AM EDT Patient is a former smoker completed Patient is a former smoker KEIRA ([facility]) Alcohol intake 08/11/2020 12:00:00 AM EDT Current non-d may of alcohol (finding) completed Current non-drinker of alcohol (finding) [facility] Alcohol intake 03/17/2020 12:00:00 AM EST No completed [facility] Cigarette pack-years 03/17/2020 12:00:00 AM EST UNK completed [facility] Cigarettes smoked current (pack per day) - Reported 03/17/19 12:00:00 AM EST UNK completed [facility] Smoking 03/17/2020 12:00:00 AM EST Former smoker completed Former smoker [facility] Smoking 12/05/2019 12:00:00 AM EDT Patient is a former smoker completed Patient is a former smoker [facility] ([facility]) Vital Signs ID Date Data Source UNK Name Value Range Interpretation Code Description Data Source(s) Heart rate 81 /min 81 /min [facility] ([facility] ) Systolic blood pressure 166 mm[Hg] 166 mm[Hg] M EDENT ([facility] ) Diastolic blood pressure 81 mm[Hg] 81 mm[Hg] [facility] ([facility] ) Body temperature 98.4 [degF] 98.4 [degF] [facility] ([facility] ) Body height 65 [in_i] 65 [in_i] [facility] ([facility], ) 5'5" [place] body weight 125 [lb_av] 125 [lb_av] MEDEN T ([facility] ) Systolic blood pressure 158 mm[Hg] 158 mm[Hg] [facility] Diastolic blood pressure 58 mm[Hg] 58 mm[Hg] [facility] Heart rate 64 /min 64 /min [facility] Respiratory rate 8 /min 8 /min [facility] Body height 165.1 cm 165.1 cm [facility] Body weight 64.864 kg 64.864 kg [facility] Body mass index (BMI) [Ratio] 23.80 kg/m2 23.80 kg/m2 [facility] Oxygen saturation in Arterial blood by Pulse oximetry 94 % 94 % [facility] Body weight 144.8 [lb_av] 144.8 [lb_av] eCW1 ([facility]) Body weight 65.68 kg 65.68 kg W1 ([facility]) Body height 65 [in_i] 65 [in_i] eCW1 ([facility]) Body mass index (BMI) [Ratio] 24.09 kg/m2 24.09 kg/m2 [facility] ([facility]) Heart rate 83 /min 83 /min eCW1 ([facility]) Respiratory rate 17 /min 17 /min eCW1 ([facility]) Body temperature 96.3 [degF] 96.3 [degF] eCW1 ( [facility]) Systolic blood pressure 158 mm[Hg] 158 mm[Hg] e CW1 ([facility]) Diastolic blood pressure 70 mm[Hg] 70 mm[Hg] eCW1 ([facility]) Body weight 144.00 [lb_av] 144.00 [lb_av] MEDEN T ([facility]) Body mass index (BMI) [Ratio] 24.0 kg/m2 24.0 k g/m2 [facility] ([facility]) [place] body weight 125 [lb_av] 125 [lb_av] MED[facility] T ([facility]) Systolic blood pressure 130 mm[Hg] 130 mm[Hg] M EDENT ([facility]) Diastolic blood pressure 68 mm[Hg] 68 mm[Hg] [facility] ([facility]) Body height 65 [in_i] 65 [in_i] [facility] ([facility]) 5'5" Body weight 65.318 kg 65.318 kg [facility] ([facility]) Body surface area Derived from formula 1.72 m2 1.72 m2 [facility] ([facility]) Body height 65 [in_i] 65 [in_i] [facility] ([facility]) 5'5" Body weight 144.00 [lb_av] 144.00 [lb_av] MEDEN T ([facility]) Body mass index (BMI) [Ratio] 24.0 kg/m2 24.0 k g/m2 [facility] [place] body weight 125 [lb_av] 125 [lb_av] MEDEN T ([facility]) Body weight 65.318 kg 65.318 kg [facility] ([facility]) Body surface area Derived from formula 1.72 m2 1.72 m2 [facility] ([facility]) Systolic blood pressure 168 mm[Hg] 168 mm[Hg] [facility] Diastolic blood pressure 88 mm[Hg] 88 mm[Hg] [facility] Heart rate 85 /min 85 /min [facility] Body height 165.1 cm 165.1 cm [facility] Body weight 64.411 kg 64.411 kg [facility] Body mass index (BMI) [Ratio] 23.63 kg/m2 23.63 kg/m2 [facility] Systolic blood pressure 120 mm[Hg] 120 mm[Hg] M EDENT ([facility] ) Diastolic blood pressure 60 mm[Hg] 60 mm[Hg] [facility] ([facility] ) Body height 65 [in_i] 65 [in_i] [facility] ([facility], ) 5'5" Body surface area Derived from formula 1.69 m2 1.69 m2 [facility] Body weight 137.25 [lb_av] 137.25 [lb_av] MED[facility] T ([facility] ) Body mass index (BMI) [Ratio] 22.8 kg/m2 22.8 k g/m2 [facility] ([facility] ) [place] body weight 125 [lb_av] 125 [lb_av] MED[facility] T ([facility] ) Body weight 62.257 kg 62.257 kg [facility] ([facility], ) Systolic blood pressure 140 mm[Hg] 140 mm[Hg] [facility] Diastolic blood pressure 70 mm[Hg] 70 mm[Hg] [facility] Heart rate 70 /min 70 /min [facility] Body height 165.1 cm 165.1 cm [facility] Body weight 66.225 kg 66.225 kg [facility] Body mass index (BMI) [Ratio] 24.30 kg/m2 24.30 kg/m2 [facility] Oxygen saturation in Arterial blood by Pulse oximetry 93 % 93 % [facility] [place] body weight 125 [lb_av] 125 [lb_av] MED[facility] T ([facility] ) Diastolic blood pressure 60 mm[Hg] 60 mm[Hg] [facility] ([facility] ) Body height 65 [in_i] 65 [in_i] [facility] ([facility], ) 5'5" Body weight 151.00 [lb_av] 151.00 [lb_av] MEDEN T ([facility]) Body mass index (BMI) [Ratio] 25.1 kg/m2 25.1 k g/m2 [facility] ([facility]) Body weight 68.494 kg 68.494 kg [facility] ([facility]) Body surface area Derived from formula 1.76 m2 1.76 m2 [facility] ([facility]) Systolic blood pressure 120 mm[Hg] 120 mm[Hg] M EDENT ([facility]) Systolic blood pressure 138 mm[Hg] 138 mm[Hg] [facility] ([facility]) Diastolic blood pressure 68 mm[Hg] 68 mm[Hg] [facility] ([facility]) Body height 65 [in_i] 65 [in_i] [facility] ([facility]) 5'5" Body weight 150.00 [lb_av] 150.00 [lb_av] MEDEN T ([facility]) Body mass index (BMI) [Ratio] 25.0 kg/m2 25.0 k g/m2 [facility] ([facility]) [place] body weight 125 [lb_av] 125 [lb_av] MED[facility] T ([facility]) Body weight 68.040 kg 68.040 kg [facility] ([facility]) Body surface area Derived from formula 1.75 m2 1.75 m2 [facility] ([facility]) Body height 65 [in_i] 65 [in_i] [facility] ([facility]) 5'5" Body weight 157.38 [lb_av] 157.38 [lb_av] MEDEN T ([facility]) Body mass index (BMI) [Ratio] 26.2 kg/m2 26.2 k g/m2 [facility] ([facility]) Oxygen saturation in Arterial blood by Pulse oximetry 9 % 9 % [facility] ([facility]) Systolic blood pressure 126 mm[Hg] 126 mm[Hg] M EDENT ([facility]) Diastolic blood pressure 72 mm[Hg] 72 mm[Hg] [facility] Heart rate 74 /min 74 /min [facility] Systolic blood pressure 139 mm[Hg] 139 mm[Hg] M EDENT ([facility]) Diastolic blood pressure 74 mm[Hg] 74 mm[Hg] [facility] ([facility]) Heart rate 76 /min 76 /min [facility] ([facility]) Body height 65 [in_i] 65 [in_i] [facility] 5'5" Body weight 148.00 [lb_av] 148.00 [lb_av] MEDEN T ([facility]) Body mass index (BMI) [Ratio] 24.6 kg/m2 24.6 k g/m2 [facility] ([facility]) [place] body weight 125 [lb_av] 125 [lb_av] [facility] Body weight 67.133 kg 67.133 kg [facility] ([facility]) ID Date Data Source [id number] 06/04/2020 02:39:00 PM ED[facility] Name Value Range Interpretation Code Description Data Source(s) Weight Measurement Method 8 8 [facility] Weight 4938.354 4938.354 [facility] Temperature Source 1 1 [facility] Temperature 98.[address] [facility] spital Respiratory Effort 14 14 [facility] Respiratory Rate 16 16 [facility] Pulse Assessment Method [address] [facility] 75 [facility] 65 65 [facility] Blood Pressure 168/75 168/75 [facility] ID Date Data Source [id number] 03/22/2020 05:14:[address] [facility] spital Name Value Range Interpretation Code Description Data Source(s) Weight Measurement Method 8 8 [facility] Weight 2320 2320 [facility] pital Temperature Source 7 7 [facility] Temperature 97.[address] [facility] spital Respiratory Effort 1 1 [facility] Respiratory Rate 17 17 [facility] Pulse Assessment Method [address] [facility] Pulse Rate 72 72 [facility] pital Height 65 65 [facility] pital Blood Pressure 174/96 174/96 [facility] Weight Measurement Method 8 8 [facility] Weight 2320 2320 [facility] pital Temperature Source 7 7 [facility] Temperature [address] [facility] spital Respiratory Effort 1 1 [facility] Respiratory Rate 17 17 [facility] Pulse Assessment Method [address] [facility] Pulse Rate 80 80 [facility] pital Height 65 65 [facility] Pressure 174/96 174/96 [facility] Weight Measurement Method 8 8 [facility] Weight 2320 2320 [facility] pital Temperature Source 7 7 [facility] Temperature [address] [facility] spital Respiratory Effort 1 1 [facility] Respiratory Rate 17 17 [facility] Pulse Assessment Method [address] [facility] Pulse Rate 80 80 [facility] pital Height 65 65 [facility] Blood Pressure 174/96 174/96 [facility] Patient Treatment Plan of Care Planned Activity Planned Date Details Description Data Source (s) Methoxy PEG-Epoetin Beta (MIRCERA IJ) 07/31/2020 12:00:00 AM EDT [facility] VITAMIN D, CHOLECALCIFEROL, PO 07/20/2020 12:00:00 AM EDT [facility] Amlodipine 5 MG Oral Tablet 03/10/2020 12:00:00 AM EST [facility] sodium chloride 0.9 % SOLN 500 mL with h eparin (porcine) 1000 UNIT/ML SOLN 1,000 Units 10/16/2019 12:00:00 AM EDT [facility] Calcium Carbonate-Vit D-Min (CALCIUM 600+D3 PLUS FORM DESIGNER ALS) 600-800 MG-UNIT TABS 09/18/2019 12:00:00 AM EDT [facility] Labetalol hydrochloride 100 MG Oral Tablet 06/29/2019 12:00:00 AM E DT [facility] gabapentin 100 MG Oral Capsule 05/28/2019 12:00:00 AM EDT [facility] sodium chloride 0.9 % SOLN 50 mL with insulin regular 100 UNIT/ML SOLN [address] [facility] sennosides, HALF-WAY 8.6 MG Oral Capsule [facility] tramadol hydrochloride 50 MG Oral Tablet [facility] MENTHOL-METHYL SALICYLATE EX [facility] Aspirin 81 MG Oral Tablet [facility] POLYETHYLENE GLYCOL 3350 142 MG/ML Oral Solution [facility] Tetrahydrozoline hydrochloride 0.5 MG/ML Ophthalmic Solution [facility] 1 ML heparin sodium, porcine 1000 UNT/ML Injection [facility] Naphazoline-Pheniramine (VISINE-A OP) [facility]
[2020-12-10 11:54] LABS: BASO % 0.4 % (0.0-1.0); EOS # 0.1 10^3/uL (0.0-0.5); EOS % 2.2 % (0.0-3.0); HEMOGLOBIN 9.4 g/dl (12.0-15.5); LYMPH # 0.7 10^3/uL (1.5-5.0); LYMPH % 11.9 % (24.0-44.0); MEAN CORPUSCULAR HEMOGLOBIN 27.6 pg (27.0-33.0); MEAN CORPUSCULAR HGB CONC 29.4 g/dl (32.0-36.5); MEAN CORPUSCULAR VOLUME 93.8 fl (80.0-96.0); MONO # 0.5 10^3/uL (0.0-0.8); MONO % 8.3 % (2.0-8.0); NEUTROPHILS # 4.3 10^3/uL (1.5-8.5); NEUTROPHILS % 76.8 % (36.0-66.0); PLATELET COUNT, AUTOMATED 135 10^3/uL (150-450); RED BLOOD COUNT 3.41 10^6/uL (4.00-5.40); WHITE BLOOD COUNT 5.6 10^3/uL (4.0-10.0)
[2020-12-10] MEDS ORDERED: ONDANSETRON 4MG/2ML VIAL IV ONE (12:20)
[2020-12-10] MEDS ORDERED: MORPHINE 2 MG/ML 1ML VIAL (J2270) IV ONE (12:20)
[2020-12-10 12:25] LABS: RSV AMPLIFICATION NEGATIVE (NEGATIVE)
[2020-12-10] MEDS ORDERED: cefTRIAXone SOD 1 GM in D5W MINI-BAG PLUS 50 ML IV ONE (12:25)
[2020-12-10] MEDS ORDERED: AZITHROMYCIN INJ 500 MG, VIAL MATE ADAPTER 1 EACH in NS 250 ML IV ONE (12:25)
[2020-12-10 12:29] LABS: ALBUMIN 3.2 GM/DL (3.2-5.2); BILIRUBIN,DIRECT 0.1 MG/DL (0.0-0.2); BILIRUBIN,TOTAL 0.5 MG/DL (0.2-1.0); CALCIUM LEVEL 8.8 MG/DL (8.8-10.2); CK-MB VALUE MASS 1.7 NG/ML (<3.6); CREATININE FOR GFR 5.97 MG/DL (0.55-1.30); GLOMERULAR FILTRATION RATE 7.3 (>39); MB/CK RELATIVE INDEX 1.52 (< OR =4); POTASSIUM SERUM 4.5 MEQ/L (3.5-5.1); TROPONIN I 0.05 NG/ML (< 0.10)
[2020-12-10] MEDS ORDERED: COMBAER6 INH (14:34)
[2020-12-10] MEDS ORDERED: TRAZ-252 PO (14:34)
[2020-12-10] MEDS ORDERED: IBUP200T45 PO (14:34)
[2020-12-10] MEDS ORDERED: CARV12.5 PO (14:34)
[2020-12-10] MEDS ORDERED: HYDR-643 PO (14:34)
[2020-12-10] MEDS ORDERED: DEXTROSE 50% 50 ML SYRINGE IV PRN (14:35)
[2020-12-10] MEDS ORDERED: GLUCAGON INJ 1MG VIAL SC PRN (14:35)
[2020-12-10] MEDS ORDERED: GLUCOSE 4GM CHEW TABLET PO PRN (14:35)
[2020-12-10] MEDS ORDERED: HOME MED LIST COMPLETE! XX SCH (14:40)
--- OUTSIDE RECORDS SUMMARY | 2020-12-10 14:49 | CCD ---
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 PANEL CALCIUM TOTAL <td>BASIC METABOLI C PANEL</td><td>Routine</td><td>05/12/2020</td><td></td><td> </td> 05/12/2020 12:00:00 AM EDT [facility] TROPONIN QUANTITATIVE <td>TROPONIN I</td><td>Routine</td><td>05/11/2020</td><td></td><td> </td> 05/11/2020 12:00:00 AM EDT [facility] THYROID STIMULATING HORMONE TSH <td>TSH</td><td>Routine</td><td>05/11/2020</td><td></td><td> </td> 05/11/2020 12:00:00 AM EDT [facility] BASIC METABOLIC PANEL CALCIUM TOTAL <td>BASIC METABOLI C PANEL</td><td>Routine</td><td>05/11/2020</td><td></td><td> </td> 05/11/2020 12:00:00 AM EDT [facility] ECG ROUTINE ECG W/LEAST 12 LDS W/I&R <td>POCT AMB EKG</td><td>Routine</td><td>03/17/2020 12:45 PM EST</td><td> Ischemic cardiomyopathy EF 35%</td><td> </td> 03/17/2020 05:45:00 PM EST Ischemic cardiomyopathy EF 35% [facility] Ischemic cardiomyopathy EF 35% Revascularization,Endovascular,Transluminal Angioplasty 01/28/2020 12:00:00 AM EST [facility] REVSC OPN/PRQ TIB/RICH W/ANGIOPLASTY UNI 01/28/2020 12 :00:00 AM EST [facility] ([facility], ) REVSC OPN/PRQ TIB/RICH W/ANGIOPLASTY UNI EA VSL 2019 12:00:00 AM EST [facility] ([facility], ) Moderate Sedation Services; Same Phys Intl 15 Mins; PT >= 5 Years 01/28/2020 12:00:00 AM EST [facility] ([facility], ) Dialysis Circuit W/ Transluminal Balloon Angioplasty, Periph eral 01/21/2020 12:00:00 AM EST [facility] ([facility] ) Translum Balloon Angio Central Dial Segment Through Dialys C ircui 01/21/2020 12:00:00 AM EST [facility] ([facility] ) Moderate Sedation Services; Same Phys Intl 15 Mins; PT >= 5 Years 01/21/2020 12:00:00 AM EST [facility] ([facility] ) Dialysis Circuit W/ Transluminal Balloon Angioplasty, Periph eral 10/18/2019 12:00:00 AM EDT [facility] ([facility] ) Translum Balloon Angio Central Dial Segment Through Dialys C ircui 10/18/2019 12:00:00 AM EDT [facility] Moderate Sedation Services; Same Phys Intl 15 Mins; PT >= 5 Years 10/18/2019 12:00:00 AM EDT [facility] ([facility] ) Results ID Date Data Source [id number] 11/18/2020 05:31:00 PM EDT [facility] Imaging Services Department Imaging Report [address], [place] [address] Name: SHANTRONNIE Salguero : 1945 Age/Sex: 75F Ordering Provider: Moe Champion DO Med Rec #: [id number] Date of Service: 11/17/20 Report Number: [id number] cc: Moe Champion DO Send Report To: [id number] MAMMOSCR/Screening Digital Mammo CAD Reason for Exam: [...] DESCRIPTION: BENIGN. REPORT SIGNATURE ON FILE 11/19/20 121 Reported By: Ray Pardo MD <Electronically signed by Kiana Pardo MD>11/19/201211 Dictation Date/Time: 11/17/201751 Transcribed Date/Time: 11/18/201730 Plant Physiology Teacher: VINCENZO Name Value Range Interpretation Code Description Data Liv rce(s) Supporting Document(s) ID Date Data Source [id number] 10/05/2020 04:32:00 PM EDT [facility] Name Value Range Interpretation Code Description Data Liv rce(s) Supporting Document(s) SARS-CoV-2 (COVID 19) NEGATIVE - SARS-CoV-2 (COVID19) [facility] This lab was ordered by [facility] a nd reported by [facility]. ID Date Data Source [id number] 06/05/2020 05:18:00 AM EDT [facility] Imaging Services Department Imaging Report [address], [place] [address] %(RAD)RES..mtdd.print.filter("line") Name: RONNIE ACOSTA : 1945 Age/Sex: 75F Ordering Provider: TAURUS Richardson Med Rec #: [id number] Reg Status: [facility] Room #: Date of Service: 06/04/20 Report Number: [id number] cc:Moe Alvarez Reason, DO Send Report To: [id number] XRP/XR Ribs Rt w PA Chest Reason [...] REPORT SIGNATURE ON FILE Reported By: Roger Temple, <Electronically signed by Roger Temple DO> 06/08/20 1036 Dictation Date/Time: 06/04/20 1349 Transcribed Date/Time: 06/05/20 0518 Plant Physiology Teacher: VINCENZO Name Value Range Interpretation Code Description Data Liv rce(s) Supporting Document(s) ID Date Data Source [id number] 05/26/2020 09:07:00 PM EDT [facility] Value Range Interpretation Code Description Data Lvi rce(s) Supporting Document(s) FESAT Iron result 28 ug/dL 37-170 [facility] Test Performed By: [facility] [address] [place] [address] Director: Yassine Wade MD FESAT TIBC result 179 ug/dL 265-497 [facility] Test Performed By: [facility] [address] [place] [address] Director: Yassine Wade MD FESAT %Iron Saturation result 12.0-55.0 No rmal (applies to non-numeric results) [facility] Test Performed By: [facility] [address] [place] [address] Director: Yassine Wade MD ID Date Data Source [id number] 05/26/2020 09:07:[address] [facility] Value Range Interpretation Code Description Data Liv rce(s) Supporting Document(s) Ferritin result 1588 ng/mL 11.1-264.0 [facility] Test Performed By: [facility] [address] [place] [address] Director: Yassine Wade MD ID Date Data Source [id number] 05/26/2020 09:07:[address] [facility] Value Range Interpretation Code Description Data Liv rce(s) Supporting Document(s) CPK result 82 U/L 26-192 Normal (applies to non-numeric resul ts) [facility] Test Performed By: [facility] [address] [place] [address] Director: Yassine Wade MD ID Date Data Source [id number] 05/26/2020 09:07:00 PM EDT [facility] Name Value Range Interpretation Code Description Data Liv rce(s) Supporting Document(s) Vitamin B12 result 774 pg/mL 193-986 Normal (applies to non-numer ic results) [facility] Test Performed By: [facility] [address] [place] [address] Director: Yassine Wade MD ID Date Data Source [id number] 05/26/2020 09:07:00 PM EDT [facility] Name Value Range Interpretation Code Description Data Liv rce(s) Supporting Document(s) Folate result 2.76-20.0 Normal (applies to non-numeric re sults) [facility] Test Performed By: [facility] [address] [place] [address] Director: Yassine Wade MD ID Date Data Source [id number] 05/26/2020 03:36:00 PM EDT [facility] Name Value Range Interpretation Code Description Data Liv rce(s) Supporting Document(s) Vitamin D, Total 30.0-100.0 Normal (applies to non-numeric results) [facility] ID Date Data Source [id number] 05/26/2020 03:14:00 PM EDT [facility] Name Value Range Interpretation Code Description Data Liv rce(s) Supporting Document(s) White Blood Count 3.5-10.5 Normal (applies to non-numeri c results) [facility] Red Blood Count 3.90-5.00 Normal (applies to non-numeric results) [facility] Hemoglobin 12.0-15.5 Below low normal [facility] Hematocrit 34.9-44.5 Normal (applies to non-numeric resul ts) [facility] Mean Corpuscular Volume 81.2-95.1 Normal (applies to non- numeric results) [facility] Mean Corpuscular Hgb 25.6-32.2 Normal (applies to non-num aleksandar results) [facility] Mean Corpuscular Hgb Conc 32.0-36.0 Below low normal [facility] Red Cell Distribution Width 11.9-15.5 Above high normal [facility] Platelet Count 137 x10 3/uL 150-450 Below low normal [facility] Mean Platelet Volume 9.4-12.4 Normal (applies to non-num aleksandar results) [facility] Neutrophils% (Auto) 31.0-71.0 Above high normal [facility] Lymphocytes% (Auto) 20.0-55.0 Below low normal [facility] Monocytes% (Auto) 4.0-12.0 Normal (applies to non-numeri c results) [facility] Eosinophils% (Auto) 1.0-8.0 Normal (applies to non-nume veronica results) [facility] Basophils% (Auto) 0.0-2.0 Normal (applies to non-numeri c results) [facility] Immature Granulocytes% (Auto) 0.0-2.0 Normal (nirmal lies to non-numeric results) [facility] Neutrophils# (Auto) 1.50-6.20 Normal (applies to non-nume veronica results) [facility] Lymphocytes# (Auto) 1.20-4.00 Below low normal [facility] Monocytes# (Auto) 0.00-0.90 Normal (applies to non-numeri c results) [facility] Eosinophils# (Auto) 0.00-0.50 Normal (applies to non-nume veronica results) [facility] Basophils# (Auto) 0.00-0.20 Normal (applies to non-numeri c results) [facility] Immature Granulocytes# (Auto) 0.00-7.00 No rmal (applies to non-numeric results) [facility] Slide Reviewed By Normal (applies to non-numeri c results) [facility] Slide has been reviewed and findings con firmed by a technologist/avionics technician. ID Date Data Source [id number] 05/26/2020 03:09:00 PM EDT [facility] Name Value Range Interpretation Code Description Data Liv rce(s) Supporting Document(s) Sodium 144 mmol/L 136-145 Normal (applies to non-numeric resul ts) [facility] Potassium 3.5-5.1 Normal (applies to non-numeric resul ts) [facility] Chloride 103 mmol/L 98-107 Normal (applies to non-numeric resul ts) [facility] Carbon Dioxide CO2 21-32 Normal (applies to non-numer ic results) [facility] Anion Gap 5.0-16.0 Normal (applies to non-numeric resul ts) [facility] BUN 41 mg/dL 7-18 Above high normal [facility] Creatinine,Serum 0.7-1.2 Above high normal [facility] GFR 7 mL/min >60 Below low normal [facility] Glucose Level 169 mg/dL 60-99 Above high normal [facility] Reference range is only applicable when patient is fasting Note the following drug interference: Sulfasalazine Sulfapyridine Can see falsely depressed Can see falsely elevated result with up to 17% results with up to 11% decrease in measurement increase in measurement Recommend patients be collected for this test prior to administration of either drug. Calcium 8.5-10.1 Normal (applies to non-numeric resul ts) [facility] Bilirubin,Total 0.1-1.9 Normal (applies to non-numeric results) [facility] SGOT(AST) 12 U/L 15-37 Below low normal [facility] Note the following drug interference: Sulfasalazine Sulfapyridine Can see falsely depressed Can see falsely elevated result with up to 10% results with up to 10% decrease in measurement increase in measurement Recommend patients be collected for this test prior to administration of either drug. SGPT(ALT) 19 U/L 12-78 Normal (applies to non-numeric resul ts) [facility] Note the following drug interference: Sulfasalazine Sulfapyridine Can see falsely depressed Can see falsely elevated result with up to 29% results with up to 10% decrease in measurement increase in measurement Recommend patients be collected for this test prior to administration of either drug. Alkaline Phosphatase 64 U/L 38-126 Normal (applies to non-num aleksandar results) [facility] can increase Alkaline Phosp le vels up to 2 times the normal adult value. Normal values for children and adolescents are 2 to 3 times the normal adult value. Total Protein 6.0-8.2 Normal (applies to non-numeric re sults) [facility] Albumin Level 3.4-5.0 Normal (applies to non-numeric re sults) [facility] ID Date Data Source [id number] 05/26/2020 03:09:00 PM EDT [facility] Name Value Range Interpretation Code Description Data Liv rce(s) Supporting Document(s) Triglycerides 188 mg/dL <150 Above high normal [facility] Cholesterol 161 mg/dL 100-200 Normal (applies to non-numeric resu lts) [facility] LDL Cholesterol Calculated 66 0-130 Normal (applies to n on-numeric results) [facility] HDL Cholesterol 57 mg/dL 40-60 Normal (applies to non-numeric results) [facility] Cholesterol/HDL Ratio 3.6-6.7 Below low normal [facility] ID Date Data Source [id number] 05/26/2020 02:58:00 PM EDT [facility] Name Value Range Interpretation Code Description Data Liv rce(s) Supporting Document(s) Hemoglobin A1c Above high normal [facility] Reference Range Normal: < 5.7% Pr ediabetes: 5.7-6.4% Diabetes: > 6.5% Estimated Avg Glucose 151 mg/dL 126-240 Normal (applies to non-numeric results) [facility] ID Date Data Source [id number] 05/26/2020 05:35:00 PM EDT [facility] Name Value Range Interpretation Code Description Data Liv rce(s) Supporting Document(s) Iron FE Level 28 ug/dL 37-170 Below low normal [facility] Test Performed By: [facility] [address] [place] [address] Director: Yassine Wade MD Total Iron Binding Capacity 179 ug/dL 265-497 Below low normal [facility] Test Performed By: [facility] [address] [place] [address] Director: Yassine Wade MD %Iron Saturation 12.0-55.0 Normal (applies to non-numeric results) [facility] Test Performed By: [facility] [address] [place] [address] Director: Yassine Wade MD ID Date Data Source [id number] 05/26/2020 05:35:00 PM EDT [facility] Value Range Interpretation Code Description Data Liv rce(s) Supporting Document(s) CPK 82 U/L 26-192 Normal (applies to non-numeric resul ts) [facility] Test Performed By: [facility] [address] [place] [address] Director: Yassine Wade MD ID Date Data Source [id number] 05/26/2020 05:35:00 PM EDT [facility] Value Range Interpretation Code Description Data Liv rce(s) Supporting Document(s) Ferritin 1588 ng/mL 11.1-264.0 Above high normal [facility] Test Performed By: [facility] [address] [place] [address] Director: Yassine Wade MD ID Date Data Source [id number] 05/26/2020 05:35:00 PM EDT [facility] Value Range Interpretation Code Description Data Liv rce(s) Supporting Document(s) Folate 2.76-20.0 Normal (applies to non-numeric resul ts) [facility] Test Performed By: [facility] [address] [place] [address] Director: Yassine Wade MD ID Date Data Source [id number] 05/26/2020 05:35:00 PM EDT [facility] Value Range Interpretation Code Description Data Liv rce(s) Supporting Document(s) Vitamin B12 774 pg/mL 193-986 Normal (applies to non-numeric resu lts) [facility] Test Performed By: [facility] [address] [place] [address] Director: Yassine Wade MD ID Date Data Source [id number] 05/11/2020 04:46:00 PM EDT [facility] Name Value Range Interpretation Code Description Data Liv rce(s) Supporting Document(s) SARS coronavirus 2 RNA [Presence] in Res piratory specimen by ZANE with probe detection NEGATIVE [facility] This lab was ordered by [facility] a nd reported by [facility]. ID Date Data Source [id number] 04/27/2020 08:03:00 PM EST [facility] Name Value Range Interpretation Code Description Data Liv rce(s) Supporting Document(s) SARS-CoV-2 (COVID 19) NEGATIVE - SARS-CoV-2 (COVID19) [facility] This lab was ordered by [facility] a nd reported by [facility]. ID Date Data Source [id number] 04/22/2020 02:13:00 PM EST [facility] Name Value Range Interpretation Code Description Data Liv rce(s) Supporting Document(s) SARS coronavirus 2 RNA [Presence] in Res piratory specimen by ZANE with probe detection NEGATIVE [facility] This lab was ordered by [facility] a nd reported by [facility]. ID Date Data Source [id number] 04/19/2020 01:35:00 PM EST [facility] Name Value Range Interpretation Code Description Data Liv rce(s) Supporting Document(s) SARS-CoV-2 (COVID 19) NEGATIVE - SARS-CoV-2 (COVID19) [facility] This lab was ordered by [facility] a nd reported by [facility]. ID Date Data Source [id number] 03/30/2020 07:56:00 PM EST [facility] Name Value Range Interpretation Code Description Data Liv rce(s) Supporting Document(s) SARS coronavirus 2 RNA [Presence] in Res piratory specimen by ZANE with probe detection NEGATIVE [facility] This lab was ordered by [facility] a nd reported by [facility]. ID Date Data Source [id number] 03/22/2020 04:40:00 PM EST [facility] Name Value Range Interpretation Code Description Data Liv rce(s) Supporting Document(s) Respiratory specimen severe acute respir atory syndrome coronavirus 2 (SARS-CoV-2) RNA Not Detected [facility] This lab was ordered by [facility] and reported by . ID Date Data Source [id number] 03/22/2020 05:14:00 PM EST [facility] Name Value Range Interpretation Code Description Data Liv rce(s) Supporting Document(s) White Blood Count 3.5-10.5 Normal (applies to non-numeri c results) [facility] Red Blood Count 3.90-5.00 Normal (applies to non-numeric results) [facility] Hemoglobin 12.0-15.5 Below low normal [facility] Hematocrit 34.9-44.5 Below low normal [facility] Mean Corpuscular Volume 81.2-95.1 Normal (applies to non- numeric results) [facility] Mean Corpuscular Hgb 25.6-32.2 Normal (applies to non-num aleksandar results) [facility] Mean Corpuscular Hgb Conc 32.0-36.0 Below low normal [facility] Red Cell Distribution Width 11.9-15.5 Above high normal [facility] Platelet Count 254 x10 3/uL 150-450 Normal (applies to non-numeric results) [facility] Mean Platelet Volume 9.4-12.4 Normal (applies to non-num aleksandar results) [facility] Neutrophils% (Auto) 31.0-71.0 Above high normal [facility] Lymphocytes% (Auto) 20.0-55.0 Below low normal [facility] Monocytes% (Auto) 4.0-12.0 Normal (applies to non-numeri c results) [facility] Eosinophils% (Auto) 1.0-8.0 Normal (applies to non-nume veronica results) [facility] Basophils% (Auto) 0.0-2.0 Normal (applies to non-numeri c results) [facility] Immature Granulocytes% (Auto) 0.0-2.0 Normal (nirmal lies to non-numeric results) [facility] Neutrophils# (Auto) 1.50-6.20 Normal (applies to non-nume veronica results) [facility] Lymphocytes# (Auto) 1.20-4.00 Below low normal [facility] Monocytes# (Auto) 0.00-0.90 Normal (applies to non-numeri c results) [facility] Eosinophils# (Auto) 0.00-0.50 Normal (applies to non-nume veronica results) [facility] Basophils# (Auto) 0.00-0.20 Normal (applies to non-numeri c results) [facility] Immature Granulocytes# (Auto) 0.00-7.00 No rmal (applies to non-numeric results) [facility] Slide Reviewed By Normal (applies to non-numeri c results) [facility] Slide has been reviewed and findings con firmed by a technologist/avionics technician. ID Date Data Source [id number] 03/22/2020 05:08:00 PM [facility] Name Value Range Interpretation Code Description Data Liv rce(s) Supporting Document(s) B-Type Natriuretic Peptide BNP <125 Above high normal [facility] Results of this test should always be us ed in conjunction with the patients medical history, clinical presentation, and other findings. ID Date Data Source [id number] 03/22/2020 04:56:00 PM [facility] Name Value Range Interpretation Code Description Data Liv rce(s) Supporting Document(s) PT 9.2-11.7 Normal (applies to non-numeric results) [facility] INR Normal (applies to non-numeric results) [facility] The use of INR is restricted to patients on stable oral anticoagulant. Therapeutic Range: 2.0 - 3.0 High Risk Range: 2.5 - 3.5 ID Date Data Source [id number] 03/22/2020 04:56:00 PM [facility] Name Value Range Interpretation Code Description Data Liv rce(s) Supporting Document(s) PTT 23.8-37.9 Below low normal [facility] spital ID Date Data Source [id number] 03/22/2020 04:56:00 PM [facility] Name Value Range Interpretation Code Description Data Liv rce(s) Supporting Document(s) Troponin I 0.000-0.056 Normal (applies to non-numeric resu lts) [facility] ID Date Data Source [id number] 03/22/2020 04:56:00 PM [facility] Name Value Range Interpretation Code Description Data Liv rce(s) Supporting Document(s) Sodium 140 mmol/L 136-145 Normal (applies to non-numeric resul ts) [facility] Potassium 3.5-5.1 Normal (applies to non-numeric resul ts) [facility] Chloride 100 mmol/L 98-107 Normal (applies to non-numeric resul ts) [facility] Carbon Dioxide CO2 21-32 Above high normal [facility] Anion Gap 5.0-16.0 Normal (applies to non-numeric resul ts) [facility] BUN 35 mg/dL 7-18 Above high normal [facility] ospital Creatinine,Serum 0.7-1.2 Above high normal [facility] GFR 6 mL/min >60 Below low normal [facility] spital Glucose Level 135 mg/dL 60-99 Above high normal [facility] Reference range is only applicable when patient is fasting Note the following drug interference: Sulfasalazine Sulfapyridine Can see falsely depressed Can see falsely elevated result with up to 17% results with up to 11% decrease in measurement increase in measurement Recommend patients be collected for this test prior to administration of either drug. Calcium 8.5-10.1 Normal (applies to non-numeric resul ts) [facility] Bilirubin,Total 0.1-1.9 Normal (applies to non-numeric results) [facility] SGOT(AST) 15 U/L 15-37 Normal (applies to non-numeric resul ts) [facility] Note the following drug interference: Sulfasalazine Sulfapyridine Can see falsely depressed Can see falsely elevated result with up to 10% results with up to 10% decrease in measurement increase in measurement Recommend patients be collected for this test prior to administration of either drug. SGPT(ALT) 26 U/L 12-78 Normal (applies to non-numeric resul ts) [facility] Note the following drug interference: Sulfasalazine Sulfapyridine Can see falsely depressed Can see falsely elevated result with up to 29% results with up to 10% decrease in measurement increase in measurement Recommend patients be collected for this test prior to administration of either drug. Alkaline Phosphatase 85 U/L 38-126 Normal (applies to non-num aleksandar results) [facility] can increase Alkaline Phosp le vels up to 2 times the normal adult value. Normal values for children and adolescents are 2 to 3 times the normal adult value. Total Protein 6.0-8.2 Normal (applies to non-numeric re sults) [facility] Albumin Level 3.4-5.0 Normal (applies to non-numeric re sults) [facility] ID Date Data Source [id number] 03/22/2020 04:56:00 PM [facility] Name Value Range Interpretation Code Description Data Liv rce(s) Supporting Document(s) Amylase 99 U/L 25-115 Normal (applies to non-numeric resul ts) [facility] ID Date Data Source [id number] 03/22/2020 04:56:00 PM [facility] Name Value Range Interpretation Code Description Data Liv rce(s) Supporting Document(s) Lipase 298 U/L 73-393 Normal (applies to non-numeric resul ts) [facility] ID Date Data Source [id number] 03/22/2020 04:31:[address] [facility] Imaging Services Department Imaging Report [address], [place] [address] %(RAD)RES..mtdd.print.filter("line") Name: RONNIE ACOSTA : 1945 Age/Sex: 75F Ordering Provider: TAURUS Meade Med Rec #: [id number] Reg Status: DEP ER Room #: Date of Service: 03/22/20 Report Number: [id number] cc:Moe Alvarez Reason, DO Send Report To: [id number] CT/CT Abdomen & Pelvis No Contras Reason [...] Date/Time: 03/22/20 1556 Transcribed Date/Time: 03/22/20 1631 Plant Physiology Teacher: WAYNE Name Value Range Interpretation Code Description Data Liv rce(s) Supporting Document(s) ID Date Data Source [id number] 03/22/2020 04:37:[address] [facility] Imaging Services Department Imaging Report [address] [place], [place] [address] %(RAD)RES..mtdd.print.filter("line") Name: RONNIE ACOSTA : 1945 Age/Sex: 75F Ordering Provider: TAURUS Meade Med Rec #: [id number] Reg Status: [facility] ER Room #: Date of Service: 03/22/20 Report Number: [id number] cc:Moe Alvarez Reason, DO; TAURUS Meade Send Report To: [id number] XRP/XR Chest Xray Portable Reason for exam: [...] REPORT SIGNATURE ON FILE Reported By: Gold Geiegr MD <Electronically signed by Gold Geiger MD> 03/23/20 1015 Dictation Date/Time: 03/22/20 1620 Transcribed Date/Time: 03/22/20 1637 Plant Physiology Teacher: WAYNE Name Value Range Interpretation Code Description Data Liv rce(s) Supporting Document(s) ID Date Data Source [id number] 03/22/2020 04:39:00 PM [facility] First test? UNKNOWNEmployed in healthca re? NOSymptomatic per CDC? YESHospitalized? NOICU? NOResident in congregated care? ex fci, [facility] NO? NO Name Value Range Interpretation Code Description Data Liv rce(s) Supporting Document(s) RP Internal Control Passed Normal (applies to non-nume veronica results) [facility] Adenovirus None Detect Normal (applies to non-numeric resu lts) [facility] Coronavirus 229E None Detect Normal (applies to non-numeri c results) [facility] Coronavirus HKU1 None Detect Normal (applies to non-numeri c results) [facility] Coronavirus NL63 None Detect Normal (applies to non-numeri c results) [facility] Coronavirus OC43 None Detect Normal (applies to non-numeri c results) [facility] SARS-CoV-2 Not Detect Normal (applies to non-numeric resul ts) [facility] Negative results do not preclude SARS-Co V-2 infection and should not be used as the sole basis for treatment or other patient management decisions. Negative results must be combined with clinical observations, patient history, and epidemiological information. Testing was performed using the [employer] Vision real-time nested multiplexed PCR Respiratory Panel 2.1 [...] Detect Normal (applies to non-n umeric results) [facility] Rhino/Enterovirus None Detect Normal (applies to non-numer ic results) [facility] Influenza A None Detect Normal (applies to non-numeric res ults) [facility] Influenza B None Detect Normal (applies to non-numeric res ults) [facility] Parainfluenza Virus 1 None Detect Normal (applies to non-n umeric results) [facility] Parainfluenza Virus 2 None Detect Normal (applies to non-n umeric results) [facility] Parainfluenza Virus 3 None Detect Normal (applies to non-n umeric results) [facility] Parainfluenza Virus 4 None Detect Normal (applies to non-n umeric results) [facility] Respiratory Syncytial Virus None Detect Norm al (applies to non-numeric results) [facility] Bordetella Parapertussis None Detect Normal (applies to non-numeric results) [facility] Bordetella Pertussis None Detect Normal (applies to non-nu meric results) [facility] Chlamydia Pneumoniae None Detect Normal (applies to non-nu meric results) [facility] Mycoplasma Pneumoniae None Detect Normal (applies to non-n umeric results) [facility] Methodology: Multiplexed PCR Refer ence Range: None detected ID Date Data Source [id number] 03/02/2020 05:07:00 PM EST [facility] Name Value Range Interpretation Code Description Data Liv rce(s) Supporting Document(s) SARS coronavirus 2 RNA [Presence] in Res piratory specimen by ZANE with probe detection [facility] This lab was ordered by [facility] a nd reported by [facility]. ID Date Data Source [id number] 01/28/2020 12:17:00 PM EST [facility] ([facility]) Name Value Range Interpretation Code Description Data Liv rce(s) Supporting Document(s) Glucose [Mass/volume] in Capillary blood by Glucometer 132 mg/dL 83-110 Above high normal [facility] ([facility]) ID Date Data Source [id number] 01/28/2020 08:14:00 AM EST [facility] ([facility]) Name Value Range Interpretation Code Description Data Liv rce(s) Supporting Document(s) Glucose [Mass/volume] in Capillary blood by Glucometer 155 mg/dL 83-110 Above high normal [facility] ([facility]) ID Date Data Source [id number] 01/21/2020 01:04:00 PM EST [facility] ([facility]) Name Value Range Interpretation Code Description Data Liv rce(s) Supporting Document(s) Glucose [Mass/volume] in Capillary blood by Glucometer 172 mg/dL 83-110 Above high normal [facility] ([facility]) ID Date Data Source [id number] 12/05/2019 12:03:00 PM EDT [facility] ([facility]) Name Value Range Interpretation Code Description Data Liv rce(s) Supporting Document(s) Hemoglobin A1c/Hemoglobin.total in Blood Laboratory test result [facility] ([facility]) Glucose [Mass/volume] in Serum or Plasma 382 [facility] ([facility]) ID Date Data Source [id number] 11/29/2019 06:27:00 AM EDT [facility] Imaging Services Department Imaging Report [address], [place] [address] %(RAD)RES..mtdd.print.filter("line") Name: RONNIE ACOSTA : 1945 Age/Sex: 74F Ordering Provider: Moe Champion DO Med Rec #: [id number] Reg Status: [facility] REF Room #: Date of Service: 11/28/19 Report Number: [id number] cc:Moe Alvarez Reason, DO Send Report To: [id number] US/US Dup Lower Ext Artery Bilat Reason [...] Dictation Date/Time: 11/28/19 1736 Transcribed Date/Time: 11/29/19 0634 Plant Physiology Teacher: VINCENZO Name Value Range Interpretation Code Description Data Liv rce(s) Supporting Document(s) Procedure Social History Code Duration Value Status Description Data Source(s ) Alcohol intake 11/03/2020 12:00:00 AM EDT Current non-d may of alcohol (finding) completed Current non-drinker of alcohol (finding) [facility] Smoking 10/27/2020 12:00:00 AM EDT Former Smoker completed Former Smoker eCW1 ([facility]) Smoking 08/18/2020 12:00:00 AM EDT Patient is a former smoker completed Patient is a former smoker KEIRA ([facility]) Alcohol intake 08/11/2020 12:00:00 AM EDT Current non-d may of alcohol (finding) completed Current non-drinker of alcohol (finding) [facility] Alcohol intake 03/17/2020 12:00:00 AM EST No completed [facility] Cigarette pack-years 03/17/2020 12:00:00 AM EST UNK completed [facility] Cigarettes smoked current (pack per day) - Reported 03/17/19 12:00:00 AM EST UNK completed [facility] Smoking 03/17/2020 12:00:00 AM EST Former smoker completed Former smoker [facility] Smoking 12/05/2019 12:00:00 AM EDT Patient is a former smoker completed Patient is a former smoker KEIRA ([facility]) Vital Signs ID Date Data Source UNK Name Value Range Interpretation Code Description Data Source(s) Heart rate 81 /min 81 /min [facility] ([facility], ) Systolic blood pressure 166 mm[Hg] 166 mm[Hg] M EDENT ([facility], ) Diastolic blood pressure 81 mm[Hg] 81 mm[Hg] [facility] ([facility], ) Body temperature 98.4 [degF] 98.4 [degF] [facility] ([facility], ) Body height 65 [in_i] 65 [in_i] [facility] ([facility], ) 5'5" [place] body weight 125 [lb_av] 125 [lb_av] MEDEN T ([facility], ) Systolic blood pressure 158 mm[Hg] 158 mm[Hg] [facility] Diastolic blood pressure 58 mm[Hg] 58 mm[Hg] [facility] Heart rate 64 /min 64 /min [facility] Respiratory rate 8 /min 8 /min [facility] Body height 165.1 cm 165.1 cm [facility] Body weight 64.864 kg 64.864 kg [facility] Body mass index (BMI) [Ratio] 23.80 kg/m2 23.80 kg/m2 [facility] Oxygen saturation in Arterial blood by Pulse oximetry 94 % 94 % [facility] Body weight 144.8 [lb_av] 144.8 [lb_av] eCW1 ([facility]) Body weight 65.68 kg 65.68 kg eCW1 ([facility]) Body height 65 [in_i] 65 [in_i] eCW1 ([facility]) Body mass index (BMI) [Ratio] 24.09 kg/m2 24.09 kg/m2 [facility] ([facility]) Heart rate 83 /min 83 /min eCW1 ([facility]) Respiratory rate 17 /min 17 /min eCW1 ([facility]) Body temperature 96.3 [degF] 96.3 [degF] eCW1 ( [facility]) Systolic blood pressure 158 mm[Hg] 158 mm[Hg] e CW1 ([facility]) Diastolic blood pressure 70 mm[Hg] 70 mm[Hg] eCW1 ([facility]) Body weight 144.00 [lb_av] 144.00 [lb_av] MEDEN T ([facility]) Body mass index (BMI) [Ratio] 24.0 kg/m2 24.0 k g/m2 [facility] ([facility]) [place] body weight 125 [lb_av] 125 [lb_av] MEDEN T ([facility]) Systolic blood pressure 130 mm[Hg] 130 mm[Hg] M EDENT ([facility]) Diastolic blood pressure 68 mm[Hg] 68 mm[Hg] [facility] ([facility]) Body height 65 [in_i] 65 [in_i] [facility] ([facility]) 5'5" Body weight 65.318 kg 65.318 kg [facility] ([facility]) Body surface area Derived from formula 1.72 m2 1.72 m2 [facility] ([facility]) Body height 65 [in_i] 65 [in_i] [facility] ([facility]) 5'5" Body weight 144.00 [lb_av] 144.00 [lb_av] [facility] T ([facility]) Body mass index (BMI) [Ratio] 24.0 kg/m2 24.0 k g/m2 [facility] [place] body weight 125 [lb_av] 125 [lb_av] MEDEN T ([facility]) Body weight 65.318 kg 65.318 kg [facility] ([facility]) Body surface area Derived from formula 1.72 m2 1.72 m2 [facility] ([facility]) Systolic blood pressure 168 mm[Hg] 168 mm[Hg] [facility] Diastolic blood pressure 88 mm[Hg] 88 mm[Hg] [facility] Heart rate 85 /min 85 /min [facility] Body height 165.1 cm 165.1 cm [facility] Body weight 64.411 kg 64.411 kg [facility] Body mass index (BMI) [Ratio] 23.63 kg/m2 23.63 kg/m2 [facility] Systolic blood pressure 120 mm[Hg] 120 mm[Hg] M EDENT ([facility], ) Diastolic blood pressure 60 mm[Hg] 60 mm[Hg] [facility] ([facility], ) Body height 65 [in_i] 65 [in_i] [facility] ([facility], ) 5'5" Body surface area Derived from formula 1.69 m2 1.69 m2 [facility] ([facility], ) Body weight 137.25 [lb_av] 137.25 [lb_av] MEDEN T ([facility], ) Body mass index (BMI) [Ratio] 22.8 kg/m2 22.8 k g/m2 [facility] ([facility], ) [place] body weight 125 [lb_av] 125 [lb_av] MED[facility] T ([facility], ) Body weight 62.257 kg 62.257 kg [facility] ([facility], ) Systolic blood pressure 140 mm[Hg] 140 mm[Hg] [facility] Diastolic blood pressure 70 mm[Hg] 70 mm[Hg] [facility] Heart rate 70 /min 70 /min [facility] Body height 165.1 cm 165.1 cm [facility] Body weight 66.225 kg 66.225 kg [facility] Body mass index (BMI) [Ratio] 24.30 kg/m2 24.30 kg/m2 [facility] Oxygen saturation in Arterial blood by Pulse oximetry 93 % 93 % [facility] [place] body weight 125 [lb_av] 125 [lb_av] MEDEN T ([facility], ) Diastolic blood pressure 60 mm[Hg] 60 mm[Hg] [facility] ) Body height 65 [in_i] 65 [in_i] [facility] ([facility]) 5'5" Body weight 151.00 [lb_av] 151.00 [lb_av] MEDEN T ([facility]) Body mass index (BMI) [Ratio] 25.1 kg/m2 25.1 k g/m2 [facility] ([facility]) Body weight 68.494 kg 68.494 kg [facility] ([facility]) Body surface area Derived from formula 1.76 m2 1.76 m2 [facility] ([facility]) Systolic blood pressure 120 mm[Hg] 120 mm[Hg] [facility] ([facility]) Systolic blood pressure 138 mm[Hg] 138 mm[Hg] [facility] ([facility]) Diastolic blood pressure 68 mm[Hg] 68 mm[Hg] [facility] ([facility]) Body height 65 [in_i] 65 [in_i] [facility] ([facility]) 5'5" Body weight 150.00 [lb_av] 150.00 [lb_av] [facility] T ([facility]) Body mass index (BMI) [Ratio] 25.0 kg/m2 25.0 k g/m2 [facility] ([facility]) [place] body weight 125 [lb_av] 125 [lb_av] [facility] T ([facility]) Body weight 68.040 kg 68.040 kg [facility] ([facility]) Body surface area Derived from formula 1.75 m2 1.75 m2 [facility] ([facility]) Body height 65 [in_i] 65 [in_i] [facility] 5'5" Body weight 157.38 [lb_av] 157.38 [lb_av] [facility] T ([facility]) Body mass index (BMI) [Ratio] 26.2 kg/m2 26.2 k g/m2 [facility] ([facility]) Oxygen saturation in Arterial blood by Pulse oximetry 9 % 9 % [facility] ([facility]) Systolic blood pressure 126 mm[Hg] 126 mm[Hg] [facility] Diastolic blood pressure 72 mm[Hg] 72 mm[Hg] [facility] ([facility]) Heart rate 74 /min 74 /min [facility] ([facility]) Systolic blood pressure 139 mm[Hg] 139 mm[Hg] M EDENT ([facility]) Diastolic blood pressure 74 mm[Hg] 74 mm[Hg] [facility] ([facility]) Heart rate 76 /min 76 /min [facility] ([facility]) Body height 65 [in_i] 65 [in_i] [facility] 5'5" Body weight 148.00 [lb_av] 148.00 [lb_av] [facility] T ([facility]) Body mass index (BMI) [Ratio] 24.6 kg/m2 24.6 k g/m2 [facility] ([facility]) [place] body weight 125 [lb_av] 125 [lb_av] [facility] T ([facility]) Body weight 67.133 kg 67.133 kg [facility] ([facility]) ID Date Data Source [id number] 06/04/2020 02:39:00 PM EDT [facility] spital Name Value Range Interpretation Code Description Data Source(s) Weight Measurement Method 8 8 [facility] 4938.354 4938.354 [facility] 1 1 [facility] Temperature 98.2 98.2 [facility] spital Respiratory Effort 14 14 [facility] Respiratory Rate 16 16 [facility] Pulse Assessment Method 4 4 [facility] Pulse Rate 75 75 [facility] pital Height 65 65 [facility] Blood Pressure 168/75 168/75 [facility] ID Date Data Source [id number] 03/22/2020 05:14:00 PM EST [facility] spital Name Value Range Interpretation Code Description Data Source(s) Weight Measurement Method 8 8 [facility] Weight 2320 2320 [facility] pital Temperature Source 7 7 [facility] Temperature 97.5 97.5 [facility] spital Respiratory Effort 1 1 [facility] Respiratory Rate 17 17 [facility] Pulse Assessment Method 4 4 [facility] Pulse Rate 72 72 [facility] pital Height 65 65 [facility] pital Blood Pressure 174/96 174/96 [facility] Weight Measurement Method 8 8 [facility] Weight 2320 2320 [facility] pital Temperature Source 7 7 [facility] Temperature 97.5 97.5 [facility] spital Respiratory Effort 1 1 [facility] Respiratory Rate 17 17 [facility] Pulse Assessment Method 4 4 [facility] Pulse Rate 80 80 [facility] pital Height 65 65 [facility] Blood Pressure 174/96 174/96 [facility] Weight Measurement Method 8 8 [facility] Weight 2320 2320 [facility] pital Temperature Source 7 7 [facility] Temperature 97.5 97.5 [facility] spital Respiratory Effort 1 1 [facility] Respiratory Rate 17 17 [facility] Pulse Assessment Method 4 4 [facility] Pulse Rate 80 80 [facility] pital Height 65 65 [facility] pital Blood Pressure 174/96 174/96 [facility] Patient Treatment Plan of Care Planned Activity Planned Date Details Description Data Source (s) Methoxy PEG-Epoetin Beta (MIRCERA IJ) 07/31/2020 12:00:00 AM EDT [facility] VITAMIN D, CHOLECALCIFEROL, PO 07/20/2020 12:00:00 AM EDT [facility] Amlodipine 5 MG Oral Tablet 03/10/2020 12:00:00 AM EST [facility] sodium chloride 0.9 % SOLN 500 mL with h eparin (porcine) 1000 UNIT/ML SOLN 1,000 Units 10/16/2019 12:00:00 AM EDT [facility] Calcium Carbonate-Vit D-Min (CALCIUM 600+D3 PLUS BOOKING MANAGER ALS) 600-800 MG-UNIT TABS 09/18/2019 12:00:00 AM EDT [facility] Labetalol hydrochloride 100 MG Oral Tablet 06/29/2019 12:00:00 AM E DT [facility] gabapentin 100 MG Oral Capsule 05/28/2019 12:00:00 AM EDT [facility] sodium chloride 0.9 % SOLN 50 mL with insulin regular 100 UNIT/ML SOLN [address] [facility] sennosides, SKILLED NURSING 8.6 MG Oral Capsule [facility] tramadol hydrochloride 50 MG Oral Tablet [facility] [facility] MENTHOL-METHYL SALICYLATE EX [facility] Aspirin 81 MG Oral Tablet [facility] POLYETHYLENE GLYCOL 3350 142 MG/ML Oral Solution [facility] Tetrahydrozoline hydrochloride 0.5 MG/ML Ophthalmic Solution [facility] 1 ML heparin sodium, porcine 1000 UNT/ML Injection [facility] Naphazoline-Pheniramine (VISINE-A OP) [facility]
[2020-12-10] MEDS ORDERED: (RENVELA) SEVELAMER **CARBONate** 800 MG TAB PO PRN (17:30)
[2020-12-10] MEDS ORDERED: hydrOXYzine 10 MG TAB PO PRN (17:30)
[2020-12-10] MEDS: HumaLOG INSULIN (NovoLOG) PER UNIT SC SCH ×2 (18:19→23:37)
[2020-12-10] MEDS ORDERED: MIRALAX *UNIT DOSE* 17GM PACKET PO PRN (20:20)
[2020-12-10] MEDS ORDERED: FLEET ENEMA PR PRN (20:20)
[2020-12-10] MEDS ORDERED: MAALOX 30 ML SUSP *UDC PO PRN (20:30)
--- NOTE | 2020-12-10 20:39 | HPEPDOC ---
General Date of Admission Dec 10, 2020 at 08:22 Date of Service: Dec 10, 2020 Chief Complaint The patient is a 75-year-old female admitted with a reason for visit of Fatigue,Nausea,Pnuemonia. Source: Patient History of Present Illness Mrs. Acosta is a 75 year old female with CAD s/p CABG and ESRD on dialysis MWF who presents with upper abdominal pain and exertional dyspnea. For the past two weeks, patient reports upper abdominal pain that radiates towards the back. Denies any recent trauma or falls. Denies diarrhea, but reports constipation. Her last BM was on Monday. She came to the ED for evaluation. Vital signs are stable and she is doing well at room air. Imagining suggested multifocal pneumonia vs CHF. Due to her poor appetite and compliance to dialysis, CHF unlikely. Patient will be placed in observation for community acquired pneumonia. Home Medications Scheduled Amlodipine Besylate (Amlodipine Besylate) 5 Mg Tablet, 5 MG PO DAILY, (Reported) Aspirin (Aspirin EC) 81 Mg Tablet.dr, 81 MG PO DAILY, (Reported) Carvedilol (Carvedilol) 12.5 Mg Tablet, 12.5 MG PO DAILY, (Reported) Hydralazine HCl (Hydralazine HCl) 25 Mg Tablet, 25 MG PO DAILY, (Reported) PRESCRIBED FOR TID DOSING, PT ONLY TAKING ONCE DAILY Ipratropium/Albuterol Sulfate (Combivent Respimat 20-100 Mcg) 4 Gm Mist.inhal, 1 PUFF INH BID, (Reported) Lidocaine/Prilocaine (Lidocaine-Prilocaine Cream) 2.5%/2.5% Cream..g., 1 APLCT TOP 3XW, (Reported) MONDAY, MONDAY AND MONDAY PRIOR TO DIALYSIS Multivitamins (Thera M Plus Tablet) 1 Each Tablet, 1 TAB PO DAILY, (Reported) Sevelamer Carbonate (Sevelamer Carbonate) 800 Mg Tablet, 800 MG PO WM, (Reported) Trazodone HCl (Trazodone HCl) 50 Mg Tablet, 25 MG PO QHS, (Reported) Ubidecarenone (Coenzyme Q10) 100 Mg Tablet, 100 MG PO DAILY, (Reported) Scheduled PRN Hydroxyzine HCl (Hydroxyzine HCl) 10 Mg Tablet, 20 MG PO QHS PRN for SLEEP, (Reported) Ibuprofen (Ibu-200) 200 Mg Tablet, 200 MG PO Q6H PRN for PAIN LEVEL 1-4, (Reported) Sevelamer Carbonate (Renvela) 800 Mg Tablet, 800 MG PO ASDIRECTED PRN for AFTER SNACKS, (Reported) Allergies Coded Allergies: Hiwlbai-Uqm-Cii Reductase Inhibitor (Verified Adverse Reaction, Unknown, PAIN, 10/05/20) PT SAYS SHE CAN TAKE PRAVASTATIN Past Medical History Medical History 1. CAD s/p CABG 2. Ischemic cardiomyopathy 3. HFrEF with EF 35% to 40% 4. 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 Hypertension 6. IDDM type 2 7. Dyslipidemia 8. Spinal stenosis s/p lumbar laminectomy L2, L3, L4 9. ESRD on dialysis MWF 10. Anemia of chronic disease 11. Bilateral bronchiectasis with calcified granulomas with mediastinal lymphadenopathy 12. Chronic pulmonary fibrosis 13. Chronic back pain 14. Debility (uses rolling walker) Surgical History 1. CABG 2. Lumbar laminectomy of L2 to L4 3. Hysterectomy 4. Fistulogram and dilations of the AVF Family History Father: Patient does not know father's PMH Mother: History of ESRD on dialysis Social History * Smoker: former Smoker Alcohol: Denies Drugs: denies A-FIB/CHADSVASC A-FIB History Current/History of A-Fib/PAF?: No Review of Systems Constitutional: Reports: Fever, Fatigue Eyes: Reports: Vision change (floaters in eye) ENT: Denies: Sore Throat Skin: Denies: Rash Pulmonary: Reports: Dyspnea, Cough Cardiovascular: Denies: Chest Pain Gastrointestinal: Reports: Abdominal Pain, Constipation, Other Symptoms (poor appetite); Denies: Nausea, Diarrhea Genitourinary: Denies: Dysuria Hematologic: Denies: Bruising Neurological: Denies: Numbness Psych: Denies: Anxiety, Depression Physical Examination General Exam: Positive: Alert, Cooperative Eye Exam: Positive: EOMI; Negative: Sclera icteric ENT Exam: Positive: Atraumatic Neck Exam: Positive: Supple Chest Exam: Positive: Clear to auscultation Heart Exam: Positive: Rate Normal, Regular Rhythm Abdomen Exam: Positive: Normal bowel sounds, Soft; Negative: Tenderness Extremity Exam: Negative: Edema Neuro Exam: Positive: Cranial Nerves 3-12 NL Psych Exam: Positive: Mental status NL, Mood NL Vital Signs Vital Signs Date Time Temp Pulse Resp B/P (MAP) Pulse Ox O2 Delivery O2 Flow Rate FiO2 12/10/20 13:38 18 12/10/20 08:21 99.0 80 149/67 (94) 95 Room Air Laboratory Data Labs 24H Laboratory Tests 2 12/10/20 11:30: Immature Granulocyte % (Auto) 0.4, Neutrophils (%) (Auto) 76.8H, Lymphocytes (%) (Auto) 11.9L, Monocytes (%) (Auto) 8.3H, Eosinophils (%) (Auto) 2.2, Basophils (%) (Auto) 0.4, Neutrophils # (Auto) 4.3, Lymphocytes # (Auto) 0.7L, Monocytes # (Auto) 0.5, Eosinophils # (Auto) 0.1, Basophils # (Auto) 0.0, Nucleated Red Blood Cells % (auto) 0.4H, Anion Gap 7L, Glomerular Filtration Rate 7.3L, Lactic Acid Level 1.4, Calcium Level 8.8, Total Bilirubin 0.5, Direct Bilirubin 0.1, Aspartate Amino Transf (AST/SGOT) 26, Alanine Aminotransferase (ALT/SGPT) 31, A lkaline Phosphatase 89, Total Creatine Kinase 112, Creatine Kinase MB 1.7, Creatine Kinase MB Relative Index 1.52, Troponin I 0.05, Total Protein 7.0, Albumin 3.2, Albumin/Globulin Ratio 0.8L, Lipase 165, Coronavirus (COVID- 19)(PCR) NEGATIVE, Influenza Type A (RT-PCR) NEGATIVE, Influenza Type B (RT-PCR) NEGATIVE, Respiratory Syncytial Virus (PCR) NEGATIVE CBC/BMP Laboratory Tests 12/10/20 11:30 Microbiology Microbiology 12/10/20 Blood Culture, Received Pending 12/10/20 Blood Culture, Received Pending Assessment/Plan Mrs. Acosta is a 75 year old female with CAD s/p CABG and ESRD on dialysis MWF who presents with upper abdominal pain and exertional dyspnea. T. Bili and liver enzymes are within normal and abdominal exam benign. Possibly dyspepsia vs constipation vs pneumonia. Add on omeprazole and PRN Mylanta. Imaging suggest multifocal pneumonia, but patient not hypoxic and does not have leukocytosis. Can consider switching to oral antibiotics tomorrow if patient is feeling better. Plan / VTE VTE Prophylaxis Ordered?: Yes Plan Plan 1. Community acquired pneumonia -Imaging suggest multifocal pneumonia -Patient not hypoxic. No leukocytosis -Ceftriaxone and doxycycline day 1 -Can consider switching to oral medication tomorrow 2. Abdominal pain -Possibly secondary to dyspepsia vs constipation -Patient has poor appetite -Added on omeprazole and PRN Mylanta -Added on Colace with PRN Miralax and PRN fleet enema 3. ESRD on dialysis MWF -Patient is compliant -Nephrology notified 4. CAD s/p CABG -No active chest pain -Continue aspirin and Coreg 5. Hypertension -Continue Coreg, amlodipine, and hydralazine 6. Diabetes mellitus type 2 -In 2010, patient had HBa1c of 7.5, most recent (05/13/20) is 6.4 -Not on diabetic medically at this time. Most likely diet controlled -Sliding scale insulin and carbohydrate consistent diet with renal diet 7. DVT ppx -SCD and TEDs Disposition: Pending clinical improvement HADLEY HUANG DO Dec 10, 2020 20:39
[2020-12-10] MEDS: DOCUSATE SODIUM 100MG CAPSULE PO SCH (21:42)
[2020-12-10] MEDS: OMEPRAZOLE 20 MG CAP PO SCH (21:42)
[2020-12-10] MEDS: traZODone 25MG PER 1/2 TABLET PO SCH (21:43)
[2020-12-10] MEDS: COMBIVENT RESPIMAT 100-20MCG INHALER 4GM INH SCH (21:43)
[2020-12-10] MEDS: IBUPROFEN 200MG TAB PO PRN (21:43)
[2020-12-10 22:47] VITALS: BP 153/73
[2020-12-11 05:27] LABS: HEMATOCRIT 29.9 % (36.0-47.0); HEMOGLOBIN 8.8 g/dl (12.0-15.5); MEAN CORPUSCULAR HEMOGLOBIN 27.3 pg (27.0-33.0); MEAN CORPUSCULAR HGB CONC 29.4 g/dl (32.0-36.5); MEAN CORPUSCULAR VOLUME 92.9 fl (80.0-96.0); PLATELET COUNT, AUTOMATED 130 10^3/uL (150-450); RED BLOOD COUNT 3.22 10^6/uL (4.00-5.40); WHITE BLOOD COUNT 4.9 10^3/uL (4.0-10.0)
[2020-12-11 05:46] LABS: CALCIUM LEVEL 8.8 MG/DL (8.8-10.2); CREATININE FOR GFR 7.11 MG/DL (0.55-1.30); MAGNESIUM LEVEL 2.1 MG/DL (1.8-2.4); POTASSIUM SERUM 4.7 MEQ/L (3.5-5.1)
[2020-12-11 05:51] VITALS: BP 129/59
[2020-12-11] MEDS ORDERED: LIDOCAINE 1% SDV 5ML VIAL SC PRN (06:00)
[2020-12-11] MEDS ORDERED: CEFD1CAP8 PO (07:36)
[2020-12-11] MEDS ORDERED: DOXY-350 PO (07:36)
--- NOTE | 2020-12-11 08:02 | ECGEPIP ---
[facility] - ED Test Date: 2020-12-10 Pat Name: RONNIE BRAN Department: Room: - Gender: Female Operation Supervisor: JERRYCARYL : 1945 Requested By: LIO Mcclellan Order Number: [id number] Reading MD: Arden Ly Measurements Intervals Tracy Rate: 78 P: 65 [place]: 180 QRS: -4 QRSD: 100 T: 113 QT: 434 QTc: 494 Interpretive Statements Normal sinus rhythm Minimal voltage criteria for LVH, may be normal variant ( Shevlin product ) Anterior infarct , age undetermined SIMILAR TO 10/08/20 Electronically Signed on 12-11-2020 8:02:30 EDT by Arden Ly
[2020-12-11] MEDS: COMBIVENT RESPIMAT 100-20MCG INHALER 4GM INH SCH ×2 (08:24→20:00)
[2020-12-11] MEDS: ASPIRIN 81MG ENTERIC TABLET PO SCH (08:30)
[2020-12-11] MEDS: (RENVELA) SEVELAMER **CARBONate** 800 MG TAB PO SCH ×3 (08:30→18:47)
[2020-12-11] MEDS: HumaLOG INSULIN (NovoLOG) PER UNIT SC SCH ×4 (08:30→20:38)
[2020-12-11] MEDS: CO-ENZYME Q10 50 MG CAP PO SCH (08:30)
[2020-12-11] MEDS: DOCUSATE SODIUM 100MG CAPSULE PO SCH ×2 (08:31→20:38)
[2020-12-11] MEDS: MULTIVITAMINS/MINERALS THERAP 1 TAB PO SCH (08:31)
[2020-12-11] MEDS: **hydrALAZINE HCL** 25 MG TAB PO SCH (08:33)
[2020-12-11] MEDS: CARVedilol 12.5 MG TAB PO SCH (08:33)
[2020-12-11] MEDS: amLODIPine 5 MG TAB PO SCH (08:33)
--- NOTE | 2020-12-11 12:40 | IPN ---
PROGRESS NOTE DATE: 12/11/2020 SUBJECTIVE: Patient was seen and examined at the bedside. Chart has been reviewed. She says she is not feeling well, felling very fatigued still with cough productive of white sputum without documented fever, no nausea, vomiting, chest pain, pressure or tightness, lightheadedness or dizziness. Denies any diarrhea. OBJECTIVE: Vital signs: Temperature 98, pulse 84, respiratory rate 16, blood pressure 160/81, 99% on room air. General: Awake, alert, oriented to person, place and time, answering questions appropriately, no distress or conversational dyspnea. Neck: No JVD or thyromegaly. Lungs: Diminished, no crackles or rales. Heart: S1 and S2 sinus rhythm. Abdomen: Soft, nontender, nondistended, obese abdomen, positive bowel sounds times 4 quadrants. Extremities: No cyanosis or clubbing. LABORATORY DATA/MICROBIOLOGY/RADIOLOGY STUDIES: Reviewed. ASSESSMENT AND PLAN: 75-year-old admitted on 12/10/2020 with complaints of fatigue and exertional dyspnea, abdominal pain radiating to the back was found to have multifocal pneumonia versus CHF admitted for antibiotics and dialysis. IMPRESSION: 1. Fluid overload with history of end-stage renal disease on maintenance dialysis Monday, Monday, Monday: Patient will be dialyzed today. Nephrology has been consulted. 2. Multifocal pneumonia: Currently on ceftriaxone and doxycycline, but may be transitioned to cefdinir and doxycycline as outpatient. 3. Abdominal pain most likely due to dyspepsia or constipation: She has had a poor appetite. Currently on Prilosec, Mylanta as needed and bowel regimen. 4. End-stage renal disease: On maintenance dialysis. Nephrology has been consulted. 5. History of CAD/CABG, congestive heart failure: Managed by dialysis. Resumed on her home medications aspirin and Coreg. 6. Hypertension: Controlled on Coreg, Norvasc and hydralazine. 7. Type-2 diabetes diet controlled: On consistent carbohydrate diet, insulin and sliding scale with coverage. 8. DVT prophylaxis: With SCDs. 9. Disposition: Await PT/OT, pending clinical improvement.
[2020-12-11 15:00] VITALS: BP 122/42
[2020-12-11] MEDS: cefTRIAXone SOD 1 GM in D5W MINI-BAG PLUS 50 ML IV SCH (16:13)
[2020-12-11] MEDS: traZODone 25MG PER 1/2 TABLET PO SCH (20:38)
[2020-12-11] MEDS: DOXYCYCLINE HYCLATE 100 MG in D5W MINI-BAG PLUS 100 ML IV SCH (20:38)
[2020-12-11] MEDS: OMEPRAZOLE 20 MG CAP PO SCH (20:38)
[2020-12-11] MEDS: IBUPROFEN 200MG TAB PO PRN (20:39)
[2020-12-11 22:00] VITALS: BP 133/63
[2020-12-12 06:00] VITALS: BP 152/79
[2020-12-12 06:33] LABS: HEMATOCRIT 32.4 % (36.0-47.0); HEMOGLOBIN 9.5 g/dl (12.0-15.5); MEAN CORPUSCULAR HEMOGLOBIN 27.6 pg (27.0-33.0); MEAN CORPUSCULAR HGB CONC 29.3 g/dl (32.0-36.5); MEAN CORPUSCULAR VOLUME 94.2 fl (80.0-96.0); PLATELET COUNT, AUTOMATED 154 10^3/uL (150-450); RED BLOOD COUNT 3.44 10^6/uL (4.00-5.40); WHITE BLOOD COUNT 5.3 10^3/uL (4.0-10.0)
[2020-12-12 06:50] LABS: CALCIUM LEVEL 8.8 MG/DL (8.8-10.2); CREATININE FOR GFR 5.71 MG/DL (0.55-1.30); GLOMERULAR FILTRATION RATE 7.7 (>39); POTASSIUM SERUM 4.3 MEQ/L (3.5-5.1)
[2020-12-12] MEDS: COMBIVENT RESPIMAT 100-20MCG INHALER 4GM INH SCH ×2 (07:53→20:23)
[2020-12-12] MEDS: DOCUSATE SODIUM 100MG CAPSULE PO SCH ×2 (07:57→20:27)
[2020-12-12] MEDS: HumaLOG INSULIN (NovoLOG) PER UNIT SC SCH ×4 (07:57→20:37)
[2020-12-12] MEDS: (RENVELA) SEVELAMER **CARBONate** 800 MG TAB PO SCH ×3 (07:58→18:58)
[2020-12-12] MEDS: CO-ENZYME Q10 50 MG CAP PO SCH (07:58)
[2020-12-12] MEDS: ASPIRIN 81MG ENTERIC TABLET PO SCH (07:58)
[2020-12-12] MEDS: MULTIVITAMINS/MINERALS THERAP 1 TAB PO SCH (07:58)
[2020-12-12] MEDS ORDERED: ONDANSETRON 4MG/2ML VIAL IV ONE (08:00)
[2020-12-12] MEDS ORDERED: FLEET OIL RETENTION ENEMA PR ONE (08:00)
[2020-12-12] MEDS: **hydrALAZINE HCL** 25 MG TAB PO SCH (08:02)
[2020-12-12] MEDS: CARVedilol 12.5 MG TAB PO SCH (08:02)
[2020-12-12] MEDS: amLODIPine 5 MG TAB PO SCH (08:02)
[2020-12-12] MEDS: DOXYCYCLINE HYCLATE 100 MG in D5W MINI-BAG PLUS 100 ML IV SCH ×2 (08:03→20:27)
[2020-12-12] MEDS: LIDOCAINE 5% (LIDODERM) PATCH TD SCH ×2 (08:04→08:08)
--- NOTE | 2020-12-12 08:51 | REP ---
INDICATION: ABD PAIN NAUSEA COMPARISON: None. TECHNIQUE: Upright view of the chest with supine and upright views of the abdomen and pelvis. FINDINGS: Frontal upright view of the chest again demonstrates cardiomegaly along with perihilar and lower lobe opacities and possible left effusion. No free air below diaphragm to suspect pneumoperitoneum. Supine and upright views of the abdomen and pelvis demonstrate nonspecific bowel gas pattern without obstruction or perforation. No organomegaly. No abnormal calcifications. Skeletal structures normal for age. IMPRESSION: Nonspecific bowel gas pattern. Cardiomegaly with perihilar opacities and suspected left effusion unchanged suggesting multifocal pneumonia, COVID-19 pulmonary disease, and CHF. <Electronically signed by Joni Dumont > 12/12/20 [id number]
--- NOTE | 2020-12-12 10:21 | IPN ---
PROGRESS NOTE DATE: 12/12/2020 SUBJECTIVE: The patient complains of abdominal pain across her abdomen from the epigastric area to bilateral blanks. She denies any diarrhea, fever or chills but complains of chronic constipation which she states does not respond to oral medications and requesting suppositories. The patient has some nausea without vomiting this morning. No shortness of breath, PND or orthopnea, afebrile, no chills. The patient also complains of left shoulder pain. OBJECTIVE: PHYSICAL EXAMINATION: VITAL SIGNS: Temperature 98.1, pulse 80, respiratory rate 16, blood pressure 152/79, oxygen saturation 99% on room air. GENERAL APPEARANCE: Awake, alert, oriented to person, place and time, sitting at the bedside, leaning on the left. She is in no distress, able to speak in full sentences. HEENT: The patient has no use of respiratory accessory muscles, pallor or icterus. NECK: No JVD or thyromegaly. LUNGS: Clear to auscultation. No wheezes or rales. HEART: S1, S2, sinus rhythm. ABDOMEN: Soft, nontender, nondistended. Positive bowel sounds in four quadrants. No CVA tenderness. EXTREMITIES: No clubbing, cyanosis, or any pitting edema. Left shoulder tenderness, no effusion. Range of motion is limited secondary to pain. LABORATORY DATA: Reviewed. IMAGING STUDIES: Reviewed. MICROBIOLOGY: Reviewed. ASSESSMENT: This is a 75-year-old female with end-stage renal disease, on managed dialysis Monday, Monday, Monday, admitted due to complaints of fatigue and exertional dyspnea and abdominal pain radiating to the back, found to have multifocal pneumonia versus congestive heart failure, admitted for antibiotics and dialysis. IMPRESSION: 1. Fluid overload with history of end-stage renal disease, on managed dialysis Monday, Monday, Monday. 2. Multifocal pneumonia. 3. Constipation with abdominal pain versus dyspepsia. 4. Left shoulder pain. 5. End-stage renal disease on maintenance dialysis Monday, Monday, Monday. 6. History of coronary artery disease, CABG, congestive heart failure. 7. Hypertension. 8. Type 2 diabetes. PLAN: 1. The patient appears to be euvolemic after having dialysis yesterday. She is continued on antibiotics with Ceftriaxone and Doxycycline. 2. Blood pressure is controlled on Hydralazine and Coreg, Norvasc. 3. The patient complains of abdominal pain. Therefore we will obtain a KUB. 4. She states that oral medications do not help, therefore she will be given Dulcolax suppository, Fleet's enema, Lidocaine patch for her left shoulder. 5. Activity as tolerated and PT has been consulted. 6. Await sputum cultures.
--- NOTE | 2020-12-12 10:21 | CR ---
CONSULTATION DATE: 12/11/2020 REQUESTING PHYSICIAN: Dr. Silvina Bassett CONSULTING PHYSICIAN: Dr. Shamika Kiran REASON FOR CONSULTATION: Management of end-stage renal disease. CHIEF COMPLAINT: Patient presented to the hospital on 12/10/2020 with weakness and shortness of breath and inability to walk. HISTORY OF PRESENT ILLNESS: Bree Acosta is a 75-year-old female with a past medical history of end-stage renal disease on hemodialysis every Monday, Monday, Monday, and known to nephrology service for multiple previous hospitalizations and from outpatient dialysis center. She presented to the hospital with upper abdominal pain and dyspnea on exertion, nausea, decreased appetite. She got the chest x-ray done in the Emergency Room, which showed possible multifocal pneumonia versus CHF. She was admitted under the hospitalist service. Nephrology service was called for further help in the management of this patient. I arranged patient's hemodialysis to be done early in the morning and I saw and evaluated the patient today morning at the bedside during hemodialysis. She was tolerating the hemodialysis. PAST MEDICAL HISTORY: Coronary artery disease; status post CABG, ischemic cardiomyopathy, heart failure with reduced ejection fraction; LV ejection fraction of around 35-40%, CVA with residual right-sided hemiparesis and slurred speech, hypertension, insulin dependent diabetic, hyperlipidemia, spinal stenosis, anemia and chronic kidney disease, bronchiectasis and calcified granulomas, pulmonary fibrosis. PAST SURGICAL HISTORY: Status post coronary artery bypass grafting, lumbar laminectomy, hysterectomy, placement of AV fistula. FAMILY HISTORY: End-stage renal disease in father, but mother was on dialysis. SOCIAL HISTORY: Patient denies any smoking, illicit drug abuse or alcohol abuse. ALLERGIES: She is allergic to statins. REVIEW OF SYSTEMS: CONSTITUTIONAL: She reports feeling weak and tired. EYES: She denies any blurry vision, double vision. She does report poor vision. ENT: She denies any dysphagia, odynophagia. CARDIOVASCULAR: She denies any chest pain or palpitations. RESPIRATORY: She reports shortness of breath. GI: She reports decreased p.o. intake. GENITOURINARY: Reports a decreased urine output. MUSCULOSKELETAL: She reports muscle weakness. SKIN: Denies any rashes or ulcers. WELT CUTTER: Reports history of stroke. All other review of systems is negative. PHYSICAL EXAMINATION: GENERAL: Patient is awake, alert, oriented x3. VITAL SIGNS: Temperature 98 degrees Fahrenheit, blood pressure 129/59, pulse 75, respiratory rate 16, and saturating 99% on room air. HEAD/NECK: Pupils equally round and reactive to light. Mucous membranes are moist. She has periorbital puffiness. Neck is supple. There is no JVD. CARDIOVASCULAR: S1, S2, regular rate. No edema of the bilateral lower extremities. RESPIRATORY: Decreased breath sounds at bases with inspiratory crackles bilaterally. ABDOMEN: Soft, positive bowel sounds, nontender. No organomegaly. MUSCULOSKELETAL: No clubbing or cyanosis. Pulses are 2+. WELT CUTTER: Mild right-sided weakness, otherwise patient is able to communicate and moves extremities. LAB REVIEW: CBC showed WBC 4.9, hemoglobin 8.8, platelets 130,000. BMP showed sodium 139, potassium 4.7, chloride 100, bicarb 33, BUN 32, creatinine 7.1. IMAGING: Patient's chest x-ray was done yesterday, which showed multifocal pneumonia versus CHF. CURRENT INPATIENT MEDICATIONS: Patient's medications include Rocephin 1 gram I.V. every 24 hours, Doxycycline 100 mg I.V. every 12 hours, Combivent inhaler, Amlodipine 5 mg p.o. daily, aspirin 81 mg p.o. daily, Coreg 12.5 mg p.o. daily, Co-Q10, Colace 100 mg p.o. twice a day, Hydralazine 25 mg p.o. daily, insulin Lispro sliding scale, multivitamin daily, Prilosec 20 mg q.h.s., Miralax one packet p.o. daily p.r.n., Renvela 800 mg p.o. with meals, Trazodone 25 mg p.o. q.h.s. IMPRESSION AND PLAN: 1. End-stage renal disease: Patient was being dialyzed when I saw her, ultrafiltration goal is 2 liters. 2. Pulmonary infiltrates: Most likely congestive heart failure, patient has history of severe cardiomyopathy. She noncompliant with medications. Two liters of fluid will be removed today. If she is still short of breath, further dialysis and fluid removal will be done tomorrow morning. It is okay to empirically cover the patient with antibiotics. 3. Anemia and end-stage renal disease: Hemoglobin is suboptimal. I am going to start the patient on Aranesp and Venofer with dialysis. 4. Hypertension: Blood pressure is controlled. Continue current dose of Coreg, Amlodipine and Hydralazine. Thank you for involving me in the care of this patient. I shall be happy to follow the patient along with you tomorrow morning.
[2020-12-12] MEDS: BISACODYL 10 MG SUPP PR SCH ×3 (11:25→20:27)
--- NOTE | 2020-12-12 12:59 | IPN ---
PROGRESS NOTE DATE: 12/12/2020 SUBJECTIVE: Bree is seen and examined this morning at the bedside. She has no complaints. She wants me to change her diet order so she can order foods that she likes. She reports her breathing feels better. She has been afebrile and hemodynamically stable. Denies any shortness of breath at rest. Denies cough. VITAL SIGNS: Temperature 98.1, pulse 80, respiratory rate 16, blood pressure 152/79, saturating 99% on room air. Intake yesterday was 755. Dialysis yesterday removed 2 liters. Weight in the bed scale today is 67.4 kg. GENERAL: Patient seen awake, alert, oriented, comfortable, lying in bed with the head of the bed elevated, elderly female in no distress. Extraocular muscles are intact. Tongue is moist. Neck is supple. There is no jugular venous distention. There is a nasal cannula hanging around her neck, not in use. LUNGS: Clear to auscultation. No crackle or rales. HEART: Sounds are regular, S1, S2. Peripheral pulses are palpable. There is no peripheral edema. There is no dependent edema. ABDOMEN: Soft, nontender, and nondistended. EXTREMITIES: Show no clubbing, cyanosis, or edema. NEUROLOGIC: She is oriented times three, interactive and at baseline mentation. LABORATORY DATA: White count 5.3, hemoglobin 9.5, platelets 154. Sodium 137, potassium 4.3, bicarbonate 25, BUN 5.7, magnesium 2.0. Microbiology: Blood cultures with no growth for 24 hours times two sets. Abdominal x-ray done today shows cardiomegaly and perihilar opacities but nonspecific bowel-gas pattern. INPATIENT MEDICATIONS: Reviewed by myself. She continues on intravenous (IV) ceftriaxone, IV doxycycline, Combivent, amlodipine, aspirin, carvedilol, docusate, hydralazine, insulin, omeprazole, Sevelamer, and trazodone. There are no medication changes noted over the past 24 hours with the exception of addition of lidocaine patch and Dulcolax suppository problem. 1. End-stage renal disease, on hemodialysis on a Monday, Monday, Monday schedule. Patient was dialyzed yesterday. Two liters of fluid was removed. She is not requiring any supplemental oxygen at this time. Her electrolytes are stable. Fistula is in good use. Next dialysis will be on Monday. 2. Multifocal pneumonia. Antibiotics managed by the primary service. She is on ceftriaxone and doxycycline. She is symptomatically improving. She is saturating well on room air. There is no leukocytosis. Her blood cultures were negative. Her sputum cultures are pending. 3. Hypertension. Blood pressures are nicely controlled on current regimen of hydralazine, carvedilol, and amlodipine, and I am not making any changes. 4. Anemia of chronic renal failure. Goal hemoglobin is 10-11. Aranesp is ordered with dialysis, and we will check iron panel as well. 5. Combined systolic and diastolic congestive heart failure. Echocardiogram 04/18/2020 reviewed with left ventricular ejection fraction (LVEF) of 40% along with grade 2 diastolic dysfunction. Volume status is principally regulated via hemodialysis. Two liters of fluid was removed yesterday. She appeared euvolemic on exam, and I would plan to dialyze her again on Monday.
[2020-12-12] MEDS: cefTRIAXone SOD 1 GM in D5W MINI-BAG PLUS 50 ML IV SCH (13:17)
[2020-12-12 14:00] VITALS: BP_SYST 139; BP_SYST 149; BP_DIAS 68; BP_DIAS 90
[2020-12-12] MEDS: traZODone 25MG PER 1/2 TABLET PO SCH (20:27)
[2020-12-12] MEDS: OMEPRAZOLE 20 MG CAP PO SCH (20:27)
[2020-12-12] MEDS: **NOTE PATIENT COMMENT** MISC XX SCH (20:28)
[2020-12-12 22:00] VITALS: BP 156/84
[2020-12-13] MEDS: IBUPROFEN 200MG TAB PO PRN ×2 (03:53→18:57)
[2020-12-13 06:00] VITALS: BP 152/82
[2020-12-13 06:32] LABS: HEMATOCRIT 31.2 % (36.0-47.0); HEMOGLOBIN 9.4 g/dl (12.0-15.5); MEAN CORPUSCULAR HEMOGLOBIN 27.7 pg (27.0-33.0); MEAN CORPUSCULAR HGB CONC 30.1 g/dl (32.0-36.5); PLATELET COUNT, AUTOMATED 127 10^3/uL (150-450); RED BLOOD COUNT 3.39 10^6/uL (4.00-5.40); WHITE BLOOD COUNT 5.4 10^3/uL (4.0-10.0)
[2020-12-13 06:48] LABS: CALCIUM LEVEL 8.6 MG/DL (8.8-10.2); CREATININE FOR GFR 7.57 MG/DL (0.55-1.30); GLOMERULAR FILTRATION RATE 5.6 (>39); MAGNESIUM LEVEL 1.8 MG/DL (1.8-2.4); POTASSIUM SERUM 4.5 MEQ/L (3.5-5.1)
[2020-12-13 06:57] LABS: PERCENT SATURATION 27.1 % (13.2-45.0)
[2020-12-13] MEDS: COMBIVENT RESPIMAT 100-20MCG INHALER 4GM INH SCH ×2 (07:51→19:26)
[2020-12-13] MEDS: BISACODYL 10 MG SUPP PR SCH ×3 (09:00→21:06)
[2020-12-13] MEDS: DOCUSATE SODIUM 100MG CAPSULE PO SCH ×2 (09:02→21:06)
[2020-12-13] MEDS: LIDOCAINE 5% (LIDODERM) PATCH TD SCH (09:02)
[2020-12-13] MEDS: HumaLOG INSULIN (NovoLOG) PER UNIT SC SCH ×4 (09:02→20:36)
[2020-12-13] MEDS: DOXYCYCLINE HYCLATE 100 MG in D5W MINI-BAG PLUS 100 ML IV SCH (09:02)
[2020-12-13] MEDS: CO-ENZYME Q10 50 MG CAP PO SCH (09:02)
[2020-12-13] MEDS: ASPIRIN 81MG ENTERIC TABLET PO SCH (09:03)
[2020-12-13] MEDS: amLODIPine 5 MG TAB PO SCH (09:04)
[2020-12-13] MEDS: (RENVELA) SEVELAMER **CARBONate** 800 MG TAB PO SCH ×3 (09:04→18:54)
[2020-12-13] MEDS: MULTIVITAMINS/MINERALS THERAP 1 TAB PO SCH (09:05)
[2020-12-13] MEDS: CARVedilol 12.5 MG TAB PO SCH (09:05)
[2020-12-13] MEDS: **hydrALAZINE HCL** 25 MG TAB PO SCH ×2 (09:05→21:06)
--- NOTE | 2020-12-13 12:48 | IPNPDOC ---
Date Seen The patient was seen on 12/13/20. Progress Note SUBJECTIVE: c/o weakness. 1-2 more sessions per physical therapy. no f/c. decreased cough. no n/v/d. abd pain improved. tolerating her diet. OBJECTIVE: PHYSICAL EXAMINATION: VITAL SIGNS: see below GENERAL APPEARANCE:eating her breakfast at the bedside w/o distress. HEENT: moist mm. no thyromegaly or LAD. keloid on neck NECK: No JVD or thyromegaly. LUNGS: Clear to auscultation. No wheezes or rales. HEART: S1, S2, sinus rhythm. ABDOMEN: Soft, nontender, nondistended. Positive bowel sounds in four quadrants. No CVA tenderness. EXTREMITIES: No clubbing, cyanosis, or any pitting edema. Left shoulder tenderness, no effusion. Range of motion is limited secondary to pain. LABORATORY DATA: Reviewed. IMAGING STUDIES: Reviewed. MICROBIOLOGY: Reviewed. ASSESSMENT: This is a 75-year-old female with end-stage renal disease, on managed dialysis Monday, Monday, Monday, admitted due to complaints of fatigue and exertional dyspnea and abdominal pain radiating to the back, found to have multifocal pneumonia versus congestive heart failure, admitted for antibiotics and dialysis. IMPRESSION: 1. Fluid overload with history of end-stage renal disease, on managed dialysis Monday, Monday, Monday. 2. Multifocal pneumonia. 3. Constipation with abdominal pain versus dyspepsia. 4. Left shoulder pain. 5. End-stage renal disease on maintenance dialysis Monday, Monday, Monday. 6. History of coronary artery disease, CABG, congestive heart failure. 7. Hypertension. 8. Type 2 diabetes. PLAN: clinically improved, and appears euvolemic. stable to dc on po abx. pt/ot consulted with 1-2 more sessions. may dc in am after dialysis. continue all present meds. VS, I&O, 24H, Fishbone Vital Signs/I&O Vital Signs Date Time Temp Pulse Resp B/P (MAP) Pulse Ox O2 Delivery O2 Flow Rate FiO2 12/13/20 09:05 96 12/13/20 09:04 179/92 12/13/20 06:00 97.9 19 100 Nasal Cannula 2.0 I&O- Last 24 Hours up to 6 AM 12/13/20 06:00 Intake Total 850 ml Balance 850 ml Laboratory Data 24H LABS Laboratory Tests 2 12/12/20 16:27: Bedside Glucose (Misc Panel) 168H 12/12/20 20:25: Bedside Glucose (Misc Panel) 270H 12/13/20 05:30: Nucleated Red Blood Cells % (auto) 0.4H, Anion Gap 8, Glomerular Filtration Rate 5.6L, Calcium Level 8.6L, Magnesium Level 1.8, Iron Level 42L, Total Iron Binding Capacity 155L, Transferrin % Saturation 27.1, Ferritin 1577H 12/13/20 11:34: Bedside Glucose (Misc Panel) 166H CBC/BMP Laboratory Tests 12/13/20 05:30 Microbiology Microbiology 12/10/20 Blood Culture - Preliminary, Resulted No Growth after 48 hours. All Specime... 12/10/20 Blood Culture - Preliminary, Resulted No Growth after 48 hours. All Specime... JOY CHANEY MD Dec 13, 2020 12:48
[2020-12-13] MEDS: cefTRIAXone SOD 1 GM in D5W MINI-BAG PLUS 50 ML IV SCH ×2 (13:05→14:47)
[2020-12-13 14:00] VITALS: BP 163/79
--- NOTE | 2020-12-13 15:17 | IPN ---
NEPHROLOGY PROGRESS NOTE DATE: 12/13/2020 SUBJECTIVE: Bree is seen and examined this morning at the bedside. She complains of chills and feeling cold. She has been afebrile and hemodynamically stable, saturating 100% on room air. She otherwise has no complaints. PHYSICAL EXAMINATION: VITAL SIGNS: Temperature 97.9, pulse 90, respiratory rate 19, blood pressure 152/82, saturating 100% on room air. INTAKE AND OUTPUT: Intake yesterday was 850. Weight in the bed scale today is 69.2 kg. GENERAL: Patient is seen lying in bed, awake, alert, oriented, covered in blankets, in no distress. HEENT: Extraocular muscles are intact. Tongue is moist. NECK: Supple. Jugular veins are not elevated. There is no jugular venous distention. HEART SOUNDS: Regular. S1, S2. There is no leg edema. LUNGS: Symmetric air entry bilaterally. No crackle or rale. ABDOMEN: Soft and nontender. EXTREMITIES: No clubbing, cyanosis or edema. There is a fistula in the arm, which is patent with thrill and bruit. NEUROLOGIC: She is oriented times three, interactive, conversational, at baseline mentation. LABORATORY STUDIES: White count 5.4, hemoglobin 9.4, platelets 127. Sodium 132, potassium 4.5, bicarbonate 21, BUN 43, magnesium 1.8. Iron 42, transferrin saturation 27%, ferritin 1500. Blood cultures: No growth for 48 hours times two sets. INPATIENT MEDICATIONS: Reviewed by myself. She continues on intravenous (IV) ceftriaxone and IV doxycycline. I note she was given Dulcolax suppository yesterday. Her other medications are unchanged as compared to yesterday. PROBLEMS: 1. End-stage renal disease on hemodialysis on a Monday, Monday, Monday schedule. Patient will be dialyzed tomorrow. We will remove 2-3 liters as tolerated by her hemodynamics. Her electrolytes are acceptable. She is not requiring any supplemental oxygen at this time. 2. Multifocal pneumonia. Antibiotics managed by primary service. There is no white count. She is afebrile. She is on ceftriaxone and doxycycline. She denies cough. She is symptomatically improving. She is saturating well on room air. Her blood cultures were negative. Her sputum cultures are pending. 3. Hypertension. Blood pressures are a little bit high today, but I am not making any changes to the current regimen of hydralazine, amlodipine and carvedilol. We will see how she does with dialysis tomorrow and fluid removal. Her hydralazine can be increased to twice a day dosing, as I see she is only taking it once daily. 4. Anemia of chronic renal failure. Hemoglobin is 9.4 on the latest labs. She is ordered for Aranesp on dialysis tomorrow. She will also receive one dose of Venofer. Goal hemoglobin is 10-11. 5. Combined systolic and diastolic congestive heart failure. Echocardiogram March 2020 with left ventricular ejection fraction of 40% along with grade 2 diastolic dysfunction. Volume status is principally regulated by hemodialysis and plan is to remove 2-3 liters as tolerated by hemodynamics tomorrow. 6. Hypervolemic hyponatremia. Sodium on the latest labs is 132 and it will improve with dialysis and fluid removal tomorrow. She is on a moderate fluid restriction.
[2020-12-13] MEDS ORDERED: CEFDINIR 300 MG CAP (OMNICEF) PO ONE (16:00)
[2020-12-13] MEDS: OMEPRAZOLE 20 MG CAP PO SCH (21:06)
[2020-12-13] MEDS: traZODone 25MG PER 1/2 TABLET PO SCH (21:06)
[2020-12-13] MEDS: **NOTE PATIENT COMMENT** MISC XX SCH (21:06)
[2020-12-13] MEDS: DOXYCYCLINE HYCLATE 100MG TABLET PO SCH (21:06)
[2020-12-13 22:00] VITALS: BP 168/84
[2020-12-14 06:00] VITALS: BP 159/90
[2020-12-14 06:06] LABS: HEMATOCRIT 30.4 % (36.0-47.0); HEMOGLOBIN 9.2 g/dl (12.0-15.5); MEAN CORPUSCULAR HEMOGLOBIN 27.5 pg (27.0-33.0); MEAN CORPUSCULAR HGB CONC 30.3 g/dl (32.0-36.5); PLATELET COUNT, AUTOMATED 134 10^3/uL (150-450); RED BLOOD COUNT 3.34 10^6/uL (4.00-5.40)
[2020-12-14] MEDS: CO-ENZYME Q10 50 MG CAP PO SCH (06:14)
[2020-12-14] MEDS: MULTIVITAMINS/MINERALS THERAP 1 TAB PO SCH (06:14)
[2020-12-14] MEDS: ASPIRIN 81MG ENTERIC TABLET PO SCH (06:15)
[2020-12-14] MEDS: DOXYCYCLINE HYCLATE 100MG TABLET PO SCH (06:15)
[2020-12-14] MEDS: DOCUSATE SODIUM 100MG CAPSULE PO SCH (06:15)
[2020-12-14] MEDS: amLODIPine 5 MG TAB PO SCH (06:17)
[2020-12-14] MEDS: **hydrALAZINE HCL** 25 MG TAB PO SCH (06:18)
[2020-12-14] MEDS: CARVedilol 12.5 MG TAB PO SCH (06:18)
[2020-12-14] MEDS: IBUPROFEN 200MG TAB PO PRN (06:26)
[2020-12-14 06:32] LABS: CALCIUM LEVEL 8.4 MG/DL (8.8-10.2); CREATININE FOR GFR 9.69 MG/DL (0.55-1.30); GLOMERULAR FILTRATION RATE 4.2 (>39); MAGNESIUM LEVEL 1.9 MG/DL (1.8-2.4); POTASSIUM SERUM 4.9 MEQ/L (3.5-5.1)
[2020-12-14] MEDS ORDERED: LIDOCAINE 1% SDV 5ML VIAL SC PRN (06:55)
[2020-12-14] MEDS ORDERED: SODIUM CHLORIDE 0.9% 1000ML IV PRN (06:55)
[2020-12-14] MEDS: COMBIVENT RESPIMAT 100-20MCG INHALER 4GM INH SCH (06:58)
[2020-12-14] MEDS: LIDOCAINE 5% (LIDODERM) PATCH TD SCH (08:23)
[2020-12-14] MEDS: SENNA 8.6 MG TAB (SENOKOT) PO SCH (08:24)
[2020-12-14] MEDS: HumaLOG INSULIN (NovoLOG) PER UNIT SC SCH ×3 (08:24→17:30)
[2020-12-14] MEDS: (RENVELA) SEVELAMER **CARBONate** 800 MG TAB PO SCH ×3 (08:24→18:00)
[2020-12-14] MEDS: BISACODYL 10 MG SUPP PR SCH ×3 (08:25→23:04)
[2020-12-14] MEDS: DARBEPOETIN 100 MCG/0.5 ML *DIALYSIS* SYRINGE (J0882) IV SCH (09:55)
[2020-12-14] MEDS: IRON SUCROSE 100MG 5ML VIAL (J1756 PER 1MG) IV SCH (10:24)
[2020-12-14] MEDS ORDERED: LIDOCAINE 1% MDV 20ML VIAL As Ordered ONE (11:24)
[2020-12-14] MEDS: GASTROGRAFIN SOLUTION 30ML PO SCH ×2 (11:45→14:38)
--- NOTE | 2020-12-14 13:07 | IPN ---
PROGRESS NOTE DATE: 12/14/2020 SUBJECTIVE: Patient lost I.V. access yesterday and was given cefdinir 300 mg twice a day and doxycycline 100 mg twice a day. She complains of bilateral lower quadrant abdominal pain without nausea or vomiting this morning, fever or chills. Shortness of breath has improved. She has still a productive cough of white sputum. OBJECTIVE: General: Awake, alert, oriented to person, place and time, answering questions appropriately. HEENT: Moist mucous membranes. Edentulous. Neck: No JVD, no thyromegaly. Lungs: Clear to auscultation, no wheezing or rales. Heart: S1 and S2 sinus rhythm. Abdomen: Soft, nondistended, positive bowel sounds times 4 quadrants, slightly tender left lower quadrant, no guarding or rebound. Extremities: No cyanosis, clubbing or pitting edema. AV fistula noted in the arm. LABORATORY DATA/IMAGING STUDIES/MICROBIOLOGY: Have been reviewed. ASSESSMENT: This is a 75-year-old female admitted on 12/10/2020 with complaints of shortness of breath found to have multifocal pneumonia on chest x-ray, Coronavirus negative, admitted for fluid overload on dialysis, complained of abdominal pain. IMPRESSIONS/PLAN: 1. End-stage renal disease: On maintenance dialysis Monday, Monday, Monday. 2. Acute decompensated congestive heart failure with combined systolic and diastolic dysfunction, EF of 40% and grade 2 diastolic dysfunction: Managed by dialysis. Strict I's and O's, daily weights and fluid restriction. 3. Hypertension: Currently on hydralazine, Norvasc and Coreg. On dialysis hydralazine has been increased to twice a day dosing. 4. Multifocal pneumonia, lost I.V. access: Currently on cefdinir and doxycycline. Will obtain a PICC line and resume ceftriaxone. MRSA screen is negative. Patient has no white count or fevers. 5. Abdominal pain: Obtain CT abdomen and pelvis today. No nausea or vomiting. No recurrent fevers or chills. 6. History of CAD/CABG: No acute ischemic symptoms. 7. Type-2 diabetes with episodes of hypoglycemia: Patient is only on sliding scale, have discontinued long acting insulin due to decreased oral intake. 8. Shoulder pain: Lidocaine patch. [facility]
--- NOTE | 2020-12-14 13:51 | IPN ---
PROGRESS NOTE DATE: 12/14/2020 SUBJECTIVE: Bree is seen and examined this morning in the hemodialysis unit receiving her treatment. She reports her body aches all over and that she is constipated. She denies any shortness of breath at rest. Dialysis has otherwise been uneventful. OBJECTIVE: VITAL SIGNS: Temperature is 98.9, pulse is 102, respiratory rate is 18, blood pressure is 159/90, saturating 97% on 2 liters nasal cannula. INTAKE AND OUTPUT: Intake yesterday was only recorded as 480. Urine output yesterday was recorded as 950. Weight on the bed scale today is 69.2 kg. GENERAL: Patient is seen in the hemodialysis unit receiving her treatment, awake, alert and oriented and in no apparent distress. Elderly female. HEENT: Extraocular muscles are intact. Tongue is moist. NECK: Supple. Jugular veins are not elevated. HEART: Heart sounds are regular. S1 and S2. EXTREMITIES: There is no leg edema. There is no dependent edema. LUNGS: Clear air entry bilaterally (anterior auscultation only). She is comfortable on 2 liter nasal cannula. ABDOMEN: Soft and nontender. There were bowel sounds present. EXTREMITIES: There is no clubbing, cyanosis or edema. There is a fistula in the left arm which is patent and in use. NEUROLOGIC: She is oriented x3, interactive, conversational and at baseline mentation. LABORATORY DATA: Laboratory studies today shows a white count of 7.0, hemoglobin is 9.2, platelets are 134,000, sodium 136, potassium is 4.9, bicarbonate 25, magnesium 1.9. INPATIENT MEDICATIONS: Reviewed by myself. I note that she is off of IV Cefdinir now 300 mg p.o. Monday, Monday and Monday and she is on Doxycycline 100 mg p.o. b.i.d. I increased her hydralazine to 25 mg p.o. b.i.d. yesterday. She was started on Senokot today two tabs p.o. b.i.d. The remainder of medications are all unchanged as compared to yesterday. PROBLEMS: 1. Endstage renal disease on hemodialysis, on a Monday, Monday and Monday schedule. Patient is being dialyzed today. We are removing 2 to 2.5 liters as tolerated by hemodynamics. Her electrolytes and volume status is acceptable. Her fistula is in good use. No changes being made to the current dialysis prescription. 2. Multifocal pneumonia, clinically improving. Antibiotics managed by the primary service, she is now on oral Cefdinir and oral Doxycycline. 3. Hypertension. Hydralazine dose was increased yesterday to 25 mg b.i.d. She continues on amlodipine and Carvedilol. She is tolerating fluid removal with hemodialysis and we will see how her blood pressures are after dialysis is complete. 4. Anemia of chronic renal failure. Patient is receiving Aranesp with dialysis. Her latest hemoglobin is 9.2. She also received a dose of Venofer today with dialysis. Goal hemoglobin is 10 to 11. 5. Combined systolic and diastolic congestive heart failure. Left ventricular ejection fraction is 40% along with Grade 2 diastolic dysfunction (echocardiogram in March 2020). Volume status is regulated via hemodialysis, 2 to 2.5 liters are being removed with her treatment today. She is on a moderate fluid restriction. 6. Constipation, managed by the primary team.
[2020-12-14 14:00] VITALS: BP 132/72
[2020-12-14 17:55] VITALS: BP 161/74
[2020-12-14] MEDS ORDERED: CEFDINIR 300 MG CAP (OMNICEF) PO SCH (18:00)
--- NOTE | 2020-12-14 18:59 | REPVR ---
PROCEDURE INFORMATION: Exam: CT Head Without Contrast Exam date and time: 12/14/2020 6:07 PM Age: 75 years old Clinical indication: Other: Unresponsive; Additional info: AMS TECHNIQUE: Imaging protocol: Computed tomography of the head without contrast. Radiation optimization: All CT scans at this facility use at least one of these dose optimization techniques: automated exposure control; mA and/or kV adjustment per patient size (includes targeted exams where dose is matched to clinical indication); or iterative reconstruction. COMPARISON: CT Head without contrast 04/27/2020 5:34 PM FINDINGS: Brain: There is moderate age related parenchymal volume loss. White matter changes are demonstrated in the subcortical, centrum semiovale and periventricular white matter consistent with chronic age related small vessel ischemic changes. There is moderate diffuse cerebellar atrophy. Bilateral basal ganglia calcifications. Cerebral ventricles: The degree of ventricular dilatation is normal for age and/or degree of atrophy present. Paranasal sinuses: Visualized sinuses are unremarkable. No fluid levels. Mastoid air cells: Visualized mastoid air cells are well aerated. Vasculature: Atherosclerotic calcifications are demonstrated in the intracranial carotid arteries bilaterally as well as in the vertebral basilar system. Bones/joints: Unremarkable. No acute fracture. Soft tissues: Unremarkable. IMPRESSION: 1. There is moderate age related parenchymal volume loss. White matter changes are demonstrated in the subcortical, centrum semiovale and periventricular white matter consistent with chronic age related small vessel ischemic changes. 2. The degree of ventricular dilatation is normal for age and/or degree of atrophy present. 3. There is moderate diffuse cerebellar atrophy. 4. No acute intracranial findings. Electronically signed by: Jhonatan Sanchez On 12/14/2020 18:58:44 PM
[2020-12-14 19:00] LABS: ABG BASE EXCESS -0.3 (-2.0-2.0); ABG O2 SATURATION 94.2 % (95.0-99.0); ABG PARTIAL PRESSURE CO2 32.8 mmHg (35.0-45.0); ABG PARTIAL PRESSURE O2 74.9 mmHg (75.0-100.0); ABG STANDARD HCO3 24.2 MEQ/L (22.0-26.0); ABG pH (ARTERIAL) 7.464 UNITS (7.350-7.450)
[2020-12-14 19:26] VITALS: BP 138/70
[2020-12-14 20:50] VITALS: BP 164/70
[2020-12-14 20:52] LABS: ALBUMIN 3.3 GM/DL (3.2-5.2); BILIRUBIN,DIRECT 0.1 MG/DL (0.0-0.2); BILIRUBIN,TOTAL 0.4 MG/DL (0.2-1.0); CK-MB VALUE MASS 1.6 NG/ML (<3.6); MB/CK RELATIVE INDEX 1.67 (< OR =4); TOTAL PROTEIN 7.2 GM/DL (6.4-8.2); TROPONIN I 0.04 NG/ML (< 0.10)
--- NOTE | 2020-12-14 20:59 | IPNPDOC ---
Text Note Date of Service The patient was seen on 12/14/20. NOTE TIME OF SERVICE 855PM I was informed by the patient's RN Beverley that the patient has been more lethargic since she returned from dialysis. At the time of our assessment she was alert but not answering questions. While we were assessing the patient her son Therese called and added that her grandchildren had recently visited her and now multiple family members have RSV. PE O2 97% on 2L, HR 103, T 102.1, BP 152/80 / was listless but alert but not speaking / inconsistently following commands / intermittently coughing FSBS done 90 min ago was 166 / repeat at approximately 905PM was 165 #SIRS vs Sepsis source TBD Plan: repeat FSBS / CBC, blood cx, re-swab to r/o RSV, MRSA, re-order CT scan of the abdomen/pelvis w/o contrast / once we are able to obtain access we will switch her from Doxycycline to Vancomycin and Zosyn / monitor FSBS Q6H until she is alert enough to eat LATE ENTRY 1030PM Chest xray and CT abd/pelvis reports reviewed # Possible rectal fistula Plan:abx have been ordered / will ask the day time team to consult Gen Surg in the morning #Constipation Plan:switch Miralax from daily PRN to BID scheduled LATE ENTRY 1135PM #RSV The initial test done on the was negative, but repeat testing done today is positive Plan: c/w supplemental O2 w continuous pulse ox VS,Fishbone, I+O VS, Fishbone, I+O Laboratory Tests 12/14/20 05:27 Vital Signs Date Time Temp Pulse Resp B/P (MAP) Pulse Ox O2 Delivery O2 Flow Rate FiO2 12/14/20 19:30 105 94 Nasal Cannula 2.0 12/14/20 19:26 138/70 (92) 12/14/20 14:00 99.7 16 I&O- Last 24 Hours up to 6 AM 12/14/20 06:00 Intake Total 580 ml Output Total 950 ml Balance -370 ml DAXA GANN MD Dec 14, 2020 20:59
[2020-12-14] MEDS ORDERED: VANCOMYCIN HCL 1,000 MG, VIAL MATE ADAPTER 1 EACH in NS 250 ML IV SCH ×2 (21:30→21:40)
--- NOTE | 2020-12-14 21:40 | REPVR ---
PROCEDURE INFORMATION: Exam: XR Chest Exam date and time: 12/14/2020 9:31 PM Age: 75 years old Clinical indication: Cough; Additional info: Hypoxia, cough, fever and tachycardia TECHNIQUE: Imaging protocol: XR of the chest. Views: 1 view. COMPARISON: CR Abdomen,Flat Upright,PA CHEST 12/12/2020 8:13 AM FINDINGS: Lungs: Bilateral pulmonary infiltrates which have progressed in comparison to the prior examination of 12/12/2020. Pleural spaces: Blunting of both costophrenic angles may indicate pleural effusions. Heart/Mediastinum: Unremarkable. Mild cardiomegaly. Vasculature: Vascular graft demonstrated projecting over the superior mediastinum. Bones/joints: Status post sternotomy. IMPRESSION: 1. Bilateral pulmonary infiltrates which have progressed in comparison to the prior examination of 12/12/2020. 2. Blunting of both costophrenic angles may indicate pleural effusions. Electronically signed by: Jhonatan Sanchez On 12/14/2020 21:40:17 PM
[2020-12-14 22:14] LABS: BASO % 0.2 % (0.0-1.0); EOS % 0.1 % (0.0-3.0); HEMATOCRIT 30.9 % (36.0-47.0); HEMOGLOBIN 9.4 g/dl (12.0-15.5); LYMPH # 0.5 10^3/uL (1.5-5.0); LYMPH % 5.9 % (24.0-44.0); MEAN CORPUSCULAR HEMOGLOBIN 27.7 pg (27.0-33.0); MEAN CORPUSCULAR HGB CONC 30.4 g/dl (32.0-36.5); MEAN CORPUSCULAR VOLUME 91.2 fl (80.0-96.0); MONO # 0.6 10^3/uL (0.0-0.8); MONO % 6.9 % (2.0-8.0); NEUTROPHILS # 7.3 10^3/uL (1.5-8.5); NEUTROPHILS % 86.4 % (36.0-66.0); PLATELET COUNT, AUTOMATED 134 10^3/uL (150-450); RED BLOOD COUNT 3.39 10^6/uL (4.00-5.40); WHITE BLOOD COUNT 8.4 10^3/uL (4.0-10.0)
--- NOTE | 2020-12-14 22:21 | REPVR ---
PROCEDURE INFORMATION: Exam: CT Abdomen And Pelvis Without Contrast Exam date and time: 12/14/2020 10:04 PM Age: 75 years old Clinical indication: Abdominal pain; Generalized TECHNIQUE: Imaging protocol: Computed tomography of the abdomen and pelvis without contrast. Radiation optimization: All CT scans at this facility use at least one of these dose optimization techniques: automated exposure control; mA and/or kV adjustment per patient size (includes targeted exams where dose is matched to clinical indication); or iterative reconstruction. COMPARISON: CT ABD PELVIS W/O CONTRAST 06/29/2019 12:23 PM FINDINGS: Lungs: Bilateral pulmonary infiltrates, right greater than left. Small left pleural effusion. Calcified granuloma right lower lobe. Heart: Cardiomegaly. Liver: Normal. No mass. Gallbladder and bile ducts: Normal. No calcified stones. No ductal dilation. Pancreas: Normal. No ductal dilation. Spleen: Normal. No splenomegaly. Adrenal glands: Normal. No mass. Kidneys and ureters: Bilateral renal parenchymal atrophy. Nonobstructive calculi demonstrated in the right kidney. Stomach and bowel: There is increased feces throughout the colon consistent with constipation. Impacted feces in the rectum associated with rectal wall thickening consistent with stercoral colitis. Linear air collection demonstrated at the 6 o'clock position extending posteriorly from the rectal wall towards the mateusz cleft may indicate the presence of a fistula. Appendix: No evidence of appendicitis. Intraperitoneal space: Unremarkable. No free air. No significant fluid collection. Vasculature: The aortoiliac vessels demonstrate moderate atherosclerotic calcification. Lymph nodes: Unremarkable. No enlarged lymph nodes. Urinary bladder: Unremarkable as visualized. Reproductive: There has been a hysterectomy. Bones/joints: Mild central spinal stenosis L2-L3. Moderate central spinal stenosis L3-L4. Endplate sclerosis flanking the L3-L4 disc space may be related to age indeterminate prior discitis or degenerative change. Severe central spinal stenosis L4-L5. Soft tissues: Unremarkable. IMPRESSION: 1. Bilateral pulmonary infiltrates, right greater than left. Small left pleural effusion. 2. Cardiomegaly. 3. There is increased feces throughout the colon consistent with constipation. Impacted feces in the rectum associated with rectal wall thickening consistent with stercoral colitis. 4. Linear air collection demonstrated at the 6 o'clock position extending posteriorly from the rectal wall towards the cleft may indicate the presence of a fistula. 5. There has been a hysterectomy. Electronically signed by: Jhonatan Sanchez On 12/14/2020 22:21:15 PM
[2020-12-14] MEDS: ACETAMINOPHEN 650 MG SUPP PR PRN ×2 (22:43→23:04)
[2020-12-14] MEDS: **NOTE PATIENT COMMENT** MISC XX SCH (22:47)
[2020-12-14] MEDS ORDERED: VANCOMYCIN HCL 500 MG in D5W MINI-BAG PLUS 100 ML IV ONE (23:00)
[2020-12-14] MEDS: PIPERACILLIN/TAZOBACTAM SOD 2.25 GM in D5W MINI-BAG PLUS 50 ML IV SCH (23:04)
[2020-12-15] VITALS (10 sets, daily range): BP systolic 105–157; BP diastolic 44–78; O2SAT 99–100
[2020-12-15] MEDS ORDERED: VANCOMYCIN HCL 750 MG, VIAL MATE ADAPTER 1 EACH in NS 250 ML IV ONE ×3
[2020-12-15] MEDS: HumaLOG INSULIN (NovoLOG) PER UNIT SC SCH ×5 (01:50→21:55)
[2020-12-15] MEDS: traZODone 25MG PER 1/2 TABLET PO SCH ×2 (02:06→21:54)
[2020-12-15] MEDS: SENNA 8.6 MG TAB (SENOKOT) PO SCH ×3 (02:06→21:54)
[2020-12-15] MEDS: OMEPRAZOLE 20 MG CAP PO SCH ×2 (02:06→21:54)
[2020-12-15] MEDS: DOCUSATE SODIUM 100MG CAPSULE PO SCH ×3 (02:06→21:54)
[2020-12-15] MEDS: MIRALAX *UNIT DOSE* 17GM PACKET PO SCH ×4 (02:07→21:54)
[2020-12-15] MEDS: **hydrALAZINE HCL** 25 MG TAB PO SCH ×3 (02:07→21:00)
[2020-12-15 05:56] LABS: HEMATOCRIT 28.8 % (36.0-47.0); HEMOGLOBIN 8.7 g/dl (12.0-15.5); MEAN CORPUSCULAR HEMOGLOBIN 27.4 pg (27.0-33.0); MEAN CORPUSCULAR HGB CONC 30.2 g/dl (32.0-36.5); MEAN CORPUSCULAR VOLUME 90.9 fl (80.0-96.0); PLATELET COUNT, AUTOMATED 118 10^3/uL (150-450); RED BLOOD COUNT 3.17 10^6/uL (4.00-5.40); WHITE BLOOD COUNT 6.8 10^3/uL (4.0-10.0)
[2020-12-15 06:19] LABS: CALCIUM LEVEL 8.3 MG/DL (8.8-10.2); CREATININE FOR GFR 6.82 MG/DL (0.55-1.30); GLOMERULAR FILTRATION RATE 6.3 (>39); POTASSIUM SERUM 4.9 MEQ/L (3.5-5.1); VANCOMYCIN RANDOM 25.1 UG/ML
[2020-12-15] MEDS: PIPERACILLIN/TAZOBACTAM SOD 2.25 GM in D5W MINI-BAG PLUS 50 ML IV SCH ×3 (06:20→21:55)
[2020-12-15] MEDS: COMBIVENT RESPIMAT 100-20MCG INHALER 4GM INH SCH ×2 (07:36→19:28)
[2020-12-15] MEDS: BISACODYL 10 MG SUPP PR SCH ×4 (08:35→21:00)
[2020-12-15] MEDS: CARVedilol 12.5 MG TAB PO SCH (08:37)
[2020-12-15] MEDS: MULTIVITAMINS/MINERALS THERAP 1 TAB PO SCH (08:37)
[2020-12-15] MEDS: (RENVELA) SEVELAMER **CARBONate** 800 MG TAB PO SCH ×3 (08:37→18:23)
[2020-12-15] MEDS: ASPIRIN 81MG ENTERIC TABLET PO SCH (08:37)
[2020-12-15] MEDS: amLODIPine 5 MG TAB PO SCH (08:38)
[2020-12-15] MEDS: LIDOCAINE 5% (LIDODERM) PATCH TD SCH (08:38)
[2020-12-15] MEDS: CO-ENZYME Q10 50 MG CAP PO SCH (08:44)
[2020-12-15 10:46] LABS: TROPONIN I 0.04 NG/ML (< 0.10)
--- NOTE | 2020-12-15 12:10 | IPNPDOC ---
Subjective Date Seen The patient was seen on 12/15/20. Subjective Chief Complaint/HPI Mrs. Acosta is a 75 year old female with CAD s/p CABG and ESRD on dialysis MWF who presents with upper abdominal pain and exertional dyspnea. Yesterday evening, patient was more lethargic. Patient had a fever and tachycardia. Repeat blood culture obtained. CT abd/pelvis was ordered for abdominal pain. Demonstrated constipation and possible fistula. Otherwise, patient had her first BM yesterday. This morning, abdomen was feeling better. I reached out to general surgery about possible fistula, recommendations appreciated. Objective Physical Examination General Exam: Positive: Alert, Cooperative Eye Exam: Positive: EOMI; Negative: Sclera icteric ENT Exam: Positive: Atraumatic Neck Exam: Positive: Supple Chest Exam: Positive: Clear to auscultation Heart Exam: Positive: Rate Normal, Regular Rhythm Abdomen Exam: Positive: Normal bowel sounds, Soft; Negative: Tenderness Extremity Exam: Negative: Edema Neuro Exam: Positive: Cranial Nerves 3-12 NL Psych Exam: Positive: Mental status NL, Mood NL Assessment /Plan Assessment Mrs. Acosta is a 75 year old female with CAD s/p CABG and ESRD on dialysis MWF who presents with upper abdominal pain and exertional dyspnea. CT of the abdomen pelvis suggestive of possible fistula. General surgery consulted, recommendations appreciated. Otherwise, patient also to Zosyn and vancomycin. With addition of Zosyn, will cover for intra-abdominal organisms. Pending clinical improvement Otherwise, patient had a fever of 102.4 on 12/14/2020. Blood culture repeated, pending results. Antibiotics escalated from ceftriaxone and doxycycline to Zosyn and Vanco. Plan/VTE VTE Prophylaxis Ordered?: Yes Plan 1. End-stage renal disease Continue dialysis on Monday 2. Acute decompensated heart failure with combined systolic and diastolic dysfunction Echocardiogram from 03/31/2020 demonstrates EF of 40%, grade 2 diastolic dysfunction Continue with dialysis Continue with I's and O's and daily weights 3. Possible intra-abdominal fistula Seen on CT of the abdomen pelvis General surgery consulted, recommendations appreciated Continue Zosyn 4. Multifocal pneumonia Continue with Zosyn and Vanco day 1 5. Constipation Continue bowel regimen 6. DM type II Continue sliding scale insulin 7. Shoulder pain Continue lidocaine patch 8. Hypertension Continue amlodipine, hydralazine, and Coreg 9. CAD status post CABG Continue with aspirin and Coreg 10. DVT prophylaxis Heparin Disposition: Pending general surgery evaluation and blood culture results VS, I&O, [facility] Vital Signs/I&O Vital Signs Date Time Temp Pulse Resp B/P (MAP) Pulse Ox O2 Delivery O2 Flow Rate FiO2 12/15/20 10:00 93.0 85 17 105/48 (67) 93 Nasal Cannula 2.0 I&O- Last 24 Hours up to 6 AM 12/15/20 06:00 Intake Total 435 ml Output Total 2500 ml Balance -2065 ml Laboratory Data 24H LABS Laboratory Tests 2 12/14/20 14:14: Bedside Glucose (Misc Panel) 112H 12/14/20 17:59: Bedside Glucose (Misc Panel) 185H 12/14/20 18:43: Blood Gas Bicarbonate Standard 24.2, Arterial Blood pH 7.464H, Arterial Blood Partial Pressure CO2 32.8L, Arterial Blood Partial Pressure O2 74.9L, Arterial Blood Total CO2 24.0, Arterial Blood HCO3 23.0, Arterial Blood Base Excess -0.3, Arterial Blood Oxygen Saturation 94.2L 12/14/20 19:26: Bedside Glucose (Misc Panel) 166H 12/14/20 20:17: Lactic Acid Level 1.6, Total Bilirubin 0.4, Direct Bilirubin 0.1, Aspartate Amino Transf (AST/SGOT) 18, Alanine Aminotransferase (ALT/SGPT) 32, Alkaline Phosphatase 97, Ammonia < 10, Total Creatine Kinase 96, Creatine Kinase MB 1.6, Creatine Kinase MB Relative Index 1.67, Troponin I 0.04, Total Protein 7.2, Albumin 3.3, Albumin/Globulin Ratio 0.8L 12/14/20 21:03: Bedside Glucose (Misc Panel) 165H 12/14/20 21:36: Methicillin-Resist S.aureus DNA PCR NOT DETECTED 12/14/20 21:59: Immature Granulocyte % (Auto) 0.5, Neutrophils (%) (Auto) 86.4H, Lymphocytes (%) (Auto) 5.9L, Monocytes (%) (Auto) 6.9, Eosinophils (%) (Auto) 0.1, Basophils (%) (Auto) 0.2, Neutrophils # (Auto) 7.3, Lymphocytes # (Auto) 0.5L, Monocytes # (Auto) 0.6, Eosinophils # (Auto) 0.0, Basophils # (Auto) 0.0, Nucleated Red Blood Cells % (auto) 0.0 12/15/20 00:48: Bedside Glucose (Misc Panel) 185H 12/15/20 05:19: Nucleated Red Blood Cells % (auto) 0.0, Anion Gap 8, Glomerular Filtration Rate 6.3L, Calcium Level 8.3L, Magnesium Level 2.0, Troponin I 0.04, Random Vancomycin Level 25.1 12/15/20 06:06: Bedside Glucose (Misc Panel) 144H CBC/BMP Laboratory Tests 12/14/20 21:59 12/15/20 05:19 Microbiology Microbiology 12/14/20 Blood Culture, Received Pending 12/14/20 Respiratory Virus Panel (PCR) ([facility]) - Final, Complete Respiratory Syncytial Virus 12/10/20 Blood Culture - Preliminary, Resulted No Growth after 72 hours. All specime... 12/10/20 Blood Culture - Preliminary, Resulted No Growth after 72 hours. All specime... HADLEY HUANG DO Dec 15, 2020 12:10
--- NOTE | 2020-12-15 14:28 | IPN ---
PROGRESS NOTE DATE: 12/15/2020 SUBJECTIVE: Bree was seen and examined today. She complains that she continues to feel poorly, generally weak and fatigued with sore muscles. She spiked a fever overnight and was febrile persistently for several hours. T-max was 102.4, repeat blood cultures were drawn today and a repeat COVID-19 test is pending as well. She was dialyzed yesterday with 2.5 liters of fluid removed. She continues to require supplemental oxygen and CT scan was done overnight which showed bilateral pulmonary infiltrates and a possible rectal fistula. OBJECTIVE: VITAL SIGNS: Temperature is 98.5, pulse is 82, respiratory rate is 18, blood pressure is 111/50, saturating 93 to 99% on 2 liters nasal cannula. INTAKE AND OUTPUT: Dialysis yesterday removed 2.5 liters, weight on the bed scale today 68.9 kg. GENERAL: Patient was seen sitting in the chair, awake, alert and cooperative and in no distress. HEENT: Extraocular muscles are intact. Tongue is moist. NECK: Jugular veins were not elevated. HEART: Heart sounds were regular, S1 and S2, no peripheral edema. No dependent edema. LUNGS: Symmetric air movement. No crackles or rales. She was comfortable. No accessory muscle use. No cough with deep inspiration. ABDOMEN: Soft and nontender. EXTREMITIES: There is a fistula present in the arm which is patent with thrill and bruit. She has no edema or clubbing in the legs. SKIN: Warm and dry. Normal turgor. LABORATORY DATA: Hemoglobin 8.7, platelets 118,000, white count is 6.8, blood cultures were drawn yesterday evening and pending. Sodium is 137, potassium is 4.9, bicarbonate is 27, BUN 37, Vancomycin random level 25, repeat COVID-19 test is pending. Chest x-ray done yesterday shows bilateral progressive pulmonary infiltrates. CT of the abdomen and pelvis done yesterday shows bilateral pulmonary infiltrates right greater than left, small left pleural effusion, fecal impaction and possible rectal fistula. INPATIENT MEDICATIONS: She continues on IV Vancomycin and Zosyn, Tylenol p.r.n., Combivent b.i.d., Amlodipine 5 mg p.o. daily, aspirin 81 mg p.o. daily, Dulcolax suppository, Carvedilol 12.5 mg p.o. once daily. I note Cefdinir has been stopped. She continues on Aranesp with dialysis, docusate 100 mg p.o. b.i.d., hydralazine 25 mg p.o. b.i.d., Ibuprofen p.r.n., insulin, Venofer with dialysis, multivitamin one tablet daily, Miralax b.i.d., Senokot b.i.d., Renvela with meals, trazodone 25 mg p.o. q.h.s. PROBLEMS: 1. Endstage renal disease on hemodialysis on a Monday, Monday and Monday schedule. Patient was dialyzed yesterday, 2.5 liters of fluid were removed. I feel that her volume status is optimal. I do not see any sign of fluid overload on her lung imaging. Her next dialysis will be on Monday. I will be cautious with fluid removal given her fever spikes and lower blood pressures. 2. Hypertension. Patient's blood pressure is rather tightly controlled. Most recent systolic readings are 105 to 110. I have added generous holding parameters to amlodipine and hydralazine. I am concerned given her fever spikes. Avoid tight control of her blood pressure at this time. 3. Combined systolic and diastolic congestive heart failure. Volume status regulated via dialysis, 2.5 liters were removed yesterday. She is clinically euvolemic on exam. I would not aggressively remove fluid given ongoing infectious issues and fever spikes. Next dialysis will be on Monday. 4. Multifocal pneumonia. CT scan shows bilateral pulmonary infiltrates. Patient is having a fever spike despite broad spectrum antibiotics. I suggest to repeat her COVID-19 testing. Her oxygen requirements are minimal at this time. 5. Possible rectal fistula noted on CT scan. Primary team is in discussion with General Surgery. 6. Anemia of chronic renal failure. Hemoglobin is down to 8.7 on the most recent labs. I also note that her platelet count is slightly downtrending. She is receiving Aranesp with dialysis. I would transfuse if hemoglobin falls to less than 8.
[2020-12-15] MEDS ORDERED: **VANCO AFTER HD** MISC XX SCH (16:00)
[2020-12-15] MEDS: **NOTE PATIENT COMMENT** MISC XX SCH (21:47)
--- NOTE | 2020-12-15 23:27 | CR.PDOC ---
General Surgery Consultation Date of Consultation 12/15/20 History and Physical CONSULT REPORT FOR: Alexandro Randall DO (hospitalist service) REASON FOR CONSULTATION: abnormal CT (?ano rectal fistula) HISTORY OF PRESENT ILLNESS: I was asked with Dr. Randall to evaluate the patient with regards to an abnormal radiologic read on the CT abdomen and pelvis that was done for abdominal pain and the radiologist made a comment of a possibility of an anal rectal fistula. Patient is currently admitted for pneumonia. She has other significant comorbi dities especially that of having end-stage renal disease and is maintained on dialysis. She has been in the hospital since 12/10/2020 complaining of upper abdominal pain and exertional dyspnea. She tells me that she has been constipated throughout her life, moves her bowels about once every 3 to 5 days. Last BM prior to admission was 3 days prior. She was being given some laxatives with no immediate effect and she was having increased abdominal pain yesterday so it was decided to do a CT abdomen and pelvis. She eventually had a bowel movement last night and felt better this morning. At the time that I saw her she is denying any abdominal pain. On this particular CT the reading radiologist made a comment with regards to all a linear air collection at the 6 o'clock position extending posteriorly from the rectal wall towards the cleft. When speaking to her she denies any prior history of perianal, perirectal abscess. She denies noticing any drainage from her rectum, any fecal leakage. No recent rectal instrumentation. Last colonoscopy was back in [address] Brady showing just hemorrhoids and diverticulosis. She denies any rectal pain, pain with defecation. Currently also denying any abdominal pain after she had a good bowel movement yesterday. PAST MEDICAL HISTORY: 1. CAD s/p CABG 2. Ischemic cardiomyopathy 3. HFrEF with EF 35% to 40% 4. 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 Hypertension 6. IDDM type 2 7. Dyslipidemia 8. Spinal stenosis s/p lumbar laminectomy L2, L3, L4 9. ESRD on dialysis MWF 10. Anemia of chronic disease 11. Bilateral bronchiectasis with calcified granulomas with mediastinal lymphadenopathy 12. Chronic pulmonary fibrosis 13. Chronic back pain 14. Debility (uses rolling walker) Surgical History 1. CABG 2. Lumbar laminectomy of L2 to L4 3. Hysterectomy 4. Fistulogram and dilations of the AVF ALLERGIES: Please see below. HOME MEDICATIONS: Please see below. REVIEW OF SYSTEMS: Patient denies any unexplained weight loss. She has been having some intermittent low-grade fevers here. Currently denies any shortness of breath. Currently denies any abdominal pain. She denies any chest pain. PHYSICAL EXAMINATION: VITALS SIGNS: Please see below. Patient seen laying flat in bed has a nasal cannula. Looks comfortable. She was asleep when I entered the room, woke up easily. Abdomen soft benign and nondistended. No tenderness on examination. Patient refused to turn for me to examine her gluteal cleft and anorectal area. ANCILLARIES: LABORATORY DATA: Please see below. IMAGING STUDIES: I reviewed the images of the CT scan of the abdomen pelvis that was done 12/14/2020. There 2 or 3 bubbles of air at the posterior area at the lower rectum, anal area. There is no associated abscess that I could see. IMPRESSION AND PLAN: Abnormal findings on CT, possible anorectal fistula Patient has refused examination but is not reporting any symptoms that relates to possibility of fistula in anal, prior perianal or perirectal abscess that may predispose her to an anorectal fistula. She has a lot of stools and a dilated rectum at that area. Prolonged now probably nothing to do even if she has at that she is not showing any symptoms from it. But I think this is highly unlikely given no prior or recent instrumentation, no previous abscesses in patient not reporting any drainage, open wound that would demonstrate any active fistula. Vital Signs Vital Signs Date Time Temp Pulse Resp B/P (MAP) Pulse Ox O2 Delivery O2 Flow Rate FiO2 12/15/20 21:45 100.0 127/55 (79) 12/15/20 16:00 75 17 97 Nasal Cannula 2.0 I&Os I&O- Last 24 Hours up to 6 AM 12/15/20 06:00 Intake Total 435 ml Output Total 2500 ml Balance -2065 ml Laboratory Data Labs 24H Laboratory Tests 2 12/15/20 00:48: Bedside Glucose (Misc Panel) 185H 12/15/20 05:19: Nucleated Red Blood Cells % (auto) 0.0, Anion Gap 8, Glomerular Filtration Rate 6.3L, Calcium Level 8.3L, Magnesium Level 2.0, Troponin I 0.04, Random Vancomycin Level 25.1 12/15/20 06:06: Bedside Glucose (Misc Panel) 144H 12/15/20 11:48: Coronavirus (COVID-19)(PCR) NEGATIVE 12/15/20 12:16: Bedside Glucose (Misc Panel) 209H 12/15/20 17:58: Bedside Glucose (Misc Panel) 87 12/15/20 21:33: Bedside Glucose (Misc Panel) 212H CBC/BMP Laboratory Tests 12/15/20 05:19 Microbiology Microbiology 12/14/20 Blood Culture - Preliminary, Resulted No growth after 24 hours . All specim... 12/14/20 Respiratory Virus Panel (PCR) ([facility]) - Final, Complete Respiratory Syncytial Virus 12/10/20 Blood Culture - Final, Complete NO GROWTH AFTER 5 DAYS 12/10/20 Blood Culture - Final, Complete NO GROWTH AFTER 5 DAYS Home Medications Scheduled Amlodipine Besylate (Amlodipine Besylate) 5 Mg Tablet, 5 MG PO DAILY, (Reported) Aspirin (Aspirin EC) 81 Mg Tablet.dr, 81 MG PO DAILY, (Reported) Carvedilol (Carvedilol) 12.5 Mg Tablet, 12.5 MG PO DAILY, (Reported) Cefdinir (Cefdinir) 300 Mg Capsule, 300 MG PO BID Doxycycline Monohydrate (Doxycycline) 100 Mg Capsule, 1 CAP PO BID Hydralazine HCl (Hydralazine HCl) 25 Mg Tablet, 25 MG PO DAILY, (Reported) PRESCRIBED FOR TID DOSING, PT ONLY TAKING ONCE DAILY Ipratropium/Albuterol Sulfate (Combivent Respimat 20-100 Mcg) 4 Gm Mist.inhal, 1 PUFF INH BID, (Reported) Lidocaine/Prilocaine (Lidocaine-Prilocaine Cream) 2.5%/2.5% Cream..g., 1 APLCT TOP 3XW, (Reported) MONDAY, MONDAY AND MONDAY PRIOR TO DIALYSIS Multivitamins (Thera M Plus Tablet) 1 Each Tablet, 1 TAB PO DAILY, (Reported) Sevelamer Carbonate (Sevelamer Carbonate) 800 Mg Tablet, 800 MG PO WM, (Reported) Trazodone HCl (Trazodone HCl) 50 Mg Tablet, 25 MG PO QHS, (Reported) Ubidecarenone (Coenzyme Q10) 100 Mg Tablet, 100 MG PO DAILY, (Reported) Scheduled PRN Hydroxyzine HCl (Hydroxyzine HCl) 10 Mg Tablet, 20 MG PO QHS PRN for SLEEP, (Reported) Ibuprofen (Ibu-200) 200 Mg Tablet, 200 MG PO Q6H PRN for PAIN LEVEL 1-4, (Reported) Sevelamer Carbonate (Renvela) 800 Mg Tablet, 800 MG PO ASDIRECTED PRN for AFTER SNACKS, (Reported) Allergies Coded Allergies: [id number] Reductase Inhibitor (Verified Adverse Reaction, Unknown, PAIN, 10/05/20) PT SAYS SHE CAN TAKE PRAVASTATIN GLENNA BAUTISTA MD Dec 15, 2020 23:27
[2020-12-16 06:00] VITALS: BP 111/56; O2SAT 94
[2020-12-16 06:08] LABS: HEMATOCRIT 28.4 % (36.0-47.0); HEMOGLOBIN 8.6 g/dl (12.0-15.5); MEAN CORPUSCULAR HEMOGLOBIN 27.7 pg (27.0-33.0); MEAN CORPUSCULAR HGB CONC 30.3 g/dl (32.0-36.5); MEAN CORPUSCULAR VOLUME 91.3 fl (80.0-96.0); PLATELET COUNT, AUTOMATED 115 10^3/uL (150-450); RED BLOOD COUNT 3.11 10^6/uL (4.00-5.40); WHITE BLOOD COUNT 5.6 10^3/uL (4.0-10.0)
[2020-12-16] MEDS: PIPERACILLIN/TAZOBACTAM SOD 2.25 GM in D5W MINI-BAG PLUS 50 ML IV SCH ×3 (06:15→21:17)
[2020-12-16] MEDS: **hydrALAZINE HCL** 25 MG TAB PO SCH ×2 (06:16→21:00)
[2020-12-16] MEDS: CO-ENZYME Q10 50 MG CAP PO SCH (06:16)
[2020-12-16] MEDS: MIRALAX *UNIT DOSE* 17GM PACKET PO SCH ×3 (06:17→22:30)
[2020-12-16] MEDS: amLODIPine 5 MG TAB PO SCH (06:17)
[2020-12-16] MEDS: DOCUSATE SODIUM 100MG CAPSULE PO SCH ×2 (06:17→21:17)
[2020-12-16] MEDS: BISACODYL 10 MG SUPP PR SCH ×3 (06:17→21:00)
[2020-12-16] MEDS: ASPIRIN 81MG ENTERIC TABLET PO SCH (06:17)
[2020-12-16] MEDS: MULTIVITAMINS/MINERALS THERAP 1 TAB PO SCH (06:18)
[2020-12-16] MEDS: SENNA 8.6 MG TAB (SENOKOT) PO SCH ×2 (06:18→21:17)
[2020-12-16 06:40] LABS: CALCIUM LEVEL 8.1 MG/DL (8.8-10.2); CREATININE FOR GFR 8.72 MG/DL (0.55-1.30); GLOMERULAR FILTRATION RATE 4.7 (>39); POTASSIUM SERUM 4.9 MEQ/L (3.5-5.1)
[2020-12-16] MEDS: COMBIVENT RESPIMAT 100-20MCG INHALER 4GM INH SCH ×2 (07:21→19:28)
[2020-12-16] MEDS: HumaLOG INSULIN (NovoLOG) PER UNIT SC SCH ×4 (07:30→21:00)
[2020-12-16] MEDS: LIDOCAINE 5% (LIDODERM) PATCH TD SCH (08:10)
[2020-12-16] MEDS: (RENVELA) SEVELAMER **CARBONate** 800 MG TAB PO SCH ×3 (08:13→19:00)
[2020-12-16] MEDS: CARVedilol 12.5 MG TAB PO SCH (08:17)
[2020-12-16 09:00] VITALS: O2SAT 97
[2020-12-16] MEDS ORDERED: LIDOCAINE 1% SDV 5ML VIAL SC PRN (09:05)
[2020-12-16] MEDS ORDERED: SODIUM CHLORIDE 0.9% 1000ML IV PRN (09:05)
[2020-12-16] MEDS: IRON SUCROSE 100MG 5ML VIAL (J1756 PER 1MG) IV SCH (09:35)
[2020-12-16] MEDS: guaiFENesin DM *SUGAR FREE* 5ML**DIABETIC TUSSIN DM PO PRN ×2 (13:23→21:17)
[2020-12-16 14:00] VITALS: BP 152/80
[2020-12-16] MEDS: ACETAMINOPHEN TAB 650MG DOSE (2X325MG) PO PRN (14:14)
--- NOTE | 2020-12-16 15:23 | IPN ---
NEPHROLOGY INPATIENT PROGRESS NOTE DATE: 12/16/2020 SUBJECTIVE: Bree is seen and examined this morning in the Hemodialysis Unit receiving a treatment. She complains of cough. She has been having fevers, T-max yesterday was 100.8 and T-max thus far today is 100.3. She reports some poor appetite and we are taking off less fluid today than we normally do. PHYSICAL EXAMINATION: Vital signs: Temperature 99.5, pulse 85, respiratory rate 19, blood pressure 111/56, saturating 94% on 2 liters nasal cannula. Intake yesterday was 1280. Weight on the bed scale today was not recorded. Goal dialysis fluid removal today is 1 liter. General: Patient is seen in the Hemodialysis Unit receiving her treatment awake, alert and oriented and comfortable, in no acute distress. HEENT: Extraocular muscles are intact. Tongue is moist. Neck: Jugular veins are not elevated. Heart sounds: Regular S1 and S2. No peripheral edema, no dependent edema. Lungs: She has coughing fit with deep inspiration. There was occasional rhonchus, but there was no accessory muscle use. Abdomen: Soft and nontender. Extremities: There is a fistula in the left arm which is patent and in use. There is no edema in the legs. Skin: Warm and dry. LABORATORY DATA: White count 5.6, hemoglobin 8.6, platelets 115. Sodium 138, potassium 4.9, bicarbonate 26, BUN 62, creatinine 8.7. Blood culture December 14: No growth for 24 hours. Coronavirus-19 test was negative. INPATIENT MEDICATIONS: 1. She continues on I.V. Zosyn. 2. Vancomycin random level yesterday was 25. Vancomycin was subsequently held. She continues on: 3. Tylenol p.r.n. 4. Combivent twice a day. 5. Amlodipine 5 mg by mouth daily. 6. Aspirin 81 mg by mouth daily. 7. Carvedilol 12.5 mg by mouth daily. 8. Aranesp with dialysis. 9. Docusate twice a day. 10. Robitussin p.r.n. 11. Hydralazine 25 mg by mouth twice a day. 12. Insulin. 13. Venofer with dialysis. 14. Multivitamin 1 tablet daily. 15. Prilosec 40 mg by mouth at bedtime. 16. Zofran p.r.n. 17. MiraLax twice a day. 18. Senokot twice a day. 19. Renvela with meals. 20. Trazodone 25 mg by mouth at bedtime. PROBLEMS/PLAN: 1. End-stage renal disease: On hemodialysis on a Monday, Monday, Monday schedule. Patient has had decreased oral intake. She is dialyzed today with only 1 liter of fluid for goal removal. Her electrolytes are otherwise acceptable and her fistula is in good use. Next dialysis will be on Monday. 2. Hypertension: Blood pressures have been soft. Patient is ill with multifocal pneumonia and having fever spikes. There are generous holding parameters written for her amlodipine, carvedilol and hydralazine and she is not receiving most of the doses. 3. Anemia secondary to renal failure and inflammatory state and iron deficiency: She continues on Aranesp with dialysis along with Venofer. I would transfuse for a hemoglobin less than 8. Currently hemoglobin is 8s-9s. Goal hemoglobin 10-11. 4. Combined systolic and diastolic congestive heart failure: Volume status looks reasonably compensated. Only 1 liter is being removed today as the patient notes poor oral intake as she has been febrile and coughing and acutely ill with multifocal pneumonia. 5. Multifocal pneumonia: She is on Zosyn and vancomycin by the primary team. Vancomycin random level yesterday was 25.
[2020-12-16 15:30] VITALS: BP 127/52
[2020-12-16] MEDS ORDERED: IBUPROFEN 400MG TAB PO ONE (15:35)
[2020-12-16 16:00] VITALS: BP 126/51
[2020-12-16] MEDS ORDERED: BENZONATATE 100MG CAPSULE PO SCH (16:00)
--- NOTE | 2020-12-16 20:05 | IPNPDOC ---
Subjective Date Seen The patient was seen on 12/16/20. Subjective Chief Complaint/HPI Mrs. Acosta is a 75 year old female with CAD s/p CABG and ESRD on dialysis MWF who presents with upper abdominal pain and exertional dyspnea. Patient was seen this morning in the dialysis unit. Reports fatigue. Also has some mild chest discomfort redirected from her shoulder pain. Otherwise, this afternoon she had a temperature of 102.7 with tachycardia. EKG demonstrated sinus tachycardia. She was given Tylenol and ibuprofen which controlled her temperature. She tells me that she feels okay. Objective Physical Examination General Exam: Positive: Alert, Cooperative Eye Exam: Positive: EOMI; Negative: Sclera icteric ENT Exam: Positive: Atraumatic Neck Exam: Positive: Supple Chest Exam: Positive: Clear to auscultation Heart Exam: Positive: Rate Normal, Regular Rhythm Abdomen Exam: Positive: Normal bowel sounds, Soft; Negative: Tenderness Extremity Exam: Negative: Edema Neuro Exam: Positive: Cranial Nerves 3-12 NL Psych Exam: Positive: Mental status NL, Mood NL Assessment /Plan Assessment Mrs. Acosta is a 75 year old female with CAD s/p CABG and ESRD on dialysis MWF who presents with upper abdominal pain and exertional dyspnea. CT of the abdomen pelvis suggestive of possible fistula. General surgery consulted, recommendations appreciated. Otherwise, patient also to Zosyn and vancomycin. With addition of Zosyn, will cover for intra-abdominal organisms. Pending clinical improvement Otherwise, patient had a fever of 102.4 on 12/14/2020. Blood culture repeated, pending results. Antibiotics escalated from ceftriaxone and doxycycline to Zosyn and Vanco. Patient had another fever again on 12/16/2020. Plan/VTE VTE Prophylaxis Ordered?: Yes Plan 1. End-stage renal disease Continue dialysis on Monday 2. Acute decompensated heart failure with combined systolic and diastolic dysfunction Echocardiogram from 03/31/2020 demonstrates EF of 40%, grade 2 diastolic dysfunction Continue with dialysis Continue with I's and O's and daily weights 3. Possible intra-abdominal fistula Seen on CT of the abdomen pelvis General surgery consulted, recommendations appreciated. General surgery suggests that the presence of a fistula is highly unlikely. Continue Zosyn 4. Multifocal pneumonia Continue with Zosyn day 2 MRSA PCR was negative 5. Constipation Continue bowel regimen 6. DM type II Continue sliding scale insulin 7. Shoulder pain Continue lidocaine patch 8. Hypertension Continue amlodipine, hydralazine, and Coreg 9. CAD status post CABG Continue with aspirin and Coreg 10. DVT prophylaxis Heparin Disposition: Pending clinical improvement VS, I&O, 24H, Fishbone Vital Signs/I&O Vital Signs Date Time Temp Pulse Resp B/P (MAP) Pulse Ox O2 Delivery O2 Flow Rate FiO2 12/16/20 16:00 100.9 92 18 126/51 (76) 97 Nasal Cannula 2.0 I&O- Last 24 Hours up to 6 AM 12/16/20 06:00 Intake Total 1150 ml Balance 1150 ml Laboratory Data 24H LABS Laboratory Tests 2 12/15/20 21:33: Bedside Glucose (Misc Panel) 212H 12/16/20 05:25: Nucleated Red Blood Cells % (auto) 0.4H, Anion Gap 10, Glomerular Filtration Rate 4.7L, Calcium Level 8.1L 12/16/20 12:38: Bedside Glucose (Misc Panel) 117H 12/16/20 16:49: Bedside Glucose (Misc Panel) 158H CBC/BMP Laboratory Tests 12/16/20 05:25 Microbiology Microbiology 12/14/20 Blood Culture - Preliminary, Resulted No growth after 24 hours . All specim... 12/14/20 Respiratory Virus Panel (PCR) ([facility]) - Final, Complete Respiratory Syncytial Virus 12/10/20 Blood Culture - Final, Complete NO GROWTH AFTER 5 DAYS 12/10/20 Blood Culture - Final, Complete NO GROWTH AFTER 5 DAYS HADLEY HUANG DO Dec 16, 2020 20:05
[2020-12-16 21:00] VITALS: BP 126/53
[2020-12-16] MEDS ORDERED: guaiFENesin ER 600 MG TAB PO SCH (21:00)
[2020-12-16] MEDS: **NOTE PATIENT COMMENT** MISC XX SCH (21:05)
[2020-12-16] MEDS: OMEPRAZOLE 20 MG CAP PO SCH (21:17)
[2020-12-16] MEDS: traZODone 25MG PER 1/2 TABLET PO SCH (21:17)
[2020-12-17] VITALS (8 sets, daily range): BP systolic 114–122; BP diastolic 52–61; O2SAT 85–96
[2020-12-17] MEDS: PIPERACILLIN/TAZOBACTAM SOD 2.25 GM in D5W MINI-BAG PLUS 50 ML IV SCH ×3 (05:45→21:16)
[2020-12-17] MEDS: guaiFENesin DM *SUGAR FREE* 5ML**DIABETIC TUSSIN DM PO PRN (05:54)
[2020-12-17 06:38] LABS: HEMATOCRIT 29.5 % (36.0-47.0); HEMOGLOBIN 8.7 g/dl (12.0-15.5); MEAN CORPUSCULAR HEMOGLOBIN 27.4 pg (27.0-33.0); MEAN CORPUSCULAR HGB CONC 29.5 g/dl (32.0-36.5); MEAN CORPUSCULAR VOLUME 93.1 fl (80.0-96.0); PLATELET COUNT, AUTOMATED 118 10^3/uL (150-450); RED BLOOD COUNT 3.17 10^6/uL (4.00-5.40)
[2020-12-17 07:07] LABS: CALCIUM LEVEL 8.2 MG/DL (8.8-10.2); CREATININE FOR GFR 5.74 MG/DL (0.55-1.30); GLOMERULAR FILTRATION RATE 7.7 (>39); POTASSIUM SERUM 4.6 MEQ/L (3.5-5.1)
[2020-12-17] MEDS: COMBIVENT RESPIMAT 100-20MCG INHALER 4GM INH SCH ×2 (07:31→19:31)
[2020-12-17 08:46] LABS: C REACTIVE PROTEIN QUANTITATIV 3.32 MG/DL (0.00-0.30)
[2020-12-17] MEDS: BISACODYL 10 MG SUPP PR SCH (09:00)
[2020-12-17] MEDS: SENNA 8.6 MG TAB (SENOKOT) PO SCH ×2 (09:00→21:00)
[2020-12-17] MEDS: DOCUSATE SODIUM 100MG CAPSULE PO SCH ×2 (09:00→21:00)
[2020-12-17] MEDS: MIRALAX *UNIT DOSE* 17GM PACKET PO SCH (09:00)
[2020-12-17] MEDS: CO-ENZYME Q10 50 MG CAP PO SCH (09:02)
[2020-12-17] MEDS: MULTIVITAMINS/MINERALS THERAP 1 TAB PO SCH (09:02)
[2020-12-17] MEDS: ASPIRIN 81MG ENTERIC TABLET PO SCH (09:02)
[2020-12-17] MEDS: (RENVELA) SEVELAMER **CARBONate** 800 MG TAB PO SCH ×3 (09:02→18:00)
[2020-12-17] MEDS: CARVedilol 12.5 MG TAB PO SCH (09:03)
[2020-12-17] MEDS: amLODIPine 5 MG TAB PO SCH (09:03)
[2020-12-17] MEDS: **hydrALAZINE HCL** 25 MG TAB PO SCH ×2 (09:03→21:00)
[2020-12-17] MEDS: HumaLOG INSULIN (NovoLOG) PER UNIT SC SCH ×4 (09:04→21:00)
[2020-12-17] MEDS: BENZONATATE 100MG CAPSULE PO SCH ×3 (09:09→21:15)
[2020-12-17] MEDS: traMADol 50 MG TAB PO PRN (09:10)
[2020-12-17] MEDS ORDERED: KETOROLAC 30 MG/ML 1ML VIAL IV PRN (12:25)
[2020-12-17] MEDS ORDERED: MORPHINE 2 MG/ML 1ML VIAL (J2270) IV PRN (12:40)
--- NOTE | 2020-12-17 14:04 | ECGEPIP ---
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
--- NOTE | 2020-12-17 17:23 | REP ---
INDICATION: fever, looking for abscess. COMPARISON: 12/14/2020 the latest prior also without intravenous or bowel preparatory contrast TECHNIQUE: Standard helical technique without intravenous or oral bowel preparatory contrast. FINDINGS: There is no significant change in appearance of the lung bases. There are bilateral airspace opacities and a left pleural effusion status quo. Limited evaluation of the liver, gallbladder, spleen, pancreas, adrenal glands, and kidneys show no significant changes compared to the prior exam. There is no significant change in the appearance of the abdominal aorta or para-regions. There is no significant change in appearance of the bowel loops or the mesenteries. The large amount of content in the rectosigmoid vault is no longer present. The perirectal soft tissues and ischiorectal fossa appear unremarkable. Have not changed significantly and are seen in limited fashion due to the lack of intraluminal contrast opacification and intravenous contrast administration. No mass or adenopathy has developed. There is no evidence of free fluid or free air. Bone window technique throughout the examination again shows extensive chronic spinal degenerative changes with marked endplate changes seen at L3-4. These appear stable when compared to an older exam of 09/09/2018. At the T8-9 level similar endplate changes are developing in the although unchanged from 12/14/2020 these were not present on the 09/09/2018 exam. IMPRESSION: 1. Abnormal lung bases as described above. Likely pneumonia and a left pleural effusion. 2. No evidence of acute intra-abdominal or intrapelvic disease with findings and limitations as described above. 3. Chronic osseous changes as described above. There appears to be old discitis at L3-4 with old possibly subacute discitis a T8-9 as described above. <Electronically signed by Cornelius García > 12/17/20 [id number]
--- NOTE | 2020-12-17 17:54 | IPNPDOC ---
Subjective Date Seen The patient was seen on 12/17/20. Subjective Chief Complaint/HPI Mrs. Acosta is a 75 year old female with CAD s/p CABG and ESRD on dialysis MWF who presents with upper abdominal pain and exertional dyspnea. This morning, she tells me that her coughing is causing her chest pain. The Robitussin helps. I've added on Tessami Luna. Otherwise, later in the day, patient had recurrent fever. Temperature was 100.3. Will order a CT abd/pelvis to look for intra-abdominal sources of infection such as occult abscess. Otherwise, would order legionella urine antigen, but patient does not make urine. Will order legionella and mycoplasma serum studies. Will also order for sputum culture. Added on chest physiotherapy and acapella to see if we can bring up sputum. Objective Physical Examination General Exam: Positive: Alert, Cooperative Eye Exam: Positive: EOMI; Negative: Sclera icteric ENT Exam: Positive: Atraumatic Neck Exam: Positive: Supple Chest Exam: Positive: Diminished Heart Exam: Positive: Rate Normal, Regular Rhythm Abdomen Exam: Positive: Normal bowel sounds, Soft; Negative: Tenderness Extremity Exam: Negative: Edema Neuro Exam: Positive: Cranial Nerves 3-12 NL Psych Exam: Positive: Mental status NL, Mood NL Assessment /Plan Assessment Mrs. Acosta is a 75 year old female with CAD s/p CABG and ESRD on dialysis MWF who presents with upper abdominal pain and exertional dyspnea. CT of the abdomen pelvis suggestive of possible fistula. General surgery consulted, recommendations appreciated. Otherwise, patient also to Zosyn and vancomycin. With addition of Zosyn, will cover for intra-abdominal organisms. Pending clinical improvement Otherwise, patient had a fever of 102.4 on 12/14/2020. Blood culture repeated, pending results. Antibiotics escalated from ceftriaxone and doxycycline to Zosyn and Vanco. Patient had another fever again on 12/16/2020 and on 12/17/2020. Considering possible occult abscess, will order for CT abd/pelvis. Will look for atypical pneumonia with legionella and mycoplasma serum studies. Plan/VTE VTE Prophylaxis Ordered?: Yes Plan 1. End-stage renal disease Continue dialysis on Monday 2. Acute decompensated heart failure with combined systolic and diastolic dysfunction Echocardiogram from 03/31/2020 demonstrates EF of 40%, grade 2 diastolic dysfunction Continue with dialysis Continue with I's and O's and daily weights 3. Possible intra-abdominal fistula Seen on CT of the abdomen pelvis General surgery consulted, recommendations appreciated. General surgery suggests that the presence of a fistula is highly unlikely. Continue Zosyn 4. Multifocal pneumonia Continue with Zosyn day 3 MRSA PCR was negative -Procalcitonin, ESR, and CRP elevated 5. Constipation Continue bowel regimen 6. DM type II Continue sliding scale insulin 7. Shoulder pain Continue lidocaine patch 8. Hypertension Continue amlodipine, hydralazine, and Coreg 9. CAD status post CABG Continue with aspirin and Coreg 10. DVT prophylaxis Heparin Disposition: Pending clinical improvement VS, I&O, 24H, Fishbone Vital Signs/I&O Vital Signs Date Time Temp Pulse Resp B/P (MAP) Pulse Ox O2 Delivery O2 Flow Rate FiO2 12/17/20 14:00 99.3 81 16 114/60 (78) 97 Nasal Cannula 2.0 I&O- Last 24 Hours up to 6 AM 12/17/20 06:00 Intake Total 640 ml Output Total 1000 ml Balance -360 ml Laboratory Data 24H LABS Laboratory Tests 2 12/16/20 20:59: Bedside Glucose (Misc Panel) 171H 12/17/20 05:48: Nucleated Red Blood Cells % (auto) 0.0, Anion Gap 9, Glomerular Filtration Rate 7.7L, Calcium Level 8.2L, C-Reactive Protein, Quantitative 3.32H, Procalcitonin 3.04 12/17/20 11:13: Erythrocyte Sedimentation Rate 60H 12/17/20 12:12: Bedside Glucose (Misc Panel) 177H 12/17/20 17:25: Bedside Glucose (Misc Panel) 127H CBC/BMP Laboratory Tests 12/17/20 05:48 Microbiology Microbiology 12/14/20 Blood Culture - Preliminary, Resulted No Growth after 48 hours. All Specime... 12/14/20 Respiratory Virus Panel (PCR) ([facility]) - Final, Complete Respiratory Syncytial Virus 12/10/20 Blood Culture - Final, Complete NO GROWTH AFTER 5 DAYS 12/10/20 Blood Culture - Final, Complete NO GROWTH AFTER 5 DAYS HADLEY HUANG DO Dec 17, 2020 17:54
--- NOTE | 2020-12-17 17:56 | IPN ---
PROGRESS NOTE DATE: 12/17/2020 SUBJECTIVE: Bree is seen and examined this morning at the bedside. She is not doing well. She continues to spike high-grade fevers despite therapeutic levels of vancomycin and also on Zosyn. She tells me she feels sore all over, and nursing staff reports patient has been lethargic. Patient also reports poor appetite and poor oral intake. She was dialyzed yesterday without any issues, but we only removed 1 liter because of her fevers and poor intake. VITAL SIGNS: Temperature current is 100.3, maximum temperature (T-max) in the past 24 hours was 102.7 yesterday at 3 p.m. GENERAL: Patient is seen lying in bed, elderly female, drowsy but easily arousable. Oriented times three. Extraocular muscles are intact. Tongue is moist. Jugular veins are not elevated. HEART: Sounds are regular, S1, S2. There is no peripheral edema. There is no dependent edema. LUNGS: She has a coughing fit with deep inspiration. Otherwise, there was no wheezing and no rales. ABDOMEN: Soft and nontender. EXTREMITIES: There is a fistula in the left arm, which is patent with thrill and bruit. NEUROLOGIC: Patient is oriented times three. She cooperates with physical exam, but she is clearly slower than her usual baseline and somewhat lethargic appearing. SKIN: Warm and dry and normal turgor. LABORATORY DATA: White count 5.0, hemoglobin 8.7, platelets 118. ESR 60. Sodium 140, potassium 4.6, bicarbonate 25, BUN 26, creatinine 5.7. CRP 3.3. Procalcitonin 3.0. INPATIENT MEDICATIONS: Patient has therapeutic levels of vancomycin. She is also on intravenous (IV) Zosyn. I note Dulcolax suppository was stopped. I note pain regimen was adjusted by the primary team. MiraLax was also stopped. No other medication changes are noted. PROBLEMS: 1. End-stage renal disease, on hemodialysis on a Monday, Monday, Monday schedule. Patient was dialyzed yesterday with only 1 liter of fluid removal. We cut down the fluid removal goal because of ongoing fever spikes and poor oral intake. Her electrolytes and volume status are acceptable. Her fistula is in good use. Next dialysis will be on Monday. 2. Hypertension. Blood pressures have been adequate. Patient is ill and febrile, and there are generous holding parameters written for her amlodipine, carvedilol, and hydralazine, and doses are held as indicated. 3. Anemia secondary to renal failure, inflammatory state, and iron deficiency. Hemoglobin is down to 8.7 on the latest labs. Patient continues on Aranesp with dialysis. I would transfuse for hemoglobin less than 8. 4. Combined systolic and diastolic congestive heart failure. Volume status is regulated by dialysis. Patient has left ventricular ejection fraction of 40% and grade 2 diastolic dysfunction. Only 1 liter was removed with dialysis yesterday, because she is acutely ill and febrile and having poor oral intake, and she is felt to be fairly euvolemic at present. 5. Multifocal pneumonia. Patient is on vancomycin and Zosyn. Her most recent random vancomycin level 2 days ago was 25. She is still having fever spikes. There is a plan to reimage the abdomen by the primary team, as she had prior recent abnormal CT scan of the abdomen and pelvis. Her erythrocyte sedimentation rate (ESR) and C-reactive protein (CRP) are both elevated, but there is no leukocytosis. Blood cultures on admission and repeat blood cultures on December 14 showed no growth. Patient does still make some urine. We will get a urine culture. I suggest if she continues to have fever spikes that she may need to be evaluated by infectious disease.
[2020-12-17] MEDS: OMEPRAZOLE 20 MG CAP PO SCH (21:15)
[2020-12-17] MEDS: traZODone 25MG PER 1/2 TABLET PO SCH (21:15)
[2020-12-18] MEDS: PIPERACILLIN/TAZOBACTAM SOD 2.25 GM in D5W MINI-BAG PLUS 50 ML IV SCH ×3 (05:17→20:48)
[2020-12-18 06:00] VITALS: BP 137/75
[2020-12-18] MEDS: SENNA 8.6 MG TAB (SENOKOT) PO SCH ×2 (06:02→20:41)
[2020-12-18] MEDS: DOCUSATE SODIUM 100MG CAPSULE PO SCH ×2 (06:02→20:41)
[2020-12-18] MEDS: **hydrALAZINE HCL** 25 MG TAB PO SCH ×2 (06:04→20:40)
[2020-12-18] MEDS: amLODIPine 5 MG TAB PO SCH (06:04)
[2020-12-18] MEDS: BENZONATATE 100MG CAPSULE PO SCH ×3 (06:29→20:48)
[2020-12-18] MEDS: CO-ENZYME Q10 50 MG CAP PO SCH (06:29)
[2020-12-18] MEDS: ASPIRIN 81MG ENTERIC TABLET PO SCH (06:29)
[2020-12-18] MEDS: CARVedilol 12.5 MG TAB PO SCH (06:30)
[2020-12-18] MEDS: MULTIVITAMINS/MINERALS THERAP 1 TAB PO SCH (06:30)
[2020-12-18] MEDS: HumaLOG INSULIN (NovoLOG) PER UNIT SC SCH ×4 (07:30→20:48)
[2020-12-18] MEDS: COMBIVENT RESPIMAT 100-20MCG INHALER 4GM INH SCH ×3 (07:30→19:24)
[2020-12-18] MEDS ORDERED: IPRATROPIUM 0.5MG/ALBUTEROL 2.5MG INH SOL UD 3ML (DUONEB) NEB PRN (08:45)
[2020-12-18 09:00] VITALS: O2SAT 87
[2020-12-18 09:03] VITALS: O2SAT 93
[2020-12-18] MEDS ORDERED: LIDOCAINE 1% SDV 5ML VIAL SC PRN (09:15)
[2020-12-18] MEDS ORDERED: SODIUM CHLORIDE 0.9% 1000ML IV PRN (09:15)
[2020-12-18] MEDS: (RENVELA) SEVELAMER **CARBONate** 800 MG TAB PO SCH ×3 (09:23→18:59)
[2020-12-18 12:26] LABS: HEMATOCRIT 28.3 % (36.0-47.0); HEMOGLOBIN 8.5 g/dl (12.0-15.5); MEAN CORPUSCULAR HEMOGLOBIN 27.4 pg (27.0-33.0); MEAN CORPUSCULAR VOLUME 91.3 fl (80.0-96.0); PLATELET COUNT, AUTOMATED 109 10^3/uL (150-450); WHITE BLOOD COUNT 4.1 10^3/uL (4.0-10.0)
[2020-12-18 13:07] LABS: CALCIUM LEVEL 8.2 MG/DL (8.8-10.2); CREATININE FOR GFR 8.61 MG/DL (0.55-1.30); GLOMERULAR FILTRATION RATE 4.8 (>39); POTASSIUM SERUM 4.4 MEQ/L (3.5-5.1)
--- NOTE | 2020-12-18 13:37 | IPN ---
NEPHROLOGY PROGRESS NOTE DATE: 12/18/2020 SUBJECTIVE: Bree is seen and examined this morning sitting out of bed to the chair. She reports she feels weak and tired, but otherwise has no specific complaints. Maximum temperature (T-max) in the past 24 hours was 100.3. She is seen later in the dialysis unit receiving a gentle treatment with goal fluid removal of only 1 liter, as patient reports ongoing poor appetite. PHYSICAL EXAMINATION: VITAL SIGNS: Maximum temperature (T-max) 100.3, current temperature 98.0, pulse 89, respiratory rate 16, blood pressure 137/75, saturating 97% on 1 liter nasal cannula. INTAKE AND OUTPUT: Intake yesterday was 670 mL. Weight in the bed scale 67.6 kg. GENERAL: Patient is seen earlier in the morning, sitting out of bed in the chair and later in the afternoon in the dialysis unit receiving a treatment. Awake, alert, oriented times three and in no acute distress. HEENT: Extraocular muscles are intact. There is alopecia. Tongue is moist. NECK: Supple. Jugular veins are not elevated. HEART SOUNDS: Regular. S1, S2. There is no peripheral edema. There is no dependent edema. LUNGS: Symmetric air movement. No crackle or rale. She is on 1 liter nasal cannula. ABDOMEN: Soft and nontender. There are bowel sounds. EXTREMITIES: Show a fistula in the left arm, which is presently in use. NEUROLOGIC: She is oriented times three, interactive and conversational. SKIN: Warm and dry. Normal turgor. LABORATORY STUDIES: White count 4.1, hemoglobin 8.5, platelets 109. Sodium 140. IMAGING: CT abdomen and pelvis done yesterday shows pneumonia and small left pleural effusion. No other acute findings. INPATIENT MEDICATIONS: Patient continues on intravenous (IV) Zosyn and is also on IV doxycycline. The remainder of medications remain unchanged as compared with yesterday. PROBLEMS: 1. End-stage renal disease on hemodialysis on a Monday, Monday, Monday schedule. Patient is being dialyzed today with goal fluid removal of only 1 liter of fluid as she reports she is having poor appetite and poor intake. Her electrolytes and volume status are acceptable. Her fistula is in good use. She is tolerating her treatment today without issue. 2. Hypertension. There are holding parameters written for the patient's amlodipine, carvedilol and hydralazine. Today, she only received carvedilol. Blood pressure has been stable and she is tolerating gentle fluid removal with dialysis. 3. Anemia secondary to renal failure, inflammatory state and iron deficiency. Hemoglobin is 8.5 on the latest labs. She continues on Aranesp with dialysis and IV iron. I would transfuse for hemoglobin less than 8. 4. Combined systolic and diastolic congestive heart failure. Volume status is regulated by dialysis. Left ventricular ejection fraction is 40% and patient has grade 2 diastolic dysfunction. Only 2 liters were removed with dialysis today because patient is ill and having low grade fevers and having poor oral intake and is felt to be euvolemic at present. 5. Multifocal pneumonia. Antibiotics have been adjusted by the primary team. There is low grade fever. She has a repeat CAT scan of the abdomen and pelvis that did not show any acute or new findings. Blood cultures did not have any growth. Patient reports generalized weakness and debility. A sputum culture is pending. Oxygen requirements are minimal.
[2020-12-18 14:00] VITALS: BP 140/80
[2020-12-18] MEDS: IRON SUCROSE 100MG 5ML VIAL (J1756 PER 1MG) IV SCH (14:35)
[2020-12-18] MEDS: DOXYCYCLINE HYCLATE 100 MG in D5W MINI-BAG PLUS 100 ML IV SCH ×2 (16:00→23:53)
--- NOTE | 2020-12-18 17:09 | IPNPDOC ---
Subjective Date Seen The patient was seen on 12/18/20. Subjective Chief Complaint/HPI Mrs. Acosta is a 75 year old female with CAD s/p CABG and ESRD on dialysis MWF who presents with upper abdominal pain and exertional dyspnea. This morning, patient denies any chest pain or worsening dyspnea. She only has an IV through her foot. Attempted to get her a PICC line. I went back to discuss this with her later in the morning. She was seen sitting up in the chair. She declined as she did not want to be poked again. Otherwise added on doxycycline to cover for atypical pneumonia Objective Physical Examination General Exam: Positive: Alert, Cooperative Eye Exam: Positive: EOMI; Negative: Sclera icteric ENT Exam: Positive: Atraumatic Neck Exam: Positive: Supple Chest Exam: Positive: Diminished Heart Exam: Positive: Rate Normal, Regular Rhythm Abdomen Exam: Positive: Normal bowel sounds, Soft; Negative: Tenderness Extremity Exam: Negative: Edema Neuro Exam: Positive: Cranial Nerves 3-12 NL Psych Exam: Positive: Mental status NL, Mood NL Assessment /Plan Assessment Mrs. Acosta is a 75 year old female with CAD s/p CABG and ESRD on dialysis MWF who presents with upper abdominal pain and exertional dyspnea. CT of the abdomen pelvis suggestive of possible fistula. General surgery consulted, recommendations appreciated. Otherwise, patient also to Zosyn and vancomycin. With addition of Zosyn, will cover for intra-abdominal organisms. Pending clinical improvement Otherwise, patient had a fever of 102.4 on 12/14/2020. Blood culture repeated, pending results. Antibiotics escalated from ceftriaxone and doxycycline to Zos yn and Vanco. Patient had another fever again on 12/16/2020 and on 12/17/2020. CT abdomen pelvis was negative for occult abscess. We will restart doxycycline for atypical coverage. Plan/VTE VTE Prophylaxis Ordered?: Yes Plan 1. End-stage renal disease Continue dialysis on Monday 2. Acute decompensated heart failure with combined systolic and diastolic dysfunction Echocardiogram from 03/31/2020 demonstrates EF of 40%, grade 2 diastolic dysfunction Continue with dialysis Continue with I's and O's and daily weights 3. Possible intra-abdominal fistula Seen on CT of the abdomen pelvis General surgery consulted, recommendations appreciated. General surgery suggests that the presence of a fistula is highly unlikely. Continue Zosyn 4. Multifocal pneumonia Continue with Zosyn day 4 Start doxycycline day 1 MRSA PCR was negative -Procalcitonin, ESR, and CRP elevated 5. Constipation Continue bowel regimen 6. DM type II Continue sliding scale insulin 7. Shoulder pain Continue lidocaine patch 8. Hypertension Continue amlodipine, hydralazine, and Coreg 9. CAD status post CABG Continue with aspirin and Coreg 10. DVT prophylaxis Heparin Disposition: Pending clinical improvement VS, I&O, 24H, Fishbone Vital Signs/I&O Vital Signs Date Time Temp Pulse Resp B/P (MAP) Pulse Ox O2 Delivery O2 Flow Rate FiO2 12/18/20 14:00 98.0 76 17 140/80 (100) 98 Room Air 12/18/20 09:03 1.0 I&O- Last 24 Hours up to 6 AM 12/18/20 06:00 Intake Total 1010 ml Balance 1010 ml Laboratory Data 24H LABS Laboratory Tests 2 12/17/20 17:25: Bedside Glucose (Misc Panel) 127H 12/17/20 20:02: Bedside Glucose (Misc Panel) 109 12/18/20 07:42: Bedside Glucose (Misc Panel) 150H 12/18/20 11:55: Nucleated Red Blood Cells % (auto) 0.0, Anion Gap 9, Glomerular Filtration Rate 4.8L, Calcium Level 8.2L CBC/BMP Laboratory Tests 12/18/20 11:55 Microbiology Microbiology 12/14/20 Blood Culture - Preliminary, Resulted No Growth after 72 hours. All specime... 12/14/20 Respiratory Virus Panel (PCR) ([facility]) - Final, Complete Respiratory Syncytial Virus 12/10/20 Blood Culture - Final, Complete NO GROWTH AFTER 5 DAYS 12/10/20 Blood Culture - Final, Complete NO GROWTH AFTER 5 DAYS HADLEY HUANG DO Dec 18, 2020 17:09
[2020-12-18] MEDS: ACETAMINOPHEN TAB 650MG DOSE (2X325MG) PO PRN (18:38)
[2020-12-18 19:41] VITALS: BP 138/62
[2020-12-18] MEDS ORDERED: ACETAMINOPHEN 325 MG TAB PO ONE (20:15)
[2020-12-18] MEDS: guaiFENesin DM *SUGAR FREE* 5ML**DIABETIC TUSSIN DM PO PRN (20:48)
[2020-12-18] MEDS: traZODone 25MG PER 1/2 TABLET PO SCH (20:48)
[2020-12-18] MEDS: OMEPRAZOLE 20 MG CAP PO SCH (20:48)
[2020-12-19 00:09] VITALS: BP 146/91
[2020-12-19 04:56] VITALS: BP 152/75
[2020-12-19] MEDS: PIPERACILLIN/TAZOBACTAM SOD 2.25 GM in D5W MINI-BAG PLUS 50 ML IV SCH ×3 (05:13→21:41)
[2020-12-19] MEDS: guaiFENesin DM *SUGAR FREE* 5ML**DIABETIC TUSSIN DM PO PRN (05:13)
[2020-12-19 05:54] VITALS: O2SAT 100
[2020-12-19 07:16] LABS: HEMOGLOBIN 8.9 g/dl (12.0-15.5); MEAN CORPUSCULAR HEMOGLOBIN 27.3 pg (27.0-33.0); MEAN CORPUSCULAR HGB CONC 29.7 g/dl (32.0-36.5); PLATELET COUNT, AUTOMATED 115 10^3/uL (150-450); RED BLOOD COUNT 3.26 10^6/uL (4.00-5.40); WHITE BLOOD COUNT 4.5 10^3/uL (4.0-10.0)
[2020-12-19 07:30] LABS: CALCIUM LEVEL 8.2 MG/DL (8.8-10.2); CREATININE FOR GFR 5.92 MG/DL (0.55-1.30); GLOMERULAR FILTRATION RATE 7.4 (>39); POTASSIUM SERUM 4.2 MEQ/L (3.5-5.1)
[2020-12-19] MEDS: HumaLOG INSULIN (NovoLOG) PER UNIT SC SCH ×4 (07:30→21:00)
[2020-12-19] MEDS: COMBIVENT RESPIMAT 100-20MCG INHALER 4GM INH SCH ×3 (08:09→20:00)
[2020-12-19] MEDS: SENNA 8.6 MG TAB (SENOKOT) PO SCH ×2 (09:00→21:00)
[2020-12-19] MEDS: DOCUSATE SODIUM 100MG CAPSULE PO SCH ×2 (09:00→21:00)
[2020-12-19] MEDS: CO-ENZYME Q10 50 MG CAP PO SCH (09:36)
[2020-12-19] MEDS: ASPIRIN 81MG ENTERIC TABLET PO SCH (09:37)
[2020-12-19] MEDS: BENZONATATE 100MG CAPSULE PO SCH ×3 (09:37→21:41)
[2020-12-19] MEDS: (RENVELA) SEVELAMER **CARBONate** 800 MG TAB PO SCH ×3 (09:38→18:00)
[2020-12-19] MEDS: amLODIPine 5 MG TAB PO SCH (09:38)
[2020-12-19] MEDS: MULTIVITAMINS/MINERALS THERAP 1 TAB PO SCH (09:39)
[2020-12-19] MEDS: CARVedilol 12.5 MG TAB PO SCH (09:39)
[2020-12-19] MEDS: **hydrALAZINE HCL** 25 MG TAB PO SCH ×2 (09:39→21:38)
[2020-12-19 10:00] VITALS: BP 129/55
[2020-12-19] MEDS: DOXYCYCLINE HYCLATE 100 MG in D5W MINI-BAG PLUS 100 ML IV SCH ×2 (11:26→23:28)
[2020-12-19 14:00] VITALS: BP 124/50
[2020-12-19 14:14] LABS: MYCOPLASMA PNEUMONIAE IgG 793 U/mL (0-99); MYCOPLASMA PNEUMONIAE IgM <770 U/mL (0-769)
--- NOTE | 2020-12-19 14:52 | IPN ---
PROGRESS NOTE DATE: 12/19/2020 Ms. Acosta is seen on her bedside this morning. She is feeling better; however, nursing staff reports that when she came back from dialysis yesterday she was febrile and shivering. Her temperature was up to 102.8 degrees Fahrenheit last night. Blood cultures have been negative so far. PHYSICAL EXAMINATION: At present her temperature is 98.2 degrees Fahrenheit, heart rate 76 per minute, respiratory rate 18 per minute, blood pressure 141/59 mmHg, and oxygen saturation 100% on 2 liters oxygen. Head is atraumatic. Neck supple, and jugular venous distention (JVD) or thyroid enlargement. Her heart sounds are regular and lungs with slightly diminished breath sounds at left base. Abdomen soft and nontender, and bowel sounds are normal. Extremities without any cyanosis or clubbing. Left arm arteriovenous (AV) fistula is patent. She has swelling at the medial side in her AV fistula from dialysis. She has buttonholes in her AV fistula, and the distal buttonhole seems to be infected. She is currently receiving intravenous (IV) antibiotics through peripheral IV line in her foot due to lack of a peripheral access. Today's labs show WBC count 4.5, hemoglobin 8.9, and hematocrit 30. Platelets 115. Sodium 139, potassium 4.2, BUN 20, and creatinine 5.92. Lactic acid level 0.9 and calcium 8.2. PROBLEMS: 1. Recurrent fever, most likely related to infected buttonhole in her left arm AV fistula. We will not use the buttonholes anymore and will use sharp needle for next dialysis. We will apply Bactroban ointment to her needle site. Her blood cultures have been negative so far, and she is on Zosyn and doxycycline. 2. Hypertension. Blood pressure seems very well controlled on current medications, including amlodipine and carvedilol. Her volume status is well compensated. 3. Anemia. This is related to end-stage renal disease, and she will continue to receive once a week Aranesp. Most likely ongoing infection is also contributing to her anemia. 4. Congestive heart failure. Volume status is very well compensated at present, and we will continue to manage it with dialysis. 5. End-stage renal disease. Patient was dialyzed yesterday and will be scheduled for next dialysis on Monday.
[2020-12-19] MEDS: MUPIROCIN 2% OINT 22 GM TUBE TOP SCH ×2 (15:16→23:28)
--- NOTE | 2020-12-19 20:00 | IPNPDOC ---
Subjective Date Seen The patient was seen on 12/19/20. Subjective Chief Complaint/HPI Mrs. Acosta is a 75 year old female with CAD s/p CABG and ESRD on dialysis MWF who presents with upper abdominal pain and exertional dyspnea. Patient was seen in the morning. Denies any chest pain or shortness of breath. Last documented fever was on 12/18/2020 at 1941 Objective Physical Examination General Exam: Positive: Alert, Cooperative Eye Exam: Positive: EOMI; Negative: Sclera icteric ENT Exam: Positive: Atraumatic Neck Exam: Positive: Supple Chest Exam: Positive: Diminished Heart Exam: Positive: Rate Normal, Regular Rhythm Abdomen Exam: Positive: Normal bowel sounds, Soft; Negative: Tenderness Extremity Exam: Negative: Edema Neuro Exam: Positive: Cranial Nerves 3-12 NL Psych Exam: Positive: Mental status NL, Mood NL Assessment /Plan Assessment Mrs. Acosta is a 75 year old female with CAD s/p CABG and ESRD on dialysis MWF who presents with upper abdominal pain and exertional dyspnea. CT of the abdomen pelvis suggestive of possible fistula. General surgery consulted, recommendations appreciated. Otherwise, patient also to Zosyn and vancomycin. With addition of Zosyn, will cover for intra-abdominal organisms. Pending clinical improvement Otherwise, patient had a fever of 102.4 on 12/14/2020. Blood culture repeated, pending results. Antibiotics escalated from ceftriaxone and doxycycline to Zosyn and Vanco. Patient had another fever again on 12/16/2020 and on 12/17/2020. CT abdomen pelvis was negative for occult abscess. We will restart doxycycline for atypical coverage. Per nephrology's note, patient recurrent fever may be secondary to infected buttonhole in her left arm AV fistula. They have started Bactroban ointment to her needle site. Plan/VTE VTE Prophylaxis Ordered?: Yes Plan 1. End-stage renal disease Continue dialysis on Monday 2. Acute decompensated heart failure with combined systolic and diastolic dysfunction Echocardiogram from 03/31/2020 demonstrates EF of 40%, grade 2 diastolic dysfunction Continue with dialysis Continue with I's and O's and daily weights 3. Possible intra-abdominal fistula Seen on CT of the abdomen pelvis General surgery consulted, recommendations appreciated. General surgery sug gests that the presence of a fistula is highly unlikely. Continue Zosyn 4. Multifocal pneumonia Continue with Zosyn day 5 Start doxycycline day 2 MRSA PCR was negative -Procalcitonin, ESR, and CRP elevated 5. Constipation Continue bowel regimen 6. DM type II Continue sliding scale insulin 7. Shoulder pain Continue lidocaine patch 8. Hypertension Continue amlodipine, hydralazine, and Coreg 9. CAD status post CABG Continue with aspirin and Coreg 10. DVT prophylaxis Heparin Disposition: Pending clinical improvement VS, I&O, 24H, Fishbone Vital Signs/I&O Vital Signs Date Time Temp Pulse Resp B/P (MAP) Pulse Ox O2 Delivery O2 Flow Rate FiO2 12/19/20 14:00 98.5 78 17 124/50 (74) 99 Nasal Cannula 2.0 I&O- Last 24 Hours up to 6 AM 12/19/20 06:00 Intake Total 370 ml Output Total 1000 ml Balance -630 ml Laboratory Data 24H LABS Laboratory Tests 2 12/18/20 20:11: Bedside Glucose (Misc Panel) 287H 12/19/20 06:32: Bedside Glucose (Misc Panel) 132H 12/19/20 06:54: Nucleated Red Blood Cells % (auto) 0.0, Anion Gap 7L, Glomerular Filtration Rate 7.4L, Lactic Acid Level 0.9, Calcium Level 8.2L 12/19/20 12:14: Bedside Glucose (Misc Panel) 235H 12/19/20 16:49: Bedside Glucose (Misc Panel) 151H CBC/BMP Laboratory Tests 12/19/20 06:54 Microbiology Microbiology 12/19/20 Blood Culture, Received Pending 12/14/20 Blood Culture - Preliminary, Resulted No Growth after 72 hours. All specime... 12/14/20 Respiratory Virus Panel (PCR) ([facility]) - Final, Complete Respiratory Syncytial Virus 12/10/20 Blood Culture - Final, Complete NO GROWTH AFTER 5 DAYS 12/10/20 Blood Culture - Final, Complete NO GROWTH AFTER 5 DAYS HADLEY HUANG DO Dec 19, 2020 20:00
[2020-12-19] MEDS: OMEPRAZOLE 20 MG CAP PO SCH (21:38)
[2020-12-19] MEDS: traZODone 25MG PER 1/2 TABLET PO SCH (21:38)
[2020-12-19 22:00] VITALS: BP 152/71
[2020-12-20] VITALS (7 sets, daily range): BP systolic 123–166; BP diastolic 51–73; O2SAT 94–100
[2020-12-20] MEDS: PIPERACILLIN/TAZOBACTAM SOD 2.25 GM in D5W MINI-BAG PLUS 50 ML IV SCH (06:27)
[2020-12-20] MEDS: guaiFENesin DM *SUGAR FREE* 5ML**DIABETIC TUSSIN DM PO PRN ×2 (06:28→21:29)
[2020-12-20 06:47] LABS: HEMATOCRIT 30.3 % (36.0-47.0); HEMOGLOBIN 8.9 g/dl (12.0-15.5); MEAN CORPUSCULAR HEMOGLOBIN 27.2 pg (27.0-33.0); MEAN CORPUSCULAR HGB CONC 29.4 g/dl (32.0-36.5); MEAN CORPUSCULAR VOLUME 92.7 fl (80.0-96.0); PLATELET COUNT, AUTOMATED 147 10^3/uL (150-450); RED BLOOD COUNT 3.27 10^6/uL (4.00-5.40); WHITE BLOOD COUNT 4.8 10^3/uL (4.0-10.0)
[2020-12-20 07:14] LABS: CALCIUM LEVEL 8.3 MG/DL (8.8-10.2); CREATININE FOR GFR 7.55 MG/DL (0.55-1.30); GLOMERULAR FILTRATION RATE 5.6 (>39)
[2020-12-20] MEDS: HumaLOG INSULIN (NovoLOG) PER UNIT SC SCH ×4 (07:30→21:00)
[2020-12-20] MEDS: COMBIVENT RESPIMAT 100-20MCG INHALER 4GM INH SCH ×3 (08:00→19:43)
[2020-12-20] MEDS: DOCUSATE SODIUM 100MG CAPSULE PO SCH ×2 (09:00→21:00)
[2020-12-20] MEDS: SENNA 8.6 MG TAB (SENOKOT) PO SCH ×2 (09:00→21:00)
[2020-12-20] MEDS: ASPIRIN 81MG ENTERIC TABLET PO SCH (10:01)
[2020-12-20] MEDS: CO-ENZYME Q10 50 MG CAP PO SCH (10:01)
[2020-12-20] MEDS: (RENVELA) SEVELAMER **CARBONate** 800 MG TAB PO SCH ×3 (10:03→18:05)
[2020-12-20] MEDS: **hydrALAZINE HCL** 25 MG TAB PO SCH ×2 (10:03→21:29)
[2020-12-20] MEDS: BENZONATATE 100MG CAPSULE PO SCH ×3 (10:03→21:29)
[2020-12-20] MEDS: CARVedilol 12.5 MG TAB PO SCH (10:04)
[2020-12-20] MEDS: amLODIPine 5 MG TAB PO SCH (10:04)
[2020-12-20] MEDS: MULTIVITAMINS/MINERALS THERAP 1 TAB PO SCH (10:04)
[2020-12-20] MEDS: MUPIROCIN 2% OINT 22 GM TUBE TOP SCH ×2 (10:05→21:29)
[2020-12-20] MEDS: DOXYCYCLINE HYCLATE 100 MG in D5W MINI-BAG PLUS 100 ML IV SCH (10:41)
[2020-12-20] MEDS: IBUPROFEN 200MG TAB PO PRN (13:22)
--- NOTE | 2020-12-20 15:40 | IPNPDOC ---
Subjective Date Seen The patient was seen on 12/20/20. Subjective Chief Complaint/HPI Mrs. Acosta is a 75 year old female with CAD s/p CABG and ESRD on dialysis MWF who presents with upper abdominal pain and exertional dyspnea. This morning, patient denied any chest pain or dyspnea. Patient reported severe pain from her foot IV. We will discontinue IV Zosyn and doxycycline and start p.o. Augmentin and doxycycline while waiting for PICC placement on Monday. Last high temperature was on 12/18/2020 at 1941. She had a low-grade temp of 100.1 on 12/19/2020 at 2145 Objective Physical Examination General Exam: Positive: Alert, Cooperative Eye Exam: Positive: EOMI; Negative: Sclera icteric ENT Exam: Positive: Atraumatic Neck Exam: Positive: Supple Chest Exam: Positive: Diminished Heart Exam: Positive: Rate Normal, Regular Rhythm Abdomen Exam: Positive: Normal bowel sounds, Soft; Negative: Tenderness Extremity Exam: Negative: Edema Neuro Exam: Positive: Cranial Nerves 3-12 NL Psych Exam: Positive: Mental status NL, Mood NL Assessment /Plan Assessment Mrs. Acosta is a 75 year old female with CAD s/p CABG and ESRD on dialysis [facility] F who presents with upper abdominal pain and exertional dyspnea. CT of the abdomen pelvis suggestive of possible fistula. General surgery consulted, recommendations appreciated. Otherwise, patient also to Zosyn and vancomycin. With addition of Zosyn, will cover for intra-abdominal organisms. Pending clinical improvement Otherwise, patient had a fever of 102.4 on 12/14/2020. Blood culture repeated, pending results. Antibiotics escalated from ceftriaxone and doxycycline to Zosyn and Vanco. Patient had another fever again on 12/16/2020 and on 12/17/2020. CT abdomen pelvis was negative for occult abscess. We will restart doxycycline for atypical coverage. Per nephrology's note, patient recurrent fever may be secondary to infected buttonhole in her left arm AV fistula. They have started Bactroban ointment to her needle site. Plan/VTE VTE Prophylaxis Ordered?: Yes Plan 1. End-stage renal disease Continue dialysis on Monday 2. Acute decompensated heart failure with combined systolic and diastolic dys function Echocardiogram from 03/31/2020 demonstrates EF of 40%, grade 2 diastolic dysfunction Continue with dialysis Continue with I's and O's and daily weights 3. Possible intra-abdominal fistula Seen on CT of the abdomen pelvis General surgery consulted, recommendations appreciated. General surgery suggests that the presence of a fistula is highly unlikely. Continue antibiotic 4. Multifocal pneumonia Patient's foot IV cannot be used. We will use temporary p.o. antibiotics until PICC line can be placed Continue with Zosyn day 5. Zosyn on hold, temporary p.o. Augmentin. Start doxycycline day 3 MRSA PCR was negative -Procalcitonin, ESR, and CRP elevated 5. Constipation Continue bowel regimen 6. DM type II Continue sliding scale insulin 7. Shoulder pain Continue lidocaine patch 8. Hypertension Continue amlodipine, hydralazine, and Coreg 9. CAD status post CABG Continue with aspirin and Coreg 10. DVT prophylaxis Heparin Disposition: Pending clinical improvement VS, I&O, 24H, Fishbone Vital Signs/I&O Vital Signs Date Time Temp Pulse Resp B/P (MAP) Pulse Ox O2 Delivery O2 Flow Rate FiO2 12/20/20 10:03 144/68 12/20/20 10:00 98.4 85 16 86 Nasal Cannula 2.0 I&O- Last 24 Hours up to 6 AM 12/20/20 06:00 Intake Total 1040 ml Output Total 0 ml Balance 1040 ml Laboratory Data 24H LABS Laboratory Tests 2 12/19/20 16:49: Bedside Glucose (Misc Panel) 151H 12/19/20 20:19: Bedside Glucose (Misc Panel) 93 12/20/20 05:28: Nucleated Red Blood Cells % (auto) 0.4H, Anion Gap 7L, Glomerular Filtration Rate 5.6L, Calcium Level 8.3L 12/20/20 12:05: Bedside Glucose (Misc Panel) 197H CBC/BMP Laboratory Tests 12/20/20 05:28 Microbiology Microbiology 12/19/20 Blood Culture - Preliminary, Resulted No growth after 24 hours . All specim... 12/14/20 Blood Culture - Final, Complete NO GROWTH AFTER 5 DAYS 12/14/20 Respiratory Virus Panel (PCR) ([facility]) - Final, Complete Respiratory Syncytial Virus 12/10/20 Blood Culture - Final, Complete NO GROWTH AFTER 5 DAYS 12/10/20 Blood Culture - Final, Complete NO GROWTH AFTER 5 DAYS HADLEY HUANG DO Dec 20, 2020 15:40
--- NOTE | 2020-12-20 17:06 | IPN ---
NEPHROLOGY PROGRESS NOTE DATE: 12/20/2020 SUBJECTIVE: Mrs. Acosta is seen this morning at her bedside. She is feeling better today and reports that her energy and strength feel better. She denies any fever, chills, dyspnea or chest pain. OBJECTIVE: PHYSICAL EXAMINATION: VITAL SIGNS: Temperature 98.4 degrees Fahrenheit, heart rate 84 per minute, respiratory rate 16 per minute, blood pressure 123/50 mm of mercury and oxygen saturation is 86% and up to 94% on 2 liters oxygen. HEENT: Her head is atraumatic. NECK: Supple and without JVD or thyroid enlargement. HEART: Sounds are regular. LUNGS: Clear to auscultation. ABDOMEN: Soft and nontender and bowel sounds are normal. EXTREMITIES: Without any cyanosis or clubbing. Left upper arm AV fistula is patent. She has a dressing on the infected button hole in her AV fistula site. NEUROLOGICAL: She is at her baseline mentation without any focal deficits. LABORATORY STUDIES: Today's labs show a WBC count of 4.8, hemoglobin 8.9 and hematocrit 30.3, platelet count 147. Sodium 140, potassium 4.0, CO2 28, BUN 28 and creatinine 7.55. Glucose 131, calcium 8.3. PROBLEMS: 1. End-stage renal disease - The patient has been dialyzed on a Monday, Monday and Monday schedule. She was last dialyzed on Monday and is scheduled for next dialysis tomorrow. We will not use her button hole due to infection and will use a different site for her renal placement. 2. Fever and recurrent chills she had most likely infected needle site at her AV fistula. We will use a new site now and continue with the antibiotics for now. She is now on Augmentin instead of intravenous medications. She is on Augmentin and Doxycycline. 3. Anemia her anemia is stable and we will continue to manage with dialysis. She receives once a week Aranesp. 4. Congestive heart failure volume status is well compensated and maintained with dialysis. 5. Hypertension - blood pressure is very well controlled and no changes are being made today.
[2020-12-20] MEDS: AUGMENTIN 500 MG TAB PO SCH (21:29)
[2020-12-20] MEDS: DOXYCYCLINE HYCLATE 100MG TABLET PO SCH (21:29)
[2020-12-20] MEDS: traZODone 25MG PER 1/2 TABLET PO SCH (21:29)
[2020-12-20] MEDS: OMEPRAZOLE 20 MG CAP PO SCH (21:29)
[2020-12-21] VITALS (7 sets, daily range): BP systolic 140–166; BP diastolic 62–80; O2SAT 98
[2020-12-21] MEDS: VANICREAM MOISTURIZING SKIN CREAM 113GM TUBE TOP PRN (00:23)
[2020-12-21] MEDS: DOCUSATE SODIUM 100MG CAPSULE PO SCH ×2 (06:47→21:00)
[2020-12-21] MEDS: SENNA 8.6 MG TAB (SENOKOT) PO SCH ×2 (06:48→21:00)
[2020-12-21] MEDS: ASPIRIN 81MG ENTERIC TABLET PO SCH (06:53)
[2020-12-21] MEDS: AUGMENTIN 500 MG TAB PO SCH (06:53)
[2020-12-21] MEDS: guaiFENesin DM *SUGAR FREE* 5ML**DIABETIC TUSSIN DM PO PRN ×2 (06:53→21:40)
[2020-12-21] MEDS: BENZONATATE 100MG CAPSULE PO SCH ×3 (06:53→21:40)
[2020-12-21] MEDS: CO-ENZYME Q10 50 MG CAP PO SCH (06:53)
[2020-12-21] MEDS: **hydrALAZINE HCL** 25 MG TAB PO SCH ×2 (06:54→21:39)
[2020-12-21] MEDS: MULTIVITAMINS/MINERALS THERAP 1 TAB PO SCH (06:54)
[2020-12-21] MEDS: DOXYCYCLINE HYCLATE 100MG TABLET PO SCH (06:54)
[2020-12-21] MEDS: amLODIPine 5 MG TAB PO SCH (06:55)
[2020-12-21] MEDS: CARVedilol 12.5 MG TAB PO SCH (06:55)
[2020-12-21] MEDS: (RENVELA) SEVELAMER **CARBONate** 800 MG TAB PO SCH ×3 (07:31→17:51)
[2020-12-21] MEDS: HumaLOG INSULIN (NovoLOG) PER UNIT SC SCH ×4 (07:33→21:40)
[2020-12-21] MEDS: MUPIROCIN 2% OINT 22 GM TUBE TOP SCH ×2 (07:35→23:55)
[2020-12-21] MEDS: COMBIVENT RESPIMAT 100-20MCG INHALER 4GM INH SCH ×3 (07:38→19:30)
[2020-12-21 09:08] LABS: HEMATOCRIT 29.1 % (36.0-47.0); HEMOGLOBIN 8.6 g/dl (12.0-15.5); MEAN CORPUSCULAR HEMOGLOBIN 27.1 pg (27.0-33.0); MEAN CORPUSCULAR HGB CONC 29.6 g/dl (32.0-36.5); MEAN CORPUSCULAR VOLUME 91.8 fl (80.0-96.0); PLATELET COUNT, AUTOMATED 160 10^3/uL (150-450); RED BLOOD COUNT 3.17 10^6/uL (4.00-5.40)
[2020-12-21] MEDS: DARBEPOETIN 100 MCG/0.5 ML *DIALYSIS* SYRINGE (J0882) IV SCH (09:36)
[2020-12-21 09:37] LABS: C REACTIVE PROTEIN QUANTITATIV 0.89 MG/DL (0.00-0.30); CREATININE FOR GFR 9.64 MG/DL (0.55-1.30); GLOMERULAR FILTRATION RATE 4.2 (>39); POTASSIUM SERUM 3.8 MEQ/L (3.5-5.1)
[2020-12-21 09:39] LABS: ERYTHROCYTE SEDIMENTATION RATE 50 mm/hr (0-30)
--- NOTE | 2020-12-21 12:48 | IPN ---
PROGRESS NOTE DATE: 12/21/2020 SUBJECTIVE: Mrs. Acosta is seen this morning on her bedside during dialysis. She is feeling better and tolerating dialysis well. She denies any nausea, vomiting, dyspnea or chest pain. OBJECTIVE: VITAL SIGNS: Temperature is 98.7 degrees Fahrenheit, heart rate is 80 per minute and respiratory rate is 18 per minute. Blood pressure is 166/80 mmHg this morning prior to dialysis, now her blood pressure has come down to 130/76 mmHg. Oxygen saturation 100% on 2 liters of oxygen. HEENT: Head is atraumatic. NECK: Supple without JVD or thyroid enlargement. HEART: Heart sounds are regular. LUNGS: Clear to auscultation. ABDOMEN: Soft and nontender. Bowel sounds are normal. EXTREMITIES: Without any cyanosis or clubbing. Left arm AV fistula is working well and currently being used for dialysis. LABORATORY DATA: Today's labs shows a WBC of 6.0, hemoglobin is 8.6 and hematocrit 29, platelets are 160,000. Sodium is 140, potassium is 3.8, CO2 26, BUN 40, creatinine 9.64, glucose is 180 and calcium is 8.0. C-reactive protein has come down to 0.89. PROBLEMS: 1. Endstage renal disease, patient is currently being dialyzed and tolerating her dialysis well. Today, we are using a sharp needle in her AV fistula due to infected button hole. 2. Anemia, her anemia is stable and she continues to receive weekly dose of Aranesp. 3. Fever, this is most likely related to infected AV fistula needle hole site and likely to resolve now as we have stopped using the button hole. She is currently on Augmentin and Doxycycline. 4. Generalized weakness and deconditioning. Patient is likely to require rehab before discharge.
[2020-12-21] MEDS ORDERED: LIDOCAINE 1% MDV 20ML VIAL As Ordered ONE (15:21)
--- NOTE | 2020-12-21 20:25 | IPNPDOC ---
Subjective Date Seen The patient was seen on 12/21/20. Subjective Chief Complaint/HPI Mrs. Acosta is a 75 year old female with CAD s/p CABG and ESRD on dialysis MWF who presents with upper abdominal pain and exertional dyspnea. This morning, she was seen in dialysis. Denied any chest pain or dyspnea. Patient was put on PO Augmentin and PO Doxycycline due to no IV access. Now that PICC has been placed, will restart IV antibiotics. Objective Physical Examination General Exam: Positive: Alert, Cooperative Eye Exam: Positive: EOMI; Negative: Sclera icteric ENT Exam: Positive: Atraumatic Neck Exam: Positive: Supple Chest Exam: Positive: Diminished Heart Exam: Positive: Rate Normal, Regular Rhythm Abdomen Exam: Positive: Normal bowel sounds, Soft; Negative: Tenderness Extremity Exam: Negative: Edema Neuro Exam: Positive: Cranial Nerves 3-12 NL Psych Exam: Positive: Mental status NL, Mood NL Assessment /Plan Assessment Mrs. Acosta is a 75 year old female with CAD s/p CABG and ESRD on dialysis MWF who presents with upper abdominal pain and exertional dyspnea. CT of the abdomen pelvis suggestive of possible fistula. General surgery consulted, recommendations appreciated. Otherwise, patient also to Zosyn and vancomycin. With addition of Zosyn, will cover for intra-abdominal organisms. Vancomycin was discontinued as MRSA PCR negative. Pending clinical improvement Otherwise, patient had a fever of 102.4 on 12/14/2020. Blood culture repeated, pending results. Antibiotics escalated from ceftriaxone and doxycycline to Zosy n and Vanco. Patient had another fever again on 12/16/2020 and on 12/17/2020. CT abdomen pelvis was negative for occult abscess. We will restart doxycycline for atypical coverage. Despite atypical coverage, patient continue to have fever (12/18/2020 Temp 102.8) and low grade temp (12/19/2020 Temp 100.1). Per nephrology's note, patient recurrent fever may be secondary to infected buttonhole in her left arm AV fistula. They have started Bactroban ointment to her needle site and stopped using the buttonhole. Plan/VTE VTE Prophylaxis Ordered?: Yes Plan 1. End-stage renal disease Continue dialysis on Monday 2. Acute decompensated heart failure with combined systolic and diastolic dysfunction Echocardiogram from 03/31/2020 demonstrates EF of 40%, grade 2 diastolic dysfunction Continue with dialysis Continue with I's and O's and daily weights 3. Possible intra-abdominal fistula Seen on CT of the abdomen pelvis General surgery consulted, recommendations appreciated. General surgery suggests that the presence of a fistula is highly unlikely. Continue antibiotic 4. Multifocal pneumonia Patient's foot IV cannot be used. We will use temporary p.o. antibiotics until PICC line can be placed Continue with Zosyn day 6. Start doxycycline day 4 MRSA PCR was negative -Repeat procalcitonin elevated (3.04), but now downtrending (2.48) 5. Constipation Continue bowel regimen 6. DM type II Continue sliding scale insulin 7. Shoulder pain Continue lidocaine patch 8. Hypertension Continue amlodipine, hydralazine, and Coreg 9. CAD status post CABG Continue with aspirin and Coreg 10. DVT prophylaxis Heparin Disposition: Pending clinical improvement VS, I&O, 24H, Fishbone Vital Signs/I&O Vital Signs Date Time Temp Pulse Resp B/P (MAP) Pulse Ox O2 Delivery O2 Flow Rate FiO2 12/21/20 06:55 85 12/21/20 06:54 166/80 12/21/20 06:00 98.7 18 100 Nasal Cannula 2.0 I&O- Last 24 Hours up to 6 AM 12/21/20 06:00 Intake Total 890 ml Balance 890 ml Laboratory Data 24H LABS Laboratory Tests 2 12/20/20 16:34: Bedside Glucose (Misc Panel) 259H 12/20/20 19:52: Bedside Glucose (Misc Panel) 180H 12/21/20 05:45: Bedside Glucose (Misc Panel) 150H 12/21/20 08:30: Nucleated Red Blood Cells % (auto) 0.0, Erythrocyte Sedimentation Rate 50H, Anion Gap 8, Glomerular Filtration Rate 4.2L, Calcium Level 8.0L, C-Reactive Protein, Quantitative 0.89H, Procalcitonin 2.48 12/21/20 12:17: Bedside Glucose (Misc Panel) 96 CBC/BMP Laboratory Tests 12/21/20 08:30 Microbiology Microbiology 12/19/20 Blood Culture - Preliminary, Resulted No Growth after 48 hours. All Specime... 12/14/20 Blood Culture - Final, Complete NO GROWTH AFTER 5 DAYS 12/14/20 Respiratory Virus Panel (PCR) ([facility]) - Final, Complete Respiratory Syncytial Virus HADLEY HUANG DO Dec 21, 2020 14:59
[2020-12-21] MEDS: traZODone 25MG PER 1/2 TABLET PO SCH (21:39)
[2020-12-21] MEDS: OMEPRAZOLE 20 MG CAP PO SCH (21:39)
[2020-12-21] MEDS: DOXYCYCLINE HYCLATE 100 MG in D5W MINI-BAG PLUS 100 ML IV SCH (21:40)
[2020-12-21] MEDS: ONDANSETRON 4MG/2ML VIAL IV PRN (21:40)
[2020-12-21] MEDS: ACETAMINOPHEN TAB 650MG DOSE (2X325MG) PO PRN (21:41)
[2020-12-21] MEDS ORDERED: SENNA 8.6 MG TAB (SENOKOT) PO PRN (22:05)
[2020-12-21] MEDS ORDERED: DOCUSATE SODIUM 100MG CAPSULE PO PRN (22:05)
[2020-12-21] MEDS: PIPERACILLIN/TAZOBACTAM SOD 2.25 GM in D5W MINI-BAG PLUS 50 ML IV SCH (23:55)
[2020-12-21] MEDS: SODIUM CHLORIDE 0.9% INJ 10 ML SYR IV PRN (23:55)
[2020-12-22] VITALS (7 sets, daily range): BP systolic 127–162; BP diastolic 58–70; O2SAT 99
[2020-12-22 00:07] LABS: L. PNEUMOPHILA (1,3,4,5,6,8) <0.91 OD ratio (0.00-0.90)
[2020-12-22] MEDS: SODIUM CHLORIDE 0.9% INJ 10 ML SYR IV PRN ×5 (00:53→23:47)
[2020-12-22] MEDS ORDERED: SODIUM CHLORIDE 0.9% INJ 10 ML SYR IV PRN (06:00)
[2020-12-22] MEDS ORDERED: SODIUM CHLORIDE 0.9% INJ 10 ML SYR IV SCH (06:00)
[2020-12-22] MEDS: SODIUM CHLORIDE 0.9% INJ 10 ML SYR IV SCH ×2 (06:01→17:45)
[2020-12-22] MEDS: PIPERACILLIN/TAZOBACTAM SOD 2.25 GM in D5W MINI-BAG PLUS 50 ML IV SCH ×3 (06:02→22:51)
[2020-12-22 06:25] LABS: HEMATOCRIT 31.5 % (36.0-47.0); HEMOGLOBIN 9.4 g/dl (12.0-15.5); MEAN CORPUSCULAR HEMOGLOBIN 27.5 pg (27.0-33.0); MEAN CORPUSCULAR HGB CONC 29.8 g/dl (32.0-36.5); MEAN CORPUSCULAR VOLUME 92.1 fl (80.0-96.0); PLATELET COUNT, AUTOMATED 201 10^3/uL (150-450); RED BLOOD COUNT 3.42 10^6/uL (4.00-5.40); WHITE BLOOD COUNT 6.7 10^3/uL (4.0-10.0)
[2020-12-22 06:52] LABS: CALCIUM LEVEL 8.5 MG/DL (8.8-10.2); CREATININE FOR GFR 6.54 MG/DL (0.55-1.30); GLOMERULAR FILTRATION RATE 6.6 (>39)
[2020-12-22] MEDS: COMBIVENT RESPIMAT 100-20MCG INHALER 4GM INH SCH ×3 (07:17→20:33)
[2020-12-22] MEDS: DOXYCYCLINE HYCLATE 100 MG in D5W MINI-BAG PLUS 100 ML IV SCH ×2 (08:23→20:33)
[2020-12-22] MEDS: LACTOBACILLUS ACIDOPHILUS CAP (BACID) PO SCH ×2 (08:23→17:44)
[2020-12-22] MEDS: MULTIVITAMINS/MINERALS THERAP 1 TAB PO SCH (08:23)
[2020-12-22] MEDS: BENZONATATE 100MG CAPSULE PO SCH ×3 (08:23→20:35)
[2020-12-22] MEDS: ASPIRIN 81MG ENTERIC TABLET PO SCH (08:24)
[2020-12-22] MEDS: HumaLOG INSULIN (NovoLOG) PER UNIT SC SCH ×4 (08:24→20:38)
[2020-12-22] MEDS: (RENVELA) SEVELAMER **CARBONate** 800 MG TAB PO SCH ×3 (08:24→17:44)
[2020-12-22] MEDS: CO-ENZYME Q10 50 MG CAP PO SCH (08:24)
[2020-12-22] MEDS: **hydrALAZINE HCL** 25 MG TAB PO SCH ×2 (08:27→20:37)
[2020-12-22] MEDS: CARVedilol 12.5 MG TAB PO SCH (08:27)
[2020-12-22] MEDS: amLODIPine 5 MG TAB PO SCH (08:27)
[2020-12-22] MEDS: MUPIROCIN 2% OINT 22 GM TUBE TOP SCH ×2 (08:27→20:37)
[2020-12-22] MEDS: guaiFENesin DM *SUGAR FREE* 5ML**DIABETIC TUSSIN DM PO PRN (10:42)
--- NOTE | 2020-12-22 17:37 | REP ---
PROCEDURE NAME: PICC LINE INSERTION W/SITERITE CLINICAL INFORMATION: Poor access. COMPARISON: None. PROCEDURE DESCRIPTION: The procedure was performed by EDER Perales, under the direct supervision of Dr. Tripp. The risks and benefits of the procedure were explained to the patient and an informed consent was obtained both verbally and written. Directly prior to the start of the procedure a formal time-out was completed in the procedure room. The right basilic vein was localized using ultrasound guidance. The skin was prepped and draped in sterile fashion. Five mL of 1% lidocaine 10 mg/mL was used as a local anesthetic. Using ultrasound guidance the right basilic vein was cannulated, and a 0.018 guidewire was inserted and advanced to the level of SVC using fluoroscopic guidance. The needle was removed and a 6 Hungarian dilator and peel-away sheath was inserted over the guidewire. A 6 Hungarian double lumen catheter was cut to a length of 36 cm. The dilator was removed and the catheter was inserted over the guidewire with the tip ending at the level of the SVC. The peel-away sheath was removed and the catheter was flushed with heparinized saline as per hospital protocol. The catheter was affixed to the skin and a sterile dressing was applied. The patient tolerated the procedure well and there were no immediate complications. CONCLUSION: PICC line insertion into the right basilic vein. 0.3 minutes of fluoroscopy time was utilized for this procedure. Some fluoroscopic images are performed with last image hold technology. These images require no additional radiation. <Electronically signed by Lissa Glass > 12/22/20 1454 <Electronically signed by Bebeto Tripp > 12/22/20 1390
--- NOTE | 2020-12-22 19:00 | CR.PDOC ---
General Date of Consultation: Dec 22, 2020 Attending Physician: Charisse Dozier MD Consultation REASON FOR INFECTIOUS DISEASE CONSULTATION: Asked by Dr. Salazar to see Ms. Acosta for a possible AV fistula infection and persistent fever HISTORY OF PRESENT ILLNESS: This is a 75-year-old female with end-stage renal disease on HD Monday, Monday, Monday, admitted due to complaints of fatigue and exertional dyspnea and abdominal pain radiating to the back, found to have multifocal pneumonia and RSV positive during her mid hospital course versus congestive heart failure. Patient is a poor historian but according to her, she reports having had upper abdominal painin the lower ribs (11,12) region that radiates to the back. She reports never having had this type of pain and also reports never having any abdominal pain issues. Her hospital course is as follows: she was admitted for multifocal PNA and was given azithromycin x1 dose on 12/10. Then started on rocephin x3 doses (12/10 to 12/12) and doxycycline IV x4 doses (12/11 to 12/13 ). Patient's peripheral line infiltrated and she was subsequently switched to PO doxy x2 doses (12/13 to 12/14) and cefinir PO x1 dose (12/13). Patient has been afebrile since this point; however, it's noted that she spiked a 102.4 fever on 12/14 and a respiratory panel was ordered and her abx was transitioned to IV zosyn renally dose x 20 doses (12/14 to 12/22) and a dose of IV vanco by overnight hospitalist. Her MRSA PCR was negative and Vanco was d/c'd. Doxycycline IV x5 doses (12/18 to 12/20). She was then switched to PO doxy x2 doses and augmentin PO x2 doses (12/20 to 12/21) and her regimen was changed to IV doxy and zosyn after PICC line placement. It's noted that her initial abd CT without ctx on 12/14 shows mild central spinal stenosis L2-L3. Moderate central spinal stenosis L3-L4. Endplate sclerosis flanking the L3-L4 disc space may be related to age indeterminate prior discitis or degenerative change. A repeat CT abd and pelvis without ctx on 12/17 that was ordered due to persistent fever and to r/o abscess shows at the level of T8-9 there appears to be old discitis at L3-4 with old possibly subacute discitis a T8-9. Infectious disease consulted for persistent fever and possible av fistula infection. ALLERGIES: Please see below. REVIEW OF SYSTEMS: General: Denies fever, shaking chills, unintentional weight loss HEENT: Denies changes in vision including blurry vision or double vision, or hearing loss nasal congestion or sore throat Heart: Denies chest pain or chest pressure or discomfort, or palpitations, or lower extremity edema Pulm: Denies increased cough or sputum production. Did initially present to ER with sob, but denies currently. GI: Denies nausea vomiting diarrhea. Did present to hospital with abdominal pain unable to localize it specifically but does report radiation of abdominal pain to the back bilaterally. Today she reports abdominal pain is much improved from when she first got admitted and denies any back pain today. Denies blood in stool. Psych: Denies sadness or loss of interest in doing things, no thoughts of self- harm or suicidal ideation HOME MEDICATIONS: amlodipine asa carvedilol hydralazine hydroxyzine ibuprofen combivent lidocaine prilocaine cream multivit sevelamer carbonate trazodone coenzyme q10 PAST MEDICAL HISTORY: 1. CAD s/p CABG 2. Ischemic cardiomyopathy 3. HFrEF with EF 35% to 40% 4. 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 Hypertension 6. IDDM type 2 7. Dyslipidemia 8. Spinal stenosis s/p lumbar laminectomy L2, L3, L4 9. ESRD on dialysis MWF 10. Anemia of chronic disease 11. Bilateral bronchiectasis with calcified granulomas with mediastinal lymphadenopathy 12. Chronic pulmonary fibrosis 13. Chronic back pain 14. Debility (uses rolling walker) SURGICAL HISTORY: 1. CABG 2. Lumbar laminectomy of L2 to L4 3. Hysterectomy 4. Fistulogram and dilations of the AVF FAMILY HISTORY: Father: Patient does not know father's PMH Mother: History of ESRD on dialysis SOCIAL HISTORY: Lives at home with Former smoker; denies ETOH or illicit drug use. No use of mirajuana PHYSICAL EXAMINATION: VITAL SIGNS: Please see below. GENERAL: The patient is a well-developed, well-nourished in no apparent distress. AAOx3 NEURO: No focal neurological deficits HEENT: Head is normocephalic and atraumatic. Extraocular muscles are intact. Pupils are equal, round, and reactive to light and accommodation. Nares appears normal. Moist mucous membranes. adentulous. LYMPH: no significant lympadenopathy appreciated. PULM: Diminished breath sounds. No wheezing, rhonchi or rales appreciated. CARDIO: Normal S1, S2. no significant murmurs, gallops, rubs or clicks. No signs of peripheral edema. No JVD appreciated. ABDOMEN: Soft, nontender, and nondistended. Normal bowel sounds. No significant organomegaly appreciated. EXTREMITIES: No cyanosis, clubbing, rash, lesions. MSK: there's normal ROM throughout. There's no tenderness in the Thoracic spine or paraspinal muscles on palpation SKIN: PICC line noted in R arm. There's scarring in front of her chest with keloid from CABG surgery. AV fistula left arm that's patent, with one site with dried blood and covered with band-aids, no pus or drainage. LABORATORY DATA: Please see below. IMAGING: XR chest 12/10 IMPRESSION: Differential diagnosis includes multifocal pneumonia and/or CHF Abd XR 12/12 IMPRESSION: Nonspecific bowel gas pattern. Cardiomegaly with perihilar opacities and suspected left effusion unchanged suggesting multifocal pneumonia, COVID-19 pulmonary disease, and CHF. Head CT 12/14 IMPRESSION:1. There is moderate age related parenchymal volume loss. White matter changes are demonstrated in the subcortical, centrum semiovale and periventricular white matter consistent with chronic age related small vessel ischemic changes. 2. The degree of ventricular dilatation is normal for age and/or degree of atrophy present. 3. There is moderate diffuse cerebellar atrophy. 4. No acute intracranial findings. CT abd/pelvis w/o ctx: IMPRESSION: 1. Bilateral pulmonary infiltrates, right greater than left. Small left pleural effusion. 2. Cardiomegaly. 3. There is increased feces throughout the colon consistent with constipation. Impacted feces in the rectum associated with rectal wall thickening consistent with stercoral colitis. 4. Linear air collection demonstrated at the 6 o'clock position extending posteriorly from the rectal wall towards the mateusz cleft may indicate the presence of a fistula. 5. There has been a hysterectomy XR chest 12/14 IMPRESSION: 1. Bilateral pulmonary infiltrates which have progressed in comparison to the prior examination of 12/12/2020. 2. Blunting of both costophrenic angles may indicate pleural effusions. CT abd pelvis w/o ctx 12/17 IMPRESSION: 1. Abnormal lung bases as described above. Likely pneumonia and a left pleural effusion. 2. No evidence of acute intra-abdominal or intrapelvic disease with findings and limitations as described above. 3. Chronic osseous changes as described above. There appears to be old discitis at L3-4 with old possibly subacute discitis a T8-9 as described above. MICROBIOLOGY: BLOOD CULTURES: 12/10/20 NO GROWTH AFTER 5 DAYS 12/14/20 blood cluture no growrth after 5 days 12/19 blood culture - no growth after 72 hours 12/14/20 Respiratory panel : RSV positive IMPRESSION: Thoracic pain- Patient presented initially to [facility] ER with complaints of abdominal pain with radiation to the back bilaterally however, she is unable to localize the pain or describe the pain very well. However, she's been afebrile until 12/14 and she was tested pos for RSV and she does have an AV fistula site in her left arm which was thought to be a possible source of infection although patient did not report pus drainage out from it. Her recent CT abd/pelv w/ IV ctx shows findings showing possible T8-9 discitis (subacute) which could explain her back pain initially. There's a possiblity that that the AV fistula infection could have had a metastatic seeding and it manifested in the back pain; however, she was covered during her entire hospital course with multiple abx to cover for organisms including gram neg, gram pos including staph aureus, and anaerobes for her RSV PNA vs bacterial PNA given her elevated procalcitonin, although Procalitonin may not be accurate in ESRD patients on HD and we do not know what patient's baseline procal is. Pulmonary infiltrate likely due to RSV PNA vs congestive heart failure. Her fever is likely 2/2 to RSV PNA. She's fluid compensated on exam today. Patient, of note is not known to be very complaint with her medications. She's ESRD on HD with 2 L fluid removal on Monday. She's currently not short of breath and saturates well on 2L NC. We will not make any changes to her current abx regimen. ESRD on HD- patient was admitted with cc of sob as well and is a patient known to Dr. Simeon and does HD MWF. She was dialyzed last on Monday with 2L fluid removal. She's been consistently saturatting above 02% on 2L NC. Her AV fistula site was examined and no signs of pus. PLAN: Acute manifestations of discitis from metastatic seeding may not present immediately, so we will order for a CT thoracic with IV contrast to be done before her HD tomorrow with neprhology for further investigation. Will also repeat for another ESR and CRP. If this is discitis, ESR and CRP should not trend down significantly. C/w with current abx regimen in the meantime. Thank you for this consultation Vital Signs/I&O Vital Signs Date Time Temp Pulse Resp B/P (MAP) Pulse Ox O2 Delivery O2 Flow Rate FiO2 12/22/20 18:00 97.9 85 19 138/67 (90) 96 Nasal Cannula 2.0 I&O- Last 24 Hours up to 6 AM 12/22/20 06:00 Intake Total 1090 ml Output Total 2000 ml Balance -910 ml Laboratory Data Labs 24H Laboratory Tests 2 12/21/20 20:24: Bedside Glucose (Misc Panel) 272H 12/22/20 06:10: Nucleated Red Blood Cells % (auto) 0.3H, Anion Gap 7L, Glomerular Filtration Rate 6.6L, Calcium Level 8.5L 12/22/20 11:14: Bedside Glucose (Misc Panel) 151H 12/22/20 16:31: Bedside Glucose (Misc Panel) 238H CBC/BMP Laboratory Tests 12/22/20 06:10 Microbiology Microbiology 12/19/20 Blood Culture - Preliminary, Resulted No Growth after 72 hours. All specime... 12/14/20 Blood Culture - Final, Complete NO GROWTH AFTER 5 DAYS 12/14/20 Respiratory Virus Panel (PCR) ([facility]) - Final, Complete Respiratory Syncytial Virus Allergies Coded Allergies: [id number] Reductase Inhibitor (Verified Adverse Reaction, Unknown, PAIN, 10/05/20) PT SAYS SHE CAN TAKE PRAVASTATIN Home Medications Scheduled Amlodipine Besylate (Amlodipine Besylate) 5 Mg Tablet, 5 MG PO DAILY, (Reported) Aspirin (Aspirin EC) 81 Mg Tablet.dr, 81 MG PO DAILY, (Reported) Carvedilol (Carvedilol) 12.5 Mg Tablet, 12.5 MG PO DAILY, (Reported) Cefdinir (Cefdinir) 300 Mg Capsule, 300 MG PO BID for 10 Days, #20 Doxycycline Monohydrate (Doxycycline) 100 Mg Capsule, 1 CAP PO BID for 7 Days, #14 Hydralazine HCl (Hydralazine HCl) 25 Mg Tablet, 25 MG PO DAILY, (Reported) PRESCRIBED FOR TID DOSING, PT ONLY TAKING ONCE DAILY Ipratropium/Albuterol Sulfate (Combivent Respimat 20-100 Mcg) 4 Gm Mist.inhal, 1 PUFF INH BID, (Reported) Lidocaine/Prilocaine (Lidocaine-Prilocaine Cream) 2.5%/2.5% Cream..g., 1 APLCT TOP 3XW, (Reported) MONDAY, MONDAY AND MONDAY PRIOR TO DIALYSIS Multivitamins (Thera M Plus Tablet) 1 Each Tablet, 1 TAB PO DAILY, (Reported) Sevelamer Carbonate (Sevelamer Carbonate) 800 Mg Tablet, 800 MG PO WM, (Reported) Trazodone HCl (Trazodone HCl) 50 Mg Tablet, 25 MG PO QHS, (Reported) Ubidecarenone (Coenzyme Q10) 100 Mg Tablet, 100 MG PO DAILY, (Reported) Scheduled PRN Hydroxyzine HCl (Hydroxyzine HCl) 10 Mg Tablet, 20 MG PO QHS PRN for SLEEP, (Reported) Ibuprofen (Ibu-200) 200 Mg Tablet, 200 MG PO Q6H PRN for PAIN LEVEL 1-4, (Reported) Sevelamer Carbonate (Renvela) 800 Mg Tablet, 800 MG PO ASDIRECTED PRN for AFTER SNACKS, (Reported) GME ATTESTATION GME ATTESTATION My faculty preceptor for this patient encounter was physically present during the encounter and was fully available. All aspects of the patient interview, examination, medical decision making process, and medical care plan development were reviewed and approved by the faculty preceptor. The faculty preceptor is aware and concurs with the plan as stated in the body of this note and will attest to such by his/her cosignature. Tonya Fernández DO Dec 22, 2020 18:15 Charisse Dozier MD Dec 24, 2020 15:48
--- NOTE | 2020-12-22 19:27 | IPN ---
PROGRESS NOTE DATE: 12/22/2020 SUBJECTIVE: Mrs. Acosta seen this morning on her bedside. She is feeling better and denies any fever or chills. She is still weak and not able to walk. She denies any dyspnea, chest pain, nausea or vomiting. She reports that left arm AV fistula site pain has improved. PHYSICAL EXAMINATION: VITALS: Temperature 97.9 degrees Fahrenheit, heart rate 84 per minute, respiratory rate 18 per minute, blood pressure 127/58 mmHg, and oxygen saturation 96% on room air. HEENT: Head is atraumatic. Neck supple and without JVD or thyroid enlargement. HEART: Heart sounds are regular. LUNGS: Clear to auscultation. ABDOMEN: Soft and nontender. Bowel sounds are normal. EXTREMITIES: Without any cyanosis or clubbing. She has a PICC line in her right arm. Her left arm AV fistula is patent and the button hole that was swollen before has now improved significantly. There is no drainage. NEUROLOGIC: She is at her baseline mentation, without a focal deficit. LABORATORY DATA: Today's labs show WBC 6.7, hemoglobin 9.4, hematocrit 31.5, platelets 201,000. Sodium 140, potassium 4.0, BUN 28, creatinine 6.54, glucose 150 and calcium 8.5. PROBLEMS: 1. End-stage renal disease: Patient is regularly dialyzed on Monday, Monday and Monday schedule, she was dialyzed yesterday and will plan dialysis for tomorrow. At present, there is no emergent need for dialysis today. 2. Hypertension: Blood pressure seems very well controlled and no changes are being made today in her antihypertensive meds. 3. Anemia: Her anemia has been stable and improving. She continues to receive weekly dose of Aranesp with dialysis. 4. Infected left arm AV fistula site: Her infection in the AV fistula site is improving and she remains afebrile. She has been on Zosyn and Doxycycline.
[2020-12-22] MEDS: OMEPRAZOLE 20 MG CAP PO SCH (20:35)
[2020-12-22] MEDS: traZODone 25MG PER 1/2 TABLET PO SCH (20:36)
--- NOTE | 2020-12-22 20:45 | IPNPDOC ---
Date Seen The patient was seen on 12/22/20. Progress Note SUBJECTIVE: seen and examined at bedside. Had fever on 12/21/20. No acute events overnight. Denies SOB, CP, palpitations. C/o back pain OBJECTIVE PHYSICAL EXAMINATION: VITAL SIGNS: please see below General: NAD, comfortable HEENT: PERRLA, EOMI, sclerae clear Neck: supple, normal ROM, no JVD Respiratory: lungs CTAB, no wheeze, no rales, no crackles CVS: RRR, normal S1, S2, no murmurs Abdo: soft, no masses, no hepatosplenomegaly, BS+, no rebound tenderness Extremities: no edema, pulses 2+ MSK: no joint deformities, normal ROM Neuro: no focal neuro deficits, moving all 4 extremities, CN2-12 intact. Strength 5/5 in all 4 extremities. No nystagmus. Psych: calm, cooperative, AAO x 3 LABORATORY DATA, IMAGING STUDIES, MICROBIOLOGY: Please see below. DVT prophylaxis ordered?: heparin ASSESSMENT AND PLAN: Mrs. Acosta is a 75 year old female with CAD s/p CABG and ESRD on dialysis MWF who presents with upper abdominal pain and exertional dyspnea. CT of the abdomen pelvis suggestive of possible fistula. General surgery consulted, recommendations appreciated. Otherwise, patient also to Zosyn and vancomycin. With addition of Zosyn, will cover for intra-abdominal organisms. Vancomycin was discontinued as MRSA PCR negative. Pending clinical improvement Patient had a fever of 102.4 on 12/14/2020. Blood culture repeated, pending results. Antibiotics escalated from ceftriaxone and doxycycline to Zosyn and Vanco. Patient had another fever again on 12/16/2020 and on 12/17/2020. CT abdomen pelvis was negative for occult abscess. We will restart doxycycline for atypical coverage. Despite atypical coverage, patient continue to have fever (12/18/2020 Temp 102.8) and low grade temp (12/19/2020 Temp 100.1). Per nephrology's note, patient recurrent fever may be secondary to infected buttonhole in her left arm AV fistula. They have started Bactroban ointment to her needle site and stopped using the buttonhole. PROBLEMS: #. End-stage renal disease Continue dialysis on Monday #. Acute decompensated heart failure with combined systolic and diastolic dysfunction Echocardiogram from 03/31/2020 demonstrates EF of 40%, grade 2 diastolic dysfunction Continue with dialysis Continue with I's and O's and daily weights #Thoracic pain - CT abdo pelvis showing possible discitis T8-T9 level - ID consult placed - CT lumbar spine w IV Contrast prior to HD on 12/23/20 ordered. #. Possible intra-abdominal fistula Seen on CT of the abdomen pelvis General surgery consulted, recommendations appreciated. General surgery suggests that the presence of a fistula is highly unlikely. Continue antibiotic #. Multifocal pneumonia Patient's foot IV cannot be used. We will use temporary p.o. antibiotics until PICC line can be placed Continue with Zosyn day 6. doxycycline day 4 MRSA PCR was negative -Repeat procalcitonin elevated (3.04), but now downtrending #. Constipation Continue bowel regimen #. DM type II Continue sliding scale insulin # Shoulder pain Continue lidocaine patch #. Hypertension Continue amlodipine, hydralazine, and Coreg # CAD status post CABG Continue with aspirin and Coreg #. DVT prophylaxis Heparin Disposition: Pending clinical improvement VS[facility] Vital Signs/I&O Vital Signs Date Time Temp Pulse Resp B/P (MAP) Pulse Ox O2 Delivery O2 Flow Rate FiO2 12/22/20 18:00 97.9 85 19 138/67 (90) 96 Nasal Cannula 2.0 I&O- Last 24 Hours up to 6 AM 12/22/20 06:00 Intake Total 1090 ml Output Total 2000 ml Balance -910 ml Laboratory Data 24H LABS Laboratory Tests 2 12/21/20 20:24: Bedside Glucose (Misc Panel) 272H 12/22/20 06:10: Nucleated Red Blood Cells % (auto) 0.3H, Anion Gap 7L, Glomerular Filtration Rate 6.6L, Calcium Level 8.5L 12/22/20 11:14: Bedside Glucose (Misc Panel) 151H 12/22/20 16:31: Bedside Glucose (Misc Panel) 238H 12/22/20 19:54: Bedside Glucose (Misc Panel) 179H CBC/BMP Laboratory Tests 12/22/20 06:10 Microbiology Microbiology 12/19/20 Blood Culture - Preliminary, Resulted No Growth after 72 hours. All specime... 12/14/20 Blood Culture - Final, Complete NO GROWTH AFTER 5 DAYS 12/14/20 Respiratory Virus Panel (PCR) ([facility]) - Final, Complete Respiratory Syncytial Virus LISA YU MD Dec 22, 2020 20:45
[2020-12-23 02:00] VITALS: BP 162/82
[2020-12-23] MEDS: PIPERACILLIN/TAZOBACTAM SOD 2.25 GM in D5W MINI-BAG PLUS 50 ML IV SCH ×3 (05:20→23:14)
[2020-12-23] MEDS: ASPIRIN 81MG ENTERIC TABLET PO SCH (05:28)
[2020-12-23] MEDS: LACTOBACILLUS ACIDOPHILUS CAP (BACID) PO SCH ×2 (05:29→17:00)
[2020-12-23] MEDS: BENZONATATE 100MG CAPSULE PO SCH ×3 (05:29→20:41)
[2020-12-23] MEDS: CO-ENZYME Q10 50 MG CAP PO SCH (05:30)
[2020-12-23] MEDS: MULTIVITAMINS/MINERALS THERAP 1 TAB PO SCH (05:30)
[2020-12-23] MEDS: (RENVELA) SEVELAMER **CARBONate** 800 MG TAB PO SCH ×3 (05:31→17:00)
[2020-12-23] MEDS: amLODIPine 5 MG TAB PO SCH (05:37)
[2020-12-23] MEDS: CARVedilol 12.5 MG TAB PO SCH (05:38)
[2020-12-23] MEDS: **hydrALAZINE HCL** 25 MG TAB PO SCH ×2 (05:38→20:42)
[2020-12-23 06:00] VITALS: BP 120/85
[2020-12-23 06:15] LABS: HEMATOCRIT 28.4 % (36.0-47.0); HEMOGLOBIN 8.4 g/dl (12.0-15.5); MEAN CORPUSCULAR HEMOGLOBIN 26.8 pg (27.0-33.0); MEAN CORPUSCULAR HGB CONC 29.6 g/dl (32.0-36.5); MEAN CORPUSCULAR VOLUME 90.7 fl (80.0-96.0); PLATELET COUNT, AUTOMATED 200 10^3/uL (150-450); RED BLOOD COUNT 3.13 10^6/uL (4.00-5.40); WHITE BLOOD COUNT 7.3 10^3/uL (4.0-10.0)
[2020-12-23] MEDS: SODIUM CHLORIDE 0.9% INJ 10 ML SYR IV SCH ×2 (06:20→17:01)
[2020-12-23 06:35] LABS: ERYTHROCYTE SEDIMENTATION RATE 54 mm/hr (0-30)
[2020-12-23 06:38] LABS: C REACTIVE PROTEIN QUANTITATIV 0.66 MG/DL (0.00-0.30); CALCIUM LEVEL 8.8 MG/DL (8.8-10.2); CREATININE FOR GFR 8.21 MG/DL (0.55-1.30); GLOMERULAR FILTRATION RATE 5.1 (>39); POTASSIUM SERUM 4.3 MEQ/L (3.5-5.1)
[2020-12-23] MEDS: HumaLOG INSULIN (NovoLOG) PER UNIT SC SCH ×5 (07:28→20:42)
[2020-12-23] MEDS: COMBIVENT RESPIMAT 100-20MCG INHALER 4GM INH SCH ×3 (08:00→20:00)
[2020-12-23] MEDS ORDERED: ISOVUE-370 76% 100ML VIAL As Ordered ONE (08:05)
--- NOTE | 2020-12-23 08:35 | REPVR ---
PROCEDURE INFORMATION: Exam: CT Thoracic Spine With Contrast Exam date and time: 12/23/2020 8:22 AM Age: 75 years old Clinical indication: Pain; Other: Abscess/discitis with iv ctx before hd TECHNIQUE: Imaging protocol: Computed tomography images of the thoracic spine with intravenous contrast. Radiation optimization: All CT scans at this facility use at least one of these dose optimization techniques: automated exposure control; mA and/or kV adjustment per patient size (includes targeted exams where dose is matched to clinical indication); or iterative reconstruction. Contrast material: ISOVUE 370; Contrast volume: 75 ml; Contrast route: INTRAVENOUS (IV); COMPARISON: CT Spine,thoracic w/o contrast 09/09/2018 6:50 PM FINDINGS: Vertebrae: There is mild accentuation of the normal thoracic kyphosis. There is no fracture or listhesis. Discs/Spinal canal/Neural foramina: There is severe intervertebral disc space loss at C7/T1 and T8/9, with endplate changes. Soft tissues: Unremarkable. LungsPleural spaces: There is a moderate left pleural effusion. There is left basilar compressive atelectasis/consolidation. IMPRESSION: 1. Severe intervertebral disc space loss at C7/T1 and T8/9, with endplate changes. These findings may be degenerative in nature. Discitis/osteomyelitis is difficult to exclude. MRI is recommended. 2. Moderate left pleural effusion with left basilar compressive atelectasis/consolidation. Electronically signed by: Jessie Davila On 12/23/2020 08:34:35 AM
[2020-12-23 12:59] VITALS: BP 156/75
[2020-12-23] MEDS: DOXYCYCLINE HYCLATE 100 MG in D5W MINI-BAG PLUS 100 ML IV SCH ×2 (13:08→20:37)
[2020-12-23] MEDS: MUPIROCIN 2% OINT 22 GM TUBE TOP SCH ×2 (13:08→23:14)
--- NOTE | 2020-12-23 13:44 | IPN ---
PROGRESS NOTE DATE: 12/23/2020 SUBJECTIVE: Mrs. Acosta is seen this morning during hemodialysis. Her left arm AV fistula is being used and working well. She denies any fever, chills, nausea or vomiting. She denies any back pain. OBJECTIVE: VITAL SIGNS: Temperature is 97.9 degrees Fahrenheit, heart rate is 88 per minute and respiratory rate is 18 per minute. Blood pressure is 120/85 mmHg and oxygen saturation is 92% on 2 liters of oxygen. HEENT: Head is atraumatic. Neck supple and without JVD or thyroid enlargement. HEART: Heart sounds are regular. LUNGS: Clear to auscultation. ABDOMEN: Soft and nontender. Bowel sounds are normal. EXTREMITIES: Without any cyanosis or clubbing. Left arm AV fistula is working and being used for dialysis. NEUROLOGIC: She is at her baseline mentation, without a focal deficit. LABORATORY DATA: Today's labs showed a WBC count of 7.3, hemoglobin 8.4 and hematocrit 28.4. Platelets are 200,000. Sodium is 139, potassium is 4.3, BUN 42 and creatinine is 8.21. C-reactive protein is 0.66. She had a CT scan of the thoracic spine due to a concern for possible discitis on her CT scan of abdomen and pelvis. There was no convincing evidence for discitis, however she has severe degenerative disc disease. She also was noticed to have moderate left pleural effusion with basilar compressive atelectasis. PROBLEMS: 1. Endstage renal disease. Patient is being dialyzed today as she is tolerating dialysis well. 2. Congestive heart failure, overall her volume status has been well-compensated. We are trying to remove about 2 liters of fluid as tolerated. 3. Chronic and recurrent left pleural effusion. This is a chronic issue and unfortunately has not responded to hemodialysis and fluid removal. I would recommend to get a left thoracentesis done prior to discharge. 4. Discitis in the thoracic spine. Patient has no pain and no fever at this point. I am not sure if she has discitis. The CT scan did not show any convincing evidence. She does not have any leukocytosis and her C-reactive protein is only 0.66 which also does not look consistent with discitis. 5. Left arm AV fistula infection. She did have an infected button hole in her left arm AV fistula which is currently not being used and she has been afebrile with negative blood cultures. She remains on Zosyn and Doxycycline. 6. Anemia, her anemia is related to endstage renal disease and she receives Aranesp 100 mcg once a week. 7. Generalized weakness and deconditioning. Patient is feeling very weak and she is unable to ambulate. I will recommend rehab prior to discharge.
[2020-12-23] MEDS: IBUPROFEN 200MG TAB PO PRN (17:03)
[2020-12-23 18:00] VITALS: BP 158/78
[2020-12-23] MEDS: OMEPRAZOLE 20 MG CAP PO SCH (20:40)
[2020-12-23] MEDS: traMADol 50 MG TAB PO PRN (20:41)
[2020-12-23] MEDS: traZODone 25MG PER 1/2 TABLET PO SCH (20:42)
[2020-12-23] MEDS: VANICREAM MOISTURIZING SKIN CREAM 113GM TUBE TOP PRN (20:43)
--- NOTE | 2020-12-23 20:50 | IPNPDOC ---
Date Seen The patient was seen on 12/23/20. Progress Note SUBJECTIVE: seen and examined at bedside. Had fever on 12/21/20. No acute events overnight. Denies SOB, CP, palpitations. C/o back pain OBJECTIVE PHYSICAL EXAMINATION: VITAL SIGNS: please see below General: NAD, comfortable HEENT: PERRLA, EOMI, sclerae clear Neck: supple, normal ROM, no JVD Respiratory: lungs CTAB, no wheeze, no rales, no crackles CVS: RRR, normal S1, S2, no murmurs Abdo: soft, no masses, no hepatosplenomegaly, BS+, no rebound tenderness Extremities: no edema, pulses 2+ MSK: no joint deformities, normal ROM Neuro: no focal neuro deficits, moving all 4 extremities, CN2-12 intact. Strength 5/5 in all 4 extremities. No nystagmus. Psych: calm, cooperative, AAO x 3 LABORATORY DATA, IMAGING STUDIES, MICROBIOLOGY: Please see below. DVT prophylaxis ordered?: heparin ASSESSMENT AND PLAN: Mrs. Acosta is a 75 year old female with CAD s/p CABG and ESRD on dialysis MWF who presents with upper abdominal pain and exertional dyspnea. CT of the abdomen pelvis suggestive of possible fistula. General surgery consulted, recommendations appreciated. Otherwise, patient also to Zosyn and vancomycin. With addition of Zosyn, will cover for intra-abdominal organisms. Vancomycin was discontinued as MRSA PCR negative. Pending clinical improvement Patient had a fever of 102.4 on 12/14/2020. Blood culture repeated, pending results. Antibiotics escalated from ceftriaxone and doxycycline to Zosyn and Vanco. Patient had another fever again on 12/16/2020 and on 12/17/2020. CT abdomen pelvis was negative for occult abscess. We will restart doxycycline for atypical coverage. Despite atypical coverage, patient continue to have fever (12/18/2020 Temp 102.8) and low grade temp (12/19/2020 Temp 100.1). Per nephrology's note, patient recurrent fever may be secondary to infected buttonhole in her left arm AV fistula. They have started Bactroban ointment to her needle site and stopped using the buttonhole. PROBLEMS: #. End-stage renal disease Continue dialysis on Monday #. Acute decompensated heart failure with combined systolic and diastolic dysfunction Echocardiogram from 03/31/2020 demonstrates EF of 40%, grade 2 diastolic dysfunction Continue with dialysis Continue with I's and O's and daily weights #Thoracic pain - CT abdo pelvis showing possible discitis T8-T9 leve - ID consult placed - CT lumbar spine w IV Contrast prior to HD on 12/23/20 unable to r/o T8/T9 discitis - ordered MRI T spine, MRI L spine wo contrast. #. Possible intra-abdominal fistula Seen on CT of the abdomen pelvis General surgery consulted, recommendations appreciated. General surgery suggests that the presence of a fistula is highly unlikely. Continue antibiotic #. Multifocal pneumonia Patient's foot IV cannot be used. We will use temporary p.o. antibiotics until PICC line can be placed Continue with Zosyn day 6. Start doxycycline day 4 MRSA PCR was negative -procal downtrending #. Constipation Continue bowel regimen #. DM type II Continue sliding scale insulin # Shoulder pain Continue lidocaine patch #. Hypertension Continue amlodipine, hydralazine, and Coreg # CAD status post CABG Continue with aspirin and Coreg #. DVT prophylaxis Heparin Disposition: Pending clinical improvement VS, I&O, 24H, Fishbone Vital Signs/I&O Vital Signs Date Time Temp Pulse Resp B/P (MAP) Pulse Ox O2 Delivery O2 Flow Rate FiO2 12/23/20 20:42 181/80 12/23/20 20:41 20 Room Air 12/23/20 18:00 98.1 82 99 12/23/20 08:10 2.0 I&O- Last 24 Hours up to 6 AM 12/23/20 06:00 Intake Total 1640 ml Balance 1640 ml Laboratory Data 24H LABS Laboratory Tests 2 12/23/20 05:27: Nucleated Red Blood Cells % (auto) 0.0, Erythrocyte Sedimentation Rate 54H, Anion Gap 7L, Glomerular Filtration Rate 5.1L, Calcium Level 8.8, C-Reactive Protein, Quantitative 0.66H 12/23/20 12:57: Bedside Glucose (Misc Panel) 112H 12/23/20 16:44: Bedside Glucose (Misc Panel) 169H 12/23/20 20:08: Bedside Glucose (Misc Panel) 215H CBC/BMP Laboratory Tests 12/23/20 05:27 Microbiology Microbiology 12/19/20 Blood Culture - Preliminary, Resulted No Growth after 72 hours. All specime... 12/14/20 Blood Culture - Final, Complete NO GROWTH AFTER 5 DAYS 12/14/20 Respiratory Virus Panel (PCR) ([facility]) - Final, Complete Respiratory Syncytial Virus LISA YU MD Dec 23, 2020 20:50
[2020-12-23 22:00] VITALS: BP 161/79
--- NOTE | 2020-12-23 23:28 | REPVR ---
PROCEDURE INFORMATION: Exam: MR Thoracic Spine Without Contrast Exam date and time: 12/23/2020 10:42 PM Age: 75 years old Clinical indication: Pain in thoracic spine; Without myelpathy or radiculopathy; Additional info: R/O discitis. Suspicios findings on CT. TECHNIQUE: Imaging protocol: Multiplanar magnetic resonance images of the thoracic spine without contrast. COMPARISON: CT Spine, thoracic w/contrast 12/23/2020 8:21 AM FINDINGS: Degenerative disc height loss at T8-T9 with mild Modic type 1 edematous degenerative endplate change. No discogenic edema to suggest osteomyelitis/discitis. Remaining thoracic disc space heights are preserved. Thoracic vertebral body heights are maintained. No cord compression. No abnormal cord signal. Thoracic kyphosis is preserved. Thoracic disc space heights are unremarkable. Paravertebral soft tissues are unremarkable. Small left pleural effusion. IMPRESSION: 1. No acute findings in the thoracic spine. 2. Small left pleural effusion. 3. Chronic findings, as above. Electronically signed by: Rogers Arnold On 12/23/2020 23:27:37 PM
--- NOTE | 2020-12-23 23:31 | REPVR ---
PROCEDURE INFORMATION: Exam: MR Lumbar Spine Without Contrast Exam date and time: 12/23/2020 10:42 PM Age: 75 years old Clinical indication: Low back pain; Additional info: R/O discitis. Suspicios findings on CT. TECHNIQUE: Imaging protocol: Multiplanar magnetic resonance images of the lumbar spine without intravenous contrast. COMPARISON: CT Spine, lumbar w/contrast 07/03/2018 2:26 PM FINDINGS: Straightening of the lumbar lordosis. Vertebral body heights are maintained. Mild endplate and discogenic edema at L3-L4 No cord compression. No abnormal cord signal. Conus medullaris terminates at the L1 level. Paravertebral soft tissues are unremarkable. L1-L2: No significant canal or foraminal narrowing. L2-L3: Broad-based disc bulge and facet hypertrophy cause mild bilateral foraminal narrowing. Mild canal narrowing. L3-L4: Prominent posterior disc osteophyte complex and facet hypertrophy cause mild canal narrowing and severe bilateral foraminal narrowing. L4-L5: Broad-based disc bulge and facet hypertrophy cause mild to moderate canal narrowing with effacement of the bilateral lateral recesses. Moderate right and moderate to severe left foraminal narrowing. L5-S1: Facet hypertrophy causes mild bilateral foraminal narrowing. No significant canal narrowing. IMPRESSION: 1. Mild endplate and discogenic edema at L3-L4 superimposed over chronic prominent spondylotic changes, which when compared with prior CT from 07/03/2018, most likely reflects sequela of chronic spondylotic change and less likely osteomyelitis/discitis. 2. Additional multilevel spondylotic changes of the lumbar spine, as detailed above. Electronically signed by: Rogers Arnold On 12/23/2020 23:31:03 PM
[2020-12-24] MEDS: SODIUM CHLORIDE 0.9% INJ 10 ML SYR IV PRN ×4 (00:17→23:07)
[2020-12-24 02:00] VITALS: BP 145/70
[2020-12-24] MEDS: PIPERACILLIN/TAZOBACTAM SOD 2.25 GM in D5W MINI-BAG PLUS 50 ML IV SCH ×2 (05:09→13:52)
[2020-12-24 05:50] LABS: HEMATOCRIT 28.5 % (36.0-47.0); HEMOGLOBIN 8.5 g/dl (12.0-15.5); MEAN CORPUSCULAR HEMOGLOBIN 27.5 pg (27.0-33.0); MEAN CORPUSCULAR HGB CONC 29.8 g/dl (32.0-36.5); MEAN CORPUSCULAR VOLUME 92.2 fl (80.0-96.0); PLATELET COUNT, AUTOMATED 210 10^3/uL (150-450); RED BLOOD COUNT 3.09 10^6/uL (4.00-5.40); WHITE BLOOD COUNT 6.3 10^3/uL (4.0-10.0)
[2020-12-24 06:00] VITALS: BP 158/74
[2020-12-24 06:03] LABS: CALCIUM LEVEL 8.9 MG/DL (8.8-10.2); CREATININE FOR GFR 5.71 MG/DL (0.55-1.30); GLOMERULAR FILTRATION RATE 7.7 (>39); POTASSIUM SERUM 4.6 MEQ/L (3.5-5.1)
[2020-12-24] MEDS: SODIUM CHLORIDE 0.9% INJ 10 ML SYR IV SCH ×2 (06:16→18:38)
[2020-12-24] MEDS: HumaLOG INSULIN (NovoLOG) PER UNIT SC SCH ×4 (07:30→21:00)
[2020-12-24] MEDS: COMBIVENT RESPIMAT 100-20MCG INHALER 4GM INH SCH ×3 (08:08→20:27)
[2020-12-24] MEDS: LACTOBACILLUS ACIDOPHILUS CAP (BACID) PO SCH ×2 (09:35→18:37)
[2020-12-24] MEDS: ASPIRIN 81MG ENTERIC TABLET PO SCH (09:36)
[2020-12-24] MEDS: MULTIVITAMINS/MINERALS THERAP 1 TAB PO SCH (09:36)
[2020-12-24] MEDS: BENZONATATE 100MG CAPSULE PO SCH ×3 (09:36→23:03)
[2020-12-24] MEDS: CO-ENZYME Q10 50 MG CAP PO SCH (09:36)
[2020-12-24] MEDS: MUPIROCIN 2% OINT 22 GM TUBE TOP SCH ×2 (09:36→23:06)
[2020-12-24] MEDS: DOXYCYCLINE HYCLATE 100 MG in D5W MINI-BAG PLUS 100 ML IV SCH (09:36)
[2020-12-24] MEDS: (RENVELA) SEVELAMER **CARBONate** 800 MG TAB PO SCH ×3 (09:37→18:37)
[2020-12-24] MEDS: amLODIPine 5 MG TAB PO SCH (09:41)
[2020-12-24] MEDS: CARVedilol 12.5 MG TAB PO SCH (09:41)
[2020-12-24] MEDS: **hydrALAZINE HCL** 25 MG TAB PO SCH ×2 (09:41→21:00)
[2020-12-24] MEDS: ONDANSETRON 4MG/2ML VIAL IV PRN (09:52)
[2020-12-24 10:00] VITALS: BP 110/70
--- NOTE | 2020-12-24 12:39 | IPN ---
PROGRESS NOTE DATE: 12/24/2020 SUBJECTIVE: Ms. Acosta is seen this morning on her bedside. She has complaint of perirectal area discomfort. She has been evaluated by the hospitalist. Patient was dialyzed yesterday and she tolerated dialysis well. She has no dyspnea, chest pain, nausea or vomiting. PHYSICAL EXAMINATION: Temperature 98 degrees Fahrenheit, heart rate 84 per minute and respiratory rate 18 per minute. Blood pressure as high as 170/70 mmHg and oxygen saturation 99%. Head: Atraumatic. Neck: Supple and without JVD or thyroid enlargement. Heart: Sounds are regular. Lungs: With diminished breath sounds in left lower half. Abdomen: Soft and nontender and bowel sounds are normal. Extremities: Without any cyanosis or clubbing. Left arm AV fistula is patent. Neurologically: She is at her baseline mentation. LABORATORY DATA: Today's labs show: WBC count 6.3, hemoglobin 8.5, hematocrit 28.5 and platelets 210. Sodium 139, potassium 4.6, CO2 28, BUN 27, creatinine 5.71, glucose 97 and calcium 8.9. PROBLEMS/PLAN: 1. End-stage renal disease: Patient was dialyzed yesterday and the next dialysis will be scheduled for tomorrow which is her regular day. No emergent need for dialysis today. 2. Congestive heart failure: Her volume status seems well compensated clinically. She does have a recurrent left pleural effusion. She is likely to require a paracentesis. I do not feel that her pleural effusion is going to get better with dialysis. 3. Anemia: At present her anemia is stable and she will continue with Aranesp 100 mcg once a week during dialysis. 4. Fever: Patient has been afebrile now and she remains on doxycycline and Zosyn. Discitis has been ruled out. She did have an MRI of the thoracic and lumbar spine done yesterday. No compelling evidence for discitis. 5. Left arm AV fistula site infection: She did have an infection in her fistula needle site which has been cleared now and we will continue to monitor. At present we are using a different site for needles. 6. Generalized deconditioning: Patient is very weak and likely to require rehab.
[2020-12-24 14:00] VITALS: BP 108/82
[2020-12-24] MEDS: TRIPLE PASTE 2OZ OINTMENT TOP SCH ×2 (14:49→23:04)
[2020-12-24] MEDS: ANUSOL HC CREAM 30GM TOP SCH ×2 (14:50→23:06)
--- NOTE | 2020-12-24 17:44 | IPNPDOC ---
Subjective Date Seen The patient was seen on 12/24/20. Subjective Chief Complaint/HPI SUBJECTIVE: Patient seen at bedside rounds. Patient reports her abdominal pain is better and there is currently no back pain. However patient states that she has been having some diarrhea x4 days that is bloody and has fissures in her rectal area from her frequent BMs. Patient states that she has been having about 5-6 BMs per day but started around the time when her antibiotic regimen was started. According to her nurse, her stool is not watery in consistency but described it as a soft but formed consistency. Patient denies any fever, chills, abdominal pain, nausea, vomiting,, chest pain, shortness of breath. OBJECTIVE: VS: see below GENERAL: The patient is a well-developed, well-nourished in no apparent distress. AAOx3 NEURO: No focal neurological deficits HEENT: Head is normocephalic and atraumatic. Extraocular muscles are intact. Pupils are equal, round, and reactive to light and accommodation. Nares appears normal. Moist mucous membranes. adentulous. LYMPH: no significant lympadenopathy appreciated. PULM: Diminished breath sounds. No wheezing, rhonchi or rales appreciated. Mild crackles heard in bilateral lung bases. CARDIO: Normal S1, S2. no significant murmurs, gallops, rubs or clicks. Trace peripheral edema. No JVD appreciated. ABDOMEN: Soft, nontender, and nondistended. Normal bowel sounds. No significant organomegaly appreciated. EXTREMITIES: No cyanosis, clubbing, rash, lesions. MSK: there's normal ROM throughout. There's no tenderness in the Thoracic spine or paraspinal muscles on palpation SKIN: PICC line noted in R arm. There's scarring in front of her chest with keloid from CABG surgery. AV fistula left arm that's patent looks better from previous days IMAGING: MRI thoracic spine without contrast IMPRESSION: 1. No acute findings in the thoracic spine. 2. Small left pleural effusion. 3. Chronic findings, as above. MRI lumbar spine without contrast IMPRESSION: 1. Mild endplate and discogenic edema at L3-L4 superimposed over chronic prominent spondylotic changes, which when compared with prior CT from 07/03/2018, most likely reflects sequela of chronic spondylotic change and less likely osteomyelitis/discitis. 2. Additional multilevel spondylotic changes of the lumbar spine, as detailed above. (Please see full report and imaging). MICROBIOLOGY: BLOOD CULTURES: 12/10/20 NO GROWTH AFTER 5 DAYS 12/14/20 blood cluture no growrth after 5 days 12/19 blood culture - no growth after 72 hours 12/14/20 Respiratory panel : RSV positive IMPRESSION: Thoracic pain- Patient presented initially to [facility] with complaints of abdominal pain with radiation to the back bilaterally however, she is unable to localize the pain or describe the pain very well. However, she's been afebrile until 12/14 and she was tested pos for RSV and she does have an AV fistula site in her left arm which was thought to be a possible source of infection although patient did not report pus drainage out from it. Her recent CT abd/pelv w/ IV ctx shows findings showing possible T8-9 discitis (subacute) which could explain her back pain initially. There's a possibility that that the AV fistula inf ection could have had a metastatic seeding and it manifested in the back pain; however, she was covered during her entire hospital course with multiple abx to cover for organisms including gram neg, gram pos including staph aureus, and anaerobes for her RSV PNA vs bacterial PNA given her elevated procalcitonin, although Procalitonin may not be accurate in ESRD patients on HD and we do not know what patient's baseline procal is. CT with contrast of the thoracic cannot rule out discitis and MRI of the thoracic and lumbar ordered which do not show findings concerning for acute discitis. Her AV fistula site also looks much improved from previous days. Diarrhealikely due to antibiotics. Patient was admitted initially for pneumonia and was started on antibiotic regimen consisting of azithromycin, Rocephin, doxycycline, dose of vancomycin, Augmentin. Patient is an ESRD patient and has had her peripheral lines infiltrated several times requiring switches from IV to p.o. regimens. A PICC line was placed on the and she was started on IV Zosyn and doxycycline. Her pulmonary infiltrate is likely viral in etiology secondary to RSV. We will discontinue her antibiotics and monitor her BMs. If her bowel movements continue to be loose in consistency after antibiotic discontinuation, we will consider ordering a GI panel to rule out C. difficile at that time. Pulmonary infiltrate likely due to RSV PNA vs congestive heart failure. Her fever is likely 2/2 to RSV PNA. She's fluid compensated on exam today. Patient, of note is not known to be very complaint with her medications. She's ESRD on HD MWF. She's currently not short of breath and saturates above 90% on RA. We will d/c her abx ESRD on HD- patient was admitted with cc of sob as well and is a patient known to Dr. Simeon and does HD MWF. She continues to follow with Dr. Amor. She's been consistently saturatting above 92% on 2L NC. Her AV fistula site was examined and no signs of pus or drainage. PLAN: Pulmonary infiltrate is likely viral in etiology secondary to RSV pneumonia. With patient's complaints of loose stools x5-6 times per day, we we will discontinue her antibiotic (zosyn 7 days, doxy 5 days) regimen and monitor her BMs. If it continues to be persistent and or loose in consistency we will consider ordering a GI panel to rule out C. difficile at that time. MRI of thoracic and lumbar spine did not show any signs of acute discitis. Objective Physical Examination General Exam: Positive: Alert, Cooperative Eye Exam: Positive: EOMI; Negative: Sclera icteric ENT Exam: Positive: Atraumatic Neck Exam: Positive: Supple Chest Exam: Positive: Diminished Heart Exam: Positive: Rate Normal, Regular Rhythm Abdomen Exam: Positive: Normal bowel sounds, Soft; Negative: Tenderness Extremity Exam: Negative: Edema Neuro Exam: Positive: Cranial Nerves 3-12 NL Psych Exam: Positive: Mental status NL, Mood NL Assessment /Plan Plan/VTE VTE Prophylaxis Ordered?: Yes VS, I&O, 24H, Fishbone Vital Signs/I&O Vital Signs Date Time Temp Pulse Resp B/P (MAP) Pulse Ox O2 Delivery O2 Flow Rate FiO2 12/24/20 14:00 97.7 81 17 108/82 (91) 95 Room Air 12/24/20 09:00 2.0 I&O- Last 24 Hours up to 6 AM 12/24/20 06:00 Intake Total 1220 ml Output Total 2000 ml Balance -780 ml Laboratory Data 24H LABS Laboratory Tests 2 12/23/20 20:08: Bedside Glucose (Misc Panel) 215H 12/24/20 05:18: Nucleated Red Blood Cells % (auto) 0.0, Anion Gap 6L, Glomerular Filtration Rate 7.7L, Calcium Level 8.9 12/24/20 11:39: Bedside Glucose (Misc Panel) 185H CBC/BMP Laboratory Tests 12/24/20 05:18 Microbiology Microbiology 12/19/20 Blood Culture - Final, Complete NO GROWTH AFTER 5 DAYS 12/14/20 Blood Culture - Final, Complete NO GROWTH AFTER 5 DAYS 12/14/20 Respiratory Virus Panel (PCR) ([facility]) - Final, Complete Respiratory Syncytial Virus GME ATTESTATION GME ATTESTATION My faculty preceptor for this patient encounter was physically present during the encounter and was fully available. All aspects of the patient interview, examination, medical decision making process, and medical care plan development were reviewed and approved by the faculty preceptor. The faculty preceptor is aware and concurs with the plan as stated in the body of this note and will attest to such by his/her cosignature. Tonya Fernández DO Dec 24, 2020 16:59
[2020-12-24 18:00] VITALS: BP 107/80
--- NOTE | 2020-12-24 18:48 | IPNPDOC ---
Date Seen The patient was seen on 12/24/20. Progress Note SUBJECTIVE: seen and examined at bedside. Had fever on 12/21/20. No acute events overnight. Denies SOB, CP, palpitations. C/o anal pain. OBJECTIVE PHYSICAL EXAMINATION: VITAL SIGNS: please see below General: NAD, comfortable HEENT: PERRLA, EOMI, sclerae clear Neck: supple, normal ROM, no JVD Respiratory: lungs CTAB, no wheeze, no rales, no crackles CVS: RRR, normal S1, S2, no murmurs Abdo: soft, no masses, no hepatosplenomegaly, BS+, no rebound tenderness Extremities: no edema, pulses 2+ Skin: examined anal area with RN Jeanette Phillips. Excoriation of anal skin. No sacral decub MSK: no joint deformities, normal ROM Neuro: no focal neuro deficits, moving all 4 extremities, CN2-12 intact. Strength 5/5 in all 4 extremities. No nystagmus. Psych: calm, cooperative, AAO x 3 LABORATORY DATA, IMAGING STUDIES, MICROBIOLOGY: Please see below. MRI T spine (12/23/20): FINDINGS: Degenerative disc height loss at T8-T9 with mild Modic type 1 edematous degenerative endplate change. No discogenic edema to suggest osteomyelitis/discitis. Remaining thoracic disc space heights are preserved. Thoracic vertebral body heights are maintained. No cord compression. No abnormal cord signal. Thoracic kyphosis is preserved. Thoracic disc space heights are unremarkable. Paravertebral soft tissues are unremarkable. Small left pleural effusion. IMPRESSION: 1. No acute findings in the thoracic spine. 2. Small left pleural effusion. MRI L spine wo contrast (12/23/20): FINDINGS: Straightening of the lumbar lordosis. Vertebral body heights are maintained. Mild endplate and discogenic edema at L3-L4 No cord compression. No abnormal cord signal. Conus medullaris terminates at the L1 level. Paravertebral soft tissues are unremarkable. L1-L2: No significant canal or foraminal narrowing. L2-L3: Broad-based disc bulge and facet hypertrophy cause mild bilateral foraminal narrowing. Mild canal narrowing. L3-L4: Prominent posterior disc osteophyte complex and facet hypertrophy cause mild canal narrowing and severe bilateral foraminal narrowing. L4-L5: Broad-based disc bulge and facet hypertrophy cause mild to moderate canal narrowing with effacement of the bilateral lateral recesses. Moderate right and moderate to severe left foraminal narrowing. L5-S1: Facet hypertrophy causes mild bilateral foraminal narrowing. No significant canal narrowing. IMPRESSION: 1. Mild endplate and discogenic edema at L3-L4 superimposed over chronic prominent spondylotic changes, which when compared with prior CT from 07/03/2018, most likely reflects sequela of chronic spondylotic change and less likely osteomyelitis/discitis. 2. Additional multilevel spondylotic changes of the lumbar spine, as detailed above. DVT prophylaxis ordered?: heparin ASSESSMENT AND PLAN: Mrs. Acosta is a 75 year old female with CAD s/p CABG and ESRD on dialysis MWF who presents with upper abdominal pain and exertional dyspnea. CT of the abdomen pelvis suggestive of possible fistula. General surgery consulted, recommendations appreciated. Otherwise, patient also to Zosyn and vancomycin. With addition of Zosyn, will cover for intra-abdominal organisms. Vancomycin was discontinued as MRSA PCR negative. Pending clinical improvement Patient had a fever of 102.4 on 12/14/2020. Blood culture repeated, pending results. Antibiotics escalated from ceftriaxone and doxycycline to Zosyn and Vanco. Patient had another fever again on 12/16/2020 and on 12/17/2020. CT abdomen pelvis was negative for occult abscess. Doxycycline for atypical coverage. Despite atypical coverage, patient continue to have fever (12/18/2020 Temp 102.8) and low grade temp (12/19/2020 Temp 100.1). Fever was likely combination of RSV, infected buttonhole vs poss discitis. Discitis has been ruled out. Per Dr. Dozier, hold abx. Monitor for diarrhea. May need to do GI panel. PROBLEMS: #. End-stage renal disease Continue dialysis on Monday #. Acute decompensated heart failure with combined systolic and diastolic dysfunction Echocardiogram from 03/31/2020 demonstrates EF of 40%, grade 2 diastolic dysfunction Continue with dialysis Continue with I's and O's and daily weights - euvolemic #Thoracic pain - CT abdo pelvis showing possible discitis T8-T9 leve - ID consult placed - CT lumbar spine w IV Contrast prior to HD on 12/23/20 unable to r/o T8/T9 discitis - ordered MRI T spine, MRI L spine wo contrast. - Discitis has been ruled out. #. Possible intra-abdominal fistula Seen on CT of the abdomen pelvis General surgery consulted, recommendations appreciated. General surgery suggests that the presence of a fistula is highly unlikely. - DC abx on 12/24/[address] Dozier. #. Multifocal pneumonia likely 2/2 RSV vs congestive heart failure. has PICC in place. s/p 7 days zosyn s/p 5 days doxy MRSA PCR was negative -procal downtrending. - DC abx #.Diarrhea - has been on abx x 7 days - DC abx, monitor. GI panel if diarrhea persists. #Anal excoriation - diarrhea - start anusol - start zinc oxide barrier #. DM type II Continue sliding scale insulin # Shoulder pain Continue lidocaine patch #. Hypertension Continue amlodipine, hydralazine, and Coreg # CAD status post CABG Continue with aspirin and Coreg #. DVT prophylaxis Heparin Disposition: Pending clinical improvement VS, I&O, 24H, Fishbone Vital Signs/I&O Vital Signs Date Time Temp Pulse Resp B/P (MAP) Pulse Ox O2 Delivery O2 Flow Rate FiO2 12/24/20 14:00 97.7 81 17 108/82 (91) 95 Room Air 12/24/20 09:00 2.0 I&O- Last 24 Hours up to 6 AM 12/24/20 06:00 Intake Total 1220 ml Output Total 2000 ml Balance -780 ml Laboratory Data 24H LABS Laboratory Tests 2 12/23/20 20:08: Bedside Glucose (Misc Panel) 215H 12/24/20 05:18: Nucleated Red Blood Cells % (auto) 0.0, Anion Gap 6L, Glomerular Filtration Rate 7.7L, Calcium Level 8.9 12/24/20 11:39: Bedside Glucose (Misc Panel) 185H 12/24/20 17:47: Bedside Glucose (Misc Panel) 122H CBC/BMP Laboratory Tests 12/24/20 05:18 Microbiology Microbiology 12/19/20 Blood Culture - Final, Complete NO GROWTH AFTER 5 DAYS 12/14/20 Blood Culture - Final, Complete NO GROWTH AFTER 5 DAYS 12/14/20 Respiratory Virus Panel (PCR) ([facility]) - Final, Complete Respiratory Syncytial Virus LISA YU MD Dec 24, 2020 18:48
[2020-12-24 22:00] VITALS: BP 135/75
[2020-12-24] MEDS: traZODone 25MG PER 1/2 TABLET PO SCH (23:03)
[2020-12-24] MEDS: OMEPRAZOLE 20 MG CAP PO SCH (23:03)
[2020-12-25 06:00] VITALS: BP 141/75
[2020-12-25] MEDS: CO-ENZYME Q10 50 MG CAP PO SCH (06:23)
[2020-12-25] MEDS: ASPIRIN 81MG ENTERIC TABLET PO SCH (06:23)
[2020-12-25] MEDS: MULTIVITAMINS/MINERALS THERAP 1 TAB PO SCH (06:23)
[2020-12-25] MEDS: BENZONATATE 100MG CAPSULE PO SCH ×3 (06:23→20:27)
[2020-12-25] MEDS: amLODIPine 5 MG TAB PO SCH (06:24)
[2020-12-25] MEDS: CARVedilol 12.5 MG TAB PO SCH (06:24)
[2020-12-25] MEDS: **hydrALAZINE HCL** 25 MG TAB PO SCH ×2 (06:25→20:28)
[2020-12-25] MEDS: SODIUM CHLORIDE 0.9% INJ 10 ML SYR IV SCH ×2 (06:26→18:00)
[2020-12-25] MEDS: traMADol 50 MG TAB PO PRN ×2 (06:39→20:29)
[2020-12-25 06:46] LABS: HEMATOCRIT 27.3 % (36.0-47.0); HEMOGLOBIN 8.2 g/dl (12.0-15.5); MEAN CORPUSCULAR HEMOGLOBIN 27.1 pg (27.0-33.0); MEAN CORPUSCULAR VOLUME 90.1 fl (80.0-96.0); PLATELET COUNT, AUTOMATED 232 10^3/uL (150-450); RED BLOOD COUNT 3.03 10^6/uL (4.00-5.40)
[2020-12-25 07:20] LABS: CREATININE FOR GFR 8.07 MG/DL (0.55-1.30); GLOMERULAR FILTRATION RATE 5.2 (>39); POTASSIUM SERUM 4.9 MEQ/L (3.5-5.1)
[2020-12-25] MEDS: COMBIVENT RESPIMAT 100-20MCG INHALER 4GM INH SCH ×3 (07:28→19:26)
[2020-12-25] MEDS: HumaLOG INSULIN (NovoLOG) PER UNIT SC SCH ×4 (08:27→20:26)
[2020-12-25] MEDS: LOPERAMIDE 2 MG CAPLET PO PRN (08:28)
[2020-12-25] MEDS: LACTOBACILLUS ACIDOPHILUS CAP (BACID) PO SCH ×2 (08:28→18:00)
[2020-12-25] MEDS: (RENVELA) SEVELAMER **CARBONate** 800 MG TAB PO SCH ×3 (08:28→18:00)
[2020-12-25] MEDS: MUPIROCIN 2% OINT 22 GM TUBE TOP SCH ×2 (08:30→20:29)
[2020-12-25] MEDS: TRIPLE PASTE 2OZ OINTMENT TOP SCH ×2 (08:30→20:30)
[2020-12-25] MEDS: ANUSOL HC CREAM 30GM TOP SCH ×2 (08:31→20:30)
[2020-12-25] MEDS: EMLA CREAM 5GM TUBE (LIDOCAINE/PRILOCAINE) TOP SCH (08:32)
--- NOTE | 2020-12-25 12:22 | IPN ---
PROGRESS NOTE DATE: 12/25/2020 SUBJECTIVE: Mrs. Acosta is seen this morning on her bedside during hemodialysis. She is feeling better today and tolerating dialysis well. Yesterday, she had some diarrhea with perianal excoriation. She denies any nausea or vomiting. She denies any dyspnea or chest pain. OBJECTIVE: VITAL SIGNS: Temperature is 98.6 degrees Fahrenheit, heart rate is 104 per minute and respiratory rate is 20 per minute, blood pressure is 140/75 mmHg and oxygen saturation 94% on room air. HEAD: Atraumatic. NECK: Supple. JVD is not abnormally elevated. HEART: Heart sounds are regular. LUNGS: Diminished breath sounds at left lower half. ABDOMEN: Soft and nontender. Bowel sounds are normal. EXTREMITIES: Without any cyanosis or clubbing. Left arm AV fistula is patent. LABORATORY DATA: Today's labs showed a WBC count of 8.0, hemoglobin 8.2 and hematocrit 27.3, platelets 232,000, sodium 138, potassium 4.9, CO2 26, BUN 50 and creatinine 8.0. Calcium level is 9.0. PROBLEMS: 1. Endstage renal disease. Patient is currently being dialyzed and tolerating dialysis well. 2. Congestive heart failure, volume status seems very well compensated and we are trying to remove about 2 liters of fluid which she is tolerating well. 3. Left pleural effusion. This is a chronic issue and she has had a PleurX catheter placed in the past. I have advised her about thoracentesis and she is reluctant. She wants to think about it and will let us know. I have also discussed with the Hospitalist about getting thoracentesis done. 4. Anemia, her anemia is chronic and she receives Aranesp 100 mcg once a week. She does not need any urgent transfusion at present. 5. Generalized weakness and deconditioning. Patient is likely to benefit from rehab. I am not sure if she will qualify for acute rehab. 6. Hypertension. Blood pressure is relatively well-controlled and no changes in antihypertensives needed.
[2020-12-25 14:00] VITALS: BP 100/62
[2020-12-25 18:00] VITALS: BP 140/79
--- NOTE | 2020-12-25 19:50 | IPNPDOC ---
Subjective Date Seen The patient was seen on 12/25/20. Subjective Chief Complaint/HPI Mrs. Acosta is a 75 year old female with CAD s/p CABG and ESRD on dialysis MWF who presents with upper abdominal pain and exertional dyspnea. Patient was seen this morning. She denies any chest pain or dyspnea. While patient was at dialysis, I discussed thoracentesis with patient. She declined thoracentesis. Thoracentesis was canceled. Otherwise, patient has been afebrile since 12/21/2020. Patient's recurrent fevers may have been secondary to using the buttonhole at dialysis. Patient has been having diarrhea. ID had recommended discontinuation of antibiotics. Nursing tells me that patient's diarrhea is soft not watery. Patient does not have any leukocytosis. No indication to look for C. difficile. Will start patient on Imodium as patient has chemical dermatitis from diarrhea Objective Physical Examination General Exam: Positive: Alert, Cooperative Eye Exam: Positive: EOMI; Negative: Sclera icteric ENT Exam: Positive: Atraumatic Neck Exam: Positive: Supple Chest Exam: Positive: Diminished Heart Exam: Positive: Rate Normal, Regular Rhythm Abdomen Exam: Positive: Normal bowel sounds, Soft; Negative: Tenderness Extremity Exam: Negative: Edema Neuro Exam: Positive: Cranial Nerves 3-12 NL Psych Exam: Positive: Mental status NL, Mood NL Assessment /Plan Assessment Mrs. Acosta is a 75 year old female with CAD s/p CABG and ESRD on dialysis MWF who presents with upper abdominal pain and exertional dyspnea. CT of the abdomen pelvis suggestive of possible fistula. General surgery consulted, recommendations appreciated. Otherwise, patient also to Zosyn and vancomycin. With addition of Zosyn, will cover for intra-abdominal organisms. Vancomycin was discontinued as MRSA PCR negative. Pending clinical improvement Otherwise, patient had a fever of 102.4 on 12/14/2020. Blood culture repeated, pending results. Antibiotics escalated from ceftriaxone and doxycycline to Zosyn and Vanco. Patient had another fever again on 12/16/2020 and on 12/17/2020. CT abdomen pelvis was negative for occult abscess. We will restart doxycycline for atypical coverage. Despite atypical coverage, patient continue to have fever (12/18/2020 Temp 102.8) and low grade temp (12/19/2020 Temp 100.1). Last fever 12/21/2020. Per nephrology's note, patient recurrent fever may be secondary to infected buttonhole in her left arm AV fistula. They have started Bactroban ointment to her needle site and stopped using the buttonhole. Otherwise, patient's has been having diarrhea secondary to antibiotics. No leukocytosis and stool not watery. Patient is having chemical dermatitis from diarrhea. We will start patient on loperamide Plan/VTE VTE Prophylaxis Ordered?: Yes Plan 1. End-stage renal disease Continue dialysis on Monday 2. Acute decompensated heart failure with combined systolic and diastolic dysfunction Echocardiogram from 03/31/2020 demonstrates EF of 40%, grade 2 diastolic dysfunction Continue with dialysis Continue with I's and O's and daily weights There is a left pleural effusion, patient declined thoracentesis 3. Possible intra-abdominal fistula Seen on CT of the abdomen pelvis General surgery consulted, recommendations appreciated. General surgery suggests that the presence of a fistula is highly unlikely. 4. Multifocal pneumonia Patient completed 7 days of Zosyn and 5 days of doxycycline MRSA PCR was negative -Procalcitonin downtrending 5. Constipation/diarrhea Patient no longer having constipation Patient now having diarrhea. No leukocytosis or fever. Diarrhea is not watery. 6. DM type II Continue sliding scale insulin 7. Shoulder pain Continue lidocaine patch 8. Hypertension Continue amlodipine, hydralazine, and Coreg 9. CAD status post CABG Continue with aspirin and Coreg 10. DVT prophylaxis Heparin Disposition: Pending clinical improvement VS, I&O, 24H, Fishbone Vital Signs/I&O Vital Signs Date Time Temp Pulse Resp B/P (MAP) Pulse Ox O2 Delivery O2 Flow Rate FiO2 12/25/20 18:00 98.1 86 19 140/79 (99) 100 Room Air 12/24/20 09:00 2.0 I&O- Last 24 Hours up to 6 AM 12/25/20 06:00 Intake Total 580 ml Balance 580 ml Laboratory Data 24H LABS Laboratory Tests 2 12/24/20 22:50: Bedside Glucose (Misc Panel) 194H 12/24/20 23:14: Troponin I 0.02 12/25/20 06:35: Nucleated Red Blood Cells % (auto) 0.0, Anion Gap 7L, Glomerular Filtration Rate 5.2L, Calcium Level 9.0 12/25/20 13:36: Bedside Glucose (Misc Panel) 79L 12/25/20 17:02: Bedside Glucose (Misc Panel) 190H 12/25/20 19:30: Bedside Glucose (Misc Panel) 174H CBC/BMP Laboratory Tests 12/25/20 06:35 Microbiology Microbiology 12/19/20 Blood Culture - Final, Complete NO GROWTH AFTER 5 DAYS HADLEY HUANG DO Dec 25, 2020 19:50
[2020-12-25] MEDS: traZODone 25MG PER 1/2 TABLET PO SCH (20:27)
[2020-12-25] MEDS: OMEPRAZOLE 20 MG CAP PO SCH (20:27)
[2020-12-25 22:00] VITALS: BP 114/66
[2020-12-26 02:00] VITALS: BP 107/62
[2020-12-26] MEDS: SODIUM CHLORIDE 0.9% INJ 10 ML SYR IV SCH ×2 (05:05→16:47)
[2020-12-26 05:24] LABS: HEMATOCRIT 26.4 % (36.0-47.0); MEAN CORPUSCULAR HEMOGLOBIN 27.3 pg (27.0-33.0); MEAN CORPUSCULAR HGB CONC 30.3 g/dl (32.0-36.5); MEAN CORPUSCULAR VOLUME 90.1 fl (80.0-96.0); PLATELET COUNT, AUTOMATED 218 10^3/uL (150-450); RED BLOOD COUNT 2.93 10^6/uL (4.00-5.40); WHITE BLOOD COUNT 6.3 10^3/uL (4.0-10.0)
[2020-12-26 05:55] LABS: ALBUMIN 2.4 GM/DL (3.2-5.2); CALCIUM LEVEL 8.4 MG/DL (8.8-10.2); CREATININE FOR GFR 5.35 MG/DL (0.55-1.30); GLOMERULAR FILTRATION RATE 8.3 (>39); PHOSPHORUS LEVEL 5.3 MG/DL (2.5-4.9); POTASSIUM SERUM 4.6 MEQ/L (3.5-5.1)
[2020-12-26 06:00] VITALS: BP 101/56
[2020-12-26] MEDS: COMBIVENT RESPIMAT 100-20MCG INHALER 4GM INH SCH ×3 (07:23→19:53)
[2020-12-26] MEDS: HumaLOG INSULIN (NovoLOG) PER UNIT SC SCH ×4 (07:30→20:26)
[2020-12-26] MEDS ORDERED: DARBEPOETIN 200MCG/0.4ML *DIALYSIS* SYRINGE (J0882 PER 1MCG) IV SCH (08:25)
[2020-12-26] MEDS: MULTIVITAMINS/MINERALS THERAP 1 TAB PO SCH (08:25)
[2020-12-26] MEDS: **hydrALAZINE HCL** 25 MG TAB PO SCH ×2 (08:25→20:23)
[2020-12-26] MEDS: LACTOBACILLUS ACIDOPHILUS CAP (BACID) PO SCH ×2 (08:25→16:46)
[2020-12-26] MEDS: (RENVELA) SEVELAMER **CARBONate** 800 MG TAB PO SCH ×3 (08:25→16:46)
[2020-12-26] MEDS: BENZONATATE 100MG CAPSULE PO SCH ×3 (08:25→20:24)
[2020-12-26] MEDS: ASPIRIN 81MG ENTERIC TABLET PO SCH (08:26)
[2020-12-26] MEDS: CARVedilol 12.5 MG TAB PO SCH (08:26)
[2020-12-26] MEDS: amLODIPine 5 MG TAB PO SCH (08:27)
[2020-12-26] MEDS: MUPIROCIN 2% OINT 22 GM TUBE TOP SCH ×2 (08:28→20:27)
[2020-12-26] MEDS: ANUSOL HC CREAM 30GM TOP SCH ×2 (08:29→20:27)
[2020-12-26] MEDS: TRIPLE PASTE 2OZ OINTMENT TOP SCH ×2 (08:30→20:28)
[2020-12-26] MEDS: CO-ENZYME Q10 50 MG CAP PO SCH (08:40)
--- NOTE | 2020-12-26 11:21 | IPN ---
PROGRESS NOTE DATE: 12/26/2020 SUBJECTIVE: Bree is seen and examined this morning at the bedside. She reports she is weak, that she cannot walk. She reports a little bit of shortness of breath, but she has been declining the thoracentesis. She is probably going to need rehabilitation placement. She was dialyzed yesterday with 2.5 liters of fluid removed. Her dialysis was uneventful. OBJECTIVE: VITAL SIGNS: Temperature 98.6, pulse 89, respiratory rate 20, blood pressure 101/56, saturating 96% on room air. INTAKE/OUTPUT: Intake yesterday was 850. Dialysis yesterday removed 2.5 liters. GENERAL: Patient is seen awake, alert and oriented, comfortable, lying in bed, elderly female in no distress. HEENT: Extraocular muscles are intact. Tongue is moist. Neck is supple. Jugular veins are not elevated. HEART: Heart sounds regular, S1, S2. LUNGS: Show diminished breath sounds on the left lower side. ABDOMEN: Soft and nontender. Bowel sounds are normal. EXTREMITIES: Without any edema, cyanosis or clubbing. There is a fistula in the left arm, which is patent. NEUROLOGIC: She is oriented x3, interactive, conversational. PSYCHIATRIC: Appropriate mood and affect. LABORATORY DATA: Today show hemoglobin 8.0, white count 6.3, platelets 218,000. Sodium 137, potassium 4.6, bicarbonate 29, BUN 34, creatinine 5.3, phosphorus 5.3, albumin 2.4. INPATIENT MEDICATIONS: Reviewed by myself. I increased her Aranesp to 200 mcg with dialysis. The remainder of her medications are unchanged as compared to yesterday. PROBLEMS: 1. End-stage renal disease on hemodialysis on a Monday, Monday, Monday schedule: Patient was dialyzed yesterday; 2.5 liters of fluid were removed. Her electrolytes are well controlled and volume status is also reasonably compensated, although she does have a chronic left pleural effusion that I do not feel will resolve with dialysis alone. 2. Combined systolic and diastolic congestive heart failure: Volume status regulated via dialysis; 2.5 liters were removed yesterday. Left ventricular ejection fraction is 40% and there is grade 2 diastolic dysfunction on her most recent echocardiogram. She continues on a moderate fluid restriction. Next dialysis will be on Monday. 3. Anemia: Hemoglobin is 8.0 on the latest labs. Patient's recent iron studies were adequate. She is receiving Aranesp with dialysis; I did increase the dose. If hemoglobin is less than 8 on her next dialysis treatment day, I will transfuse her blood with dialysis. 4. Chronic left pleural effusion: Patient is refusing thoracentesis. 5. Debilitation and decrease in functional status: Patient has been in the hospital for more than two weeks at this point, and she may require rehabilitation. 6. Hypertension: Blood pressures are well controlled and I made no change to the current regimen of Amlodipine, Carvedilol and Hydralazine.
[2020-12-26 14:00] VITALS: BP 126/89
--- NOTE | 2020-12-26 16:43 | IPNPDOC ---
Subjective Date Seen The patient was seen on 12/26/20. Subjective Chief Complaint/HPI Mrs. Acosta is a 75 year old female with CAD s/p CABG and ESRD on dialysis MWF who presents with upper abdominal pain and exertional dyspnea. This morning she denies any chest pain. She reports some shortness of breath. Revisited the idea of thoracentesis as her shortness of breath is most likely due to her left pleural effusion. Patient declined saying her shortness of breath is intermittent. Otherwise, diarrhea is better. Patient's last fever was 12/22/2019 Objective Physical Examination General Exam: Positive: Alert, Cooperative Eye Exam: Positive: EOMI; Negative: Sclera icteric ENT Exam: Positive: Atraumatic Neck Exam: Positive: Supple Chest Exam: Positive: Diminished Heart Exam: Positive: Rate Normal, Regular Rhythm Abdomen Exam: Positive: Normal bowel sounds, Soft; Negative: Tenderness Extremity Exam: Negative: Edema Neuro Exam: Positive: Cranial Nerves 3-12 NL Psych Exam: Positive: Mental status NL, Mood NL Assessment /Plan Assessment Mrs. Acosta is a 75 year old female with CAD s/p CABG and ESRD on dialysis MWF who presents with upper abdominal pain and exertional dyspnea. CT of the abdomen pelvis suggestive of possible fistula. General surgery consulted, recommendations appreciated. Otherwise, patient also to Zosyn and vancomycin. With addition of Zosyn, will cover for intra-abdominal organisms. Vancomycin was discontinued as MRSA PCR negative. Pending clinical improvement Otherwise, patient had a fever of 102.4 on 12/14/2020. Blood culture repeated, pending results. Antibiotics escalated from ceftriaxone and doxycycline to Zosyn and Vanco. Patient had another fever again on 12/16/2020 and on 12/17/2020. CT abdomen pelvis was negative for occult abscess. We will restart doxycycline for atypical coverage. Despite atypical coverage, patient continue to have fever (12/18/2020 Temp 102.8) and low grade temp (12/19/2020 Temp 100.1). Last fever 12/21/2020. Per nephrology's note, patient recurrent fever may be secondary to infected buttonhole in her left arm AV fistula. They have started Bactroban ointment to her needle site and stopped using the buttonhole. Otherwise, patient's has been having diarrhea secondary to antibiotics. No leukocytosis and stool not watery. Patient is having chemical dermatitis from diarrhea. We will start patient on loperamide Plan/VTE VTE Prophylaxis Ordered?: Yes Plan 1. End-stage renal disease Continue dialysis on Monday 2. Acute decompensated heart failure with combined systolic and diastolic dysfunction Echocardiogram from 03/31/2020 demonstrates EF of 40%, grade 2 diastolic dysfunction Continue with dialysis Continue with I's and O's and daily weights There is a left pleural effusion, patient declined thoracentesis 3. Possible intra-abdominal fistula Seen on CT of the abdomen pelvis General surgery consulted, recommendations appreciated. General surgery sugg ests that the presence of a fistula is highly unlikely. 4. Multifocal pneumonia Patient completed 7 days of Zosyn and 5 days of doxycycline MRSA PCR was negative -Procalcitonin downtrending 5. Constipation/diarrhea Patient no longer having constipation Patient now having diarrhea. No leukocytosis or fever. Diarrhea is not watery. 6. DM type II Continue sliding scale insulin 7. Shoulder pain Continue lidocaine patch 8. Hypertension Continue amlodipine, hydralazine, and Coreg 9. CAD status post CABG Continue with aspirin and Coreg 10. DVT prophylaxis Heparin Disposition: Pending clinical improvement. We will add on OT to eval patient as well. VS, I&O, 24H, Fishbone Vital Signs/I&O Vital Signs Date Time Temp Pulse Resp B/P (MAP) Pulse Ox O2 Delivery O2 Flow Rate FiO2 12/26/20 14:00 99.2 92 16 126/89 (101) 92 Room Air 12/24/20 09:00 2.0 I&O- Last 24 Hours up to 6 AM 12/26/20 06:00 Intake Total 750 ml Output Total 2500 ml Balance -1750 ml Laboratory Data 24H LABS Laboratory Tests 2 12/25/20 17:02: Bedside Glucose (Misc Panel) 190H 12/25/20 19:30: Bedside Glucose (Misc Panel) 174H 12/26/20 05:10: Nucleated Red Blood Cells % (auto) 0.0, Anion Gap 6L, Glomerular Filtration Rate 8.3L, Calcium Level 8.4L, Phosphorus Level 5.3H, Albumin 2.4L 12/26/20 11:26: Bedside Glucose (Misc Panel) 248H CBC/BMP Laboratory Tests 12/26/20 05:10 Microbiology Microbiology 12/19/20 Blood Culture - Final, Complete NO GROWTH AFTER 5 DAYS HADLEY HUANG DO Dec 26, 2020 16:43
[2020-12-26] MEDS: ACETAMINOPHEN TAB 650MG DOSE (2X325MG) PO PRN (16:47)
--- NOTE | 2020-12-26 17:37 | ECGEPIP ---
[facility] Test Date: 2020-12-24 Pat Name: RONNIE BRAN Department: Room: [place] [address] Gender: Female Help Desk Associate: RODRIGO : 1945 Requested By: LISA YU Order Number: [id number] Reading MD: Salvatore Gage Measurements Intervals [place] Rate: 81 P: 72 SC: 192 QRS: 30 QRSD: 96 T: 102 QT: 412 QTc: 478 Interpretive Statements Normal sinus rhythm Low voltage in the limb leads Minimal voltage criteria for LVH, may be normal variant ( Juancarlos product ) Possible inferior infarct , age undetermined Possible anterior infarct , age undetermined. May be related to Poor R wave progression Non specific ST/T abnormality Compared to prior tracings(3) in the system. No remarkable changes Electronically Signed on 12-26-2020 17:37:03 EDT by Salvatore Gage
[2020-12-26] MEDS: OMEPRAZOLE 20 MG CAP PO SCH (20:24)
[2020-12-26] MEDS: traMADol 50 MG TAB PO PRN (20:25)
[2020-12-26] MEDS: traZODone 25MG PER 1/2 TABLET PO SCH (20:25)
[2020-12-26] MEDS ORDERED: MORPHINE 2 MG/ML 1ML VIAL (J2270) IV ONE (21:30)
[2020-12-26] MEDS: SODIUM CHLORIDE 0.9% INJ 10 ML SYR IV PRN (21:46)
[2020-12-26 22:00] VITALS: BP 137/90
[2020-12-27] MEDS: SODIUM CHLORIDE 0.9% INJ 10 ML SYR IV SCH ×2 (05:01→16:47)
[2020-12-27 05:18] LABS: HEMATOCRIT 27.5 % (36.0-47.0); HEMOGLOBIN 8.3 g/dl (12.0-15.5); MEAN CORPUSCULAR HGB CONC 30.2 g/dl (32.0-36.5); MEAN CORPUSCULAR VOLUME 89.6 fl (80.0-96.0); PLATELET COUNT, AUTOMATED 249 10^3/uL (150-450); RED BLOOD COUNT 3.07 10^6/uL (4.00-5.40); WHITE BLOOD COUNT 7.1 10^3/uL (4.0-10.0)
[2020-12-27 05:43] LABS: ALBUMIN 2.4 GM/DL (3.2-5.2); CALCIUM LEVEL 8.3 MG/DL (8.8-10.2); CREATININE FOR GFR 7.48 MG/DL (0.55-1.30); GLOMERULAR FILTRATION RATE 5.7 (>39); PHOSPHORUS LEVEL 6.8 MG/DL (2.5-4.9)
[2020-12-27 06:00] VITALS: BP 141/61
[2020-12-27] MEDS: COMBIVENT RESPIMAT 100-20MCG INHALER 4GM INH SCH ×3 (07:21→20:00)
[2020-12-27] MEDS: HumaLOG INSULIN (NovoLOG) PER UNIT SC SCH ×4 (07:30→20:42)
[2020-12-27] MEDS: CO-ENZYME Q10 50 MG CAP PO SCH (08:30)
[2020-12-27] MEDS: (RENVELA) SEVELAMER **CARBONate** 800 MG TAB PO SCH ×3 (08:30→16:47)
[2020-12-27] MEDS: LACTOBACILLUS ACIDOPHILUS CAP (BACID) PO SCH ×2 (08:30→16:47)
[2020-12-27] MEDS: ASPIRIN 81MG ENTERIC TABLET PO SCH (08:30)
[2020-12-27] MEDS: MULTIVITAMINS/MINERALS THERAP 1 TAB PO SCH (08:30)
[2020-12-27] MEDS: LOPERAMIDE 2 MG CAPLET PO PRN (08:30)
[2020-12-27] MEDS: BENZONATATE 100MG CAPSULE PO SCH ×3 (08:30→20:39)
[2020-12-27] MEDS: traMADol 50 MG TAB PO PRN ×2 (08:31→20:41)
[2020-12-27] MEDS: amLODIPine 5 MG TAB PO SCH (08:33)
[2020-12-27] MEDS: **hydrALAZINE HCL** 25 MG TAB PO SCH ×2 (08:33→20:39)
[2020-12-27] MEDS: CARVedilol 12.5 MG TAB PO SCH (08:34)
[2020-12-27] MEDS: ANUSOL HC CREAM 30GM TOP SCH ×2 (08:34→20:43)
[2020-12-27] MEDS: TRIPLE PASTE 2OZ OINTMENT TOP SCH ×2 (08:36→20:43)
[2020-12-27] MEDS: MUPIROCIN 2% OINT 22 GM TUBE TOP SCH ×2 (08:37→20:42)
[2020-12-27] MEDS ORDERED: FIORICET TAB PO PRN (10:30)
--- NOTE | 2020-12-27 10:35 | IPNPDOC ---
Subjective Date Seen The patient was seen on 12/27/20. Subjective Chief Complaint/HPI Mrs. Acosta is a 75 year old female with CAD s/p CABG and ESRD on dialysis MWF who presents with upper abdominal pain and exertional dyspnea. Overnight she had a headache. She does not member what she took last night but told me that the IV medication helped. Patient was given 1 mg of morphine overnight for headache. This morning, she denied any chest pain or dyspnea. She still had the headache. It is not the worst headache in her life. She told me gradually occurred. We will add on Fioricet as needed for headache. Objective Physical Examination General Exam: Positive: Alert, Cooperative Eye Exam: Positive: EOMI; Negative: Sclera icteric ENT Exam: Positive: Atraumatic Neck Exam: Positive: Supple Chest Exam: Positive: Diminished Heart Exam: Positive: Rate Normal, Regular Rhythm Abdomen Exam: Positive: Normal bowel sounds, Soft; Negative: Tenderness Extremity Exam: Negative: Edema Neuro Exam: Positive: Cranial Nerves 3-12 NL Psych Exam: Positive: Mental status NL, Mood NL Assessment /Plan Assessment Mrs. Acosta is a 75 year old female with CAD s/p CABG and ESRD on dialysis MWF who presents with upper abdominal pain and exertional dyspnea. CT of the abdomen pelvis suggestive of possible fistula. General surgery consulted, recom mendations appreciated. Otherwise, patient also to Zosyn and vancomycin. With addition of Zosyn, will cover for intra-abdominal organisms. Vancomycin was discontinued as MRSA PCR negative. Pending clinical improvement Otherwise, patient had a fever of 102.4 on 12/14/2020. Blood culture repeated, pending results. Antibiotics escalated from ceftriaxone and doxycycline to Zosyn and Vanco. Patient had another fever again on 12/16/2020 and on 12/17/2020. CT abdomen pelvis was negative for occult abscess. We will restart doxycycline for atypical coverage. Despite atypical coverage, patient continue to have fever (12/18/2020 Temp 102.8) and low grade temp (12/19/2020 Temp 100.1). Last fever 12/21/2020. Per nephrology's note, patient recurrent fever may be secondary to infected buttonhole in her left arm AV fistula. They have started Bactroban ointment to her needle site and stopped using the buttonhole. Otherwise, patient's has been having diarrhea secondary to antibiotics. No le ukocytosis and stool not watery. Patient is having chemical dermatitis from diarrhea. We will start patient on loperamide Plan/VTE VTE Prophylaxis Ordered?: Yes Plan 1. End-stage renal disease Continue dialysis on Monday 2. Acute decompensated heart failure with combined systolic and diastolic dysfunction Echocardiogram from 03/31/2020 demonstrates EF of 40%, grade 2 diastolic dysfunction Continue with dialysis Continue with I's and O's and daily weights There is a left pleural effusion, patient declined thoracentesis 3. Possible intra-abdominal fistula Seen on CT of the abdomen pelvis General surgery consulted, recommendations appreciated. General surgery suggests that the presence of a fistula is highly unlikely. 4. Multifocal pneumonia Patient completed 7 days of Zosyn and 5 days of doxycycline MRSA PCR was negative -Procalcitonin downtrending 5. Constipation/diarrhea Patient no longer having constipation Patient now having diarrhea. No leukocytosis or fever. Diarrhea is not watery. 6. DM type II Continue sliding scale insulin 7. Shoulder pain Continue lidocaine patch 8. Hypertension Continue amlodipine, hydralazine, and Coreg 9. CAD status post CABG Continue with aspirin and Coreg 10. DVT prophylaxis Heparin Disposition: Pending clinical improvement, PT, and OT VS, I&O, 24H, Fishbone Vital Signs/I&O Vital Signs Date Time Temp Pulse Resp B/P (MAP) Pulse Ox O2 Delivery O2 Flow Rate FiO2 12/27/20 08:34 101 163/90 12/27/20 08:31 18 Room Air 12/27/20 06:00 98.5 92 12/24/20 09:00 2.0 I&O- Last 24 Hours up to 6 AM 12/27/20 06:00 Intake Total 1060 ml Output Total 0 ml Balance 1060 ml Laboratory Data 24H LABS Laboratory Tests 2 12/26/20 11:26: Bedside Glucose (Misc Panel) 248H 12/26/20 16:32: Bedside Glucose (Misc Panel) 93 12/26/20 19:47: Bedside Glucose (Misc Panel) 177H 12/27/20 05:10: Nucleated Red Blood Cells % (auto) 0.0, Anion Gap 8, Glomerular Filtration Rate 5.7L, Calcium Level 8.3L, Phosphorus Level 6.8#H, Albumin 2.4L CBC/BMP Laboratory Tests 12/27/20 05:10 Microbiology Microbiology 12/19/20 Blood Culture - Final, Complete NO GROWTH AFTER 5 DAYS HADLEY HUANG DO Dec 27, 2020 10:35
[2020-12-27 14:00] VITALS: BP 116/58
[2020-12-27 20:31] VITALS: BP 151/87
[2020-12-27] MEDS: traZODone 25MG PER 1/2 TABLET PO SCH (20:39)
[2020-12-27] MEDS: OMEPRAZOLE 20 MG CAP PO SCH (20:40)
[2020-12-28] VITALS (14 sets, daily range): BP systolic 127–174; BP diastolic 62–88
[2020-12-28] MEDS: SODIUM CHLORIDE 0.9% INJ 10 ML SYR IV SCH ×2 (05:16→20:01)
[2020-12-28] MEDS: BENZONATATE 100MG CAPSULE PO SCH ×3 (05:24→21:03)
[2020-12-28] MEDS: (RENVELA) SEVELAMER **CARBONate** 800 MG TAB PO SCH ×3 (05:26→21:03)
[2020-12-28] MEDS: CO-ENZYME Q10 50 MG CAP PO SCH (05:27)
[2020-12-28] MEDS: MULTIVITAMINS/MINERALS THERAP 1 TAB PO SCH (05:27)
[2020-12-28] MEDS: ASPIRIN 81MG ENTERIC TABLET PO SCH (05:28)
[2020-12-28] MEDS: LACTOBACILLUS ACIDOPHILUS CAP (BACID) PO SCH ×2 (05:28→21:03)
[2020-12-28] MEDS: **hydrALAZINE HCL** 25 MG TAB PO SCH ×2 (05:29→21:02)
[2020-12-28] MEDS: CARVedilol 12.5 MG TAB PO SCH (05:30)
[2020-12-28] MEDS: amLODIPine 5 MG TAB PO SCH (05:30)
[2020-12-28] MEDS: traMADol 50 MG TAB PO PRN ×2 (05:32→13:45)
[2020-12-28] MEDS: HumaLOG INSULIN (NovoLOG) PER UNIT SC SCH ×4 (07:30→20:46)
[2020-12-28] MEDS: COMBIVENT RESPIMAT 100-20MCG INHALER 4GM INH SCH ×3 (07:38→20:00)
[2020-12-28] MEDS ORDERED: SODIUM CHLORIDE 0.9% 1000ML IV PRN (10:45)
[2020-12-28] MEDS ORDERED: LIDOCAINE 1% SDV 5ML VIAL SC PRN (10:45)
[2020-12-28] MEDS: TRIPLE PASTE 2OZ OINTMENT TOP SCH ×2 (12:01→21:05)
[2020-12-28] MEDS: MUPIROCIN 2% OINT 22 GM TUBE TOP SCH ×2 (12:01→21:03)
[2020-12-28] MEDS: ANUSOL HC CREAM 30GM TOP SCH ×2 (12:02→21:04)
--- NOTE | 2020-12-28 12:04 | IPNPDOC ---
Subjective Date Seen The patient was seen on 12/28/20. Subjective Chief Complaint/HPI Mrs. Acosta is a 75 year old female with CAD s/p CABG and ESRD on dialysis MWF who presents with upper abdominal pain and exertional dyspnea. This morning, she denied any chest pain or dyspnea. Pending OT evaluation. Objective Physical Examination General Exam: Positive: Alert, Cooperative Eye Exam: Positive: EOMI; Negative: Sclera icteric ENT Exam: Positive: Atraumatic Neck Exam: Positive: Supple Chest Exam: Positive: Diminished Heart Exam: Positive: Rate Normal, Regular Rhythm Abdomen Exam: Positive: Normal bowel sounds, Soft; Negative: Tenderness Extremity Exam: Negative: Edema Neuro Exam: Positive: Cranial Nerves 3-12 NL Psych Exam: Positive: Mental status NL, Mood NL Assessment /Plan Assessment Mrs. Acosta is a 75 year old female with CAD s/p CABG and ESRD on dialysis MWF who presents with upper abdominal pain and exertional dyspnea. CT of the abdomen pelvis suggestive of possible fistula. General surgery consulted, recommendations appreciated. Otherwise, patient also to Zosyn and vancomycin. With addition of Zosyn, will cover for intra-abdominal organisms. Vancomycin was discontinued as MRSA PCR negative. Pending clinical improvement Otherwise, patient had a fever of 102.4 on 12/14/2020. Blood culture repeated, pending results. Antibiotics escalated from ceftriaxone and doxycycline to Zosyn and Vanco. Patient had another fever again on 12/16/2020 and on 12/17/2020. CT abdomen pelvis was negative for occult abscess. We will restart doxycycline for atypical coverage. Despite atypical coverage, patient continue to have fever (12/18/2020 Temp 102.8) and low grade temp (12/19/2020 Temp 100.1). Last fever 12/21/2020. Per nephrology's note, patient recurrent fever may be secondary to infected buttonhole in her left arm AV fistula. They have started Bactroban ointment to her needle site and stopped using the buttonhole. Otherwise, patient's has been having diarrhea secondary to antibiotics. No leukocytosis and stool not watery. Patient is having chemical dermatitis from diarrhea. We will start patient on loperamide Plan/VTE VTE Prophylaxis Ordered?: Yes Plan 1. End-stage renal disease Continue dialysis on Monday 2. Acute decompensated heart failure with combined systolic and diastolic dysfunction Echocardiogram from 03/31/2020 demonstrates EF of 40%, grade 2 diastolic dysfunction Continue with dialysis Continue with I's and O's and daily weights There is a left pleural effusion, patient declined thoracentesis 3. Possible intra-abdominal fistula Seen on CT of the abdomen pelvis General surgery consulted, recommendations appreciated. General surgery suggests that the presence of a fistula is highly unlikely. 4. Multifocal pneumonia Patient completed 7 days of Zosyn and 5 days of doxycycline MRSA PCR was negative -Procalcitonin downtrending 5. Constipation/diarrhea Patient no longer having constipation Patient now having diarrhea. No leukocytosis or fever. Diarrhea is not watery. 6. DM type II Continue sliding scale insulin 7. Shoulder pain Continue lidocaine patch 8. Hypertension Continue amlodipine, hydralazine, and Coreg 9. CAD status post CABG Continue with aspirin and Coreg 10. DVT prophylaxis Heparin Disposition: Pending clinical improvement, PT, and OT VS, I&O, 24H, Fishbone Vital Signs/I&O Vital Signs Date Time Temp Pulse Resp B/P (MAP) Pulse Ox O2 Delivery O2 Flow Rate FiO2 12/28/20 10:00 97.7 78 18 127/78 (94) 93 Room Air 12/24/20 09:00 2.0 I&O- Last 24 Hours up to 6 AM 12/28/20 06:00 Intake Total 460 ml Balance 460 ml Laboratory Data 24H LABS Laboratory Tests 2 12/27/20 16:34: Bedside Glucose (Misc Panel) 74L 12/27/20 19:47: Bedside Glucose (Misc Panel) 86 12/28/20 07:57: Bedside Glucose (Misc Panel) 147H 12/28/20 11:30: Bedside Glucose (Misc Panel) 184H Microbiology Microbiology 12/19/20 Blood Culture - Final, Complete NO GROWTH AFTER 5 DAYS HADLEY HUANG DO Dec 28, 2020 12:04
--- NOTE | 2020-12-28 12:50 | IPN ---
PROGRESS NOTE DATE: 12/28/2020 SUBJECTIVE: Bree is seen and examined this morning at the bedside and later in the afternoon in the hemodialysis unit receiving treatment. She complains of feeling generally weak or tired but denies any other acute issues. No shortness of breath. Her dialysis treatment has been uneventful. OBJECTIVE: VITAL SIGNS: Temperature is 97.7, pulse is 78, respiratory rate is 18, blood pressure is 127/78, saturating 93% on room air. INTAKE AND OUTPUT: Intake yesterday was not fully recorded. Goal dialysis fluid removal today is 2 to 2.5 liters. GENERAL: Patient is seen awake, alert and oriented, comfortable, receiving her dialysis treatment in no distress. Elderly female. HEENT: Extraocular muscles are intact. Tongue is moist. NECK: Supple. Jugular veins are not elevated. HEART: The heart sounds are regular, S1 and S2. There is no peripheral edema. There is no dependent edema. LUNGS: Lungs sound fairly clear today. No accessory muscle use. She is comfortable on room air. There are diminished breath sounds on the left base. ABDOMEN: Soft and nontender. EXTREMITIES: There is a fistula in the left arm which is patent and in use. NEUROLOGIC: She is oriented x3, interactive and conversational. PSYCHIATRIC: Appropriate mood and affect. LABORATORY DATA: White count is 7.1, hemoglobin is 8.3, platelets are 249,000, sodium is 138, potassium is 5.0, bicarbonate is 27, phosphorus is 6.8. INPATIENT MEDICATIONS: Reviewed by myself. There were no changes in the past 24 hours. PROBLEMS: 1. Endstage renal disease on hemodialysis on a Monday, Monday and Monday schedule. Patient is being dialyzed today with goal fluid removal of 2 to 2.5 liters as tolerated by her hemodynamics. Her electrolytes are acceptable. Her fistula is in good use. She has a chronic left pleural effusion but I do not feel that it will resolve with dialysis alone. 2. Combined systolic and diastolic congestive heart failure, volume status regulated via dialysis. Goal fluid removal today will be at least 2.5 liters as tolerated and she continues on a moderate fluid restriction. Most recent echocardiogram with left ventricular ejection fraction of 40% along with Grade 2 diastolic dysfunction. 3. Anemia, hemoglobin is 8.3 on the latest labs. Her recent iron studies were adequate. I increased the dose of Aranesp with dialysis and I would transfuse her for a hemoglobin less than 8. 4. Chronic left pleural effusion. Patient has a prior history of thoracentesis back in 2014 and she is currently refusing to have a repeat thoracentesis done. She is saturating well on room air. 5. Hypertension. Blood pressures are well-controlled. She continues on amlodipine, Carvedilol and hydralazine. If there is any trouble with hypotension of hemodialysis then we will scale back on her antihypertensives. 6. Secondary hyperparathyroidism of renal origin. Phosphorus level is above goal. She continues on Sevelamer phosphorus binder.
[2020-12-28 12:58] LABS: MEAN CORPUSCULAR HEMOGLOBIN 27.6 pg (27.0-33.0); MEAN CORPUSCULAR HGB CONC 30.9 g/dl (32.0-36.5); MEAN CORPUSCULAR VOLUME 89.4 fl (80.0-96.0); PLATELET COUNT, AUTOMATED 201 10^3/uL (150-450); RED BLOOD COUNT 2.46 10^6/uL (4.00-5.40)
[2020-12-28 13:26] LABS: HEMOGLOBIN 6.8 g/dl (12.0-15.5)
[2020-12-28 13:38] LABS: ALBUMIN 2.6 GM/DL (3.2-5.2); CREATININE FOR GFR 10.4 MG/DL (0.55-1.30); GLOMERULAR FILTRATION RATE 3.9 (>39); PHOSPHORUS LEVEL 7.9 MG/DL (2.5-4.9); POTASSIUM SERUM 5.4 MEQ/L (3.5-5.1)
[2020-12-28] MEDS: OMEPRAZOLE 20 MG CAP PO SCH (21:02)
[2020-12-28] MEDS: traZODone 25MG PER 1/2 TABLET PO SCH (21:03)
[2020-12-29 02:00] VITALS: BP 109/59
[2020-12-29 06:00] VITALS: BP 103/63
[2020-12-29] MEDS: SODIUM CHLORIDE 0.9% INJ 10 ML SYR IV SCH ×2 (06:09→18:12)
[2020-12-29 06:43] LABS: HEMATOCRIT 32.7 % (36.0-47.0); MEAN CORPUSCULAR HEMOGLOBIN 27.7 pg (27.0-33.0); MEAN CORPUSCULAR HGB CONC 31.8 g/dl (32.0-36.5); MEAN CORPUSCULAR VOLUME 87.2 fl (80.0-96.0); PLATELET COUNT, AUTOMATED 201 10^3/uL (150-450); RED BLOOD COUNT 3.75 10^6/uL (4.00-5.40); WHITE BLOOD COUNT 6.5 10^3/uL (4.0-10.0)
[2020-12-29 06:59] LABS: ALBUMIN 2.3 GM/DL (3.2-5.2); CALCIUM LEVEL 8.9 MG/DL (8.8-10.2); CREATININE FOR GFR 6.54 MG/DL (0.55-1.30); GLOMERULAR FILTRATION RATE 6.6 (>39); PHOSPHORUS LEVEL 4.7 MG/DL (2.5-4.9); POTASSIUM SERUM 4.8 MEQ/L (3.5-5.1)
[2020-12-29 07:01] LABS: HEMOGLOBIN 10.4 g/dl (12.0-15.5)
[2020-12-29] MEDS: HumaLOG INSULIN (NovoLOG) PER UNIT SC SCH ×4 (07:30→20:45)
[2020-12-29] MEDS: COMBIVENT RESPIMAT 100-20MCG INHALER 4GM INH SCH ×3 (08:07→20:21)
[2020-12-29] MEDS: CO-ENZYME Q10 50 MG CAP PO SCH (09:15)
[2020-12-29] MEDS: (RENVELA) SEVELAMER **CARBONate** 800 MG TAB PO SCH ×3 (09:15→18:11)
[2020-12-29] MEDS: LACTOBACILLUS ACIDOPHILUS CAP (BACID) PO SCH ×2 (09:16→18:12)
[2020-12-29] MEDS: BENZONATATE 100MG CAPSULE PO SCH ×3 (09:16→20:54)
[2020-12-29] MEDS: MULTIVITAMINS/MINERALS THERAP 1 TAB PO SCH (09:17)
[2020-12-29] MEDS: amLODIPine 5 MG TAB PO SCH (09:18)
[2020-12-29] MEDS: CARVedilol 12.5 MG TAB PO SCH (09:18)
[2020-12-29] MEDS: ASPIRIN 81MG ENTERIC TABLET PO SCH (09:18)
[2020-12-29] MEDS: **hydrALAZINE HCL** 25 MG TAB PO SCH ×2 (09:18→20:45)
[2020-12-29] MEDS: TRIPLE PASTE 2OZ OINTMENT TOP SCH ×3 (09:19→21:00)
[2020-12-29] MEDS: ANUSOL HC CREAM 30GM TOP SCH ×3 (09:20→21:00)
[2020-12-29] MEDS: MUPIROCIN 2% OINT 22 GM TUBE TOP SCH ×2 (09:20→20:55)
[2020-12-29 10:00] VITALS: BP 142/82
--- NOTE | 2020-12-29 11:22 | IPNPDOC ---
Subjective Date Seen The patient was seen on 12/29/20. Subjective Chief Complaint/HPI Mrs. Acosta is a 75 year old female with CAD s/p CABG and ESRD on dialysis MWF who presents with upper abdominal pain and exertional dyspnea. Yesterday, she required 2u of pRBC at dialysis. Hemoglobin response is greater than expected. Will continue monitoring hemoglobin. Otherwise, this morning, she is feeling better. Her pain from her bottom yesterday improved. Her headaches are intermittent. I asked her about the thoracentesis again, but she vehemently declines. I encouraged her to work with physical therapy today. Objective Physical Examination General Exam: Positive: Alert, Cooperative Eye Exam: Positive: EOMI; Negative: Sclera icteric ENT Exam: Positive: Atraumatic Neck Exam: Positive: Supple Chest Exam: Positive: Diminished Heart Exam: Positive: Rate Normal, Regular Rhythm Abdomen Exam: Positive: Normal bowel sounds, Soft; Negative: Tenderness Extremity Exam: Negative: Edema Neuro Exam: Positive: Cranial Nerves 3-12 NL Psych Exam: Positive: Mental status NL, Mood NL Assessment /Plan Assessment Mrs. Acosta is a 75 year old female with CAD s/p CABG and ESRD on dialysis MWF who presents with upper abdominal pain and exertional dyspnea. CT of the abdomen pelvis suggestive of possible fistula. General surgery consulted, recommendations appreciated. Otherwise, patient also to Zosyn and vancomycin. With addition of Zosyn, will cover for intra-abdominal organisms. Vancomycin was discontinued as MRSA PCR negative. Pending clinical improvement Otherwise, patient had a fever of 102.4 on 12/14/2020. Blood culture repeated, pending results. Antibiotics escalated from ceftriaxone and doxycycline to Zosyn and Vanco. Patient had another fever again on 12/16/2020 and on 12/17/2020. CT abdomen pelvis was negative for occult abscess. We will restart doxycycline for atypical coverage. Despite atypical coverage, patient continue to have fever (12/18/2020 Temp 102.8) and low grade temp (12/19/2020 Temp 100.1). Last fever 12/21/2020. Per nephrology's note, patient recurrent fever may be secondary to infected buttonhole in her left arm AV fistula. They have started Bactroban ointment to her needle site and stopped using the buttonhole. Otherwise, patient's has been having diarrhea secondary to antibiotics. No leukocytosis and stool not watery. Patient is having chemical dermatitis from diarrhea. We will start patient on loperamide Plan/VTE VTE Prophylaxis Ordered?: Yes Plan 1. End-stage renal disease Continue dialysis on Monday 2. Acute decompensated heart failure with combined systolic and diastolic dysfunction Echocardiogram from 03/31/2020 demonstrates EF of 40%, grade 2 diastolic dysfunction Continue with dialysis Continue with I's and O's and daily weights There is a left pleural effusion, patient declined thoracentesis 3. Possible intra-abdominal fistula Seen on CT of the abdomen pelvis General surgery consulted, recommendations appreciated. General surgery suggests that the presence of a fistula is highly unlikely. 4. Multifocal pneumonia Patient completed 7 days of Zosyn and 5 days of doxycycline MRSA PCR was negative -Procalcitonin downtrending 5. Constipation/diarrhea Patient no longer having constipation Patient now having diarrhea. No leukocytosis or fever. Diarrhea is not watery. 6. DM type II Continue sliding scale insulin 7. Shoulder pain Continue lidocaine patch 8. Hypertension Continue amlodipine, hydralazine, and Coreg 9. CAD status post CABG Continue with aspirin and Coreg 10. DVT prophylaxis Heparin Disposition: Will monitor H&H today, if hemoglobin remains stable, patient would be medically optimized. Pending PT and OT VS, I&O, 24H, Fishbone Vital Signs/I&O Vital Signs Date Time Temp Pulse Resp B/P (MAP) Pulse Ox O2 Delivery O2 Flow Rate FiO2 12/29/20 10:00 98.5 89 20 142/82 (102) 95 Room Air 12/28/20 18:30 16.0 I&O- Last 24 Hours up to 6 AM 12/29/20 05:59 Intake Total 1810 ml Output Total 2500 ml Balance -690 ml Laboratory Data 24H LABS Laboratory Tests 2 12/28/20 11:30: Bedside Glucose (Misc Panel) 184H 12/28/20 12:27: Nucleated Red Blood Cells % (auto) 0.0, Anion Gap 10, Glomerular Filtration Rate 3.9L, Calcium Level 9.0, Phosphorus Level 7.9H, Albumin 2.6L 12/28/20 19:49: Bedside Glucose (Misc Panel) 34*L 12/28/20 20:03: Bedside Glucose Confirm (Misc) 80 12/28/20 20:39: Bedside Glucose (Misc Panel) 56L 12/28/20 21:17: Bedside Glucose (Misc Panel) 82L 12/29/20 01:06: Bedside Glucose (Misc Panel) 123H 12/29/20 06:12: Nucleated Red Blood Cells % (auto) 0.0, Anion Gap 6L, Glomerular Filtration Rate 6.6L, Calcium Level 8.9, Phosphorus Level 4.7#, Albumin 2.3L CBC/BMP Laboratory Tests 12/28/20 12:27 12/29/20 06:12 Microbiology Microbiology 12/19/20 Blood Culture - Final, Complete NO GROWTH AFTER 5 DAYS HADLEY HUANG DO Dec 29, 2020 11:22
--- NOTE | 2020-12-29 12:55 | REP ---
INDICATION: pleural effusion. COMPARISON: 12/14/2020. TECHNIQUE: Single portable AP view of the chest was performed. FINDINGS: There is stable cardiomegaly. Vasculature is prominent. Bilateral infiltrates have improved. There are small bilateral effusions. There are multiple sternal wires mediastinal clips present. A stent is seen overlying the superior mediastinum. A right arm PICC line is seen with the tip in the superior vena cava. IMPRESSION: Bilateral infiltrates predominantly inferiorly have improved since the prior study. There are small bilateral pleural effusions. <Electronically signed by Bebeto Tripp > 12/29/20 [id number]
[2020-12-29 14:00] VITALS: BP 139/80
[2020-12-29 18:00] VITALS: BP 158/92
[2020-12-29] MEDS: traZODone 25MG PER 1/2 TABLET PO SCH (20:54)
[2020-12-29] MEDS: OMEPRAZOLE 20 MG CAP PO SCH (20:54)
[2020-12-29 22:00] VITALS: BP 135/79
[2020-12-30 02:00] VITALS: BP 120/50
[2020-12-30] MEDS: **hydrALAZINE HCL** 25 MG TAB PO SCH ×2 (05:26→20:44)
[2020-12-30] MEDS: amLODIPine 5 MG TAB PO SCH (05:26)
[2020-12-30] MEDS: SODIUM CHLORIDE 0.9% INJ 10 ML SYR IV SCH ×2 (05:36→17:02)
[2020-12-30] MEDS: BENZONATATE 100MG CAPSULE PO SCH ×4 (05:38→20:46)
[2020-12-30] MEDS: ASPIRIN 81MG ENTERIC TABLET PO SCH (05:38)
[2020-12-30] MEDS: CO-ENZYME Q10 50 MG CAP PO SCH (05:39)
[2020-12-30] MEDS: MULTIVITAMINS/MINERALS THERAP 1 TAB PO SCH (05:39)
[2020-12-30] MEDS: CARVedilol 12.5 MG TAB PO SCH (05:39)
[2020-12-30 06:00] VITALS: BP 115/63
[2020-12-30 06:01] LABS: HEMATOCRIT 33.6 % (36.0-47.0); HEMOGLOBIN 10.5 g/dl (12.0-15.5); MEAN CORPUSCULAR HEMOGLOBIN 27.3 pg (27.0-33.0); MEAN CORPUSCULAR HGB CONC 31.3 g/dl (32.0-36.5); MEAN CORPUSCULAR VOLUME 87.3 fl (80.0-96.0); PLATELET COUNT, AUTOMATED 198 10^3/uL (150-450); RED BLOOD COUNT 3.85 10^6/uL (4.00-5.40); WHITE BLOOD COUNT 6.9 10^3/uL (4.0-10.0)
[2020-12-30 06:29] LABS: ALBUMIN 2.4 GM/DL (3.2-5.2); CREATININE FOR GFR 8.55 MG/DL (0.55-1.30); GLOMERULAR FILTRATION RATE 4.8 (>39); PHOSPHORUS LEVEL 4.5 MG/DL (2.5-4.9)
[2020-12-30] MEDS: HumaLOG INSULIN (NovoLOG) PER UNIT SC SCH ×5 (07:30→20:46)
[2020-12-30] MEDS: (RENVELA) SEVELAMER **CARBONate** 800 MG TAB PO SCH ×4 (08:00→17:15)
[2020-12-30] MEDS: LACTOBACILLUS ACIDOPHILUS CAP (BACID) PO SCH ×3 (08:00→17:15)
[2020-12-30] MEDS: COMBIVENT RESPIMAT 100-20MCG INHALER 4GM INH SCH ×3 (08:11→19:18)
[2020-12-30] MEDS ORDERED: SODIUM CHLORIDE 0.9% 1000ML IV PRN (08:45)
[2020-12-30] MEDS ORDERED: LIDOCAINE 1% SDV 5ML VIAL SC PRN (08:45)
--- NOTE | 2020-12-30 12:26 | IPNPDOC ---
Subjective Date Seen The patient was seen on 12/30/20. Subjective Chief Complaint/HPI Mrs. Acosta is a 75 year old female with CAD s/p CABG and ESRD on dialysis MWF who presents with upper abdominal pain and exertional dyspnea. She was seen at dialysis. She was sleepy at dialysis. Denied any chest pain. Patient will need to work with PT. Will make her ALC today. Objective Physical Examination General Exam: Positive: Alert, Cooperative Eye Exam: Positive: EOMI; Negative: Sclera icteric ENT Exam: Positive: Atraumatic Neck Exam: Positive: Supple Chest Exam: Positive: Diminished Heart Exam: Positive: Rate Normal, Regular Rhythm Abdomen Exam: Positive: Normal bowel sounds, Soft; Negative: Tenderness Extremity Exam: Negative: Edema Neuro Exam: Positive: Cranial Nerves 3-12 NL Psych Exam: Positive: Mental status NL, Mood NL Assessment /Plan Assessment Mrs. Acosta is a 75 year old female with CAD s/p CABG and ESRD on dialysis MWF who presents with upper abdominal pain and exertional dyspnea. CT of the abdomen pelvis suggestive of possible fistula. General surgery consulted, recommendations appreciated. Otherwise, patient also to Zosyn and vancomycin. With addition of Zosyn, will cover for intra-abdominal organisms. Vancomycin was discontinued as MRSA PCR negative. Pending clinical improvement Otherwise, patient had a fever of 102.4 on 12/14/2020. Blood culture repeated, pending results. Antibiotics escalated from ceftriaxone and doxycycline to Zosyn and Vanco. Patient had another fever again on 12/16/[address] abdomen pelvis was negative for occult abscess. We will restart doxycycline for atypical coverage. Despite atypical coverage, patient continue to have fever (12/18/2020 Temp 102.8) and low grade temp (12/19/2020 Temp 100.1). Last fever 12/21/2020. Per nephrology's note, patient recurrent fever may be secondary to infected buttonhole in her left arm AV fistula. They have started Bactroban ointment to her needle site and stopped using the buttonhole. Otherwise, patient's has been having diarrhea secondary to antibiotics. No leukocytosis and stool not watery. Patient is having chemical dermatitis from diarrhea. We will start patient on loperamide Plan/VTE VTE Prophylaxis Ordered?: Yes Plan 1. End-stage renal disease Continue dialysis on Monday 2. Acute decompensated heart failure with combined systolic and diastolic dysfunction Echocardiogram from 03/31/2020 demonstrates EF of 40%, grade 2 diastolic dysfunction Continue with dialysis Continue with I's and O's and daily weights There is a left pleural effusion, patient declined thoracentesis 3. Possible intra-abdominal fistula Seen on CT of the abdomen pelvis General surgery consulted, recommendations appreciated. General surgery suggests that the presence of a fistula is highly unlikely. 4. Multifocal pneumonia Patient completed 7 days of Zosyn and 5 days of doxycycline MRSA PCR was negative -Procalcitonin downtrending 5. Constipation/diarrhea Patient no longer having constipation Patient now having diarrhea. No leukocytosis or fever. Diarrhea is not watery. 6. DM type II Continue sliding scale insulin 7. Shoulder pain Continue lidocaine patch 8. Hypertension Continue amlodipine, hydralazine, and Coreg 9. CAD status post CABG Continue with aspirin and Coreg 10. DVT prophylaxis Heparin Disposition: H&H stable. Patient is medically optimized. Patient will need to work with PT/OT. Will make ALC today. VS, I&O, 24H, Fishbone Vital Signs/I&O Vital Signs Date Time Temp Pulse Resp B/P (MAP) Pulse Ox O2 Delivery O2 Flow Rate FiO2 12/30/20 06:00 98.7 93 18 115/63 (80) 99 Room Air 12/28/20 18:30 16.0 I&O- Last 24 Hours up to 6 AM 12/30/20 05:59 Intake Total 594 ml Balance 594 ml Laboratory Data 24H LABS Laboratory Tests 2 12/29/20 16:52: Bedside Glucose (Misc Panel) 107 12/29/20 20:06: Bedside Glucose (Misc Panel) 187H 12/30/20 05:42: Nucleated Red Blood Cells % (auto) 0.0, Anion Gap 7L, Glomerular Filtration Rate 4.8L, Calcium Level 9.0, Phosphorus Level 4.5, Albumin 2.4L CBC/BMP Laboratory Tests 12/30/20 05:42 HADLEY HUANG DO Dec 30, 2020 12:26
--- NOTE | 2020-12-30 13:40 | IPN ---
PROGRESS NOTE DATE: 12/30/2020 SUBJECTIVE: Bree is seen and examined this morning receiving her hemodialysis treatment. Her dialysis was uneventful. She denies any complaints. No shortness of breath. She tells me that she does not feel ready to go home because she is weak. She also states she does not want to go to a senior care. She tells me she just wants to keep on staying in the hospital. OBJECTIVE: VITAL SIGNS: Temperature is 98.7, pulse is 93, respiratory rate is 18, blood pressure is 115/63, saturating 99% on room air. INTAKE AND OUTPUT: Intake yesterday was only recorded as 600 ml. Dialysis today goal removal is 2.5 liters. GENERAL: Patient is seen awake, alert, comfortable and receiving her treatment in no distress. HEENT: Extraocular muscles are intact. Tongue is moist. NECK: Supple. Jugular veins are not elevated. HEART: Heart sounds are regular, S1 and S2. There is no peripheral edema. There is no dependent edema. LUNGS: Clear to auscultation. There are diminished breath sounds on the left base, otherwise clear. No crackle. No rale. ABDOMEN: Soft and nontender. Positive bowel sounds. EXTREMITIES: There is no peripheral edema. No clubbing. No cyanosis. Dialysis access: There is a fistula in the left arm which is in use. NEUROLOGIC: She answers simples questions appropriately. She is cooperative with physical exam. She is oriented to person, place and situation. LABORATORY DATA: White count is 6.9, hemoglobin is 10.5, platelets 198,000, sodium is 133, potassium is 5.0, bicarbonate 27. Chest x-ray done yesterday shows small effusions, bilateral infiltrates have improved. INPATIENT MEDICATIONS: Reviewed by myself. No changes noted over the past 24 hours. PROBLEMS: 1. Endstage renal disease on hemodialysis on a Monday, Monday and Monday schedule. Patient is dialyzed today. Goal fluid removal is 2.5 liters. Her electrolytes and volume status are acceptable. Her fistula is in good use. Her chest x-ray has improved. There is small size of the effusions and her infiltrates are clearing. The next dialysis will be on Monday. 2. Combined systolic and diastolic congestive heart failure. Volume status has improved and is regulated via dialysis. An echocardiogram showed left ventricular ejection fraction of 40% with Grade 2 diastolic dysfunction. We removed 2.5 liters with her treatment today. Her chest x-ray shows improved infiltrates and smaller effusions. 3. Status post multifocal pneumonia. She completed a course of antibiotics and her chest x-ray yesterday showed significant improvement. She is afebrile and is saturating well on room air. 4. Anemia related to chronic renal failure. Her iron stores were adequate on the recent blood work. She is receiving Aranesp with dialysis and the dose was recently increased. She was transfused 2 units of packed red blood cell on this admission and hemoglobin is 10.5 on the latest labs. 5. Hypertension, blood pressures are well-controlled. I made no change to the regimen. There is no trouble with fluid removal on dialysis. 6. Secondary hyperparathyroidism of renal origin. Her phosphorus levels are now at goal. No changes made to her phosphorus binder.
[2020-12-30 14:00] VITALS: BP 115/64
[2020-12-30] MEDS: MUPIROCIN 2% OINT 22 GM TUBE TOP SCH ×2 (14:59→20:50)
[2020-12-30] MEDS: TRIPLE PASTE 2OZ OINTMENT TOP SCH ×2 (14:59→20:50)
[2020-12-30] MEDS: ANUSOL HC CREAM 30GM TOP SCH ×2 (14:59→20:50)
[2020-12-30 20:44] VITALS: BP 113/66
[2020-12-30] MEDS: OMEPRAZOLE 20 MG CAP PO SCH (20:45)
[2020-12-30] MEDS: traZODone 25MG PER 1/2 TABLET PO SCH (20:45)
[2020-12-30] MEDS: PERCOCET 5MG/325MG TAB PO PRN (20:46)
[2020-12-31] MEDS: SODIUM CHLORIDE 0.9% INJ 10 ML SYR IV PRN (05:47)
[2020-12-31] MEDS: SODIUM CHLORIDE 0.9% INJ 10 ML SYR IV SCH ×2 (05:47→17:22)
[2020-12-31 06:00] VITALS: BP 112/61
[2020-12-31 06:14] LABS: HEMATOCRIT 36.7 % (36.0-47.0); HEMOGLOBIN 11.3 g/dl (12.0-15.5); MEAN CORPUSCULAR HEMOGLOBIN 27.5 pg (27.0-33.0); MEAN CORPUSCULAR HGB CONC 30.8 g/dl (32.0-36.5); MEAN CORPUSCULAR VOLUME 89.3 fl (80.0-96.0); PLATELET COUNT, AUTOMATED 202 10^3/uL (150-450); RED BLOOD COUNT 4.11 10^6/uL (4.00-5.40)
[2020-12-31 06:23] LABS: WHITE BLOOD COUNT 5.8 10^3/uL (4.0-10.0)
[2020-12-31 06:34] LABS: ALBUMIN 2.2 GM/DL (3.2-5.2); CALCIUM LEVEL 8.6 MG/DL (8.8-10.2); CREATININE FOR GFR 6.14 MG/DL (0.55-1.30); GLOMERULAR FILTRATION RATE 7.1 (>39); PHOSPHORUS LEVEL 4.5 MG/DL (2.5-4.9); POTASSIUM SERUM 4.4 MEQ/L (3.5-5.1)
[2020-12-31] MEDS: COMBIVENT RESPIMAT 100-20MCG INHALER 4GM INH SCH ×3 (07:13→19:49)
[2020-12-31] MEDS: HumaLOG INSULIN (NovoLOG) PER UNIT SC SCH ×4 (07:27→21:17)
[2020-12-31] MEDS: amLODIPine 5 MG TAB PO SCH (08:40)
[2020-12-31] MEDS: **hydrALAZINE HCL** 25 MG TAB PO SCH ×2 (08:40→21:00)
[2020-12-31] MEDS: LACTOBACILLUS ACIDOPHILUS CAP (BACID) PO SCH ×2 (08:51→17:22)
[2020-12-31] MEDS: MULTIVITAMINS/MINERALS THERAP 1 TAB PO SCH (08:51)
[2020-12-31] MEDS: BENZONATATE 100MG CAPSULE PO SCH ×3 (08:51→21:16)
[2020-12-31] MEDS: CO-ENZYME Q10 50 MG CAP PO SCH (08:51)
[2020-12-31] MEDS: ASPIRIN 81MG ENTERIC TABLET PO SCH (08:51)
[2020-12-31] MEDS: (RENVELA) SEVELAMER **CARBONate** 800 MG TAB PO SCH ×3 (08:51→17:22)
[2020-12-31] MEDS: CARVedilol 12.5 MG TAB PO SCH (08:51)
[2020-12-31] MEDS: MUPIROCIN 2% OINT 22 GM TUBE TOP SCH ×2 (08:52→21:18)
[2020-12-31] MEDS: ANUSOL HC CREAM 30GM TOP SCH ×2 (08:52→21:00)
[2020-12-31] MEDS: TRIPLE PASTE 2OZ OINTMENT TOP SCH ×2 (08:53→21:00)
[2020-12-31 14:00] VITALS: BP 118/60
[2020-12-31] MEDS: OMEPRAZOLE 20 MG CAP PO SCH (21:16)
[2020-12-31] MEDS: traZODone 25MG PER 1/2 TABLET PO SCH (21:19)
[2020-12-31] MEDS: PERCOCET 5MG/325MG TAB PO PRN (21:22)
[2021-01-01 06:00] VITALS: BP 117/69
[2021-01-01] MEDS: SODIUM CHLORIDE 0.9% INJ 10 ML SYR IV SCH ×2 (06:02→17:19)
[2021-01-01] MEDS: SODIUM CHLORIDE 0.9% INJ 10 ML SYR IV PRN (06:03)
[2021-01-01] MEDS: BENZONATATE 100MG CAPSULE PO SCH ×3 (06:04→21:40)
[2021-01-01] MEDS: CO-ENZYME Q10 50 MG CAP PO SCH (06:04)
[2021-01-01] MEDS: MULTIVITAMINS/MINERALS THERAP 1 TAB PO SCH (06:04)
[2021-01-01] MEDS: LACTOBACILLUS ACIDOPHILUS CAP (BACID) PO SCH ×2 (06:04→17:17)
[2021-01-01] MEDS: ASPIRIN 81MG ENTERIC TABLET PO SCH (06:04)
[2021-01-01] MEDS: MUPIROCIN 2% OINT 22 GM TUBE TOP SCH ×2 (06:05→21:48)
[2021-01-01] MEDS: ANUSOL HC CREAM 30GM TOP SCH ×2 (06:05→21:00)
[2021-01-01] MEDS: TRIPLE PASTE 2OZ OINTMENT TOP SCH ×2 (06:06→21:00)
[2021-01-01] MEDS: **hydrALAZINE HCL** 25 MG TAB PO SCH ×2 (06:06→21:43)
[2021-01-01] MEDS: CARVedilol 12.5 MG TAB PO SCH (06:07)
[2021-01-01] MEDS: amLODIPine 5 MG TAB PO SCH (06:08)
[2021-01-01] MEDS: HumaLOG INSULIN (NovoLOG) PER UNIT SC SCH ×5 (06:47→21:00)
[2021-01-01] MEDS: (RENVELA) SEVELAMER **CARBONate** 800 MG TAB PO SCH ×3 (06:47→17:17)
[2021-01-01 06:56] LABS: HEMATOCRIT 36.3 % (36.0-47.0); HEMOGLOBIN 10.9 g/dl (12.0-15.5); MEAN CORPUSCULAR HEMOGLOBIN 27.3 pg (27.0-33.0); MEAN CORPUSCULAR VOLUME 90.8 fl (80.0-96.0); PLATELET COUNT, AUTOMATED 228 10^3/uL (150-450); WHITE BLOOD COUNT 6.4 10^3/uL (4.0-10.0)
[2021-01-01] MEDS: COMBIVENT RESPIMAT 100-20MCG INHALER 4GM INH SCH ×3 (07:06→19:20)
[2021-01-01 07:11] LABS: ALBUMIN 2.3 GM/DL (3.2-5.2); CALCIUM LEVEL 8.8 MG/DL (8.8-10.2); CREATININE FOR GFR 8.06 MG/DL (0.55-1.30); GLOMERULAR FILTRATION RATE 5.2 (>39); PHOSPHORUS LEVEL 4.6 MG/DL (2.5-4.9)
[2021-01-01] MEDS ORDERED: SODIUM CHLORIDE 0.9% 1000ML IV PRN (09:50)
[2021-01-01] MEDS ORDERED: LIDOCAINE 1% SDV 5ML VIAL SC PRN (09:50)
[2021-01-01] MEDS: EMLA CREAM 5GM TUBE (LIDOCAINE/PRILOCAINE) TOP SCH (10:41)
--- NOTE | 2021-01-01 14:49 | IPN ---
PROGRESS NOTE DATE: 01/01/2021 SUBJECTIVE: Bree is seen and examined this morning in the hemodialysis unit receiving a treatment. She denies any shortness of breath. Her dialysis treatment is uneventful. Patient is unsure what the discharge plan is going to be. She is still working with physical therapy. VITAL SIGNS: Temperature 98.2, pulse 79, respiratory rate 18, blood pressure 117/69, saturating 96% on room air. Intake yesterday was 870. Dialysis full fluid removal today is 2.5 liters. GENERAL: Patient is seen awake, alert, oriented, comfortable, receiving her treatment in no distress. Extraocular muscles are intact. Tongue is moist. Neck is supple. Jugular veins are not elevated. HEART: Sounds are regular, S1, S2. There is no peripheral edema. There is no dependent edema. LUNGS: Clear to auscultation bilaterally. No crackle or rale. ABDOMEN: Soft and nontender. EXTREMITIES: Negative for clubbing, edema, or cyanosis. There is a fistula present in the left arm, which is in use in dialysis. NEUROLOGIC: She is oriented times three, interactive and conversational. Moves all four extremities on command. LABORATORY STUDIES: Reveal white count 6.4, hemoglobin 10.9, platelets 228. Sodium 137, potassium 5.0, BUN 42, creatinine 8.0. INPATIENT MEDICATIONS: Reviewed by myself, and no changes noted over the past 24 hours. PROBLEMS: 1. End-stage renal disease, on hemodialysis on a Monday, Monday, Monday schedule. Patient is dialyzed today with 2.5 liters of fluid removed. Her electrolytes and volume status are acceptable. Next dialysis will be on Monday. 2. Anemia of chronic renal failure. Hemoglobin is 10.9 on the latest labs and is at goal, and she continues on Aranesp with dialysis. 3. Hypertension. Blood pressures are optimally controlled, and I made no change to the current regimen of amlodipine, hydralazine, and carvedilol. 4. Combined systolic and diastolic congestive heart failure (echocardiogram with left ventricular ejection fraction of 40% and grade 2 diastolic dysfunction). We are removing 2.5 liters with her dialysis treatment today. Her chest x-ray recently showed improved infiltrates and smaller effusion. She continues on a moderate fluid restriction and is saturating well on room air, and volume status is compensated.
[2021-01-01] MEDS: OMEPRAZOLE 20 MG CAP PO SCH (21:39)
[2021-01-01] MEDS: traZODone 25MG PER 1/2 TABLET PO SCH (21:40)
[2021-01-01] MEDS: traMADol 50 MG TAB PO PRN (21:41)
[2021-01-01 22:00] VITALS: BP_SYST 132; BP_SYST 161; BP_DIAS 68; BP_DIAS 75
[2021-01-02] MEDS: SODIUM CHLORIDE 0.9% INJ 10 ML SYR IV SCH ×2 (05:39→18:27)
[2021-01-02 06:11] LABS: HEMATOCRIT 38.6 % (36.0-47.0); HEMOGLOBIN 11.5 g/dl (12.0-15.5); MEAN CORPUSCULAR HEMOGLOBIN 27.5 pg (27.0-33.0); MEAN CORPUSCULAR HGB CONC 29.8 g/dl (32.0-36.5); MEAN CORPUSCULAR VOLUME 92.3 fl (80.0-96.0); PLATELET COUNT, AUTOMATED 232 10^3/uL (150-450); RED BLOOD COUNT 4.18 10^6/uL (4.00-5.40); WHITE BLOOD COUNT 6.3 10^3/uL (4.0-10.0)
[2021-01-02 06:25] LABS: ALBUMIN 2.4 GM/DL (3.2-5.2); CALCIUM LEVEL 8.8 MG/DL (8.8-10.2); CREATININE FOR GFR 5.9 MG/DL (0.55-1.30); GLOMERULAR FILTRATION RATE 7.4 (>39); PHOSPHORUS LEVEL 3.1 MG/DL (2.5-4.9); POTASSIUM SERUM 4.5 MEQ/L (3.5-5.1)
[2021-01-02] MEDS: COMBIVENT RESPIMAT 100-20MCG INHALER 4GM INH SCH ×3 (07:36→19:24)
[2021-01-02] MEDS: CO-ENZYME Q10 50 MG CAP PO SCH (08:37)
[2021-01-02] MEDS: HumaLOG INSULIN (NovoLOG) PER UNIT SC SCH ×6 (08:38→21:00)
[2021-01-02] MEDS: ASPIRIN 81MG ENTERIC TABLET PO SCH (08:40)
[2021-01-02] MEDS: MULTIVITAMINS/MINERALS THERAP 1 TAB PO SCH (08:40)
[2021-01-02] MEDS: (RENVELA) SEVELAMER **CARBONate** 800 MG TAB PO SCH ×3 (08:40→18:28)
[2021-01-02] MEDS: LACTOBACILLUS ACIDOPHILUS CAP (BACID) PO SCH ×2 (08:40→18:28)
[2021-01-02] MEDS: CARVedilol 12.5 MG TAB PO SCH (08:41)
[2021-01-02] MEDS: BENZONATATE 100MG CAPSULE PO SCH ×3 (08:41→21:25)
[2021-01-02] MEDS: amLODIPine 5 MG TAB PO SCH (08:41)
[2021-01-02] MEDS: **hydrALAZINE HCL** 25 MG TAB PO SCH ×2 (08:42→21:00)
[2021-01-02] MEDS: TRIPLE PASTE 2OZ OINTMENT TOP SCH ×3 (08:43→23:46)
[2021-01-02] MEDS: MUPIROCIN 2% OINT 22 GM TUBE TOP SCH ×2 (08:43→21:26)
[2021-01-02] MEDS: ANUSOL HC CREAM 30GM TOP SCH ×3 (08:44→23:46)
--- NOTE | 2021-01-02 13:51 | IPN ---
NEPHROLOGY PROGRESS NOTE DATE: 01/02/2021 SUBJECTIVE: Ms. Acosta seen this morning on her bedside. She is lying in her bed without any acute distress. She reports that she is very weak and unable to walk even from the bed to chair. She had been getting physical therapy, but not improved. She has been advised for subacute rehab in [place]; however, patient is declining it. She remains on maintenance hemodialysis and was dialyzed yesterday. Her most recent chest x-ray showed only small bilateral pleural effusions. She has been afebrile and hemodynamically stable without any acute issues. PHYSICAL EXAMINATION: Temperature 97.9 degrees Fahrenheit, heart rate 90 per minute and respiratory rate 16 per minute. Blood pressure 158/76 mmHg and oxygen saturation 95%. Head: Atraumatic. Neck: Supple and without JVD or thyroid enlargement. Heart: Sounds are regular. Lungs: With slightly diminished breath sounds at bases. Abdomen: Soft and nontender and bowel sounds are normal. Extremities: Without any cyanosis or clubbing. Left arm AV fistula is patent. She has no peripheral edema. Neurologically: She is at her baseline mentation and without any focal deficits. LABORATORY DATA: Today's labs show: WBC count 6.3, hemoglobin 11.5, hematocrit 38.6 and platelets 232. Sodium 137, potassium 4.5, CO2 31, BUN 30, creatinine 5.9, glucose 223 and calcium 8.8. PROBLEMS/PLAN: 1. End-stage renal disease: Patient was dialyzed yesterday and she will be due for next dialysis on Monday. No emergent need of dialysis today. 2. Congestive heart failure and pleural effusions: Her volume status is very well compensated and she has only small bilateral pleural effusions which do not need any urgent intervention. We will continue to maintain her volume with dialysis. 3. Hypertension: Blood pressure has been reasonably well controlled and I would not like to lower the blood pressure too aggressively due to risk for orthostatic hypotension and fall. 4. Deconditioning and weakness: Patient still very weak and unable to ambulate. Subacute rehab or permanent penitentiary placement is probably going to be her eventual course. 5. Anemia: At present her anemia has been stable and being managed with dialysis. No urgent intervention is needed.
[2021-01-02] MEDS: traZODone 25MG PER 1/2 TABLET PO SCH (21:25)
[2021-01-02] MEDS: OMEPRAZOLE 20 MG CAP PO SCH (21:26)
[2021-01-03 05:45] LABS: HEMATOCRIT 37.5 % (36.0-47.0); HEMOGLOBIN 11.2 g/dl (12.0-15.5); MEAN CORPUSCULAR HEMOGLOBIN 27.4 pg (27.0-33.0); MEAN CORPUSCULAR HGB CONC 29.9 g/dl (32.0-36.5); MEAN CORPUSCULAR VOLUME 91.7 fl (80.0-96.0); PLATELET COUNT, AUTOMATED 215 10^3/uL (150-450); RED BLOOD COUNT 4.09 10^6/uL (4.00-5.40); WHITE BLOOD COUNT 7.5 10^3/uL (4.0-10.0)
[2021-01-03] MEDS: SODIUM CHLORIDE 0.9% INJ 10 ML SYR IV SCH ×2 (05:51→18:20)
[2021-01-03 06:00] VITALS: BP 128/82
[2021-01-03 06:19] LABS: ALBUMIN 2.3 GM/DL (3.2-5.2); CREATININE FOR GFR 7.9 MG/DL (0.55-1.30); GLOMERULAR FILTRATION RATE 5.3 (>39); PHOSPHORUS LEVEL 3.5 MG/DL (2.5-4.9); POTASSIUM SERUM 5.4 MEQ/L (3.5-5.1)
[2021-01-03] MEDS: COMBIVENT RESPIMAT 100-20MCG INHALER 4GM INH SCH ×3 (07:18→19:42)
[2021-01-03] MEDS: HumaLOG INSULIN (NovoLOG) PER UNIT SC SCH ×4 (07:30→21:00)
[2021-01-03] MEDS: MUPIROCIN 2% OINT 22 GM TUBE TOP SCH ×2 (08:32→21:07)
[2021-01-03] MEDS: (RENVELA) SEVELAMER **CARBONate** 800 MG TAB PO SCH ×3 (08:33→18:20)
[2021-01-03] MEDS: MULTIVITAMINS/MINERALS THERAP 1 TAB PO SCH (08:33)
[2021-01-03] MEDS: CO-ENZYME Q10 50 MG CAP PO SCH (08:33)
[2021-01-03] MEDS: TRIPLE PASTE 2OZ OINTMENT TOP SCH ×2 (08:33→21:08)
[2021-01-03] MEDS: ASPIRIN 81MG ENTERIC TABLET PO SCH (08:33)
[2021-01-03] MEDS: CARVedilol 12.5 MG TAB PO SCH (08:34)
[2021-01-03] MEDS: BENZONATATE 100MG CAPSULE PO SCH ×3 (08:34→21:07)
[2021-01-03] MEDS: LACTOBACILLUS ACIDOPHILUS CAP (BACID) PO SCH ×2 (08:34→18:20)
[2021-01-03] MEDS: amLODIPine 5 MG TAB PO SCH (08:35)
[2021-01-03] MEDS: ANUSOL HC CREAM 30GM TOP SCH ×2 (08:35→21:08)
[2021-01-03] MEDS: **hydrALAZINE HCL** 25 MG TAB PO SCH ×2 (08:35→21:11)
--- NOTE | 2021-01-03 10:01 | REP ---
INDICATION: left arm swelling. COMPARISON: 04/21/2020 TECHNIQUE: Multiple ultrasonographic images of the deep venous structures of the left upper extremity were obtained from the brachial vein to the interrogatable portions of the subclavian vein along with color flow doppler imaging and doppler interrogation. A dialysis fistula was also evaluated. FINDINGS: There is no evidence of abnormal echogenic material seen in any of the visualized deep venous structures of the left upper extremity. Coaptation where obtainable was achievable throughout. Patency of the dialysis fistula is confirmed with color and Doppler tracings. IMPRESSION: No ultrasonographic evidence of deep venous thrombosis involving the imageable portions of the deep venous structures of the left upper extremity. Patent dialysis fistula in the left upper arm. Accredited by the [employer] in Vascular Peripheral Ultrasound. <Electronically signed by Marlon Marie > 01/03/21 [id number]
--- NOTE | 2021-01-03 11:23 | IPN ---
NEPHROLOGY PROGRESS NOTE DATE: 01/03/2021 SUBJECTIVE: Ms. Acosta is seen this morning on her bedside. She is scheduled for left upper extremity ultrasound by hospitalist, as nursing staff felt that her left arm was more swollen. Patient denies any pain in her arm. She has no dyspnea or chest pain. She denies any nausea or vomiting. Her main problem is just weakness and inability to ambulate. PHYSICAL EXAMINATION: VITAL SIGNS: Temperature 97.6 degrees Fahrenheit, heart rate 85 per minute, respiratory rate 18 per minute, blood pressure 141/84 mmHg, oxygen saturation 99% on room air. HEAD: Atraumatic. NECK: Supple and without jugular venous distention (JVD) or thyroid enlargement. HEART SOUNDS: Regular. LUNGS: Clear to auscultation. ABDOMEN: Soft and nontender. Bowel sounds are normal. EXTREMITIES: Without any cyanosis or clubbing. Left arm arteriovenous (AV) fistula is patent. I do not see any significant change in her left arm compared with yesterday. NEUROLOGIC: She is awake, alert and oriented times three. LABORATORY DATA: Today's labs show WBC count 7.5, hemoglobin 11.2, hematocrit 37.5, platelets 215. Sodium 137, potassium 5.4, CO2 29, BUN 47, creatinine 7.9, glucose 147, calcium 9.0. PROBLEMS: 1. End-stage renal disease. Patient is regularly dialyzed on Monday, Monday and Monday schedule. She was dialyzed on Monday and we plan her next dialysis tomorrow. 2. Hyperkalemia. She has mild hyperkalemia for which no urgent intervention is needed. This will be corrected with dialysis tomorrow. Her electrolytes will be checked again tomorrow morning. She will be dialyzed with low potassium bath. 3. Anemia. Her anemia has been stable and does not need any urgent intervention. 4. Congestive heart failure. Her volume status is also reasonably well compensated and being managed with dialysis. We will try to remove about 2 liters of fluid with the next dialysis. 5. Left arm swelling. She has mild swelling generalized in her left arm due to AV fistula. I do not feel that she has a deep venous thrombosis (DVT) in the arm. She is scheduled for ultrasound already and we will let her go for ultrasound. Her AV fistula is patent and I do not feel that any urgent intervention is needed. 6. Generalized weakness and deconditioning. Patient has been unable to ambulate. We will continue to encourage her to get out of bed and make more of an effort to work with the physical therapist.
[2021-01-03] MEDS: traZODone 25MG PER 1/2 TABLET PO SCH (21:06)
[2021-01-03] MEDS: OMEPRAZOLE 20 MG CAP PO SCH (21:07)
[2021-01-04] MEDS: SODIUM CHLORIDE 0.9% INJ 10 ML SYR IV SCH ×2 (05:39→17:28)
[2021-01-04] MEDS: MULTIVITAMINS/MINERALS THERAP 1 TAB PO SCH (05:56)
[2021-01-04] MEDS: (RENVELA) SEVELAMER **CARBONate** 800 MG TAB PO SCH ×3 (05:56→17:28)
[2021-01-04] MEDS: BENZONATATE 100MG CAPSULE PO SCH ×3 (05:57→21:49)
[2021-01-04] MEDS: ASPIRIN 81MG ENTERIC TABLET PO SCH (05:57)
[2021-01-04] MEDS: LACTOBACILLUS ACIDOPHILUS CAP (BACID) PO SCH ×2 (05:57→17:28)
[2021-01-04 06:00] VITALS: BP 175/80
[2021-01-04] MEDS: CARVedilol 12.5 MG TAB PO SCH (06:00)
[2021-01-04] MEDS: **hydrALAZINE HCL** 25 MG TAB PO SCH ×2 (06:00→21:49)
[2021-01-04] MEDS: amLODIPine 5 MG TAB PO SCH (06:01)
[2021-01-04] MEDS: MUPIROCIN 2% OINT 22 GM TUBE TOP SCH ×2 (06:01→21:51)
[2021-01-04] MEDS: CO-ENZYME Q10 50 MG CAP PO SCH (06:15)
[2021-01-04 06:30] LABS: HEMATOCRIT 37.6 % (36.0-47.0); HEMOGLOBIN 11.3 g/dl (12.0-15.5); MEAN CORPUSCULAR HEMOGLOBIN 27.2 pg (27.0-33.0); MEAN CORPUSCULAR HGB CONC 30.1 g/dl (32.0-36.5); MEAN CORPUSCULAR VOLUME 90.6 fl (80.0-96.0); PLATELET COUNT, AUTOMATED 225 10^3/uL (150-450); RED BLOOD COUNT 4.15 10^6/uL (4.00-5.40); WHITE BLOOD COUNT 7.4 10^3/uL (4.0-10.0)
[2021-01-04 07:09] LABS: ALBUMIN 2.3 GM/DL (3.2-5.2); CALCIUM LEVEL 9.2 MG/DL (8.8-10.2); CREATININE FOR GFR 9.75 MG/DL (0.55-1.30); GLOMERULAR FILTRATION RATE 4.2 (>39); PHOSPHORUS LEVEL 3.8 MG/DL (2.5-4.9); POTASSIUM SERUM 6.2 MEQ/L (3.5-5.1)
[2021-01-04] MEDS ORDERED: SODIUM CHLORIDE 0.9% 1000ML IV PRN (07:15)
[2021-01-04] MEDS: HumaLOG INSULIN (NovoLOG) PER UNIT SC SCH ×4 (07:30→21:00)
[2021-01-04] MEDS: COMBIVENT RESPIMAT 100-20MCG INHALER 4GM INH SCH ×3 (08:12→19:44)
[2021-01-04] MEDS: TRIPLE PASTE 2OZ OINTMENT TOP SCH ×2 (09:00→21:50)
[2021-01-04] MEDS: ANUSOL HC CREAM 30GM TOP SCH ×2 (09:00→21:50)
--- NOTE | 2021-01-04 12:49 | IPN ---
PROGRESS NOTE DATE: 01/04/2021 SUBJECTIVE: Mrs. Acosta is seen during hemodialysis this morning. She is resting comfortably. Yesterday, she had an ultrasound of her left upper extremity which did not show any DVT and her AV fistula has been patent. Patient has no dyspnea, chest pain, nausea or vomiting. She is just very weak and unable to ambulate. OBJECTIVE: Temperature is 98.6 degrees Fahrenheit, heart rate is 88 per minute and respiratory rate is 18 per minute. Blood pressure is 158/73 mmHg and oxygen saturation 96% on room air. Head is atraumatic. Neck is supple. JVD is not abnormally elevated. Heart sounds are irregular in rhythm and lungs with slightly diminished breath sounds at the bases. Abdomen is soft and nontender. Bowel sounds are normal. Extremities without any cyanosis or clubbing. Left arm AV fistula is patent and currently being used for dialysis. Neurologically, she has no focal deficit. Today's labs shows a WBC count of 7.4, hemoglobin 11.3 and hematocrit 37.6, platelets are 225,000. Sodium is 137, potassium is 6.2, CO2 28, BUN 63 and creatinine 9.75. Glucose is 143 and calcium is 9.2. PROBLEMS: 1. Hyperkalemia. Patient has worsening hyperkalemia and we are dialyzing her with 1.0 mEq potassium bath. This will correct her hyperkalemia. No other intervention is needed. 2. Endstage renal disease. Patient is due for her regular dialysis today and she is being dialyzed. She is tolerating her dialysis well. 3. Congestive heart failure and pleural effusion. She has small bilateral pleural effusions and congestive heart failure has been mostly compensated with dialysis, 2.5 liters of fluid removal today is being attempted. 4. Anemia, her anemia has corrected and she does not need any intervention. Her Aranesp has already been stopped. 5. Weakness and deconditioning. The patient is still very weak and unable to ambulate. She is waiting for subacute rehab.
[2021-01-04 21:49] VITALS: BP 173/78
[2021-01-04] MEDS: traZODone 25MG PER 1/2 TABLET PO SCH (21:49)
[2021-01-04] MEDS: OMEPRAZOLE 20 MG CAP PO SCH (21:49)
[2021-01-05 06:00] VITALS: BP 171/81
[2021-01-05] MEDS: SODIUM CHLORIDE 0.9% INJ 10 ML SYR IV SCH (06:00)
[2021-01-05] MEDS: COMBIVENT RESPIMAT 100-20MCG INHALER 4GM INH SCH ×2 (07:18→13:14)
[2021-01-05] MEDS: (RENVELA) SEVELAMER **CARBONate** 800 MG TAB PO SCH ×2 (09:18→12:22)
[2021-01-05] MEDS: MULTIVITAMINS/MINERALS THERAP 1 TAB PO SCH (09:18)
[2021-01-05] MEDS: LACTOBACILLUS ACIDOPHILUS CAP (BACID) PO SCH (09:18)
[2021-01-05] MEDS: ASPIRIN 81MG ENTERIC TABLET PO SCH (09:18)
[2021-01-05] MEDS: CO-ENZYME Q10 50 MG CAP PO SCH (09:18)
[2021-01-05] MEDS: BENZONATATE 100MG CAPSULE PO SCH (09:18)
[2021-01-05] MEDS: CARVedilol 12.5 MG TAB PO SCH (09:19)
[2021-01-05] MEDS: **hydrALAZINE HCL** 25 MG TAB PO SCH (09:19)
[2021-01-05] MEDS: amLODIPine 5 MG TAB PO SCH (09:19)
[2021-01-05] MEDS: HumaLOG INSULIN (NovoLOG) PER UNIT SC SCH ×2 (09:20→12:22)
[2021-01-05] MEDS: ANUSOL HC CREAM 30GM TOP SCH (09:20)
[2021-01-05] MEDS: MUPIROCIN 2% OINT 22 GM TUBE TOP SCH (09:20)
[2021-01-05] MEDS: TRIPLE PASTE 2OZ OINTMENT TOP SCH (09:21)
[2021-01-05] MEDS ORDERED: HYDR-3910 PO (11:53)
[2021-01-05] MEDS ORDERED: SEVE800T3 PO (11:53)
[2021-01-05] MEDS ORDERED: BENZ-18 PO (11:53)
--- NOTE | 2021-01-05 11:53 | IPN ---
PROGRESS NOTE DATE: 01/05/2021 SUBJECTIVE: Mrs. Acosta is seen this morning on her bedside. Her is present in the room and he tells me that he is here to take her home. Patient denies any dyspnea, chest pain, fever, chills, nausea or vomiting. She underwent hemodialysis yesterday which she tolerated well. OBJECTIVE: VITAL SIGNS: Temperature is 96.9 degrees Fahrenheit, heart rate is 80 per minute and respiratory rate is 18 per minute, blood pressure is 170/80 mmHg, and oxygen saturation 96% on room air. HEAD: Atraumatic. NECK: Supple without JVD or thyroid enlargement. HEART: Heart sounds are regular. LUNGS: Clear to auscultation. ABDOMEN: Soft and nontender. Bowel sounds are normal. EXTREMITIES: Without any cyanosis or clubbing. Left arm AV fistula is patent. NEUROLOGIC: She is at her baseline mentation. LABORATORY DATA: She did not have any new labs done today. PROBLEMS: 1. Endstage renal disease. Patient was dialyzed yesterday which was her regular day. Today, there is no need for dialysis. Her next dialysis will be scheduled as an outpatient for tomorrow. 2. Hyperkalemia. She was dialyzed yesterday with 1.0 mEq potassium bath. We anticipate that her potassium has improved back to normal. No labs were done today. She is going to be back to dialysis again tomorrow. 3. Hypertension. Blood pressure is somewhat high. She should continue with all of her antihypertensive medications at home and follow-up in the outpatient clinic for further adjustment in her medications. 4. Anemia, her anemia has corrected and improved. This will also be managed with outpatient dialysis. 5. Generalized weakness and deconditioning. Patient did not make much progress with her deconditioning. She has been nonambulatory even at baseline. She does not have much desire to get up and make an effort for walking.
[2021-01-05] MEDS ORDERED: NEOSPORIN OINT 0.9 GM PKT TOP ONE (13:25)
--- NOTE | 2021-01-05 16:09 | DS.PDOC ---
Discharge Summary General Date of Admission Dec 11, 2020 at 11:35 Date of Discharge 01/05/21 Discharge Summary PROCEDURES PERFORMED DURING STAY: [None]. DISCHARGE DIAGNOSES: Multifocal pneumonia Systolic and diastolic CHF exacerbation. 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 SECONDARY DIAGNOSIS: CAD s/p CABG ESRD on dialysis MWF Combined CHF Ischemic cardiomyopathy Vascular Dementia Depression Hypertension Diabetes now diet controlled. Bilateral Bronchiectasis with b/l calcified granulomas with mediastinal lymphadenopathy and chronic fibrosis and infiltrates of both the lower lobes left > right stable since 2013 Anemia of chronic disease Weakness/ Debility / Spinal stenosis s/p lumbar laminectomy at L2, L3, L4 at [facility] in Jan 2018 H/O CVA with right sided weakness Sleep disordered breathing. COMPLICATIONS/CHIEF COMPLAINT: Fatigue,Nausea,Pnuemonia. HOSPITAL COURSE: Mrs. Acosta is a 75 year old female with CAD s/p CABG and ESRD on dialysis MWF, systolic and diastolic CHF,DM, H/o CVA with residual right paresis, Dementia, who presented to ED on 12/11/20 with upper abdominal pain and exertional dyspnea. She was found to have multifocal pneumonia and CHF exacerbation. She was started on ceftriaxone and doxycycline. CT of the abdomen pelvis suggestive of possible fistula. General surgery was consulted and felt there was no fistula or perianal abscess. Recommendations appreciated. Patient started spiking fever of 102.4 on 12/14/2020. Antibiotics escalated from ceftriaxone and doxycycline to Zosyn and Doxycycline. MRSA pcr was negative. CT abdomen pelvis was negative for occult abscess. She continued to have fever till 12/21/2020. Per nephrology patient recurrent fever may be secondary to infected buttonhole in her left arm AV fistula. She was started Bactroban ointment to her needle site and stopped using the buttonhole. She also had antibiotic related diarrhea which has now resolved. Patient has generalized deconditioning and debility. Has poor motivation to mobilize. Did not progress much with PT in hospital. PT recommended either care home or home with 24 x 7 care. Today her was here when she worked with PT and indicated he would be able to provide her with 24 x 7 care at home so the patient was discharged home. End-stage renal disease with secondary hyperparathyroidism Continue dialysis on Monday renvela dose increased. Acute decompensated heart failure with combined systolic and diastolic dysfunction Echocardiogram from 03/31/2020 demonstrates EF of 40%, grade 2 diastolic dysfunction There is a left pleural effusion, patient declined thoracocentesis Intra-abdominal fistula ruled out Seen on CT of the abdomen pelvis General surgery consulted, recommendations appreciated. General surgery suggests that the presence of a fistula is highly unlikely. Multifocal pneumonia Patient completed 7 days of Zosyn and 5 days of doxycycline MRSA PCR was negative DM type II diet controlled Hypertension Continue amlodipine, hydralazine, and Coreg CAD status post CABG Continue with aspirin and Coreg DISCHARGE MEDICATIONS: Please see below. ALLERGIES: Please see below. PHYSICAL EXAMINATION ON DISCHARGE: VITAL SIGNS: Please see below. HEAD: Atraumatic. NECK: Supple without JVD or thyroid enlargement. HEART: Heart sounds are regular. LUNGS: Clear to auscultation. ABDOMEN: Soft and nontender. Bowel sounds are normal. EXTREMITIES: Without any cyanosis or clubbing. Left arm AV fistula is patent. NEUROLOGIC: She is at her baseline mentation. LABORATORY DATA: Please see below. ACTIVITY: [As tolerated]. DIET: Renal DISPOSITION: Home Health Service. DISCHARGE INSTRUCTIONS: PMD in 1 week Renal in 2 weeks DISCHARGE CONDITION: [Stable]. TIME SPENT ON DISCHARGE: 35 minutes. Vital Signs/I&Os Vital Signs Date Time Temp Pulse Resp B/P (MAP) Pulse Ox O2 Delivery O2 Flow Rate FiO2 01/05/21 10:03 18 01/05/21 06:00 96.9 80 171/81 (111) 96 Room Air I&O- Last 24 Hours up to 6 AM 01/05/21 07:00 Intake Total 930 ml Output Total 2000 ml Balance -1070 ml Laboratory Data Labs 24H Laboratory Tests 2 01/04/21 16:59: Bedside Glucose (Misc Panel) 228H 01/04/21 21:41: Bedside Glucose (Misc Panel) 176H 01/05/21 07:12: Bedside Glucose (Misc Panel) 128H 01/05/21 11:34: Bedside Glucose (Misc Panel) 217H FSBS Laboratory Tests Test 01/04/21 16:59 01/04/21 21:41 01/05/21 07:12 01/05/21 11:34 Range/Units Bedside Glucose (Misc Panel) 228 176 128 217 83-110 MG/DL Discharge Medications Scheduled Amlodipine Besylate (Amlodipine Besylate) 5 Mg Tablet, 5 MG PO DAILY, (Reported) Aspirin (Aspirin EC) 81 Mg Tablet.dr, 81 MG PO DAILY, (Reported) Benzonatate (Benzonatate) 100 Mg Capsule, 100 MG PO TID Carvedilol (Carvedilol) 12.5 Mg Tablet, 12.5 MG PO DAILY, (Reported) Hydralazine HCl (Hydralazine HCl) 25 Mg Tablet, 25 MG PO BID Ipratropium/Albuterol Sulfate (Combivent Respimat 20-100 Mcg) 4 Gm Mist.inhal, 1 PUFF INH BID, (Reported) Lidocaine/Prilocaine (Lidocaine-Prilocaine Cream) 2.5%/2.5% Cream..g., 1 APLCT TOP 3XW, (Reported) MONDAY, MONDAY AND MONDAY PRIOR TO DIALYSIS Multivitamins (Thera M Plus Tablet) 1 Each Tablet, 1 TAB PO DAILY, (Reported) Sevelamer Carbonate (Sevelamer Carbonate) 800 Mg Tablet, 1,600 MG PO WM Trazodone HCl (Trazodone HCl) 50 Mg Tablet, 25 MG PO QHS, (Reported) Ubidecarenone (Coenzyme Q10) 100 Mg Tablet, 100 MG PO DAILY, (Reported) Scheduled PRN Hydroxyzine HCl (Hydroxyzine HCl) 10 Mg Tablet, 20 MG PO QHS PRN for SLEEP, (Reported) Ibuprofen (Ibu-200) 200 Mg Tablet, 200 MG PO Q6H PRN for PAIN LEVEL 1-4, (Reported) Sevelamer Carbonate (Renvela) 800 Mg Tablet, 800 MG PO ASDIRECTED PRN for AFTER SNACKS, (Reported) Allergies Coded Allergies: Vwlwebh-Iuv-Arq Reductase Inhibitor (Verified Adverse Reaction, Unknown, PAIN, 10/05/20) PT SAYS SHE CAN TAKE PRAVASTATIN Danielle Chou MD Jan 05, 2021 16:09
== END 2021-01-05 14:18 | disposition home health service (06) | DRG 193 ==
LOC: M ED 08:21 → M ED INP 08:22 → M MSPAV 22:44 → OBSVTOIN 12-11 11:35
PROVIDERS: ADMIT Internal Medicine; ATTEND Internal Medicine Nephrology
PROC: 5A1D70Z Performance of Urinary Filtration, Intermittent, Less than 6 Hours Per Day (ICD-10-PCS; 2020-12-11)
PROC: 02HV33Z Insertion of Infusion Device into Superior Vena Cava, Percutaneous Approach (ICD-10-PCS; 2020-12-21)
PROC: 30233N1 Transfusion of Nonautologous Red Blood Cells into Peripheral Vein, Percutaneous Approach (ICD-10-PCS; principal; 2020-12-28)
DX: J12.1 Respiratory syncytial virus pneumonia (principal); N18.6 End stage renal disease; I50.43 Acute on chronic combined systolic (congestive) and diastolic (congestive) heart failure; I13.2 Hypertensive heart and chronic kidney disease with heart failure and with stage 5 chronic kidney disease, or end stage renal disease; I69.351 Hemiplegia and hemiparesis following cerebral infarction affecting right dominant side; E87.1 Hypo-osmolality and hyponatremia; K52.1 Toxic gastroenteritis and colitis; T82.7XXA Infection and inflammatory reaction due to other cardiac and vascular devices, implants and grafts, initial encounter; N25.81 Secondary hyperparathyroidism of renal origin; J90 Pleural effusion, not elsewhere classified; I25.10 Atherosclerotic heart disease of native coronary artery without angina pectoris; Z66 Do not resuscitate; K59.00 Constipation, unspecified; I25.5 Ischemic cardiomyopathy; I69.328 Other speech and language deficits following cerebral infarction; E11.22 Type 2 diabetes mellitus with diabetic chronic kidney disease; E11.649 Type 2 diabetes mellitus with hypoglycemia without coma; E78.5 Hyperlipidemia, unspecified; D63.1 Anemia in chronic kidney disease; F01.50 Vascular dementia, unspecified severity, without behavioral disturbance, psychotic disturbance, mood disturbance, and anxiety; E87.5 Hyperkalemia; J84.10 Pulmonary fibrosis, unspecified; M25.512 Pain in left shoulder; J47.9 Bronchiectasis, uncomplicated; D50.9 Iron deficiency anemia, unspecified; T36.95XA Adverse effect of unspecified systemic antibiotic, initial encounter; R53.81 Other malaise; R50.9 Fever, unspecified; Z99.2 Dependence on renal dialysis; Z87.891 Personal history of nicotine dependence; Z95.1 Presence of aortocoronary bypass graft; Z20.822 Contact with and (suspected) exposure to COVID-19; Z88.8 Allergy status to other drugs, medicaments and biological substances; Z79.82 Long term (current) use of aspirin; Z79.899 Other long term (current) drug therapy; Z79.4 Long term (current) use of insulin; Y83.1 Surgical operation with implant of artificial internal device as the cause of abnormal reaction of the patient, or of later complication, without mention of misadventure at the time of the procedure

== ENCOUNTER → 2021-01-26 | Outpatient (CLI) | payer MEDICARE, BC ==
[~2021-01-26] MED LIST changes: +BENZ-18 PO; +CEFD1CAP8 PO; +DOXY-350 PO; +HYDR-643 PO; +IBUP200T45 PO; +ISOVUE-300 61% 50ML VIAL As Ordered ONE; +LIDOCAINE 1% MDV 20ML VIAL As Ordered ONE; +MIDAZOLAM INJ 2MG/2ML VIAL (J2250 PER 1MG) As Ordered ONE; +fentaNYL 100 MCG/2 ML INJECTION (J3010) As Ordered ONE; +hydrALAZINE 20MG/ML 1ML VIAL (J0360 PER 20MG) As Ordered ONE
[2021-01-26 11:54] VITALS: BP 154/80
--- NOTE | 2021-01-26 14:49 | ROOPDOC ---
[facility] Report Of Operation Report of Operation DATE OF PROCEDURE: 01/26/21 PREPROCEDURE DIAGNOSES: Left AV Fistula Stenosis POSTPROCEDURE DIAGNOSES: Left AV Fistula Stenosis PROCEDURE PERFORMED: 1. Left basilic vein angioplasty with drug-coated balloon 2. Left subclavian vein angioplasty with drug-coated balloon SURGEON: Inga No MD ANESTHESIA: MAC and local ESTIMATED BLOOD LOSS: Approximately 3 mL COMPLICATIONS: None DESCRIPTION OF PROCEDURE: The patient was brought to the IR suite and placed on the IR table in the supine position. After adequate anesthesia was administered, the patients chest and left arm were prepped and draped in standard surgical fashion. Percutaneous entry into the AV Fistula was made with a micropuncture needle proximal to the anastomosis. Over guidewire exchange the microsheath was introduced and digital subtraction angiography was performed and revealed a patent left AV fistula and anastomosis with stenosis in the upper arm just prior to axillary vein designation. Over guidewire exchange, the microsheath was exchanged for a 7 Fr sheath and a 0.035 Glidewire was placed in the SVC. A Medtronic 8 mm x 40 mm drug-coated balloon was then used to perform angioplasty across the stenotic segment. Post-insufflation angiography revealed persistent stenosis. A Conquest 10 mm x 40 mm balloon was then used to perform angioplasty in the same segment with good results. A repeat angiography revealed resolution of the stenosis. Venography of the central system was then performed and revealed significant stenosis in the left subclavian vein as well as a mild in-stent restenosis of the innominate vein. A Medtronic 10 mm x 40 mm drug-coated balloon was then used to perform angioplasty across the stenotic subclavian vein. Postinsufflation angiography revealed resolution of the stenosis and good flow into the heart. No further intervention was performed. The wire and sheath were removed and the puncture site was closed with a Prolene suture. A sterile dressing was then placed. The patient had a palpable radial pulse and a good thrill in the AV fistula. INGA NO MD Jan 26, 2021 14:49
== END ==
LOC: M IRPRO 08:02
PROVIDERS: ATTEND Surgery Vascular Surgery
DX: T82.590A Other mechanical complication of surgically created arteriovenous fistula, initial encounter (principal)
CPT/HCPCS: 36902; 36907; 99152; 99153; C1725; C1769; C1894; C2623; J0360; J1644; J2250; J3010; Q9967

== ENCOUNTER 2021-02-03 15:18 | Inpatient (IN) | payer MEDICARE, BC ==
[~2021-02-03] VITALS: Ht 165.1 cm; Wt 65.6 kg
[~2021-02-03 15:18] MED LIST changes: -CEFD1CAP8 PO; +CEFD300C41 PO; -ISOVUE-300 61% 50ML VIAL As Ordered ONE; -LIDOCAINE 1% MDV 20ML VIAL As Ordered ONE; +LOSA100T45 PO; -LOSA100T50 PO; -MIDAZOLAM INJ 2MG/2ML VIAL (J2250 PER 1MG) As Ordered ONE; -OMEP-221 PO; +OMEP40CA5 PO; -fentaNYL 100 MCG/2 ML INJECTION (J3010) As Ordered ONE; -hydrALAZINE 20MG/ML 1ML VIAL (J0360 PER 20MG) As Ordered ONE
[2021-02-03 18:09] LABS: BASO % 0.5 % (0.0-1.0); EOS # 0.1 10^3/uL (0.0-0.5); EOS % 1.7 % (0.0-3.0); HEMOGLOBIN 10.2 g/dl (12.0-15.5); LYMPH % 15.1 % (24.0-44.0); MEAN CORPUSCULAR HEMOGLOBIN 27.3 pg (27.0-33.0); MEAN CORPUSCULAR VOLUME 90.9 fl (80.0-96.0); MONO # 0.5 10^3/uL (0.0-0.8); NEUTROPHILS # 4.9 10^3/uL (1.5-8.5); NEUTROPHILS % 74.2 % (36.0-66.0); PLATELET COUNT, AUTOMATED 129 10^3/uL (150-450); RED BLOOD COUNT 3.74 10^6/uL (4.00-5.40); WHITE BLOOD COUNT 6.5 10^3/uL (4.0-10.0)
[2021-02-03 18:41] LABS: CK-MB VALUE MASS 2.7 NG/ML (<3.6); MB/CK RELATIVE INDEX 1.33 (< OR =4)
[2021-02-03 18:48] LABS: ALBUMIN 3.2 GM/DL (3.2-5.2); ALT/SGPT 55 U/L (12-78); BILIRUBIN,DIRECT < 0.1 MG/DL (0.0-0.2); BILIRUBIN,TOTAL 0.4 MG/DL (0.2-1.0); BLOOD UREA NITROGEN 22 MG/DL (7-18); CALCIUM LEVEL 9.6 MG/DL (8.8-10.2); CARBON DIOXIDE LEVEL 34 MEQ/L (21-32); CHLORIDE LEVEL 102 MEQ/L (98-107); CREATININE FOR GFR 4.91 MG/DL (0.55-1.30); GLOMERULAR FILTRATION RATE 9.2 (>39); GLUCOSE, FASTING 143 MG/DL (70-100); POTASSIUM SERUM 5.3 MEQ/L (3.5-5.1); SODIUM LEVEL 138 MEQ/L (136-145); TOTAL PROTEIN 7.7 GM/DL (6.4-8.2)
[2021-02-03] MEDS ORDERED: PIPERACILLIN/TAZOBACTAM SOD 2.25 GM in D5W MINI-BAG PLUS 50 ML IV ONE (19:00)
[2021-02-03] MEDS ORDERED: HYDR-3910 PO (19:35)
[2021-02-03] MEDS ORDERED: CLOP75TA2 PO (19:36)
[2021-02-03] MEDS ORDERED: HOME MED LIST COMPLETE! XX SCH (19:40)
[2021-02-03] MEDS ORDERED: MOM 30ML SUSPENSION UDC PO PRN (21:55)
[2021-02-03] MEDS ORDERED: EMLA CREAM 5GM TUBE (LIDOCAINE/PRILOCAINE) TOP SCH (21:55)
[2021-02-03] MEDS ORDERED: MAALOX 30 ML SUSP *UDC PO PRN (21:55)
[2021-02-04] MEDS ORDERED: GLUCOSE 4GM CHEW TABLET PO PRN (00:40)
[2021-02-04] MEDS ORDERED: GLUCAGON INJ 1MG VIAL SC PRN (00:40)
[2021-02-04] MEDS ORDERED: DEXTROSE 50% 50 ML SYRINGE IV PRN (00:40)
[2021-02-04] MEDS: PIPERACILLIN/TAZOBACTAM SOD 2.25 GM in D5W MINI-BAG PLUS 50 ML IV SCH ×4 (01:03→20:44)
[2021-02-04] MEDS: CARVedilol 12.5 MG TAB PO SCH ×3 (01:03→20:43)
[2021-02-04] MEDS: traZODone 25MG PER 1/2 TABLET PO SCH ×2 (01:03→21:09)
[2021-02-04] MEDS: **hydrALAZINE HCL** 25 MG TAB PO SCH ×4 (01:03→20:43)
[2021-02-04] MEDS: HumaLOG INSULIN (NovoLOG) PER UNIT SC SCH ×6 (03:33→20:15)
[2021-02-04] MEDS ORDERED: LIDOCAINE 1% SDV 5ML VIAL SC PRN (08:00)
[2021-02-04] MEDS ORDERED: SODIUM CHLORIDE 0.9% 1000ML IV PRN (08:00)
[2021-02-04] MEDS: MULTIVITAMINS/MINERALS THERAP 1 TAB PO SCH (08:55)
[2021-02-04] MEDS: CLOPIDOGREL 75 MG TAB PO SCH (08:55)
[2021-02-04] MEDS: ASPIRIN 81MG ENTERIC TABLET PO SCH (08:55)
[2021-02-04] MEDS: amLODIPine 5 MG TAB PO SCH (08:56)
[2021-02-04] MEDS: COMBIVENT RESPIMAT 100-20MCG INHALER 4GM INH SCH ×2 (09:00→20:00)
[2021-02-04 13:15] VITALS: BP 131/65
[2021-02-04 14:57] LABS: BASO # 0.1 10^3/uL (0.0-0.2); BASO % 0.7 % (0.0-1.0); EOS # 0.1 10^3/uL (0.0-0.5); EOS % 1.4 % (0.0-3.0); HEMATOCRIT 34.8 % (36.0-47.0); HEMOGLOBIN 10.6 g/dl (12.0-15.5); LYMPH # 0.9 10^3/uL (1.5-5.0); LYMPH % 11.5 % (24.0-44.0); MEAN CORPUSCULAR HEMOGLOBIN 27.5 pg (27.0-33.0); MEAN CORPUSCULAR HGB CONC 30.5 g/dl (32.0-36.5); MEAN CORPUSCULAR VOLUME 90.2 fl (80.0-96.0); MONO # 0.5 10^3/uL (0.0-0.8); MONO % 6.4 % (2.0-8.0); NEUTROPHILS # 5.9 10^3/uL (1.5-8.5); NEUTROPHILS % 79.7 % (36.0-66.0); PLATELET COUNT, AUTOMATED 126 10^3/uL (150-450); RED BLOOD COUNT 3.86 10^6/uL (4.00-5.40); WHITE BLOOD COUNT 7.4 10^3/uL (4.0-10.0)
[2021-02-04 15:14] LABS: ERYTHROCYTE SEDIMENTATION RATE 43 mm/hr (0-30)
[2021-02-04 15:29] LABS: ALBUMIN 3.4 GM/DL (3.2-5.2); BILIRUBIN,TOTAL 0.5 MG/DL (0.2-1.0); C REACTIVE PROTEIN QUANTITATIV 0.51 MG/DL (0.00-0.30); CALCIUM LEVEL 9.6 MG/DL (8.8-10.2); CREATININE FOR GFR 6.5 MG/DL (0.55-1.30); GLOMERULAR FILTRATION RATE 6.6 (>39); MAGNESIUM LEVEL 2.8 MG/DL (1.8-2.4); POTASSIUM SERUM 5.2 MEQ/L (3.5-5.1); TOTAL PROTEIN 7.7 GM/DL (6.4-8.2)
[2021-02-04 22:00] VITALS: BP 132/64
[2021-02-05] MEDS: PIPERACILLIN/TAZOBACTAM SOD 2.25 GM in D5W MINI-BAG PLUS 50 ML IV SCH ×3 (02:35→16:50)
[2021-02-05 06:00] VITALS: BP 145/63
[2021-02-05] MEDS: MULTIVITAMINS/MINERALS THERAP 1 TAB PO SCH (06:14)
[2021-02-05] MEDS: ASPIRIN 81MG ENTERIC TABLET PO SCH (06:14)
[2021-02-05] MEDS: CLOPIDOGREL 75 MG TAB PO SCH (06:15)
[2021-02-05] MEDS: amLODIPine 5 MG TAB PO SCH (06:16)
[2021-02-05] MEDS: CARVedilol 12.5 MG TAB PO SCH ×2 (06:16→21:27)
[2021-02-05] MEDS: **hydrALAZINE HCL** 25 MG TAB PO SCH ×3 (06:17→21:27)
[2021-02-05] MEDS: COMBIVENT RESPIMAT 100-20MCG INHALER 4GM INH SCH ×2 (06:22→19:56)
[2021-02-05] MEDS: HumaLOG INSULIN (NovoLOG) PER UNIT SC SCH ×4 (08:14→21:00)
[2021-02-05 11:53] LABS: HEMATOCRIT 29.8 % (36.0-47.0); HEMOGLOBIN 9.3 g/dl (12.0-15.5); MEAN CORPUSCULAR HEMOGLOBIN 27.8 pg (27.0-33.0); MEAN CORPUSCULAR HGB CONC 31.2 g/dl (32.0-36.5); PLATELET COUNT, AUTOMATED 113 10^3/uL (150-450); RED BLOOD COUNT 3.35 10^6/uL (4.00-5.40); WHITE BLOOD COUNT 6.4 10^3/uL (4.0-10.0)
[2021-02-05 12:25] LABS: BILIRUBIN,TOTAL 0.5 MG/DL (0.2-1.0); CALCIUM LEVEL 9.5 MG/DL (8.8-10.2); CREATININE FOR GFR 7.49 MG/DL (0.55-1.30); GLOMERULAR FILTRATION RATE 5.6 (>39); POTASSIUM SERUM 4.4 MEQ/L (3.5-5.1); TOTAL PROTEIN 6.5 GM/DL (6.4-8.2)
[2021-02-05] MEDS: traZODone 25MG PER 1/2 TABLET PO SCH (21:27)
[2021-02-05 22:00] VITALS: BP 131/64
[2021-02-06] MEDS: PIPERACILLIN/TAZOBACTAM SOD 2.25 GM in D5W MINI-BAG PLUS 50 ML IV SCH ×3 (00:28→15:42)
[2021-02-06 06:00] VITALS: BP 130/62
[2021-02-06] MEDS: amLODIPine 5 MG TAB PO SCH (06:26)
[2021-02-06] MEDS: **hydrALAZINE HCL** 25 MG TAB PO SCH ×3 (06:27→20:48)
[2021-02-06] MEDS: ASPIRIN 81MG ENTERIC TABLET PO SCH (06:27)
[2021-02-06] MEDS: CLOPIDOGREL 75 MG TAB PO SCH (06:27)
[2021-02-06] MEDS: MULTIVITAMINS/MINERALS THERAP 1 TAB PO SCH (06:27)
[2021-02-06] MEDS: COMBIVENT RESPIMAT 100-20MCG INHALER 4GM INH SCH ×2 (07:58→19:56)
[2021-02-06] MEDS: HumaLOG INSULIN (NovoLOG) PER UNIT SC SCH ×4 (08:10→20:44)
[2021-02-06] MEDS: CARVedilol 12.5 MG TAB PO SCH ×2 (08:12→20:48)
[2021-02-06] MEDS ORDERED: DARBEPOETIN 100 MCG/0.5 ML *DIALYSIS* SYRINGE (J0882) IV SCH (10:25)
[2021-02-06 14:00] VITALS: BP 149/71
[2021-02-06 16:14] LABS: HEMATOCRIT 36.9 % (36.0-47.0); HEMOGLOBIN 11.2 g/dl (12.0-15.5); MEAN CORPUSCULAR HEMOGLOBIN 27.7 pg (27.0-33.0); MEAN CORPUSCULAR HGB CONC 30.4 g/dl (32.0-36.5); MEAN CORPUSCULAR VOLUME 91.1 fl (80.0-96.0); PLATELET COUNT, AUTOMATED 181 10^3/uL (150-450); RED BLOOD COUNT 4.05 10^6/uL (4.00-5.40); WHITE BLOOD COUNT 7.1 10^3/uL (4.0-10.0)
[2021-02-06 16:46] LABS: ALBUMIN 3.4 GM/DL (3.2-5.2); BILIRUBIN,TOTAL 0.4 MG/DL (0.2-1.0); CALCIUM LEVEL 9.4 MG/DL (8.8-10.2); CREATININE FOR GFR 6.25 MG/DL (0.55-1.30); GLOMERULAR FILTRATION RATE 6.9 (>39); TOTAL PROTEIN 7.9 GM/DL (6.4-8.2)
[2021-02-06] MEDS: ACETAMINOPHEN TAB 650MG DOSE (2X325MG) PO PRN (20:48)
[2021-02-06] MEDS: traZODone 25MG PER 1/2 TABLET PO SCH (20:48)
[2021-02-06 22:00] VITALS: BP 139/65
[2021-02-06] MEDS: traMADol 50 MG TAB PO PRN (22:25)
[2021-02-07] MEDS: PIPERACILLIN/TAZOBACTAM SOD 2.25 GM in D5W MINI-BAG PLUS 50 ML IV SCH ×2 (00:14→08:26)
[2021-02-07 06:00] VITALS: BP 140/73
[2021-02-07 06:26] LABS: HEMATOCRIT 32.1 % (36.0-47.0); HEMOGLOBIN 9.5 g/dl (12.0-15.5); MEAN CORPUSCULAR HEMOGLOBIN 27.1 pg (27.0-33.0); MEAN CORPUSCULAR HGB CONC 29.6 g/dl (32.0-36.5); MEAN CORPUSCULAR VOLUME 91.5 fl (80.0-96.0); PLATELET COUNT, AUTOMATED 144 10^3/uL (150-450); RED BLOOD COUNT 3.51 10^6/uL (4.00-5.40); WHITE BLOOD COUNT 6.2 10^3/uL (4.0-10.0)
[2021-02-07 07:10] LABS: ALBUMIN 2.8 GM/DL (3.2-5.2); BILIRUBIN,TOTAL 0.4 MG/DL (0.2-1.0); CALCIUM LEVEL 8.5 MG/DL (8.8-10.2); CREATININE FOR GFR 7.19 MG/DL (0.55-1.30); GLOMERULAR FILTRATION RATE 5.9 (>39); PERCENT SATURATION 43.5 % (13.2-45.0); POTASSIUM SERUM 4.3 MEQ/L (3.5-5.1); TOTAL PROTEIN 6.4 GM/DL (6.4-8.2)
[2021-02-07] MEDS: COMBIVENT RESPIMAT 100-20MCG INHALER 4GM INH SCH ×2 (07:55→18:15)
[2021-02-07] MEDS: HumaLOG INSULIN (NovoLOG) PER UNIT SC SCH ×4 (08:26→21:00)
[2021-02-07] MEDS: ASPIRIN 81MG ENTERIC TABLET PO SCH (08:27)
[2021-02-07] MEDS: MULTIVITAMINS/MINERALS THERAP 1 TAB PO SCH (08:27)
[2021-02-07] MEDS: CLOPIDOGREL 75 MG TAB PO SCH (08:27)
[2021-02-07] MEDS: CARVedilol 12.5 MG TAB PO SCH ×2 (08:28→20:27)
[2021-02-07] MEDS: amLODIPine 5 MG TAB PO SCH (08:28)
[2021-02-07] MEDS: **hydrALAZINE HCL** 25 MG TAB PO SCH ×3 (08:28→20:26)
[2021-02-07 14:00] VITALS: BP 148/70
[2021-02-07] MEDS: traMADol 50 MG TAB PO PRN (16:31)
[2021-02-07] MEDS: AUGMENTIN 500 MG TAB PO SCH (17:44)
[2021-02-07] MEDS ORDERED: LIDOCAINE 1% SDV 5ML VIAL SC PRN (18:10)
[2021-02-07] MEDS: traZODone 25MG PER 1/2 TABLET PO SCH (20:26)
[2021-02-08 06:00] VITALS: BP 146/68
[2021-02-08] MEDS: amLODIPine 5 MG TAB PO SCH (06:03)
[2021-02-08] MEDS: **hydrALAZINE HCL** 25 MG TAB PO SCH ×3 (06:03→20:54)
[2021-02-08] MEDS: MULTIVITAMINS/MINERALS THERAP 1 TAB PO SCH (06:03)
[2021-02-08] MEDS: ASPIRIN 81MG ENTERIC TABLET PO SCH (06:03)
[2021-02-08] MEDS: CLOPIDOGREL 75 MG TAB PO SCH (06:03)
[2021-02-08] MEDS: CARVedilol 12.5 MG TAB PO SCH ×2 (06:03→20:54)
[2021-02-08] MEDS: HumaLOG INSULIN (NovoLOG) PER UNIT SC SCH ×4 (07:36→20:21)
[2021-02-08] MEDS: COMBIVENT RESPIMAT 100-20MCG INHALER 4GM INH SCH ×2 (08:50→20:07)
[2021-02-08] MEDS: AUGMENTIN 500 MG TAB PO SCH (16:49)
[2021-02-08] MEDS: traZODone 25MG PER 1/2 TABLET PO SCH (20:50)
[2021-02-09] MEDS: COMBIVENT RESPIMAT 100-20MCG INHALER 4GM INH SCH ×2 (08:21→19:53)
[2021-02-09] MEDS: HumaLOG INSULIN (NovoLOG) PER UNIT SC SCH ×4 (09:23→21:00)
[2021-02-09] MEDS: ASPIRIN 81MG ENTERIC TABLET PO SCH (09:24)
[2021-02-09] MEDS: MULTIVITAMINS/MINERALS THERAP 1 TAB PO SCH (09:24)
[2021-02-09] MEDS: amLODIPine 5 MG TAB PO SCH (09:26)
[2021-02-09] MEDS: CARVedilol 12.5 MG TAB PO SCH ×2 (09:26→21:45)
[2021-02-09] MEDS: CLOPIDOGREL 75 MG TAB PO SCH (09:27)
[2021-02-09] MEDS: **hydrALAZINE HCL** 25 MG TAB PO SCH ×3 (09:27→21:45)
[2021-02-09] MEDS ORDERED: DARBEPOETIN 200MCG/0.4ML *DIALYSIS* SYRINGE (J0882 PER 1MCG) IV SCH (09:45)
[2021-02-09 12:14] LABS: HEMATOCRIT 29.6 % (36.0-47.0); MEAN CORPUSCULAR HEMOGLOBIN 27.5 pg (27.0-33.0); MEAN CORPUSCULAR HGB CONC 30.4 g/dl (32.0-36.5); MEAN CORPUSCULAR VOLUME 90.5 fl (80.0-96.0); PLATELET COUNT, AUTOMATED 125 10^3/uL (150-450); RED BLOOD COUNT 3.27 10^6/uL (4.00-5.40); WHITE BLOOD COUNT 6.2 10^3/uL (4.0-10.0)
[2021-02-09 12:54] LABS: ALBUMIN 2.7 GM/DL (3.2-5.2); BILIRUBIN,TOTAL 0.3 MG/DL (0.2-1.0); CALCIUM LEVEL 8.5 MG/DL (8.8-10.2); CREATININE FOR GFR 6.64 MG/DL (0.55-1.30); GLOMERULAR FILTRATION RATE 6.5 (>39); POTASSIUM SERUM 4.1 MEQ/L (3.5-5.1); TOTAL PROTEIN 6.3 GM/DL (6.4-8.2)
[2021-02-09] MEDS: AUGMENTIN 500 MG TAB PO SCH (17:08)
[2021-02-09 21:38] LABS: CLOSTRIDIUM DIFFICILE PCR NEGATIVE (NEGATIVE)
[2021-02-09] MEDS: traZODone 25MG PER 1/2 TABLET PO SCH (21:44)
[2021-02-09] MEDS: LACTOBACILLUS ACIDOPHILUS CAP (BACID) PO SCH (21:44)
[2021-02-09] MEDS ORDERED: LIDOCAINE 1% SDV 5ML VIAL SC PRN (22:25)
[2021-02-10] MEDS: traMADol 50 MG TAB PO PRN (01:09)
[2021-02-10] MEDS ORDERED: MORPHINE 2 MG/ML 1ML VIAL (J2270) IV ONE (02:05)
[2021-02-10] MEDS ORDERED: LOPERAMIDE 2 MG CAPLET PO PRN (02:05)
[2021-02-10] MEDS: ASPIRIN 81MG ENTERIC TABLET PO SCH (05:36)
[2021-02-10] MEDS: CLOPIDOGREL 75 MG TAB PO SCH (05:37)
[2021-02-10] MEDS: LACTOBACILLUS ACIDOPHILUS CAP (BACID) PO SCH ×2 (05:37→18:31)
[2021-02-10] MEDS: amLODIPine 5 MG TAB PO SCH (05:37)
[2021-02-10] MEDS: CARVedilol 12.5 MG TAB PO SCH ×2 (05:37→22:11)
[2021-02-10] MEDS: MULTIVITAMINS/MINERALS THERAP 1 TAB PO SCH (05:38)
[2021-02-10] MEDS: **hydrALAZINE HCL** 25 MG TAB PO SCH ×3 (05:38→22:11)
[2021-02-10 06:00] VITALS: BP 125/62
[2021-02-10] MEDS: COMBIVENT RESPIMAT 100-20MCG INHALER 4GM INH SCH ×2 (07:09→20:05)
[2021-02-10 07:29] LABS: HEMATOCRIT 30.7 % (36.0-47.0); HEMOGLOBIN 9.3 g/dl (12.0-15.5); MEAN CORPUSCULAR HEMOGLOBIN 27.4 pg (27.0-33.0); MEAN CORPUSCULAR HGB CONC 30.3 g/dl (32.0-36.5); MEAN CORPUSCULAR VOLUME 90.6 fl (80.0-96.0); PLATELET COUNT, AUTOMATED 130 10^3/uL (150-450); RED BLOOD COUNT 3.39 10^6/uL (4.00-5.40); WHITE BLOOD COUNT 6.7 10^3/uL (4.0-10.0)
[2021-02-10 08:07] LABS: ALBUMIN 2.8 GM/DL (3.2-5.2); BILIRUBIN,TOTAL 0.4 MG/DL (0.2-1.0); CALCIUM LEVEL 8.4 MG/DL (8.8-10.2); CREATININE FOR GFR 8.09 MG/DL (0.55-1.30); GLOMERULAR FILTRATION RATE 5.2 (>39); POTASSIUM SERUM 4.4 MEQ/L (3.5-5.1); TOTAL PROTEIN 6.2 GM/DL (6.4-8.2)
[2021-02-10] MEDS: HumaLOG INSULIN (NovoLOG) PER UNIT SC SCH ×4 (08:32→21:00)
[2021-02-10] MEDS: AUGMENTIN 500 MG TAB PO SCH (18:31)
[2021-02-10] MEDS: traZODone 25MG PER 1/2 TABLET PO SCH (22:11)
[2021-02-11 06:00] VITALS: BP 135/66
[2021-02-11] MEDS: HumaLOG INSULIN (NovoLOG) PER UNIT SC SCH ×4 (07:30→22:13)
[2021-02-11] MEDS: COMBIVENT RESPIMAT 100-20MCG INHALER 4GM INH SCH ×2 (08:02→20:53)
[2021-02-11] MEDS: ASPIRIN 81MG ENTERIC TABLET PO SCH (08:29)
[2021-02-11] MEDS: LACTOBACILLUS ACIDOPHILUS CAP (BACID) PO SCH ×2 (08:29→17:09)
[2021-02-11] MEDS: MULTIVITAMINS/MINERALS THERAP 1 TAB PO SCH (08:29)
[2021-02-11] MEDS: CLOPIDOGREL 75 MG TAB PO SCH (08:29)
[2021-02-11] MEDS: amLODIPine 5 MG TAB PO SCH (08:31)
[2021-02-11] MEDS: CARVedilol 12.5 MG TAB PO SCH ×2 (08:31→22:15)
[2021-02-11] MEDS: **hydrALAZINE HCL** 25 MG TAB PO SCH ×3 (08:31→22:15)
[2021-02-11 12:33] LABS: ALBUMIN 2.7 GM/DL (3.2-5.2); BILIRUBIN,TOTAL 0.4 MG/DL (0.2-1.0); CALCIUM LEVEL 8.1 MG/DL (8.8-10.2); CREATININE FOR GFR 6.44 MG/DL (0.55-1.30); GLOMERULAR FILTRATION RATE 6.7 (>39); TOTAL PROTEIN 6.4 GM/DL (6.4-8.2)
[2021-02-11 13:11] LABS: HEMATOCRIT 34.7 % (36.0-47.0); HEMOGLOBIN 10.4 g/dl (12.0-15.5); MEAN CORPUSCULAR HEMOGLOBIN 27.6 pg (27.0-33.0); PLATELET COUNT, AUTOMATED 178 10^3/uL (150-450); RED BLOOD COUNT 3.77 10^6/uL (4.00-5.40); WHITE BLOOD COUNT 5.9 10^3/uL (4.0-10.0)
[2021-02-11] MEDS ORDERED: RISATAB3 PO (15:36)
[2021-02-11] MEDS ORDERED: LOPE2CA PO (15:36)
[2021-02-11] MEDS: AUGMENTIN 500 MG TAB PO SCH (17:09)
[2021-02-11] MEDS: traZODone 25MG PER 1/2 TABLET PO SCH (22:15)
[2021-02-12 05:29] LABS: HEMATOCRIT 31.8 % (36.0-47.0); HEMOGLOBIN 9.6 g/dl (12.0-15.5); MEAN CORPUSCULAR HEMOGLOBIN 27.6 pg (27.0-33.0); MEAN CORPUSCULAR HGB CONC 30.2 g/dl (32.0-36.5); MEAN CORPUSCULAR VOLUME 91.4 fl (80.0-96.0); PLATELET COUNT, AUTOMATED 147 10^3/uL (150-450); RED BLOOD COUNT 3.48 10^6/uL (4.00-5.40); WHITE BLOOD COUNT 5.5 10^3/uL (4.0-10.0)
[2021-02-12 05:50] LABS: CALCIUM LEVEL 8.5 MG/DL (8.8-10.2); CREATININE FOR GFR 7.9 MG/DL (0.55-1.30); GLOMERULAR FILTRATION RATE 5.3 (>39); POTASSIUM SERUM 4.3 MEQ/L (3.5-5.1)
[2021-02-12 06:00] VITALS: BP 143/69
[2021-02-12 06:12] VITALS: BP 143/70
[2021-02-12] MEDS: MULTIVITAMINS/MINERALS THERAP 1 TAB PO SCH (06:12)
[2021-02-12] MEDS: **hydrALAZINE HCL** 25 MG TAB PO SCH (06:12)
[2021-02-12] MEDS: ASPIRIN 81MG ENTERIC TABLET PO SCH (06:12)
[2021-02-12] MEDS: CARVedilol 12.5 MG TAB PO SCH (06:12)
[2021-02-12] MEDS: amLODIPine 5 MG TAB PO SCH (06:13)
[2021-02-12] MEDS: CLOPIDOGREL 75 MG TAB PO SCH (06:13)
[2021-02-12] MEDS: HumaLOG INSULIN (NovoLOG) PER UNIT SC SCH ×2 (07:17→12:00)
[2021-02-12] MEDS: LACTOBACILLUS ACIDOPHILUS CAP (BACID) PO SCH (07:21)
[2021-02-12] MEDS ORDERED: SODIUM CHLORIDE 0.9% 1000ML IV PRN (07:35)
[2021-02-12] MEDS ORDERED: LIDOCAINE 1% SDV 5ML VIAL SC PRN (07:35)
[2021-02-12] MEDS: COMBIVENT RESPIMAT 100-20MCG INHALER 4GM INH SCH (07:42)
[2021-02-12 08:11] VITALS: BP 146/70
[2021-02-12] MEDS: traMADol 50 MG TAB PO PRN (08:11)
[2021-02-12] MEDS: ACETAMINOPHEN TAB 650MG DOSE (2X325MG) PO PRN (15:01)
== END 2021-02-12 15:34 | disposition home health service (06) | DRG 193 ==
LOC: M ED 15:18 → M ED INP 21:54 → ENRESERV 02-04 12:07 → M MSPAV 02-04 12:55 → OBSVTOIN 02-05 11:37
PROVIDERS: ADMIT Family Medicine; ATTEND Internal Medicine
PROC: 5A1D70Z Performance of Urinary Filtration, Intermittent, Less than 6 Hours Per Day (ICD-10-PCS; principal; 2021-02-05)
DX: J18.9 Pneumonia, unspecified organism (principal); N18.6 End stage renal disease; I50.42 Chronic combined systolic (congestive) and diastolic (congestive) heart failure; I69.351 Hemiplegia and hemiparesis following cerebral infarction affecting right dominant side; I13.2 Hypertensive heart and chronic kidney disease with heart failure and with stage 5 chronic kidney disease, or end stage renal disease; K52.1 Toxic gastroenteritis and colitis; I25.10 Atherosclerotic heart disease of native coronary artery without angina pectoris; I25.5 Ischemic cardiomyopathy; I69.328 Other speech and language deficits following cerebral infarction; E11.22 Type 2 diabetes mellitus with diabetic chronic kidney disease; E78.5 Hyperlipidemia, unspecified; D63.1 Anemia in chronic kidney disease; J84.10 Pulmonary fibrosis, unspecified; R26.2 Difficulty in walking, not elsewhere classified; E87.5 Hyperkalemia; R53.81 Other malaise; J47.9 Bronchiectasis, uncomplicated; T36.0X5A Adverse effect of penicillins, initial encounter; M25.519 Pain in unspecified shoulder; R59.0 Localized enlarged lymph nodes; Z95.1 Presence of aortocoronary bypass graft; Z99.2 Dependence on renal dialysis; Z79.82 Long term (current) use of aspirin; Z79.02 Long term (current) use of antithrombotics/antiplatelets; Z79.899 Other long term (current) drug therapy; Z88.8 Allergy status to other drugs, medicaments and biological substances

== ENCOUNTER 2021-02-24 22:35 | Inpatient (IN) | payer MEDICARE, BC ==
[~2021-02-24] VITALS: Ht 165.1 cm; Wt 64.2 kg
[~2021-02-24 22:35] MED LIST changes: +CEFD1CAP8 PO; -CEFD300C41 PO; +LOPE2CA PO; -LOSA100T45 PO; +LOSA100T50 PO; +OMEP-221 PO; -OMEP40CA5 PO; +RISATAB3 PO
[2021-02-25] MEDS ORDERED: ONDANSETRON 4MG/2ML VIAL IV ONE (01:55)
[2021-02-25] MEDS ORDERED: MORPHINE 2 MG/ML 1ML VIAL (J2270) IV PRN (01:55)
[2021-02-25] MEDS ORDERED: NS 500 ML IV ONE (01:55)
[2021-02-25 03:32] LABS: CK-MB VALUE MASS 3.5 NG/ML (<3.6); MB/CK RELATIVE INDEX 3.43 (< OR =4)
--- NOTE | 2021-02-25 03:40 | REPVR ---
PROCEDURE INFORMATION: Exam: CT Abdomen and Pelvis without Contrast Exam date and time: 02/25/2021 (1:59am) Age: 76 years old Clinical indication: Vomiting and generalized abdominal pain. ESRD. History of knee pain. TECHNIQUE: Imaging protocol: Computed tomography of the abdomen and pelvis without contrast Radiation optimization: All CT scans at this facility use at least one of these dose optimization techniques: automated exposure control; mA and/or kV adjustment per patient size (includes targeted exams where dose is matched to clinical indication); or iterative reconstruction. COMPARISON: CT ABDOMEN PELVIS of 12/17/20 FINDINGS: Lower lung limon: Large left pleural effusion. Streaky and patchy bibasilar infiltrates, more confluent at the left lung base. Calcified granuloma posterolaterally near the right lung base. Cardiomegaly. Coronary artery calcifications. Liver: Normal. No solid mass. Gallbladder and bile ducts: Normal. No calcified stones. No ductal dilatation. Pancreas: Normal. No ductal dilatation. Spleen: Normal. No splenomegaly. Adrenal glands: Normal. No mass. Kidneys and ureters: No hydronephrosis. Some bilateral renal atrophy. Stomach and bowel: Distended stomach, filled with fluid and air (similar appearance 2 months ago). No bowel obstruction. No mucosal thickening. Much stool in the left colon and rectosigmoid. Suspect wall thickening of the lower rectum and anus (similar appearance 2 months ago). Appendix: A normal appendix may be visualized. No evidence of appendicitis. Intraperitoneal space: Unremarkable. No free air. No significant fluid collection. Vasculature: Atherosclerotic aortic and iliac artery calcifications. No abdominal aortic aneurysm. Lymph nodes: Unremarkable. No enlarged lymph nodes. Urinary bladder: Unremarkable as visualized. Reproductive: Perhaps S/P hysterectomy. Bilateral adnexal cysts (each approx. 2 cm diameter) (probably ovarian cysts). Bones/joints: No acute fracture. Degenerative thoracolumbar spine changes, most notably at the L3-L4 and L4-L5 levels (stable appearance). Soft tissues: Unremarkable. IMPRESSION: Bibasilar streaky and patchy lung disease again seen, more confluent and dense at the left lung base. Some clearing of right infrahilar disease over the past 2 months. Large left pleural effusion again seen. Bilateral adnexal cysts (each 2 cm size) again seen. Possible constipation. Possible stercoral colitis (also suggested 2 months ago). Electronically signed by: Yi Lowe On 02/25/2021 03:39:15 AM
[2021-02-25 03:41] LABS: RSV AMPLIFICATION NEGATIVE (NEGATIVE)
[2021-02-25 03:46] LABS: ALBUMIN 3.5 GM/DL (3.2-5.2); BILIRUBIN,DIRECT 0.1 MG/DL (0.0-0.2); BILIRUBIN,TOTAL 0.4 MG/DL (0.2-1.0); CALCIUM LEVEL 9.1 MG/DL (8.8-10.2); CREATININE FOR GFR 7.46 MG/DL (0.55-1.30); GLOMERULAR FILTRATION RATE 5.7 (>39); POTASSIUM SERUM 4.7 MEQ/L (3.5-5.1); TOTAL PROTEIN 8.7 GM/DL (6.4-8.2)
--- NOTE | 2021-02-25 04:24 | REPVR ---
PROCEDURE INFORMATION: Exam: XR Right Knee Exam date and time: 02/25/21 (3:10am) Age: 76 years old Clinical indication: Fall. Right knee pain. TECHNIQUE: Imaging protocol: XR Right knee Views: 4 or more views COMPARISON: US BILAT LOWER EXTREM ARTERIAL of 03/24/20 FINDINGS: No acute fracture nor dislocation. Extensive atherosclerotic arterial calcifications. A few small surgical clips the in the soft tissues medial to the distal right femur. IMPRESSION: No acute traumatic pathology. Electronically signed by: Yi Lowe On 02/25/2021 04:23:58 AM
[2021-02-25 04:49] LABS: BASO % 0.4 % (0.0-1.0); EOS % 0.2 % (0.0-3.0); HEMATOCRIT 29.3 % (36.0-47.0); HEMOGLOBIN 8.7 g/dl (12.0-15.5); LYMPH # 0.5 10^3/uL (1.5-5.0); LYMPH % 10.4 % (24.0-44.0); MEAN CORPUSCULAR HEMOGLOBIN 27.2 pg (27.0-33.0); MEAN CORPUSCULAR HGB CONC 29.7 g/dl (32.0-36.5); MEAN CORPUSCULAR VOLUME 91.6 fl (80.0-96.0); MONO # 0.5 10^3/uL (0.0-0.8); MONO % 9.3 % (2.0-8.0); NEUTROPHILS # 3.9 10^3/uL (1.5-8.5); NEUTROPHILS % 79.3 % (36.0-66.0); PLATELET COUNT, AUTOMATED 169 10^3/uL (150-450); WHITE BLOOD COUNT 4.9 10^3/uL (4.0-10.0)
[2021-02-25 05:01] LABS: INR 1.18; PROTHROMBIN TIME 15.4 SECONDS (12.7-14.5)
[2021-02-25 05:02] LABS: PARTIAL THROMBOPLASTIN TIME 32.1 SECONDS (25.9-37.0)
[2021-02-25 05:19] LABS: CK-MB VALUE MASS 2.7 NG/ML (<3.6); MB/CK RELATIVE INDEX 3.75 (< OR =4)
[2021-02-25] MEDS ORDERED: METOCLOPRAMIDE INJ 10MG/2ML VIAL (J2765 PER 1) As Ordered ONE (05:53)
[2021-02-25] MEDS ORDERED: METOCLOPRAMIDE INJ 10MG/2ML VIAL (J2765 PER 1) IV ONE (05:55)
--- NOTE | 2021-02-25 06:40 | ECGEPIP ---
[facility] - ED Test Date: 2021-02-25 Pat Name: RONNIE BRAN Department: Room: - Gender: Female Rides Supervisor: RITESH : [id number] Requested By: RUFUS Salguero Order Number: [id number] Reading MD: Lenny Carrillo Measurements Intervals [place] Rate: 87 P: 74 VA: 176 QRS: 5 QRSD: 100 T: 99 QT: 420 QTc: 505 Interpretive Statements Normal sinus rhythm Minimal voltage criteria for LVH, may be normal variant ( Juancarlos product ) Anterior infarct , age undetermined Prolonged QTc Nonspecific ST T wave changes cw 02/03/21 rate decreased prolonged QTc Nonspecific ST T wave changes Electronically Signed on 02-25-2021 6:40:00 EST by Lenny Carrillo
[2021-02-25] MEDS ORDERED: ONDANSETRON 4MG/2ML VIAL IV PRN (07:30)
[2021-02-25] MEDS ORDERED: CIPROFLOXACIN 400 MG in IV 1 EA IV ONE (08:00)
[2021-02-25] MEDS: PRAVASTATIN 20 MG TAB PO SCH ×2 (09:00→22:35)
[2021-02-25] MEDS: metroNIDAZOLE 500 MG in IV 1 EA IV SCH ×2 (09:00→22:35)
[2021-02-25] MEDS: amLODIPine 5 MG TAB PO SCH (09:00)
[2021-02-25] MEDS: METOCLOPRAMIDE INJ 10MG/2ML VIAL (J2765 PER 1) IV PRN (09:31)
[2021-02-25] MEDS ORDERED: EMLA CREAM 5GM TUBE (LIDOCAINE/PRILOCAINE) TOP ONE (10:20)
[2021-02-25] MEDS ORDERED: COEN100T PO (10:54)
[2021-02-25] MEDS ORDERED: CALC600T63 PO (10:54)
[2021-02-25] MEDS ORDERED: PRAV80TA2 PO (10:54)
[2021-02-25] MEDS ORDERED: C-101TAB3 PO (10:54)
[2021-02-25] MEDS ORDERED: CIDA500T2 PO (10:54)
[2021-02-25] MEDS ORDERED: HOME MED LIST COMPLETE! XX SCH (11:00)
--- NOTE | 2021-02-25 13:00 | CR ---
NEPHROLOGY CONSULTATION DATE: 02/25/2021 CONSULTATION REQUESTED BY: Cristiana Mg M.D. REASON FOR CONSULTATION: To assist in the management of end-stage renal disease. HISTORY OF PRESENT ILLNESS: Mrs. Acosta is a 76-year-old female with multiple chronic medical problems including diabetes, recurrent pleural effusions, congestive heart failure and end-stage renal disease. She presented to the emergency room with generalized weakness and persistent nausea. She is admitted this morning and nephrology consultation was requested. Patient is seen in the emergency room. PAST MEDICAL HISTORY: Significant for: 1. History of longstanding diabetes. 2. Coronary artery disease status post coronary artery bypass graft (CABG). 3. History of ischemic cardiomyopathy with ejection fraction of 35-40%. 4. History of systolic and diastolic congestive heart failure. 5. History of prior stroke with residual minimal right-sided weakness. 6. Hypertension. 7. History of dyslipidemia. 8. History of spinal stenosis status post lumbar laminectomy at L2, L3 and L4 levels. 9. History of end-stage renal disease requiring maintenance hemodialysis. 10. History of recurrent pleural effusion on the left side. 11. History of chronic back pain. 12. Anemia. 13. History of hyperparathyroidism. PAST SURGICAL HISTORY: Significant for: 1. Coronary artery bypass surgery. 2. Lumbar laminectomy. 3. Peritoneal dialysis catheter placement and removal. 4. Multiple surgeries for arteriovenous (AV) fistulas and Permacath placement. 5. History of hysterectomy. PERSONAL AND SOCIAL HISTORY: Patient is and lives with her . She does not smoke or drink. FAMILY HISTORY: Noncontributory and negative for end-stage renal disease. MEDICATIONS: Her home medications include: - amlodipine 10 mg daily - aspirin 81 mg daily - carvedilol 12.5 mg twice a day - Plavix 75 mg daily - hydralazine 25 mg three times a day - Combivent inhaler twice a day - multivitamin one tablet daily - trazodone 25 mg at bedtime ALLERGIES: She has allergies to STATINS. REVIEW OF SYSTEMS: CONSTITUTIONAL: Patient is generally feeling very weak. She denies any fevers or chills. EARS, NOSE AND THROAT: Unremarkable. CARDIOVASCULAR SYSTEM: Negative for chest pain or dyspnea. She denies any leg edema. RESPIRATORY SYSTEM: Negative for cough or hemoptysis. GASTROINTESTINAL (GI) SYSTEM: Significant for nausea and poor appetite. She denies any vomiting or diarrhea. GENITOURINARY () SYSTEM: Negative for dysuria or hematuria. ENDOCRINE SYSTEM: Significant for diabetes and secondary hyperparathyroidism. MUSCULOSKELETAL SYSTEM: Significant for inability to ambulate due to generalized weakness and spinal stenosis. SKIN: Negative for rash or ulcers. NEUROLOGICAL SYSTEM: Significant for prior stroke with minimal right-sided residual weakness and spinal stenosis. PHYSICAL EXAMINATION: GENERAL: Elderly -Chinese lady laying in the stretcher on her side. VITAL SIGNS: Temperature 97.6 degrees Fahrenheit, heart rate 86 per minute, respiratory rate 16 per minute, blood pressure 155/70 mmHg, oxygen saturation 96% on room air. HEAD: Atraumatic. NECK: Supple and jugular venous distention (JVD) difficult to be assessed. HEART SOUNDS: Irregular. LUNGS: Diminished breath sounds at left base and bibasilar rales. ABDOMEN: Soft and minimally tender. Bowel sounds are present. EXTREMITIES: Without any cyanosis or clubbing. Left arm arteriovenous (AV) fistula is patent. There is no peripheral edema. NEUROLOGIC: She is at her baseline mentation with minimal right-sided weakness from her prior stroke. LABORATORY DATA: WBC count 4.9, hemoglobin 8.7, hematocrit 29.3. Sodium 135, potassium 4.7, BUN 39, creatinine 7.46, glucose 167, lactic acid 1.3. Liver function tests (LFTs) are within normal range. IMAGING: She had a CAT scan of abdomen and pelvis done in the emergency room, which was reviewed and she is noticed to have some evidence of bibasilar atelectasis and possible colitis. She also has a left pleural effusion. It is important to note that patient has declined thoracentesis in the past. PROBLEMS: 1. End-stage renal disease. Patient is regularly dialyzed on Monday, Monday and Monday schedule. She was dialyzed yesterday and we will plan next dialysis for tomorrow. At present, there is no emergent need for dialysis today. 2. Anemia. Her anemia is stable and does not need any urgent intervention. We will manage it with dialysis and give her a dose of Aranesp with the next dialysis treatment. 3. Nausea and abdominal discomfort. She does have some nonspecific colitis. She denies any diarrhea, but her nausea persists. I have discussed with the patient about the potential need for antibiotic therapy. She has been refusing to get antibiotics and seems to be agreeable now to get intravenous antibiotics. I agree with ciprofloxacin and metronidazole. 4. Hypertension. Blood pressure seems reasonably well controlled and she is not on any antihypertensive medications. Thank you for involving me in the care of Mrs. Acosta. I will follow her along with you.
--- NOTE | 2021-02-25 13:32 | HPEPDOC ---
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 Patient is an overall poor historian and would barely speak to me during my interview. Patient states she has been vomiting for the past 2 days and has not been able to keep anything down. Has intermittent diarrhea, nonbloody. She states she fell last evening and landed on her right knee with pain. The patient states she came to the emergency room because her symptoms did not improve. She denies chest pain, lightheadedness, dizziness, fevers, chills, recent illnesses. Was hospitalzied for questionable pneumonia and diarrhea 02/05-. She was brought to the ER to be further evaluated. In the emergency room vital signs showed 97.9, 77, 19, 139/88, 100% on 2 L nasal cannula. Patient was complaining of right knee pain. Right knee x-ray was negative. CT of the abdomen and pelvis showed large left pleural effusion, some constipation questionable colitis; however, all old findings, nothing acute. Blood work, ECG did not indicate a reason for intractable nausea. Despite pain and nausea medications the patient was still nauseous and vomiting. She was unable to ambulate. Patient was ultimately admitted for intractable nausea and vomiting, weakness status post fall to be further evaluated. Nephrology is consulted to manage end-stage renal disease and hemodialysis. REVIEW OF SYSTEMS: Neg except mentioned above PAST MEDICAL HISTORY: 1. CAD s/p CABG 2. Ischemic cardiomyopathy 3. HFrEF with EF 35% to 40% 4. 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 Hypertension 6. IDDM type 2 7. Dyslipidemia 8. Spinal stenosis s/p lumbar laminectomy L2, L3, L4 9. ESRD on dialysis MWF 10. Anemia of chronic disease 11. Bilateral bronchiectasis with calcified granulomas with mediastinal lymphadenopathy 12. Chronic pulmonary fibrosis 13. Chronic back pain 14. Debility (uses rolling walker) 15. Recent PNA with hospitalization 02/05- PAST SURGICAL HISTORY: 1. CABG 2. Lumbar laminectomy of L2 to L4 3. Hysterectomy 4. Fistulogram and dilations of the AVF SOCIAL HISTORY: non smoker no hx etoh use no hx illicit drug use FAMILY HISTORY: Mother had hx of ESRD on HD ALLERGIES: Please see below. HOME MEDICATIONS: Please see below. PHYSICAL EXAMINATION: VS: 97.9, 77, 19, 159/88, 100% on 2 L nasal cannula CONSTITUTIONAL: No acute distress, resting comfortably, AAO x 3 EYES: PERRLA, EOM intact HENT, MOUTH: Normocephalic, atraumatic, moist mucous membranes NECK: SUPPLE, no JVD, no lymphadenopathy, no carotid bruit CV: Regular rate and rhythm, S1S2 normal, no murmurs/rubs/gallops RESPIRATORY: Clear to auscultation bilaterally, no rales/rhonchi/wheezes GI: BS positive in 4 quadrants, soft, nontender, nondistended, no rebound or guarding, no organomegaly : Deferred MUSCULOSKELETAL: Normal ROM. No cyanosis, clubbing, swelling, joint deformity, extremity edema INTEGUMENTARY: Intact, no rashes, no lesions, no erythema NEUROLOGIC: Cranial Nerves II-XII are intact, no focal deficits PSYCHIATRIC: Mood and affect are normal LABORATORY DATA: Please see below IMAGING: CT abd/pelvis: Bibasilar streaky and patchy lung disease again seen, more confluent and dense at the left lung base. Some clearing of right infrahilar disease over the past 2 months. Large left pleural effusion again seen. Bilateral adnexal cysts (each 2 cm size) again seen. Possible constipation. Possible stercoral colitis (also suggested 2 months ago). 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 2/2 to stercoral colitis? -This has been an ongoing issue over the past several months -It appears the colitis has been seen on prior CTs but was not treated with antibiotics -Previous admissions C. difficile was ruled out and loperamide was ordered. Patient is hesitant to use loperamide -For now continue with all home meds. -Zofran as needed, cipro, flagyl, probiotic -GI panel if diarrhea is seen Fall with right knee pain -History of chronic deconditioning -Patient states she went to grab something and fell losing her balance. -Right knee x-ray negative -Nutritional optimization, PT/OT Hx of CVA with residual R sided deficits - c/w plavix, ASA, statin. Chronic physical deconditioning, debility -PT: C/w home services ESRD on HD M/W/F -Patient states she missed hemodialysis yesterday - Dr. Daniel consulted DMII - ISS, FSBS AC and HS. HTN - c/w amlodipine, hydralazine, and Coreg CAD/CABG/HFrEF -c/w aspirin and carvedilol DVT px -Heparin DISPOSITION: Admitted as acute inpatient. Nephrology consulted. Full Code. Vital Signs Vital Signs Date Time Temp Pulse Resp B/P (MAP) Pulse Ox O2 Delivery O2 Flow Rate FiO2 02/25/21 06:16 97.9 77 19 159/88 (111) 100 Nasal Cannula 2.0 Laboratory Data Labs 24H Laboratory Tests 2 02/25/21 02:52: Immature Granulocyte % (Auto) 0.4, Neutrophils (%) (Auto) 79.3H, Lymphocytes (%) (Auto) 10.4L, Monocytes (%) (Auto) 9.3H, Eosinophils (%) (Auto) 0.2, Basophils (%) (Auto) 0.4, Neutrophils # (Auto) 3.9, Lymphocytes # (Auto) 0.5L, Monocytes # (Auto) 0.5, Eosinophils # (Auto) 0.0, Basophils # (Auto) 0.0, Nucleated Red Blood Cells % (auto) 0.0, Prothrombin Time 15.4H, Prothromb Time International Ratio 1.18, Activated Partial Thromboplast Time 32.1, Anion Gap 11, Glomerular Filtration Rate 5.7L, Lactic Acid Level 1.3, Calcium Level 9.1, Total Bilirubin 0.4, Direct Bilirubin 0.1, Aspartate Amino Transf (AST/SGOT) 26, Alanine Aminotransferase (ALT/SGPT) 33, Alkaline Phosphatase 107, Total Creatine Kinase 102, Creatine Kinase MB 3.5, Creatine Kinase MB Relative Index 3.43, Troponin I High Sensitivity 41.0, Total Protein 8.7H, Albumin 3.5, Albumin/Globulin Ratio 0.7L, Lipase 269, Coronavirus (COVID-19)(PCR) NEGATIVE, Influenza Type A (RT- PCR) NEGATIVE, Influenza Type B (RT-PCR) NEGATIVE, Respiratory Syncytial Virus (PCR) NEGATIVE 02/25/21 04:44: Total Creatine Kinase 72, Creatine Kinase MB 2.7, Creatine Kinase MB Relative Index 3.75, Troponin I High Sensitivity 40.0 CBC/BMP Laboratory Tests 02/25/21 02:52 Home Medications Scheduled Amlodipine Besylate (Amlodipine Besylate) 5 Mg Tablet, 5 MG PO DAILY Ascorbic Acid (C-1000) 1,000 Mg Tablet, 1,000 MG PO DAILY Aspirin (Aspirin EC) 81 Mg Tablet.dr, 81 MG PO DAILY Calcium Carbonate/Vitamin D3 (Calcium 600-Vit D3 400 Tablet) 1 Each Tablet, 1 TAB PO DAILY Carvedilol (Carvedilol) 12.5 Mg Tablet, 12.5 MG PO BID Clopidogrel Bisulfate (Clopidogrel) 75 Mg Tablet, 75 MG PO DAILY Glucosamine/Chondr Dillon A Sod (Cidaflex Tablet) 1 Each Tablet, 1 TAB PO DAILY Hydralazine HCl (Hydralazine HCl) 25 Mg Tablet, 25 MG PO TID Ipratropium/Albuterol Sulfate (Combivent Respimat 20-100 Mcg) 4 Gm Mist.inhal, 1 PUFF INH BID Lidocaine/Prilocaine (Lidocaine-Prilocaine Cream) 2.5%/2.5% Cream..g., 1 APLCT TOP 3XW MONDAY, MONDAY AND MONDAY PRIOR TO DIALYSIS Multivitamins (Thera M Plus Tablet) 1 Each Tablet, 1 TAB PO DAILY Pravastatin Sodium (Pravastatin Sodium) 80 Mg Tablet, 80 MG PO DAILY Ubidecarenone (Coenzyme Q10) 100 Mg Tablet, 100 MG PO DAILY Allergies Coded Allergies: [id number] Reductase Inhibitor (Verified Adverse Reaction, Unknown, PAIN, 10/05/20) PT SAYS SHE CAN TAKE PRAVASTATIN A-FIB/CHADSVASC A-FIB History Current/History of A-Fib/PAF?: No Age/Risk Factor Scoring CHADSVASC: CHADSVASC Response (Comments) Value Age Risk Factor Age >/= 75 years old 2 Gender Risk Factor Female 1 Hx of CHF Yes 1 Hx of HTN Yes 1 Hx of Stroke/TIA/or VTE Yes 2 Hx of Diabetes Yes 1 Hx of Vascular Disease Yes 1 Total 9 Treatment Treatment ordered: Other Other anticoagulant ordered: heparin Cristiana Mg MD Feb 25, 2021 07:28
[2021-02-25] MEDS: **hydrALAZINE HCL** 25 MG TAB PO SCH ×2 (16:00→22:38)
[2021-02-25] MEDS: LACTOBACILLUS ACIDOPHILUS CAP (BACID) PO SCH (18:00)
[2021-02-25] MEDS: COMBIVENT RESPIMAT 100-20MCG INHALER 4GM INH SCH (20:05)
[2021-02-25 21:00] VITALS: BP 130/74
[2021-02-25] MEDS: HEPARIN SOD (PORCINE) 5000UNITS/ML 1ML VIAL/SYRINGE SQ SCH (21:56)
[2021-02-25] MEDS: CARVedilol 12.5 MG TAB PO SCH (21:57)
[2021-02-25] MEDS: CLOPIDOGREL 75 MG TAB PO SCH (22:35)
[2021-02-25] MEDS: ASPIRIN 81MG ENTERIC TABLET PO SCH (22:35)
[2021-02-25] MEDS: MULTIVITAMINS/MINERALS THERAP 1 TAB PO SCH (22:35)
[2021-02-26] MEDS: metroNIDAZOLE 500 MG in IV 1 EA IV SCH ×4 (01:46→17:00)
[2021-02-26] MEDS: METOCLOPRAMIDE INJ 10MG/2ML VIAL (J2765 PER 1) IV PRN (04:05)
[2021-02-26 06:00] VITALS: BP 135/76
[2021-02-26 06:35] LABS: HEMATOCRIT 31.1 % (36.0-47.0); HEMOGLOBIN 9.1 g/dl (12.0-15.5); MEAN CORPUSCULAR HEMOGLOBIN 27.1 pg (27.0-33.0); MEAN CORPUSCULAR HGB CONC 29.3 g/dl (32.0-36.5); MEAN CORPUSCULAR VOLUME 92.6 fl (80.0-96.0); PLATELET COUNT, AUTOMATED 187 10^3/uL (150-450); RED BLOOD COUNT 3.36 10^6/uL (4.00-5.40)
[2021-02-26 07:09] LABS: BILIRUBIN,TOTAL 0.2 MG/DL (0.2-1.0); CALCIUM LEVEL 8.6 MG/DL (8.8-10.2); CREATININE FOR GFR 8.56 MG/DL (0.55-1.30); GLOMERULAR FILTRATION RATE 4.8 (>39); POTASSIUM SERUM 5.1 MEQ/L (3.5-5.1)
[2021-02-26] MEDS ORDERED: LIDOCAINE 1% SDV 5ML VIAL SC PRN (07:30)
[2021-02-26] MEDS ORDERED: SODIUM CHLORIDE 0.9% 1000ML IV PRN (07:30)
[2021-02-26] MEDS ORDERED: DARBEPOETIN 100 MCG/0.5 ML *DIALYSIS* SYRINGE (J0882) IV SCH (07:30)
[2021-02-26] MEDS: LACTOBACILLUS ACIDOPHILUS CAP (BACID) PO SCH ×2 (07:48→17:49)
[2021-02-26] MEDS: MULTIVITAMINS/MINERALS THERAP 1 TAB PO SCH (07:48)
[2021-02-26] MEDS: PRAVASTATIN 20 MG TAB PO SCH (07:48)
[2021-02-26] MEDS: CLOPIDOGREL 75 MG TAB PO SCH (07:48)
[2021-02-26] MEDS: ASPIRIN 81MG ENTERIC TABLET PO SCH (07:48)
[2021-02-26] MEDS: CO-ENZYME Q10 50 MG CAP PO SCH (07:48)
[2021-02-26] MEDS: **hydrALAZINE HCL** 25 MG TAB PO SCH ×3 (07:49→16:21)
[2021-02-26] MEDS: HEPARIN SOD (PORCINE) 5000UNITS/ML 1ML VIAL/SYRINGE SQ SCH ×3 (07:49→22:53)
[2021-02-26] MEDS: CARVedilol 12.5 MG TAB PO SCH ×3 (07:50→22:53)
[2021-02-26] MEDS: amLODIPine 5 MG TAB PO SCH ×2 (07:50→08:26)
[2021-02-26] MEDS: COMBIVENT RESPIMAT 100-20MCG INHALER 4GM INH SCH ×2 (08:00→20:00)
[2021-02-26] MEDS: EMLA CREAM 5GM TUBE (LIDOCAINE/PRILOCAINE) TOP SCH (08:05)
--- NOTE | 2021-02-26 11:02 | IPNPDOC ---
Text Note Date of Service The patient was seen on 02/26/21. NOTE Subjective: Patient was seen during her dialysis session today. She reports to be doing well, she reports her nausea has mildly improved, reports having one episode of central abdominal pain in the morning which gradually resolved. Denies having any fever, chills, vomiting, diarrhea. Objective: General: Patient was seen during the dialysis session she is laying comfortably. Does not appear to be in any acute distress. Cardiac: S1-S2 noted, no murmurs appreciated. Lungs: Could only hear the lateral lungs given that she is connected to the machine for dialysis. Diminished breath sounds in her bilateral lateral bases. Abdomen: Soft, mild tenderness on deep palpation, positive bowel sounds appreciated in all 4 quadrants. Extremities: Does not have any pedal edema. She has a left arm AV fistula which is being used for her dialysis. Assessment/plan: End-stage renal disease: Patient is on Monday schedule outpatient. She is getting her dialysis today. Her fluid balance and electrolytes are managed through the dialysis. She would be getting off about 2.5 L of fluid from her today. Anemia: Her anemia is due to the ESRD. She generally gets a dose of Aranesp with her dialysis. Hypertension: Blood pressure seems to be stable. She is getting amlodipine 5 mg p.o. daily, Coreg 12.5 mg p.o. twice daily, hydralazine 25 mg p.o. 3 times daily. These are her home hypertension medications which she is continued on and her blood pressure is in acceptable range. Colitis: Patient is on ciprofloxacin and Flagyl IV. Her nausea is likely because of colitis and is managed with metoclopramide and ondansetron. Managed As per the Primary Team. VS,Fishbone, I+O VS, Fishbone, I+O Laboratory Tests 02/26/21 06:03 Vital Signs Date Time Temp Pulse Resp B/P (MAP) Pulse Ox O2 Delivery O2 Flow Rate FiO2 02/26/21 06:00 97.6 77 14 135/76 (95) 100 Room Air 02/25/21 20:00 2.0 I&O- Last 24 Hours up to 6 AM 02/26/21 06:00 Intake Total 200 ml Balance 200 ml Tatiana Rebolledo MD Feb 26, 2021 11:02
[2021-02-26 14:00] VITALS: BP 149/64
[2021-02-26] MEDS: CIPROFLOXACIN 400 MG in IV 1 EA IV SCH (16:19)
--- NOTE | 2021-02-26 17:52 | IPNPDOC ---
Date Seen The patient was seen on 02/26/21. Progress Note SUBJECTIVE: Refusing meds intermittently, including antibiotics. Hemodialysis today. Denies chest pain, shortness of breath, fevers or chills. OBJECTIVE: PHYSICAL EXAMINATION: VS:please see below CONSTITUTIONAL: No acute distress, resting comfortably, AAO x 3, cranky EYES: PERRLA, EOM intact HENT, MOUTH: Normocephalic, atraumatic, moist mucous membranes NECK: SUPPLE, no JVD, no lymphadenopathy, no carotid bruit CV: Regular rate and rhythm, S1S2 normal, no murmurs/rubs/gallops RESPIRATORY: Clear to auscultation bilaterally, no rales/rhonchi/wheezes GI: BS positive in 4 quadrants, soft, nontender, nondistended, no rebound or guarding, no organomegaly : Deferred MUSCULOSKELETAL: Normal ROM. No cyanosis, clubbing, swelling, joint deformity, extremity edema INTEGUMENTARY: Intact, no rashes, no lesions, no erythema NEUROLOGIC: Cranial Nerves II-XII are intact, no focal deficits PSYCHIATRIC: Mood and affect are normal LABORATORY DATA: Please see below IMAGING: CT abd/pelvis: Bibasilar streaky and patchy lung disease again seen, more confluent and dense at the left lung base. Some clearing of right infrahilar disease over the past 2 months. Large left pleural effusion again seen. Bilateral adnexal cysts (each 2 cm size) again seen. Possible constipation. Possible stercoral colitis (also suggested 2 months ago). 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 2/2 to stercoral colitis? -No documented diarrhea -This has been an ongoing issue over the past several months -It appears the colitis has been seen on prior CTs but was not treated with antibiotics -Previous admissions C. difficile was ruled out and loperamide was ordered. Patient is hesitant to use loperamide -For now continue with all home meds. -NOTE: Patient is refusing meds intermittently here -C/w Zofran as needed, cipro, flagyl, probiotic -GI panel if diarrhea is seen Fall with right knee pain -History of chronic deconditioning -Patient states she went to grab something and fell losing her balance. -Right knee x-ray negative -Nutritional optimization, PT/OT Hx of CVA with residual R sided deficits - c/w plavix, ASA, statin. Chronic physical deconditioning, debility -PT: C/w home services ESRD on HD M/W/F -Patient states she missed hemodialysis yesterday -HD today - Dr. Daniel consulted DMII - ISS, FSBS AC and HS. HTN - c/w amlodipine, hydralazine, and Coreg CAD/CABG/HFrEF -c/w aspirin and carvedilol DVT px -Heparin DISPOSITION: Admitted as acute inpatient. Nephrology consulted. Full Code. VS, I&O, 24H, Fishbone Vital Signs/I&O Vital Signs Date Time Temp Pulse Resp B/P (MAP) Pulse Ox O2 Delivery O2 Flow Rate FiO2 02/26/21 16:21 143/62 02/26/21 14:00 97.6 80 17 91 Room Air 02/25/21 20:00 2.0 I&O- Last 24 Hours up to 6 AM 02/26/21 06:00 Intake Total 200 ml Balance 200 ml Laboratory Data 24H LABS Laboratory Tests 2 02/26/21 06:03: Nucleated Red Blood Cells % (auto) 0.0, Anion Gap 8, Glomerular Filtration Rate 4.8L, Calcium Level 8.6L, Total Bilirubin 0.2, Aspartate Amino Transf (AST/SGOT) 23, Alanine Aminotransferase (ALT/SGPT) 28, Alkaline Phosphatase 86, Total Protein 7.0, Albumin 3.0L, Albumin/Globulin Ratio 0.8L CBC/BMP Laboratory Tests 02/26/21 06:03 Cristiana Mg MD Feb 26, 2021 17:52
[2021-02-26 22:00] VITALS: BP 131/61
[2021-02-27] MEDS: **hydrALAZINE HCL** 25 MG TAB PO SCH ×4 (00:47→21:00)
[2021-02-27] MEDS: metroNIDAZOLE 500 MG in IV 1 EA IV SCH ×3 (00:47→18:11)
[2021-02-27 06:00] VITALS: BP 141/68
[2021-02-27] MEDS: COMBIVENT RESPIMAT 100-20MCG INHALER 4GM INH SCH ×2 (07:46→19:41)
[2021-02-27] MEDS: HEPARIN SOD (PORCINE) 5000UNITS/ML 1ML VIAL/SYRINGE SQ SCH ×2 (09:00→21:00)
[2021-02-27] MEDS: LACTOBACILLUS ACIDOPHILUS CAP (BACID) PO SCH ×2 (09:35→18:11)
[2021-02-27] MEDS: ASPIRIN 81MG ENTERIC TABLET PO SCH (09:35)
[2021-02-27] MEDS: MULTIVITAMINS/MINERALS THERAP 1 TAB PO SCH (09:36)
[2021-02-27] MEDS: DOCUSATE SODIUM 100MG CAPSULE PO SCH ×2 (09:36→21:35)
[2021-02-27] MEDS: CO-ENZYME Q10 50 MG CAP PO SCH (09:36)
[2021-02-27] MEDS: CLOPIDOGREL 75 MG TAB PO SCH (09:36)
[2021-02-27] MEDS: amLODIPine 5 MG TAB PO SCH (09:36)
[2021-02-27] MEDS: PRAVASTATIN 20 MG TAB PO SCH (09:36)
[2021-02-27] MEDS: CARVedilol 12.5 MG TAB PO SCH ×2 (09:36→21:00)
[2021-02-27 14:00] VITALS: BP 141/62
[2021-02-27] MEDS: CIPROFLOXACIN 400 MG in IV 1 EA IV SCH (16:30)
--- NOTE | 2021-02-27 19:15 | IPN ---
NEPHROLOGY PROGRESS NOTE DATE: 02/27/2021 SUBJECTIVE: Mrs. Acosta is seen this morning on her bedside. She is laying in her bed without any distress. She feels hungry and wants to eat regular food. She denies any nausea or vomiting at present. She has chronic constipation and reports no bowel movements since admission. PHYSICAL EXAMINATION: VITAL SIGNS: Temperature 97.2 degrees Fahrenheit, heart rate 80 per minute, respiratory rate 18 per minute, blood pressure 145/65 mmHg, oxygen saturation 93% on room air. HEAD: Atraumatic. NECK: Supple and without jugular venous distention (JVD) or thyroid enlargement. HEART SOUNDS: Irregular. LUNGS: Diminished breath sounds at left lower one-third. Bibasilar rales are present.. ABDOMEN: Soft and nontender. Bowel sounds are normal. EXTREMITIES: Without any cyanosis or clubbing. Left arm arteriovenous (AV) fistula is patent. NEUROLOGIC: She is at her baseline mentation. LABORATORY DATA: She did not have any new labs done today. PROBLEMS: 1. End-stage renal disease. Patient was dialyzed yesterday and her next dialysis will be scheduled for Monday. There is no emergent need for dialysis today. 2. Congestive heart failure. Her volume status is reasonably well compensated. She has chronic left pleural effusion for which she has declined a thoracentesis. We will keep trying to remove as much fluid as she can tolerate with dialysis. She is currently asymptomatic from her pleural effusion. 3. Anemia. Her anemia is chronic and stable. She will receive Aranesp 100 mcg with dialysis. 4. Colitis. She is being treated with Cipro and metronidazole. She is tolerating it. I am going to advance her diet, as she has no problems eating and denies any vomiting.
[2021-02-27] MEDS ORDERED: ACETAMINOPHEN TAB 650MG DOSE (2X325MG) PO PRN (19:40)
--- NOTE | 2021-02-27 19:43 | IPNPDOC ---
Date Seen The patient was seen on 02/27/21. Progress Note SUBJECTIVE: Discussed the findings on the CT abdomen with Dr. Odell, general surgery. He recommended bowel regimen, treating with antibiotics and monitoring patient's improvement. Patient has no acute complaints today, diet advanced. She denies chest pain, shortness of breath, fevers or chills. OBJECTIVE: PHYSICAL EXAMINATION: VS:please see below CONSTITUTIONAL: No acute distress, resting comfortably, AAO x 3, cranky EYES: PERRLA, EOM intact HENT, MOUTH: Normocephalic, atraumatic, moist mucous membranes NECK: SUPPLE, no JVD, no lymphadenopathy, no carotid bruit CV: Regular rate and rhythm, S1S2 normal, no murmurs/rubs/gallops RESPIRATORY: Clear to auscultation bilaterally, no rales/rhonchi/wheezes GI: BS positive in 4 quadrants, soft, nontender, nondistended, no rebound or guarding, no organomegaly : Deferred MUSCULOSKELETAL: Normal ROM. No cyanosis, clubbing, swelling, joint deformity, extremity edema INTEGUMENTARY: Intact, no rashes, no lesions, no erythema NEUROLOGIC: Cranial Nerves II-XII are intact, no focal deficits PSYCHIATRIC: Mood and affect are normal LABORATORY DATA: Please see below IMAGING: CT abd/pelvis: Bibasilar streaky and patchy lung disease again seen, more confluent and dense at the left lung base. Some clearing of right infrahilar disease over the past 2 months. Large left pleural effusion again seen. Bilateral adnexal cysts (each 2 cm size) again seen. Possible constipation. Possible stercoral colitis (also suggested 2 months ago). 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 2/2 to stercoral colitis? -No documented diarrhea but constipation, which is cause of stercoral colitis. -This has been an ongoing issue over the past several months -It appears the colitis has been seen on prior CTs but was not treated with antibiotics -Previous admissions C. difficile was ruled out and loperamide was ordered. Patient is hesitant to use loperamide -For now continue with all home meds, Zofran as needed, cipro, flagyl, probiotic, added bowel regimen -NOTE: Patient is refusing meds intermittently here Fall with right knee pain -History of chronic deconditioning -Patient states she went to grab something and fell losing her balance. -Right knee x-ray negative -Nutritional optimization, PT/OT Hx of CVA with residual R sided deficits - c/w plavix, ASA, statin. Chronic physical deconditioning, debility -PT: 3-5 more sessions. c/w home services ESRD on HD M/W/F -Patient states she missed hemodialysis yesterday -HD today - nephrology consulted DMII - ISS, FSBS AC and HS. HTN - c/w amlodipine, hydralazine, and Coreg CAD/CABG/HFrEF -c/w aspirin and carvedilol DVT px -Heparin DISPOSITION: Admitted as acute inpatient. Nephrology consulted. Full Code. VS, I&O, 24H, Fishbone Vital Signs/I&O Vital Signs Date Time Temp Pulse Resp B/P (MAP) Pulse Ox O2 Delivery O2 Flow Rate FiO2 02/27/21 16:31 142/62 02/27/21 14:00 98.3 72 16 97 02/27/21 06:00 Room Air 02/25/21 20:00 2.0 I&O- Last 24 Hours up to 6 AM 02/27/21 06:00 Intake Total 300 ml Output Total 2000 ml Balance -1700 ml Cristiana Mg MD Feb 27, 2021 19:43
[2021-02-27] MEDS: SENNA 8.6 MG TAB (SENOKOT) PO SCH (21:00)
[2021-02-27 22:00] VITALS: BP 119/57
[2021-02-28] MEDS ORDERED: traMADol 50 MG TAB PO PRN (00:05)
[2021-02-28] MEDS: metroNIDAZOLE 500 MG in IV 1 EA IV SCH (01:44)
[2021-02-28 06:00] VITALS: BP 134/58
[2021-02-28] MEDS: metroNIDAZOLE (FLAGYL) 500MG TABLET PO SCH ×3 (06:00→22:00)
[2021-02-28] MEDS ORDERED: MIRALAX *UNIT DOSE* 17GM PACKET PO PRN (07:15)
[2021-02-28] MEDS: COMBIVENT RESPIMAT 100-20MCG INHALER 4GM INH SCH ×2 (07:52→19:14)
[2021-02-28 08:24] LABS: BILIRUBIN,TOTAL 0.2 MG/DL (0.2-1.0); CALCIUM LEVEL 8.7 MG/DL (8.8-10.2); CREATININE FOR GFR 7.58 MG/DL (0.55-1.30); GLOMERULAR FILTRATION RATE 5.6 (>39); POTASSIUM SERUM 4.7 MEQ/L (3.5-5.1); TOTAL PROTEIN 6.4 GM/DL (6.4-8.2)
[2021-02-28] MEDS: HEPARIN SOD (PORCINE) 5000UNITS/ML 1ML VIAL/SYRINGE SQ SCH ×3 (09:00→20:44)
[2021-02-28] MEDS: DOCUSATE SODIUM 100MG CAPSULE PO SCH ×2 (09:00→20:40)
[2021-02-28] MEDS: LACTOBACILLUS ACIDOPHILUS CAP (BACID) PO SCH ×2 (10:54→17:04)
[2021-02-28] MEDS: MULTIVITAMINS/MINERALS THERAP 1 TAB PO SCH (10:54)
[2021-02-28] MEDS: CIPROFLOXACIN 500MG TABLET PO SCH (10:54)
[2021-02-28] MEDS: CARVedilol 12.5 MG TAB PO SCH ×2 (10:55→20:42)
[2021-02-28] MEDS: CLOPIDOGREL 75 MG TAB PO SCH (10:56)
[2021-02-28] MEDS: ASPIRIN 81MG ENTERIC TABLET PO SCH (10:56)
[2021-02-28] MEDS: PRAVASTATIN 20 MG TAB PO SCH (10:57)
[2021-02-28] MEDS: **hydrALAZINE HCL** 25 MG TAB PO SCH ×3 (10:57→20:42)
[2021-02-28] MEDS: amLODIPine 5 MG TAB PO SCH (10:57)
[2021-02-28] MEDS: CO-ENZYME Q10 50 MG CAP PO SCH (10:58)
[2021-02-28 11:12] LABS: HEMATOCRIT 30.9 % (36.0-47.0); HEMOGLOBIN 9.2 g/dl (12.0-15.5); MEAN CORPUSCULAR HEMOGLOBIN 27.6 pg (27.0-33.0); MEAN CORPUSCULAR HGB CONC 29.8 g/dl (32.0-36.5); MEAN CORPUSCULAR VOLUME 92.8 fl (80.0-96.0); PLATELET COUNT, AUTOMATED 186 10^3/uL (150-450); RED BLOOD COUNT 3.33 10^6/uL (4.00-5.40); WHITE BLOOD COUNT 5.6 10^3/uL (4.0-10.0)
--- NOTE | 2021-02-28 13:49 | IPN ---
PROGRESS NOTE DATE: 02/28/2021 SUBJECTIVE: Mrs. Acosta is seen this morning at her bedside. She has a complaint of pain in her left arm at the AV fistula site. She denies any fever, chills, dyspnea, or chest pain. OBJECTIVE: VITAL SIGNS: Temperature 97.2 degrees Fahrenheit, heart rate 109 per minute, and respiratory rate 18 per minute. Blood pressure 150/72 mmHg and oxygen saturation 99% on room air. HEAD: Atraumatic. NECK: Supple and without any JVD or thyroid enlargement. HEART: Sounds are irregular. LUNGS: Sounds are diminished on the left lower one-third. Bibasilar crepitations are present. ABDOMEN: Soft and nontender. Bowel sounds are present. EXTREMITIES: Without any cyanosis or clubbing. Left arm AV fistula is patent. I do not see any significant swelling at her fistula site and there is no sign of infection. LABORATORY DATA: Today's labs show WBC count 5.6, hemoglobin 9.2, hematocrit 31, platelets 186,000. Sodium 138, potassium 4.7, chloride 104, CO2 of 25, BUN 33, and creatinine 7.58, glucose 150, and calcium 8.7. PROBLEMS: 1. End-stage renal disease. The patient was dialyzed on 02/26. Her next dialysis will be scheduled for tomorrow. At this point, there is no emergent need for dialysis today. 2. Hypertension. Blood pressure is reasonably well-controlled on current antihypertensive medications. No changes are being made today. 3. Left arm pain. Most likely she had a small infiltration in her AV fistula site. There is no sign of infection. I have advised the nursing staff to apply heating pad three times a day. 4. Anemia. Her anemia is stable at present and we will continue to monitor closely. She will receive Aranesp 100 mcg once a week. 5. Colitis. The patient seems to be doing well and remains on metronidazole and Cipro. 6. Left pleural effusion. She has a chronic left pleural effusion for which she has declined any intervention. We will continue our efforts to remove fluid with dialysis more aggressively.
[2021-02-28 14:00] VITALS: BP 147/69
[2021-02-28] MEDS ORDERED: COLA100C5 PO (15:26)
[2021-02-28] MEDS ORDERED: MIRA1POW3 PO (15:26)
[2021-02-28] MEDS ORDERED: CIPR-249 PO (15:26)
[2021-02-28] MEDS ORDERED: METR-265 PO (15:26)
[2021-02-28] MEDS ORDERED: RISATAB3 PO (15:26)
--- NOTE | 2021-02-28 15:29 | IPNPDOC ---
Date Seen The patient was seen on 02/28/21. Progress Note SUBJECTIVE: No bowel movement overnight, adjusted bowel regimens of getting a dose of lactulose. Switched IV antibiotics to orals as the patient has been refusing IV. She complains of left arm pain, per nephrology this could be secondary to small infiltration of AV fistula site. She denies chest pain, shortness of breath, fevers or chills. OBJECTIVE: PHYSICAL EXAMINATION: VS:please see below CONSTITUTIONAL: No acute distress, resting comfortably, AAO x 3 EYES: PERRLA, EOM intact HENT, MOUTH: Normocephalic, atraumatic, moist mucous membranes NECK: SUPPLE, no JVD, no lymphadenopathy, no carotid bruit CV: Regular rate and rhythm, S1S2 normal, no murmurs/rubs/gallops RESPIRATORY: Clear to auscultation bilaterally, no rales/rhonchi/wheezes GI: BS positive in 4 quadrants, soft, nontender, nondistended, no rebound or guarding, no organomegaly : Deferred MUSCULOSKELETAL: Mild tenderness of left arm where fistula is present, no erythema or warmth. Normal ROM. No cyanosis, clubbing, swelling, joint deformity, extremity edema INTEGUMENTARY: Intact, no rashes, no lesions, no erythema NEUROLOGIC: Cranial Nerves II-XII are intact, no focal deficits PSYCHIATRIC: Mood and affect are normal LABORATORY DATA: Please see below IMAGING: CT abd/pelvis: Bibasilar streaky and patchy lung disease again seen, more confluent and dense at the left lung base. Some clearing of right infrahilar disease over the past 2 months. Large left pleural effusion again seen. Bilateral adnexal cysts (each 2 cm size) again seen. Possible constipation. Possible stercoral colitis (also suggested 2 months ago). 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 2/2 to stercoral colitis? , gastroparesis -No BM overnight, giving lactulose -No documented diarrhea but constipation, which is cause of stercoral colitis. -This has been an ongoing issue over the past several months -Previous admissions C. difficile was ruled out and loperamide was ordered. Rayshawn hunter is hesitant to use loperamide -For now continue with all home meds, Zofran as needed, cipro, flagyl, probiotic, bowel regimen -NOTE: Patient is refusing meds intermittently here -Discussed this case with Dr. Odell, general surgery. He recommended to continue with antibiotics, bowel regimen and follow-up with outpatient colonoscopy down the line. Left arm pain poss 2/2 to small infiltration of AV fistula site -Apply heating pad TID -Lidocaine/prilocaine cream to be applied prior to dialysis, tramadol PRN for pain -nephrology aware Fall with right knee pain -History of chronic deconditioning -Patient states she went to grab something and fell losing her balance. -Right knee x-ray negative -Nutritional optimization, PT/OT Hx of CVA with residual R sided deficits - c/w plavix, ASA, statin. Chronic physical deconditioning, debility -PT: 3-5 more sessions. c/w home services ESRD on HD M/W/F -Patient states she missed hemodialysis yesterday -HD today - nephrology consulted DMII - ISS, FSBS AC and HS. HTN - c/w amlodipine, hydralazine, and Coreg CAD/CABG/HFrEF -c/w aspirin and carvedilol DVT px -Heparin DISPOSITION: Admitted as acute inpatient. Nephrology consulted. Full Code. Will discuss d/c home after dialysis 03/01/20. VS, I&O, 24H, Fishbone Vital Signs/I&O Vital Signs Date Time Temp Pulse Resp B/P (MAP) Pulse Ox O2 Delivery O2 Flow Rate FiO2 02/28/21 10:57 150/72 02/28/21 10:55 109 02/28/21 06:00 97.2 18 99 Room Air 02/25/21 20:00 2.0 I&O- Last 24 Hours up to 6 AM 02/28/21 06:00 Intake Total 1100 ml Balance 1100 ml Laboratory Data 24H LABS Laboratory Tests 2 02/28/21 07:45: Anion Gap 9, Glomerular Filtration Rate 5.6L, Calcium Level 8.7L, Total Bilirubin 0.2, Aspartate Amino Transf (AST/SGOT) 25, Alanine Aminotransferase (ALT/SGPT) 32, Alkaline Phosphatase 86, Total Protein 6.4, Albumin 3.0L, Albumin/Globulin Ratio 0.9L 02/28/21 10:57: Nucleated Red Blood Cells % (auto) 0.0 CBC/BMP Laboratory Tests 02/28/21 07:45 02/28/21 10:57 Cristiana Mg MD Feb 28, 2021 15:29
[2021-02-28] MEDS ORDERED: LACTULOSE 20 GM/30 ML SYRUP UD PO ONE (16:00)
[2021-02-28] MEDS ORDERED: CIPROFLOXACIN 500MG TABLET PO SCH (18:00)
[2021-02-28] MEDS: SENNA 8.6 MG TAB (SENOKOT) PO SCH (20:40)
[2021-02-28 22:00] VITALS: BP 156/60
[2021-03-01] MEDS: ASPIRIN 81MG ENTERIC TABLET PO SCH (05:50)
[2021-03-01] MEDS: EMLA CREAM 5GM TUBE (LIDOCAINE/PRILOCAINE) TOP SCH (05:50)
[2021-03-01] MEDS: PRAVASTATIN 20 MG TAB PO SCH (05:50)
[2021-03-01] MEDS: metroNIDAZOLE (FLAGYL) 500MG TABLET PO SCH ×3 (05:51→21:00)
[2021-03-01] MEDS: CLOPIDOGREL 75 MG TAB PO SCH (05:51)
[2021-03-01] MEDS: CO-ENZYME Q10 50 MG CAP PO SCH (05:51)
[2021-03-01] MEDS: CIPROFLOXACIN 500MG TABLET PO SCH (05:52)
[2021-03-01] MEDS: MULTIVITAMINS/MINERALS THERAP 1 TAB PO SCH (05:52)
[2021-03-01] MEDS: amLODIPine 5 MG TAB PO SCH (05:52)
[2021-03-01] MEDS: **hydrALAZINE HCL** 25 MG TAB PO SCH ×3 (05:56→20:08)
[2021-03-01] MEDS: CARVedilol 12.5 MG TAB PO SCH ×2 (05:56→20:09)
[2021-03-01 06:00] VITALS: BP 136/64
[2021-03-01 06:14] LABS: HEMATOCRIT 31.7 % (36.0-47.0); HEMOGLOBIN 9.3 g/dl (12.0-15.5); MEAN CORPUSCULAR HEMOGLOBIN 27.4 pg (27.0-33.0); MEAN CORPUSCULAR HGB CONC 29.3 g/dl (32.0-36.5); MEAN CORPUSCULAR VOLUME 93.2 fl (80.0-96.0); PLATELET COUNT, AUTOMATED 193 10^3/uL (150-450); WHITE BLOOD COUNT 6.7 10^3/uL (4.0-10.0)
[2021-03-01 06:43] LABS: ALBUMIN 3.1 GM/DL (3.2-5.2); ALT/SGPT 30 U/L (12-78); BILIRUBIN,TOTAL 0.2 MG/DL (0.2-1.0); BLOOD UREA NITROGEN 45 MG/DL (7-18); CALCIUM LEVEL 8.5 MG/DL (8.8-10.2); CARBON DIOXIDE LEVEL 25 MEQ/L (21-32); CHLORIDE LEVEL 104 MEQ/L (98-107); GLOMERULAR FILTRATION RATE 4.7 (>39); GLUCOSE, FASTING 198 MG/DL (70-100); POTASSIUM SERUM 4.5 MEQ/L (3.5-5.1); SODIUM LEVEL 137 MEQ/L (136-145); TOTAL PROTEIN 6.9 GM/DL (6.4-8.2)
[2021-03-01] MEDS ORDERED: SODIUM CHLORIDE 0.9% 1000ML IV PRN (06:50)
[2021-03-01] MEDS ORDERED: LIDOCAINE 1% SDV 5ML VIAL SC PRN (06:50)
[2021-03-01] MEDS: COMBIVENT RESPIMAT 100-20MCG INHALER 4GM INH SCH ×2 (07:45→19:46)
[2021-03-01] MEDS: LACTOBACILLUS ACIDOPHILUS CAP (BACID) PO SCH ×2 (07:45→17:20)
[2021-03-01] MEDS: HEPARIN SOD (PORCINE) 5000UNITS/ML 1ML VIAL/SYRINGE SQ SCH ×3 (07:46→21:00)
[2021-03-01] MEDS: DOCUSATE SODIUM 100MG CAPSULE PO SCH ×2 (07:46→20:08)
[2021-03-01 11:59] LABS: C REACTIVE PROTEIN QUANTITATIV < 0.30 MG/DL (0.00-0.30)
[2021-03-01 12:00] VITALS: BP 136/61
--- NOTE | 2021-03-01 14:29 | IPN ---
NEPHROLOGY PROGRESS NOTE DATE: 03/01/2021 SUBJECTIVE: Ms. Acosta is seen this morning during hemodialysis. She is feeling about the same. Her left arm pain has improved. She denies any nausea, vomiting, dyspnea or chest pain. PHYSICAL EXAMINATION: Temperature 98.4 degrees Fahrenheit, heart rate 68 per minute and respiratory rate 16 per minute. Blood pressure 136/64 mmHg and oxygen saturation 98% on room air. Head: Atraumatic. Neck: Supple and without JVD or thyroid enlargement. Heart: Sounds are regular. Lungs: With diminished breath sounds at left base. Abdomen: Soft and nontender and bowel sounds are normal. Extremities: Without any cyanosis or clubbing. Left arm AV fistula is patent and currently being used for dialysis. Neurologically: She is awake, alert and at her baseline mentation without any focal deficit. LABORATORY DATA: Today's labs show: WBC count 6.7, hemoglobin 9.3, hematocrit 31.7. Sodium 137, potassium 4.5, CO2 25, BUN 45, creatinine 8.7. Total protein 6.9 and albumin 3.1. PROBLEMS/PLAN: 1. End-stage renal disease: Patient is being dialyzed and she is tolerating dialysis well. She will complete her 3 and 1/2 hour treatment today. 2. Congestive heart failure and pleural effusion: She has a history of chronic left sided pleural effusion. At present her volume status seems reasonably well compensated. We are trying to remove about 3 liters of fluid today and she is tolerating it well so far. 3. Anemia: Her anemia is stable and does not need urgent intervention at present. She will receive Aranesp 100 mcg once a week with hemodialysis. 4. Colitis: Patient seems to be improved and remains on Cipro and metronidazole. 5. Hypertension: Blood pressure is very well controlled on current anti-hypertensive meds. No changes are being made today. 6. Disposition: From a renal standpoint patient can be discharged to home after dialysis today if she is medically stable.
[2021-03-01] MEDS ORDERED: DEXTROSE 50% 50 ML SYRINGE IV PRN (15:20)
[2021-03-01] MEDS ORDERED: GLUCOSE 4GM CHEW TABLET PO PRN (15:20)
[2021-03-01] MEDS ORDERED: GLUCAGON INJ 1MG VIAL SC PRN (15:20)
[2021-03-01 16:00] VITALS: BP 134/54
[2021-03-01] MEDS: HumaLOG INSULIN (NovoLOG) PER UNIT SC SCH (17:20)
--- NOTE | 2021-03-01 19:14 | IPNPDOC ---
Date Seen The patient was seen on 03/01/21. Progress Note SUBJECTIVE: 1 BM overnight. Tolerating oral antibiotics. She denies chest pain, shortness of breath, fevers or chills. OBJECTIVE: PHYSICAL EXAMINATION: VS:please see below CONSTITUTIONAL: No acute distress, resting comfortably, AAO x 3 EYES: PERRLA, EOM intact HENT, MOUTH: Normocephalic, atraumatic, moist mucous membranes NECK: SUPPLE, no JVD, no lymphadenopathy, no carotid bruit CV: Regular rate and rhythm, S1S2 normal, no murmurs/rubs/gallops RESPIRATORY: Clear to auscultation bilaterally, no rales/rhonchi/wheezes GI: BS positive in 4 quadrants, soft, nontender, nondistended, no rebound or guarding, no organomegaly : Deferred MUSCULOSKELETAL: today no tenderness of left arm where fistula is present, no erythema or warmth. Normal ROM. No cyanosis, clubbing, swelling, joint de formity, extremity edema INTEGUMENTARY: Intact, no rashes, no lesions, no erythema NEUROLOGIC: Cranial Nerves II-XII are intact, no focal deficits PSYCHIATRIC: Mood and affect are normal LABORATORY DATA: Please see below IMAGING: CT abd/pelvis: Bibasilar streaky and patchy lung disease again seen, more confluent and dense at the left lung base. Some clearing of right infrahilar disease over the past 2 months. Large left pleural effusion again seen. Bilateral adnexal cysts (each 2 cm size) again seen. Possible constipation. Possible stercoral colitis (also suggested 2 months ago). 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 2/2 to stercoral colitis? , gastroparesis- improved -BM overnight, giving lactulose -intermittent bouts of diarrhea and constipation at home, constipation cause of stercoral colitis. -This has been an ongoing issue over the past several months -Previous admissions C. difficile was ruled out and loperamide was ordered. Patient is hesitant to use loperamide -For now continue with all home meds, Zofran as needed, cipro, flagyl, probiotic, bowel regimen -NOTE: Patient is refusing meds intermittently here -Discussed this case with Dr. Odell, general surgery. He recommended to continue with antibiotics, bowel regimen and follow-up with outpatient colonoscopy down the line. Left arm pain poss 2/2 to small infiltration of AV fistula site- improved -Apply heating pad TID -Lidocaine/prilocaine cream to be applied prior to dialysis, tramadol PRN for pain -nephrology aware Fall with right knee pain -History of chronic deconditioning -Patient states she went to grab something and fell losing her balance. -Right knee x-ray negative -Nutritional optimization -PT: able to complete increased ambulation today, she was also able to complete 4 MAKENNA with [facility], pt appears to be at baseline at this time and cleared for d/c home when medically appropriate. Hx of CVA with residual R sided deficits - c/w plavix, ASA, statin. Chronic physical deconditioning, debility -PT: able to complete increased ambulation today, she was also able to complete 4 MAKENNA with [facility], pt appears to be at baseline at this time and cleared for d/c home when medically appropriate. ESRD on HD M/W/F -HD today - nephrology consulted DMII - ISS, FSBS AC and HS. HTN - c/w amlodipine, hydralazine, and Coreg CAD/CABG/HFrEF -c/w aspirin and carvedilol DVT px -Heparin DISPOSITION: Admitted as acute inpatient. Nephrology consulted. Full Code. Attempted to d/c today, will do 03/02/21. VS, I&O, 24H, Fishbone Vital Signs/I&O Vital Signs Date Time Temp Pulse Resp B/P (MAP) Pulse Ox O2 Delivery O2 Flow Rate FiO2 03/01/21 17:20 134/64 03/01/21 16:00 98.3 75 17 98 Room Air 02/25/21 20:00 2.0 I&O- Last 24 Hours up to 6 AM 03/01/21 06:00 Intake Total 720 ml Balance 720 ml Laboratory Data 24H LABS Laboratory Tests 2 03/01/21 05:33: Nucleated Red Blood Cells % (auto) 0.3H, Anion Gap 8, Glomerular Filtration Rate 4.7L, Calcium Level 8.5L, Total Bilirubin 0.2, Aspartate Amino Transf (AST/SGOT) 21, Alanine Aminotransferase (ALT/SGPT) 30, Alkaline Phosphatase 100, C-Reactive Protein, Quantitative < 0.30, Total Protein 6.9, Albumin 3.1L, Albumin/Globulin Ratio 0.8L 03/01/21 17:06: Bedside Glucose (Misc Panel) 220H CBC/BMP Laboratory Tests 03/01/21 05:33 Cristiana Mg MD Mar 01, 2021 19:14
[2021-03-01] MEDS: SENNA 8.6 MG TAB (SENOKOT) PO SCH (20:07)
[2021-03-01] MEDS ORDERED: HumaLOG INSULIN (NovoLOG) PER UNIT SC SCH (21:00)
[2021-03-01 22:00] VITALS: BP 130/55
[2021-03-02 02:00] VITALS: BP 153/66
[2021-03-02] MEDS: metroNIDAZOLE (FLAGYL) 500MG TABLET PO SCH (05:26)
[2021-03-02 06:00] VITALS: BP 154/70
[2021-03-02 06:18] LABS: HEMATOCRIT 30.7 % (36.0-47.0); HEMOGLOBIN 9.1 g/dl (12.0-15.5); MEAN CORPUSCULAR HEMOGLOBIN 27.9 pg (27.0-33.0); MEAN CORPUSCULAR HGB CONC 29.6 g/dl (32.0-36.5); MEAN CORPUSCULAR VOLUME 94.2 fl (80.0-96.0); PLATELET COUNT, AUTOMATED 184 10^3/uL (150-450); RED BLOOD COUNT 3.26 10^6/uL (4.00-5.40); WHITE BLOOD COUNT 5.7 10^3/uL (4.0-10.0)
[2021-03-02 06:48] LABS: ALBUMIN 2.7 GM/DL (3.2-5.2); BILIRUBIN,TOTAL 0.3 MG/DL (0.2-1.0); CALCIUM LEVEL 8.5 MG/DL (8.8-10.2); CREATININE FOR GFR 5.83 MG/DL (0.55-1.30); GLOMERULAR FILTRATION RATE 7.5 (>39); POTASSIUM SERUM 4.6 MEQ/L (3.5-5.1); TOTAL PROTEIN 6.7 GM/DL (6.4-8.2)
[2021-03-02] MEDS: COMBIVENT RESPIMAT 100-20MCG INHALER 4GM INH SCH (07:59)
[2021-03-02] MEDS ORDERED: MIRA3350 PO (08:04)
[2021-03-02] MEDS: LACTOBACILLUS ACIDOPHILUS CAP (BACID) PO SCH (08:59)
[2021-03-02] MEDS: HumaLOG INSULIN (NovoLOG) PER UNIT SC SCH (08:59)
[2021-03-02] MEDS: PRAVASTATIN 20 MG TAB PO SCH (09:00)
[2021-03-02] MEDS: DOCUSATE SODIUM 100MG CAPSULE PO SCH (09:00)
[2021-03-02] MEDS: CO-ENZYME Q10 50 MG CAP PO SCH (09:00)
[2021-03-02] MEDS: ASPIRIN 81MG ENTERIC TABLET PO SCH (09:00)
[2021-03-02] MEDS ORDERED: MIRALAX *UNIT DOSE* 17GM PACKET PO SCH (09:00)
[2021-03-02] MEDS: HEPARIN SOD (PORCINE) 5000UNITS/ML 1ML VIAL/SYRINGE SQ SCH (09:00)
[2021-03-02] MEDS: CLOPIDOGREL 75 MG TAB PO SCH (09:01)
[2021-03-02] MEDS: MULTIVITAMINS/MINERALS THERAP 1 TAB PO SCH (09:01)
[2021-03-02 09:03] VITALS: BP 148/65
[2021-03-02] MEDS: CARVedilol 12.5 MG TAB PO SCH (09:03)
[2021-03-02] MEDS: amLODIPine 5 MG TAB PO SCH (09:03)
[2021-03-02] MEDS: **hydrALAZINE HCL** 25 MG TAB PO SCH (09:03)
--- NOTE | 2021-03-02 14:28 | IPNPDOC ---
Text Note Date of Service The patient was seen on 03/02/21. NOTE Subjective: Patient was seen and examined at bedside. She reports that he is going home and is happy about that. Patient denies having any other symptoms. She reports improvement in her nausea. Objective: General: Patient was seen at bedside she was sitting in chair, does not appear to be in any distress. Cardiac: S1 and S2 are heard, regular rate and rhythm, no murmurs appreciated. Lungs: Diminished breath sounds in her left base likely from effusion she is having. She does not want to do anything about. Abdomen: Soft, nontender, positive bowel sounds appreciated in all 4 quadrants. Extremities: AV fistula is in her left, no pedal edema appreciated. Neurological: Patient has no focal deficits. Assessment/plan: ESRD: Patient is on hemodialysis and is on TTS schedule. She needs to come to dialysis tomorrow in order to get a session. CHF with pleural effusion: Left-sided pleural effusion, she seems to be well compensated and does not have any issues. Anemia of chronic disease: Patient's hemoglobin is stable and she will receive 2 Aranesp 100 mcg once daily with dialysis. Hypertension: Well-controlled with the current antihypertensive medications we will continue the same Colic: Patient is getting Cipro and metronidazole for her colitis. She will be going home on 7 more days of Cipro and metronidazole. VS,Fishbone, I+O VS, Fishbone, I+O Laboratory Tests 03/02/21 05:25 Vital Signs Date Time Temp Pulse Resp B/P (MAP) Pulse Ox O2 Delivery O2 Flow Rate FiO2 03/02/21 09:03 148/65 03/02/21 09:03 83 03/02/21 06:00 98.8 16 99 Room Air 02/25/21 20:00 2.0 I&O- Last 24 Hours up to 6 AM 03/02/21 06:00 Intake Total 720 ml Output Total 2500 ml Balance -1780 ml GME ATTESTATION GME ATTESTATION My faculty preceptor for this patient encounter was physically present during the encounter and was fully available. All aspects of the patient interview, examination, medical decision making process, and medical care plan development were reviewed and approved by the faculty preceptor. The faculty preceptor is aware and concurs with the plan as stated in the body of this note and will attest to such by his/her cosignature. Tatiana Rebolledo MD Mar 02, 2021 14:28
[2021-03-02] MEDS ORDERED: CIPROFLOXACIN 500MG TABLET PO SCH (18:00)
--- NOTE | 2021-03-02 18:05 | DS.PDOC ---
Discharge Summary General Date of Admission Feb 25, 2021 at 07:15 Date of Discharge 03/02/21 Attending Physician: Cristiana Mg MD Discharge Summary PROCEDURES PERFORMED DURING STAY: None ADMITTING DIAGNOSES: N/V and intermittent diarrhea/constipation r/o 2/2 to medications vs. 2/2 to stercoral colitis? , gastroparesis Left arm pain poss 2/2 to small infiltration of AV fistula site Fall with right knee pain Hx of CVA with residual R sided deficits Chronic physical deconditioning, debility ESRD on HD M/W/F DMII HTN CAD s/p CABG HFrEF DISCHARGE DIAGNOSES: N/V and intermittent diarrhea/constipation r/o 2/2 to medications vs. 2/2 to stercoral colitis? , gastroparesis Left arm pain poss 2/2 to small infiltration of AV fistula site Fall with right knee pain Hx of CVA with residual R sided deficits Chronic physical deconditioning, debility ESRD on HD M/W/F DMII HTN CAD s/p CABG HFrEF COMPLICATIONS/CHIEF COMPLAINT: Generalized Weakness,Vomiting. HISTORY OF PRESENT ILLNESS: Patient is a 76-year-old female with past medical history of CAD s/p CABG, ischemic cardiomyopathy, heart failure with reduced ejection fraction, CVA with residual right hemiparesis and slurred speech, hypertension, diabetes mellitus type 2, end-stage renal disease on hemodialysis who presented to [facility] with a chief complaint of vomiting, weakness status post fall. Patient is an overall poor historian and would barely speak to me during my interview. Patient states she has been vomiting for the past 2 days and has not been able to keep anything down. Has intermittent diarrhea, nonbloody. She states she fell last evening and landed on her right knee with pain. The patient states she came to the emergency room because her symptoms did not improve. She denies chest pain, lightheadedness, dizziness, fevers, chills, recent illnesses. Was hospitalzied for questionable pneumonia and diarrhea 02/05-. She was brought to the ER to be further evaluated. HOSPITAL COURSE: In the emergency room vital signs showed 97.9, 77, 19, 139/88, 100% on 2 L nasal cannula. Patient was complaining of right knee pain. Right knee x-ray was negative. CT of the abdomen and pelvis showed large left pleural effusion, some constipation questionable colitis; however, all old findings, nothing acute. Blood work, ECG did not indicate a reason for intractable nausea. Despite pain and nausea medications the patient was still nauseous and vomiting. She was unable to ambulate. Patient was ultimately admitted for intractable nausea and vomiting, weakness status post fall to be further evaluated. Nephrology is consulted to manage end-stage renal disease and hemodialysis. During her hospitalization the patient was treated for the following: N/V and intermittent diarrhea/constipation r/o 2/2 to medications vs. 2/2 to stercoral colitis? , gastroparesis- improved -BM overnight, giving lactulose -intermittent bouts of diarrhea and constipation at home, constipation cause of stercoral colitis -This has been an ongoing issue over the past several months -Previous admissions C. difficile was ruled out and loperamide was ordered. Patient is hesitant to use loperamide -For now continue with all home meds, Zofran as needed, cipro, flagyl, probiotic, bowel regimen -NOTE: Patient is refusing meds intermittently here -Discussed this case with Dr. Odell, general surgery. He recommended to continue with antibiotics, bowel regimen and follow-up with outpatient colo noscopy down the line. Left arm pain poss 2/2 to small infiltration of AV fistula site- improved -Lidocaine/prilocaine cream to be applied prior to dialysis Fall with right knee pain -History of chronic deconditioning -Patient states she went to grab something and fell losing her balance. -Right knee x-ray negative Hx of CVA with residual R sided deficits - c/w plavix, ASA, statin. Chronic physical deconditioning, debility ESRD on HD M/W/F DMII - C/w home meds HTN - c/w amlodipine, hydralazine, and Coreg CAD/CABG/HFrEF -c/w aspirin and carvedilol DISCHARGE MEDICATIONS: Please see below. ALLERGIES: Please see below. PHYSICAL EXAMINATION ON DISCHARGE: VS:please see below CONSTITUTIONAL: No acute distress, resting comfortably, AAO x 3 EYES: PERRLA, EOM intact HENT, MOUTH: Normocephalic, atraumatic, moist mucous membranes NECK: SUPPLE, no JVD, no lymphadenopathy, no carotid bruit CV: Regular rate and rhythm, S1S2 normal, no murmurs/rubs/gallops RESPIRATORY: Clear to auscultation bilaterally, no rales/rhonchi/wheezes GI: BS positive in 4 quadrants, soft, nontender, nondistended, no rebound or guarding, no organomegaly : Deferred MUSCULOSKELETAL: today no tenderness of left arm where fistula is present, no erythema or warmth. Normal ROM. No cyanosis, clubbing, swelling, joint deformity, extremity edema INTEGUMENTARY: Intact, no rashes, no lesions, no erythema NEUROLOGIC: Cranial Nerves II-XII are intact, no focal deficits PSYCHIATRIC: Mood and affect are normal LABORATORY DATA: Please see below IMAGING: CT abd/pelvis: Bibasilar streaky and patchy lung disease again seen, more confluent and dense at the left lung base. Some clearing of right infrahilar disease over the past 2 months. Large left pleural effusion again seen. Bilateral adnexal cysts (each 2 cm size) again seen. Possible constipation. Possible stercoral colitis (also suggested 2 months ago). XR R knee: No acute findings PROGNOSIS: Good ACTIVITY: As tolerated DIET: renal DISPOSITION: Home Health Service. DISCHARGE INSTRUCTIONS ITEMS TO FOLLOWUP ON ON OUTPATIENT: 1. Follow up with your primary care provider and nephrology after discharge. 2. Discussed your case with general surgery and they are recommending continuing with antibiotics and colonoscopy down the line. Please bring discharge instructions with you to follow up . 3. With your bowels having intermittent diarrhea and constipation, would recommend a referral to gastroenterology (GI) by PCP. DISCHARGE CONDITION: Stable TIME SPENT ON DISCHARGE: 35 minutes. Vital Signs/I&Os Vital Signs Date Time Temp Pulse Resp B/P (MAP) Pulse Ox O2 Delivery O2 Flow Rate FiO2 03/02/21 09:03 148/65 03/02/21 09:03 83 03/02/21 06:00 98.8 16 99 Room Air 02/25/21 20:00 2.0 I&O- Last 24 Hours up to 6 AM 03/02/21 06:00 Intake Total 720 ml Output Total 2500 ml Balance -1780 ml Laboratory Data Labs 24H Laboratory Tests 2 03/01/21 20:40: Bedside Glucose (Misc Panel) 61L 03/02/21 05:25: Nucleated Red Blood Cells % (auto) 0.5H, Anion Gap 8, Glomerular Filtration Rate 7.5L, Calcium Level 8.5L, Total Bilirubin 0.3, Aspartate Amino Transf (AST/SGOT) 20, Alanine Aminotransferase (ALT/SGPT) 27, Alkaline Phosphatase 97, Total Prot ein 6.7, Albumin 2.7L, Albumin/Globulin Ratio 0.7L CBC/BMP Laboratory Tests 03/02/21 05:25 FSBS Laboratory Tests Test 03/01/21 20:40 Range/Units Bedside Glucose (Misc Panel) 61 83-110 MG/DL Discharge Medications Scheduled Amlodipine Besylate (Amlodipine Besylate) 5 Mg Tablet, 5 MG PO DAILY, (Reported) Ascorbic Acid (C-1000) 1,000 Mg Tablet, 1,000 MG PO DAILY, (Reported) Aspirin (Aspirin EC) 81 Mg Tablet.dr, 81 MG PO DAILY, (Reported) Calcium Carbonate/Vitamin D3 (Calcium 600-Vit D3 400 Tablet) 1 Each Tablet, 1 TAB PO DAILY, (Reported) Carvedilol (Carvedilol) 12.5 Mg Tablet, 12.5 MG PO BID, (Reported) Ciprofloxacin HCl (Cipro) 500 Mg Tablet, 500 MG PO DAILY@0600 Clopidogrel Bisulfate (Clopidogrel) 75 Mg Tablet, 75 MG PO DAILY, (Reported) Docusate Sodium (Colace) 100 Mg Capsule, 100 MG PO BID Glucosamine/Chondr Dillon A Sod (Cidaflex Tablet) 1 Each Tablet, 1 TAB PO DAILY, (R eported) Hydralazine HCl (Hydralazine HCl) 25 Mg Tablet, 25 MG PO TID, (Reported) Ipratropium/Albuterol Sulfate (Combivent Respimat 20-100 Mcg) 4 Gm Mist.inhal, 1 PUFF INH BID, (Reported) L.acidoph/L.bulg/B.bif/S.therm (Radha-Bid Caplet) 1 Each Tablet, 1 EA PO BIDWM Lidocaine/Prilocaine (Lidocaine-Prilocaine Cream) 2.5%/2.5% Cream..g., 1 APLCT TOP 3XW, (Reported) MONDAY, MONDAY AND MONDAY PRIOR TO DIALYSIS Metronidazole (Metronidazole) 500 Mg Tablet, 500 MG PO Q8H Multivitamins (Thera M Plus Tablet) 1 Each Tablet, 1 TAB PO DAILY, (Reported) Polyethylene Glycol 3350 (Miralax) 119 Gm Powder, 17 GRAM PO DAILY for constipation dissolve in water. do not take if already having > 1 bowel movements a day. Pravastatin Sodium (Pravastatin Sodium) 80 Mg Tablet, 80 MG PO DAILY, (Reported) Ubidecarenone (Coenzyme Q10) 100 Mg Tablet, 100 MG PO DAILY, (Reported) Allergies Coded Allergies: [id number] Reductase Inhibitor (Verified Adverse Reaction, Unknown, PAIN, 10/05/20) PT SAYS SHE CAN TAKE PRAVASTATIN Cristiana Mg MD Mar 02, 2021 18:05
== END 2021-03-02 11:53 | disposition home health service (06) | DRG 391 ==
LOC: M ED 22:35 → M ED INP 02-25 07:15 → M MSPAV 02-25 20:45
PROVIDERS: ADMIT Internal Medicine; ATTEND Internal Medicine
PROC: 5A1D70Z Performance of Urinary Filtration, Intermittent, Less than 6 Hours Per Day (ICD-10-PCS; principal; 2021-02-26)
DX: K52.89 Other specified noninfective gastroenteritis and colitis (principal); N18.6 End stage renal disease; I50.32 Chronic diastolic (congestive) heart failure; I69.351 Hemiplegia and hemiparesis following cerebral infarction affecting right dominant side; I13.2 Hypertensive heart and chronic kidney disease with heart failure and with stage 5 chronic kidney disease, or end stage renal disease; N25.81 Secondary hyperparathyroidism of renal origin; J90 Pleural effusion, not elsewhere classified; J47.9 Bronchiectasis, uncomplicated; R19.7 Diarrhea, unspecified; R53.81 Other malaise; I25.10 Atherosclerotic heart disease of native coronary artery without angina pectoris; K31.84 Gastroparesis; D63.1 Anemia in chronic kidney disease; I25.5 Ischemic cardiomyopathy; J84.10 Pulmonary fibrosis, unspecified; K59.03 Drug induced constipation; E78.5 Hyperlipidemia, unspecified; I69.328 Other speech and language deficits following cerebral infarction; M25.561 Pain in right knee; E11.22 Type 2 diabetes mellitus with diabetic chronic kidney disease; Z99.2 Dependence on renal dialysis; Z95.1 Presence of aortocoronary bypass graft; Z20.822 Contact with and (suspected) exposure to COVID-19; Z79.82 Long term (current) use of aspirin; Z79.02 Long term (current) use of antithrombotics/antiplatelets; Z79.899 Other long term (current) drug therapy; Z74.09 Other reduced mobility; Z88.8 Allergy status to other drugs, medicaments and biological substances; T50.905A Adverse effect of unspecified drugs, medicaments and biological substances, initial encounter

== ENCOUNTER 2021-05-02 14:30 | Inpatient (IN) | payer BC, MEDICARE ==
[~2021-05-02 14:30] MED LIST changes: +C-101TAB3 PO; +CALC600T63 PO; -CEFD1CAP8 PO; +CEFD300C41 PO; +CIDA500T2 PO; +CIPR-249 PO; +LOSA100T45 PO; -LOSA100T50 PO; +METR-265 PO; +MIRA1POW3 PO; -OMEP-221 PO; +OMEP40CA5 PO
[2021-05-02] MEDS ORDERED: PREDOPD OD (14:42)
[2021-05-02] MEDS ORDERED: ACETAMINOPHEN 325 MG TAB PO ONE (18:05)
[2021-05-02 19:15] LABS: BASO % 0.7 % (0.0-1.0); EOS # 0.1 10^3/uL (0.0-0.5); EOS % 1.6 % (0.0-3.0); HEMATOCRIT 44.4 % (36.0-47.0); HEMOGLOBIN 12.9 g/dl (12.0-15.5); LYMPH # 0.9 10^3/uL (1.5-5.0); LYMPH % 16.6 % (24.0-44.0); MEAN CORPUSCULAR HEMOGLOBIN 26.8 pg (27.0-33.0); MEAN CORPUSCULAR HGB CONC 29.1 g/dl (32.0-36.5); MEAN CORPUSCULAR VOLUME 92.3 fl (80.0-96.0); MONO # 0.5 10^3/uL (0.0-0.8); MONO % 8.3 % (2.0-8.0); NEUTROPHILS % 72.4 % (36.0-66.0); PLATELET COUNT, AUTOMATED 121 10^3/uL (150-450); RED BLOOD COUNT 4.81 10^6/uL (4.00-5.40); WHITE BLOOD COUNT 5.6 10^3/uL (4.0-10.0)
[2021-05-02 19:40] LABS: ALBUMIN 3.9 GM/DL (3.2-5.2); BILIRUBIN,DIRECT 0.2 MG/DL (0.0-0.2); BILIRUBIN,TOTAL 0.6 MG/DL (0.2-1.0); CALCIUM LEVEL 9.3 MG/DL (8.8-10.2); CREATININE FOR GFR 7.63 MG/DL (0.55-1.30); GLOMERULAR FILTRATION RATE 5.5 (>39); POTASSIUM SERUM 4.4 MEQ/L (3.5-5.1); TOTAL PROTEIN 8.2 GM/DL (6.4-8.2)
[2021-05-02] MEDS ORDERED: IPRATROPIUM 0.5MG/ALBUTEROL 2.5MG INH SOL UD 3ML (DUONEB) NEB PRN (21:55)
[2021-05-02] MEDS: metroNIDAZOLE (FLAGYL) 500MG TABLET PO SCH (22:00)
[2021-05-02 23:45] VITALS: BP 170/84
[2021-05-03 04:00] VITALS: BP 165/79
[2021-05-03] MEDS: ACETAMINOPHEN TAB 650MG DOSE (2X325MG) PO PRN ×2 (04:41→10:29)
[2021-05-03] MEDS: HEPARIN SOD (PORCINE) 5000UNITS/ML 1ML VIAL/SYRINGE SC SCH ×3 (06:00→20:22)
[2021-05-03] MEDS: metroNIDAZOLE (FLAGYL) 500MG TABLET PO SCH ×2 (06:42→13:13)
[2021-05-03] MEDS ORDERED: SODIUM CHLORIDE 0.9% 1000ML IV PRN (07:55)
[2021-05-03] MEDS ORDERED: LIDOCAINE 1% SDV 5ML VIAL SC PRN (07:55)
[2021-05-03] MEDS: MULTIVITAMINS/MINERALS THERAP 1 TAB PO SCH (09:00)
[2021-05-03] MEDS: CARVedilol 12.5 MG TAB PO SCH ×2 (09:00→20:38)
[2021-05-03] MEDS ORDERED: amLODIPine 5 MG TAB PO SCH (09:00)
[2021-05-03 10:07] LABS: BASO % 0.8 % (0.0-1.0); EOS # 0.1 10^3/uL (0.0-0.5); HEMATOCRIT 37.2 % (36.0-47.0); LYMPH # 0.9 10^3/uL (1.5-5.0); LYMPH % 18.6 % (24.0-44.0); MEAN CORPUSCULAR HGB CONC 29.6 g/dl (32.0-36.5); MEAN CORPUSCULAR VOLUME 91.2 fl (80.0-96.0); MONO # 0.5 10^3/uL (0.0-0.8); MONO % 10.2 % (2.0-8.0); NEUTROPHILS # 3.4 10^3/uL (1.5-8.5); PLATELET COUNT, AUTOMATED 108 10^3/uL (150-450); RED BLOOD COUNT 4.08 10^6/uL (4.00-5.40)
[2021-05-03 10:48] LABS: ALBUMIN 3.2 GM/DL (3.2-5.2); BILIRUBIN,TOTAL 0.5 MG/DL (0.2-1.0); CALCIUM LEVEL 9.1 MG/DL (8.8-10.2); CREATININE FOR GFR 8.21 MG/DL (0.55-1.30); GLOMERULAR FILTRATION RATE 5.1 (>39); MAGNESIUM LEVEL 2.5 MG/DL (1.8-2.4); PHOSPHORUS LEVEL 3.8 MG/DL (2.5-4.9); POTASSIUM SERUM 4.6 MEQ/L (3.5-5.1); TOTAL PROTEIN 6.4 GM/DL (6.4-8.2)
[2021-05-03] MEDS ORDERED: MED REC COMMENT (10:54)
[2021-05-03] MEDS ORDERED: HOME MED LIST COMPLETE! XX SCH (10:55)
[2021-05-03] MEDS: prednisoLONE ACET 1% OPHTH SUSP 5ML OD SCH ×3 (13:10→20:38)
[2021-05-03] MEDS: **hydrALAZINE HCL** 25 MG TAB PO SCH (13:11)
[2021-05-03] MEDS: CO-ENZYME Q10 50 MG CAP PO SCH (13:13)
[2021-05-03] MEDS: ASPIRIN 81MG ENTERIC TABLET PO SCH (13:13)
[2021-05-03 16:00] VITALS: BP 142/63
[2021-05-03 20:00] VITALS: BP 176/82
[2021-05-04] MEDS: metroNIDAZOLE (FLAGYL) 500MG TABLET PO SCH ×4 (00:52→20:49)
[2021-05-04] MEDS: **hydrALAZINE HCL** 25 MG TAB PO SCH ×2 (00:53→05:36)
[2021-05-04] MEDS: HEPARIN SOD (PORCINE) 5000UNITS/ML 1ML VIAL/SYRINGE SC SCH ×3 (05:01→20:44)
[2021-05-04 05:53] LABS: HEMATOCRIT 36.6 % (36.0-47.0); HEMOGLOBIN 11.1 g/dl (12.0-15.5); MEAN CORPUSCULAR HEMOGLOBIN 27.3 pg (27.0-33.0); MEAN CORPUSCULAR HGB CONC 30.3 g/dl (32.0-36.5); MEAN CORPUSCULAR VOLUME 89.9 fl (80.0-96.0); PLATELET COUNT, AUTOMATED 105 10^3/uL (150-450); RED BLOOD COUNT 4.07 10^6/uL (4.00-5.40)
[2021-05-04] MEDS ORDERED: SODIUM CHLORIDE 0.9% 1000ML IV PRN (06:00)
[2021-05-04] MEDS ORDERED: LIDOCAINE 1% SDV 5ML VIAL SC PRN (06:00)
[2021-05-04 06:18] LABS: ALBUMIN 2.9 GM/DL (3.2-5.2); BILIRUBIN,TOTAL 0.4 MG/DL (0.2-1.0); CALCIUM LEVEL 8.5 MG/DL (8.8-10.2); CREATININE FOR GFR 6.02 MG/DL (0.55-1.30); GLOMERULAR FILTRATION RATE 7.2 (>39); MAGNESIUM LEVEL 2.2 MG/DL (1.8-2.4); POTASSIUM SERUM 4.3 MEQ/L (3.5-5.1); TOTAL PROTEIN 6.5 GM/DL (6.4-8.2)
[2021-05-04 08:00] VITALS: BP 150/63
[2021-05-04] MEDS ORDERED: EMLA CREAM 5GM TUBE (LIDOCAINE/PRILOCAINE) TOP SCH (09:05)
[2021-05-04] MEDS: CARVedilol 12.5 MG TAB PO SCH ×2 (09:48→20:49)
[2021-05-04] MEDS: CO-ENZYME Q10 50 MG CAP PO SCH (09:49)
[2021-05-04] MEDS: guaiFENesin 200 MG TAB PO PRN (09:49)
[2021-05-04] MEDS: prednisoLONE ACET 1% OPHTH SUSP 5ML OD SCH ×4 (09:49→20:49)
[2021-05-04] MEDS: MULTIVITAMINS/MINERALS THERAP 1 TAB PO SCH (09:49)
[2021-05-04] MEDS: ASPIRIN 81MG ENTERIC TABLET PO SCH (09:49)
[2021-05-04 16:40] VITALS: BP 151/72
[2021-05-04] MEDS ORDERED: DEXTROSE 50% 50 ML SYRINGE IV PRN (17:05)
[2021-05-04] MEDS ORDERED: GLUCAGON INJ 1MG VIAL SC PRN (17:05)
[2021-05-04] MEDS ORDERED: GLUCOSE 4GM CHEW TABLET PO PRN (17:05)
[2021-05-04] MEDS: HumaLOG INSULIN (NovoLOG) PER UNIT SC SCH (17:30)
[2021-05-04 20:00] VITALS: BP 139/64
[2021-05-05] VITALS: BP 162/74
[2021-05-05] MEDS: guaiFENesin 200 MG TAB PO PRN ×2 (02:39→21:03)
[2021-05-05] MEDS: HEPARIN SOD (PORCINE) 5000UNITS/ML 1ML VIAL/SYRINGE SC SCH ×4 (05:34→21:07)
[2021-05-05 05:42] LABS: HEMATOCRIT 37.2 % (36.0-47.0); HEMOGLOBIN 11.4 g/dl (12.0-15.5); MEAN CORPUSCULAR HGB CONC 30.6 g/dl (32.0-36.5); MEAN CORPUSCULAR VOLUME 88.2 fl (80.0-96.0); PLATELET COUNT, AUTOMATED 109 10^3/uL (150-450); RED BLOOD COUNT 4.22 10^6/uL (4.00-5.40)
[2021-05-05] MEDS: metroNIDAZOLE (FLAGYL) 500MG TABLET PO SCH ×3 (05:58→21:03)
[2021-05-05] MEDS ORDERED: SODIUM CHLORIDE 0.9% 1000ML IV PRN (06:00)
[2021-05-05] MEDS ORDERED: LIDOCAINE 1% SDV 5ML VIAL SC PRN (06:00)
[2021-05-05 06:06] LABS: BILIRUBIN,TOTAL 0.4 MG/DL (0.2-1.0); CALCIUM LEVEL 8.5 MG/DL (8.8-10.2); CREATININE FOR GFR 6.57 MG/DL (0.55-1.30); GLOMERULAR FILTRATION RATE 6.6 (>39); MAGNESIUM LEVEL 2.1 MG/DL (1.8-2.4); POTASSIUM SERUM 4.5 MEQ/L (3.5-5.1)
[2021-05-05] MEDS: HumaLOG INSULIN (NovoLOG) PER UNIT SC SCH ×3 (07:40→17:02)
[2021-05-05] MEDS: CARVedilol 12.5 MG TAB PO SCH ×2 (07:43→21:03)
[2021-05-05] MEDS: ASPIRIN 81MG ENTERIC TABLET PO SCH (07:43)
[2021-05-05] MEDS: MULTIVITAMINS/MINERALS THERAP 1 TAB PO SCH (07:44)
[2021-05-05] MEDS: prednisoLONE ACET 1% OPHTH SUSP 5ML OD SCH ×4 (07:45→21:00)
[2021-05-05] MEDS: CO-ENZYME Q10 50 MG CAP PO SCH (07:45)
[2021-05-05 12:15] VITALS: BP 140/69
[2021-05-05 18:27] VITALS: BP 140/69
[2021-05-05 18:32] VITALS: BP 123/50
[2021-05-05] MEDS: ACETAMINOPHEN TAB 650MG DOSE (2X325MG) PO PRN (21:56)
[2021-05-05 22:00] VITALS: BP 145/64
[2021-05-05] MEDS ORDERED: carisoprodoL 350 MG TAB PO ONE (22:25)
[2021-05-06] MEDS: metroNIDAZOLE (FLAGYL) 500MG TABLET PO SCH ×3 (05:56→21:53)
[2021-05-06] MEDS: HEPARIN SOD (PORCINE) 5000UNITS/ML 1ML VIAL/SYRINGE SC SCH ×3 (05:57→21:56)
[2021-05-06 06:00] VITALS: BP 140/64
[2021-05-06] MEDS: HumaLOG INSULIN (NovoLOG) PER UNIT SC SCH ×4 (07:30→16:48)
[2021-05-06] MEDS: CO-ENZYME Q10 50 MG CAP PO SCH (08:00)
[2021-05-06] MEDS: CARVedilol 12.5 MG TAB PO SCH ×2 (08:00→21:55)
[2021-05-06] MEDS: ASPIRIN 81MG ENTERIC TABLET PO SCH (08:00)
[2021-05-06] MEDS: MULTIVITAMINS/MINERALS THERAP 1 TAB PO SCH (08:00)
[2021-05-06] MEDS: guaiFENesin 200 MG TAB PO PRN (08:07)
[2021-05-06] MEDS: prednisoLONE ACET 1% OPHTH SUSP 5ML OD SCH ×4 (08:07→21:55)
[2021-05-06 09:55] LABS: HEMATOCRIT 34.7 % (36.0-47.0); HEMOGLOBIN 10.6 g/dl (12.0-15.5); MEAN CORPUSCULAR HEMOGLOBIN 27.1 pg (27.0-33.0); MEAN CORPUSCULAR HGB CONC 30.5 g/dl (32.0-36.5); MEAN CORPUSCULAR VOLUME 88.7 fl (80.0-96.0); PLATELET COUNT, AUTOMATED 108 10^3/uL (150-450); RED BLOOD COUNT 3.91 10^6/uL (4.00-5.40); WHITE BLOOD COUNT 4.3 10^3/uL (4.0-10.0)
[2021-05-06 10:27] LABS: BILIRUBIN,TOTAL 0.4 MG/DL (0.2-1.0); CALCIUM LEVEL 8.5 MG/DL (8.8-10.2); CREATININE FOR GFR 5.43 MG/DL (0.55-1.30); GLOMERULAR FILTRATION RATE 8.2 (>39); MAGNESIUM LEVEL 2.1 MG/DL (1.8-2.4); POTASSIUM SERUM 4.1 MEQ/L (3.5-5.1); TOTAL PROTEIN 5.8 GM/DL (6.4-8.2)
[2021-05-06] MEDS ORDERED: SODIUM CHLORIDE 0.9% 1000ML IV PRN (11:35)
[2021-05-06] MEDS ORDERED: LIDOCAINE 1% SDV 5ML VIAL SC PRN (11:35)
[2021-05-06 14:00] VITALS: BP 140/66
[2021-05-06 22:00] VITALS: BP 141/66
[2021-05-07] MEDS: HEPARIN SOD (PORCINE) 5000UNITS/ML 1ML VIAL/SYRINGE SC SCH ×4 (05:18→21:18)
[2021-05-07] MEDS: metroNIDAZOLE (FLAGYL) 500MG TABLET PO SCH ×6 (05:30→21:18)
[2021-05-07] MEDS: MULTIVITAMINS/MINERALS THERAP 1 TAB PO SCH (05:30)
[2021-05-07] MEDS: ASPIRIN 81MG ENTERIC TABLET PO SCH (05:30)
[2021-05-07] MEDS: CARVedilol 12.5 MG TAB PO SCH ×2 (05:35→21:15)
[2021-05-07] MEDS: prednisoLONE ACET 1% OPHTH SUSP 5ML OD SCH ×4 (05:35→21:16)
[2021-05-07] MEDS: CO-ENZYME Q10 50 MG CAP PO SCH (05:35)
[2021-05-07 06:00] VITALS: BP 135/65
[2021-05-07] MEDS ORDERED: SODIUM CHLORIDE 0.9% 1000ML IV PRN (06:00)
[2021-05-07 06:56] LABS: HEMATOCRIT 35.9 % (36.0-47.0); HEMOGLOBIN 11.1 g/dl (12.0-15.5); MEAN CORPUSCULAR HEMOGLOBIN 26.9 pg (27.0-33.0); MEAN CORPUSCULAR HGB CONC 30.9 g/dl (32.0-36.5); MEAN CORPUSCULAR VOLUME 87.1 fl (80.0-96.0); PLATELET COUNT, AUTOMATED 117 10^3/uL (150-450); RED BLOOD COUNT 4.12 10^6/uL (4.00-5.40); WHITE BLOOD COUNT 5.5 10^3/uL (4.0-10.0)
[2021-05-07 07:21] LABS: ALBUMIN 3.2 GM/DL (3.2-5.2); BILIRUBIN,TOTAL 0.4 MG/DL (0.2-1.0); CALCIUM LEVEL 8.7 MG/DL (8.8-10.2); CREATININE FOR GFR 6.98 MG/DL (0.55-1.30); GLOMERULAR FILTRATION RATE 6.1 (>39); MAGNESIUM LEVEL 2.3 MG/DL (1.8-2.4); POTASSIUM SERUM 5.2 MEQ/L (3.5-5.1); TOTAL PROTEIN 6.6 GM/DL (6.4-8.2)
[2021-05-07] MEDS: HumaLOG INSULIN (NovoLOG) PER UNIT SC SCH ×3 (07:30→17:04)
[2021-05-07 14:00] VITALS: BP 126/54
[2021-05-08] MEDS: HEPARIN SOD (PORCINE) 5000UNITS/ML 1ML VIAL/SYRINGE SC SCH ×3 (05:24→21:23)
[2021-05-08] MEDS: metroNIDAZOLE (FLAGYL) 500MG TABLET PO SCH ×3 (05:24→21:23)
[2021-05-08 06:00] VITALS: BP 127/56
[2021-05-08] MEDS: HumaLOG INSULIN (NovoLOG) PER UNIT SC SCH ×3 (08:11→17:30)
[2021-05-08] MEDS: prednisoLONE ACET 1% OPHTH SUSP 5ML OD SCH ×4 (08:12→20:26)
[2021-05-08] MEDS: CARVedilol 12.5 MG TAB PO SCH ×2 (08:12→20:26)
[2021-05-08] MEDS: MULTIVITAMINS/MINERALS THERAP 1 TAB PO SCH (08:12)
[2021-05-08] MEDS: CO-ENZYME Q10 50 MG CAP PO SCH (08:12)
[2021-05-08] MEDS: ASPIRIN 81MG ENTERIC TABLET PO SCH (08:12)
[2021-05-08] MEDS: guaiFENesin 200 MG TAB PO PRN ×2 (10:48→20:25)
[2021-05-09] MEDS: HEPARIN SOD (PORCINE) 5000UNITS/ML 1ML VIAL/SYRINGE SC SCH ×3 (05:38→21:01)
[2021-05-09] MEDS: metroNIDAZOLE (FLAGYL) 500MG TABLET PO SCH ×2 (05:38→13:28)
[2021-05-09 06:00] VITALS: BP 158/71
[2021-05-09 07:37] LABS: HEMATOCRIT 34.3 % (36.0-47.0); HEMOGLOBIN 10.5 g/dl (12.0-15.5); MEAN CORPUSCULAR HEMOGLOBIN 26.5 pg (27.0-33.0); MEAN CORPUSCULAR HGB CONC 30.6 g/dl (32.0-36.5); MEAN CORPUSCULAR VOLUME 86.6 fl (80.0-96.0); PLATELET COUNT, AUTOMATED 113 10^3/uL (150-450); RED BLOOD COUNT 3.96 10^6/uL (4.00-5.40); WHITE BLOOD COUNT 6.1 10^3/uL (4.0-10.0)
[2021-05-09 07:50] LABS: ALBUMIN 3.2 GM/DL (3.2-5.2); BILIRUBIN,TOTAL 0.4 MG/DL (0.2-1.0); CALCIUM LEVEL 8.6 MG/DL (8.8-10.2); CREATININE FOR GFR 7.14 MG/DL (0.55-1.30); MAGNESIUM LEVEL 2.1 MG/DL (1.8-2.4); TOTAL PROTEIN 6.2 GM/DL (6.4-8.2)
[2021-05-09] MEDS: MULTIVITAMINS/MINERALS THERAP 1 TAB PO SCH (08:08)
[2021-05-09] MEDS: CO-ENZYME Q10 50 MG CAP PO SCH (08:08)
[2021-05-09] MEDS: ASPIRIN 81MG ENTERIC TABLET PO SCH (08:08)
[2021-05-09] MEDS: HumaLOG INSULIN (NovoLOG) PER UNIT SC SCH ×3 (08:08→17:16)
[2021-05-09] MEDS: prednisoLONE ACET 1% OPHTH SUSP 5ML OD SCH ×4 (08:11→20:47)
[2021-05-09] MEDS: CARVedilol 12.5 MG TAB PO SCH ×2 (08:21→20:48)
[2021-05-09] MEDS: guaiFENesin 200 MG TAB PO PRN (10:15)
[2021-05-09] MEDS: BENZONATATE 100MG CAPSULE PO SCH ×2 (17:16→20:47)
[2021-05-10] MEDS: HEPARIN SOD (PORCINE) 5000UNITS/ML 1ML VIAL/SYRINGE SC SCH ×3 (05:04→21:31)
[2021-05-10 06:00] VITALS: BP 111/60
[2021-05-10] MEDS: ASPIRIN 81MG ENTERIC TABLET PO SCH (06:33)
[2021-05-10] MEDS: BENZONATATE 100MG CAPSULE PO SCH ×3 (06:33→23:09)
[2021-05-10] MEDS: CARVedilol 12.5 MG TAB PO SCH ×2 (06:34→23:08)
[2021-05-10] MEDS: CO-ENZYME Q10 50 MG CAP PO SCH (06:34)
[2021-05-10] MEDS: MULTIVITAMINS/MINERALS THERAP 1 TAB PO SCH (06:34)
[2021-05-10] MEDS: prednisoLONE ACET 1% OPHTH SUSP 5ML OD SCH ×4 (06:34→23:09)
[2021-05-10] MEDS ORDERED: LIDOCAINE 1% SDV 5ML VIAL SC PRN (07:20)
[2021-05-10] MEDS ORDERED: SODIUM CHLORIDE 0.9% 1000ML IV PRN (07:20)
[2021-05-10] MEDS: HumaLOG INSULIN (NovoLOG) PER UNIT SC SCH ×3 (09:40→17:30)
[2021-05-10 13:01] LABS: HEMOGLOBIN 10.4 g/dl (12.0-15.5); MEAN CORPUSCULAR HEMOGLOBIN 27.3 pg (27.0-33.0); MEAN CORPUSCULAR HGB CONC 31.5 g/dl (32.0-36.5); MEAN CORPUSCULAR VOLUME 86.6 fl (80.0-96.0); PLATELET COUNT, AUTOMATED 113 10^3/uL (150-450); RED BLOOD COUNT 3.81 10^6/uL (4.00-5.40); WHITE BLOOD COUNT 5.6 10^3/uL (4.0-10.0)
[2021-05-10 13:32] LABS: BILIRUBIN,TOTAL 0.5 MG/DL (0.2-1.0); CALCIUM LEVEL 8.7 MG/DL (8.8-10.2); CREATININE FOR GFR 8.85 MG/DL (0.55-1.30); GLOMERULAR FILTRATION RATE 4.6 (>39); MAGNESIUM LEVEL 2.4 MG/DL (1.8-2.4); POTASSIUM SERUM 5.2 MEQ/L (3.5-5.1); TOTAL PROTEIN 6.8 GM/DL (6.4-8.2)
[2021-05-11] MEDS: HEPARIN SOD (PORCINE) 5000UNITS/ML 1ML VIAL/SYRINGE SC SCH ×2 (05:34→13:20)
[2021-05-11 05:43] VITALS: BP 123/47
[2021-05-11 08:22] VITALS: BP 140/64
[2021-05-11 08:23] VITALS: BP 140/64
[2021-05-11] MEDS: CO-ENZYME Q10 50 MG CAP PO SCH (08:23)
[2021-05-11] MEDS: CARVedilol 12.5 MG TAB PO SCH (08:23)
[2021-05-11] MEDS: HumaLOG INSULIN (NovoLOG) PER UNIT SC SCH ×2 (08:23→11:59)
[2021-05-11] MEDS: prednisoLONE ACET 1% OPHTH SUSP 5ML OD SCH ×3 (08:23→16:07)
[2021-05-11] MEDS: BENZONATATE 100MG CAPSULE PO SCH ×2 (08:23→15:50)
[2021-05-11] MEDS: MULTIVITAMINS/MINERALS THERAP 1 TAB PO SCH (08:23)
[2021-05-11] MEDS: ASPIRIN 81MG ENTERIC TABLET PO SCH (08:23)
[2021-05-11 09:50] LABS: BASO % 0.4 % (0.0-1.0); EOS # 0.1 10^3/uL (0.0-0.5); HEMATOCRIT 35.6 % (36.0-47.0); LYMPH # 0.7 10^3/uL (1.5-5.0); MEAN CORPUSCULAR HEMOGLOBIN 27.1 pg (27.0-33.0); MEAN CORPUSCULAR HGB CONC 30.9 g/dl (32.0-36.5); MEAN CORPUSCULAR VOLUME 87.7 fl (80.0-96.0); MONO # 0.6 10^3/uL (0.0-0.8); NEUTROPHILS # 3.2 10^3/uL (1.5-8.5); NEUTROPHILS % 70.2 % (36.0-66.0); PLATELET COUNT, AUTOMATED 118 10^3/uL (150-450); RED BLOOD COUNT 4.06 10^6/uL (4.00-5.40); WHITE BLOOD COUNT 4.6 10^3/uL (4.0-10.0)
[2021-05-11 10:13] LABS: ALBUMIN 3.4 GM/DL (3.2-5.2); BILIRUBIN,TOTAL 0.5 MG/DL (0.2-1.0); CALCIUM LEVEL 8.9 MG/DL (8.8-10.2); CREATININE FOR GFR 6.25 MG/DL (0.55-1.30); GLOMERULAR FILTRATION RATE 6.9 (>39); MAGNESIUM LEVEL 2.2 MG/DL (1.8-2.4); POTASSIUM SERUM 5.2 MEQ/L (3.5-5.1); TOTAL PROTEIN 6.8 GM/DL (6.4-8.2)
[2021-05-11] MEDS ORDERED: ONDANSETRON 4 MG TAB PO PRN (10:35)
[2021-05-11] MEDS: ACETAMINOPHEN TAB 650MG DOSE (2X325MG) PO PRN (16:07)
[2021-05-11] MEDS ORDERED: PRED20TA PO (16:17)
[2021-05-11] MEDS ORDERED: DOXY-350 PO (16:17)
[2021-05-11] MEDS ORDERED: VENTAER INH (16:17)
[2021-05-11] MEDS ORDERED: ONDA-83 PO (16:17)
== END 2021-05-11 17:35 | disposition home health service (06) | DRG 291 ==
LOC: M ED 14:30 → M ED INP 21:37 → ENRESERV 22:27 → M PCU 23:51 → M MS5PR 05-05 18:13
PROVIDERS: ADMIT Family Medicine; ATTEND Family Medicine
PROC: 5A1D70Z Performance of Urinary Filtration, Intermittent, Less than 6 Hours Per Day (ICD-10-PCS; principal; 2021-05-03)
DX: I13.2 Hypertensive heart and chronic kidney disease with heart failure and with stage 5 chronic kidney disease, or end stage renal disease (principal); N18.6 End stage renal disease; I50.23 Acute on chronic systolic (congestive) heart failure; I47.2 Ventricular tachycardia; I69.351 Hemiplegia and hemiparesis following cerebral infarction affecting right dominant side; Z99.2 Dependence on renal dialysis; I25.10 Atherosclerotic heart disease of native coronary artery without angina pectoris; Z95.5 Presence of coronary angioplasty implant and graft; J44.9 Chronic obstructive pulmonary disease, unspecified; Z90.79 Acquired absence of other genital organ(s); Z20.822 Contact with and (suspected) exposure to COVID-19; N88.8 Other specified noninflammatory disorders of cervix uteri; Z79.2 Long term (current) use of antibiotics; Z79.82 Long term (current) use of aspirin; Z79.899 Other long term (current) drug therapy; Z88.8 Allergy status to other drugs, medicaments and biological substances; R74.01 Elevation of levels of liver transaminase levels; D64.9 Anemia, unspecified; Z66 Do not resuscitate; E11.22 Type 2 diabetes mellitus with diabetic chronic kidney disease; Z72.3 Lack of physical exercise; Z74.09 Other reduced mobility; E87.5 Hyperkalemia; R11.0 Nausea

== ENCOUNTER 2021-06-15 11:48 | Inpatient (IN) | payer MEDICARE, BC ==
[~2021-06-15] VITALS: Ht 165.1 cm; Wt 59.0 kg
[~2021-06-15 11:48] MED LIST changes: -ASPI-286 PO; +ONDA-83 PO; +PRED20TA PO; +PREDOPD OD; +SM C81CH2 PO; +VENTAER INH
[2021-06-15 15:45] LABS: RSV AMPLIFICATION NEGATIVE (NEGATIVE)
[2021-06-15 16:10] LABS: BASO % 0.5 % (0.0-1.0); EOS # 0.1 10^3/uL (0.0-0.5); EOS % 0.9 % (0.0-3.0); HEMATOCRIT 36.6 % (36.0-47.0); HEMOGLOBIN 10.9 g/dl (12.0-15.5); LYMPH # 0.9 10^3/uL (1.5-5.0); LYMPH % 13.7 % (24.0-44.0); MEAN CORPUSCULAR HGB CONC 29.8 g/dl (32.0-36.5); MEAN CORPUSCULAR VOLUME 90.6 fl (80.0-96.0); MONO # 0.4 10^3/uL (0.0-0.8); MONO % 6.8 % (2.0-8.0); NEUTROPHILS # 4.9 10^3/uL (1.5-8.5); NEUTROPHILS % 77.5 % (36.0-66.0); PLATELET COUNT, AUTOMATED 158 10^3/uL (150-450); RED BLOOD COUNT 4.04 10^6/uL (4.00-5.40); WHITE BLOOD COUNT 6.3 10^3/uL (4.0-10.0)
[2021-06-15 16:39] LABS: BILIRUBIN,DIRECT 0.2 MG/DL (0.0-0.2); BILIRUBIN,TOTAL 0.5 MG/DL (0.2-1.0); CALCIUM LEVEL 9.3 MG/DL (8.8-10.2); CREATININE FOR GFR 6.57 MG/DL (0.55-1.30); FREE T4 1.07 NG/DL (0.76-1.46); GLOMERULAR FILTRATION RATE 6.6 (>39); POTASSIUM SERUM 4.8 MEQ/L (3.5-5.1); THYROID STIMULATING HORMONE 3.21 uIU/ML (0.358-3.740); TOTAL PROTEIN 7.3 GM/DL (6.4-8.2)
[2021-06-15 17:05] LABS: INR 1.15; PROTHROMBIN TIME 15.1 SECONDS (12.7-14.5)
[2021-06-15 17:06] LABS: PARTIAL THROMBOPLASTIN TIME 39.2 SECONDS (25.9-37.0)
[2021-06-15] MEDS ORDERED: PRED20TA PO (17:52)
[2021-06-15] MEDS ORDERED: RENV2TAB PO (17:52)
[2021-06-15] MEDS ORDERED: DOXY100T PO (17:52)
[2021-06-15] MEDS ORDERED: RENATAB6 PO (17:52)
[2021-06-15] MEDS ORDERED: GLUCTAB31 PO (17:52)
[2021-06-15] MEDS ORDERED: HYDR-3910 PO (17:52)
[2021-06-15] MEDS ORDERED: HOME MED LIST COMPLETE! XX SCH (17:55)
[2021-06-15] MEDS ORDERED: GLUCAGON INJ 1MG VIAL SC PRN (18:00)
[2021-06-15] MEDS ORDERED: GLUCOSE 4GM CHEW TABLET PO PRN (18:00)
[2021-06-15] MEDS ORDERED: DEXTROSE 50% 50 ML SYRINGE IV PRN (18:00)
[2021-06-15] MEDS: (RENVELA) SEVELAMER **CARBONate** 800 MG TAB PO SCH (18:57)
[2021-06-15 19:08] VITALS: BP 163/96
[2021-06-15] MEDS: COMBIVENT RESPIMAT 100-20MCG INHALER 4GM INH SCH (19:24)
[2021-06-15] MEDS: HumaLOG INSULIN (NovoLOG) PER UNIT SC SCH (21:00)
[2021-06-15] MEDS: **hydrALAZINE HCL** 25 MG TAB PO SCH (21:42)
[2021-06-15] MEDS: CARVedilol 12.5 MG TAB PO SCH (21:43)
[2021-06-15] MEDS: HEPARIN SOD (PORCINE) 5000UNITS/ML 1ML VIAL/SYRINGE SQ SCH (21:48)
[2021-06-16] MEDS: CEPACOL LOZENGE PO PRN ×2 (03:57→06:39)
[2021-06-16 06:00] VITALS: BP 121/68
[2021-06-16] MEDS: HEPARIN SOD (PORCINE) 5000UNITS/ML 1ML VIAL/SYRINGE SQ SCH ×4 (06:00→22:00)
[2021-06-16] MEDS: CARVedilol 12.5 MG TAB PO SCH ×2 (06:40→07:56)
[2021-06-16] MEDS: HumaLOG INSULIN (NovoLOG) PER UNIT SC SCH ×4 (07:30→21:00)
[2021-06-16] MEDS: COMBIVENT RESPIMAT 100-20MCG INHALER 4GM INH SCH ×2 (07:45→19:31)
[2021-06-16] MEDS: (RENVELA) SEVELAMER **CARBONate** 800 MG TAB PO SCH ×3 (07:55→17:38)
[2021-06-16] MEDS: MULTIVITAMINS/MINERALS THERAP 1 TAB PO SCH (07:55)
[2021-06-16] MEDS: ASPIRIN 81MG ENTERIC TABLET PO SCH (07:55)
[2021-06-16] MEDS: **hydrALAZINE HCL** 25 MG TAB PO SCH ×3 (07:56→22:03)
[2021-06-16] MEDS: amLODIPine 5 MG TAB PO SCH (07:56)
[2021-06-16] MEDS ORDERED: LIDOCAINE 1% SDV 5ML VIAL SC PRN (08:00)
[2021-06-16] MEDS ORDERED: SODIUM CHLORIDE 0.9% 1000ML IV PRN (08:00)
[2021-06-16] MEDS: CO-ENZYME Q10 50 MG CAP PO SCH (08:06)
[2021-06-16 08:46] VITALS: BP 128/68
[2021-06-16] MEDS: EMLA CREAM 5GM TUBE (LIDOCAINE/PRILOCAINE) TOP SCH (09:00)
[2021-06-16] MEDS ORDERED: EMLA CREAM 5GM TUBE (LIDOCAINE/PRILOCAINE) TOP SCH (10:40)
[2021-06-16 11:51] LABS: HEMATOCRIT 31.2 % (36.0-47.0); HEMOGLOBIN 9.5 g/dl (12.0-15.5); MEAN CORPUSCULAR HEMOGLOBIN 26.5 pg (27.0-33.0); MEAN CORPUSCULAR HGB CONC 30.4 g/dl (32.0-36.5); MEAN CORPUSCULAR VOLUME 87.2 fl (80.0-96.0); PLATELET COUNT, AUTOMATED 141 10^3/uL (150-450); RED BLOOD COUNT 3.58 10^6/uL (4.00-5.40); WHITE BLOOD COUNT 5.7 10^3/uL (4.0-10.0)
[2021-06-16 12:13] LABS: ALBUMIN 2.8 GM/DL (3.2-5.2); BILIRUBIN,TOTAL 0.4 MG/DL (0.2-1.0); CALCIUM LEVEL 9.2 MG/DL (8.8-10.2); CREATININE FOR GFR 7.69 MG/DL (0.55-1.30); GLOMERULAR FILTRATION RATE 5.5 (>39); POTASSIUM SERUM 4.7 MEQ/L (3.5-5.1); TOTAL PROTEIN 6.5 GM/DL (6.4-8.2)
[2021-06-16 13:06] LABS: HEMOGLOBIN A1c 8.7 %
[2021-06-16 15:45] VITALS: BP 139/75
[2021-06-16 18:00] VITALS: BP 132/59
[2021-06-16] MEDS: RAMELTEON 8 MG TAB (ROZEREM) PO SCH (21:55)
[2021-06-16] MEDS ORDERED: PREPARATION H OINTMENT (HEMORRHOID) PR PRN (23:55)
[2021-06-16] MEDS ORDERED: NYSTATIN 100,000 UNITS/GM TOPICAL PWD 15 GM TOP PRN (23:55)
[2021-06-17] MEDS: HEPARIN SOD (PORCINE) 5000UNITS/ML 1ML VIAL/SYRINGE SQ SCH ×3 (05:24→21:27)
[2021-06-17 06:00] VITALS: BP 125/59
[2021-06-17 06:25] LABS: MEAN CORPUSCULAR HEMOGLOBIN 26.7 pg (27.0-33.0); MEAN CORPUSCULAR VOLUME 89.1 fl (80.0-96.0); PLATELET COUNT, AUTOMATED 215 10^3/uL (150-450); RED BLOOD COUNT 4.49 10^6/uL (4.00-5.40); WHITE BLOOD COUNT 6.3 10^3/uL (4.0-10.0)
[2021-06-17 07:01] LABS: ALBUMIN 3.1 GM/DL (3.2-5.2); BILIRUBIN,TOTAL 0.6 MG/DL (0.2-1.0); CALCIUM LEVEL 8.9 MG/DL (8.8-10.2); CREATININE FOR GFR 5.42 MG/DL (0.55-1.30); GLOMERULAR FILTRATION RATE 8.2 (>39); POTASSIUM SERUM 4.4 MEQ/L (3.5-5.1); TOTAL PROTEIN 7.7 GM/DL (6.4-8.2)
[2021-06-17] MEDS: HumaLOG INSULIN (NovoLOG) PER UNIT SC SCH ×4 (07:30→20:32)
[2021-06-17] MEDS: COMBIVENT RESPIMAT 100-20MCG INHALER 4GM INH SCH ×2 (07:34→19:14)
[2021-06-17] MEDS: (RENVELA) SEVELAMER **CARBONate** 800 MG TAB PO SCH ×3 (08:00→17:14)
[2021-06-17] MEDS: CO-ENZYME Q10 50 MG CAP PO SCH (10:54)
[2021-06-17] MEDS: CARVedilol 12.5 MG TAB PO SCH ×2 (10:54→21:33)
[2021-06-17] MEDS: ASPIRIN 81MG ENTERIC TABLET PO SCH (10:54)
[2021-06-17] MEDS: MULTIVITAMINS/MINERALS THERAP 1 TAB PO SCH (10:54)
[2021-06-17] MEDS: **hydrALAZINE HCL** 25 MG TAB PO SCH ×3 (10:55→21:33)
[2021-06-17] MEDS: amLODIPine 5 MG TAB PO SCH (10:55)
[2021-06-17 19:23] VITALS: BP 109/46
[2021-06-17] MEDS: RAMELTEON 8 MG TAB (ROZEREM) PO SCH (21:32)
[2021-06-18] MEDS: HEPARIN SOD (PORCINE) 5000UNITS/ML 1ML VIAL/SYRINGE SQ SCH ×3 (05:02→21:39)
[2021-06-18] MEDS: CO-ENZYME Q10 50 MG CAP PO SCH (05:52)
[2021-06-18] MEDS: MULTIVITAMINS/MINERALS THERAP 1 TAB PO SCH (05:52)
[2021-06-18] MEDS: amLODIPine 5 MG TAB PO SCH (05:53)
[2021-06-18] MEDS: CARVedilol 12.5 MG TAB PO SCH ×2 (05:53→21:44)
[2021-06-18] MEDS: **hydrALAZINE HCL** 25 MG TAB PO SCH ×3 (05:54→21:00)
[2021-06-18] MEDS: ASPIRIN 81MG ENTERIC TABLET PO SCH (05:54)
[2021-06-18 06:00] VITALS: BP 120/55
[2021-06-18] MEDS ORDERED: SODIUM CHLORIDE 0.9% 1000ML IV PRN (06:00)
[2021-06-18] MEDS: HumaLOG INSULIN (NovoLOG) PER UNIT SC SCH ×4 (07:30→21:00)
[2021-06-18] MEDS: COMBIVENT RESPIMAT 100-20MCG INHALER 4GM INH SCH ×2 (07:33→20:10)
[2021-06-18] MEDS: (RENVELA) SEVELAMER **CARBONate** 800 MG TAB PO SCH ×3 (07:45→17:57)
[2021-06-18] MEDS: EMLA CREAM 5GM TUBE (LIDOCAINE/PRILOCAINE) TOP SCH (07:46)
[2021-06-18 08:11] LABS: HEMATOCRIT 33.3 % (36.0-47.0); HEMOGLOBIN 10.1 g/dl (12.0-15.5); MEAN CORPUSCULAR HEMOGLOBIN 27.1 pg (27.0-33.0); MEAN CORPUSCULAR HGB CONC 30.3 g/dl (32.0-36.5); MEAN CORPUSCULAR VOLUME 89.3 fl (80.0-96.0); PLATELET COUNT, AUTOMATED 196 10^3/uL (150-450); RED BLOOD COUNT 3.73 10^6/uL (4.00-5.40); WHITE BLOOD COUNT 7.2 10^3/uL (4.0-10.0)
[2021-06-18 08:45] LABS: ALBUMIN 2.7 GM/DL (3.2-5.2); BILIRUBIN,TOTAL 0.4 MG/DL (0.2-1.0); CALCIUM LEVEL 8.6 MG/DL (8.8-10.2); CREATININE FOR GFR 6.85 MG/DL (0.55-1.30); GLOMERULAR FILTRATION RATE 6.2 (>39); POTASSIUM SERUM 4.5 MEQ/L (3.5-5.1); TOTAL PROTEIN 6.3 GM/DL (6.4-8.2)
[2021-06-18 16:10] VITALS: BP 107/48
[2021-06-18] MEDS ORDERED: ACETAMINOPHEN TAB 650MG DOSE (2X325MG) PO PRN (16:15)
[2021-06-18] MEDS: CEPACOL LOZENGE PO PRN (18:51)
[2021-06-18] MEDS: diphenhydrAMINE 25MG CAP PO SCH (21:43)
[2021-06-19] MEDS: HEPARIN SOD (PORCINE) 5000UNITS/ML 1ML VIAL/SYRINGE SQ SCH ×3 (04:50→21:43)
[2021-06-19 05:19] VITALS: BP 117/55
[2021-06-19 05:38] VITALS: BP_SYST 102; BP_SYST 117; BP_SYST 79; BP_DIAS 52; BP_DIAS 55; BP_DIAS 73
[2021-06-19 07:00] LABS: HEMATOCRIT 34.4 % (36.0-47.0); HEMOGLOBIN 10.2 g/dl (12.0-15.5); MEAN CORPUSCULAR HEMOGLOBIN 26.7 pg (27.0-33.0); MEAN CORPUSCULAR HGB CONC 29.7 g/dl (32.0-36.5); MEAN CORPUSCULAR VOLUME 90.1 fl (80.0-96.0); PLATELET COUNT, AUTOMATED 174 10^3/uL (150-450); RED BLOOD COUNT 3.82 10^6/uL (4.00-5.40); WHITE BLOOD COUNT 6.5 10^3/uL (4.0-10.0)
[2021-06-19 07:39] LABS: ALBUMIN 2.6 GM/DL (3.2-5.2); BILIRUBIN,TOTAL 0.3 MG/DL (0.2-1.0); CALCIUM LEVEL 8.6 MG/DL (8.8-10.2); CREATININE FOR GFR 4.87 MG/DL (0.55-1.30); GLOMERULAR FILTRATION RATE 9.3 (>39); POTASSIUM SERUM 4.2 MEQ/L (3.5-5.1); TOTAL PROTEIN 6.8 GM/DL (6.4-8.2)
[2021-06-19] MEDS: COMBIVENT RESPIMAT 100-20MCG INHALER 4GM INH SCH ×2 (08:06→19:44)
[2021-06-19] MEDS: HumaLOG INSULIN (NovoLOG) PER UNIT SC SCH ×4 (08:38→19:55)
[2021-06-19] MEDS: (RENVELA) SEVELAMER **CARBONate** 800 MG TAB PO SCH ×3 (08:38→18:42)
[2021-06-19] MEDS: **hydrALAZINE HCL** 25 MG TAB PO SCH ×3 (08:40→21:42)
[2021-06-19] MEDS: CO-ENZYME Q10 50 MG CAP PO SCH (08:41)
[2021-06-19] MEDS: ASPIRIN 81MG ENTERIC TABLET PO SCH (08:42)
[2021-06-19] MEDS: amLODIPine 5 MG TAB PO SCH ×2 (08:43→10:09)
[2021-06-19] MEDS: MULTIVITAMINS/MINERALS THERAP 1 TAB PO SCH (08:43)
[2021-06-19] MEDS: CARVedilol 12.5 MG TAB PO SCH ×3 (08:47→21:43)
[2021-06-19] MEDS: CEPACOL LOZENGE PO PRN (14:49)
[2021-06-19] MEDS: diphenhydrAMINE 25MG CAP PO SCH (21:42)
[2021-06-20] MEDS: CEPACOL LOZENGE PO PRN ×2 (01:55→20:58)
[2021-06-20] MEDS: HEPARIN SOD (PORCINE) 5000UNITS/ML 1ML VIAL/SYRINGE SQ SCH ×3 (05:07→20:49)
[2021-06-20 05:39] VITALS: BP 130/57
[2021-06-20 06:24] LABS: HEMATOCRIT 32.9 % (36.0-47.0); HEMOGLOBIN 9.8 g/dl (12.0-15.5); MEAN CORPUSCULAR HEMOGLOBIN 26.6 pg (27.0-33.0); MEAN CORPUSCULAR HGB CONC 29.8 g/dl (32.0-36.5); MEAN CORPUSCULAR VOLUME 89.2 fl (80.0-96.0); PLATELET COUNT, AUTOMATED 177 10^3/uL (150-450); RED BLOOD COUNT 3.69 10^6/uL (4.00-5.40); WHITE BLOOD COUNT 6.7 10^3/uL (4.0-10.0)
[2021-06-20 06:27] VITALS: BP_SYST 128; BP_SYST 130; BP_DIAS 59; BP_DIAS 86; BP_DIAS 88
[2021-06-20 06:47] LABS: ALBUMIN 2.7 GM/DL (3.2-5.2); BILIRUBIN,TOTAL 0.3 MG/DL (0.2-1.0); CALCIUM LEVEL 8.3 MG/DL (8.8-10.2); CREATININE FOR GFR 6.45 MG/DL (0.55-1.30); GLOMERULAR FILTRATION RATE 6.7 (>39); POTASSIUM SERUM 4.1 MEQ/L (3.5-5.1); TOTAL PROTEIN 6.5 GM/DL (6.4-8.2)
[2021-06-20] MEDS: COMBIVENT RESPIMAT 100-20MCG INHALER 4GM INH SCH ×2 (07:05→19:03)
[2021-06-20] MEDS: HumaLOG INSULIN (NovoLOG) PER UNIT SC SCH ×4 (08:04→20:49)
[2021-06-20] MEDS: (RENVELA) SEVELAMER **CARBONate** 800 MG TAB PO SCH ×3 (08:04→18:20)
[2021-06-20] MEDS: **hydrALAZINE HCL** 25 MG TAB PO SCH ×3 (08:05→20:58)
[2021-06-20] MEDS: CO-ENZYME Q10 50 MG CAP PO SCH (08:06)
[2021-06-20] MEDS: CARVedilol 12.5 MG TAB PO SCH ×2 (08:06→20:58)
[2021-06-20] MEDS: ASPIRIN 81MG ENTERIC TABLET PO SCH (08:06)
[2021-06-20] MEDS: amLODIPine 5 MG TAB PO SCH (08:07)
[2021-06-20] MEDS: MULTIVITAMINS/MINERALS THERAP 1 TAB PO SCH (08:10)
[2021-06-20] MEDS ORDERED: DARBEPOETIN 100 MCG/0.5 ML *DIALYSIS* SYRINGE (J0882) IV SCH (14:35)
[2021-06-20] MEDS: diphenhydrAMINE 25MG CAP PO SCH (20:56)
[2021-06-21] MEDS ORDERED: SODIUM CHLORIDE 0.9% 1000ML IV PRN (00:45)
[2021-06-21] MEDS ORDERED: LIDOCAINE 1% SDV 5ML VIAL SC PRN (00:45)
[2021-06-21] MEDS: HEPARIN SOD (PORCINE) 5000UNITS/ML 1ML VIAL/SYRINGE SQ SCH ×3 (05:31→20:28)
[2021-06-21 06:00] VITALS: BP 136/67
[2021-06-21] MEDS: CO-ENZYME Q10 50 MG CAP PO SCH (06:11)
[2021-06-21] MEDS: MULTIVITAMINS/MINERALS THERAP 1 TAB PO SCH (06:11)
[2021-06-21] MEDS: ASPIRIN 81MG ENTERIC TABLET PO SCH (06:11)
[2021-06-21] MEDS: CARVedilol 12.5 MG TAB PO SCH ×2 (06:12→20:30)
[2021-06-21] MEDS: amLODIPine 5 MG TAB PO SCH (06:12)
[2021-06-21] MEDS: **hydrALAZINE HCL** 25 MG TAB PO SCH ×3 (06:13→20:30)
[2021-06-21] MEDS: HumaLOG INSULIN (NovoLOG) PER UNIT SC SCH ×4 (07:29→20:24)
[2021-06-21] MEDS: (RENVELA) SEVELAMER **CARBONate** 800 MG TAB PO SCH ×3 (07:29→17:21)
[2021-06-21] MEDS: COMBIVENT RESPIMAT 100-20MCG INHALER 4GM INH SCH ×2 (07:33→19:34)
[2021-06-21] MEDS: EMLA CREAM 5GM TUBE (LIDOCAINE/PRILOCAINE) TOP SCH (07:34)
[2021-06-21 08:33] LABS: HEMATOCRIT 31.3 % (36.0-47.0); HEMOGLOBIN 9.3 g/dl (12.0-15.5); MEAN CORPUSCULAR HEMOGLOBIN 26.6 pg (27.0-33.0); MEAN CORPUSCULAR HGB CONC 29.7 g/dl (32.0-36.5); MEAN CORPUSCULAR VOLUME 89.4 fl (80.0-96.0); PLATELET COUNT, AUTOMATED 168 10^3/uL (150-450); WHITE BLOOD COUNT 6.7 10^3/uL (4.0-10.0)
[2021-06-21 09:05] LABS: ALBUMIN 2.6 GM/DL (3.2-5.2); BILIRUBIN,TOTAL 0.3 MG/DL (0.2-1.0); CALCIUM LEVEL 8.9 MG/DL (8.8-10.2); CREATININE FOR GFR 7.38 MG/DL (0.55-1.30); GLOMERULAR FILTRATION RATE 5.7 (>39); POTASSIUM SERUM 4.3 MEQ/L (3.5-5.1); TOTAL PROTEIN 6.5 GM/DL (6.4-8.2)
[2021-06-21] MEDS: diphenhydrAMINE 25MG CAP PO SCH (20:32)
[2021-06-22] MEDS: HEPARIN SOD (PORCINE) 5000UNITS/ML 1ML VIAL/SYRINGE SQ SCH ×3 (05:02→21:21)
[2021-06-22 05:44] VITALS: BP 144/67
[2021-06-22] MEDS: HumaLOG INSULIN (NovoLOG) PER UNIT SC SCH ×4 (07:30→19:52)
[2021-06-22] MEDS: COMBIVENT RESPIMAT 100-20MCG INHALER 4GM INH SCH ×2 (07:32→20:18)
[2021-06-22] MEDS: (RENVELA) SEVELAMER **CARBONate** 800 MG TAB PO SCH ×3 (07:41→17:45)
[2021-06-22] MEDS: ASPIRIN 81MG ENTERIC TABLET PO SCH (09:28)
[2021-06-22] MEDS: CO-ENZYME Q10 50 MG CAP PO SCH (09:32)
[2021-06-22] MEDS: **hydrALAZINE HCL** 25 MG TAB PO SCH ×3 (09:32→21:20)
[2021-06-22] MEDS: amLODIPine 5 MG TAB PO SCH (09:33)
[2021-06-22] MEDS: CARVedilol 12.5 MG TAB PO SCH ×2 (09:33→21:20)
[2021-06-22] MEDS: MULTIVITAMINS/MINERALS THERAP 1 TAB PO SCH (09:33)
[2021-06-22 10:17] LABS: HEMATOCRIT 36.3 % (36.0-47.0); HEMOGLOBIN 10.9 g/dl (12.0-15.5); MEAN CORPUSCULAR HEMOGLOBIN 27.6 pg (27.0-33.0); MEAN CORPUSCULAR VOLUME 91.9 fl (80.0-96.0); PLATELET COUNT, AUTOMATED 190 10^3/uL (150-450); RED BLOOD COUNT 3.95 10^6/uL (4.00-5.40)
[2021-06-22 10:53] LABS: ALBUMIN 3.3 GM/DL (3.2-5.2); BILIRUBIN,TOTAL 0.3 MG/DL (0.2-1.0); CALCIUM LEVEL 9.4 MG/DL (8.8-10.2); CREATININE FOR GFR 5.08 MG/DL (0.55-1.30); GLOMERULAR FILTRATION RATE 8.8 (>39); POTASSIUM SERUM 4.7 MEQ/L (3.5-5.1); TOTAL PROTEIN 7.5 GM/DL (6.4-8.2)
[2021-06-22] MEDS: CEPACOL LOZENGE PO PRN ×2 (16:19→21:20)
[2021-06-22] MEDS: diphenhydrAMINE 25MG CAP PO SCH (21:20)
[2021-06-23] MEDS ORDERED: LIDOCAINE 1% SDV 5ML VIAL SC PRN (01:15)
[2021-06-23] MEDS ORDERED: SODIUM CHLORIDE 0.9% 1000ML IV PRN (01:15)
[2021-06-23 05:36] VITALS: BP 138/67
[2021-06-23] MEDS: HEPARIN SOD (PORCINE) 5000UNITS/ML 1ML VIAL/SYRINGE SQ SCH ×3 (05:43→20:43)
[2021-06-23] MEDS: ASPIRIN 81MG ENTERIC TABLET PO SCH (05:50)
[2021-06-23] MEDS: MULTIVITAMINS/MINERALS THERAP 1 TAB PO SCH (05:50)
[2021-06-23] MEDS: CARVedilol 12.5 MG TAB PO SCH ×2 (05:51→20:24)
[2021-06-23] MEDS: **hydrALAZINE HCL** 25 MG TAB PO SCH ×3 (05:51→20:24)
[2021-06-23] MEDS: amLODIPine 5 MG TAB PO SCH (05:51)
[2021-06-23] MEDS: CO-ENZYME Q10 50 MG CAP PO SCH (05:52)
[2021-06-23] MEDS: HumaLOG INSULIN (NovoLOG) PER UNIT SC SCH ×4 (07:30→20:43)
[2021-06-23] MEDS: COMBIVENT RESPIMAT 100-20MCG INHALER 4GM INH SCH ×2 (07:34→20:29)
[2021-06-23] MEDS: (RENVELA) SEVELAMER **CARBONate** 800 MG TAB PO SCH ×3 (08:00→18:20)
[2021-06-23] MEDS: EMLA CREAM 5GM TUBE (LIDOCAINE/PRILOCAINE) TOP SCH (08:27)
[2021-06-23 16:19] VITALS: BP_SYST 120; BP_SYST 124; BP_DIAS 54
[2021-06-23] MEDS: diphenhydrAMINE 25MG CAP PO SCH (20:23)
[2021-06-23] MEDS: CEPACOL LOZENGE PO PRN (20:23)
[2021-06-24] MEDS: HEPARIN SOD (PORCINE) 5000UNITS/ML 1ML VIAL/SYRINGE SQ SCH (05:20)
[2021-06-24 05:41] VITALS: BP 128/76
[2021-06-24] MEDS: COMBIVENT RESPIMAT 100-20MCG INHALER 4GM INH SCH (07:11)
[2021-06-24] MEDS: HumaLOG INSULIN (NovoLOG) PER UNIT SC SCH ×2 (07:30→12:00)
[2021-06-24] MEDS: (RENVELA) SEVELAMER **CARBONate** 800 MG TAB PO SCH ×2 (07:49→12:00)
[2021-06-24 09:04] VITALS: BP 138/78
[2021-06-24] MEDS: MULTIVITAMINS/MINERALS THERAP 1 TAB PO SCH (09:04)
[2021-06-24] MEDS: CARVedilol 12.5 MG TAB PO SCH (09:04)
[2021-06-24] MEDS: ASPIRIN 81MG ENTERIC TABLET PO SCH (09:04)
[2021-06-24] MEDS: **hydrALAZINE HCL** 25 MG TAB PO SCH (09:05)
[2021-06-24] MEDS: CO-ENZYME Q10 50 MG CAP PO SCH (09:05)
[2021-06-24] MEDS: amLODIPine 5 MG TAB PO SCH (09:05)
== END 2021-06-24 13:30 | disposition home or self-care (01) | DRG 947 ==
LOC: EDBD 11:48 → M ED 11:48 → M MSPAV 17:09 → ENRESERV 17:27
PROVIDERS: ADMIT Internal Medicine; ATTEND Family Medicine
DX: R53.1 Weakness (principal); N18.6 End stage renal disease; I50.22 Chronic systolic (congestive) heart failure; I69.351 Hemiplegia and hemiparesis following cerebral infarction affecting right dominant side; I13.2 Hypertensive heart and chronic kidney disease with heart failure and with stage 5 chronic kidney disease, or end stage renal disease; I25.10 Atherosclerotic heart disease of native coronary artery without angina pectoris; I25.5 Ischemic cardiomyopathy; E78.5 Hyperlipidemia, unspecified; D63.1 Anemia in chronic kidney disease; J47.9 Bronchiectasis, uncomplicated; J84.10 Pulmonary fibrosis, unspecified; E21.3 Hyperparathyroidism, unspecified; R53.81 Other malaise; R07.89 Other chest pain; Z95.1 Presence of aortocoronary bypass graft; R00.0 Tachycardia, unspecified; E11.22 Type 2 diabetes mellitus with diabetic chronic kidney disease; Z79.82 Long term (current) use of aspirin; Z79.52 Long term (current) use of systemic steroids; Z79.899 Other long term (current) drug therapy; Z88.8 Allergy status to other drugs, medicaments and biological substances

== ENCOUNTER 2021-07-13 06:01 | Observation (INO) | payer BC, MEDICARE ==
[~2021-07-13] VITALS: Ht 165.1 cm; Wt 68.8 kg
[~2021-07-13 06:01] MED LIST changes: +DOXY100T PO; +GLUCTAB31 PO; +RENATAB6 PO
[2021-07-13 06:51] LABS: HEMATOCRIT 37.4 % (36.0-47.0); HEMOGLOBIN 11.4 g/dl (12.0-15.5); MEAN CORPUSCULAR HEMOGLOBIN 27.8 pg (27.0-33.0); MEAN CORPUSCULAR HGB CONC 30.5 g/dl (32.0-36.5); MEAN CORPUSCULAR VOLUME 91.2 fl (80.0-96.0); PLATELET COUNT, AUTOMATED 119 10^3/uL (150-450); WHITE BLOOD COUNT 5.1 10^3/uL (4.0-10.0)
[2021-07-13 07:08] LABS: ALBUMIN 3.4 GM/DL (3.2-5.2); BILIRUBIN,TOTAL 0.5 MG/DL (0.2-1.0); CALCIUM LEVEL 9.3 MG/DL (8.8-10.2); CREATININE FOR GFR 5.51 MG/DL (0.55-1.30); POTASSIUM SERUM 4.3 MEQ/L (3.5-5.1); TOTAL PROTEIN 7.8 GM/DL (6.4-8.2)
[2021-07-13 07:34] LABS: CK-MB VALUE MASS 2.9 NG/ML (<3.6); MB/CK RELATIVE INDEX 3.26 (< OR =4)
[2021-07-13 09:08] LABS: CK-MB VALUE MASS 3.1 NG/ML (<3.6); MB/CK RELATIVE INDEX 1.71 (< OR =4)
[2021-07-13] MEDS ORDERED: DEXTROSE 50% 50 ML SYRINGE IV PRN (11:15)
[2021-07-13] MEDS ORDERED: GLUCOSE 4GM CHEW TABLET PO PRN (11:15)
[2021-07-13] MEDS ORDERED: GLUCAGON INJ 1MG VIAL SC PRN (11:15)
[2021-07-13] MEDS ORDERED: FLON1SPR NARES (11:37)
[2021-07-13] MEDS ORDERED: FLON50SP NARES (11:37)
[2021-07-13] MEDS ORDERED: HOME MED LIST COMPLETE! XX SCH (11:40)
[2021-07-13] MEDS: (RENVELA) SEVELAMER **CARBONate** 800 MG TAB PO SCH ×2 (12:30→18:37)
[2021-07-13] MEDS: ASPIRIN 81MG ENTERIC TABLET PO SCH (14:27)
[2021-07-13] MEDS: amLODIPine 5 MG TAB PO SCH (14:28)
[2021-07-13] MEDS: CARVedilol 12.5 MG TAB PO SCH ×2 (14:28→20:49)
[2021-07-13] MEDS: MULTIVITAMINS/MINERALS THERAP 1 TAB PO SCH (14:28)
[2021-07-13] MEDS: INSULIN LISPRO (NovoLOG) PER UNIT SC SCH ×3 (14:29→20:52)
[2021-07-13] MEDS ORDERED: EMLA CREAM 5GM TUBE (LIDOCAINE/PRILOCAINE) TOP PRN (16:25)
[2021-07-13 17:03] VITALS: BP 132/63
[2021-07-13] MEDS: **hydrALAZINE HCL** 25 MG TAB PO SCH ×2 (17:19→20:48)
[2021-07-13] MEDS: COMBIVENT RESPIMAT 100-20MCG INHALER 4GM INH SCH ×2 (17:35→19:43)
[2021-07-13] MEDS: CO-ENZYME Q10 50 MG CAP PO SCH (18:09)
[2021-07-13 20:00] VITALS: BP 144/66
[2021-07-13] MEDS: guaiFENesin DM LIQ 10ML UD PO PRN (20:49)
[2021-07-13] MEDS ORDERED: RAMELTEON 8 MG TAB (ROZEREM) PO PRN (21:25)
[2021-07-13] MEDS ORDERED: hydrOXYzine 25 MG TAB PO ONE (21:25)
[2021-07-14] VITALS: BP 129/61
[2021-07-14 04:00] VITALS: BP 137/65
[2021-07-14] MEDS: ASPIRIN 81MG ENTERIC TABLET PO SCH (05:37)
[2021-07-14] MEDS: MULTIVITAMINS/MINERALS THERAP 1 TAB PO SCH (05:37)
[2021-07-14] MEDS: **hydrALAZINE HCL** 25 MG TAB PO SCH ×3 (05:37→21:21)
[2021-07-14] MEDS: amLODIPine 5 MG TAB PO SCH (05:37)
[2021-07-14] MEDS: CARVedilol 12.5 MG TAB PO SCH ×2 (05:37→21:21)
[2021-07-14] MEDS: CO-ENZYME Q10 50 MG CAP PO SCH (05:38)
[2021-07-14] MEDS: guaiFENesin DM LIQ 10ML UD PO PRN (05:38)
[2021-07-14] MEDS: COMBIVENT RESPIMAT 100-20MCG INHALER 4GM INH SCH ×2 (07:08→19:44)
[2021-07-14 07:47] VITALS: BP 130/62
[2021-07-14] MEDS: INSULIN LISPRO (NovoLOG) PER UNIT SC SCH ×4 (08:02→21:00)
[2021-07-14] MEDS: (RENVELA) SEVELAMER **CARBONate** 800 MG TAB PO SCH ×3 (08:02→17:29)
[2021-07-14 12:20] VITALS: BP 155/70
[2021-07-14] MEDS: FLUTICASONE PROP 0.05% NASAL SPRAY 16 GM (FLONASE) NARES SCH (14:16)
[2021-07-14] MEDS ORDERED: ACETAMINOPHEN TAB 650MG DOSE (2X325MG) PO ONE (14:35)
[2021-07-14] MEDS ORDERED: SODIUM CHLORIDE 0.9% 1000ML IV PRN (16:25)
[2021-07-14 16:28] VITALS: BP 137/65
[2021-07-14 20:00] VITALS: BP 168/79
[2021-07-14] MEDS ORDERED: ACETAMINOPHEN TAB 650MG DOSE (2X325MG) PO PRN (22:35)
[2021-07-15] VITALS: BP 140/63
[2021-07-15 04:00] VITALS: BP 143/68
[2021-07-15 05:18] LABS: HEMATOCRIT 37.5 % (36.0-47.0); HEMOGLOBIN 11.4 g/dl (12.0-15.5); MEAN CORPUSCULAR HEMOGLOBIN 27.8 pg (27.0-33.0); MEAN CORPUSCULAR HGB CONC 30.4 g/dl (32.0-36.5); MEAN CORPUSCULAR VOLUME 91.5 fl (80.0-96.0); PLATELET COUNT, AUTOMATED 128 10^3/uL (150-450); WHITE BLOOD COUNT 6.3 10^3/uL (4.0-10.0)
[2021-07-15] MEDS ORDERED: LOPERAMIDE 2 MG CAPLET PO PRN (05:20)
[2021-07-15 05:39] LABS: ALBUMIN 3.2 GM/DL (3.2-5.2); BILIRUBIN,TOTAL 0.4 MG/DL (0.2-1.0); CALCIUM LEVEL 9.1 MG/DL (8.8-10.2); CREATININE FOR GFR 4.75 MG/DL (0.55-1.30); GLOMERULAR FILTRATION RATE 9.5 (>39); MAGNESIUM LEVEL 2.3 MG/DL (1.8-2.4); PHOSPHORUS LEVEL 3.6 MG/DL (2.5-4.9); TOTAL PROTEIN 7.2 GM/DL (6.4-8.2)
[2021-07-15] MEDS ORDERED: LOPERAMIDE 2 MG CAPLET PO ONE (05:45)
[2021-07-15] MEDS: COMBIVENT RESPIMAT 100-20MCG INHALER 4GM INH SCH (07:59)
[2021-07-15 08:10] VITALS: BP 134/64
[2021-07-15] MEDS: amLODIPine 5 MG TAB PO SCH (08:57)
[2021-07-15] MEDS: CO-ENZYME Q10 50 MG CAP PO SCH (08:57)
[2021-07-15] MEDS: ASPIRIN 81MG ENTERIC TABLET PO SCH (08:58)
[2021-07-15] MEDS: **hydrALAZINE HCL** 25 MG TAB PO SCH (08:58)
[2021-07-15] MEDS: CARVedilol 12.5 MG TAB PO SCH (08:58)
[2021-07-15] MEDS: (RENVELA) SEVELAMER **CARBONate** 800 MG TAB PO SCH ×2 (08:58→14:14)
[2021-07-15] MEDS: FLUTICASONE PROP 0.05% NASAL SPRAY 16 GM (FLONASE) NARES SCH (09:00)
[2021-07-15] MEDS: INSULIN LISPRO (NovoLOG) PER UNIT SC SCH ×2 (09:37→14:14)
[2021-07-15] MEDS ORDERED: GUAISYP5 PO (09:56)
[2021-07-15] MEDS ORDERED: CARVedilol 12.5 MG TAB PO ONE (11:20)
[2021-07-15 13:07] VITALS: BP 135/60
[2021-07-15] MEDS ORDERED: CORE25TA PO (13:37)
[2021-07-15] MEDS ORDERED: CARVedilol 12.5 MG TAB PO SCH (21:00)
== END 2021-07-15 17:04 | disposition home health service (06) ==
LOC: M ED 06:01 → M ED INP 06:02 → ENRESERV 14:53 → M PCU 16:55
PROVIDERS: ADMIT Internal Medicine; ATTEND Internal Medicine
DX: R05.8 Other specified cough (principal); J84.9 Interstitial pulmonary disease, unspecified; R07.89 Other chest pain; I47.2 Ventricular tachycardia; D69.6 Thrombocytopenia, unspecified; D63.1 Anemia in chronic kidney disease; I69.351 Hemiplegia and hemiparesis following cerebral infarction affecting right dominant side; N18.6 End stage renal disease; Z99.2 Dependence on renal dialysis; E11.22 Type 2 diabetes mellitus with diabetic chronic kidney disease; I13.2 Hypertensive heart and chronic kidney disease with heart failure and with stage 5 chronic kidney disease, or end stage renal disease; I50.20 Unspecified systolic (congestive) heart failure; I25.10 Atherosclerotic heart disease of native coronary artery without angina pectoris; R59.0 Localized enlarged lymph nodes; Z95.1 Presence of aortocoronary bypass graft; M54.9 Dorsalgia, unspecified; G89.29 Other chronic pain; E21.3 Hyperparathyroidism, unspecified; E78.5 Hyperlipidemia, unspecified; F03.90 Unspecified dementia, unspecified severity, without behavioral disturbance, psychotic disturbance, mood disturbance, and anxiety; K21.9 Gastro-esophageal reflux disease without esophagitis; Z85.118 Personal history of other malignant neoplasm of bronchus and lung; Z98.61 Coronary angioplasty status; Z79.899 Other long term (current) drug therapy; Z79.82 Long term (current) use of aspirin; Z88.8 Allergy status to other drugs, medicaments and biological substances
CPT/HCPCS: 36415; 71046; 71250; 80053; 80503; 82550; 82553; 83735; 83880; 84100; 84484; 85027; 87486; 87507; 87581; 87633; 87798; 93005; 93041; 94640; 94760; 97161; 97165; 97530; 99285; G0257; G0378; J1815

== ENCOUNTER → 2021-09-19 | Outpatient (CLI) | payer MEDICARE, BC ==
[~2021-09-19] MED LIST changes: +CORE25TA PO; +FLON1SPR NARES; +FLON50SP NARES; +GUAISYP5 PO
== END ==
LOC: M LABSMTC 09:45
PROVIDERS: ATTEND Anesthesiology
DX: Z01.812 Encounter for preprocedural laboratory examination (principal)

== ENCOUNTER → 2021-09-21 | Outpatient (CLI) | payer MEDICARE, BC ==
[~2021-09-21] MED LIST changes: +ISOVUE-300 61% 50ML VIAL As Ordered ONE; +LIDOCAINE 1% MDV 20ML VIAL As Ordered ONE; +MIDAZOLAM INJ 2MG/2ML VIAL (J2250 PER 1MG) As Ordered ONE; +fentaNYL 100 MCG/2 ML INJECTION As Ordered ONE
[2021-09-21 12:00] LABS: HEMATOCRIT 41.6 % (36.0-47.0); HEMOGLOBIN 12.7 g/dl (12.0-15.5); MEAN CORPUSCULAR HEMOGLOBIN 28.7 pg (27.0-33.0); MEAN CORPUSCULAR HGB CONC 30.5 g/dl (32.0-36.5); MEAN CORPUSCULAR VOLUME 94.1 fl (80.0-96.0); PLATELET COUNT, AUTOMATED 127 10^3/uL (150-450); RED BLOOD COUNT 4.42 10^6/uL (4.00-5.40); WHITE BLOOD COUNT 5.4 10^3/uL (4.0-10.0)
[2021-09-21 12:15] LABS: INR 0.94
[2021-09-21 12:16] LABS: PARTIAL THROMBOPLASTIN TIME 29.5 SECONDS (25.9-37.0)
[2021-09-21 12:19] LABS: CALCIUM LEVEL 9.9 MG/DL (8.8-10.2); CREATININE FOR GFR 6.58 MG/DL (0.55-1.30); GLOMERULAR FILTRATION RATE 6.5 (>39); POTASSIUM SERUM 5.8 MEQ/L (3.5-5.1)
[2021-09-21 13:20] VITALS: BP 170/84
== END ==
LOC: M IRPRO 10:18
PROVIDERS: ATTEND Surgery Vascular Surgery
DX: T82.858A Stenosis of other vascular prosthetic devices, implants and grafts, initial encounter (principal); I70.293 Other atherosclerosis of native arteries of extremities, bilateral legs; Z99.2 Dependence on renal dialysis; N18.6 End stage renal disease
CPT/HCPCS: 36415; 36902; 36907; 80048; 85027; 85610; 85730; 86850; 86900; 86901; 99152; 99153; C1725; C1769; C1894; C2623; J1644; J2250; J3010; Q9967

== ENCOUNTER 2021-11-18 23:41 | Inpatient (IN) | payer BC, MEDICARE ==
[~2021-11-18] VITALS: Ht 165.1 cm; Wt 63.8 kg
[~2021-11-18 23:41] MED LIST changes: -ISOVUE-300 61% 50ML VIAL As Ordered ONE; -LABE100T5 PO; +LABE100T71 PO; -LIDOCAINE 1% MDV 20ML VIAL As Ordered ONE; -MIDAZOLAM INJ 2MG/2ML VIAL (J2250 PER 1MG) As Ordered ONE; -fentaNYL 100 MCG/2 ML INJECTION As Ordered ONE
[2021-11-19] MEDS ORDERED: ONDANSETRON 4MG ORAL DISINTEGRATING TAB PO ONE (03:55)
[2021-11-19] MEDS ORDERED: MECLIZINE 25 MG TABLET PO ONE (03:55)
[2021-11-19] MEDS ORDERED: diazePAM 10MG/2ML SYRINGE (J3360 PER 5MG) IV ONE (05:55)
[2021-11-19] MEDS ORDERED: NS 500 ML IV ONE (05:55)
[2021-11-19 06:49] LABS: BASO % 0.6 % (0.0-1.0); EOS # 0.1 10^3/uL (0.0-0.5); EOS % 1.7 % (0.0-3.0); HEMATOCRIT 34.8 % (36.0-47.0); HEMOGLOBIN 10.6 g/dl (12.0-15.5); LYMPH # 0.8 10^3/uL (1.5-5.0); LYMPH % 14.2 % (24.0-44.0); MEAN CORPUSCULAR HEMOGLOBIN 29.4 pg (27.0-33.0); MEAN CORPUSCULAR HGB CONC 30.5 g/dl (32.0-36.5); MEAN CORPUSCULAR VOLUME 96.4 fl (80.0-96.0); MONO # 0.4 10^3/uL (0.0-0.8); MONO % 7.6 % (2.0-8.0); NEUTROPHILS % 75.5 % (36.0-66.0); PLATELET COUNT, AUTOMATED 116 10^3/uL (150-450); RED BLOOD COUNT 3.61 10^6/uL (4.00-5.40); WHITE BLOOD COUNT 5.3 10^3/uL (4.0-10.0)
[2021-11-19 07:06] LABS: INR 0.97; PROTHROMBIN TIME 13.3 SECONDS (12.7-14.5)
[2021-11-19 07:07] LABS: PARTIAL THROMBOPLASTIN TIME 21.5 SECONDS (25.9-37.0)
[2021-11-19] MEDS ORDERED: flumazeniL 0.5 MG/5 ML VIAL IV STA (07:30)
[2021-11-19 07:32] LABS: CALCIUM LEVEL 9.3 MG/DL (8.8-10.2); CREATININE FOR GFR 7.98 MG/DL (0.55-1.30); GLOMERULAR FILTRATION RATE 5.2 (>39); POTASSIUM SERUM 5.7 MEQ/L (3.5-5.1)
[2021-11-19] MEDS ORDERED: HOME MED LIST COMPLETE! XX SCH (08:45)
[2021-11-19 10:57] LABS: RSV AMPLIFICATION NEGATIVE (NEGATIVE)
[2021-11-19] MEDS ORDERED: DEXTROSE 50% 50 ML SYRINGE IV PRN (11:35)
[2021-11-19] MEDS ORDERED: GLUCOSE 4GM CHEW TABLET PO PRN (11:35)
[2021-11-19] MEDS ORDERED: GLUCAGON INJ 1MG VIAL SC PRN (11:35)
[2021-11-19] MEDS ORDERED: SODIUM CHLORIDE 0.9% 1000ML IV PRN (11:55)
[2021-11-19] MEDS ORDERED: LIDOCAINE 1% SDV 5ML VIAL SC PRN (11:55)
[2021-11-19] MEDS ORDERED: INSULIN LISPRO (NovoLOG) PER UNIT SC SCH (12:00)
[2021-11-19] MEDS ORDERED: EMLA CREAM 5GM TUBE (LIDOCAINE/PRILOCAINE) TOP SCH (12:00)
[2021-11-19] MEDS: HEPARIN SOD (PORCINE) 5000UNITS/ML 1ML VIAL/SYRINGE SC SCH ×2 (14:00→21:09)
[2021-11-19] MEDS ORDERED: METAL LOCK LOOP XX ONE (14:04)
[2021-11-19] MEDS: INSULIN LISPRO (NovoLOG) PER UNIT SC SCH ×2 (17:30→21:00)
[2021-11-19 17:42] VITALS: BP 148/88
[2021-11-19 20:00] VITALS: O2SAT 97
[2021-11-19 20:10] VITALS: BP 130/62
[2021-11-19 23:40] VITALS: BP 124/58
[2021-11-20] VITALS (11 sets, daily range): BP systolic 125–157; BP diastolic 61–71; O2SAT 94–100
[2021-11-20] MEDS: HEPARIN SOD (PORCINE) 5000UNITS/ML 1ML VIAL/SYRINGE SC SCH ×4 (02:53→21:06)
[2021-11-20 08:12] LABS: BASO % 0.7 % (0.0-1.0); EOS # 0.1 10^3/uL (0.0-0.5); EOS % 2.4 % (0.0-3.0); HEMATOCRIT 33.8 % (36.0-47.0); HEMOGLOBIN 10.3 g/dl (12.0-15.5); LYMPH % 18.9 % (24.0-44.0); MEAN CORPUSCULAR HGB CONC 30.5 g/dl (32.0-36.5); MEAN CORPUSCULAR VOLUME 98.5 fl (80.0-96.0); MONO # 0.5 10^3/uL (0.0-0.8); NEUTROPHILS # 3.7 10^3/uL (1.5-8.5); NEUTROPHILS % 68.6 % (36.0-66.0); PLATELET COUNT, AUTOMATED 126 10^3/uL (150-450); RED BLOOD COUNT 3.43 10^6/uL (4.00-5.40); WHITE BLOOD COUNT 5.4 10^3/uL (4.0-10.0)
[2021-11-20 09:07] LABS: CALCIUM LEVEL 8.6 MG/DL (8.8-10.2); CREATININE FOR GFR 5.79 MG/DL (0.55-1.30); GLOMERULAR FILTRATION RATE 7.6 (>39); MAGNESIUM LEVEL 2.2 MG/DL (1.8-2.4); POTASSIUM SERUM 4.5 MEQ/L (3.5-5.1)
[2021-11-20] MEDS: INSULIN LISPRO (NovoLOG) PER UNIT SC SCH ×4 (09:40→21:00)
[2021-11-20] MEDS: GASTROGRAFIN SOLUTION 30ML PO SCH ×2 (09:40→09:45)
[2021-11-20] MEDS: amLODIPine 5 MG TAB PO SCH (09:41)
[2021-11-20] MEDS: ASPIRIN 81MG ENTERIC TABLET PO SCH (09:41)
[2021-11-20] MEDS ORDERED: ISOVUE-370 76% 100ML VIAL As Ordered ONE (10:49)
[2021-11-20] MEDS ORDERED: IPRATROPIUM 0.5MG/ALBUTEROL 2.5MG INH SOL UD 3ML (DUONEB) NEB PRN (11:35)
[2021-11-20] MEDS ORDERED: ACETAMINOPHEN TAB 650MG DOSE (2X325MG) PO PRN (11:40)
[2021-11-20] MEDS ORDERED: CEPACOL LOZENGE PO PRN (21:30)
[2021-11-21] VITALS (12 sets, daily range): BP systolic 124–145; BP diastolic 56–80; O2SAT 86–100
[2021-11-21] MEDS: HEPARIN SOD (PORCINE) 5000UNITS/ML 1ML VIAL/SYRINGE SC SCH ×3 (06:00→21:08)
[2021-11-21 06:06] LABS: BASO % 0.6 % (0.0-1.0); EOS # 0.1 10^3/uL (0.0-0.5); EOS % 1.7 % (0.0-3.0); HEMATOCRIT 32.8 % (36.0-47.0); HEMOGLOBIN 9.9 g/dl (12.0-15.5); LYMPH # 0.8 10^3/uL (1.5-5.0); LYMPH % 16.1 % (24.0-44.0); MEAN CORPUSCULAR HEMOGLOBIN 29.3 pg (27.0-33.0); MEAN CORPUSCULAR HGB CONC 30.2 g/dl (32.0-36.5); MONO # 0.5 10^3/uL (0.0-0.8); MONO % 9.8 % (2.0-8.0); NEUTROPHILS # 3.4 10^3/uL (1.5-8.5); NEUTROPHILS % 71.2 % (36.0-66.0); PLATELET COUNT, AUTOMATED 122 10^3/uL (150-450); RED BLOOD COUNT 3.38 10^6/uL (4.00-5.40); WHITE BLOOD COUNT 4.8 10^3/uL (4.0-10.0)
[2021-11-21 06:56] LABS: CALCIUM LEVEL 8.2 MG/DL (8.8-10.2); CREATININE FOR GFR 7.36 MG/DL (0.55-1.30); GLOMERULAR FILTRATION RATE 5.7 (>39); POTASSIUM SERUM 4.4 MEQ/L (3.5-5.1)
[2021-11-21] MEDS ORDERED: BISACODYL 10 MG SUPP PR ONE (08:35)
[2021-11-21] MEDS ORDERED: MIRALAX *UNIT DOSE* 17GM PACKET PO PRN (08:35)
[2021-11-21] MEDS: ASPIRIN 81MG ENTERIC TABLET PO SCH (08:46)
[2021-11-21] MEDS: amLODIPine 5 MG TAB PO SCH (08:46)
[2021-11-21] MEDS: INSULIN LISPRO (NovoLOG) PER UNIT SC SCH ×4 (08:47→21:00)
[2021-11-21] MEDS: SENOKOT S TAB PO SCH ×3 (10:58→21:06)
[2021-11-21] MEDS ORDERED: traMADol 50 MG TAB PO PRN (21:35)
[2021-11-22] MEDS ORDERED: ONDANSETRON 4MG 2ML VIAL IV ONE (04:00)
[2021-11-22] MEDS ORDERED: MECLIZINE 12.5 MG TAB PO ONE (05:00)
[2021-11-22] MEDS: HEPARIN SOD (PORCINE) 5000UNITS/ML 1ML VIAL/SYRINGE SC SCH ×3 (05:57→22:00)
[2021-11-22] MEDS: ASPIRIN 81MG ENTERIC TABLET PO SCH (05:57)
[2021-11-22] MEDS: SENOKOT S TAB PO SCH ×2 (05:58→21:00)
[2021-11-22] MEDS: amLODIPine 5 MG TAB PO SCH (05:59)
[2021-11-22 06:00] VITALS: BP 164/77
[2021-11-22] MEDS ORDERED: LIDOCAINE 1% SDV 5ML VIAL SC PRN (06:15)
[2021-11-22] MEDS ORDERED: SODIUM CHLORIDE 0.9% 1000ML IV PRN (06:15)
[2021-11-22 06:19] LABS: BASO % 0.2 % (0.0-1.0); EOS # 0.1 10^3/uL (0.0-0.5); LYMPH # 0.8 10^3/uL (1.5-5.0); LYMPH % 8.9 % (24.0-44.0); MEAN CORPUSCULAR HEMOGLOBIN 29.3 pg (27.0-33.0); MEAN CORPUSCULAR HGB CONC 30.3 g/dl (32.0-36.5); MEAN CORPUSCULAR VOLUME 96.8 fl (80.0-96.0); MONO # 0.6 10^3/uL (0.0-0.8); MONO % 6.8 % (2.0-8.0); NEUTROPHILS # 6.9 10^3/uL (1.5-8.5); NEUTROPHILS % 82.6 % (36.0-66.0); PLATELET COUNT, AUTOMATED 113 10^3/uL (150-450); RED BLOOD COUNT 3.41 10^6/uL (4.00-5.40); WHITE BLOOD COUNT 8.4 10^3/uL (4.0-10.0)
[2021-11-22 06:59] LABS: CALCIUM LEVEL 8.9 MG/DL (8.8-10.2); CREATININE FOR GFR 9.36 MG/DL (0.55-1.30); GLOMERULAR FILTRATION RATE 4.4 (>39); MAGNESIUM LEVEL 1.9 MG/DL (1.8-2.4); POTASSIUM SERUM 5.8 MEQ/L (3.5-5.1)
[2021-11-22] MEDS: INSULIN LISPRO (NovoLOG) PER UNIT SC SCH ×4 (08:40→21:00)
[2021-11-22] MEDS ORDERED: DARBEPOETIN 100 MCG/0.5 ML *DIALYSIS* SYRINGE (J0882) IV SCH (11:55)
[2021-11-22 13:33] LABS: CREATININE FOR GFR 9.85 MG/DL (0.55-1.30); GLOMERULAR FILTRATION RATE 4.1 (>39); POTASSIUM SERUM 4.9 MEQ/L (3.5-5.1)
[2021-11-23] MEDS: HEPARIN SOD (PORCINE) 5000UNITS/ML 1ML VIAL/SYRINGE SC SCH ×3 (05:10→21:24)
[2021-11-23 06:00] VITALS: BP 132/70
[2021-11-23 06:18] LABS: BASO % 0.3 % (0.0-1.0); EOS # 0.1 10^3/uL (0.0-0.5); EOS % 1.1 % (0.0-3.0); HEMATOCRIT 33.4 % (36.0-47.0); HEMOGLOBIN 10.3 g/dl (12.0-15.5); LYMPH # 0.7 10^3/uL (1.5-5.0); LYMPH % 8.6 % (24.0-44.0); MEAN CORPUSCULAR HEMOGLOBIN 29.8 pg (27.0-33.0); MEAN CORPUSCULAR HGB CONC 30.8 g/dl (32.0-36.5); MEAN CORPUSCULAR VOLUME 96.5 fl (80.0-96.0); MONO # 0.6 10^3/uL (0.0-0.8); NEUTROPHILS # 6.2 10^3/uL (1.5-8.5); NEUTROPHILS % 81.3 % (36.0-66.0); PLATELET COUNT, AUTOMATED 119 10^3/uL (150-450); RED BLOOD COUNT 3.46 10^6/uL (4.00-5.40); WHITE BLOOD COUNT 7.6 10^3/uL (4.0-10.0)
[2021-11-23 06:48] LABS: CALCIUM LEVEL 8.8 MG/DL (8.8-10.2); CREATININE FOR GFR 6.8 MG/DL (0.55-1.30); GLOMERULAR FILTRATION RATE 6.3 (>39); POTASSIUM SERUM 5.1 MEQ/L (3.5-5.1)
[2021-11-23] MEDS: INSULIN LISPRO (NovoLOG) PER UNIT SC SCH ×4 (07:30→21:22)
[2021-11-23] MEDS: amLODIPine 5 MG TAB PO SCH (08:08)
[2021-11-23] MEDS: SENOKOT S TAB PO SCH ×2 (08:08→21:00)
[2021-11-23] MEDS: ASPIRIN 81MG ENTERIC TABLET PO SCH (08:08)
[2021-11-23] MEDS ORDERED: SODIUM CHLORIDE 0.9% 1000ML IV PRN (09:25)
[2021-11-23] MEDS ORDERED: LIDOCAINE 1% SDV 5ML VIAL SC PRN (09:25)
[2021-11-24] MEDS: HEPARIN SOD (PORCINE) 5000UNITS/ML 1ML VIAL/SYRINGE SC SCH ×4 (05:05→20:04)
[2021-11-24 06:00] VITALS: BP 135/70
[2021-11-24] MEDS ORDERED: LIDOCAINE 1% SDV 5ML VIAL SC PRN (06:15)
[2021-11-24] MEDS ORDERED: SODIUM CHLORIDE 0.9% 1000ML IV PRN (06:15)
[2021-11-24 06:39] LABS: BASO % 0.4 % (0.0-1.0); EOS # 0.1 10^3/uL (0.0-0.5); HEMATOCRIT 33.5 % (36.0-47.0); HEMOGLOBIN 10.1 g/dl (12.0-15.5); LYMPH # 0.7 10^3/uL (1.5-5.0); LYMPH % 12.9 % (24.0-44.0); MEAN CORPUSCULAR HEMOGLOBIN 29.4 pg (27.0-33.0); MEAN CORPUSCULAR HGB CONC 30.1 g/dl (32.0-36.5); MEAN CORPUSCULAR VOLUME 97.4 fl (80.0-96.0); MONO # 0.7 10^3/uL (0.0-0.8); MONO % 12.2 % (2.0-8.0); PLATELET COUNT, AUTOMATED 123 10^3/uL (150-450); RED BLOOD COUNT 3.44 10^6/uL (4.00-5.40); WHITE BLOOD COUNT 5.6 10^3/uL (4.0-10.0)
[2021-11-24 07:13] LABS: CREATININE FOR GFR 5.85 MG/DL (0.55-1.30); GLOMERULAR FILTRATION RATE 7.5 (>39); MAGNESIUM LEVEL 2.1 MG/DL (1.8-2.4); POTASSIUM SERUM 4.5 MEQ/L (3.5-5.1)
[2021-11-24] MEDS: ASPIRIN 81MG ENTERIC TABLET PO SCH (08:08)
[2021-11-24] MEDS: SENOKOT S TAB PO SCH ×3 (08:08→20:01)
[2021-11-24] MEDS: INSULIN LISPRO (NovoLOG) PER UNIT SC SCH ×4 (08:10→20:01)
[2021-11-24] MEDS: amLODIPine 5 MG TAB PO SCH (08:10)
[2021-11-25] MEDS: HEPARIN SOD (PORCINE) 5000UNITS/ML 1ML VIAL/SYRINGE SC SCH ×2 (05:42→12:48)
[2021-11-25 05:45] VITALS: BP 133/66
[2021-11-25] MEDS: ASPIRIN 81MG ENTERIC TABLET PO SCH (08:30)
[2021-11-25 08:32] VITALS: BP 134/65
[2021-11-25] MEDS: amLODIPine 5 MG TAB PO SCH (08:32)
[2021-11-25] MEDS: INSULIN LISPRO (NovoLOG) PER UNIT SC SCH ×2 (08:33→12:40)
[2021-11-25] MEDS: SENOKOT S TAB PO SCH (08:54)
[2021-11-25 14:55] LABS: BASO % 0.6 % (0.0-1.0); EOS # 0.1 10^3/uL (0.0-0.5); EOS % 2.1 % (0.0-3.0); HEMATOCRIT 38.8 % (36.0-47.0); HEMOGLOBIN 11.8 g/dl (12.0-15.5); LYMPH # 0.8 10^3/uL (1.5-5.0); LYMPH % 14.2 % (24.0-44.0); MEAN CORPUSCULAR HEMOGLOBIN 29.9 pg (27.0-33.0); MEAN CORPUSCULAR HGB CONC 30.4 g/dl (32.0-36.5); MEAN CORPUSCULAR VOLUME 98.5 fl (80.0-96.0); MONO # 0.6 10^3/uL (0.0-0.8); MONO % 11.5 % (2.0-8.0); NEUTROPHILS # 3.8 10^3/uL (1.5-8.5); PLATELET COUNT, AUTOMATED 144 10^3/uL (150-450); RED BLOOD COUNT 3.94 10^6/uL (4.00-5.40); WHITE BLOOD COUNT 5.3 10^3/uL (4.0-10.0)
[2021-11-25 15:34] LABS: CALCIUM LEVEL 9.1 MG/DL (8.8-10.2); CREATININE FOR GFR 5.57 MG/DL (0.55-1.30); GLOMERULAR FILTRATION RATE 7.9 (>39); MAGNESIUM LEVEL 2.1 MG/DL (1.8-2.4); POTASSIUM SERUM 4.1 MEQ/L (3.5-5.1)
== END 2021-11-25 17:20 | disposition home health service (06) | DRG 70 ==
LOC: M ED 23:41 → M ED INP 11-19 10:06 → M PCU 11-19 17:25 → OBSVTOIN 11-20 11:21 → M MS5PR 11-21 13:31
PROVIDERS: ADMIT Internal Medicine; ATTEND Internal Medicine
PROC: 5A1D70Z Performance of Urinary Filtration, Intermittent, Less than 6 Hours Per Day (ICD-10-PCS; principal; 2021-11-22)
DX: G93.41 Metabolic encephalopathy (principal); N18.6 End stage renal disease; I69.351 Hemiplegia and hemiparesis following cerebral infarction affecting right dominant side; I50.42 Chronic combined systolic (congestive) and diastolic (congestive) heart failure; I13.2 Hypertensive heart and chronic kidney disease with heart failure and with stage 5 chronic kidney disease, or end stage renal disease; E87.1 Hypo-osmolality and hyponatremia; J90 Pleural effusion, not elsewhere classified; Z99.2 Dependence on renal dialysis; I69.328 Other speech and language deficits following cerebral infarction; R47.81 Slurred speech; Z66 Do not resuscitate; I25.2 Old myocardial infarction; E11.42 Type 2 diabetes mellitus with diabetic polyneuropathy; E11.22 Type 2 diabetes mellitus with diabetic chronic kidney disease; F03.90 Unspecified dementia, unspecified severity, without behavioral disturbance, psychotic disturbance, mood disturbance, and anxiety; I25.10 Atherosclerotic heart disease of native coronary artery without angina pectoris; E11.51 Type 2 diabetes mellitus with diabetic peripheral angiopathy without gangrene; M19.90 Unspecified osteoarthritis, unspecified site; G47.33 Obstructive sleep apnea (adult) (pediatric); K21.9 Gastro-esophageal reflux disease without esophagitis; D63.8 Anemia in other chronic diseases classified elsewhere; R42 Dizziness and giddiness; I25.5 Ischemic cardiomyopathy; E78.5 Hyperlipidemia, unspecified; E87.5 Hyperkalemia; D69.6 Thrombocytopenia, unspecified; R05.3 Chronic cough; R53.1 Weakness; E87.70 Fluid overload, unspecified; E21.3 Hyperparathyroidism, unspecified; Z95.5 Presence of coronary angioplasty implant and graft; Z96.1 Presence of intraocular lens; Z98.41 Cataract extraction status, right eye; Z98.42 Cataract extraction status, left eye; Z87.891 Personal history of nicotine dependence; Z79.899 Other long term (current) drug therapy; Z88.8 Allergy status to other drugs, medicaments and biological substances; Z79.82 Long term (current) use of aspirin

== ENCOUNTER → 2021-12-30 | Outpatient (CLI) | payer BC, MEDICARE ==
[~2021-12-30] MED LIST changes: +CLOP75TA99 PO; -DOXY-350 PO; +DOXY-444 PO; -PLAV1TAB2 PO
[2021-12-30 16:28] LABS: CALCIUM LEVEL 9.3 MG/DL (8.8-10.2); CHOLESTEROL RISK RATIO 4.437 (<5); CREATININE FOR GFR 6.95 MG/DL (0.55-1.30); GLOMERULAR FILTRATION RATE 6.1 (>39); POTASSIUM SERUM 4.7 MEQ/L (3.5-5.1)
[2021-12-30 17:22] LABS: HEMOGLOBIN A1c 7.2 %
== END ==
LOC: M LAB 14:26
PROVIDERS: ATTEND Family Medicine
DX: E11.9 Type 2 diabetes mellitus without complications (principal)

== ENCOUNTER → 2021-12-30 | Outpatient (CLI) | payer BC, MEDICARE ==
[2021-12-30 16:19] LABS: C REACTIVE PROTEIN QUANTITATIV < 0.30 MG/DL (0.00-0.30); RHEUMATOID FACTOR QUANT 24.4 IU/ML (<15.0)
[2022-01-12 19:07] LABS: ANCA-ATYPICAL <1:20 titer (Neg:<1:20); ANGIOTENSIN 1 CONVERTING ENZYM 62 U/L (14-82); ANTI DS-DNA AB Negative (Negative); ANTINUCLEAR ANTIBODIES DIRECT Negative (Negative); ASPERGILLUS FUMIGATUS AB Negative (Negative); AUREOBASIDIUM PULLULANS Negative (Negative); CYCLIC CITRULLINATED PEPTIDE 4 units (0-19); CYTOPLASMIC NEUTROP AB ANCA-C <1:20 titer (Neg:<1:20); MICROPOLYSPORA FAENI AB Negative (Negative); PERINUCLEAR AB ANCA-P <1:20 titer (Neg:<1:20); PIGEON SERUM AB Negative (Negative); RNP ANTIBODIES 0.3 AI (0.0-0.9); SJOGREN'S ANTI SS-A <0.2 AI (0.0-0.9); SJOGREN'S ANTI SS-B <0.2 AI (0.0-0.9); SMITH ANTIBODIES <0.2 AI (0.0-0.9); THERMOACTINOMYCES SACCHARI Negative (Negative); THERMOACTINOMYCES VULGARIS Negative (Negative)
== END ==
LOC: M LAB 14:30
PROVIDERS: ATTEND Internal Medicine Pulmonary Disease
DX: J84.9 Interstitial pulmonary disease, unspecified (principal)

== ENCOUNTER → 2022-04-12 | Outpatient (CLI) | payer MEDICARE | LOC: M PLAIMG 09:04 | PROVIDERS: ATTEND Family Medicine | DX: R10.9 Unspecified abdominal pain (principal); K62.89 Other specified diseases of anus and rectum; K21.9 Gastro-esophageal reflux disease without esophagitis ==

== ENCOUNTER 2022-06-17 09:49 | Day surgery (SDC) | payer MEDICARE, BC ==
[~2022-06-17] VITALS: Ht 165.1 cm; Wt 63.5 kg
[~2022-06-17 09:49] MED LIST changes: +ALBU2.5V10 INH; -ASPE16CR TOP; +DULO1CAP5 PO; +LIDO76.52 TOP; +LOSA25TA13 PO; +METO1TAB32 PO; +NS 1,000 ML IV ONE
[2022-06-17] MEDS ORDERED: LIDOCAINE 2% 100MG/5ML SDV (FOR ANES.) As Ordered ONE (11:21)
[2022-06-17] MEDS ORDERED: propofoL 200 MG/20 ML VIAL As Ordered ONE (11:21)
[2022-06-17 11:50] VITALS: BP 161/83
== END 2022-06-17 12:02 | disposition home or self-care (01) ==
LOC: M OPP 09:49
PROVIDERS: ATTEND Surgery
DX: R93.3 Abnormal findings on diagnostic imaging of other parts of digestive tract (principal); I50.9 Heart failure, unspecified; N18.6 End stage renal disease; Z99.2 Dependence on renal dialysis; Z79.51 Long term (current) use of inhaled steroids; Z79.82 Long term (current) use of aspirin; Z79.899 Other long term (current) drug therapy; Z88.8 Allergy status to other drugs, medicaments and biological substances; Z87.891 Personal history of nicotine dependence

== ENCOUNTER → 2022-08-02 | Outpatient (CLI) | payer MEDICARE, BC ==
[~2022-08-02] MED LIST changes: -LOSA100T45 PO; +LOSA100T46 PO; -NS 1,000 ML IV ONE
== END ==
LOC: M PLAIMG 13:31
PROVIDERS: ATTEND Physician Assistant
DX: R93.3 Abnormal findings on diagnostic imaging of other parts of digestive tract (principal); K59.00 Constipation, unspecified

== ENCOUNTER → 2022-08-18 | Outpatient (CLI) | payer MEDICARE, BC ==
[~2022-08-18] MED LIST changes: +SENN-111 PO; -SENN18TA PO
== END ==
LOC: M PLAIMG 10:52
PROVIDERS: ATTEND Internal Medicine Pulmonary Disease
DX: J84.9 Interstitial pulmonary disease, unspecified (principal)

== ENCOUNTER 2022-09-28 23:32 | Inpatient (IN) | payer MEDICARE, BC ==
[~2022-09-28] VITALS: Ht 165.1 cm; Wt 63.3 kg
[~2022-09-28 23:32] MED LIST changes: -LIDO1CRE42 TOP; +LIDO30CR18 TOP
[2022-09-29 00:36] LABS: ETHYL ALCOHOL (ETHANOL) 0.005 % (0.000-0.010)
[2022-09-29 00:37] LABS: ACETAMINOPHEN LEVEL < 2.0 UG/ML (10.0-20.0)
[2022-09-29 00:38] LABS: ALBUMIN 3.5 G/DL (3.2-5.2); ALKALINE PHOSPHATASE 151 U/L (46-116); ALT/SGPT 18 U/L (7.0-40); AST/SGOT 16 U/L (<34); BILIRUBIN,DIRECT 0.2 MG/DL (<0.4); BILIRUBIN,TOTAL 0.4 MG/DL (0.3-1.2); BLOOD UREA NITROGEN 19 MG/DL (9-23); CALCIUM LEVEL 8.8 MG/DL (8.3-10.6); CARBON DIOXIDE LEVEL 26 MMOL/L (20-31); CHLORIDE LEVEL 98 MMOL/L (98-107); CREATININE FOR GFR 4.65 MG/DL (0.55-1.30); GLOMERULAR FILTRATION RATE 11.8 (>39); GLUCOSE, FASTING 317 MG/DL (74-106); POTASSIUM SERUM 4.2 MMOL/L (3.5-5.1); SALICYLATE LEVEL < 3.0 MG/DL (<30); SODIUM LEVEL 135 MMOL/L (136-145); TOTAL PROTEIN 6.9 G/DL (5.7-8.2)
[2022-09-29 00:40] LABS: THYROID STIMULATING HORMONE 4.162 uIU/ML (0.55-4.78)
[2022-09-29 00:57] LABS: BASO % 0.5 % (0.0-1.0); EOS % 0.1 % (0.0-3.0); HEMATOCRIT 34.4 % (36.0-47.0); HEMOGLOBIN 10.3 g/dl (12.0-15.5); LYMPH # 0.4 10^3/uL (1.5-5.0); LYMPH % 4.3 % (24.0-44.0); MEAN CORPUSCULAR HEMOGLOBIN 28.4 pg (27.0-33.0); MEAN CORPUSCULAR HGB CONC 29.9 g/dl (32.0-36.5); MEAN CORPUSCULAR VOLUME 94.8 fl (80.0-96.0); MONO # 0.7 10^3/uL (0.0-0.8); NEUTROPHILS # 7.2 10^3/uL (1.5-8.5); NEUTROPHILS % 86.5 % (36.0-66.0); PLATELET COUNT, AUTOMATED 155 10^3/uL (150-450); RED BLOOD COUNT 3.63 10^6/uL (4.00-5.40); WHITE BLOOD COUNT 8.3 10^3/uL (4.0-10.0)
[2022-09-29] MEDS ORDERED: GLUCAGON INJ 1MG VIAL SC PRN (05:55)
[2022-09-29] MEDS ORDERED: ACETAMINOPHEN TAB 650MG DOSE (2X325MG) PO PRN (05:55)
[2022-09-29] MEDS ORDERED: GLUCOSE 4GM CHEW TABLET PO PRN (05:55)
[2022-09-29] MEDS ORDERED: DEXTROSE 50% 50ML SYRINGE IV PRN (05:55)
[2022-09-29] MEDS ORDERED: INSULIN LISPRO (NovoLOG) PER UNIT SC SCH (06:00)
[2022-09-29] MEDS ORDERED: MED REC CURRENTLY UNOBTAINABLE XX SCH (07:00)
[2022-09-29 08:36] LABS: BASO % 0.4 % (0.0-1.0); EOS % 0.1 % (0.0-3.0); HEMATOCRIT 36.4 % (36.0-47.0); HEMOGLOBIN 10.8 g/dl (12.0-15.5); LYMPH # 0.6 10^3/uL (1.5-5.0); LYMPH % 8.6 % (24.0-44.0); MEAN CORPUSCULAR HEMOGLOBIN 28.1 pg (27.0-33.0); MEAN CORPUSCULAR HGB CONC 29.7 g/dl (32.0-36.5); MEAN CORPUSCULAR VOLUME 94.5 fl (80.0-96.0); MONO # 0.8 10^3/uL (0.0-0.8); MONO % 10.9 % (2.0-8.0); NEUTROPHILS # 5.5 10^3/uL (1.5-8.5); NEUTROPHILS % 79.6 % (36.0-66.0); PLATELET COUNT, AUTOMATED 143 10^3/uL (150-450); RED BLOOD COUNT 3.85 10^6/uL (4.00-5.40); WHITE BLOOD COUNT 6.9 10^3/uL (4.0-10.0)
[2022-09-29 08:41] LABS: CALCIUM LEVEL 8.7 MG/DL (8.3-10.6); CREATININE FOR GFR 5.49 MG/DL (0.55-1.30); GLOMERULAR FILTRATION RATE 9.7 (>39); POTASSIUM SERUM 4.5 MMOL/L (3.5-5.1)
[2022-09-29] MEDS ORDERED: METOPROLOL 5 MG/5 ML VIAL IV SCH (09:00)
[2022-09-29] MEDS: ASPIRIN 81MG CHEW TABLET PO SCH (09:00)
[2022-09-29] MEDS ORDERED: SEVE800T3 PO (09:49)
[2022-09-29] MEDS ORDERED: METO1TAB7 PO (09:49)
[2022-09-29] MEDS ORDERED: HOME MED LIST COMPLETE! XX SCH (09:50)
[2022-09-29] MEDS ORDERED: ALBUTEROL SULFATE 2.5MG/0.5ML INH NEB SOLN INH PRN (09:50)
[2022-09-29 11:26] LABS: HEMOGLOBIN A1c 9.1 % (4.0-6.0)
[2022-09-29 11:46] LABS: PROCALCITONIN 0.55 ng/ml
[2022-09-29] MEDS: INSULIN LISPRO (NovoLOG) PER UNIT SC SCH ×3 (12:00→20:41)
[2022-09-29] MEDS: METOPROLOL TART 25 MG TABLET PO SCH ×2 (12:59→20:31)
[2022-09-29] MEDS: (RENVELA) SEVELAMER **CARBONate** 800 MG TAB PO SCH ×2 (13:18→17:16)
[2022-09-29] MEDS: HEPARIN SOD (PORCINE) 5000UNITS/ML 1ML VIAL/SYRINGE SC SCH ×2 (13:18→20:34)
[2022-09-29 14:26] VITALS: BP 118/61; TEMP 97.1; O2SAT 97
[2022-09-29 16:58] VITALS: BP 117/55; TEMP 97; O2SAT 97
[2022-09-29] MEDS: cefTRIAXone SOD 1 GM in D5W MINI-BAG PLUS 50 ML IV SCH (17:16)
[2022-09-29 20:00] VITALS: BP 112/57; TEMP 96.8; O2SAT 93
[2022-09-29] MEDS: PANTOPRAZOLE 40MG VIAL IV SCH (20:29)
[2022-09-29] MEDS: ACETAMINOPHEN TAB 650MG DOSE (2X325MG) PO PRN (20:30)
[2022-09-29] MEDS: DOXYCYCLINE HYCLATE 100MG TABLET PO SCH (20:31)
[2022-09-30] VITALS (7 sets, daily range): BP systolic 103–156; BP diastolic 51–82; TEMP 96.8–97.8; O2SAT 92–100
[2022-09-30 05:25] LABS: BASO % 0.7 % (0.0-1.0); EOS % 0.2 % (0.0-3.0); HEMATOCRIT 37.4 % (36.0-47.0); HEMOGLOBIN 10.9 g/dl (12.0-15.5); LYMPH # 0.7 10^3/uL (1.5-5.0); LYMPH % 11.6 % (24.0-44.0); MEAN CORPUSCULAR HEMOGLOBIN 28.5 pg (27.0-33.0); MEAN CORPUSCULAR HGB CONC 29.1 g/dl (32.0-36.5); MEAN CORPUSCULAR VOLUME 97.7 fl (80.0-96.0); MONO # 0.7 10^3/uL (0.0-0.8); MONO % 12.5 % (2.0-8.0); NEUTROPHILS # 4.4 10^3/uL (1.5-8.5); NEUTROPHILS % 74.5 % (36.0-66.0); PLATELET COUNT, AUTOMATED 101 10^3/uL (150-450); RED BLOOD COUNT 3.83 10^6/uL (4.00-5.40); WHITE BLOOD COUNT 5.8 10^3/uL (4.0-10.0)
[2022-09-30 05:34] LABS: CALCIUM LEVEL 8.6 MG/DL (8.3-10.6); GLOMERULAR FILTRATION RATE 7.4 (>39); POTASSIUM SERUM 5.4 MMOL/L (3.5-5.1)
[2022-09-30] MEDS: (RENVELA) SEVELAMER **CARBONate** 800 MG TAB PO SCH ×3 (06:46→19:08)
[2022-09-30] MEDS ORDERED: HEPARIN 1,000UNITS/ML 10ML VIAL (FOR RADIOLOGY & DIALYSIS ONLY) IV PRN (07:20)
[2022-09-30] MEDS ORDERED: HEPARIN 1,000UNITS/ML 10ML VIAL (FOR RADIOLOGY & DIALYSIS ONLY) XX SCH (07:20)
[2022-09-30] MEDS ORDERED: LIDOCAINE 1% SDV 5ML VIAL SC PRN (07:20)
[2022-09-30] MEDS ORDERED: SODIUM CHLORIDE 0.9% 1000ML IV PRN (07:20)
[2022-09-30] MEDS: INSULIN LISPRO (NovoLOG) PER UNIT SC SCH ×4 (07:30→20:02)
[2022-09-30] MEDS: ASPIRIN 81MG CHEW TABLET PO SCH (08:54)
[2022-09-30] MEDS: DOXYCYCLINE HYCLATE 100MG TABLET PO SCH ×2 (08:54→21:48)
[2022-09-30] MEDS: METOPROLOL TART 25 MG TABLET PO SCH ×3 (08:55→17:38)
[2022-09-30] MEDS: HEPARIN SOD (PORCINE) 5000UNITS/ML 1ML VIAL/SYRINGE SC SCH ×2 (08:55→21:47)
[2022-09-30] MEDS ORDERED: METOPROLOL 5 MG/5 ML VIAL As Ordered ONE (17:06)
[2022-09-30] MEDS ORDERED: METOPROLOL 5 MG/5 ML VIAL IV STA ×2 (17:07→17:08)
[2022-09-30] MEDS ORDERED: NS 500 ML IV STA (17:18)
[2022-09-30] MEDS: cefTRIAXone SOD 1 GM in D5W MINI-BAG PLUS 50 ML IV SCH (19:08)
[2022-09-30 19:37] LABS: CALCIUM LEVEL 8.6 MG/DL (8.3-10.6); CREATININE FOR GFR 3.85 MG/DL (0.55-1.30); GLOMERULAR FILTRATION RATE 14.7 (>39); MAGNESIUM LEVEL 1.9 MG/DL (1.8-2.4); POTASSIUM SERUM 4.1 MMOL/L (3.5-5.1)
[2022-09-30] MEDS: PANTOPRAZOLE 40MG VIAL IV SCH (21:48)
[2022-10-01 00:05] VITALS: BP 125/61; TEMP 98.1; O2SAT 91
[2022-10-01] MEDS: METOPROLOL TART 25 MG TABLET PO SCH ×4 (00:57→21:00)
[2022-10-01] MEDS: ACETAMINOPHEN TAB 650MG DOSE (2X325MG) PO PRN ×2 (03:02→13:33)
[2022-10-01 05:20] VITALS: BP 112/59; TEMP 98.1; O2SAT 94
[2022-10-01 05:45] LABS: BASO % 0.3 % (0.0-1.0); HEMOGLOBIN 10.4 g/dl (12.0-15.5); LYMPH # 0.6 10^3/uL (1.5-5.0); LYMPH % 10.2 % (24.0-44.0); MEAN CORPUSCULAR HEMOGLOBIN 28.3 pg (27.0-33.0); MEAN CORPUSCULAR HGB CONC 30.6 g/dl (32.0-36.5); MEAN CORPUSCULAR VOLUME 92.4 fl (80.0-96.0); MONO # 0.7 10^3/uL (0.0-0.8); MONO % 11.5 % (2.0-8.0); NEUTROPHILS # 4.6 10^3/uL (1.5-8.5); NEUTROPHILS % 77.3 % (36.0-66.0); PLATELET COUNT, AUTOMATED 109 10^3/uL (150-450); RED BLOOD COUNT 3.68 10^6/uL (4.00-5.40); WHITE BLOOD COUNT 5.9 10^3/uL (4.0-10.0)
[2022-10-01 06:08] LABS: CALCIUM LEVEL 8.2 MG/DL (8.3-10.6); CREATININE FOR GFR 4.79 MG/DL (0.55-1.30); GLOMERULAR FILTRATION RATE 11.4 (>39); POTASSIUM SERUM 4.9 MMOL/L (3.5-5.1)
[2022-10-01 08:00] VITALS: BP 123/58; TEMP 97.6; O2SAT 92
[2022-10-01] MEDS: HEPARIN SOD (PORCINE) 5000UNITS/ML 1ML VIAL/SYRINGE SC SCH ×3 (09:00→20:57)
[2022-10-01] MEDS: (RENVELA) SEVELAMER **CARBONate** 800 MG TAB PO SCH ×3 (09:43→18:52)
[2022-10-01] MEDS: DOXYCYCLINE HYCLATE 100MG TABLET PO SCH ×2 (09:43→21:07)
[2022-10-01] MEDS: ASPIRIN 81MG CHEW TABLET PO SCH (09:43)
[2022-10-01] MEDS: INSULIN LISPRO (NovoLOG) PER UNIT SC SCH ×4 (09:43→20:58)
[2022-10-01 12:00] VITALS: BP 132/66; TEMP 97.4; O2SAT 97
[2022-10-01] MEDS: AUGMENTIN 500MG TAB PO SCH ×2 (13:35→21:07)
[2022-10-01 15:34] VITALS: BP 110/60; TEMP 98.6; O2SAT 94
[2022-10-01 21:00] VITALS: BP 103/51; TEMP 97.6; O2SAT 96
[2022-10-02] VITALS (7 sets, daily range): BP systolic 122–152; BP diastolic 65–75; TEMP 96.8–97.9; O2SAT 92–100
[2022-10-02 06:32] LABS: BASO % 0.3 % (0.0-1.0); HEMATOCRIT 36.6 % (36.0-47.0); HEMOGLOBIN 11.3 g/dl (12.0-15.5); LYMPH # 0.7 10^3/uL (1.5-5.0); MEAN CORPUSCULAR HGB CONC 30.9 g/dl (32.0-36.5); MEAN CORPUSCULAR VOLUME 90.6 fl (80.0-96.0); MONO # 0.8 10^3/uL (0.0-0.8); MONO % 10.4 % (2.0-8.0); NEUTROPHILS # 5.9 10^3/uL (1.5-8.5); NEUTROPHILS % 78.8 % (36.0-66.0); PLATELET COUNT, AUTOMATED 116 10^3/uL (150-450); RED BLOOD COUNT 4.04 10^6/uL (4.00-5.40); WHITE BLOOD COUNT 7.4 10^3/uL (4.0-10.0)
[2022-10-02] MEDS: METOPROLOL TART 25 MG TABLET PO SCH ×5 (06:38→22:32)
[2022-10-02 06:55] LABS: CALCIUM LEVEL 8.5 MG/DL (8.3-10.6); CREATININE FOR GFR 6.6 MG/DL (0.55-1.30); GLOMERULAR FILTRATION RATE 7.9 (>39); POTASSIUM SERUM 5.2 MMOL/L (3.5-5.1)
[2022-10-02] MEDS: INSULIN LISPRO (NovoLOG) PER UNIT SC SCH ×4 (07:30→20:38)
[2022-10-02] MEDS: HEPARIN SOD (PORCINE) 5000UNITS/ML 1ML VIAL/SYRINGE SC SCH ×2 (09:00→20:38)
[2022-10-02] MEDS: (RENVELA) SEVELAMER **CARBONate** 800 MG TAB PO SCH ×5 (09:08→18:08)
[2022-10-02] MEDS: AUGMENTIN 500MG TAB PO SCH ×2 (09:11→20:38)
[2022-10-02] MEDS: ASPIRIN 81MG CHEW TABLET PO SCH (09:11)
[2022-10-02] MEDS: DOXYCYCLINE HYCLATE 100MG TABLET PO SCH ×2 (09:11→20:38)
[2022-10-02] MEDS: LACTOBACILLUS ACIDOPHILUS CAP (BACID) PO SCH ×2 (10:09→18:08)
[2022-10-02] MEDS: PATIROMER SORBITEX CALCIUM 8.4 GM POWDER PACKET (VELTASSA) PO SCH (13:51)
[2022-10-03] MEDS ORDERED: COMBIVENT RESPIMAT 100-20MCG INHALER 4GM INH PRN (00:45)
[2022-10-03] MEDS: HEPARIN SOD (PORCINE) 5000UNITS/ML 1ML VIAL/SYRINGE SC SCH ×2 (05:57→19:49)
[2022-10-03 06:00] VITALS: BP 152/84; TEMP 97.2; O2SAT 99
[2022-10-03] MEDS ORDERED: HEPARIN 1,000UNITS/ML 10ML VIAL (FOR RADIOLOGY & DIALYSIS ONLY) IV PRN (06:00)
[2022-10-03] MEDS ORDERED: HEPARIN 1,000UNITS/ML 10ML VIAL (FOR RADIOLOGY & DIALYSIS ONLY) XX SCH (06:00)
[2022-10-03] MEDS ORDERED: SODIUM CHLORIDE 0.9% 1000ML IV PRN (06:00)
[2022-10-03] MEDS: METOPROLOL TART 25 MG TABLET PO SCH ×3 (06:05→21:09)
[2022-10-03] MEDS: (RENVELA) SEVELAMER **CARBONate** 800 MG TAB PO SCH ×3 (06:05→18:28)
[2022-10-03] MEDS: DOXYCYCLINE HYCLATE 100MG TABLET PO SCH ×2 (06:05→21:09)
[2022-10-03] MEDS: INSULIN LISPRO (NovoLOG) PER UNIT SC SCH ×4 (06:05→21:00)
[2022-10-03] MEDS: ASPIRIN 81MG CHEW TABLET PO SCH (06:05)
[2022-10-03] MEDS: AUGMENTIN 500MG TAB PO SCH ×2 (06:05→21:09)
[2022-10-03] MEDS: LACTOBACILLUS ACIDOPHILUS CAP (BACID) PO SCH ×2 (06:05→18:28)
[2022-10-03] MEDS: ACETAMINOPHEN TAB 650MG DOSE (2X325MG) PO PRN ×2 (08:22→16:38)
[2022-10-03 08:28] LABS: BASO % 0.3 % (0.0-1.0); EOS % 0.2 % (0.0-3.0); HEMATOCRIT 35.8 % (36.0-47.0); HEMOGLOBIN 11.3 g/dl (12.0-15.5); LYMPH # 0.7 10^3/uL (1.5-5.0); LYMPH % 11.4 % (24.0-44.0); MEAN CORPUSCULAR HEMOGLOBIN 28.6 pg (27.0-33.0); MEAN CORPUSCULAR HGB CONC 31.6 g/dl (32.0-36.5); MEAN CORPUSCULAR VOLUME 90.6 fl (80.0-96.0); MONO # 0.7 10^3/uL (0.0-0.8); MONO % 10.1 % (2.0-8.0); NEUTROPHILS # 4.9 10^3/uL (1.5-8.5); NEUTROPHILS % 76.8 % (36.0-66.0); PLATELET COUNT, AUTOMATED 118 10^3/uL (150-450); RED BLOOD COUNT 3.95 10^6/uL (4.00-5.40); WHITE BLOOD COUNT 6.4 10^3/uL (4.0-10.0)
[2022-10-03 09:02] LABS: CALCIUM LEVEL 8.4 MG/DL (8.3-10.6); CREATININE FOR GFR 8.88 MG/DL (0.55-1.30); GLOMERULAR FILTRATION RATE 5.6 (>39); MAGNESIUM LEVEL 2.2 MG/DL (1.8-2.4); POTASSIUM SERUM 4.7 MMOL/L (3.5-5.1)
[2022-10-03] MEDS: PATIROMER SORBITEX CALCIUM 8.4 GM POWDER PACKET (VELTASSA) PO SCH (13:42)
[2022-10-03 14:00] VITALS: BP 152/84; TEMP 97.7; O2SAT 97
[2022-10-03] MEDS ORDERED: LIDOCAINE 5% (LIDODERM) PATCH TD ONE (15:55)
[2022-10-03] MEDS: amLODIPine 5 MG TAB PO SCH (16:38)
[2022-10-03 21:07] VITALS: BP 123/60; TEMP 97.7; O2SAT 96
[2022-10-03 22:00] VITALS: BP 123/60; TEMP 97.7; O2SAT 96
[2022-10-04 05:51] VITALS: BP 103/49; TEMP 97.3; O2SAT 100
[2022-10-04] MEDS: METOPROLOL TART 25 MG TABLET PO SCH ×3 (06:00→21:57)
[2022-10-04 06:34] LABS: BASO % 0.5 % (0.0-1.0); EOS % 0.5 % (0.0-3.0); HEMATOCRIT 38.1 % (36.0-47.0); HEMOGLOBIN 11.6 g/dl (12.0-15.5); LYMPH # 0.7 10^3/uL (1.5-5.0); LYMPH % 10.6 % (24.0-44.0); MEAN CORPUSCULAR HEMOGLOBIN 27.8 pg (27.0-33.0); MEAN CORPUSCULAR HGB CONC 30.4 g/dl (32.0-36.5); MEAN CORPUSCULAR VOLUME 91.4 fl (80.0-96.0); MONO # 0.6 10^3/uL (0.0-0.8); NEUTROPHILS # 4.8 10^3/uL (1.5-8.5); NEUTROPHILS % 78.4 % (36.0-66.0); PLATELET COUNT, AUTOMATED 125 10^3/uL (150-450); RED BLOOD COUNT 4.17 10^6/uL (4.00-5.40); WHITE BLOOD COUNT 6.1 10^3/uL (4.0-10.0)
[2022-10-04 06:47] LABS: CREATININE FOR GFR 5.97 MG/DL (0.55-1.30); GLOMERULAR FILTRATION RATE 8.8 (>39); POTASSIUM SERUM 3.8 MMOL/L (3.5-5.1)
[2022-10-04 07:20] VITALS: BP 130/61; TEMP 97.3; O2SAT 98
[2022-10-04] MEDS: (RENVELA) SEVELAMER **CARBONate** 800 MG TAB PO SCH ×3 (08:55→17:53)
[2022-10-04] MEDS: ASPIRIN 81MG CHEW TABLET PO SCH (08:55)
[2022-10-04] MEDS: INSULIN LISPRO (NovoLOG) PER UNIT SC SCH ×4 (08:55→21:00)
[2022-10-04] MEDS: LACTOBACILLUS ACIDOPHILUS CAP (BACID) PO SCH ×2 (08:55→17:53)
[2022-10-04] MEDS: amLODIPine 5 MG TAB PO SCH (08:55)
[2022-10-04] MEDS: HEPARIN SOD (PORCINE) 5000UNITS/ML 1ML VIAL/SYRINGE SC SCH ×2 (08:55→21:00)
[2022-10-04] MEDS: DOXYCYCLINE HYCLATE 100MG TABLET PO SCH (08:55)
[2022-10-04 14:00] VITALS: BP 104/46; TEMP 97.3; O2SAT 96
[2022-10-04 20:00] VITALS: BP 103/53; TEMP 97.9; O2SAT 96
[2022-10-05] MEDS: ASPIRIN 81MG CHEW TABLET PO SCH (05:03)
[2022-10-05] MEDS: (RENVELA) SEVELAMER **CARBONate** 800 MG TAB PO SCH ×3 (05:03→17:49)
[2022-10-05] MEDS: ACETAMINOPHEN TAB 650MG DOSE (2X325MG) PO PRN (05:03)
[2022-10-05] MEDS: LACTOBACILLUS ACIDOPHILUS CAP (BACID) PO SCH ×2 (05:03→17:49)
[2022-10-05] MEDS: amLODIPine 5 MG TAB PO SCH (05:04)
[2022-10-05] MEDS: METOPROLOL TART 25 MG TABLET PO SCH ×3 (05:04→21:26)
[2022-10-05 06:00] VITALS: BP 121/55; TEMP 97.7; O2SAT 100
[2022-10-05] MEDS ORDERED: HEPARIN 1,000UNITS/ML 10ML VIAL (FOR RADIOLOGY & DIALYSIS ONLY) XX SCH (06:00)
[2022-10-05] MEDS ORDERED: HEPARIN 1,000UNITS/ML 10ML VIAL (FOR RADIOLOGY & DIALYSIS ONLY) IV PRN (06:00)
[2022-10-05] MEDS ORDERED: SODIUM CHLORIDE 0.9% 1000ML IV PRN (06:00)
[2022-10-05 06:16] LABS: BASO % 0.4 % (0.0-1.0); EOS # 0.1 10^3/uL (0.0-0.5); HEMATOCRIT 36.7 % (36.0-47.0); HEMOGLOBIN 11.5 g/dl (12.0-15.5); LYMPH # 0.9 10^3/uL (1.5-5.0); LYMPH % 18.3 % (24.0-44.0); MEAN CORPUSCULAR HEMOGLOBIN 28.6 pg (27.0-33.0); MEAN CORPUSCULAR HGB CONC 31.3 g/dl (32.0-36.5); MEAN CORPUSCULAR VOLUME 91.3 fl (80.0-96.0); MONO # 0.5 10^3/uL (0.0-0.8); MONO % 9.7 % (2.0-8.0); NEUTROPHILS # 3.5 10^3/uL (1.5-8.5); NEUTROPHILS % 69.6 % (36.0-66.0); PLATELET COUNT, AUTOMATED 135 10^3/uL (150-450); RED BLOOD COUNT 4.02 10^6/uL (4.00-5.40); WHITE BLOOD COUNT 5.1 10^3/uL (4.0-10.0)
[2022-10-05 06:45] LABS: CREATININE FOR GFR 7.8 MG/DL (0.55-1.30); GLOMERULAR FILTRATION RATE 6.5 (>39)
[2022-10-05] MEDS: INSULIN LISPRO (NovoLOG) PER UNIT SC SCH ×4 (07:30→21:00)
[2022-10-05] MEDS: HEPARIN SOD (PORCINE) 5000UNITS/ML 1ML VIAL/SYRINGE SC SCH ×2 (07:32→21:00)
[2022-10-05 14:00] VITALS: BP 113/57; TEMP 97.5; O2SAT 94
[2022-10-05] MEDS ORDERED: RAMELTEON 8 MG TAB (ROZEREM) PO PRN (21:30)
[2022-10-06] MEDS ORDERED: ONDANSETRON 4MG 2ML VIAL IV PRN (04:00)
[2022-10-06] MEDS: traMADol 50 MG TAB PO PRN (04:21)
[2022-10-06] MEDS: METOPROLOL TART 25 MG TABLET PO SCH ×3 (05:56→21:31)
[2022-10-06 06:00] VITALS: BP 105/48; TEMP 97.4; O2SAT 95
[2022-10-06] MEDS: INSULIN LISPRO (NovoLOG) PER UNIT SC SCH ×4 (07:30→21:00)
[2022-10-06] MEDS: HEPARIN SOD (PORCINE) 5000UNITS/ML 1ML VIAL/SYRINGE SC SCH ×3 (08:21→21:00)
[2022-10-06] MEDS: LACTOBACILLUS ACIDOPHILUS CAP (BACID) PO SCH ×2 (08:21→17:59)
[2022-10-06] MEDS: ASPIRIN 81MG CHEW TABLET PO SCH (08:21)
[2022-10-06] MEDS: (RENVELA) SEVELAMER **CARBONate** 800 MG TAB PO SCH ×3 (08:21→17:59)
[2022-10-06] MEDS: amLODIPine 5 MG TAB PO SCH (09:00)
[2022-10-07] MEDS: METOPROLOL TART 25 MG TABLET PO SCH ×3 (05:40→21:50)
[2022-10-07] MEDS ORDERED: SODIUM CHLORIDE 0.9% 1000ML IV PRN (06:00)
[2022-10-07] MEDS ORDERED: HEPARIN 1,000UNITS/ML 10ML VIAL (FOR RADIOLOGY & DIALYSIS ONLY) IV PRN (06:00)
[2022-10-07] MEDS ORDERED: HEPARIN 1,000UNITS/ML 10ML VIAL (FOR RADIOLOGY & DIALYSIS ONLY) XX SCH (06:00)
[2022-10-07 06:15] VITALS: BP 97/56; TEMP 97.5; O2SAT 93
[2022-10-07] MEDS: LACTOBACILLUS ACIDOPHILUS CAP (BACID) PO SCH ×2 (06:25→17:17)
[2022-10-07] MEDS: amLODIPine 5 MG TAB PO SCH (06:25)
[2022-10-07] MEDS: ASPIRIN 81MG CHEW TABLET PO SCH (06:25)
[2022-10-07] MEDS: (RENVELA) SEVELAMER **CARBONate** 800 MG TAB PO SCH ×3 (06:25→17:18)
[2022-10-07] MEDS: HEPARIN SOD (PORCINE) 5000UNITS/ML 1ML VIAL/SYRINGE SC SCH ×2 (06:27→21:00)
[2022-10-07] MEDS: INSULIN LISPRO (NovoLOG) PER UNIT SC SCH ×4 (07:41→21:00)
[2022-10-07] MEDS ORDERED: MORPHINE 2 MG/ML 1ML VIAL IV ONE (10:50)
[2022-10-07] MEDS: traMADol 50 MG TAB PO PRN (11:39)
[2022-10-08 06:00] VITALS: BP 120/52; TEMP 97.5; O2SAT 94
[2022-10-08] MEDS: METOPROLOL TART 25 MG TABLET PO SCH ×3 (06:17→22:26)
[2022-10-08] MEDS: amLODIPine 5 MG TAB PO SCH (09:00)
[2022-10-08] MEDS: HEPARIN SOD (PORCINE) 5000UNITS/ML 1ML VIAL/SYRINGE SC SCH ×3 (09:00→21:00)
[2022-10-08] MEDS: INSULIN LISPRO (NovoLOG) PER UNIT SC SCH ×4 (09:09→21:00)
[2022-10-08] MEDS: ASPIRIN 81MG CHEW TABLET PO SCH (09:10)
[2022-10-08] MEDS: (RENVELA) SEVELAMER **CARBONate** 800 MG TAB PO SCH ×3 (09:10→18:27)
[2022-10-08] MEDS: LACTOBACILLUS ACIDOPHILUS CAP (BACID) PO SCH ×2 (09:10→18:27)
[2022-10-08 20:00] VITALS: BP 144/61; TEMP 97.5; O2SAT 99
[2022-10-09] MEDS: METOPROLOL TART 25 MG TABLET PO SCH ×3 (06:12→22:22)
[2022-10-09] MEDS: INSULIN LISPRO (NovoLOG) PER UNIT SC SCH ×4 (07:30→22:22)
[2022-10-09] MEDS: HEPARIN SOD (PORCINE) 5000UNITS/ML 1ML VIAL/SYRINGE SC SCH ×2 (09:00→20:37)
[2022-10-09] MEDS: DIAPER RELIEF PASTE (DESITIN) 60GM TOP SCH (09:00)
[2022-10-09] MEDS: LACTOBACILLUS ACIDOPHILUS CAP (BACID) PO SCH ×2 (10:02→18:32)
[2022-10-09] MEDS: ASPIRIN 81MG CHEW TABLET PO SCH (10:02)
[2022-10-09] MEDS: (RENVELA) SEVELAMER **CARBONate** 800 MG TAB PO SCH ×3 (10:02→18:32)
[2022-10-09 10:06] VITALS: BP 129/59
[2022-10-09] MEDS: amLODIPine 5 MG TAB PO SCH (10:16)
[2022-10-10] MEDS: DIAPER RELIEF PASTE (DESITIN) 60GM TOP SCH (05:59)
[2022-10-10] MEDS: ASPIRIN 81MG CHEW TABLET PO SCH (06:00)
[2022-10-10] MEDS: METOPROLOL TART 25 MG TABLET PO SCH ×3 (06:00→20:53)
[2022-10-10] MEDS: amLODIPine 5 MG TAB PO SCH (06:00)
[2022-10-10] MEDS: LACTOBACILLUS ACIDOPHILUS CAP (BACID) PO SCH ×2 (06:00→17:36)
[2022-10-10] MEDS: (RENVELA) SEVELAMER **CARBONate** 800 MG TAB PO SCH ×3 (06:00→17:37)
[2022-10-10 06:04] VITALS: BP 123/52; TEMP 98.1; O2SAT 96
[2022-10-10] MEDS: HEPARIN SOD (PORCINE) 5000UNITS/ML 1ML VIAL/SYRINGE SC SCH ×2 (06:04→20:29)
[2022-10-10] MEDS: INSULIN LISPRO (NovoLOG) PER UNIT SC SCH ×4 (06:04→20:30)
[2022-10-10] MEDS ORDERED: HEPARIN 1,000UNITS/ML 10ML VIAL (FOR RADIOLOGY & DIALYSIS ONLY) XX SCH (06:05)
[2022-10-10] MEDS ORDERED: SODIUM CHLORIDE 0.9% 1000ML IV PRN (06:05)
[2022-10-10] MEDS ORDERED: LIDOCAINE 1% SDV 5ML VIAL SC PRN (06:05)
[2022-10-10] MEDS ORDERED: HEPARIN 1,000UNITS/ML 10ML VIAL (FOR RADIOLOGY & DIALYSIS ONLY) IV PRN (06:05)
[2022-10-10 13:11] LABS: HEMATOCRIT 34.2 % (36.0-47.0); HEMOGLOBIN 10.9 g/dl (12.0-15.5); MEAN CORPUSCULAR HEMOGLOBIN 29.2 pg (27.0-33.0); MEAN CORPUSCULAR HGB CONC 31.9 g/dl (32.0-36.5); MEAN CORPUSCULAR VOLUME 91.7 fl (80.0-96.0); PLATELET COUNT, AUTOMATED 187 10^3/uL (150-450); RED BLOOD COUNT 3.73 10^6/uL (4.00-5.40); WHITE BLOOD COUNT 8.1 10^3/uL (4.0-10.0)
[2022-10-10 13:37] LABS: ALBUMIN 2.7 G/DL (3.2-5.2); CALCIUM LEVEL 8.2 MG/DL (8.3-10.6); CREATININE FOR GFR 9.11 MG/DL (0.55-1.30); GLOMERULAR FILTRATION RATE 5.4 (>39); PHOSPHORUS LEVEL 4.3 MG/DL (2.4-5.1); POTASSIUM SERUM 4.8 MMOL/L (3.5-5.1)
[2022-10-11] MEDS: METOPROLOL TART 25 MG TABLET PO SCH (05:43)
[2022-10-11 05:55] VITALS: BP 141/74; TEMP 97.7; O2SAT 98
[2022-10-11 06:47] LABS: HEMATOCRIT 40.7 % (36.0-47.0); HEMOGLOBIN 12.4 g/dl (12.0-15.5); MEAN CORPUSCULAR HEMOGLOBIN 28.7 pg (27.0-33.0); MEAN CORPUSCULAR HGB CONC 30.5 g/dl (32.0-36.5); MEAN CORPUSCULAR VOLUME 94.2 fl (80.0-96.0); PLATELET COUNT, AUTOMATED 203 10^3/uL (150-450); RED BLOOD COUNT 4.32 10^6/uL (4.00-5.40); WHITE BLOOD COUNT 6.5 10^3/uL (4.0-10.0)
[2022-10-11 07:21] LABS: CALCIUM LEVEL 8.5 MG/DL (8.3-10.6); CREATININE FOR GFR 6.23 MG/DL (0.55-1.30); GLOMERULAR FILTRATION RATE 8.4 (>39); POTASSIUM SERUM 4.7 MMOL/L (3.5-5.1)
[2022-10-11] MEDS: INSULIN LISPRO (NovoLOG) PER UNIT SC SCH ×2 (07:30→12:00)
[2022-10-11 07:46] LABS: INR 1.18; PROTHROMBIN TIME 14.7 SECONDS (12.5-14.5)
[2022-10-11 07:47] LABS: PARTIAL THROMBOPLASTIN TIME 29.7 SECONDS (24.8-34.2)
[2022-10-11] MEDS: HEPARIN SOD (PORCINE) 5000UNITS/ML 1ML VIAL/SYRINGE SC SCH (08:35)
[2022-10-11] MEDS: LACTOBACILLUS ACIDOPHILUS CAP (BACID) PO SCH (09:20)
[2022-10-11] MEDS: DIAPER RELIEF PASTE (DESITIN) 60GM TOP SCH (09:20)
[2022-10-11] MEDS: (RENVELA) SEVELAMER **CARBONate** 800 MG TAB PO SCH ×2 (09:20→13:15)
[2022-10-11 09:21] VITALS: BP 141/74
[2022-10-11] MEDS: amLODIPine 5 MG TAB PO SCH (09:21)
[2022-10-11] MEDS: ASPIRIN 81MG CHEW TABLET PO SCH (09:21)
[2022-10-11] MEDS ORDERED: AMLO1TAB24 PO (10:50)
[2022-10-11] MEDS ORDERED: ASPI81CH8 PO (10:50)
[2022-10-11] MEDS ORDERED: METO1TAB33 PO (10:50)
== END 2022-10-11 13:54 | disposition home health service (06) | DRG 70 ==
LOC: M ED 23:32 → EDBD 23:32 → M ED INP 09-29 05:52 → M PCU 09-29 14:30 → M MSPAV 10-02 23:13
PROVIDERS: ADMIT Internal Medicine; ATTEND Student in an Organized Health Care Education/Training Program
PROC: 5A1D70Z Performance of Urinary Filtration, Intermittent, Less than 6 Hours Per Day (ICD-10-PCS; principal; 2022-09-30)
DX: G93.41 Metabolic encephalopathy (principal); U07.1 COVID-19; N18.6 End stage renal disease; J12.82 Pneumonia due to coronavirus disease 2019; I50.42 Chronic combined systolic (congestive) and diastolic (congestive) heart failure; I47.20 Ventricular tachycardia, unspecified; I13.2 Hypertensive heart and chronic kidney disease with heart failure and with stage 5 chronic kidney disease, or end stage renal disease; I69.351 Hemiplegia and hemiparesis following cerebral infarction affecting right dominant side; N25.81 Secondary hyperparathyroidism of renal origin; J90 Pleural effusion, not elsewhere classified; I42.9 Cardiomyopathy, unspecified; I25.10 Atherosclerotic heart disease of native coronary artery without angina pectoris; I69.328 Other speech and language deficits following cerebral infarction; E11.22 Type 2 diabetes mellitus with diabetic chronic kidney disease; D63.1 Anemia in chronic kidney disease; E11.51 Type 2 diabetes mellitus with diabetic peripheral angiopathy without gangrene; I73.9 Peripheral vascular disease, unspecified; I25.2 Old myocardial infarction; I34.0 Nonrheumatic mitral (valve) insufficiency; E78.5 Hyperlipidemia, unspecified; G47.33 Obstructive sleep apnea (adult) (pediatric); M48.00 Spinal stenosis, site unspecified; K21.9 Gastro-esophageal reflux disease without esophagitis; Z79.82 Long term (current) use of aspirin; Z79.899 Other long term (current) drug therapy; Z88.8 Allergy status to other drugs, medicaments and biological substances; Z95.5 Presence of coronary angioplasty implant and graft; Z99.2 Dependence on renal dialysis; Z87.891 Personal history of nicotine dependence; E87.5 Hyperkalemia; E83.51 Hypocalcemia